=== PATIENT | male | born 1970 | race Caucasian/White ===

== ENCOUNTER 2016-03-24 01:59 | Inpatient (IN) | payer OTHER ==
[2016-03-24] VITALS (28 sets, daily range): BP systolic 140–178; BP diastolic 70–83; PULSE 82–93; TEMP 36.5–37.7; O2SAT 86–95; Ht 177.8 cm; Wt 112.8 kg
[~2016-03-24] VITALS: Ht 177.8 cm; Wt 112.8 kg
[2016-03-24] MEDS ORDERED: INSU1.2I SQ (03:07)
[2016-03-24] MEDS ORDERED: LABE1TAB28 PO (03:07)
[2016-03-24] MEDS ORDERED: PLV75 PO (03:07)
[2016-03-24] MEDS ORDERED: APR25 PO (03:07)
[2016-03-24] MEDS ORDERED: ATOR-26 PO (03:07)
[2016-03-24] MEDS ORDERED: FAMO20TA11 PO (03:07)
[2016-03-24] MEDS ORDERED: NRV/10 PO (03:07)
[2016-03-24] MEDS ORDERED: ASPI-435 PO (03:07)
[2016-03-24] MEDS ORDERED: SODI650T8 (03:07)
[2016-03-24] MEDS ORDERED: ACETAMINOPHEN 325 MG TAB PO PRN (03:15)
[2016-03-24] MEDS ORDERED: POLYETHYLENE (MIRALAX) 17 GM PACK PO PRN (03:15)
[2016-03-24] MEDS ORDERED: NITROGLYCERIN 0.4 MG SL PER TAB CHARGE SL PRN (03:15)
[2016-03-24] MEDS ORDERED: ALUMINUM/MAGNESIUM/SIMETH (MAALOX MAX) 30 ML UDC PO PRN (03:15)
[2016-03-24] MEDS ORDERED: MAGNESIUM HYDROXIDE SUSP 30 ML UDC PO PRN (03:15)
[2016-03-24] MEDS ORDERED: ONDANSETRON INJ 2 MG/ML 2 ML VIAL IV PRN (03:15)
[2016-03-24] MEDS ORDERED: ALBUT/IPRATROP 3MG/0.5MG NEB 3 ML VIAL INH ONE (03:36)
--- NOTE | 2016-03-24 03:36 | History and Physical ---
History & Physical Date & Time of Service: Mar 24, 2016 at 03:20 Chief Complaint: Hypoxia, Chf, Pneumonia Primary Care Physician: No Doctor, Assigned History of Present Illness Source: patient Ryna Walker is a 45 year old male with type 2 diabetes, CKD (reports last eGFR was 19, had mapping for dialysis), CAD s/p cardiac stents 6 months ago, who presents via [facility] for evaluation of his shortness of breath / CHF exacerbation and nephrology expertise. He was recently admitted to [facility] for a week and was discharged last Sunday. After discharge, he went home, and reportedly became more short of breath and dizzy. He then went back to [facility] yesterday and was given Lasix 40mg IV and Levaquin 750mg IV. His creatinine was found to be 4.8 with a eGFR of 14. His hemoglobin was 8.4 and MCV 83. His Troponin was 0.029 and CPK 599 with a CKMB of 9.3. He was apparently saturating in the high 70%s on room air and this was improved to the low 90's on 6L nasal cannula. His BNP was 4528. He was transferred to [facility] due to lack of beds at [facility] and need for Nephrology consultation. He reports during his hospital admission he had a colonoscopy to evaluate for a cause of persistent diarrhea. He reports he had three episodes of C Diff in the last year or so, but a colonoscopy was contra-indicated at that time, so had it last week. When drinking contrast he was found to have worsening renal function. He does not remember other details but he apparently was started on Labetalol and Sodium bicarbonate tablets. His BP regime also includes amlodipine. Currently, he reports his breathing feels well. He denies any chest pain, abdominal pain, or urinary issues. Past Medical/Surgical History PMHx: T2DM Hypertension Hyperlipidemia CKD stage V Coronary artery disease s/p cardiac stents PSHx: "Foot surgery" Family History Father from [place], Mother from stroke. Both in their 60s. Social History Smoking Status: Former Smoker Marital Status: in relationship Allergies Coded Allergies: Codeine (Verified Adverse Reaction, Unknown, DELIRIUM, 03/24/16) PT REPORTS AGGRESSIVE BEHAVIORS. Home Medications Scheduled Atorvastatin (Lipitor), 80 MG PO DAILY Hydralazine Hcl (Apresoline), 25 MG PO TID Miscellaneous Medications Amlodipine Besylate (Amlodipine Besylate) Aspirin (Aspirin 81) Clopidogrel Bisulfate (Clopidogrel) Famotidine (Pepcid), 20 MG PO Insulin Glargine (Toujeo Solostar) Labetalol (Normodyne), 200 MG PO Sodium Bicarbonate (Sodium Bicarbonate) Review of Systems See HPI for pertinent positives & negatives. A total of 10 systems reviewed and were otherwise negative. Physical Exam Vital Signs Date Time Temp Pulse Resp B/P Pulse Ox O2 Delivery O2 Flow Rate FiO2 03/24/16 02:28 36.7 86 24 140/81 93 Nasal Cannula 5.0 General Appearance: WD/WN, no apparent distress, + obese Head: normocephalic, atraumatic Eyes: normal inspection ENT: hearing grossly normal Neck: supple, no JVD Respiratory/Chest: lungs clear, normal breath sounds, no respiratory distress, no accessory muscle use, + pertinent finding (on 6L) Cardiovascular: regular rate, rhythm, no murmur Abdomen/GI: normal bowel sounds, non tender, soft Back: no CVA tenderness, no muscle spasm Extremities/Musculoskelatal: no calf tenderness, + pedal edema (+1) Neurologic/Psych: alert, normal mood/affect, oriented x 3 Skin: no rash Diagnostics Laboratory Results Results Past 24 Hours Test 03/24/16 03:18 Range/Units Diagnostic Radiology CXR in [facility] - sent to radiology but report says bilateral infiltrates and small pleural effusions Normal EKG Impression Assessment and Plan Acute on chronic renal insufficiency - Received 40mg IV Lasix in [place], will wait to give more - Nephrology consult - Repeat labs, monitor BMP - Likely needs dialysis in [place]/home area Shortness of breath - Pulmonary edema vs pneumonia - Received 750mg IV Levaquin - will hold off on further antibiotics for now. Blood cultures were drawn at [place]. - Wean O2 as able to - Duonebs - May consider chest CT / Pulm consult in future Coronary artery disease s/p two stents, with mild troponin elevation. - Trend cardiac enzymes - Cardiac monitoring - Echo - Cardiology consult - Continue aspirin 81mg and plavix 75mg - Continue statin Type 2 DM - Glycemic consult - Lantus and sliding scale - BSG AC/HS FULL CODE HEPARIN, SCDs TELEMETRY Advanced Directives Existing Advance Directive: No Existing Living Will: No Existing Power of Cigar Packer: No VTE Prophylaxis VTE Risk Assessment Done? Y/N: Yes Risk Level: Moderate Resident Tracking Resident Involvement: Resident Care Provided Care Provided: Adult [facility] Assessment and Plan Attending Addendum: I have seen and examined this patient, have directed their medical care, have supervised the medical liaison, and agree with the H&P as noted above with the additions as noted below. History of Present Illness: The patient is a 45-year-old male with a past medical history of diabetes mellitus, CKD with recent vein mapping for potential dialysis, coronary artery disease status post 2 cardiac stents 6 months ago in [facility], who was accepted in transfer from [facility] after presenting there with shortness of breath and hypoxia with pulse ox into the 70s on room air, thought secondary to CHF and pneumonia. Prior to discharge in [facility] received Lasix 40 mg IV and Levaquin 750 mg IV. [facility] there included a hemoglobin of 8.4, creatinine 4.8, GFR 14, troponin 0.029, CK of 599 and CK-MB of 9.3, BNP of 4528. He was titrated there to 6 L nasal cannula O2 with pulse ox in the low to mid 90s. He most recently had been admitted to [facility] for one week, during which time he had a colonoscopy due to persistent diarrhea, with a history of C. difficile 3 in the past. 3 days after discharge from [facility], is when his symptoms of shortness of breath occurred and prompted his visit to [facility]. He reports that he has not required nasal cannula oxygen in the past improve his oxygenation. Review of Systems: The patient denies chest pain, palpitations, cough, vision change, hearing change, sore throat, fevers, chills, sweats, weight change, fatigue, nausea, vomiting, abdominal pain, pelvic pain, blood in urine or stool, dysuria, urinary frequency or urgency, lightheadedness, dizziness, headache, memory loss , rash, abnormal bruising or bleeding, imbalance, focal weakness, numbness or tingling in arms or legs, arthralgias or myalgias, back or neck pain, night sweats, or allergy symptoms. The review of systems is otherwise negative other than for that already noted above, and at least 10 systems have been reviewed. Physical Exam: The patient is awake, well-developed and adequately nourished, alert and oriented 3, normocephalic and atraumatic, lying in bed and in no acute distress. HEENT--PERRL, EOMI, mucous membranes moist, and oropharynx normal. Neck--supple, no JVD or bruits, thyroid normal, trachea midline, no adenopathy. Heart--normal S1 and S2, no extra beats, no murmurs, rubs or gallops. Lungs--clear bilaterally with good air movement, no respiratory distress, no accessory muscle use. Abdomen--normal bowel sounds and soft, nontender and nondistended, no hernias or masses, no organomegaly. Extremities--no cyanosis, clubbing or edema. There are good distal pulses b/l. Dermatologic--normal skin turgor, normal color, warm and dry, no abnormal lymph nodes, no rash. Neurologic--cranial nerves II through XII grossly intact, motor and sensory examination normal. Rheumatologic--normal range of motion, nontender, muscles and joints. Psychiatric--normal affect. Assessment and Plan: Hypoxia--presently is on 6 L nasal cannula O2. This was felt to be a combination of CHF exacerbation and pneumonia. He received Lasix 40 mg IV and levofloxacin 750 mg IV in [place]. We will perform episode laboratories, order a portable chest x-ray, place on Xopenex with that for nebulizers to use every 6 hours while awake and every 2 hours when necessary. He looks quite comfortable at this point, and and therefore will not more aggressively treat until we get some additional data, including laboratories.. Chronic kidney disease/hypertension with recent vein mapping performed at [facility]. We'll consult nephrology for their opinion regarding present were future needs for dialysis. Continue current regimen of amlodipine 10 mg by mouth daily, labetalol 200 mg by mouth twice a day, clopidogrel 75 mg by mouth daily, hydralazine 25 mg by mouth 3 times a day, and aspirin 81 mg by mouth daily. Elevated troponin--he is being admitted to the telemetry unit for serial cardiac enzymes, cardiac rhythm monitoring and a 2-D echogram with Dopplers. We will consult cardiology. Diabetes mellitus--place on Accu-Cheks before meals and at bedtime with NovoLog coverage, consult pharmacy regarding Toujeo. Hypercholesterolemia--continue atorvastatin 80 mg by mouth daily.
[2016-03-24 03:44] LABS: URINE APPEARANCE CLEAR (CLEAR); URINE BILIRUBIN NEG (NEG); URINE COLOR YELLOW; URINE EPITHELIAL CELL AUTO 20-30 /lpf (0-5); URINE NITRITE NEG (NEG); URINE SPECIFIC GRAVITY 1.005 (1.000-1.030); UROBILINOGEN NEG (NEG)
[2016-03-24 03:45] LABS: MANUAL MICROSCOPIC REQUIRED? NO; REVIEW REQ? NO
[2016-03-24] MEDS ORDERED: PHARMACY GLYCEMIC MGMT CONSULT PRN (03:49)
[2016-03-24] MEDS: NITROGLYCERIN OINT 2% 1GM PACKET EXT SCH ×4 (04:21→21:21)
[2016-03-24] MEDS ORDERED: IV FLUIDS COMPLETED PRN (04:30)
[2016-03-24] MEDS ORDERED: GLUCAGON FOR INJ 1 MG VIAL SQ PRN (05:00)
[2016-03-24] MEDS ORDERED: GLUCOSE 10 TABS/TUBE PO PRN (05:00)
[2016-03-24] MEDS ORDERED: DEXTROSE 50% 50 ML SYR IV PRN (05:00)
[2016-03-24] MEDS ORDERED: GLUCOSE 40% GEL 15 GM TUBE PO PRN (05:00)
[2016-03-24 05:12] LABS: INFLUENZA A PCR Neg for Influ A (NEG); INFLUENZA B PCR Neg for Influ B (NEG)
[2016-03-24 06:57] LABS: BASO % 0.4 %; BASO ABS # 0.04 K/uL (0-0.2); EOS % 0.8 %; HEMATOCRIT 22.6 % (42-52); IG% 0.2 %; LYMPH % 7.1 %; LYMPH ABS # 0.72 K/uL (1.2-3.4); MEAN CELL VOLUME 81.3 fL (80-100); MEAN CORPUSCULAR HEMOGLOBIN 27.3 pg (25-34); MEAN CORPUSCULAR HGB CONC 33.6 g/dl (32-36); MONO % 9.9 %; NEUT % 81.6 %; PLATELET COUNT 198 K/uL (130-400); RED BLOOD COUNT 2.78 M/uL (4.7-6.1); WHITE BLOOD COUNT 10.09 K/uL (4.8-10.8)
[2016-03-24 07:04] LABS: PROTHROMBIN TIME (PATIENT) 11.1 SECONDS (9.0-12.0)
[2016-03-24 07:13] LABS: ESTIMATED AVERAGE GLUCOSE 169 mg/dl; HA1C FLAG Normal (Normal)
--- NOTE | 2016-03-24 07:25 | DIAGNOSTIC IMAGING REPORT ---
CHEST ONE VIEW PORTABLE CLINICAL HISTORY: Congestive heart failure post Lasix. COMPARISON STUDY: Chest radiograph March 23, 2016. FINDINGS: Lung volumes are normal. There is no pneumothorax. No pleural effusion is identified. Dense right perihilar opacity persists. Diffuse interstitial thickening has increased. Right upper lobe opacity is noted. IMPRESSION: Progression of diffuse interstitial thickening and multifocal bilateral airspace opacities with dense right perihilar airspace opacity. The findings favor pulmonary edema although bilateral pneumonia could appear similar. Radiographic follow up is recommended. Electronically signed by: Manolo Shelton M.D. 03/24/2016 7:24 AM Dictated Date/Time: 03/24/2016 7:23 AM
[2016-03-24] MEDS: ALBUT/IPRATROP 3MG/0.5MG NEB 3 ML VIAL INH SCH ×4 (07:32→19:54)
[2016-03-24 07:43] LABS: COMPLETE YES
[2016-03-24 07:46] LABS: ALB/GLOB RATIO 0.5 (0.9-2); BUN/CREATININE RATIO 11.2 (10-20); CALCIUM 7.8 mg/dl (8.5-10.1); CREATININE 4.7 mg/dl (0.60-1.40); POTASSIUM 5.3 mmol/L (3.5-5.1)
[2016-03-24] MEDS: ASPIRIN 81 MG ECTAB PO SCH (07:57)
[2016-03-24] MEDS: SODIUM BICARBONATE 650 MG TAB PO SCH (07:57)
[2016-03-24] MEDS: FAMOTIDINE 20 MG TAB PO SCH (07:57)
[2016-03-24] MEDS: CLOPIDOGREL BISULFATE 75 MG TAB PO SCH (07:57)
[2016-03-24] MEDS: LABETALOL HCL 200 MG TAB PO SCH (07:58)
[2016-03-24] MEDS: AMLODIPINE BESYLATE 5 MG TAB PO SCH (07:58)
[2016-03-24] MEDS: ATORVASTATIN 40 MG TAB PO SCH (07:58)
[2016-03-24] MEDS: INSULIN ASPART 100 UNITS/ML 3 ML PEN SC SCH ×4 (07:59→21:23)
[2016-03-24] MEDS ORDERED: INSULIN GLARGINE SOLOSTAR 100 UNITS/ML 3 ML PEN SC SCH (09:00)
--- NOTE | 2016-03-24 09:44 | Pharmacy Progress Note ---
Glycemic Control Intl Consult Date of Service Mar 24, 2016. Scope Glycemic Pharmacist consulted by Dr Martinez on 03/24/16 for glycemic control and to write orders per [facility] inpatient glycemic control protocol Objective Weight (Kilograms): 119.000 Accuchecks BSG (last 24hrs): Test 03/24/16 05:56 03/24/16 06:03 Random Glucose 153 mg/dl (70-99) Bedside Glucose 155 mg/dl (70-99) Laboratory Data (last 24hrs) Test 03/24/16 05:56 Anion Gap 10.0 mmol/L BUN/Creatinine Ratio 11.2 Blood Urea Nitrogen 53 mg/dl Creatinine 4.70 mg/dl Hemoglobin A1c 7.5 % Potassium Level 5.3 mmol/L Sodium Level 138 mmol/L White Blood Count 10.09 K/uL Red Blood Count 2.78 M/uL Hemoglobin 7.6 g/dL Hematocrit 22.6 % Mean Corpuscular Volume 81.3 fL Mean Corpuscular Hemoglobin 27.3 pg Mean Corpuscular Hemoglobin Concent 33.6 g/dl Platelet Count 198 K/uL Mean Platelet Volume 10.0 fL Neutrophils (%) (Auto) 81.6 % Lymphocytes (%) (Auto) 7.1 % Monocytes (%) (Auto) 9.9 % Eosinophils (%) (Auto) 0.8 % Basophils (%) (Auto) 0.4 % Neutrophils # (Auto) 8.23 K/uL Lymphocytes # (Auto) 0.72 K/uL Monocytes # (Auto) 1.00 K/uL Eosinophils # (Auto) 0.08 K/uL Basophils # (Auto) 0.04 K/uL HbA1c Test 03/24/16 05:56 Hemoglobin A1c 7.5 % (4.5-5.6) H Recent Pertinent Medications Outpatient Anti-diabetic Regimen: * Toujeo 80 units SQ QAM * A1c = 7.5 % 03/24/16 Risk Factors for Insulin Resistance: * Diet: Type 2 DM/ Renal/ Low Na Assessment & Plan ASSESSMENT: * ADA & AACE recommend a goal blood sugar range 140-180 mg/dl for the majority of critically ill & non-critically ill patients. However, more stringent targets may be selected in individual cases. Goal 110-140mg/dl for patient's age and A1c. * Type 2 diabetic admitted with SOB, pulmonary edema vs pneumonia. On Toujeo at home, non-formulary, will change patient to Lantus and Novolog. * Recent admission to [facility] last week. PMH = CKD, SCr=4.7mg/dL, CAD s /p cardiac stents 6 mo ago. PLAN FOR INPATIENT GLYCEMIC CONTROL: * Basal insulin with LANTUS 64 units SQ x1 today (80% of Toujeo dose for first dose of Lantus), then, * Lantus 80 units SQ daily starting tomorrow morning * Correctional Insulin with NOVOLOG per scale ACHS or Q6hrs while NPO * Goal Range: Low 110 mg/dL - High 140 mg/dL * Correction Factor: 20 mg/dL/unit * Nutritional / Prandial insulin per carb ratio of 1 unit per 7 grams CHO consumed * Please note that the plan above was derived based on current level of insulin resistance and hospital stress. These recommendations are appropriate for inpatient admission only. Plan of care upon discharge will need to be reassessed to avoid potential outpatient hypo/hyperglycemia. Thank you.
[2016-03-24] MEDS ORDERED: FUROSEMIDE INJ 80 MG in SYRINGE 0 ML IV SCH (10:15)
[2016-03-24] MEDS: PERFLUTREN LIPID MICROSPHERE (DEFINITY) IV ONE ×2 (10:33→10:34)
[2016-03-24] MEDS ORDERED: PERFLUTREN LIPID MICROSPHERE (DEFINITY) IV ONE (10:46)
--- NOTE | 2016-03-24 10:50 | Nephrology Consultation ---
Nephrology Consultation Date & Providers Date of Consultation: Mar 24, 2016. Primary Care Provider: Naima Doctor, Assigned Referring Provider: Reason for Consultation Evaluate need to start HD in this patient with advanced diabetic nephropathy History of Present Illness Mr. Walker is a 45 year old white male who is seen at the request of Dr. Martinez to assess the need to start HD. 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 He has been poorly compliant with his insulin therapy. Medical records in office EMR from 2014 show that his BSG had averaged 300 mg/ dl. His serum creatinine at that time was 2.2. Mr. Walker has HTN, obesity, hyperlipidemia, hypercholesterolemia, asthma, recurrent READ and h/o clostridium difficile colitis. Mr. Walker resides in [place], [place]. His PCP is Dr. Stanley Epps. Recently he established nephrology care with Dr. Cain ([facility] in [place], [place]). He was told that his kidney function was 19%. He completed vein mapping for an AVF and began discussing home dialysis options. Mr. Walker states that over the last two weeks he began to experience diarrhea. He had laboratory studies performed by Dr. Cain and was then contacted at home and advised to proceed to the nearest hospital. Patient went to [facility] but then left the ED to be evaluated at [facility]. He reports that he was hydrated and kidney function improved. Colonoscopy was performed. Two benign polyps were removed. The patient was discharged to home. The next day he became progressively dyspneic. His girlfriend called 911. Patient was told that both [facility] and [place] [facility] were full. He was taken to [facility] and subsequently transferred to [facility] to assess the need to start HD. Mr. Walker is currently breathing comfortably on O2 at 5 L / min NC. He currently denies angina or nausea. He does endorse LE edema. This is a new finding for him. He currently denies fever or productive cough. Past Medical/Surgical History Medical: # Diabetic nephropathy # AODM w/ retinopathy # HTN # Obesity # Hypercholesterolemia / Hypertriglyceridemia # Recurrent READ # GERD # Asthma # Smokeless tobacco use Surgical: # Resection proximal phalanx of left 5th toe Allergies Coded Allergies: Codeine (Verified Adverse Reaction, Unknown, DELIRIUM, 03/24/16) PT REPORTS AGGRESSIVE BEHAVIORS. Inpatient Medications Current Inpatient Medications Medications (Trade) Dose Ordered Sig/Willie Route Start Time Stop Time Status Last Admin Dose Admin Heparin Sodium (Porcine) (Heparin Sq 5000 Unit/0.5ml) 5,000 unit Q8 SQ 03/24/16 14:00 04/23/16 13:59 Acetaminophen (Tylenol Tab) 650 mg Q4H PRN PO 03/24/16 03:15 04/23/16 03:14 Al Hydrox/Mg Hydrox/Simethicone (Maalox Max Susp) 15 ml Q4H PRN PO 03/24/16 03:15 04/23/16 03:14 Magnesium Hydroxide (Milk Of Magnesia Susp) 30 ml Q12H PRN PO 03/24/16 03:15 04/23/16 03:14 Ondansetron HCl (Zofran Inj) 4 mg Q6H PRN IV 03/24/16 03:15 04/23/16 03:14 Nitroglycerin (Nitrostat Tab) 0.4 mg UD PRN SL 03/24/16 03:15 04/23/16 03:14 Nitroglycerin (Nitroglycerin 2% Oint) 1 inch Q6H EXT 03/24/16 04:00 04/23/16 03:59 03/24/16 04:21 1 INCH Polyethylene (Miralax Powder Packet) 17 gm DAILY PRN PO 03/24/16 03:15 04/23/16 03:14 Aspirin (Ecotrin Tab) 81 mg DAILY PO 03/24/16 09:00 04/23/16 08:59 03/24/16 07:57 81 MG Atorvastatin Calcium (Lipitor Tab) 80 mg DAILY PO 03/24/16 09:00 04/23/16 08:59 03/24/16 07:58 80 MG Clopidogrel Bisulfate (plAVix TAB) 75 mg DAILY PO 03/24/16 09:00 04/23/16 08:59 03/24/16 07:57 75 MG Famotidine (Pepcid Tab) 20 mg DAILY PO 03/24/16 09:00 04/23/16 08:59 03/24/16 07:57 20 MG Hydralazine HCl (Apresoline Tab) 25 mg TID PO 03/24/16 09:00 04/23/16 08:59 03/24/16 07:58 25 MG Labetalol HCl (Normodyne Tab) 200 mg DAILY PO 03/24/16 09:00 04/23/16 08:59 03/24/16 07:58 200 MG Sodium Bicarbonate (Sodium Bicarbonate Tab) 650 mg DAILY PO 03/24/16 09:00 04/23/16 08:59 03/24/16 07:57 650 MG Amlodipine Besylate (Norvasc Tab) 10 mg QAM PO 03/24/16 09:00 04/23/16 08:59 03/24/16 07:58 10 MG Miscellaneous Information (Consult Glycemic Management Pharmacy) 1 ea DAILY PRN N/A 03/24/16 03:49 04/23/16 03:48 Albuterol/ Ipratropium (Duoneb) 3 ml QIDR INH 03/24/16 08:00 04/23/16 07:59 03/24/16 07:32 3 ML Miscellaneous (Iv Fluids Completed) 1 ea PRN PRN N/A 03/24/16 04:30 03/24/17 04:29 Glucose (Glucose 40% Gel) 15-30 GRAMS 15 GRAMS... UD PRN PO 03/24/16 05:00 04/23/16 04:59 Glucose (Glucose Chew Tab) 4-8 Tablets 4 Tabl... UD PRN PO 03/24/16 05:00 04/23/16 04:59 Dextrose (Dextrose 50% 50ML Syringe) 25-50ML OF 50% DW IV FOR... UD PRN IV 03/24/16 05:00 04/23/16 04:59 Glucagon (Glucagon Inj) 1 mg UD PRN SQ 03/24/16 05:00 04/23/16 04:59 Insulin Glargine (Lantus Solostar Pen) 80 unit QAM SC 03/25/16 09:00 04/24/16 08:59 Insulin Aspart SLIDING SCALE ACHS SC 03/24/16 07:00 04/23/16 06:59 03/24/16 07:59 3 UNITS Furosemide 80 mg/ Syringe 8 ml @ 4 mls/min BID IV 03/24/16 21:00 04/23/16 20:59 UNV Furosemide/Syringe (Lasix Inj/ Syringe) 8 ml @ 4 mls/min 0958 ONCE IV 03/24/16 09:58 03/24/16 09:59 UNV Family History Negative for CKD/ESRD Social History Smoking Status: Former Smoker Marital Status: in relationship Single. Lives w/ girlfriend. No children. 9th grade education. 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 Now medically disabled. Denies alcohol use. Uses chewing tobacco. Review of Systems Constitutional: No fever Respiratory: + shortness of breath, No cough Cardiovascular: No chest pain Abdomen: No nausea, No pain, No vomiting Genitourinary - Male: No hematuria, No urinary retention Integumentary: No rash A complete review of systems was performed. Pertinent positives are noted above. All other systems are negative. Physical Exam Date Time Temp Pulse Resp B/P Pulse Ox O2 Delivery O2 Flow Rate FiO2 03/24/16 07:32 93 16 90 Nasal Cannula 5.0 03/24/16 07:29 37.1 89 22 159/80 93 Nasal Cannula 5.0 03/24/16 04:09 36.5 86 20 178/77 90 Nasal Cannula 5.0 03/24/16 04:03 84 16 91 Nasal Cannula 5.0 03/24/16 04:00 90 Nasal Cannula 5.0 03/24/16 02:28 36.7 86 24 140/81 93 Nasal Cannula 5.0 General Appearance: no apparent distress, + obese Head: normocephalic, atraumatic Eyes: PERRL, EOMI Neck: no adenopathy, + JVD Respiratory/Chest: + crackles (at bases bilaterally) Cardiovascular: regular rate, rhythm Abdomen/GI: non tender (obese, hypoactive bowel sounds), soft Extremities/Musculoskelatal: no calf tenderness, + swelling (1+ pretibial pitting edema) Neurologic/Psych: alert, oriented x 3 Laboratory Results Last 24 Hours Test 03/24/16 03:00 03/24/16 05:56 03/24/16 06:03 03/24/16 10:05 Urine Color YELLOW Urine Appearance CLEAR Urine pH 5.0 Urine Specific [place] 1.005 Urine Protein 3+ Urine Glucose (UA) 1+ Urine Ketones NEG Urine Occult Blood TRACE Urine Nitrite NEG Urine Bilirubin NEG Urine Urobilinogen NEG Urine Leukocyte Esterase NEG Urine WBC (Auto) 1-5 /hpf Urine RBC (Auto) 0-4 /hpf Urine Hyaline Casts (Auto) 5-10 /lpf Urine Epithelial Cells (Auto) 20-30 /lpf Urine Bacteria (Auto) NEG Influenza Type A (RT-PCR) Neg for Influ A Influenza Type B (RT-PCR) Neg for Influ B White Blood Count 10.09 K/uL Red Blood Count 2.78 M/uL Hemoglobin 7.6 g/dL Hematocrit 22.6 % Mean Corpuscular Volume 81.3 fL Mean Corpuscular Hemoglobin 27.3 pg Mean Corpuscular Hemoglobin Concent 33.6 g/dl Platelet Count 198 K/uL Mean Platelet Volume 10.0 fL Neutrophils (%) (Auto) 81.6 % Lymphocytes (%) (Auto) 7.1 % Monocytes (%) (Auto) 9.9 % Eosinophils (%) (Auto) 0.8 % Basophils (%) (Auto) 0.4 % Neutrophils # (Auto) 8.23 K/uL Lymphocytes # (Auto) 0.72 K/uL Monocytes # (Auto) 1.00 K/uL Eosinophils # (Auto) 0.08 K/uL Basophils # (Auto) 0.04 K/uL RDW Standard Deviation 42.0 fL RDW Coefficient of Variation 14.0 % Immature Granulocyte % (Auto) 0.2 % Immature Granulocyte # (Auto) 0.02 K/uL Red Blood Cell Morphology Unremarkable Prothrombin Time 11.1 SECONDS Prothromb Time International Ratio 1.0 Sodium Level 138 mmol/L Potassium Level 5.3 mmol/L Chloride Level 109 mmol/L Carbon Dioxide Level 19 mmol/L Anion Gap 10.0 mmol/L Blood Urea Nitrogen 53 mg/dl Creatinine 4.70 mg/dl Est Creatinine Clear Calc Drug Dose 25.1 ml/min Estimated GFR () 15.9 Estimated GFR (Non- 13.7 BUN/Creatinine Ratio 11.2 Random Glucose 153 mg/dl Estimated Average Glucose 169 mg/dl Hemoglobin A1c 7.5 % Calcium Level 7.8 mg/dl Total Bilirubin 0.4 mg/dl Aspartate Amino Transf (AST/SGOT) 13 U/L Alanine Aminotransferase (ALT/SGPT) 9 U/L Alkaline Phosphatase 86 U/L Total Creatine Kinase 508 U/L Creatine Kinase MB 10.2 ng/ml Creatine Kinase MB Ratio 2.0 Troponin I 0.033 ng/ml Total Protein 5.4 gm/dl Albumin 1.8 gm/dl Globulin 3.6 gm/dl Albumin/Globulin Ratio 0.5 Bedside Glucose 155 mg/dl Impression (1) FIDE (acute kidney injury) (2) Chronic kidney disease (3) CHF (congestive heart failure) (4) Anemia (5) Hypertension (6) Diabetes Mr. Walker was admitted to the hospital for management of CHF. 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 He may require initiation of HD. PMH: CKD, nephrotic syndrome, AODM, HTN, obesity, hypercholesterolemia / hyperlipidemia, asthma, recurrent READ, h/o clostridium difficile Recommendations CHRONIC KIDNEY DISEASE: -- Will request records from primary electric organ assembler and [facility] [place] -- Protect L arm for AVF creation -- Hold EVANGELINA inhibitor for now -- Discussed potential need for IJ THC insertion and initiation of HD. Indications/benefits/risks/alternatives to HD discussed w/ patient today. He voiced understanding. He is agreeable to a trial of diuretic therapy at this time HYPERTENSION: -- Patient has been started on hydralazine and labetalol by cardiology -- Continue amlodipine -- Monitor bp ANEMIA: -- Will check FOBT, iron studies -- Monitor H&H. Recommend transfusion if Hgb drops below 7.6 CHF: -- Start furosemide 80 mg IV BID -- Recheck CXR in am -- Await cardiology input
--- NOTE | 2016-03-24 11:23 | CARDIOLOGY CONSULTATION ---
DATE OF CONSULTATION: 03/24/2016 CONSULTATION REQUESTED BY: Dr. Castorena. REASON FOR CONSULTATION: Question heart failure. HISTORY OF PRESENT ILLNESS: Mr. Walker is a 45-year-old man with a history of type 2 diabetes, advanced chronic kidney disease, coronary artery disease, status post prior coronary stenting 6 months ago who was transferred from [facility] last night in the setting of worsening shortness of breath. Cardiology consulted for further management recommendations regarding possible heart failure. The patient is followed by a optical lab technician in [place]. His prior stent was placed by Dr. Beltran at [place]. His recent history is remarkable for worsening diarrhea approximately a week ago. The patient states that at baseline has multiple episodes of diarrhea a day and has been planning to have a GI workup for some time. Due to worsening symptoms, he was admitted to [place] where was noted to have worsening kidney dysfunction. He eventually underwent a colonoscopy which per patient report showed only polyps. In the setting of his bowel prep, kidney function again worsened, but was eventually discharged on Sunday, 2 days ago with per patient report a creatinine of 3.8. The following day, patient states he began feeling more fatigued, more short of breath and as a result presented back to [place] [facility]. He denies any precipitating chest pain. Denies any palpitations. He does report some subjective chills but no significant fever. Denies any worsening of edema or orthopnea. In the Emergency Department at [place] he was noted to be saturating in the high 70s on room air, and was placed on 6 liters of nasal cannula. His creatinine was elevated at 4.8. He had initial troponin that was normal at 0.02. He was given 40 mg of IV Lasix as well started on Levaquin before being transferred to [facility] for further management. With regard to his prior cardiac history, the patient states that he had an echocardiogram approximately 6 months ago which was abnormal, which prompted the heart catheterization. He states that his prior stent was placed to the artery in the back of his heart. Since that time, he has had no significant angina or significant change in his exercise tolerance. PAST MEDICAL HISTORY: 1. Type 2 diabetes, diagnosed with diabetes approximately 18 or 19 years ago. 2. Coronary artery disease, status post prior stent placement 6 months ago. 3. Hypertension. 4. Hyperlipidemia. 5. Chronic kidney disease stage 4-V. PAST SURGICAL HISTORY: Prior colonoscopy, prior PCI, prior "foot surgery." FAMILY HISTORY: Mom and dad both had diabetes. Father from an UT in his 60s. Mother from a stroke in her 60s. SOCIAL HISTORY: The patient lives with his girlfriend. He has not worked for the last 4 years, is attempting to get disability with his medical issues. He denies ever being a cigarette smoker. Recently he quit chewing tobacco earlier this month. Denies heavy alcohol use. Denies any illicit drugs. ALLERGIES: ALLERGIC TO CODEINE. HOME MEDICATIONS: Include atorvastatin 80, hydralazine 25 mg p.o. t.i.d., amlodipine 10, aspirin 81, clopidogrel 75, famotidine, insulin Glargine, labetalol and sodium bicarbonate. REVIEW OF SYSTEMS: A 10-point review of systems was completed and otherwise negative unless stated in HPI. PHYSICAL EXAMINATION: VITAL SIGNS: Temperature 37.1, pulse 89, blood pressure 159/80, he is satting 93% on 5 liters. GENERAL: The patient appears comfortable in no acute distress. HEENT: His sclerae are anicteric. His oropharynx is clear. His mucous membranes are moist. NECK: Supple. He has no lymphadenopathy. He has no carotid bruits. JVD difficult to assess but appears to be approximately 7 or 8. LUNGS: Distant lung sounds are generally clear. Decreased at the bases. HEART: He is regular again with distant heart sounds but no appreciable murmurs, rubs or gallops. ABDOMEN: Soft, nontender. He has positive bowel sounds. EXTREMITIES: Warm. He has at most trace lower extremity edema to his ankles, has past intact distal pulses. SKIN: Shows no rashes or lesions. NEUROLOGIC: Cranial nerves II through XII are grossly intact. Remainder of exam is nonfocal. PSYCHIATRIC: He is alert and oriented x3. His mood and affect are appropriate. LABORATORY DATA: Hemoglobin of 7.6, white blood cell count 10, platelets 198. Sodium 138, potassium 5.3, chloride 109, bicarbonate 19, BUN 53, creatinine of 4.7. He has got an A1c of 7.5, calcium of 7.8, his albumin is 1.8. His total CK is 508. CK-MB is 10.2 and initial troponin is negative at 0.03. CK-MB ratio normal at 2. LFTs within normal limits. IMAGING: Chest x-ray showed progression of diffuse interstitial thickening and multifocal bilateral airspace opacities favoring pulmonary edema versus bilateral pneumonia. IMPRESSION AND PLAN: 1. End-stage renal disease, chronic kidney disease stage 4-5. 2. Respiratory failure, questionable pulmonary edema versus pneumonia. 3. History of coronary artery disease, status post prior percutaneous coronary intervention with stent 6 months ago. 4. Type 2 diabetes. 5. Hypertension. 6. Anemia The patient's respiratory status seems improved from symptoms reported on admission. Chest x-ray remarkable for questionable pulmonary edema versus pneumonia. From a cardiac standpoint, no recurrent chest pain, cardiac enzymes have been negative and low suspicion for ACS. Suspect pulmonary edema more related to patients renal failure rather than primary heart failure. Going forward recommend further diuretics per nephrology service. With history of CAD post stent 6 months ago would current dual antiplatelet therapy. Continuing current antihypertensives. Echocardiogram ordered and we will follow up on results. We will continue to follow while in the hospital. Thank you for allowing us to participate in the care of patient. Please contact with any questions. CHERELLE
[2016-03-24 11:37] LABS: CKMB/CK RATIO 1.8 (0-3.0)
[2016-03-24 11:57] LABS: FERRITIN 249.2 ng/ml (8.0-388.0)
[2016-03-24 13:11] LABS: URINE PROTIEN/CREAT RATIO 5.3 (0-0.2); URINE TOTAL PROTEIN 375.4 mg/dl (0-11.9)
[2016-03-24] MEDS: HEPARIN SOD 5000 UNIT/0.5 ML CARP SQ SCH ×2 (14:15→21:23)
--- NOTE | 2016-03-24 14:44 | Progress Note ---
Progress Note Patient seen and examined. He is comfortable in regards to his breathing. He has no complaints at this time. He tells me that he has been in 4 different hospitals in the past 9 days. He appears stable at this time. He was admitted early this am. Continue diuresis.
[2016-03-24] MEDS ORDERED: DiphenhydrAMINE HCL 50 MG/ML VIAL IV PRN (16:15)
--- NOTE | 2016-03-24 16:30 | ECHOCARDIOGRAM REPORT ---
*NOTICE TO RECEIVING DEMOCRAT AGENCY This information is strictly Confidential and protected under [place] law. [place] law prohibits you from making any further disclosure of this information unless further disclosure is expressly permitted by the written consent of the person to whom it pertains or is authorized by law. A general authorization for the release of medical or other information is not sufficient for this purpose. Hospital accepts no responsibility if the information is made available to any other person, INCLUDING THE PATIENT. Interpretation Summary * Name: HESHAM PHILLIPS Study Date: 03/24/2016 11:00 AM BP: 178/77 mmHg * Patient Location: S237 HR: 86 * : 1970 (M/d/yyyy) Gender: Male Height: 70 in * Age: 45 yrs Ethnicity: CA Weight: 253 lb * Ordering Physician: Netta Martinez * Performed By: Beverly Shah RCS * * Reason For Study: Elevated Troponins * BSA: 2.3 m2 * -- Conclusions -- * 1. Normal LV size. Mild concentric LVH. * 2. Normal LV systolic function. LVEF 60-65%. No regional wall motion abnormalities. * 3. Normal RV size and function. * 4. No significant valvular pathology. * 5. Normal estimated PA and RA pressures. * 6. No prior studies for comparison. Procedure Details * A complete two-dimensional transthoracic echocardiogram was performed (2D, M-mode, Doppler and color flow Doppler). * A contrast injection of Definity was performed to improve assessment of LV function. * Contrast was injected into an intravenous site in the right arm. * One vial of Definity ultrasound contrast was diluted in normal saline to a total volume of 10 ml. A total of '1' ml of solution was administered during imaging. * Lot # [id number] of Definity utilized for procedure. * Expiration date 1DEC. * The attending nurse who injected the contrast agent was Nadege Bui RN. Left Ventricle * The left ventricle is grossly normal size. * There is mild concentric left ventricular hypertrophy. * Ejection Fraction = 60-65%. * No regional wall motion abnormalities noted. Right Ventricle * The right ventricle is grossly normal size. * The right ventricular systolic function is normal as assessed by tricuspid annular plane systolic excursion (TAPSE) (normal >1.5 cm). Atria * Borderline left atrial enlargement. * Right atrial size is normal. * No ASD detected; PFO is not assessed. Mitral Valve * The mitral valve is grossly normal. * Mitral stenosis is absent. * There is trace mitral regurgitation. Tricuspid Valve * The tricuspid valve is not well visualized, but is grossly normal. * Tricuspid stenosis is absent. * There is trace tricuspid regurgitation. Aortic Valve * The aortic valve opens well. * No hemodynamically significant valvular aortic stenosis. * There is no significant aortic regurgitation. Pulmonic Valve * The pulmonary valve is inadequately visualized, but the Doppler data is adequate for interpretation. * There is no pulmonic valvular stenosis. * Trace pulmonic valvular regurgitation. Great Vessels * The aortic root and proximal ascending aorta are normal sized. Pericardium/Pleural * There is no pericardial effusion. Great Vessels * Normal inferior vena cava size and collapsability with sniff indicates a normal right atrial pressure of 3 mmHg MMode 2D Measurements and Calculations IVSd 1.2 cm LVIDd 5.1 cm LVIDs 3.2 cm LVPWd 1.1 cm LVPWs 1.5 cm IVS/LVPW 1.1 FS 38.1 % EDV(Teich) 123.5 ml ESV(Teich) 39.5 ml EF(Teich) 68.0 % EDV(cubed) 132.2 ml ESV(cubed) 31.4 ml EF(cubed) 76.3 % % LVPW thick 30.4 % LV mass(C)d 232.5 grams LV mass(C)dI 100.8 grams/m\S\2 SV(Teich) 84.0 ml SI(Teich) 36.4 ml/m\S\2 SV(cubed) 100.9 ml SI(cubed) 43.7 ml/m\S\2 Ao root diam 3.5 cm Ao root area 9.5 cm\S\2 ACS 1.4 cm LA dimension 4.8 cm LA/Ao 1.4 EDV(MOD-sp4) 118.7 ml ESV(MOD-sp4) 52.5 ml EF(MOD-sp4) 55.8 % LVAd ap2 47.8 cm\S\2 LVLd ap2 10.8 cm EDV(MOD-sp2) 173.6 ml EDV(sp2-el) 179.6 ml LVAs ap2 26.1 cm\S\2 LVLs ap2 8.5 cm ESV(MOD-sp2) 67.5 ml ESV(sp2-el) 67.6 ml EF(MOD-sp2) 61.1 % EF(sp2-el) 62.4 % SV(MOD-sp4) 66.2 ml SI(MOD-sp4) 28.7 ml/m\S\2 SV(MOD-sp2) 106.1 ml SI(MOD-sp2) 46.0 ml/m\S\2 SV(sp2-el) 112.0 ml SI(sp2-el) 48.6 ml/m\S\2 Doppler Measurements and Calculations MV E max doretha 112.3 cm/sec MV A max doretha 83.2 cm/sec MV E/A 1.3 MV P1/2t max doretha 152.2 cm/sec MV P1/2t 67.9 msec MVA(P1/2t) 3.2 cm\S\2 MV dec slope 656.6 cm/sec\S\2 MV dec time 0.24 sec Ao V2 max 180.8 cm/sec Ao max PG 13.1 mmHg Ao max PG (full) 7.7 mmHg LV V1 max PG 5.3 mmHg LV V1 max 115.4 cm/sec PA V2 max 105.6 cm/sec PA max PG 4.5 mmHg PI max doretha 217.4 cm/sec PI max PG 18.9 mmHg PI dec slope 139.8 cm/sec\S\2 PI P1/2t 455.6 msec TR max doretha 173.7 cm/sec
[2016-03-24 17:00] LABS: BUN/CREATININE RATIO 10.8 (10-20); CALCIUM 8.1 mg/dl (8.5-10.1); CKMB/CK RATIO 1.8 (0-3.0); CREATININE 5.1 mg/dl (0.60-1.40); POTASSIUM 4.8 mmol/L (3.5-5.1)
[2016-03-24] MEDS: FUROSEMIDE INJ 80 MG in SYRINGE 0 ML IV SCH (17:13)
[2016-03-25] VITALS (9 sets, daily range): BP systolic 151–166; BP diastolic 67–83; PULSE 83–93; TEMP 36.8–37.7; O2SAT 89–95
[2016-03-25] MEDS: NITROGLYCERIN OINT 2% 1GM PACKET EXT SCH ×4 (04:07→20:49)
[2016-03-25] MEDS: HEPARIN SOD 5000 UNIT/0.5 ML CARP SQ SCH ×3 (06:16→20:49)
[2016-03-25 06:42] LABS: BASO % 0.4 %; BASO ABS # 0.03 K/uL (0-0.2); EOS % 2.3 %; HEMATOCRIT 23.7 % (42-52); IG% 0.4 %; LYMPH % 12.7 %; MEAN CELL VOLUME 82.3 fL (80-100); MEAN CORPUSCULAR HEMOGLOBIN 27.4 pg (25-34); MEAN CORPUSCULAR HGB CONC 33.3 g/dl (32-36); MEAN PLATELET VOLUME 9.8 fL (7.4-10.4); MONO % 12.8 %; NEUT % 71.4 %; PLATELET COUNT 200 K/uL (130-400); RED BLOOD COUNT 2.88 M/uL (4.7-6.1); WHITE BLOOD COUNT 7.87 K/uL (4.8-10.8)
[2016-03-25 07:13] LABS: PROTHROMBIN TIME (PATIENT) 10.3 SECONDS (9.0-12.0)
[2016-03-25] MEDS: ALBUT/IPRATROP 3MG/0.5MG NEB 3 ML VIAL INH SCH (07:21)
--- NOTE | 2016-03-25 07:32 | DIAGNOSTIC IMAGING REPORT ---
CHEST ONE VIEW PORTABLE CLINICAL HISTORY: Congestive failure COMPARISON STUDY: 03/24/2016 FINDINGS: The cardiac and mediastinal contours remain stable. There is slight improvement in the interstitial edema pattern. There are more focal airspace opacities in the right perihilar region. Diagnostic considerations include pneumonia versus focal edema. Continued radiographic follow-up is recommended.[ IMPRESSION: 1. Slight improvement in the interstitial edema pattern. Persistent focal right perihilar airspace opacities (pneumonia versus focal edema). Electronically signed by: Bradly Barron M.D. 03/25/2016 7:31 AM Dictated Date/Time: 03/25/2016 7:30 AM
[2016-03-25 07:33] LABS: COMPLETE YES
[2016-03-25 07:46] LABS: ALB/GLOB RATIO 0.5 (0.9-2); CALCIUM 8.1 mg/dl (8.5-10.1); POTASSIUM 4.4 mmol/L (3.5-5.1)
[2016-03-25 07:51] LABS: CREATININE 5.4 mg/dl (0.60-1.40)
[2016-03-25 07:52] LABS: BUN/CREATININE RATIO 11.7 (10-20)
[2016-03-25] MEDS: SODIUM BICARBONATE 650 MG TAB PO SCH (08:55)
[2016-03-25] MEDS: LABETALOL HCL 200 MG TAB PO SCH (08:55)
[2016-03-25] MEDS: FAMOTIDINE 20 MG TAB PO SCH (08:55)
[2016-03-25] MEDS: ATORVASTATIN 40 MG TAB PO SCH (08:56)
[2016-03-25] MEDS: ASPIRIN 81 MG ECTAB PO SCH (08:56)
[2016-03-25] MEDS: CLOPIDOGREL BISULFATE 75 MG TAB PO SCH (08:56)
[2016-03-25] MEDS: AMLODIPINE BESYLATE 5 MG TAB PO SCH (08:56)
[2016-03-25] MEDS ORDERED: INSULIN GLARGINE SOLOSTAR 100 UNITS/ML 3 ML PEN SC SCH ×3 (09:00)
[2016-03-25] MEDS: INSULIN ASPART 100 UNITS/ML 3 ML PEN SC SCH ×4 (09:04→20:43)
[2016-03-25] MEDS: FUROSEMIDE INJ 80 MG in SYRINGE 0 ML IV SCH ×2 (10:04→17:25)
--- NOTE | 2016-03-25 11:25 | Nephrology Progress Note ---
Nephrology Progress Note Date of Service Mar 25, 2016. Chief Complaint Evaluate need to start HD in this patient with advanced diabetic nephropathy Subjective Mr. Walker was seen & examined in his hospital room this morning. He was admitted for evaluation of CHF. He has diuresed 1.5 L in response to IV furosemide therapy. He reports that his breathing is subjectively improved. The patient has diabetic nephropathy and is nearing ESRD. Outpatient records show Cr 3.4 earlier this month. Patient is interested in CAPD but understands that he will likely need to start HD acutely. Mr. Walker was recently hospitalized at [facility] for evaluation of diarrhea. Colonoscopy revealed several polyps. Patient reports that diarrhea has resolved. Review of Systems Constitutional: No fever Cardiovascular: No chest pain Respiratory: + dyspnea on exertion, No dyspnea at rest Abdomen: No pain Extremities: No leg edema A complete review of systems was performed. Pertinent positives are noted above. All other systems are negative. Vital Signs Last 8 Hrs Date Time Temp Pulse Resp B/P Pulse Ox O2 Delivery O2 Flow Rate FiO2 03/25/16 10:55 37.2 91 22 151/71 92 Nasal Cannula 6.0 Humidified Oxygen 03/25/16 08:08 37.2 93 24 165/83 90 Nasal Cannula 6.0 Humidified Oxygen 03/25/16 08:00 Nasal Cannula 6.0 03/25/16 07:38 77 95 03/25/16 07:22 88 16 94 Nasal Cannula 6.0 03/25/16 04:12 37.1 89 18 161/77 92 Nasal Cannula 6.0 03/25/16 04:00 92 Nasal Cannula 6.0 I & O 24-Hour Column 03/25/16 07:59 Intake Total 1480 ml Output Total 2950 ml Balance -1470 ml Last Recorded Weight Weight (Kilograms): 113.500 Physical Exam General Appearance: no apparent distress, + obese Head: normocephalic, atraumatic Eyes: PERRL, EOMI Neck: no adenopathy Respiratory/Chest: + crackles (at bases bilaterally) Cardiovascular: regular rate, rhythm Abdomen/GI: normal bowel sounds, non tender, soft Extremities/Musculoskelatal: + swelling (trace pretibial pitting edema) Neurologic/Psych: alert, oriented x 3 Family History Negative for CKD/ESRD Social History Marital Status: in relationship Single. Lives w/ girlfriend. No children. 9th grade education. 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 Now medically disabled. Denies alcohol use. Uses chewing tobacco. Laboratory Results Past 24 Hours 03/25/16 06:00 Red Blood Count 2.88, Mean Corpuscular Volume 82.3, Mean Corpuscular Hemoglobin 27.4, Mean Corpuscular Hemoglobin Concent 33.3, Mean Platelet Volume 9.8, Neutrophils (%) (Auto) 71.4, Lymphocytes (%) (Auto) 12.7, Monocytes (%) (Auto) 12.8, Eosinophils (%) (Auto) 2.3, Basophils (%) (Auto) 0.4, Neutrophils # (Auto ) 5.62, Lymphocytes # (Auto) 1.00, Monocytes # (Auto) 1.01, Eosinophils # (Auto ) 0.18, Basophils # (Auto) 0.03 03/24/16 16:25 03/25/16 06:00 Test 03/24/16 11:46 03/24/16 16:11 03/24/16 16:25 03/24/16 20:18 Bedside Glucose 153 mg/dl (70-99) 141 mg/dl (70-99) 158 mg/dl (70-99) Anion Gap 11.0 mmol/L (3-11) Est Creatinine Clear Calc Drug Dose 23.1 ml/min Estimated GFR () 14.4 Estimated GFR (Non- 12.4 BUN/Creatinine Ratio 10.8 (10-20) Calcium Level 8.1 mg/dl (8.5-10.1) Total Creatine Kinase 464 U/L (39-308) Creatine Kinase MB 8.5 ng/ml (0.5-3.6) Creatine Kinase MB Ratio 1.8 (0-3.0) Troponin I 0.029 ng/ml (0-0.045) Test 03/25/16 04:44 03/25/16 06:00 03/25/16 06:54 White Blood Count 7.87 K/uL (4.8-10.8) Red Blood Count 2.88 M/uL (4.7-6.1) Hemoglobin 7.9 g/dL (14.0-18.0) Hematocrit 23.7 % (42-52) Mean Corpuscular Volume 82.3 fL (80-100) Mean Corpuscular Hemoglobin 27.4 pg (25-34) Mean Corpuscular Hemoglobin Concent 33.3 g/dl (32-36) Platelet Count 200 K/uL (130-400) Mean Platelet Volume 9.8 fL (7.4-10.4) Neutrophils (%) (Auto) 71.4 % Lymphocytes (%) (Auto) 12.7 % Monocytes (%) (Auto) 12.8 % Eosinophils (%) (Auto) 2.3 % Basophils (%) (Auto) 0.4 % Neutrophils # (Auto) 5.62 K/uL (1.4-6.5) Lymphocytes # (Auto) 1.00 K/uL (1.2-3.4) Monocytes # (Auto) 1.01 K/uL (0.11-0.59) Eosinophils # (Auto) 0.18 K/uL (0-0.5) Basophils # (Auto) 0.03 K/uL (0-0.2) RDW Standard Deviation 43.5 fL (36.4-46.3) RDW Coefficient of Variation 14.3 % (11.5-14.5) Immature Granulocyte % (Auto) 0.4 % Immature Granulocyte # (Auto) 0.03 K/uL (0.00-0.02) Red Blood Cell Morphology Unremarkable Prothrombin Time 10.3 SECONDS (9.0-12.0) Prothromb Time International Ratio 1.0 (0.9-1.1) Anion Gap 12.0 mmol/L (3-11) Est Creatinine Clear Calc Drug Dose 21.3 ml/min Estimated GFR () 13.5 Estimated GFR (Non- 11.6 BUN/Creatinine Ratio 11.7 (10-20) Calcium Level 8.1 mg/dl (8.5-10.1) Total Bilirubin 0.4 mg/dl (0.2-1) Aspartate Amino Transf (AST/SGOT) 14 U/L (15-37) Alanine Aminotransferase (ALT/SGPT) 8 U/L (12-78) Alkaline Phosphatase 79 U/L (45-117) Total Protein 5.5 gm/dl (6.4-8.2) Albumin 1.8 gm/dl (3.4-5.0) Globulin 3.7 gm/dl (2.5-4.0) Albumin/Globulin Ratio 0.5 (0.9-2) Bedside Glucose 94 mg/dl (70-99) Allergies Coded Allergies: Codeine (Verified Adverse Reaction, Unknown, DELIRIUM, 03/24/16) PT REPORTS AGGRESSIVE BEHAVIORS. Medications Current Inpatient Medications Medications (Trade) Dose Ordered Sig/Willie Route Start Time Stop Time Status Last Admin Dose Admin Heparin Sodium (Porcine) (Heparin Sq 5000 Unit/0.5ml) 5,000 unit Q8 SQ 03/24/16 14:00 04/23/16 13:59 03/25/16 06:16 5,000 UNIT Acetaminophen (Tylenol Tab) 650 mg Q4H PRN PO 03/24/16 03:15 04/23/16 03:14 Al Hydrox/Mg Hydrox/Simethicone (Maalox Max Susp) 15 ml Q4H PRN PO 03/24/16 03:15 04/23/16 03:14 Magnesium Hydroxide (Milk Of Magnesia Susp) 30 ml Q12H PRN PO 03/24/16 03:15 04/23/16 03:14 Ondansetron HCl (Zofran Inj) 4 mg Q6H PRN IV 03/24/16 03:15 04/23/16 03:14 Nitroglycerin (Nitrostat Tab) 0.4 mg UD PRN SL 03/24/16 03:15 04/23/16 03:14 Nitroglycerin (Nitroglycerin 2% Oint) 1 inch Q6H EXT 03/24/16 04:00 04/23/16 03:59 03/25/16 10:06 1 INCH Polyethylene (Miralax Powder Packet) 17 gm DAILY PRN PO 03/24/16 03:15 04/23/16 03:14 Aspirin (Ecotrin Tab) 81 mg DAILY PO 03/24/16 09:00 04/23/16 08:59 03/25/16 08:56 81 MG Atorvastatin Calcium (Lipitor Tab) 80 mg DAILY PO 03/24/16 09:00 04/23/16 08:59 03/25/16 08:56 80 MG Clopidogrel Bisulfate (plAVix TAB) 75 mg DAILY PO 03/24/16 09:00 04/23/16 08:59 03/25/16 08:56 75 MG Famotidine (Pepcid Tab) 20 mg DAILY PO 03/24/16 09:00 04/23/16 08:59 03/25/16 08:55 20 MG Hydralazine HCl (Apresoline Tab) 25 mg TID PO 03/24/16 09:00 04/23/16 08:59 03/25/16 08:55 25 MG Labetalol HCl (Normodyne Tab) 200 mg DAILY PO 03/24/16 09:00 04/23/16 08:59 03/25/16 08:55 200 MG Sodium Bicarbonate (Sodium Bicarbonate Tab) 650 mg DAILY PO 03/24/16 09:00 04/23/16 08:59 03/25/16 08:55 650 MG Amlodipine Besylate (Norvasc Tab) 10 mg QAM PO 03/24/16 09:00 04/23/16 08:59 03/25/16 08:56 10 MG Miscellaneous Information (Consult Glycemic Management Pharmacy) 1 ea DAILY PRN N/A 03/24/16 03:49 04/23/16 03:48 Miscellaneous (Iv Fluids Completed) 1 ea PRN PRN N/A 03/24/16 04:30 03/24/17 04:29 Glucose (Glucose 40% Gel) 15-30 GRAMS 15 GRAMS... UD PRN PO 03/24/16 05:00 04/23/16 04:59 Glucose (Glucose Chew Tab) 4-8 Tablets 4 Tabl... UD PRN PO 03/24/16 05:00 04/23/16 04:59 Dextrose (Dextrose 50% 50ML Syringe) 25-50ML OF 50% DW IV FOR... UD PRN IV 03/24/16 05:00 04/23/16 04:59 Glucagon (Glucagon Inj) 1 mg UD PRN SQ 03/24/16 05:00 04/23/16 04:59 Insulin Aspart SLIDING SCALE ACHS SC 03/24/16 07:00 04/23/16 06:59 03/25/16 09:04 4 UNITS Furosemide/Syringe (Lasix Inj/ Syringe) 8 ml @ 4 mls/min BID17 IV 03/24/16 17:00 04/23/16 20:59 03/25/16 10:04 4 MLS/MIN Diphenhydramine HCl (Benadryl Inj) 25 mg Q4 PRN IV 03/24/16 16:15 04/23/16 16:14 03/24/16 18:36 25 MG Albuterol/ Ipratropium (Combivent Respimat Inh) 1 puffs QIDR INH 03/25/16 12:00 04/24/16 11:59 Insulin Glargine (Lantus Solostar Pen) 55 unit QAM SC 03/25/16 09:00 04/24/16 08:59 03/25/16 09:04 55 UNIT Impression (1) FIDE (acute kidney injury) (2) Chronic kidney disease (3) CHF (congestive heart failure) (4) Anemia (5) Hypertension (6) Diabetes Mr. Walker was admitted to the hospital for management of CHF. 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 He will require initiation of HD. PMH: CKD, nephrotic syndrome, AODM, HTN, obesity, hypercholesterolemia / hyperlipidemia, asthma, recurrent READ, h/o clostridium difficile Recommendations CHRONIC KIDNEY DISEASE: -- Medical records reviewed this am. Baseline creatinine was 3.4 earlier this month. -- Protect L arm for AVF creation -- Hold EVANGELINA inhibitor for now -- Discussed potential need for IJ THC insertion and initiation of HD. Indications/benefits/risks/alternatives to HD discussed w/ patient today. He voiced understanding. Will consult vascular surgery for IJ THC placement and creation of AVF (Sunday) -- Will consult social work supervisor to set up outpatient [facility]. [facility] HYPERTENSION: -- Patient has been started on hydralazine and labetalol by cardiology -- Continue amlodipine -- Monitor bp ANEMIA: -- Patient has iron deficiency. Will start IV iron therapy. -- Awaiting FOBT results -- Monitor H&H. Recommend transfusion if Hgb drops below 7.6 CHF: -- CXR this am reviewed. Patient has persistent CHF -- Continue furosemide 80 mg IV BID
[2016-03-25] MEDS: IPRATROPIUM BROMIDE/ALBUTEROL respimat INH INH SCH ×2 (13:03→17:24)
--- NOTE | 2016-03-25 13:17 | Pharmacy Progress Note ---
Glycemic Control: Progress Nt Date of Service Mar 25, 2016. Scope Glycemic Pharmacist consulted by Dr Johnston on 03/24/16 for glycemic control and to write orders per [facility] inpatient glycemic control protocol. Objective Accuchecks BSG (last 24hrs): Test 03/24/16 16:11 03/24/16 16:25 03/24/16 20:18 03/25/16 06:00 Bedside Glucose 141 mg/dl (70-99) 158 mg/dl (70-99) Random Glucose 131 mg/dl (70-99) 80 mg/dl (70-99) Test 03/25/16 06:54 03/25/16 11:28 Bedside Glucose 94 mg/dl (70-99) 158 mg/dl (70-99) Laboratory Data (last 24hrs) Test 03/24/16 16:25 03/25/16 06:00 Anion Gap 11.0 mmol/L 12.0 mmol/L BUN/Creatinine Ratio 10.8 11.7 Blood Urea Nitrogen 56 mg/dl 62 mg/dl Creatinine 5.10 mg/dl 5.40 mg/dl Potassium Level 4.8 mmol/L 4.4 mmol/L Sodium Level 138 mmol/L 140 mmol/L White Blood Count 7.87 K/uL Red Blood Count 2.88 M/uL Hemoglobin 7.9 g/dL Hematocrit 23.7 % Mean Corpuscular Volume 82.3 fL Mean Corpuscular Hemoglobin 27.4 pg Mean Corpuscular Hemoglobin Concent 33.3 g/dl Platelet Count 200 K/uL Mean Platelet Volume 9.8 fL Neutrophils (%) (Auto) 71.4 % Lymphocytes (%) (Auto) 12.7 % Monocytes (%) (Auto) 12.8 % Eosinophils (%) (Auto) 2.3 % Basophils (%) (Auto) 0.4 % Neutrophils # (Auto) 5.62 K/uL Lymphocytes # (Auto) 1.00 K/uL Monocytes # (Auto) 1.01 K/uL Eosinophils # (Auto) 0.18 K/uL Basophils # (Auto) 0.03 K/uL HbA1c: Test 03/24/16 05:56 Hemoglobin A1c 7.5 % (4.5-5.6) H Recent Pertinent Medications Outpatient Anti-diabetic Regimen: * Toujeo 80 units SQ QAM * A1c = 7.5 % 03/24/16 Risk Factors for Insulin Resistance: * Diet: Type 2 DM/ Renal/ Low Na Assessment & Plan ASSESSMENT: 03/24/16 * ADA & AACE recommend a goal blood sugar range 140-180 mg/dl for the majority of critically ill & non-critically ill patients. However, more stringent targets may be selected in individual cases. Goal 110-140mg/dl for patient's age and A1c. * Type 2 diabetic admitted with SOB, pulmonary edema vs pneumonia. On Toujeo at home, non-formulary, will change patient to Lantus and Novolog. * Recent admission to [facility] last week. PMH = CKD, SCr=4.7mg/dL, CAD s /p cardiac stents 6 mo ago. 03/25/16 * BSGs of 80 and 94mg/dL this morning, I will decrease patient's Lantus dose and loosen CF and CR slightly today to prevent hypoglycemia. * Started on IV Iron Sucrose for anemia. PLAN FOR INPATIENT GLYCEMIC CONTROL: * DECREASE: Lantus to 55 units SQ daily * Correctional Insulin with NOVOLOG per scale ACHS or Q6hrs while NPO * Goal Range: Low 110 mg/dL - High 140 mg/dL * LOOSEN: Correction Factor: 25 mg/dL/unit * LOOSEN: Nutritional / Prandial insulin per carb ratio of 1 unit per 8 grams CHO consumed * Please note that the plan above was derived based on current level of insulin resistance and hospital stress. These recommendations are appropriate for inpatient admission only. Plan of care upon discharge will need to be reassessed to avoid potential outpatient hypo/hyperglycemia. Thank you.
--- NOTE | 2016-03-25 17:29 | Hospitalist Progress Note ---
Hospitalist Progress Note Date of Service Mar 25, 2016. Subjective Pt evaluation today including: conversation w/ patient, physical exam, chart review, lab review, review of studies, review of inpatient medication list The patient feels some better today. No lightheadedness. oxygenation doing much better. Vital Signs Past 12 Hours Date Time Temp Pulse Resp B/P Pulse Ox O2 Delivery O2 Flow Rate FiO2 03/25/16 16:13 36.8 83 20 151/73 95 Room Air 03/25/16 12:00 Nasal Cannula 6.0 03/25/16 10:55 37.2 91 22 151/71 92 Nasal Cannula 6.0 Humidified Oxygen 03/25/16 08:08 37.2 93 24 165/83 90 Nasal Cannula 6.0 Humidified Oxygen 03/25/16 08:00 Nasal Cannula 6.0 03/25/16 07:38 77 95 03/25/16 07:22 88 16 94 Nasal Cannula 6.0 Additional Comments: A 10 system review was performed and all were negative. Positives were placed in the subjective section. Objective Vital Signs Date Time Temp Pulse Resp B/P Pulse Ox O2 Delivery O2 Flow Rate FiO2 03/25/16 16:13 36.8 83 20 151/73 95 Room Air 03/25/16 12:00 Nasal Cannula 6.0 03/25/16 10:55 37.2 91 22 151/71 92 Nasal Cannula 6.0 Humidified Oxygen 03/25/16 08:08 37.2 93 24 165/83 90 Nasal Cannula 6.0 Humidified Oxygen 03/25/16 08:00 Nasal Cannula 6.0 03/25/16 07:38 77 95 03/25/16 07:22 88 16 94 Nasal Cannula 6.0 03/25/16 04:12 37.1 89 18 161/77 92 Nasal Cannula 6.0 03/25/16 04:00 92 Nasal Cannula 6.0 03/24/16 23:59 95 Nasal Cannula 6.0 03/24/16 23:33 37.7 93 20 164/78 95 Nasal Cannula 6.0 03/24/16 21:06 36.9 90 20 166/81 91 6.0 03/24/16 20:15 36.8 88 20 173/83 91 2.0 03/24/16 20:00 94 Nasal Cannula 6.0 03/24/16 19:54 88 16 94 Nasal Cannula 6.0 03/24/16 19:45 36.9 88 20 171/83 94 6.0 03/24/16 19:43 36.7 88 18 169/83 91 6.0 03/24/16 19:31 36.8 88 20 168/79 93 6.0 03/24/16 18:56 37.1 90 18 170/76 94 6.0 03/24/16 18:33 37.0 86 18 171/82 95 Nasal Cannula 6.0 Humidified Oxygen Physical Exam Notes: GEN: Awake, alert, and oriented x 3. Not in acute distress HEENT: Tm's intact, no inflammation, EOMI, PERRLA, MMM Neck: Soft, supple Lungs: Decreased breath sounds at the bases. Crackles are less than yesterday. Heart: REG, nrl S1S2 without murmurs, rubs or gallops Abdomen: Soft, NT, ND, + BS EXT: No C/C/E NEURO: CN's II-XII grossly intact, non-focal Skin: warm, dry, no rashes PSYCH: pleasant, cooperative, no signs of significant anxiety or depression. Laboratory Results Last 24 Hours Test 03/24/16 20:18 03/25/16 06:00 03/25/16 06:54 03/25/16 11:28 Bedside Glucose 158 mg/dl 94 mg/dl 158 mg/dl White Blood Count 7.87 K/uL Red Blood Count 2.88 M/uL Hemoglobin 7.9 g/dL Hematocrit 23.7 % Mean Corpuscular Volume 82.3 fL Mean Corpuscular Hemoglobin 27.4 pg Mean Corpuscular Hemoglobin Concent 33.3 g/dl Platelet Count 200 K/uL Mean Platelet Volume 9.8 fL Neutrophils (%) (Auto) 71.4 % Lymphocytes (%) (Auto) 12.7 % Monocytes (%) (Auto) 12.8 % Eosinophils (%) (Auto) 2.3 % Basophils (%) (Auto) 0.4 % Neutrophils # (Auto) 5.62 K/uL Lymphocytes # (Auto) 1.00 K/uL Monocytes # (Auto) 1.01 K/uL Eosinophils # (Auto) 0.18 K/uL Basophils # (Auto) 0.03 K/uL RDW Standard Deviation 43.5 fL RDW Coefficient of Variation 14.3 % Immature Granulocyte % (Auto) 0.4 % Immature Granulocyte # (Auto) 0.03 K/uL Red Blood Cell Morphology Unremarkable Prothrombin Time 10.3 SECONDS Prothromb Time International Ratio 1.0 Sodium Level 140 mmol/L Potassium Level 4.4 mmol/L Chloride Level 109 mmol/L Carbon Dioxide Level 19 mmol/L Anion Gap 12.0 mmol/L Blood Urea Nitrogen 62 mg/dl Creatinine 5.40 mg/dl Est Creatinine Clear Calc Drug Dose 21.3 ml/min Estimated GFR () 13.5 Estimated GFR (Non- 11.6 BUN/Creatinine Ratio 11.7 Random Glucose 80 mg/dl Calcium Level 8.1 mg/dl Total Bilirubin 0.4 mg/dl Aspartate Amino Transf (AST/SGOT) 14 U/L Alanine Aminotransferase (ALT/SGPT) 8 U/L Alkaline Phosphatase 79 U/L Total Protein 5.5 gm/dl Albumin 1.8 gm/dl Globulin 3.7 gm/dl Albumin/Globulin Ratio 0.5 Test 03/25/16 16:17 Bedside Glucose 78 mg/dl Assessment and Plan 1) CHF - fair improvement with IV diuresis, but kidney function will limit what we are able to do via this method. He will be having dialysis (according to the patientP Sunday or Sunday. 2) ESRD -dialysis 3) Insulin requiring Type II DM - insulin therapy 4) Diabetic nephropathy. 5) Anemia - multifactorial, received 1 unit of PRBCs yesterday. DVT prophylaxis - Sub-q heparin.
[2016-03-26] MEDS: NITROGLYCERIN OINT 2% 1GM PACKET EXT SCH ×4 (04:09→20:19)
[2016-03-26 04:15] VITALS: BP 160/75; PULSE 86; TEMP 36.9; O2SAT 92
[2016-03-26] MEDS: HEPARIN SOD 5000 UNIT/0.5 ML CARP SQ SCH ×3 (05:50→20:24)
[2016-03-26 06:18] LABS: BASO % 0.4 %; BASO ABS # 0.03 K/uL (0-0.2); EOS % 3.1 %; HEMATOCRIT 24.2 % (42-52); IG% 0.3 %; LYMPH % 11.9 %; LYMPH ABS # 0.93 K/uL (1.2-3.4); MEAN CELL VOLUME 80.7 fL (80-100); MEAN CORPUSCULAR HEMOGLOBIN 27.3 pg (25-34); MEAN CORPUSCULAR HGB CONC 33.9 g/dl (32-36); MONO % 10.1 %; NEUT % 74.2 %; PLATELET COUNT 230 K/uL (130-400); WHITE BLOOD COUNT 7.81 K/uL (4.8-10.8)
[2016-03-26 06:27] LABS: INR 0.9 (0.9-1.1)
[2016-03-26 06:51] LABS: ALB/GLOB RATIO 0.5 (0.9-2); BUN/CREATININE RATIO 12.6 (10-20); CALCIUM 8.3 mg/dl (8.5-10.1); CREATININE 5.4 mg/dl (0.60-1.40); POTASSIUM 4.6 mmol/L (3.5-5.1)
[2016-03-26 06:53] LABS: COMPLETE YES
[2016-03-26 07:38] VITALS: BP 180/85; PULSE 80; TEMP 36.9; O2SAT 95
[2016-03-26] MEDS: IPRATROPIUM BROMIDE/ALBUTEROL respimat INH INH SCH ×5 (08:00→20:21)
[2016-03-26] MEDS ORDERED: INSULIN GLARGINE SOLOSTAR 100 UNITS/ML 3 ML PEN SC SCH (09:00)
[2016-03-26] MEDS: FUROSEMIDE INJ 80 MG in SYRINGE 0 ML IV SCH ×2 (09:45→17:40)
[2016-03-26] MEDS: ATORVASTATIN 40 MG TAB PO SCH (09:47)
[2016-03-26] MEDS: ASPIRIN 81 MG ECTAB PO SCH (09:47)
[2016-03-26] MEDS: CLOPIDOGREL BISULFATE 75 MG TAB PO SCH (09:47)
[2016-03-26] MEDS: AMLODIPINE BESYLATE 5 MG TAB PO SCH (09:47)
[2016-03-26] MEDS: SODIUM BICARBONATE 650 MG TAB PO SCH (09:49)
[2016-03-26] MEDS: LABETALOL HCL 200 MG TAB PO SCH (09:49)
[2016-03-26] MEDS: FAMOTIDINE 20 MG TAB PO SCH (09:50)
[2016-03-26] MEDS: INSULIN ASPART 100 UNITS/ML 3 ML PEN SC SCH ×4 (09:53→20:18)
[2016-03-26] MEDS: IRON SUCROSE INJ 100 MG in SODIUM CHLORIDE 0.9% 100ML 100 ML IV SCH (11:02)
--- NOTE | 2016-03-26 11:23 | Nephrology Progress Note ---
Nephrology Progress Note Date of Service Mar 26, 2016. Chief Complaint Evaluate need to start HD in this patient with advanced diabetic nephropathy Subjective Mr. Walker was seen & examined in his hospital room this morning. He was admitted for evaluation of CHF. He has diuresed ~ 2.5 L in response to IV furosemide therapy. He reports that his breathing is subjectively improved. The patient has diabetic nephropathy and is nearing ESRD. Outpatient records show Cr 3.4 earlier this month. Patient is interested in CAPD but understands that he will likely need to start HD acutely. Mr. Walker was recently hospitalized at [facility] for evaluation of diarrhea. Colonoscopy revealed several polyps. Patient reports that diarrhea has resolved. The patient has iron deficiency anemia. He denies overt blood loss. FOBT are pending Review of Systems Constitutional: No fever Cardiovascular: No chest pain Respiratory: No dyspnea at rest Abdomen: No nausea, No pain, No vomiting Extremities: + leg edema A complete review of systems was performed. Pertinent positives are noted above. All other systems are negative. Vital Signs Last 8 Hrs Date Time Temp Pulse Resp B/P Pulse Ox O2 Delivery O2 Flow Rate FiO2 03/26/16 08:00 Nasal Cannula 5.0 03/26/16 07:38 36.9 80 16 180/85 95 5.0 03/26/16 04:15 36.9 86 18 160/75 92 Nasal Cannula 6.0 03/26/16 04:00 Nasal Cannula 6.0 I & O 24-Hour Column 03/26/16 08:00 Intake Total 1600 ml Output Total 3175 ml Balance -1575 ml Last Recorded Weight Weight (Kilograms): 114.300 Physical Exam General Appearance: no apparent distress Head: atraumatic Eyes: PERRL, EOMI Neck: no adenopathy Respiratory/Chest: lungs clear, no respiratory distress Cardiovascular: regular rate, rhythm, no murmur Abdomen/GI: normal bowel sounds, non tender, soft Extremities/Musculoskelatal: + swelling (1+ pretibial pitting edema) Neurologic/Psych: alert, oriented x 3 Family History Negative for CKD/ESRD Social History Marital Status: in relationship Single. Lives w/ girlfriend. No children. 9th grade education. 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 Now medically disabled. Denies alcohol use. Uses chewing tobacco. Laboratory Results Past 24 Hours 03/26/16 05:50 Red Blood Count 3.00, Mean Corpuscular Volume 80.7, Mean Corpuscular Hemoglobin 27.3, Mean Corpuscular Hemoglobin Concent 33.9, Mean Platelet Volume 10.0, Neutrophils (%) (Auto) 74.2, Lymphocytes (%) (Auto) 11.9, Monocytes (%) (Auto) 10.1, Eosinophils (%) (Auto) 3.1, Basophils (%) (Auto) 0.4, Neutrophils # (Auto ) 5.80, Lymphocytes # (Auto) 0.93, Monocytes # (Auto) 0.79, Eosinophils # (Auto ) 0.24, Basophils # (Auto) 0.03 03/26/16 05:50 Test 03/25/16 11:28 03/25/16 16:17 03/25/16 20:33 03/26/16 05:50 Bedside Glucose 158 mg/dl (70-99) 78 mg/dl (70-99) 123 mg/dl (70-99) White Blood Count 7.81 K/uL (4.8-10.8) Red Blood Count 3.00 M/uL (4.7-6.1) Hemoglobin 8.2 g/dL (14.0-18.0) Hematocrit 24.2 % (42-52) Mean Corpuscular Volume 80.7 fL (80-100) Mean Corpuscular Hemoglobin 27.3 pg (25-34) Mean Corpuscular Hemoglobin Concent 33.9 g/dl (32-36) Platelet Count 230 K/uL (130-400) Mean Platelet Volume 10.0 fL (7.4-10.4) Neutrophils (%) (Auto) 74.2 % Lymphocytes (%) (Auto) 11.9 % Monocytes (%) (Auto) 10.1 % Eosinophils (%) (Auto) 3.1 % Basophils (%) (Auto) 0.4 % Neutrophils # (Auto) 5.80 K/uL (1.4-6.5) Lymphocytes # (Auto) 0.93 K/uL (1.2-3.4) Monocytes # (Auto) 0.79 K/uL (0.11-0.59) Eosinophils # (Auto) 0.24 K/uL (0-0.5) Basophils # (Auto) 0.03 K/uL (0-0.2) RDW Standard Deviation 41.6 fL (36.4-46.3) RDW Coefficient of Variation 14.1 % (11.5-14.5) Immature Granulocyte % (Auto) 0.3 % Immature Granulocyte # (Auto) 0.02 K/uL (0.00-0.02) Red Blood Cell Morphology Unremarkable Prothrombin Time 10.0 SECONDS (9.0-12.0) Prothromb Time International Ratio 0.9 (0.9-1.1) Anion Gap 13.0 mmol/L (3-11) Est Creatinine Clear Calc Drug Dose 21.4 ml/min Estimated GFR () 13.5 Estimated GFR (Non- 11.6 BUN/Creatinine Ratio 12.6 (10-20) Calcium Level 8.3 mg/dl (8.5-10.1) Total Bilirubin 0.2 mg/dl (0.2-1) Aspartate Amino Transf (AST/SGOT) 25 U/L (15-37) Alanine Aminotransferase (ALT/SGPT) 10 U/L (12-78) Alkaline Phosphatase 89 U/L (45-117) Total Protein 5.8 gm/dl (6.4-8.2) Albumin 1.8 gm/dl (3.4-5.0) Globulin 4.0 gm/dl (2.5-4.0) Albumin/Globulin Ratio 0.5 (0.9-2) Test 03/26/16 07:06 Bedside Glucose 101 mg/dl (70-99) Allergies Coded Allergies: Codeine (Verified Adverse Reaction, Unknown, DELIRIUM, 03/24/16) PT REPORTS AGGRESSIVE BEHAVIORS. Medications Current Inpatient Medications Medications (Trade) Dose Ordered Sig/Willie Route Start Time Stop Time Status Last Admin Dose Admin Heparin Sodium (Porcine) (Heparin Sq 5000 Unit/0.5ml) 5,000 unit Q8 SQ 03/24/16 14:00 04/23/16 13:59 03/26/16 05:50 5,000 UNIT Acetaminophen (Tylenol Tab) 650 mg Q4H PRN PO 03/24/16 03:15 04/23/16 03:14 Al Hydrox/Mg Hydrox/Simethicone (Maalox Max Susp) 15 ml Q4H PRN PO 03/24/16 03:15 04/23/16 03:14 Magnesium Hydroxide (Milk Of Magnesia Susp) 30 ml Q12H PRN PO 03/24/16 03:15 04/23/16 03:14 Ondansetron HCl (Zofran Inj) 4 mg Q6H PRN IV 03/24/16 03:15 04/23/16 03:14 Nitroglycerin (Nitrostat Tab) 0.4 mg UD PRN SL 03/24/16 03:15 04/23/16 03:14 Nitroglycerin (Nitroglycerin 2% Oint) 1 inch Q6H EXT 03/24/16 04:00 04/23/16 03:59 03/26/16 09:57 1 INCH Polyethylene (Miralax Powder Packet) 17 gm DAILY PRN PO 03/24/16 03:15 04/23/16 03:14 Aspirin (Ecotrin Tab) 81 mg DAILY PO 03/24/16 09:00 04/23/16 08:59 03/26/16 09:47 81 MG Atorvastatin Calcium (Lipitor Tab) 80 mg DAILY PO 03/24/16 09:00 04/23/16 08:59 03/26/16 09:47 80 MG Clopidogrel Bisulfate (plAVix TAB) 75 mg DAILY PO 03/24/16 09:00 04/23/16 08:59 03/26/16 09:47 75 MG Famotidine (Pepcid Tab) 20 mg DAILY PO 03/24/16 09:00 04/23/16 08:59 03/26/16 09:50 20 MG Hydralazine HCl (Apresoline Tab) 25 mg TID PO 03/24/16 09:00 04/23/16 08:59 03/26/16 09:49 25 MG Labetalol HCl (Normodyne Tab) 200 mg DAILY PO 03/24/16 09:00 04/23/16 08:59 03/26/16 09:49 200 MG Sodium Bicarbonate (Sodium Bicarbonate Tab) 650 mg DAILY PO 03/24/16 09:00 04/23/16 08:59 03/26/16 09:49 650 MG Amlodipine Besylate (Norvasc Tab) 10 mg QAM PO 03/24/16 09:00 04/23/16 08:59 03/26/16 09:47 10 MG Miscellaneous Information (Consult Glycemic Management Pharmacy) 1 ea DAILY PRN N/A 03/24/16 03:49 04/23/16 03:48 Miscellaneous (Iv Fluids Completed) 1 ea PRN PRN N/A 03/24/16 04:30 03/24/17 04:29 Glucose (Glucose 40% Gel) 15-30 GRAMS 15 GRAMS... UD PRN PO 03/24/16 05:00 04/23/16 04:59 Glucose (Glucose Chew Tab) 4-8 Tablets 4 Tabl... UD PRN PO 03/24/16 05:00 04/23/16 04:59 Dextrose (Dextrose 50% 50ML Syringe) 25-50ML OF 50% DW IV FOR... UD PRN IV 03/24/16 05:00 04/23/16 04:59 Glucagon (Glucagon Inj) 1 mg UD PRN SQ 03/24/16 05:00 04/23/16 04:59 Insulin Aspart SLIDING SCALE ACHS SC 03/24/16 07:00 04/23/16 06:59 03/26/16 09:53 2 UNITS Furosemide/Syringe (Lasix Inj/ Syringe) 8 ml @ 4 mls/min BID17 IV 03/24/16 17:00 04/23/16 20:59 03/26/16 09:45 4 MLS/MIN Diphenhydramine HCl (Benadryl Inj) 25 mg Q4 PRN IV 03/24/16 16:15 04/23/16 16:14 03/24/16 18:36 25 MG Albuterol/ Ipratropium 1 puffs 1 puffs QIDR INH 03/25/16 12:00 04/24/16 11:59 03/26/16 09:44 1 PUFFS Iron Sucrose/ Sodium Chloride (Venofer Inj/Nss 100ml) 105 ml @ 420 mls/hr DAILY@0900 IV 03/26/16 09:00 04/04/16 09:14 03/26/16 11:02 420 MLS/HR Insulin Glargine (Lantus Solostar Pen) 50 unit QAM SC 03/26/16 09:00 04/25/16 08:59 03/26/16 09:53 50 UNIT Impression (1) FIDE (acute kidney injury) (2) Chronic kidney disease (3) CHF (congestive heart failure) (4) Anemia (5) Hypertension (6) Diabetes Mr. Walker was admitted to the hospital for management of CHF. 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 He will require initiation of HD. PMH: CKD, nephrotic syndrome, AODM, HTN, obesity, hypercholesterolemia / hyperlipidemia, asthma, recurrent READ, h/o clostridium difficile Recommendations CHRONIC KIDNEY DISEASE: -- Outpatient medical records show creatinine was 3.4 earlier this month. -- Protect L arm for AVF creation -- Hold EVANGELINA inhibitor -- Discussed potential need for IJ THC insertion and initiation of HD. Indications/benefits/risks/alternatives to HD discussed w/ patient and his girl friend today. They both voiced understanding. Vascular surgery has been consulted for IJ THC placement and creation of AVF Sunday -- Will consult social media executive to set up outpatient HD. Patient prefers the [place] dialysis unit if possible (TTS w/ Dr Webster). He will need [facility] transportation set up HYPERTENSION: -- Patient has been started on hydralazine and labetalol by cardiology -- Continue amlodipine -- BP remains mildly elevated. This will improve following initiation of HD w/ UF ANEMIA: -- Patient has iron deficiency. On day # 2 of 10 IV iron therapy -- Awaiting FOBT results -- Monitor H&H CHF: -- Continue furosemide 80 mg IV BID
[2016-03-26 11:29] VITALS: BP 146/78; PULSE 78; TEMP 36.8; O2SAT 95
--- NOTE | 2016-03-26 14:18 | Pharmacy Progress Note ---
Glycemic Control: Progress Nt Date of Service Mar 26, 2016. Scope Glycemic Pharmacist consulted by Dr Martinez on 03/24/16 for glycemic control and to write orders per [facility] inpatient glycemic control protocol. Objective Accuchecks BSG (last 24hrs): Test 03/25/16 16:17 03/25/16 20:33 03/26/16 05:50 03/26/16 07:06 Bedside Glucose 78 mg/dl (70-99) 123 mg/dl (70-99) 101 mg/dl (70-99) Random Glucose 96 mg/dl (70-99) Test 03/26/16 11:22 Bedside Glucose 149 mg/dl (70-99) Laboratory Data (last 24hrs) Test 03/26/16 05:50 Anion Gap 13.0 mmol/L BUN/Creatinine Ratio 12.6 Blood Urea Nitrogen 68 mg/dl Creatinine 5.40 mg/dl Potassium Level 4.6 mmol/L Sodium Level 139 mmol/L White Blood Count 7.81 K/uL Red Blood Count 3.00 M/uL Hemoglobin 8.2 g/dL Hematocrit 24.2 % Mean Corpuscular Volume 80.7 fL Mean Corpuscular Hemoglobin 27.3 pg Mean Corpuscular Hemoglobin Concent 33.9 g/dl Platelet Count 230 K/uL Mean Platelet Volume 10.0 fL Neutrophils (%) (Auto) 74.2 % Lymphocytes (%) (Auto) 11.9 % Monocytes (%) (Auto) 10.1 % Eosinophils (%) (Auto) 3.1 % Basophils (%) (Auto) 0.4 % Neutrophils # (Auto) 5.80 K/uL Lymphocytes # (Auto) 0.93 K/uL Monocytes # (Auto) 0.79 K/uL Eosinophils # (Auto) 0.24 K/uL Basophils # (Auto) 0.03 K/uL HbA1c: Test 03/24/16 05:56 Hemoglobin A1c 7.5 % (4.5-5.6) H Recent Pertinent Medications Outpatient Anti-diabetic Regimen: * Toujeo 80 units SQ QAM * A1c = 7.5 % 03/24/16 Risk Factors for Insulin Resistance: * Diet: Type 2 DM/ Renal/ Low Na Assessment & Plan ASSESSMENT: 03/24/16 * ADA & AACE recommend a goal blood sugar range 140-180 mg/dl for the majority of critically ill & non-critically ill patients. However, more stringent targets may be selected in individual cases. Goal 110-140mg/dl for patient's age and A1c. * Type 2 diabetic admitted with SOB, pulmonary edema vs pneumonia. On Toujeo at home, non-formulary, will change patient to Lantus and Novolog. * Recent admission to [facility] last week. PMH = CKD, SCr=4.7mg/dL, CAD s /p cardiac stents 6 mo ago. 03/25/16 * BSGs of 80 and 94mg/dL this morning, I will decrease patient's Lantus dose and loosen CF and CR slightly today to prevent hypoglycemia. * Started on IV Iron Sucrose for anemia. 03/26/16 * BSGs at goal, will decrease Lantus again to prevent hypoglycemia. * Nephrology consult today, ESRD in need of HD. Pt to have IJ THC insertion tomorrow possibly by vascular surgery, I will change Lantus order for 1/2 dose if NPO tomorrow morning for surgery. PLAN FOR INPATIENT GLYCEMIC CONTROL: * DECREASE: Lantus to 50 units SQ daily today * 25 units tomorrow morning for NPO status * Correctional Insulin with NOVOLOG per scale ACHS or Q6hrs while NPO * Goal Range: Low 110 mg/dL - High 140 mg/dL * Correction Factor: 25 mg/dL/unit * Nutritional / Prandial insulin per carb ratio of 1 unit per 8 grams CHO consumed * Please note that the plan above was derived based on current level of insulin resistance and hospital stress. These recommendations are appropriate for inpatient admission only. Plan of care upon discharge will need to be reassessed to avoid potential outpatient hypo/hyperglycemia. Thank you.
[2016-03-26 15:20] VITALS: BP 134/63; PULSE 78; TEMP 36.9; O2SAT 90
--- NOTE | 2016-03-26 17:54 | Hospitalist Progress Note ---
Hospitalist Progress Note Date of Service Mar 26, 2016. Subjective Pt evaluation today including: conversation w/ patient, physical exam, chart review, lab review, review of studies, review of inpatient medication list The patient is doing about the same he has no new complaints today. He would like to take a shower and I have no problem with that today. Additional Comments: A 10 system review was performed and all were negative. Positives were placed in the subjective section. Objective Vital Signs Date Time Temp Pulse Resp B/P Pulse Ox O2 Delivery O2 Flow Rate FiO2 03/26/16 16:00 Nasal Cannula 4.0 03/26/16 15:20 36.9 78 20 134/63 90 Nasal Cannula 4.0 Humidified Oxygen 03/26/16 12:00 Nasal Cannula 4.0 03/26/16 11:29 36.8 78 20 146/78 95 Nasal Cannula 5.0 03/26/16 08:00 Nasal Cannula 5.0 03/26/16 07:38 36.9 80 16 180/85 95 5.0 03/26/16 04:15 36.9 86 18 160/75 92 Nasal Cannula 6.0 03/26/16 04:00 Nasal Cannula 6.0 03/25/16 23:59 Nasal Cannula 6.0 03/25/16 23:07 37.7 85 20 161/67 89 Nasal Cannula 6.0 03/25/16 20:00 Nasal Cannula 5.0 03/25/16 19:35 36.8 83 20 166/82 91 Nasal Cannula 3.0 Physical Exam Notes: GEN: Awake, alert, and oriented x 3. Not in acute distress HEENT: Tm's intact, no inflammation, EOMI, PERRLA, MMM Neck: Soft, supple Lungs: Decreased breath sounds at the bases b/l. Heart: REG, nrl S1S2 without murmurs, rubs or gallops Abdomen: Soft, NT, ND, + BS EXT: No C/C/E NEURO: CN's II-XII grossly intact, non-focal Skin: warm, dry, no rashes PSYCH: pleasant, cooperative, no signs of significant anxiety or depression. Laboratory Results Last 24 Hours Test 03/25/16 20:33 03/26/16 05:50 03/26/16 07:06 03/26/16 11:22 Bedside Glucose 123 mg/dl 101 mg/dl 149 mg/dl White Blood Count 7.81 K/uL Red Blood Count 3.00 M/uL Hemoglobin 8.2 g/dL Hematocrit 24.2 % Mean Corpuscular Volume 80.7 fL Mean Corpuscular Hemoglobin 27.3 pg Mean Corpuscular Hemoglobin Concent 33.9 g/dl Platelet Count 230 K/uL Mean Platelet Volume 10.0 fL Neutrophils (%) (Auto) 74.2 % Lymphocytes (%) (Auto) 11.9 % Monocytes (%) (Auto) 10.1 % Eosinophils (%) (Auto) 3.1 % Basophils (%) (Auto) 0.4 % Neutrophils # (Auto) 5.80 K/uL Lymphocytes # (Auto) 0.93 K/uL Monocytes # (Auto) 0.79 K/uL Eosinophils # (Auto) 0.24 K/uL Basophils # (Auto) 0.03 K/uL RDW Standard Deviation 41.6 fL RDW Coefficient of Variation 14.1 % Immature Granulocyte % (Auto) 0.3 % Immature Granulocyte # (Auto) 0.02 K/uL Red Blood Cell Morphology Unremarkable Prothrombin Time 10.0 SECONDS Prothromb Time International Ratio 0.9 Sodium Level 139 mmol/L Potassium Level 4.6 mmol/L Chloride Level 107 mmol/L Carbon Dioxide Level 19 mmol/L Anion Gap 13.0 mmol/L Blood Urea Nitrogen 68 mg/dl Creatinine 5.40 mg/dl Est Creatinine Clear Calc Drug Dose 21.4 ml/min Estimated GFR () 13.5 Estimated GFR (Non- 11.6 BUN/Creatinine Ratio 12.6 Random Glucose 96 mg/dl Calcium Level 8.3 mg/dl Total Bilirubin 0.2 mg/dl Aspartate Amino Transf (AST/SGOT) 25 U/L Alanine Aminotransferase (ALT/SGPT) 10 U/L Alkaline Phosphatase 89 U/L Total Protein 5.8 gm/dl Albumin 1.8 gm/dl Globulin 4.0 gm/dl Albumin/Globulin Ratio 0.5 Test 03/26/16 16:17 Bedside Glucose 116 mg/dl Assessment and Plan 1) CHF - fair improvement with IV diuresis. He will be having dialysis likely tomorrow. 2) ESRD -dialysis 3) Insulin requiring Type II DM - insulin therapy 4) Diabetic nephropathy. - stable has not been an issue here. 5) Anemia - multifactorial, received 1 unit of PRBCs two days prior. . DVT prophylaxis - Sub-q heparin.
[2016-03-26 19:14] VITALS: BP 171/83; PULSE 82; TEMP 37; O2SAT 93
[2016-03-27] VITALS (19 sets, daily range): BP systolic 146–174; BP diastolic 68–105; PULSE 72–84; TEMP 36.6–37.3; O2SAT 4–96
[2016-03-27] MEDS: NITROGLYCERIN OINT 2% 1GM PACKET EXT SCH ×4 (04:11→21:33)
[2016-03-27] MEDS: HEPARIN SOD 5000 UNIT/0.5 ML CARP SQ SCH ×3 (05:56→21:35)
[2016-03-27 06:47] LABS: HEMATOCRIT 23.1 % (42-52); MEAN CELL VOLUME 81.6 fL (80-100); MEAN CORPUSCULAR HEMOGLOBIN 27.6 pg (25-34); MEAN CORPUSCULAR HGB CONC 33.8 g/dl (32-36); MEAN PLATELET VOLUME 9.1 fL (7.4-10.4); PLATELET COUNT 236 K/uL (130-400); RED BLOOD COUNT 2.83 M/uL (4.7-6.1)
[2016-03-27] MEDS: INSULIN ASPART 100 UNITS/ML 3 ML PEN SC SCH ×4 (07:00→21:31)
[2016-03-27] MEDS ORDERED: INSULIN GLARGINE SOLOSTAR 100 UNITS/ML 3 ML PEN SC SCH ×2 (07:00→08:45)
[2016-03-27 07:32] LABS: BUN/CREATININE RATIO 13.5 (10-20); CALCIUM 8.1 mg/dl (8.5-10.1); CREATININE 5.8 mg/dl (0.60-1.40); POTASSIUM 4.5 mmol/L (3.5-5.1)
[2016-03-27] MEDS: SODIUM BICARBONATE 650 MG TAB PO SCH ×2 (08:52→11:45)
[2016-03-27] MEDS: LABETALOL HCL 200 MG TAB PO SCH (08:52)
[2016-03-27] MEDS: AMLODIPINE BESYLATE 5 MG TAB PO SCH (08:53)
[2016-03-27] MEDS: ASPIRIN 81 MG ECTAB PO SCH ×2 (08:53→11:46)
[2016-03-27] MEDS: CLOPIDOGREL BISULFATE 75 MG TAB PO SCH ×2 (08:53→11:45)
[2016-03-27] MEDS: ATORVASTATIN 40 MG TAB PO SCH ×2 (08:53→11:46)
[2016-03-27] MEDS: FAMOTIDINE 20 MG TAB PO SCH ×2 (08:53→11:46)
[2016-03-27] MEDS: IPRATROPIUM BROMIDE/ALBUTEROL respimat INH INH SCH ×4 (08:56→21:28)
[2016-03-27] MEDS: IRON SUCROSE INJ 100 MG in SODIUM CHLORIDE 0.9% 100ML 100 ML IV SCH (08:57)
[2016-03-27] MEDS: FUROSEMIDE INJ 80 MG in SYRINGE 0 ML IV SCH (09:02)
--- NOTE | 2016-03-27 09:19 | Surgery Consultation ---
Consultation Date of Service Mar 27, 2016. (Sidra Weems PA-C) Chief Complaint ESRD, need permcath (Sidra Weems PA-C) History of Present Illness The patient is a 45 year old male with hx of HTN and CAD, admitted with acute on chronic renal failure and anemia, seen in consultation today for insertion of TDC for HD. Pt states feeling ok today, just tired. Denies READ, fever,chills , chest pain, SOB, abd pain, N/V, rest pain, claudication, other complaints. (Sidra Weems PA-C) Vitals Vital Signs Past 12 Hours Date Time Temp Pulse Resp B/P Pulse Ox O2 Delivery O2 Flow Rate FiO2 03/27/16 07:26 36.8 84 16 158/72 95 Nasal Cannula 5.0 03/27/16 04:00 Nasal Cannula 5.0 03/27/16 03:59 37.1 78 18 162/77 95 Nasal Cannula 4.0 03/27/16 00:05 37.2 83 18 147/68 90 Nasal Cannula 4.0 03/26/16 23:59 Nasal Cannula 6.0 (Sidra Weems, ANICETO) Allergies Coded Allergies: Codeine (Verified Adverse Reaction, Unknown, DELIRIUM, 03/24/16) PT REPORTS AGGRESSIVE BEHAVIORS. Home Medications Scheduled Atorvastatin (Lipitor), 80 MG PO DAILY Hydralazine Hcl (Apresoline), 25 MG PO TID Insulin Glargine (Toujeo Solostar), 80 UNITS SQ QAM Miscellaneous Medications Amlodipine Besylate (Amlodipine Besylate) Aspirin (Aspirin 81) Clopidogrel Bisulfate (Clopidogrel) Famotidine (Pepcid), 20 MG PO Labetalol (Normodyne), 200 MG PO Sodium Bicarbonate (Sodium Bicarbonate) Problem List Medical Problems: (1) FIDE (acute kidney injury) (2) Anemia (3) CHF (congestive heart failure) (4) Chronic kidney disease (5) Diabetes (6) Hypertension (Sidra Weems PA-C) Surgical / Medical History Hx Cardiac Surgery: No (cath 2016 1 stent) Hx Abdominal Surgery: No Hx Cancer Surgery: No Hx Thoracic Surgery: No Hx Orthopedic: Yes (left foot) Hx Urinary Tract Surgery: No HX Other Surgery: No Past Medical/Surgical History: Angioplasty/Stent, Hypertension, Kidney Disease (Sidra Weems PA-C) Family History + HTN, DMII (Sidra Weems PA-C) Social History Smoking Status: Former Smoker Hx Tobacco Use In Past Year?: No Hx Alcohol Use - Type & Amnt: No Hx Substance Use -Type & Amnt: No (Sidra Weems PA-C) Review of Systems Constitutional: + malaise, No chills, No fever Skin: No change in color Eyes: No visual changes ENMT: No sore throat Respiratory: + FLORIAN, No cough, No hemoptysis, No short of breath Cardiovascular: + edema, No chest pain, No intermittent claudication, No palpitations, No syncope Gastrointestinal: No abdominal pain, No nausea, No vomiting Neurologic: No dizziness, No headache, No lethargy, No numbness, No tingling ( Sidra Weems PA-C) Physical Exam Constitutional: General Apperance: well-nourished, well-developed, obese Level of Distress: NAD, chronically ill Ambulation: ambulating normally Psychiatric: Mental Status: active & alert, normal mood, normal affect Orientation: oriented except where noted, to time, to place, to person Memory: recent memory normal, remote memory normal Head: normocephalic, atraumatic Eyes: EOM: EOMI ENMT: normal ENT inspection, hearing grossly normal Neck: supple, trachea midline Lungs: Respiratory effort: no dyspnea Auscultation: no wheezing, no rhonchi, decreased breath sounds, wet rales/ crackles Cardiovascular: Apical Impulse: not displaced Heart Auscultation: RRR, no rubs, no gallops Peripheral Pulses: Pulses: full and equal, in all extremities except if noted Bruits: none appreciated Carotid Pulse: normal on the left, normal on the right Brachial Pulses: normal on the left, normal on the right Radial Pulse: normal on the left, normal on the right Femoral Pulse: normal on the left, normal on the right Posterior Tibialis Pulse: decreased on the left, decreased on the right Dorsalis Pedis Pulse: decreased on the left, decreased on the right Abdomen: Bowel Sounds: normal Inspection & Palpation: soft, non-distended, no tenderness, guarding & rebound Musculoskeletal: normal strength (5/5 throughout), normal tone Extremities: Upper Right: no cyanosis, no varicosities, edema Upper Left: no cyanosis, no varicosities, no palpable cord, edema Lower Right: no cyanosis, no varicosities, no palpable cord, edema Lower Left: no cyanosis, no varicosities, no palpable cord, edema Neurologic: Cranial Nerves: grossly intact Sensation: grossly intact (Sidra Weems, PA-C) Assessment and Plan ASSESSMENT and PLAN: ESRD Pt for permcath insertion later this AM. Procedure, risks, benefits, and alternatives discussed with pt, he expresses understanding and agreement. Also discussed with pt that we can consider for AVF creation either later this admission or as outpt. Pt agreeable. (Sidra Weems, PA-C) Patient was seen, examined, and chart reviewed. Agree with exam and treatment plan of the Vascular PA. Patient for permcath insertion today. I have discussed the risks options and benefits of the procedure with the patient. The patient understands the risks options and benefits and agrees to the procedure. (Dewey Mena M.D.)
[2016-03-27] MEDS ORDERED: CEFAZOLIN IV 1,000 MG in DEXTROSE 5% 50ML 50 ML IV ONE (09:30)
[2016-03-27] MEDS ORDERED: CEFAZOLIN 2000 MG/60 ML D5W IV SCH (10:00)
--- NOTE | 2016-03-27 10:00 | Procedure Note ---
Pre-Mod Sedation Assessment General Date of Moderate Sedation: Mar 27, 2016. Vital Signs: Vital Signs Past 12 Hours Date Time Temp Pulse Resp B/P Pulse Ox O2 Delivery O2 Flow Rate FiO2 03/27/16 07:26 36.8 84 16 158/72 95 Nasal Cannula 5.0 03/27/16 04:00 Nasal Cannula 5.0 03/27/16 03:59 37.1 78 18 162/77 95 Nasal Cannula 4.0 03/27/16 00:05 37.2 83 18 147/68 90 Nasal Cannula 4.0 03/26/16 23:59 Nasal Cannula 6.0 Review Cardiovascular: regular rate, rhythm, no murmur Abdomen: normal bowel sounds, non tender, soft Lungs: lungs clear, no respiratory distress Pre-Sedation Airway Assessment Oral Cavity: Dental Abnormalities Smoking Status: Former Smoker Mallampati Classification: Class I ASA Classification: Class II Notes The planned sedation has been discussed with the patient and consent obtained. I have identified the patient, determined the appropriateness of sedation and have assessed the patient immediately prior to the procedure. All medicine(s) and interventions are by my order.
[2016-03-27] MEDS ORDERED: HEPARIN SOD (PORCINE) 5000 UNIT/ML 1 ML VIAL ONE (10:11)
[2016-03-27] MEDS ORDERED: MIDAZOLAM HCL 1 MG/ML 2ML VIAL ONE (10:11)
[2016-03-27] MEDS ORDERED: FENTANYL CITRATE INJ 50 MCG/1 ML 2 ML VIAL ONE (10:11)
[2016-03-27] MEDS ORDERED: OXYCODONE/ACETAMINOPHEN 5-325 TAB PO PRN (10:15)
[2016-03-27] MEDS ORDERED: HEPARIN SOD (PORCINE) 5000 UNIT/ML 1 ML VIAL IV ONE (10:54)
[2016-03-27] MEDS ORDERED: LIDOCAINE HCL 1% 20 ML VIAL SQ ONE (10:54)
[2016-03-27] MEDS ORDERED: MIDAZOLAM HCL 1 MG/ML 2ML VIAL IV ONE (10:54)
[2016-03-27] MEDS ORDERED: FENTANYL CITRATE INJ 50 MCG/1 ML 2 ML VIAL IV ONE (10:54)
--- NOTE | 2016-03-27 11:02 | Procedure Note ---
Post-Moderate Sedation Plan General Date of Moderate Sedation Mar 27, 2016. Vital Signs: Vital Signs Past 12 Hours Date Time Temp Pulse Resp B/P Pulse Ox O2 Delivery O2 Flow Rate FiO2 03/27/16 07:26 36.8 84 16 158/72 95 Nasal Cannula 5.0 03/27/16 04:00 Nasal Cannula 5.0 03/27/16 03:59 37.1 78 18 162/77 95 Nasal Cannula 4.0 03/27/16 00:05 37.2 83 18 147/68 90 Nasal Cannula 4.0 03/26/16 23:59 Nasal Cannula 6.0 Review - Discharge Plan Post Moderate Sedation Plan: On clinical assessment, the patient appears to have tolerated the conscious sedation without complications. Patient is recovering as anticipated. Patient will continue to be monitored by nursing and may be discharged when conscious sedation discharge criteria are met.
--- NOTE | 2016-03-27 11:03 | [facility] Post Operative Brief Note ---
Immediate Operative Summary Operative Date Mar 27, 2016. Pre-Operative Diagnosis Acute Renal Failure Post-Operative Diagnosis Same Procedure(s) Performed Insertion of Perm Catheter, Right Internal Jugular Approach, Ultrasound Localization Of Right Internal Jugular Vein, Fluoroscopy For Positioning, Moderate Sedation from [address] Mena Turn Out Surgeon(s) None Estimated Blood Loss 5 Findings tip in distal SVC Specimens None Anesthesia Local with moderate concious sedation Complication(s) None Disposition
--- NOTE | 2016-03-27 11:32 | DIAGNOSTIC IMAGING REPORT ---
DATE OF PROCEDURE: 03/27/2016 PREOPERATIVE DIAGNOSIS: Acute renal failure. POSTOPERATIVE DIAGNOSIS: Same. PROCEDURE: 1. Insertion of right internal jugular vein PermCath. 2. Ultrasound localization right internal jugular vein. 3. Fluoroscopic imaging for positioning. 4. Moderate conscious sedation, 21 minutes. SURGEON: Dr. Mena. ANESTHETIC: Local with moderate conscious sedation. PROCEDURE INDICATIONS: The patient is a 45-year-old gentleman with acute renal failure in need of dialysis. PermCath was recommended. He understood the risks, options and benefits and agreed to have this procedure. OPERATION AND FINDINGS: The patient was taken to the angio suite and placed in supine position. After right side of neck and chest wall was prepped and draped in a sterile manner, local anesthetic was administered. Ultrasound was used to locate the internal jugular vein. It was of good caliber, compressed easily and was patent. Next, under ultrasound guidance, the needle was used to cannulate the internal jugular vein. Wire was then passed centrally under fluoroscopic imaging. It passed into the inferior vena cava. A stab wound was made in the anterior chest wall, a 19 cm PermCath was passed through the stab wound in the chest wall and brought out through the puncture site in the neck. The puncture site was then dilated and then the catheter was then passed through the 14 Khmer Peel-Away sheath of central position. The Peel-Away sheath was then removed. The catheter tip was in the distal superior vena cava. There was a nice curve in the catheter with no kinking. Both ports aspirated and flushed very easily. They were instilled with heparin. The catheter was then sutured to the anterior chest wall with 3-0 nylon sutures and the puncture site in the neck was closed with interrupted 4-0 Vicryl subcuticular suture and Dermabond for dressing. Dressing was then placed on the PermCath. We actually put Michael on to the cuff and into the tunnel due to the patient being on Plavix to help with hemostasis. After adequate hemostasis was noted, the patient left the angio suite in good condition and tolerated the procedure well.
--- NOTE | 2016-03-27 13:27 | Nephrology Progress Note ---
Nephrology Progress Note Date of Service Mar 27, 2016. Chief Complaint Follow-up for advanced CKD, acute kidney injury reaching end-stage renal disease. Lanie Davis was seen and examined in his room this afternoon. He is just back from TDC placement. Has been having decent urine output. Renal function has been worsening creatinine 5.6. Denies any significant shortness of breath, chest pain, nausea or anorexia. BP running high Review of Systems A complete review of systems was performed. Pertinent positives are noted above. All other systems are negative. Vital Signs Last 8 Hrs Date Time Temp Pulse Resp B/P Pulse Ox O2 Delivery O2 Flow Rate FiO2 03/27/16 07:26 36.8 84 16 158/72 95 Nasal Cannula 5.0 03/27/16 04:00 Nasal Cannula 5.0 03/27/16 03:59 37.1 78 18 162/77 95 Nasal Cannula 4.0 I & O 24-Hour Column 03/27/16 08:00 Intake Total 1160 ml Output Total 4200 ml Balance -3040 ml Last Recorded Weight Weight (Kilograms): 111.600 Physical Exam GENERAL: Middle-aged male, AAA x 3, pleasant, healthy-appearing, not in any distress. NECK: Supple, no JVD. RESPIRATORY: Normal breathing efforts, no accessory muscle use, clear to auscultation bilaterally, no wheezes or rales. CARDIOVASCULAR: S1, S2 normal, rate rhythm regular. EXTREMITY: No lower extremity edema NEURO: speech fluent. PSYCHIATRY: Normal mood and judgment Family History Negative for CKD/ESRD Social History Marital Status: in relationship Single. Lives w/ girlfriend. No children. 9th grade education. 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 Now medically disabled. Denies alcohol use. Uses chewing tobacco. Laboratory Results Past 24 Hours 03/27/16 06:25 03/27/16 06:25 Test 03/26/16 11:22 03/26/16 16:17 03/26/16 19:44 03/26/16 20:18 Bedside Glucose 149 mg/dl (70-99) 116 mg/dl (70-99) 78 mg/dl (70-99) Stool Occult Blood NEGATIVE (NEGATIVE) Test 03/27/16 06:25 03/27/16 07:03 Red Blood Count 2.83 M/uL (4.7-6.1) Mean Corpuscular Volume 81.6 fL (80-100) Mean Corpuscular Hemoglobin 27.6 pg (25-34) Mean Corpuscular Hemoglobin Concent 33.8 g/dl (32-36) RDW Standard Deviation 42.8 fL (36.4-46.3) RDW Coefficient of Variation 14.0 % (11.5-14.5) Mean Platelet Volume 9.1 fL (7.4-10.4) Anion Gap 13.0 mmol/L (3-11) Est Creatinine Clear Calc Drug Dose 19.7 ml/min Estimated GFR () 12.3 Estimated GFR (Non- 10.7 BUN/Creatinine Ratio 13.5 (10-20) Calcium Level 8.1 mg/dl (8.5-10.1) Bedside Glucose 105 mg/dl (70-99) Allergies Coded Allergies: Codeine (Verified Adverse Reaction, Unknown, DELIRIUM, 03/24/16) PT REPORTS AGGRESSIVE BEHAVIORS. Medications Current Inpatient Medications Medications (Trade) Dose Ordered Sig/Willie Route Start Time Stop Time Status Last Admin Dose Admin Heparin Sodium (Porcine) (Heparin Sq 5000 Unit/0.5ml) 5,000 unit Q8 SQ 03/24/16 14:00 04/23/16 13:59 03/27/16 05:56 5,000 UNIT Acetaminophen (Tylenol Tab) 650 mg Q4H PRN PO 03/24/16 03:15 04/23/16 03:14 Al Hydrox/Mg Hydrox/Simethicone (Maalox Max Susp) 15 ml Q4H PRN PO 03/24/16 03:15 04/23/16 03:14 Magnesium Hydroxide (Milk Of Magnesia Susp) 30 ml Q12H PRN PO 03/24/16 03:15 04/23/16 03:14 Ondansetron HCl (Zofran Inj) 4 mg Q6H PRN IV 03/24/16 03:15 04/23/16 03:14 Nitroglycerin (Nitrostat Tab) 0.4 mg UD PRN SL 03/24/16 03:15 04/23/16 03:14 Nitroglycerin (Nitroglycerin 2% Oint) 1 inch Q6H EXT 03/24/16 04:00 04/23/16 03:59 03/27/16 04:11 1 INCH Polyethylene (Miralax Powder Packet) 17 gm DAILY PRN PO 03/24/16 03:15 04/23/16 03:14 Aspirin (Ecotrin Tab) 81 mg DAILY PO 03/24/16 09:00 04/23/16 08:59 03/26/16 09:47 81 MG Atorvastatin Calcium (Lipitor Tab) 80 mg DAILY PO 03/24/16 09:00 04/23/16 08:59 03/26/16 09:47 80 MG Clopidogrel Bisulfate (plAVix TAB) 75 mg DAILY PO 03/24/16 09:00 04/23/16 08:59 03/26/16 09:47 75 MG Famotidine (Pepcid Tab) 20 mg DAILY PO 03/24/16 09:00 04/23/16 08:59 03/26/16 09:50 20 MG Hydralazine HCl (Apresoline Tab) 25 mg TID PO 03/24/16 09:00 04/23/16 08:59 03/26/16 20:18 25 MG Labetalol HCl (Normodyne Tab) 200 mg DAILY PO 03/24/16 09:00 04/23/16 08:59 03/27/16 08:52 200 MG Sodium Bicarbonate (Sodium Bicarbonate Tab) 650 mg DAILY PO 03/24/16 09:00 04/23/16 08:59 03/26/16 09:49 650 MG Amlodipine Besylate (Norvasc Tab) 10 mg QAM PO 03/24/16 09:00 04/23/16 08:59 03/27/16 08:53 10 MG Miscellaneous Information (Consult Glycemic Management Pharmacy) 1 ea DAILY PRN N/A 03/24/16 03:49 04/23/16 03:48 Miscellaneous (Iv Fluids Completed) 1 ea PRN PRN N/A 03/24/16 04:30 03/24/17 04:29 Glucose (Glucose 40% Gel) 15-30 GRAMS 15 GRAMS... UD PRN PO 03/24/16 05:00 04/23/16 04:59 Glucose (Glucose Chew Tab) 4-8 Tablets 4 Tabl... UD PRN PO 03/24/16 05:00 04/23/16 04:59 Dextrose (Dextrose 50% 50ML Syringe) 25-50ML OF 50% DW IV FOR... UD PRN IV 03/24/16 05:00 04/23/16 04:59 Glucagon (Glucagon Inj) 1 mg UD PRN SQ 03/24/16 05:00 04/23/16 04:59 Insulin Aspart SLIDING SCALE ACHS SC 03/24/16 07:00 04/23/16 06:59 03/26/16 17:44 7 UNITS Furosemide/Syringe (Lasix Inj/ Syringe) 8 ml @ 4 mls/min BID17 IV 03/24/16 17:00 04/23/16 20:59 03/27/16 09:02 4 MLS/MIN Diphenhydramine HCl (Benadryl Inj) 25 mg Q4 PRN IV 03/24/16 16:15 04/23/16 16:14 03/24/16 18:36 25 MG Albuterol/ Ipratropium 1 puffs 1 puffs QIDR INH 03/25/16 12:00 04/24/16 11:59 03/27/16 08:56 1 PUFFS Iron Sucrose/ Sodium Chloride (Venofer Inj/Nss 100ml) 105 ml @ 420 mls/hr DAILY@0900 IV 03/26/16 09:00 04/04/16 09:14 03/27/16 08:57 420 MLS/HR Insulin Glargine 50 unit 50 unit QAM SC 03/26/16 09:00 04/25/16 08:59 Future hold 03/26/16 09:53 50 UNIT Cefazolin Sodium (Ancef 2000mg/60 ml D5W) 60 ml @ 100 mls/hr PREOP IV 03/27/16 10:00 03/27/16 18:00 Impression (1) FIDE (acute kidney injury) (2) Chronic kidney disease (3) CHF (congestive heart failure) (4) Anemia (5) Hypertension (6) Diabetes Mr. Walker was admitted to the hospital for management of CHF. 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 He will require initiation of HD. PMH: CKD, nephrotic syndrome, AODM, HTN, obesity, hypercholesterolemia / hyperlipidemia, asthma, recurrent READ, h/o clostridium difficile Recommendations End-stage renal disease: --Plan for 1st dialysis treatment this afternoon for 2 hours, second rx tomorrow for 3 hours and and then IHD at outpatient dialysis unit at [facility] starting on . --start on renal diet and nephrocaps daily --continue on lasix 80 mg po BID --will have AVF as an outpatient HYPERTENSION: -- Patient has been started on hydralazine and labetalol by cardiology -- Continue amlodipine --Willr resume ACEI once established on IHD -- BP remains mildly elevated. This will improve following initiation of HD w/ UF ANEMIA: -- Patient has iron deficiency, IV iron therapy Secondary hyperparathyroidism: --will check phos and start on binder if needed.
[2016-03-27 14:45] LABS: HEPATITIS B AB POS
--- NOTE | 2016-03-27 14:52 | Hospitalist Progress Note ---
Hospitalist Progress Note Date of Service Mar 27, 2016. Subjective Pt evaluation today including: conversation w/ patient, physical exam, chart review, lab review, review of studies, review of inpatient medication list Voiding: no voiding problems Patient states that he had SOB Denies chest pain or palpitations or fever Dialysis catheter placed today without complications Constitutional: No fever Eyes: No worsening of vision ENT: No hearing loss Respiratory: No cough Cardiovascular: No chest pain Abdomen: No pain Musculoskeletal: No joint pain Male : No dysuria Neurologic: No memory loss Psychiatric: No depression symptoms Endo: No fatigue Skin: No rash Medications Current Inpatient Medications Medications (Trade) Dose Ordered Sig/Willie Route Start Time Stop Time Status Last Admin Dose Admin Heparin Sodium (Porcine) (Heparin Sq 5000 Unit/0.5ml) 5,000 unit Q8 SQ 03/24/16 14:00 04/23/16 13:59 03/27/16 14:00 5,000 UNIT Acetaminophen (Tylenol Tab) 650 mg Q4H PRN PO 03/24/16 03:15 04/23/16 03:14 Al Hydrox/Mg Hydrox/Simethicone (Maalox Max Susp) 15 ml Q4H PRN PO 03/24/16 03:15 04/23/16 03:14 Magnesium Hydroxide (Milk Of Magnesia Susp) 30 ml Q12H PRN PO 03/24/16 03:15 04/23/16 03:14 Ondansetron HCl (Zofran Inj) 4 mg Q6H PRN IV 03/24/16 03:15 04/23/16 03:14 Nitroglycerin (Nitrostat Tab) 0.4 mg UD PRN SL 03/24/16 03:15 04/23/16 03:14 Nitroglycerin (Nitroglycerin 2% Oint) 1 inch Q6H EXT 03/24/16 04:00 04/23/16 03:59 03/27/16 11:52 1 INCH Polyethylene (Miralax Powder Packet) 17 gm DAILY PRN PO 03/24/16 03:15 04/23/16 03:14 Aspirin (Ecotrin Tab) 81 mg DAILY PO 03/24/16 09:00 04/23/16 08:59 03/27/16 11:46 81 MG Atorvastatin Calcium (Lipitor Tab) 80 mg DAILY PO 03/24/16 09:00 04/23/16 08:59 03/27/16 11:46 80 MG Clopidogrel Bisulfate (plAVix TAB) 75 mg DAILY PO 03/24/16 09:00 04/23/16 08:59 03/27/16 11:45 75 MG Famotidine (Pepcid Tab) 20 mg DAILY PO 03/24/16 09:00 04/23/16 08:59 03/27/16 11:46 20 MG Hydralazine HCl (Apresoline Tab) 25 mg TID PO 03/24/16 09:00 04/23/16 08:59 03/27/16 11:45 25 MG Labetalol HCl (Normodyne Tab) 200 mg DAILY PO 03/24/16 09:00 04/23/16 08:59 03/27/16 08:52 200 MG Amlodipine Besylate (Norvasc Tab) 10 mg QAM PO 03/24/16 09:00 04/23/16 08:59 03/27/16 08:53 10 MG Miscellaneous Information (Consult Glycemic Management Pharmacy) 1 ea DAILY PRN N/A 03/24/16 03:49 04/23/16 03:48 Miscellaneous (Iv Fluids Completed) 1 ea PRN PRN N/A 03/24/16 04:30 03/24/17 04:29 Glucose (Glucose 40% Gel) 15-30 GRAMS 15 GRAMS... UD PRN PO 03/24/16 05:00 04/23/16 04:59 Glucose (Glucose Chew Tab) 4-8 Tablets 4 Tabl... UD PRN PO 03/24/16 05:00 04/23/16 04:59 Dextrose (Dextrose 50% 50ML Syringe) 25-50ML OF 50% DW IV FOR... UD PRN IV 03/24/16 05:00 04/23/16 04:59 Glucagon (Glucagon Inj) 1 mg UD PRN SQ 03/24/16 05:00 04/23/16 04:59 Insulin Aspart (novoLOG ASPART) SLIDING SCALE ACHS SC 03/24/16 07:00 04/23/16 06:59 03/27/16 11:00 4 UNITS Diphenhydramine HCl (Benadryl Inj) 25 mg Q4 PRN IV 03/24/16 16:15 04/23/16 16:14 03/24/16 18:36 25 MG Albuterol/ Ipratropium 1 puffs 1 puffs QIDR INH 03/25/16 12:00 04/24/16 11:59 03/27/16 11:46 1 PUFFS Iron Sucrose/ Sodium Chloride (Venofer Inj/Nss 100ml) 105 ml @ 420 mls/hr DAILY@0900 IV 03/26/16 09:00 04/04/16 09:14 03/27/16 08:57 420 MLS/HR Insulin Glargine (Lantus Solostar Pen) 50 unit QAM SC 03/26/16 09:00 04/25/16 08:59 Future hold 03/26/16 09:53 50 UNIT Lidocaine HCl (Xylocaine 1% Inj (Local)) 20 ml ONE ONCE SQ 03/27/16 10:54 03/27/16 10:55 03/27/16 10:54 20 ML Midazolam HCl (Versed Inj) 2 mg ONE ONCE IV 03/27/16 10:54 03/27/16 10:55 03/27/16 10:54 2 MG Fentanyl Citrate (Fentanyl Inj) 50 mcg ONE ONCE IV 03/27/16 10:54 03/27/16 10:55 03/27/16 10:54 50 MCG Heparin Sodium (Porcine) (Heparin Sod 5000u/ml(Porcine)) 16,000 unit ONE ONCE IV 03/27/16 10:54 03/27/16 10:55 03/27/16 10:54 16,000 UNIT Oxycodone/ Acetaminophen (Percocet 5-325mg Tab) 1 tab Q4H PRN PO 03/27/16 10:15 04/10/16 10:14 Furosemide (Lasix Tab) 80 mg BID17 PO 03/27/16 17:00 04/26/16 16:59 Vitamin B Complex/ Vit C/Folic Acid (Nephrocaps) 1 cap QAM PO 03/28/16 09:00 04/27/16 08:59 Objective Vital Signs Date Time Temp Pulse Resp B/P Pulse Ox O2 Delivery O2 Flow Rate FiO2 03/27/16 13:52 75 18 166/77 95 Room Air 3.0 03/27/16 12:09 Nasal Cannula 4.0 03/27/16 12:00 72 18 151/75 95 Nasal Cannula 4.0 03/27/16 11:52 73 18 161/80 96 Nasal Cannula 4.0 03/27/16 08:00 Nasal Cannula 4.0 03/27/16 07:26 36.8 84 16 158/72 95 Nasal Cannula 5.0 03/27/16 04:00 Nasal Cannula 5.0 03/27/16 03:59 37.1 78 18 162/77 95 Nasal Cannula 4.0 03/27/16 00:05 37.2 83 18 147/68 90 Nasal Cannula 4.0 03/26/16 23:59 Nasal Cannula 6.0 03/26/16 20:00 Nasal Cannula 5.0 03/26/16 19:14 37.0 82 18 171/83 93 Nasal Cannula 4.0 Humidified Oxygen 03/26/16 16:00 Nasal Cannula 4.0 03/26/16 15:20 36.9 78 20 134/63 90 Nasal Cannula 4.0 Humidified Oxygen Physical Exam General Appearance: WD/WN, no apparent distress Eyes: normal inspection ENT: normal ENT inspection Neck: supple Respiratory/Chest: chest non-tender, + decreased breath sounds, + crackles Cardiovascular: regular rate, rhythm Abdomen: normal bowel sounds, non tender Extremities: normal range of motion, non-tender 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, no motor/sensory deficits, alert, oriented x 3 Skin: normal color, warm/dry Lymphatic: no adenopathy Laboratory Results Last 24 Hours Test 03/26/16 16:17 03/26/16 19:44 03/26/16 20:18 03/27/16 06:25 Bedside Glucose 116 mg/dl 78 mg/dl Stool Occult Blood NEGATIVE White Blood Count 7.00 K/uL Red Blood Count 2.83 M/uL Hemoglobin 7.8 g/dL Hematocrit 23.1 % Mean Corpuscular Volume 81.6 fL Mean Corpuscular Hemoglobin 27.6 pg Mean Corpuscular Hemoglobin Concent 33.8 g/dl RDW Standard Deviation 42.8 fL RDW Coefficient of Variation 14.0 % Platelet Count 236 K/uL Mean Platelet Volume 9.1 fL Sodium Level 140 mmol/L Potassium Level 4.5 mmol/L Chloride Level 107 mmol/L Carbon Dioxide Level 20 mmol/L Anion Gap 13.0 mmol/L Blood Urea Nitrogen 78 mg/dl Creatinine 5.80 mg/dl Est Creatinine Clear Calc Drug Dose 19.7 ml/min Estimated GFR () 12.3 Estimated GFR (Non- 10.7 BUN/Creatinine Ratio 13.5 Random Glucose 106 mg/dl Calcium Level 8.1 mg/dl Test 03/27/16 07:03 03/27/16 11:39 03/27/16 13:33 Bedside Glucose 105 mg/dl 112 mg/dl Assessment and Plan End Stage Renal dz with volume overload - dialysis catheter placed on 03.27 -appreciate nephrology consult -plan for dialysis today - continue strict I/O's - cont furosemide HTN - continue labetolol and norvasc - controlled Type II DMII - cont SSI Anemia - multifactorial - received 1 unit of PRBCs on 03.24.16 DVT prophylaxis - Sub-q heparin.
[2016-03-27] MEDS: FUROSEMIDE 80 MG TAB PO SCH (18:52)
[2016-03-28] VITALS (24 sets, daily range): BP systolic 142–176; BP diastolic 63–91; PULSE 69–81; TEMP 36.6–37.5; O2SAT 84–96
[2016-03-28] MEDS: NITROGLYCERIN OINT 2% 1GM PACKET EXT SCH ×4 (04:07→21:08)
[2016-03-28] MEDS: HEPARIN SOD 5000 UNIT/0.5 ML CARP SQ SCH ×3 (06:17→21:09)
[2016-03-28 06:29] LABS: HEMATOCRIT 23.4 % (42-52); MEAN CORPUSCULAR HEMOGLOBIN 27.7 pg (25-34); MEAN CORPUSCULAR HGB CONC 34.2 g/dl (32-36); MEAN PLATELET VOLUME 9.5 fL (7.4-10.4); PLATELET COUNT 273 K/uL (130-400); RED BLOOD COUNT 2.89 M/uL (4.7-6.1); WHITE BLOOD COUNT 7.49 K/uL (4.8-10.8)
[2016-03-28 07:13] LABS: BUN/CREATININE RATIO 12.5 (10-20); CALCIUM 7.7 mg/dl (8.5-10.1); CREATININE 4.7 mg/dl (0.60-1.40); PHOSPHORUS 5.1 mg/dl (2.5-4.9); POTASSIUM 3.8 mmol/L (3.5-5.1)
[2016-03-28] MEDS: ATORVASTATIN 40 MG TAB PO SCH (07:56)
[2016-03-28] MEDS: CLOPIDOGREL BISULFATE 75 MG TAB PO SCH (07:56)
[2016-03-28] MEDS: FAMOTIDINE 20 MG TAB PO SCH (07:57)
[2016-03-28] MEDS: NEPHROCAPS PO SCH (07:57)
[2016-03-28] MEDS: AMLODIPINE BESYLATE 5 MG TAB PO SCH (07:57)
[2016-03-28] MEDS: LABETALOL HCL 200 MG TAB PO SCH (07:58)
[2016-03-28] MEDS: FUROSEMIDE 80 MG TAB PO SCH ×2 (07:58→17:09)
[2016-03-28] MEDS: IPRATROPIUM BROMIDE/ALBUTEROL respimat INH INH SCH ×4 (07:59→21:10)
[2016-03-28] MEDS: ASPIRIN 81 MG ECTAB PO SCH (07:59)
[2016-03-28] MEDS: INSULIN ASPART 100 UNITS/ML 3 ML PEN SC SCH ×4 (08:02→21:00)
--- NOTE | 2016-03-28 09:16 | Pharmacy Progress Note ---
Glycemic Control: Progress Nt Date of Service Mar 28, 2016. Scope Glycemic Pharmacist consulted by Dr Martinez on 03/24/16 for glycemic control and to write orders per [facility] inpatient glycemic control protocol. Objective Accuchecks BSG (last 24hrs): Test 03/27/16 11:39 03/27/16 18:07 03/27/16 20:13 03/28/16 05:48 Bedside Glucose 112 mg/dl (70-99) 140 mg/dl (70-99) 129 mg/dl (70-99) Random Glucose 86 mg/dl (70-99) Laboratory Data (last 24hrs) Test 03/28/16 05:48 Anion Gap 11.0 mmol/L BUN/Creatinine Ratio 12.5 Blood Urea Nitrogen 59 mg/dl Creatinine 4.70 mg/dl Potassium Level 3.8 mmol/L Sodium Level 139 mmol/L White Blood Count 7.49 K/uL HbA1c: Test 03/24/16 05:56 Hemoglobin A1c 7.5 % (4.5-5.6) H Recent Pertinent Medications Outpatient Anti-diabetic Regimen: * Toujeo 80 units SQ QAM * A1c = 7.5 % 03/24/16 Risk Factors for Insulin Resistance: * Diet: Type 2 DM/ Renal/ Low Na Assessment & Plan ASSESSMENT: * 45 yo T2D M admitted with SOB/pulmonary edema, initiated on basal/bolus regimen for the management of BSGs * At home patient is controlled with Tujeo 80 units QAM (has been on hold since admission) * BSGs have been trending on the lower end since admission with much less Lantus on board then what the patient typically takes * A reduced dose was given yesterday due to IJ THC insertion and Fasting BSG this AM 98 mg/dL * Difficult to assess needs today- patient received HD this AM and was transferred this afternoon with no lunch BSG check PLAN FOR INPATIENT GLYCEMIC CONTROL: * Give Lantus 20 units X 1- reassess in the AM * Correctional Insulin with NOVOLOG per scale ACHS or Q6hrs while NPO + 0200 check * Goal Range: Low 110 mg/dL - High 140 mg/dL * Correction Factor: 30 mg/dL/unit * Nutritional / Prandial insulin per carb ratio of 1 unit per 10 grams CHO consumed * Please note that the plan above was derived based on current level of insulin resistance and hospital stress. These recommendations are appropriate for inpatient admission only. Plan of care upon discharge will need to be reassessed to avoid potential outpatient hypo/hyperglycemia. Thank you.
--- NOTE | 2016-03-28 12:25 | Dialysis Progress Note ---
Hemodialysis Note Date of Service Mar 28, 2016. Chief Complaint Follow-up for advanced CKD, acute kidney injury reaching end-stage renal disease. Lanie Davis was seen and examined during hemodialysis treatment this morning. This was his 2nd dialysis treatment, plan for 3 hours, he has been tolerating dialysis well, blood pressure remained stable. Denies any aim chest pain, dizziness, lightheadedness or leg cramp. Review of Systems A complete review of systems was performed. Pertinent positives are noted above. All other systems are negative. Vital Signs Last 8 Hrs Date Time Temp Pulse Resp B/P Pulse Ox O2 Delivery O2 Flow Rate FiO2 03/28/16 11:30 73 156/77 03/28/16 11:15 72 146/78 03/28/16 11:00 72 156/81 03/28/16 10:45 73 163/82 03/28/16 10:30 74 142/87 03/28/16 10:15 75 153/91 03/28/16 10:00 73 148/74 03/28/16 09:45 72 142/63 03/28/16 09:35 74 160/74 03/28/16 09:28 37.2 81 145/88 03/28/16 08:20 94 Nasal Cannula 2.0 03/28/16 08:15 84 Room Air 03/28/16 08:00 94 Nasal Cannula 2.0 03/28/16 07:51 37.1 75 20 147/64 91 Nasal Cannula 3.0 I & O 24-Hour Column 03/28/16 07:59 Intake Total 1440 ml Output Total 3375 ml Balance -1935 ml Last Recorded Weight Weight (Kilograms): 112.800 Physical Exam GENERAL: Middle-aged male, AAA x 3, pleasant, healthy-appearing, not in any distress. NECK: Supple, no JVD. RESPIRATORY: Normal breathing efforts, no accessory muscle use, clear to auscultation bilaterally, no wheezes or rales. CARDIOVASCULAR: S1, S2 normal, rate rhythm regular. EXTREMITY: No lower extremity edema NEURO: speech fluent. PSYCHIATRY: Normal mood and judgment Family History Negative for CKD/ESRD Social History Marital Status: in relationship Single. Lives w/ girlfriend. No children. 9th grade education. 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 Now medically disabled. Denies alcohol use. Uses chewing tobacco. Laboratory Results Past 24 Hours 03/28/16 05:48 03/28/16 05:48 Test 03/27/16 13:33 03/27/16 18:07 03/27/16 20:13 03/28/16 05:48 Hepatitis B Surface Antigen NEG (NEG) Hepatitis B Surface Antibody POS Bedside Glucose 140 mg/dl (70-99) 129 mg/dl (70-99) Red Blood Count 2.89 M/uL (4.7-6.1) Mean Corpuscular Volume 81.0 fL (80-100) Mean Corpuscular Hemoglobin 27.7 pg (25-34) Mean Corpuscular Hemoglobin Concent 34.2 g/dl (32-36) RDW Standard Deviation 40.7 fL (36.4-46.3) RDW Coefficient of Variation 13.7 % (11.5-14.5) Mean Platelet Volume 9.5 fL (7.4-10.4) Anion Gap 11.0 mmol/L (3-11) Est Creatinine Clear Calc Drug Dose 24.3 ml/min Estimated GFR () 15.9 Estimated GFR (Non- 13.7 BUN/Creatinine Ratio 12.5 (10-20) Calcium Level 7.7 mg/dl (8.5-10.1) Phosphorus Level 5.1 mg/dl (2.5-4.9) Albumin 1.8 gm/dl (3.4-5.0) Allergies Coded Allergies: Codeine (Verified Adverse Reaction, Unknown, DELIRIUM, 03/24/16) PT REPORTS AGGRESSIVE BEHAVIORS. Medications Current Inpatient Medications Medications (Trade) Dose Ordered Sig/Willie Route Start Time Stop Time Status Last Admin Dose Admin Heparin Sodium (Porcine) (Heparin Sq 5000 Unit/0.5ml) 5,000 unit Q8 SQ 03/24/16 14:00 04/23/16 13:59 03/28/16 06:17 5,000 UNIT Acetaminophen (Tylenol Tab) 650 mg Q4H PRN PO 03/24/16 03:15 04/23/16 03:14 Al Hydrox/Mg Hydrox/Simethicone (Maalox Max Susp) 15 ml Q4H PRN PO 03/24/16 03:15 04/23/16 03:14 Magnesium Hydroxide (Milk Of Magnesia Susp) 30 ml Q12H PRN PO 03/24/16 03:15 04/23/16 03:14 Ondansetron HCl (Zofran Inj) 4 mg Q6H PRN IV 03/24/16 03:15 04/23/16 03:14 Nitroglycerin (Nitrostat Tab) 0.4 mg UD PRN SL 03/24/16 03:15 04/23/16 03:14 Nitroglycerin (Nitroglycerin 2% Oint) 1 inch Q6H EXT 03/24/16 04:00 04/23/16 03:59 03/28/16 04:07 1 INCH Polyethylene (Miralax Powder Packet) 17 gm DAILY PRN PO 03/24/16 03:15 04/23/16 03:14 Aspirin (Ecotrin Tab) 81 mg DAILY PO 03/24/16 09:00 04/23/16 08:59 03/28/16 07:59 81 MG Atorvastatin Calcium (Lipitor Tab) 80 mg DAILY PO 03/24/16 09:00 04/23/16 08:59 03/28/16 07:56 80 MG Clopidogrel Bisulfate (plAVix TAB) 75 mg DAILY PO 03/24/16 09:00 04/23/16 08:59 03/28/16 07:56 75 MG Famotidine (Pepcid Tab) 20 mg DAILY PO 03/24/16 09:00 04/23/16 08:59 03/28/16 07:57 20 MG Hydralazine HCl (Apresoline Tab) 25 mg TID PO 03/24/16 09:00 04/23/16 08:59 03/28/16 07:57 25 MG Labetalol HCl (Normodyne Tab) 200 mg DAILY PO 03/24/16 09:00 04/23/16 08:59 03/28/16 07:58 200 MG Amlodipine Besylate (Norvasc Tab) 10 mg QAM PO 03/24/16 09:00 04/23/16 08:59 03/28/16 07:57 10 MG Miscellaneous Information (Consult Glycemic Management Pharmacy) 1 ea DAILY PRN N/A 03/24/16 03:49 04/23/16 03:48 Miscellaneous (Iv Fluids Completed) 1 ea PRN PRN N/A 03/24/16 04:30 03/24/17 04:29 Glucose (Glucose 40% Gel) 15-30 GRAMS 15 GRAMS... UD PRN PO 03/24/16 05:00 04/23/16 04:59 Glucose (Glucose Chew Tab) 4-8 Tablets 4 Tabl... UD PRN PO 03/24/16 05:00 04/23/16 04:59 Dextrose (Dextrose 50% 50ML Syringe) 25-50ML OF 50% DW IV FOR... UD PRN IV 03/24/16 05:00 04/23/16 04:59 Glucagon (Glucagon Inj) 1 mg UD PRN SQ 03/24/16 05:00 04/23/16 04:59 Insulin Aspart (novoLOG ASPART) SLIDING SCALE ACHS SC 03/24/16 07:00 04/23/16 06:59 03/27/16 18:14 4 UNITS Diphenhydramine HCl (Benadryl Inj) 25 mg Q4 PRN IV 03/24/16 16:15 04/23/16 16:14 03/24/16 18:36 25 MG Albuterol/ Ipratropium 1 puffs 1 puffs QIDR INH 03/25/16 12:00 04/24/16 11:59 03/28/16 07:59 1 PUFFS Iron Sucrose/ Sodium Chloride (Venofer Inj/Nss 100ml) 105 ml @ 420 mls/hr DAILY@0900 IV 03/26/16 09:00 04/04/16 09:14 03/27/16 08:57 420 MLS/HR Oxycodone/ Acetaminophen (Percocet 5-325mg Tab) 1 tab Q4H PRN PO 03/27/16 10:15 04/10/16 10:14 Furosemide (Lasix Tab) 80 mg BID17 PO 03/27/16 17:00 04/26/16 16:59 03/28/16 07:58 80 MG Vitamin B Complex/ Vit C/Folic Acid (Nephrocaps) 1 cap QAM PO 03/28/16 09:00 04/27/16 08:59 03/28/16 07:57 1 CAP Impression (1) FIDE (acute kidney injury) (2) Chronic kidney disease (3) CHF (congestive heart failure) (4) Anemia (5) Hypertension (6) Diabetes Mr. Walker was admitted to the hospital for management of CHF. 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 He will require initiation of HD. PMH: CKD, nephrotic syndrome, AODM, HTN, obesity, hypercholesterolemia / hyperlipidemia, asthma, recurrent READ, h/o clostridium difficile Recommendations End-stage renal disease: --having 2nd dialysis treatment now for 3 hours, and then IHD at outpatient dialysis unit at [facility] starting on . --start on renal diet and nephrocaps daily --continue on lasix 80 mg po BID --will have AVF as an outpatient HYPERTENSION: -- Continue amlodipine -- start on lisinopril 40 milligrams p.o. daily -- discontinue hydralazine ANEMIA: -- Patient has iron deficiency, on IV iron therapy Secondary hyperparathyroidism: --Start on Tums 1 tablet 3 times daily with each meal As phosphate binder.
[2016-03-28] MEDS ORDERED: CALCIUM CARBONATE 500 MG CHEWABLE PO PRN (12:30)
[2016-03-28] MEDS: IRON SUCROSE INJ 100 MG in SODIUM CHLORIDE 0.9% 100ML 100 ML IV SCH (13:02)
--- NOTE | 2016-03-28 14:38 | Hospitalist Progress Note ---
Hospitalist Progress Note Date of Service Mar 28, 2016. Subjective Pt evaluation today including: conversation w/ patient, physical exam, chart review, lab review, review of studies, review of inpatient medication list Patient mildly SOB however feels better than day prior Dialysis today without complication Denies any fever or SOB Constitutional: No fever Eyes: No worsening of vision ENT: No hearing loss Respiratory: No cough, No shortness of breath Cardiovascular: No chest pain, No edema Abdomen: No constipation, No pain, No vomiting Musculoskeletal: No joint pain Male : No dysuria Neurologic: No memory loss Psychiatric: No depression symptoms Skin: No rash Medications Current Inpatient Medications Medications (Trade) Dose Ordered Sig/Willie Route Start Time Stop Time Status Last Admin Dose Admin Heparin Sodium (Porcine) (Heparin Sq 5000 Unit/0.5ml) 5,000 unit Q8 SQ 03/24/16 14:00 04/23/16 13:59 03/28/16 06:17 5,000 UNIT Acetaminophen (Tylenol Tab) 650 mg Q4H PRN PO 03/24/16 03:15 04/23/16 03:14 Al Hydrox/Mg Hydrox/Simethicone (Maalox Max Susp) 15 ml Q4H PRN PO 03/24/16 03:15 04/23/16 03:14 Magnesium Hydroxide (Milk Of Magnesia Susp) 30 ml Q12H PRN PO 03/24/16 03:15 04/23/16 03:14 Ondansetron HCl (Zofran Inj) 4 mg Q6H PRN IV 03/24/16 03:15 04/23/16 03:14 Nitroglycerin (Nitrostat Tab) 0.4 mg UD PRN SL 03/24/16 03:15 04/23/16 03:14 Nitroglycerin (Nitroglycerin 2% Oint) 1 inch Q6H EXT 03/24/16 04:00 04/23/16 03:59 03/28/16 04:07 1 INCH Polyethylene (Miralax Powder Packet) 17 gm DAILY PRN PO 03/24/16 03:15 04/23/16 03:14 Aspirin (Ecotrin Tab) 81 mg DAILY PO 03/24/16 09:00 04/23/16 08:59 03/28/16 07:59 81 MG Atorvastatin Calcium (Lipitor Tab) 80 mg DAILY PO 03/24/16 09:00 04/23/16 08:59 03/28/16 07:56 80 MG Clopidogrel Bisulfate (plAVix TAB) 75 mg DAILY PO 03/24/16 09:00 04/23/16 08:59 03/28/16 07:56 75 MG Famotidine (Pepcid Tab) 20 mg DAILY PO 03/24/16 09:00 04/23/16 08:59 03/28/16 07:57 20 MG Labetalol HCl (Normodyne Tab) 200 mg DAILY PO 03/24/16 09:00 04/23/16 08:59 03/28/16 07:58 200 MG Amlodipine Besylate (Norvasc Tab) 10 mg QAM PO 03/24/16 09:00 04/23/16 08:59 03/28/16 07:57 10 MG Miscellaneous Information (Consult Glycemic Management Pharmacy) 1 ea DAILY PRN N/A 03/24/16 03:49 04/23/16 03:48 Miscellaneous (Iv Fluids Completed) 1 ea PRN PRN N/A 03/24/16 04:30 03/24/17 04:29 Glucose (Glucose 40% Gel) 15-30 GRAMS 15 GRAMS... UD PRN PO 03/24/16 05:00 04/23/16 04:59 Glucose (Glucose Chew Tab) 4-8 Tablets 4 Tabl... UD PRN PO 03/24/16 05:00 04/23/16 04:59 Dextrose (Dextrose 50% 50ML Syringe) 25-50ML OF 50% DW IV FOR... UD PRN IV 03/24/16 05:00 04/23/16 04:59 Glucagon (Glucagon Inj) 1 mg UD PRN SQ 03/24/16 05:00 04/23/16 04:59 Insulin Aspart (novoLOG ASPART) SLIDING SCALE ACHS SC 03/24/16 07:00 04/23/16 06:59 03/27/16 18:14 4 UNITS Diphenhydramine HCl (Benadryl Inj) 25 mg Q4 PRN IV 03/24/16 16:15 04/23/16 16:14 03/24/16 18:36 25 MG Albuterol/ Ipratropium 1 puffs 1 puffs QIDR INH 03/25/16 12:00 04/24/16 11:59 03/28/16 13:02 1 PUFFS Iron Sucrose/ Sodium Chloride (Venofer Inj/Nss 100ml) 105 ml @ 420 mls/hr DAILY@0900 IV 03/26/16 09:00 04/04/16 09:14 03/28/16 13:02 420 MLS/HR Oxycodone/ Acetaminophen (Percocet 5-325mg Tab) 1 tab Q4H PRN PO 03/27/16 10:15 04/10/16 10:14 Furosemide (Lasix Tab) 80 mg BID17 PO 03/27/16 17:00 04/26/16 16:59 03/28/16 07:58 80 MG Vitamin B Complex/ Vit C/Folic Acid (Nephrocaps) 1 cap QAM PO 03/28/16 09:00 04/27/16 08:59 03/28/16 07:57 1 CAP Lisinopril (Zestril Tab) 40 mg QAM PO 03/29/16 09:00 04/28/16 08:59 Calcium Carbonate (Tums Chew Tab) 500 mg AC PRN PO 03/28/16 12:30 04/27/16 12:29 Objective Vital Signs Date Time Temp Pulse Resp B/P Pulse Ox O2 Delivery O2 Flow Rate FiO2 03/28/16 13:06 78 170/77 03/28/16 12:37 37.2 71 171/82 03/28/16 12:30 72 143/76 03/28/16 12:15 70 149/75 03/28/16 12:00 69 148/79 03/28/16 11:45 71 150/75 03/28/16 11:30 73 156/77 03/28/16 11:15 72 146/78 03/28/16 11:00 72 156/81 03/28/16 10:45 73 163/82 03/28/16 10:30 74 142/87 03/28/16 10:15 75 153/91 03/28/16 10:00 73 148/74 03/28/16 09:45 72 142/63 03/28/16 09:35 74 160/74 03/28/16 09:28 37.2 81 145/88 03/28/16 08:20 94 Nasal Cannula 2.0 03/28/16 08:15 84 Room Air 03/28/16 08:00 94 Nasal Cannula 2.0 03/28/16 07:51 37.1 75 20 147/64 91 Nasal Cannula 3.0 03/28/16 04:07 80 148/71 03/28/16 00:01 37.5 78 18 146/76 96 Nasal Cannula 2.0 03/28/16 00:00 Room Air 03/27/16 19:11 36.6 78 20 153/72 90 Room Air 03/27/16 16:45 36.7 77 18 165/75 94 Room Air 03/27/16 16:45 Room Air 03/27/16 16:35 37.3 77 167/87 03/27/16 16:15 76 165/83 03/27/16 15:45 75 167/78 03/27/16 15:33 36.9 75 18 95 3.0 03/27/16 15:30 75 146/82 03/27/16 15:15 76 162/83 03/27/16 15:00 74 158/80 03/27/16 14:45 75 165/81 03/27/16 14:30 77 167/90 Physical Exam General Appearance: WD/WN, no apparent distress Eyes: normal inspection, sclerae normal ENT: normal ENT inspection Neck: supple Respiratory/Chest: chest non-tender, + crackles Cardiovascular: regular rate, rhythm, no edema Abdomen: normal bowel sounds, non tender, soft Extremities: normal range of motion, non-tender Neurologic/Psychiatric: 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 as tested, no motor/sensory deficits, alert, oriented x 3 Skin: normal color Lymphatic: no adenopathy Laboratory Results Last 24 Hours Test 03/27/16 18:07 03/27/16 20:13 03/28/16 05:48 Bedside Glucose 140 mg/dl 129 mg/dl White Blood Count 7.49 K/uL Red Blood Count 2.89 M/uL Hemoglobin 8.0 g/dL Hematocrit 23.4 % Mean Corpuscular Volume 81.0 fL Mean Corpuscular Hemoglobin 27.7 pg Mean Corpuscular Hemoglobin Concent 34.2 g/dl RDW Standard Deviation 40.7 fL RDW Coefficient of Variation 13.7 % Platelet Count 273 K/uL Mean Platelet Volume 9.5 fL Sodium Level 139 mmol/L Potassium Level 3.8 mmol/L Chloride Level 103 mmol/L Carbon Dioxide Level 25 mmol/L Anion Gap 11.0 mmol/L Blood Urea Nitrogen 59 mg/dl Creatinine 4.70 mg/dl Est Creatinine Clear Calc Drug Dose 24.3 ml/min Estimated GFR () 15.9 Estimated GFR (Non- 13.7 BUN/Creatinine Ratio 12.5 Random Glucose 86 mg/dl Calcium Level 7.7 mg/dl Phosphorus Level 5.1 mg/dl Albumin 1.8 gm/dl Assessment and Plan End Stage Renal dz with volume overload - temporary dialysis catheter placed on 03.27 by vascular surgery -appreciate nephrology consult - dialyzed today - since [place] dialysis [place] - continue strict I/O's - cont furosemide - dialysis arranged for [facility] on Sunday//Sunday HTN - continue labetolol and norvasc - controlled Type II DMII - cont SSI Anemia - multifactorial - received 1 unit of pRBCs on 03.24.17 - HGB stable DVT prophylaxis - Sub-q heparin.
[2016-03-28] MEDS ORDERED: INSULIN GLARGINE SOLOSTAR 100 UNITS/ML 3 ML PEN SC ONE (15:00)
[2016-03-29] VITALS (20 sets, daily range): BP systolic 122–198; BP diastolic 51–94; PULSE 63–83; TEMP 36.8–37.3; O2SAT 92–98
[2016-03-29] MEDS ORDERED: INSULIN ASPART 100 UNITS/ML 3 ML PEN SC SCH (02:00)
[2016-03-29] MEDS: NITROGLYCERIN OINT 2% 1GM PACKET EXT SCH ×2 (04:04→12:37)
[2016-03-29] MEDS: HEPARIN SOD 5000 UNIT/0.5 ML CARP SQ SCH ×2 (05:39→12:44)
[2016-03-29] MEDS: IPRATROPIUM BROMIDE/ALBUTEROL respimat INH INH SCH ×2 (07:55→12:38)
[2016-03-29] MEDS: INSULIN ASPART 100 UNITS/ML 3 ML PEN SC SCH ×2 (07:59→12:43)
[2016-03-29 08:40] LABS: HEMATOCRIT 26.5 % (42-52); MEAN CELL VOLUME 81.3 fL (80-100); MEAN CORPUSCULAR HGB CONC 33.2 g/dl (32-36); MEAN PLATELET VOLUME 9.5 fL (7.4-10.4); PLATELET COUNT 306 K/uL (130-400); RED BLOOD COUNT 3.26 M/uL (4.7-6.1); WHITE BLOOD COUNT 8.37 K/uL (4.8-10.8)
[2016-03-29] MEDS ORDERED: LISINOPRIL 40 MG TAB PO SCH (09:00)
[2016-03-29] MEDS ORDERED: LABETALOL HCL 200 MG TAB PO SCH (09:00)
[2016-03-29 09:25] LABS: BUN/CREATININE RATIO 9.9 (10-20); CALCIUM 8.1 mg/dl (8.5-10.1); CREATININE 4.5 mg/dl (0.60-1.40)
[2016-03-29] MEDS ORDERED: B-COCAP20 PO (10:16)
--- NOTE | 2016-03-29 10:16 | Dialysis Progress Note ---
Hemodialysis Note Date of Service Mar 29, 2016. Chief Complaint Follow-up for end-stage renal disease. Lanie Davis was seen and examined during hemodialysis treatment this morning. This was his 3rd dialysis treatment, plan for 3 hours, he has been tolerating dialysis well, blood pressure remained stable. Denies any aim chest pain, dizziness, lightheadedness or leg cramp. Review of Systems A complete review of systems was performed. Pertinent positives are noted above. All other systems are negative. Vital Signs Last 8 Hrs Date Time Temp Pulse Resp B/P Pulse Ox O2 Delivery O2 Flow Rate FiO2 03/29/16 09:45 74 170/94 03/29/16 09:30 77 170/86 03/29/16 09:15 82 156/81 03/29/16 09:00 82 168/81 03/29/16 08:50 80 195/90 03/29/16 08:00 Room Air 03/29/16 07:53 36.8 74 20 162/79 92 Room Air 03/29/16 04:04 168/66 I & O 24-Hour Column 03/29/16 08:00 Intake Total 100 ml Output Total 1950 ml Balance -1850 ml Last Recorded Weight Weight (Kilograms): 111.300 Physical Exam GENERAL: Middle-aged male, AAA x 3, pleasant, healthy-appearing, not in any distress. NECK: Supple, no JVD. RESPIRATORY: Normal breathing efforts, no accessory muscle use, clear to auscultation bilaterally, no wheezes or rales. CARDIOVASCULAR: S1, S2 normal, rate rhythm regular. EXTREMITY: No lower extremity edema NEURO: speech fluent. PSYCHIATRY: Normal mood and judgment Family History Negative for CKD/ESRD Social History Marital Status: in relationship Single. Lives w/ girlfriend. No children. 9th grade education. 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 Now medically disabled. Denies alcohol use. Uses chewing tobacco. Laboratory Results Past 24 Hours 03/29/16 08:12 03/29/16 08:12 Test 03/28/16 16:24 03/28/16 20:33 03/29/16 02:01 03/29/16 07:24 Bedside Glucose 178 mg/dl (70-99) 106 mg/dl (70-99) 151 mg/dl (70-99) 143 mg/dl (70-99) Test 03/29/16 08:12 Red Blood Count 3.26 M/uL (4.7-6.1) Mean Corpuscular Volume 81.3 fL (80-100) Mean Corpuscular Hemoglobin 27.0 pg (25-34) Mean Corpuscular Hemoglobin Concent 33.2 g/dl (32-36) RDW Standard Deviation 41.3 fL (36.4-46.3) RDW Coefficient of Variation 13.7 % (11.5-14.5) Mean Platelet Volume 9.5 fL (7.4-10.4) Anion Gap 12.0 mmol/L (3-11) Est Creatinine Clear Calc Drug Dose 25.4 ml/min Estimated GFR () 16.8 Estimated GFR (Non- 14.5 BUN/Creatinine Ratio 9.9 (10-20) Calcium Level 8.1 mg/dl (8.5-10.1) Allergies Coded Allergies: Codeine (Verified Adverse Reaction, Unknown, DELIRIUM, 03/24/16) PT REPORTS AGGRESSIVE BEHAVIORS. Medications Current Inpatient Medications Medications (Trade) Dose Ordered Sig/Willie Route Start Time Stop Time Status Last Admin Dose Admin Heparin Sodium (Porcine) (Heparin Sq 5000 Unit/0.5ml) 5,000 unit Q8 SQ 03/24/16 14:00 04/23/16 13:59 03/29/16 05:39 5,000 UNIT Acetaminophen (Tylenol Tab) 650 mg Q4H PRN PO 03/24/16 03:15 04/23/16 03:14 Al Hydrox/Mg Hydrox/Simethicone (Maalox Max Susp) 15 ml Q4H PRN PO 03/24/16 03:15 04/23/16 03:14 Magnesium Hydroxide (Milk Of Magnesia Susp) 30 ml Q12H PRN PO 03/24/16 03:15 04/23/16 03:14 Ondansetron HCl (Zofran Inj) 4 mg Q6H PRN IV 03/24/16 03:15 04/23/16 03:14 03/29/16 07:54 4 MG Nitroglycerin (Nitrostat Tab) 0.4 mg UD PRN SL 03/24/16 03:15 04/23/16 03:14 Nitroglycerin (Nitroglycerin 2% Oint) 1 inch Q6H EXT 03/24/16 04:00 04/23/16 03:59 2/1/17 04:04 1 INCH Polyethylene (Miralax Powder Packet) 17 gm DAILY PRN PO 03/24/16 03:15 04/23/16 03:14 Aspirin (Ecotrin Tab) 81 mg DAILY PO 03/24/16 09:00 04/23/16 08:59 03/28/16 07:59 81 MG Atorvastatin Calcium (Lipitor Tab) 80 mg DAILY PO 03/24/16 09:00 04/23/16 08:59 03/28/16 07:56 80 MG Clopidogrel Bisulfate (plAVix TAB) 75 mg DAILY PO 03/24/16 09:00 04/23/16 08:59 03/28/16 07:56 75 MG Famotidine (Pepcid Tab) 20 mg DAILY PO 03/24/16 09:00 04/23/16 08:59 03/28/16 07:57 20 MG Amlodipine Besylate (Norvasc Tab) 10 mg QAM PO 03/24/16 09:00 04/23/16 08:59 03/28/16 07:57 10 MG Miscellaneous Information (Consult Glycemic Management Pharmacy) 1 ea DAILY PRN N/A 03/24/16 03:49 04/23/16 03:48 Miscellaneous (Iv Fluids Completed) 1 ea PRN PRN N/A 03/24/16 04:30 03/24/17 04:29 Glucose (Glucose 40% Gel) 15-30 GRAMS 15 GRAMS... UD PRN PO 03/24/16 05:00 04/23/16 04:59 Glucose (Glucose Chew Tab) 4-8 Tablets 4 Tabl... UD PRN PO 03/24/16 05:00 04/23/16 04:59 Dextrose (Dextrose 50% 50ML Syringe) 25-50ML OF 50% DW IV FOR... UD PRN IV 03/24/16 05:00 04/23/16 04:59 Glucagon (Glucagon Inj) 1 mg UD PRN SQ 03/24/16 05:00 04/23/16 04:59 Insulin Aspart (novoLOG ASPART) SLIDING SCALE ACHS SC 03/24/16 07:00 04/23/16 06:59 03/29/16 07:59 5 UNITS Diphenhydramine HCl (Benadryl Inj) 25 mg Q4 PRN IV 03/24/16 16:15 04/23/16 16:14 03/24/16 18:36 25 MG Albuterol/ Ipratropium 1 puffs 1 puffs QIDR INH 03/25/16 12:00 04/24/16 11:59 03/29/16 07:55 1 PUFFS Iron Sucrose/ Sodium Chloride (Venofer Inj/Nss 100ml) 105 ml @ 420 mls/hr DAILY@0900 IV 03/26/16 09:00 04/04/16 09:14 03/28/16 13:02 420 MLS/HR Oxycodone/ Acetaminophen (Percocet 5-325mg Tab) 1 tab Q4H PRN PO 03/27/16 10:15 04/10/16 10:14 Furosemide (Lasix Tab) 80 mg BID17 PO 03/27/16 17:00 04/26/16 16:59 03/28/16 17:09 80 MG Vitamin B Complex/ Vit C/Folic Acid (Nephrocaps) 1 cap QAM PO 03/28/16 09:00 04/27/16 08:59 03/28/16 07:57 1 CAP Lisinopril (Zestril Tab) 40 mg QAM PO 03/29/16 09:00 04/28/16 08:59 Calcium Carbonate (Tums Chew Tab) 500 mg AC PRN PO 03/28/16 12:30 04/27/16 12:29 Insulin Aspart (novoLOG ASPART) SLIDING SCALE 0200 SC 03/29/16 02:00 04/28/16 01:59 03/29/16 02:05 1 UNITS Labetalol HCl (Normodyne Tab) 200 mg BID PO 03/29/16 09:00 04/28/16 08:59 Impression (1) FIDE (acute kidney injury) (2) Chronic kidney disease (3) CHF (congestive heart failure) (4) Anemia (5) Hypertension (6) Diabetes Mr. Walker was admitted to the hospital for management of CHF. 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 He will require initiation of HD. PMH: CKD, nephrotic syndrome, AODM, HTN, obesity, hypercholesterolemia / hyperlipidemia, asthma, recurrent READ, h/o clostridium difficile Recommendations End-stage renal disease: --having 3rd dialysis treatment now for 3 hours, and then IHD at outpatient dialysis unit at [place] starting on . --continue on renal diet and nephrocaps daily --continue on lasix 80 mg po BID --will have AVF as an outpatient HYPERTENSION: -- Continue amlodipine -- start on lisinopril 40 milligrams p.o. daily and increase labetalol to 200 mg BID -- discontinue hydralazine ANEMIA: -- Patient has iron deficiency, on IV iron therapy Secondary hyperparathyroidism: --Start on Tums 1 tablet 3 times daily with each meal As phosphate binder.
--- NOTE | 2016-03-29 10:17 | Discharge Instructions ---
Discharge Instructions Admission Admission Date: Mar 24, 2016 at 02:22 Admission Diagnosis: Hypoxia, Chf, Pneumonia. Care Plan - Goal(s): Decrease discomfort, Improve function Care Plan - Instructions: Activity Recommendations: no limitations Recommended Home Diet: AHA Phase I (2gmNa/LoCho), Renal, Type 2 Diabetes VTE Core Measure Inpt VTE Proph given/why not?: SCD's Follow Up Follow-Up: You have been arranged to have dialysis every Sunday, and Sunday at the [place] location Laboratory Results Test Results: Hemoglobin A1c Test 03/24/16 05:56 Range/Units Estimated Average Glucose 169 mg/dl Hemoglobin A1c 7.5 H 4.5-5.6 % Maryuri Chauhan Recommendations: Call your doctor if: * Temperature above 101 degrees * Pain not relieved by pain medicine ordered * There is increased drainage or redness from any incision * You have any unanswered questions or concerns. Your Doctors Instructions noted above were prepared by provider Carrie Oates.
[2016-03-29] MEDS ORDERED: INSULIN GLARGINE SOLOSTAR 100 UNITS/ML 3 ML PEN SC SCH (11:00)
[2016-03-29] MEDS: IRON SUCROSE INJ 100 MG in SODIUM CHLORIDE 0.9% 100ML 100 ML IV SCH (12:33)
[2016-03-29] MEDS: ATORVASTATIN 40 MG TAB PO SCH (12:35)
[2016-03-29] MEDS: ASPIRIN 81 MG ECTAB PO SCH (12:35)
[2016-03-29] MEDS: CLOPIDOGREL BISULFATE 75 MG TAB PO SCH (12:36)
[2016-03-29] MEDS: FUROSEMIDE 80 MG TAB PO SCH (12:36)
[2016-03-29] MEDS: AMLODIPINE BESYLATE 5 MG TAB PO SCH (12:36)
[2016-03-29] MEDS: NEPHROCAPS PO SCH (12:36)
[2016-03-29] MEDS: FAMOTIDINE 20 MG TAB PO SCH (12:38)
[2016-03-29] MEDS ORDERED: TPRSR/100 PO (13:50)
--- NOTE | 2016-03-29 16:11 | Discharge Summary ---
Discharge Summary Admission Date: Mar 24, 2016 at 02:22 Discharge Date: Mar 29, 2016 Discharge Disposition: Home Principal Diagnosis: Volume overload/ESRD Consultations: Cardiology Nephrology Vascular Surgery Medication Reconciliation New Medications: Metoprolol Succinate (Metoprolol Succinate ER) 100 Mg Tabcr 150 MG PO DAILY for 30 Days B-Complex W/ C & Folic Acid (Renal) 1 Cap Cap 1 CAP PO QAM for 30 Days, #30 CAP Continued Medications: Amlodipine Besylate (Amlodipine Besylate) 10 Mg Tab Aspirin (Aspirin 81) 81 Mg Tab Atorvastatin (Lipitor) 80 Mg Tab 80 MG PO DAILY, TAB Clopidogrel Bisulfate (Clopidogrel) 75 Mg Tab Famotidine (Pepcid) 20 Mg Tab 20 MG PO, TAB Insulin Glargine (Toujeo Solostar) 300 Unit/Ml Inj 80 UNITS SQ QAM Sodium Bicarbonate (Sodium Bicarbonate) 650 Mg Tab Discontinued Medications: Hydralazine Hcl (Apresoline) 25 Mg Tab 25 MG PO TID, TAB Discharge Exam Review of Systems: Constitutional: No chills Eyes: No worsening of vision ENT: No unusual epistaxis Respiratory: No cough Cardiovascular: No chest pain Abdomen: No constipation, No diarrhea, No pain Musculoskeletal: No joint pain Genitourinary - Female: No dysuria Genitourinary - Male: No hematuria Neurologic: No memory loss Psychiatric: No depression symptoms Endocrine: No excessive thirst, No fatigue Hematologic / Lymphatic: No abnormal bleeding/bruising Integumentary: No itch, No rash Physical Exam: General Appearance: WD/WN, no apparent distress Eyes: normal inspection ENT: normal ENT inspection Neck: supple Respiratory/Chest: chest non-tender Cardiovascular: regular rate, rhythm, no edema Abdomen / GI: normal bowel sounds, non tender, soft Extremities: normal inspection, no calf tenderness 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 He was recently admitted to [facility] for a week and was discharged last Sunday. After discharge, he went home, and reportedly became more short of breath and dizzy. He then went back to [facility] yesterday and was given Lasix 40mg IV and Levaquin 750mg IV. His creatinine was found to be 4.8 with a eGFR of 14. End Stage Renal dz with volume overload - temporary dialysis catheter placed on 03.27 by vascular surgery -appreciate nephrology consult - strict I/O's - continued on furosemide - dialysis arranged for [facility] on Sunday//Sunday - cardiology consulted and echocardiogram performed HTN - continue labetalol and Norvasc - controlled Type II DMII - cont SSI Anemia - multifactorial - received 1 unit of pRBCs on 03.24.17 - HGB stable on discharge DVT prophylaxis - Sub-q heparin. Total Time Spent: Greater than 30 minutes This includes examination of the patient, discharge planning, medication reconciliation, and communication with other providers. Discharge Instructions Please refer to the electronic Patient Visit Report (Discharge Instructions) for additional information.
[2016-04-27] MEDS ORDERED: MULT-648 PO (15:56)
[2016-04-27] MEDS ORDERED: IPRA1AER2 INH (15:56)
[2016-04-27] MEDS ORDERED: VITAMIN D2 PO (15:56)
[2016-04-27] MEDS ORDERED: LISI40TA PO (15:56)
[2016-04-27] MEDS ORDERED: METO50TA16 PO (15:56)
[2016-05-05] MEDS ORDERED: vitamin D2 PO (06:41)
[2016-05-05] MEDS ORDERED: OXYC-57 PO (08:59)
== END 2016-03-29 14:20 | disposition home or self-care (01) | DRG 682 ==
LOC: ENRESERVTM → ENRESERVDT → C.2T 02:22 → UNDOADMIN 02:22 → EDBEDREQ 03-27 13:53 → C.MS2W 03-27 15:07
PROVIDERS: ADMIT Hospitalist; ATTEND Hospitalist
PROC: 02HV33Z Insertion of Infusion Device into Superior Vena Cava, Percutaneous Approach (ICD-10-PCS; principal; 2016-03-27 10:15)
DX: N17.9 Acute kidney failure, unspecified (principal); J18.9 Pneumonia, unspecified organism; J96.01 Acute respiratory failure with hypoxia; I13.2 Hypertensive heart and chronic kidney disease with heart failure and with stage 5 chronic kidney disease, or end stage renal disease; N18.6 End stage renal disease; E87.70 Fluid overload, unspecified; I25.10 Atherosclerotic heart disease of native coronary artery without angina pectoris; I50.9 Heart failure, unspecified; E66.9 Obesity, unspecified; J45.909 Unspecified asthma, uncomplicated; K21.9 Gastro-esophageal reflux disease without esophagitis; E78.00 Pure hypercholesterolemia, unspecified; E11.319 Type 2 diabetes mellitus with unspecified diabetic retinopathy without macular edema; R79.89 Other specified abnormal findings of blood chemistry; E11.21 Type 2 diabetes mellitus with diabetic nephropathy; E11.22 Type 2 diabetes mellitus with diabetic chronic kidney disease; E78.5 Hyperlipidemia, unspecified; D50.9 Iron deficiency anemia, unspecified; Z87.891 Personal history of nicotine dependence; Z95.5 Presence of coronary angioplasty implant and graft; Z99.2 Dependence on renal dialysis; Z79.82 Long term (current) use of aspirin; Z79.02 Long term (current) use of antithrombotics/antiplatelets; Z79.899 Other long term (current) drug therapy; Z68.35 Body mass index [BMI] 35.0-35.9, adult

== ENCOUNTER → 2016-05-05 | Day surgery (SDC) | payer OTHER ==
[2016-04-27 15:57] VITALS: BMI 36.0
[~2016-05-05] VITALS: Ht 177.8 cm; Wt 109.3 kg
[~2016-05-05] MED LIST: ASPI-435 PO; ATOR-26 PO; ATROPINE SULFATE 0.1 MG/ML 5ML SYR IV PRN; BUPIVACAINE/EPINEPHRINE 0.5% MPF 1:200,000 30 ML VIAL ONE; CEFAZOLIN 2000 MG/60 ML D5W 60 ML IV SCH; EpHEDrine SULFATE INJ 50 MG/ML AMP IV PRN; FENTANYL CITRATE INJ 50 MCG/1 ML 2 ML VIAL IV PRN; FENTANYL CITRATE INJ 50 MCG/1 ML 2 ML VIAL ONE; FLUMAZENIL 0.1 MG/1 ML 10 ML VIAL IV PRN; FRS/40 PO; GELATIN SPONGE 12-7MM ONE; HEPARIN SOD (PORCINE) 1000 UNIT/ML 10 ML VIAL ONE; INSU1.2I SQ; IPRA1AER2 INH; LABETALOL HCL IV 5 MG/ML 20ML IV PRN; LABETALOL HCL IV 5 MG/ML 20ML ONE; LACTATED RINGER'S 1000ML IV SCH; LIDOCAINE 2% 20 MG/ML 5ML SYR ONE; LIDOCAINE HCL 1% 20 ML VIAL ONE; LISI40TA PO; MEPERIDINE HCL 25 MG/ML CARP IV PRN; METO50TA16 PO; MIDAZOLAM HCL 1 MG/ML 2ML VIAL ONE; MULT-648 PO; NALOXONE HCL 0.4 MG/1 ML VIAL/CARP IV PRN; NRV/10 PO; NSS 1000ML IV SCH; NovoLIN-R INSULIN PER UNIT CHARGE ONE; ONDANSETRON INJ 2 MG/ML 2 ML VIAL IV PRN; OXYC-57 PO; PHENYLEPHRINE 100MCG/ML 5ML SYR IV PRN; PLV75 PO; PROPOFOL IV EMULSION 10 MG/ML 20 ML VIAL IV ONE; THROMBIN FOR SOLN 20000 UNIT KIT ONE; VITAMIN D2 PO; vitamin D2 PO
--- NOTE | 2016-05-05 06:20 | History and Physical ---
History & Physical Date of Service May 05, 2016. History & Physical Chief Complaint ESRD, need permcath History of Present Illness The patient is a 45 year old male with hx of HTN and CAD, who had a permcath inserted in February and who is now on dialysis. He is admitted for creation of an av fistula. Denies READ, fever,chills, chest pain, SOB, abd pain, N/V, rest pain, claudication, other complaints. Allergies Coded Allergies: Codeine (Verified Adverse Reaction, Unknown, DELIRIUM, 03/24/16) PT REPORTS AGGRESSIVE BEHAVIORS. Home Medications Scheduled Atorvastatin (Lipitor), 80 MG PO DAILY Hydralazine Hcl (Apresoline), 25 MG PO TID Insulin Glargine (Toujeo Solostar), 80 UNITS SQ QAM Miscellaneous Medications Amlodipine Besylate (Amlodipine Besylate) Aspirin (Aspirin 81) Clopidogrel Bisulfate (Clopidogrel) Famotidine (Pepcid), 20 MG PO Labetalol (Normodyne), 200 MG PO Sodium Bicarbonate (Sodium Bicarbonate) Problem List Medical Problems: (1) FIDE (acute kidney injury) (2) Anemia (3) CHF (congestive heart failure) (4) Chronic kidney disease (5) Diabetes (6) Hypertension Surgical / Medical History Hx Cardiac Surgery: No (cath 2016 1 stent) Hx Abdominal Surgery: No Hx Cancer Surgery: No Hx Thoracic Surgery: No Hx Orthopedic: Yes (left foot) Hx Urinary Tract Surgery: No HX Other Surgery: No Past Medical/Surgical History: Angioplasty/Stent, Hypertension, Kidney Disease Family History + HTN, DMII Social History Smoking Status: Former Smoker Hx Tobacco Use In Past Year?: No Hx Alcohol Use - Type & Amnt: No Hx Substance Use -Type & Amnt: No Review of Systems Constitutional: + malaise, No chills, No fever Skin: No change in color Eyes: No visual changes ENMT: No sore throat Respiratory: No cough, No hemoptysis, No short of breath Cardiovascular: , No chest pain, No intermittent claudication, No palpitations , No syncope Gastrointestinal: No abdominal pain, No nausea, No vomiting Neurologic: No dizziness, No headache, No lethargy, No numbness, No tingling Physical Exam Constitutional: General Apperance: well-nourished, well-developed, obese Level of Distress: NAD, chronically ill Ambulation: ambulating normally Psychiatric: Mental Status: active & alert, normal mood, normal affect Orientation: oriented except where noted, to time, to place, to person Memory: recent memory normal, remote memory normal Head: normocephalic, atraumatic Eyes: EOM: EOMI ENMT: normal ENT inspection, hearing grossly normal Neck: supple, trachea midline Lungs: Respiratory effort: no dyspnea Auscultation: no wheezing, no rhonchi, no wet rales/crackles Cardiovascular: Apical Impulse: not displaced Heart Auscultation: RRR, no rubs, no gallops Peripheral Pulses: Pulses: full and equal, in all extremities except if noted Bruits: none appreciated Carotid Pulse: normal on the left, normal on the right Brachial Pulses: normal on the left, normal on the right Radial Pulse: normal on the left, normal on the right Femoral Pulse: normal on the left, normal on the right Posterior Tibialis Pulse: decreased on the left, decreased on the right Dorsalis Pedis Pulse: decreased on the left, decreased on the right Abdomen: Bowel Sounds: normal Inspection & Palpation: soft, non-distended, no tenderness, guarding & rebound Musculoskeletal: normal strength (5/5 throughout), normal tone Extremities: Upper Right: no cyanosis, no varicosities, no edema Upper Left: no cyanosis, no varicosities, no palpable cord, no edema Lower Right: no cyanosis, no varicosities, no palpable cord, no edema Lower Left: no cyanosis, no varicosities, no palpable cord, no edema Neurologic: Cranial Nerves: grossly intact Sensation: grossly intact ASSESSMENT and PLAN: ESRD Plan: Patient is admitted for creation of a left arm av fistula. I have discussed the risks options and benefits of the procedure with the patient. The patient understands the risks options and benefits and agrees to the procedure.
[2016-05-05 06:22] VITALS: BP 188/92; PULSE 73; TEMP 36.6; O2SAT 98; Ht 177.8 cm; Wt 109.3 kg
[2016-05-05 06:40] LABS: INR 0.9 (0.9-1.1); PROTHROMBIN TIME (PATIENT) 9.5 SECONDS (9.0-12.0)
[2016-05-05 06:52] LABS: BUN/CREATININE RATIO 8.9 (10-20); CALCIUM 7.9 mg/dl (8.5-10.1); CREATININE 3.6 mg/dl (0.60-1.40); POTASSIUM 4.2 mmol/L (3.5-5.1)
--- NOTE | 2016-05-05 07:19 | History & Physical Bridge Note ---
H&P Re-Evaluation Bridge Note: I have examined the patient, reviewed the History & Physical and in the interval since the performance of the History & Physical I have noted the following changes of clinical significance: No changes noted
--- NOTE | 2016-05-05 08:56 | [facility] Post Operative Brief Note ---
Immediate Operative Summary Operative Date May 05, 2016. Pre-Operative Diagnosis END STAGE RENAL FAILURE Post-Operative Diagnosis SAME PREOP Procedure(s) Performed CREATION LEFT WRIST RADIAL CEPHALIC FISTULA Surgeon DR. Priscilla FRIAS Gasser Machine Operator Surgeon(s) Yosi BUSTILLO FELLOW Estimated Blood Loss 5ml Findings good flow through fistula Specimens NONE Anesthesia MAC Complication(s) None Disposition Recovery Room / PACU
--- NOTE | 2016-05-05 09:00 | Discharge Instructions ---
Discharge Instructions Date of Service May 05, 2016. Visit Reason for Visit: End Stage Renal Disease - On Hemodialysis Discharge Discharge Diagnosis / Problem: End stage renal disease on dialysis Discharge Goals Goal(s): Therapeutic intervention Activity Recommendations Activity Limitations: per Instructions/Follow-up section Anesthesia . Post Anesthesia Instructions: If you have had General Anesthesia or IV Sedation: * Do not drive today. * Resume driving when surgeon permits. * Do not make important decisions or sign legal documents today. * Call surgeon for: 1. Temperature elevations greater than 101 degrees F. 2. Uncontrollable pain. 3. Excessive bleeding. 4. Persistent nausea and vomiting. 5. Medication intolerance (nausea, vomiting or rash). * For nausea and vomiting use only clear liquids such as: tea, soda, bouillon until nausea subsides, then gradually increase diet as tolerated. * If you have any concerns or questions, call your surgeon's office. If physician is unavailable and it is an emergency, call 911 or go to the nearest emergency room. . Instructions / Follow-Up Instructions / Follow-Up Call [phone] to schedule a follow up appointment if one not already scheduled. ACTIVITY RECOMMENDATIONS: See Above SPECIAL CARE INSTRUCTIONS: Call your doctor if: * Temperature above 101 degrees * Pain not relieved by pain medicine ordered * There is increased drainage or redness from any incision * You have any unanswered questions or concerns. Diet Recommendations Recommended Home Diet: resume previous diet Procedures Procedures Performed: CREATION LEFT WRIST RADIAL CEPHALIC FISTULA Pending Studies Studies pending at discharge: no Medical Emergencies . Who to Call and When: Medical Emergencies: If at any time you feel your situation is an emergency, please call 911 immediately. . Non-Emergent Contact Non-Emergency issues call your: Surgeon . . "Provider Documentation" section prepared by Dewey Mena.
--- NOTE | 2016-05-05 09:25 | OPERATIVE REPORT ---
DATE OF OPERATION: 05/05/2016 PREOPERATIVE DIAGNOSIS: End-stage renal disease with need for long-term dialysis access. POSTOPERATIVE DIAGNOSIS: Same. PROCEDURE: Creation of left distal forearm radiocephalic AV fistula. SURGEON: Dr. Dewey Mena M.D. INTERPRETER AND TRANSLATOR: Dr. Deo Person M.D. ANESTHESIA: MAC. ESTIMATED BLOOD LOSS: 5 mL. COMPLICATIONS: None. INDICATIONS: This is a 45-year-old male with end-stage renal disease currently on dialysis. He dialyzes through a tunneled catheter. He presented for evaluation of an arterial venous fistula for long-term dialysis access. Preoperative imaging showed usable cephalic vein at the level of the mid to distal forearm. The risks, benefits, and alternatives to the above procedure were explained to the patient and he agreed to proceed. OPERATION PROCEDURE: The patient was brought to the operating room and placed in supine position. Left upper extremity was prepped and draped in the normal sterile fashion. Time out was performed and all parties agreed to correct patient and procedure to be performed. We did use the ultrasound preoperatively to identify a good size cephalic vein just above the level of the wrist. After insufflation of local anesthetic, a longitudinal incision was made in the distal forearm. The incision was deepened with electrocautery. The cephalic vein was identified. It was of good size. Several side branches were ligated and the vein was dilated up with heparinized saline. It was of good caliber. Next, turned attention to the radial artery. It was dissected free. There was some minor calcification but ultimately the artery was of good size. Small dose of IV heparin was administered. The radial artery was clamped. An arteriotomy was made with an 11 blade. This was extended with Gandhi scissors. The vein end was spatulated. It was sewn to the artery in a continuous fashion using Prolene suture. Prior to completion of anastomosis, it was backbled, forward bled and flushed. The wound was hemostatic. At the completion of anastomosis, there was an easily palpable radial pulse. There was a good thrill in the fistula which was palpable a good distance up the arm. The wound was copiously irrigated. The wound was closed with a running 3-0 Vicryl followed by running 4-0 Vicryl for the skin. The patient was awakened from anesthesia and transferred to recovery room in satisfactory condition. I attest to the content of the Intraoperative Record and any orders documented therein. Any exceptio ns are noted below.
[2016-05-05 09:40] VITALS: BP 105/74; PULSE 73; TEMP 36.9; O2SAT 97
--- NOTE | 2016-05-05 09:47 | Anesthesiology Progress Note ---
Anesthesia Post Op Note Date & Time May 05, 2016 at 09:47 Vital Signs Pain Intensity: 0 Vital Signs Past 12 Hours Date Time Temp Pulse Resp B/P Pulse Ox O2 Delivery O2 Flow Rate FiO2 05/05/16 09:30 36.3 73 15 132/73 95 Room Air 05/05/16 09:20 74 22 135/72 92 Room Air 05/05/16 09:11 36.2 79 16 142/82 97 Room Air 05/05/16 06:22 36.6 73 21 188/92 98 Room Air Notes Mental Status: alert / awake / arousable, participated in evaluation Pt Amnestic to Procedure: Yes Nausea / Vomiting: adequately controlled Pain: adequately controlled Airway Patency, RR, SpO2: stable & adequate BP & HR: stable & adequate Hydration State: stable & adequate Anesthetic Complications: no major complications apparent
[2016-05-05 10:07] VITALS: BP 108/70; PULSE 74; TEMP 36.9; O2SAT 99
[2016-05-05 10:36] VITALS: BP 140/73; PULSE 74; TEMP 37.1; O2SAT 98
== END | disposition home or self-care (01) ==
LOC: C.ACU 05:46
PROVIDERS: ATTEND Surgery Vascular Surgery
DX: N18.6 End stage renal disease (principal); I12.0 Hypertensive chronic kidney disease with stage 5 chronic kidney disease or end stage renal disease; I25.10 Atherosclerotic heart disease of native coronary artery without angina pectoris; Z88.5 Allergy status to narcotic agent; E78.5 Hyperlipidemia, unspecified; D64.9 Anemia, unspecified

== ENCOUNTER 2016-08-25 07:27 | Day surgery (SDC) | payer OTHER ==
[~2016-08-25] VITALS: Ht 177.8 cm; Wt 111.3 kg
[~2016-08-25 07:27] MED LIST changes: -ATROPINE SULFATE 0.1 MG/ML 5ML SYR IV PRN; -BUPIVACAINE/EPINEPHRINE 0.5% MPF 1:200,000 30 ML VIAL ONE; -CEFAZOLIN 2000 MG/60 ML D5W 60 ML IV SCH; -EpHEDrine SULFATE INJ 50 MG/ML AMP IV PRN; -FENTANYL CITRATE INJ 50 MCG/1 ML 2 ML VIAL IV PRN; -FENTANYL CITRATE INJ 50 MCG/1 ML 2 ML VIAL ONE; -FLUMAZENIL 0.1 MG/1 ML 10 ML VIAL IV PRN; -FRS/40 PO; -GELATIN SPONGE 12-7MM ONE; -HEPARIN SOD (PORCINE) 1000 UNIT/ML 10 ML VIAL ONE; -LABETALOL HCL IV 5 MG/ML 20ML IV PRN; -LABETALOL HCL IV 5 MG/ML 20ML ONE; -LACTATED RINGER'S 1000ML IV SCH; -LIDOCAINE 2% 20 MG/ML 5ML SYR ONE; -LIDOCAINE HCL 1% 20 ML VIAL ONE; -MEPERIDINE HCL 25 MG/ML CARP IV PRN; -MIDAZOLAM HCL 1 MG/ML 2ML VIAL ONE; -NALOXONE HCL 0.4 MG/1 ML VIAL/CARP IV PRN; -NSS 1000ML IV SCH; -NovoLIN-R INSULIN PER UNIT CHARGE ONE; -ONDANSETRON INJ 2 MG/ML 2 ML VIAL IV PRN; -PHENYLEPHRINE 100MCG/ML 5ML SYR IV PRN; -PROPOFOL IV EMULSION 10 MG/ML 20 ML VIAL IV ONE; -THROMBIN FOR SOLN 20000 UNIT KIT ONE; -VITAMIN D2 PO
--- NOTE | 2016-08-25 07:48 | History and Physical ---
History & Physical Date of Service Aug 25, 2016. History & Physical Chief Complaint ESRD, functioning fistula History of Present Illness The patient is a 45 year old male with hx of HTN and CAD, who had a permcath inserted in February and who is now on dialysis. He underwent creation of an av fistula. The fistula is working well. He is here for removal of his permcath. Denies READ, fever,chills, chest pain, SOB, abd pain, N/V, rest pain, claudication, other complaints. Allergies Coded Allergies: Codeine (Verified Adverse Reaction, Unknown, DELIRIUM, 03/24/16) PT REPORTS AGGRESSIVE BEHAVIORS. Home Medications Scheduled Atorvastatin (Lipitor), 80 MG PO DAILY Hydralazine Hcl (Apresoline), 25 MG PO TID Insulin Glargine (Toujeo Solostar), 80 UNITS SQ QAM Miscellaneous Medications Amlodipine Besylate (Amlodipine Besylate) Aspirin (Aspirin 81) Clopidogrel Bisulfate (Clopidogrel) Famotidine (Pepcid), 20 MG PO Labetalol (Normodyne), 200 MG PO Sodium Bicarbonate (Sodium Bicarbonate) Problem List Medical Problems: (1) FIDE (acute kidney injury) (2) Anemia (3) CHF (congestive heart failure) (4) Chronic kidney disease (5) Diabetes (6) Hypertension Surgical / Medical History Hx Cardiac Surgery: No (cath 2016 1 stent) Hx Abdominal Surgery: No Hx Cancer Surgery: No Hx Thoracic Surgery: No Hx Orthopedic: Yes (left foot) Hx Urinary Tract Surgery: No HX Other Surgery: No Past Medical/Surgical History: Angioplasty/Stent, Hypertension, Kidney Disease Family History + HTN, DMII Social History Smoking Status: Former Smoker Hx Tobacco Use In Past Year?: No Hx Alcohol Use - Type & Amnt: No Hx Substance Use -Type & Amnt: No Review of Systems Constitutional: + malaise, No chills, No fever Skin: No change in color Eyes: No visual changes ENMT: No sore throat Respiratory: No cough, No hemoptysis, No short of breath Cardiovascular: , No chest pain, No intermittent claudication, No palpitations , No syncope Gastrointestinal: No abdominal pain, No nausea, No vomiting Neurologic: No dizziness, No headache, No lethargy, No numbness, No tingling Physical Exam Constitutional: General Apperance: well-nourished, well-developed, obese Level of Distress: NAD, chronically ill Ambulation: ambulating normally Psychiatric: Mental Status: active & alert, normal mood, normal affect Orientation: oriented except where noted, to time, to place, to person Memory: recent memory normal, remote memory normal Head: normocephalic, atraumatic Eyes: EOM: EOMI ENMT: normal ENT inspection, hearing grossly normal Neck: supple, trachea midline Lungs: Respiratory effort: no dyspnea Auscultation: no wheezing, no rhonchi, no wet rales/crackles Cardiovascular: Apical Impulse: not displaced Heart Auscultation: RRR, no rubs, no gallops Peripheral Pulses: Pulses: full and equal, in all extremities except if noted Bruits: none appreciated Carotid Pulse: normal on the left, normal on the right Brachial Pulses: normal on the left, normal on the right Radial Pulse: normal on the left, normal on the right Femoral Pulse: normal on the left, normal on the right Posterior Tibialis Pulse: decreased on the left, decreased on the right Dorsalis Pedis Pulse: decreased on the left, decreased on the right Abdomen: Bowel Sounds: normal Inspection & Palpation: soft, non-distended, no tenderness, guarding & rebound Musculoskeletal: normal strength (5/5 throughout), normal tone Extremities: Upper Right: no cyanosis, no varicosities, no edema Upper Left: no cyanosis, no varicosities, no palpable cord, no edema, good thrill Lower Right: no cyanosis, no varicosities, no palpable cord, no edema Lower Left: no cyanosis, no varicosities, no palpable cord, no edema Neurologic: Cranial Nerves: grossly intact Sensation: grossly intact ASSESSMENT and PLAN: ESRD Functioning fistula Plan: Patient is admitted for removal of his permcath. I have discussed the risks options and benefits of the procedure with the patient. The patient understands the risks options and benefits and agrees to the procedure.
--- NOTE | 2016-08-25 07:50 | History and Physical ---
History & Physical Date of Service Aug 25, 2016. History & Physical Chief Complaint ESRD, functioning L radiocephalic AVF History of Present Illness The patient is a 46 year old male with hx of HTN and CAD, who began HD in 03/14, and had a L radiocephalic AVF creation in 05/12 which is functioning well. . He is admitted for removal of his permcath. Denies READ, fever,chills, chest pain , SOB, abd pain, N/V, rest pain, claudication, other complaints. Allergies Coded Allergies: Codeine (Verified Adverse Reaction, Unknown, DELIRIUM, 03/24/16) PT REPORTS AGGRESSIVE BEHAVIORS. Home Medications Scheduled Atorvastatin (Lipitor), 80 MG PO DAILY Hydralazine Hcl (Apresoline), 25 MG PO TID Insulin Glargine (Toujeo Solostar), 80 UNITS SQ QAM Miscellaneous Medications Amlodipine Besylate (Amlodipine Besylate) Aspirin (Aspirin 81) Clopidogrel Bisulfate (Clopidogrel) Famotidine (Pepcid), 20 MG PO Labetalol (Normodyne), 200 MG PO Sodium Bicarbonate (Sodium Bicarbonate) Problem List Medical Problems: (1) FIDE (acute kidney injury) (2) Anemia (3) CHF (congestive heart failure) (4) Chronic kidney disease (5) Diabetes (6) Hypertension Surgical / Medical History Hx Cardiac Surgery: No (cath 2016 1 stent) Hx Abdominal Surgery: No Hx Cancer Surgery: No Hx Thoracic Surgery: No Hx Orthopedic: Yes (left foot) Hx Urinary Tract Surgery: No HX Other Surgery: No Past Medical/Surgical History: Angioplasty/Stent, Hypertension, Kidney Disease Family History + HTN, DMII Social History Smoking Status: Former Smoker Hx Tobacco Use In Past Year?: No Hx Alcohol Use - Type & Amnt: No Hx Substance Use -Type & Amnt: No Review of Systems Constitutional: + malaise, No chills, No fever Skin: No change in color Eyes: No visual changes ENMT: No sore throat Respiratory: No cough, No hemoptysis, No short of breath Cardiovascular: , No chest pain, No intermittent claudication, No palpitations , No syncope Gastrointestinal: No abdominal pain, No nausea, No vomiting Neurologic: No dizziness, No headache, No lethargy, No numbness, No tingling Physical Exam Constitutional: General Apperance: well-nourished, well-developed, obese Level of Distress: NAD, chronically ill Ambulation: ambulating normally Psychiatric: Mental Status: active & alert, normal mood, normal affect Orientation: oriented except where noted, to time, to place, to person Memory: recent memory normal, remote memory normal Head: normocephalic, atraumatic Eyes: EOM: EOMI ENMT: normal ENT inspection, hearing grossly normal Neck: supple, trachea midline Lungs: Respiratory effort: no dyspnea Auscultation: no wheezing, no rhonchi, no wet rales/crackles Cardiovascular: Apical Impulse: not displaced Heart Auscultation: RRR, no rubs, no gallops Peripheral Pulses: Pulses: full and equal, in all extremities except if noted Bruits: none appreciated Carotid Pulse: normal on the left, normal on the right Brachial Pulses: normal on the left, normal on the right Radial Pulse: normal on the left, normal on the right. L forearm AVF with good thrill/bruit Femoral Pulse: normal on the left, normal on the right Posterior Tibialis Pulse: decreased on the left, decreased on the right Dorsalis Pedis Pulse: decreased on the left, decreased on the right Abdomen: Bowel Sounds: normal Inspection & Palpation: soft, non-distended, no tenderness, guarding & rebound Musculoskeletal: normal strength (5/5 throughout), normal tone Extremities: Upper Right: no cyanosis, no varicosities, no edema Upper Left: no cyanosis, no varicosities, no palpable cord, no edema Lower Right: no cyanosis, no varicosities, no palpable cord, no edema Lower Left: no cyanosis, no varicosities, no palpable cord, no edema Neurologic: Cranial Nerves: grossly intact Sensation: grossly intact ASSESSMENT and PLAN: ESRD on HD Functioning L wrist AVF Plan: Patient is admitted for removal of his permcath. I have discussed the risks options and benefits of the procedure with the patient. The patient understands the risks options and benefits and agrees to the procedure.
[2016-08-25 07:57] VITALS: BP 166/80; PULSE 68; TEMP 37.1; O2SAT 97; Ht 177.8 cm; Wt 111.3 kg
[2016-08-25] MEDS ORDERED: FRS/40 PO (08:28)
[2016-08-25] MEDS ORDERED: NURSING VERBAL MED ORDER ONE (08:45)
[2016-08-25 08:59] VITALS: BP 166/80; PULSE 68; TEMP 37.1; O2SAT 97
[2016-08-25] MEDS ORDERED: MIDAZOLAM HCL 1 MG/ML 2ML VIAL ONE (09:10)
[2016-08-25] MEDS ORDERED: FENTANYL CITRATE INJ 50 MCG/1 ML 2 ML VIAL ONE (09:10)
--- NOTE | 2016-08-25 09:35 | Procedure Note ---
Pre-Mod Sedation Assessment General Date of Moderate Sedation: Aug 25, 2016. Vital Signs: Vital Signs Past 12 Hours Date Time Temp Pulse Resp B/P (MAP) Pulse Ox O2 Delivery O2 Flow Rate FiO2 08/25/16 08:59 37.1 68 20 166/80 97 Room Air 08/25/16 07:57 37.1 68 20 166/80 (108) 97 Room Air Pre-Sedation Airway Assessment Short Thick Neck: Yes Hx of Sleep Apnea: No Smoking Status: Never Smoker Mallampati Classification: Class I ASA Classification: Class III Notes The planned sedation has been discussed with the patient and consent obtained. I have identified the patient, determined the appropriateness of sedation and have assessed the patient immediately prior to the procedure. All medicine(s) and interventions are by my order.
[2016-08-25] MEDS ORDERED: FENTANYL CITRATE INJ 50 MCG/1 ML 2 ML VIAL IV ONE (09:36)
[2016-08-25] MEDS ORDERED: MIDAZOLAM HCL 1 MG/ML 2ML VIAL IV ONE (09:36)
[2016-08-25] MEDS ORDERED: LIDOCAINE HCL 1% 20 ML VIAL SQ ONE (09:37)
--- NOTE | 2016-08-25 09:47 | [facility] Post Operative Brief Note ---
Immediate Operative Summary Operative Date Aug 25, 2016. Pre-Operative Diagnosis Functioning Fistula Post-Operative Diagnosis Same Procedure(s) Performed Removal of Perm Catheter, Moderate Sedation from [id number] - [id number] 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
--- NOTE | 2016-08-25 09:51 | Procedure Note ---
Post-Moderate Sedation Plan General Date of Moderate Sedation Aug 25, 2016. Vital Signs: Vital Signs Past 12 Hours Date Time Temp Pulse Resp B/P (MAP) Pulse Ox O2 Delivery O2 Flow Rate FiO2 08/25/16 08:59 37.1 68 20 166/80 97 Room Air 08/25/16 07:57 37.1 68 20 166/80 (108) 97 Room Air Review - Discharge Plan Post Moderate Sedation Plan: On clinical assessment, the patient appears to have tolerated the conscious sedation without complications. Patient is recovering as anticipated. Patient will continue to be monitored by nursing and may be discharged when conscious sedation discharge criteria are met.
--- NOTE | 2016-08-25 09:53 | Discharge Instructions ---
Discharge Instructions Date of Service Aug 25, 2016. Visit Reason for Visit: End Stage Renal Disease, Functioning Fistula Discharge Discharge Diagnosis / Problem: Functioning fistula Discharge Goals Goal(s): Therapeutic intervention Activity Recommendations Activity Limitations: per Instructions/Follow-up section Lifting Limitations: none Exercise/Sports Limitations: none May Resume Sexual Activity: when tolerated Shower/Bathe: tomorrow Driving or Machine Use: no limitations Anesthesia . Post Anesthesia Instructions: If you have had General Anesthesia or IV Sedation: * Do not drive today. * Resume driving when surgeon permits. * Do not make important decisions or sign legal documents today. * Call surgeon for: 1. Temperature elevations greater than 101 degrees F. 2. Uncontrollable pain. 3. Excessive bleeding. 4. Persistent nausea and vomiting. 5. Medication intolerance (nausea, vomiting or rash). * For nausea and vomiting use only clear liquids such as: tea, soda, bouillon until nausea subsides, then gradually increase diet as tolerated. * If you have any concerns or questions, call your surgeon's office. If physician is unavailable and it is an emergency, call 911 or go to the nearest emergency room. . Instructions / Follow-Up Instructions / Follow-Up Call [phone] with any questions or concerns. Remove dressing tomorrow and replace if needed. May shower starting tomorrow SPECIAL CARE INSTRUCTIONS: Medications: * Continue to take your medications as directed. If you have been given a prescription for Plavix, please fill it immediately and take as directed. Incision Care: * Your puncture site may have some bruising and minor swelling for about one week. * You will have a small dressing covering your puncture site. You may remove the dressing after 24 hours and shower. You may let the warm soapy water run over it, but be sure to dry the puncture site well and keep it dry. * DO NOT IMMERSE THE INCISION IN A TUB/POOL/etc. UNTIL HEALED. * Puncture sites should be kept covered with a band-aid until it begins to heal. Restrictions: * Depending on whether you leg or arm was punctured to access the arteries, you will be required to lay flat, hold your arm still, or both, for about 4 hours after the procedure to prevent bleeding. * Limit your activity for the first 48 hours. You may walk and go up and down steps. Avoid excessive bending or movement at the puncture site. Possible Complications: * Excessive Swelling - after blood flow is improved you may notice increased swelling in the lower legs. This is a normal response. This usually depends on the amount of blockages in the leg, how long they have been there prior to your procedure and how much blood flow was restored. Elevating your legs will help to improve this. Please notify our office ([phone] ) if the swelling does not go away after lying in bed overnight. * Infection/Drainage/Bleeding - Drainage or bleeding from the puncture site should be minimal. If you have excessive bleeding or drainage, call our office ([phone]) right away. * Pain - You may experience some mild pain or soreness at your puncture site. If your pain does not improve, please contact our office ([phone]). Call your doctor and seek emergent treatment if you develop: * Temperature above 101 degrees * Any fever or chills * Any redness or purulent drainage from the puncture site * Any new dusky/blue colored toes or feet with coolness or sharp or aching pain. SKIN IRRITATION: * You may experience some redness and/or swelling in the area where radiation was administered. If any skin irritation occurs, please contact your family physician. FOLLOW UP VISIT: Keep any scheduled doctor appointments. Diet Recommendations Recommended Home Diet: resume previous diet Procedures Procedures Performed: Removal of Perm Catheter, Moderate Sedation from 935 - 950 Pending Studies Studies pending at discharge: no Medical Emergencies . Who to Call and When: Medical Emergencies: If at any time you feel your situation is an emergency, please call 911 immediately. . Non-Emergent Contact Non-Emergency issues call your: Surgeon . . "Provider Documentation" section prepared by Dewey Mena. .
--- NOTE | 2016-08-25 09:55 | [facility] Operative Report ---
Operative Report Operative Date Aug 25, 2016. Pre-Operative Diagnosis Functioning Fistula Post-Operative Diagnosis Same Procedure(s) Performed Removal of right internal jugular vein permcath Surgeon Dr. Mena Wire Border Assembler Surgeon(s) None Estimated Blood Loss 2 Findings catheter and cuff removed Specimens A: Explant Perm Catheter Anesthesia Local with conscious sedation Complication(s) None Disposition Indications Patient is a 46 year old white male on dialysis with a functioning fistula. He is here for removal of his permcath. I have discussed the risks options and benefits of the procedure with the patient. The patient understands the risks options and benefits and agrees to the procedure. Description of Procedure The patient was taken to the angio suite and placed in the supine position. The right side of the neck, chest wall and catheter were prepped and draped in a sterile manner. Local anesthesia was then accomplished. Using sharp and blunt dissection, the cuff of the permcath was freed up from the surrounding fibrous tissue. The permcath and cuff were completely removed. Pressure was then applied and adequate hemostasis was obtained. A sterile dressing was then applied. The patient left the angio suite in good condition and tolerated the procedure well. I attest to the content of the Intraoperative Record and any orders documented therein. Any exceptions are noted below.
[2016-08-25 10:00] VITALS: BP 136/74; PULSE 75; TEMP 37; O2SAT 100
[2016-08-25 11:00] VITALS: BP 126/69; PULSE 67; TEMP 37.2; O2SAT 98
[2016-08-25] MEDS ORDERED: ACETAMINOPHEN 325 MG TAB ONE (11:03)
== END 2016-08-25 11:14 | disposition home or self-care (01) ==
LOC: C.ACU 07:27
PROVIDERS: ATTEND Surgery Vascular Surgery
DX: Z45.2 Encounter for adjustment and management of vascular access device (principal); I13.2 Hypertensive heart and chronic kidney disease with heart failure and with stage 5 chronic kidney disease, or end stage renal disease; E11.22 Type 2 diabetes mellitus with diabetic chronic kidney disease; I50.9 Heart failure, unspecified; N18.6 End stage renal disease; Z99.2 Dependence on renal dialysis; I25.10 Atherosclerotic heart disease of native coronary artery without angina pectoris; D64.9 Anemia, unspecified; Z79.4 Long term (current) use of insulin; Z79.899 Other long term (current) drug therapy; Z79.82 Long term (current) use of aspirin; Z95.5 Presence of coronary angioplasty implant and graft; Z87.891 Personal history of nicotine dependence

== ENCOUNTER → 2017-03-12 | Day surgery (SDC) | payer OTHER ==
[2017-03-08 14:40] VITALS: Ht 177.8 cm; Wt 110.0 kg
[~2017-03-12] VITALS: Ht 177.8 cm; Wt 110.0 kg
[~2017-03-12] MED LIST changes: +CALCCHW17 PO; +ENDOSCOPIC MARKER 5 ML SYR ONE; +FRS/40 PO; +LIDOCAINE HCL 2% 2 ML VIAL (20MG/ML) ONE; +MIDAZOLAM HCL 1 MG/ML 2ML VIAL ONE; -OXYC-57 PO; +PROPOFOL IV EMULSION 10 MG/ML 20 ML VIAL IV ONE; +SODIUM CHLORIDE 0.9% 500ML 500 ML IV ONE; -vitamin D2 PO
--- NOTE | 2017-03-12 09:44 | Endo History and Physical ---
History & Physical Date of Service: Mar 12, 2017. Chief Complaint: Chronic diarrhea, dialysis patient Referring Physician: Mich History of Present Illness 46 yo CM who presents for colonoscopy secondary to diarrhea. Past Surgical History Hx Cardiac Surgery: Yes (HEART CATH, STENT X1) Hx Internal Defibrillator: No Hx Pacemaker: No Hx Abdominal Surgery: No Hx of Implantable Prosthesis: No Hx Post-Op Nausea and Vomiting: No Hx Cancer Surgery: No Hx Thoracic Surgery: No Hx Orthopedic: Yes (LT FOOT LITTLE TOE SURGERY) Hx Urinary Tract Surgery: No Family History None Social History Smoking Status: Former Smoker Hx Substance Use: No Hx Alcohol Use: Yes (QUIT 2 YEARS AGO) Allergies Coded Allergies: Codeine (Verified Adverse Reaction, Unknown, DELIRIUM,MEAN, 03/08/17) PT REPORTS AGGRESSIVE BEHAVIORS. Current Medications Reported Home Medications Medications Dose Route/Sig Max Daily Dose Days Date Category Tums Ultra 1000 (Calcium Carbonate (Antacid)) 1,000 Mg Chw 1 Tab PO TID 03/08/17 Reported Lasix (Furosemide) 40 Mg Tab 40 Mg PO BID 08/25/16 Reported Prorenal Vital (Multiple Vitamins W/ Minerals) 1 Tab Tab 1 Tab PO QAM 04/27/16 Reported Zestril (Lisinopril) 40 Mg Tab 40 Mg PO QAM 04/27/16 Reported Combivent Respimat (Ipratropium-Albuterol) 1 Aer Aer 1 Puffs INH QID PRN 04/27/16 Reported Lopressor (Metoprolol Tartrate) 50 Mg Tab 100 Mg PO BID 04/27/16 Reported Toujeo Solostar (Insulin Glargine) 300 Unit/Ml Inj 80 Units SQ QAM 03/24/16 Reported Aspirin 81 (Aspirin) 81 Mg Tab 81 Mg PO QAM 03/24/16 Reported Clopidogrel (Clopidogrel Bisulfate) 75 Mg Tab 75 Mg PO QAM 03/24/16 Reported Amlodipine Besylate 10 Mg Tab 10 Mg PO QAM 03/24/16 Reported Lipitor (Atorvastatin Calcium) 80 Mg Tab 80 Mg PO QAM 03/24/16 Reported Vital Signs Weight (Kilograms): 110 Height (Feet): 5 Height (Inches): 10 Date Time Temp Pulse Resp B/P (MAP) Pulse Ox O2 Delivery O2 Flow Rate FiO2 03/12/17 09:01 36.7 75 20 202/92 (128) 99 Room Air Physical Exam General Appearance: WD/WN, no apparent distress Respiratory/Chest: Auscultation: breath sounds normal Cardiovascular: Heart Auscultation: RRR Abdomen: Bowel Sounds: normal Inspection & Palpation: soft, non-distended, no tenderness, guarding & rebound Assessment and Plan Assessment: 46 yo CM who presents for colonoscopy secondary to diarrhea. Plan: Proceed with colonoscopy.
--- NOTE | 2017-03-12 10:27 | GI REPORT ---
Procedure Date: 03/12/2017 9:22 AM Procedure: Colonoscopy Indications: Screening for colorectal malignant neoplasm Medicines: Monitored Anesthesia Care Complications: No immediate complications. Estimated Blood Loss: Estimated blood loss: none. Procedure: Pre-Anesthesia Assessment: - Prior to the procedure, a History and Physical was performed, and patient medications and allergies were reviewed. The patient's tolerance of previous anesthesia was also reviewed. The risks and benefits of the procedure and the sedation options and risks were discussed with the patient. All questions were answered, and informed consent was obtained. Prior Anticoagulants: The patient has taken aspirin, last dose was 1 day prior to procedure. ASA Grade Assessment: III - A patient with severe systemic disease. After reviewing the risks and benefits, the patient was deemed in satisfactory condition to undergo the procedure. After I obtained informed consent, the scope was passed under direct vision. Throughout the procedure, the patient's blood pressure, pulse, and oxygen saturations were monitored continuously. The Scope was introduced through the anus and advanced to the terminal ileum. The colonoscopy was performed without difficulty. The patient tolerated the procedure well. The quality of the bowel preparation was good. The terminal ileum, ileocecal valve, appendiceal orifice, and rectum were photographed. Findings: The perianal and digital rectal examinations were normal. A 5 mm polyp was found in the ascending colon. The polyp was sessile. The polyp was removed with a hot snare. Resection and retrieval were complete. A 15 mm polyp was found in the ascending colon. The polyp was flat. The polyp was removed with a piecemeal technique using a hot snare. Resection and retrieval were complete. To prevent bleeding after the polypectomy, five hemostatic clips were successfully placed (MR conditional). There was no bleeding at the end of the procedure. Area was tattooed with an injection of 3 mL of Purnima ink. A 5 mm polyp was found in the sigmoid colon. The polyp was sessile. The polyp was removed with a hot snare. Resection and retrieval were complete. Non-bleeding internal hemorrhoids were found during retroflexion. The hemorrhoids were small. Impression: - One 5 mm polyp in the ascending colon, removed with a hot snare. Resected and retrieved. - One 15 mm polyp in the ascending colon, removed piecemeal using a hot snare. Resected and retrieved. Clips (MR conditional) were placed. Tattooed. - One 5 mm polyp in the sigmoid colon, removed with a hot snare. Resected and retrieved. - Non-bleeding internal hemorrhoids. Recommendation: - Resume previous diet. - Resume aspirin at prior dose in 7 days. - Await pathology results. - Repeat colonoscopy in 6 months for surveillance after piecemeal polypectomy. - Return to primary care physician as previously scheduled. Rk Moreno, DO 03/12/2017 10:26:46 AM This report has been signed electronically. Note Initiated On: 03/12/2017 9:22 AM I attest to the content of the Intraoperative Record and orders documented therein, exceptions below
--- NOTE | 2017-03-12 10:28 | Discharge Instructions ---
Endoscopy Patient Instructions Date / Procedure(s) Performed Mar 12, 2017. Colonoscopy Allergy Information Coded Allergies: Codeine (Verified Adverse Reaction, Unknown, DELIRIUM,MEAN, 03/08/17) PT REPORTS AGGRESSIVE BEHAVIORS. Discharge Date / Findings Mar 12, 2017. Colon polyps Internal hemorrhoids Medication Instructions 1) Restart Aspirin therapy in 1 week 2) Restart all other medications today as prescribed Reported Home Medications Medications Dose Route/Sig Max Daily Dose Days Date Category Tums Ultra 1000 (Calcium Carbonate (Antacid)) 1,000 Mg Chw 1 Tab PO TID 03/08/17 Reported Lasix (Furosemide) 40 Mg Tab 40 Mg PO BID 08/25/16 Reported Prorenal Vital (Multiple Vitamins W/ Minerals) 1 Tab Tab 1 Tab PO QAM 04/27/16 Reported Zestril (Lisinopril) 40 Mg Tab 40 Mg PO QAM 04/27/16 Reported Combivent Respimat (Ipratropium-Albuterol) 1 Aer Aer 1 Puffs INH QID PRN 04/27/16 Reported Lopressor (Metoprolol Tartrate) 50 Mg Tab 100 Mg PO BID 04/27/16 Reported Toujeo Solostar (Insulin Glargine) 300 Unit/Ml Inj 80 Units SQ QAM 03/24/16 Reported Aspirin 81 (Aspirin) 81 Mg Tab 81 Mg PO QAM 03/24/16 Reported Clopidogrel (Clopidogrel Bisulfate) 75 Mg Tab 75 Mg PO QAM 03/24/16 Reported Amlodipine Besylate 10 Mg Tab 10 Mg PO QAM 03/24/16 Reported Lipitor (Atorvastatin Calcium) 80 Mg Tab 80 Mg PO QAM 03/24/16 Reported Provider Instructions Activity Restrictions - No exercising or heavy lifting for 24 hours. - Do not drink alcohol the day of the procedure. - Do not drive a car or operate machinery until the day after the procedure. - Do not make any important decisions or sign important papers in 24 hours after the procedure. Following Day: - Return to full activity which may include returning to work/school. Diet Start your diet with liquids and light foods (jello, soup, juice, toast). Then eat your usual diet if not nauseated. Treatment For Common After Affects For mild abdominal pain, bloating, or excessive gas: - Rest - Eat lightly - Lie on right side Follow-Up Information Follow-up with Mich as scheduled Anesthesia Information What You Should Know You have had a procedure that required some medicine to reduce anxiety and discomfort. This treatment is called moderate sedation. After receiving the treatment, you may be sleepy, but you will be able to breathe on your own. The effects of the treatment may last for several hours. Follow these instructions along with Activity/Diet recommendations noted above: * Do NOT do anything where dizziness or clumsiness would be dangerous. * Rest quietly at home today, then you can be up and about tomorrow. * Have a responsible person stay with you the rest of today. * You may have had an I.V. today. If so, you may take the dressing off later today. Recommendations Call your doctor if: * Trouble breathing * Continuous vomiting for more than 24 hours * Temperature above 101 degrees * Severe abdominal pain or bloating * Pain not relieved by pain medicine ordered * There is increased drainage or redness from any incision * A large amount of rectal bleeding greater than 2-3 tablespoons. (If you had a polyp/s removed or have hemorrhoids, a small amount of blood - from the rectum is to be expected.) * You have any unanswered questions or concerns. IN THE EVENT OF A SERIOUS EMERGENCY, GO TO THE NEAREST EMERGENCY ROOM Your discharge instructions were prepared by provider Rk Moreno. Patient Instructions Signature Page Ryan Walker Patient (or Guardian) Signature/Date: I have read and understand the instructions given to me by my caregivers. Caregiver/RN/Doctor Signature/Date: The above-named patient and/or guardian has received patient instructions on this date. + Original Patient Signature Page (only) stays with chart. Please make copy for patient.
[2017-03-12 11:00] VITALS: BP 159/91; PULSE 67; O2SAT 100
--- NOTE | 2017-03-12 11:12 | Anesthesiology Progress Note ---
Anesthesia Post Op Note Date & Time Mar 12, 2017 at 11:12 Vital Signs Pain Intensity: 2 Vital Signs Past 12 Hours Date Time Temp Pulse Resp B/P (MAP) Pulse Ox O2 Delivery O2 Flow Rate FiO2 03/12/17 11:00 67 18 159/91 (113) 100 Room Air 03/12/17 10:43 68 18 150/104 (119) 100 Room Air 03/12/17 10:27 67 12 128/77 (94) 100 Room Air 03/12/17 09:01 36.7 75 20 202/92 (128) 99 Room Air Notes Mental Status: alert / awake / arousable, participated in evaluation Pt Amnestic to Procedure: Yes Nausea / Vomiting: adequately controlled Pain: adequately controlled Airway Patency, RR, SpO2: stable & adequate BP & HR: stable & adequate Hydration State: stable & adequate Anesthetic Complications: no major complications apparent
== END | disposition home or self-care (01) ==
LOC: C.GI 08:34
PROVIDERS: ATTEND Internal Medicine
DX: Z12.11 Encounter for screening for malignant neoplasm of colon (principal); D12.2 Benign neoplasm of ascending colon; D12.5 Benign neoplasm of sigmoid colon; K64.8 Other hemorrhoids; Z87.891 Personal history of nicotine dependence; I25.10 Atherosclerotic heart disease of native coronary artery without angina pectoris; Z95.5 Presence of coronary angioplasty implant and graft; E11.22 Type 2 diabetes mellitus with diabetic chronic kidney disease; N18.6 End stage renal disease; Z99.2 Dependence on renal dialysis; E66.9 Obesity, unspecified; Z68.35 Body mass index [BMI] 35.0-35.9, adult; Z79.899 Other long term (current) drug therapy

== ENCOUNTER 2018-09-30 20:56 | Inpatient (IN) ==
[2018-09-30] MEDS ORDERED: NITROGLYCERIN SL 0.4 MG/TAB TAB SL PRN (23:06)
[2018-09-30] MEDS ORDERED: ENOXAPARIN INJ 40 MG/0.4 ML SYR SQ SCH (23:15)
[2018-09-30] MEDS ORDERED: methylPREDNISolone 125 MG/2 ML VIAL IV STA (23:28)
--- NOTE | 2018-10-01 00:01 | History & Physical Report ---
Date of Service September 30, 2018 Assessment & Plan (1) Hypoxia: 48-year-old male with a history of HTN, HLD, T2DM, CHF, bilateral pleural effusions, ESRD on dialysis, CAD s/p stents presents as a transfer from [facility] with hypoxia. Acute hypoxic respiratory distress Was diagnosed with pneumonia over the weekend, continue treatment with ceftriaxone/doxycycline Afebrile, normal white count DuoNeb treatments, O2 as needed Obtain blood cultures, VBG, troponin, EKG, chest x-ray, chest CT History of bilateral pleural effusions CT chest without contrast, results pending Thoracic surgery consult, appreciate recommendations End-stage renal disease Patient received dialysis this morning Patient scheduled is Sunday, Sunday, Sunday - Anemia likely 2/2 kidney disease. No signs or sx of blood loss. Trend cbc. Hypertension/hyperlipidemia/CAD Continue aspirin, atorvastatin, amlodipine, clopidogrel, Lasix, lisinopril, metoprolol Type 2 diabetes Continue Lantus and sliding scale insulin DVT prophylaxis Heparin subcu CODE STATUS Full code (2) H/O pleural effusion: (3) Hypertension: (4) Diabetes: (5) Chronic kidney disease: (6) CHF (congestive heart failure): (7) Anemia: (8) FIDE (acute kidney injury): (9) Hyperlipidemia: History of Present Illness Primary Care Provider: NO PCP 48-year-old male with a history of HTN, HLD, T2DM, CHF, bilateral pleural effusions, ESRD on dialysis, CAD s/p stents presents as a transfer from [facility] with hypoxia. Patient reports that he was admitted over this weekend at [facility] for similar presentation. At that time, the patient states that he had a cough, fever and was short of breath. He states that he was discharged this morning from [facility] with treatment for pneumonia, but he says that while at dialysis this morning, he became short of breath and was subsequently brought to [facility]. He arrives to [facility] on 3 L nasal cannula. Patient reports having a past medical history of pleural effusions, the patient is unsure of the cause but confirms a history of CHF and end-stage renal disease. He is required thoracocentesis on 2 occasions to remove fluid. He denies a history of chronic lung disease, although the patient does report smoking for a number of years. He quit 15 years ago. The patient is never required oxygen at home. Patient states that he is on a kidney transplant list and recently had to get a cardiac stress test on September 03 which was stable. He does report a 1 year history of intermittent vomiting and will be receiving a colonoscopy shortly. Review of systems Constitutional; denies fevers, chills, night sweats HEENT; denies sore throat, runny nose Pulmonary; reports a nonproductive cough, denies hemoptysis, reports shortness of breath Cardio; denies chest pain, denies palpitations GI; denies abdominal pain, but has chronic nausea/vomiting Allergies Allergy/AdvReac Type Severity Reaction Status Date / Time codeine AdvReac Intermediate DELIRIUM,ME Verified 07/09/18 15:49 AN Home Medications Home Medications Medication Instructions Recorded Confirmed Type Lj SoloStar U-300 Insulin 50 unit SUBCUT QAM 05/06/18 09/30/18 History aspirin 81 mg PO QAM 05/06/18 09/30/18 History atorvastatin [Lipitor] 80 mg PO HS 05/06/18 09/30/18 History clopidogrel 75 mg PO QAM 05/06/18 09/30/18 History furosemide [Lasix] 40 mg PO BID 05/06/18 09/30/18 History lisinopril 40 mg PO QAM 05/06/18 09/30/18 History pantoprazole 40 mg PO QAM 05/06/18 09/30/18 History Renal Caps 1 cap PO QPM 05/10/18 09/30/18 History metoprolol tartrate 50 mg PO BID 07/09/18 09/30/18 History amlodipine 10 mg PO DAILY 09/30/18 09/30/18 History cefuroxime axetil 250 mg PO BID 09/30/18 09/30/18 History metoclopramide HCl 5 mg PO ACHS 09/30/18 09/30/18 History Past Med/Surg History Medical History Anemia (Acute) CHF (congestive heart failure) (Acute) CKD (chronic kidney disease) (Acute) started - dialysis mondays, wednesdays and fridays @ [facility] - follows w/ Dr. Hendrickson Diabetes (Acute) IDDM HTN (hypertension) (Acute) Diverticular disease GERD (gastroesophageal reflux disease) Hyperlipidemia Presence of arteriovenous fistula for hemodialysis left forearm Surgical History History of foot surgery (Acute) left x 4 History of heart artery stent (Acute) X2 History of cardiac cath X 2 - 11/2017 - [facility] - SOB - 1 stent placed - follows w/ Dr. Decker - 2016 - [facility] - SOB - 1 stent placed History of colonoscopy History of tooth extraction Social History Preferred Language: Divehi Communication Ability: Effective Morgue Technician Required: No Beliefs That Will Affect Care: None marital status: Life Partner Current Living Situation: Significant Other Other Information That Helps Us Care for You: No Feels Safe at Home: Yes Safety Concerns: Feels Safe At This Time Smoking Status: Former smoker Tobacco Type: cigars and smokeless tobacco ; Cigarettes Per Day: QUIT YEARS AGO ; Second Hand Exposure: Yes ; Tobacco Cessation Education Requested by Patient: No Hx Alcohol Use: No Hx Substance Use: No Review of Systems Review of Systems: All systems reviewed & are unremarkable except as noted in HPI & below Physical Exam Constitutional: WD/WN, vitals as above Eyes: PERRL, conjunctivae normal, anicteric sclerae ENMT: external ear and nose normal, oropharynx normal Neck: trachea midline, no thyromegaly Respiratory: no respiratory distress, no labored breathing and does not use accessory muscles Auscultation: + diminished lung sounds (In bilateral bases) and + wheezes (Diffuse bilateral); no crackles and no rales Cardiovascular: RRR, no murmur, no edema Gastrointestinal (Abdomen): normal bowel sounds, soft, nontender, no hepatosplenomegaly Musculoskeletal: no cyanosis or clubbing, extremities motor strength 5/5 Skin: no rashes, warm and dry Neurologic: PERRL, EOMI, accommodation nl, no face palsy, no dysarthria Psychiatric: A+Ox3, euthymic affect Results & Data Vital Signs (Past 12 Hours) Vital Signs Temp Pulse Resp BP Pulse Ox 09/30/18 22:31 37 C 75 20 187/88 H 95 Code Status & VTE Plan Code Status Full code VTE Prophylaxis Plan VTE Prophylaxis will be ordered: Yes Supervising Physician Co-Signing Physician Notes Attending addendum: I have physically seen this patient, have supervised the medical residents activities, and agree with the H&P unless as otherwise noted. Assessment and Plan: Acute respiratory failure with hypoxia/pleural effusions- Received as transfer from [facility] emergency department. Recently admitted to [facility] for 4 days and discharged on 09/30, but since still short of breath after dialysis, reported to the ED and [place], and then referred to this facility. Ceftriaxone IV and azithromycin IV Duonebs every 4 hours while awake and every 2 hours when necessary. Get copies of records from [facility]. Consult thoracic surgery Dr. Wall. ESRD on HD- Receive dialysis on Sunday, Sunday and Sunday. Consult nephrology. Diabetes mellitus- Continue Lantus. Placed on Accu-Cheks before meals and at bedtime with NovoLog coverage per scale. Remaining orders and notations as noted. PG Care Time/CCT Total # of Minutes Spent Total Time Spent with Patient: Total time spent is greater than 50% in coordination of care (as documented) at patient's floor/unit and/or counseling patient: Resident Activity Tracking Resident Involvement: Resident Care Provided Care Provided: Adult Hospital Medicine
[2018-10-01 00:31] LABS: INR 1.1 (0.9-1.1); Prothrombin Time 10.8 Seconds (9.0-12.0)
[2018-10-01 00:54] LABS: Creatinine Clr Calc Pharmacy 18.7 ml/min; Est GFR (African American) 12.6; Est GFR (Non-African American) 10.9; Troponin I 0.026 ng/ml (0-0.045)
[2018-10-01] MEDS ORDERED: AZITHROMYCIN 250 MG TAB PO ONE (01:03)
[2018-10-01] MEDS: METOPROLOL TARTRATE 50 MG TAB PO SCH ×3 (01:24→20:03)
[2018-10-01] MEDS: ASPIRIN 81 MG ECTAB PO SCH ×2 (01:24→07:37)
[2018-10-01] MEDS: FUROSEMIDE 40 MG TAB PO SCH ×3 (01:24→20:02)
[2018-10-01] MEDS: cefTRIAXone SODIUM 2,000 MG in DEXTROSE 5% 50 ML IV SCH ×2 (01:45→21:43)
[2018-10-01] MEDS: DOXYCYCLINE HYCLATE 100 MG CAP PO SCH ×3 (02:14→20:04)
[2018-10-01] MEDS: INSULIN ASPART 100 UNITS/ML 3 ML PEN SC SCH ×4 (06:07→20:45)
[2018-10-01] MEDS: HEPARIN SOD 5,000 UNIT/0.5 ML VIAL SQ SCH ×3 (06:07→20:45)
[2018-10-01 06:55] LABS: Basophils # (auto) 0.05 K/uL (0-0.2); Basophils % (auto) 0.7 %; Eosinophils # (auto) 0.21 K/uL (0-0.5); Eosinophils % (auto) 2.8 %; Hemoglobin 8.2 g/dL (14.0-18.0); Immature Granulocytes # (auto) 0.02 K/uL (0.00-0.02); Immature Granulocytes % (auto) 0.3 %; Lymphocytes # (auto) 1.03 K/uL (1.2-3.4); Lymphocytes % (auto) 13.7 %; Mean Corpuscular Hgb Conc 32.8 g/dL (32-36); Mean Corpuscular Volume 89.6 fL (80-100); Mean Platelet Volume 9.8 fL (7.4-10.4); Monocytes # (auto) 0.67 K/uL (0.11-0.59); Monocytes % (auto) 8.9 %; Neutrophils # (auto) 5.56 K/uL (1.4-6.5); Neutrophils % (auto) 73.6 %; Platelet Count 207 K/uL (130-400); RDW Coefficient of Variation 15.8 % (11.5-14.5); RDW Standard Deviation 51.3 fL (36.4-46.3); Red Blood Count 2.79 M/uL (4.7-6.1); White Blood Count 7.54 K/uL (4.8-10.8)
[2018-10-01 06:58] LABS: Base Excess VBG 11.9 mEq/L; HCO3 VBG 37 mmol/L; Oxygen Saturation VBG < 60.0 %; PCO2 VBG 52 mmHg (38-50); PO2 VBG 28 mmHg; pH VBG 7.47 (7.36-7.41)
[2018-10-01] MEDS: ALBUT/IPRATROP 3MG/0.5MG NEB 3 ML VIAL NEB SCH ×4 (07:02→19:26)
--- NOTE | 2018-10-01 07:34 | XRay Report ---
SINGLE VIEW CHEST CLINICAL HISTORY: Hypoxia. FINDINGS: 2 AP, portable, upright chest radiographs are compared to study dated 03/25/2016. The examin ation is degraded by portable technique and patient rotation. The heart is enlarged and there is at herosclerotic calcification of the thoracic aorta. There is pulmonary vascular congestion with mild i nterstitial edema. There are layering pleural effusions with bibasilar consolidation. No pneumothorax is seen. The skeletal structures are osteopenic. There are healed left-sided rib fractures. IMPRESSION: 1. Cardiomegaly with evidence of congestive failure and mild interstitial edema. 2. Layering pleural effusions with bibasilar consolidation. Electronically signed by: Bin Dove M.D. 10/01/2018 7:33 AM
[2018-10-01] MEDS: AMLODIPINE BESYLATE 5 MG TAB PO SCH (07:37)
[2018-10-01] MEDS: LISINOPRIL 40 MG TAB PO SCH (07:38)
[2018-10-01] MEDS: CLOPIDOGREL BISULFATE 75 MG TAB PO SCH (07:38)
[2018-10-01] MEDS: METOCLOPRAMIDE HCL 5 MG TABLET PO SCH ×4 (07:39→20:03)
--- NOTE | 2018-10-01 08:02 | CT Scan Report ---
CT SCAN OF THE CHEST WITHOUT IV CONTRAST CLINICAL HISTORY: Hypoxia. COMPARISON STUDY: Chest x-ray dated 09/30/2018. TECHNIQUE: CT scan of the thorax was performed from the thoracic inlet to the upper abdomen. Images are reviewed in the axial, sagittal, and coronal planes. IV contrast was not administered for this ex amination as per the referring clinician. A dose lowering technique was utilized adhering to the [facility] [place]. CT DOSE: 977.67 mGy.cm FINDINGS: Thyroid: Imaged portions of the thyroid gland are normal in size and attenuation. Thoracic aorta: There is mild atherosclerotic calcification of the thoracic aorta, which is normal in caliber and demonstrates standard 3-vessel arch anatomy. Heart: The heart is mildly enlarged and there is trace pericardial effusion. The coronary arteries ar e densely calcified. Lungs and pleural spaces: Evaluation of the lung parenchyma is degraded by motion artifact. There are moderate layering pleural effusions with bibasilar consolidation. Diffuse intralobular septal thicke joy is consistent with congestive failure. The trachea and central airways are clear. Mediastinum: There are numerous mildly enlarged mediastinal lymph nodes which measure up to 11 mm in short axis. Cathy: Not well assessed without IV contrast. Axillae: There is no axillary lymphadenopathy. Upper abdomen: A 1.7 cm cyst is noted in the left lobe of the liver. Advanced atherosclerotic calcifi cation is noted in the partially imaged abdominal vasculature. Enteric contrast is noted in the colon . Skeletal structures: No lytic or blastic bony lesions are seen. Mild degenerative change is seen thro ughout the spine. There are healed left-sided rib fractures. IMPRESSION: 1. Cardiomegaly with evidence of congestive failure and interstitial edema. 2. Layering pleural effusions with bibasilar consolidation. 3. Mildly enlarged mediastinal lymph nodes are nonspecific and likely reactive. 4. Additional findings as above. Electronically signed by: Bin Dove M.D. 10/01/2018 8:01 AM
[2018-10-01] MEDS ORDERED: INSULIN GLARGINE 100 UNIT/ML VIAL SQ SCH (09:00)
--- NOTE | 2018-10-01 11:35 | Family Medicine Progress Note ---
Date of Service October 01, 2018 Assessment & Plan (1) Hypoxia: 48-year-old male with a history of HTN, HLD, Type 2 DM, CHF, bilateral pleural effusions, ESRD on dialysis, CAD s/p stents presents as a transfer from [facility] with hypoxia. Acute hypoxic respiratory distress with Bilateral Pleural Effusions Was diagnosed with pneumonia over the weekend at [place], continue treatment with ceftriaxone IV and doxycycline PO. -Awaiting records from [place] - still pending as of 16:00 today. -Consider D/C Abx tomorrow morning if cultures negative and patient continues to be afebrile and has a normal white count. DuoNeb treatments PRN wheezing -Currently 92% on 1L, patient does not use O2 at home. Obtain blood cultures, VBG, troponin, EKG, chest x-ray, chest CT -Chest CT w/o - Layering pleural effusions with bibasilar consolidation. -Chest X-ray - Bibasilar pleural effusion -EKG - negative -Troponin - negative. -Blood cultures - pending. -Thoracic Consult placed -Nursing spoke with PA for Dr. Wall -Plan for Pleural Cath in the AM -NPO after midnight in case need for OR procedure -Echocardiogram ordered to R/O HF as cause for recurrent Pleural Effusions -EF 60-65% -Unchanged from Echo from 2017. End-stage renal disease Patient received dialysis this morning. Patient scheduled is Sunday, Sunday, Sunday Hypertension/hyperlipidemia/CAD x2 stents Continue home amlodipine, lasix, lisinopril, metoprolol Hyperlipidemia -Continue home atorvastatin CAD x 2 stents -Continue home aspirin and clopidogrel Type 2 diabetes Continue Lantus and sliding scale insulin. Chronic Itching -Continue home Diphenhydramine 25mg BID PRN itching. FEN/GI - No fluids Code - Full DVT - Heparin (2) H/O pleural effusion: (3) Hypertension: (4) Diabetes: (5) Chronic kidney disease: (6) CHF (congestive heart failure): (7) Anemia: (8) FIDE (acute kidney injury): (9) Hyperlipidemia: (10) Itch of skin: Supervising Physician Co-Signing Physician Notes Resident Physician Supervision Note: I independently interviewed and examined the patient and verified the mata history and physical, reviewed labs and image studies, discussed the case with the resident Dr. Brown and agree with the findings and care plan. Subjective Patient seen and evaluated this AM at the bedside. Patient notes significant improvement in his respiratory status, however, still requires 1L of O2. He makes mention that he has had this similar issue in the past, and has required thoracocentesis of his lungs in March and August of this year. He notes that during both of these events, he had complete recovery after the pleural fluid was removed and he was able to go home without O2. He has no other complaints at this time. Review of Systems Constitutional: no fever, no chills, no sweats and no weakness Eyes: no eye pain Ear, Nose, Mouth, Throat: no ear pain, no tinnitus and no dizziness Respiratory: + cough, + dyspnea (noted earlier in morning, currently well on 1L O2), + dyspnea on exertion and + wheezing (noted earlier in the morning, not current.); no pain on inspiration Cardiovascular: no chest pain, no chest pain at rest, no palpitations and no edema Gastrointestinal: + vomiting (notes a hx of occasional vomiting, not current); no abdominal pain, no constipation and no diarrhea/loose stools Genitourinary: no dysuria and no hematuria Physical Exam Constitutional: WD/WN, vitals as above Eyes: PERRL, conjunctivae normal, anicteric sclerae ENMT: external ear and nose normal, oropharynx normal Neck: trachea midline, no thyromegaly Respiratory: normal respiratory effort (on 1L of O2) and + cough; no respiratory distress, no labored breathing and does not use accessory muscles Auscultation: + diminished lung sounds (In bilateral lower lung jacinto, patient seated upright for PE) and + wheezes (Diffuse bilateral); no crackles and no rales Cardiovascular: RRR, no murmur, no edema Gastrointestinal (Abdomen): normal bowel sounds, soft, nontender, no hepatosplenomegaly Musculoskeletal: Head/Neck/Chest: normocephalic, head atraumatic and neck supple Skin: no rashes, warm and dry Neurologic: moves all extremities Speech / Cognition: normal speech Psychiatric: A+Ox3, euthymic affect Results & Data Vital Signs (Past 12 Hours) Vital Signs Temp Pulse Resp BP Pulse Ox 10/01/18 11:23 68 18 92 10/01/18 11:17 36.7 C 64 18 149/74 H 91 10/01/18 07:32 36.7 C 72 19 176/82 H 90 10/01/18 07:02 69 18 98 10/01/18 02:41 36.6 C 69 19 151/68 H 90 09/30/18 23:53 37.2 C 78 18 184/87 H 94 Laboratory Results Abnormal lab results 10/01/18 10/01/18 10/01/18 Range/Units 00:04 06:01 06:40 RBC 2.79 L (4.7-6.1) M/uL Hgb 8.2 L (14.0-18.0) g/dL Hct 25.0 L (42-52) % RDW Std Deviation 51.3 H (36.4-46.3) fL RDW Coeff of Octavio 15.8 H (11.5-14.5) % Lymph # (Auto) 1.03 L (1.2-3.4) K/uL Coos # (Auto) 0.67 H (0.11-0.59) K/uL VBG pH (7.36-7.41) VBG pCO2 (38-50) mmHg Creatinine 5.60 H* (0.6-1.4) mg/dl POC Glucose 142 H (70-99) 10/01/18 10/01/18 10/01/18 Range/Units 06:40 07:25 11:14 RBC (4.7-6.1) M/uL Hgb (14.0-18.0) g/dL Hct (42-52) % RDW Std Deviation (36.4-46.3) fL RDW Coeff of Octavio (11.5-14.5) % Lymph # (Auto) (1.2-3.4) K/uL Coos # (Auto) (0.11-0.59) K/uL VBG pH 7.47 H (7.36-7.41) VBG pCO2 52 H (38-50) mmHg Creatinine (0.6-1.4) mg/dl POC Glucose 136 H 115 H (70-99) 10/01/18 Range/Units 16:22 RBC (4.7-6.1) M/uL Hgb (14.0-18.0) g/dL Hct (42-52) % RDW Std Deviation (36.4-46.3) fL RDW Coeff of Octavio (11.5-14.5) % Lymph # (Auto) (1.2-3.4) K/uL Coos # (Auto) (0.11-0.59) K/uL VBG pH (7.36-7.41) VBG pCO2 (38-50) mmHg Creatinine (0.6-1.4) mg/dl POC Glucose 175 H (70-99) Diagnostic Findings Echocardiogram from 10/01/18 Interpretation: There is mild concentric left ventricular hypertrophy. Left ventricular systolic function is normal. Normal diastolic function. The left atrium is mildly dilated. Right ventricular systolic pressure is normal. Large left pleural effusion. Compared to study from 2017, no change. Ejection fraction 60-65% Medications Administered Current Inpatient Medications Acetaminophen (Tylenol) 650 mg PO Q4H PRN PRN Reason: Pain or Fever Stop: 10/30/18 23:05 Albuterol (Duoneb) 3 ml NEB QIDR [facility] Stop: 10/31/18 07:59 Last Admin: 10/01/18 15:15 Dose: 3 ml Documented by: Amlodipine Besylate (Norvasc) 10 mg PO DAILY [facility] Stop: 10/31/18 08:59 Last Admin: 10/01/18 07:37 Dose: 10 mg Documented by: Aspirin (Ecotrin Ectab) 81 [facility] Stop: 10/30/18 23:29 Last Admin: 10/01/18 07:37 Dose: 81 mg Documented by: Atorvastatin Calcium (Lipitor) 80 mg PO HS [facility] Stop: 10/31/18 20:59 Clopidogrel Bisulfate (Plavix) 75 mg PO QAM [facility] Stop: 10/31/18 08:59 Last Admin: 10/01/18 07:38 Dose: 75 mg Documented by: Diphenhydramine HCl (Benadryl Capsule) 25 mg PO BID PRN PRN Reason: Itching Stop: 10/31/18 08:35 Last Admin: 10/01/18 08:56 Dose: 25 mg Documented by: Doxycycline Hyclate (Vibramycin) 100 mg PO BID [facility] Stop: 10/08/18 01:59 Last Admin: 10/01/18 07:36 Dose: Not Given Documented by: Furosemide (Lasix) 40 mg PO BID [facility] Stop: 10/30/18 23:14 Last Admin: 10/01/18 07:39 Dose: 40 mg Documented by: Heparin Sodium (Porcine) (Heparin Sodium (Porcine)) 5,000 units SQ Q8 [facility] Stop: 10/31/18 05:59 Last Admin: 10/01/18 13:58 Dose: 5,000 units Documented by: Ceftriaxone Sodium 2,000 mg/ (Dextrose) 70 mls @ 100 mls/hr IV DAILY@2200 [facility]; Protocol Stop: 10/08/18 01:29 Last Infusion: 10/01/18 02:33 Dose: Infused Documented by: Insulin Aspart (Novolog Flexpen) 0 units SC ACHS [facility] Stop: 10/31/18 07:29 Last Admin: 10/01/18 16:53 Dose: 6 units Documented by: Insulin Glargine (Lantus) 50 units SQ QAM [facility]; Protocol Stop: 11/01/18 08:59 Lisinopril (Zestril) 40 mg PO QAM [facility] Stop: 10/31/18 08:59 Last Admin: 10/01/18 07:38 Dose: 40 mg Documented by: Metoclopramide HCl (Reglan) 5 mg PO ACHS [facility] Stop: 10/31/18 07:29 Last Admin: 10/01/18 16:53 Dose: 5 mg Documented by: Metoprolol Tartrate (Lopressor) 50 mg PO BID [facility] Stop: 10/30/18 23:14 Last Admin: 10/01/18 07:37 Dose: 50 mg Documented by: Nitroglycerin (Nitrostat) 0.4 mg SL UD PRN PRN Reason: Chest Pain Stop: 10/30/18 23:05 Vitamin B Complex/Folic Acid (Nephrocaps) 1 cap PO QPM [facility] Stop: 10/31/18 20:59 Resident Activity Tracking Resident Involvement: Resident Care Provided Care Provided: Adult Hospital Medicine (1) Diabetes Diabetes mellitus type: type 2
--- NOTE | 2018-10-01 20:00 | Consultation Report ---
DATE OF CONSULTATION: 10/01/2018 HISTORY OF PRESENT ILLNESS: Ryan Walker is unfortunate 48-year-old male who has been suffering from diabetes for about 20 years. The patient has had recurrent bilateral pleural effusions and has end-stage renal disease, has been on dialysis for 2-1/2 years. He has had these pleural effusions drained multiple times. His last was just a few weeks ago. The patient presents as a transfer from [facility] as he is continuing to be hypoxic. I was asked to see him for bilateral pleural effusions, left greater than right. He also has coronary artery disease. I met the patient at bedside. He is up in his room walking. He is on oxygen with stable saturations. I was asked to evaluate him for management of these pleural effusions. PAST MEDICAL HISTORY: 1. End-stage renal disease. 2. Hypertension. 3. Diabetes mellitus. 4. Episodes of congestive heart failure. 5. Coronary artery disease. 6. Hyperlipidemia. 7. History of cigarette smoking. PAST SURGICAL HISTORY: 1. Left arteriovenous fistula. 2. Cardiac catheterization with stents. 3. Left foot surgery multiple times. 4. Tooth extraction. 5. Colonoscopy. MEDICATIONS AT HOME: 1. Reglan. 2. Aspirin. 3. Lipitor. 4. Cefuroxime orally. 5. Amlodipine. 6. Plavix. 7. Metoprolol. 8. Lasix. 9. Lisinopril. 10. Pantoprazole. 11. Renal Caps. 12. Insulin. ALLERGIES: CODEINE CAUSES DELIRIUM. 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 He did smoke years past, but only smoked for 10-15 years at a pack a day. He lives in [place] and is . He is disabled. REVIEW OF SYSTEMS: The patient states he has had some vomiting. It may be related to gastroparesis. He denied. He states he had a fever a few days ago, took Tylenol and it went away, he has not had any since. He has a cough but it is nonproductive. He denies chills or night sweats. He has had no fevers for the last 4 days. He denies any pharyngeal symptoms. He does wear glasses and he does have diabetic retinopathy, but has no changes acutely in his hearing or his vision. He denies any skin breakdown. He does have shortness of breath and is now on oxygen and states he is never on oxygen at home. He has had no palpitations or chest pain. He has no abdominal pain or diarrhea, but does have nausea and vomiting as listed above. He has had no peripheral edema. He neurologically does have neuropathy, but denies any focal deficits or seizures. PHYSICAL EXAMINATION: GENERAL: This is a 5 feet 9 inch, 230-pound male who wears glasses. HEENT: Extraocular movements are intact. Pupils are equally round and reactive. Sclerae are anicteric. He has no nasolabial flattening. He is edentulous. His oral mucosa is a bit dry. Tongue is midline. NECK: Supple. He has no neck vein distention, thyromegaly or carotid bruits. LUNGS: He has decreased breath sounds in both bases, more so on the left than the right; however, he has no wheezing. He has a few upper airway rhonchi. HEART: He has regular rate and rhythm of his heart. He has a well-functioning hemodialysis graft which is autologous in his left forearm. EXTREMITIES: He has a good thrill. He has good pulses in his feet and his wrist. ABDOMEN: Soft, nontender. He has bowel sounds. No evidence of ascites. MUSCULOSKELETAL: He has no joint effusions. He has no peripheral edema. NEUROLOGICAL: He does have decreased sensation to fine touch of his plantar surface, but otherwise has no focal deficits. He is alert and oriented. ASSESSMENT AND PLAN: Bilateral homogenous effusions which are recurrent. Ideally these effusions would be managed by his dialysis and control of his congestive heart failure; however a PleurX catheter specifically on the left side may be very helpful for him. I will discuss this with the consultants on this case. The patient is agreeable.
[2018-10-01] MEDS: ATORVASTATIN 40 MG TAB PO SCH (20:02)
[2018-10-01] MEDS: NEPHROCAPS PO SCH (20:03)
[2018-10-02] MEDS: HEPARIN SOD 5,000 UNIT/0.5 ML VIAL SQ SCH ×3 (05:32→21:02)
--- NOTE | 2018-10-02 06:50 | Family Medicine Progress Note ---
Date of Service October 01, 2018 Assessment & Plan (1) Hypoxia: (2) Hypertension: (3) Diabetes: (4) Chronic kidney disease: (5) CHF (congestive heart failure): (6) Anemia: (7) FIDE (acute kidney injury): (8) Hyperlipidemia: (9) Itch of skin: (10) Bilateral pleural effusion: (11) Acute respiratory failure with hypoxia: PG Care Time/CCT Total # of Minutes Spent Total Time Spent with Patient: Total time spent is greater than 50% in coordination of care (as documented) at patient's floor/unit and/or counseling patient: (1) Diabetes Diabetes mellitus type: type 2
[2018-10-02] MEDS: ALBUT/IPRATROP 3MG/0.5MG NEB 3 ML VIAL NEB SCH ×4 (07:15→19:44)
[2018-10-02] MEDS: METOCLOPRAMIDE HCL 5 MG TABLET PO SCH ×4 (07:48→21:02)
[2018-10-02] MEDS: DOXYCYCLINE HYCLATE 100 MG CAP PO SCH (07:48)
[2018-10-02] MEDS: ASPIRIN 81 MG ECTAB PO SCH (07:48)
[2018-10-02] MEDS: FUROSEMIDE 40 MG TAB PO SCH ×2 (07:49→21:03)
[2018-10-02] MEDS: CLOPIDOGREL BISULFATE 75 MG TAB PO SCH (07:51)
[2018-10-02] MEDS: AMLODIPINE BESYLATE 5 MG TAB PO SCH (07:51)
[2018-10-02] MEDS: LISINOPRIL 40 MG TAB PO SCH (07:52)
[2018-10-02] MEDS: INSULIN GLARGINE 100 UNIT/ML VIAL SQ SCH ×2 (07:53→09:20)
[2018-10-02] MEDS: INSULIN ASPART 100 UNITS/ML 3 ML PEN SC SCH ×5 (07:54→21:03)
[2018-10-02] MEDS: METOPROLOL TARTRATE 50 MG TAB PO SCH ×2 (07:56→21:03)
[2018-10-02] MEDS ORDERED: LIDOCAINE HCL 1% 20 ML VIAL ONE (07:57)
[2018-10-02] MEDS ORDERED: INSULIN GLARGINE 100 UNIT/ML VIAL SQ SCH (09:00)
--- NOTE | 2018-10-02 09:25 | Family Medicine Progress Note ---
Date of Service October 02, 2018 Assessment & Plan (1) Hypoxia: 48-year-old male with a history of HTN, HLD, Type 2 DM, CHF, bilateral pleural effusions, ESRD on dialysis, CAD s/p stents presents as a transfer from [facility] with hypoxia. Acute hypoxic respiratory distress with Bilateral Pleural Effusions Was diagnosed with pneumonia over the weekend at [place] -Awaiting records from [place] - Never received. -Culture preliminaries showed now growth at 24 hours. -D/C Ceftriaxone and Doxycycline due to continued negative white count and afebrile. -Chest X-ray in AM to monitor if Dialysis from today effected his pleural effusions. DuoNeb treatments PRN wheezing -Currently 93% on 1L, patient does not use O2 at home. Recent blood cultures, VBG, troponin, EKG, chest x-ray, chest CT showed: -Chest CT w/o - Layering pleural effusions with bibasilar consolidation. -Chest X-ray - Bibasilar pleural effusion -EKG - negative -Troponin - negative. -Blood cultures - Negative Preliminary -Thoracic Consult placed -Nursing spoke with PA for Dr. Wall -Plan for [place] tomorrow since patient is undergoing dialysis today. -Echocardiogram ordered to R/O HF as cause for recurrent Pleural Effusions -EF 60-65% -Unchanged from Echo from 2017. End-stage renal disease Patient to have dialysis today -Nephro consult placed. Patient scheduled is Sunday, Sunday, Sunday -CBC and BMP ordered for AM Hypertension Continue home amlodipine, lasix, lisinopril, metoprolol -Discussed with patient about how a sleep study could be beneficial for him in the outpatient setting -Patient has had a hx of resistant hypertension and has not been evaluated for Sleep Apnea. Hyperlipidemia -Continue home atorvastatin CAD x 2 stents -Continue home aspirin and clopidogrel Type 2 diabetes Continue Lantus and sliding scale insulin. -Patient states that he uses his Toujeo at home on a "sliding scale" per his own design. -Discussed with patient how poor diabetes management may be a contributing factor of his hx of vomiting. Chronic Itching -Continue home Diphenhydramine 25mg BID PRN itching. FEN/GI - No fluids, DM2 diet Code - Full DVT - Heparin (2) H/O pleural effusion: (3) Hypertension: (4) Diabetes: (5) Chronic kidney disease: (6) CHF (congestive heart failure): (7) Anemia: (8) FIDE (acute kidney injury): (9) Hyperlipidemia: (10) Itch of skin: Supervising Physician Co-Signing Physician Notes Resident Physician Supervision Note: I independently interviewed and examined the patient and verified the mata history and physical, reviewed labs and image studies, discussed the case with t resident Dr. Brown and agree with the findings and care plan. Subjective Patient was seen and evaluated while seated this AM. Patient notes that last night nursing turned his oxygen up while he was sleeping, but did not note any difficulties in breathing himself prior to them increasing his values. I discussed with him that it was possible that he had sleep apnea, leading to lowered oxygen levels while asleep, to which the patient replied he has never had any work up via a sleep study. He does note improvement in his breathing this morning. He has no other complaints at this time. Review of Systems Constitutional: no fever, no chills, no body aches and no fatigue Eyes: no eye pain Ear, Nose, Mouth, Throat: no ear pain, no tinnitus and no dizziness Respiratory: + cough, + dyspnea (noted earlier in morning, currently well on 1L O2), + dyspnea on exertion and + wheezing (noted earlier in the morning, not current.); no pain on inspiration Cardiovascular: no chest pain, no chest pain at rest and no radiating jaw, neck or arm pain Gastrointestinal: + vomiting (notes a hx of occasional vomiting, not current); no abdominal pain, no constipation and no diarrhea/loose stools Genitourinary: no dysuria and no hematuria Integumentary: + urticaria Physical Exam Constitutional: WD/WN, vitals as above Eyes: PERRL, conjunctivae normal, anicteric sclerae ENMT: external ear and nose normal, oropharynx normal Neck: trachea midline, no thyromegaly Respiratory: normal respiratory effort (on 1L of O2) and + cough; no respiratory distress, no labored breathing and does not use accessory muscles Auscultation: + diminished lung sounds (In bilateral lower lung jacinto, patient seated upright for PE), + crackles and + wheezes (Diffuse bilateral); no rales Cardiovascular: RRR, no murmur, no edema Gastrointestinal (Abdomen): normal bowel sounds, soft, nontender, no hepatosplenomegaly Musculoskeletal: Head/Neck/Chest: normocephalic, head atraumatic and neck supple Skin: no rashes, warm and dry Neurologic: moves all extremities Speech / Cognition: normal speech Psychiatric: A+Ox3, euthymic affect Results & Data Vital Signs (Past 12 Hours) Vital Signs Temp Pulse Resp BP Pulse Ox 10/02/18 07:27 36.6 C 106 H 19 172/72 H 100 10/02/18 07:17 73 16 91 10/02/18 03:00 92 10/02/18 02:58 36.8 C 80 20 172/76 H 85 L 10/01/18 23:41 37.2 C 73 18 161/70 H 90 Laboratory Results Abnormal lab results 10/01/18 10/02/18 10/02/18 Range/Units 20:14 07:24 09:18 RBC 2.96 L (4.7-6.1) M/uL Hgb 8.8 L (14.0-18.0) g/dL Hct 26.7 L (42-52) % RDW Std Deviation 52.6 H (36.4-46.3) fL RDW Coeff of Octavio 15.9 H (11.5-14.5) % Immature Gran # (Auto) 0.03 H (0.00-0.02) K/uL Lymph # (Auto) 0.92 L (1.2-3.4) K/uL Potassium (3.5-5.1) mmol/L Chloride (98-107) mmol/L Carbon Dioxide (21-32) mmol/L BUN (7-18) mg/dl Creatinine (0.6-1.4) mg/dl BUN/Creatinine Ratio (10-20) Glucose (70-99) mg/dl POC Glucose 171 H 135 H (70-99) AST (15-37) U/L ALT (12-78) U/L Albumin (3.4-5.0) gm/dl Globulin (2.5-4.0) gm/dl Albumin/Globulin Ratio (0.9-2) 10/02/18 10/02/18 Range/Units 09:18 11:15 RBC (4.7-6.1) M/uL Hgb (14.0-18.0) g/dL Hct (42-52) % RDW Std Deviation (36.4-46.3) fL RDW Coeff of Octavio (11.5-14.5) % Immature Gran # (Auto) (0.00-0.02) K/uL Lymph # (Auto) (1.2-3.4) K/uL Potassium 3.4 L (3.5-5.1) mmol/L Chloride 95 L (98-107) mmol/L Carbon Dioxide 36 H (21-32) mmol/L BUN 32 H (7-18) mg/dl Creatinine 9.17 H* D (0.6-1.4) mg/dl BUN/Creatinine Ratio 3.6 L (10-20) Glucose 137 H (70-99) mg/dl POC Glucose 114 H (70-99) AST 13 L (15-37) U/L ALT 10 L (12-78) U/L Albumin 3.0 L (3.4-5.0) gm/dl Globulin 4.1 H (2.5-4.0) gm/dl Albumin/Globulin Ratio 0.7 L (0.9-2) Medications Administered Current Inpatient Medications Acetaminophen (Tylenol) 650 mg PO Q4H PRN PRN Reason: Pain or Fever Stop: 10/30/18 23:05 Albuterol (Duoneb) 3 ml NEB QIDR [facility] Stop: 10/31/18 07:59 Last Admin: 10/02/18 15:28 Dose: Not Given Documented by: Amlodipine Besylate (Norvasc) 10 mg PO DAILY [facility] Stop: 10/31/18 08:59 Last Admin: 10/02/18 07:51 Dose: 10 mg Documented by: Aspirin (Ecotrin Ectab) [facility] Stop: 10/30/18 23:29 Last Admin: 10/02/18 07:48 Dose: 81 mg Documented by: Atorvastatin Calcium ([facility]itor) [facility] Stop: 10/31/18 20:59 Last Admin: 10/01/18 20:02 Dose: 80 mg Documented by: Clopidogrel Bisulfate (Plavix) 75 [facility] Stop: 10/31/18 08:59 Last Admin: 10/02/18 07:51 Dose: 75 mg Documented by: Diphenhydramine HCl (Benadryl Capsule) 25 mg PO BID PRN PRN Reason: Itching Stop: 10/31/18 08:35 Last Admin: 10/02/18 07:51 Dose: 25 mg Documented by: Furosemide (Lasix) 40 mg PO BID [facility] Stop: 10/30/18 23:14 Last Admin: 10/02/18 07:49 Dose: 40 mg Documented by: Heparin Sodium (Porcine) (Heparin Sodium (Porcine)) 5,000 units SQ Q8 [facility] Stop: 10/31/18 05:59 Last Admin: 10/02/18 13:01 Dose: Not Given Documented by: Insulin Aspart (Novolog Flexpen) 0 units SC [facility] Stop: 10/31/18 07:29 Last Admin: 10/02/18 11:59 Dose: 5 units Documented by: Insulin Glargine (Lantus) 50 units SQ QAM [facility]; Protocol Stop: 11/01/18 08:59 Last Admin: 10/02/18 09:20 Dose: 50 units Documented by: Lisinopril (Zestril) 40 mg PO QAM [facility] Stop: 10/31/18 08:59 Last Admin: 10/02/18 07:52 Dose: 40 mg Documented by: Metoclopramide HCl (Reglan) 5 mg PO ACHS [facility] Stop: 10/31/18 07:29 Last Admin: 10/02/18 18:15 Dose: Not Given Documented by: Metoprolol Tartrate (Lopressor) 50 mg PO BID [facility] Stop: 10/30/18 23:14 Last Admin: 10/02/18 07:56 Dose: 50 mg Documented by: Nitroglycerin (Nitrostat) 0.4 mg SL UD PRN PRN Reason: Chest Pain Stop: 10/30/18 23:05 Vitamin B Complex/Folic Acid (Nephrocaps) 1 cap PO QPM [facility] Stop: 10/31/18 20:59 Last Admin: 10/01/18 20:03 Dose: 1 cap Documented by: PG Care Time/CCT Total # of Minutes Spent Total Time Spent with Patient: Total time spent is greater than 50% in coordination of care (as documented) at patient's floor/unit and/or counseling patient: Resident Activity Tracking Resident Involvement: Resident Care Provided Care Provided: Adult Hospital Medicine (1) Diabetes Diabetes mellitus type: type 2
[2018-10-02 09:32] LABS: Basophils # (auto) 0.04 K/uL (0-0.2); Basophils % (auto) 0.5 %; Eosinophils # (auto) 0.19 K/uL (0-0.5); Eosinophils % (auto) 2.3 %; Hematocrit (blood only) 26.7 % (42-52); Hemoglobin 8.8 g/dL (14.0-18.0); Immature Granulocytes # (auto) 0.03 K/uL (0.00-0.02); Immature Granulocytes % (auto) 0.4 %; Lymphocytes # (auto) 0.92 K/uL (1.2-3.4); Lymphocytes % (auto) 11.4 %; Mean Corpuscular Volume 90.2 fL (80-100); Mean Platelet Volume 9.4 fL (7.4-10.4); Monocytes # (auto) 0.59 K/uL (0.11-0.59); Monocytes % (auto) 7.3 %; Neutrophils # (auto) 6.33 K/uL (1.4-6.5); Neutrophils % (auto) 78.1 %; Platelet Count 215 K/uL (130-400); RDW Coefficient of Variation 15.9 % (11.5-14.5); RDW Standard Deviation 52.6 fL (36.4-46.3); Red Blood Count 2.96 M/uL (4.7-6.1)
[2018-10-02] MEDS ORDERED: SODIUM CHLORIDE 0.9% 1000ML 1,000 ML IV PRN (09:57)
[2018-10-02] MEDS ORDERED: HEPARIN SOD (PORCINE) 1000 UNIT/ML 10 ML VIAL IV ONE (09:57)
[2018-10-02 10:19] LABS: Albumin Globulin Ratio 0.7 (0.9-2); BUN Creatinine Ratio 3.6 (10-20); Bilirubin,Total 0.5 mg/dl (0.2-1); Calcium 8.6 mg/dl (8.5-10.1); Creatinine Clr Calc Pharmacy 11.4 ml/min; Est GFR (African American) 6.9; Globulin 4.1 gm/dl (2.5-4.0); Potassium 3.4 mmol/L (3.5-5.1); Total Protein 7.1 gm/dl (6.4-8.2)
[2018-10-02] MEDS ORDERED: LIDOCAINE/PRILOCAINE 2.5% EA CRM EXT ONE (10:23)
[2018-10-02] MEDS ORDERED: EPOETIN ALFA 10,000 UNITS/ML VIAL IV ONE (10:25)
--- NOTE | 2018-10-02 11:05 | Nephrology Consultation ---
Date of Consultation October 02, 2018 Assessment & Plan (1) ESRD (end stage renal disease) on dialysis: -- Patient dialyzes MWF in [place], [place]. His primary Cena is Dr. Hendrickson. -- Patient reports EDW 103.5kg -- Will provide heparin free HD today and challenge EDW (2) Bilateral pleural effusion: -- Await thoracic surgery input. Patient may require thoracentesis or Pleur-x catheter -- Will challenge EDW on dialysis and repeat CXR in am (3) Pneumonia: -- Antibiotics as per primary service (4) Hypertension: -- Continue current antihypertensive regimen. BP may trend down following UF (5) Diabetes: (6) Anemia: -- Will provide YOLETTE w/ HD today History of Present Illness Reason for Consultation: ESRD on IHD Attending Physician: Arlyn Arriola MD History of Present Illness Mr. Walker is a 48 year old white male who was seen at the request of Dr. Arriola to provide inpatient HD and assist w/ medical management. Medical records in the EMR were reviewed today and are summarized as follows: Mr. Walker's medical history is significant for AODM, HTN, hyperlipidemia, ASCVD s/p stenting x 2, remote h/o marijuana use. He has been on IHD for the last 1.5 years and currently dialyzes MWF at [facility]. He is undergoing transplant evaluation at [facility]. His Cena is Dr. Hendrickson. This past weekend Mr. Walker was hospitalized at [facility] and treated for pneumonia. He was discharged on Sunday but became dyspneic during his HD treatment Sunday. He was sent to [facility] for evaluation and subsequently transferred to [facility] for ongoing care and inpatient HD. CXR reveals CMG, mild CHF and bilateral pleural effusions w/ bibasilar atalectasis. Thoracic surgery consultation has been requested for possible thoracentesis or Pleur-x catheter insertion. Allergies Allergy/AdvReac Type Severity Reaction Status Date / Time codeine AdvReac Intermediate DELIRIUM,ME Verified 07/09/18 15:49 AN Home Medications Home Medications Medication Instructions Recorded Confirmed Type Toujeo SoloStar U-300 Insulin 50 unit SUBCUT QAM 05/06/18 09/30/18 History aspirin 81 mg PO QAM 05/06/18 09/30/18 History atorvastatin [Lipitor] 80 mg PO HS 03/11/19 08/05/19 History clopidogrel 75 mg PO QAM 05/06/18 09/30/18 History furosemide [Lasix] 40 mg PO BID 05/06/18 09/30/18 History lisinopril 40 mg PO QAM 05/06/18 09/30/18 History pantoprazole 40 mg PO QAM 05/06/18 09/30/18 History Renal Caps 1 cap PO QPM 05/10/18 09/30/18 History metoprolol tartrate 50 mg PO BID 07/09/18 09/30/18 History amlodipine 10 mg PO DAILY 09/30/18 09/30/18 History cefuroxime axetil 250 mg PO BID 09/30/18 09/30/18 History metoclopramide HCl 5 mg PO ACHS 09/30/18 09/30/18 History Patient History Medical History Anemia (Acute) CHF (congestive heart failure) (Acute) CKD (chronic kidney disease) (Acute) started - dialysis mondays, wednesdays and fridays @ Replaced By [facility] - follows w/ Dr. Hendrickson Diabetes (Acute) IDDM HTN (hypertension) (Acute) Diverticular disease GERD (gastroesophageal reflux disease) Hyperlipidemia Presence of arteriovenous fistula for hemodialysis left forearm Surgical History History of foot surgery (Acute) left x 4 History of heart artery stent (Acute) X2 History of cardiac cath X 2 - 11/2017 - [facility] - SOB - 1 stent placed - follows w/ Dr. 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 Beliefs That Will Affect Care: None marital status: Life Partner Current Living Situation: Significant Other Other Information That Helps Us Care for You: No Feels Safe at Home: Yes Safety Concerns: Feels Safe At This Time Smoking Status: Former smoker Tobacco Type: cigars and smokeless tobacco ; Cigarettes Per Day: QUIT YEARS AGO ; Second Hand Exposure: Yes ; Tobacco Cessation Education Requested by Patient: No Hx Alcohol Use: No Hx Substance Use: No Review of Systems Constitutional: no fever, no chills and no weakness Eyes: no worsening vision and no problem reported Ear, Nose, Mouth, Throat: no problem reported Respiratory: + dyspnea on exertion; no cough Cardiovascular: no chest pain, no palpitations and no edema Gastrointestinal: no abdominal pain, no nausea, no vomiting and no diarrhea/loose stools Genitourinary: no dysuria, no urinary hesitancy and no hematuria Musculoskeletal: no back pain Integumentary: no rash Neurologic: no falls, no dizziness and no confusion Physical Exam Constitutional: + overweight Eyes: PERRL, conjunctivae normal, anicteric sclerae ENMT: external ear and nose normal, oropharynx normal Neck: trachea midline, no thyromegaly Respiratory: normal respiratory effort, lungs clear to auscultation Cardiovascular: Rate/Rhythm: regular rate and regular rhythm Heart Sounds: no murmur Extremities: + edema (trace pretibial) and + AV fistula (+ bruit) Gastrointestinal (Abdomen): normal bowel sounds, soft, nontender, no hepatosplenomegaly Musculoskeletal: no cyanosis or clubbing, extremities motor strength 5/5 Skin: no rashes, warm and dry Neurologic: awake; not confused Results & Data Vital Signs (Past 12 Hours) Vital Signs Temp Pulse Pulse Resp BP Pulse Ox 10/02/18 08:00 68 10/02/18 07:27 36.6 C 106 H 19 172/72 H 100 10/02/18 07:17 73 16 91 10/02/18 03:00 92 10/02/18 02:58 36.8 C 80 20 172/76 H 85 L 10/01/18 23:41 37.2 C 73 18 161/70 H 90 Laboratory Results Laboratory Tests 10/02/18 10/02/18 09:18 09:18 WBC 8.10 Hgb 8.8 L Hct 26.7 L Plt Count 215 Sodium 137 Potassium 3.4 L Chloride 95 L Carbon Dioxide 36 H BUN 32 H Creatinine 9.17 H* D Glucose 137 H Albumin 3.0 L Diagnostic Findings Chest CT 10/14: 1. Cardiomegaly with evidence of congestive failure and interstitial edema. 2. Layering pleural effusions with bibasilar consolidation. 3. Mildly enlarged mediastinal lymph nodes are nonspecific and likely reactive. PG Care Time/CCT Total # of Minutes Spent Total Time Spent with Patient: Total time spent is greater than 50% in coordination of care (as documented) at patient's floor/unit and/or counseling patient: (1) Diabetes Diabetes mellitus type: type 2
[2018-10-02] MEDS: HEPARIN SOD (PORCINE) 1000 UNIT/ML 10 ML VIAL IV SCH ×2 (15:40→16:40)
[2018-10-02] MEDS: NEPHROCAPS PO SCH (21:02)
[2018-10-02] MEDS: ATORVASTATIN 40 MG TAB PO SCH (21:02)
[2018-10-03] MEDS: HEPARIN SOD 5,000 UNIT/0.5 ML VIAL SQ SCH (05:21)
--- NOTE | 2018-10-03 06:17 | Surgery Progress Note ---
Date of Service October 02, 2018 Assessment & Plan (1) H/O pleural effusion: -plan on placing pleurex on 10/03/18 Subjective Pt. notes SOB with activity. He is comfortable at rest. Physical Exam Respiratory: no respiratory distress and no labored breathing BS are decreased at bases Results & Data Vital Signs (Past 12 Hours) Vital Signs Temp Pulse Pulse Pulse Resp BP BP 10/03/18 03:21 36.8 C 71 18 165/81 H 10/03/18 00:20 36.9 C 71 18 178/82 H 10/02/18 19:25 36.9 C 75 18 162/71 H 10/02/18 19:15 36.7 C 67 159/75 H 10/02/18 18:54 65 10/02/18 18:40 65 160/75 H 10/02/18 18:20 71 164/70 H Pulse Ox 10/03/18 03:21 90 10/03/18 00:20 71 L 10/02/18 19:25 92 10/02/18 19:15 10/02/18 18:54 10/02/18 18:40 10/02/18 18:20
[2018-10-03 06:53] LABS: Hematocrit (blood only) 24.8 % (42-52); Hemoglobin 8.2 g/dL (14.0-18.0); Mean Corpuscular Hgb Conc 33.1 g/dL (32-36); Mean Corpuscular Volume 88.6 fL (80-100); Mean Platelet Volume 9.5 fL (7.4-10.4); Platelet Count 216 K/uL (130-400); RDW Standard Deviation 51.9 fL (36.4-46.3); White Blood Count 8.22 K/uL (4.8-10.8)
[2018-10-03] MEDS: ALBUT/IPRATROP 3MG/0.5MG NEB 3 ML VIAL NEB SCH ×4 (07:11→19:54)
--- NOTE | 2018-10-03 07:20 | XRay Report ---
XR chest 1V portable CLINICAL HISTORY: CHF, pneumonia, pleural effusions COMPARISON STUDY: Chest radiograph September 30, 2018. Chest CT October 01, 2018. FINDINGS: Bilateral pleural effusions, left larger than right, are noted. Left basilar opacity is not ed. There is no pneumothorax. Interstitial thickening persists. Cardiomediastinal silhouette is stabl e. IMPRESSION: 1. Persistent interstitial thickening consistent with pulmonary edema. 2. Bilateral pleural effusions, left larger than right, with left basilar opacity which reflect atele ctasis or pneumonia. Electronically signed by: Manolo Shelton M.D. 10/03/2018 7:19 AM
[2018-10-03] MEDS: ASPIRIN 81 MG ECTAB PO SCH (07:42)
[2018-10-03] MEDS: FUROSEMIDE 40 MG TAB PO SCH ×2 (07:42→20:58)
[2018-10-03] MEDS: LISINOPRIL 40 MG TAB PO SCH (07:43)
[2018-10-03] MEDS: METOPROLOL TARTRATE 50 MG TAB PO SCH ×2 (07:44→20:58)
[2018-10-03] MEDS: AMLODIPINE BESYLATE 5 MG TAB PO SCH (07:44)
[2018-10-03 07:45] LABS: BUN Creatinine Ratio 2.8 (10-20); Calcium 8.7 mg/dl (8.5-10.1); Creatinine Clr Calc Pharmacy 16.9 ml/min; Est GFR (African American) 11.3; Est GFR (Non-African American) 9.7; Potassium 3.4 mmol/L (3.5-5.1)
[2018-10-03] MEDS: METOCLOPRAMIDE HCL 5 MG TABLET PO SCH ×4 (07:45→20:58)
[2018-10-03] MEDS: CLOPIDOGREL BISULFATE 75 MG TAB PO SCH (07:45)
--- NOTE | 2018-10-03 09:36 | Nephrology Progress Note ---
Date of Service October 03, 2018 Assessment & Plan (1) ESRD (end stage renal disease) on dialysis: -- Patient dialyzes MWF in [place], [place]. His primary [employer] is Dr. Hendrickson. -- Patient reports EDW 103.5kg -- Electrolyte balance is acceptable at this time -- Will provide heparin free HD tomorrow for continued UF (2) Bilateral pleural effusion: -- Patient was dialyzed yesterday for 3 L UF -- CXR film reviewed this am: persistent bilateral pleural effusions (3) Pneumonia: -- Resolved. Antibiotics have been stopped (4) Hypertension: -- Continue current antihypertensive regimen. BP may trend down following UF -- Consider stopping diuretic since patient has no recorded UO (5) Diabetes: (6) Anemia: -- Will provide YOLETTE w/ HD Subjective Mr. Walker was seen & examined in his hospital room this morning. He was dialyzed yesterday for 3 L UF without complication. He reports that his breathing is unchanged and he is scheduled for L Pleur-x catheter placement this afternoon Review of Systems Constitutional: no fever, no chills and no weakness Eyes: no worsening vision and no problem reported Ear, Nose, Mouth, Throat: no problem reported Respiratory: + dyspnea on exertion; no cough Cardiovascular: no chest pain, no palpitations and no edema Gastrointestinal: no abdominal pain, no nausea, no vomiting and no diarrhea/loose stools Genitourinary: no dysuria, no urinary hesitancy and no hematuria Musculoskeletal: no back pain Integumentary: no rash Neurologic: no falls, no dizziness and no confusion Physical Exam Constitutional: + overweight Eyes: PERRL, conjunctivae normal, anicteric sclerae ENMT: external ear and nose normal, oropharynx normal Neck: trachea midline, no thyromegaly Respiratory: normal respiratory effort, lungs clear to auscultation Cardiovascular: Rate/Rhythm: regular rate and regular rhythm Heart Sounds: no murmur Extremities: + edema (trace pretibial) and + AV fistula (+ bruit) Gastrointestinal (Abdomen): normal bowel sounds, soft, nontender, no hepa tosplenomegaly Musculoskeletal: no cyanosis or clubbing, extremities motor strength 5/5 Skin: no rashes, warm and dry Neurologic: awake; not confused Results & Data Vital Signs (Past 12 Hours) Vital Signs Temp Pulse Pulse Resp BP Pulse Ox 10/03/18 07:15 36.7 C 62 20 188/84 H 96 10/03/18 07:13 62 14 96 10/03/18 03:21 36.8 C 71 18 165/81 H 90 10/03/18 00:20 36.9 C 71 18 178/82 H 71 L Laboratory Results Laboratory Tests 10/03/18 10/03/18 06:22 06:22 WBC 8.22 Hgb 8.2 L Hct 24.8 L Plt Count 216 Sodium 139 Potassium 3.4 L Chloride 103 Carbon Dioxide 29 BUN 17 Creatinine 6.14 H* D Glucose 70 PG Care Time/CCT Total # of Minutes Spent Total Time Spent with Patient: Total time spent is greater than 50% in coordination of care (as documented) at patient's floor/unit and/or counseling patient: (1) Diabetes Diabetes mellitus type: type 2
[2018-10-03] MEDS: INSULIN ASPART 100 UNITS/ML 3 ML PEN SC SCH ×4 (09:44→20:57)
--- NOTE | 2018-10-03 13:42 | Family Medicine Progress Note ---
Date of Service October 03, 2018 Assessment & Plan (1) Hypoxia: 48-year-old male with a history of HTN, HLD, Type 2 DM, CHF, bilateral pleural effusions, ESRD on dialysis, CAD s/p stents presents as a transfer from [facility] with hypoxia. Acute hypoxic respiratory distress with Bilateral Pleural Effusions Was diagnosed with pneumonia over the weekend at [place] -Awaiting records from [place] - Never received. -Culture preliminaries showed now growth at 48 hours. -D/C Ceftriaxone and Doxycycline due to continued negative white count and afebrile. -Chest X-ray in AM to monitor if Dialysis from today effected his pleural effusions. -X-ray unchanged. DuoNeb treatments PRN wheezing -Currently 94% on 2L, patient does not use O2 at home. Recent blood cultures, VBG, troponin, EKG, chest x-ray, chest CT showed: -Chest CT w/o - Layering pleural effusions with bibasilar consolidation. -Chest X-ray - Bibasilar pleural effusion -EKG - negative -Troponin - negative. -Blood cultures - Negative Preliminary -Thoracic Consult placed -Nursing spoke with PA for Dr. Wall -Plan for [id number] later this afternoon - drained 1500mL today. -Echocardiogram ordered to R/O HF as cause for recurrent Pleural Effusions -EF 60-65% -Unchanged from Echo from 2017. End-stage renal disease Patient had dialysis yesterday and will plan on having tomorrow. -Nephro consult placed. -Consider stopping diuretic since no UO noted. Patient scheduled is Sunday, Sunday, Sunday -CBC and BMP ordered for AM Hypertension Continue home amlodipine, lasix, lisinopril, metoprolol -Reinforced to patient about how a sleep study could be beneficial for him in the outpatient setting -Patient has had a hx of resistant hypertension and has not been evaluated for Sleep Apnea. Hyperlipidemia -Continue home atorvastatin CAD x 2 stents -Continue home aspirin and clopidogrel Type 2 diabetes Continue Lantus and sliding scale insulin. -Patient states that he uses his Toujeo at home on a "sliding scale" per his own design. -Discussed with patient how poor diabetes management may be a contributing factor of his hx of vomiting. Chronic Itching -Continue home Diphenhydramine 25mg BID PRN itching. FEN/GI - No fluids, DM2 diet Code - Full DVT - Heparin (2) H/O pleural effusion: (3) Hypertension: (4) Diabetes: (5) Chronic kidney disease: (6) CHF (congestive heart failure): (7) Anemia: (8) FIDE (acute kidney injury): (9) Hyperlipidemia: (10) Itch of skin: Supervising Physician Co-Signing Physician Notes I personally examined the patient and verified all mata points of history and exam, discussed case, and agree with decision making with Dr Brown. Feeling okay. Seen prior to thoracentesis. Case later discussed with Dr. Wall. Vitals noted, in general he is awake and alert pleasant no distress. HEENT normocephalic atraumatic mucous members moist. Breathing unlabored no accessory muscle use good effort. Skin shows no rashes no pallor or icterus. Pleural effusionsfor Pleurx later today. Further treatment will obviously be based on etiology of the effusions and response. DVT prophylaxisheparin subcu (on hold for procedure) Subjective Patient seen this AM while seated in his chair. Patient states that his breathing feels about the same as it has and that he is hoping draining his lungs will help today. He also states that he has thought about a sleep study and plans on bringing it to the attention of his PCP when he gets out. He has no other complaints at this time. Review of Systems Constitutional: no fever, no chills and no fatigue Eyes: no discharge and no eye pain Ear, Nose, Mouth, Throat: no ear pain, no tinnitus and no dizziness Respiratory: + cough, + dyspnea (noted earlier in morning, currently well on 1L O2), + dyspnea on exertion and + wheezing (noted earlier in the morning, not current.); no pain on inspiration Cardiovascular: no chest pain, no chest pain at rest and no radiating jaw, neck or arm pain Gastrointestinal: + vomiting (notes a hx of occasional vomiting, not current); no abdominal pain, no constipation and no diarrhea/loose stools Genitourinary: no dysuria and no hematuria Integumentary: + urticaria Physical Exam Constitutional: WD/WN, vitals as above Eyes: PERRL, conjunctivae normal, anicteric sclerae ENMT: external ear and nose normal, oropharynx normal Neck: trachea midline, no thyromegaly Respiratory: normal respiratory effort (on 1L of O2) and + cough; no respiratory distress, no labored breathing and does not use accessory muscles Auscultation: + diminished lung sounds (In bilateral lower lung jacinto, patient seated upright for PE), + crackles and + wheezes (Diffuse bilateral); no rales Cardiovascular: RRR, no murmur, no edema Gastrointestinal (Abdomen): normal bowel sounds, soft, nontender, no hepatosplenomegaly Musculoskeletal: Head/Neck/Chest: normocephalic, head atraumatic and neck supple Skin: no rashes, warm and dry Neurologic: moves all extremities Speech / Cognition: normal speech Psychiatric: A+Ox3, euthymic affect Results & Data Vital Signs (Past 12 Hours) Vital Signs Temp Pulse Pulse Pulse Resp BP Pulse Ox 10/03/18 11:19 67 20 180/87 H 100 10/03/18 11:15 90 16 96 10/03/18 08:00 78 10/03/18 07:15 36.7 C 62 20 188/84 H 96 10/03/18 07:13 62 14 96 10/03/18 03:21 36.8 C 71 18 165/81 H 90 Laboratory Results Abnormal lab results 10/02/18 10/03/18 10/03/18 Range/Units 20:06 06:22 06:22 RBC 2.80 L (4.7-6.1) M/uL Hgb 8.2 L (14.0-18.0) g/dL Hct 24.8 L (42-52) % RDW Std Deviation 51.9 H (36.4-46.3) fL RDW Coeff of Octavio 16.0 H (11.5-14.5) % Potassium 3.4 L (3.5-5.1) mmol/L Creatinine 6.14 H* D (0.6-1.4) mg/dl BUN/Creatinine Ratio 2.8 L (10-20) POC Glucose 100 H (70-99) 10/03/18 10/03/18 Range/Units 11:17 16:12 RBC (4.7-6.1) M/uL Hgb (14.0-18.0) g/dL Hct (42-52) % RDW Std Deviation (36.4-46.3) fL RDW Coeff of Octavio (11.5-14.5) % Potassium (3.5-5.1) mmol/L Creatinine (0.6-1.4) mg/dl BUN/Creatinine Ratio (10-20) POC Glucose 134 H 120 H (70-99) Medications Administered Current Inpatient Medications Acetaminophen (Tylenol) 650 mg PO Q4H PRN PRN Reason: Pain or Fever Stop: 10/30/18 23:05 Last Admin: 10/03/18 16:22 Dose: 650 mg Documented by: Albuterol (Duoneb) 3 ml NEB QIDR [facility] Stop: 10/31/18 07:59 Last Admin: 10/03/18 16:12 Dose: Not Given Documented by: Amlodipine Besylate (Norvasc) 10 mg PO DAILY [facility] Stop: 10/31/18 08:59 Last Admin: 10/03/18 07:44 Dose: 10 mg Documented by: Aspirin ([facility]cotrin Ectab) [facility] Stop: 10/30/18 23:29 Last Admin: 10/03/18 07:42 Dose: 81 mg Documented by: Atorvastatin Calcium (Lipitor) 80 mg PO HS [facility] Stop: 10/31/18 20:59 Last Admin: 10/02/18 21:02 Dose: 80 mg Documented by: Clopidogrel Bisulfate (Plavix) 75 mg PO [facility] Stop: 10/31/18 08:59 Last Admin: 10/03/18 07:45 Dose: 75 mg Documented by: Diphenhydramine HCl (Benadryl Capsule) 25 mg PO BID PRN PRN Reason: Itching Stop: 10/31/18 08:35 Last Admin: 10/03/18 07:43 Dose: 25 mg Documented by: Epoetin Олег (Procrit) 10,000 units IV ONE ONE Stop: 10/04/18 07:01 Furosemide (Lasix) 40 mg PO BID [facility] Stop: 10/30/18 23:14 Last Admin: 10/03/18 07:42 Dose: 40 mg Documented by: Heparin Sodium (Porcine) (Heparin Sodium (Porcine)) 5,000 units SQ Q8 [facility] Stop: 10/31/18 05:59 Last Admin: 10/03/18 05:21 Dose: 5,000 units Documented by: Sodium Chloride (Nss 1000ml) 1,000 mls @ 0 mls/hr IV .Q0M PRN PRN Reason: For Hemodialysis Use ONLY Stop: 10/04/18 12:59 Insulin Aspart (Novolog Flexpen) 0 units SC [facility] Stop: 10/31/18 07:29 Last Admin: 10/03/18 17:54 Dose: 5 units Documented by: Insulin Glargine (Lantus) 50 units SQ QAM [facility]; Protocol Stop: 11/01/18 08:59 Last Admin: 10/02/18 09:20 Dose: 50 units Documented by: Lisinopril (Zestril) 40 mg PO QAM [facility] Stop: 10/31/18 08:59 Last Admin: 10/03/18 07:43 Dose: 40 mg Documented by: Metoclopramide HCl (Reglan) [address] [facility] Stop: 10/31/18 07:29 Last Admin: 10/03/18 16:22 Dose: 5 mg Documented by: Metoprolol Tartrate (Lopressor) 50 mg PO BID [facility] Stop: 10/30/18 23:14 Last Admin: 10/03/18 07:44 Dose: 50 mg Documented by: Miscellaneous (No Heparin In Dialysis) 1 ea N/A ONE ONE Stop: 10/04/18 07:01 Nitroglycerin (Nitrostat) 0.4 mg SL UD PRN PRN Reason: Chest Pain Stop: 10/30/18 23:05 Vitamin B Complex/Folic Acid (Nephrocaps) 1 cap PO QPM [facility] Stop: 10/31/18 20:59 Last Admin: 10/02/18 21:02 Dose: 1 cap Documented by: PG Care Time/CCT Total # of Minutes Spent Total Time Spent with Patient: Total time spent is greater than 50% in coordination of care (as documented) at patient's floor/unit and/or counseling patient: Resident Activity Tracking Resident Involvement: Resident Care Provided Care Provided: Adult Hospital Medicine (1) Diabetes Diabetes mellitus type: type 2
--- NOTE | 2018-10-03 15:32 | XRay Report ---
XR chest 1V portable CLINICAL HISTORY: 48 years-old Male presenting with Pleurx. TECHNIQUE: Portable upright AP view of the chest was obtained. COMPARISON: 10/03/[address] from 10/01/2018. FINDINGS: A left pleural drain is now in place positioned at the paramediastinal left midlung. Atherosclerosis of the aortic arch. Cardiac silhouette top normal in size. Slight interval decrease in size of the le ft pleural effusion. Slight improved aeration of the left lung base with decreased left retrocardiac opacity. Mild pulmonary vascular prominence persists. No gross evidence of a pneumothorax. Degenerati ve changes of the thoracic spine. IMPRESSION: 1. Interval placement of a left pleural drain with decreased left pleural effusion. No pneumothorax. 2. Improved aeration of the left lung base. Electronically signed by: Ryan Quigley M.D. 10/03/2018 3:31 PM
[2018-10-03 16:02] LABS: Total Protein Pleural Fluid 2.8 g/dl
[2018-10-03] MEDS: ACETAMINOPHEN 325 MG TAB PO PRN ×2 (16:22→20:58)
[2018-10-03 16:27] LABS: Appearance Pleural Fluid HAZY; Color Pleural Fluid PALE YELLOW; Mononuclear WBC Pleural 82.1 %; Polynuclear WBC Pleural 17.9 %; RBC Pleural Fluid (A) < 3000 /uL; Source Pleural Fluid LEFT LUNG; WBC Pleural Fluid (A) 151 /uL
[2018-10-03] MEDS: NEPHROCAPS PO SCH (20:58)
[2018-10-03] MEDS: ATORVASTATIN 40 MG TAB PO SCH (20:58)
--- NOTE | 2018-10-04 01:00 | Operative Report ---
DATE OF OPERATION: 10/03/2018 PREOPERATIVE DIAGNOSIS: Persistent bilateral pleural effusions, left much greater than right. POSTOPERATIVE DIAGNOSIS: Persistent bilateral pleural effusions, left much greater than right. PROCEDURE: Insertion of left PleurX catheter. SURGEON: Garcia Wall MD EVENT DECORATOR: MARK Samaniego ANESTHESIA: Local. SPECIFICS OF PROCEDURE: With the patient in the right lateral decubitus position, his left chest was evaluated with an ultrasound. A spot was picked. This was marked in indelible ink. He was then prepped and draped in usual sterile fashion. After appropriate timeout had been called, a 25-gauge needle and 1% Xylocaine was used to anesthetize skin and subcutaneous tissues. Large bore needle was used to anesthetize the deeper tissues and we got free flowing fluid back. Guidewire was inserted through the needle and the needle removed. The insertion site was enlarged to about 1 cm. A 12 cm inferior and anterior to this, another skin wheal was raised with 25-gauge needle and 1% Xylocaine and a 1 cm incision made. A long needle was used to anesthetize subcutaneous tissues between the two. Tunnel was attached to PleurX catheter and dragged from the anterior to posterior incision. A tunneler was detached from the PleurX catheter. Introducer sheath with inner cannula was slid over the guidewire into the pleural cavity, inner cannula guidewire removed and the PleurX catheter was inserted through the peel-away sheath which was removed. Two separate 3-0 silk sutures were used to close the posterior incision. A 2-0 silk suture was used to anchor the catheter to the patient's skin anteriorly. A 1500 mL was drained until the patient started having some reexpansion coughing. This was then sterilely dressed with antimicrobials and x-ray showed no pneumothorax and good expansion of his lung. He tolerated it well. I attest to the content of the Intraoperative Record and any orders documented therein. Any exception s are noted below.
[2018-10-04] MEDS: HEPARIN SOD 5,000 UNIT/0.5 ML VIAL SQ SCH ×2 (06:03→14:00)
[2018-10-04 06:32] LABS: Hematocrit (blood only) 25.8 % (42-52); Hemoglobin 8.7 g/dL (14.0-18.0); Mean Corpuscular Hgb Conc 33.7 g/dL (32-36); Mean Corpuscular Volume 87.8 fL (80-100); Mean Platelet Volume 8.9 fL (7.4-10.4); Platelet Count 248 K/uL (130-400); RDW Coefficient of Variation 16.1 % (11.5-14.5); RDW Standard Deviation 51.6 fL (36.4-46.3); Red Blood Count 2.94 M/uL (4.7-6.1); White Blood Count 10.72 K/uL (4.8-10.8)
[2018-10-04] MEDS ORDERED: SODIUM CHLORIDE 0.9% 1000ML 1,000 ML IV PRN (07:00)
[2018-10-04] MEDS ORDERED: EPOETIN ALFA 10,000 UNITS/ML VIAL IV ONE (07:00)
--- NOTE | 2018-10-04 07:15 | XRay Report ---
XR chest 1V portable HISTORY: 48 years-old Male effusion follow-up study in a patient with left pleural effusion COMPARISON: Chest radiograph 10/03/2018 TECHNIQUE: Portable AP view of the chest FINDINGS: Cardiac silhouette is enlarged, unchanged. Stable positioning of the left-sided chest tube, distal ti p projected about the left hilum. Small left pleural effusion with left greater than right bibasilar opacities redemonstrated. Pulmonary vascular congestion without pneumothorax. Bones appear grossly in tact. IMPRESSION: 1. Stable positioning of the left-sided chest tube. 2. Unchanged appearance of the small left pleural effusion with left greater than right bibasilar opa cities. 3. Cardiomegaly with pulmonary vascular congestion. The above report was generated using voice recognition software. It may contain grammatical, syntax o r spelling errors. Electronically signed by: Chris Chilel M.D. 10/04/2018 7:14 AM
[2018-10-04] MEDS: ALBUT/IPRATROP 3MG/0.5MG NEB 3 ML VIAL NEB SCH (07:20)
[2018-10-04 07:25] LABS: BUN Creatinine Ratio 3.7 (10-20); Calcium 8.7 mg/dl (8.5-10.1); Creatinine Clr Calc Pharmacy 12.5 ml/min; Est GFR (African American) 7.8; Est GFR (Non-African American) 6.8; Potassium 3.7 mmol/L (3.5-5.1)
--- NOTE | 2018-10-04 08:02 | Family Medicine Progress Note ---
Date of Service October 04, 2018 Assessment & Plan (1) Hypoxia: 48-year-old male with a history of HTN, HLD, Type 2 DM, CHF, bilateral pleural effusions, ESRD on dialysis, CAD s/p stents presents as a transfer from [facility] with hypoxia. Acute hypoxic respiratory distress with Bilateral Pleural Effusions Was diagnosed with pneumonia over the weekend at [place] -Awaiting records from [place] - Never received. -Culture preliminaries showed now growth at 48 hours. -D/C Ceftriaxone and Doxycycline due to continued negative white count and afebrile. -Chest X-ray in AM to monitor if Dialysis from today effected his pleural effusions. -X-ray unchanged. Recent blood cultures, VBG, troponin, EKG, chest x-ray, chest CT showed: -Chest CT w/o - Layering pleural effusions with bibasilar consolidation. -Chest X-ray - Bibasilar pleural effusion -EKG - negative -Troponin - negative. -Blood cultures - Negative Preliminary DuoNeb treatments PRN wheezing -Currently 94% on 2L, patient does not use O2 at home. ->Desaturates to low 90s without O2, will be testing his ability to oxygenate well ambulating later today -Thoracic Consult placed -Pleurx catheter placed by Dr. Zaman post minimal fluid drainage this morning -Echocardiogram ordered to R/O HF as cause for recurrent Pleural Effusions -EF 60-65% -Unchanged from Echo from 2017. End-stage renal disease - Patient dialyzes MWF in [place], [place]. His primary Sliver Former is Dr. Hendrickson -Nephro consult placed. Patient status post heparin free hemodialysis today -Previous estimated dry weight was 103.5 kg, during this hospitalization has been reduced to 101.5 kg, will continue to challenge that estimated dry weight There is no clear indication for Lasix or lisinopril given that the patient is anuric will DC both of them -Continue to trend CBC and BMP replete electrolytes as indicated Hypertension Continue home amlodipine, metoprolol Hyperlipidemia -Continue home atorvastatin CAD x 2 stents -Continue home aspirin and clopidogrel Type 2 diabetes Continue Lantus and sliding scale insulin. -Patient states that he uses his Toujeo at home on a "sliding scale" per his own design. -Discussed with patient how poor diabetes management may be a contributing factor of his hx of vomiting. - Patient not responsive diabetes counseling and education, feels currently that his blood sugars are too tightly controlled. Chronic Itching -Continue home Diphenhydramine 25mg BID PRN itching. FEN/GI - No fluids, DM2 diet Code - Full DVT - Heparin Dispo - Pending clinical improvement, Potentially later today or most likely tomorrow Subjective Patient laying in bed this morning in no acute distress. Reports no significant interval history overnight, reports feeling significantly better throughout his hospitalization. Patient reports he is anuric, stooling, sleeping, tolerating his diet. No acute concerns at present, all questions answered. Patient could potentially be for discharge today however likely tomorrowAs he is still requiring oxygen Physical Exam Physical Exam: Constitutional: WD/WN, vitals as above Eyes: PERRL, conjunctivae normal, anicteric sclerae ENMT: external ear and nose normal, oropharynx normal Neck: trachea midline, no thyromegaly Respiratory: nClear to auscultation bilaterally, no increased air movement, still requiring O2 with desaturations to the mid 90s Cardiovascular: RRR, no murmur, no edema Gastrointestinal (Abdomen): normal bowel sounds, soft, nontender, no hepatosplenomegaly Musculoskeletal: Head/Neck/Chest: normocephalic, head atraumatic and neck supple Skin: no rashes, warm and dry Neurologic: moves all extremities Speech / Cognition: normal speech Psychiatric: A+Ox3, euthymic affect Results & Data Vital Signs (Past 12 Hours) Vital Signs Temp Pulse Pulse Resp BP Pulse Ox 10/04/18 07:49 37.0 C 66 20 168/86 H 97 10/04/18 03:58 37.0 C 68 16 165/84 H 96 10/03/18 23:58 36.9 C 67 16 168/76 H 92 Laboratory Results 10/04/18 10/04/18 10/04/18 Range/Units 07:19 06:21 06:21 WBC 10.72 (4.8-10.8) K/uL RBC 2.94 L (4.7-6.1) M/uL Hgb 8.7 L (14.0-18.0) g/dL Hct 25.8 L (42-52) % MCV 87.8 (80-100) fL MCH 29.6 (25-34) pg MCHC 33.7 (32-36) g/dL RDW Std Deviation 51.6 H (36.4-46.3) fL RDW Coeff of Octavio 16.1 H (11.5-14.5) % Plt Count 248 (130-400) K/uL MPV 8.9 (7.4-10.4) fL Sodium 134 L (136-145) mmol/L Potassium 3.7 (3.5-5.1) mmol/L Chloride 98 (98-107) mmol/L Carbon Dioxide 28 (21-32) mmol/L Anion Gap 8.0 (3-11) BUN 31 H D (7-18) mg/dl Creatinine 8.30 H* D (0.6-1.4) mg/dl Est Cr Clr Drug Dosing 12.5 ml/min Est GFR ( Amer) 7.8 Est GFR (Non-Af Amer) 6.8 BUN/Creatinine Ratio 3.7 L (10-20) Glucose 98 (70-99) mg/dl POC Glucose 108 H (70-99) Calcium 8.7 (8.5-10.1) mg/dl Pleural Fluid Source Pleural Color Pleural Appearance Pleural WBC /uL Pleural RBC /uL Pleural Polynuclear % % Pleural Mononuclear % % Pleural Total Protein g/dl Pleural LDH U/L Pleural Glucose mg/dl Pleural Amylase U/L Pleural Cholesterol 10/03/18 10/03/18 10/03/18 Range/Units 20:43 16:12 15:15 WBC (4.8-10.8) K/uL RBC (4.7-6.1) M/uL Hgb (14.0-18.0) g/dL Hct (42-52) % MCV (80-100) fL MCH (25-34) pg MCHC (32-36) g/dL RDW Std Deviation (36.4-46.3) fL RDW Coeff of Octavio (11.5-14.5) % Plt Count (130-400) K/uL MPV (7.4-10.4) fL Sodium (136-145) mmol/L Potassium (3.5-5.1) mmol/L Chloride (98-107) mmol/L Carbon Dioxide (21-32) mmol/L Anion Gap (3-11) BUN (7-18) mg/dl Creatinine (0.6-1.4) mg/dl Est Cr Clr Drug Dosing ml/min Est GFR ( Amer) Est GFR (Non-Af Amer) BUN/Creatinine Ratio (10-20) Glucose (70-99) mg/dl POC Glucose 114 H 120 H (70-99) Calcium (8.5-10.1) mg/dl Pleural Fluid Source Pleural Color Pleural Appearance Pleural WBC /uL Pleural RBC /uL Pleural Polynuclear % % Pleural Mononuclear % % Pleural Total Protein g/dl Pleural LDH U/L Pleural Glucose mg/dl Pleural Amylase U/L Pleural Cholesterol Pending 10/03/18 10/03/18 10/03/18 Range/Units 15:15 15:15 11:17 WBC (4.8-10.8) K/uL RBC (4.7-6.1) M/uL Hgb (14.0-18.0) g/dL Hct (42-52) % MCV (80-100) fL MCH (25-34) pg MCHC (32-36) g/dL RDW Std Deviation (36.4-46.3) fL RDW Coeff of Octavio (11.5-14.5) % Plt Count (130-400) K/uL MPV (7.4-10.4) fL Sodium (136-145) mmol/L Potassium (3.5-5.1) mmol/L Chloride (98-107) mmol/L Carbon Dioxide (21-32) mmol/L Anion Gap (3-11) BUN (7-18) mg/dl Creatinine (0.6-1.4) mg/dl Est Cr Clr Drug Dosing ml/min Est GFR ( Amer) Est GFR (Non-Af Amer) BUN/Creatinine Ratio (10-20) Glucose (70-99) mg/dl POC Glucose 134 H (70-99) Calcium (8.5-10.1) mg/dl Pleural Fluid Source LEFT LUNG Pleural Color PALE YELLOW Pleural Appearance HAZY Pleural WBC 151 /uL Pleural RBC < 3000 /uL Pleural Polynuclear % 17.9 % Pleural Mononuclear % 82.1 % Pleural Total Protein 2.8 g/dl Pleural LDH 134 U/L Pleural Glucose 107 mg/dl Pleural Amylase 21 U/L Pleural Cholesterol Medications Administered Current Inpatient Medications Acetaminophen (Tylenol) 650 mg PO Q4H PRN PRN Reason: Pain or Fever Stop: 10/30/18 23:05 Last Admin: 10/03/18 20:58 Dose: 650 mg Documented by: Albuterol (Duoneb) 3 ml NEB QIDR [facility] Stop: 10/31/18 07:59 Last Admin: 10/04/18 07:20 Dose: Not Given Documented by: Amlodipine Besylate (Norvasc) 10 mg PO DAILY [facility] Stop: 10/31/18 08:59 Last Admin: 10/03/18 07:44 Dose: 10 mg Documented by: Aspirin (Ecotrin Ectab) 81 mg PO QAM [facility] Stop: 10/30/18 23:29 Last Admin: 10/03/18 07:42 Dose: 81 mg Documented by: Atorvastatin Calcium (Lipitor) 80 mg PO HS [facility] Stop: 10/31/18 20:59 Last Admin: 10/03/18 20:58 Dose: 80 mg Documented by: Clopidog[facility] ([facility]) [facility] [place]: 10/31/18 08:59 Last Admin: 10/03/18 07:45 Dose: 75 mg Documented by: Diphenhydramine HCl (Benadryl Capsule) 25 mg PO BID PRN PRN Reason: Itching Stop: 10/31/18 08:35 Last Admin: 10/03/18 21:01 Dose: 25 mg Documented by: Furosemide (Lasix) 40 mg PO BID [facility] Stop: 10/30/18 23:14 Last Admin: 10/03/18 20:58 Dose: 40 mg Documented by: Heparin Sodium (Porcine) (Heparin Sodium (Porcine)) 5,000 units SQ Q8 [facility] Stop: 10/31/18 05:59 Last Admin: 10/04/18 06:03 Dose: 5,000 units Documented by: Sodium Chloride (Nss 1000ml) 1,000 mls @ 0 mls/hr IV .Q0M PRN PRN Reason: For Hemodialysis Use ONLY Stop: 10/04/18 12:59 Insulin Aspart (Novolog Flexpen) 0 units SC [facility] Stop: 10/31/18 07:29 Last Admin: 10/03/18 20:57 Dose: Not Given Documented by: Insulin Glargine (Lantus) 50 units SQ QAM [facility]; Protocol Stop: 11/01/18 08:59 Last Admin: 08/07/19 09:20 Dose: 50 units Documented by: Lisinopril (Zestril) 40 mg PO QAM [facility] Stop: 10/31/18 08:59 Last Admin: 10/03/18 07:43 Dose: 40 mg Documented by: Metoclopramide HCl (Reglan) 5 mg PO ACHS [facility] Stop: 10/31/18 07:29 Last Admin: 10/03/18 20:58 Dose: 5 mg Documented by: Metoprolol Tartrate (Lopressor) 50 mg PO BID [facility] Stop: 10/30/18 23:14 Last Admin: 10/03/18 20:58 Dose: 50 mg Documented by: Nitroglycerin (Nitrostat) 0.4 mg SL UD PRN PRN Reason: Chest Pain Stop: 10/30/18 23:05 Vitamin B Complex/Folic Acid (Nephrocaps) 1 cap PO QPM [facility] Stop: 10/31/18 20:59 Last Admin: 10/03/18 20:58 Dose: 1 cap Documented by: PG Care Time/CCT Total # of Minutes Spent Total Time Spent with Patient: Total time spent is greater than 50% in coordination of care (as documented) at patient's floor/unit and/or counseling patient: Resident Activity Tracking Resident Involvement: Resident Care Provided Care Provided: Adult Hospital Medicine
[2018-10-04] MEDS: METOCLOPRAMIDE HCL 5 MG TABLET PO SCH ×3 (08:10→17:45)
[2018-10-04] MEDS: CLOPIDOGREL BISULFATE 75 MG TAB PO SCH (08:10)
[2018-10-04] MEDS: FUROSEMIDE 40 MG TAB PO SCH (08:11)
[2018-10-04] MEDS: INSULIN GLARGINE 100 UNIT/ML VIAL SQ SCH (08:12)
[2018-10-04] MEDS: ASPIRIN 81 MG ECTAB PO SCH (08:12)
[2018-10-04] MEDS: INSULIN ASPART 100 UNITS/ML 3 ML PEN SC SCH ×3 (08:14→17:47)
[2018-10-04] MEDS ORDERED: LIDOCAINE/PRILOCAINE 2.5% EA CRM EXT PRN (08:25)
[2018-10-04] MEDS ORDERED: AZITHROMYCIN 250 MG/6.25 ML UDP PO SCH (09:00)
[2018-10-04] MEDS: LISINOPRIL 40 MG TAB PO SCH (09:00)
[2018-10-04] MEDS: METOPROLOL TARTRATE 50 MG TAB PO SCH (09:00)
[2018-10-04] MEDS: AMLODIPINE BESYLATE 5 MG TAB PO SCH (09:00)
--- NOTE | 2018-10-04 10:13 | Nephrology Progress Note ---
Date of Service October 04, 2018 Assessment & Plan (1) ESRD (end stage renal disease) on dialysis: -- Patient dialyzes MWF in [place], [place]. His primary Director Phone is Dr. Hendrickson. -- Patient reports EDW 103.5kg. This has been reduced to 101.5kg this hospitalization due to CHF and small bilateral pleural effusions -- Will provide heparin free HD today and continue to challenge EDW (2) Bilateral pleural effusion: -- Patient was dialyzed yesterday for 3 L UF -- CXR film 10/03/18: persistent bilateral pleural effusions. Pleur-x catheter in place. No pneumothorax (3) Pneumonia: -- Resolved. Antibiotics have been stopped (4) Hypertension: -- Continue current antihypertensive regimen. BP may trend down following UF -- Consider stopping diuretic since patient has no recorded UO (5) Diabetes: (6) Anemia: -- Will provide YOLETTE w/ HD Subjective Mr. Walker was seen & examined in his hospital room this morning. He underwent L Pleur-x catheter insertion yesterday without complication. He reports that a small volume of fluid was drained this morning. He voices no new medical concerns Review of Systems Constitutional: no fever, no chills and no weakness Eyes: no worsening vision and no problem reported Ear, Nose, Mouth, Throat: no problem reported Respiratory: + dyspnea on exertion; no cough Cardiovascular: no chest pain, no palpitations and no edema Gastrointestinal: no abdominal pain, no nausea, no vomiting and no diarrhea/loose stools Genitourinary: no dysuria, no urinary hesitancy and no hematuria Musculoskeletal: no back pain Integumentary: no rash Neurologic: no falls, no dizziness and no confusion Physical Exam Constitutional: + overweight Eyes: PERRL, conjunctivae normal, anicteric sclerae ENMT: external ear and nose normal, oropharynx normal Neck: trachea midline, no thyromegaly Respiratory: normal respiratory effort, lungs clear to auscultation Cardiovascular: Rate/Rhythm: regular rate and regular rhythm Heart Sounds: no murmur Extremities: + AV fistula (+ bruit); no edema (trace pretibial) Gastrointestinal (Abdomen): normal bowel sounds, soft, nontender, no hepatosplenomegaly Musculoskeletal: no cyanosis or clubbing, extremities motor strength 5/5 Skin: no rashes, warm and dry Neurologic: awake; not confused Results & Data Vital Signs (Past 12 Hours) Vital Signs Temp Pulse Pulse Resp BP Pulse Ox 10/04/18 07:49 37.0 C 66 20 168/86 H 97 10/04/18 03:58 37.0 C 68 16 165/84 H 96 10/03/18 23:58 36.9 C 67 16 168/76 H 92 Laboratory Results Laboratory Tests 10/04/18 10/04/18 06:21 06:21 WBC 10.72 Hgb 8.7 L Hct 25.8 L Plt Count 248 Sodium 134 L Potassium 3.7 Chloride 98 Carbon Dioxide 28 BUN 31 H D Creatinine 8.30 H* D Glucose 98 Diagnostic Findings CXR 10/03/18: Cardiac silhouette is enlarged, unchanged. Stable positioning of the left-sided chest tube, distal tip projected about the left hilum. Small left pleural effusion with left greater than right bibasilar opacities redemonstrated. Pulmonary vascular congestion without pneumothorax. Bones appear grossly intact. PG Care Time/CCT Total # of Minutes Spent Total Time Spent with Patient: Total time spent is greater than 50% in coordination of care (as documented) at patient's floor/unit and/or counseling patient: (1) Diabetes Diabetes mellitus type: type 2
--- NOTE | 2018-10-04 15:58 | Progress Note ---
DATE: 10/04/2018 Mr. Walker was seen today. He is being weaned off the oxygen and today this afternoon, he is 97% on room air, so the draining of the fluid has helped him tremendously. We looked at his labs. His lab work in the pleural fluid has a LDH of 134 and glucose of 107, so it is unlikely, in fact that it appeared to be a transudate. There is no growth on his pleural fluid either. His chest x-ray looked quite good. He only drained about 25 mL of fluid through this PleurX catheter. From my standpoint, he can be discharged home with the tube being drained every day or every other day. We will see him back in the office in the next week or so with an x-ray. He has definitely responded well to the drainage that is 1500 mL of fluid.
--- NOTE | 2018-10-04 16:37 | Discharge Summary ---
Date of Service October 04, 2018 Admission HPI Per Admitting Provider 48-year-old male with a history of HTN, HLD, T2DM, CHF, bilateral pleural effusions, ESRD on dialysis, CAD s/p stents presents as a transfer from [facility] with hypoxia. Patient reports that he was admitted over this weekend at [facility] for similar presentation. At that time, the patient states that he had a cough, fever and was short of breath. He states that he was discharged this morning from [facility] with treatment for pneumonia, but he says that while at dialysis this morning, he became short of breath and was subsequently brought to [facility]. He arrives to [facility] on 3 L nasal cannula. Patient reports having a past medical history of pleural effusions, the patient is unsure of the cause but confirms a history of CHF and end-stage renal disease. He is required thoracocentesis on 2 occasions to remove fluid. He denies a history of chronic lung disease, although the patient does report smoking for a number of years. He quit 15 years ago. The patient is never required oxygen at home. Patient states that he is on a kidney transplant list and recently had to get a cardiac stress test on September 03 which was stable. He does report a 1 year history of intermittent vomiting and will be receiving a colonoscopy shortly. Review of systems Constitutional; denies fevers, chills, night sweats HEENT; denies sore throat, runny nose Pulmonary; reports a nonproductive cough, denies hemoptysis, reports shortness of breath Cardio; denies chest pain, denies palpitations GI; denies abdominal pain, but has chronic nausea/vomiting Admission Exam Per Admitting Provider Constitutional: WD/WN, vitals as above Eyes: PERRL, conjunctivae normal, anicteric sclerae ENMT: external ear and nose normal, oropharynx normal Neck: trachea midline, no thyromegaly Respiratory: no respiratory distress, no labored breathing and does not use accessory muscles Auscultation: + diminished lung sounds (In bilateral bases) and + wheezes (Diffuse bilateral); no crackles and no rales Cardiovascular: RRR, no murmur, no edema Gastrointestinal (Abdomen): normal bowel sounds, soft, nontender, no hepatosplenomegaly Musculoskeletal: no cyanosis or clubbing, extremities motor strength 5/5 Skin: no rashes, warm and dry Neurologic: PERRL, EOMI, accommodation nl, no face palsy, no dysarthria Psychiatric: A+Ox3, euthymic affect Principal Diagnosis Acute hypoxic respiratory distress, bilateral pleural effusions, end-stage renal disease Discharge Exam Constitutional: WD/WN, vitals as above Eyes: PERRL, conjunctivae normal, anicteric sclerae ENMT: external ear and nose normal, oropharynx normal Neck: trachea midline, no thyromegaly Respiratory: nClear to auscultation bilaterally, no increased air movement, still requiring O2 with desaturations to the mid 90s Cardiovascular: RRR, no murmur, no edema Gastrointestinal (Abdomen): normal bowel sounds, soft, nontender, no hepatosplenomegaly Musculoskeletal: Head/Neck/Chest: normocephalic, head atraumatic and neck supple Skin: no rashes, warm and dry Neurologic: moves all extremities Speech / Cognition: normal speech Psychiatric: A+Ox3, euthymic affect Discharge Data Allergies Allergy/AdvReac Type Severity Reaction Status Date / Time codeine AdvReac Intermediate DELIRIUM,ME Verified 07/09/18 15:49 AN Consultations 09/30/18 23:11 Consult Case Management - Discharge Planning Routine 10/01/18 00:08 Consult Thoracic Surgery Routine 10/02/18 08:14 Consult Nephrology Routine Ordered Studies 10/01/18 00:07 CT chest wo con Urgent Hospital Course (1) Hypoxia: 48-year-old male with a history of HTN, HLD, Type 2 DM, CHF, bilateral pleural effusions, ESRD on dialysis, CAD s/p stents presents as a transfer from [facility] with hypoxia. Acute hypoxic respiratory distress with Bilateral Pleural Effusions During the weekend of September 27 the patient was diagnosed with pneumonia at [facility]. We attempted to obtain records from them however they were not received. Pulmonary cultures show no growth at 48 hours, ceftriaxone and doxycycline were discontinued secondary to lack of signs or symptoms of pneumonia. Chest x-rays were obtained periodically throughout the admission to monitor the effect of dialysis on his pleural effusions. Chest x-ray is continuously demonstrated bibasilar pleural effusions, chest CT without contrast showed layering pleural effusion with bibasilar consolidation, EKGs were negative troponins were negative. Echocardiogram while hospitalized demonstrated an EF of 60 to 65% and was similar to echo obtained 2017. the patient was provided with duo [employer] PRN for wheezing. Dr. Wall was consulted for evaluation of thoracocentesis versus Pleurx catheter placement. He elected for placement of Pleurx catheter, this will stay in place until pulmonary effusions resolved. Our working diagnosis is that the pleural effusions are secondary to end-stage renal disease. The patient received hemodialysis while hospitalized and respiratory symptoms improved significantly. End-stage renal disease Patient normally receives dialysis Sunday and Sunday in [place]. His primary fly fishing guide is Dr. Hendrickson. Upon admission nephrology was consulted and the majority the patient's care was guided by them. He received several episodes of heparin for hemodialysis while hospitalized. Dry weight on day of discharge was 101.5 kg. 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 While hospitalized CBC and BMP were trended, electrodes were repleted as indicated Hypertension While hospitalized the patient was continued on his home amlodipine and metoprolol Hyperlipidemia He was continued on home atorvastatin CAD x 2 stents He is continued home aspirin and clopidogrel Type 2 diabetes Continue Lantus and sliding scale insulin. -Patient states that he uses his Toujeo at home on a "sliding scale" per his own design. -Discussed with patient how poor diabetes management may be a contributing factor of his hx of vomiting. - Patient not responsive diabetes counseling and education, feels currently that his blood sugars are too tightly controlled. Chronic Itching He is continued on his home diphenhydramine 20 mg as needed for itching FEN/GI - No fluids, DM2 diet Code - Full DVT - Heparin Dispo - Home Total Time Total Time Spent Total Time Spent (In Minutes): Less than 30 Discharge Plan Discharge Items Patient Disposition: Home - Home Health Services Reason For Visit: ACUTE RESPIRATORY FAILURE,PNEUMONIA,LT PLEURAL EFF Discharge Diagnosis: pleural effusions - most likely secondary to renal failure Discharge Goals: Diagnostic testing and Therapeutic intervention Activity: Resume your previous activity Non-emergency contact: Primary Care Provider, Surgeon and Instrument Person Call non-emergency contact if: you have any medication questions and your symptoms worsen Follow-up/Referrals: PCP,NO [Primary Care Provider] - Diet: Dialysis Renal Addtl Provider Instructions: Pleural effusions -This is the fluid that was around your lung now drained by Dr. Wall -It appears most likely the fluid built up related to fluid retention from being a dialysis patient -Home nursing will continue to drain the Pleurx and report to Dr. varela letter, change to draining. Depending on how much draining continues we will have a lot to do with how long he needs to leave the tube in -Certainly get attention right away if you are feeling more short of breath Medications -As we discussed, once someone has progressed to needing dialysis, medications like furosemide (Lasix) and lisinopril often lose their utility. -To try to keep you from taking more medicines than necessary, we will cautio usly have you stop taking both of these. -If you actually needed/benefited from the Lasix, you would notice fairly quickly filling up with fluid, getting swollen, or getting more short of breath -If you were actually getting benefit from the lisinopril, you would notice by having blood pressures start to rise further than you normally run -Follow your breathing, follow swelling, and follow how you are feeling -Follow blood pressures at home 2-3 times a day Prescriptions: Continued atorvastatin [Lipitor] 80 mg Tablet 80 mg PO HS RF: 0 clopidogrel 75 mg Tablet 75 mg PO QAM RF: 0 pantoprazole 40 mg Tablet,Delayed Release (Dr/Ec) 40 mg PO QAM RF: 0 aspirin 81 mg Tablet,Chewable 81 mg PO QAM RF: 0 Toujeo SoloStar U-300 Insulin 300 unit/mL (1.5 mL) Insulin Pen 50 unit subcut QAM RF: 0 Renal Caps 1 mg Capsule 1 cap PO QPM RF: 0 metoprolol tartrate 50 mg Tablet 50 mg PO BID RF: 0 cefuroxime axetil 250 mg Tablet 250 mg PO BID RF: 0 amlodipine 10 mg Tablet 10 mg PO DAILY RF: 0 metoclopramide HCl 5 mg Tablet 5 mg PO ACHS RF: 0 Discontinued furosemide [Lasix] 40 mg Tablet 40 mg PO BID RF: 0 lisinopril 40 mg Tablet 40 mg PO QAM RF: 0 Stand-Alone Forms: [facility] Discharge Orders: Discharge Order (Routine); Ordered 10/04/18 Ordered By: Melvin Estrella Admission Data Admit Date/Time: 09/30/18 22:26 Attending Provider: Melvin Estrella Admit Provider: Johny Castorena Primary Care Provider: PCP,NO Other Providers: Garcia Wall ; Johny Castorena ; Gaston Suarez ; Arlyn Arriola Service: Telemetry Other Interventions: Discharge Summary Assessment (RN) Last Done: 10/04/18 17:11 DC Date/Time DO NOT enter until pt leaves facility: 10/04/18 18:10 Supervising Physician Co-Signing Physician Notes I personally examined the patient and verified all mata points of history and exam, discussed case, and agree with decision making with Dr Randall. Feeling better and would very much like to go home. 97 to 98% on room air even when we are walking in the hallway. Extensive discussion on medications, he notes that he has been on Lasix and lisinopril since long before he started dialysis. He is not sure if that really doing much for him anymore. He notes he makes very little urine and notices absolute no difference whenever he takes Lasix. Vitals noted, in general he is awake and alert pleasant no distress. No dyspnea no dyspnea on exertion his gait is stable and fluent. No focal neuro deficits. Skin shows no rashes no pallor or icterus. Pleural effusionnow with Pleurx in. Outpatient drainage. End-stage renal disease/hypertensionwe will hold off on Lasix (does not appear to be providing him any efficacy, discussed watching for any fluid retention/swelling/new dyspnea), and will hold lisinopril (discussed following blood pressurehe has a good reliable cuff at home, he is to check 2-3 times a day) Otherwise as above. Stable for home Resident Activity Tracking Resident Involvement: Resident Care Provided Care Provided: Adult Hospital Medicine
== END 2018-10-04 18:10 | disposition home health service (06) | DRG 189 ==
LOC: 2S 22:26 → SUATTDRO 22:26 → 2S 10-01 00:02

== ENCOUNTER 2020-02-01 08:31 | Observation (INO) ==
[2020-02-01] MEDS ORDERED: fentaNYL citrate 100 MCG/2 ML VIAL IV PRN (09:28)
--- NOTE | 2020-02-01 10:17 | Emergency Department Note ---
History of Present Illness General Chief complaint: Diarrhea Stated complaint: THINKS CDIFF, DIARRHEA Time Seen by Provider: 02/01/20 09:16 Source: patient Mode of arrival: ambulatory Limitations: no limitations History of Present Illness Provider complaint: Diarrhea, weakness Onset (ago): week(s) 2 Maximum Pain Intensity: 9 Associated symptoms: + cough, + loss of appetite, + malaise, + nausea/vomiting and + shortness of breath This is a 49-year-old male presents the emergency department complaining of increased diarrhea, and fatigue. Patient states 2 weeks ago he was admitted to [facility] with concern for pneumonia. Patient states he was already wearing oxygen at home. States while on antibiotics during his admission he began to feel worse with multiple GI side effects including diarrhea. Patient states af ter discharged he stopped the antibiotics. Patient states since then his diarrhea has persisted. Denies noting any blood. Denies any history of IBS or IBD. Patient denies any prior history of C. difficile. Patient states his oxygen requirements have increased since discharge and he is turned up his home oxygen from 2 to 3 L/min. Patient states he still does not feel that his breathing has returned to normal since the episode of pneumonia. Patient denies fevers or chills. Patient states his appetite is poor and he is intermittently nauseated. Patient recently started peritoneal dialysis. He states he feels that has been going well despite persistent abdominal distention. Patient st ates when performing PD last night the tubing worked well. Patient states he is also been having intermittent left hip pain over the last 4 days. Patient states no recent trauma or falls. Patient states he had similar episodes previously on the right which were subsequently related to a low back problem. Patient states the pain of the left hip radiates down the front of his left lower extremity to about the knee. Patient denies any numbness or tingling. Patient denies any joint swelling. Pt seen during a time of high acuity and national emergency pandemic while wearing PPE. Patient seen during EMR downtime with no access to prior medical records. Home Medications Medication Instructions Recorded Confirmed Type aspirin 81 mg PO QAM 05/06/18 02/01/20 History clopidogrel [Plavix] 75 mg PO QAM 04/05/19 02/01/20 History metoprolol tartrate [Lopressor] 50 mg PO BID 04/05/19 02/01/20 History albuterol sulfate 90 mcg/actuation 2 puffs INH Q6H PRN #18 gm 07/02/19 02/01/20 Rx aerosol inhaler atorvastatin 40 mg tablet 40 mg PO HS 09/04/19 02/02/20 History omeprazole 20 mg PO DAILY #30 cap 09/29/19 02/01/20 Rx insulin glargine U-300 conc 300 50 unit SUBCUT QAM #4.5 ml 10/06/19 02/01/20 Rx unit/mL (1.5 mL) subcutaneous pen amlodipine 10 mg tablet 10 mg PO QAM #90 tab 10/30/19 02/01/20 Rx montelukast 10 mg tablet 10 mg PO QAM #90 tab 11/14/19 02/01/20 Rx hydralazine 10 mg tablet 10 mg PO DAILY tab 12/04/19 02/01/20 History vitamin B complex with C-folic 1 tab PO DAILY 12/04/19 02/01/20 History acid 0.8 mg-zinc citrate 50 mg tablet fluticasone furoate 100 1 ea INHALATION DAILY #1 ea 01/30/20 02/01/20 Rx mcg-vilanterol 25 mcg/dose inhalation powder pen needle, diabetic 31 gauge x #100 ea 01/30/20 02/01/20 Rx 3/16" carvedilol 12.5 mg PO BID 02/01/20 02/01/20 History calcium carbonate [Tums] 1,500 mg PO TIDM #90 tab 02/02/20 Rx Allergies Allergy/AdvReac Type Severity Reaction Status Date / Time codeine Allergy Mild DELIRIUM,ME Verified 02/01/20 09:42 AN tramadol Allergy Mild nausea and Verified 02/01/20 09:42 vomiting Past Med/Surg History Medical History (Updated 02/03/20 @ 00:56 by Ilene Degroot DO) Acute on chronic diastolic CHF (congestive heart failure) Anemia of chronic disease CAD (coronary artery disease) Carotid artery stenosis CHF (congestive heart failure) Chronic diastolic heart failure Chronic hypoxemic respiratory failure Diabetes mellitus type 2, uncontrolled Diabetic retinopathy 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) Repaired s/p PPV, MP, EL (SNT) Diverticular disease Dyspnea on exertion Elevated troponin ESRD (end stage renal disease) on dialysis dialysis sun-sun-sun is getting dialysis sat prior to colonoscopy 09/29/2019 and will have it again after on sunday09/30/2019 Hyperlipidemia Hyperphosphatemia Hypertension Nuclear sclerosis of both eyes Obesity (BMI 30-39.9) Obstructive sleep apnea cpap on 2L N/C On home oxygen therapy 2L N/C at all times Pleural effusion, bilateral 11/2018 Presence of arteriovenous fistula for hemodialysis left forearm Secondary pulmonary hypertension Syncope Vitreous hemorrhage of right eye due to diabetes mellitus (12/04/18) Surgical History History of cardiac cath X 2 - 11/2017 - [facility] - SOB - 1 stent placed - follows w/ Dr. Zuniga - 2016 - [facility] - SOB - 1 stent placed History of colonoscopy History of foot surgery left x 4 History of heart artery stent X2 History of placement of chest tube left lung for pleural effusion 11/2018 History of tooth extraction all teeth S/P arteriovenous (AV) fistula creation 04/2016 Dr. Mena placed Family History Mother Diabetes Coronary heart disease Heart disease Hypertension Stroke Father Diabetes Coronary heart disease Heart disease Myocardial infarction Hypertension Stroke Other Kidney disease No family history of adverse response to anesthesia Denies family history of Ovarian cancer Prostate cancer Breast cancer Lung cancer Colorectal cancer Social History Smoking Status: Never smoker Second Hand Exposure: No; Hx Alcohol Use: No Hx Substance Use: No Preferred Language: Malay Communication Ability: Effective Visual Impairment: Limited Hearing Ability: Normal Occupational Health Nurse Manager Required: No Beliefs That Will Affect Care: None marital status: Life Partner Current Living Situation: Significant Other current occupational status: disabled Feels Safe at Home: Yes Childhood Exposure to Second-Hand Smoke: Yes caffeine: No during the past year weight has: remained stable Dental Care, Regularly: No Physical Activity Frequency: 1-2 Times per Week Physical Activity Frequency Comment: walk Seatbelt Use: always Sunscreen Use: No Assistive Devices: None Review of Systems See HPI for pertinent positives & negatives. and A total of 10 systems reviewed and were otherwise negative Physical Exam Vital Signs Vital Signs - 24 hr 02/01/20 08:35 02/01/20 09:53 02/01/20 10:00 Temperature 36.4 C L Temperature Source Temporal Artery Scan Pulse Rate 72 77 76 Pulse Rate from SpO2 Sensor Respiratory Rate 28 H 21 26 H Blood Pressure 210/104 H Blood Pressure Mean 139 Pulse Oximetry 100 Oxygen Delivery Method Nasal Cannula Oxygen Flow Rate 3 Sepsis Recent Fever Within 48 Hours No Sepsis New/Unexplained Change in Mental Status No Sepsis Action Taken by Nursing No Action Required 02/01/20 10:23 02/01/20 10:30 02/01/20 11:00 Temperature Temperature Source Pulse Rate 78 78 73 Pulse Rate from SpO2 Sensor 79 67 75 Respiratory Rate 21 22 20 Blood Pressure 187/86 H 188/79 H 177/83 H Blood Pressure Mean 102 142 124 Pulse Oximetry 100 98 99 Oxygen Delivery Method Nasal Cannula Oxygen Flow Rate 3 Sepsis Recent Fever Within 48 Hours Sepsis New/Unexplained Change in Mental Status Sepsis Action Taken by Nursing 02/01/20 11:09 02/01/20 11:30 02/01/20 12:00 Temperature Temperature Source Pulse Rate 77 77 81 Pulse Rate from SpO2 Sensor 79 77 76 Respiratory Rate 21 22 21 Blood Pressure 177/83 H 189/83 H 177/89 H Blood Pressure Mean 124 110 113 Pulse Oximetry 99 99 94 Oxygen Delivery Method Nasal Cannula Nasal Cannula Nasal Cannula Oxygen Flow Rate 3 3 3 Sepsis Recent Fever Within 48 Hours Sepsis New/Unexplained Change in Mental Status Sepsis Action Taken by Nursing 02/01/20 12:30 Temperature Temperature Source Pulse Rate 80 Pulse Rate from SpO2 Sensor 84 Respiratory Rate 23 Blood Pressure Blood Pressure Mean Pulse Oximetry 99 Oxygen Delivery Method Nasal Cannula Oxygen Flow Rate 3 Sepsis Recent Fever Within 48 Hours Sepsis New/Unexplained Change in Mental Status Sepsis Action Taken by Nursing GENERAL: alert, ill appearing, well nourished, no distress, non-toxic, dishevel ed appearance EYE EXAM: normal conjunctiva, PERRL and EOM's grossly intact OROPHARYNX: no exudate, no erythema, lips, buccal mucosa, and tongue normal and mucous membranes are moist NECK: supple, no nuchal rigidity, no adenopathy, non-tender LUNGS: Clear to auscultation. Normal chest wall mechanics, no w/r/r HEART: no murmurs, S1 normal and S2 normal ABDOMEN: abdomen soft, non-tender, normo-active bowel sounds, no masses, no rebound or guarding. Mild abdominal distention noted. PD catheter in place. Skin site well-appearing, no surrounding erythema, no drainage or bleeding. BACK: Back is symmetrical on inspection and there is no deformity, no midline tenderness, no CVA tenderness. SKIN: no rashes and no bruising, no petechiae UPPER EXTREMITIES: upper extremities are grossly normal. FROM, nml pulses b/l. LOWER EXTREMITIES: No pitting edema. FROM, nml pulses b/l. Pain with palpation over the left anterior hip. NEURO EXAM: Normal sensorium, cranial nerves II-XII grossly intact, normal speech, no gross weakness of arms, no gross weakness of legs. Gross sensation intact. Course Course 1136: Patient updated on results. Patient states he does not want to go back to [facility]. We discussed need for ongoing treatment and inpatient management. He verbalized understanding was in agreement with plan. Patient again gave verbal permission to seek medical records from his recent admission at [facility]. 1144: Case discussed with Dr. Mojica, hospitalist service. 1236: Additional records from [facility] have not arrived. On review of these patient had left the ER AMA after having a positive troponin. He returned the next day and was admitted where the treatment for his pneumonia was started. Patient had negative blood cultures. Patient's creatinine there was also elevated. Creatinine on January 19 was 19. Patient had markedly high phosphorus levels there as well and has a history of chronic hyperphosphatemia. Administered Medications Discontinued Medications Acetaminophen (Acetaminophen 325 Mg Tab) 325 mg PO Q4H PRN PRN Reason: Pain or Fever Stop: 03/03/20 11:35 Last Admin: 02/02/20 12:01 Dose: 325 mg Documented by: [id number] Amlodipine Besylate (Amlodipine Besylate 5 Mg Tab) 10 mg PO [facility] Stop: 03/03/20 08:59 Last Admin: 02/02/20 09:11 Dose: 10 mg Documented by: [id number] Amlodipine Besylate (Amlodipine Besylate 5 Mg Tab) 10 mg PO NOW ONE Stop: 02/01/20 13:24 Last Admin: 02/01/20 14:49 Dose: 10 mg Documented by: [id number] Aspirin (Aspirin 81 Mg Ectab) 81 mg PO [facility] Stop: 03/03/20 08:59 Last Admin: 02/02/20 09:11 Dose: 81 mg Documented by: [id number] Atorvastatin Calcium (Atorvastatin 40 Mg Tab) 40 mg PO [facility] Stop: 03/03/20 08:59 Last Admin: 02/02/20 09:13 Dose: Not Given Documented by: [id number] Calcium Carbonate (Calcium Carbonate 500 Mg Chewable Tab) 1,500 mg PO TIDM [facility] Stop: 03/03/20 07:59 Last Admin: 02/02/20 12:02 Dose: 1,500 mg Documented by: [id number] Admin: 02/02/20 09:12 Dose: Not Given Documented by: [id number] Clopidogrel Bisulfate (Clopidogrel Bisulfate 75 Mg Tab) 75 mg PO QAM [facility] Stop: 03/03/20 08:59 Last Admin: 02/02/20 09:10 Dose: 75 mg Documented by: [id number] Fentanyl Citrate (Fentanyl Citrate 100 Mcg/2 Ml Vial) 100 mcg IV Q15M PRN PRN Reason: Pain Stop: 02/15/20 09:27 Last Admin: 02/01/20 10:07 Dose: 100 mcg Documented by: [id number] Fluticasone/Vilanterol (Fluticasone/Vilanterol 100/25mcg 14 Puffs/Inhaler) 1 puffs INH DAILY [facility] Stop: 03/03/20 08:59 Last Admin: 02/02/20 09:13 Dose: 1 puffs Documented by: [id number] Heparin Sodium (Porcine) (Heparin Sod 5,000 Unit/0.5 Ml Vial) 5,000 units SQ Q12 [facility] Stop: 03/02/20 20:59 Last Admin: 02/02/20 09:11 Dose: 5,000 units Documented by: [id number] Admin: 02/01/20 20:56 Dose: 5,000 units Documented by: [id number] Hydralazine HCl (Hydralazine 10 Mg Tab) 10 mg PO DAILY [facility] Stop: 03/03/20 08:59 Last Admin: 02/02/20 09:11 Dose: 10 mg Documented by: [id number] Insulin Aspart (Insulin Aspart 100 Units/Ml 3 Ml Pen) 0 units SC ACHS [facility] Stop: 03/02/20 20:59 Last Admin: 02/02/20 09:12 Dose: Not Given Documented by: [id number] Admin: 02/01/20 21:09 Dose: Not Given Documented by: [id number] Cosigned by: [id number] Insulin Glargine (Insulin Glargine Solostar 100 Units/Ml 3 Ml Pen) 40 units SC Mo@0900 [facility]; Protocol Stop: 02/02/20 09:01 Last Admin: 02/02/20 09:12 Dose: 20 units Documented by: [id number] Cosigned by: [id number] Levalbuterol HCl (Levalbuterol Hcl 1.25 Mg/3 Ml Neb) 1.25 mg NEB Q6R [facility] Stop: 02/02/20 13:01 Last Admin: 02/02/20 13:05 Dose: Not Given Documented by: [id number] Admin: 02/02/20 07:38 Dose: Not Given Documented by: [id number] Admin: 02/02/20 00:20 Dose: Not Given Documented by: [id number] Admin: 02/01/20 19:01 Dose: 1.25 mg Documented by: [id number] Metoprolol Tartrate (Metoprolol Tartrate 50 Mg Tab) 50 mg PO BID [facility] Stop: 03/02/20 20:59 Last Admin: 02/02/20 09:10 Dose: 50 mg Documented by: [id number] Admin: 02/01/20 18:09 Dose: 50 mg Documented by: [id number] Miscellaneous Information (Nursing To Pharmacy Communication) 1 ea N/A TODAY [facility] Stop: 03/03/20 11:29 Last Admin: 02/02/20 11:51 Dose: Not Given Documented by: [id number] Montelukast Sodium (Montelukast Sodium 10 Mg Tablet) 10 mg PO QAM [facility] Stop: 03/03/20 08:59 Last Admin: 02/02/20 09:11 Dose: 10 mg Documented by: [id number] Morphine Sulfate (Morphine Sulfate 2 Mg/Ml Carp) 1 mg IV NOW STA Stop: 02/01/20 19:10 Last Admin: 02/01/20 19:44 Dose: 1 mg Documented by: [id number] Pantoprazole Sodium (Pantoprazole 40 Mg Tab) 40 mg PO DAILY [facility] Stop: 03/03/20 08:59 Last Admin: 02/02/20 09:11 Dose: 40 mg Documented by: [id number] Vitamin B Complex (Vitamin B Complex Tab) 1 tab PO DAILY [facility] Stop: 03/03/20 08:59 Last Admin: 02/02/20 09:13 Dose: Not Given Documented by: [id number] Medical Decision Making Differential Diagnosis Differential: Viral, Bacterial, Parasitic, Iatrogenic, C-Diff, Malabsorbtion, Irritable Bowel Disease, IBS, Ischemic Bowel, amongst other pathologies entertained. Medical Records Attestation: I reviewed the patient's medical records. Home Medications Current Medication List: was personally reviewed by me Laboratory Data Attestation: I reviewed the patient's lab results. Result diagrams: 02/02/20 08:11 02/02/20 08:11 Lab Results 02/01/20 02/01/20 02/01/20 Range/Units 09:42 09:58 09:58 WBC (4.8-10.8) K/uL RBC (4.7-6.1) M/uL Hgb (14.0-18.0) g/dL Hct (42-52) % MCV (80-100) fL MCH (25-34) pg MCHC (32-36) g/dL RDW Std Deviation (36.4-46.3) fL RDW Coeff of Octavio (11.5-14.5) % Plt Count (130-400) K/uL MPV (7.4-10.4) fL Immature Gran % (Auto) % Neut % (Auto) % Lymph % (Auto) % Rice % (Auto) % Eos % (Auto) % Baso % (Auto) % Neut # (Auto) (1.4-6.5) K/uL Lymph # (Auto) (1.2-3.4) K/uL Rice # (Auto) (0.11-0.59) K/uL Eos # (Auto) (0-0.5) K/uL Baso # (Auto) (0-0.2) K/uL Immature Gran # (Auto) (0.00-0.02) K/uL PT (9.0-12.0) Seconds INR (0.9-1.1) Sodium 137 (136-145) mmol/L Potassium 4.7 (3.5-5.1) mmol/L Chloride 95 L (98-107) mmol/L Carbon Dioxide 20 L (21-32) mmol/L Anion Gap 22.0 H (3-11) BUN 131 H (7-18) mg/dl Creatinine 19.60 H* (0.6-1.4) mg/dl Est Cr Clr Drug Dosing Not Reportable Est GFR ( Amer) 2.8 Est GFR (Non-Af Amer) 2.4 BUN/Creatinine Ratio 6.7 L (10-20) Glucose 87 (70-99) mg/dl Lactate 0.6 (0.4-2.0) mmol/L Calcium 8.0 L (8.5-10.1) mg/dl Phosphorus 11.9 H (2.5-4.9) mg/dl Magnesium 2.6 H (1.8-2.4) mg/dl Total Bilirubin 0.6 (0.2-1) mg/dl AST 18 (15-37) U/L ALT 12 (12-78) U/L Alkaline Phosphatase 105 (45-117) U/L Total Protein 7.4 (6.4-8.2) gm/dl Albumin 3.4 (3.4-5.0) gm/dl Globulin 4.0 (2.5-4.0) gm/dl Albumin/Globulin Ratio 0.8 L (0.9-2) Lipase 275 (73-393) U/L Procalcitonin (0-0.5) ng/ml Stl C. diff Tox B Gene Negative Cdiff Gene (Neg) COVID-19 Eval Order SARS-CoV-2, RNA, NAAT (NEGATIVE) 02/01/20 02/01/20 02/01/20 Range/Units 09:58 09:58 11:52 WBC 16.15 H (4.8-10.8) K/uL RBC 3.36 L (4.7-6.1) M/uL Hgb 10.4 L (14.0-18.0) g/dL Hct 31.1 L (42-52) % MCV 92.6 (80-100) fL MCH 31.0 (25-34) pg MCHC 33.4 (32-36) g/dL RDW Std Deviation 53.2 H (36.4-46.3) fL RDW Coeff of Octavio 15.9 H (11.5-14.5) % Plt Count 270 (130-400) K/uL MPV 10.5 H (7.4-10.4) fL Immature Gran % (Auto) 0.8 % Neut % (Auto) 84.0 % Lymph % (Auto) 9.9 % Rice % (Auto) 3.2 % Eos % (Auto) 2.0 % Baso % (Auto) 0.1 % Neut # (Auto) 13.57 H (1.4-6.5) K/uL Lymph # (Auto) 1.60 (1.2-3.4) K/uL Rice # (Auto) 0.52 (0.11-0.59) K/uL Eos # (Auto) 0.32 (0-0.5) K/uL Baso # (Auto) 0.01 (0-0.2) K/uL Immature Gran # (Auto) 0.13 H (0.00-0.02) K/uL PT 11.4 (9.0-12.0) Seconds INR 1.1 (0.9-1.1) Sodium (136-145) mmol/L Potassium (3.5-5.1) mmol/L Chloride (98-107) mmol/L Carbon Dioxide (21-32) mmol/L Anion Gap (3-11) BUN (7-18) mg/dl Creatinine (0.6-1.4) mg/dl Est Cr Clr Drug Dosing Est GFR ( Amer) Est GFR (Non-Af Amer) BUN/Creatinine Ratio (10-20) Glucose (70-99) mg/dl Lactate (0.4-2.0) mmol/L Calcium (8.5-10.1) mg/dl Phosphorus (2.5-4.9) mg/dl Magnesium (1.8-2.4) mg/dl Total Bilirubin (0.2-1) mg/dl AST (15-37) U/L ALT (12-78) U/L Alkaline Phosphatase (45-117) U/L Total Protein (6.4-8.2) gm/dl Albumin (3.4-5.0) gm/dl Globulin (2.5-4.0) gm/dl Albumin/Globulin Ratio (0.9-2) Lipase (73-393) U/L Procalcitonin (0-0.5) ng/ml Stl C. diff Tox B Gene (Neg) COVID-19 Eval Order Covid19 [facility] SARS-CoV-2, RNA, NAAT (NEGATIVE) 02/01/20 02/01/20 Range/Units 11:52 12:19 WBC (4.8-10.8) K/uL RBC (4.7-6.1) M/uL Hgb (14.0-18.0) g/dL Hct (42-52) % MCV (80-100) fL MCH (25-34) pg MCHC (32-36) g/dL RDW Std Deviation (36.4-46.3) fL RDW Coeff of Octavio (11.5-14.5) % Plt Count (130-400) K/uL MPV (7.4-10.4) fL Immature Gran % (Auto) % Neut % (Auto) % Lymph % (Auto) % Rice % (Auto) % Eos % (Auto) % Baso % (Auto) % Neut # (Auto) (1.4-6.5) K/uL Lymph # (Auto) (1.2-3.4) K/uL Rice # (Auto) (0.11-0.59) K/uL Eos # (Auto) (0-0.5) K/uL Baso # (Auto) (0-0.2) K/uL Immature Gran # (Auto) (0.00-0.02) K/uL PT (9.0-12.0) Seconds INR (0.9-1.1) Sodium (136-145) mmol/L Potassium (3.5-5.1) mmol/L Chloride (98-107) mmol/L Carbon Dioxide (21-32) mmol/L Anion Gap (3-11) BUN (7-18) mg/dl Creatinine (0.6-1.4) mg/dl Est Cr Clr Drug Dosing Est GFR ( Amer) Est GFR (Non-Af Amer) BUN/Creatinine Ratio (10-20) Glucose (70-99) mg/dl Lactate (0.4-2.0) mmol/L Calcium (8.5-10.1) mg/dl Phosphorus (2.5-4.9) mg/dl Magnesium (1.8-2.4) mg/dl Total Bilirubin (0.2-1) mg/dl AST (15-37) U/L ALT (12-78) U/L Alkaline Phosphatase (45-117) U/L Total Protein (6.4-8.2) gm/dl Albumin (3.4-5.0) gm/dl Globulin (2.5-4.0) gm/dl Albumin/Globulin Ratio (0.9-2) Lipase (73-393) U/L Procalcitonin 0.42 (0-0.5) ng/ml Stl C. diff Tox B Gene (Neg) COVID-19 Eval Order SARS-CoV-2, RNA, NAAT NEGATIVE (NEGATIVE) Imaging Data Radiologist's Impression: CT OF THE ABDOMEN AND PELVIS WITHOUT CONTRAST CLINICAL HISTORY: diarrhea, abd distention COMPARISON STUDY: No previous studies for comparison. TECHNIQUE: Axial images of the abdomen and pelvis were obtained without IV contrast. Images were reviewed in the axial, sagittal, and coronal planes. Automated exposure control was utilized for the study. A dose lowering technique was utilized adhering to the principles of ALARA. FINDINGS: Visualized portions of the lower chest demonstrate trace bilateral pleural effusions. Interlobular septal thickening is noted. There is also mild ground glass opacity within the right middle lobe, partially imaged on this examination. A 4 mm subpleural right lower lobe nodule on image 30 of 466 is likely benign. No pneumatosis, free air or portal venous gas is present. Evaluation of the abdomen and pelvis is suboptimal on this unenhanced examination. There is mild nodularity of the liver surface. A 1.1 cm subcapsular segment 5 lesion favors a cyst but is suboptimally assessed on this unenhanced exam. Size of the spleen is at the upper limits of normal. Unenhanced images of the adrenal glands, kidneys and pancreas are unremarkable with exception of bilateral pancreatic glandular atrophy. There is extensive vascular calcification. There is no biliary or pancreatic ductal dilatation. There is no evidence for a bowel obstruction. There is no evidence for acute appendicitis. There is trace ascites within the abdomen and pelvis. Tip of peritoneal dialysis catheter is within the anterior aspect of the upper pelvis. Subcutaneous infiltration is noted. Small fat-containing umbilical hernia is present. There is no hydronephrosis. There is no lymphadenopathy. No fluid collection is suggest an abscess is noted. Minimal retrolisthesis of L5 on S1 is due to bilateral L5 pars defects. A sclerotic 1.6 cm lesion within the right iliac bone favors a bone island. IMPRESSION: 1. No evidence for a bowel obstruction. No bowel wall thickening. No evidence for acute appendicitis. 2. Trace fluid within the abdomen and pelvis. Peritoneal dialysis catheter in place. 3. Evidence for mild volume overload. Anasarca. Trace bilateral pleural effusions and mild interstitial pulmonary edema within the lower lungs. 4. Groundglass opacities within visualized portions of the lower lungs which may reflect a superimposed infectious process or pulmonary edema. ACT 112: Negative or not required by law. Electronically signed by: Manolo Shelton M.D. 02/01/2020 10:56 AM XR hip LT 2V w pelvis CLINICAL HISTORY: Left hip pain. COMPARISON: None FINDINGS: Sacroiliac joints and symphysis pubis are intact. No acute fracture within the pelvis or hips is identified. There is mild to moderate bilateral hip osteoarthritis. Evaluation is difficult given suboptimal penetration. IMPRESSION: 1. No acute fracture within the pelvis or hips. 2. Mild to moderate bilateral hip osteoarthritis. ACT 112: Negative or not required by law. Electronically signed by: Manolo Shelton M.D. 02/01/2020 10:44 AM XR chest 1V portable CLINICAL HISTORY: recent pneumonia COMPARISON STUDY: Chest radiograph July 02, 2019. Chest CT April 08, 2019. FINDINGS: There is no pneumothorax. There are trace bilateral pleural effusions. Moderate cardiomegaly is noted. There is mild interstitial thickening. No lobar consolidation is present. There may be minimal left midlung opacity. IMPRESSION: 1. Interstitial thickening suggestive of mild pulmonary edema. 2. Trace bilateral pleural effusions. 3. Possible mild left midlung opacity. Radiographic follow-up is recommended. ACT 112: Negative or not required by law. Electronically signed by: Manolo Shelton M.D. 02/01/2020 10:42 AM ECG Data Attestation: I personally reviewed and interpreted this ECG as follows: Indication: + weakness Rate (beats per minute): 74 Rhythm: + normal sinus ECG Intervals/blocks: + Normal QRS and + Normal QT ECG Coden: + Normal ECG ST segments: + Normal ST segments Blood Pressure Blood Pressure Findings: Elevated blood pressure Blood Pressure Disposition: further management by hospitalist KIRBY Kumar This is an ill-appearing 49-year-old male who presents with complaints for persistent diarrhea and weakness which she originally felt were due to a ntibiotics used to treat a recent pneumonia. Patient with a recent admission to [facility] for pneumonia per his report. Patient with multiple chronic medical problems including chronic kidney disease doing peritoneal dialysis nightly. Labs are drawn and sent, orders for C. difficile and stool cultures placed, patient sent for imaging. No evidence of acute colitis, or bowel obstruction. Patient's lactic acid reassuring and I do not suspect ischemic colitis or mesenteric ischemia. C. difficile was negative. Patient with abnormal BUN and creatinine, hyperphosphatemia, and anemia. We did attempt to obtain records from [facility] which did eventually arrived after E spoken to the hospitalist. These did provide some insight regarding his recent admission, antibiotics, and lab tests. There was noted on the chest x-ray of a possible left lung pneumonia. Patient was started on antibiotics again after discussion with the hospitalist, as we were awaiting records from [facility] to see if this was the same location from the recent pneumonia that may have only been partially treated or if this is new, or even possibly a recurrence. Hospitalist would like to see and evaluate him, and may even consider CT imaging of the chest. A coronavirus test was added and was negative. Patient was made aware of all results, was offered transfer to [facility] given he had recently been admitted there and he refused, stating he would like to be admitted here. Patient remained hemodynamically stable while in the emergency room despite being ill appearing. No evidence of bacteremia/sepsis. An order was placed for continuous cardiac monitoring. The monitor shows a rate of _80_ with _normal sinus_ rhythm. Impression & Plan Diarrhea, Hyperphosphatemia, Generalized weakness, CKD (chronic kidney disease), Anemia, Pneumonia, Chronic respiratory failure with hypoxia, on home O2 therapy Discharge Plan Visit Data Chief Complaint: Diarrhea Stated Complaint: THINKS CDIFF, DIARRHEA ED Provider: Ilene Degroot Discharge Problem: Diarrhea, Hyperphosphatemia, Generalized weakness, CKD (chronic kidney disease), Anemia, Pneumonia, Chronic respiratory failure with hypoxia, on home O2 therapy Patient Disposition: Admitted As Inpatient Discharge Instructions Interventions: ED Discharge Assessment Last Done: 02/01/20 15:09 Discharge Problem: Diarrhea Qualifiers: Diarrhea type: unspecified type Qualified Code(s): R19.7 - Diarrhea, unspecified CKD (chronic kidney disease) Qualifiers: Chronic kidney disease stage: on chronic dialysis Qualified Code(s): N18.6 - End stage renal disease Anemia Qualifiers: Anemia type: unspecified type Qualified Code(s): D64.9 - Anemia, unspecified Pneumonia Qualifiers: Pneumonia type: due to unspecified organism Laterality: left Lung location: unspecified part of lung Qualified Code(s): J18.9 - Pneumonia, unspecified organism
[2020-02-01 10:22] LABS: Basophils # (auto) 0.01 K/uL (0-0.2); Basophils % (auto) 0.1 %; Eosinophils # (auto) 0.32 K/uL (0-0.5); Hematocrit (blood only) 31.1 % (42-52); Hemoglobin 10.4 g/dL (14.0-18.0); Immature Granulocytes # (auto) 0.13 K/uL (0.00-0.02); Immature Granulocytes % (auto) 0.8 %; Lymphocytes % (auto) 9.9 %; Mean Corpuscular Hgb Conc 33.4 g/dL (32-36); Mean Corpuscular Volume 92.6 fL (80-100); Mean Platelet Volume 10.5 fL (7.4-10.4); Monocytes # (auto) 0.52 K/uL (0.11-0.59); Monocytes % (auto) 3.2 %; Neutrophils # (auto) 13.57 K/uL (1.4-6.5); Platelet Count 270 K/uL (130-400); RDW Coefficient of Variation 15.9 % (11.5-14.5); RDW Standard Deviation 53.2 fL (36.4-46.3); Red Blood Count 3.36 M/uL (4.7-6.1); White Blood Count 16.15 K/uL (4.8-10.8)
[2020-02-01 10:31] LABS: INR 1.1 (0.9-1.1); Prothrombin Time 11.4 Seconds (9.0-12.0)
--- NOTE | 2020-02-01 10:43 | XRay Report ---
XR chest 1V portable CLINICAL HISTORY: recent pneumonia COMPARISON STUDY: Chest radiograph July 02, 2019. Chest CT April 08, 2019. FINDINGS: There is no pneumothorax. There are trace bilateral pleural effusions. Moderate cardiomegal y is noted. There is mild interstitial thickening. No lobar consolidation is present. There may be mi nimal left midlung opacity. IMPRESSION: 1. Interstitial thickening suggestive of mild pulmonary edema. 2. Trace bilateral pleural effusions. 3. Possible mild left midlung opacity. Radiographic follow-up is recommended. ACT 112: Negative or not required by law. Electronically signed by: Manolo Shelton M.D. 02/01/2020 10:42 AM
--- NOTE | 2020-02-01 10:45 | XRay Report ---
XR hip LT 2V w pelvis CLINICAL HISTORY: Left hip pain. COMPARISON: None FINDINGS: Sacroiliac joints and symphysis pubis are intact. No acute fracture within the pelvis or h ips is identified. There is mild to moderate bilateral hip osteoarthritis. Evaluation is difficult gi keyur suboptimal penetration. IMPRESSION: 1. No acute fracture within the pelvis or hips. 2. Mild to moderate bilateral hip osteoarthritis. ACT 112: Negative or not required by law. Electronically signed by: Manolo Shelton M.D. 02/01/2020 10:44 AM
--- NOTE | 2020-02-01 10:57 | CT Scan Report ---
CT OF THE ABDOMEN AND PELVIS WITHOUT CONTRAST CLINICAL HISTORY: diarrhea, abd distention COMPARISON STUDY: No previous studies for comparison. TECHNIQUE: Axial images of the abdomen and pelvis were obtained without IV contrast. Images were revi ewed in the axial, sagittal, and coronal planes. Automated exposure control was utilized for the ashley dy. A dose lowering technique was utilized adhering to the principles of ALARA. FINDINGS: Visualized portions of the lower chest demonstrate trace bilateral pleural effusions. Inter lobular septal thickening is noted. There is also mild ground glass opacity within the right middle l obe, partially imaged on this examination. A 4 mm subpleural right lower lobe nodule on image 30 of 4 66 is likely benign. No pneumatosis, free air or portal venous gas is present. Evaluation of the abdo men and pelvis is suboptimal on this unenhanced examination. There is mild nodularity of the liver garg rface. A 1.1 cm subcapsular segment 5 lesion favors a cyst but is suboptimally assessed on this unenh anced exam. Size of the spleen is at the upper limits of normal. Unenhanced images of the adrenal gla nds, kidneys and pancreas are unremarkable with exception of bilateral pancreatic glandular atrophy. There is extensive vascular calcification. There is no biliary or pancreatic ductal dilatation. There is no evidence for a bowel obstruction. There is no evidence for acute appendicitis. There is trace ascites within the abdomen and pelvis. Tip of peritoneal dialysis catheter is within the anterior asp ect of the upper pelvis. Subcutaneous infiltration is noted. Small fat-containing umbilical hernia is present. There is no hydronephrosis. There is no lymphadenopathy. No fluid collection is suggest an abscess is noted. Minimal retrolisthesis of L5 on S1 is due to bilateral L5 pars defects. A sclerotic 1.6 cm lesion within the right iliac bone favors a bone island. IMPRESSION: 1. No evidence for a bowel obstruction. No bowel wall thickening. No evidence for acute appendicitis. 2. Trace fluid within the abdomen and pelvis. Peritoneal dialysis catheter in place. 3. Evidence for mild volume overload. Anasarca. Trace bilateral pleural effusions and mild interstiti al pulmonary edema within the lower lungs. 4. Groundglass opacities within visualized portions of the lower lungs which may reflect a superimpos ed infectious process or pulmonary edema. ACT 112: Negative or not required by law. Electronically signed by: Manolo Shelton M.D. 02/01/2020 10:56 AM
[2020-02-01 11:00] LABS: Alanine Aminotransferase 12 U/L (12-78); Albumin Globulin Ratio 0.8 (0.9-2); Albumin Level 3.4 gm/dl (3.4-5.0); Alkaline Phosphatase 105 U/L (45-117); Aspartate Aminotransferase 18 U/L (15-37); BUN Creatinine Ratio 6.7 (10-20); Bilirubin,Total 0.6 mg/dl (0.2-1); Blood Urea Nitrogen 131 mg/dl (7-18); Carbon Dioxide 20 mmol/L (21-32); Chloride 95 mmol/L (98-107); Est GFR (African American) 2.8; Est GFR (Non-African American) 2.4; Glucose 87 mg/dl (70-99); Lipase 275 U/L (73-393); Magnesium 2.6 mg/dl (1.8-2.4); Potassium 4.7 mmol/L (3.5-5.1); Sodium 137 mmol/L (136-145); Total Protein 7.4 gm/dl (6.4-8.2)
[2020-02-01 11:22] LABS: Phosphorus 11.9 mg/dl (2.5-4.9)
--- NOTE | 2020-02-01 11:44 | Electrocardiogram Report ---
Test Reason : Blood Pressure : / mmHG Vent. Rate : 074 BPM Atrial Rate : 074 BPM P-R Int : 166 ms QRS Dur : 078 ms QT Int : 418 ms P-R-T Axes : 027 046 053 degrees QTc Int : 463 ms Normal sinus rhythm Normal ECG When compared with ECG of 02-JUL-2019 14:12, Aberrant conduction is no longer Present Nonspecific T wave abnormality no longer evident in Inferior leads Confirmed by Matty Park ([id number]) on 02/01/2020 11:44:36 AM Referred By: REFERRED SELF Confirmed By:Matty Park
--- NOTE | 2020-02-01 13:13 | History & Physical Report ---
Date of Service February 01, 2020 Assessment & Plan (1) Hypoxia: Patient has been on 3 liters since discharge in late December. Patient completed about 4 days of antibiotics, however unsure if patient truly had pneumonia. Diff. diagnosis: atelectasis vs pleural effusion. obtain blood culture. will recheck labs in AM, hold antibiotics will place on round the clock nebs for [address] chest in AM. (2) Leukocytosis: likely secondary to steroids. procal normal despite having ESRD. will monitor. (3) Diarrhea: Patient's main complaint is diarrhea. He had one loose stool while here. Will obtain a c diff test. check stool culture will monitor. 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 will continue home meds (6) Chronic diastolic heart failure: appears euvolemic. (7) Obesity (BMI 30-39.9): recommend life style modifcation (8) Hyperlipidemia: stable resume home meds (9) Diabetes mellitus type 2, uncontrolled: will place on ss insulin. will monitor History of Present Illness Chief Complaint: diarrhea Primary Care Provider: CHRIS Zuniga This is a pleasant 49 yo male who has ESRD, hypertension, chronic diastolic heart failure, obestiy. Patient comes in with about a 2 week history of generalized weakness and diarrhea. Patient was recently admitted in [facility] for possible community acquired pneumonia. Chest -x-ray showed possible left lower lobe opacity vs atelectasis. Patient was discharged to complete 2 more days of antibiotics, however patient only completed one. Patient was also discharged on a steroid taper. Patient reports once he was home, he began developing diarrhea, and he attributed this to his antibiotics. He stopped and did not complete his 2nd day of antibiotics at home. Patient reports he feels generalized malaise, has a poor appetite, and is intermittently nauseated. He also recently stated peritoneal dialysis. He is know with [facility], however, he now follows with a different Nephro group. Patient comes in to the hospital due to diarrhea, and weakness. Allergies Allergy/AdvReac Type Severity Reaction Status Date / Time codeine Allergy Mild DELIRIUM,ME Verified 02/01/20 09:42 AN tramadol Allergy Mild nausea and Verified 02/01/20 09:42 vomiting Home Medications Medication Instructions Recorded Confirmed Type aspirin 81 mg PO QAM 05/06/18 02/01/20 History clopidogrel [Plavix] 75 mg PO QAM 04/05/19 02/01/20 History metoprolol tartrate [Lopressor] 50 mg PO BID 04/05/19 02/01/20 History albuterol sulfate 90 mcg/actuation 2 puffs INH Q6H PRN #18 gm 07/02/19 02/01/20 Rx aerosol inhaler atorvastatin 40 mg tablet 40 mg PO QAM 09/04/19 02/01/20 History omeprazole 20 mg PO DAILY #30 cap 09/29/19 02/01/20 Rx insulin glargine U-300 conc 300 50 unit SUBCUT QAM #4.5 ml 10/06/19 02/01/20 Rx unit/mL (1.5 mL) subcutaneous pen amlodipine 10 mg tablet 10 mg PO QAM #90 tab 10/30/19 02/01/20 Rx montelukast 10 mg tablet 10 mg PO QAM #90 tab 11/14/19 02/01/20 Rx hydralazine 10 mg tablet 10 mg PO DAILY tab 12/04/19 02/01/20 History vitamin B complex with C-folic 1 tab PO DAILY 12/04/19 02/01/20 History acid 0.8 mg-zinc citrate 50 mg tablet fluticasone furoate 100 1 ea INHALATION DAILY #1 ea 01/30/20 02/01/20 Rx mcg-vilanterol 25 mcg/dose inhalation powder pen needle, diabetic 31 gauge x #100 ea 01/30/20 02/01/20 Rx 3/16" carvedilol 12.5 mg PO BID 02/01/20 02/01/20 History Past Med/Surg History Medical History Acute on chronic diastolic CHF (congestive heart failure) Anemia of chronic disease CAD (coronary artery disease) Carotid artery stenosis CHF (congestive heart failure) Chronic diastolic heart failure Chronic hypoxemic respiratory failure Diabetes mellitus type 2, uncontrolled Diabetic retinopathy 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) Repaired s/p PPV, MP, EL (SNT) Diverticular disease Dyspnea on exertion Elevated troponin ESRD (end stage renal disease) on dialysis dialysis sun-sun-sun is getting dialysis sat prior to colonoscopy 09/29/2019 and will have it again after on sunday09/30/2019 Hyperlipidemia Hypertension Nuclear sclerosis of both eyes Obesity (BMI 30-39.9) Obstructive sleep apnea cpap on 2L N/C On home oxygen therapy 2L N/C at all times Pleural effusion, bilateral 11/2018 Presence of arteriovenous fistula for hemodialysis left forearm Secondary pulmonary hypertension Syncope Vitreous hemorrhage of right eye due to diabetes mellitus (12/04/18) Surgical History History of cardiac cath X 2 - 11/2017 - [facility] - SOB - 1 stent placed - follows w/ Dr. Zuniga - 2016 - [facility] - SOB - 1 stent placed History of colonoscopy History of foot surgery left x 4 History of heart artery stent X2 History of placement of chest tube left lung for pleural effusion 11/2018 History of tooth extraction all teeth S/P arteriovenous (AV) fistula creation 04/2016 Dr. Mena placed Family History Mother Diabetes Coronary heart disease Heart disease Hypertension Stroke Father Diabetes Coronary heart disease Heart disease Myocardial infarction Hypertension Stroke Other Kidney disease No family history of adverse response to anesthesia Denies family history of Ovarian cancer Prostate cancer Breast cancer Lung cancer Colorectal cancer Social History Smoking Status: Never smoker Second Hand Exposure: No; Hx Alcohol Use: No Hx Substance Use: No Preferred Language: Danish Communication Ability: Effective Visual Impairment: Limited Hearing Ability: Normal Data Coder Operator Required: No Beliefs That Will Affect Care: None marital status: Life Partner Current Living Situation: Significant Other current occupational status: disabled Other Information That Helps Us Care for You: No Feels Safe at Home: Yes Safety Concerns: Feels Safe At This Time Childhood Exposure to Second-Hand Smoke: Yes caffeine: No during the past year weight has: remained stable Dental Care, Regularly: No Physical Activity Frequency: 1-2 Times per Week Physical Activity Frequency Comment: walk Seatbelt Use: always Sunscreen Use: No Assistive Devices: Glasses and Oxygen - Continuous Review of Systems Review of Systems: All systems reviewed & are unremarkable except as noted in HPI & below Physical Exam Constitutional: WD/WN, vitals as above + ill appearing, + disheveled and cooperative Eyes: PERRL, conjunctivae normal, anicteric sclerae ENMT: external ear and nose normal, oropharynx normal Neck: trachea midline, no thyromegaly Respiratory: normal respiratory effort, lungs clear to auscultation Cardiovascular: RRR, no murmur, no edema Gastrointestinal (Abdomen): normal bowel sounds, soft, nontender, no hepatosplenomegaly Musculoskeletal: no cyanosis or clubbing, extremities motor strength 5/5 Neurologic: PERRL, EOMI, accommodation nl, no face palsy, no dysarthria Psychiatric: A+Ox3, euthymic affect Results & Data Results & Data ([facility]) Vital Signs (Past 12 Hours) Vital Signs Temp Pulse Resp BP Pulse Ox 02/01/20 12:30 80 23 99 02/01/20 12:00 81 21 177/89 H 94 02/01/20 11:30 77 22 189/83 H 99 02/01/20 11:09 77 21 177/83 H 99 02/01/20 11:00 73 20 177/83 H 99 02/01/20 10:30 78 22 188/79 H 98 02/01/20 10:23 78 21 187/86 H 100 02/01/20 10:00 76 26 H 02/01/20 09:53 77 21 02/01/20 08:35 36.4 C L 72 28 H 210/104 H 100 PG Care Time/CCT Total # of Minutes Spent Total Time Spent with Patient: Total time spent is greater than 50% in coordination of care (as documented) at patient's floor/unit and/or counseling patient: Coding Level of Care Code 65474 OBS Care - Level 3 Diagnoses Hypoxia R09.02 Leukocytosis D72.829 Diarrhea R19.7 End-stage renal disease on hemodialysis N18.6; Z99.2 Restrictive lung disease secondary to obesity J98.4; E66.9 Chronic diastolic heart failure I50.32 Obesity (BMI 30-39.9) E66.9 Hyperlipidemia E78.5 Diabetes mellitus type 2, uncontrolled Glycemic state: with hyperglycemia (1) Diabetes mellitus type 2, uncontrolled Glycemic state: with hyperglycemia Qualified Code(s): - Type 2 diabetes mellitus with hyperglycemia
[2020-02-01] MEDS ORDERED: amLODIPine BESYLATE 5 MG TAB PO ONE (13:23)
[2020-02-01] MEDS ORDERED: CARBOHYDRATES FOR HYPOGLYCEMIA PO PRN (18:06)
[2020-02-01] MEDS ORDERED: GLUCOSE 40% GEL 15 GM TUBE PO PRN (18:06)
[2020-02-01] MEDS ORDERED: GLUCOSE 10 TABS/TUBE PO PRN (18:06)
[2020-02-01] MEDS ORDERED: GLUCAGON FOR INJ 1 MG VIAL SQ PRN (18:06)
[2020-02-01] MEDS ORDERED: DEXTROSE 50% 50 ML SYRINGE IV PRN (18:06)
[2020-02-01] MEDS: METOPROLOL TARTRATE 50 MG TAB PO SCH (18:09)
[2020-02-01] MEDS: LEVALBUTEROL HCL 1.25 MG/3 ML NEB NEB SCH (19:01)
[2020-02-01] MEDS ORDERED: oxyCODONE HCL IR 5 MG TAB (IMMEDIATE RELEASE) PO PRN (19:09)
[2020-02-01] MEDS ORDERED: MoRPHine SULFATE 2 MG/ML CARP IV STA (19:09)
[2020-02-01] MEDS: HEPARIN SOD 5,000 UNIT/0.5 ML VIAL SQ SCH (20:56)
[2020-02-01] MEDS: INSULIN ASPART 100 UNITS/ML 3 ML PEN SC SCH (21:09)
[2020-02-02] MEDS: LEVALBUTEROL HCL 1.25 MG/3 ML NEB NEB SCH ×3 (00:20→13:05)
[2020-02-02 08:33] LABS: Basophils # (auto) 0.01 K/uL (0-0.2); Basophils % (auto) 0.1 %; Eosinophils # (auto) 0.15 K/uL (0-0.5); Eosinophils % (auto) 1.1 %; Hematocrit (blood only) 30.2 % (42-52); Immature Granulocytes # (auto) 0.06 K/uL (0.00-0.02); Immature Granulocytes % (auto) 0.4 %; Lymphocytes # (auto) 1.07 K/uL (1.2-3.4); Mean Corpuscular Hemoglobin 30.9 pg (25-34); Mean Corpuscular Hgb Conc 33.1 g/dL (32-36); Mean Corpuscular Volume 93.2 fL (80-100); Mean Platelet Volume 10.3 fL (7.4-10.4); Monocytes # (auto) 0.43 K/uL (0.11-0.59); Monocytes % (auto) 3.2 %; Neutrophils # (auto) 11.63 K/uL (1.4-6.5); Neutrophils % (auto) 87.2 %; Platelet Count 215 K/uL (130-400); RDW Coefficient of Variation 15.9 % (11.5-14.5); Red Blood Count 3.24 M/uL (4.7-6.1); White Blood Count 13.35 K/uL (4.8-10.8)
[2020-02-02] MEDS ORDERED: ASPIRIN 81 MG ECTAB PO SCH (09:00)
[2020-02-02] MEDS ORDERED: ATORVASTATIN 40 MG TAB PO SCH ×2 (09:00→21:00)
[2020-02-02] MEDS ORDERED: FLUTICASONE/VILANTEROL 100/25MCG 14 PUFFS/INHALER INH SCH (09:00)
[2020-02-02] MEDS ORDERED: amLODIPine BESYLATE 5 MG TAB PO SCH (09:00)
[2020-02-02] MEDS ORDERED: PANTOprazole 40 MG TAB PO SCH (09:00)
[2020-02-02] MEDS ORDERED: CLOPIDOGREL BISULFATE 75 MG TAB PO SCH (09:00)
[2020-02-02] MEDS ORDERED: hydrALAZINE 10 MG TAB PO SCH (09:00)
[2020-02-02] MEDS ORDERED: VITAMIN B COMPLEX TAB PO SCH (09:00)
[2020-02-02] MEDS ORDERED: INSULIN GLARGINE SOLOSTAR 100 UNITS/ML 3 ML PEN SC SCH (09:00)
[2020-02-02] MEDS ORDERED: MONTELUKAST SODIUM 10 MG TABLET PO SCH (09:00)
[2020-02-02] MEDS: METOPROLOL TARTRATE 50 MG TAB PO SCH (09:10)
[2020-02-02] MEDS: HEPARIN SOD 5,000 UNIT/0.5 ML VIAL SQ SCH (09:11)
[2020-02-02 09:12] LABS: Creatinine Clr Calc Pharmacy 5.1 ml/min; Est GFR (African American) 2.6; Est GFR (Non-African American) 2.3; Potassium 4.7 mmol/L (3.5-5.1)
[2020-02-02] MEDS: INSULIN ASPART 100 UNITS/ML 3 ML PEN SC SCH (09:12)
[2020-02-02] MEDS: CALCIUM CARBONATE 500 MG CHEWABLE TAB PO SCH ×2 (09:12→12:02)
[2020-02-02 09:18] LABS: Phosphorus 12.6 mg/dl (2.5-4.9)
--- NOTE | 2020-02-02 10:43 | Nephrology Consultation ---
Date of Consultation February 02, 2020 Assessment & Plan (1) ESRD (end stage renal disease) on dialysis: 49 yom with ESRD, recent transition to PD from hemodialysis, admit with recent history of pneumonia, shortness of breath increased oxygen requirement as well generalized weakness. has been doing dialysis regularly although BUN creatinine was significantly elevated, in the setting recent transition to PD. phosphate is elevated patient admits taking binder only once a day or less in stead 3 times a day. -- We will continue on PD with dwell time 90 minutes. -- start on Tums 3 tabs with each meal, discussed with patient about the importance of taking binders regularly -- dose medications for GFR less than 10 -- left arm a/c tech precaution ( AVF) will follow Thank you for allowing me to participate in your patient's care. It was a pleasure to see Ryan (2) Anemia of chronic disease: (3) Diarrhea: (4) Hyperphosphatemia: History of Present Illness Attending Physician: Lindsay Morgan, History of Present Illness Ryan Walker is a 48 year old male with PMH of ESRD, DM, HTN, hyperlipidemia, ASCVD s/p stenting x 2, KISHAN, former smoker on O2 at 2L/min [place] admitted to hospital with diarrhea, generalized weakness and history pneumonia 2 weeks ago with persistent SOb and increased O2 requirement. Nephrology consult was requested to manage ESRD while inpatient. Ryan presented to ER yesterday with diarrhea, and fatigue and h/o inpatient stay at [facility] 2 weeks ago with concern for pneumonia. He stopped antibiotic after 4 days total because GI side including diarrhea which persisted after stopping the antibiotic. Chest x-ray showed b/l pleural effusion and possible pulmonary congestion. Has ESRD secondary to diabetic nephropathy, he was on hemodialysis since 2018, has functioning brachiocephalic AV fistula. , 3 weeks ago he was transitioned to PD, has been doing dialysis regularly at any complications. Admission lab showed significantly elevated BUN and creatinine as well as high phosphate he admits noncompliance with phosphate binder. Had PD last night and had 2.8 liters UF. Follows with [facility] for transplant evaluation however currently he is inactive because recent multiple episodes of pneumonia requiring hospital admission. This morning his mainly complaining of left hip pain which he has been having for last few months and has appointment scheduled to see orthopedics surgeon in [place]. denies any episode of shortness of breath. Allergies Allergy/AdvReac Type Severity Reaction Status Date / Time codeine Allergy Mild DELIRIUM,ME Verified 02/01/20 09:42 AN tramadol Allergy Mild nausea and Verified 02/01/20 09:42 vomiting Home Medications Medication Instructions Recorded Confirmed Type aspirin 81 mg PO QAM 05/06/18 02/01/20 History clopidogrel [Plavix] 75 mg PO QAM 04/05/19 02/01/20 History metoprolol tartrate [Lopressor] 50 mg PO BID 04/05/19 02/01/20 History albuterol sulfate 90 mcg/actuation 2 puffs INH Q6H PRN #18 gm 07/02/19 02/01/20 Rx aerosol inhaler atorvastatin 40 mg tablet 40 mg PO HS 09/04/19 02/02/20 History omeprazole 20 mg PO DAILY #30 cap 09/29/19 02/01/20 Rx insulin glargine U-300 conc 300 50 unit SUBCUT QAM #4.5 ml 10/06/19 02/01/20 Rx unit/mL (1.5 mL) subcutaneous pen amlodipine 10 mg tablet 10 mg PO QAM #90 tab 10/30/19 02/01/20 Rx montelukast 10 mg tablet 10 mg PO QAM #90 tab 11/14/19 02/01/20 Rx hydralazine 10 mg tablet 10 mg PO DAILY tab 12/04/19 02/01/20 History vitamin B complex with C-folic 1 tab PO DAILY 12/04/19 02/01/20 History acid 0.8 mg-zinc citrate 50 mg tablet fluticasone furoate 100 1 ea INHALATION DAILY #1 ea 01/30/20 02/01/20 Rx mcg-vilanterol 25 mcg/dose inhalation powder pen needle, diabetic 31 gauge x #100 ea 01/30/20 02/01/20 Rx 3/16" carvedilol 12.5 mg PO BID 02/01/20 02/01/20 History Patient History Medical History Acute on chronic diastolic CHF (congestive heart failure) Anemia of chronic disease CAD (coronary artery disease) Carotid artery stenosis CHF (congestive heart failure) Chronic diastolic heart failure Chronic hypoxemic respiratory failure Diabetes mellitus type 2, uncontrolled Diabetic retinopathy 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) Repaired s/p PPV, MP, EL (SNT) Diverticular disease Dyspnea on exertion Elevated troponin ESRD (end stage renal disease) on dialysis dialysis sun-sun-sun is getting dialysis sat prior to colonoscopy 09/29/2019 and will have it again after on sunday09/30/2019 Hyperlipidemia Hypertension Nuclear sclerosis of both eyes Obesity (BMI 30-39.9) Obstructive sleep apnea cpap on 2L N/C On home oxygen therapy 2L N/C at all times Pleural effusion, bilateral 11/2018 Presence of arteriovenous fistula for hemodialysis left forearm Secondary pulmonary hypertension Syncope Vitreous hemorrhage of right eye due to diabetes mellitus (12/04/18) Surgical History History of cardiac cath X 2 - 11/2017 - [facility] - SOB - 1 stent placed - follows w/ Dr. Zuniga - 2015 - [facility] - SOB - 1 stent placed History of colonoscopy History of foot surgery left x 4 History of heart artery stent X2 History of placement of chest tube left lung for pleural effusion 11/2018 History of tooth extraction all teeth S/P arteriovenous (AV) fistula creation 04/2016 Dr. Mena placed Family History Mother Diabetes Coronary heart disease Heart disease Hypertension Stroke Father Diabetes Coronary heart disease Heart disease Myocardial infarction Hypertension Stroke Other Kidney disease No family history of adverse response to anesthesia Denies family history of Ovarian cancer Prostate cancer Breast cancer Lung cancer Colorectal cancer Social History Smoking Status: Never smoker Second Hand Exposure: No; Hx Alcohol Use: No Hx Substance Use: No Preferred Language: Kinyarwanda Communication Ability: Effective Visual Impairment: Limited Hearing Ability: Normal Broadcast Operations Technician Required: No Beliefs That Will Affect Care: None marital status: Life Partner Current Living Situation: Significant Other current occupational status: disabled Other Information That Helps Us Care for You: No Feels Safe at Home: Yes Safety Concerns: Feels Safe At This Time Childhood Exposure to Second-Hand Smoke: Yes caffeine: No during the past year weight has: remained stable Dental Care, Regularly: No Physical Activity Frequency: 1-2 Times per Week Physical Activity Frequency Comment: walk Seatbelt Use: always Sunscreen Use: No Assistive Devices: None Review of Systems Review of Systems: All systems reviewed & are unremarkable except as noted in HPI & below Physical Exam Constitutional: WD/WN, vitals as above no acute distress Eyes: PERRL, conjunctivae normal, anicteric sclerae ENMT: external ear and nose normal, oropharynx normal Ears: no hearing impairment Neck: trachea midline Respiratory: normal respiratory effort, lungs clear to auscultation no cough Auscultation: no crackles and no wheezes Cardiovascular: RRR, no murmur, no edema Gastrointestinal (Abdomen): normal bowel sounds, soft, nontender, no hepatosplenomegaly Percussion/Palpation: abdomen nontender, no guarding and abdomen not rigid Musculoskeletal: Extremities: extremities normal to inspection Gait: normal gait Skin: no rashes, warm and dry Neurologic: awake; no focal motor deficits and not confused Psychiatric: A+Ox3, euthymic affect Results & Data ([facility]) Vital Signs (Past 12 Hours) Vital Signs Temp Pulse Resp BP BP Pulse Ox 02/02/20 08:00 36.5 C 79 18 02/02/20 07:33 36.5 C 79 18 163/83 H 93 02/01/20 22:53 36.7 C 68 20 169/86 H 94 PG Care Time/CCT Total # of Minutes Spent Total Time Spent with Patient: Total time spent is greater than 50% in coordination of care (as documented) at patient's floor/unit and/or counseling patient: Coding Level of Care Code 73571 Inpt Consult Level 5 Diagnoses ESRD (end stage renal disease) on dialysis N18.6; Z99.2 Anemia of chronic disease D63.8 Diarrhea R19.7 Hyperphosphatemia E83.39
[2020-02-02] MEDS ORDERED: Nursing to Pharmacy Communication SCH (11:30)
[2020-02-02] MEDS ORDERED: ACETAMINOPHEN 325 MG TAB PO PRN (11:36)
--- NOTE | 2020-02-02 13:10 | Discharge Summary ---
Date of Service February 02, 2020 Admission HPI Per Admitting Provider This is a pleasant 49 yo male who has ESRD, hypertension, chronic diastolic heart failure, obestiy. Patient comes in with about a 2 week history of generalized weakness and diarrhea. Patient was recently admitted in [facility] for possible community acquired pneumonia. Chest -x-ray showed possible left lower lobe opacity vs atelectasis. Patient was discharged to complete 2 more days of antibiotics, however patient only completed one. Patient was also discharged on a steroid taper. Patient reports once he was home, he began developing diarrhea, and he attributed this to his antibiotics. He stopped and did not complete his 2nd day of antibiotics at home. Patient reports he feels generalized malaise, has a poor appetite, and is intermittently nauseated. He also recently stated peritoneal dialysis. He is know with [facility], however, he now follows with a different Nephro group. Patient comes in to the hospital due to diarrhea, and weakness. Principal Diagnosis Pt feels he is at his usual and is asking to go home. He has been OOB and states he walked "the lap" around the floor without SOB. Tolerating PO without issue. No further diarrhea. He feels his weakness has resolved. Pt denies fever, chest pain, abd pain, n/v, LE pain or swelling. He has his ongoing b/l hip pain, but this is no different than usual. He is asking for tylenol for this as he takes this at home for this issue. He states he was given morphine in the ED but this just made all of his joints hurt. Discharge Exam Constitutional WD/WN, vitals as above Eyes normal visual jacinto by confrontation and + anicteric sclerae Neck normal visual inspection and trachea midline Respiratory normal respiratory effort, lungs clear to auscultation Cardiovascular Rate/Rhythm: regular rate and regular rhythm Gastrointestinal (Abdomen) Inspection/Auscultation: abdomen not distended Percussion/Palpation: abdomen soft; abdomen nontender Musculoskeletal Head/Neck/Chest: normocephalic and head atraumatic Skin no rashes, warm and dry Neurologic awake; not confused Speech / Cognition: normal speech Psychiatric A+Ox3, euthymic affect Discharge Data Allergies Allergy/AdvReac Type Severity Reaction Status Date / Time codeine Allergy Mild DELIRIUM,ME Verified 02/01/20 09:42 AN tramadol Allergy Mild nausea and Verified 02/01/20 09:42 vomiting Consultations 02/01/20 11:42 ED Decision to Admit Stat 02/01/20 13:19 Consult Nephrology Routine Ordered Studies 02/01/20 09:28 CT abd pelvis wo con Stat Hospital Course (1) Hypoxia: Patient has been on 3 liters since discharge in late December. Patient completed about 4 days of antibiotics, however unsure if patient truly had pneumonia. Diff. diagnosis: atelectasis vs pleural effusion. AM labs WNL, procal WNL, no abx needed on d/c will place on round the clock nebs for [address] chest in AM, however pt states no further breathing issues Blood cx drawn on admission, pending on d/c COVID testing neg on admission (2) Leukocytosis: likely secondary to steroids. procal normal despite having ESRD. (3) Diarrhea: Patient's main complaint was diarrhea on admission and this has since resolved He had one loose stool while here. Stool cx and cdiff testing neg (4) End-stage renal disease on hemodialysis: Now on peritoneal dialysis (5) Restrictive lung disease secondary to obesity: appears at baseline. will continue home meds (6) Chronic diastolic heart failure: appears euvolemic. (7) Obesity (BMI 30-39.9): recommend life style modifcation (8) Hyperlipidemia: stable resume home meds (9) Diabetes mellitus type 2, uncontrolled: return to home regimen (10) Hyperphosphatemia: Renal recs for TUMS with all meals as noted below Total Time Total Time Spent Total Time Spent (In Minutes): >30 Total Time Includes: Examination of the Patient, Discharge Planning, Medication Reconciliation, Communication With Other Providers and Other Discharge Plan Discharge Items Patient Disposition: Home - Self-Care Reason For Visit: HYPOXIA, ESRD Discharge Diagnosis: Hypoxia Activity: Resume your previous activity Non-emergency contact: Primary Care Provider and [place] Call non-emergency contact if: you have any medication questions and your symptoms worsen Follow-up/Referrals: Francisco Ngo CRNP [Primary Care Provider] - 02/10/20 8:20 am Diet: Carb Consistent or DM2 and Dialysis Renal Addtl Attending Provider Instructions: You should be seen by your primary care in the next 2-3 days for a follow up You should continue your dialysis as you were doing at home prior to admission Pending Studies at Discharge: Yes Studies:: Blood cultures Stand-Alone Forms: My [facility], Smoking Cessation Medications and DC Order Prescriptions: New calcium carbonate [Tums] 200 mg calcium (500 mg) Tablet,Chewable 1,500 mg PO TIDM Qty: 90 RF: 0 Continued albuterol sulfate [Ventolin HFA] 90 mcg/actuation HFA aerosol inhaler 2 puffs INH Q6H PRN (Reason: Shortness Of Breath Or Wheezing) Qty: 18 RF: 0 Toujeo SoloStar U-300 Insulin 300 unit/mL (1.5 mL) insulin pen 50 unit subcut QAM Qty: 4.5 RF: 5 amlodipine [Norvasc] 10 mg tablet 10 mg PO QAM Qty: 90 RF: 1 montelukast 10 mg tablet 10 mg PO QAM Qty: 90 RF: 1 (DME) pen needle, diabetic [Easy Comfort Pen [place]] 31 gauge x 3/16" needle See Rx Instructions .ROUTE .MEDSUPPLY Qty: 100 RF: 3 Breo Ellipta 100-25 mcg/dose blister with device 1 ea inhalation DAILY Qty: 1 RF: 3 atorvastatin 40 mg tablet 40 mg PO HS RF: 0 hydralazine 10 mg tablet 10 mg PO DAILY RF: 0 Dialyvite 800 with Zinc 50 0.8-50 mg tablet 1 tab PO DAILY RF: 0 clopidogrel [Plavix] 75 mg tablet 75 mg PO QAM RF: 0 metoprolol tartrate [Lopressor] 50 mg tablet 50 mg PO BID RF: 0 aspirin 81 mg Tablet,Chewable 81 mg PO QAM RF: 0 omeprazole 20 mg capsule,delayed release(DR/EC) 20 mg PO DAILY Qty: 30 RF: 5 carvedilol 12.5 mg tablet 12.5 mg PO BID RF: 0 Discharge Orders: Discharge Order (Routine); Ordered 02/02/20 Ordered By: Lindsay Durbin/Other Patient Handouts: Calcium Carbonate chewable tablets Admission Data Admit Date/Time: 02/01/20 13:15 Attending Provider: Lindsay Morgan Admit Provider: Sharad Mojica Primary Care Provider: Francisco Ngo Other Providers: Sharad Mojica ; Veronica Webster Other Interventions: Discharge Summary Assessment (RN) Last Done: 02/02/20 13:03 Coding Level of Care Code D/C Day Management >30 mins Diagnoses Hypoxia R09.02 Leukocytosis D72.829 Diarrhea R19.7 End-stage renal disease on hemodialysis N18.6; Z99.2 Restrictive lung disease secondary to obesity J98.4; E66.9 Chronic diastolic heart failure I50.32 Obesity (BMI 30-39.9) E66.9 Hyperlipidemia E78.5 Diabetes mellitus type 2, uncontrolled E11.65 Glycemic state: with hyperglycemia Hyperphosphatemia E83.39
[2020-02-03] MEDS ORDERED: INSULIN GLARGINE SOLOSTAR 100 UNITS/ML 3 ML PEN SC SCH (09:00)
== END 2020-02-02 13:53 | disposition home or self-care (01) ==
LOC: 3W 08:31 → ED 08:31 → SUATTDRO 13:15 → 3W 15:09

== ENCOUNTER 2021-04-07 08:39 | Inpatient (IN) ==
[2021-04-07 09:21] LABS: Basophils # (auto) 0.03 K/uL (0-0.2); Basophils % (auto) 0.4 %; Eosinophils # (auto) 0.15 K/uL (0-0.5); Eosinophils % (auto) 1.8 %; Hemoglobin 11.7 g/dL (14.0-18.0); Immature Granulocytes # (auto) 0.02 K/uL (0.00-0.02); Immature Granulocytes % (auto) 0.2 %; Lymphocytes # (auto) 0.84 K/uL (1.2-3.4); Lymphocytes % (auto) 10.3 %; Mean Corpuscular Hemoglobin 30.8 pg (25-34); Mean Corpuscular Hgb Conc 31.6 g/dL (32-36); Mean Corpuscular Volume 97.4 fL (80-100); Mean Platelet Volume 10.4 fL (7.4-10.4); Monocytes # (auto) 0.79 K/uL (0.11-0.59); Monocytes % (auto) 9.7 %; Neutrophils # (auto) 6.32 K/uL (1.4-6.5); Neutrophils % (auto) 77.6 %; Platelet Count 144 K/uL (130-400); RDW Coefficient of Variation 16.1 % (11.5-14.5); RDW Standard Deviation 57.6 fL (36.4-46.3); White Blood Count 8.15 K/uL (4.8-10.8)
[2021-04-07 09:37] LABS: Partial Thromboplastin Ratio 1.1; Partial Thromboplastin Time 29.2 Seconds (21.0-31.0); Prothrombin Time 10.6 Seconds (9.0-12.0)
[2021-04-07 09:48] LABS: Troponin I 0.07 ng/ml (0-0.04)
[2021-04-07 10:06] LABS: Albumin Globulin Ratio 1.5 (0.9-2); Albumin Level 4.1 gm/dl (3.4-5.0); Bilirubin,Total 0.8 mg/dl (0.2-1.0); Calcium 7.7 mg/dl (8.5-10.1); Creatinine Clr Calc Pharmacy 16.2 ml/min; Est GFR (African American) 10.9 ml/min; Est GFR (Non-African American) 9.4 ml/min; Globulin 2.8 gm/dl (2.5-4.0); Magnesium 1.8 mg/dl (1.7-2.4); Potassium 4.4 mmol/L (3.5-5.1); Total Protein 6.9 gm/dl (6.0-8.3)
--- NOTE | 2021-04-07 11:04 | Emergency Department Note ---
History of Present Illness General Chief complaint: Shortness of Breath/Dyspnea Stated complaint: CHEST DISCOMFORT, SOB, WEAKNESS Time Seen by Provider: 04/07/21 09:44 Source: patient Mode of arrival: ambulatory Limitations: no limitations History of Present Illness Provider complaint: dyspnea on exertion, syncope Onset (ago): month(s) Maximum Pain Intensity: 6 Associated symptoms: + shortness of breath and + syncope; no chest pain, no cough, no fever/chills, no headaches or no loss of appetite This is a 50-year-old male presents emergency department complaining of increased dyspnea on exertion. Patient states symptoms began back in the fall and have been steadily worsening. Patient did have Covid back in December, was hospitalized, however felt his other symptoms had resolved. He states he was on chronic home oxygen even prior to Covid however since his COVID admission he has required increased oxygen at home. Patient states in the midst of this he has had 2 syncopal events secondary to dyspnea on exertion. He did follow-up with his PCP who sent him for an outpatient chest x-ray, echo, and carotid Doppler. He states he was also referred to a vascular specialist. Patient has had 2 prior cardiac stents and does go to hemodialysis. Patient denies any other medication changes. Patient denies any history of smoking, states he did use chewing tobacco for 37 years. 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 Pt seen during a time of high acuity and national emergency pandemic while wearing PPE. Home Medications Medication Instructions Recorded Confirmed Type aspirin 81 mg chewable tablet 81 mg PO QAM 05/06/18 04/07/21 History clopidogrel 75 mg tablet (Plavix) 75 mg PO QAM 04/05/19 04/07/21 History metoprolol tartrate 50 mg tablet 50 mg PO BID 04/05/19 04/07/21 History (Lopressor) albuterol sulfate 90 mcg/actuation 2 puffs INH Q6H PRN #18 gm 07/02/19 04/07/21 Rx aerosol inhaler (Ventolin HFA) atorvastatin 40 mg tablet 40 mg PO HS 09/04/19 04/07/21 History omeprazole 20 mg capsule,delayed 20 mg PO DAILY #30 cap 09/29/19 04/07/21 Rx release fluticasone furoate 100 1 ea INHALATION DAILY #1 ea 01/30/20 04/07/21 Rx mcg-vilanterol 25 mcg/dose inhalation powder (Breo Ellipta) acetaminophen 325 mg capsule 650 mg PO Q6H PRN 08/24/20 04/07/21 History (Tylenol) amlodipine 10 mg tablet (Norvasc) 10 mg PO QAM #90 tab 12/02/20 04/07/21 Rx hydralazine 25 mg tablet 25 mg PO BID #60 tab 12/02/20 04/07/21 Rx blood sugar diagnostic #50 ea 12/07/20 04/07/21 Rx cholecalciferol (vitamin D3) 25 25 mcg PO DAILY 01/11/21 04/07/21 History mcg (1,000 unit) capsule insulin glargine U-300 conc 300 33 unit SUBCUT QAM ml 01/11/21 04/07/21 History unit/mL (1.5 mL) subcutaneous pen (Toujeo SoloStar U-300 Insulin) miscellaneous medical supply 1 ea MISCELLANEOUS DAILY #1 ea MDD 03/08/21 04/07/21 Rx 4 lpm montelukast 10 mg tablet 10 mg PO QAM #90 tab 03/10/21 04/07/21 Rx pen needle, diabetic 31 gauge x #100 ea 03/11/21 04/07/21 Rx 3/16" (Easy Comfort Pen [place]) Allergies Allergy/AdvReac Type Severity Reaction Status Date / Time codeine Allergy Mild DELIRIUM,ME Verified 04/07/21 11:01 AN tramadol Allergy Mild nausea and Verified 04/07/21 11:01 vomiting Past Med/Surg History Medical History (Updated 04/07/21 @ 17:25 by Ilene Degroot DO) Acute on chronic diastolic CHF (congestive heart failure) Anemia of chronic disease Arthritis CAD (coronary artery disease) 08/2015- L Cx stent; 11/2017- RCA stent, L Cx stent patent; 07/2019- LM wnl, prox-mid LAD 30%, mid-L Cx stent patent, RCA stent stent with area between stents 30-40%. Sees [facility], Dr Sharad Norton. 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) Repaired s/p PPV, MP, EL (SNT) Diverticular disease Elevated troponin ESRD (end stage renal disease) on dialysis dialysis sun-sun-sun is getting dialysis sat prior to colonoscopy 09/29/2019 and will have it again after on sunday09/30/2019 Hyperkalemia Hyperlipidemia Hypertension Moderate pulmonary hypertension Nuclear sclerosis of both eyes Obstructive sleep apnea cpap on 2L N/C On home oxygen therapy 2L N/C at all times Osteoarthritis, hip, bilateral Pleural effusion, bilateral 11/2018 Pneumonia Presence of arteriovenous fistula for hemodialysis left forearm Secondary pulmonary hypertension Syncope Vitreous hemorrhage of right eye due to diabetes mellitus (12/04/18) Surgical History History of cardiac cath X 2 - 11/2017 - [facility] - SOB - 1 stent placed - follows w/ Dr. Zuniga - 2015 - [facility] - SOB - 1 stent placed History of colonoscopy History of foot surgery left x 4 History of heart artery stent X2 History of placement of chest tube left lung for pleural effusion 11/2018 History of tooth extraction all teeth S/P arteriovenous (AV) fistula creation 04/2016 Dr. Mena placed Family History Mother Diabetes Coronary heart disease Heart disease Hypertension Stroke Father Diabetes Coronary heart disease Heart disease Myocardial infarction Hypertension Stroke Other Kidney disease No family history of adverse response to anesthesia Denies family history of Ovarian cancer Prostate cancer Breast cancer Lung cancer Colorectal cancer Social History (Updated 04/07/21 @ 11:23 by John Otero) Smoking Status: Never smoker Second Hand Exposure: No; Do You Dip or Chew Tobacco: No (former); Tobacco Cessation Education Requested by Patient: No Hx Alcohol Use: No Hx Substance Use: No Preferred Language: Turkmen Communication Ability: Effective Visual Impairment: Limited Hearing Ability: Normal [employer] Counter Person Required: No Beliefs That Will Affect Care: None marital status: Single Current Living Situation: Significant Other Current Living Situation Comment: lives with significant other near [place] current occupational status: disabled How many Children do You have: 0 Other Information That Helps 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 Safe at Home: Yes Safety Concerns: Feels Safe At This Time Childhood Exposure to Second-Hand Smoke: Yes caffeine: No during the past year weight has: remained stable Dental Care, Regularly: No Physical Activity Frequency: 1-2 Times per Week Physical Activity Frequency Comment: walk Seatbelt Use: always Sunscreen Use: No Assistive Devices: Oxygen - Continuous Review of Systems A total of 10 systems reviewed and were otherwise negative All systems reviewed & are unremarkable except as noted in HPI & below Physical Exam Vital Signs Vital Signs - 24 hr 04/07/21 08:45 04/07/21 09:46 04/07/21 11:00 Temperature 36.2 C L Temperature Source Temporal Artery Scan Pulse Rate - Lying Pulse Rate - Sitting Pulse Rate - Standing Pulse Rate 58 L Pulse Rate [Right Finger] 57 L 56 L Pulse Rhythm Regular Pulse Rhythm [Right Finger] Regular Regular Pulse Strength Normal Pulse Strength [Right Finger] Normal Normal Respiratory Rate 22 23 22 Respiratory Effort / Characteristics Non-Labored Spontaneous Labored Non-Labored Spontaneous Respiratory Depth Normal Normal Normal Respiratory Pattern Regular Regular Regular Blood Pressure - Lying Blood Pressure - Sitting Blood Pressure- Standing Blood Pressure 172/88 H Blood Pressure [Right Arm] 180/84 H Blood Pressure Mean 116 Blood Pressure Mean [Right Arm] 116 Blood Pressure Position Sitting Blood Pressure Position [Right Arm] Sitting Pulse Oximetry 96 100 100 Oxygen Delivery Method Room Air Nasal Cannula Nasal Cannula Oxygen Flow Rate 4 4 Sepsis Recent Fever Within 48 Hours No Sepsis New/Unexplained Change in Mental Status No Sepsis Action Taken by Nursing No Action Required 04/07/21 11:51 04/07/21 11:59 Temperature Temperature Source Pulse Rate - Lying 56 L Pulse Rate - Sitting 57 L Pulse Rate - Standing 56 L Pulse Rate Pulse Rate [Right Finger] Pulse Rhythm Pulse Rhythm [Right Finger] Pulse Strength Pulse Strength [Right Finger] Respiratory Rate 20 Respiratory Effort / Characteristics Non-Labored Spontaneous Respiratory Depth Respiratory Pattern Blood Pressure - Lying 166/83 H Blood Pressure - Sitting 169/80 H Blood Pressure- Standing 166/77 H Blood Pressure Blood Pressure [Right Arm] Blood Pressure Mean Blood Pressure Mean [Right Arm] Blood Pressure Position Blood Pressure Position [Right Arm] Pulse Oximetry 100 Oxygen Delivery Method Nasal Cannula Oxygen Flow Rate 4 Sepsis Recent Fever Within 48 Hours Sepsis New/Unexplained Change in Mental Status Sepsis Action Taken by Nursing GENERAL: alert, well appearing, well nourished, no distress, non-toxic, oxygen via nasal cannula in place EYE EXAM: normal conjunctiva, PERRL and EOM's grossly intact OROPHARYNX: no exudate, no erythema, lips, buccal mucosa, and tongue normal and mucous membranes are moist NECK: supple, no nuchal rigidity, no adenopathy, non-tender LUNGS: Clear to auscultation. Normal chest wall mechanics, no w/r/r HEART: no murmurs, S1 normal and S2 normal ABDOMEN: abdomen soft, non-tender, normo-active bowel sounds, no masses, no rebound or guarding. BACK: Back is symmetrical on inspection and there is no deformity, no midline tenderness, no CVA tenderness. SKIN: no rashes and no bruising UPPER EXTREMITIES: upper extremities are grossly normal. FROM, nml pulses b/l. Fistula noted distal left upper extremity. LOWER EXTREMITIES: No pitting edema. FROM, nml pulses b/l. NEURO EXAM: Normal sensorium, cranial nerves II-XII grossly intact, normal speech, no gross weakness of arms, no gross weakness of legs. Gross sensation intact. Course Administered Medications Discontinued Medications Amlodipine Besylate (Amlodipine Besylate 5 Mg Tab) 5 mg PO NOW ONE Stop: 04/07/21 13:24 Last Admin: 04/07/21 14:02 Dose: Not Given Documented by: [id number] Insulin Human Regular (Novolin-R Insulin Per Unit Charge) 6 units SC NOW STA Stop: 04/07/21 11:06 Last Admin: 04/07/21 11:52 Dose: Not Given Documented by: [id number] Ioversol (Optiray 320 125ml) 119 ml IV ONCE ONE Stop: 04/07/21 15:11 Last Admin: 04/07/21 15:10 Dose: 119 ml Documented by: [id number] Medical Decision Making Differential Diagnosis Differential diagnoses includes but is not limited to pneumonia, bronchitis, COPD/Asthma exacerbation, pneumothorax, pulmonary embolism, congestive heart failure, acute coronary syndrome Medical Records Attestation: I reviewed the patient's medical records. Home Medications Current Medication List: was personally reviewed by me Laboratory Data Attestation: I reviewed the patient's lab results. Result diagrams: 04/07/21 09:05 04/07/21 09:05 Lab Results 04/07/21 04/07/21 04/07/21 Range/Units 09:00 09:05 09:05 WBC 8.15 (4.8-10.8) K/uL RBC 3.80 L (4.7-6.1) M/uL Hgb 11.7 L (14.0-18.0) g/dL Hct 37.0 L (42-52) % MCV 97.4 (80-100) fL MCH 30.8 (25-34) pg MCHC 31.6 L (32-36) g/dL RDW Std Deviation 57.6 H (36.4-46.3) fL RDW Coeff of Octavio 16.1 H (11.5-14.5) % Plt Count 144 (130-400) K/uL MPV 10.4 (7.4-10.4) fL Immature Gran % (Auto) 0.2 % Neut % (Auto) 77.6 % Lymph % (Auto) 10.3 % [place] % (Auto) 9.7 % Eos % (Auto) 1.8 % Baso % (Auto) 0.4 % Neut # (Auto) 6.32 (1.4-6.5) K/uL Lymph # (Auto) 0.84 L (1.2-3.4) K/uL [place] # (Auto) 0.79 H (0.11-0.59) K/uL Eos # (Auto) 0.15 (0-0.5) K/uL Baso # (Auto) 0.03 (0-0.2) K/uL Immature Gran # (Auto) 0.02 (0.00-0.02) K/uL PT 10.6 (9.0-12.0) Seconds INR 1.0 (0.9-1.1) APTT 29.2 (21.0-31.0) Seconds PTT Ratio 1.1 Sodium (136-145) mmol/L Potassium (3.5-5.1) mmol/L Chloride (98-107) mmol/L Carbon Dioxide (21-32) mmol/L Anion Gap (3-11) BUN (6-23) mg/dl Creatinine (0.6-1.4) mg/dl Est Cr Clr Drug Dosing ml/min Est GFR ( Amer) ml/min Est GFR (Non-Af Amer) ml/min BUN/Creatinine Ratio (10-20) Glucose (70-99(Fasting)) mg/dl Calcium (8.5-10.1) mg/dl Magnesium (1.7-2.4) mg/dl Total Bilirubin (0.2-1.0) mg/dl AST (13-39) U/L ALT (7-52) U/L Alkaline Phosphatase (34-104) U/L Troponin I (0-0.04) ng/ml Total Protein (6.0-8.3) gm/dl Albumin (3.4-5.0) gm/dl Globulin (2.5-4.0) gm/dl Albumin/Globulin Ratio (0.9-2) SARS-CoV-2, RNA, NAAT NEGATIVE (NEGATIVE) 04/07/21 Range/Units 09:05 WBC (4.8-10.8) K/uL RBC (4.7-6.1) M/uL Hgb (14.0-18.0) g/dL Hct (42-52) % MCV (80-100) fL MCH (25-34) pg MCHC (32-36) g/dL RDW Std Deviation (36.4-46.3) fL RDW Coeff of Octavio (11.5-14.5) % Plt Count (130-400) K/uL MPV (7.4-10.4) fL Immature Gran % (Auto) % Neut % (Auto) % Lymph % (Auto) % [place] % (Auto) % Eos % (Auto) % Baso % (Auto) % Neut # (Auto) (1.4-6.5) K/uL Lymph # (Auto) (1.2-3.4) K/uL [place] # (Auto) (0.11-0.59) K/uL Eos # (Auto) (0-0.5) K/uL Baso # (Auto) (0-0.2) K/uL Immature Gran # (Auto) (0.00-0.02) K/uL PT (9.0-12.0) Seconds INR (0.9-1.1) APTT (21.0-31.0) Seconds PTT Ratio Sodium 136 (136-145) mmol/L Potassium 4.4 (3.5-5.1) mmol/L Chloride 92 L (98-107) mmol/L Carbon Dioxide 31 (21-32) mmol/L Anion Gap 13 H (3-11) BUN 31 H (6-23) mg/dl Creatinine 6.23 H* (0.6-1.4) mg/dl Est Cr Clr Drug Dosing 16.2 ml/min Est GFR ( Amer) 10.9 ml/min Est GFR (Non-Af Amer) 9.4 ml/min BUN/Creatinine Ratio 5.0 L (10-20) Glucose 307 H* (70-99(Fasting)) mg/dl Calcium 7.7 L (8.5-10.1) mg/dl Magnesium 1.8 (1.7-2.4) mg/dl Total Bilirubin 0.8 (0.2-1.0) mg/dl AST 15 (13-39) U/L ALT 7 (7-52) U/L Alkaline Phosphatase 179 H (34-104) U/L Troponin I 0.07 H* (0-0.04) ng/ml Total Protein 6.9 (6.0-8.3) gm/dl Albumin 4.1 (3.4-5.0) gm/dl Globulin 2.8 (2.5-4.0) gm/dl Albumin/Globulin Ratio 1.5 (0.9-2) SARS-CoV-2, RNA, NAAT (NEGATIVE) Imaging Data Radiologist's Impression: Chest X-Ray 04/07/21 08:51 XR chest 1V portable CLINICAL HISTORY: Shortness of breath. COMPARISON STUDY: Chest CT April 08, 2019. Chest radiograph February 13, 2020. FINDINGS: No pneumothorax or pleural effusion is present. There is pulmonary vascular congestion without evidence for pulmonary edema. Cardiomegaly is unchanged. There is no consolidation to suggest pneumonia. IMPRESSION: Cardiomegaly with pulmonary vascular congestion. No overt pulmonary edema. ACT 112: Negative or not required by law. Electronically signed by: Manolo Shelton M.D. 04/07/2021 12:45 PM Chest CTA 04/07/21 11:48 CT angio chest PE protocol CLINICAL HISTORY: COVID 01/2021; Dyspnea since then;. Evaluate for pulmonary embolus. Creatinine of 6.2. Patient scheduled for dialysis tomorrow. COMPARISON STUDY: 04/08/2019 and portable chest from 04/07/2021 CT DOSE: 816.17 mGy.cm TECHNIQUE: CT Angio of the chest was performed.followed by image post processing with coronal, and sagittal MIP reformats. Contrast Volume: Optiray 320, 119 ml FINDINGS: Vasculature: There is homogeneous perfusion of the pulmonary vasculature bilaterally. No intraluminal filling defects or evidence for pulmonary embolus is seen. Airway: The airway is clear. No endobronchial lesion is identified. Lungs: Compared to previous study, pulmonary nodule involving the right lower lobe now measures 9 mm when compared to 5 mm on the previous study. This is seen on image 50. There are 2 additional pulmonary nodules also present, one within the right lower lobe on image 128 measuring 5 mm and the second within the posterior segment of the right upper lobe measuring 9 mm as seen on image 172 The lungs are clear of acute alveolar opacities, air bronchograms or other pulmonary nodules. Chronic scarring is seen in the left lung base. Pleura: There is no evidence for pleural effusion. There is no evidence for pneumothorax. Mediastinum: There is no evidence for pathologic adenopathy. Stable prevascular and mediastinal lymph nodes are present. The heart size is within normal limits. There is extensive coronary artery calcification. The thoracic aorta is within normal limits. There is no evidence for pericardial effusion. Upper abdomen:The adrenal glands are normal bilaterally. However, the previously identified low-attenuation lesion within the right lobe of the liver has increased in size now measuring 2.5 cm. It has an adjacent satellite lesion on the current study as well measuring 1.9 cm. These are of concern for possible metastatic disease due to their interval change in appearance. Osseous structures: There is no acute osseous pathology. Impression: 1. No CTA evidence for pulmonary embolus. 2. Interval increase in size of previously identified right lower lobe pulmonary nodule with 2 new pulmonary nodules now seen. Follow-up is recommended utilizing Fleischner criteria. 3. Increased size in low attenuation liver lesion with a second satellite lesion now seen. The findings are suspicious for metastatic disease. 4. Additional nonacute findings are delineated above. Please refer to below summary of Fleischner criteria recommendations for follow- up of incidental CT nodules (Joceline Mar, Guidelines for management of small pulmonary nodules detected on CT scans: A statement from the Fleischner Society, Radiology 237: [phone].) SOLID NODULES Solitary nodule size: <6 mm * low risk patients: no follow-up needed * high risk patients: optional CT at 12 months Solitary nodule size: 6-8 mm * low risk patients: follow-up at 6-12 months, then consider further follow-up at 18-24 months * high risk patients: initial follow-up CT at 6-12 months and then at 18-24 months if no change Solitary nodule size: >8 mm * either low or high risk patients - consider follow-up CT at 3 months, and/or CT-PET, and/or biopsy Multiple nodules size: <6 mm * low risk patients: no routine follow-up * high risk patients: optional CT at 12 months Multiple nodules size: 6-8 mm * low risk patients: follow-up at 3-6 months, then consider further follow-up at 18-24 months * high risk patients: follow-up at 3-6 months, then at 18-24 months if no change Multiple nodules size: >8 mm * low risk patients: follow-up at 3-6 months, then consider further follow-up at 18-24 months * high risk patients: follow-up at 3-6 months, then at 18-24 months if no change Note: newly detected indeterminate nodule in persons 35 years of age or older. * low risk patients: minimal or absent history of smoking and/or other known risk factors * high risk patients: history of smoking or of other known risk factors (e.g. first degree relative with lung cancer, or exposure to asbestos, radon, uranium) * if a nodule up to 8 mm is partly solid or is ground glass further follow-up is required after 24 months to exclude possible slow growing adenocarcinoma (MARIA ANTONIA) SUBSOLID NODULES Solitary pure ground-glass nodule * nodule size <6 mm - no CT follow-up required * nodule size >=6 mm - follow-up CT at 6-12 months, then every 2 years until 5 years Solitary part-solid nodule * nodule size <6 mm - no CT follow-up required * nodule size >=6 mm - follow-up CT at 3-6 months. If unchanged, and solid component remains <6 mm, then annual follow-up for 5 years Multiple subsolid nodules * nodule size <6 mm - follow-up CT at 3-6 months, consider further follow-up at 2 and 4 years if stable * nodule size >=6 mm - follow-up CT at 3-6 months, subsequent management based on the most suspicious nodule(s) ACT 112: Negative or not required by law. Electronically signed by: Bhupendra Fields M.D. 04/07/2021 3:36 PM ECG Data Attestation: I personally reviewed and interpreted this ECG as follows: Indication: + SOB/dyspnea Rate (beats per minute): 60 Rhythm: + normal sinus ECG Intervals/blocks: + Normal QRS and + Prolonged QT ECG Summers: + Normal ECG ST segments: + Nonspecific ST abnormalities MDM Narrative This is a 50-year-old male presents with concern for worsening dyspnea on exertion and recent outpatient episode of syncope. Patient has been following with his PCP was been sending him for additional outpatient tests including cardiology evaluation, chest x-ray, echo, and carotid Doppler. Patient with extensive past medical history. Patient does wear chronic oxygen, and states ever since having Covid he is required more oxygen than usual. Patient does go to dialysis Sunday and Sunday. I was able to obtain with the assistance of case management several of the patient's outpatient records. Due to worsening symptoms, complicated past medical history and concern for possible cardiac etiology of his dyspnea with exertion, case discussed with hospitalist for additional evaluation and management. No acute EKG changes to suggest ACS. Patient was given subcu insulin due to the hyperglycemia noted. I suspect other lab abnormalities are chronic given CKD on HD. I suspect troponin more likely related to chronic kidney disease then ACS. An order was placed for continuous cardiac monitoring. The monitor shows a rate of _60__ with __normal sinus_ rhythm. Impression & Plan FLORIAN (dyspnea on exertion), Moderate pulmonary hypertension, Syncope, Elevated troponin, Diabetes mellitus type 2, uncontrolled, Chronic kidney disease (CKD) Discharge Plan Visit Data Chief Complaint: Shortness of Breath/Dyspnea Stated Complaint: CHEST DISCOMFORT, SOB, WEAKNESS ED Provider: Ilene Degroot Discharge Problem: FLORIAN (dyspnea on exertion), Moderate pulmonary hypertension, Syncope, Elevated troponin, Diabetes mellitus type 2, uncontrolled, Chronic kidney disease (CKD) Patient Disposition: Admitted As Inpatient Discharge Instructions Interventions: ED Discharge Assessment Last Done: 04/07/21 15:51 Discharge Problem: Syncope Qualifiers: Syncope type: unspecified Qualified Code(s): R55 - Syncope and collapse Diabetes mellitus type 2, uncontrolled Qualifiers: Glycemic state: with hyperglycemia Qualified Code(s): E11.65 - Type 2 diabetes mellitus with hyperglycemia Chronic kidney disease (CKD) Qualifiers: Chronic kidney disease stage: on chronic dialysis Qualified Code(s): N18.6 - End stage renal disease
[2021-04-07] MEDS ORDERED: NovoLIN-R INSULIN PER UNIT CHARGE SC STA (11:05)
--- NOTE | 2021-04-07 11:28 | History & Physical Report ---
Date of Service April 07, 2021 Assessment & Plan (1) Dyspnea on exertion: Plan: Patient has had chronic hypoxic respiratory failure for several years. By report he had had a chest tube in the past on the left side for recurrent pleural effusion - managed by Dr Victor Hugo Wall in 2019. He went on O2 around that time. [place] [facility] [place] has been diagnosed with restrictive lung disease and pulmonary HTN but no obstructive disease. Prior to COVID-19 pneumonia in 01/16-02/15 he did have dyspnea on exertion and a 3 L NC O2 requirement. However, since his COVID recovery, he has required 4 L and his dyspnea is much worse and progressive. Little activity leads to dyspnea (e.g. walking 10 feet, walking up a flight of steps, etc). He does get some chest tightness with his dyspnea at times. Differential - post-COVID PEs vs post-COVID pulmonary fibrosis vs coronary ischemia vs other. Plan - * start with CTA chest - r/o PEs; r/o fibrosis; r/o other primary lung pathology * if CTA chest is negative/does not explain his symptoms -- then consult cardiology for consideration of ischemic evaluation * last heart cath was in 07/2019 at [facility] with nonobstructive CAD and patent stents x 2 * continue NC O2 continuously, 4 liters * continue CPAP at for [facility] Of note - he has no evidence of pneumonia clinically on exam today nor evidence of pulmonary edema/volume overload. (2) Syncope: Plan: Multiple episodes of syncope and pre-syncope over the last several weeks at home. He does have prodromal lightheadedness/faint feeling but not consistently. Previous work-up -- * echo - 02/01/21 - [facility] - EF 55-60%, no WMA; no significant valvular heart disease; mild right-sided ventricular dysfunction/cor pulmonale; moderate pulmonary HTN * carotid duplex study - 03/30/21 at [facility] - 50-69% ICA stenosis on right, none on left, antegrade flow through the vertebrals Differential for his syncope - arrhythmia vs severe hypoxia vs PEs vs orthostatic hypotension vs other. He did have PAF at [facility] during his admission for COVID; he is in NSR during his ER stay today. Rapid a.fib or flutter could theoretically cause hypotension then pre-syncope. Doubt the ICA stenosis on the right is causing his symptoms. Check CTA chest - r/o PEs. Check orthostatic BPs. Place on tele - r/o dysrhythmia. (3) History of COVID-19: Plan: 01/16 - 02/15 - 3 day stay at [facility], then 5 days at [facility]. Was on large quantity of HFNC O2 during that stay. Did not require intubation. (4) Chronic respiratory failure with hypoxia, on home O2 therapy: Plan: baseline NC O2 requirement 4 L continuously. on the basis of pulmonary HTN, restrictive lung disease - other factors?? (5) Carotid artery stenosis: Plan: see above 03/2021 study with ICA stenosis on R - 50-69% (6) GERD (gastroesophageal reflux disease): Plan: cont PPI doubt his chest pain / tightness is from GERD (7) End-stage renal disease on hemodialysis: Plan: dialysis schedule M/W/F at [facility] in [place]. 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 [place] [facility] [place] assistance. dry weight = 106 kg (8) Restrictive lung disease secondary to obesity: Plan: dx with such [place] [facility] [place] in the past (9) Obstructive sleep apnea: Plan: on CPAP at home with O2 blended (10) CAD (coronary artery disease): Plan: known CAD. no prior h/o acute NE. s/p caths in 2015, 2017, and 2019. L Cx stent - 2016. RCA stent - 2017. 2020 cath - patent stents. follows with Dr Norton in [place]. cont asa, metoprolol, plavix, statin, amlodipine. nitro prn. may need ischemic evaluation if CTA chest is unrevealing. minimal troponin elevation - suspect 2nd to ESRD status. patient has had no chest pain in the last 2-3 days. EKG without acute ischemic changes today. (11) Diabetes mellitus type 2, uncontrolled: Plan: check a1c in am. BSGs ac/hs. DM diet. cont lantus 30 units daily. novolog ac/hs - start with correction factor 50, carb ratio 1:20. adjust as needed. (12) Hypertension: Plan: check orthostatics given his recent syncope/near-syncope. if not orthostatic, and if BPs remain high, adjust BP meds. (13) Moderate pulmonary hypertension: Plan: seen on echo in 01/2021. (14) DVT prophylaxis: Plan: heparin 5000 BID (15) PAF (paroxysmal atrial fibrillation): Plan: Episodes of PAF while hospitalized for COVID-19 pneumonia in 01/2021. Converted back to NSR? 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 Decision made NOT to continue on eliquis. Tele monitoring while here for a.fib recurrence. (16) Elevated troponin: Plan: scant elevation. no ischemic symptoms at time of presentation. recheck later today for stability. if troponin stays the same suspect 2nd to ESRD status. Plan: plan of care d/w patient's significant other at bedside History of Present Illness Chief Complaint: progressive shortness of breath, syncope Primary Care Provider: CHRIS Zuniga 50yo male with ESRD on HD M/W/F, chronic hypoxic respiratory failure 2nd to restrictive lung disease/pulm HTN on home O2 4 L (previously was on 3 L prior to 2020), carotid artery stenosis, T2DM, HTN, and a.fib who presents with worsening dyspnea. He had COVID-19 over 2020, and ultimately was hospitalized at [facility] for respiratory failure x 5 days. Records suggest he was on large amounts of high-flow NC. At discharge from that stay his O2 was increased to 4 liters. He did have a lingering cough post-COVID but at this point it is only periodic. Since having COVID his symptoms of dyspnea have continued to get worse. Several weeks ago he was outside in the cold fixing his furnace. He was very short of breath and when he walked into his home the dyspnea worsened, then he passed out. He was faint before he passed out that day. He passed out for about 1 minute on the porch. He had no associated chest pain or palpitations. A few minutes later his and a neighbor got him up from the ground, got him to his feet, took just a few steps, then passed out again. 2nd episode lasted <1 minute, but states he was not "coherent" for about 10 minutes following the 2nd episode. states he looked ashen during the 2nd passing out episode. He did not have low blood sugar during this episode. He then spent the rest of the day very tired and sleeping. Since the above he has had near-syncope several times. If he stands too long he feels faint, then he sits down and the symptoms go away. In 2020 he did have perhaps 1-2 episodes of syncope (summer 2020, and fall 2020). He has FLORIAN with walking about 10-15 feet now. He uses CPAP at for [facility], and blends the 4 liters into it. He dialyzes in [place] which is in [facility]. "[facility]" is the nephrology unit. He has been on dialysis for 5 years. Makes no urine/anuric. CKD/ESRD is 2nd to T2DM. 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 Cmo is Dr Mojica. Denies h/o PE/DVT. Allergies Allergy/AdvReac Type Severity Reaction Status Date / Time codeine Allergy Mild DELIRIUM,ME Verified 04/07/21 11:01 AN tramadol Allergy Mild nausea and Verified 04/07/21 11:01 vomiting Home Medications Medication Instructions Recorded Confirmed Type aspirin 81 mg chewable tablet 81 mg PO QAM 05/06/18 04/07/21 History clopidogrel 75 mg tablet (Plavix) 75 mg PO QAM 04/05/19 04/07/21 History metoprolol tartrate 50 mg tablet 50 mg PO BID 04/05/19 04/07/21 History (Lopressor) albuterol sulfate 90 mcg/actuation 2 puffs INH Q6H PRN #18 gm 07/02/19 04/07/21 Rx aerosol inhaler (Ventolin HFA) atorvastatin 40 mg tablet 40 mg PO HS 09/04/19 04/07/21 History omeprazole 20 mg capsule,delayed 20 mg PO DAILY #30 cap 09/29/19 04/07/21 Rx release fluticasone furoate 100 1 ea INHALATION DAILY #1 ea 01/30/20 04/07/21 Rx mcg-vilanterol 25 mcg/dose inhalation powder (Breo Ellipta) acetaminophen 325 mg capsule 650 mg PO Q6H PRN 08/24/20 04/07/21 History (Tylenol) amlodipine 10 mg tablet (Norvasc) 10 mg PO QAM #90 tab 12/02/20 04/07/21 Rx hydralazine 25 mg tablet 25 mg PO BID #60 tab 12/02/20 04/07/21 Rx blood sugar diagnostic #50 ea 12/07/20 04/07/21 Rx cholecalciferol (vitamin D3) 25 25 mcg PO DAILY 01/11/21 04/07/21 History mcg (1,000 unit) capsule insulin glargine U-300 conc 300 33 unit SUBCUT QAM ml 01/11/21 04/07/21 History unit/mL (1.5 mL) subcutaneous pen (Toujeo SoloStar U-300 Insulin) miscellaneous medical supply 1 ea MISCELLANEOUS DAILY #1 ea MDD 03/08/21 04/07/21 Rx 4 lpm montelukast 10 mg tablet 10 mg PO QAM #90 tab 03/10/21 04/07/21 Rx pen needle, diabetic 31 gauge x #100 ea 03/11/21 04/07/21 Rx /" (Easy Comfort Pen [place]) Past Med/Surg History Medical History (Updated 04/07/21 @ 12:39 by John Otero) Acute on chronic diastolic CHF (congestive heart failure) Anemia of chronic disease Arthritis CAD (coronary artery disease) 08/2015- L Cx stent; 11/2017- RCA stent, L Cx stent patent; 07/2019- LM wnl, prox-mid LAD 30%, mid-L Cx stent patent, RCA stent stent with area between stents 30-40%. Sees [facility], Dr Sharad Norton. 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) Repaired s/p PPV, MP, EL (SNT) Diverticular disease Elevated troponin ESRD (end stage renal disease) on dialysis dialysis sun-sun-sun is getting dialysis sat prior to colonoscopy 09/29/2019 and will have it again after on sunday09/30/2019 Hyperkalemia Hyperlipidemia Hypertension Moderate pulmonary hypertension Nuclear sclerosis of both eyes Obstructive sleep apnea cpap on 2L N/C On home oxygen therapy 2L N/C at all times Osteoarthritis, hip, bilateral Pleural effusion, bilateral 11/2018 Pneumonia Presence of arteriovenous fistula for hemodialysis left forearm Secondary pulmonary hypertension Syncope Vitreous hemorrhage of right eye due to diabetes mellitus (12/04/18) Surgical History History of cardiac cath X 2 - 11/2017 - [facility] - SOB - 1 stent placed - follows w/ Dr. Zuniga - 2016 - [facility] - SOB - 1 stent placed History of colonoscopy History of foot surgery left x 4 History of heart artery stent X2 History of placement of chest tube left lung for pleural effusion 11/2018 History of tooth extraction all teeth S/P arteriovenous (AV) fistula creation 04/2016 Dr. Mena placed Family History Mother Diabetes Coronary heart disease Heart disease Hypertension Stroke Father Diabetes Coronary heart disease Heart disease Myocardial infarction Hypertension Stroke Other Kidney disease No family history of adverse response to anesthesia Denies family history of Ovarian cancer Prostate cancer Breast cancer Lung cancer Colorectal cancer Social History (Updated 04/07/21 @ 11:23 by John Otero) Smoking Status: Never smoker Second Hand Exposure: No; Hx Alcohol Use: Yes (drank up until ~2015) Hx Substance Use: No Preferred Language: Yakut Communication Ability: Effective Visual Impairment: Limited Hearing Ability: Normal Stock Blender Required: No Beliefs That Will Affect Care: None marital status: Single Current Living Situation: Significant Other Current Living Situation Comment: lives with significant other near [place] current occupational status: disabled How many Children do You have: 0 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 Feels Safe at Home: Yes Childhood Exposure to Second-Hand Smoke: Yes caffeine: No during the past year weight has: remained stable Dental Care, Regularly: No Physical Activity Frequency: 1-2 Times per Week Physical Activity Frequency Comment: walk Seatbelt Use: always Sunscreen Use: No Assistive Devices: Oxygen - Continuous Review of Systems Review of Systems: gen - no fevers; good appetite; dry weight - 106kg; sweats x 2 nights several weeks ago - none since eyes - last few days/weeks no significant changes in vision HENT - no dysphagia; no sore throat neck - no pain CV - some mild chest pain with heavy exertion; central, "burning" in character; has not tried nitro; pain is similar "somewhat" to when he had pains several years ago when he had coronary stents placed; syncope (see HPI) pulm - intermittent cough, dyspnea on exertion (see HPI) GI - no abdominal pains, vomiting, diarrhea, blood in stool - does not make urine musculo - no myalgias or arthralgias endo - DM - BSGs <175 skin - no rash neuro - no chronic headache; did have headache yesterday - improved today lymph - no swollen glands/lymph nodes Physical Exam Physical Exam: Gen - pleasant, NAD, a/o x 3 Eyes - PERRL HENT - MMM, no lesions neck - no JVD, no obvious bruits, no thyroidmegaly heart - RRR, s1 s2, no murmur or rub lungs - scant, faint dry rales bases, otherwise CTA b/l with good airation; no increased work of breathing abd - soft, NT, ND, BS+, no HSM ext - no edema, pulses 1-2+ b/l vascular - left arm AV fistula with thrill; rad pulses 2+ b/l neuro - no facial droop; strength 5/5 x 4 exts; DTRs 2+ b/l skin - no rash lymph - no cervical lymph nodes b/l psych - a/o x 3, normal affect Results & Data Results & Data ([facility]) Vital Signs (Past 12 Hours) Vital Signs Temp Pulse Pulse Resp BP BP Pulse Ox 04/07/21 09:46 57 L 23 180/84 H 100 04/07/21 08:45 36.2 C L 58 L 22 172/88 H 96 Laboratory Results Laboratory Results - last 24 hr 04/07/21 04/07/21 04/07/21 09:00 09:05 09:05 WBC 8.15 RBC 3.80 L Hgb 11.7 L Hct 37.0 L MCV 97.4 MCH 30.8 MCHC 31.6 L RDW Std Deviation 57.6 H RDW Coeff of Octavio 16.1 H Plt Count 144 MPV 10.4 Immature Gran % (Auto) 0.2 Neut % (Auto) 77.6 Lymph % (Auto) 10.3 Payne % (Auto) 9.7 Eos % (Auto) 1.8 Baso % (Auto) 0.4 Neut # (Auto) 6.32 Lymph # (Auto) 0.84 L Payne # (Auto) 0.79 H Eos # (Auto) 0.15 Baso # (Auto) 0.03 Immature Gran # (Auto) 0.02 PT 10.6 INR 1.0 APTT 29.2 PTT Ratio 1.1 Sodium Potassium Chloride Carbon Dioxide Anion Gap BUN Creatinine Est Cr Clr Drug Dosing Est GFR ( Amer) Est GFR (Non-Af Amer) BUN/Creatinine Ratio Glucose Calcium Magnesium Total Bilirubin AST ALT Alkaline Phosphatase Troponin I Total Protein Albumin Globulin Albumin/Globulin Ratio SARS-CoV-2, RNA, NAAT NEGATIVE 04/07/21 09:05 WBC RBC Hgb Hct MCV MCH MCHC RDW Std Deviation RDW Coeff of Octavio Plt Count MPV Immature Gran % (Auto) Neut % (Auto) Lymph % (Auto) Payne % (Auto) Eos % (Auto) Baso % (Auto) Neut # (Auto) Lymph # (Auto) Payne # (Auto) Eos # (Auto) Baso # (Auto) Immature Gran # (Auto) PT INR APTT PTT Ratio Sodium 136 Potassium 4.4 Chloride 92 L Carbon Dioxide 31 Anion Gap 13 H BUN 31 H Creatinine 6.23 H* Est Cr Clr Drug Dosing 16.2 Est GFR ( Amer) 10.9 Est GFR (Non-Af Amer) 9.4 BUN/Creatinine Ratio 5.0 L Glucose 307 H* Calcium 7.7 L Magnesium 1.8 Total Bilirubin 0.8 AST 15 ALT 7 Alkaline Phosphatase 179 H Troponin I 0.07 H* Total Protein 6.9 Albumin 4.1 Globulin 2.8 Albumin/Globulin Ratio 1.5 SARS-CoV-2, RNA, NAAT Diagnostic Findings EKG - my reading - NSR, QTc mildly prolonged; NS ST changes inferior leads - unchanged from 02/2021 EKG; previous T wave inversions anterior leads - now resolved, T waves upright Code Status & VTE Plan Code Status full code PG Care Time/CCT Total # of Minutes Spent Total Time Spent with Patient: Total time spent is greater than 50% in coordination of care (as documented) at patient's floor/unit and/or counseling patient: Coding Level of Care Code 95842 Initial Inpt Care Lvl 3 Diagnoses Dyspnea on exertion R06.00 Syncope R55 History of COVID-19 Z86.16 Chronic respiratory failure with hypoxia, on home O2 therapy J96.11; Z99.81 Carotid artery stenosis I65.29 GERD (gastroesophageal reflux disease) K21.9 End-stage renal disease on hemodialysis N18.6; Z99.2 Restrictive lung disease secondary to obesity J98.4; E66.9 Obstructive sleep apnea G47.33 CAD (coronary artery disease) I25.10 Associated angina: without angina Coronary Disease-Associated Artery/Lesion type: mi'kmaq artery [place] vs. transplanted heart: mi'kmaq heart Diabetes mellitus type 2, uncontrolled E11.65 Glycemic state: with hyperglycemia Hypertension I10 Moderate pulmonary hypertension I27.20 DVT prophylaxis Z29.9 PAF (paroxysmal atrial fibrillation) I48.0 Elevated troponin R77.8 (1) CAD (coronary artery disease) Associated angina: without angina Coronary Disease-Associated Artery/Lesion type: mi[place]kmaq artery [place] vs. transplanted heart: mi'kmaq heart Qualified Code(s): I25.10 - Atherosclerotic heart disease of mi'kmaq coronary artery without angina pectoris (2) Diabetes mellitus type 2, uncontrolled Glycemic state: with hyperglycemia Qualified Code(s): E11.65 - Type 2 diabetes mellitus with hyperglycemia
--- NOTE | 2021-04-07 12:46 | XRay Report ---
XR chest 1V portable CLINICAL HISTORY: Shortness of breath. COMPARISON STUDY: Chest CT April 08, 2019. Chest radiograph February 13, 2020. FINDINGS: No pneumothorax or pleural effusion is present. There is pulmonary vascular congestion with out evidence for pulmonary edema. Cardiomegaly is unchanged. There is no consolidation to suggest pne umonia. IMPRESSION: Cardiomegaly with pulmonary vascular congestion. No overt pulmonary edema. ACT 112: Negative or not required by law. Electronically signed by: Manolo Shelton M.D. 04/07/2021 12:45 PM
[2021-04-07] MEDS ORDERED: amLODIPine BESYLATE 5 MG TAB PO ONE (13:23)
[2021-04-07] MEDS ORDERED: OPTIRAY 320 125ml IV ONE (15:10)
[2021-04-07] MEDS ORDERED: ALBUTEROL HFA 8 GM INHALER INH PRN (15:15)
[2021-04-07] MEDS ORDERED: ACETAMINOPHEN 325 MG TAB PO PRN (15:15)
[2021-04-07] MEDS ORDERED: NITROGLYCERIN SL 0.4 MG/TAB TAB SL PRN (15:15)
[2021-04-07] MEDS ORDERED: ONDANSETRON INJ 2 MG/ML 2 ML VIAL IV PRN (15:15)
--- NOTE | 2021-04-07 15:38 | CT Scan Report ---
CT angio chest PE protocol CLINICAL HISTORY: COVID 01/2021; Dyspnea since then;. Evaluate for pulmonary embolus. Creatinine of 6 .2. Patient scheduled for dialysis tomorrow. COMPARISON STUDY: 04/08/2019 and portable chest from 04/07/2021 CT DOSE: 816.17 mGy.cm TECHNIQUE: CT Angio of the chest was performed.followed by image post processing with coronal, and s agittal MIP reformats. Contrast Volume: Optiray 320, 119 ml FINDINGS: Vasculature: There is homogeneous perfusion of the pulmonary vasculature bilaterally. No intraluminal filling defects or evidence for pulmonary embolus is seen. Airway: The airway is clear. No endobronchial lesion is identified. Lungs: Compared to previous study, pulmonary nodule involving the right lower lobe now measures 9 mm when compared to 5 mm on the previous study. This is seen on image 50. There are 2 additional pulmona ry nodules also present, one within the right lower lobe on image 128 measuring 5 mm and the second w ithin the posterior segment of the right upper lobe measuring 9 mm as seen on image 172 The lungs are clear of acute alveolar opacities, air bronchograms or other pulmonary nodules. Chronic scarring is seen in the left lung base. Pleura: There is no evidence for pleural effusion. There is no evidence for pneumothorax. Mediastinum: There is no evidence for pathologic adenopathy. Stable prevascular and mediastinal lymph nodes are present. The heart size is within normal limits. There is extensive coronary artery calcif ication. The thoracic aorta is within normal limits. There is no evidence for pericardial effusion. Upper abdomen:The adrenal glands are normal bilaterally. However, the previously identified low-atten uation lesion within the right lobe of the liver has increased in size now measuring 2.5 cm. It has a n adjacent satellite lesion on the current study as well measuring 1.9 cm. These are of concern for p ossible metastatic disease due to their interval change in appearance. Osseous structures: There is no acute osseous pathology. Impression: 1. No CTA evidence for pulmonary embolus. 2. Interval increase in size of previously identified right lower lobe pulmonary nodule with 2 new pu lmonary nodules now seen. Follow-up is recommended utilizing Fleischner criteria. 3. Increased size in low attenuation liver lesion with a second satellite lesion now seen. The findin gs are suspicious for metastatic disease. 4. Additional nonacute findings are delineated above. Please refer to below summary of Fleischner criteria recommendations for follow-up of incidental CT n odules (Joceline Mar, Guidelines for management of small pulmonary nodules detected on CT scans: A deyanira gonsalves from the Fleischner Society, Radiology 237: [phone].) SOLID NODULES Solitary nodule size: <6 mm * low risk patients: no follow-up needed * high risk patients: optional CT at 12 months Solitary nodule size: 6-8 mm * low risk patients: follow-up at 6-12 months, then consider further follow-up at 18-24 months * high risk patients: initial follow-up CT at 6-12 months and then at 18-24 months if no change Solitary nodule size: >8 mm * either low or high risk patients - consider follow-up CT at 3 months, and/or CT-PET, and/or biopsy Multiple nodules size: <6 mm * low risk patients: no routine follow-up * high risk patients: optional CT at 12 months Multiple nodules size: 6-8 mm * low risk patients: follow-up at 3-6 months, then consider further follow-up at 18-24 months * high risk patients: follow-up at 3-6 months, then at 18-24 months if no change Multiple nodules size: >8 mm * low risk patients: follow-up at 3-6 months, then consider further follow-up at 18-24 months * high risk patients: follow-up at 3-6 months, then at 18-24 months if no change Note: newly detected indeterminate nodule in persons 35 years of age or older. * low risk patients: minimal or absent history of smoking and/or other known risk factors * high risk patients: history of smoking or of other known risk factors (e.g. first degree relative with lung cancer, or exposure to asbestos, radon, uranium) * if a nodule up to 8 mm is partly solid or is ground glass further follow-up is required after 24 m onths to exclude possible slow growing adenocarcinoma (MARIA ANTONIA) SUBSOLID NODULES Solitary pure ground-glass nodule * nodule size <6 mm - no CT follow-up required * nodule size >=6 mm - follow-up CT at 6-12 months, then every 2 years until 5 years Solitary part-solid nodule * nodule size <6 mm - no CT follow-up required * nodule size >=6 mm - follow-up CT at 3-6 months. If unchanged, and solid component remains <6 mm, then annual follow-up for 5 years Multiple subsolid nodules * nodule size <6 mm - follow-up CT at 3-6 months, consider further follow-up at 2 and 4 years if sta ble * nodule size >=6 mm - follow-up CT at 3-6 months, subsequent management based on the most suspiciou s nodule(s) ACT 112: Negative or not required by law. Electronically signed by: Bhupendra Fields M.D. 04/07/2021 3:36 PM
[2021-04-07] MEDS ORDERED: CARBOHYDRATES FOR HYPOGLYCEMIA PO PRN (15:45)
[2021-04-07] MEDS ORDERED: GLUCOSE 40% GEL 15 GM TUBE PO PRN (15:45)
[2021-04-07] MEDS ORDERED: GLUCOSE 10 TABS/TUBE PO PRN (15:45)
[2021-04-07] MEDS ORDERED: GLUCAGON FOR INJ 1 MG VIAL IM PRN (15:45)
[2021-04-07] MEDS ORDERED: DEXTROSE 50% 50 ML SYRINGE IV PRN (15:45)
[2021-04-07] MEDS: INSULIN ASPART PER UNIT SC SCH ×2 (18:14→21:49)
[2021-04-07] MEDS: METOPROLOL TARTRATE 50 MG TAB PO SCH (21:46)
[2021-04-07] MEDS: MONTELUKAST SODIUM 10 MG TABLET PO SCH (21:46)
[2021-04-07] MEDS: hydrALAZINE HCL 25 MG TAB PO SCH (21:46)
[2021-04-07] MEDS: ATORVASTATIN 40 MG TAB PO SCH (21:49)
[2021-04-08] MEDS: INSULIN ASPART PER UNIT SC SCH ×4 (06:18→22:11)
[2021-04-08] MEDS: METOPROLOL TARTRATE 50 MG TAB PO SCH ×2 (07:22→22:05)
[2021-04-08] MEDS: hydrALAZINE HCL 25 MG TAB PO SCH ×2 (07:22→22:04)
[2021-04-08] MEDS ORDERED: amLODIPine BESYLATE 5 MG TAB ONE ×2 (07:25→07:27)
[2021-04-08] MEDS: amLODIPine BESYLATE 5 MG TAB PO SCH (07:26)
--- NOTE | 2021-04-08 07:57 | Hospitalist Progress Note ---
Date of Service April 08, 2021 Assessment & Plan (1) Dyspnea on exertion: Plan: Patient has had chronic hypoxic respiratory failure for several years. By report he had had a chest tube in the past on the left side for recurrent pleural effusion - managed by Dr Victor Hugo Wall in 2019. He went on O2 around that time. He has seen pulmonary at [facility] and has been diagnosed with restrictive lung disease and pulmonary HTN but no obstructive disease. Prior to COVID-19 pneumonia in 01/16-02/15 he did have dyspnea on exertion and a 3 L NC O2 requirement. However, since his COVID recovery, he has required 4 L and his dyspnea is much worse and progressive. Little activity leads to dyspnea (e.g. walking 10 feet, walking up a flight of steps, etc). He does get some chest tightness with his dyspnea at times. CTA chest -negative for PEs; increase in size of pulmonary nodules, no evidence of pneumonia, there is also abnormal lesions in liver that are suspicious for metastatic disease * continue NC O2 continuously, 4 liters * continue CPAP at HS for KISHAN * PFT 03/20/19 show restrictive pathology, does have environmental exposures and second hand smoke * * Dobutamine stress test was positive for possible circumflex lesion left heart cath was positive for obtuse marginal lesion of circumflex which was an ostial lesion and could not be stented medical management recommended therefore his dyspnea can be an anginal equivalent at this time patient will need dual antiplatelet therapy isosorbide mononitrate 30, is on amlodipine will consider switching this out for beta-alesia with after discussion with cardiac medicine and we will also continue atorvastatin at 40 PER Pulmonary visit 09/04/19 Patient's shortness of breath and hypoxemia are multifactorial and related to his diastolic heart failure, ESRD, deconditioning and anemia. I suspect he likely has secondary pulmonary hypertension in which the treatment is treating the underlying disorder such as a diastolic heart failure, obesity hypoventilation, KISHAN and volume status Echo from 02/01/21 shows pulmonary hypertension with Pulmonary artery pressure 58 (2) Syncope: Plan: Multiple episodes of syncope and pre-syncope over the last several weeks at home. He does have prodromal lightheadedness/faint feeling but not consistently. Previous work-up -- * echo - 02/01/21 - [facility] - EF 55-60%, no WMA; no significant valvular heart disease; mild right-sided ventricular dysfunction/cor pulmonale; moderate pulmonary HTN * carotid duplex study - 03/30/21 at [facility] - 50-69% ICA stenosis on right, none on left, antegrade flow through the vertebrals History of PAF at [facility] during his admission for COVID; he is in NSR during his ER stay today. Doubt the ICA stenosis on the right is causing his symptoms. (3) Mass of right lobe of liver: Plan: Patient has a 2.5 cm mass in the right lobe of the liver with possible satellite lesions. There is also his description of some small nodules in his lungs on CT angiogram. Patient did have a colonoscopy in [address] Moreno with polyps removed these were all negative by pathology likewise he had 2 EGDs with biopsies which were unremarkable for cancer. CEA will be sent consideration for additional abdominal imaging to look for pancreatic changes and further delineate his liver changes will be undertaken.. (4) History of COVID-19: Plan: 01/16 - 02/15 - 3 day stay at [facility], then 5 days at [facility]. Was on large quantity of HFNC O2 during that stay. Did not require intubation. (5) Chronic respiratory failure with hypoxia, on home O2 therapy: Plan: baseline NC O2 requirement 4 L continuously. on the basis of pulmonary HTN, restrictive lung disease - (6) Carotid artery stenosis: Plan: see above 03/2021 study with ICA stenosis on R - 50-69% (7) GERD (gastroesophageal reflux disease): Plan: cont PPI doubt his chest pain / tightness is from GERD (8) End-stage renal disease on hemodialysis: Plan: dialysis schedule M// at [facility] in [place]. 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 consult [facility] nephrology for HD assistance. dry weight = 106 kg (9) Restrictive lung disease secondary to obesity: Plan: dx with such by [facility] Pulmonary in the past (10) Obstructive sleep apnea: Plan: on CPAP at home with O2 blended (11) CAD (coronary artery disease): Plan: known CAD. no prior h/o acute NM. s/p caths in 2016, 2018, and 2019. L Cx stent - 2015. RCA stent - 2017. 2020 cath - patent stents. follows with Dr Norton in [place]. cont asa, metoprolol, plavix, statin, amlodipine. nitro prn. minimal troponin elevation - suspect 2nd to ESRD status. patient has had no chest pain in the last 2-3 days. EKG without acute ischemic changes today. (12) Diabetes mellitus type 2, uncontrolled: Plan: check a1c in am. BSGs ac/hs. DM diet. cont lantus 30 units daily. novolog ac/hs - start with correction factor 50, carb ratio 1:20. adjust as needed. (13) Hypertension: Plan: check orthostatics given his recent syncope/near-syncope. if not orthostatic, and if BPs remain high, adjust BP meds. (14) Moderate pulmonary hypertension: Plan: seen on echo in 01/2021. (15) DVT prophylaxis: Plan: heparin 5000 BID (16) PAF (paroxysmal atrial fibrillation): Plan: Episodes of PAF while hospitalized for COVID-19 pneumonia in 01/2021. Converted back to NSR? 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 Decision made NOT to continue on eliquis. Tele monitoring while here for a.fib recurrence. (17) Elevated troponin: Plan: scant elevation. 0.07->0.10-> no ischemic symptoms at time of presentation. if troponin stays the same suspect 2nd to ESRD status. Plan: plan of care d/w patient's significant other at bedside Admission and Anticipated Discharge Date Admission Date: April 07, 2021 Subjective Patient was seen in the dialysis unit receiving dialysis this was after stress test and before his heart catheterization. His stress test was positive for concern for ischemic disease and found to have an obtuse branch off of his circumflex with an ostial lesion which could not be angioplastied and recommendation for medical management. Concerning finding on initial CT angiogram of his chest was a liver lesion in the right lobe of the liver being 2.5 cm with possible satellite lesions. Of note the patient did have a colonoscopy in 2019 with polyps removed which were benign at that time. With some nondescript pulmonary nodules but the liver nodule seems to be the biggest at this time. This information was not disclosed to the patient as at the time I saw him he was in dialysis in the room full of multiple people and likely will discuss this in private on 04/09/2021 Review of Systems Review of Systems: Mild distress and fatigue patient states he feels no improvement than when he initially presented with shortness of breath and general malaise no headache, no visual changes no speech or swallowing issues no chest pain, pressure or palpitations no shortness of breath, cough or wheezes no abdominal pain, nausea or vomiting, diarrhea or constipation no dysuria, hematuria or frequency no focal joint pain or swelling no back pain, CVA tenderness or radicular pain no bruising, bleeding or rashes no focal signs of weakness or numbness or altered sensation no complaints of anxiety or depression.. Physical Exam Physical Exam: The patient appeared well nourished and normally developed. Vital signs as documented. Head exam is normocephalic atraumatic Neck is without JVD, thyromegaly, or carotid bruits. Lungs are clear to auscultation, no focal loss of breath sounds Cardiac exam, Rhythm is regular.. No murmurs, rubs or gallops. Abdominal exam reveals normal bowel sounds, soft non tender, no masses Extremities are trace edematous and both pedal pulses are present Neurologic exam is alert and oriented, no focal loss of strength or sensation Skin is without bruises or rashes Psychologically is without concerns for anxiety or depression.. Results & Data Results & Data ([facility]) Vital Signs (Past 12 Hours) Vital Signs Pulse Resp BP Pulse Ox 04/08/21 07:00 64 19 202/80 H 94 04/08/21 05:49 62 16 184/89 H 96 04/08/21 01:00 65 16 161/80 H 94 04/07/21 21:05 63 20 183/86 H 94 PG Care Time/CCT Total # of Minutes Spent Total Time Spent with Patient: Total time spent is greater than 50% in coordination of care (as documented) at patient's floor/unit and/or counseling patient: Coding Level of Care Code 56925 Subseq Hosp Care Lvl 3 Diagnoses Dyspnea on exertion R06.00 Syncope R55 Syncope type: unspecified History of COVID-19 Z86.16 Chronic respiratory failure with hypoxia, on home O2 therapy J96.11; Z99.81 Carotid artery stenosis I65.29 GERD (gastroesophageal reflux disease) K21.9 End-stage renal disease on hemodialysis N18.6; Z99.2 Restrictive lung disease secondary to obesity J98.4; E66.9 Obstructive sleep apnea G47.33 CAD (coronary artery disease) I25.10 Associated angina: without angina Coronary Disease-Associated Artery/Lesion type: [place] artery [place] vs. transplanted heart: [place] heart Diabetes mellitus type 2, uncontrolled E11.65 Glycemic state: with hyperglycemia Hypertension I10 Moderate pulmonary hypertension I27.20 DVT prophylaxis Z29.9 PAF (paroxysmal atrial fibrillation) I48.0 Elevated troponin R77.8 Mass of right lobe of liver R16.0 (1) CAD (coronary artery disease) Associated angina: without angina Coronary Disease-Associated Artery/Lesion type: [place] artery [place] vs. transplanted heart: [place] heart Qualified Code(s): I25.10 - Atherosclerotic heart disease of [place] coronary artery without angina pectoris (2) Diabetes mellitus type 2, uncontrolled Glycemic state: with hyperglycemia Qualified Code(s): E11.65 - Type 2 diabetes mellitus with hyperglycemia (3) Syncope Syncope type: unspecified Qualified Code(s): R55 - Syncope and collapse
[2021-04-08] MEDS ORDERED: REGADENOSON 0.4 MG/5 ML SYR IV ONE (08:30)
[2021-04-08] MEDS ORDERED: INSULIN GLARGINE SOLOSTAR 100 UNITS/ML 3 ML PEN SC SCH (09:00)
--- NOTE | 2021-04-08 10:08 | Cardiology Consultation ---
Date of Consultation April 08, 2021 Assessment & Plan (1) Syncope: (2) Chest pain, exertional: (3) FLORIAN (dyspnea on exertion): (4) CAD (coronary artery disease): (5) Hypertension: (6) Hyperphosphatemia: (7) Elevated troponin: (8) PAF (paroxysmal atrial fibrillation): ASSESSMENT/PLAN: 1. Syncope: Based on his description, appears consistent with orthostatic driven syncope. Recommended adequate hydration. Could consider support stockings. Given multiple comorbidities, would recommend outpatient 30 day event monitor which he is agreeable. 2. Exertional chest pain: Described as similar to previous angina but had same symptoms in 2020 without obstructive CAD. Myocardial perfusion study today. If no significant ischemia, would recommend nitrate therapy (isosorbide mononitrate) to see if it offers any benefit. Cannot exclude small vessel disease. If significant territory of ischemia, we discussed potential for cardiac catheterization. Most recent catheterization was performed via femoral approach due to lack of suitable pulse in the right upper extremity. 3. Dyspnea with exertion: Has been more significant ever since COVID-19 pneumonia in December. Has been on supplemental oxygen for years. Does not appear hypervolemic. Volume managed by Nephrology. If myocardial perfusion study unremarkable, would recommend nitrate therapy as above. Would also consider any pulmonary treatment that may offer benefit given his significant lung disease. 4. CAD s/p PCI (RCA and Cx): Plan as above. Continue anti-platelet therapy. Continue beta-alesia and high-intensity statin therapy. Considering nitrate therapy as above. 5. Hypertension: Blood pressure has been significantly elevated. Will defer management to Nephrology as change in antihypertensive agents may affect dialysis but would consider adjusting hydralazine if tolerated. Difficult situation given orthostatic symptoms described intermittently as noted above. 6. Dyslipidemia: Continue high-intensity statin therapy. 7. Elevated troponin: Minimally elevated troponin. Not diagnostic of [place]. Likely due to the fact that he has ESRD as troponin tends to be chronically elevated per records. 8. Paroxysmal atrial fibrillation: Reportedly had atrial fibrillation while hospitalized with COVID-19 pneumonia. Episodes were described as paroxysmal. He has discussed this with his usual eligibility examiner and decision was made to not continue with prolonged anticoagulation therapy. Sinus rhythm here. As per his primary eligibility examiner. 9. Pulmonary nodules and liver lesions: Defer to primary service. 10. Disposition: Myocardial perfusion study pending. Will arrange for outpatient 30 day event monitor. Follow up closely with primary eligibility examiner, Dr. Norton. Addendum: Myocardial perfusion study suggests circumflex territory ischemia. Discussed with patient. Cardiac catheterization recommended. Risks and benefits were discussed with him in detail. He was made aware that CT surgery is not available at this facility. He would like to undergo the procedure and PCI if deemed appropriate. Tentatively, plan to undergo coronary angiography when dialysis is completed. Plan of care discussed with Dr. Rangel of the primary hospitalist service. Highly complex medical issues. Thank you for allowing me to participate in the care of your patient. Please call for any other questions or concerns. Sincerely, Chris Denis M.D. History of Present Illness Reason for Consultation: Progressive dyspnea on exertion, known CAD; recurrent syncope Requesting Physician: John Otero Attending Physician: John Otero History of Present Illness Mr. Walker is a very pleasant 50-year-old gentleman with a history significant for CAD s/p RCA and Cx PCI in 2015 and 2017 ([facility]), carotid artery stenosis followed by [facility] vascular, hypertension, dyslipidemia, ESRD on HD MWF, obstructive sleep apnea, restrictive lung disease with chronic hypoxemic respiratory failure on 4 L supplemental oxygen via nasal cannula, type 2 diabetes, and pulmonary hypertension. His primary eligibility examiner is Dr. Norton in [facility]. His last cardiac catheterization was in July of 2019 where he had reportedly patent stents and no severe CAD. Cardiac catheterization was done at that time for substernal chest discomfort which was similar to prior angina, as well as dyspnea with exertion. He has been on supplemental oxygen for years. He had COVID-19 pneumonia in December of 2020 and has since been on 4 L of supplemental oxygen due to worsening shortness of breath. He has been evaluated by his primary eligibility examiner in the past few months and underwent echocardiogram in January. He had experienced syncope and was told by Cardiology that no further evaluation was necessary based on echo findings. He states that there was discussion about outpatient monitor through his PCP, but it was not done. He presented and was admitted to this hospital on 04/07/2021 for worsening shortness of breath. Dyspnea with exertion has been worsening over the past week or so. He also has been experiencing a substernal burning chest discomfort when climbing stairs which resolves quickly with rest. He believes it is similar to prior angina and also similar to symptoms in 2020 which prompted cardiac catheterization with no obstructive CAD. He denies orthopnea, edema, palpitations, or bleeding such as melena, hematochezia, or hematuria. He admits that his breathing has declined in general since COVID-19 infection in December. He had syncope in the summer while cutting wood outside. He admits that he has lightheadedness if he bends over at the waist and near-syncope if he then stands up. Symptoms resolved with sitting. Approximately 2 weeks ago he was outside working on his furnace and had lightheadedness followed by syncope. He was then helped by neighbor and while walking back into the house, had another episode. Glucose was reportedly normal. Blood pressure was checked but he does not recall the value. He admits that he does not attempt to remain well hydrated due to his concern that he does not make urine and is dependent on dialysis. He is chest pain-free during this hospital stay. Troponin has been minimally elevated, up to 0.1. His troponins have been minimally elevated over the past 2 years during different hospital visits here. He had a recent echo on 02/01/2021 which reported normal LV systolic function but mildly dilated RV with mildly reduced RV systolic function. Pulmonary hypertension was moderate with RVSP of 58 mmHg. Review of systems: As above. Review of systems otherwise negative/unremarkable. Family history: Family history of CAD. Social history: Denies smoking, alcohol, or drug abuse. He lives at home with his significant other, Kaycee. He has not been . No children. Does not work. Was unaccompanied. Allergies Allergy/AdvReac Type Severity Reaction Status Date / Time codeine Allergy Mild DELIRIUM,ME Verified 04/07/21 11:01 AN tramadol Allergy Mild nausea and Verified 04/07/21 11:01 vomiting Home Medications Medication Instructions Recorded Confirmed Type aspirin 81 mg chewable tablet 81 mg PO QAM 05/06/18 04/07/21 History clopidogrel 75 mg tablet (Plavix) 75 mg PO QAM 04/05/19 04/07/21 History metoprolol tartrate 50 mg tablet 50 mg PO BID 04/05/19 04/07/21 History (Lopressor) albuterol sulfate 90 mcg/actuation 2 puffs INH Q6H PRN #18 gm 07/02/19 04/07/21 Rx aerosol inhaler (Ventolin HFA) atorvastatin 40 mg tablet 40 mg PO HS 09/04/19 04/07/21 History omeprazole 20 mg capsule,delayed 20 mg PO DAILY #30 cap 09/29/19 04/07/21 Rx release fluticasone furoate 100 1 ea INHALATION DAILY #1 ea 01/30/20 04/07/21 Rx mcg-vilanterol 25 mcg/dose inhalation powder (Breo Ellipta) acetaminophen 325 mg capsule 650 mg PO Q6H PRN 08/24/20 04/07/21 History (Tylenol) amlodipine 10 mg tablet (Norvasc) 10 mg PO QAM #90 tab 12/02/20 04/07/21 Rx hydralazine 25 mg tablet 25 mg PO BID #60 tab 12/02/20 04/07/21 Rx blood sugar diagnostic #50 ea 12/07/20 04/07/21 Rx cholecalciferol (vitamin D3) 25 25 mcg PO DAILY 01/11/21 04/07/21 History mcg (1,000 unit) capsule insulin glargine U-300 conc 300 33 unit SUBCUT QAM ml 01/11/21 04/07/21 History unit/mL (1.5 mL) subcutaneous pen (Toujeo SoloStar U-300 Insulin) miscellaneous medical supply 1 ea MISCELLANEOUS DAILY #1 ea MDD 03/08/2112/17 Rx 4 lpm montelukast 10 mg tablet 10 mg PO QAM #90 tab 03/10/21 04/07/21 Rx pen needle, diabetic 31 gauge x #100 ea 03/11/21 04/07/21 Rx 3/16" (Easy Comfort Pen [place]) Patient History Medical History Acute on chronic diastolic CHF (congestive heart failure) Anemia of chronic disease Arthritis CAD (coronary artery disease) 08/2015- L Cx stent; 11/2017- RCA stent, L Cx stent patent; 07/2019- LM wnl, prox-mid LAD 30%, mid-L Cx stent patent, RCA stent stent with area between stents 30-40%. Sees [facility], Dr Sharad Norton. 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) Repaired s/p PPV, MP, EL (SNT) Diverticular disease Elevated troponin ESRD (end stage renal disease) on dialysis dialysis sun-sun-sun is getting dialysis sat prior to colonoscopy 09/29/2019 and will have it again after on sunday09/30/2019 Hyperkalemia Hyperlipidemia Hypertension Moderate pulmonary hypertension Nuclear sclerosis of both eyes Obstructive sleep apnea cpap on 2L N/C On home oxygen therapy 2L N/C at all times Osteoarthritis, hip, bilateral Pleural effusion, bilateral 11/2018 Pneumonia Presence of arteriovenous fistula for hemodialysis left forearm Secondary pulmonary hypertension Syncope Vitreous hemorrhage of right eye due to diabetes mellitus (12/04/18) Surgical History History of cardiac cath X 2 - 11/2017 - [facility] - SOB - 1 stent placed - follows w/ Dr. Zuniga - 2015 - [facility] - SOB - 1 stent placed History of colonoscopy History of foot surgery left x 4 History of heart artery stent X2 History of placement of chest tube left lung for pleural effusion 11/2018 History of tooth extraction all teeth S/P arteriovenous (AV) fistula creation 04/2016 Dr. Mena placed Family History Mother Diabetes Coronary heart disease Heart disease Hypertension Stroke Father Diabetes Coronary heart disease Heart disease Myocardial infarction Hypertension Stroke Other Kidney disease No family history of adverse response to anesthesia Denies family history of Ovarian cancer Prostate cancer Breast cancer Lung cancer Colorectal cancer Social History (Updated 04/07/21 @ 11:23 by John Otero) Smoking Status: Never smoker Second Hand Exposure: No; Do You Dip or Chew Tobacco: No (former); Tobacco Cessation Education Requested by Patient: No Hx Alcohol Use: No Hx Substance Use: No Preferred Language: Sri Lankan Communication Ability: Effective Visual Impairment: Limited Hearing Ability: Normal Dev Manager Required: No Beliefs That Will Affect Care: None marital status: Single Current Living Situation: Significant Other Current Living Situation Comment: lives with significant other near [place] current occupational status: disabled How many Children do You have: 0 Other Information That Helps 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 Alert and oriented. HEENT: Anicteric sclera. Neck: Thick neck but no appreciable JVD. Normal carotid upstrokes bilaterally. Cardiac: PMI was nonpalpable. No ventricular heave. Regular. Normal S1-S2. No murmurs, rubs, or gallops. Pulmonary: Decreased breath sounds bilaterally but otherwise clear to auscultation. Abdomen: Soft, nontender, nondistended, with normoactive bowel sounds. No bruits noted. Extremities: Very faint right radial pulse. Left upper extremity AV fistula with palpable thrill and audible bruit. 2+ posterior tibialis pulses bilaterally. No cyanosis. Psychiatric: Affect appears appropriate. Results & Data ([facility]) Vital Signs (Past 12 Hours) Vital Signs Pulse Resp BP Pulse Ox 04/08/21 07:00 64 19 202/80 H 94 04/08/21 05:49 62 16 184/89 H 96 04/08/21 01:00 65 16 161/80 H 94 Laboratory Results Laboratory Results - last 48 hr 04/07/21 04/07/21 04/07/21 09:00 09:05 09:05 WBC 8.15 RBC 3.80 L Hgb 11.7 L Hct 37.0 L MCV 97.4 MCH 30.8 MCHC 31.6 L RDW Std Deviation 57.6 H RDW Coeff of Octavio 16.1 H Plt Count 144 MPV 10.4 Immature Gran % (Auto) 0.2 Neut % (Auto) 77.6 Lymph % (Auto) 10.3 [place] % (Auto) 9.7 Eos % (Auto) 1.8 Baso % (Auto) 0.4 Neut # (Auto) 6.32 Lymph # (Auto) 0.84 L [place] # (Auto) 0.79 H Eos # (Auto) 0.15 Baso # (Auto) 0.03 Immature Gran # (Auto) 0.02 PT 10.6 INR 1.0 APTT 29.2 PTT Ratio 1.1 Sodium Potassium Chloride Carbon Dioxide Anion Gap BUN Creatinine Est Cr Clr Drug Dosing Est GFR ( Amer) Est GFR (Non-Af Amer) BUN/Creatinine Ratio Glucose POC Glucose Calcium Magnesium Total Bilirubin AST ALT Alkaline Phosphatase Troponin I Total Protein Albumin Globulin Albumin/Globulin Ratio SARS-CoV-2, RNA, NAAT NEGATIVE 04/07/21 04/07/21 04/07/21 09:05 16:41 18:16 WBC RBC Hgb Hct MCV MCH MCHC RDW Std Deviation RDW Coeff of Octavio Plt Count MPV Immature Gran % (Auto) Neut % (Auto) Lymph % (Auto) [place] % (Auto) Eos % (Auto) Baso % (Auto) Neut # (Auto) Lymph # (Auto) [place] # (Auto) Eos # (Auto) Baso # (Auto) Immature Gran # (Auto) PT INR APTT PTT Ratio Sodium 136 Potassium 4.4 Chloride 92 L Carbon Dioxide 31 Anion Gap 13 H BUN 31 H Creatinine 6.23 H* Est Cr Clr Drug Dosing 16.2 Est GFR ( Amer) 10.9 Est GFR (Non-Af Amer) 9.4 BUN/Creatinine Ratio 5.0 L Glucose 307 H* POC Glucose 126 H Calcium 7.7 L Magnesium 1.8 Total Bilirubin 0.8 AST 15 ALT 7 Alkaline Phosphatase 179 H Troponin I 0.07 H* 0.10 H* Total Protein 6.9 Albumin 4.1 Globulin 2.8 Albumin/Globulin Ratio 1.5 SARS-CoV-2, RNA, NAAT 04/07/21 04/08/21 21:06 05:57 WBC RBC Hgb Hct MCV MCH MCHC RDW Std Deviation RDW Coeff of Octavio Plt Count MPV Immature Gran % (Auto) Neut % (Auto) Lymph % (Auto) [place] % (Auto) Eos % (Auto) Baso % (Auto) Neut # (Auto) Lymph # (Auto) [place] # (Auto) Eos # (Auto) Baso # (Auto) Immature Gran # (Auto) PT INR APTT PTT Ratio Sodium Potassium Chloride Carbon Dioxide Anion Gap BUN Creatinine Est Cr Clr Drug Dosing Est GFR ( Amer) Est GFR (Non-Af Amer) BUN/Creatinine Ratio Glucose POC Glucose 149 H 146 H Calcium Magnesium Total Bilirubin AST ALT Alkaline Phosphatase Troponin I Total Protein Albumin Globulin Albumin/Globulin Ratio SARS-CoV-2, RNA, NAAT Diagnostic Findings Outside echo 02/01/2021: Normal LV size and systolic function. EF 55-60%. Mildly dilated RV with mildly reduced systolic function. No significant valvular stenosis or regurgitation reported. RVSP 58. Chart reviewed. ECG personally reviewed 04/07/2021: Sinus rhythm 60 beats per minute. Cannot rule out anterior infarct. Nonspecific ST abnormality. Prolonged QT. Carotid artery duplex 03/30/2021: Right ICA 50-69%. CTA chest 04/07/2021: No PE. Interval increase in size of previously identified right lower lobe pulmonary nodule with 2 new pulmonary nodules. Increased size in low attenuation liver lesion with second satellite lesion now seen. Findings suspicious for metastatic disease per Radiology. Medications Administered Current Inpatient Medications Acetaminophen (Acetaminophen 325 Mg Tab) 650 mg PO Q6H PRN PRN Reason: Pain Stop: 05/07/21 15:14 Albuterol (Albuterol Hfa 8 Gm Inhaler) 2 puffs INH Q6H PRN PRN Reason: Shortness Of Breath Or Wheezin Stop: 05/07/21 15:14 Amlodipine Besylate (Amlodipine Besylate 5 Mg Tab) 10 mg PO QAM VICKY Stop: 05/08/21 08:59 Last Admin: 04/08/21 07:26 Dose: 10 mg Documented by: Aspirin (Aspirin 81 Mg Ectab) 81 mg PO QAM VICKY Stop: 05/08/21 08:59 Atorvastatin Calcium (Atorvastatin 40 Mg Tab) 40 mg PO HS [facility] Stop: 05/07/21 20:59 Last Admin: 04/07/21 21:49 Dose: Not Given Documented by: Clopidogrel Bisulfate (Clopidogrel Bisulfate 75 Mg Tab) 75 mg PO QAM VICKY Stop: 05/08/21 08:59 Dextrose (Dextrose 50% 50 Ml Syringe) 25 - 50 ml IV UD PRN; Protocol PRN Reason: Hypoglycemia Protocol Stop: 05/07/21 15:44 Fluticasone/Vilanterol (Fluticasone/Vilanterol 100/25mcg 14 Puffs/Inhaler) 1 puffs INH DAILY VICKY Stop: 05/08/21 08:59 Glucagon (Glucagon For Inj 1 Mg Vial) 1 mg IM UD PRN; Protocol PRN Reason: Hypoglycemia Protocol Stop: 05/07/21 15:44 Glucose (Glucose 40% Gel 15 Gm Tube) 15 - 30 gm PO UD PRN; Protocol PRN Reason: Hypoglycemia Protocol Stop: 05/07/21 15:44 Glucose (Glucose 10 Tabs/Tube) 4 - 8 tabs PO UD PRN; Protocol PRN Reason: Hypoglycemia Protocol Stop: 05/07/21 15:44 Heparin Sodium (Porcine) (Heparin Sod 5,000 Unit/0.5 Ml Vial) 5,000 units SQ Q12 [facility] Stop: 05/08/21 08:59 Hydralazine HCl (Hydralazine Hcl 25 Mg Tab) 25 mg PO BID VICKY Stop: 05/07/21 20:59 Last Admin: 04/08/21 07:22 Dose: 25 mg Documented by: Insulin Aspart (Insulin Aspart Per Unit) 0 units SC ACHS [facility] Stop: 05/07/21 16:29 Last Admin: 04/08/21 06:18 Dose: Not Given Documented by: Insulin Glargine (Insulin Glargine Solostar 100 Units/Ml 3 Ml Pen) 30 units SC QAM [facility] Stop: 05/08/21 08:59 Metoprolol Tartrate (Metoprolol Tartrate 50 Mg Tab) 50 mg PO BID VICKY Stop: 05/07/21 20:59 Last Admin: 04/08/21 07:22 Dose: 50 mg Documented by: Miscellaneous (Carbohydrates For Hypoglycemia ) 15 - 30 gm PO UD PRN PRN Reason: Hypoglycemia Treatment Stop: 05/07/21 15:44 Montelukast Sodium (Montelukast Sodium 10 Mg Tablet) 10 mg PO QAM [facility] Stop: 05/08/21 08:59 Last Admin: 04/07/21 21:46 Dose: 10 mg Documented by: Nitroglycerin (Nitroglycerin Sl 0.4 Mg/Tab Tab) 0.4 mg SL UD PRN PRN Reason: Chest Pain Stop: 05/07/21 15:14 Ondansetron HCl (Ondansetron Inj 2 Mg/Ml 2 Ml Vial) 4 mg IV Q6H PRN PRN Reason: Nausea Stop: 05/07/21 15:14 Pantoprazole Sodium (Pantoprazole 40 Mg Tab) 40 mg PO QAM [facility] Stop: 05/08/21 08:59 Vitamin D (Cholecalciferol 1,000 Units 25 Mcg Tab) 1,000 units PO DAILY [facility] Stop: 05/08/21 08:59 PG Care Time/CCT Total # of Minutes Spent Total Time Spent with Patient: Total time spent is greater than 50% in coordination of care (as documented) at patient's floor/unit and/or counseling patient: Coding Level of Care Code 42904 Initial Inpt Care Lvl 3 Diagnoses Syncope R55 Syncope type: unspecified Chest pain, exertional R07.9 FLORIAN (dyspnea on exertion) R06.00 CAD (coronary artery disease) I25.10 Associated angina: without angina Coronary Disease-Associated Artery/Lesion type: [place] artery [place] vs. transplanted heart: [place] heart Hypertension I10 Hyperphosphatemia E83.39 Elevated troponin R77.8 PAF (paroxysmal atrial fibrillation) I48.0 (1) CAD (coronary artery disease) Associated angina: without angina Coronary Disease-Associated Artery/Lesion type: [place] artery [place] vs. transplanted heart: [place] heart Qualified Code(s): I25.10 - Atherosclerotic heart disease of [place] coronary artery without angina pectoris (2) Syncope Syncope type: unspecified Qualified Code(s): R55 - Syncope and collapse
[2021-04-08] MEDS: HEPARIN SOD 5,000 UNIT/0.5 ML VIAL SQ SCH ×2 (10:26→22:06)
[2021-04-08] MEDS: FLUTICASONE/VILANTEROL 100/25MCG 14 PUFFS/INHALER INH SCH (10:26)
[2021-04-08] MEDS: PANTOprazole 40 MG TAB PO SCH (10:27)
[2021-04-08] MEDS: CHOLECALCIFEROL 1,000 UNITS 25 MCG TAB PO SCH (10:27)
[2021-04-08] MEDS: INSULIN GLARGINE SOLOSTAR 100 UNITS/ML 3 ML PEN SC SCH (10:27)
[2021-04-08] MEDS: ASPIRIN 81 MG ECTAB PO SCH (10:28)
[2021-04-08] MEDS: CLOPIDOGREL BISULFATE 75 MG TAB PO SCH (10:28)
--- NOTE | 2021-04-08 15:18 | Myocardial Perfusion Study ---
Date of Service April 08, 2021 Myocardial Perfusion Study [facility] Myocardial Perfusion Study Report Procedure: 1. Myocardial perfusion study performed in multiple views/images 2. Lexiscan pharmacologic stress ECG Indications: 1. Chest pain 2. Dyspnea with exertion 3. CAD Ordering physician: Dr. Otero Procedural details: For the stress portion of the study, Lexiscan 0.4 mg was intravenously administered followed by a saline flush. This was followed by 31.4 mCi of technetium 99m Cardiolite, injected at 9:25 a.m. on 04/08/2021. 30 minutes following the injection, imaging of the heart was performed in multiple projections. For the rest portion of the study, 9.97 mCi technetium 99m Cardiolite was injected intravenously at 7:55 a.m. on 04/08/2021. 1 hour following the injection, imaging of the heart was performed in the same projections. Lexiscan stress ECG: Continuous ECG monitoring was performed with supervision and interpretation. Resting ECG demonstrated: Sinus bradycardia 57 beats per minute. Nonspecific ST abnormality. Maximum heart rate: 82 bpm Maximal, age-predicted heart rate: 48 % Resting blood pressure: 178/82 mmHg Maximum blood pressure: 178/82mmHg Significant ST changes: No diagnostic ST changes. Minor progression of baseline ST abnormality noted. Arrhythmia: None Symptoms: Shortness of breath and nausea Findings: Rotating raw imaging demonstrated no significant lung uptake. There is no significant motion artifact. Heart size appeared normal. Myocardial perfusion demonstrated a moderate-sized area of moderately reduced uptake involving the base to distal inferolateral, lateral, and anterolateral wall segments, which demonstrated significant reversibility on rest imaging. Other wall segments appear to have normal myocardial perfusion. Ejection fraction: 47 % Wall motion: Normal No significant transient ischemic dilation. Impression: 1. Abnormal myocardial perfusion study suggesting circumflex territory ischemia. 2. Mildly reduced LV systolic function. EF 47%. 3. No regional wall motion abnormalities suggested. 4. Lexiscan induced dyspnea and nausea. 5. Nondiagnostic Lexiscan ECG. 6. Results discussed with patient. [facility] Myocardial perfusion code Procedure Code Procedure 1: Myocardial Perfusion Codes: 16969 Cardiovascular Stress Test, multiple Procedure 2: Myocardial Perfusion Codes: 71564 Cardiovascular Stress Test, supervision only Procedure 3: Myocardial Perfusion Codes: 96286 Cardiovascular Stress Test, inter pretation and report
[2021-04-08] MEDS ORDERED: MIDAZOLAM HCL 1 MG/ML 2ML VIAL ONE ×3 (15:53→16:53)
[2021-04-08] MEDS ORDERED: niCARdipine HCL INJ 2.5 MG/ML 10 ML AMP ONE (15:54)
[2021-04-08] MEDS ORDERED: fentaNYL citrate 100 MCG/2 ML VIAL ONE ×2 (15:54→16:54)
[2021-04-08] MEDS ORDERED: HEPARIN (PORCINE) 1000 UNIT/ML 10 ML (CATH LAB USE ONLY) ONE (15:54)
--- NOTE | 2021-04-08 16:10 | Pre Anesthesia Assessment ---
Date of Service April 08, 2021 Pre Sedation Assessment Vital Signs Temp Pulse Pulse Resp BP BP Pulse Ox 04/08/21 15:49 7 L 17 212/77 H 100 04/08/21 15:10 36.6 C 60 186/88 H 04/08/21 15:09 60 183/83 H 04/08/21 14:40 57 L 173/94 H 04/08/21 14:20 58 L 153/88 H 04/08/21 14:00 59 L 183/92 H 04/08/21 13:40 61 188/95 H 04/08/21 13:20 58 L 175/84 H 04/08/21 13:00 57 L 173/92 H 04/08/21 12:40 58 L 178/83 H 04/08/21 12:20 59 L 160/78 H 04/08/21 12:00 57 L 160/72 H 04/08/21 11:40 58 L 180/85 H 04/08/21 11:06 36.5 C 59 L 04/08/21 10:45 189/82 H 04/08/21 07:00 64 19 202/80 H 94 04/08/21 05:49 62 16 184/89 H 96 04/08/21 01:00 65 16 161/80 H 94 04/07/21 21:05 63 20 183/86 H 94 04/07/21 19:00 60 16 172/82 H 100 04/07/21 18:43 62 21 172/82 H 100 04/07/21 16:44 36.5 C 59 L 20 195/84 H 98 Cardiovascular + regular rate Respiratory normal respiratory effort, lungs clear to auscultation Pre-Sedation Airway Assessment Smoking Status: Never smoker Hx Sleep Apnea: Yes Short, Thick Neck: Yes Thyromental Distance: > or= 3.5 Finger Breadths Oral Cavity: + WNL Mallampati Class: III ASA: ASA3 NPO Status Date of Last Intake of Fluids: 04/07/21 Time of Last Intake of Fluids: 19:00 Date of Last Intake of Solid Food: 04/07/21 Time of Last Intake of Solid Foods: 19:00 Procedure Planning Contraindications for Sedation: none Current Medications Reviewed: Yes Notes The planned sedation has been discussed with the patient. Informed Consent was obtained. I have identified the patient, determined the appropriateness of sedation and have assessed the patient immediately prior to the procedure. All medicine(s) and interventions are by my order.
[2021-04-08] MEDS ORDERED: NITROGLYCERIN/D5W 100MCG/ML 20ML SYR ONE (16:15)
[2021-04-08] MEDS ORDERED: hydrALAZINE HCL 20 MG/ML VIAL ONE (16:16)
--- NOTE | 2021-04-08 16:57 | Cardiac Catheterization ---
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 Cardiac Status Clinical evaluation leading to the procedure CAD Presenation: Positive Stress Test and Stable angina Anginal Classification: CCS III Heart Failure: No Cardiogenic Shock within 24 Hours: No Cardiac Arrest within 24 Hours: No Imaging Studies Past 6 Months: Yes Stress Studies Past 6 Months: Yes Standard Exercise Test: No Stress Echocardiogram: No Stress Testing w/SPECT MPI: Yes - Positive and Risk/Extent of Ischemia (Intermediate) Coronary Anatomy Dominant: Right Diagnostic Physicians Name: Nikita Denis MD Status: Elective Closure Device Percutaneous Entry Location: Femoral Recommendations: PCI without planned CABG Cardiac Cath Procedure Full Procedure Date April 08, 2021 Pre-Procedure Diagnosis Pre-Procedure Diagnosis: Angina and Positive Stress Test AUC Score AUC Score: 7 Post-Procedure Diagnosis Post-Procedure Diagnosis: Severe CAD and Elevated Intracardiac Pressures Procedure(s) Performed Procedure(s) Performed: Coronary Angiography, Left Heart Cath and Ultrasound Guided Vascular Access Child Adolescent Care Nikita Denis MD Acid Purification Equipment Operator(s) Deibler Estimated Blood Loss Estimated Blood Loss: < 25 ml Medication(s) Medication(s): Fentanyl, Hydralazine, Lidocaine 1% and Versed Summary of Findings Procedures: 1. Coronary angiography 2. Left heart catheterization 3. Ultrasound guidance for vascular access 4. Moderate sedation Indication: 50-year-old gentleman with CAD and prior circumflex and RCA stents, type 2 diabetes, hypertension, dyslipidemia, ESRD on HD, and restrictive lung disease on supplemental oxygen presented with worsening exertional dyspnea and angina. Myocardial perfusion study suggested anterolateral, lateral, inferolateral ischemia. Coronary angiography: 1. Left main: No significant CAD. 2. Left anterior descending: Large caliber vessel that wraps around the apex. Proximal into mid LAD 30%. Mid LAD 40 to 50%. Large D1 with mid 50 to 70% stenosis. YARI-3 flow. 3. Circumflex: Large caliber vessel. Proximal circumflex 40%. Mid circumflex 50%. Mid circumflex stent patent. Very small caliber OM1 and OM 2. Large caliber OM 3 mid to distal 90-95% sequential stenotic areas. YARI II flow beyond this area. 4. Right coronary artery: Large and dominant vessel. Proximal RCA 30%. Mid RCA stent with in-stent restenosis of 70 to 80%. Late mid RCA 40 to 50% just distal to previous RCA stent. Distal RCA luminal irregularities. PL and large PDA without significant CAD. YARI-3 flow. Left heart catheterization: 1. Left ventriculography was not performed. 2. Mildly elevated LVEDP; 18 mmHg. 3. No aortic stenosis. Ultrasound guidance for vascular access: 1. Right femoral artery was visualized with ultrasound. Access was achieved on first attempt under ultrasound guidance, without known complication. Moderate sedation: 1. Sedation start time: 4:12 PM 2. Sedation end time: 4:50 PM Procedural notes: 1. Right femoral arterial approach due to faint right radial pulse and left upper extremity AV fistula. 2. Systolic blood pressures were initially 200s. Blood pressure improved with intravenous hydralazine. Impression: 1. Severe CAD involving OM 3 and RCA in-stent stenosis. 2. Moderately severe D1 CAD. 3. Otherwise, mild or moderate nonobstructive CAD. Circumflex stent patent. 4. No aortic stenosis. 5. Mildly elevated left-sided filling pressure. 6. Hypertension. Plan: 1. Given progressively worsening symptoms prompting this hospital stay with abnormal myocardial perfusion study, Dr. Law of interventional cardiology was asked to review images. He plans on attempting PCI of OM. 2. Optimize blood pressure control. 3. Risk factor modification. Hemodynamics Rest Ao:: 182/63 Final Ao: 164/53 LV: 170/6/18 Recommendations Recommendations: PCI without planned CABG Specimens Specimens: None Radiation Exposure (mGy) 1144 mGy. Fluoro time 2.7 min. Contrast (mls) 65 ml Procedural Complication(s) None Disposition remains in slabbing machine operator for interventional cardiology I attest to the content of the Intraoperative Record and any orders documented therein. Any exceptions are noted below. [facility] Prep Card Cath Procedure Codes Cardiac Catheterization Procedure 1: Cardiovascular Cath Procedures: 95325 Coronaries and LHC (+/-LV) Therapeutic Services & Ancillary Proc Procedure 1: Cardiovascular Tx and Anc Procedures: 53419 Ultrasonic Guidance Vascular Access Moderate Sedation Procedure 1: Sedation/Anesthesia: 15364 Mod Sedation by the same physician;Init15 Min Child Age 5 & Up Procedure 2: Sedation/Anesthesia: 99911 Mod Sedation by the same physician; Ea [id number] Minutes Procedure 3: Sedation/Anesthesia: 48913 Mod Sedation by the same physician; Ea [id number] Minutes PG Care Time/CCT Total # of Minutes Spent Total Time Spent with Patient: Total time spent is greater than 50% in coordination of care (as documented) at patient's floor/unit and/or counseling patient:
--- NOTE | 2021-04-08 17:29 | Post Anesthesia Assessment ---
Date of Service April 08, 2021 Post Sedation Assessment Vital Signs Temp Pulse Pulse Resp BP BP Pulse Ox 04/08/21 15:49 7 L 17 212/77 H 100 04/08/21 15:10 97.9 F 60 186/88 H 04/08/21 15:09 60 183/83 H 04/08/21 14:40 57 L 173/94 H 04/08/21 14:20 58 L 153/88 H 04/08/21 14:00 59 L 183/92 H 04/08/21 13:40 61 188/95 H 04/08/21 13:20 58 L 175/84 H 04/08/21 13:00 57 L 173/92 H 04/08/21 12:40 58 L 178/83 H 04/08/21 12:20 59 L 160/78 H 04/08/21 12:00 57 L 160/72 H 04/08/21 11:40 58 L 180/85 H 04/08/21 11:06 97.7 F 59 L 04/08/21 10:45 189/82 H 04/08/21 07:00 64 19 202/80 H 94 04/08/21 05:49 62 16 184/89 H 96 04/08/21 01:00 65 16 161/80 H 94 04/07/21 21:05 63 20 183/86 H 94 04/07/21 19:00 60 16 172/82 H 100 04/07/21 18:43 62 21 172/82 H 100 Recovery Score Activity: Moves 4 extremities Respiration: Deep Breath/Cough Circulation: +/-20% PreAnes Value Consciousness: Fully Awake Oxygen Saturation: O2 needed for >90% Discharge Sedation Level of Care: Fast Track Phase II Post Sedation Plan On clinical assessment, the patient appears to have tolerated the sedation without complications. Patient is recovering as anticipated. Patient will continue to be monitored by nursing and may be discharged when sedation discharge criteria are met per below protocol. Upon Completions of procedure up to 15 minutes continue every 5 minute vital signs and the P.A.R. score; then discharge to a Phase I or Fast Track to Phase II per the following guidelines: * Discharge Patient to appropriate Phase II area if PAR is 8 or greater or return to pre- procedure baseline. The post - procedure orders will be as directed. * If PAR score is less than 8 or not return to pre-procedure baseline then patient will follow Phase I monitoring till PAR is reached for Phase II. The Phase I may be done in procedure room or may call to secure a Phase I area. * If naloxone or flumazenil are used for reversal, hold in Phase I for continued monitoring from when last reversal dose was given for a minimum of 60 minutes or longer pending the nurse and/or physician discretion of patient condition before discharge to Phase II. Please call the Sedation Physician to re-evaluate and complete post-note for discharge to Phase II area. Do NOT discharge from procedure sedation or Phase 1 until post- sedation evaluation note is complete by procedure /sedation MD Sedation Discharge Instructions to be given to the patient at discharge to home.
--- NOTE | 2021-04-08 17:56 | Nephrology Consultation ---
Date of Consultation April 08, 2021 Assessment & Plan (1) End-stage renal disease on hemodialysis: HD MWF as outpatient. 4.25 hrs on 180 opti with Qb 500. EDW 106 kg. Completed treatment today with UF 3.5 L. I have entered orders to attempt a short treatment tomorrow for additional UF challenge as tolerated. Clearances have been acceptable. Medications appropriately dosed for kidney dysfunction. (2) Moderate pulmonary hypertension: Will attempt additional fluid removal with dialysis tomorrow. Catheterization findings reviewed with Dr. Denis and Dr. Law this evening. (3) CAD (coronary artery disease): Medical management. Imdur has been added. Metoprolol tartrate, hydralazine, and amlodipine continued per home Rx. (4) Hypertension: Imdur added. History of Present Illness Reason for Consultation: ESRD on HD Requesting Physician: John Otero Attending Physician: John Otero History of Present Illness Mr. Ryan Walker was seen and evaluated this evening following cardiac catheterization. I discussed the patient with Dr. Ruff yesterday evening and reviewed the plan of care with Dr. Denis this morning and following attempted PCI this afternoon. Catheterization demonstrated severe stenosis of OM 3 and in-stent RCA stenosis. Findings consistent with myocardial perfusion study. PCI was attempted but unfortunately unsuccessful. LVEDP 18-20. Accelerated hypertension persisted throughout the procedure. Ryan denied symptomatic accelerated hypertension. 15 mg IV hydralazine provided. Imdur has also been ordered. Ryan felt well during recovery in his hospital room. Bleeding controlled. He hopes to be discharged home tomorrow. HD completed earlier today without complications. Ryan tolerated dialysis well. I reviewed the plan of care and orders with the dialysis nurse during treatment. Net UF 3.5 L. He typically dialyzes at [facility] on a MWF schedule. His last treatment was completed on Sunday. Net UF 4.4 L on Sunday. UF 5.1 L on Sunday. I also spoke to the HD nurse at [facility] earlier today. Outpatient orders were reviewed. She related that Ryan has been tolerating HD well. Fluid gains are typically in excess of 4 to 5 L. He does not make urine. He has been achieving an EDW of 106 kg. Intermittent cramping with treatment. BP has been consistently elevated during recent dialysis sessions. Rx: 4 hrs 15 minutes, 180 opti, Qb 500 w/ 14 g needles, 2 K; EDW 106. Ryan is a 50-year-old male with coronary artery disease, cerebrovascular disease, DMII, KISHAN, dyslipidemia, restrictive lung disease with chronic O2 4 L via NC, pulmonary hypertension, and ESRD. His primary infant childcare provider is Dr. Mojica. Ryan had COVID-19 pneumonia in December resulting in worsening hypoxic failure and persistent activity limiting FLORIAN. FLORIAN progressive over the past couple of weeks. In February, he experienced a syncopal episode while outside working. He denied any prodromal symptoms. While standing and working without notable exertion and not associated chest pain, palpitations, or diaphoresis, he lost consciousness for a few seconds. He reports immediate recovery. He had a similar episode over the summer while cutting wood. Allergies Allergy/AdvReac Type Severity Reaction Status Date / Time codeine Allergy Mild DELIRIUM,ME Verified 04/07/21 11:01 AN tramadol Allergy Mild nausea and Verified 04/07/21 11:01 vomiting Home Medications Medication Instructions Recorded Confirmed Type aspirin 81 mg chewable tablet 81 mg PO QAM 05/06/18 04/07/21 History clopidogrel 75 mg tablet (Plavix) 75 mg PO QAM 04/05/19 04/07/21 History metoprolol tartrate 50 mg tablet 50 mg PO BID 04/05/19 04/07/21 History (Lopressor) albuterol sulfate 90 mcg/actuation 2 puffs INH Q6H PRN #18 gm 07/02/19 04/07/21 Rx aerosol inhaler (Ventolin HFA) atorvastatin 40 mg tablet 40 mg PO HS 09/04/19 04/07/21 History omeprazole 20 mg capsule,delayed 20 mg PO DAILY #30 cap 09/29/19 04/07/21 Rx release fluticasone furoate 100 1 ea INHALATION DAILY #1 ea 01/30/20 04/07/21 Rx mcg-vilanterol 25 mcg/dose inhalation powder (Breo Ellipta) acetaminophen 325 mg capsule 650 mg PO Q6H PRN 08/24/20 04/07/21 History (Tylenol) amlodipine 10 mg tablet (Norvasc) 10 mg PO QAM #90 tab 12/02/20 04/07/21 Rx hydralazine 25 mg tablet 25 mg PO BID #60 tab 12/02/20 04/07/21 Rx blood sugar diagnostic #50 ea 12/07/20 04/07/21 Rx cholecalciferol (vitamin D3) 25 25 mcg PO DAILY 01/11/21 04/07/21 History mcg (1,000 unit) capsule insulin glargine U-300 conc 300 33 unit SUBCUT QAM ml 01/11/21 04/07/21 History unit/mL (1.5 mL) subcutaneous pen (Toujeo SoloStar U-300 Insulin) miscellaneous medical supply 1 ea MISCELLANEOUS DAILY #1 ea MDD 03/08/21 04/07/21 Rx 4 lpm montelukast 10 mg tablet 10 mg PO QAM #90 tab 03/10/21 04/07/21 Rx pen needle, diabetic 31 gauge x #100 ea 03/11/21 04/07/21 Rx 3/16" (Easy Comfort Pen [place]) Patient History Medical History Acute on chronic diastolic CHF (congestive heart failure) Anemia of chronic disease Arthritis CAD (coronary artery disease) 08/2015- L Cx stent; 11/2017- RCA stent, L Cx stent patent; 07/2019- LM wnl, prox-mid LAD 30%, mid-L Cx stent patent, RCA stent stent with area between stents 30-40%. Sees [facility], Dr Sharad Norton. 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) Repaired s/p PPV, MP, EL (SNT) Diverticular disease Elevated troponin ESRD (end stage renal disease) on dialysis dialysis sun-sun-sun is getting dialysis sat prior to colonoscopy 09/29/2019 and will have it again after on sunday09/30/2019 Hyperkalemia Hyperlipidemia Hypertension Moderate pulmonary hypertension Nuclear sclerosis of both eyes Obstructive sleep apnea cpap on 2L N/C On home oxygen therapy 2L N/C at all times Osteoarthritis, hip, bilateral Pleural effusion, bilateral 11/2018 Pneumonia Presence of arteriovenous fistula for hemodialysis left forearm Secondary pulmonary hypertension Syncope Vitreous hemorrhage of right eye due to diabetes mellitus (12/04/18) Surgical History History of cardiac cath X 2 - 11/2017 - [facility] - SOB - 1 stent placed - follows w/ Dr. Zuniga - 2016 - [facility] - SOB - 1 stent placed History of colonoscopy History of foot surgery left x 4 History of heart artery stent X2 History of placement of chest tube left lung for pleural effusion 11/2018 History of tooth extraction all teeth S/P arteriovenous (AV) fistula creation 04/2016 Dr. Mena placed Family History Mother Diabetes Coronary heart disease Heart disease Hypertension Stroke Father Diabetes Coronary heart disease Heart disease Myocardial infarction Hypertension Stroke Other Kidney disease No family history of adverse response to anesthesia Denies family history of Ovarian cancer Prostate cancer Breast cancer Lung cancer Colorectal cancer Social History (Updated 04/07/21 @ 11:23 by John Otero) Smoking Status: Never smoker Second Hand Exposure: No; Hx Alcohol Use: No Hx Substance Use: No Preferred Language: Maori Communication Ability: Effective Visual Impairment: Limited Hearing Ability: Normal Learning Support Services Director Required: No Beliefs That Will Affect Care: None marital status: Single Current Living Situation: Significant Other Current Living Situation Comment: lives with significant other near [place] current occupational status: disabled How many Children do You have: 0 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 Feels Safe at Home: Yes Childhood Exposure to Second-Hand Smoke: Yes caffeine: No during the past year weight has: remained stable Dental Care, Regularly: No Physical Activity Frequency: 1-2 Times per Week Physical Activity Frequency Comment: walk Seatbelt Use: always Sunscreen Use: No Assistive Devices: Oxygen - Continuous Review of Systems Review of Systems: All systems reviewed & are unremarkable except as noted in HPI & below Physical Exam Constitutional: well developed; no acute distress Eyes: no scleral abnormality and no corneal abnormality Neck: normal visual inspection and trachea midline Respiratory: normal respiratory effort Auscultation: lungs clear to auscultation bilaterally Cardiovascular: Rate/Rhythm: regular rate Heart Sounds: normal S1 and normal S2 Vessels: + JVD Extremities: + pedal edema and + AV fistula Musculoskeletal: Extremities: no cyanosis and no clubbing Skin: normal turgor; no lesions Neurologic: Motor/Sensory: no tremor and no asterixis Psychiatric: Orientation: alert and oriented x 3 Results & Data ([facility]) Vital Signs (Past 12 Hours) Vital Signs Temp Pulse Pulse Resp BP BP Pulse Ox 04/08/21 15:49 7 L 17 212/77 H 100 04/08/21 15:10 36.6 C 60 186/88 H 04/08/21 15:09 60 183/83 H 04/08/21 14:40 57 L 173/94 H 04/08/21 14:20 58 L 153/88 H 04/08/21 14:00 59 L 183/92 H 04/08/21 13:40 61 188/95 H 04/08/21 13:20 58 L 175/84 H 04/08/21 13:00 57 L 173/92 H 04/08/21 12:40 58 L 178/83 H 04/08/21 12:20 59 L 160/78 H 04/08/21 12:00 57 L 160/72 H 04/08/21 11:40 58 L 180/85 H 04/08/21 11:06 36.5 C 59 L 04/08/21 10:45 189/82 H 04/08/21 07:00 64 19 202/80 H 94 Laboratory Results Laboratory Results - last 24 hr 04/07/21 04/07/21 04/08/21 18:16 21:06 05:57 Activ Coag Time Kaolin POC Glucose 149 H 146 H Troponin I 0.10 H* 04/08/21 17:14 Activ Coag Time Kaolin 249 H POC Glucose Troponin I PG Care Time/CCT Total # of Minutes Spent Total Time Spent with Patient: Total time spent is greater than 50% in coordination of care (as documented) at patient's floor/unit and/or counseling patient: Coding Level of Care Code 98622 Inpt Consult Level 4 Diagnoses Moderate pulmonary hypertension I27.20 End-stage renal disease on hemodialysis N18.6; Z99.2 CAD (coronary artery disease) I25.10 Coronary Disease-Associated Artery/Lesion type: robinson artery [place] vs. transplanted heart: robinson heart Associated angina: without angina Hypertension I10 (1) CAD (coronary artery disease) Coronary Disease-Associated Artery/Lesion type: robinson artery [place] vs. transplanted heart: robinson heart Associated angina: without angina Qualified Code(s): I25.10 - Atherosclerotic heart disease of robinson coronary artery without angina pectoris
--- NOTE | 2021-04-08 18:18 | Cardiac Catheterization ---
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 Cardiac Status Clinical evaluation leading to the procedure CAD Presenation: Positive Stress Test Anginal Classification: CCS III Heart Failure: No Cardiogenic Shock within 24 Hours: No Cardiac Arrest within 24 Hours: No Imaging Studies Past 6 Months: Yes Stress Studies Past 6 Months: No Diagnostic Physicians Name: Robert Law MD Closure Device Recommendations: PCI without planned CABG Lesion Segment Name: distal OM3 Culprit Artery: Yes Stenosis Prior to Rx (%): 99 Chronic Total Occlusion: No IVUS: No FFR: No Pre-Procedure YARI Flow: 1 Previously Treated Lesion: No Lesion Complexity: High/C Lesion Length (mm): 25 Thrombus Present: No Bifurcation Lesion: No Guidewire Across Lesion: Stenosis Post-Procedure (%): 0 Post-Procedure YARI Flow: 3 Devices(s) Deployed: Yes Yes Intraprocedure Events Significant Disection: No Perforation: No Cardiac Cath Procedure Full Procedure Date April 08, 2021 Pre-Procedure Diagnosis Pre-Procedure Diagnosis: Angina and Positive Stress Test AUC Score AUC Score: 7 Post-Procedure Diagnosis Post-Procedure Diagnosis: Severe CAD and Unsuccessful PCI Procedure(s) Performed Procedure(s) Performed: Coronary Angiography and PTCA Offset Machine Operator Robert Law MD Newspaper Correspondent(s) Deibler Estimated Blood Loss Estimated Blood Loss: < 25 ml Medication(s) Medication(s): Fentanyl, Heparin, Nicardipine, Nitroglycerin and Versed Summary of Findings Indication: Abnormal stress test Access: 6Fr RT INDIRECT SALES EXEC Catheters: EBU 3.5 guide Findings: For full details of patient's coronary angiography please see cath report dictated by Dr. Denis. Briefly, patient found to have severe multivessel disease including a subtotal occlusion of distal OM3. Decision to proceed with PCI. -- PCI -- Antithrombotic therapy: Heparin, Clopidogrel Procedure: Left main cannulated with EBU 3.5 guide. With the aid of balloon catheter for support Indirect Sales Exec 50 wire passed across distal subtotal occlusion. Unable to pass balloons across most distal subtotal occlusion despite inflations with 1.5 and 2.0 balloons. IC vasodilators administered No flow across most distal stenosis. Patient asymptomatic, no ST changes. Arterial Closure: Angio-Seal Summary: 1. Unsuccessful attempted PCI of subtotal distal OM3 occlusion. Recommendations: Distal OM3 is a small vessel supplying limited myocardium and subtotal occlusion seems to be more chronic in nature. Would avoid more aggressive attempts at intervention. Recommend intensified antianginal therapy for OM3, diagonal and RCA disease. Continue DAPT with aspirin and clopidogrel No need for additional intervention/cardiac testing prior to any upcoming noncardiac invasive testing or procedures. Clopidogrel can be held as needed. Hemodynamics Rest Ao:: 169/51/90 Final Ao: 138/48/78 LV: -- Recommendations Recommendations: PCI without planned CABG Specimens Specimens: None Radiation Exposure (mGy) 2798 Contrast (mls) 135 Fluids (cc crystalloids) Fluids (cc crystalloids): none Drains Drains: moderate Anesthesia 1799-1667 Procedural Complication(s) None Disposition PCU I attest to the content of the Intraoperative Record and any orders documented therein. Any exceptions are noted below. [facility] Card Cath Procedure Codes Moderate Sedation Procedure 1: Sedation/Anesthesia: 70432 Mod Sedation by the same physician; Ea [id number] Minutes Angioplasty Procedure 1: Cardiovascular Angioplasty Procedures: 44860 PTCA; Single mafor coronary artery or branch RC LC LD PG Care Time/CCT Total # of Minutes Spent Total Time Spent with Patient: Total time spent is greater than 50% in coordination of care (as documented) at patient's floor/unit and/or counseling patient:
[2021-04-08] MEDS: ISOSORBIDE MONO EXTENDED REL 30 MG TABCR PO SCH (18:48)
[2021-04-08 20:36] LABS: Hepatitis B Surface Ab Quant 5.12 mIU/mL (>or=10mIU/mL Immune); Hepatitis B Surface Antibody Non-Immune
[2021-04-08 20:46] LABS: Hepatitis B Surf Ag Rflx Conf Neg (Neg)
[2021-04-08] MEDS: ATORVASTATIN 40 MG TAB PO SCH (22:05)
[2021-04-08] MEDS: MONTELUKAST SODIUM 10 MG TABLET PO SCH (22:05)
--- NOTE | 2021-04-08 23:58 | Electrocardiogram Report ---
Test Reason : Blood Pressure : / mmHG Vent. Rate : 060 BPM Atrial Rate : 060 BPM P-R Int : 184 ms QRS Dur : 076 ms QT Int : 516 ms P-R-T Axes : 052 060 -32 degrees QTc Int : 516 ms Poor data quality, interpretation may be adversely affected Normal sinus rhythm Possible Anterior infarct , age undetermined Prolonged QT Abnormal ECG When compared with ECG of 15-FEB-2020 06:21, T wave inversion now evident in Inferior leads QT has lengthened Confirmed by Nikita Denis ([id number]) on 04/08/2021 11:57:50 PM Referred By: Confirmed By:Nikita Denis
[2021-04-09] MEDS: FLUTICASONE/VILANTEROL 100/25MCG 14 PUFFS/INHALER INH SCH (07:47)
[2021-04-09] MEDS: amLODIPine BESYLATE 5 MG TAB PO SCH (07:48)
[2021-04-09] MEDS: CLOPIDOGREL BISULFATE 75 MG TAB PO SCH (07:49)
[2021-04-09] MEDS: hydrALAZINE HCL 25 MG TAB PO SCH (07:49)
[2021-04-09] MEDS: ASPIRIN 81 MG ECTAB PO SCH (07:49)
[2021-04-09] MEDS: HEPARIN SOD 5,000 UNIT/0.5 ML VIAL SQ SCH (07:49)
[2021-04-09] MEDS: PANTOprazole 40 MG TAB PO SCH (07:49)
[2021-04-09] MEDS: METOPROLOL TARTRATE 50 MG TAB PO SCH (07:49)
[2021-04-09] MEDS: CHOLECALCIFEROL 1,000 UNITS 25 MCG TAB PO SCH (07:49)
[2021-04-09] MEDS: ISOSORBIDE MONO EXTENDED REL 30 MG TABCR PO SCH (07:50)
[2021-04-09] MEDS: INSULIN ASPART PER UNIT SC SCH ×3 (07:55→17:34)
[2021-04-09] MEDS: INSULIN GLARGINE SOLOSTAR 100 UNITS/ML 3 ML PEN SC SCH (08:04)
[2021-04-09] MEDS ORDERED: Nursing to Pharmacy Communication SCH (09:15)
--- NOTE | 2021-04-09 09:17 | Nephrology Progress Note ---
Date of Service April 09, 2021 Assessment & Plan (1) End-stage renal disease on hemodialysis: Plan: * Outpatient HD orders: MWF 4.25 hrs on 180 opti with Qb 500. EDW 106 kg. * Scheduled for 2 hour treatment today. Will attempt 2L UF to challenge EDW (2) CAD (coronary artery disease): Plan: * 99% stenosis distal OM3 s/p PCI 04/08/20 --> 0% post procedure stenosis * 70 - 80% mid RCA stent restenosis (3) Hypertension: Plan: * Imdur 30 mg po qAM added (4) Mass of right lobe of liver: Plan: * 2.5 cm mass in the right lobe of the liver with possible satellite lesions Admission and Anticipated Discharge Date Admission Date: April 07, 2021 Subjective Mr. Walker was evaluated in his hospital room this morning. He denied angina or palpitations. He was breathing comfortably on O2 at 4L/min NC. Review of Systems Constitutional: no fever Eyes: no problem reported Ear, Nose, Mouth, Throat: no problem reported Respiratory: no dyspnea Cardiovascular: no chest pain and no palpitations Gastrointestinal: no abdominal pain, no nausea, no vomiting and no diarrhea/loose stools Musculoskeletal: no back pain Integumentary: no rash Neurologic: no falls, no dizziness and no confusion Physical Exam Constitutional: not in distress Eyes: PERRL, conjunctivae normal, anicteric sclerae ENMT: external ear and nose normal, oropharynx normal Neck: trachea midline, no thyromegaly Respiratory: normal respiratory effort, lungs clear to auscultation Cardiovascular: Rate/Rhythm: regular rate and regular rhythm Extremities: + edema (trace LE) and + AV fistula (+ bruit) Gastrointestinal (Abdomen): normal bowel sounds, soft, nontender, no hepatosplenomegaly Skin: no rashes, warm and dry Neurologic: awake; not confused Results & Data ([facility]) Vital Signs (Past 12 Hours) Vital Signs Temp Pulse Resp BP Pulse Ox 04/09/21 08:00 36.3 C L 62 18 182/80 H 98 04/09/21 06:40 36.9 C 60 18 152/74 H 93 04/09/21 03:33 36.8 C 56 L 16 144/71 H 94 04/08/21 22:46 36.8 C 65 19 153/65 H 95 04/08/21 22:19 67 16 147/72 H 91 04/08/21 21:19 65 18 146/66 H 94 Laboratory Results CMP, CBC, CEA and PSA - pending this am PG Care Time/CCT Total # of Minutes Spent Total Time Spent with Patient: Total time spent is greater than 50% in coordination of care (as documented) at patient's floor/unit and/or counseling patient: Coding Level of Care Code 98091 Subseq Hosp Care Lvl 3 Diagnoses End-stage renal disease on hemodialysis N18.6; Z99.2 CAD (coronary artery disease) I25.10 Coronary Disease-Associated Artery/Lesion type: [place] artery [place] vs. transplanted heart: [place] heart Associated angina: without angina Hypertension I10 Mass of right lobe of liver R16.0 (1) CAD (coronary artery disease) Coronary Disease-Associated Artery/Lesion type: [place] artery [place] vs. transplanted heart: [place] heart Associated angina: without angina Qualified Code(s): I25.10 - Atherosclerotic heart disease of [place] coronary artery without angina pectoris
[2021-04-09 09:52] LABS: Hematocrit (blood only) 35.3 % (42-52); Hemoglobin 11.5 g/dL (14.0-18.0); Mean Corpuscular Hemoglobin 31.3 pg (25-34); Mean Corpuscular Hgb Conc 32.6 g/dL (32-36); Mean Corpuscular Volume 96.2 fL (80-100); Mean Platelet Volume 10.6 fL (7.4-10.4); Platelet Count 184 K/uL (130-400); RDW Standard Deviation 56.2 fL (36.4-46.3); Red Blood Count 3.67 M/uL (4.7-6.1); White Blood Count 7.01 K/uL (4.8-10.8)
[2021-04-09] MEDS: MONTELUKAST SODIUM 10 MG TABLET PO SCH (09:54)
[2021-04-09 11:15] LABS: Albumin Globulin Ratio 1.4 (0.9-2); Albumin Level 3.8 gm/dl (3.4-5.0); BUN Creatinine Ratio 4.5 (10-20); Bilirubin,Total 0.8 mg/dl (0.2-1.0); Creatinine Clr Calc Pharmacy 14.3 ml/min; Est GFR (African American) 9.6 ml/min; Est GFR (Non-African American) 8.3 ml/min; Globulin 2.7 gm/dl (2.5-4.0); Potassium 4.2 mmol/L (3.5-5.1); Total Protein 6.5 gm/dl (6.0-8.3)
--- NOTE | 2021-04-09 16:02 | Ultrasound Report ---
ABDOMINAL ULTRASOUND, RIGHT UPPER QUADRANT HISTORY: Evaluate hepatic lesion.. COMPARISON: Chest CTA 04/07/2021. FINDINGS: Pancreas: The pancreatic tail is obscured by overlying bowel gas. The remaining portions of the pancr eas are within normal limits. Liver: A 1.8 x 1.2 cm cyst within the liver. This likely corresponds to the CT abnormality. No hepati c lesions identified. Gallbladder: No gallbladder wall thickening. No gallstones. CBD: 2 mm. Right kidney: Atrophic right kidney. IMPRESSION: A 1.8 x 1.2 cm cyst within the liver which likely corresponds to the CT abnormality. No solid hepatic lesions identified. Follow-up ultrasound in 6 months can be performed to ensure stability given the increase in size from the 2020 examination ACT 112: Negative or not required by law. Electronically signed by: Erwin Mitchell M.D. 04/09/2021 4:01 PM
--- NOTE | 2021-04-09 20:30 | Discharge Summary ---
Date of Service April 09, 2021 Admission HPI Per Admitting Provider 50yo male with ESRD on HD M/W/F, chronic hypoxic respiratory failure 2nd to restrictive lung disease/pulm HTN on home O2 4 L (previously was on 3 L prior to 2020), carotid artery stenosis, T2DM, HTN, and a.fib who presents with worsening dyspnea. He had COVID-19 over 2020, and ultimately was hospitalized at [facility] for respiratory failure x 5 days. Records suggest he was on large amounts of high-flow NC. At discharge from that stay his O2 was increased to 4 liters. He did have a lingering cough post-COVID but at this point it is only periodic. Since having COVID his symptoms of dyspnea have continued to get worse. Several weeks ago he was outside in the cold fixing his furnace. He was very short of breath and when he walked into his home the dyspnea worsened, then he passed out. He was faint before he passed out that day. He passed out for about 1 minute on the porch. He had no associated chest pain or palpitations. A few minutes later his and a neighbor got him up from the ground, got him to his feet, took just a few steps, then passed out again. 2nd episode lasted <1 minute, but states he was not "coherent" for about 10 minutes following the 2nd episode. states he looked ashen during the 2nd passing out episode. He did not have low blood sugar during this episode. He then spent the rest of the day very tired and sleeping. Since the above he has had near-syncope several times. If he stands too long he feels faint, then he sits down and the symptoms go away. In 2020 he did have perhaps 1-2 episodes of syncope (summer 2020, and fall 2020). He has FLORIAN with walking about 10-15 feet now. He uses CPAP at for KISHAN, and blends the 4 liters into it. He dialyzes in [place] which [facility]. [facility]" is the nephrology unit. He has been on dialysis for 5 years. Makes no urine/anuric. CKD/ESRD is 2nd to T2DM. Sees animal control specialist in [place]. Rag Baler is Dr Mojica. Denies h/o PE/DVT. Principal Diagnosis Volume overload Syncope Discharge Exam Constitutional WD/WN, vitals as above Eyes EOM intact bilaterally; no conjunctival abnormality ENMT external ear and nose normal, oropharynx normal Neck trachea midline, no thyromegaly normal visual inspection Respiratory normal respiratory effort, lungs clear to auscultation no respiratory distress Cardiovascular RRR, no murmur, no edema Gastrointestinal (Abdomen) Inspection/Auscultation: abdomen normal to inspection; abdomen not distended Musculoskeletal no cyanosis or clubbing, extremities motor strength 5/5 Skin no rashes, warm and dry Neurologic moves all extremities and awake Psychiatric Orientation: alert, oriented to person and cooperative Discharge Data Allergies Allergy/AdvReac Type Severity Reaction Status Date / Time codeine Allergy Mild DELIRIUM,ME Verified 04/07/21 11:01 AN tramadol Allergy Mild nausea and Verified 04/07/21 11:01 vomiting Consultations 04/07/21 10:59 ED Decision to Admit Stat 04/07/21 11:56 Consult Nephrology Routine 04/07/21 18:07 Burn CD for patient Routine Consult Cardiology Routine 04/09/21 14:41 Consult [facility] rigging up worker Routine Procedures Performed Operation Date: 04/08/21 15:30 Actual Procedures p Cineradiography w/Routine Exam - Nikita Denis MD p Cath, Left with Cors and Vent - Nikita Denis MD s POBA SGL Vessel - Az Law MD s Ultrasound Vascular Access - Nikita Denis MD Ordered Studies 04/07/21 11:48 CT angio chest PE protocol Urgent 04/08/21 15:47 CL Cath Imgs for PACS use only Routine 04/09/21 15:11 US liver Routine Hospital Course (1) Dyspnea on exertion: Patient has had chronic hypoxic respiratory failure for several years. By report he had had a chest tube in the past on the left side for recurrent pleural effusion - managed by Dr Victor Hugo Wall in 2019. He went on O2 around that time. He has seen pulmonary at [facility] and has been diagnosed with restrictive lung disease and pulmonary HTN but no obstructive disease. Prior to COVID-19 pneumonia in 01/16-02/15 he did have dyspnea on exertion and a 3 L NC O2 requirement. However, since his COVID recovery, he has required 4 L and his dyspnea is much worse and progressive. Little activity leads to dyspnea (e.g. walking 10 feet, walking up a flight of steps, etc). He does get some chest tightness with his dyspnea at times. CTA chest -negative for PEs; increase in size of pulmonary nodules, no evidence of pneumonia, there is also abnormal lesions in liver that are suspicious for metastatic disease * continue NC O2 continuously, 4 liters * continue CPAP at HS for KISHAN * PFT 03/20/19 show restrictive pathology, does have environmental exposures and second hand smoke * * Dobutamine stress test was positive for possible circumflex lesion left heart cath was positive for obtuse marginal lesion of circumflex which was an ostial lesion and could not be stented medical management recommended therefore his dyspnea can be an anginal equivalent at this time patient will need dual antiplatelet therapy isosorbide mononitrate 30, is on amlodipine will consider switching this out for beta-alesia with after discussion with cardiac medicine and we will also continue atorvastatin at 40 PER Pulmonary visit 09/04/19 Patient's shortness of breath and hypoxemia are multifactorial and related to his diastolic heart failure, ESRD, deconditioning and anemia. I suspect he likely has secondary pulmonary hypertension in which the treatment is treating the underlying disorder such as a diastolic heart failure, obesity hypoventilation, KISHAN and volume status Echo from 02/01/21 shows pulmonary hypertension with Pulmonary artery pressure 58. After several aggressive sessions of HD, he felt much better. Was walking around, reported that his shortness of breath was at baseline or better. Requested to go home. (2) Syncope: Multiple episodes of syncope and pre-syncope over the last several weeks at home. He does have prodromal lightheadedness/faint feeling but not consistently. Previous work-up -- * echo - 02/01/21 - [facility] [place] - EF 55-60%, no WMA; no significant valvular h eart disease; mild right-sided ventricular dysfunction/cor pulmonale; moderate pulmonary HTN * carotid duplex study - 03/30/21 at [facility] - 50-69% ICA stenosis on right, none on left, antegrade flow through the vertebrals History of PAF at [facility] during his admission for COVID; he is in NSR during his ER stay today. Doubt the ICA stenosis on the right is causing his symptoms. - No telemetry events. No syncope while in the hospital. Again, patient felt well and requested discharge. Could consider Holter monitor if he has further events, but otherwise, no cause for sycnope noted while inpatient. (3) Mass of right lobe of liver: Patient has a 2.5 cm mass in the right lobe of the liver with possible satellite lesions. Patient did have a colonoscopy in [address] Moreno with polyps removed these were all negative by pathology likewise he had 2 EGDs with biopsies which were unremarkable for cancer. -> Reviewed image with radiology on day of discharge. [place] these were simple cysts. Recommended liver u/s which was done and consistent with cysts. However, given size change, recommend repeat liver u/s in 6 months. Patient informed of this. (4) History of COVID-19: 01/16 - 02/15 - 3 day stay at [facility], then 5 days at [facility]. Was on large quantity of HFNC O2 during that stay. Did not require intubation. (5) Chronic respiratory failure with hypoxia, on home O2 therapy: baseline NC O2 requirement 4 L continuously. on the basis of pulmonary HTN, restrictive lung disease - (6) Carotid artery stenosis: see above 03/2021 study with ICA stenosis on R - 50-69% (7) GERD (gastroesophageal reflux disease): cont PPI doubt his chest pain / tightness is from GERD (8) End-stage renal disease on hemodialysis: dialysis schedule M/W/ at [facility] in [place]. primary advertising analyst - Dr Josh Mojica. consult [facility] nephrology for HD assistance. dry weight = 106 kg (9) Restrictive lung disease secondary to obesity: dx with such by [facility] Pulmonary in the past (10) Obstructive sleep apnea: on CPAP at home with O2 blended (11) CAD (coronary artery disease): known CAD. no prior h/o acute [place]. s/p caths in 2016, 2017, and 2019. L Cx stent - 2016. RCA stent - 2017. 2019 cath - patent stents. follows with Dr Norton in [place]. cont asa, metoprolol, plavix, statin, amlodipine. nitro prn. minimal troponin elevation - suspect 2nd to ESRD status. patient has had no chest pain in the last 2-3 days. EKG without acute ischemic changes today. [facility] on 04/08 with chronic stenosis. Unable to traverse stenosis. Plan for medical management. Added Imdur to regimen. (12) Diabetes mellitus type 2, uncontrolled: check a1c in am. BSGs ac/hs. DM diet. cont lantus 30 units daily. novolog ac/hs - start with correction factor 50, carb ratio 1:20. adjust as needed. (13) Hypertension: check orthostatics given his recent syncope/near-syncope. if not orthostatic, and if BPs remain high, adjust BP meds. (14) Moderate pulmonary hypertension: seen on echo in 01/2021. (15) DVT prophylaxis: heparin 5000 BID (16) PAF (paroxysmal atrial fibrillation): Episodes of PAF while hospitalized for COVID-19 pneumonia in 01/2021. Converted back to NSR? Given Rx for eliquis 2.5mg BID - after discharge, however, he discussed anticoagulation with Dr Norton, his medical laboratory technician. Decision made NOT to continue on eliquis. Tele monitoring while here for a.fib recurrence. (17) Elevated troponin: scant elevation. 0.07->0.10-> no ischemic symptoms at time of presentation. if troponin stays the same suspect 2nd to ESRD status. (18) Lung nodule, multiple: CTA chest on admission showed larger pulmonary nodule and 2 others. All 9 mm or less. Per Dejah criteria, believe he requires repeat CT chest in 3-6 months. - Informed patient - F/u with [facility] pulm. Has seen Dr. Rowe in the past. plan of care d/w patient's significant other at bedside Total Time Total Time Spent Total Time Spent (In Minutes): 45 Discharge Plan Discharge Items Patient Disposition: Home - Home Health Services Reason For Visit: DYSPNEA ON EXERTION; RECURRENT SYNCOPE; CHEST PAIN Discharge Diagnosis: Fluid overload, coronary artery disease Activity: Resume your previous activity Non-emergency contact: Primary Care Provider Call non-emergency contact if: your symptoms worsen Follow-up/Referrals: Francisco Ngo CRNP [Primary Care Provider] - Sid Rowe MD [Physician] - (Please see Dr. Rowe in 1-2 months for lung nodule follow-up.) Diet: Dialysis Renal and Heart Healthy Addtl Attending Provider Instructions: Mr. Walker, You were admitted with shortness of breath and passing out. We think you had some level of fluid overload, and extra dialysis helped take this off. You are doing better now, and we think you are ready to go. We did start one new medication in hopes that it will help prevent any chest pain or shortness of breath symptoms. LIVER: You had a spot on your liver that we saw on a CT scan. Initially there was concern this was cancer which is very scary. However, the radiologist reviewed the images, and felt this was likely a cyst (fluid filled sac) in the liver which is benign. An ultrasound confirmed it was just a fluid filled sac. They would like a repeat ultrasound in 6 months to be sure it is stable. Lungs: Likewise, you have several small spots/nodules on your lungs. The radiologist recommends you repeat a CT scan of your lungs in 3 - 6 months to be sure these are stable. Most small nodules are benign, but we follow them to be sure. Your PCP may refer you to a lung doctor to ensure you get the best possible follow-up for these nodules. You have seen him in the past, and could see him again if you are interested. Cath results: Distal OM3 is a small vessel supplying limited myocardium and subtotal occlusion seems to be more chronic in nature. Would avoid more aggressive attempts at intervention. Recommend intensified antianginal therapy for OM3, diagonal and RCA disease. Continue DAPT with aspirin and clopidogrel No need for additional intervention/cardiac testing prior to any upcoming noncardiac invasive testing or procedures. Clopidogrel can be held as needed. For your cath: ACTIVITY RECOMMENDATIONS: It is common to feel weak and fatigue for a few days. * Do not drive or operate any motorized equipment for the next three days. * Limit stair usage (2 or 3 trips a day only) for the next three days. * Do not lift anything heavier than 10 pounds for the next three days. * Do not engage in vigorous exercise or any sports for the next five days. * You may shower the day after your procedure, but do not immerse the area for three days. Cleanse the site gently with soap and water. SPECIAL CARE INSTRUCTIONS: * You may replace the pressure dressing or band-aid the morning after the procedure. * After your procedure, it is normal to have a small bruise or small lump at the site. Examine your site daily for any change in the bruise or lump, redness, swelling, drainage or numbness. Notify your doctor if any change. BLEEDING: * If there is a small amount of bleeding at the site, lie down and apply firm pressure with a clean cloth for ten minutes. When the bleeding stops, lie quietly keeping the procedure limb straight for six hours. Notify your doctor as soon as possible. * If the bleeding does not stop after ten minutes or if there is a large amount of bleeding or spurting, call 911 immediately. Continue to lie down and hold firm pressure until help arrives. SKIN IRRITATION: * You may experience some redness and/or swelling in the area where radiation was administered. If any skin irritation occurs, please contact your family physician. FOLLOW UP VISIT: Keep any scheduled doctor appointments. Pending Studies at Discharge: No Stand-Alone Forms: My [employer], Smoking Cessation Medications and DC Order Prescriptions: New isosorbide mononitrate 30 mg Tablet Extended Release 24 Hr 30 mg PO QAM Qty: 30 RF: 0 Continued albuterol sulfate [Ventolin HFA] 90 mcg/actuation HFA aerosol inhaler 2 puffs INH Q6H PRN (Reason: Shortness Of Breath Or Wheezing) Qty: 18 RF: 0 Breo Ellipta 100-25 mcg/dose blister with device 1 ea inhalation DAILY Qty: 1 RF: 3 amlodipine [Norvasc] 10 mg tablet 10 mg PO QAM Qty: 90 RF: 1 hydralazine 25 mg tablet 25 mg PO BID Qty: 60 RF: 5 (DME) blood sugar diagnostic Strip See Rx Instructions .ROUTE .MEDSUPPLY Qty: 50 RF: 3 miscellaneous medical supply Misc 1 ea miscellaneous DAILY MDD 4 lpm Qty: 1 RF: 0 montelukast 10 mg tablet 10 mg PO QAM Qty: 90 RF: 1 (DME) pen needle, diabetic [Easy Comfort Pen [place]] 31 gauge x 3/16" needle See Rx Instructions .ROUTE .MEDSUPPLY Qty: 100 RF: 3 atorvastatin 40 mg tablet 40 mg PO HS RF: 0 Toujeo SoloStar U-300 Insulin 300 unit/mL (1.5 mL) insulin pen 33 unit subcut QAM RF: 0 cholecalciferol (vitamin D3) 25 mcg (1,000 unit) capsule 25 mcg PO DAILY RF: 0 clopidogrel [Plavix] 75 mg tablet 75 mg PO QAM RF: 0 metoprolol tartrate [Lopressor] 50 mg tablet 50 mg PO BID RF: 0 aspirin 81 mg Tablet,Chewable 81 mg PO QAM RF: 0 omeprazole 20 mg capsule,delayed release(DR/EC) 20 mg PO DAILY Qty: 30 RF: 5 acetaminophen [Tylenol] 325 mg Capsule 650 mg PO Q6H PRN (Reason: Pain) RF: 0 Discharge Orders: Discharge Order (Routine); Ordered 04/09/21 Ordered By: Jamal Alvarado Admission Data Admit Date/Time: 04/07/21 12:00 Attending Provider: Jamal Alvarado Admit Provider: John Otero Primary Care Provider: Francisco Ngo Other Providers: Julian Hilario ; Nikita Denis ; Jamal Alvarado Other Interventions: Discharge Summary Assessment (RN) Last Done: 04/09/21 17:04 Coding Level of Care Code D/C DAY MANAGEMENT >30 MINS Diagnoses Dyspnea on exertion R06.00 Syncope R55 Syncope type: unspecified Mass of right lobe of liver R16.0 History of COVID-19 Z86.16 Chronic respiratory failure with hypoxia, on home O2 therapy J96.11; Z99.81 Carotid artery stenosis I65.29 GERD (gastroesophageal reflux disease) K21.9 End-stage renal disease on hemodialysis N18.6; Z99.2 Restrictive lung disease secondary to obesity J98.4; E66.9 Obstructive sleep apnea G47.33 CAD (coronary artery disease) I25.10 Coronary Disease-Associated Artery/Lesion type: [place] artery [place] vs. transplanted heart: [place] heart Associated angina: without angina Diabetes mellitus type 2, uncontrolled E11.65 Glycemic state: with hyperglycemia Hypertension I10 Moderate pulmonary hypertension I27.20 DVT prophylaxis Z29.9 PAF (paroxysmal atrial fibrillation) I48.0 Elevated troponin R77.8 Lung nodule, multiple R91.8
[2021-04-09] MEDS ORDERED: MONTELUKAST SODIUM 10 MG TABLET PO SCH (21:00)
== END 2021-04-09 18:42 | disposition home or self-care (01) | DRG 286 ==
LOC: ED 08:39 → EDINP 12:00 → SUATTDRO 12:00 → EDINP 04-08 15:23 → 2S 04-08 17:44

== ENCOUNTER 2022-01-25 16:00 | Inpatient (IN) ==
[2022-01-25 16:47] LABS: Basophils # (auto) 0.07 K/uL (0-0.2); Basophils % (auto) 0.7 %; Eosinophils # (auto) 0.03 K/uL (0-0.50); Eosinophils % (auto) 0.3 %; Hematocrit (blood only) 32.9 % (40.1-51.0); Hemoglobin 10.6 g/dl (14.0-18.0); Immature Granulocytes # (auto) 0.05 K/uL (0.00-0.02); Immature Granulocytes % (auto) 0.5 %; Lymphocytes # (auto) 1.06 K/uL (1.2-3.4); Lymphocytes % (auto) 11.1 %; Mean Corpuscular Hemoglobin 30.5 pg (25.0-34.0); Mean Corpuscular Hgb Conc 32.2 g/dL (32.0-36.0); Mean Corpuscular Volume 94.5 fL (80.0-100.0); Mean Platelet Volume 10.4 fL (9.4-12.4); Monocytes % (auto) 8.4 %; Neutrophils # (auto) 7.56 K/uL (1.4-6.5); Platelet Count 249 K/uL (130-400); RDW Coefficient of Variation 16.4 % (11.5-14.5); RDW Standard Deviation 56.2 fL (36.4-46.3); Red Blood Count 3.48 M/uL (4.63-6.08); White Blood Count 9.57 K/ul (4.8-10.8)
[2022-01-25 17:01] LABS: INR 1.2 (0.9-1.1); Partial Thromboplastin Ratio 1.3; Partial Thromboplastin Time 35.9 Seconds (21.0-31.0); Prothrombin Time 12.9 Seconds (9.0-12.0)
[2022-01-25 17:30] LABS: Alanine Aminotransferase < 3 U/L (7-52); Albumin Globulin Ratio 1.1 (0.9-2); Albumin Level 4.1 gm/dl (3.4-5.0); Alkaline Phosphatase 182 U/L (34-104); Anion Gap 12 (3-11); Aspartate Aminotransferase 11 U/L (13-39); BUN Creatinine Ratio 3.2 (10-20); Bilirubin,Total 0.8 mg/dl (0.2-1.0); Blood Urea Nitrogen 16 mg/dl (6-23); Calcium 9.3 mg/dl (8.5-10.1); Carbon Dioxide 33 mmol/L (21-32); Chloride 90 mmol/L (98-107); Est GFR (African American) 14.2 ml/min; Est GFR (Non-African American) 12.3 ml/min; Globulin 3.9 gm/dl (2.5-4.0); Glucose 206 mg/dl (70-99(Fasting)); Magnesium 1.9 mg/dl (1.7-2.4); Potassium 3.9 mmol/L (3.5-5.1); Sodium 135 mmol/L (136-145); Troponin I High Sensitivity 129.3 pg/ml (0-20)
--- NOTE | 2022-01-25 18:10 | XRay Report ---
XR chest 1V portable HISTORY: 51 years-old Male Sepsis acute sepsis COMPARISON: Chest radiograph and CTA chest at least 04/07/2021 TECHNIQUE: AP view of the chest FINDINGS: Cardiac silhouette is enlarged. Right pectoral pacer. No pneumothorax, pleural effusion, airspace con solidation or overt pulmonary edema. Mild pulmonary vascular congestion. Degenerative changes of the shoulders and spine. IMPRESSION: Cardiomegaly with pulmonary vascular congestion. ACT 112: Negative or not required by law. The above report was generated using voice recognition software. It may contain grammatical, syntax o r spelling errors. Electronically signed by: Jesus Chilel M.D. 01/25/2022 6:09 PM
--- NOTE | 2022-01-25 18:16 | XRay Report ---
XR foot RT min 3V routine HISTORY: 51 years-old Male "Gangrene in right foot" chronic right foot pain with open wound COMPARISON: None TECHNIQUE: 3 views of the right foot FINDINGS: Arterial calcifications. Diffuse soft tissue swelling. Prior partial resection of the second toe at t he level of the metatarsal phalangeal joint. There is pronounced osteomyelitis involving the second m etatarsal head extending into the distal diaphyseal aspect with pathologic fracturing. There is addit ional cortical erosions noted involving the base of the third proximal phalanx and first DIP joint. P ossible pathologic fracturing involving the base of the third proximal phalanx. Demineralized appeara nce of the bones. Mild to moderate osteoarthritis with spurring of the calcaneus. IMPRESSION: 1. Prior resection of the second toe. There is pronounced osteomyelitis involving the distal aspect o f the second metatarsal with associated pathologic fracturing. 2. Possible additional cortical erosions of the third proximal phalanx and first DIP joint with third proximal phalangeal pathologic fracture. 3. Diffuse soft tissue swelling with arterial calcifications. ACT 112: Negative or not required by law. The above report was generated using voice recognition software. It may contain grammatical, syntax o r spelling errors. Electronically signed by: Jesus Chilel M.D. 01/25/2022 6:14 PM
--- NOTE | 2022-01-25 18:30 | Emergency Department Note ---
Impression & Plan Diabetic infection of right foot, End-stage renal disease on hemodialysis, Chronic respiratory failure with hypoxia, on home O2 therapy, Acute osteomyelitis of right foot ED Provider Note Provider: Justin Velasquez MD DATE OF SERVICE: 01/25/2022 CHIEF COMPLAINT: Right foot infection HISTORY OF PRESENT ILLNESS: Patient is a 51-year-old gentleman history of end- stage renal disease on hemodialysis, chronic hypoxic respiratory failure due to restrictive lung disease and pulm hypertension on oxygen, type 2 diabetes, hypertension, and atrial fibrillation coming in today reporting gangrene/inf ection of his right foot. Patient states he had his right 2nd toe amputated on December 29 for an infection in his bone there. Was seen at the community liaison officer today by report. Patient and report that they were to set him up with IV antibiotics and a PICC line but they had no idea when this would happen. Patient evidently been having ongoing issues with shortness of breath and has been heart valves and this is been evolving over the past several weeks for which again he had hospitalization at [facility]. Recently had a pacemaker placed at [facility]. No fevers reported. Significant worsening of the foot wound developed after stitch removal about 2 weeks after the surgery. Patient has neuropathy of his lower feet sudden onset much pain. Was in a right walking boot before then. Has pictures on his phone showing worsening of the erythema and ulcerated area of the lateral plantar aspect of his right foot from last week and then earlier now with what appears to be the fifth toe blackening. Reports distant history of MRSA and C. difficile. Was on antibiotics last week for the pacemaker for several days but none this week. Did have dialysis earlier today. Patient evidently had some prior vascular studies of the legs which were indeterminant due to artery calcification. Has been on Eliquis and Plavix. REVIEW OF SYSTEMS: A total of 10 review of systems was obtained and negative except as stated above in the HPI. PAST MEDICAL HISTORY: As noted above MEDICATIONS: Reviewed with the patient is home medications SOCIAL HISTORY: and lives with PHYSICAL EXAM: GENERAL: alert and oriented in no acute distress on stretcher Head: normocephalic and atraumatic EYES: No injection, discharge or icterus. NECK: Trachea midline. ENT: Mucous membranes pink and moist. LUNGS: Airway patent. No retractions. Breath sounds clear HEART: Regular rate and rhythm. Some contusion of the right upper chest with Steri-Strips in place over what appears to be an implanted pacemaker by his report. ABDOMEN: Soft and non-tender, without guarding or rebound. SKIN: Acyanotic, warm, dry, without rashes EXTREMITIES: Patient with bandaging of the left upper arm fistula. No bleeding. Thrill present. NEUROLOGICAL: No aphasia, facial droop, or slurred speech. Moving all e xtremities. Some decree sensation in the bilateral feet. EKG: Ventricularly paced rhythm 70 bpm. No PVC noted. QTc 544. Compared to previous from March of this year now in a paced rhythm. CONTINUOUS CARDIAC MONITORING: was ordered and showed a heart rate of 70 bpm in ventricular paced rhythm Patient's laboratory studies and imaging reviewed. Differential includes Cellulitis, abscess, MRSA infection, DVT, necrotizing fasciitis, dermatitis, drug eruption, allergic reaction, as well as other pathologies. IMPRESSION/MEDICAL DECISION MAKING: Low patient had triage laboratory studies ordered. No significant leukocytosis today. Mild anemia of 10.6. Patient has creatinine abnormality but no severe hyperkalemia likely secondary to history of dialysis. Triage did send a troponin which does return elevated but difficult without baseline to interpret if chronic from his dialysis on the high-sensitivity assay as he does have some chronic baseline troponin on the old assay. Recent hospitalization at [facility] for pacemaker placement and did have a cardiac catheterization in the middle of December. Not having active chest pain. Procalcitonin not significantly elevated, only 0.37. Negative COVID test. Stable oxygen usage. Not febrile. Does not appear septic. X-rays obtained with concerns at both the amputation site for possible infection and fractures. Appears to have probably some dry gangrene of the right fifth pinky toe. There is some slight abrasion/ulceration of the dorsal foot as well as the posterior right ankle appear likely from the boot he was wearing but do not appear grossly superinfected at this point. Culture taken from the wound on the lateral aspect of the right foot plantar area. Was bandaged and Betadine by podiatry earlier today so not sure anything will grow. Blood cultures obtained. ESR & CRP moderately elevated. Will need to be cautious given history of C. difficile but will need broad coverage given diabetic foot infection. Likely some component of osteomyelitis as well as gangrene. Does not appear to be necrotizing fasciitis and again the patient does not appear septic. Given a dose of Zosyn and daptomycin in discussion with pharmacy. Discussed with patient and and hospitalist contacted. DIAGNOSIS: Diabetic right foot infection, right foot osteomyelitis DISPOSITION: Hospitalist will evaluate Patient was agreeable with this plan. Past Med/Surg History Medical History Acute on chronic diastolic CHF (congestive heart failure) Anemia of chronic disease Arthritis CAD (coronary artery disease) 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) Diverticular disease Elevated troponin End-stage renal disease on hemodialysis ESRD (end stage renal disease) on dialysis History of COVID-19 (12/2020) Hyperkalemia Hyperlipidemia Hypertension Moderate pulmonary hypertension Nuclear sclerosis of both eyes Obstructive sleep apnea On home oxygen therapy Osteoarthritis, hip, bilateral Pleural effusion, bilateral Pneumonia Presence of arteriovenous fistula for hemodialysis Secondary pulmonary hypertension Status post placement of implantable loop recorder (07/07/21) Syncope Vitreous hemorrhage of right eye due to diabetes mellitus (12/04/18) Surgical History History of cardiac cath History of colonoscopy History of foot surgery History of heart artery stent History of placement of chest tube History of tooth extraction S/P arteriovenous (AV) fistula creation S/P bilateral cataract extraction (05/2021) S/P cardiac catheterization Family History Mother Diabetes Coronary heart disease Heart disease Hypertension Stroke Father Diabetes Coronary heart disease Heart disease Myocardial infarction Hypertension Stroke Other Kidney disease No family history of adverse response to anesthesia Denies family history of Ovarian cancer Prostate cancer Breast cancer Lung cancer Colorectal cancer Social History Smoking Status: Former smoker Second Hand Exposure: No; Hx Alcohol Use: No Hx Substance Use: No Preferred Language: Venezuelan Communication Ability: Effective Visual Impairment: No Limitations Hearing Ability: Normal Fly Fishing Guide Required: No Beliefs That Will Affect Care: None marital status: Single Current Living Situation: Spouse Current Living Situation Comment: lives with significant other near [place] current occupational status: disabled How many Children do You have: 0 Other Information That Helps 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 Safe at Home: Yes Childhood Exposure to Second-Hand Smoke: Yes Diet Comment: regular caffeine: No during the past year weight has: remained stable Dental Care, Regularly: No Physical Activity Frequency: 1-2 Times per Week Physical Activity Frequency Comment: walk Seatbelt Use: always Sunscreen Use: No Assistive Devices: CPAP and Glasses Allergies Allergies Allergy/AdvReac Type Severity Reaction Status Date / Time codeine Allergy Mild DELIRIUM,ME Verified 01/13/22 13:08 AN tramadol Allergy Mild nausea and Verified 01/13/22 13:08 vomiting Home Meds Home Medications Medication Instructions Recorded Confirmed aspirin 81 mg chewable tablet 81 mg PO QAM 05/06/18 01/13/22 clopidogrel 75 mg tablet (Plavix) 75 mg PO QAM 04/05/19 01/13/22 atorvastatin 40 mg tablet 40 mg PO HS 09/04/19 01/13/22 midodrine 5 mg tablet 5 mg PO TID 01/13/22 01/13/22 ranolazine 500 mg tablet,extended 500 mg PO QAM 01/13/22 01/13/22 release,12 hr amiodarone 200 mg tablet mg PO QAM 01/25/22 montelukast 10 mg tablet 10 mg PO HS 01/25/22 Previous Rx's Medication Instructions Recorded albuterol sulfate 90 mcg/actuation 2 puffs inhalation Q6H PRN 07/02/19 aerosol inhaler (Ventolin HFA) Shortness Of Breath Or Wheezing #18 grams fluticasone furoate 100 1 ea inhalation DAILY #1 ea 01/30/20 mcg-vilanterol 25 mcg/dose inhalation powder (Breo Ellipta) blood sugar diagnostic #50 ea 12/07/20 miscellaneous medical supply 1 ea miscellaneous DAILY #1 ea 03/08/21 pen needle, diabetic 31 gauge x #100 ea 03/11/21/" (Easy Comfort Pen Wingo) insulin glargine U-300 conc 300 33 unit (0.11 mL) subcut QAM #4.5 11/14/21 unit/mL (1.5 mL) subcutaneous pen mL (Toujeo SoloStar U-300 Insulin) acetaminophen 500 mg capsule 1,000 mg PO TID PRN Pain #180 caps 11/21/21 cholecalciferol (vitamin D3) 25 25 mcg PO DAILY #90 caps 11/21/21 mcg (1,000 unit) capsule blood sugar diagnostic (OneTouch #50 ea 12/20/21 Ultra Test strips) hydralazine 25 mg tablet 25 mg PO BID #60 tabs 01/03/22 apixaban 5 mg tablet (Eliquis) 5 mg PO BID #60 tabs 01/11/22 omeprazole 40 mg capsule,delayed 40 mg PO DAILY #30 caps 01/11/22 release Results & Data (ED) Vital Signs Vital Signs - 24 hr 01/25/22 16:05 01/25/22 18:01 01/25/22 18:01 Temperature 36.8 C Temperature Source Temporal Artery Scan Pulse Rate 70 Pulse Rate [Finger] 76 Respiratory Rate 16 18 Respiratory Effort / Characteristics Non-Labored Spontaneous Respiratory Depth Normal Respiratory Pattern Regular Blood Pressure 154/89 H Blood Pressure [Right Arm] 146/84 H Blood Pressure Mean 110 Blood Pressure Mean [Right Arm] 104 Pulse Oximetry 100 98 Oxygen Delivery Method Nasal Cannula Room Air Nasal Cannula Oxygen Flow Rate 4 4 Sepsis Recent Fever Within 48 Hours No Sepsis New/Unexplained Change in Mental Status N/A Sepsis Action Taken by Nursing No Action Required Laboratory Data Result diagrams: 01/25/22 16:36 01/25/22 16:36 Lab Results 01/25/22 01/25/22 01/25/22 Range/Units 16:25 16:36 16:36 WBC 9.57 (4.8-10.8) K/ul RBC 3.48 L (4.63-6.08) M/uL Hgb 10.6 L (14.0-18.0) g/dl Hct 32.9 L (40.1-51.0) % MCV 94.5 (80.0-100.0) fL MCH 30.5 (25.0-34.0) pg MCHC 32.2 (32.0-36.0) g/dL RDW Std Deviation 56.2 H (36.4-46.3) fL RDW Coeff of Octavio 16.4 H (11.5-14.5) % Plt Count 249 (130-400) K/uL MPV 10.4 (9.4-12.4) fL Immature Gran % (Auto) 0.5 % Neut % (Auto) 79.0 % Lymph % (Auto) 11.1 % Hendry % (Auto) 8.4 % Eos % (Auto) 0.3 % Baso % (Auto) 0.7 % Neut # (Auto) 7.56 H (1.4-6.5) K/uL Lymph # (Auto) 1.06 L (1.2-3.4) K/uL Hendry # (Auto) 0.80 (0.24-0.82) K/uL Eos # (Auto) 0.03 (0-0.50) K/uL Baso # (Auto) 0.07 (0-0.2) K/uL Immature Gran # (Auto) 0.05 H (0.00-0.02) K/uL ESR (0-20) mm/hr PT 12.9 H (9.0-12.0) Seconds INR 1.2 H (0.9-1.1) APTT 35.9 H (21.0-31.0) Seconds PTT Ratio 1.3 Sodium (136-145) mmol/L Potassium (3.5-5.1) mmol/L Chloride (98-107) mmol/L Carbon Dioxide (21-32) mmol/L Anion Gap (3-11) BUN (6-23) mg/dl Creatinine (0.6-1.4) mg/dl Est Cr Clr Drug Dosing Est GFR ( Amer) ml/min Est GFR (Non-Af Amer) ml/min BUN/Creatinine Ratio (10-20) Glucose (70-99(Fasting)) mg/dl Calcium (8.5-10.1) mg/dl Magnesium (1.7-2.4) mg/dl Total Bilirubin (0.2-1.0) mg/dl AST (13-39) U/L ALT (7-52) U/L Alkaline Phosphatase (34-104) U/L Troponin I High Sens (0-20) pg/ml C-Reactive Protein (0-0.5) mg/dl Total Protein (6.0-8.3) gm/dl Albumin (3.4-5.0) gm/dl Globulin (2.5-4.0) gm/dl Albumin/Globulin Ratio (0.9-2) Procalcitonin (0-0.5) ng/ml SARS-CoV-2, RNA, NAAT NEGATIVE (NEGATIVE) 01/25/22 01/25/22 01/25/22 Range/Units 16:36 16:36 16:36 WBC (4.8-10.8) K/ul RBC (4.63-6.08) M/uL Hgb (14.0-18.0) g/dl Hct (40.1-51.0) % MCV (80.0-100.0) fL MCH (25.0-34.0) pg MCHC (32.0-36.0) g/dL RDW Std Deviation (36.4-46.3) fL RDW Coeff of Octavio (11.5-14.5) % Plt Count (130-400) K/uL MPV (9.4-12.4) fL Immature Gran % (Auto) % Neut % (Auto) % Lymph % (Auto) % Hendry % (Auto) % Eos % (Auto) % Baso % (Auto) % Neut # (Auto) (1.4-6.5) K/uL Lymph # (Auto) (1.2-3.4) K/uL Hendry # (Auto) (0.24-0.82) K/uL Eos # (Auto) (0-0.50) K/uL Baso # (Auto) (0-0.2) K/uL Immature Gran # (Auto) (0.00-0.02) K/uL ESR 66 H (0-20) mm/hr PT (9.0-12.0) Seconds INR (0.9-1.1) APTT (21.0-31.0) Seconds PTT Ratio Sodium 135 L (136-145) mmol/L Potassium 3.9 (3.5-5.1) mmol/L Chloride 90 L (98-107) mmol/L Carbon Dioxide 33 H (21-32) mmol/L Anion Gap 12 H (3-11) BUN 16 (6-23) mg/dl Creatinine 4.99 H* (0.6-1.4) mg/dl Est Cr Clr Drug Dosing Not Reportable Est GFR ( Amer) 14.2 ml/min Est GFR (Non-Af Amer) 12.3 ml/min BUN/Creatinine Ratio 3.2 L (10-20) Glucose 206 H (70-99(Fasting)) mg/dl Calcium 9.3 (8.5-10.1) mg/dl Magnesium 1.9 (1.7-2.4) mg/dl Total Bilirubin 0.8 (0.2-1.0) mg/dl AST 11 L (13-39) U/L ALT < 3 L (7-52) U/L Alkaline Phosphatase 182 H (34-104) U/L Troponin I High Sens 129.3 H* (0-20) pg/ml C-Reactive Protein (0-0.5) mg/dl Total Protein 8.0 (6.0-8.3) gm/dl Albumin 4.1 (3.4-5.0) gm/dl Globulin 3.9 (2.5-4.0) gm/dl Albumin/Globulin Ratio 1.1 (0.9-2) Procalcitonin 0.37 (0-0.5) ng/ml SARS-CoV-2, RNA, NAAT (NEGATIVE) 01/25/22 Range/Units 16:36 WBC (4.8-10.8) K/ul RBC (4.63-6.08) M/uL Hgb (14.0-18.0) g/dl Hct (40.1-51.0) % MCV (80.0-100.0) fL MCH (25.0-34.0) pg MCHC (32.0-36.0) g/dL RDW Std Deviation (36.4-46.3) fL RDW Coeff of Octavio (11.5-14.5) % Plt Count (130-400) K/uL MPV (9.4-12.4) fL Immature Gran % (Auto) % Neut % (Auto) % Lymph % (Auto) % Hendry % (Auto) % Eos % (Auto) % Baso % (Auto) % Neut # (Auto) (1.4-6.5) K/uL Lymph # (Auto) (1.2-3.4) K/uL Hendry # (Auto) (0.24-0.82) K/uL Eos # (Auto) (0-0.50) K/uL Baso # (Auto) (0-0.2) K/uL Immature Gran # (Auto) (0.00-0.02) K/uL ESR (0-20) mm/hr PT (9.0-12.0) Seconds INR (0.9-1.1) APTT (21.0-31.0) Seconds PTT Ratio Sodium (136-145) mmol/L Potassium (3.5-5.1) mmol/L Chloride (98-107) mmol/L Carbon Dioxide (21-32) mmol/L Anion Gap (3-11) BUN (6-23) mg/dl Creatinine (0.6-1.4) mg/dl Est Cr Clr Drug Dosing Est GFR ( Amer) ml/min Est GFR (Non-Af Amer) ml/min BUN/Creatinine Ratio (10-20) Glucose (70-99(Fasting)) mg/dl Calcium (8.5-10.1) mg/dl Magnesium (1.7-2.4) mg/dl Total Bilirubin (0.2-1.0) mg/dl AST (13-39) U/L ALT (7-52) U/L Alkaline Phosphatase (34-104) U/L Troponin I High Sens (0-20) pg/ml C-Reactive Protein 5.17 H (0-0.5) mg/dl Total Protein (6.0-8.3) gm/dl Albumin (3.4-5.0) gm/dl Globulin (2.5-4.0) gm/dl Albumin/Globulin Ratio (0.9-2) Procalcitonin (0-0.5) ng/ml SARS-CoV-2, RNA, NAAT (NEGATIVE) Administered Medications Daptomycin 500 mg/ Syringe 10 mls @ 5 mls/min IV Q24H VICKY; Protocol Stop: 01/27/22 18:44 Last Admin: 01/25/22 19:34 Dose: 5 mls/min Documented By: JESUS Insulin Aspart (Insulin Aspart Per Unit) 0 units SC ACHS VICKY Stop: 02/24/22 20:59 Last Admin: 01/25/22 22:43 Dose: 1 units Documented By: JESUS Co-signed By: SULLY Insulin Glargine (Lantus Per Unit Charge) 15 units SQ BID VICKY Stop: 02/24/22 20:59 Last Admin: 01/25/22 22:44 Dose: Not Given Documented By: MED Ranolazine (Ranolazine 500 Mg Er Tab) 500 mg PO Q12H VICKY Stop: 02/24/22 20:59 Last Admin: 01/25/22 22:19 Dose: 500 mg Documented By: MED Discontinued Medications Piperacillin Sod/Tazobactam Sod (Zosyn) 4.5 gm in 120 mls @ 240 mls/hr IV NOW ONE Stop: 01/25/22 19:00 Last Infusion: 01/25/22 19:30 Dose: 0 mls/hr Documented By: machine i engraver: 01/25/22 18:47 Dose: 240 mls/hr Documented By: AY Imaging Data Radiologist's Impression: Chest X-Ray 01/25/22 16:07 XR chest 1V portable HISTORY: 51 years-old Male Sepsis acute sepsis COMPARISON: Chest radiograph and CTA chest at least 04/07/2021 TECHNIQUE: AP view of the chest FINDINGS: Cardiac silhouette is enlarged. Right pectoral pacer. No pneumothorax, pleural effusion, airspace consolidation or overt pulmonary edema. Mild pulmonary vascular congestion. Degenerative changes of the shoulders and spine. IMPRESSION: Cardiomegaly with pulmonary vascular congestion. ACT 112: Negative or not required by law. The above report was generated using voice recognition software. It may contain grammatical, syntax or spelling errors. Electronically signed by: Jesus Chilel M.D. 01/25/2022 6:09 PM Foot X-Ray 01/25/22 16:26 XR foot RT min 3V routine HISTORY: 51 years-old Male "Gangrene in right foot" chronic right foot pain with open wound COMPARISON: None TECHNIQUE: 3 views of the right foot FINDINGS: Arterial calcifications. Diffuse soft tissue swelling. Prior partial resection of the second toe at the level of the metatarsal phalangeal joint. There is pro nounced osteomyelitis involving the second metatarsal head extending into the distal diaphyseal aspect with pathologic fracturing. There is additional cortical erosions noted involving the base of the third proximal phalanx and first DIP joint. Possible pathologic fracturing involving the base of the third proximal phalanx. Demineralized appearance of the bones. Mild to moderate osteoarthritis with spurring of the calcaneus. IMPRESSION: 1. Prior resection of the second toe. There is pronounced osteomyelitis involving the distal aspect of the second metatarsal with associated pathologic fracturing. 2. Possible additional cortical erosions of the third proximal phalanx and first DIP joint with third proximal phalangeal pathologic fracture. 3. Diffuse soft tissue swelling with arterial calcifications. ACT 112: Negative or not required by law. The above report was generated using voice recognition software. It may contain grammatical, syntax or spelling errors. Electronically signed by: Jesus Chilel M.D. 01/25/2022 6:14 PM Discharge Plan Visit Data Chief Complaint: Foot Injury/Pain Stated Complaint: GANG GREEN IN RIGHT FOOT, ED Provider: Justin Velasquez Discharge Problem: Diabetic infection of right foot, End-stage renal disease on hemodialysis, Chronic respiratory failure with hypoxia, on home O2 therapy, Acute osteomyelitis of right foot Patient Disposition: Being Evaluated by Hospitalist Discharge Instructions Interventions: ED Discharge Assessment Last Done: 01/25/22 20:52
[2022-01-25] MEDS ORDERED: PIPERACILLIN/TAZOBACTAM 4.5 GM/120 ML BAG IV ONE (18:31)
[2022-01-25] MEDS ORDERED: DAPTOmycin 500 MG in SYRINGE 0 ML IV SCH (18:45)
--- NOTE | 2022-01-25 20:39 | History & Physical Report ---
Date of Service January 25, 2022 Assessment & Plan (1) Acute osteomyelitis of right foot: Plan: Patient is a 51-year-old male with past medical history of ESRD on Sunday dialysis, chronic hypoxemic respiratory failure secondary to restrictive lung disease and pulmonary hypertension on 4 L of oxygen at home, type 2 diabetes on 33 units daily of Toujeo, hypertension, atrial fibrillation, and pacemaker placement (see insertion 1 week ago) coming into the hospital for evaluation of a right foot infection. Patient has been started on daptomycin and Zosyn and is currently hemodynamically stable. An MRI has been ordered to evaluate for osteomyelitis, however, due to patient having a pacemaker, will likely be delayed until tomorrow. -Admit patient to PCU for treatment of infection of both soft tissue and likely bone -MRI of right foot ordered to evaluate extent of osteomyelitis -ESR and CRP suggestive of active osteomyelitis infection -Started on daptomycin daily and Zosyn every 12 hours on dialysis days, immediately after dialysis -Consulted podiatry and vascular surgery for evaluation for amputation of right foot, appreciate recommendations -ESR, CRP, CBC in morning -Blood cultures obtained, pending -Local wound culture taken but likely to be of little benefit -N.p.o. after midnight for anticipation of procedure. -Hold Eliquis, hold statin (2) Ulcer of extremity due to chronic venous insufficiency: Plan: See plan above (3) End-stage renal disease on hemodialysis: Plan: -Sunday hemodialysis with last dialysis completed today (see 01/25) -Consult nephrology, appreciate recommendations -Avoid nephrotoxic agents (4) PAF (paroxysmal atrial fibrillation): Plan: -Continue telemetry -Typically on Eliquis -Hold anticoagulation due to concern for possible procedure (5) Moderate pulmonary hypertension: Plan: - Stable, continue CPAP at night (6) GERD (gastroesophageal reflux disease): Plan: - Continue omeprazole (7) Restrictive lung disease secondary to obesity: Plan: - Continue CPAP at night as above -Continue Breo Ellipta, albuterol as needed, montelukast (8) Chronic diastolic heart failure: Plan: - Not currently on beta-alesia -Most recent echo on 01/08/2022 at [facility] consistent of left ventricular size moderately dilated, left ventricular hypertrophy, diffuse hypokinesis, left ventricular function mild to moderately decreased, ejection fraction of 35 to 40% -Due to latest ejection fraction of 35 to 40%, this is indicative of reduced ejection fraction heart failure, patient with benefit from beta-alesia, spironolactone, SGLT2 to be determined by day team (9) Obstructive sleep apnea: Plan: - CPAP as above (10) Hyperlipidemia: Plan: - Hold statin due to possible reaction with Zosyn (11) CAD (coronary artery disease): Plan: - Continue aspirin, Plavix, ranolazine (12) Diabetes mellitus type 2, uncontrolled: Plan: - Last A1c on 12/29 was 7.1 -Typically takes 33 units of Toujeo daily -Basal bolus with sliding scale and carb consistent diet while in hospital -Pharmacy glycemic consult placed, appreciate recommendations (13) Hypertension: Plan: -Continue hydralazine twice daily (14) Orthostatic hypotension: Plan: - Typically receives midodrine 3 times daily but will hold for now if he becomes hypotensive, consider restarting Disposition: Admit to PCU Diet: Carb consistent, dialysis diet DVT prophylaxis: Deirdre Fitzgerald on hold CODE STATUS: Full code History of Present Illness Chief Complaint: Foot infection Primary Care Provider: Kay Veras DO Patient is a 51-year-old male with past medical history of ESRD on Sunday dialysis, chronic hypoxemic respiratory failure secondary to restrictive lung disease and pulmonary hypertension on 4 L of oxygen at home, type 2 diabetes on 33 units daily of Toujeo, hypertension, atrial fibrillation, and pacemaker placement (see insertion 1 week ago) coming into the hospital for evaluation of a right foot infection. Patient was recently seen in [place] for multiple problems over the past month. On December 29, patient had an amputation of the second digit on the right due to infection. It seems that the patient was supposed to get set up with a PICC line with IV antibiotics, however, per patient history this had never happened. He reports that shortly after the amputation he began having erythema of the foot and had noticed a few days ago that his fifth right digit had become black and there was extensive infection proximal to the right fifth digit. This is what had brought him to the hospital for evaluation today. In addition to the amputation, patient is also has some cardiac difficulties which includes a history of symptomatic bradycardia requiring a pacemaker which was inserted approximately 1 week ago, he did receive short course of antibiotics after this. Because of the symptomatic bradycardia and elevated troponin during his hospitalization, the patient also had a heart catheterization which revealed a subtotal stenosis of the mid right coronary artery that was nonoperable. Patient was overall stable and able to be discharged home. Currently patient is here otherwise without any nausea, vomiting, chest pain, or headache. Does report that since having the symptomatic bradycardia a couple weeks ago, he has noticed that he has shortness of breath with ambulation. Denies any falls. In terms of his diabetes, reports good adherence with Toujeo and takes 33 units daily. Last A1c noted to be 7.1 on December 27. Regarding his end-stage renal disease on hemodialysis, he did receive dialysis today prior to coming to the hospital. He follows a Sunday W sunday schedule. Otherwise no other concerns or complaints at this time. ED course: Patient was brought to the emergency department via EMS from home. While in the emergency room, he was evaluated by one of our providers. Lab work was significant for ESR elevated at 66, creatinine at 4.99, alk phos at 182, high- sensitivity troponin at 129, C-reactive protein at 5.17. A right foot x-ray consistent with cortical erosions of the third proximal phalanx as well as noted arterial calcifications. Patient was given a dose of daptomycin and Zosyn for concern of osteomyelitis and dry gangrene based off of physical exam and imaging. Our service was then consulted for admission to the hospital for further treatment. Allergies Allergy/AdvReac Type Severity Reaction Status Date / Time codeine Allergy Mild DELIRIUM,ME Verified 01/13/22 13:08 AN tramadol Allergy Mild nausea and Verified 01/13/22 13:08 vomiting Home Medications Medication Instructions Recorded Confirmed Type aspirin 81 mg chewable tablet 81 mg PO QAM 05/06/18 01/13/22 History clopidogrel 75 mg tablet (Plavix) 75 mg PO QAM 04/05/19 01/13/22 History albuterol sulfate 90 mcg/actuation 2 puffs inhalation Q6H PRN 07/02/19 01/13/22 Rx aerosol inhaler (Ventolin HFA) Shortness Of Breath Or Wheezing #18 grams atorvastatin 40 mg tablet 40 mg PO HS 09/04/19 01/13/22 History fluticasone furoate 100 1 ea inhalation DAILY #1 ea 01/30/20 01/13/22 Rx mcg-vilanterol 25 mcg/dose inhalation powder (Breo Ellipta) blood sugar diagnostic #50 ea 12/07/20 01/13/22 Rx miscellaneous medical supply 1 ea miscellaneous DAILY #1 ea 03/08/21 01/13/22 Rx pen needle, diabetic 31 gauge x #100 ea 03/11/21 01/13/22 Rx 3/16" (Easy Comfort Pen Flora) insulin glargine U-300 conc 300 33 unit (0.11 mL) subcut QAM #4.5 11/14/21 01/13/22 Rx unit/mL (1.5 mL) subcutaneous pen mL (Toujeo SoloStar U-300 Insulin) acetaminophen 500 mg capsule 1,000 mg PO TID PRN Pain #180 caps 11/21/21 01/13/22 Rx cholecalciferol (vitamin D3) 25 25 mcg PO DAILY #90 caps 11/21/21 01/13/22 Rx mcg (1,000 unit) capsule blood sugar diagnostic (OneTouch #50 ea 12/20/21 01/13/22 Rx Ultra Test strips) hydralazine 25 mg tablet 25 mg PO BID #60 tabs 01/03/22 01/13/22 Rx apixaban 5 mg tablet (Eliquis) 5 mg PO BID #60 tabs 01/11/22 01/13/22 Rx omeprazole 40 mg capsule,delayed 40 mg PO DAILY #30 caps 01/11/22 01/13/22 Rx release midodrine 5 mg tablet 5 mg PO TID 01/13/22 01/13/22 History ranolazine 500 mg tablet,extended 500 mg PO QAM 01/13/22 01/13/22 History release,12 hr amiodarone 200 mg tablet mg PO QAM 01/25/22 History montelukast 10 mg tablet 10 mg PO HS 01/25/22 History Past Med/Surg History Medical History Acute on chronic diastolic CHF (congestive heart failure) Anemia of chronic disease Arthritis CAD (coronary artery disease) 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) Diverticular disease Elevated troponin End-stage renal disease on hemodialysis ESRD (end stage renal disease) on dialysis History of COVID-19 (12/2020) Hyperkalemia Hyperlipidemia Hypertension Moderate pulmonary hypertension Nuclear sclerosis of both eyes Obstructive sleep apnea On home oxygen therapy Osteoarthritis, hip, bilateral Pleural effusion, bilateral Pneumonia Presence of arteriovenous fistula for hemodialysis Secondary pulmonary hypertension Status post placement of implantable loop recorder (07/07/21) Syncope Vitreous hemorrhage of right eye due to diabetes mellitus (12/04/18) Surgical History History of cardiac cath History of colonoscopy History of foot surgery History of heart artery stent History of placement of chest tube History of tooth extraction S/P arteriovenous (AV) fistula creation S/P bilateral cataract extraction (05/2021) S/P cardiac catheterization Family History Mother Diabetes Coronary heart disease Heart disease Hypertension Stroke Father Diabetes Coronary heart disease Heart disease Myocardial infarction Hypertension Stroke Other Kidney disease No family history of adverse response to anesthesia Denies family history of Ovarian cancer Prostate cancer Breast cancer Lung cancer Colorectal cancer Social History Smoking Status: Former smoker Second Hand Exposure: No; Hx Alcohol Use: No Hx Substance Use: No Preferred Language: Bengali Communication Ability: Effective Visual Impairment: No Limitations Hearing Ability: Normal Bread Panner Required: No Beliefs That Will Affect Care: None marital status: Single Current Living Situation: Spouse Current Living Situation Comment: lives with significant other near [place] current occupational status: disabled How many Children do You have: 0 Other Information That Helps 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 Safe at Home: Yes Childhood Exposure to Second-Hand Smoke: Yes Diet Comment: regular caffeine: No during the past year weight has: remained stable Dental Care, Regularly: No Physical Activity Frequency: 1-2 Times per Week Physical Activity Frequency Comment: walk Seatbelt Use: always Sunscreen Use: No Assistive Devices: CPAP and Glasses Review of Systems Review of Systems: All systems reviewed & are unremarkable except as noted in HPI & below Physical Exam Constitutional: WD/WN, vitals as above + obese, cooperative and comfortable; no acute distress Eyes: + anicteric sclerae Neck: trachea midline, no thyromegaly Respiratory: normal respiratory effort, lungs clear to auscultation Cardiovascular: Rate/Rhythm: regular rate and regular rhythm Vessels: radial pulses present; no JVD and + dorsalis pedis pulses abnormal Extremities: + edema (+1 pitting edema of the right lower extremity to the mid tran) Chest (Breasts): Chest: + pacemaker (R side with overlying healing incision w/ steri strips) Gastrointestinal (Abdomen): normal bowel sounds, soft, nontender, no hepatosplenomegaly Musculoskeletal: Head/Neck/Chest: normocephalic and head atraumatic Skin: There is a right foot ulceration on the plantar aspect spanning from the right fifth digit to the distal portion of the calcaneus on the lateral aspect. Eschar covering the entirety of the right fifth digit as well as scattered eschar throughout the ulcer itself. Neurologic: moves all extremities Psychiatric: A+Ox3, euthymic affect Lymphatic: no cervical or axillary lymphadenopathy Results & Data Results & Data ([facility]) Vital Signs (Past 12 Hours) Vital Signs Temp Pulse Pulse Resp BP BP Pulse Ox 01/25/22 18:01 01/25/22 18:01 76 18 146/84 H 98 01/25/22 16:05 36.8 C 70 16 154/89 H 100 O2 Del Method O2 Flow Rate 01/25/22 18:01 Nasal Cannula 4 01/25/22 18:01 Room Air 01/25/22 16:05 Nasal Cannula 4 Code Status & VTE Plan VTE Prophylaxis Plan VTE Prophylaxis will be ordered: Yes Supervising Physician Co-Signing Physician Notes Resident Physician Supervision Note: I interviewed and examined the patient. Discussed with Dr. Angel Ngo and agree with findings and plan as documented in the note. Any exceptions or clarifications are listed here: [None] Patient presents with a wound on his foot. He recently had a second toe amputation. There is some concern of osteomyelitis at the remnant metatarsal. It is unclear whether the large eschar on the lateral edge of his foot is also involved. He also has a history of coronary disease and has an elevated high- sensitivity troponin. Patient is a dialysis patient and this likely affects interpretation of the troponin. His of any acute coronary changes on EKG. Because of concern for vascular supply and his history of diabetes with neuropathy and osteomyelitis on plain x-ray the patient will be scheduled for an MRI of his foot however he has a pacemaker and he will need to have this manipulated appropriately for the MRI. To be placed on daptomycin and Zosyn. He will have a vascular evaluation for the blood supply of his foot in case any surgical procedure would be required to optimize healing. His physical examination he appears chronically ill his cardiac exam is regular to slow with regard to its rate his lungs are clear his distal right extremity s hows loss of the second digit with fairly fresh surgical wound appearing and he does have a large eschar along the fifth digit of his foot and the lateral edge of his foot. Patient is admitted for diabetic foot infection osteomyelitis of the second metatarsal with concern for additional infection of his foot and the possible need for surgical procedure. Documented By: Jared Rangel MD (1) CAD (coronary artery disease) Associated angina: without angina Coronary Disease-Associated Artery/Lesion type: [place] artery [place] vs. transplanted heart: [place] heart Qualified Code(s): I25.10 - Atherosclerotic heart disease of [place] coronary artery without angina pectoris (2) Diabetes mellitus type 2, uncontrolled Glycemic state: with hyperglycemia Qualified Code(s): E11.65 - Type 2 diabetes mellitus with hyperglycemia
[2022-01-25] MEDS ORDERED: CARBOHYDRATES FOR HYPOGLYCEMIA PO PRN (20:54)
[2022-01-25] MEDS ORDERED: ALBUTEROL HFA 8 GM INHALER INH PRN (20:54)
[2022-01-25] MEDS ORDERED: GLUCOSE 40% GEL 15 GM TUBE PO PRN (20:54)
[2022-01-25] MEDS ORDERED: PHARMACY GLYCEMIC MGMT CONSULT PRN (20:54)
[2022-01-25] MEDS ORDERED: GLUCAGON FOR INJ 1 MG VIAL SQ PRN (20:54)
[2022-01-25] MEDS ORDERED: GLUCOSE 10 TAB/TUBE PO PRN (20:54)
[2022-01-25] MEDS ORDERED: DEXTROSE 50% 50 ML SYRINGE IV PRN (20:54)
[2022-01-25] MEDS ORDERED: POLYETHYLENE (MIRALAX) 17 GM PACK PO PRN (20:54)
[2022-01-25] MEDS ORDERED: LANTUS PER UNIT CHARGE SQ SCH (21:00)
[2022-01-25] MEDS: RANOLAZINE 500 MG ER TAB PO SCH (22:19)
[2022-01-25] MEDS: INSULIN ASPART PER UNIT SC SCH (22:43)
[2022-01-26 04:32] LABS: Basophils # (auto) 0.09 K/uL (0-0.2); Eosinophils # (auto) 0.06 K/uL (0-0.50); Eosinophils % (auto) 0.6 %; Hematocrit (blood only) 29.9 % (40.1-51.0); Hemoglobin 9.6 g/dl (14.0-18.0); Immature Granulocytes # (auto) 0.04 K/uL (0.00-0.02); Immature Granulocytes % (auto) 0.4 %; Lymphocytes # (auto) 1.08 K/uL (1.2-3.4); Lymphocytes % (auto) 11.4 %; Mean Corpuscular Hemoglobin 30.4 pg (25.0-34.0); Mean Corpuscular Hgb Conc 32.1 g/dL (32.0-36.0); Mean Corpuscular Volume 94.6 fL (80.0-100.0); Mean Platelet Volume 10.1 fL (9.4-12.4); Monocytes # (auto) 0.84 K/uL (0.24-0.82); Monocytes % (auto) 8.9 %; Neutrophils # (auto) 7.33 K/uL (1.4-6.5); Neutrophils % (auto) 77.7 %; Platelet Count 219 K/uL (130-400); RDW Coefficient of Variation 16.5 % (11.5-14.5); Red Blood Count 3.16 M/uL (4.63-6.08); White Blood Count 9.44 K/ul (4.8-10.8)
[2022-01-26] MEDS: PIPERACILLIN/TAZOBACTAM 4.5 GM in DEXTROSE 5% 100 ML IV SCH ×2 (04:58→16:57)
[2022-01-26 05:22] LABS: Albumin Globulin Ratio 1.1 (0.9-2); Albumin Level 3.6 gm/dl (3.4-5.0); BUN Creatinine Ratio 3.5 (10-20); Bilirubin,Total 0.8 mg/dl (0.2-1.0); C Reactive Protein 4.09 mg/dl (0-0.5); Calcium 8.8 mg/dl (8.5-10.1); Creatinine Clr Calc Pharmacy 16.7 ml/min; Est GFR (African American) 11.3 ml/min; Est GFR (Non-African American) 9.8 ml/min; Globulin 3.3 gm/dl (2.5-4.0); Total Protein 6.9 gm/dl (6.0-8.3)
[2022-01-26 06:58] LABS: Estimated Average Glucose 171 mg/dl; Hemoglobin A1C 7.6 % (4.5-5.6)
[2022-01-26] MEDS ORDERED: MIDODRINE HCL 2.5 MG TAB PO SCH (07:00)
--- NOTE | 2022-01-26 07:41 | Hospitalist Progress Note ---
Date of Service January 26, 2022 Assessment & Plan (1) Acute osteomyelitis of right foot: Plan: Patient is a 51-year-old male with past medical history of ESRD on Sunday dialysis, chronic hypoxemic respiratory failure secondary to restrictive lung disease and pulmonary hypertension on 4 L of oxygen at home, type 2 diabetes on 33 units daily of Toujeo, hypertension, atrial fibrillation, and pacemaker placement (see insertion 1 week ago) coming into the hospital for evaluation of a right foot infection. Patient has been started on daptomycin and Zosyn and is currently hemodynamically stable. An MRI has been ordered to evaluate for osteomyelitis, however, due to patient having a pacemaker, will likely be delayed until tomorrow. -MRI of right foot can not be completed due to recent pacemaker placement -ESR and CRP suggestive of active osteomyelitis infection; trending down (ESR 67-> 47) (CRP 5.17-> 4.09) -Started on daptomycin daily and Zosyn every 12 hours on dialysis days, immediately after dialysis -Consulted podiatry and vascular surgery for evaluation for amputation of right foot, appreciate recommendations -Blood cultures pending -Local wound culture taken but likely to be of little benefit -N.p.o. after midnight -Hold Eliquis, hold statin (2) Ulcer of extremity due to chronic venous insufficiency: Plan: See plan above (3) Elevated troponin: Plan: Elevated troponin on admission= 129, repeat 120 - Denies chest pain, ECG without ischemic changes -> likely secondary to ESRD - continue to monitor tele (4) End-stage renal disease on hemodialysis: Plan: -Sunday hemodialysis with last dialysis completed yesterday (01/25) -Consult nephrology, appreciate recommendations -Avoid nephrotoxic agents (5) PAF (paroxysmal atrial fibrillation): Plan: -Continue telemetry -Typically on Eliquis -Hold anticoagulation due to concern for possible procedure (6) Moderate pulmonary hypertension: Plan: - Stable, continue CPAP at night (7) GERD (gastroesophageal reflux disease): Plan: - Continue omeprazole (8) Restrictive lung disease secondary to obesity: Plan: - Continue CPAP at night as above -Continue Breo Ellipta, albuterol as needed, montelukast (9) Chronic diastolic heart failure: Plan: - Not currently on beta-alesia -Most recent echo on 01/08/2022 at [facility] consistent of left ventricular size moderately dilated, left ventricular hypertrophy, diffuse hypokinesis, left ventricular function mild to moderately decreased, ejection fraction of 35 to 40% -Consideration to start beta-alesia, spironolactone, SGLT2 as an OP (10) Obstructive sleep apnea: Plan: - CPAP as above (11) Hyperlipidemia: Plan: - Hold statin due to possible reaction with Zosyn (12) CAD (coronary artery disease): Plan: - Continue aspirin, Plavix, ranolazine (13) Diabetes mellitus type 2, uncontrolled: Plan: - Last A1c on 12/29 was 7.1 -Typically takes 33 units of Toujeo daily -Basal bolus with sliding scale and carb consistent diet while in hospital -Pharmacy glycemic consult placed, appreciate recommendations (14) Hypertension: Plan: -Continue hydralazine twice daily (15) Orthostatic hypotension: Plan: - Typically receives midodrine 3 times daily but will hold for now if he becomes hypotensive, consider restarting Disposition: Admit to PCU Diet: Carb consistent, dialysis diet DVT prophylaxis: SCDs, Eliquis on hold CODE STATUS: Full code Admission and Anticipated Discharge Date Admission Date: January 25, 2022 Supervising Physician Co-Signing Physician Notes Attending attestation Pt seen and examined in concert with Dr. Watkins. In agreement with the documented findings as noted in the resident documentation with any exceptions or additions as noted here. Resting comfortably in bed without acute complaint at time of examination. VS, nursing notes, imaging, labs reviewed. On examination, S1/S2 nl RRR no MCG. CTAB. Abd NT/ND BS+ve Acute osteomyelitis of the 3rd toe, right foot - podiatry, vascular surgery consult - BCx pending. Continue daptomycin, Zosyn as noted. Holding eliquis. ESRD on HD MWF - nephrology consult. Adjust medications as needed, avoid nephrotoxic medications. Paroxysmal AF - in sinus presently - holding Eliquis right now Else see resident documentation as noted. Subjective 51 year old male with a past medical history of ESRD on HD MWF, chronic hypoxemic respiratory failure secondary to restrictive lung disease and pulmonary hypertension on 4 L of oxygen at home, type 2 diabetes on 33 units daily of Toujeo, hypertension, atrial fibrillation, and pacemaker placed 1 week ago. Presenting with right foot infection. ED course significant for ESR= 66, creatine= 4.99 (BL), alk phos= 182, trop= 129m CRP= 5.17. X ray right foot consistent with cortical erosions of the third proximal phalanx as well as noted arterial calcifications. Started on Daptomycin + Zosyn to cover for osteomyelitis/dry gangrene. MRI pending. This morning he states he is feelig well. Denies any pain in his foot. Denies chest pain. dyspnea. Does not make urine. Review of Systems Review of Systems: As per HPI Physical Exam Constitutional: WD/WN, vitals as above + obese, cooperative and comfortable; no acute distress Neck: trachea midline, no thyromegaly Respiratory: normal respiratory effort, lungs clear to auscultation Cardiovascular: Rate/Rhythm: regular rate and regular rhythm Vessels: radial pulses present; no JVD and + dorsalis pedis pulses abnormal Extremities: + edema (+1 pitting edema of the right lower extremity to the mid tran) Chest (Breasts): Chest: + pacemaker (R side with overlying healing incision w/ steri strips) Gastrointestinal (Abdomen): normal bowel sounds, soft, nontender, no hepatosplenomegaly Musculoskeletal: Head/Neck/Chest: normocephalic and head atraumatic Skin: There is a right foot ulceration on the plantar aspect spanning from the right fifth digit to the distal portion of the calcaneus on the lateral aspect. Eschar covering the entirety of the right fifth digit as well as scattered eschar throughout the ulcer itself. Neurologic: moves all extremities Psychiatric: A+Ox3, euthymic affect Results & Data Results & Data ([facility]) Vital Signs (Past 12 Hours) Vital Signs Pulse Pulse Resp BP BP Pulse Ox Pulse Ox 01/26/22 05:03 70 100 01/26/22 04:30 139/79 01/26/22 04:30 70 21 100 01/26/22 04:00 70 20 97 01/26/22 04:00 133/85 01/26/22 03:30 141/82 H 01/26/22 03:30 71 15 99 01/26/22 03:00 126/76 01/26/22 03:00 82 14 98 01/26/22 02:30 125/68 01/26/22 02:30 72 15 96 01/26/22 02:00 75 21 98 01/26/22 02:00 120/64 01/26/22 01:30 108/55 L 01/26/22 01:30 71 17 99 01/26/22 01:00 127/76 01/26/22 01:00 70 100 01/26/22 00:30 122/60 01/26/22 00:30 70 13 99 01/26/22 00:00 70 100 01/26/22 00:00 120/59 L 01/25/22 23:30 108/78 01/25/22 23:30 70 100 01/25/22 23:00 143/75 H 01/25/22 23:00 71 98 01/25/22 22:30 155/85 H 01/25/22 22:30 70 22 98 01/25/22 22:00 70 15 100 01/25/22 22:00 136/83 01/25/22 21:30 70 18 01/25/22 21:30 152/80 H 01/25/22 21:00 121/67 01/25/22 21:00 70 16 01/25/22 20:30 147/68 H 01/25/22 20:30 73 01/25/22 20:00 70 18 98 01/25/22 20:00 151/80 H 01/26/22 02:48 70 12 125/68 97 01/25/22 22:21 98 01/25/22 22:21 70 20 136/83 99 01/25/22 21:42 70 22 152/80 H 100 O2 Del Method O2 Del Method O2 Flow Rate O2 Flow Rate 01/26/22 05:03 Nasal Cannula 4 01/26/22 04:30 01/26/22 04:30 01/26/22 04:00 01/26/22 04:00 01/26/22 03:30 01/26/22 03:30 01/26/22 03:00 01/26/22 03:00 01/26/22 02:30 01/26/22 02:30 01/26/22 02:00 01/26/22 02:00 01/26/22 01:30 01/26/22 01:30 01/26/22 01:00 01/26/22 01:00 01/26/22 00:30 01/26/22 00:30 01/26/22 00:00 01/26/22 00:00 01/25/22 23:30 01/25/22 23:30 01/25/22 23:00 01/25/22 23:00 01/25/22 22:30 01/25/22 22:30 01/25/22 22:00 01/25/22 22:00 01/25/22 21:30 01/25/22 21:30 01/25/22 21:00 01/25/22 21:00 01/25/22 20:30 01/25/22 20:30 01/25/22 20:00 01/25/22 20:00 01/26/22 02:48 Room Air 01/25/22 22:21 Nasal Cannula 4 01/25/22 22:21 Nasal Cannula 4 01/25/22 21:42 Nasal Cannula 4 Resident Activity Tracking Resident Involvement: Resident Care Provided Care Provided: Adult Hospital Medicine (1) CAD (coronary artery disease) Associated angina: without angina Coronary Disease-Associated Artery/Lesion type: [place] artery [place] vs. transplanted heart: [place] heart Qualified Code(s): I25.10 - Atherosclerotic heart disease of [place] coronary artery without angina pectoris (2) Diabetes mellitus type 2, uncontrolled Glycemic state: with hyperglycemia Qualified Code(s): E11.65 - Type 2 diabetes mellitus with hyperglycemia
[2022-01-26] MEDS: INSULIN ASPART PER UNIT SC SCH ×4 (09:27→21:23)
[2022-01-26] MEDS: LANTUS PER UNIT CHARGE SQ SCH (09:27)
[2022-01-26] MEDS: hydrALAZINE HCL 25 MG TAB PO SCH ×2 (09:30→21:53)
[2022-01-26] MEDS: RANOLAZINE 500 MG ER TAB PO SCH ×2 (09:31→21:53)
[2022-01-26] MEDS: MONTELUKAST SODIUM 10 MG TABLET PO SCH (09:31)
[2022-01-26] MEDS: PANTOprazole 40 MG TAB PO SCH (09:31)
[2022-01-26] MEDS: ASPIRIN 81 MG ECTAB PO SCH (09:32)
[2022-01-26] MEDS: FLUTICASONE/VILANTEROL 100/25MCG 14 PUFFS/INHALER INH SCH (09:32)
[2022-01-26] MEDS: CHOLECALCIFEROL 1,000 UNITS 25 MCG TAB PO SCH (09:32)
[2022-01-26] MEDS: CLOPIDOGREL BISULFATE 75 MG TAB PO SCH (09:36)
--- NOTE | 2022-01-26 09:41 | Pharmacy Report ---
Pharmacy Glycemic Short Note 2 - Date of Service January 26, 2022 - Glycemic Short BSG Results (Last 24 hours): 01/25/22 01/25/22 01/26/22 16:36 22:17 04:06 Glucose 206 H 130 H POC Glucose 145 H 01/26/22 09:08 Glucose POC Glucose 121 H OUTPATIENT ANTIDIABETIC REGIMEN: * Toujeo 33 units SQ Daily * A1c 7.6% 01/26/22 ASSESSMENT: * 51 yo male, admitted with osteomyelitis of right foot on IV Zosyn and Daptomycin, PMH of ESRD on MWF dialysis, chronic respiratory failure on 4 L of oxygen at home, Type 2 diabetes on 33 units daily of Toujeo, HTN, AF, and pacemaker placement (1 week ago). * Patient refused HS dose of basal insulin ordered last night by admitting provider, received 1 unit of NovoLog correctional insulin, euglycemic this morning. * Patient managed on basal insulin only at home, will begin Lantus at about half of home basal dose, and use NovoLog for correctional and prandial insulin while inpatient. PLAN FOR INPATIENT GLYCEMIC CONTROL: * Basal insulin * Lantus 15 units SQ Daily * Bolus insulin * NovoLog per scale ACHS or Q6hrs while NPO * Goal Range: Low 110 mg/dL - High 140 mg/dL * Correction Factor: 25 mg/dL/unit * Nutritional / Prandial insulin per carb ratio of 1 unit per 8 grams CHO consumed
--- NOTE | 2022-01-26 10:18 | Billing Data ---
Date of Service January 26, 2022 Coding Level of Care Code 02311 Initial Inpt Care Lvl 3
[2022-01-26 12:48] LABS: Creatinine Clr Calc Pharmacy 20.2 ml/min
--- NOTE | 2022-01-26 12:50 | Nephrology Consultation ---
Date of Consultation January 26, 2022 Assessment & Plan (1) End-stage renal disease on hemodialysis: No emergent indication for treatment. Electrolytes controlled. Volume status acceptable. Plan HD tomorrow per MWF schedule. AVF functioning well. Records from [facility] requested. Medications appropriate for kidney function. Renal diet. Repeat metabolic profile in the AM. (2) Diabetic infection of right foot: Renal dosing dapto and Zosyn. Suspected osteomyelitis. Management per hospitalist team. (3) Anemia of chronic disease: YOLETTE therapy to be provided with HD. No signs of active bleeding. History of Present Illness Reason for Consultation: ESRD Requesting Physician: Az Hicks MD Attending Physician: Az Hicks MD History of Present Illness Mr. Ryan Walker is a 51 year-old male with DM, hypertension, CAD, restrictive lung disease with pulmonary hypertension, atrial fibrillation s/sp pacemaker placement 1 week ago, and ESRD. He was admitted to [facility] with a diabetic fott infection on his right foot. Imaging concerning for osteomyelitis. Blood and wound culture results pending. Started on antibiotic therapy with daptomycin and Zosyn. The patient was seen and evaluated in the ER this AM. No fevers or chills. Denies pain. Ryan receives HD at [facility] on a MWF schedule. He completed treatment on Sunday without complications. He has a well functioning LUE AVF. 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 Nephrology consultation requested to assist with inpatient HD. Allergies Allergy/AdvReac Type Severity Reaction Status Date / Time codeine Allergy Mild DELIRIUM,ME Verified 01/13/22 13:08 AN tramadol Allergy Mild nausea and Verified 01/13/22 13:08 vomiting Home Medications Medication Instructions Recorded Confirmed Type aspirin 81 mg chewable tablet 81 mg PO QAM 05/06/18 01/13/22 History clopidogrel 75 mg tablet (Plavix) 75 mg PO QAM 04/05/19 01/13/22 History albuterol sulfate 90 mcg/actuation 2 puffs inhalation Q6H PRN 07/02/19 01/13/22 Rx aerosol inhaler (Ventolin HFA) Shortness Of Breath Or Wheezing #18 grams atorvastatin 40 mg tablet 40 mg PO HS 09/04/19 01/13/22 History fluticasone furoate 100 1 ea inhalation DAILY #1 ea 01/30/20 01/13/22 Rx mcg-vilanterol 25 mcg/dose inhalation powder (Breo Ellipta) blood sugar diagnostic #50 ea 12/07/20 01/13/22 Rx miscellaneous medical supply 1 ea miscellaneous DAILY #1 ea 03/08/21 01/13/22 Rx pen needle, diabetic 31 gauge x #100 ea 03/11/21 01/13/22 Rx 3/16" (Easy Comfort Pen [place]) insulin glargine U-300 conc 300 33 unit (0.11 mL) subcut QAM #4.5 11/14/21 01/13/22 Rx unit/mL (1.5 mL) subcutaneous pen mL (Toujeo SoloStar U-300 Insulin) acetaminophen 500 mg capsule 1,000 mg PO TID PRN Pain #180 caps 11/21/21 01/13/22 Rx cholecalciferol (vitamin D3) 25 25 mcg PO DAILY #90 caps 11/21/21 01/13/22 Rx mcg (1,000 unit) capsule blood sugar diagnostic (OneTouch #50 ea 12/20/21 01/13/22 Rx Ultra Test strips) hydralazine 25 mg tablet 25 mg PO BID #60 tabs 01/03/22 01/13/22 Rx apixaban 5 mg tablet (Eliquis) 5 mg PO BID #60 tabs 01/11/22 01/13/22 Rx omeprazole 40 mg capsule,delayed 40 mg PO DAILY #30 caps 01/11/22 01/13/22 Rx release midodrine 5 mg tablet 5 mg PO TID 01/13/22 01/13/22 History ranolazine 500 mg tablet,extended 500 mg PO QAM 01/13/22 01/13/22 History release,12 hr amiodarone 200 mg tablet mg PO QAM 01/25/22 History montelukast 10 mg tablet 10 mg PO HS 01/25/22 History Patient History Medical History Acute on chronic diastolic CHF (congestive heart failure) Anemia of chronic disease Arthritis CAD (coronary artery disease) 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) Diverticular disease Elevated troponin End-stage renal disease on hemodialysis ESRD (end stage renal disease) on dialysis History of COVID-19 (12/2020) Hyperkalemia Hyperlipidemia Hypertension Moderate pulmonary hypertension Nuclear sclerosis of both eyes Obstructive sleep apnea On home oxygen therapy Osteoarthritis, hip, bilateral Pleural effusion, bilateral Pneumonia Presence of arteriovenous fistula for hemodialysis Secondary pulmonary hypertension Status post placement of implantable loop recorder (07/07/21) Syncope Vitreous hemorrhage of right eye due to diabetes mellitus (12/04/18) Surgical History History of cardiac cath History of colonoscopy History of foot surgery History of heart artery stent History of placement of chest tube History of tooth extraction S/P arteriovenous (AV) fistula creation S/P bilateral cataract extraction (05/2021) S/P cardiac catheterization Family History Mother Diabetes Coronary heart disease Heart disease Hypertension Stroke Father Diabetes Coronary heart disease Heart disease Myocardial infarction Hypertension Stroke Other Kidney disease No family history of adverse response to anesthesia Denies family history of Ovarian cancer Prostate cancer Breast cancer Lung cancer Colorectal cancer Social History Smoking Status: Former smoker Second Hand Exposure: No; Hx Alcohol Use: No Hx Substance Use: No Preferred Language: Kazakh Communication Ability: Effective Visual Impairment: No Limitations Hearing Ability: Normal Desizing Machine Operator Required: No Beliefs That Will Affect Care: None marital status: Single Current Living Situation: Spouse Current Living Situation Comment: lives with significant other near [place] current occupational status: disabled How many Children do You have: 0 Other Information That Helps 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 Safe at Home: Yes Childhood Exposure to Second-Hand Smoke: Yes Diet Comment: regular caffeine: No during the past year weight has: remained stable Dental Care, Regularly: No Physical Activity Frequency: 1-2 Times per Week Physical Activity Frequency Comment: walk Seatbelt Use: always Sunscreen Use: No Assistive Devices: CPAP and Oxygen - Continuous Review of Systems Review of Systems: All systems reviewed & are unremarkable except as noted in HPI & below Physical Exam Constitutional: well developed and + ill appearing; no acute distress Eyes: no scleral abnormality and no corneal abnormality Neck: normal visual inspection and trachea midline Respiratory: normal respiratory effort Auscultation: lungs clear to auscultation bilaterally Cardiovascular: Rate/Rhythm: regular rate Heart Sounds: normal S1, normal S2 and + murmur Extremities: + AV fistula; no edema Musculoskeletal: Extremities: no cyanosis and no clubbing Skin: normal turgor; no lesions Neurologic: Motor/Sensory: no tremor and no asterixis Psychiatric: Orientation: alert and oriented x 3 Results & Data ([facility]) Vital Signs (Past 12 Hours) Vital Signs Pulse Pulse Resp BP BP Pulse Ox O2 Del Method 01/26/22 08:00 154/90 H 01/26/22 05:03 70 100 Nasal Cannula 01/26/22 04:30 139/79 01/26/22 04:30 70 21 100 01/26/22 04:00 70 20 97 01/26/22 04:00 133/85 01/26/22 03:30 141/82 H 01/26/22 03:30 71 15 99 01/26/22 03:00 126/76 01/26/22 03:00 82 14 98 01/26/22 02:30 125/68 01/26/22 02:30 72 15 96 01/26/22 02:00 75 21 98 01/26/22 02:00 120/64 01/26/22 01:30 108/55 L 01/26/22 01:30 71 17 99 01/26/22 01:00 127/76 01/26/22 01:00 70 100 01/26/22 02:48 70 12 125/68 97 Room Air O2 Flow Rate 01/26/22 08:00 01/26/22 05:03 4 01/26/22 04:30 01/26/22 04:30 01/26/22 04:00 01/26/22 04:00 01/26/22 03:30 01/26/22 03:30 01/26/22 03:00 01/26/22 03:00 01/26/22 02:30 01/26/22 02:30 01/26/22 02:00 01/26/22 02:00 01/26/22 01:30 01/26/22 01:30 01/26/22 01:00 01/26/22 01:00 01/26/22 02:48 Laboratory Results Laboratory Results - last 24 hr 01/25/22 01/25/22 01/25/22 16:25 16:36 16:36 WBC 9.57 RBC 3.48 L Hgb 10.6 L Hct 32.9 L MCV 94.5 MCH 30.5 MCHC 32.2 RDW Std Deviation 56.2 H RDW Coeff of Octavio 16.4 H Plt Count 249 MPV 10.4 Immature Gran % (Auto) 0.5 Neut % (Auto) 79.0 Lymph % (Auto) 11.1 [place] % (Auto) 8.4 Eos % (Auto) 0.3 Baso % (Auto) 0.7 Neut # (Auto) 7.56 H Lymph # (Auto) 1.06 L [place] # (Auto) 0.80 Eos # (Auto) 0.03 Baso # (Auto) 0.07 Immature Gran # (Auto) 0.05 H ESR PT 12.9 H INR 1.2 H APTT 35.9 H PTT Ratio 1.3 Sodium Potassium Chloride Carbon Dioxide Anion Gap BUN Creatinine Est Cr Clr Drug Dosing Est GFR ( Amer) Est GFR (Non-Af Amer) BUN/Creatinine Ratio Glucose POC Glucose Estimat Average Glucose Hemoglobin A1c Calcium Magnesium Total Bilirubin AST ALT Alkaline Phosphatase Troponin I High Sens C-Reactive Protein Total Protein Albumin Globulin Albumin/Globulin Ratio Procalcitonin SARS-CoV-2, RNA, NAAT NEGATIVE 01/25/22 01/25/22 01/25/22 16:36 16:36 16:36 WBC RBC Hgb Hct MCV MCH MCHC RDW Std Deviation RDW Coeff of Octavio Plt Count MPV Immature Gran % (Auto) Neut % (Auto) Lymph % (Auto) [place] % (Auto) Eos % (Auto) Baso % (Auto) Neut # (Auto) Lymph # (Auto) [place] # (Auto) Eos # (Auto) Baso # (Auto) Immature Gran # (Auto) ESR 66 H PT INR APTT PTT Ratio Sodium 135 L Potassium 3.9 Chloride 90 L Carbon Dioxide 33 H Anion Gap 12 H BUN 16 Creatinine 4.99 H* Est Cr Clr Drug Dosing Not Reportable Est GFR ( Amer) 14.2 Est GFR (Non-Af Amer) 12.3 BUN/Creatinine Ratio 3.2 L Glucose 206 H POC Glucose Estimat Average Glucose Hemoglobin A1c Calcium 9.3 Magnesium 1.9 Total Bilirubin 0.8 AST 11 L ALT < 3 L Alkaline Phosphatase 182 H Troponin I High Sens 129.3 H* C-Reactive Protein Total Protein 8.0 Albumin 4.1 Globulin 3.9 Albumin/Globulin Ratio 1.1 Procalcitonin 0.37 SARS-CoV-2, RNA, NAAT 01/25/22 01/25/22 01/25/22 16:36 22:17 22:56 WBC RBC Hgb Hct MCV MCH MCHC RDW Std Deviation RDW Coeff of Octavio Plt Count MPV Immature Gran % (Auto) Neut % (Auto) Lymph % (Auto) [place] % (Auto) Eos % (Auto) Baso % (Auto) Neut # (Auto) Lymph # (Auto) [place] # (Auto) Eos # (Auto) Baso # (Auto) Immature Gran # (Auto) ESR PT INR APTT PTT Ratio Sodium Potassium Chloride Carbon Dioxide Anion Gap BUN Creatinine Est Cr Clr Drug Dosing Est GFR ( Amer) Est GFR (Non-Af Amer) BUN/Creatinine Ratio Glucose POC Glucose 145 H Estimat Average Glucose Hemoglobin A1c Calcium Magnesium Total Bilirubin AST ALT Alkaline Phosphatase Troponin I High Sens 120.1 H* C-Reactive Protein 5.17 H Total Protein Albumin Globulin Albumin/Globulin Ratio Procalcitonin SARS-CoV-2, RNA, NAAT 01/26/22 01/26/22 01/26/22 04:06 04:06 04:06 WBC 9.44 RBC 3.16 L Hgb 9.6 L Hct 29.9 L MCV 94.6 MCH 30.4 MCHC 32.1 RDW Std Deviation 57.0 H RDW Coeff of Octavio 16.5 H Plt Count 219 MPV 10.1 Immature Gran % (Auto) 0.4 Neut % (Auto) 77.7 Lymph % (Auto) 11.4 [place] % (Auto) 8.9 Eos % (Auto) 0.6 Baso % (Auto) 1.0 Neut # (Auto) 7.33 H Lymph # (Auto) 1.08 L [place] # (Auto) 0.84 H Eos # (Auto) 0.06 Baso # (Auto) 0.09 Immature Gran # (Auto) 0.04 H ESR 47 H PT INR APTT PTT Ratio Sodium 138 Potassium 4.0 Chloride 93 L Carbon Dioxide 33 H Anion Gap 12 H BUN 21 Creatinine 6.01 H* D Est Cr Clr Drug Dosing 16.7 Est GFR ( Amer) 11.3 Est GFR (Non-Af Amer) 9.8 BUN/Creatinine Ratio 3.5 L Glucose 130 H POC Glucose Estimat Average Glucose Hemoglobin A1c Calcium 8.8 Magnesium Total Bilirubin 0.8 AST 9 L ALT 3 L Alkaline Phosphatase 155 H Troponin I High Sens C-Reactive Protein 4.09 H Total Protein 6.9 Albumin 3.6 Globulin 3.3 Albumin/Globulin Ratio 1.1 Procalcitonin SARS-CoV-2, RNA, NAAT 01/26/22 01/26/22 04:06 09:08 WBC RBC Hgb Hct MCV MCH MCHC RDW Std Deviation RDW Coeff of Octavio Plt Count MPV Immature Gran % (Auto) Neut % (Auto) Lymph % (Auto) [place] % (Auto) Eos % (Auto) Baso % (Auto) Neut # (Auto) Lymph # (Auto) [place] # (Auto) Eos # (Auto) Baso # (Auto) Immature Gran # (Auto) ESR PT INR APTT PTT Ratio Sodium Potassium Chloride Carbon Dioxide Anion Gap BUN Creatinine Est Cr Clr Drug Dosing Est GFR ( Amer) Est GFR (Non-Af Amer) BUN/Creatinine Ratio Glucose POC Glucose 121 H Estimat Average Glucose 171 Hemoglobin A1c 7.6 H Calcium Magnesium Total Bilirubin AST ALT Alkaline Phosphatase Troponin I High Sens C-Reactive Protein Total Protein Albumin Globulin Albumin/Globulin Ratio Procalcitonin SARS-CoV-2, RNA, NAAT PG Care Time/CCT Total # of Minutes Spent Total Time Spent with Patient: Total time spent is greater than 50% in coordination of care (as documented) at patient's floor/unit and/or counseling patient: Coding Level of Care Code 66903 Inpt Consult Level 4 Diagnoses End-stage renal disease on hemodialysis N18.6; Z99.2 Diabetic infection of right foot E11.628; L08.9 Anemia of chronic disease D63.8
--- NOTE | 2022-01-26 18:37 | Ultrasound Report ---
ULTRASOUND BILATERAL LOWER EXTREMITY ARTERIAL CLINICAL HISTORY: Gangrene. COMPARISON STUDY: No priors. TECHNIQUE: Real-time grayscale and color Doppler sonography of the arteries of the right and left low er extremity is performed from the inguinal crease to the foot. Ankle brachial indices were not perfo rmed due to overlying bandaging material. FINDINGS: Right lower extremity: Atherosclerotic plaque and irregularity seen throughout the arteries of the ri ght lower extremity. There are triphasic waveforms in the right common femoral artery with velocities measured up to 86 cm/s. The profunda femoris artery is patent with velocities measuring up to 49 cm/ s. There are triphasic waveforms in the right superficial femoral artery with velocities measuring up to 102 cm/s. There are biphasic to triphasic waveforms in the popliteal artery with velocities measu ring up to 88 cm/s. There is three-vessel runoff to the foot. Velocities in the calf arteries measure up to 101 cm/s. The dorsalis pedis artery is patent with velocities measuring up to 139 cm/s. Left lower extremity: There is atherosclerotic plaque and irregularity seen throughout the arteries o f the left lower extremity. There are triphasic waveforms in the common femoral artery with velocitie s measure up to 135 cm/s. The profunda femoris artery is patent with velocities measuring up to 96 cm /s. There are triphasic waveforms throughout the superficial femoral artery with velocities measuring up to 92 cm/s. There are biphasic waveforms in the popliteal artery with velocities measuring up to 95 cm/s. There is three-vessel runoff to the foot with biphasic waveforms in the anterior tibial and peroneal arteries. Velocities in the calf arteries measure up to 119 cm/s. Diminished flow is shown t hroughout the posterior tibial artery with monophasic flow. The dorsalis pedis artery is patent with velocities measuring up to 75 cm/s. IMPRESSION: 1. Findings of peripheral vascular disease with no sonographic evidence of high-grade stenosis or foc al vessel cut off through the arteries of the right or left lower extremity. See above. 2. Ankle brachial indices could not be assessed. Dictated: 01/26/2022 5:26 PM Transcribed: 01/26/2022 6:02 PM Tania [id number] [email or web address] Electronically signed by: Bin Dove M.D. 01/26/2022 6:36 PM
--- NOTE | 2022-01-26 19:02 | Electrocardiogram Report ---
Test Reason : Blood Pressure : / mmHG Vent. Rate : 070 BPM Atrial Rate : 069 BPM P-R Int : 000 ms QRS Dur : 170 ms QT Int : 504 ms P-R-T Axes : 000 145 -23 degrees QTc Int : 544 ms Ventricular-paced rhythm Biventricular pacemaker detected Abnormal ECG When compared with ECG of 07-APR-2021 09:00, Electronic ventricular pacemaker has replaced Sinus rhythm Confirmed by Robert Simpson ([id number] on 01/26/2022 7:01:42 PM Referred By: Francisco Ngo Confirmed By:Boubacar Simpson
--- NOTE | 2022-01-26 20:46 | Orthopedic Consultation ---
Date of Consultation January 26, 2022 Assessment & Plan (1) Diabetic infection of right foot: Patient seen, evaluated, and treated. Reviewed x-ray and x-ray findings. Discussed removal of non-viable bone and soft tissue from right foot. I reviewed procedure in detail as well as postoperative recovery. I discussed expectations and patient's current weightbearing status. All questions answered. I have discussed procedure in detail as well as postoperative recovery. All potential risks, benefits, complications, alternatives, rehab, potential for incomplete relief of symptoms, need for further surgery, DVT, PE, , persistent pain, swelling, scarring, weakness, neurovascular, wound complications and potential for amputations were discussed with patient. Unwanted outcomes such as, but not limited to were reviewed including under correction, overcorrection, return of deformity, infection. All questions were answered. Patient has decided to proceed with procedure as indicated. Patient scheduled for surgical care 01/27/22 add-on. ' (2) Acute osteomyelitis of right foot: History of Present Illness Attending Physician: Az Hicks MD History of Present Illness Patient is a 51-year-old male seen at bedside for worsening right foot wound and infection. Patient with past medical history of ESRD on Sunday dialysis, chronic hypoxemic respiratory failure secondary to restrictive lung disease and pulmonary hypertension on 4 L of oxygen at home, type 2 diabetes on 33 units daily of Toujeo, hypertension, atrial fibrillation, and pacemaker isidra cement 1 week earlier. Patient has been undergoing treatment of right foot in [place] and last month had an amputation of the second digit on the right foot due to infection. Patient was supposed to get PICC line with IV antibiotics after surgery but did not. He reports that shortly after the amputation he began having erythema of the foot and had noticed a few days ago that his fifth right digit had become black and there was extensive infection proximal to the right fifth digit. X- rays taken at [facility] show osteomyelitis. Due to recent pacemaker placement Patient is not a candidate for MRI. Allergies Allergy/AdvReac Type Severity Reaction Status Date / Time codeine Allergy Mild DELIRIUM,ME Verified 01/13/22 13:08 AN tramadol Allergy Mild nausea and Verified 01/13/22 13:08 vomiting Home Medications Medication Instructions Recorded Confirmed Type aspirin 81 mg chewable tablet 81 mg PO QAM 05/06/18 01/13/22 History clopidogrel 75 mg tablet (Plavix) 75 mg PO QAM 04/05/19 01/13/22 History albuterol sulfate 90 mcg/actuation 2 puffs inhalation Q6H PRN 07/02/19 01/13/22 Rx aerosol inhaler (Ventolin HFA) Shortness Of Breath Or Wheezing #18 grams atorvastatin 40 mg tablet 40 mg PO HS 09/04/19 01/13/22 History fluticasone furoate 100 1 ea inhalation DAILY #1 ea 01/30/20 01/13/22 Rx mcg-vilanterol 25 mcg/dose inhalation powder (Breo Ellipta) blood sugar diagnostic #50 ea 12/07/20 01/13/22 Rx miscellaneous medical supply 1 ea miscellaneous DAILY #1 ea 03/08/21 01/13/22 Rx pen needle, diabetic 31 gauge x #100 ea 03/11/21 01/13/22 Rx 3/16" (Easy Comfort Pen [place]) insulin glargine U-300 conc 300 33 unit (0.11 mL) subcut QAM #4.5 11/14/21 01/13/22 Rx unit/mL (1.5 mL) subcutaneous pen mL (Toujeo SoloStar U-300 Insulin) acetaminophen 500 mg capsule 1,000 mg PO TID PRN Pain #180 caps 11/21/21 01/13/22 Rx cholecalciferol (vitamin D3) 25 25 mcg PO DAILY #90 caps 11/21/21 01/13/22 Rx mcg (1,000 unit) capsule blood sugar diagnostic (OneTouch #50 ea 12/20/21 01/13/22 Rx Ultra Test strips) hydralazine 25 mg tablet 25 mg PO BID #60 tabs 01/03/22 01/13/22 Rx apixaban 5 mg tablet (Eliquis) 5 mg PO BID #60 tabs 01/11/22 01/13/22 Rx omeprazole 40 mg capsule,delayed 40 mg PO DAILY #30 caps 01/11/22 01/13/22 Rx release midodrine 5 mg tablet 5 mg PO TID 01/13/22 01/13/22 History ranolazine 500 mg tablet,extended 500 mg PO QAM 01/13/22 01/13/22 History release,12 hr amiodarone 200 mg tablet mg PO QAM 01/25/22 History montelukast 10 mg tablet 10 mg PO HS 01/25/22 History Patient History Medical History Acute on chronic diastolic CHF (congestive heart failure) Anemia of chronic disease Arthritis CAD (coronary artery disease) 08/2015- L Cx stent; 11/2017- RCA stent, L Cx stent patent; 07/2019- LM wnl, prox-mid LAD 30%, mid-L Cx stent patent, RCA stent stent with area between stents 30-40%. Sees [facility], Dr Sharad Norton. 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) Repaired s/p PPV, MP, EL (SNT) Diverticular disease Elevated troponin End-stage renal disease on hemodialysis ESRD (end stage renal disease) on dialysis dialysis sun-sun-sun is getting dialysis sat prior to colonoscopy 09/29/2019 and will have it again after on sunday09/30/2019 History of COVID-19 (12/2020) Hyperkalemia Hyperlipidemia Hypertension Moderate pulmonary hypertension Nuclear sclerosis of both eyes Obstructive sleep apnea cpap on 4L N/C On home oxygen therapy 4L N/C at all times Osteoarthritis, hip, bilateral Pleural effusion, bilateral 11/2018 Pneumonia Presence of arteriovenous fistula for hemodialysis left forearm Secondary pulmonary hypertension Status post placement of implantable loop recorder (07/07/21) Syncope Vitreous hemorrhage of right eye due to diabetes mellitus (12/04/18) Surgical History History of cardiac cath X 2 - 11/2017 - [facility] - SOB - 1 stent placed - follows w/ Dr. Zuniga - 2015 - [facility] - SOB - 1 stent placed History of colonoscopy History of foot surgery left x 4 History of heart artery stent X2 History of placement of chest tube left lung for pleural effusion 11/2018 History of tooth extraction all teeth S/P arteriovenous (AV) fistula creation 04/2016 Dr. Mena placed S/P bilateral cataract extraction (05/2021) S/P cardiac catheterization Dr. Sharad Calvillo at [facility]- 01/09/22 Family History Mother Diabetes Coronary heart disease Heart disease Hypertension Stroke Father Diabetes Coronary heart disease Heart disease Myocardial infarction Hypertension Stroke Other Kidney disease No family history of adverse response to anesthesia Denies family history of Ovarian cancer Prostate cancer Breast cancer Lung cancer Colorectal cancer Social History Smoking Status: Former smoker Second Hand Exposure: No; Hx Alcohol Use: No Hx Substance Use: No Preferred Language: Nigerien Communication Ability: Effective Visual Impairment: No Limitations Hearing Ability: Normal Vehicle Glass Technician Required: No Beliefs That Will Affect Care: None marital status: Single Current Living Situation: Significant Other Current Living Situation Comment: lives with significant other near [place] current occupational status: disabled How many Children do You have: 0 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 Feels Safe at Home: Yes Childhood Exposure to Second-Hand Smoke: Yes Diet Comment: regular caffeine: No during the past year weight has: remained stable Dental Care, Regularly: No Physical Activity Frequency: 1-2 Times per Week Physical Activity Frequency Comment: walk Seatbelt Use: always Sunscreen Use: No Assistive Devices: Oxygen - Continuous Review of Systems Review of Systems: All systems reviewed & are unremarkable except as noted in HPI & below Physical Exam Constitutional: WD/WN, vitals as above Eyes: PERRL, conjunctivae normal, anicteric sclerae ENMT: external ear and nose normal, oropharynx normal Respiratory: normal respiratory effort Cardiovascular: proximal distal cooling. Pedal pulses non palpable. Musculoskeletal: Absent second digit of right foot secondary to surgical care. Well healed. Skin: Right fifth digit lateral gangrene. There is a right foot ulceration on the plantar aspect spanning from the right fifth digit to the distal portion of the calcaneus on the lateral aspect. Eschar covering the entirety of the right fifth digit as well as scattered eschar throughout the ulcer itself. Neurologic: Absent epicritic sensation Psychiatric: Orientation: alert and oriented x 3 Results & Data ([facility]) Vital Signs (Past 12 Hours) Vital Signs Temp Pulse Resp BP Pulse Ox O2 Del Method O2 Flow Rate 01/26/22 20:05 Nasal Cannula 01/26/22 19:45 36.4 C 70 18 173/90 H 100 Nasal Cannula 4 01/26/22 17:00 70 22 140/74 100 Nasal Cannula 2 Diagnostic Findings ULTRASOUND BILATERAL LOWER EXTREMITY ARTERIAL CLINICAL HISTORY: Gangrene. COMPARISON STUDY: No priors. TECHNIQUE: Real-time grayscale and color Doppler sonography of the arteries of the right and left lower extremity is performed from the inguinal crease to the foot. Ankle brachial indices were not performed due to overlying bandaging material. FINDINGS: Right lower extremity: Atherosclerotic plaque and irregularity seen throughout the arteries of the right lower extremity. There are triphasic waveforms in the right common femoral artery with velocities measured up to 86 cm/s. The profunda femoris artery is patent with velocities measuring up to 49 cm/s. There are triphasic waveforms in the right superficial femoral artery with velocities measuring up to 102 cm/s. There are biphasic to triphasic waveforms in the popliteal artery with velocities measuring up to 88 cm/s. There is three-vessel runoff to the foot. Velocities in the calf arteries measure up to 101 cm/s. The dorsalis pedis artery is patent with velocities measuring up to 139 cm/s. Left lower extremity: There is atherosclerotic plaque and irregularity seen throughout the arteries of the left lower extremity. There are triphasic wave forms in the common femoral artery with velocities measure up to 135 cm/s. The profunda femoris artery is patent with velocities measuring up to 96 cm/s. There are triphasic waveforms throughout the superficial femoral artery with velocities measuring up to 92 cm/s. There are biphasic waveforms in the popliteal artery with velocities measuring up to 95 cm/s. There is three-vessel runoff to the foot with biphasic waveforms in the anterior tibial and peroneal arteries. Velocities in the calf arteries measure up to 119 cm/s. Diminished flow is shown throughout the posterior tibial artery with monophasic flow. The dorsalis pedis artery is patent with velocities measuring up to 75 cm/s. IMPRESSION: 1. Findings of peripheral vascular disease with no sonographic evidence of high- grade stenosis or focal vessel cut off through the arteries of the right or left lower extremity. See above. 2. Ankle brachial indices could not be assessed. X-ray Right foot. IMPRESSION: 1. Prior resection of the second toe. There is pronounced osteomyelitis involving the distal aspect of the second metatarsal with associated pathologic fracturing. 2. Possible additional cortical erosions of the third proximal phalanx and first DIP joint with third proximal phalangeal pathologic fracture. 3. Diffuse soft tissue swelling with arterial calcifications.
[2022-01-27] MEDS: PIPERACILLIN/TAZOBACTAM 4.5 GM in DEXTROSE 5% 100 ML IV SCH ×2 (03:47→16:29)
[2022-01-27 06:24] LABS: Basophils # (auto) 0.08 K/uL (0-0.2); Basophils % (auto) 0.9 %; Eosinophils # (auto) 0.11 K/uL (0-0.50); Eosinophils % (auto) 1.3 %; Hematocrit (blood only) 29.7 % (40.1-51.0); Hemoglobin 9.7 g/dl (14.0-18.0); Immature Granulocytes # (auto) 0.04 K/uL (0.00-0.02); Immature Granulocytes % (auto) 0.5 %; Lymphocytes # (auto) 1.09 K/uL (1.2-3.4); Lymphocytes % (auto) 12.5 %; Mean Corpuscular Hemoglobin 30.6 pg (25.0-34.0); Mean Corpuscular Hgb Conc 32.7 g/dL (32.0-36.0); Mean Corpuscular Volume 93.7 fL (80.0-100.0); Mean Platelet Volume 10.4 fL (9.4-12.4); Monocytes # (auto) 0.67 K/uL (0.24-0.82); Monocytes % (auto) 7.7 %; Neutrophils % (auto) 77.1 %; Platelet Count 203 K/uL (130-400); RDW Coefficient of Variation 16.4 % (11.5-14.5); RDW Standard Deviation 56.2 fL (36.4-46.3); Red Blood Count 3.17 M/uL (4.63-6.08); White Blood Count 8.69 K/ul (4.8-10.8)
[2022-01-27 06:50] LABS: Alanine Aminotransferase < 3 U/L (7-52); Albumin Globulin Ratio 1.2 (0.9-2); Albumin Level 3.6 gm/dl (3.4-5.0); Alkaline Phosphatase 145 U/L (34-104); Anion Gap 12 (3-11); Aspartate Aminotransferase 9 U/L (13-39); BUN Creatinine Ratio 4.2 (10-20); Bilirubin,Total 0.8 mg/dl (0.2-1.0); Blood Urea Nitrogen 34 mg/dl (6-23); Calcium 8.4 mg/dl (8.5-10.1); Carbon Dioxide 31 mmol/L (21-32); Chloride 90 mmol/L (98-107); Creatinine Clr Calc Pharmacy 12.3 ml/min; Est GFR (Non-African American) 6.9 ml/min; Globulin 3.1 gm/dl (2.5-4.0); Glucose 105 mg/dl (70-99(Fasting)); Potassium 4.1 mmol/L (3.5-5.1); Sodium 133 mmol/L (136-145); Total Protein 6.7 gm/dl (6.0-8.3)
[2022-01-27] MEDS ORDERED: EPOETIN ALFA 20,000 UNITS/ML VIAL IV ONE (07:00)
--- NOTE | 2022-01-27 08:14 | Hospitalist Progress Note ---
Date of Service January 27, 2022 Assessment & Plan (1) Acute osteomyelitis of right foot: Plan: Patient is a 51-year-old male with past medical history of ESRD on Sunday dialysis, chronic hypoxemic respiratory failure secondary to restrictive lung disease and pulmonary hypertension on 4 L of oxygen at home, type 2 diabetes on 33 units daily of Toujeo, hypertension, atrial fibrillation, and pacemaker placement (see insertion 1 week ago) coming into the hospital for evaluation of a right foot infection. Patient has been started on daptomycin and Zosyn and is currently hemodynamically stable. -MRI of right foot can not be completed due to recent pacemaker placement -ESR and CRP suggestive of active osteomyelitis infection; trending down (ESR 67-> 47) (CRP 5.17-> 4.09) -Started on daptomycin daily and Zosyn every 12 hours on dialysis days, immediately after dialysis -Consulted podiatry; plan for surgery this afternoon - Vascular surgery unable to offer surgical management as duplex US LE showed Findings of peripheral vascular disease with no sonographic evidence of high- grade stenosis or focal vessel cut off through the arteries of the right or left lower extremity. -Blood cultures negative after 24 hours; wound cultures growing pseudomonas -Holding Eliquis/ statin for surgery (2) Ulcer of extremity due to chronic venous insufficiency: Plan: See plan above (3) Elevated troponin: Plan: Elevated troponin on admission= 129, repeat 120 - Denies chest pain, ECG without ischemic changes -> likely secondary to ESRD - continue to monitor tele (4) End-stage renal disease on hemodialysis: Plan: -Sunday hemodialysis with last dialysis completed yesterday (01/25) -Consult nephrology, appreciate recommendations -Avoid nephrotoxic agents (5) PAF (paroxysmal atrial fibrillation): Plan: -Continue telemetry -Typically on Eliquis -Hold anticoagulation due to concern for possible procedure (6) Moderate pulmonary hypertension: Plan: - Stable, continue CPAP at night (7) GERD (gastroesophageal reflux disease): Plan: - Continue omeprazole (8) Restrictive lung disease secondary to obesity: Plan: - Continue CPAP at night as above -Continue Breo Ellipta, albuterol as needed, montelukast (9) Chronic diastolic heart failure: Plan: - Not currently on beta-alesia -Most recent echo on 01/08/2022 at [facility] consistent of left ventricular size moderately dilated, left ventricular hypertrophy, diffuse hypokinesis, left ventricular function mild to moderately decreased, ejection fraction of 35 to 40% -Consideration to start beta-alesia, spironolactone, SGLT2 as an OP (10) Obstructive sleep apnea: Plan: - CPAP as above (11) Hyperlipidemia: Plan: - Hold statin due to possible reaction with Zosyn (12) CAD (coronary artery disease): Plan: - Continue aspirin, Plavix, ranolazine (13) Diabetes mellitus type 2, uncontrolled: Plan: - Last A1c on 12/29 was 7.1; 7.6 on admission -Typically takes 33 units of Toujeo daily -Basal bolus with sliding scale and carb consistent diet while in hospital -Pharmacy glycemic consult placed, appreciate recommendations (14) Hypertension: Plan: -Continue hydralazine twice daily (15) Orthostatic hypotension: Plan: - Typically receives midodrine 3 times daily but will hold for now if he becomes hypotensive, consider restarting Disposition: Admit to PCU Diet: Carb consistent, dialysis diet DVT prophylaxis: Deirdre Fitzgerald on hold CODE STATUS: Full code Admission and Anticipated Discharge Date Admission Date: January 25, 2022 Supervising Physician Co-Signing Physician Notes I also saw the patient with Dr. Watkins and confirmed mata portions of the history and physical examination. Agree with impression plan as noted the resident documentation and as summarized below. I also personally discussed the case with the nephrology datastage consultant. We saw the patient in the late afternoon, he had completed hemodialysis and was waiting call from the OR for debridement. He had no complaints at the time of our visit except that he was hungry. Exam 154/77, 70, 18, 36.4, 100% on nasal cannula at 4 L/min Heart is regular. Lungs are clear with nonlabored respirations Abdomen soft nontender. Bowel sounds are appreciated. Right foot is bandaged/not examined today. Data Hemoglobin 9.7, white blood cell count 8.69 Sodium 133, BUN 34, creatinine 8.05 Imaging Arterial Dopplers of the lower extremities consistent with peripheral vascular disease but no evidence of high-grade stenosis or focal vessel cutoff through the arteries of the right or left lower extremity. Impression and plan Acute osteomyelitis of the 3rd toe, right foot Debridement by podiatry this afternoon Vascular studies reassuring Continue antibiotics pending cultures End-stage renal disease on hemodialysis Antibiotics renally dosed Appreciate nephrology consultation Hemodialysis scheduled Paroxysmal atrial fibrillation Noted to be in sinus upon today's exam Deirdre is on hold Else see resident documentation as noted. Subjective 51 year old male with a past medical history of ESRD on HD MWF, chronic hypoxemic respiratory failure secondary to restrictive lung disease and pulmonary hypertension on 4 L of oxygen at home, type 2 diabetes on 33 units daily of Toujeo, hypertension, atrial fibrillation, and pacemaker placed 1 week ago. Presenting with right foot infection. ED course significant for ESR= 66, creatine= 4.99 (BL), alk phos= 182, trop= 129m CRP= 5.17. X ray right foot consistent with cortical erosions of the third proximal phalanx as well as noted arterial calcifications. Started on Daptomycin + Zosyn to cover for osteomyelitis/dry gangrene. States that he is doing well this morning. Frustrated that he is NPO for surgery. Denies pain in his foot. States that he feels his foot is less swollen. Denies chest pain, dyspnea, cough. Review of Systems Review of Systems: As per HPI Physical Exam Physical Exam: Constitutional: well-appearing, no acute distress HEENT: NCAT, no conjunctival injection CV: regular rhythm, no murmur appreciated, extremities well-perfused, no LE edema Resp: CTABL, no wheezes/rales/rhonchi appreciated, no increased work of jacqui athing GI: soft, nondistended, nontender, BS normoactive MSK: no gross deformities appreciated Skin: warm, dry, no rash appreciated Neuro: alert, oriented, no focal neurologic deficit appreciated Constitutional: WD/WN, vitals as above + obese, cooperative and comfortable; no acute distress Neck: trachea midline, no thyromegaly Respiratory: normal respiratory effort, lungs clear to auscultation Cardiovascular: Rate/Rhythm: regular rate and regular rhythm Vessels: radial pulses present; no JVD and + dorsalis pedis pulses abnormal Extremities: + edema (+1 pitting edema of the right lower extremity to the mid tran) Chest (Breasts): Chest: + pacemaker (R side with overlying healing incision w/ steri strips) Gastrointestinal (Abdomen): normal bowel sounds, soft, nontender, no hepatosplenomegaly Musculoskeletal: Head/Neck/Chest: normocephalic and head atraumatic Neurologic: moves all extremities Psychiatric: A+Ox3, euthymic affect Results & Data Results & Data ([facility]) Vital Signs (Past 12 Hours) Vital Signs Temp Pulse Resp BP Pulse Ox Pulse Ox O2 Del Method 01/27/22 04:31 36.5 C 70 18 113/73 98 Nasal Cannula 01/26/22 22:00 96 01/26/22 23:50 36.4 C L 70 18 115/74 100 Nasal Cannula O2 Del Method O2 Flow Rate O2 Flow Rate 01/27/22 04:31 4.0 01/26/22 22:00 Nasal Cannula 4 01/26/22 23:50 4.0 Resident Activity Tracking Resident Involvement: Resident Care Provided Care Provided: Adult Hospital Medicine (1) CAD (coronary artery disease) Associated angina: without angina Coronary Disease-Associated Artery/Lesion type: [place] artery [place] vs. transplanted heart: [place] heart Qualified Code(s): I25.10 - Atherosclerotic heart disease of [place] coronary artery without angina pectoris (2) Diabetes mellitus type 2, uncontrolled Glycemic state: with hyperglycemia Qualified Code(s): E11.65 - Type 2 diabetes mellitus with hyperglycemia
[2022-01-27] MEDS: INSULIN ASPART PER UNIT SC SCH ×3 (08:50→22:49)
[2022-01-27] MEDS: FLUTICASONE/VILANTEROL 100/25MCG 14 PUFFS/INHALER INH SCH (08:50)
[2022-01-27] MEDS: RANOLAZINE 500 MG ER TAB PO SCH ×2 (08:51→21:09)
[2022-01-27] MEDS: hydrALAZINE HCL 25 MG TAB PO SCH ×2 (08:51→21:09)
[2022-01-27] MEDS: MONTELUKAST SODIUM 10 MG TABLET PO SCH (08:52)
[2022-01-27] MEDS: CLOPIDOGREL BISULFATE 75 MG TAB PO SCH (08:52)
[2022-01-27] MEDS: CHOLECALCIFEROL 1,000 UNITS 25 MCG TAB PO SCH (08:52)
[2022-01-27] MEDS: ASPIRIN 81 MG ECTAB PO SCH (08:52)
[2022-01-27] MEDS: PANTOprazole 40 MG TAB PO SCH (08:53)
[2022-01-27] MEDS: LANTUS PER UNIT CHARGE SQ SCH (08:53)
--- NOTE | 2022-01-27 12:31 | Communication Note ---
Date of Service: January 27, 2022 Patient has acceptable waveforms and no areas of occlusion or stenosis seen on his duplex of his lower extremity. No intervention is needed at this time. Would debride the foot. If healing becomes an issue we can re-evaluate him at that time.
--- NOTE | 2022-01-27 12:56 | Nephrology Progress Note ---
Date of Service January 27, 2022 Assessment & Plan (1) End-stage renal disease on hemodialysis: Plan: Orders for HD today oer MWF schedule entered into the EHR and reviewed with HD nurse. Tolerating treatment well. Outpatient Rx MWF 4 hours and 15 min, Qb 400 via AVF, 2 K bath. EDW 105.5 kg. UF goal today 2.5 L, as tolerated. AVF functioning well. Records from [facility] reviewed. Medications appropriate for kidney function. Renal diet. Repeat metabolic profile in the AM. (2) Diabetic infection of right foot: Plan: Renal dosing dapto and Zosyn. Noted plan to go to the OR today for debridement and possible amputation. Vascular studies reassuring. (3) Anemia of chronic disease: Plan: Epogen 10447 units with HD today. Admission and Anticipated Discharge Date Admission Date: January 25, 2022 Lanie Davis was seen and evaluated during HD today. Tolerating treatment well. BP acceptable. Qb at goal. No fevers or chills. Denies pain. Review of Systems Review of Systems: All systems reviewed & are unremarkable except as noted in HPI & below Physical Exam Constitutional: well developed and + ill appearing; no acute distress Eyes: no scleral abnormality and no corneal abnormality Neck: normal visual inspection and trachea midline Respiratory: normal respiratory effort Auscultation: lungs clear to aus cultation bilaterally Cardiovascular: Rate/Rhythm: regular rate Heart Sounds: normal S1, normal S2 and + murmur Extremities: + AV fistula; no edema Musculoskeletal: Extremities: no cyanosis and no clubbing Skin: normal turgor; no lesions Neurologic: Motor/Sensory: no tremor and no asterixis Psychiatric: Orientation: alert and oriented x 3 Results & Data ([facility]) Vital Signs (Past 12 Hours) Vital Signs Temp Pulse Pulse Pulse Pulse Resp BP 01/27/22 12:30 70 129/77 01/27/22 12:00 70 141/78 H 01/27/22 11:30 70 138/74 01/27/22 09:00 01/27/22 11:52 70 01/27/22 11:00 70 129/73 01/27/22 10:30 69 122/66 01/27/22 10:15 70 131/76 01/27/22 10:04 37.0 C 71 01/27/22 08:36 37.0 C 71 17 01/27/22 04:31 36.5 C 70 18 BP Pulse Ox O2 Del Method O2 Flow Rate 01/27/22 12:30 01/27/22 12:00 01/27/22 11:30 01/27/22 09:00 Room Air 01/27/22 11:52 01/27/22 11:00 01/27/22 10:30 01/27/22 10:15 01/27/22 10:04 01/27/22 08:36 145/85 H 96 Nasal Cannula 4.0 01/27/22 04:31 113/73 98 Nasal Cannula 4.0 Laboratory Results Laboratory Results - last 24 hr 01/26/22 01/26/22 01/26/22 13:34 18:16 20:34 WBC RBC Hgb Hct MCV MCH MCHC RDW Std Deviation RDW Coeff of Octavio Plt Count MPV Immature Gran % (Auto) Neut % (Auto) Lymph % (Auto) [place] % (Auto) Eos % (Auto) Baso % (Auto) Neut # (Auto) Lymph # (Auto) [place] # (Auto) Eos # (Auto) Baso # (Auto) Immature Gran # (Auto) Sodium Potassium Chloride Carbon Dioxide Anion Gap BUN Creatinine Est Cr Clr Drug Dosing Est GFR ( Amer) Est GFR (Non-Af Amer) BUN/Creatinine Ratio Glucose POC Glucose 132 H 96 170 H Calcium Total Bilirubin AST ALT Alkaline Phosphatase Total Protein Albumin Globulin Albumin/Globulin Ratio 01/27/22 01/27/22 01/27/22 05:47 05:47 08:04 WBC 8.69 RBC 3.17 L Hgb 9.7 L Hct 29.7 L MCV 93.7 MCH 30.6 MCHC 32.7 RDW Std Deviation 56.2 H RDW Coeff of Octavio 16.4 H Plt Count 203 MPV 10.4 Immature Gran % (Auto) 0.5 Neut % (Auto) 77.1 Lymph % (Auto) 12.5 [place] % (Auto) 7.7 Eos % (Auto) 1.3 Baso % (Auto) 0.9 Neut # (Auto) 6.70 H Lymph # (Auto) 1.09 L [place] # (Auto) 0.67 Eos # (Auto) 0.11 Baso # (Auto) 0.08 Immature Gran # (Auto) 0.04 H Sodium 133 L Potassium 4.1 Chloride 90 L Carbon Dioxide 31 Anion Gap 12 H BUN 34 H Creatinine 8.05 H* D Est Cr Clr Drug Dosing 12.3 Est GFR ( Amer) 8.0 Est GFR (Non-Af Amer) 6.9 BUN/Creatinine Ratio 4.2 L Glucose 105 H POC Glucose 106 H Calcium 8.4 L Total Bilirubin 0.8 AST 9 L ALT < 3 L Alkaline Phosphatase 145 H Total Protein 6.7 Albumin 3.6 Globulin 3.1 Albumin/Globulin Ratio 1.2 PG Care Time/CCT Total # of Minutes Spent Total Time Spent with Patient: Total time spent is greater than 50% in coordination of care (as documented) at patient's floor/unit and/or counseling patient: Coding Level of Care Code 95806 Subseq Hosp Care Lvl 3 Diagnoses End-stage renal disease on hemodialysis N18.6; Z99.2 Diabetic infection of right foot E11.628; L08.9 Anemia of chronic disease D63.8
--- NOTE | 2022-01-27 16:18 | Anesthesiology Consultation ---
Date of Service January 27, 2022 Assessment & Plan (1) Encounter for pre-operative examination: Chart Review Chart Review: Acceptable Risk for Surgery and Patient NOT seen in Pre Admission Testing Consults Requested none History Surgery Operation Date: 01/27/22 07:00 Proposed Procedures p 2nd Metatarsal Resection - Edilson Rust, DPM, MS Height/Weight Height: 5 ft 7 in Weight: 105.2 kg Allergies Allergy/AdvReac Type Severity Reaction Status Date / Time codeine Allergy Mild DELIRIUM,ME Verified 01/13/22 13:08 AN tramadol Allergy Mild nausea and Verified 01/13/22 13:08 vomiting Medications Home Medications Medication Instructions Recorded Confirmed Last Taken aspirin 81 mg chewable tablet 81 mg PO QAM 05/06/18 01/13/22 08/24/20 03:45 clopidogrel 75 mg tablet (Plavix) 75 mg PO QAM 04/05/19 01/13/22 08/24/20 03:45 albuterol sulfate 90 mcg/actuation 2 puffs inhalation Q6H PRN 07/02/19 01/13/22 01/31/20 aerosol inhaler (Ventolin HFA) Shortness Of Breath Or Wheezing #18 grams atorvastatin 40 mg tablet 40 mg PO HS 09/04/19 01/13/22 08/23/20 18:30 fluticasone furoate 100 1 ea inhalation DAILY #1 ea 01/30/20 01/13/22 08/24/20 03:45 mcg-vilanterol 25 mcg/dose inhalation powder (Breo Ellipta) blood sugar diagnostic #50 ea 12/07/20 01/13/22 Unknown miscellaneous medical supply 1 ea miscellaneous DAILY #1 ea 03/08/21 01/13/22 Unknown pen needle, diabetic 31 gauge x #100 ea 03/11/21 01/13/22 Unknown 3/16" (Easy Comfort Pen [place]) insulin glargine U-300 conc 300 33 unit (0.11 mL) subcut QAM #4.5 11/14/21 01/13/22 Unknown unit/mL (1.5 mL) subcutaneous pen mL (Toujeo SoloStar U-300 Insulin) acetaminophen 500 mg capsule 1,000 mg PO TID PRN Pain #180 caps 11/21/21 01/13/22 Unknown cholecalciferol (vitamin D3) 25 25 mcg PO DAILY #90 caps 11/21/21 01/13/22 Unkno wn mcg (1,000 unit) capsule blood sugar diagnostic (OneTouch #50 ea 12/20/21 01/13/22 Unknown Ultra Test strips) hydralazine 25 mg tablet 25 mg PO BID #60 tabs 01/03/22 01/13/22 Unknown apixaban 5 mg tablet (Eliquis) 5 mg PO BID #60 tabs 01/11/22 01/13/22 Unknown omeprazole 40 mg capsule,delayed 40 mg PO DAILY #30 caps 01/11/22 01/13/22 Unknown release midodrine 5 mg tablet 5 mg PO TID 01/13/22 01/13/22 Unknown ranolazine 500 mg tablet,extended 500 mg PO QAM 01/13/22 01/13/22 Unknown release,12 hr amiodarone 200 mg tablet mg PO QAM 01/25/22 Unknown montelukast 10 mg tablet 10 mg PO HS 01/25/22 Unknown Active Medications Generic Name Dose Route Start Last Admin Trade Name Berenice PRN Reason Stop Dose Admin Aspirin 81 mg 01/26/22 09:00 01/27/22 08:52 Aspirin 81 Mg Ectab PO 02/25/22 08:59 81 mg QAM VICKY Administration Clopidogrel Bisulfate 75 mg 01/26/22 09:00 01/27/22 08:52 Clopidogrel Bisulfate 75 Mg Tab PO 02/25/22 08:59 75 mg QAM VICKY Administration Fluticasone/Vilanterol 1 puffs 01/26/22 09:00 01/27/22 08:50 Fluticasone/Vilanterol 100/25mcg 14 Puffs/Inhaler INH 02/25/22 08:59 1 puffs DAILY VICKY Administration Hydralazine HCl 25 mg 01/26/22 09:00 01/27/22 08:51 Hydralazine Hcl 25 Mg Tab PO 02/25/22 08:59 25 mg BID VICKY Administration Piperacillin Sod/Tazobactam 120 mls @ 30 mls/hr 01/26/22 04:00 01/27/22 16:29 Sod 4.5 gm/ Dextrose IV 03/09/22 03:59 30 mls/hr Q12H VICKY Administration Protocol Insulin Aspart 0 units 01/25/22 21:00 01/27/22 16:16 Insulin Aspart Per Unit SC 02/24/22 20:59 Not Given ACHS VICKY Insulin Glargine 15 units 01/26/22 09:00 01/27/22 08:53 Lantus Per Unit Charge SQ 02/25/22 08:59 Not Given DAILY VICKY Protocol Montelukast Sodium 10 mg 01/26/22 09:00 01/27/22 08:52 Montelukast Sodium 10 Mg Tablet PO 02/25/22 08:59 10 mg QAM VICKY Administration Pantoprazole Sodium 40 mg 01/26/22 09:00 01/27/22 08:53 Pantoprazole 40 Mg Tab PO 02/25/22 08:59 40 mg DAILY VICKY Administration Ranolazine 500 mg 01/25/22 21:00 01/27/22 08:51 Ranolazine 500 Mg Er Tab PO 02/24/22 20:59 500 mg Q12H VICKY Administration Vitamin D 1,000 units 01/26/22 09:00 01/27/22 08:52 Cholecalciferol 1,000 Units 25 Mcg Tab PO 02/25/22 08:59 1,000 units DAILY VICKY Administration Past Medical History Medical History Acute on chronic diastolic CHF (congestive heart failure) Anemia of chronic disease Arthritis CAD (coronary artery disease) 08/2015- L Cx stent; 11/2017- RCA stent, L Cx stent patent; 07/2019- LM wnl, prox-mid LAD 30%, mid-L Cx stent patent, RCA stent stent with area between stents 30-40%. Sees [facility], Dr Sharad Norton. 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) Repaired s/p PPV, MP, EL (SNT) Diverticular disease Elevated troponin End-stage renal disease on hemodialysis ESRD (end stage renal disease) on dialysis dialysis sun-sun-sun is getting dialysis sat prior to colonoscopy 09/29/2019 and will have it again after on sunday09/30/2019 History of COVID-19 (12/2020) Hyperkalemia Hyperlipidemia Hypertension Moderate pulmonary hypertension Nuclear sclerosis of both eyes Obstructive sleep apnea cpap on 4L N/C On home oxygen therapy 4L N/C at all times Osteoarthritis, hip, bilateral Pleural effusion, bilateral 11/2018 Pneumonia Presence of arteriovenous fistula for hemodialysis left forearm Secondary pulmonary hypertension Status post placement of implantable loop recorder (07/07/21) Syncope Vitreous hemorrhage of right eye due to diabetes mellitus (12/04/18) Past Family History Family History Mother Diabetes Coronary heart disease Heart disease Hypertension Stroke Father Diabetes Coronary heart disease Heart disease Myocardial infarction Hypertension Stroke Other Kidney disease No family history of adverse response to anesthesia Denies family history of Ovarian cancer Prostate cancer Breast cancer Lung cancer Colorectal cancer Past Surgical History Surgical History History of cardiac cath X 2 - 11/2017 - [facility] - SOB - 1 stent placed - follows w/ Dr. Zuniga - 2015 - [facility] - SOB - 1 stent placed History of colonoscopy History of foot surgery left x 4 History of heart artery stent X2 History of placement of chest tube left lung for pleural effusion 11/2018 History of tooth extraction all teeth S/P arteriovenous (AV) fistula creation 04/2016 Dr. Mena placed S/P bilateral cataract extraction (05/2021) S/P cardiac catheterization Dr. Sharad Calvillo at [facility]- 01/09/22 Social History Smoking Status: Former smoker tobacco type: cigars Do You Dip or Chew Tobacco: No Hx Alcohol Use: No Hx Substance Use: No substance use type: does not use Physical Exam Vital Signs Last Vital Signs Temp 36.9 C 01/27/22 14:40 Pulse 70 01/27/22 14:40 Resp 17 01/27/22 08:36 BP 145/81 H 01/27/22 14:40 Pulse Ox 96 01/27/22 08:36 O2 Del Method 01/27/22 09:00 O2 Flow Rate 4.0 01/27/22 08:36 Testing Laboratory Results 01/27/22 05:47 01/27/22 05:47 PT 12.9 Seconds (9.0-12.0) H 01/25/22 16:36 INR 1.2 (0.9-1.1) H 01/25/22 16:36 APTT 35.9 Seconds (21.0-31.0) H 01/25/22 16:36 Hemoglobin A1c 7.6 % (4.5-5.6) H 01/26/22 04:06 01/25/22 19:21 Gram Stain - Final Foot,Right Wound Culture - Final Pseudomonas aeruginosa 01/25/22 18:25 Aerobic Blood Culture - Preliminary Blood No growth in Aerobic bottle after 24 hours. Anaerobic Blood Culture - Preliminary No growth in Anaerobic bottle after 24 hours. 01/25/22 16:36 Aerobic Blood Culture - Preliminary Blood No growth in Aerobic bottle after 24 hours. Anaerobic Blood Culture - Preliminary No growth in Anaerobic bottle after 24 hours. 01/27/22 08:04 POC Glucose 106 H Electrocardiogram Date: 01/25/22 DICTATED BY:Robert Simpson MD Test Reason : Blood Pressure : / mmHG Vent. Rate : 070 BPM Atrial Rate : 069 BPM P-R Int : 000 ms QRS Dur : 170 ms QT Int : 504 ms P-R-T Axes : 000 145 -23 degrees QTc Int : 544 ms Ventricular-paced rhythm Biventricular pacemaker detected Abnormal ECG When compared with ECG of 07-APR-2021 09:00, Electronic ventricular pacemaker has replaced Sinus rhythm Confirmed by Robert Simpson ([id number]) on 01/26/2022 7:01:42 PM Chest X-Ray Date: 01/25/22 XR chest 1V portable HISTORY: 51 years-old Male Sepsis acute sepsis COMPARISON: Chest radiograph and CTA chest at least 04/07/2021 TECHNIQUE: AP view of the chest FINDINGS: Cardiac silhouette is enlarged. Right pectoral pacer. No pneumothorax, pleural effusion, airspace consolidation or overt pulmonary edema. Mild pulmonary vascular congestion. Degenerative changes of the shoulders and spine. IMPRESSION: Cardiomegaly with pulmonary vascular congestion. Echocardiogram Date: 01/18/22 LV is normal in size. Segmental LV function is normal. Overall left ventricular function is mild to moderately decreased. EF is 35-40% RV size is normal. RV function is mildly decreased. LA size is mildly enlarged.
[2022-01-27] MEDS ORDERED: BUPIVACAINE 0.5 % 5 MG/1 ML MPF 30ML VIAL ONE (16:30)
[2022-01-27] MEDS ORDERED: ATROPINE SULFATE 0.1 MG/ML 10ML SYR IV PRN (16:49)
[2022-01-27] MEDS ORDERED: ePHEDrine sulfate 50 MG/ML AMP IV PRN (16:49)
[2022-01-27] MEDS ORDERED: fentaNYL citrate 100 MCG/2 ML VIAL IV PRN (16:49)
[2022-01-27] MEDS ORDERED: ONDANSETRON INJ 2 MG/ML 2 ML VIAL IV PRN (16:49)
[2022-01-27] MEDS ORDERED: ePHEDrine sulfate 50 MG/ML AMP ONE (17:05)
[2022-01-27] MEDS ORDERED: PROPOFOL IV EMULSION 10 MG/ML 20 ML VIAL IV ONE ×2 (17:05→18:05)
[2022-01-27] MEDS ORDERED: PHENYLEPHRINE HCL 10 MG/ML VIAL ONE (17:05)
[2022-01-27] MEDS ORDERED: LIDOCAINE 2% 20 MG/ML 5 ML SYR IV ONE (17:05)
[2022-01-27] MEDS ORDERED: KETAMINE 50 MG/5 ML SYRINGE ONE (17:06)
[2022-01-27] MEDS ORDERED: MIDAZOLAM HCL 1 MG/ML 2ML VIAL ONE (17:06)
[2022-01-27] MEDS ORDERED: fentaNYL citrate 100 MCG/2 ML VIAL ONE (17:06)
[2022-01-27] MEDS ORDERED: ONDANSETRON INJ 2 MG/ML 2 ML VIAL ONE (17:10)
[2022-01-27] MEDS ORDERED: LIDOCAINE 2% 2 ML VIAL/AMP(20MG/ML) INFIL ONE (17:10)
--- NOTE | 2022-01-27 17:23 | History & Physical Bridge Note ---
Date of Service January 27, 2022 History & Physical Bridge Note I have examined the patient, reviewed the History & Physical and in the interval since the performance of the History & Physical I have noted the following changes of clinical significance: no changes noted
[2022-01-27] MEDS ORDERED: VASOPRESSIN 20 UNIT/ML VIAL ONE (17:58)
--- NOTE | 2022-01-27 18:49 | Post Operative Brief Note ---
Immediate Post Op Note v1 Date of Surgery January 27, 2022 Pre & Post Diagnosis Operation Date: 01/27/22 07:00 Pre-Op Diagnosis: FOOT ULCER, GANGRENE Post-Op Diagnosis: FOOT ULCER, GANGRENE I identified the patient and participated in the time-out.: Yes Procedure Operation Date: 01/27/22 07:00 Actual Procedures p 2nd Metatarsal Resection(Right) - Edilson Rust DPM, MS Surgeon Edilson Rust DPM, MS Manager Media Relations None Estimated Blood Loss 20 Findings Consistent with Post-Op Diagnosis Necrotic bone and soft tissue
--- NOTE | 2022-01-27 19:45 | Anesthesiology Progress Note ---
Date of Service January 27, 2022 Anesthesia Post Procedure Vital Signs Vital Signs: Temp Pulse Pulse Pulse Pulse Resp BP 01/27/22 09:05 36.8 C 70 18 01/27/22 18:55 70 16 01/27/22 18:47 36.4 C L 70 27 H 01/27/22 16:55 01/27/22 16:30 36.4 C L 70 18 01/27/22 14:40 36.9 C 70 01/27/22 14:00 70 140/78 01/27/22 13:30 70 124/69 01/27/22 13:00 70 124/75 01/27/22 12:30 70 129/77 01/27/22 12:00 70 141/78 H 01/27/22 11:30 70 138/74 01/27/22 09:00 01/27/22 11:52 70 01/27/22 11:00 70 129/73 01/27/22 10:30 69 122/66 01/27/22 10:15 70 131/76 01/27/22 10:04 37.0 C 71 01/27/22 08:36 37.0 C 71 17 01/27/22 04:31 36.5 C 70 18 01/26/22 22:00 01/26/22 23:50 36.4 C L 70 18 01/26/22 20:05 BP Pulse Ox Pulse Ox O2 Del Method O2 Del Method O2 Flow Rate O2 Flow Rate 01/27/22 09:05 121/69 97 Nasal Cannula 4 01/27/22 18:55 116/65 94 Nasal Cannula 4 01/27/22 18:47 125/80 95 Oxymask 10 01/27/22 16:55 Nasal Cannula 4 01/27/22 16:30 154/77 H 100 Nasal Cannula 4 01/27/22 14:40 145/81 H 01/27/22 14:00 01/27/22 13:30 01/27/22 13:00 01/27/22 12:30 01/27/22 12:00 01/27/22 11:30 01/27/22 09:00 Room Air 01/27/22 11:52 01/27/22 11:00 01/27/22 10:30 01/27/22 10:15 01/27/22 10:04 01/27/22 08:36 145/85 H 96 Nasal Cannula 4.0 01/27/22 04:31 113/73 98 Nasal Cannula 4.0 01/26/22 22:00 96 Nasal Cannula 4 01/26/22 23:50 115/74 100 Nasal Cannula 4.0 01/26/22 20:05 Nasal Cannula Transfer of Care Handoff Completed per policy Notes Mental Status: alert / awake / arousable and participated in evaluation Patient Amnestic to Procedure: Yes Nausea / Vomiting: adequately controlled Pain: adequately controlled Airway Patency, RR, SpO2: stable & adequate BP & HR: stable & adequate Hydration State: stable & adequate Anesthetic Complications: no major complications apparent and Pt Satisfied with anesthetic care
[2022-01-27] MEDS ORDERED: DAPTOmycin 500 MG in SYRINGE 0 ML IV SCH (20:00)
[2022-01-28] MEDS: PIPERACILLIN/TAZOBACTAM 4.5 GM in DEXTROSE 5% 100 ML IV SCH ×2 (03:23→16:48)
--- NOTE | 2022-01-28 07:35 | Hospitalist Progress Note ---
Date of Service January 28, 2022 Assessment & Plan (1) Acute osteomyelitis of right foot: Plan: Patient is a 51-year-old male with past medical history of ESRD on Sunday dialysis, chronic hypoxemic respiratory failure secondary to restrictive lung disease and pulmonary hypertension on 4 L of oxygen at home, type 2 diabetes on 33 units daily of Toujeo, hypertension, atrial fibrillation, and pacemaker placement (see insertion 1 week ago) coming into the hospital for evaluation of a right foot infection. Patient has been started on daptomycin and Zosyn and is currently hemodynamically stable. -MRI of right foot can not be completed due to recent pacemaker placement -ESR and CRP suggestive of active osteomyelitis infection; trending down (ESR 67-> 47) (CRP 5.17-> 4.09) -Started on daptomycin daily and Zosyn every 12 hours on dialysis days, immediately after dialysis -Consulted podiatry; Day 1 s/p 2nd Metatarsal Resection on right - Vascular surgery unable to offer surgical management as duplex US LE showed Findings of peripheral vascular disease with no sonographic evidence of high- grade stenosis or focal vessel cut off through the arteries of the right or left lower extremity. -Blood cultures negative after 24 hours; wound cultures growing pseudomonas; will follow surgical cultures and adjust antibiotics accordingly -Holding Eliquis postoperatively; will restart tomorrow/Sunday (2) Ulcer of extremity due to chronic venous insufficiency: Plan: See plan above (3) Elevated troponin: Plan: Elevated troponin on admission= 129, repeat 120 - Denies chest pain, ECG without ischemic changes -> likely secondary to ESRD - continue to monitor tele (4) End-stage renal disease on hemodialysis: Plan: -Sunday hemodialysis -Consult nephrology, appreciate recommendations -Avoid nephrotoxic agents (5) PAF (paroxysmal atrial fibrillation): Plan: -Continue telemetry -Typically on Eliquis -Hold anticoagulation post operatively until tomorr/Sunday (6) Moderate pulmonary hypertension: Plan: - Stable, continue CPAP at night (7) GERD (gastroesophageal reflux disease): Plan: - Continue omeprazole (8) Restrictive lung disease secondary to obesity: Plan: - Continue CPAP at night as above -Continue Breo Ellipta, albuterol as needed, montelukast (9) Chronic diastolic heart failure: Plan: - Not currently on beta-alesia -Most recent echo on 01/08/2022 at [facility] consistent of left ventricular size moderately dilated, left ventricular hypertrophy, diffuse hypokinesis, left ventricular function mild to moderately decreased, ejection fraction of 35 to 40% -Consideration to start beta-alesia, spironolactone, SGLT2 as an OP (10) Obstructive sleep apnea: Plan: - CPAP as above (11) Hyperlipidemia: Plan: - Hold statin due to possible reaction with Zosyn/Daptomycin (12) CAD (coronary artery disease): Plan: - Continue aspirin, Plavix, ranolazine (13) Diabetes mellitus type 2, uncontrolled: Plan: - Last A1c on 12/29 was 7.1; 7.6 on admission -Typically takes 33 units of Toujeo daily -Basal bolus with sliding scale and carb consistent diet while in hospital -Pharmacy glycemic consult placed, appreciate recommendations (14) Hypertension: Plan: -Continue hydralazine twice daily (15) Orthostatic hypotension: Plan: - Typically receives midodrine 3 times daily but will hold for now if he becomes hypotensive, consider restarting Disposition: Admit to PCU Diet: Carb consistent, dialysis diet DVT prophylaxis: Deirdre Fitzgerald on hold CODE STATUS: Full code Admission and Anticipated Discharge Date Admission Date: January 25, 2022 Supervising Physician Co-Signing Physician Notes I also saw the patient with Dr. Watkins and confirmed mata portions of the history and physical examination. Agree with impression plan as noted the resident documentation and as summarized below. The patient is lying semireclined in bed. He has no complaints at present. We talked about some of the items he may need when he transitions home in terms of ADLs/ambulation. He does live in a two-story house and expressed interest in a lift chair to send to his second story; suggested the alternative, lesser expense and sometimes more practical idea of a hospital bed on the first floor. Exam 118/62, 70, 20, 36.6, 95% on nasal cannula at 4.5 L/min Heart is regular. Lungs are clear with nonlabored respirations Abdomen soft nontender. Bowel sounds are appreciated. Right foot is bandaged/not examined today. Data Hemoglobin 9.7 Sodium 135, potassium 5, BUN 25, creatinine 6.24 Imaging Arterial Dopplers of the lower extremities consistent with peripheral vascular disease but no evidence of high-grade stenosis or focal vessel cutoff through the arteries of the right or left lower extremity. Micro Right foot wound from 01/25/2022 shows Pseudomonas. Operative wound cultures from 01/27/2022, Gram stain negative, culture showed no growth to date Impression and plan Acute osteomyelitis of the 3rd toe, right foot Debridement by podiatry yesterday Vascular studies reassuring Operative cultures pending, gram stain negative Continue antibiotics pending operative cultures End-stage renal disease on hemodialysis Antibiotics renally dosed Appreciate nephrology consultation Hemodialysis as scheduled Paroxysmal atrial fibrillation If okay with surgery, would like to resume Eliquis tomorrow Else see resident documentation as noted. Subjective 51 year old male with a past medical history of ESRD on HD MWF, chronic hypoxemic respiratory failure secondary to restrictive lung disease and pulmonary hypertension on 4 L of oxygen at home, type 2 diabetes on 33 units daily of Toujeo, hypertension, atrial fibrillation, and pacemaker placed 1 week ago. Presenting with right foot infection. ED course significant for ESR= 66, creatine= 4.99 (BL), alk phos= 182, trop= 129m CRP= 5.17. X ray right foot consistent with cortical erosions of the third proximal phalanx as well as noted arterial calcifications. Started on Daptomycin + Zosyn to cover for osteomyelitis/dry gangrene. States that he is doing well this morning. Denies any pain in his foot. Denies chest pain, dyspnea, cough. Concerns about getting around house and being non weight bearing on his foot for 4 weeks. Review of Systems Review of Systems: As per HPI Physical Exam Physical Exam: Constitutional: well-appearing, no acute distress HEENT: NCAT, no conjunctival injection CV: regular rhythm, no murmur appreciated, extremities well-perfused, no LE edema, + pacemaker Resp: CTABL, no wheezes/rales/rhonchi appreciated, no increased work of breathing GI: soft, nondistended, nontender, BS normoactive MSK: no gross deformities appreciated, dressing in right foot clean and dry Skin: warm, dry, no rash appreciated Neuro: alert, oriented, no focal neurologic deficit appreciated Results & Data Results & Data ([facility]) Vital Signs (Past 12 Hours) Vital Signs Temp Pulse Resp BP Pulse Ox O2 Del Method O2 Flow Rate 01/28/22 04:26 36.8 C 70 16 124/78 96 Nasal Cannula 4 01/27/22 23:06 36.7 C 72 18 111/70 97 Nasal Cannula 4 01/27/22 22:32 Nasal Cannula 4 (1) CAD (coronary artery disease) Associated angina: without angina Coronary Disease-Associated Artery/Lesion type: [place] artery [place] vs. transplanted heart: [place]upiat heart Qualified Code(s): I25.10 - Atherosclerotic heart disease of inup[place] coronary artery without angina pectoris (2) Diabetes mellitus type 2, uncontrolled Glycemic state: with hyperglycemia Qualified Code(s): E11.65 - Type 2 diabetes mellitus with hyperglycemia
[2022-01-28 08:07] LABS: Basophils # (auto) 0.09 K/uL (0-0.2); Basophils % (auto) 0.9 %; Eosinophils # (auto) 0.09 K/uL (0-0.50); Eosinophils % (auto) 0.9 %; Hematocrit (blood only) 30.5 % (40.1-51.0); Hemoglobin 9.7 g/dl (14.0-18.0); Immature Granulocytes # (auto) 0.07 K/uL (0.00-0.02); Immature Granulocytes % (auto) 0.7 %; Lymphocytes # (auto) 0.79 K/uL (1.2-3.4); Lymphocytes % (auto) 7.5 %; Mean Corpuscular Hemoglobin 30.7 pg (25.0-34.0); Mean Corpuscular Hgb Conc 31.8 g/dL (32.0-36.0); Mean Corpuscular Volume 96.5 fL (80.0-100.0); Mean Platelet Volume 9.7 fL (9.4-12.4); Monocytes # (auto) 0.82 K/uL (0.24-0.82); Monocytes % (auto) 7.8 %; Neutrophils # (auto) 8.71 K/uL (1.4-6.5); Neutrophils % (auto) 82.2 %; Nucleated RBC # (auto) 0.04 K/uL (0-0); Nucleated RBC % (auto) 0.4 %; Platelet Count 179 K/uL (130-400); RDW Standard Deviation 58.8 fL (36.4-46.3); Red Blood Count 3.16 M/uL (4.63-6.08); White Blood Count 10.57 K/ul (4.8-10.8)
[2022-01-28] MEDS: INSULIN ASPART PER UNIT SC SCH ×5 (08:43→21:49)
--- NOTE | 2022-01-28 08:54 | Nephrology Progress Note ---
Date of Service January 28, 2022 Assessment & Plan (1) End-stage renal disease on hemodialysis: Plan: * ESKD on IHD at [facility]. Outpatient Rx - MWF 4 hours and 15 min, Qb 400 via AVF, 2 K bath. EDW 105.5 kg. * Volume status and electrolyte balance are acceptable. No acute indication for HD today * PRP in am (2) Diabetic infection of right foot: Plan: * s/p R 2nd metatarsal resection 01/27/22 * On Zosyn, Daptomycin (3) Anemia of chronic disease: Plan: * Epogen 61474 units administered 01/27/22 Admission and Anticipated Discharge Date Admission Date: January 25, 2022 Subjective Mr. Walker was evaluated in his hospital room this morning. He was dialyzed yesterday for 2 L UF without complication. He reports that he will need to remain NWB R foot for one week Review of Systems Constitutional: no fever Eyes: no problem reported Ear, Nose, Mouth, Throat: no problem reported Respiratory: no dyspnea Cardiovascular: no chest pain Gastrointestinal: no abdominal pain Neurologic: no problem reported Physical Exam Constitutional: not in distress Eyes: PERRL, conjunctivae normal, anicteric sclerae ENMT: external ear and nose normal, oropharynx normal Neck: trachea midline, no thyromegaly Respiratory: normal respiratory effort, lungs clear to auscultation Cardiovascular: RRR, no murmur, no edema AVF + bruit Gastrointestinal (Abdomen): normal bowel sounds, soft, nontender, no hepatosplenomegaly Musculoskeletal: R foot wrapped w/ zee bandage Neurologic: Speech / Cognition: normal speech and normal cognition Results & Data ([facility]) Vital Signs (Past 12 Hours) Vital Signs Temp Pulse Resp BP Pulse Ox O2 Del Method O2 Flow Rate 01/28/22 08:17 36.8 C 70 20 132/68 98 Nasal Cannula 5.0 01/28/22 04:26 36.8 C 70 16 124/78 96 Nasal Cannula 4 01/27/22 23:06 36.7 C 72 18 111/70 97 Nasal Cannula 4 01/27/22 22:32 Nasal Cannula 4 Laboratory Results Laboratory Tests 01/28/22 07:58 WBC 10.57 Hgb 9.7 L Hct 30.5 L Plt Count 179 Laboratory Tests 01/28/22 07:58 Sodium 135 L Potassium 5.0 D Chloride 97 L Carbon Dioxide 24 Anion Gap 14 H BUN 25 H Creatinine 6.24 H* D Glucose 116 H PG Care Time/CCT Total # of Minutes Spent Total Time Spent with Patient: Total time spent is greater than 50% in coordination of care (as documented) at patient's floor/unit and/or counseling patient: Coding Level of Care Code 15707 Subseq Hosp Care Lvl 3 Diagnoses End-stage renal disease on hemodialysis N18.6; Z99.2 Diabetic infection of right foot E11.628; L08.9 Anemia of chronic disease D63.8
[2022-01-28 09:04] LABS: Alanine Aminotransferase < 3 U/L (7-52); Albumin Globulin Ratio 1.1 (0.9-2); Albumin Level 3.6 gm/dl (3.4-5.0); Alkaline Phosphatase 140 U/L (34-104); Anion Gap 14 (3-11); Aspartate Aminotransferase 10 U/L (13-39); Bilirubin,Total 0.9 mg/dl (0.2-1.0); Blood Urea Nitrogen 25 mg/dl (6-23); Calcium 8.8 mg/dl (8.5-10.1); Carbon Dioxide 24 mmol/L (21-32); Chloride 97 mmol/L (98-107); Creatinine Clr Calc Pharmacy 15.6 ml/min; Est GFR (African American) 10.8 ml/min; Est GFR (Non-African American) 9.4 ml/min; Globulin 3.3 gm/dl (2.5-4.0); Glucose 116 mg/dl (70-99(Fasting)); Sodium 135 mmol/L (136-145); Total Protein 6.9 gm/dl (6.0-8.3)
[2022-01-28] MEDS: CLOPIDOGREL BISULFATE 75 MG TAB PO SCH (09:13)
[2022-01-28] MEDS: CHOLECALCIFEROL 1,000 UNITS 25 MCG TAB PO SCH (09:13)
[2022-01-28] MEDS: MONTELUKAST SODIUM 10 MG TABLET PO SCH (09:13)
[2022-01-28] MEDS: PANTOprazole 40 MG TAB PO SCH (09:14)
[2022-01-28] MEDS: hydrALAZINE HCL 25 MG TAB PO SCH ×2 (09:14→20:47)
[2022-01-28] MEDS: RANOLAZINE 500 MG ER TAB PO SCH ×2 (09:14→20:47)
[2022-01-28] MEDS: ASPIRIN 81 MG ECTAB PO SCH (09:15)
[2022-01-28] MEDS: FLUTICASONE/VILANTEROL 100/25MCG 14 PUFFS/INHALER INH SCH (09:15)
--- NOTE | 2022-01-28 09:17 | Operative Report ---
Post Operative Report Pre & Post Diagnosis Operation Date: 01/27/22 07:00 Pre-Op Diagnosis: FOOT ULCER, GANGRENE Post-Op Diagnosis: FOOT ULCER, GANGRENE I identified the patient and participated in the time-out.: Yes Procedure Operation Date: 01/27/22 07:00 Actual Procedures p 2nd Metatarsal Resection(Right) - Edilson Rust DPM, MS Surgeon Edilson Rust DPM, MS [employer] Senior Manager None Estimated Blood Loss 20 Findings Consistent with Post-Op Diagnosis necrotic bone and soft tissue right foot Specimens 1.) Second metatarsal Pathology 2.) Third metatarsal Pathology 3.) Fifth Ray Pathology 4.) Second metatarsal Microbiology Description of Procedure History of present illness: Patient is a diabetic, 51 year old male who is seen for treatment of soft tissue necrosis and osteomyelitis of the Right foot.v Patient relates minimal discomfort. He is seen for operative care including removal of non viable bone and soft tissue to right foot. Due to infection wound will be left open to drain. All questions answered. Discussed procedure in detail and postoperative recovery. All potential risks, benefits, comp lications, alternatives, rehab, potential for incomplete relief of symptoms, need for further surgery, DVT, PE, , persistent pain, swelling, scarring, weakness, neurovascular, wound complications and potential for amputations were discussed with patient. Unwanted outcomes such as, but not limited to were reviewed including under correction, overcorrection, return of deformity, infection. All questions were answered. Patient has decided to proceed with procedure as indicated. Preoperative diagnosis: 1.) Diabetic ulcers with necrotic tissue right foot 2.) Osteomyelitis right second metatarsal 3.) Osteomyelitis right third proximal phalanx 4.) Osteomyelitis third metatarsal 5.) Osteomyelitis right fifth metatarsal and phalanx of right fifth toe Postoperative diagnosis: same Name of operation: 1.) Partial excision of second metatarsal Right foot 2.) Partial excision of third metatarsal Right foot 3.) Partial excision of third proximal phalanx Right third toe 4.) Amputation of Right Fifth toe 5.) Partial excision of fifth metatarsal of Right foot 6.) Delayed primary closure Right foot wound Surgeon: Dr. Rust [employer] Senior Manager: None Anesthesia: Monitored anesthesia care Hemostasis: pneumatic ankle tourniquet Estimated blood loss: minimal Procedure in detail: Under mild sedation the patient was brought in the operating room placed on the operating table in supine position. A pneumatic calf tourniquet was then placed about the patient's right calf. Following IV sedation the foot was prepped scrubbed and draped in usual aseptic manner. An Esmarch bandage was utilized to exsanguinate the patient's right foot and the pneumatic ankle tourniquet was then inflated. Attention was then directed to a nonhealing diabetic ulcer on the lateral right foot over the plantar lateral fifth toe and metatarsal. A diabetic foot ulcer is present with significant necrotic tissue involving the fifth lateral ray. A lateral incision was created over the necrotic fifth toe and fifth metatarsal head utilizing a sharp, sterile, #15 blade. The lateral diabetic foot ulcer and entire fifth digit is excised and placed on the back table. This is labeled right fifth ray and sent to pathology. At this time the fifth metatarsal is examined and noted to be discolored with signs on necrosis. Utilizing an ossilating bone saw the proximal portion is excised and placed on the back table. At this time attention is directed to the second ray where x-rays show necrosis of second metatarsal. Utilizing a sharp, sterile, #15 blade an inision is placed over the second metatarsal. The incision was deepened through subcutaneous tissue using sharp blunt dissection. Care was taken to identify and retract all vital neurovascular structures. All bleeders were ligated and cauterized necessary. An oscillating saw was used to remove a portion of the necrotic second metatarsal. The osteomyelitic second metatarsal bone and placed on the back table. A portion of the second metatarsal was sent to microbiology. The remainder of the excised right second metatarsal was sent to pathology. At this time attention is directed to the third digit where x-rays show necrosis of third proximal phalanx. Utilizing a sharp, sterile, #15 blade an incision is placed over the third metatarsal phalangeal joint. The incision deepened utilizing a deep sharp, sterile, #15 blade. The incision was deepened through subcutaneous tissue using sharp blunt dissection. Care was taken to identify and retract all vital neurovascular structures. All bleeders were ligated and cauterized necessary. An oscillating saw was used to remove the proximal portion of right third proximal phalanx. During examination the third metatarsal also appears necrotic. An oscillating saw was used to remove the distal portion of right third metatarsal. 1 L of lactated Ringer was then irrigated with low flow into the wounds. Further nonviable soft tissue was excised as needed. Upon completion of the procedure the incisions over the second and third rays were closed with 4-0 nylon. The lateral wound was dressed with compressive dressing consisting of 4 x 4's Cole Kerlix ABD. The pneumatic calf tourniquet was deflated and a prompt hyperemic response was noted to remaining digits of the right foot. The Patient tolerated the procedure and anesthesia well. He was transferred to recovery room vital signs stable and vascular status intact all toes of the right foot following. Following a period of postoperative monitoring the patient will be readmitted to floor with the continuation of all preoperative orders. I attest to the content of the Intraoperative Record and any orders documented therein. Any exceptions are noted below.
[2022-01-28] MEDS: LANTUS PER UNIT CHARGE SQ SCH (09:20)
[2022-01-29] MEDS: PIPERACILLIN/TAZOBACTAM 4.5 GM in DEXTROSE 5% 100 ML IV SCH ×3 (03:21→17:12)
[2022-01-29 06:06] LABS: Hematocrit (blood only) 29.3 % (40.1-51.0); Hemoglobin 9.5 g/dl (14.0-18.0); Mean Corpuscular Hemoglobin 30.7 pg (25.0-34.0); Mean Corpuscular Hgb Conc 32.4 g/dL (32.0-36.0); Mean Corpuscular Volume 94.8 fL (80.0-100.0); Mean Platelet Volume 10.4 fL (9.4-12.4); Nucleated RBC # (auto) 0.02 K/uL (0-0); Nucleated RBC % (auto) 0.2 %; Platelet Count 186 K/uL (130-400); RDW Coefficient of Variation 17.1 % (11.5-14.5); RDW Standard Deviation 58.2 fL (36.4-46.3); Red Blood Count 3.09 M/uL (4.63-6.08)
[2022-01-29 06:28] LABS: BUN Creatinine Ratio 4.4 (10-20); Calcium 8.9 mg/dl (8.5-10.1); Est GFR (African American) 7.9 ml/min; Est GFR (Non-African American) 6.8 ml/min; Potassium 4.4 mmol/L (3.5-5.1)
[2022-01-29] MEDS: RANOLAZINE 500 MG ER TAB PO SCH ×2 (08:09→20:51)
[2022-01-29] MEDS: PANTOprazole 40 MG TAB PO SCH (08:09)
[2022-01-29] MEDS: MONTELUKAST SODIUM 10 MG TABLET PO SCH (08:09)
[2022-01-29] MEDS: CLOPIDOGREL BISULFATE 75 MG TAB PO SCH (08:09)
[2022-01-29] MEDS: CHOLECALCIFEROL 1,000 UNITS 25 MCG TAB PO SCH (08:09)
[2022-01-29] MEDS: ASPIRIN 81 MG ECTAB PO SCH (08:10)
[2022-01-29] MEDS: hydrALAZINE HCL 25 MG TAB PO SCH ×2 (08:10→20:51)
[2022-01-29] MEDS: FLUTICASONE/VILANTEROL 100/25MCG 14 PUFFS/INHALER INH SCH (08:13)
[2022-01-29] MEDS: INSULIN ASPART PER UNIT SC SCH ×4 (09:10→20:52)
[2022-01-29] MEDS: LANTUS PER UNIT CHARGE SQ SCH (09:10)
--- NOTE | 2022-01-29 09:20 | Nephrology Progress Note ---
Date of Service January 29, 2022 Assessment & Plan (1) End-stage renal disease on hemodialysis: Plan: * ESKD on IHD at [facility]. Outpatient Rx - MWF 4 hours and 15 min, Qb 400 via AVF, 2 K bath. EDW 105.5 kg. * Volume status and electrolyte balance are acceptable. No acute indication for HD today * Will schedule next HD for am (2) Diabetic infection of right foot: Plan: * s/p R 2nd metatarsal resection 01/27/22 * On Zosyn, Daptomycin * Recommend consolidating antibiotics if possible and testing for C. Difficile due to new onset diarrhea (3) Anemia of chronic disease: Plan: * Epogen 71776 units administered 01/27/22 Admission and Anticipated Discharge Date Admission Date: January 25, 2022 Subjective Mr. Walker was evaluated in his hospital room this morning. He reports new onset diarrhea Review of Systems Constitutional: no fever Eyes: no problem reported Ear, Nose, Mouth, Throat: no problem reported Respiratory: no dyspnea Cardiovascular: no chest pain Gastrointestinal: no abdominal pain Neurologic: no problem reported Physical Exam Constitutional: not in distress Eyes: PERRL, conjunctivae normal, anicteric sclerae ENMT: external ear and nose normal, oropharynx normal Neck: trachea midline, no thyromegaly Respiratory: normal respiratory effort, lungs clear to auscultation Cardiovascular: RRR, no murmur, no edema Gastrointestinal (Abdomen): normal bowel sounds, soft, nontender, no hepatosplenomegaly Neurologic: Speech / Cognition: normal speech and normal cognition Results & Data ([facility]) Vital Signs (Past 12 Hours) Vital Signs Temp Pulse Resp BP Pulse Ox O2 Del Method O2 Flow Rate 01/29/22 08:13 36.6 C 70 19 129/83 99 Nasal Cannula 5.0 01/29/22 04:05 36.6 C 70 18 148/80 H 97 Nasal Cannula 4.0 01/28/22 22:32 36.9 C 70 18 139/69 99 Nasal Cannula 4.0 01/28/22 21:54 Nasal Cannula 4 Laboratory Results Laboratory Tests 01/29/22 01/29/22 05:34 05:34 WBC 9.10 Hgb 9.5 L Hct 29.3 L Plt Count 186 Sodium 133 L Potassium 4.4 Chloride 95 L Carbon Dioxide 24 BUN 36 H Creatinine 8.12 H* D Glucose 115 H PG Care Time/CCT Total # of Minutes Spent Total Time Spent with Patient: Total time spent is greater than 50% in coordination of care (as documented) at patient's floor/unit and/or counseling patient: Coding Level of Care Code 05957 Subseq Hosp Care Lvl 3 Diagnoses End-stage renal disease on hemodialysis N18.6; Z99.2 Diabetic infection of right foot E11.628; L08.9 Anemia of chronic disease D63.8
--- NOTE | 2022-01-29 14:51 | Hospitalist Progress Note ---
Date of Service January 29, 2022 Assessment & Plan (1) Acute osteomyelitis of right foot: Plan: Patient is a 51-year-old male with past medical history of ESRD on Sunday dialysis, chronic hypoxemic respiratory failure secondary to restrictive lung disease and pulmonary hypertension on 4 L of oxygen at home, type 2 diabetes on 33 units daily of Toujeo, hypertension, atrial fibrillation, and pacemaker placement (see insertion 1 week ago) coming into the hospital for evaluation of a right foot infection. Patient has been started on daptomycin and Zosyn and is currently hemodynamically stable. -MRI of right foot can not be completed due to recent pacemaker placement -ESR and CRP suggestive of active osteomyelitis infection; trending down (ESR 67-> 47) (CRP 5.17-> 4.09) -Started on daptomycin daily and Zosyn every 12 hours on dialysis days, wound cultures growing pseudomonas. Surgical cultures without growth. Will d/c daptomycin and continue Zosyn. If diarrhea persists, will test for C diff -Consulted podiatry; Day 1 s/p 2nd Metatarsal Resection on right - Vascular surgery unable to offer surgical management as duplex US LE showed Findings of peripheral vascular disease with no sonographic evidence of high- grade stenosis or focal vessel cut off through the arteries of the right or left lower extremity. -Holding Eliquis postoperatively; will restart tomorrow pending podiatry recommendations (2) Ulcer of extremity due to chronic venous insufficiency: Plan: See plan above (3) Elevated troponin: Plan: Elevated troponin on admission= 129, repeat 120 - Denies chest pain, ECG without ischemic changes -> likely secondary to ESRD - continue to monitor tele (4) End-stage renal disease on hemodialysis: Plan: -Sunday hemodialysis -Consult nephrology, appreciate recommendations -Avoid nephrotoxic agents (5) PAF (paroxysmal atrial fibrillation): Plan: -Continue telemetry -Typically on Eliquis -Hold anticoagulation post operatively until tomorrow (6) Moderate pulmonary hypertension: Plan: - Stable, continue CPAP at night (7) GERD (gastroesophageal reflux disease): Plan: - Continue omeprazole (8) Restrictive lung disease secondary to obesity: Plan: - Continue CPAP at night as above -Continue Breo Ellipta, albuterol as needed, montelukast (9) Chronic diastolic heart failure: Plan: - Not currently on beta-alesia -Most recent echo on 01/08/2022 at [facility] consistent of left ventricular size moderately dilated, left ventricular hypertrophy, diffuse hypokinesis, left ventricular function mild to moderately decreased, ejection fraction of 35 to 40% -Consideration to start beta-[place], spironolactone, SGLT2 as an OP (10) Obstructive sleep apnea: Plan: - CPAP as above (11) Hyperlipidemia: Plan: - Hold statin due to possible reaction with Zosyn/Daptomycin (12) CAD (coronary artery disease): Plan: - Continue aspirin, Plavix, ranolazine (13) Diabetes mellitus type 2, uncontrolled: Plan: - Last A1c on 12/29 was 7.1; 7.6 on admission -Typically takes 33 units of Toujeo daily -Basal bolus with sliding scale and carb consistent diet while in hospital -Pharmacy glycemic consult placed, appreciate recommendations (14) Hypertension: Plan: -Continue hydralazine twice daily (15) Orthostatic hypotension: Plan: - Typically receives midodrine 3 times daily but will hold for now if he becomes hypotensive, consider restarting Disposition: Admit to PCU Diet: Carb consistent, dialysis diet DVT prophylaxis: Deirdre Fitzgerald on hold CODE STATUS: Full code Admission and Anticipated Discharge Date Admission Date: January 25, 2022 Supervising Physician Co-Signing Physician Notes I also saw the patient with Dr. Watkins and confirmed mata portions of the history and physical examination. Agree with impression plan as noted the resident documentation and as summarized below. He does note some GI side effects which he attributes to the antibiotics Exam 154/90, 70, 20, 36.6, 90% nasal cannula at 5 L/min Heart is regular. Lungs are clear with nonlabored respirations Abdomen soft nontender. Bowel sounds are appreciated. Right foot is bandaged/not examined today. Data Hemoglobin 9.5 Sodium 133, potassium 4.4, BUN 36, creatinine 8.12 Imaging Arterial Dopplers of the lower extremities consistent with peripheral vascular disease but no evidence of high-grade stenosis or focal vessel cutoff through the arteries of the right or left lower extremity. Micro Right foot wound from 01/25/2022 shows Pseudomonas. Operative wound cultures from 01/27/2022, Gram stain negative, culture shows no growth to date Impression and plan Acute osteomyelitis of the 3rd toe, right foot Debridement by podiatry 01/27 Vascular studies reassuring Operative cultures pending, gram stain negative Continue Piperacillin/Tazobactom, discontinue dapto End-stage renal disease on hemodialysis Antibiotics renally dosed Appreciate nephrology consultation Hemodialysis as scheduled Paroxysmal atrial fibrillation Resume Eliquis tomorrow Else see resident documentation as noted. Subjective 51 year old male with a past medical history of ESRD on HD MWF, chronic hypoxemic respiratory failure secondary to restrictive lung disease and pulmonary hypertension on 4 L of oxygen at home, type 2 diabetes on 33 units daily of Toujeo, hypertension, atrial fibrillation, and pacemaker placed 1 week ago. Presenting with right foot infection. ED course significant for ESR= 66, creatine= 4.99 (BL), alk phos= 182, trop= 129m CRP= 5.17. X ray right foot consistent with cortical erosions of the third proximal phalanx as well as noted arterial calcifications. Started on Daptomycin + Zosyn to cover for osteomyelitis/dry gangrene. States that he is doing well this morning. Denies any pain in his foot. Denies chest pain, dyspnea, cough. Does have some new onset diarrhea this morning that he thinks is from the antibiotics. Review of Systems Review of Systems: As per HPI Physical Exam Physical Exam: Constitutional: well-appearing, no acute distress HEENT: NCAT, no conjunctival injection CV: regular rhythm, no murmur appreciated, extremities well-perfused, no LE edema, + pacemaker Resp: CTABL, no wheezes/rales/rhonchi appreciated, no increased work of breathing GI: soft, nondistended, nontender, BS normoactive MSK: no gross deformities appreciated, dressing on right foot clean and dry Skin: warm, dry, no rash appreciated Neuro: alert, oriented, no focal neurologic deficit appreciated Results & Data Results & Data ([facility]) Vital Signs (Past 12 Hours) Vital Signs Temp Pulse Pulse Resp BP Pulse Ox O2 Del Method 01/29/22 12:19 36.6 C 70 20 154/90 H 98 Nasal Cannula 01/29/22 06:15 70 01/29/22 08:00 Nasal Cannula 01/29/22 08:13 36.6 C 70 19 129/83 99 Nasal Cannula 01/29/22 04:05 36.6 C 70 18 148/80 H 97 Nasal Cannula O2 Flow Rate 01/29/22 12:19 5.0 01/29/22 06:15 01/29/22 08:00 4 01/29/22 08:13 5.0 01/29/22 04:05 4.0 (1) CAD (coronary artery disease) Associated angina: without angina Coronary Disease-Associated Artery/Lesion type: [place] artery [place] vs. transplanted heart: [place] heart Qualified Code(s): I25.10 - Atherosclerotic heart disease of [place] coronary artery without angina pectoris (2) Diabetes mellitus type 2, uncontrolled Glycemic state: with hyperglycemia Qualified Code(s): E11.65 - Type 2 diabetes mellitus with hyperglycemia
[2022-01-29] MEDS ORDERED: LOPERAMIDE HCL 2 MG CAP PO ONE (16:53)
[2022-01-29] MEDS ORDERED: LOPERAMIDE LIQUID 120 ML BOTTLE PO STA (20:13)
[2022-01-29] MEDS: ONDANSETRON INJ 2 MG/ML 2 ML VIAL IV PRN (20:52)
[2022-01-30] MEDS: PIPERACILLIN/TAZOBACTAM 4.5 GM in DEXTROSE 5% 100 ML IV SCH ×2 (04:59→15:31)
[2022-01-30] MEDS ORDERED: SODIUM CHLORIDE 0.9% 1000ML 1,000 ML IV PRN (07:00)
[2022-01-30] MEDS ORDERED: EPOETIN ALFA 10,000 UNITS/ML VIAL IV ONE (07:00)
--- NOTE | 2022-01-30 07:03 | Hospitalist Progress Note ---
Date of Service January 30, 2022 Assessment & Plan (1) Acute osteomyelitis of right foot: Plan: Patient is a 51-year-old male with past medical history of ESRD on Sunday dialysis, chronic hypoxemic respiratory failure secondary to restrictive lung disease and pulmonary hypertension on 4 L of oxygen at home, type 2 diabetes on 33 units daily of Toujeo, hypertension, atrial fibrillation, and pacemaker placement (see insertion 1 week ago) coming into the hospital for evaluation of a right foot infection. Patient has been started on daptomycin and Zosyn and is currently hemodynamically stable. -MRI of right foot can not be completed due to recent pacemaker placement -ESR and CRP suggestive of active osteomyelitis infection; trending down (ESR 67-> 47) (CRP 5.17-> 4.09) -Started on daptomycin daily and Zosyn every 12 hours on dialysis days, wound cultures growing pseudomonas. Surgical cultures without growth. Will d/c daptomycin and continue Zosyn. C diff pending -Consulted podiatry; Day 1 s/p 2nd Metatarsal Resection on right - Vascular surgery unable to offer surgical management as duplex US LE showed Findings of peripheral vascular disease with no sonographic evidence of high- grade stenosis or focal vessel cut off through the arteries of the right or left lower extremity. -Holding Eliquis postoperatively; will restart today (2) Ulcer of extremity due to chronic venous insufficiency: Plan: See plan above (3) Elevated troponin: Plan: Elevated troponin on admission= 129, repeat 120 - Denies chest pain, ECG without ischemic changes -> likely secondary to ESRD - continue to monitor tele (4) End-stage renal disease on hemodialysis: Plan: -Sunday hemodialysis -Consult nephrology, appreciate recommendations -Avoid nephrotoxic agents (5) PAF (paroxysmal atrial fibrillation): Plan: -Continue telemetry -Typically on Eliquis -Hold anticoagulation post operatively until tomorrow (6) Moderate pulmonary hypertension: Plan: - Stable, continue CPAP at night (7) GERD (gastroesophageal reflux disease): Plan: - Continue omeprazole (8) Restrictive lung disease secondary to obesity: Plan: - Continue CPAP at night as above -Continue Breo Ellipta, albuterol as needed, montelukast (9) Chronic diastolic heart failure: Plan: - Not currently on beta-alesia -Most recent echo on 01/08/2022 at [facility] consistent of left ventricular size moderately dilated, left ventricular hypertrophy, diffuse hypokinesis, left ventricular function mild to moderately decreased, ejection fraction of 35 to 40% -Consideration to start beta-[place]ia, spironolactone, SGLT2 as an OP (10) Obstructive sleep apnea: Plan: - CPAP as above (11) Hyperlipidemia: Plan: - Hold statin due to possible reaction with Zosyn/Daptomycin (12) CAD (coronary artery disease): Plan: - Continue aspirin, Plavix, ranolazine (13) Diabetes mellitus type 2, uncontrolled: Plan: - Last A1c on 12/29 was 7.1; 7.6 on admission -Typically takes 33 units of Toujeo daily -Basal bolus with sliding scale and carb consistent diet while in hospital -Pharmacy glycemic consult placed, appreciate recommendations (14) Hypertension: Plan: -Continue hydralazine twice daily (15) Orthostatic hypotension: Plan: - Typically receives midodrine 3 times daily but will hold for now if he becomes hypotensive, consider restarting Disposition: Admit to PCU Diet: Carb consistent, dialysis diet DVT prophylaxis: [id number] on hold CODE STATUS: Full code Admission and Anticipated Discharge Date Admission Date: January 25, 2022 Subjective 51 year old male with a past medical history of ESRD on HD MWF, chronic hypoxemic respiratory failure secondary to restrictive lung disease and pulmonary hypertension on 4 L of oxygen at home, type 2 diabetes on 33 units daily of Toujeo, hypertension, atrial fibrillation, and pacemaker placed 1 week ago. Presenting with right foot infection. ED course significant for ESR= 66, creatine= 4.99 (BL), alk phos= 182, trop= 129m CRP= 5.17. X ray right foot consistent with cortical erosions of the third proximal phalanx as well as noted arterial calcifications. Started on Daptomycin + Zosyn to cover for osteomyelitis/dry gangrene. Review of Systems Review of Systems: As per HPI Physical Exam Physical Exam: Constitutional: well-appearing, no acute distress HEENT: NCAT, no conjunctival injection CV: regular rhythm, no murmur appreciated, extremities well-perfused, no LE edema, + pacemaker Resp: CTABL, no wheezes/rales/rhonchi appreciated, no increased work of breathing GI: soft, nondistended, nontender, BS normoactive MSK: no gross deformities appreciated, dressing on right foot clean and dry Skin: warm, dry, no rash appreciated Neuro: alert, oriented, no focal neurologic deficit appreciated Results & Data Results & Data ([facility]) Vital Signs (Past 12 Hours) Vital Signs Temp Pulse Pulse Resp BP Pulse Ox O2 Del Method 01/30/22 01:33 70 01/29/22 22:59 36.5 C 79 18 127/74 98 Room Air 01/29/22 20:00 Nasal Cannula O2 Flow Rate 01/30/22 01:33 01/29/22 22:59 01/29/22 20:00 4 (1) CAD (coronary artery disease) Coronary Disease-Associated Artery/Lesion type: [place] artery [place] vs. transplanted heart: [place] heart Associated angina: without angina Qualified Code(s): I25.10 - Atherosclerotic heart disease of [place] coronary artery without angina pectoris (2) Diabetes mellitus type 2, uncontrolled Glycemic state: with hyperglycemia Qualified Code(s): E11.65 - Type 2 diabetes mellitus with hyperglycemia
[2022-01-30 07:44] LABS: Hematocrit (blood only) 28.8 % (40.1-51.0); Hemoglobin 9.4 g/dl (14.0-18.0); Mean Corpuscular Hemoglobin 30.7 pg (25.0-34.0); Mean Corpuscular Hgb Conc 32.6 g/dL (32.0-36.0); Mean Corpuscular Volume 94.1 fL (80.0-100.0); Mean Platelet Volume 10.2 fL (9.4-12.4); Nucleated RBC # (auto) 0.02 K/uL (0-0); Nucleated RBC % (auto) 0.2 %; Platelet Count 157 K/uL (130-400); RDW Standard Deviation 57.5 fL (36.4-46.3); Red Blood Count 3.06 M/uL (4.63-6.08); White Blood Count 8.71 K/ul (4.8-10.8)
[2022-01-30 08:20] LABS: Creatinine Clr Calc Pharmacy 10.2 ml/min; Est GFR (African American) 6.4 ml/min; Est GFR (Non-African American) 5.6 ml/min
[2022-01-30] MEDS: LANTUS PER UNIT CHARGE SQ SCH (08:55)
[2022-01-30] MEDS: FLUTICASONE/VILANTEROL 100/25MCG 14 PUFFS/INHALER INH SCH (08:55)
[2022-01-30] MEDS: INSULIN ASPART PER UNIT SC SCH ×4 (08:55→21:20)
--- NOTE | 2022-01-30 09:01 | Nephrology Progress Note ---
Date of Service January 30, 2022 Assessment & Plan (1) End-stage renal disease on hemodialysis: Plan: * ESKD on IHD at [facility]. Outpatient Rx - MWF 4 hours and 15 min, Qb 400 via AVF, 2 K bath. EDW 105.5 kg. * Will provide HD today. Orders have been entered into EMR and HD RN notified (2) Diabetic infection of right foot: Plan: * s/p R 2nd metatarsal resection 01/27/22 * On Zosyn * C. Difficile toxin gene negative 01/29/22 (3) Anemia of chronic disease: Plan: * Will provide YOLETTE w/ HD Admission and Anticipated Discharge Date Admission Date: January 25, 2022 Subjective Mr. Walker was evaluated in his hospital room this morning. He reports less GI distress, less diarrhea. He voices no new medical concerns Review of Systems Constitutional: no fever Eyes: no problem reported Ear, Nose, Mouth, Throat: no problem reported Respiratory: no dyspnea Cardiovascular: no chest pain Gastrointestinal: no abdominal pain Neurologic: no problem reported Physical Exam Constitutional: not in distress Eyes: PERRL, conjunctivae normal, anicteric sclerae ENMT: external ear and nose normal, oropharynx normal Neck: trachea midline, no thyromegaly Respiratory: normal respiratory effort, lungs clear to auscultation Cardiovascular: RRR, no murmur, no edema Gastrointestinal (Abdomen): normal bowel sounds, soft, nontender, no hepatosplenomegaly Neurologic: Speech / Cognition: normal speech and normal cognition Results & Data ([facility]) Vital Signs (Past 12 Hours) Vital Signs Temp Pulse Pulse Resp BP Pulse Ox O2 Del Method 01/30/22 08:10 36.6 C 70 19 146/90 H 97 Nasal Cannula 01/30/22 01:33 70 01/29/22 22:59 36.5 C 79 18 127/74 98 Room Air O2 Flow Rate 01/30/22 08:10 4.0 01/30/22 01:33 01/29/22 22:59 Laboratory Results Laboratory Tests 01/30/22 01/30/22 07:18 07:18 WBC 8.71 Hgb 9.4 L Hct 28.8 L Plt Count 157 Creatinine 9.59 H* D Laboratory Tests 01/29/22 18:15 Stl C. diff Tox B Gene Negative Cdiff Gene PG Care Time/CCT Total # of Minutes Spent Total Time Spent with Patient: Total time spent is greater than 50% in coordination of care (as documented) at patient's floor/unit and/or counseling patient: Coding Level of Care Code 77842 Subseq Hosp Care Lvl 3 Diagnoses End-stage renal disease on hemodialysis N18.6; Z99.2 Diabetic infection of right foot E11.628; L08.9 Anemia of chronic disease D63.8
--- NOTE | 2022-01-30 10:37 | Pharmacy Report ---
Pharmacy Glycemic Short Note 2 - Date of Service January 30, 2022 - Glycemic Short BSG Results (Last 24 hours): 01/29/22 01/29/22 01/29/22 12:10 16:53 20:44 POC Glucose 140 H 118 H 144 H 01/30/22 08:01 POC Glucose 123 H OUTPATIENT ANTIDIABETIC REGIMEN: * Toujeo 33 units SQ Daily * A1c 7.6% 01/26/22 ASSESSMENT: 01/30/22: * BSGs very well-controlled yesterday, ranging 117-144 mg/dL w/ fasting BSG of 123 mg/dL this morning * Received 13 units of insulin (5 units of basal and 8 units of bolus) * Will continue yesterday's AM basal dose with possible scale this evening * Hemodialysis scheduled for today * Insulin requirements below reported outpatient ones, will 01/26/22: * 51 yo male, admitted with osteomyelitis of right foot on IV Zosyn and Daptomycin, PMH of ESRD on MWF dialysis, chronic respiratory failure on 4 L of oxygen at home, Type 2 diabetes on 33 units daily of Toujeo, HTN, AF, and pacemaker placement (1 week ago). * Patient refused HS dose of basal insulin ordered last night by admitting provider, received 1 unit of NovoLog correctional insulin, euglycemic this morning. * Patient managed on basal insulin only at home, will begin Lantus at about half of home basal dose, and use NovoLog for correctional and prandial insulin while inpatient. PLAN FOR INPATIENT GLYCEMIC CONTROL: * Basal insulin * Lantus 5 units SQ daily * Reassess in AM * Bolus insulin * NovoLog per scale ACHS or Q6hrs while NPO * Goal Range: Low 110 mg/dL - High 140 mg/dL * Correction Factor: 25 mg/dL/unit * Nutritional / Prandial insulin per carb ratio of 1 unit per 8 grams CHO consumed
--- NOTE | 2022-01-30 11:19 | Medical Student Progress Note ---
Date of Service January 30, 2022 Assessment & Plan (1) Acute osteomyelitis of right foot: (2) Elevated troponin: Plan: (1) Acute osteomyelitis of right foot: Plan: Patient is a 51-year-old male with past medical history of ESRD on Sunday dialysis, chronic hypoxemic respiratory failure secondary to restrictive lung disease and pulmonary hypertension on 4 L of oxygen at home, type 2 diabetes on 33 units daily of Toujeo, hypertension, atrial fibrillation, and pacemaker placement (see insertion 1 week ago) coming into the hospital for evaluation of a right foot infection.Patient is on Zosyn and is currently hemodynamically stable. -MRI of right foot can not be completed due to recent pacemaker placement -ESR and CRP suggestive of active osteomyelitis infection; trending down (ESR 67-> 47) (CRP 5.17-> 4.09) -Started on daptomycin daily and Zosyn every 12 hours on dialysis days, wound cultures growing pseudomonas. Surgical cultures without growth. Will d/c daptomycin and continue Zosyn. If diarrhea persists, will test for C diff -Consulted podiatry; Day 3 s/p 2nd Metatarsal Resection on right. Eliquis was restarted based on podiatry's recommendations. - Vascular surgery unable to offer surgical management as duplex US LE showed findings of peripheral vascular disease with no sonographic evidence of high- grade stenosis or focal vessel cut off through the arteries of the right or left lower extremity. -Consult PT and OT. Consider rehab placement depending on PT and OT recommendations. (2) Ulcer of extremity due to chronic venous insufficiency: Plan: See plan above (3) Elevated troponin: Plan: Elevated troponin on admission= 129, repeat 120 - Denies chest pain, ECG without ischemic changes -> likely secondary to ESRD - continue to monitor tele (4) End-stage renal disease on hemodialysis: Plan: -Sunday hemodialysis -Consult nephrology, appreciate recommendations -Avoid nephrotoxic agents (5) PAF (paroxysmal atrial fibrillation): Plan: -Continue telemetry -Restarted on Eliquis -Hold anticoagulation post operatively until tomorrow (6) Moderate pulmonary hypertension: Plan: - Stable, continue CPAP at night (7) GERD (gastroesophageal reflux disease): Plan: - Continue omeprazole (8) Restrictive lung disease secondary to obesity: Plan: - Continue CPAP at night as above -Continue Breo Ellipta, albuterol as needed, montelukast (9) Chronic diastolic heart failure: Plan: - Not currently on beta-alesia -Most recent echo on 01/08/[address] [facility] consistent of left ventricular size moderately dilated, left ventricular hypertrophy, diffuse hypokinesis, left ventricular function mild to moderately decreased, ejection fraction of 35 to 40% -Consideration to start beta-alesia, spironolactone, SGLT2 as an OP (10) Obstructive sleep apnea: Plan: - CPAP as above (11) Hyperlipidemia: Plan: - Hold statin due to possible reaction with Zosyn/Daptomycin (12) CAD (coronary artery disease): Plan: - Continue aspirin, Plavix, ranolazine (13) Diabetes mellitus type 2, uncontrolled: Plan: - Last A1c on 12/29 was 7.1; 7.6 on admission -Typically takes 33 units of Toujeo daily -Basal bolus with sliding scale and carb consistent diet while in hospital -Pharmacy glycemic consult placed, appreciate recommendations (14) Hypertension: Plan: -Continue hydralazine twice daily (15) Orthostatic hypotension: Plan: - Typically receives midodrine 3 times daily but will hold for now if he becomes hypotensive, consider restarting Disposition: Admit to PCU Diet: Carb consistent, dialysis diet DVT prophylaxis: Deirdre Fitzgerald on hold CODE STATUS: Full code Admission and Anticipated Discharge Date Admission Date: January 25, 2022 (3) Diabetic infection of right foot: (4) PAF (paroxysmal atrial fibrillation): (5) Chronic respiratory failure with hypoxia, on home O2 therapy: (6) GERD (gastroesophageal reflux disease): (7) End-stage renal disease on hemodialysis: (8) Chronic diastolic heart failure: (9) Obstructive sleep apnea: (10) Hyperlipidemia: (11) CAD (coronary artery disease): Associated angina: without angina Coronary Disease-Associated Artery/Lesion type: [place] artery [place] vs. transplanted heart: [place] heart Qualified Code(s): I25.10 - Atherosclerotic heart disease of [place] coronary artery without angina pectoris (12) Diabetes mellitus type 2, uncontrolled: Glycemic state: with hyperglycemia Qualified Code(s): E11.65 - Type 2 diabetes mellitus with hyperglycemia (13) Hypertension: Admission and Anticipated Discharge Date Admission Date: January 25, 2022 Supervising Attestation I personally examined the patient and verified all mata points of history and exam, discussed case, and agree with decision making with Joann DAVIS no pain. seen at bedside w podiatry, input appreciated vitals noted nad heent nc at mmm breathing unlabored no accessory muscles good effort foot wound seen w podiatry better described by then osteomyelitis - ongoing abx, wound care. appreciate podiatry input. otherwise as above Subjective Prior to my evaluation: Patient is a 51-year-old male with past medical history of ESRD on Sunday dialysis, chronic hypoxemic respiratory failure secondary to restrictive lung disease and pulmonary hypertension on 4 L of oxygen at home, type 2 diabetes on 33 units daily of Toujeo, hypertension, atrial fibrillation, and pacemaker placement (see insertion 1 week ago) coming into the hospital for evaluation of a right foot infection. Patient had right second toe amputation on 12/29/21. Two weeks later he reported pain and erythema after stitch removal. The patient did not receive a PICC line with IV antibiotics after surgery. Patient also had a recent hospitalization at [place] for shortness of breath resulting in a pacemaker placement. Foot x-ray findings include osteomyelitis of distal aspect of 2nd metatarsal with pathologic fracturing, additional cortical erosions of the third proximal phalynx and first DIP with proximal phalangeal pathologic fracture, and diffuse soft tissue swelling with arterial calcifications. Patient was started on Daptomycin in the ER. Patient could not get MRI due to pacemaker. Patient underwent right foot debridement surgery 01/27. Wound cultures positive for pseudomonas. Patient was taken off Daptomycin and started on Zosyn. My evaluation: Patient reports abdominal pain and diarrhea yesterday. He was given Imodium and symptoms improved. Patient states he feels well today. Patient reports numbness in his lower extremities and shortness of breath. Patient does not report chest pain, palpitations, abdominal pain, nausea, or vomiting lightheadedness, dizziness, or headache. Review of Systems Constitutional: no fever, no chills, no fatigue. Respiratory: + SOB, no cough, no wheezing. Cardiovascular: Additional Comments: no chest pain, no palpitations. Gastrointestinal: no abdominal pain, no nausea, no vomiting, no constipation, no diarrhea. Neurologic: + numbness, no tingling, no headache, no lightheadedness, no dizziness. Physical Exam Constitutional: Alert and oriented, in no acute distress. Respiratory: Lungs clear to auscultation. Breath sounds equal bilaterally. No wheezes, rales, or rhonchi. Cardiovascular: Regular rate and rhythm. No murmurs, rubs, or gallops. Capillary refill < 2. No edema. No carotid bruits. Gastrointestinal (Abdomen): Soft, nontender, nondistended. Normal bowel sounds. No guarding or rebound. No hepatosplenomegaly. Musculoskeletal: Right foot dressing clean and dry. Neurologic: Alert, oriented, no focal deficits. Results & Data ([facility]) Vital Signs (Past 12 Hours) Vital Signs Temp Pulse Pulse Pulse Resp BP BP 01/30/22 10:00 68 130/63 01/30/22 09:35 70 143/85 H 01/30/22 09:23 36.4 C L 70 01/30/22 08:10 36.6 C 70 19 146/90 H 01/30/22 01:33 70 Pulse Ox O2 Del Method O2 Flow Rate 01/30/22 10:00 01/30/22 09:35 01/30/22 09:23 01/30/22 08:10 97 Nasal Cannula 4.0 01/30/22 01:33 Laboratory Results 01/30/22 01/30/22 01/30/22 Range/Units 08:01 07:18 07:18 WBC 8.71 (4.8-10.8) K/ul RBC 3.06 L (4.63-6.08) M/uL Hgb 9.4 L (14.0-18.0) g/dl Hct 28.8 L (40.1-51.0) % MCV 94.1 (80.0-100.0) fL MCH 30.7 (25.0-34.0) pg MCHC 32.6 (32.0-36.0) g/dL RDW Std Deviation 57.5 H (36.4-46.3) fL RDW Coeff of Octavoi 17.0 H (11.5-14.5) % Plt Count 157 (130-400) K/uL MPV 10.2 (9.4-12.4) fL Absolute Nucleated RBC 0.02 H (0-0) K/uL Nucleated RBC % (auto) 0.2 % Sodium Pending Potassium Pending Chloride Pending Carbon Dioxide Pending Anion Gap Pending BUN Pending Creatinine 9.59 H* D (0.6-1.4) mg/dl Est Cr Clr Drug Dosing 10.2 ml/min Est GFR ( Amer) 6.4 ml/min Est GFR (Non-Af Amer) 5.6 ml/min BUN/Creatinine Ratio Pending Glucose Pending POC Glucose 123 H (70-99) mg/dl Calcium Pending Stl C. diff Tox B Gene (Neg) 01/29/22 01/29/22 01/29/22 Range/Units 20:44 18:15 16:53 WBC (4.8-10.8) K/ul RBC (4.63-6.08) M/uL Hgb (14.0-18.0) g/dl Hct (40.1-51.0) % MCV (80.0-100.0) fL MCH (25.0-34.0) pg MCHC (32.0-36.0) g/dL RDW Std Deviation (36.4-46.3) fL RDW Coeff of Octavio (11.5-14.5) % Plt Count (130-400) K/uL MPV (9.4-12.4) fL Absolute Nucleated RBC (0-0) K/uL Nucleated RBC % (auto) % Sodium Potassium Chloride Carbon Dioxide Anion Gap BUN Creatinine (0.6-1.4) mg/dl Est Cr Clr Drug Dosing ml/min Est GFR ( Amer) ml/min Est GFR (Non-Af Amer) ml/min BUN/Creatinine Ratio Glucose POC Glucose 144 H 118 H (70-99) mg/dl Calcium Stl C. diff Tox B Gene Negative Cdiff Gene (Neg)
[2022-01-30 14:50] LABS: BUN Creatinine Ratio 4.4 (10-20); Calcium 8.6 mg/dl (8.5-10.1); Potassium 4.4 mmol/L (3.5-5.1)
[2022-01-30] MEDS: RANOLAZINE 500 MG ER TAB PO SCH ×2 (15:17→22:13)
[2022-01-30] MEDS: ASPIRIN 81 MG ECTAB PO SCH (15:17)
[2022-01-30] MEDS: MONTELUKAST SODIUM 10 MG TABLET PO SCH (15:18)
[2022-01-30] MEDS: PANTOprazole 40 MG TAB PO SCH (15:18)
[2022-01-30] MEDS: hydrALAZINE HCL 25 MG TAB PO SCH ×2 (15:18→22:18)
[2022-01-30] MEDS: CLOPIDOGREL BISULFATE 75 MG TAB PO SCH (15:18)
[2022-01-30] MEDS: CHOLECALCIFEROL 1,000 UNITS 25 MCG TAB PO SCH (15:18)
[2022-01-30] MEDS ORDERED: LOPERAMIDE LIQUID 120 ML BOTTLE PO ONE (15:23)
--- NOTE | 2022-01-30 19:29 | Billing Data ---
Date of Service January 30, 2022 Coding Level of Care Code 51128 Subseq Hosp Care Lvl 3
--- NOTE | 2022-01-30 21:55 | Orthopedic Progress Note ---
Date of Service January 30, 2022 Assessment & Plan (1) Diabetic infection of right foot: Plan: Patient seen, evaluated, and treated. Dressing changed with out incident. Discussed attempted delayed primary closure on 01/31/22. I have discussed procedure in detail as well as postoperative recovery. All potential risks, benefits, complications, alternatives, rehab, potential for incomplete relief of symptoms, need for further surgery, DVT, PE, , persistent pain, swelling, scarring, weakness, neurovascular, wound complications and potential for amputations were discussed with patient. Unwanted outcomes such as, but not limited to were reviewed including under correction, overcorrection, return of deformity, infection. All questions were answered. Patient has decided to proceed with procedure as indicated. Patient scheduled for surgical care 01/30/22 add-on. Thank you for allowing me to participate in the care of this Patient. ' (2) Acute osteomyelitis of right foot: Admission and Anticipated Discharge Date Admission Date: January 25, 2022 Subjective Patient seen at bedside in no distress. He is status post Day#2 right foot surgery. He relates no complaints. Review of Systems Review of Systems: All systems reviewed & are unremarkable except as noted in HPI & below Physical Exam Constitutional: WD/WN, vitals as above Eyes: PERRL, conjunctivae normal, anicteric sclerae ENMT: external ear and nose normal, oropharynx normal Respiratory: normal respiratory effort Skin: There is no erythema. Lateral right foot wound. Neurologic: Absent epicritic sensation. Psychiatric: Orientation: alert and oriented x 3 Results & Data ([facility]) Vital Signs (Past 12 Hours) Vital Signs Temp Pulse Pulse Resp BP BP Pulse Ox 01/30/22 19:11 36.8 C 72 20 104/69 99 01/30/22 16:20 36.5 C 70 19 162/94 H 98 01/30/22 15:05 70 01/30/22 13:54 37.0 C 70 164/91 H 01/30/22 13:30 70 131/80 01/30/22 13:00 71 158/71 H 01/30/22 12:30 70 144/79 H 01/30/22 12:00 69 151/79 H 01/30/22 11:30 70 102/65 01/30/22 11:00 54 L 149/80 H 01/30/22 10:30 71 124/72 01/30/22 10:00 68 130/63 O2 Del Method O2 Flow Rate 01/30/22 19:11 Nasal Cannula 4.0 01/30/22 16:20 Nasal Cannula 4.0 01/30/22 15:05 01/30/22 13:54 01/30/22 13:30 01/30/22 13:00 01/30/22 12:30 01/30/22 12:00 01/30/22 11:30 01/30/22 11:00 01/30/22 10:30 01/30/22 10:00
[2022-01-30] MEDS ORDERED: LOPERAMIDE HCL 2 MG CAP PO STA (22:27)
[2022-01-30] MEDS ORDERED: Nursing to Pharmacy Communication SCH (22:45)
[2022-01-31] MEDS: PIPERACILLIN/TAZOBACTAM 4.5 GM in DEXTROSE 5% 100 ML IV SCH (05:05)
[2022-01-31 07:20] LABS: Hemoglobin 9.5 g/dl (14.0-18.0); Mean Corpuscular Hemoglobin 30.2 pg (25.0-34.0); Mean Corpuscular Hgb Conc 31.7 g/dL (32.0-36.0); Mean Corpuscular Volume 95.2 fL (80.0-100.0); Mean Platelet Volume 10.3 fL (9.4-12.4); Platelet Count 154 K/uL (130-400); RDW Coefficient of Variation 17.5 % (11.5-14.5); RDW Standard Deviation 59.9 fL (36.4-46.3); Red Blood Count 3.15 M/uL (4.63-6.08); White Blood Count 9.54 K/ul (4.8-10.8)
[2022-01-31] MEDS: INSULIN ASPART PER UNIT SC SCH ×5 (08:01→20:54)
[2022-01-31] MEDS: CLOPIDOGREL BISULFATE 75 MG TAB PO SCH (08:01)
[2022-01-31] MEDS: LANTUS PER UNIT CHARGE SQ SCH ×2 (08:01→08:04)
[2022-01-31] MEDS: RANOLAZINE 500 MG ER TAB PO SCH ×2 (08:06→20:46)
[2022-01-31] MEDS: MONTELUKAST SODIUM 10 MG TABLET PO SCH (08:06)
[2022-01-31] MEDS: ASPIRIN 81 MG ECTAB PO SCH (08:06)
--- NOTE | 2022-01-31 08:06 | Medical Student Progress Note ---
Date of Service January 31, 2022 Assessment & Plan (1) Acute osteomyelitis of right foot: (2) Elevated troponin: Plan: (1) Acute osteomyelitis of right foot: Plan: Patient is a 51-year-old male with past medical history of ESRD on Sunday dialysis, chronic hypoxemic respiratory failure secondary to restrictive lung disease and pulmonary hypertension on 4 L of oxygen at home, type 2 diabetes on 33 units daily of Toujeo, hypertension, atrial fibrillation, and pacemaker placement (see insertion 1 week ago) coming into the hospital for evaluation of a right foot infection.Patient is on Zosyn and is currently hemodynamically stable. -MRI of right foot can not be completed due to recent pacemaker placement -ESR and CRP suggestive of active osteomyelitis infection; trending down (ESR 67-> 47) (CRP 5.17-> 4.09) -Started on Zosyn every 12 hours on dialysis days, wound cultures growing pseudomonas. Surgical cultures without growth. C diff negative. Will discontinue Zosyn due to persistent diarrhea and need to transition to a nursing home PO antibiotic. Will start ciprofloxacin. -Day 4 s/p 2nd Metatarsal Resection on right. Eliquis and Plavix stopped due to wound closure today. Will restart Eliquis and Plavix depending on podiatry's recommendations. - Vascular surgery unable to offer surgical management as duplex US LE showed findings of peripheral vascular disease with no sonographic evidence of high- grade stenosis or focal vessel cut off through the arteries of the right or left lower extremity. -Consult PT and OT. Consider rehab placement depending on PT and OT recommendations. (2) Ulcer of extremity due to chronic venous insufficiency: Plan: See plan above (3) Elevated troponin: Plan: Elevated troponin on admission= 129, repeat 120 - Denies chest pain, ECG without ischemic changes -> likely secondary to ESRD - continue to monitor tele (4) End-stage renal disease on hemodialysis: Plan: -Sunday hemodialysis -Consult nephrology, appreciate recommendations -Avoid nephrotoxic agents (5) PAF (paroxysmal atrial fibrillation): Plan: -Continue telemetry -Stopped Eliquis and Plavix due to wound closure today. -Hold anticoagulation post operatively until tomorrow (6) Moderate pulmonary hypertension: Plan: - Stable, continue CPAP at night (7) GERD (gastroesophageal reflux disease): Plan: - Continue omeprazole (8) Restrictive lung disease secondary to obesity: Plan: - Continue CPAP at night as above -Continue Breo Ellipta, albuterol as needed, montelukast (9) Chronic diastolic heart failure: Plan: - Not currently on beta-alesia -Most recent echo on 01/08/2022 at [facility] consistent of left ventricular size moderately dilated, left ventricular hypertrophy, diffuse hypokinesis, left ventricular function mild to moderately decreased, ejection fraction of 35 to 40% -Consideration to start beta-[place], spironolactone, SGLT2 as an OP (10) Obstructive sleep apnea: Plan: - CPAP as above (11) Hyperlipidemia: Plan: - Hold statin due to possible reaction with Zosyn/Daptomycin (12) CAD (coronary artery disease): Plan: - Continue aspirin, Plavix, ranolazine (13) Diabetes mellitus type 2, uncontrolled: Plan: - Last A1c on 12/29 was 7.1; 7.6 on admission -Typically takes 33 units of Toujeo daily -Basal bolus with sliding scale and carb consistent diet while in hospital -Pharmacy glycemic consult placed, appreciate recommendations (14) Hypertension: Plan: -Continue hydralazine twice daily (15) Orthostatic hypotension: Plan: - Typically receives midodrine 3 times daily but will hold for now if he becomes hypotensive, consider restarting Disposition: Admit to PCU Diet: Carb consistent, dialysis diet DVT prophylaxis: Deirdre Fitzgerald on hold CODE STATUS: Full code Admission and Anticipated Discharge Date Admission Date: January 25, 2022 (3) Diabetic infection of right foot: (4) PAF (paroxysmal atrial fibrillation): (5) Chronic respiratory failure with hypoxia, on home O2 therapy: (6) GERD (gastroesophageal reflux disease): (7) End-stage renal disease on hemodialysis: (8) Chronic diastolic heart failure: (9) Obstructive sleep apnea: (10) Hyperlipidemia: (11) CAD (coronary artery disease): Associated angina: without angina Coronary Disease-Associated Artery/Lesion type: [place] artery [place] vs. transplanted heart: [place] heart Qualified Code(s): I25.10 - Atherosclerotic heart disease of [place] coronary artery without angina pectoris (12) Diabetes mellitus type 2, uncontrolled: Glycemic state: with hyperglycemia Qualified Code(s): E11.65 - Type 2 diabetes mellitus with hyperglycemia (13) Hypertension: Admission and Anticipated Discharge Date Admission Date: January 25, 2022 Supervising Attestation I personally examined the patient and verified all mata points of history and exam, discussed case, and agree with decision making with Joann Davis MS2 seen post op -sleeping but nad. 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 fairly common w zosyn. add probiotic, change to cipro otheriwse as above, anticoagulated Subjective Prior to my evaluation:Patient is a 51-year-old male with past medical history of ESRD on Sunday dialysis, chronic hypoxemic respiratory failure secondary to restrictive lung disease and pulmonary hypertension on 4 L of oxygen at home, type 2 diabetes on 33 units daily of Toujeo, hypertension, atrial fibrillation, and pacemaker placement (see insertion 1 week ago) coming into the hospital for evaluation of a right foot infection. Patient had right second toe amputation on 12/29/21. Two weeks later he reported pain and erythema after stitch removal. The patient did not receive a PICC line with IV antibiotics after surgery. Patient also had a recent hospitalization at [place] for shortness of breath resulting in a pacemaker placement. Foot x-ray findings include osteomyelitis of distal aspect of 2nd metatarsal with pathologic fracturing, additional cortical erosions of the third proximal phalynx and first DIP with proximal phalangeal pathologic fracture, and diffuse soft tissue swelling with arterial calcifications. Patient was started on Daptomycin in the ER. Patient could not get MRI due to pacemaker. Patient underwent right foot debridement surgery 01/27. Wound cultures positive for pseudomonas. Patient was taken off Daptomycin and started on Zosyn. My evaluation:Patient reports a return of abdominal pain and diarrhea beginning yesterday after dialysis treatment and continuing into the morning. Patient reports numbness in his lower extremities, shortness of breath, nausea, and cough. Patient has not vomited but reports dry heaving. Patient does not report chest pain, palpitations, lightheadedness, dizziness, or headache. Review of Systems Constitutional: no fever, no chills, no fatigue Respiratory: + SOB, + cough, no wheezing Cardiovascular: Additional Comments: no chest pain, no palpitations Gastrointestinal: + abdominal pain, +nausea, no vomiting, + diarrhea, no constipation Neurologic: + numbness, no tingling, no lightheadedness, no dizziness, no headache Physical Exam Constitutional: Alert and oriented, in no acute distress Respiratory: Lungs clear to auscultation. Breath sounds equal bilaterally. No crackles, rales, or rhonchi. Cardiovascular: Regular rate and rhythm. No murmur appreciated. Capillary refill < 2sec. No LE edema. + pacemaker. Gastrointestinal (Abdomen): Soft, nontender, and nondistended. Bowel sounds normal. No tenderness to palpation. No guarding or rebound. Negative Varner's sign. Musculoskeletal: Right foot dressed and dry. Results & Data ([facility]) Vital Signs (Past 12 Hours) Vital Signs Temp Pulse Pulse Pulse Resp BP Pulse Ox 01/31/22 07:56 36.7 C 70 18 167/91 H 98 01/31/22 04:45 36.6 C 70 18 132/77 99 01/30/22 22:15 74 01/30/22 22:52 146/90 H 01/30/22 22:13 36.5 C 71 20 99 O2 Del Method O2 Flow Rate 01/31/22 07:56 Nasal Cannula 4 01/31/22 04:45 Nasal Cannula 4 01/30/22 22:15 01/30/22 22:52 01/30/22 22:13 Nasal Cannula 4
[2022-01-31 08:07] LABS: BUN Creatinine Ratio 3.5 (10-20); Calcium 8.9 mg/dl (8.5-10.1); Creatinine Clr Calc Pharmacy 14.2 ml/min; Est GFR (African American) 9.7 ml/min; Est GFR (Non-African American) 8.3 ml/min
[2022-01-31] MEDS: PANTOprazole 40 MG TAB PO SCH (08:07)
[2022-01-31] MEDS: hydrALAZINE HCL 25 MG TAB PO SCH ×2 (08:07→20:45)
[2022-01-31] MEDS: CHOLECALCIFEROL 1,000 UNITS 25 MCG TAB PO SCH (08:07)
[2022-01-31] MEDS: FLUTICASONE/VILANTEROL 100/25MCG 14 PUFFS/INHALER INH SCH (08:07)
--- NOTE | 2022-01-31 08:57 | Nephrology Progress Note ---
Date of Service January 31, 2022 Assessment & Plan (1) End-stage renal disease on hemodialysis: Plan: * ESKD on [facility]HD at [facility]. Outpatient Rx - MWF 4 hours and 15 min, Qb 400 via AVF, 2 K bath. EDW 105.5 kg. * No acute indication for HD today. Will plan next treatment in am (2) Diabetic infection of right foot: Plan: * s/p R 2nd metatarsal resection 01/27/22 * Awaiting closure of surgical incision today * Remains on IV Zosyn (3) Anemia of chronic disease: Plan: * Will provide YOLETTE w/ HD Admission and Anticipated Discharge Date Admission Date: January 25, 2022 Subjective Mr. Walker was evaluated in his hospital room this morning. He was dialyzed yesterday for 2 L UF without complication. He reports that he is scheduled for closure of his R foot surgical incision today Review of Systems Constitutional: no fever Eyes: no problem reported Ear, Nose, Mouth, Throat: no problem reported Respiratory: no dyspnea Cardiovascular: no chest pain Gastrointestinal: no abdominal pain Neurologic: no problem reported Physical Exam Constitutional: not in distress Eyes: PERRL, conjunctivae normal, anicteric sclerae ENMT: external ear and nose normal, oropharynx normal Neck: trachea midline, no thyromegaly Respiratory: normal respiratory effort, lungs clear to auscultation Cardiovascular: RRR, no murmur, no edema Extremities: + AV fistula (+ bruit) Gastrointestinal (Abdomen): normal bowel sounds, soft, nontender, no hepatosplenomegaly Neurologic: Speech / Cognition: normal speech and normal cognition Results & Data ([facility]) Vital Signs (Past 12 Hours) Vital Signs Temp Pulse Pulse Pulse Resp BP Pulse Ox 01/31/22 08:35 70 01/31/22 08:35 01/31/22 07:56 36.7 C 70 18 167/91 H 98 01/31/22 04:45 36.6 C 70 18 132/77 99 01/30/22 22:15 74 01/30/22 22:52 146/90 H 01/30/22 22:13 36.5 C 71 20 99 O2 Del Method O2 Flow Rate 01/31/22 08:35 01/31/22 08:35 Nasal Cannula 4 01/31/22 07:56 Nasal Cannula 4 01/31/22 04:45 Nasal Cannula 4 01/30/22 22:15 01/30/22 22:52 01/30/22 22:13 Nasal Cannula 4 Laboratory Results Laboratory Tests 01/31/22 01/31/22 07:07 07:07 WBC 9.54 Hgb 9.5 L Hct 30.0 L Plt Count 154 Sodium 136 Potassium 4.0 Chloride 98 Carbon Dioxide 24 BUN 24 H Creatinine 6.86 H* D Glucose 162 H PG Care Time/CCT Total # of Minutes Spent Total Time Spent with Patient: Total time spent is greater than 50% in coordination of care (as documented) at patient's floor/unit and/or counseling patient: Coding Level of Care Code 67069 Subseq Hosp Care Lvl 3 Diagnoses End-stage renal disease on hemodialysis N18.6; Z99.2 Diabetic infection of right foot E11.628; L08.9 Anemia of chronic disease D63.8
--- NOTE | 2022-01-31 12:37 | Anesthesiology Consultation ---
Date of Service January 31, 2022 Assessment & Plan (1) Encounter for pre-operative examination: Chart Review Chart Review: Acceptable Risk for Surgery and Patient NOT seen in Pre Admission Testing Consults Requested none History Surgery Operation Date: 01/27/22 07:00 Proposed Procedures p 2nd Metatarsal Resection - Edilson Rust DPM, Operation Date: 01/31/22 08:20 Proposed Procedures p Right Foot Delayed Primary Closure - Edilson Rust DPM, MS Height/Weight Height: 5 ft 7 in Weight: 101.8 kg Allergies Allergy/AdvReac Type Severity Reaction Status Date / Time codeine Allergy Mild DELIRIUM,ME Verified 01/13/22 13:08 AN tramadol Allergy Mild nausea and Verified 01/13/22 13:08 vomiting Medications Home Medications Medication Instructions Recorded Confirmed Last Taken aspirin 81 mg chewable tablet 81 mg PO QAM 05/06/18 01/13/22 08/24/20 03:45 clopidogrel 75 mg tablet (Plavix) 75 mg PO QAM 04/05/19 01/13/22 08/24/20 03:45 albuterol sulfate 90 mcg/actuation 2 puffs inhalation Q6H PRN 07/02/19 01/13/22 01/31/20 aerosol inhaler (Ventolin HFA) Shortness Of Breath Or Wheezing #18 grams atorvastatin 40 mg tablet 40 mg PO HS 09/04/19 01/13/22 08/23/20 18:30 fluticasone furoate 100 1 ea inhalation DAILY #1 ea 01/30/20 01/13/22 08/24/20 03:45 mcg-vilanterol 25 mcg/dose inhalation powder (Breo Ellipta) blood sugar diagnostic #50 ea 12/07/20 01/13/22 Unknown miscellaneous medical supply 1 ea miscellaneous DAILY #1 ea 03/08/21 01/13/22 Unknown pen needle, diabetic 31 gauge x #100 ea 03/11/21 01/13/22 Unknown 3/16" (Easy Comfort Pen [place]) insulin glargine U-300 conc 300 33 unit (0.11 mL) subcut QAM #4.5 11/14/21 01/13/22 Unknown unit/mL (1.5 mL) subcutaneous pen mL (Toujeo SoloStar U-300 Insulin) acetaminophen 500 mg capsule 1,000 mg PO TID PRN Pain #180 caps 11/21/21 01/13/22 Unknown cholecalciferol (vitamin D3) 25 25 mcg PO DAILY #90 caps 11/21/21 01/13/22 Unknown mcg (1,000 unit) capsule blood sugar diagnostic (OneTouch #50 ea 12/20/21 01/13/22 Unknown Ultra Test strips) hydralazine 25 mg tablet 25 mg PO BID #60 tabs 01/03/22 01/13/22 Unknown apixaban 5 mg tablet (Eliquis) 5 mg PO BID #60 tabs 01/11/22 01/13/22 Unknown omeprazole 40 mg capsule,delayed 40 mg PO DAILY #30 caps 01/11/22 01/13/22 Unknown release midodrine 5 mg tablet 5 mg PO TID 01/13/22 01/13/22 Unknown ranolazine 500 mg tablet,extended 500 mg PO QAM 01/13/22 01/13/22 Unknown release,12 hr amiodarone 200 mg tablet mg PO QAM 01/25/22 Unknown montelukast 10 mg tablet 10 mg PO HS 01/25/22 Unknown Active Medications Generic Name Dose Route Start Last Admin Trade Name Freq PRN Reason Stop Dose Admin Aspirin 81 mg 01/26/22 09:00 01/31/22 08:06 Aspirin 81 Mg Ectab PO 02/25/22 08:59 Not Given QAM VICKY Clopidogrel Bisulfate 75 mg 01/26/22 09:00 01/31/22 08:01 Clopidogrel Bisulfate 75 Mg Tab PO 02/25/22 08:59 Not Given QAM VICKY Fluticasone/Vilanterol 1 puffs 01/26/22 09:00 01/31/22 08:07 Fluticasone/Vilanterol 100/25mcg 14 Puffs/Inhaler INH 02/25/22 08:59 1 puffs DAILY VICKY Administration Hydralazine HCl 25 mg 01/26/22 09:00 01/31/22 08:07 Hydralazine Hcl 25 Mg Tab PO 02/25/22 08:59 25 mg BID VICKY Administration Piperacillin Sod/Tazobactam 120 mls @ 30 mls/hr 01/26/22 04:00 01/31/22 09:05 Sod 4.5 gm/ Dextrose IV 03/09/22 03:59 Infused Q12H VICKY Infusion Protocol Insulin Aspart 0 units 01/25/22 21:00 01/31/22 11:55 Insulin Aspart Per Unit SC 02/24/22 20:59 Not Given ACHS [facility] Insulin Glargine 5 units 01/29/22 09:00 01/31/22 08:04 Lantus Per Unit Charge SQ 02/28/22 08:59 Not Given DAILY [facility] Protocol Montelukast Sodium 10 mg 01/26/22 09:00 01/31/22 08:06 Montelukast Sodium 10 Mg Tablet PO 02/25/22 08:59 10 mg QAM VICKY Administration Ondansetron HCl 4 mg 01/25/22 20:54 01/29/22 20:52 Ondansetron Inj 2 Mg/Ml 2 Ml Vial IV 02/24/22 20:53 4 mg Q6H PRN Administration Nausea Pantoprazole Sodium 40 mg 01/26/22 09:00 01/31/22 08:07 Pantoprazole 40 Mg Tab PO 02/25/22 08:59 40 mg DAILY VICKY Administration Ranolazine 500 mg 01/25/22 21:00 01/31/22 08:06 Ranolazine 500 Mg Er Tab PO 02/24/22 20:59 500 mg Q12H VICKY Administration Vitamin D 1,000 units 01/26/22 09:00 01/31/22 08:07 Cholecalciferol 1,000 Units 25 Mcg Tab PO 02/25/22 08:59 1,000 units DAILY VICKY Administration NPO Date Last Intake of Fluids: 01/30/22 Time Last Intake of Fluids: 20:00 Last Intake of Fluids Comment: sips of water this am with medications Date Last Intake of Solids: 01/30/22 Time Last Intake of Solids: 19:00 Past Medical History Medical History Acute on chronic diastolic CHF (congestive heart failure) Anemia of chronic disease Arthritis CAD (coronary artery disease) 08/2015- L Cx stent; 11/2017- RCA stent, L Cx stent patent; 07/2019- LM wnl, prox-mid LAD 30%, mid-L Cx stent patent, RCA stent stent with area between stents 30-40%. Sees [facility], Dr Sharad Norton. 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) Repaired s/p PPV, MP, EL (SNT) Diverticular disease Elevated troponin End-stage renal disease on hemodialysis ESRD (end stage renal disease) on dialysis dialysis sun-sun-sun is getting dialysis sat prior to colonoscopy 09/29/2019 and will have it again after on sunday09/30/2019 History of COVID-19 (12/2020) Hyperkalemia Hyperlipidemia Hypertension Moderate pulmonary hypertension Nuclear sclerosis of both eyes Obstructive sleep apnea cpap on 4L N/C On home oxygen therapy 4L N/C at all times Osteoarthritis, hip, bilateral Pleural effusion, bilateral 11/2018 Pneumonia Presence of arteriovenous fistula for hemodialysis left forearm Secondary pulmonary hypertension Status post placement of implantable loop recorder (07/07/21) Syncope Vitreous hemorrhage of right eye due to diabetes mellitus (12/04/18) Past Family History Family History Mother Diabetes Coronary heart disease Heart disease Hypertension Stroke Father Diabetes Coronary heart disease Heart disease Myocardial infarction Hypertension Stroke Other Kidney disease No family history of adverse response to anesthesia Denies family history of Ovarian cancer Prostate cancer Breast cancer Lung cancer Colorectal cancer Past Surgical History Surgical History History of cardiac cath X 2 - 11/2017 - [facility] - SOB - 1 stent placed - follows w/ Dr. Zuniga - 2015 - [facility] - SOB - 1 stent placed History of cardioversion (01/18/22) for afib History of colonoscopy History of foot surgery left x 4 History of heart artery stent X2 History of placement of chest tube left lung for pleural effusion 11/2018 History of tooth extraction all teeth S/P arteriovenous (AV) fistula creation 04/2016 Dr. Mena placed S/P bilateral cataract extraction (05/2021) S/P cardiac catheterization Dr. Sharad Calvillo at [facility]- 01/09/22 Social History Smoking Status: Former smoker tobacco type: cigars Do You Dip or Chew Tobacco: No Hx Alcohol Use: No Hx Substance Use: No substance use type: does not use Physical Exam Vital Signs Last Vital Signs Temp 36.6 C 01/31/22 12:18 Pulse 70 01/31/22 12:18 Resp 20 01/31/22 12:18 BP 162/88 H 01/31/22 12:18 Pulse Ox 100 01/31/22 12:18 O2 Del Method 01/31/22 12:18 O2 Flow Rate 2 01/31/22 12:18 Testing Laboratory Results 01/31/22 07:07 01/31/22 07:07 PT 12.9 Seconds (9.0-12.0) H 01/25/22 16:36 INR 1.2 (0.9-1.1) H 01/25/22 16:36 APTT 35.9 Seconds (21.0-31.0) H 01/25/22 16:36 Hemoglobin A1c 7.6 % (4.5-5.6) H 01/26/22 04:06 01/27/22 Unknown Gram Stain - Final Toe,Right Second Aerobic and Anaerobic Culture - Preliminary No growth to date. 01/25/22 18:25 Aerobic Blood Culture - Final Blood No growth in Aerobic bottle after 5 days. Anaerobic Blood Culture - Final No growth in Anaerobic bottle after 5 days. 01/25/22 16:36 Aerobic Blood Culture - Final Blood No growth in Aerobic bottle after 5 days. Anaerobic Blood Culture - Final No growth in Anaerobic bottle after 5 days. 01/25/22 19:21 Gram Stain - Final Foot,Right Wound Culture - Final Pseudomonas aeruginosa 01/31/22 01/31/22 11:44 07:41 POC Glucose 172 H 157 H Electrocardiogram Date: 01/25/22 DICTATED BY:Robert Simpson MD Test Reason : Blood Pressure : / mmHG Vent. Rate : 070 BPM Atrial Rate : 069 BPM P-R Int : 000 ms QRS Dur : 170 ms QT Int : 504 ms P-R-T Axes : 000 145 -23 degrees QTc Int : 544 ms Ventricular-paced rhythm Biventricular pacemaker detected Abnormal ECG When compared with ECG of 07-APR-2021 09:00, Electronic ventricular pacemaker has replaced Sinus rhythm Confirmed by Robert Simpson ([id number]) on 01/26/2022 7:01:42 PM Chest X-Ray Date: 01/25/22 XR chest 1V portable HISTORY: 51 years-old Male Sepsis acute sepsis COMPARISON: Chest radiograph and CTA chest at least 04/07/2021 TECHNIQUE: AP view of the chest FINDINGS: Cardiac silhouette is enlarged. Right pectoral pacer. No pneumothorax, pleural effusion, airspace consolidation or overt pulmonary edema. Mild pulmonary vascular congestion. Degenerative changes of the shoulders and spine. IMPRESSION: Cardiomegaly with pulmonary vascular congestion. Echocardiogram Date: 01/18/22 LV is normal in size. Segmental LV function is normal. Overall left ventricular function is mild to moderately decreased. EF is 35-40% RV size is normal. RV function is mildly decreased. LA size is mildly enlarged.
[2022-01-31] MEDS ORDERED: fentaNYL citrate 100 MCG/2 ML VIAL IV PRN ×2 (12:39→13:18)
[2022-01-31] MEDS ORDERED: ONDANSETRON INJ 2 MG/ML 2 ML VIAL IV PRN ×2 (12:39→13:18)
[2022-01-31] MEDS ORDERED: ATROPINE SULFATE 0.1 MG/ML 10ML SYR IV PRN ×2 (12:39→13:18)
[2022-01-31] MEDS ORDERED: ePHEDrine sulfate 50 MG/ML AMP IV PRN ×2 (12:39→13:18)
[2022-01-31] MEDS ORDERED: fentaNYL citrate 100 MCG/2 ML VIAL ONE (12:52)
[2022-01-31] MEDS ORDERED: PROPOFOL IV EMULSION 10 MG/ML 20 ML VIAL IV ONE (12:52)
[2022-01-31] MEDS ORDERED: LIDOCAINE 2% MPF LOCAL 5 ML VIAL INFIL ONE (12:52)
[2022-01-31] MEDS ORDERED: MIDAZOLAM HCL 1 MG/ML 2ML VIAL ONE (12:52)
[2022-01-31] MEDS ORDERED: BUPIVACAINE 0.5 % 5 MG/1 ML MPF 30ML VIAL ONE (13:28)
--- NOTE | 2022-01-31 13:55 | History & Physical Bridge Note ---
Date of Service January 31, 2022 History & Physical Bridge Note I have examined the patient, reviewed the History & Physical and in the interval since the performance of the History & Physical I have noted the following changes of clinical significance: no changes noted
--- NOTE | 2022-01-31 15:12 | Post Operative Brief Note ---
Immediate Post Op Note v1 Date of Surgery January 31, 2022 Pre & Post Diagnosis Operation Date: 01/27/22 07:00 Pre-Op Diagnosis: FOOT ULCER, GANGRENE Post-Op Diagnosis: FOOT ULCER, GANGRENE Operation Date: 01/31/22 08:20 Pre-Op Diagnosis: Right Foot Wound Post-Op Diagnosis: Right Foot Wound I identified the patient and participated in the time-out.: Yes Procedure Operation Date: 01/27/22 07:00 Actual Procedures p 2nd Metatarsal Resection(Right) - Edilson Rust DPM, MS Operation Date: 01/31/22 08:20 Actual Procedures p Right Foot Delayed Primary Closure(Right) - Edilson Rust DPM, MS Surgeon Edilson Rust DPM, MS Surgical Coder None Estimated Blood Loss 10 Findings Consistent with Post-Op Diagnosis non healing wound
--- NOTE | 2022-01-31 16:07 | Anesthesiology Progress Note ---
Date of Service January 31, 2022 Anesthesia Post Procedure Vital Signs Vital Signs: Temp Pulse Pulse Pulse Resp BP Pulse Ox 01/31/22 15:50 36.5 C 70 16 136/76 97 01/31/22 15:40 83 16 131/76 96 01/31/22 15:30 70 18 129/76 97 01/31/22 15:21 36.0 C L 75 16 125/71 97 01/31/22 12:18 36.6 C 70 20 162/88 H 100 01/31/22 12:08 36.4 C L 78 20 160/85 H 98 01/31/22 08:35 70 01/31/22 08:35 01/31/22 07:56 36.7 C 70 18 167/91 H 98 01/31/22 04:45 36.6 C 70 18 132/77 99 01/30/22 22:15 74 01/30/22 20:00 01/30/22 22:52 146/90 H 01/30/22 22:13 36.5 C 71 20 99 01/30/22 19:11 36.8 C 72 20 104/69 99 01/30/22 16:20 36.5 C 70 19 162/94 H 98 O2 Del Method O2 Flow Rate 01/31/22 15:50 Room Air 4 01/31/22 15:40 Oxymask 4 01/31/22 15:30 Oxymask 6 01/31/22 15:21 Oxymask 6 01/31/22 12:18 Nasal Cannula 2 01/31/22 12:08 Nasal Cannula 4 01/31/22 08:35 01/31/22 08:35 Nasal Cannula 4 01/31/22 07:56 Nasal Cannula 4 01/31/22 04:45 Nasal Cannula 4 01/30/22 22:15 01/30/22 20:00 Nasal Cannula 4 01/30/22 22:52 01/30/22 22:13 Nasal Cannula 4 01/30/22 19:11 Nasal Cannula 4.0 01/30/22 16:20 Nasal Cannula 4.0 Transfer of Care Handoff Completed per policy Notes Mental Status: alert / awake / arousable and participated in evaluation Patient Amnestic to Procedure: Yes Nausea / Vomiting: adequately controlled Pain: adequately controlled Airway Patency, RR, SpO2: stable & adequate BP & HR: stable & adequate Hydration State: stable & adequate Anesthetic Complications: no major complications apparent and Pt Satisfied with anesthetic care
[2022-01-31] MEDS: ADVANCED PROBIOTIC 1250 MG CAPSULE PO SCH (16:09)
--- NOTE | 2022-01-31 19:44 | Billing Data ---
Date of Service January 31, 2022 Coding Level of Care Code 12141 Subseq Hosp Care Lvl 2
[2022-01-31] MEDS: CIPROFLOXACIN 500 MG TAB PO SCH (20:45)
[2022-01-31] MEDS: APIXABAN 5 MG TABLET PO SCH (20:46)
[2022-02-01 06:26] LABS: Hematocrit (blood only) 31.2 % (40.1-51.0); Mean Corpuscular Hemoglobin 31.1 pg (25.0-34.0); Mean Corpuscular Hgb Conc 32.1 g/dL (32.0-36.0); Mean Corpuscular Volume 96.9 fL (80.0-100.0); Mean Platelet Volume 10.7 fL (9.4-12.4); Platelet Count 149 K/uL (130-400); RDW Coefficient of Variation 17.4 % (11.5-14.5); RDW Standard Deviation 61.1 fL (36.4-46.3); Red Blood Count 3.22 M/uL (4.63-6.08); White Blood Count 9.53 K/ul (4.8-10.8)
[2022-02-01 07:00] LABS: BUN Creatinine Ratio 3.9 (10-20); Calcium 9.1 mg/dl (8.5-10.1); Creatinine Clr Calc Pharmacy 11.6 ml/min; Est GFR (African American) 7.4 ml/min; Est GFR (Non-African American) 6.4 ml/min; Potassium 4.4 mmol/L (3.5-5.1)
[2022-02-01] MEDS ORDERED: SODIUM CHLORIDE 0.9% 1000ML 1,000 ML IV PRN (07:00)
[2022-02-01] MEDS ORDERED: EPOETIN ALFA 10,000 UNITS/ML VIAL IV ONE (07:00)
--- NOTE | 2022-02-01 07:41 | Operative Report ---
Post Operative Report Pre & Post Diagnosis Operation Date: 01/27/22 07:00 Pre-Op Diagnosis: FOOT ULCER, GANGRENE Post-Op Diagnosis: FOOT ULCER, GANGRENE Operation Date: 01/31/22 08:20 Pre-Op Diagnosis: Right Foot Wound Post-Op Diagnosis: Right Foot Wound I identified the patient and participated in the time-out.: Yes Procedure Operation Date: 01/27/22 07:00 Actual Procedures p 2nd Metatarsal Resection(Right) - Edilson Rust DPM, MS Operation Date: 01/31/22 08:20 Actual Procedures p Right Foot Delayed Primary Closure(Right) - Edilson Rust DPM, MS Surgeon Edilson Rust DPM, MS Landscape Nurseryman None Estimated Blood Loss 10 Findings Consistent with Post-Op Diagnosis None Specimens None Description of Procedure History of present illness: Patient is a diabetic, 51 year old male who is seen for delayed primary closure. Patient recently had right fifth ray resected due to gangrene. Due to infection wound will be left open to drain. Soft tissue has no demarcated. All questions answered. Discussed procedure in detail and postoperative recovery. All potential risks, benefits, complications, alternatives, rehab, potential for incomplete relief of symptoms, need for further surgery, DVT, PE, , persistent pain, swelling, scarring, weakness, neurovascular, wound complications and potential for amputations were discussed with patient. Unwanted outcomes such as, but not limited to were reviewed including under correction, overcorrection, return of deformity, infection. All questions were answered. Patient has decided to proceed with procedure as indicated. Preoperative diagnosis: 1.) Diabetic foot wound right Postoperative diagnosis: same Name of operation: 1.) Secondary closure of surgical wound extensive Surgeon: Dr. Rust Landscape Nurseryman: None Anesthesia: Monitored anesthesia care Hemostasis: pneumatic ankle tourniquet Estimated blood loss: minimal Procedure in detail: Under mild sedation the patient was brought in the operating room placed on the operating table in supine position. A pneumatic calf tourniquet was then placed about the patient's right calf. Following IV sedation the foot was prepped scrubbed and draped in usual aseptic manner. An Esmarch bandage was utilized to exsanguinate the patient's right foot and the pneumatic ankle tourniquet was then inflated. Attention was then directed to the lateral foot. The fifth ray has been resected including the majority of the fifth metatarsal. The wound measures 9cm x 3cm x 2.5 cm. The wound bed shows 30% necrotic or non viable tissue well demarcated. Utilizing a sharp, sterile, #15 blade the wound is voided of non viable soft tissue. Excision debridement is carried down to and including muscle and tendon to achieve a healthy wound bed. 1 L of lactated Ringer was then irrigated with low flow into the wound. The tourniquet is then deflated and hemostasis of the wound is acquired. At this time wound is closed in layers. Vertical mattress sutures are applied distal to wound as retention sutures utilizing 2-0 nylon. More proximal to wound edges vertical mattress sutures are applied. Finally wound edges are re- approximated using 3-0 nylon with simple suture technique. Upon completion of the procedure the lateral wound was dressed with sterile dressing consisting of 4 x 4's Cole Kerlix ABD. The Patient tolerated the procedure and anesthesia well. He was transferred to recovery room vital signs stable and vascular status intact all toes of the right foot following. Following a period of postoperative monitoring the patient will be readmitted to floor with the continuation of all preoperative orders. I attest to the content of the Intraoperative Record and any orders documented therein. Any exceptions are noted below.
--- NOTE | 2022-02-01 07:49 | Hospitalist Progress Note ---
Date of Service February 01, 2022 Assessment & Plan (1) Acute osteomyelitis of right foot: Plan: Acute osteomyelitis of right foot -MRI of right foot can not be completed due to recent pacemaker placement -ESR and CRP suggestive of active osteomyelitis infection -Started on Zosyn and daptomycin-> transitioned to ciprofloxacin based on renal dosing-> wound culture growing pseudomonas, surgical cultures without growth - Had GI upset with Zosyn, c diff negative, has resolved since switching antibiotics -s/p 2nd Metatarsal Resection on right on 01/27 and closure of wound on 01/31 with podiatry - Vascular surgery unable to offer surgical management as duplex US LE showed findings of peripheral vascular disease with no sonographic evidence of high- grade stenosis or focal vessel cut off through the arteries of the right or left lower extremity. -Consult PT and OT. Consider rehab placement depending on PT and OT recommendations. Ulcer of extremity due to chronic venous insufficiency: See plan above Elevated troponin: Elevated troponin on admission= 129, repeat 120 - Denies chest pain, ECG without ischemic changes -> likely secondary to ESRD - continue to monitor tele End-stage renal disease on hemodialysis: -Sunday hemodialysis -Consult nephrology, appreciate recommendations -Avoid nephrotoxic agents PAF (paroxysmal atrial fibrillation): -Continue telemetry -Restart Eliquis today post operatively - Amiodarone held on admission, looking back on cariology notes, should remain on amiodarone-> will restart Moderate pulmonary hypertension: - Stable, continue CPAP at night GERD (gastroesophageal reflux disease): - Continue omeprazole Restrictive lung disease secondary to obesity: - Continue CPAP at night as above -Continue Breo Ellipta, albuterol as needed, montelukast Chronic diastolic heart failure: - Not currently on beta-[place] -Most recent echo on 01/08/2022 at [facility] consistent of left ventricular size moderately dilated, left ventricular hypertrophy, diffuse hypokinesis, left ventricular function mild to moderately decreased, ejection fraction of 35 to 40% -Consideration to start beta-[place], spironolactone, SGLT2 as an OP Obstructive sleep apnea: - CPAP as above Hyperlipidemia: - Continue statin CAD (coronary artery disease): - Continue aspirin, Plavix, ranolazine Diabetes mellitus type 2, uncontrolled: - Last A1c on 12/29 was 7.1; 7.6 on admission -Typically takes 33 units of Toujeo daily -Basal bolus with sliding scale and carb consistent diet while in hospital -Pharmacy glycemic consult placed, appreciate recommendations Hypertension: -Continue hydralazine twice daily Orthostatic hypotension: - Typically receives midodrine 3 times daily but will hold for now if he becomes hypotensive, consider restarting (2) Ulcer of extremity due to chronic venous insufficiency: (3) Elevated troponin: (4) End-stage renal disease on hemodialysis: (5) PAF (paroxysmal atrial fibrillation): (6) Moderate pulmonary hypertension: (7) GERD (gastroesophageal reflux disease): (8) Restrictive lung disease secondary to obesity: (9) Chronic diastolic heart failure: (10) Obstructive sleep apnea: (11) Hyperlipidemia: (12) CAD (coronary artery disease): (13) Diabetes mellitus type 2, uncontrolled: (14) Hypertension: (15) Orthostatic hypotension: Admission and Anticipated Discharge Date Admission Date: January 25, 2022 Supervising Physician Co-Signing Physician Notes I personally examined the patient and verified all amta points of history and exam, discussed case, and agree with decision making with Dr. Watkins seen at dialysis. Feeling pretty good. With change of antibiotics his diarrhea has essentially resolved. He is tolerating the Cipro well. Agrees with rehab, notes he is going to be nonweightbearing for a while. Vitals noted, in general he is awake and alert pleasant no distress. HEENT normocephalic atraumatic mucous membranes moist. Breathing unlabored no accessory muscle use good effort. Skin shows no rashes no pallor or icterus. Foot dressed. No tracking erythema. 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 fairly common w zosyn. added probiotic, changed to ciprodiarrhea improved otherwise as above, anticoagulated, goal for rehab placement once available. Subjective Pt states he is dong well this morning. Diarrhea and abdominal pain have significantly improved. Denies chest pain, dyspnea. Appetite is good. Review of Systems Review of Systems: As per HPI Physical Exam Physical Exam: Constitutional: well-appearing, no acute distress HEENT: NCAT, no conjunctival injection CV: regular rhythm, no murmur appreciated, extremities well-perfused, no LE edema, + pacemaker Resp: CTABL, no wheezes/rales/rhonchi appreciated, no increased work of breathing GI: soft, nondistended, nontender, BS normoactive MSK: no gross deformities appreciated, dressing on right foot clean and dry Skin: warm, dry, no rash appreciated Neuro: alert, oriented, no focal neurologic deficit appreciated Results & Data Results & Data ([facility]) Vital Signs (Past 12 Hours) Vital Signs Temp Pulse Pulse Resp BP Pulse Ox O2 Del Method 01/31/22 22:10 76 02/01/22 03:41 36.4 C L 64 18 113/68 98 Nasal Cannula 01/31/22 23:34 36.5 C 69 18 125/71 99 Nasal Cannula 01/31/22 20:50 Nasal Cannula 01/31/22 19:50 36.4 C L 70 18 131/75 99 Nasal Cannula O2 Flow Rate 01/31/22 22:10 02/01/22 03:41 4 01/31/22 23:34 4 01/31/22 20:50 4 01/31/22 19:50 4 Resident Activity Tracking Resident Involvement: Resident Care Provided Care Provided: Adult Hospital Medicine (1) CAD (coronary artery disease) Associated angina: without angina Coronary Disease-Associated Artery/Lesion type: [place] artery [place] vs. transplanted heart: [place] heart Qualified Code(s): I25.10 - Atherosclerotic heart disease of [place] coronary artery without angina pectoris (2) Diabetes mellitus type 2, uncontrolled Glycemic state: with hyperglycemia Qualified Code(s): E11.65 - Type 2 diabetes mellitus with hyperglycemia
[2022-02-01] MEDS: RANOLAZINE 500 MG ER TAB PO SCH ×2 (07:52→22:22)
[2022-02-01] MEDS: CHOLECALCIFEROL 1,000 UNITS 25 MCG TAB PO SCH (07:52)
[2022-02-01] MEDS: MONTELUKAST SODIUM 10 MG TABLET PO SCH (07:52)
[2022-02-01] MEDS: CLOPIDOGREL BISULFATE 75 MG TAB PO SCH (07:52)
[2022-02-01] MEDS: ADVANCED PROBIOTIC 1250 MG CAPSULE PO SCH (07:52)
[2022-02-01] MEDS: ASPIRIN 81 MG ECTAB PO SCH (07:52)
[2022-02-01] MEDS: APIXABAN 5 MG TABLET PO SCH ×2 (07:52→22:22)
[2022-02-01] MEDS: FLUTICASONE/VILANTEROL 100/25MCG 14 PUFFS/INHALER INH SCH (07:52)
[2022-02-01] MEDS: PANTOprazole 40 MG TAB PO SCH (07:52)
[2022-02-01] MEDS: hydrALAZINE HCL 25 MG TAB PO SCH ×2 (07:53→22:22)
[2022-02-01] MEDS: LANTUS PER UNIT CHARGE SQ SCH (08:22)
[2022-02-01] MEDS: INSULIN ASPART PER UNIT SC SCH ×4 (08:22→23:26)
--- NOTE | 2022-02-01 09:10 | Nephrology Progress Note ---
Date of Service February 01, 2022 Assessment & Plan (1) End-stage renal disease on hemodialysis: Plan: * ESKD on IHD at [facility]. Outpatient Rx - MWF 4 hours and 15 min, Qb 400 via AVF, 2 K bath. EDW 105.5 kg. * Will provide HD today. Orders have been entered into EMR and HD RN notified (2) Diabetic infection of right foot: Plan: * s/p R 2nd metatarsal resection 01/27/22 * Closure of surgical incision 01/31/22 * On oral Cipro (3) Anemia of chronic disease: Plan: * Will provide YOLETTE w/ HD Admission and Anticipated Discharge Date Admission Date: January 25, 2022 Subjective Mr. Walker was evaluated in his hospital room this morning. He underwent closure of his surgical incision yesterday. He reports GI upset improved off Zosyn therapy Review of Systems Constitutional: no fever Eyes: no problem reported Ear, Nose, Mouth, Throat: no problem reported Respiratory: no dyspnea Cardiovascular: no chest pain Gastrointestinal: no abdominal pain Neurologic: no problem reported Physical Exam Constitutional: not in distress Eyes: PERRL, conjunctivae normal, anicteric sclerae ENMT: external ear and nose normal, oropharynx normal Neck: trachea midline, no thyromegaly Respiratory: normal respiratory effort, lungs clear to auscultation Cardiovascular: RRR, no murmur, no edema Extremities: + AV fistula (+ bruit) Gastrointestinal (Abdomen): normal bowel sounds, soft, nontender, no hepatosplenomegaly Neurologic: Speech / Cognition: normal speech and normal cognition Results & Data ([facility]) Vital Signs (Past 12 Hours) Vital Signs Temp Pulse Pulse Resp BP Pulse Ox O2 Del Method 02/01/22 08:50 70 02/01/22 08:00 Nasal Cannula 01/31/22 22:10 76 02/01/22 03:41 36.4 C L 64 18 113/68 98 Nasal Cannula 01/31/22 23:34 36.5 C 69 18 125/71 99 Nasal Cannula O2 Flow Rate 02/01/22 08:50 02/01/22 08:00 4 01/31/22 22:10 02/01/22 03:41 4 01/31/22 23:34 4 Laboratory Results Laboratory Tests 02/01/22 02/01/22 06:09 06:09 WBC 9.53 Hgb 10.0 L Hct 31.2 L Plt Count 149 Sodium 135 L Potassium 4.4 Chloride 98 Carbon Dioxide 20 L BUN 33 H Creatinine 8.52 H* D Glucose 126 H PG Care Time/CCT Total # of Minutes Spent Total Time Spent with Patient: Total time spent is greater than 50% in coordination of care (as documented) at patient's floor/unit and/or counseling patient: Coding Level of Care Code 16658 Subseq Hosp Care Lvl 3 Diagnoses End-stage renal disease on hemodialysis N18.6; Z99.2 Diabetic infection of right foot E11.628; L08.9 Anemia of chronic disease D63.8
--- NOTE | 2022-02-01 11:55 | Pharmacy Report ---
Pharmacy Glycemic Short Note 2 - Date of Service February 01, 2022 - Glycemic Short BSG Results (Last 24 hours): 01/31/22 01/31/22 01/31/22 15:22 16:40 20:49 Glucose POC Glucose 184 H 185 H 178 H 02/01/22 02/01/22 06:09 07:51 Glucose 126 H POC Glucose 163 H OUTPATIENT ANTIDIABETIC REGIMEN: * Toujeo 33 units SQ Daily * A1c 7.6% (01/26/22) -- unreliable in the setting of ESRD on HD ASSESSMENT: 02/01/22: * Pt was NPO yesterday for procedure in the OR. He declined receiving any basal/bolus insulin during the time in which he was NPO. BSGs remained fairly stable. * Pt is scheduled to receive HD today. * No changes required at this time. Will continue to follow. 01/30 * BSGs very well-controlled yesterday, ranging 117-144 mg/dL w/ fasting BSG of 123 mg/dL this morning * Received 13 units of insulin (5 units of basal and 8 units of bolus) * Will continue yesterday's AM basal dose with possible scale this evening * Hemodialysis scheduled for today * Insulin requirements below reported outpatient ones, will 01/26 * 51 yo male, admitted with osteomyelitis of right foot on IV Zosyn and Daptomycin, PMH of ESRD on MWF dialysis, chronic respiratory failure on 4 L of oxygen at home, Type 2 diabetes on 33 units daily of Toujeo, HTN, AF, and pacemaker placement (1 week ago). * Patient refused HS dose of basal insulin ordered last night by admitting provider, received 1 unit of NovoLog correctional insulin, euglycemic this morning. * Patient managed on basal insulin only at home, will begin Lantus at about half of home basal dose, and use NovoLog for correctional and prandial insulin while inpatient. PLAN FOR INPATIENT GLYCEMIC CONTROL: * Basal insulin * Lantus 5 units SQ daily * Bolus insulin * NovoLog per scale ACHS or Q6hrs while NPO * Goal Range: Low 110 mg/dL - High 140 mg/dL * Correction Factor: 25 mg/dL/unit * Nutritional / Prandial insulin per carb ratio of 1 unit per 8 grams CHO consumed
--- NOTE | 2022-02-01 16:21 | Electrocardiogram Report ---
Test Reason : Blood Pressure : / mmHG Vent. Rate : 070 BPM Atrial Rate : 250 BPM P-R Int : 000 ms QRS Dur : 178 ms QT Int : 482 ms P-R-T Axes : 000 099 -12 degrees QTc Int : 520 ms Ventricular-paced rhythm Biventricular pacemaker detected Abnormal ECG When compared with ECG of 25-JAN-2022 16:15, No significant change was found Confirmed by Matty Park ([id number]) on 02/01/2022 4:21:16 PM Referred By: Francisco Ngo Confirmed By:Matty Park
--- NOTE | 2022-02-01 18:17 | Billing Data ---
Date of Service February 01, 2022 Coding Level of Care Code 87127 Subseq Hosp Care Lvl 3
[2022-02-01] MEDS: ATORVASTATIN 40 MG TAB PO SCH (22:22)
[2022-02-01] MEDS: CIPROFLOXACIN 500 MG TAB PO SCH (22:22)
[2022-02-02 06:58] LABS: Basophils # (auto) 0.09 K/uL (0-0.2); Eosinophils # (auto) 0.08 K/uL (0-0.50); Eosinophils % (auto) 0.9 %; Hematocrit (blood only) 31.6 % (40.1-51.0); Hemoglobin 10.2 g/dl (14.0-18.0); Immature Granulocytes # (auto) 0.04 K/uL (0.00-0.02); Immature Granulocytes % (auto) 0.4 %; Lymphocytes # (auto) 0.86 K/uL (1.2-3.4); Lymphocytes % (auto) 9.4 %; Mean Corpuscular Hemoglobin 30.8 pg (25.0-34.0); Mean Corpuscular Hgb Conc 32.3 g/dL (32.0-36.0); Mean Corpuscular Volume 95.5 fL (80.0-100.0); Mean Platelet Volume 10.9 fL (9.4-12.4); Monocytes # (auto) 0.98 K/uL (0.24-0.82); Monocytes % (auto) 10.7 %; Neutrophils # (auto) 7.09 K/uL (1.4-6.5); Neutrophils % (auto) 77.6 %; Platelet Count 172 K/uL (130-400); RDW Coefficient of Variation 17.3 % (11.5-14.5); RDW Standard Deviation 59.8 fL (36.4-46.3); Red Blood Count 3.31 M/uL (4.63-6.08); White Blood Count 9.14 K/ul (4.8-10.8)
[2022-02-02 07:42] LABS: Albumin Globulin Ratio 1.1 (0.9-2); Albumin Level 3.9 gm/dl (3.4-5.0); BUN Creatinine Ratio 3.7 (10-20); Bilirubin,Total 0.8 mg/dl (0.2-1.0); Calcium 9.4 mg/dl (8.5-10.1); Creatinine Clr Calc Pharmacy 15.8 ml/min; Est GFR (African American) 10.9 ml/min; Est GFR (Non-African American) 9.4 ml/min; Globulin 3.6 gm/dl (2.5-4.0); Potassium 3.6 mmol/L (3.5-5.1); Total Protein 7.5 gm/dl (6.0-8.3)
--- NOTE | 2022-02-02 08:14 | Hospitalist Progress Note ---
Date of Service February 02, 2022 Assessment & Plan (1) Acute osteomyelitis of right foot: Plan: Acute osteomyelitis of right foot -MRI of right foot can not be completed due to recent pacemaker placement -ESR and CRP suggestive of active osteomyelitis infection -Started on Zosyn and daptomycin-> transitioned to ciprofloxacin based on renal dosing-> wound culture growing pseudomonas, surgical cultures without growth - Had GI upset with Zosyn, c diff negative, has resolved since switching antibiotics -s/p 2nd Metatarsal Resection on right on 01/27 and closure of wound on 01/31 with podiatry - Vascular surgery unable to offer surgical management as duplex US LE showed findings of peripheral vascular disease with no sonographic evidence of high- grade stenosis or focal vessel cut off through the arteries of the right or left lower extremity. - Plan to continue ciprofloxacin for a total of 6-8 weeks -PT/OT-> plan for acute rehab at [facility]; no HD beds available until next week Ulcer of extremity due to chronic venous insufficiency: See plan above Elevated troponin: Elevated troponin on admission= 129, repeat 120 - Denies chest pain, ECG without ischemic changes -> likely secondary to ESRD - continue to monitor tele End-stage renal disease on hemodialysis: -Sunday hemodialysis -Consult nephrology, appreciate recommendations -Avoid nephrotoxic agents PAF (paroxysmal atrial fibrillation): -Continue telemetry -Restart Eliquis today post operatively - Amiodarone held on admission, looking back on cariology notes, should remain on amiodarone-> will restart Moderate pulmonary hypertension: - Stable, continue CPAP at night GERD (gastroesophageal reflux disease): - Continue omeprazole Restrictive lung disease secondary to obesity: - Continue CPAP at night as above -Continue Breo Ellipta, albuterol as needed, montelukast Chronic diastolic heart failure: - Not currently on beta-ales[place] -Most recent echo on 01/08/2022 at [facility] consistent of left ventricular size moderately dilated, left ventricular hypertrophy, diffuse hypokinesis, left ventricular function mild to moderately decreased, ejection fraction of 35 to 40% -Consideration to start beta-[place], spironolactone, SGLT2 as an OP Obstructive sleep apnea: - CPAP as above Hyperlipidemia: - Continue statin CAD (coronary artery disease): - Continue aspirin, Plavix, ranolazine Diabetes mellitus type 2, uncontrolled: - Last A1c on 12/29 was 7.1; 7.6 on admission -Typically takes 33 units of Toujeo daily -Basal bolus with sliding scale and carb consistent diet while in hospital -Pharmacy glycemic consult placed, appreciate recommendations Hypertension: -Continue hydralazine twice daily Orthostatic hypotension: - Typically receives midodrine 3 times daily but will hold for now if he becomes hypotensive, consider restarting (2) Ulcer of extremity due to chronic venous insufficiency: (3) Elevated troponin: (4) End-stage renal disease on hemodialysis: (5) PAF (paroxysmal atrial fibrillation): (6) Moderate pulmonary hypertension: (7) GERD (gastroesophageal reflux disease): (8) Restrictive lung disease secondary to obesity: (9) Chronic diastolic heart failure: (10) Obstructive sleep apnea: (11) Hyperlipidemia: (12) CAD (coronary artery disease): (13) Diabetes mellitus type 2, uncontrolled: (14) Hypertension: (15) Orthostatic hypotension: Admission and Anticipated Discharge Date Admission Date: January 25, 2022 Supervising Physician Co-Signing Physician Notes I personally examined the patient and verified all mata points of history and exam, discussed case, and agree with decision making with Dr. Watkins No complaints today. Diarrhea gone. Discussed unfortunately likely no rehab beds until next week. Vitals noted, in general he is awake and alert pleasant no distress. HEENT normocephalic atraumatic mucous membranes moist. Breathing unlabored no accessory muscle use good effort. Skin shows no rashes no pallor or icterus. Foot dressed. No tracking erythema. osteomyelitis - ongoing wound care, changed abx to cipro (both because zosyn causing diarrhea and for easier care home dosing since he will need osteomyelitis duration treatment), diarrhea has improved with this, appreciate podiatry input, continue current care for the foreseeable future. diarrhea - abx associated, Cdiff negative. fairly common w zosyn. added probiotic, changed to ciprodiarrhea improved otherwise as above, anticoagulated, goal for rehab placement once available. This will not likely be until next week Subjective Ryan states he is doing well today. Diarrhea has significantly improved since switching antibiotics. Appetite is good. Denies foot pain, chest pain, dyspnea, abdominal pain. was at bedside, she is aware of plan. Review of Systems Review of Systems: As per HPI Physical Exam Physical Exam: Constitutional: well-appearing, no acute distress HEENT: NCAT, no conjunctival injection CV: regular rhythm, no murmur appreciated, extremities well-perfused, no LE edema, + pacemaker Resp: CTABL, no wheezes/rales/rhonchi appreciated, no increased work of breathing GI: soft, nondistended, nontender, BS normoactive MSK: no gross deformities appreciated, dressing on right foot clean and dry Skin: warm, dry, no rash appreciated Neuro: alert, oriented, no focal neurologic deficit appreciated Results & Data Results & Data ([facility]) Vital Signs (Past 12 Hours) Vital Signs Temp Pulse Pulse Resp BP Pulse Ox O2 Del Method 02/02/22 07:58 36.8 C 70 19 172/86 H 97 Room Air 02/02/22 07:30 70 02/02/22 06:12 70 02/02/22 03:41 36.3 C L 70 16 155/78 H 99 Nasal Cannula 02/01/22 21:20 Room Air, Nasal Cannula 02/01/22 23:08 36.6 C 70 18 132/67 98 Nasal Cannula O2 Flow Rate 02/02/22 07:58 02/02/22 07:30 02/02/22 06:12 02/02/22 03:41 4 02/01/22 21:20 4 02/01/22 23:08 4.0 Resident Activity Tracking Resident Involvement: Resident Care Provided Care Provided: Adult Hospital Medicine (1) CAD (coronary artery disease) Associated angina: without angina Coronary Disease-Associated Artery/Lesion type: [place] artery [place] vs. transplanted heart: [place] heart Qualified Code(s): I25.10 - Atherosclerotic heart disease of [place] coronary artery without angina pectoris (2) Diabetes mellitus type 2, uncontrolled Glycemic state: with hyperglycemia Qualified Code(s): E11.65 - Type 2 diabetes mellitus with hyperglycemia
--- NOTE | 2022-02-02 08:49 | Nephrology Progress Note ---
Date of Service February 02, 2022 Assessment & Plan (1) End-stage renal disease on hemodialysis: Plan: * ESKD on [facility]HD at [facility]. Outpatient Rx - MWF 4 hours and 15 min, Qb 400 via AVF, 2 K bath. EDW 105.5 kg. * No acute indication for HD today. Will schedule next treatment for am (2) Diabetic infection of right foot: Plan: * s/p R 2nd metatarsal resection 01/27/22 * Closure of surgical incision 01/31/22 * On oral Cipro (3) Anemia of chronic disease: Plan: * Will provide YOLETTE w/ HD Admission and Anticipated Discharge Date Admission Date: January 25, 2022 Subjective Mr. Walker was evaluated in his hospital room this morning. He and his were meeting with a home health franchise sales representative. He voiced no new medical concerns. Review of Systems Constitutional: no fever Eyes: no problem reported Ear, Nose, Mouth, Throat: no problem reported Respiratory: no dyspnea Cardiovascular: no chest pain Gastrointestinal: no abdominal pain Neurologic: no problem reported Physical Exam Constitutional: not in distress Eyes: PERRL, conjunctivae normal, anicteric sclerae ENMT: external ear and nose normal, oropharynx normal Neck: trachea midline, no thyromegaly Respiratory: normal respiratory effort, lungs clear to auscultation Cardiovascular: RRR, no murmur, no edema Extremities: + AV fistula (+ bruit) Gastrointestinal (Abdomen): normal bowel sounds, soft, nontender, no hepatosplenomegaly Neurologic: Speech / Cognition: normal speech and normal cognition Results & Data ([facility]) Vital Signs (Past 12 Hours) Vital Signs Temp Pulse Pulse Resp BP Pulse Ox O2 Del Method 02/02/22 07:58 36.8 C 70 19 172/86 H 97 Room Air 02/02/22 07:30 70 02/02/22 06:12 70 02/02/22 03:41 36.3 C L 70 16 155/78 H 99 Nasal Cannula 02/01/22 21:20 Room Air, Nasal Cannula 02/01/22 23:08 36.6 C 70 18 132/67 98 Nasal Cannula O2 Flow Rate 02/02/22 07:58 02/02/22 07:30 02/02/22 06:12 02/02/22 03:41 4 12/07/22 21:20 4 02/01/22 23:08 4.0 Laboratory Results Laboratory Tests 02/02/22 02/02/22 06:16 06:16 WBC 9.14 Hgb 10.2 L Hct 31.6 L Plt Count 172 Sodium 137 Potassium 3.6 Chloride 98 Carbon Dioxide 24 BUN 23 Creatinine 6.20 H* D Glucose 119 H Calcium 9.4 Albumin 3.9 PG Care Time/CCT Total # of Minutes Spent Total Time Spent with Patient: Total time spent is greater than 50% in coordination of care (as documented) at patient's floor/unit and/or counseling patient: Coding Level of Care Code 97368 Subseq Hosp Care Lvl 3 Diagnoses End-stage renal disease on hemodialysis N18.6; Z99.2 Diabetic infection of right foot E11.628; L08.9 Anemia of chronic disease D63.8
[2022-02-02] MEDS: ADVANCED PROBIOTIC 1250 MG CAPSULE PO SCH (08:59)
[2022-02-02] MEDS: INSULIN ASPART PER UNIT SC SCH ×4 (09:00→22:31)
[2022-02-02] MEDS: hydrALAZINE HCL 25 MG TAB PO SCH ×2 (09:00→19:30)
[2022-02-02] MEDS: ASPIRIN 81 MG ECTAB PO SCH (09:00)
[2022-02-02] MEDS: CLOPIDOGREL BISULFATE 75 MG TAB PO SCH (09:00)
[2022-02-02] MEDS: AMIODARONE 200 MG TAB PO SCH (09:00)
[2022-02-02] MEDS: APIXABAN 5 MG TABLET PO SCH ×2 (09:00→19:29)
[2022-02-02] MEDS: CHOLECALCIFEROL 1,000 UNITS 25 MCG TAB PO SCH (09:00)
[2022-02-02] MEDS: RANOLAZINE 500 MG ER TAB PO SCH ×2 (09:00→19:31)
[2022-02-02] MEDS: PANTOprazole 40 MG TAB PO SCH (09:00)
[2022-02-02] MEDS: FLUTICASONE/VILANTEROL 100/25MCG 14 PUFFS/INHALER INH SCH (09:01)
[2022-02-02] MEDS: LANTUS PER UNIT CHARGE SQ SCH (09:02)
[2022-02-02] MEDS: MONTELUKAST SODIUM 10 MG TABLET PO SCH (13:41)
[2022-02-02] MEDS: ACETAMINOPHEN 325 MG TAB PO PRN ×2 (16:50→20:54)
--- NOTE | 2022-02-02 17:27 | Billing Data ---
Date of Service February 02, 2022 Coding Level of Care Code 79833 Subseq Hosp Care Lvl 3
[2022-02-02] MEDS: ONDANSETRON INJ 2 MG/ML 2 ML VIAL IV PRN (17:37)
[2022-02-02] MEDS: ATORVASTATIN 40 MG TAB PO SCH (19:29)
[2022-02-02] MEDS: CIPROFLOXACIN 500 MG TAB PO SCH (19:30)
[2022-02-03 06:13] LABS: Hemoglobin 9.6 g/dl (14.0-18.0); Mean Corpuscular Hemoglobin 30.5 pg (25.0-34.0); Mean Corpuscular Volume 95.2 fL (80.0-100.0); Mean Platelet Volume 10.5 fL (9.4-12.4); Platelet Count 160 K/uL (130-400); RDW Coefficient of Variation 17.3 % (11.5-14.5); RDW Standard Deviation 59.2 fL (36.4-46.3); Red Blood Count 3.15 M/uL (4.63-6.08); White Blood Count 7.65 K/ul (4.8-10.8)
[2022-02-03 06:54] LABS: BUN Creatinine Ratio 4.2 (10-20); Calcium 8.9 mg/dl (8.5-10.1); Creatinine Clr Calc Pharmacy 11.8 ml/min; Est GFR (African American) 7.6 ml/min; Est GFR (Non-African American) 6.6 ml/min; Potassium 3.6 mmol/L (3.5-5.1)
[2022-02-03] MEDS ORDERED: SODIUM CHLORIDE 0.9% 1000ML 1,000 ML IV PRN (07:00)
[2022-02-03] MEDS ORDERED: EPOETIN ALFA 10,000 UNITS/ML VIAL IV ONE (07:00)
--- NOTE | 2022-02-03 07:59 | Hospitalist Progress Note ---
Date of Service February 03, 2022 Assessment & Plan (1) Acute osteomyelitis of right foot: Plan: Acute osteomyelitis of right foot -MRI of right foot can not be completed due to recent pacemaker placement -ESR and CRP suggestive of active osteomyelitis infection -Started on Zosyn and daptomycin-> transitioned to ciprofloxacin based on renal dosing-> wound culture growing pseudomonas, surgical cultures without growth - Had GI upset with Zosyn, c diff negative, has resolved since switching antibiotics -s/p 2nd Metatarsal Resection on right on 01/27 and closure of wound on 01/31 with podiatry - Vascular surgery unable to offer surgical management as duplex US LE showed findings of peripheral vascular disease with no sonographic evidence of high- grade stenosis or focal vessel cut off through the arteries of the right or left lower extremity. - Plan to continue ciprofloxacin for a total of 6-8 weeks -PT/OT-> plan for acute rehab at [facility]; no HD beds available until next week Ulcer of extremity due to chronic venous insufficiency: See plan above Elevated troponin: Elevated troponin on admission= 129, repeat 120 - Denies chest pain, ECG without ischemic changes -> likely secondary to ESRD - continue to monitor tele End-stage renal disease on hemodialysis: -Sunday hemodialysis -Consult nephrology, appreciate recommendations -Avoid nephrotoxic agents PAF (paroxysmal atrial fibrillation): -Continue telemetry -Continue Eliquis - Amiodarone held on admission, looking back on cariology notes, should remain on amiodarone-> will restart Moderate pulmonary hypertension: - Stable, continue CPAP at night GERD (gastroesophageal reflux disease): - Continue omeprazole Restrictive lung disease secondary to obesity: - Continue CPAP at night as above -Continue Breo Ellipta, albuterol as needed, montelukast Chronic diastolic heart failure: - Not currently on beta-alesia -Most recent echo on 01/08/2022 at [facility] consistent of left ventricular size moderately dilated, left ventricular hypertrophy, diffuse hypokinesis, left ventricular function mild to moderately decreased, ejection fraction of 35 to 40% -Consideration to start beta-alesia, spironolactone, SGLT2 as an OP Obstructive sleep apnea: - CPAP as above Hyperlipidemia: - Continue statin CAD (coronary artery disease): - Continue aspirin, Plavix, ranolazine Diabetes mellitus type 2, uncontrolled: - Last A1c on 12/29 was 7.1; 7.6 on admission -Typically takes 33 units of Toujeo daily -Basal bolus with sliding scale and carb consistent diet while in hospital -Pharmacy glycemic consult placed, appreciate recommendations Hypertension: -Continue hydralazine twice daily Orthostatic hypotension: - Typically receives midodrine 3 times daily but will hold for now if he becomes hypotensive, consider restarting (2) Ulcer of extremity due to chronic venous insufficiency: (3) Elevated troponin: (4) End-stage renal disease on hemodialysis: (5) PAF (paroxysmal atrial fibrillation): (6) Moderate pulmonary hypertension: (7) GERD (gastroesophageal reflux disease): (8) Restrictive lung disease secondary to obesity: (9) Chronic diastolic heart failure: (10) Obstructive sleep apnea: (11) Hyperlipidemia: (12) CAD (coronary artery disease): (13) Diabetes mellitus type 2, uncontrolled: (14) Hypertension: (15) Orthostatic hypotension: Admission and Anticipated Discharge Date Admission Date: January 25, 2022 Supervising Physician Co-Signing Physician Notes I personally examined the patient and verified all mata points of history and exam, discussed case, and agree with decision making with Dr. Watkins Feeling good, passing the time by looking at the window and watching planes. Awaiting rehab. Vitals noted, in general he is awake and alert pleasant no distress. HEENT normocephalic atraumatic mucous membranes moist. Breathing unlabored no accessory muscle use good effort. Skin shows no rashes no pallor or icterus. Foot dressed. No tracking erythema. osteomyelitis - ongoing wound care, changed abx to cipro (both because zosyn causing diarrhea and for easier chcf dosing since he will need osteomyelitis duration treatment), diarrhea has improved with this, appreciate podiatry input, continue current care for the foreseeable future. Stable diarrhea - abx associated, Cdiff negative. fairly common w zosyn. added probiotic, changed to ciprodiarrhea improved and has essentially resolved otherwise as above, anticoagulated, goal for rehab placement once available. This will not likely be until next week Subjective Ryan is doing well today. States his stomach was a little bit upset last evening, but improving today. No complaints. Denies any foot pain, chest pain, dyspnea, fever/chills. Review of Systems Review of Systems: As per HPI Physical Exam Physical Exam: Constitutional: well-appearing, no acute distress HEENT: NCAT, no conjunctival injection CV: regular rhythm, no murmur appreciated, extremities well-perfused, no LE edema, + pacemaker Resp: CTABL, no wheezes/rales/rhonchi appreciated, no increased work of breathing GI: soft, nondistended, nontender, BS normoactive MSK: no gross deformities appreciated, dressing on right foot clean and dry Skin: warm, dry, no rash appreciated Neuro: alert, oriented, no focal neurologic deficit appreciated Results & Data Results & Data ([facility]) Vital Signs (Past 12 Hours) Vital Signs Temp Pulse Pulse Resp BP Pulse Ox O2 Del Method 02/03/22 03:57 36.7 C 80 18 129/74 99 Nasal Cannula 02/03/22 00:53 73 02/02/22 22:40 36.7 C 71 20 129/76 98 Nasal Cannula O2 Flow Rate 02/03/22 03:57 4 02/03/22 00:53 02/02/22 22:40 4 Resident Activity Tracking Resident Involvement: Resident Care Provided Care Provided: Adult Hospital Medicine (1) CAD (coronary artery disease) Associated angina: without angina Coronary Disease-Associated Artery/Lesion type: [place] artery [place] vs. transplanted heart: [place] heart Qualified Code(s): I25.10 - Atherosclerotic heart disease of [place] coronary artery without angina pectoris (2) Diabetes mellitus type 2, uncontrolled Glycemic state: with hyperglycemia Qualified Code(s): E11.65 - Type 2 diabetes mellitus with hyperglycemia
[2022-02-03] MEDS: ACETAMINOPHEN 325 MG TAB PO PRN (08:16)
[2022-02-03] MEDS: INSULIN ASPART PER UNIT SC SCH ×4 (08:18→20:37)
[2022-02-03] MEDS: CLOPIDOGREL BISULFATE 75 MG TAB PO SCH (08:20)
[2022-02-03] MEDS: hydrALAZINE HCL 25 MG TAB PO SCH ×2 (08:20→20:44)
[2022-02-03] MEDS: AMIODARONE 200 MG TAB PO SCH (08:20)
[2022-02-03] MEDS: CHOLECALCIFEROL 1,000 UNITS 25 MCG TAB PO SCH (08:20)
[2022-02-03] MEDS: ASPIRIN 81 MG ECTAB PO SCH (08:20)
[2022-02-03] MEDS: MONTELUKAST SODIUM 10 MG TABLET PO SCH (08:21)
[2022-02-03] MEDS: ADVANCED PROBIOTIC 1250 MG CAPSULE PO SCH (08:21)
[2022-02-03] MEDS: RANOLAZINE 500 MG ER TAB PO SCH ×2 (08:21→20:43)
[2022-02-03] MEDS: APIXABAN 5 MG TABLET PO SCH ×2 (08:21→20:44)
[2022-02-03] MEDS: PANTOprazole 40 MG TAB PO SCH (08:21)
[2022-02-03] MEDS: LANTUS PER UNIT CHARGE SQ SCH (08:24)
[2022-02-03] MEDS: FLUTICASONE/VILANTEROL 100/25MCG 14 PUFFS/INHALER INH SCH (08:25)
--- NOTE | 2022-02-03 09:00 | Nephrology Progress Note ---
Date of Service February 03, 2022 Assessment & Plan (1) End-stage renal disease on hemodialysis: Plan: * ESKD on IHD at [facility]. Outpatient Rx - MWF 4 hours and 15 min, Qb 400 via AVF, 2 K bath. EDW 105.5 kg. * HD today. Orders have been entered into EMR and HD RN notified (2) Diabetic infection of right foot: Plan: * s/p R 2nd metatarsal resection 01/27/22 * Closure of surgical incision 01/31/22 * On oral Cipro (3) Anemia of chronic disease: Plan: * Will provide YOLETTE w/ HD Admission and Anticipated Discharge Date Admission Date: January 25, 2022 Subjective Mr. Walker was evaluated in his hospital room this morning. He reports that he is awaiting placement at [facility] next week. He voiced no new medical concerns. Review of Systems Constitutional: no fever Eyes: no problem reported Ear, Nose, Mouth, Throat: no problem reported Respiratory: no dyspnea Cardiovascular: no chest pain Gastrointestinal: no abdominal pain Neurologic: no problem reported Physical Exam Constitutional: not in distress Eyes: PERRL, conjunctivae normal, anicteric sclerae ENMT: external ear and nose normal, oropharynx normal Neck: trachea midline, no thyromegaly Respiratory: normal respiratory effort, lungs clear to auscultation Cardiovascular: RRR, no murmur, no edema Extremities: + AV fistula (+ bruit) Gastrointestinal (Abdomen): normal bowel sounds, soft, nontender, no hepatosplenomegaly Neurologic: Speech / Cognition: normal speech and normal cognition Results & Data ([facility]) Vital Signs (Past 12 Hours) Vital Signs Temp Pulse Pulse Resp BP Pulse Ox O2 Del Method 02/03/22 08:23 36.6 C 70 20 172/96 H 99 Nasal Cannula 02/03/22 03:57 36.7 C 80 18 129/74 99 Nasal Cannula 02/03/22 00:53 73 02/02/22 22:40 36.7 C 71 20 129/76 98 Nasal Cannula O2 Flow Rate 02/03/22 08:23 4.0 02/03/22 03:57 4 02/03/22 00:53 02/02/22 22:40 4 Laboratory Results Laboratory Tests 02/03/22 02/03/22 05:31 05:31 WBC 7.65 Hgb 9.6 L Hct 30.0 L Plt Count 160 Sodium 135 L Potassium 3.6 Chloride 98 Carbon Dioxide 23 BUN 35 H Creatinine 8.35 H* D Glucose 133 H Calcium 8.9 PG Care Time/CCT Total # of Minutes Spent Total Time Spent with Patient: Total time spent is greater than 50% in coordination of care (as documented) at patient's floor/unit and/or counseling patient: Coding Level of Care Code 51243 Subseq Hosp Care Lvl 3 Diagnoses End-stage renal disease on hemodialysis N18.6; Z99.2 Diabetic infection of right foot E11.628; L08.9 Anemia of chronic disease D63.8
--- NOTE | 2022-02-03 19:48 | Billing Data ---
Date of Service February 03, 2022 Coding Level of Care Code 70141 Subseq Hosp Care Lvl 3
[2022-02-03] MEDS: CIPROFLOXACIN 500 MG TAB PO SCH (20:44)
[2022-02-03] MEDS: ATORVASTATIN 40 MG TAB PO SCH (20:44)
[2022-02-04 05:39] LABS: Hematocrit (blood only) 31.2 % (40.1-51.0); Hemoglobin 10.1 g/dl (14.0-18.0); Mean Corpuscular Hemoglobin 30.6 pg (25.0-34.0); Mean Corpuscular Hgb Conc 32.4 g/dL (32.0-36.0); Mean Corpuscular Volume 94.5 fL (80.0-100.0); Mean Platelet Volume 10.9 fL (9.4-12.4); Platelet Count 174 K/uL (130-400); RDW Coefficient of Variation 17.5 % (11.5-14.5); RDW Standard Deviation 59.8 fL (36.4-46.3); White Blood Count 8.46 K/ul (4.8-10.8)
[2022-02-04 06:03] LABS: BUN Creatinine Ratio 3.8 (10-20); Calcium 8.7 mg/dl (8.5-10.1); Creatinine Clr Calc Pharmacy 16.8 ml/min; Est GFR (African American) 11.8 ml/min; Est GFR (Non-African American) 10.2 ml/min; Potassium 3.4 mmol/L (3.5-5.1)
--- NOTE | 2022-02-04 07:52 | Hospitalist Progress Note ---
Date of Service February 04, 2022 Assessment & Plan (1) Acute osteomyelitis of right foot: Plan: Patient is a 51-year-old male with past medical history of ESRD on HD MWF, chronic hypoxemic respiratory failure secondary to restrictive lung disease and pulmonary hypertension on 4 L of oxygen at home, type 2 diabetes on 33 units daily of Toujeo, hypertension, atrial fibrillation, and pacemaker placement (see insertion 1 week ago) coming into the hospital for evaluation of a right foot infection which has since been treated with antibiotics and metatarsal resection with subsequent closure of wound now POD5 awaiting placement at [facility]. Acute osteomyelitis of right foot MRI of right foot could not be completed due to recent pacemaker placement. ESR and CRP suggestive of active osteomyelitis infection [] Started on Zosyn and daptomycin: first day 01/25. Since transitioned to ciprofloxacin with renal dosing [] Wound culture grew pseudomonas [] Had GI upset with Zosyn, c diff negative, has resolved since switching antibiotics [] s/p 2nd Metatarsal Resection on right on 01/27 and closure of wound on 01/31 with podiatry [] Vascular surgery unable to offer surgical management as duplex US LE showedfindings of peripheral vascular disease with no sonographic evidence of high-grade stenosis or focal vessel cut off through the arteries of the right or left lower extremity. [] downgrade to med/surg - Plan to continue ciprofloxacin for a total of 6-8 weeks - PT/OT-> plan for acute rehab at [facility]; no HD beds available until next week Ulcer of extremity due to chronic venous insufficiency: See plan above Elevated troponin: Elevated troponin on admission= 129, repeat 120. Denies chest pain, ECG without ischemic changes -> likely secondary to ESRD [] continue to monitor tele End-stage renal disease on hemodialysis: [] MWF hemodialysis [] Consult nephrology, appreciate recommendations [] Avoid nephrotoxic agents PAF (paroxysmal atrial fibrillation): [] Continue Eliquis [] Amiodarone held on admission, looking back on cardiology notes, should remain on amiodarone Moderate pulmonary hypertension: [] Stable, continue CPAP at night GERD (gastroesophageal reflux disease): Continue omeprazole Restrictive lung disease secondary to obesity: Continue CPAP at night as above. Continue Breo Ellipta, albuterol as needed, montelukast Chronic diastolic heart failure: HFrEF 35%-40% Not currently on beta-alesia. Most recent echo on 01/08/2022 at [facility] consistent of left ventricular size moderately dilated, left ventricular hypertrophy, diffuse hypokinesis, left ventricular function mild to moderately decreased, ejection fraction of 35 to 40% [] Consideration to start beta-alesia, spironolactone, SGLT2 as an OP Obstructive sleep apnea: CPAP as above Hyperlipidemia: Continue statin CAD (coronary artery disease): Continue aspirin, Plavix, ranolazine Diabetes mellitus type 2, uncontrolled: Last A1c on 12/29 was 7.1; 7.6 on admission. Typically takes 33 units of Toujeo daily. Basal bolus with sliding scale and carb consistent diet while in hospital [] basal bolus w/sliding scale [] carb consistent diet [] pharmacy glycemic consult placed, appreciate recs Hypertension: Continue hydralazine twice daily Orthostatic hypotension: Typically receives midodrine 3 times daily but will hold for now if he becomes hypotensive, consider restarting Dispo: downgrade to med/surg DVT ppx: Plavix Code: full FENGI: Carb consistent, dialysis (2) Ulcer of extremity due to chronic venous insufficiency: (3) Elevated troponin: (4) End-stage renal disease on hemodialysis: (5) PAF (paroxysmal atrial fibrillation): (6) Moderate pulmonary hypertension: (7) GERD (gastroesophageal reflux disease): (8) Restrictive lung disease secondary to obesity: (9) Chronic diastolic heart failure: (10) Obstructive sleep apnea: (11) Hyperlipidemia: (12) CAD (coronary artery disease): (13) Diabetes mellitus type 2, uncontrolled: (14) Hypertension: (15) Orthostatic hypotension: Admission and Anticipated Discharge Date Admission Date: January 25, 2022 Supervising Physician Co-Signing Physician Notes The patient was seen and examined by me. Case discussed with resident physician. Agree with assessment and plan. Lungs are clear and heart rhythm is regular. Right foot is currently heavily bandaged. Potassium replacement underway. Subjective Ryan is doing well today. No complaints. Denies any foot pain, chest pain, dyspnea, fever/chills. Review of Systems Review of Systems: As per HPI Physical Exam Physical Exam: Constitutional: well-appearing, no acute distress HEENT: NCAT, no conjunctival injection CV: regular rhythm, no murmur appreciated, extremities well-perfused, no LE edema, + pacemaker Resp: CTABL, no wheezes/rales/rhonchi appreciated, no increased work of breathing GI: soft, nondistended, MSK: no gross deformities appreciated, dressing on right foot clean and dry - no strike through Skin: warm, dry, no rash appreciated Neuro: alert, oriented, no focal neurologic deficit appreciated Results & Data Results & Data ([facility]) Vital Signs (Past 12 Hours) Vital Signs Temp Pulse Pulse Resp BP Pulse Ox O2 Del Method 02/04/22 02:58 36.7 C 74 20 122/68 95 Nasal Cannula 02/04/22 02:06 69 02/03/22 20:00 Nasal Cannula 02/03/22 22:48 36.6 C 69 18 121/74 99 Nasal Cannula 02/03/22 19:54 36.6 C 75 20 145/77 H 99 Nasal Cannula O2 Flow Rate 02/04/22 02:58 4 02/04/22 02:06 02/03/22 20:00 4 02/03/22 22:48 4 02/03/22 19:54 4.0 Laboratory Results 02/04/22 02/04/22 02/03/22 Range/Units 05:05 05:05 20:10 WBC 8.46 (4.8-10.8) K/ul RBC 3.30 L (4.63-6.08) M/uL Hgb 10.1 L (14.0-18.0) g/dl Hct 31.2 L (40.1-51.0) % MCV 94.5 (80.0-100.0) fL MCH 30.6 (25.0-34.0) pg MCHC 32.4 (32.0-36.0) g/dL RDW Std Deviation 59.8 H (36.4-46.3) fL RDW Coeff of Octavio 17.5 H (11.5-14.5) % Plt Count 174 (130-400) K/uL MPV 10.9 (9.4-12.4) fL Sodium 137 (136-145) mmol/L Potassium 3.4 L (3.5-5.1) mmol/L Chloride 100 (98-107) mmol/L Carbon Dioxide 23 (21-32) mmol/L Anion Gap 14 H (3-11) BUN 22 (6-23) mg/dl Creatinine 5.83 H* D (0.6-1.4) mg/dl Est Cr Clr Drug Dosing 16.8 ml/min Est GFR ( Amer) 11.8 ml/min Est GFR (Non-Af Amer) 10.2 ml/min BUN/Creatinine Ratio 3.8 L (10-20) Glucose 123 H (70-99(Fasting)) mg/dl POC Glucose 140 H (70-99) mg/dl Calcium 8.7 (8.5-10.1) mg/dl 02/03/22 02/03/22 02/03/22 Range/Units 17:33 12:06 07:49 WBC (4.8-10.8) K/ul RBC (4.63-6.08) M/uL Hgb (14.0-18.0) g/dl Hct (40.1-51.0) % MCV (80.0-100.0) fL MCH (25.0-34.0) pg MCHC (32.0-36.0) g/dL RDW Std Deviation (36.4-46.3) fL RDW Coeff of Octavio (11.5-14.5) % Plt Count (130-400) K/uL MPV (9.4-12.4) fL Sodium (136-145) mmol/L Potassium (3.5-5.1) mmol/L Chloride (98-107) mmol/L Carbon Dioxide (21-32) mmol/L Anion Gap (3-11) BUN (6-23) mg/dl Creatinine (0.6-1.4) mg/dl Est Cr Clr Drug Dosing ml/min Est GFR ( Amer) ml/min Est GFR (Non-Af Amer) ml/min BUN/Creatinine Ratio (10-20) Glucose (70-99(Fasting)) mg/dl POC Glucose 113 H 198 H 124 H (70-99) mg/dl Calcium (8.5-10.1) mg/dl 02/02/22 Range/Units 07:56 WBC (4.8-10.8) K/ul RBC (4.63-6.08) M/uL Hgb (14.0-18.0) g/dl Hct (40.1-51.0) % MCV (80.0-100.0) fL MCH (25.0-34.0) pg MCHC (32.0-36.0) g/dL RDW Std Deviation (36.4-46.3) fL RDW Coeff of Octavio (11.5-14.5) % Plt Count (130-400) K/uL MPV (9.4-12.4) fL Sodium (136-145) mmol/L Potassium (3.5-5.1) mmol/L Chloride (98-107) mmol/L Carbon Dioxide (21-32) mmol/L Anion Gap (3-11) BUN (6-23) mg/dl Creatinine (0.6-1.4) mg/dl Est Cr Clr Drug Dosing ml/min Est GFR ( Amer) ml/min Est GFR (Non-Af Amer) ml/min BUN/Creatinine Ratio (10-20) Glucose (70-99(Fasting)) mg/dl POC Glucose 143 H (70-99) mg/dl Calcium (8.5-10.1) mg/dl Resident Activity Tracking Resident Involvement: Resident Care Provided Care Provided: Adult Hospital Medicine (1) CAD (coronary artery disease) Associated angina: without angina Coronary Disease-Associated Artery/Lesion type: [place] artery [place] vs. transplanted heart: [place] heart Qualified Code(s): I25.10 - Atherosclerotic heart disease of [place] coronary artery wit hout angina pectoris (2) Diabetes mellitus type 2, uncontrolled Glycemic state: with hyperglycemia Qualified Code(s): E11.65 - Type 2 diabetes mellitus with hyperglycemia
[2022-02-04] MEDS ORDERED: POTASSIUM CHLORIDE CRTAB 20 MEQ TABCR PO STA (08:22)
[2022-02-04] MEDS: INSULIN ASPART PER UNIT SC SCH ×4 (08:28→21:08)
[2022-02-04] MEDS: LANTUS PER UNIT CHARGE SQ SCH (08:28)
[2022-02-04] MEDS: PANTOprazole 40 MG TAB PO SCH (08:44)
[2022-02-04] MEDS: CLOPIDOGREL BISULFATE 75 MG TAB PO SCH (08:44)
[2022-02-04] MEDS: ASPIRIN 81 MG ECTAB PO SCH (08:44)
[2022-02-04] MEDS: hydrALAZINE HCL 25 MG TAB PO SCH ×2 (08:44→21:06)
[2022-02-04] MEDS: MONTELUKAST SODIUM 10 MG TABLET PO SCH (08:44)
[2022-02-04] MEDS: CHOLECALCIFEROL 1,000 UNITS 25 MCG TAB PO SCH (08:44)
[2022-02-04] MEDS: AMIODARONE 200 MG TAB PO SCH (08:44)
[2022-02-04] MEDS: RANOLAZINE 500 MG ER TAB PO SCH ×2 (08:45→21:07)
[2022-02-04] MEDS: FLUTICASONE/VILANTEROL 100/25MCG 14 PUFFS/INHALER INH SCH (08:45)
[2022-02-04] MEDS: APIXABAN 5 MG TABLET PO SCH ×2 (08:45→21:07)
[2022-02-04] MEDS: ADVANCED PROBIOTIC 1250 MG CAPSULE PO SCH (09:48)
--- NOTE | 2022-02-04 13:24 | Nephrology Progress Note ---
Date of Service February 04, 2022 Assessment & Plan (1) End-stage renal disease on hemodialysis: (2) Anemia of chronic disease: (3) Hyperphosphatemia: (4) Acute osteomyelitis of right foot: Plan 51-year-old male with ESRD on HD MWF, chronic hypoxemic respiratory failure secondary to restrictive lung disease and pulmonary hypertension on 4 L of oxygen at home, DM, HTN Admitted with right foot infection and osteomyelitis status post metatarsal resection and closure of the wound. currently awaiting placement at [facility]. Had dialysis yesterday is regular schedule, the food, electrolyte, volume status acceptable. Blood pressure has been quite variable, mostly high but is reluctant to make any changes in his antihypertensive medication at this time. -- Continue to monitor over the weekend and keep on scheduled for dialysis on Sunday. -- Check phosphate with next labs and if elevated, start on phosphate binder with meal. -- start on renal vitamin daily. -- Dose medications for a GFR less than 10, left arm nephrology precaution. Will follow. Admission and Anticipated Discharge Date Admission Date: January 25, 2022 Lanie Davis was seen and evaluated in his room this morning. Denies any specific symptoms. Had dialysis yesterday wanted full. Currently electrolyte, volume status acceptable. No shortness of breath or chest pain. Blood pressure slightly elevated. Review of Systems Review of Systems: Detailed review of system was otherwise unremarkable. Physical Exam Constitutional: WD/WN, vitals as above no acute distress Eyes: + anicteric sclerae ENMT: Ears: no hearing impairment Respiratory: Auscultation: lungs clear to auscultation bilaterally Cardiovascular: RRR, no murmur, no edema Neurologic: no focal motor deficits and not confused Psychiatric: Orientation: alert and oriented x 3 Results & Data ([facility]) Vital Signs (Past 12 Hours) Vital Signs Temp Pulse Pulse Pulse Resp BP Pulse Ox 02/04/22 11:16 72 72 20 146/72 H 98 02/04/22 08:00 70 02/04/22 08:48 36.3 C L 70 18 189/103 H 100 02/04/22 02:58 36.7 C 74 20 122/68 95 02/04/22 02:06 69 O2 Del Method O2 Flow Rate 02/04/22 11:16 Nasal Cannula 4 02/04/22 08:00 02/04/22 08:48 Room Air 02/04/22 02:58 Nasal Cannula 4 02/04/22 02:06 PG Care Time/CCT Total # of Minutes Spent Total Time Spent with Patient: Total time spent is greater than 50% in coordination of care (as documented) at patient's floor/unit and/or counseling patient: Coding Level of Care Code 74005 Subseq Hosp Care Lvl 3 Diagnoses End-stage renal disease on hemodialysis N18.6; Z99.2 Anemia of chronic disease D63.8 Hyperphosphatemia E83.39 Acute osteomyelitis of right foot M86.171
--- NOTE | 2022-02-04 13:46 | Billing Data ---
Date of Service February 04, 2022 Coding Level of Care Code 21691 Subseq Hosp Care Lvl 2
[2022-02-04] MEDS: CIPROFLOXACIN 500 MG TAB PO SCH (21:07)
[2022-02-04] MEDS: ATORVASTATIN 40 MG TAB PO SCH (21:07)
--- NOTE | 2022-02-05 07:15 | Hospitalist Progress Note ---
Date of Service February 05, 2022 Assessment & Plan (1) Acute osteomyelitis of right foot: Plan: Patient is a 51-year-old male with past medical history of ESRD on HD MWF, chronic hypoxemic respiratory failure secondary to restrictive lung disease and pulmonary hypertension on 4 L of oxygen at home, type 2 diabetes on 33 units daily of Toujeo, hypertension, atrial fibrillation, and pacemaker placement (see insertion 1 week ago) coming into the hospital for evaluation of a right foot infection which has since been treated with antibiotics and metatarsal resection with subsequent closure of wound awaiting placement at [facility] likely 02/06. Acute osteomyelitis of right foot MRI of right foot could not be completed due to recent pacemaker placement. ESR and CRP suggestive of active osteomyelitis infection. Wound culture grew pseu domonas. Started on Zosyn and daptomycin then transitioned to ciprofloxacin with renal dosing 03/30 to diarrhea - c. dif negative. Treat for 6-8 weeks total - Start: 01/25. End 03/22. Vascular surgery unable to offer surgical management as duplex US LE showedfindings of peripheral vascular disease with no sonographic evidence of high-grade stenosis or focal vessel cut off through the arteries of the right or left lower extremity. [] Continue cipro with renal dosing for 6-8 weeks total of abx - start 01/25 end 03/22 [] s/p 2nd Metatarsal Resection on right on 01/27 and closure of wound on 01/31 with podiatry Ulcer of extremity due to chronic venous insufficiency: See plan above Elevated troponin: Elevated troponin on admission= 129, repeat 120. Denies chest pain, ECG without ischemic changes -> likely secondary to ESRD. End-stage renal disease on hemodialysis: [] MWF hemodialysis [] Consult nephrology, appreciate recommendations [] Avoid nephrotoxic agents PAF (paroxysmal atrial fibrillation): Eliquis 5 mg BID. Amiodarone held on admission, looking back on cardiology notes, should remain on amiodarone Moderate pulmonary hypertension: Stable, continue CPAP at night GERD (gastroesophageal reflux disease): Continue omeprazole Restrictive lung disease secondary to obesity: Continue CPAP at night as above. Continue Breo Ellipta, albuterol as needed, montelukast Chronic diastolic heart failure: HFrEF 35%-40% Not currently on beta-[place]. Most recent echo on 01/08/[address] [facility] consistent of left ventricular size moderately dilated, left ventricular hypertrophy, diffuse hypokinesis, left ventricular function mild to moderately decreased, ejection fraction of 35 to 40%. Consider starting GDMT outpatient with beta- alesia, spironolactone, SGLT2 etc. Obstructive sleep apnea: CPAP as above Hyperlipidemia: Continue statin CAD (coronary artery disease): Continue aspirin, Plavix, ranolazine Diabetes mellitus type 2, uncontrolled: Last A1c on 12/29 was 7.1; 7.6 on admission. Typically takes 33 units of Toujeo daily. Basal bolus with sliding scale and carb consistent diet while in hospital. Hypertension: Continue hydralazine twice daily Orthostatic hypotension: Typically receives midodrine 3 times daily but will hold for now if he becomes hypotensive, consider restarting Dispo: med/surg, awaiting HD bed at [facility] DVT ppx: Plavix Code: full FENGI: Carb consistent, dialysis (2) Ulcer of extremity due to chronic venous insufficiency: (3) Elevated troponin: (4) End-stage renal disease on hemodialysis: (5) PAF (paroxysmal atrial fibrillation): (6) Moderate pulmonary hypertension: (7) GERD (gastroesophageal reflux disease): (8) Restrictive lung disease secondary to obesity: (9) Chronic diastolic heart failure: (10) Obstructive sleep apnea: (11) Hyperlipidemia: (12) CAD (coronary artery disease): (13) Diabetes mellitus type 2, uncontrolled: (14) Hypertension: (15) Orthostatic hypotension: Admission and Anticipated Discharge Date Admission Date: January 25, 2022 Supervising Physician Co-Signing Physician Notes The patient was seen and examined by me. Case discussed with resident physician. Agree with assessment and plan. Oxygen saturation acceptable on his usual 4 L oxygen which she wears at home. Lung sounds diminished but no rhonchi or wheezing. No dullness to percussion. Heart rhythm is regular. Subjective Patient denies any complaints today. Breathing is at baseline. No pain. Would like to shower. Review of Systems Review of Systems: As per HPI Physical Exam Physical Exam: Constitutional: well-appearing, no acute distress HEENT: NCAT, no conjunctival injection CV: regular rhythm, no murmur appreciated, extremities well-perfused, + pacemaker Resp: CTAB, no wheezes/rales/rhonchi appreciated, no increased work of breathing GI: soft, nondistended, MSK: no gross deformities appreciated, dressing on right foot clean and dry - no strike through Skin: warm, dry, no rash appreciated Neuro: alert, oriented, no focal neurologic deficit appreciated Results & Data Results & Data ([facility]) Vital Signs (Past 12 Hours) Vital Signs Temp Pulse Pulse Resp BP Pulse Ox O2 Del Method 02/05/22 07:00 36.9 C 70 16 142/88 H 99 Nasal Cannula 02/04/22 19:53 Nasal Cannula 02/04/22 23:00 36.4 C L 70 20 160/90 H 100 Nasal Cannula 02/04/22 21:02 36.4 C L 70 18 148/95 H 99 Nasal Cannula O2 Flow Rate 02/05/22 07:00 4 02/04/22 19:53 4 02/04/22 23:00 4 02/04/22 21:02 4 Laboratory Results 02/05/22 02/05/22 02/04/22 Range/Units 08:17 08:02 20:29 Sodium 135 L (136-145) mmol/L Potassium 4.1 D (3.5-5.1) mmol/L Chloride 98 (98-107) mmol/L Carbon Dioxide 20 L (21-32) mmol/L Anion Gap 17 H (3-11) BUN 36 H (6-23) mg/dl Creatinine 7.75 H* D (0.6-1.4) mg/dl Est Cr Clr Drug Dosing 12.7 ml/min Est GFR ( Amer) 8.3 ml/min Est GFR (Non-Af Amer) 7.2 ml/min BUN/Creatinine Ratio 4.6 L (10-20) Glucose 132 H (70-99(Fasting)) mg/dl POC Glucose 133 H 128 H (70-99) mg/dl Calcium 8.6 (8.5-10.1) mg/dl Phosphorus 6.8 H (2.5-4.9) mg/dl Albumin 3.7 (3.4-5.0) gm/dl 02/04/22 02/04/22 Range/Units 17:10 12:08 Sodium (136-145) mmol/L Potassium (3.5-5.1) mmol/L Chloride (98-107) mmol/L Carbon Dioxide (21-32) mmol/L Anion Gap (3-11) BUN (6-23) mg/dl Creatinine (0.6-1.4) mg/dl Est Cr Clr Drug Dosing ml/min Est GFR ( Amer) ml/min Est GFR (Non-Af Amer) ml/min BUN/Creatinine Ratio (10-20) Glucose (70-99(Fasting)) mg/dl POC Glucose 120 H 180 H (70-99) mg/dl Calcium (8.5-10.1) mg/dl Phosphorus (2.5-4.9) mg/dl Albumin (3.4-5.0) gm/dl Resident Activity Tracking Resident Involvement: Resident Care Provided Care Provided: Adult Hospital Medicine (1) CAD (coronary artery disease) Associated angina: without angina Coronary Disease-Associated Artery/Lesion type: [place] artery [place] vs. transplanted heart: [place] heart Qualified Code(s): I25.10 - Atherosclerotic heart disease of [place] coronary artery without angina pectoris (2) Diabetes mellitus type 2, uncontrolled Glycemic state: with hyperglycemia Qualified Code(s): E11.65 - Type 2 diabetes mellitus with hyperglycemia
[2022-02-05 08:58] LABS: Albumin Level 3.7 gm/dl (3.4-5.0); BUN Creatinine Ratio 4.6 (10-20); Calcium 8.6 mg/dl (8.5-10.1); Creatinine Clr Calc Pharmacy 12.7 ml/min; Est GFR (African American) 8.3 ml/min; Est GFR (Non-African American) 7.2 ml/min; Phosphorus 6.8 mg/dl (2.5-4.9); Potassium 4.1 mmol/L (3.5-5.1)
[2022-02-05] MEDS: ADVANCED PROBIOTIC 1250 MG CAPSULE PO SCH (09:21)
[2022-02-05] MEDS: NEPHROCAPS PO SCH (09:22)
[2022-02-05] MEDS: PANTOprazole 40 MG TAB PO SCH (09:22)
[2022-02-05] MEDS: CLOPIDOGREL BISULFATE 75 MG TAB PO SCH (09:22)
[2022-02-05] MEDS: MONTELUKAST SODIUM 10 MG TABLET PO SCH (09:22)
[2022-02-05] MEDS: AMIODARONE 200 MG TAB PO SCH (09:22)
[2022-02-05] MEDS: ASPIRIN 81 MG ECTAB PO SCH (09:22)
[2022-02-05] MEDS: CHOLECALCIFEROL 1,000 UNITS 25 MCG TAB PO SCH (09:24)
[2022-02-05] MEDS: FLUTICASONE/VILANTEROL 100/25MCG 14 PUFFS/INHALER INH SCH (09:24)
[2022-02-05] MEDS: APIXABAN 5 MG TABLET PO SCH ×2 (09:24→20:18)
[2022-02-05] MEDS: hydrALAZINE HCL 25 MG TAB PO SCH ×2 (09:25→20:18)
[2022-02-05] MEDS: RANOLAZINE 500 MG ER TAB PO SCH ×2 (09:27→20:18)
[2022-02-05] MEDS: LANTUS PER UNIT CHARGE SQ SCH (09:37)
[2022-02-05] MEDS: INSULIN ASPART PER UNIT SC SCH ×4 (09:37→21:00)
--- NOTE | 2022-02-05 10:02 | Pharmacy Report ---
Pharmacy Glycemic Short Note 2 - Date of Service February 05, 2022 - Glycemic Short BSG Results (Last 24 hours): 02/04/22 02/04/22 02/04/22 12:08 17:10 20:29 Glucose POC Glucose 180 H 120 H 128 H 02/05/22 02/05/22 08:02 08:17 Glucose 132 H POC Glucose 133 H OUTPATIENT ANTIDIABETIC REGIMEN: * Toujeo 33 units SQ Daily * A1c 7.6% (01/26/22) -- unreliable in the setting of ESRD on HD ASSESSMENT: 02/05/22: * BSGs reasonably well-controlled yesterday, ranging 120-180 mg/dL w/ fasting BSG this morning of 133 mg/dL * Received 28 units of insulin (6 units of basal and 22 units of prandial/correctional bolus) * Will continue with increased basal and maintain current Novolog parameters * Hemodialysis scheduled for tomorrow (02/06/22) 02/01/22: * Pt was NPO yesterday for procedure in the OR. He declined receiving any basal/bolus insulin during the time in which he was NPO. BSGs remained fairly stable. * Pt is scheduled to receive HD today. * No changes required at this time. Will continue to follow. 01/30 * BSGs very well-controlled yesterday, ranging 117-144 mg/dL w/ fasting BSG of 123 mg/dL this morning * Received 13 units of insulin (5 units of basal and 8 units of bolus) * Will continue yesterday's AM basal dose with possible scale this evening * Hemodialysis scheduled for today * Insulin requirements below reported outpatient ones, will 01/26 * 51 yo male, admitted with osteomyelitis of right foot on IV Zosyn and Daptomycin, PMH of ESRD on MWF dialysis, chronic respiratory failure on 4 L of oxygen at home, Type 2 diabetes on 33 units daily of Toujeo, HTN, AF, and pacemaker placement (1 week ago). * Patient refused HS dose of basal insulin ordered last night by admitting provider, received 1 unit of NovoLog correctional insulin, euglycemic this m orn. * Patient managed on basal insulin only at home, will begin Lantus at about half of home basal dose, and use NovoLog for correctional and prandial insulin while inpatient. PLAN FOR INPATIENT GLYCEMIC CONTROL: * Basal insulin * Lantus 6 units SQ daily * Bolus insulin * NovoLog per scale ACHS or Q6hrs while NPO * Goal Range: Low 110 mg/dL - High 140 mg/dL * Correction Factor: 25 mg/dL/unit * Nutritional / Prandial insulin per carb ratio of 1 unit per 8 grams CHO consumed
--- NOTE | 2022-02-05 11:26 | Nephrology Progress Note ---
Date of Service February 05, 2022 Assessment & Plan (1) End-stage renal disease on hemodialysis: (2) Anemia of chronic disease: (3) Hyperphosphatemia: (4) Acute osteomyelitis of right foot: Plan 51-year-old male with ESRD on HD MWF, chronic hypoxemic respiratory failure secondary to restrictive lung disease and pulmonary hypertension on 4 L of oxygen at home, DM, HTN Admitted with right foot infection and osteomyelitis status post metatarsal resection and closure of the wound. currently awaiting placement at [facility]. Doing well, electrolyte, volume status acceptable. Blood pressure has been quite variable, mostly high but is reluctant to make any changes in his an tihypertensive medication at this time. -- scheduled for dialysis on Sunday. -- start on phosphate binder with meal, continue on renal vitamin daily. -- Epogen 4000 units with HD tomorrow. -- Dose medications for a GFR less than 10, left arm nephrology precaution. Will follow. Admission and Anticipated Discharge Date Admission Date: January 25, 2022 Lanie Davis was seen and evaluated in his room this morning. Denies any specific symptoms. Currently electrolyte, volume status acceptable. No shortness of breath or chest pain. Blood pressure fair. Review of Systems Review of Systems: Detailed review of system was otherwise unremarkable. Physical Exam Constitutional: WD/WN, vitals as above no acute distress Eyes: + anicteric sclerae ENMT: Ears: no hearing impairment Respiratory: Auscultation: lungs clear to auscultation bilaterally Cardiovascular: RRR, no murmur, no edema Neurologic: no focal motor deficits and not confused Psychiatric: Orientation: alert and oriented x 3 Results & Data ([facility]) Vital Signs (Past 12 Hours) Vital Signs Temp Pulse Resp BP Pulse Ox O2 Del Method O2 Flow Rate 02/05/22 08:30 Nasal Cannula 4 02/05/22 07:00 36.9 C 70 16 142/88 H 99 Nasal Cannula 4 PG Care Time/CCT Total # of Minutes Spent Total Time Spent with Patient: Total time spent is greater than 50% in coordination of care (as documented) at patient's floor/unit and/or counseling patient: Coding Level of Care Code 89229 Subseq Hosp Care Lvl 3 Diagnoses End-stage renal disease on hemodialysis N18.6; Z99.2 Anemia of chronic disease D63.8 Hyperphosphatemia E83.39 Acute osteomyelitis of right foot M86.171
[2022-02-05] MEDS: SEVELAMER HCL 800 MG TABLET PO SCH ×3 (13:18→13:21)
--- NOTE | 2022-02-05 15:25 | Billing Data ---
Date of Service February 05, 2022 Coding Level of Care Code 84983 Subseq Hosp Care Lvl 2
[2022-02-05] MEDS: CIPROFLOXACIN 500 MG TAB PO SCH (20:18)
[2022-02-05] MEDS: ATORVASTATIN 40 MG TAB PO SCH (20:18)
--- NOTE | 2022-02-05 22:46 | Orthopedic Progress Note ---
Date of Service February 05, 2022 Assessment & Plan (1) Diabetic infection of right foot: Plan: Patient seen, evaluated, and treated. Dry sterile dressing changed with out incident. Will continue to change while in house. (2) Acute osteomyelitis of right foot: Admission and Anticipated Discharge Date Admission Date: January 25, 2022 Subjective Patient seen at bedside in no distress. Patient is status post day 5 tertiary closure DOS 01/31/22. He has no complaints. Review of Systems Review of Systems: All systems reviewed & are unremarkable except as noted in HPI & below Physical Exam Physical Exam: Dressing clean, dry, and intact. Sutures intact. Constitutional: WD/WN, vitals as above Skin: Skin well coapted. Neurologic: Epicritic sensation intact. Results & Data ([facility]) Vital Signs (Past 12 Hours) Vital Signs Temp Pulse Resp BP Pulse Ox O2 Del Method O2 Flow Rate 02/05/22 20:00 Nasal Cannula 4 02/05/22 19:14 36.6 C 70 18 122/75 99 Nasal Cannula 4 02/05/22 14:44 36.6 C 71 16 145/83 H 99 Nasal Cannula 4
--- NOTE | 2022-02-06 07:52 | Hospitalist Progress Note ---
Date of Service February 06, 2022 Assessment & Plan (1) Acute osteomyelitis of right foot: Plan: Patient is a 51-year-old male with past medical history of ESRD on HD MWF, chronic hypoxemic respiratory failure secondary to restrictive lung disease and pulmonary hypertension on 4 L of oxygen at home, type 2 diabetes on 33 units daily of Toujeo, hypertension, atrial fibrillation, and pacemaker placement (see insertion 1 week ago) coming into the hospital for evaluation of a right foot infection which has since been treated with antibiotics and metatarsal resection with subsequent closure of wound awaiting placement at [facility]. -Per case management, [facility] expects a dialysis bed to be available by the end of this week. Acute osteomyelitis of right foot MRI of right foot could not be completed due to recent pacemaker placement. ESR and CRP suggestive of active osteomyelitis infection. Underwent metatarsal resection. Wound culture grew pseudomonas, cutibacterium acnes from resection culture. Started on Zosyn and daptomycin then transitioned to ciprofloxacin with renal dosing /2 to diarrhea - c. dif negative. Treat for 6-8 weeks total - Start: 01/25. End 03/22. Vascular surgery unable to offer surgical management as duplex US LE showedfindings of peripheral vascular disease with no sonographic evidence of high-grade stenosis or focal vessel cut off through the arteries of the right or left lower extremity. -Continue cipro with renal dosing for 6-8 weeks total of abx - start 01/25 end 03/22 -s/p 2nd Metatarsal Resection on right on 01/27 and closure of wound on 01/31 with podiatry Ulcer of extremity due to chronic venous insufficiency: See plan above Elevated troponin: Elevated troponin on admission= 129, repeat 120. Denies chest pain, ECG without ischemic changes -> likely secondary to ESRD. End-stage renal disease on hemodialysis: - MWF hemodialysis -Consult nephrology, appreciate recommendations -Avoid nephrotoxic agents PAF (paroxysmal atrial fibrillation): Eliquis 5 mg BID. Amiodarone held on admission, looking back on cardiology notes, should remain on amiodarone Obstructive sleep apnea Moderate pulmonary hypertension: Stable, continue CPAP at night Restrictive lung disease secondary to obesity: Continue CPAP at night as above. Continue Breo Ellipta, albuterol as needed, montelukast Chronic diastolic heart failure: HFrEF 35%-40% Not currently on beta-ales[place]. Most recent echo on 01/08/2022 at [facility] consistent of left ventricular size moderately dilated, left ventricular hypertrophy, diffuse hypokinesis, left ventricular function mild to moderately decreased, ejection fraction of 35 to 40%. Consider starting GDMT outpatient with beta- alesia, spironolactone, SGLT2 etc. GERD (gastroesophageal reflux disease): Continue omeprazole Hyperlipidemia: Continue statin CAD (coronary artery disease): Continue aspirin, Plavix, ranolazine Diabetes mellitus type 2, uncontrolled: Last A1c on 12/29 was 7.1; 7.6 on admission. Typically takes 33 units of Toujeo daily. Basal bolus with sliding scale and carb consistent diet while in hospital. Hypertension: Continue hydralazine twice daily Orthostatic hypotension: Typically receives midodrine 3 times daily but will hold for now if he becomes hypotensive, consider restarting Dispo: med/surg, awaiting HD bed at [facility] DVT ppx: Plavix Code: full FENGI: Carb consistent, dialysis (2) Ulcer of extremity due to chronic venous insufficiency: (3) Elevated troponin: (4) End-stage renal disease on hemodialysis: (5) PAF (paroxysmal atrial fibrillation): (6) Moderate pulmonary hypertension: (7) GERD (gastroesophageal reflux disease): (8) Restrictive lung disease secondary to obesity: (9) Chronic diastolic heart failure: (10) Obstructive sleep apnea: (11) Hyperlipidemia: (12) CAD (coronary artery disease): (13) Diabetes mellitus type 2, uncontrolled: (14) Hypertension: (15) Orthostatic hypotension: Admission and Anticipated Discharge Date Admission Date: January 25, 2022 Supervising Physician Co-Signing Physician Notes Resident Physician Supervision Note: I independently interviewed and examined the patient and verified the mata histo ry and physical, reviewed labs and image studies and agree with resident findings and care plan. Subjective Patient was seen and examined at bedside while undergoing dialysis treatment. Patient states he is doing well. Has his right foot bandaged, states he is not having any pain in it currently. Denies chest pain/cough/fever/chills. Review of Systems Review of Systems: As per HPI Physical Exam Constitutional: WD/WN, vitals as above Eyes: PERRL, conjunctivae normal, anicteric sclerae Neck: trachea midline, no thyromegaly Respiratory: normal respiratory effort, lungs clear to auscultation Cardiovascular: RRR, no murmur, no edema Gastrointestinal (Abdomen): normal bowel sounds, soft, nontender, no hepatosplenomegaly Psychiatric: A+Ox3, euthymic affect Results & Data Results & Data ([facility]) Vital Signs (Past 12 Hours) Vital Signs O2 Del Method O2 Flow Rate 02/05/22 20:00 Nasal Cannula 4 Resident Activity Tracking Resident Involvement: Resident Care Provided Care Provided: Adult Hospital Medicine (1) CAD (coronary artery disease) Associated angina: without angina Coronary Disease-Associated Artery/Lesion type: [place] artery [place] vs. transplanted heart: [place] heart Qualified Code(s): I25.10 - Atherosclerotic heart disease of [place] coronary artery without angina pectoris (2) Diabetes mellitus type 2, uncontrolled Glycemic state: with hyperglycemia Qualified Code(s): E11.65 - Type 2 diabetes mellitus with hyperglycemia
[2022-02-06] MEDS: AMIODARONE 200 MG TAB PO SCH (08:39)
[2022-02-06] MEDS: SEVELAMER HCL 800 MG TABLET PO SCH ×3 (08:39→18:40)
[2022-02-06] MEDS: NEPHROCAPS PO SCH (08:40)
[2022-02-06] MEDS: FLUTICASONE/VILANTEROL 100/25MCG 14 PUFFS/INHALER INH SCH (08:40)
[2022-02-06] MEDS: hydrALAZINE HCL 25 MG TAB PO SCH ×2 (08:40→19:39)
[2022-02-06] MEDS: ADVANCED PROBIOTIC 1250 MG CAPSULE PO SCH (08:40)
[2022-02-06] MEDS: ASPIRIN 81 MG ECTAB PO SCH (08:40)
[2022-02-06] MEDS: CLOPIDOGREL BISULFATE 75 MG TAB PO SCH (08:40)
[2022-02-06] MEDS: PANTOprazole 40 MG TAB PO SCH (08:40)
[2022-02-06] MEDS: APIXABAN 5 MG TABLET PO SCH ×2 (08:40→19:38)
[2022-02-06] MEDS: CHOLECALCIFEROL 1,000 UNITS 25 MCG TAB PO SCH (08:40)
[2022-02-06] MEDS: MONTELUKAST SODIUM 10 MG TABLET PO SCH (08:40)
[2022-02-06] MEDS: RANOLAZINE 500 MG ER TAB PO SCH ×2 (08:41→19:38)
[2022-02-06] MEDS: INSULIN ASPART PER UNIT SC SCH ×4 (08:49→22:01)
[2022-02-06] MEDS: LANTUS PER UNIT CHARGE SQ SCH (08:49)
[2022-02-06 08:50] LABS: Hematocrit (blood only) 32.5 % (40.1-51.0); Hemoglobin 10.5 g/dl (14.0-18.0); Mean Corpuscular Hemoglobin 30.1 pg (25.0-34.0); Mean Corpuscular Hgb Conc 32.3 g/dL (32.0-36.0); Mean Corpuscular Volume 93.1 fL (80.0-100.0); Mean Platelet Volume 11.4 fL (9.4-12.4); Platelet Count 204 K/uL (130-400); RDW Coefficient of Variation 17.5 % (11.5-14.5); RDW Standard Deviation 58.6 fL (36.4-46.3); Red Blood Count 3.49 M/uL (4.63-6.08); White Blood Count 10.19 K/ul (4.8-10.8)
[2022-02-06] MEDS ORDERED: EPOETIN ALFA 4,000 UNIT/ML VIAL IV ONE (09:00)
[2022-02-06 09:14] LABS: Albumin Globulin Ratio 1.2 (0.9-2); Albumin Level 3.9 gm/dl (3.4-5.0); BUN Creatinine Ratio 4.5 (10-20); Bilirubin,Total 0.8 mg/dl (0.2-1.0); Calcium 8.6 mg/dl (8.5-10.1); Creatinine Clr Calc Pharmacy 9.4 ml/min; Est GFR (African American) 5.7 ml/min; Globulin 3.2 gm/dl (2.5-4.0); Potassium 4.1 mmol/L (3.5-5.1); Total Protein 7.1 gm/dl (6.0-8.3)
--- NOTE | 2022-02-06 10:07 | Nephrology Progress Note ---
Date of Service February 06, 2022 Assessment & Plan (1) End-stage renal disease on hemodialysis: (2) Anemia of chronic disease: (3) Hyperphosphatemia: (4) Acute osteomyelitis of right foot: Plan 51-year-old male with ESRD on HD MWF, chronic hypoxemic respiratory failure secondary to restrictive lung disease and pulmonary hypertension on 4 L of oxygen at home, DM, HTN Admitted with right foot infection and osteomyelitis status post metatarsal resection and closure of the wound. currently awaiting placement at [facility]. Doing well, electrolyte, volume status acceptable. Blood pressure has been quite variable. -- tolerating HD. aim for 2 L UF -- on phosphate binder with meal, continue on renal vitamin daily. -- Epogen 4000 units with HD today. -- Dose medications for a GFR less than 10, left arm nephrology precaution. Will follow. Admission and Anticipated Discharge Date Admission Date: January 25, 2022 Lanie Davis was seen and evaluated during HD this morning. Denies any specific symptoms. Currently electrolyte, volume status acceptable. No shortness of breath or chest pain. Blood pressure fair. Review of Systems Review of Systems: Detailed review of system was otherwise unremarkable. Physical Exam Constitutional: WD/WN, vitals as above no acute distress Eyes: + anicteric sclerae ENMT: Ears: no hearing impairment Respiratory: Auscultation: lungs clear to auscultation bilaterally Cardiovascular: RRR, no murmur, no edema Neurologic: no focal motor deficits and not confused Psychiatric: Orientation: alert and oriented x 3 Results & Data ([facility]) Vital Signs (Past 12 Hours) Vital Signs Temp Pulse Resp BP BP Pulse Ox O2 Del Method 02/06/22 09:30 128/72 02/06/22 09:10 153/92 H 02/06/22 09:00 36.6 C 70 02/06/22 07:50 36.8 C 71 18 168/103 H 98 Nasal Cannula O2 Flow Rate 02/06/22 09:30 02/06/22 09:10 02/06/22 09:00 02/06/22 07:50 4 PG Care Time/CCT Total # of Minutes Spent Total Time Spent with Patient: Total time spent is greater than 50% in coordination of care (as documented) at patient's floor/unit and/or counseling patient: Coding Level of Care Code 27926 Subseq Hosp Care Lvl 3 Diagnoses End-stage renal disease on hemodialysis N18.6; Z99.2 Anemia of chronic disease D63.8 Hyperphosphatemia E83.39 Acute osteomyelitis of right foot M86.171
[2022-02-06] MEDS: CIPROFLOXACIN 500 MG TAB PO SCH (19:38)
[2022-02-06] MEDS: ATORVASTATIN 40 MG TAB PO SCH (19:38)
--- NOTE | 2022-02-07 07:37 | Hospitalist Progress Note ---
Date of Service February 07, 2022 Assessment & Plan (1) Acute osteomyelitis of right foot: Plan: Patient is a 51-year-old male with past medical history of ESRD on HD MWF, chronic hypoxemic respiratory failure secondary to restrictive lung disease and pulmonary hypertension on 4 L of oxygen at home, type 2 diabetes on 33 units daily of Toujeo, hypertension, atrial fibrillation, and pacemaker placement (see insertion 1 week ago) coming into the hospital for evaluation of a right foot infection which has since been treated with antibiotics and metatarsal resection with subsequent closure of wound awaiting placement at [facility]. -Per case management, [facility] expects a dialysis bed to be available by the end of this week. Now reaching out to [place] for possible availability. Acute osteomyelitis of right foot MRI of right foot could not be completed due to recent pacemaker placement. ESR and CRP suggestive of active osteomyelitis infection. Underwent metatarsal resection. Wound culture grew pseudomonas, cutibacterium acnes from resection culture. Started on Zosyn and daptomycin then transitioned to ciprofloxacin with renal dosing / to diarrhea - c. dif negative. Formed bowel movement today. Treat for 6-8 weeks total - Start: 01/25. End 03/22. Vascular surgery unable to offer surgical management as duplex US LE showedfindings of peripheral vascular disease with no sonographic evidence of high-grade stenosis or focal vessel cut off through the arteries of the right or left lower extremity. -Continue cipro with renal dosing for 6-8 weeks total of abx - start 01/25 end 03/22 -s/p 2nd Metatarsal Resection on right on 01/27 and closure of wound on 01/31 with podiatry Ulcer of extremity due to chronic venous insufficiency: See plan above Elevated troponin: Elevated troponin on admission= 129, repeat 120. Denies chest pain, ECG without ischemic changes -> likely secondary to ESRD. End-stage renal disease on hemodialysis: - MWF hemodialysis -Nephrology following -Avoid nephrotoxic agents PAF (paroxysmal atrial fibrillation): Eliquis 5 mg BID. Amiodarone held on admission, looking back on cardiology notes, should remain on amiodarone Obstructive sleep apnea Moderate pulmonary hypertension: Stable, continue CPAP at night Restrictive lung disease secondary to obesity: Continue CPAP at night as above. Continue Breo Ellipta, albuterol as needed, montelukast Chronic diastolic heart failure: HFrEF 35%-40% Not currently on beta-alesia. Most recent echo on 01/08/2022 at [facility] consistent of left ventricular size moderately dilated, left ventricular hypertrophy, diffuse hypokinesis, left ventricular function mild to moderately decreased, ejection fraction of 35 to 40%. Consider starting GDMT outpatient with beta- alesia, spironolactone, SGLT2 etc. GERD (gastroesophageal reflux disease): Continue omeprazole Hyperlipidemia: Continue statin CAD (coronary artery disease): Continue aspirin, Plavix, ranolazine Diabetes mellitus type 2, uncontrolled: Last A1c on 12/29 was 7.1; 7.6 on admission. Typically takes 33 units of Toujeo daily. Basal bolus with sliding scale and carb consistent diet while in hospital. Hypertension: Continue hydralazine twice daily Orthostatic hypotension: Typically receives midodrine 3 times daily but will hold for now if he becomes hypotensive, consider restarting Dispo: [facility]urg[facility] DVT ppx: Plavix Code: full FENGI: Carb consistent, dialysis (2) Ulcer of extremity due to chronic venous insufficiency: (3) Elevated troponin: (4) End-stage renal disease on hemodialysis: (5) PAF (paroxysmal atrial fibrillation): (6) Moderate pulmonary hypertension: (7) GERD (gastroesophageal reflux disease): (8) Restrictive lung disease secondary to obesity: (9) Chronic diastolic heart failure: (10) Obstructive sleep apnea: (11) Hyperlipidemia: (12) CAD (coronary artery disease): (13) Diabetes mellitus type 2, uncontrolled: (14) Hypertension: (15) Orthostatic hypotension: Admission and Anticipated Discharge Date Admission Date: January 25, 2022 Supervising Physician Co-Signing Physician Notes Resident Physician Supervision Note: I independently interviewed and examined the patient and verified the mata history and physical, reviewed labs and image studies and agree with resident findings and care plan. Subjective Patient was seen and examined at bedside. Ryan states he is doing well today, is seated upright at bedside during encounter. States he is looking forward to [place] couch a shower later. Denies any current right foot pain. Denies chest pain, no increased shortness of breath (on oxygen at baseline), no fever/chills/body aches. Review of Systems Review of Systems: As per HPI Physical Exam Constitutional: WD/WN, vitals as above Eyes: PERRL, conjunctivae normal, anicteric sclerae Neck: trachea midline, no thyromegaly Respiratory: normal respiratory effort, lungs clear to auscultation Cardiovascular: RRR, no murmur, no edema Gastrointestinal (Abdomen): normal bowel sounds, soft, nontender, no hepatosplenomegaly Skin: right foot bandaged Psychiatric: A+Ox3, euthymic affect Results & Data Results & Data ([facility]) Vital Signs (Past 12 Hours) Vital Signs Pulse BP Pulse Ox O2 Del Method O2 Flow Rate 02/07/22 03:00 70 126/73 100 CPAP 02/06/22 20:00 Nasal Cannula, CPAP 4 Resident Activity Tracking Resident Involvement: Resident Care Provided Care Provided: Adult Hospital Medicine (1) CAD (coronary artery disease) Associated angina: without angina Coronary Disease-Associated Artery/Lesion type: [place] artery [place] vs. transplanted heart: [place] heart Qualified Code(s): I25.10 - Atherosclerotic heart disease of [place] coronary artery without angina pectoris (2) Diabetes mellitus type 2, uncontrolled Glycemic state: with hyperglycemia Qualified Code(s): E11.65 - Type 2 diabetes mellitus with hyperglycemia
[2022-02-07 09:14] LABS: Hematocrit (blood only) 32.7 % (40.1-51.0); Hemoglobin 10.5 g/dl (14.0-18.0); Mean Corpuscular Hemoglobin 30.4 pg (25.0-34.0); Mean Corpuscular Hgb Conc 32.1 g/dL (32.0-36.0); Mean Corpuscular Volume 94.8 fL (80.0-100.0); Platelet Count 171 K/uL (130-400); RDW Coefficient of Variation 17.5 % (11.5-14.5); Red Blood Count 3.45 M/uL (4.63-6.08); White Blood Count 8.65 K/ul (4.8-10.8)
--- NOTE | 2022-02-07 09:19 | Pharmacy Report ---
Pharmacy Glycemic Short Note 2 - Date of Service February 07, 2022 - Glycemic Short BSG Results (Last 24 hours): 02/06/22 02/06/22 02/06/22 08:05 14:06 17:14 Glucose 174 H POC Glucose 116 H 136 H 02/06/22 02/07/22 21:03 08:39 Glucose POC Glucose 171 H 172 H OUTPATIENT ANTIDIABETIC REGIMEN: * Toujeo 33 units SQ Daily * A1c 7.6% (01/26/22) -- unreliable in the setting of ESRD on HD ASSESSMENT: 02/07/22: * BSG ranging 120-188 mg/dL w/ fasting BSG this morning of 172 mg/dL - above goal * Received 14 units of insulin yesterday (6 units of basal) * Increased basal by 1 unit and maintained current NovoLog parameters (CF 25 and CR 8 with goal 110-140) 02/05/22: * BSGs reasonably well-controlled yesterday, ranging 120-180 mg/dL w/ fasting BSG this morning of 133 mg/dL * Received 28 units of insulin (6 units of basal and 22 units of prandial/correctional bolus) * Will continue with increased basal and maintain current Novolog parameters * Hemodialysis scheduled for tomorrow (02/06/22) 02/01/22: * Pt was NPO yesterday for procedure in the OR. He declined receiving any basal/bolus insulin during the time in which he was NPO. BSGs remained fairly stable. * Pt is scheduled to receive HD today. * No changes required at this time. Will continue to follow. 01/30 * BSGs very well-controlled yesterday, ranging 117-144 mg/dL w/ fasting BSG of 123 mg/dL this morning * Received 13 units of insulin (5 units of basal and 8 units of bolus) * Will continue yesterday's AM basal dose with possible scale this evening * Hemodialysis scheduled for today * Insulin requirements below reported outpatient ones, will 01/26 * 51 yo male, admitted with osteomyelitis of right foot on IV Zosyn and Daptomycin, PMH of ESRD on MWF dialysis, chronic respiratory failure on 4 L of oxygen at home, Type 2 diabetes on 33 units daily of Toujeo, HTN, AF, and pacemaker placement (1 week ago). * Patient refused HS dose of basal insulin ordered last night by admitting provider, received 1 unit of NovoLog correctional insulin, euglycemic this morning. * Patient managed on basal insulin only at home, will begin Lantus at about half of home basal dose, and use NovoLog for correctional and prandial insulin while inpatient. PLAN FOR INPATIENT GLYCEMIC CONTROL: * Basal insulin * Lantus 6 units SQ daily * Bolus insulin * NovoLog per scale ACHS or Q6hrs while NPO * Goal Range: Low 110 mg/dL - High 140 mg/dL * Correction Factor: 25 mg/dL/unit * Nutritional / Prandial insulin per carb ratio of 1 unit per 8 grams CHO consumed
[2022-02-07] MEDS: SEVELAMER HCL 800 MG TABLET PO SCH ×3 (09:37→17:20)
[2022-02-07] MEDS: INSULIN ASPART PER UNIT SC SCH ×4 (09:37→21:49)
[2022-02-07] MEDS: ADVANCED PROBIOTIC 1250 MG CAPSULE PO SCH (09:38)
[2022-02-07] MEDS: FLUTICASONE/VILANTEROL 100/25MCG 14 PUFFS/INHALER INH SCH (09:40)
[2022-02-07] MEDS: NEPHROCAPS PO SCH (09:40)
[2022-02-07] MEDS: CLOPIDOGREL BISULFATE 75 MG TAB PO SCH (09:40)
[2022-02-07] MEDS: APIXABAN 5 MG TABLET PO SCH ×2 (09:40→21:53)
[2022-02-07] MEDS: PANTOprazole 40 MG TAB PO SCH (09:40)
[2022-02-07] MEDS: CHOLECALCIFEROL 1,000 UNITS 25 MCG TAB PO SCH (09:40)
[2022-02-07] MEDS: MONTELUKAST SODIUM 10 MG TABLET PO SCH (09:40)
[2022-02-07] MEDS: RANOLAZINE 500 MG ER TAB PO SCH ×2 (09:40→21:54)
[2022-02-07] MEDS: AMIODARONE 200 MG TAB PO SCH (09:40)
[2022-02-07] MEDS: ASPIRIN 81 MG ECTAB PO SCH (09:40)
[2022-02-07] MEDS: hydrALAZINE HCL 25 MG TAB PO SCH ×2 (09:40→21:53)
[2022-02-07] MEDS: LANTUS PER UNIT CHARGE SQ SCH ×2 (09:41→09:47)
--- NOTE | 2022-02-07 10:09 | Nephrology Progress Note ---
Date of Service February 07, 2022 Assessment & Plan (1) End-stage renal disease on hemodialysis: (2) Anemia of chronic disease: (3) Hyperphosphatemia: (4) Acute osteomyelitis of right foot: Plan 51-year-old male with ESRD on HD MWF, chronic hypoxemic respiratory failure secondary to restrictive lung disease and pulmonary hypertension on 4 L of oxygen at home, DM, HTN Admitted with right foot infection and osteomyelitis status post metatarsal resection and closure of the wound. currently awaiting placement at [facility]. Doing well, electrolyte, volume status acceptable. Blood pressure has been quite variable. had dialysis yesterday, had 2 L UF. -- continue on phosphate binder with meal, continue on renal vitamin daily. -- Epogen 4000 units given on 02/06/2022 -- Dose medications for a GFR less than 10, left arm nephrology precaution. Will follow. Admission and Anticipated Discharge Date Admission Date: January 25, 2022 Lanie Davis was seen and evaluated this morning. Denies any specific symptoms. Currently electrolyte, volume status acceptable. No shortness of breath or chest pain. Blood pressure fair. Review of Systems Review of Systems: Detailed review of system was otherwise unremarkable. Physical Exam Constitutional: WD/WN, vitals as above no acute distress Eyes: + anicteric sclerae ENMT: Ears: no hearing impairment Respiratory: Auscultation: lungs clear to auscultation bilaterally Cardiovascular: RRR, no murmur, no edema Neurologic: no focal motor deficits and not confused Psychiatric: Orientation: alert and oriented x 3 Results & Data ([facility]) Vital Signs (Past 12 Hours) Vital Signs Temp Pulse Resp BP Pulse Ox O2 Del Method O2 Flow Rate 02/07/22 08:09 36.4 C L 70 18 155/83 H 99 Nasal Cannula 4 02/07/22 07:52 Nasal Cannula 4 02/07/22 03:00 70 126/73 100 CPAP PG Care Time/CCT Total # of Minutes Spent Total Time Spent with Patient: Total time spent is greater than 50% in coordination of care (as documented) at patient's floor/unit and/or counseling patient: Coding Level of Care Code 20508 Subseq Hosp Care Lvl 2 Diagnoses End-stage renal disease on hemodialysis N18.6; Z99.2 Anemia of chronic disease D63.8 Hyperphosphatemia E83.39 Acute osteomyelitis of right foot M86.171
[2022-02-07 10:11] LABS: Albumin Globulin Ratio 1.2 (0.9-2); Albumin Level 3.9 gm/dl (3.4-5.0); BUN Creatinine Ratio 4.2 (10-20); Creatinine Clr Calc Pharmacy 13.2 ml/min; Est GFR (African American) 8.7 ml/min; Est GFR (Non-African American) 7.5 ml/min; Globulin 3.3 gm/dl (2.5-4.0); Potassium 3.5 mmol/L (3.5-5.1); Total Protein 7.2 gm/dl (6.0-8.3)
[2022-02-07] MEDS: ONDANSETRON INJ 2 MG/ML 2 ML VIAL IV PRN (12:56)
[2022-02-07] MEDS: CIPROFLOXACIN 500 MG TAB PO SCH (21:54)
[2022-02-07] MEDS: ATORVASTATIN 40 MG TAB PO SCH (21:54)
[2022-02-08 06:55] LABS: Hematocrit (blood only) 29.3 % (40.1-51.0); Hemoglobin 9.6 g/dl (14.0-18.0); Mean Corpuscular Hemoglobin 30.6 pg (25.0-34.0); Mean Corpuscular Hgb Conc 32.8 g/dL (32.0-36.0); Mean Corpuscular Volume 93.3 fL (80.0-100.0); Mean Platelet Volume 10.9 fL (9.4-12.4); Platelet Count 148 K/uL (130-400); RDW Coefficient of Variation 17.3 % (11.5-14.5); RDW Standard Deviation 59.1 fL (36.4-46.3); Red Blood Count 3.14 M/uL (4.63-6.08); White Blood Count 8.42 K/ul (4.8-10.8)
[2022-02-08 07:39] LABS: BUN Creatinine Ratio 4.7 (10-20); Calcium 8.1 mg/dl (8.5-10.1); Creatinine Clr Calc Pharmacy 10.7 ml/min; Est GFR (African American) 6.8 ml/min; Est GFR (Non-African American) 5.9 ml/min; Potassium 3.5 mmol/L (3.5-5.1)
[2022-02-08] MEDS: SEVELAMER HCL 800 MG TABLET PO SCH ×3 (08:09→17:29)
[2022-02-08] MEDS ORDERED: EPOETIN ALFA 10,000 UNITS/ML VIAL IV STA (10:44)
--- NOTE | 2022-02-08 10:44 | Nephrology Progress Note ---
Date of Service February 08, 2022 Assessment & Plan (1) End-stage renal disease on hemodialysis: (2) Anemia of chronic disease: (3) Hyperphosphatemia: (4) Acute osteomyelitis of right foot: Plan 51-year-old male with ESRD on HD MWF, chronic hypoxemic respiratory failure secondary to restrictive lung disease and pulmonary hypertension on 4 L of oxygen at home, DM, HTN admitted with right foot infection and osteomyelitis status post metatarsal resection and closure of the wound. Currently awaiting placement at [facility], possible DC on 02/10/22. . Doing well, electrolyte, volume status acceptable. Blood pressure has been quite variable. -- tolerating HD now -- continue on phosphate binder with meal, continue on renal vitamin daily. -- Epogen 65886 units today. -- Dose medications for a GFR less than 10, left arm nephrology precaution. Will follow. Admission and Anticipated Discharge Date Admission Date: January 25, 2022 Subjective Ryan was seen and evaluated during HD this morning. Denies any specific symptoms. Currently electrolyte, volume status acceptable. Blood pressure fair. Review of Systems Review of Systems: Detailed review of system was otherwise unremarkable. Physical Exam Constitutional: WD/WN, vitals as above no acute distress Eyes: + anicteric sclerae ENMT: Ears: no hearing impairment Respiratory: Auscultation: lungs clear to auscultation bilaterally Cardiovascular: RRR, no murmur, no edema Extremities: + AV fistula (+ thrill and bruit) Neurologic: no focal motor deficits and not confused Psychiatric: Orientation: alert and oriented x 3 Results & Data ([facility]) Vital Signs (Past 12 Hours) Vital Signs Temp Pulse Pulse Pulse Resp BP BP 02/08/22 10:30 70 150/83 H 02/08/22 10:00 70 141/84 H 02/08/22 09:30 71 119/75 02/08/22 09:08 85 152/85 H 02/08/22 09:01 36.6 C 70 02/08/22 08:52 02/08/22 08:18 36.6 C 71 19 172/93 H 02/07/22 23:59 36.8 C 69 20 149/73 H Pulse Ox O2 Del Method O2 Flow Rate 02/08/22 10:30 02/08/22 10:00 02/08/22 09:30 02/08/22 09:08 02/08/22 09:01 02/08/22 08:52 Nasal Cannula 4 02/08/22 08:18 99 Nasal Cannula 4 02/07/22 23:59 99 BiPAP 4 PG Care Time/CCT Total # of Minutes Spent Total Time Spent with Patient: Total time spent is greater than 50% in coordination of care (as documented) at patient's floor/unit and/or counseling patient: Coding Level of Care Code 94361 Subseq Hosp Care Lvl 3 Diagnoses End-stage renal disease on hemodialysis N18.6; Z99.2 Anemia of chronic disease D63.8 Hyperphosphatemia E83.39 Acute osteomyelitis of right foot M86.171
[2022-02-08] MEDS: INSULIN ASPART PER UNIT SC SCH ×4 (11:55→21:17)
[2022-02-08] MEDS: AMIODARONE 200 MG TAB PO SCH (13:50)
[2022-02-08] MEDS: APIXABAN 5 MG TABLET PO SCH ×2 (13:50→20:43)
[2022-02-08] MEDS: ASPIRIN 81 MG ECTAB PO SCH (13:50)
[2022-02-08] MEDS: hydrALAZINE HCL 25 MG TAB PO SCH ×2 (13:51→20:43)
[2022-02-08] MEDS: RANOLAZINE 500 MG ER TAB PO SCH ×2 (13:51→20:44)
[2022-02-08] MEDS: ADVANCED PROBIOTIC 1250 MG CAPSULE PO SCH (13:51)
[2022-02-08] MEDS: CHOLECALCIFEROL 1,000 UNITS 25 MCG TAB PO SCH (13:51)
[2022-02-08] MEDS: FLUTICASONE/VILANTEROL 100/25MCG 14 PUFFS/INHALER INH SCH (13:51)
[2022-02-08] MEDS: CLOPIDOGREL BISULFATE 75 MG TAB PO SCH (13:51)
[2022-02-08] MEDS: NEPHROCAPS PO SCH (13:51)
[2022-02-08] MEDS: PANTOprazole 40 MG TAB PO SCH (13:51)
[2022-02-08] MEDS: MONTELUKAST SODIUM 10 MG TABLET PO SCH (13:51)
[2022-02-08] MEDS: LANTUS PER UNIT CHARGE SQ SCH (13:52)
[2022-02-08] MEDS: ACETAMINOPHEN 325 MG TAB PO PRN (17:37)
--- NOTE | 2022-02-08 18:31 | Hospitalist Progress Note ---
Date of Service February 08, 2022 Assessment & Plan (1) Acute osteomyelitis of right foot: Plan: Patient is a 51-year-old male with past medical history of ESRD on HD MWF, chronic hypoxemic respiratory failure secondary to restrictive lung disease and pulmonary hypertension on 4 L of oxygen at home, type 2 diabetes on 33 units daily of Toujeo, hypertension, atrial fibrillation, and pacemaker placement (see insertion 1 week ago) coming into the hospital for evaluation of a right foot infection which has since been treated with antibiotics and metatarsal resection with subsequent closure of wound awaiting placement at [facility]. -Per case management, [facility] expects a dialysis bed to be available by the end of this week. Now reaching out to [place] for possible availability. Acute osteomyelitis of right foot MRI of right foot could not be completed due to recent pacemaker placement. ESR and CRP suggestive of active osteomyelitis infection. Underwent metatarsal resection. Wound culture grew pseudomonas, cutibacterium acnes from resection culture. Started on Zosyn and daptomycin then transitioned to ciprofloxacin with renal dosing / to diarrhea - c. dif negative. Formed bowel movement today. Treat for 6-8 weeks total - Start: 01/25. End 03/22. Vascular surgery unable to offer surgical management as duplex US LE showedfindings of peripheral vascular disease with no sonographic evidence of high-grade stenosis or focal vessel cut off through the arteries of the right or left lower extremity. -Continue cipro with renal dosing for 6-8 weeks total of abx - start 01/25 end 03/22 -s/p 2nd Metatarsal Resection on right on 01/27 and closure of wound on 01/31 with podiatry -Consult placed to ID regarding cutibacterium acnes and coverage from current abx. Ulcer of extremity due to chronic venous insufficiency: See plan above Elevated troponin: Elevated troponin on admission= 129, repeat 120. Denies chest pain, ECG without ischemic changes -> likely secondary to ESRD. End-stage renal disease on hemodialysis: - MWF hemodialysis -Nephrology following -Avoid nephrotoxic agents PAF (paroxysmal atrial fibrillation): Eliquis 5 mg BID. Amiodarone held on admission, looking back on cardiology notes, should remain on amiodarone Obstructive sleep apnea Moderate pulmonary hypertension: Stable, continue CPAP at night Restrictive lung disease secondary to obesity: Continue CPAP at night as above. Continue Breo Ellipta, albuterol as needed, montelukast Chronic diastolic heart failure: HFrEF 35%-40% Not currently on beta-alesia. Most recent echo on 01/08/[address] [facility] consistent of left ventricular size moderately dilated, left ventricular hypertrophy, diffuse hypokinesis, left ventricular function mild to moderately decreased, ejection fraction of 35 to 40%. Consider starting GDMT outpatient with beta- alesia, spironolactone, SGLT2 etc. GERD (gastroesophageal reflux disease): Continue omeprazole Hyperlipidemia: Continue statin CAD (coronary artery disease): Continue aspirin, Plavix, ranolazine Diabetes mellitus type 2, uncontrolled: Last A1c on 12/29 was 7.1; 7.6 on admission. Typically takes 33 units of Toujeo daily. Basal bolus with sliding scale and carb consistent diet while in hospital. Hypertension: Continue hydralazine twice daily Orthostatic hypotension: Typically receives midodrine 3 times daily but will hold for now if he becomes hypotensive, consider restarting Dispo: med/surg, awaiting HD bed at [facility]rehab with dialysis bed DVT ppx: Plavix Code: full FENGI: Carb consistent, dialysis (2) Ulcer of extremity due to chronic venous insufficiency: (3) Elevated troponin: (4) End-stage renal disease on hemodialysis: (5) PAF (paroxysmal atrial fibrillation): (6) Moderate pulmonary hypertension: (7) GERD (gastroesophageal reflux disease): (8) Restrictive lung disease secondary to obesity: (9) Chronic diastolic heart failure: (10) Obstructive sleep apnea: (11) Hyperlipidemia: (12) CAD (coronary artery disease): (13) Diabetes mellitus type 2, uncontrolled: (14) Hypertension: (15) Orthostatic hypotension: Admission and Anticipated Discharge Date Admission Date: January 25, 2022 Supervising Physician Co-Signing Physician Notes Resident Physician Supervision Note: I independently interviewed and examined the patient and verified the mata history and physical, reviewed labs and image studies and agree with resident findings and care plan. Subjective Patient was seen and examined at bedside, undergoing dialysis [facility]. Denies chest pain, worsening shortness of breath, or diarrhea. Review of Systems Review of Systems: As per HPI Physical Exam Constitutional: WD/WN, vitals as above Eyes: PERRL, conjunctivae normal, anicteric sclerae Neck: trachea midline, no thyromegaly Respiratory: normal respiratory effort, lungs clear to auscultation Cardiovascular: RRR, no murmur, no edema Gastrointestinal (Abdomen): normal bowel sounds, soft, nontender, no hepatosplenomegaly Psychiatric: A+Ox3, euthymic affect Results & Data Results & Data ([facility]) Vital Signs (Past 12 Hours) Vital Signs Temp Pulse Pulse Pulse Resp BP BP 02/08/22 13:48 36.4 C L 70 18 169/80 H 02/08/22 13:14 36.7 C 70 157/77 H 02/08/22 13:00 156/87 H 02/08/22 12:30 70 156/87 H 02/08/22 12:00 70 158/80 H 02/08/22 11:30 70 162/86 H 02/08/22 11:00 70 152/82 H 02/08/22 10:30 70 150/83 H 02/08/22 10:00 70 141/84 H 02/08/22 09:30 71 119/75 02/08/22 09:08 85 152/85 H 02/08/22 09:01 36.6 C 70 02/08/22 08:52 02/08/22 08:18 36.6 C 71 19 172/93 H Pulse Ox O2 Del Method O2 Flow Rate 02/08/22 13:48 98 Nasal Cannula 4 02/08/22 13:14 02/08/22 13:00 02/08/22 12:30 02/08/22 12:00 02/08/22 11:30 02/08/22 11:00 02/08/22 10:30 02/08/22 10:00 02/08/22 09:30 02/08/22 09:08 02/08/22 09:01 02/08/22 08:52 Nasal Cannula 4 02/08/22 08:18 99 Nasal Cannula 4 Resident Activity Tracking Resident Involvement: Resident Care Provided Care Provided: Adult Hospital Medicine (1) CAD (coronary artery disease) Associated angina: without angina Coronary Disease-Associated Artery/Lesion t ype: [place] artery [place] vs. transplanted heart: [place] heart Qualified Code(s): I25.10 - Atherosclerotic heart disease of [place] coronary artery without angina pectoris (2) Diabetes mellitus type 2, uncontrolled Glycemic state: with hyperglycemia Qualified Code(s): E11.65 - Type 2 diabetes mellitus with hyperglycemia
[2022-02-08] MEDS: ATORVASTATIN 40 MG TAB PO SCH (20:43)
[2022-02-08] MEDS: CIPROFLOXACIN 500 MG TAB PO SCH (20:43)
--- NOTE | 2022-02-09 07:22 | Hospitalist Progress Note ---
Date of Service February 09, 2022 Assessment & Plan (1) Acute osteomyelitis of right foot: Plan: Patient is a 51-year-old male with past medical history of ESRD on HD MWF, chronic hypoxemic respiratory failure secondary to restrictive lung disease and pulmonary hypertension on 4 L of oxygen at home, type 2 diabetes on 33 units daily of Toujeo, hypertension, atrial fibrillation, and pacemaker placement (see insertion 1 week ago) coming into the hospital for evaluation of a right foot infection which has since been treated with antibiotics and metatarsal resection with subsequent closure of wound awaiting placement at [facility]. -Per case management, [facility] expects a dialysis bed to be available by the end of this week. Now reaching out to [place] for possible availability. Acute osteomyelitis of right foot MRI of right foot could not be completed due to recent pacemaker placement. ESR and CRP suggestive of active osteomyelitis infection. Underwent metatarsal resection. Wound culture grew pseudomonas, cutibacterium acnes from resection culture. Started on Zosyn and daptomycin then transitioned to ciprofloxacin with renal dosing /2 to diarrhea - c. dif negative. Vascular surgery unable to offer surgical management as duplex US LE showedfindings of peripheral vascular disease with no sonographic evidence of high-grade stenosis or focal vessel cut off through the arteries of the right or left lower extremity. -Discussed case with [facility] ID tele-consult 02/09/22. Plan to now switch from cipro to cefepime for appropriate coverage of cutibacterium acnes and pseudomonas -Cefepime 2g after hemodialysis MWF for 6 weeks since date of resection (01/27 to 02/28/22) -s/p 2nd Metatarsal Resection on right on 01/27 and closure of wound on 01/31 with podiatry Ulcer of extremity due to chronic venous insufficiency: See plan above Elevated troponin: Elevated troponin on admission= 129, repeat 120. Denies chest pain, ECG without ischemic changes -> likely secondary to ESRD. End-stage renal disease on hemodialysis: -MWF hemodialysis -Nephrology following -Avoid nephrotoxic agents PAF (paroxysmal atrial fibrillation): Eliquis 5 mg BID. Amiodarone held on admission, looking back on cardiology notes, should remain on amiodarone Obstructive sleep apnea Moderate pulmonary hypertension: Stable, continue CPAP at night Restrictive lung disease secondary to obesity: Continue CPAP at night as above. Continue Breo Ellipta, albuterol as needed, montelukast Chronic diastolic heart failure: HFrEF 35%-40% Not currently on beta-alesia. Most recent echo on 01/08/2022 at [facility] consistent of left ventricular size moderately dilated, left ventricular hypertrophy, diffuse hypokinesis, left ventricular function mild to moderately decreased, ejection fraction of 35 to 40%. Consider starting GDMT outpatient with beta- alesia, spironolactone, SGLT2 etc. GERD (gastroesophageal reflux disease): Continue omeprazole Hyperlipidemia: Continue statin CAD (coronary artery disease): Continue aspirin, Plavix, ranolazine Diabetes mellitus type 2, uncontrolled: Last A1c on 12/29 was 7.1; 7.6 on admission. Typically takes 33 units of Toujeo daily. Basal bolus with sliding scale and carb consistent diet while in hospital. Hypertension: Continue hydralazine twice daily Orthostatic hypotension: Typically receives midodrine 3 times daily but will hold for now if he becomes hypotensive, consider restarting Dispo: med/surg, awaiting HD bed at [facility] with dialysis bed DVT ppx: Plavix Code: full FENGI: Carb consistent, dialysis (2) Ulcer of extremity due to chronic venous insufficiency: (3) Elevated troponin: (4) End-stage renal disease on hemodialysis: (5) PAF (paroxysmal atrial fibrillation): (6) Moderate pulmonary hypertension: (7) GERD (gastroesophageal reflux disease): (8) Restrictive lung disease secondary to obesity: (9) Chronic diastolic heart failure: (10) Obstructive sleep apnea: (11) Hyperlipidemia: (12) CAD (coronary artery disease): (13) Diabetes mellitus type 2, uncontrolled: (14) Hypertension: (15) Orthostatic hypotension: Admission and Anticipated Discharge Date Admission Date: January 25, 2022 Supervising Physician Co-Signing Physician Notes Resident Physician Supervision Note: I independently interviewed and examined the patient and verified the mata history and physical, reviewed labs and image studies and agree with resident findings and care plan. Subjective Patient seen and examined at bedside. No overnight events. Ryan is resting comfo rtably without complaints. Denies increased work of breathing, chest pain, diarrhea, fever, chills, body aches. Review of Systems Review of Systems: As per HPI Physical Exam Constitutional: WD/WN, vitals as above Eyes: PERRL, conjunctivae normal, anicteric sclerae Neck: trachea midline, no thyromegaly Respiratory: normal respiratory effort, lungs clear to auscultation Cardiovascular: RRR, no murmur, no edema Gastrointestinal (Abdomen): normal bowel sounds, soft, nontender, no hepatosplenomegaly Psychiatric: A+Ox3, euthymic affect Results & Data Results & Data ([facility]) Vital Signs (Past 12 Hours) Vital Signs Temp Pulse Resp BP Pulse Ox O2 Del Method 02/08/22 20:40 36.2 C L 70 18 116/64 100 CPAP 02/08/22 19:29 CPAP Resident Activity Tracking Resident Involvement: Resident Care Provided Care Provided: Adult [facility] Medicine (1) CAD (coronary artery disease) Associated angina: without angina Coronary Disease-Associated Artery/Lesion type: [place] artery [place] vs. transplanted heart: [place] heart Qualified Code(s): I25.10 - Atherosclerotic heart disease of [place] coronary artery without angina pectoris (2) Diabetes mellitus type 2, uncontrolled Glycemic state: with hyperglycemia Qualified Code(s): E11.65 - Type 2 diabetes mellitus with hyperglycemia
[2022-02-09] MEDS: RANOLAZINE 500 MG ER TAB PO SCH ×2 (08:39→21:02)
[2022-02-09] MEDS: hydrALAZINE HCL 25 MG TAB PO SCH ×2 (08:39→21:03)
[2022-02-09] MEDS: ADVANCED PROBIOTIC 1250 MG CAPSULE PO SCH (08:40)
[2022-02-09] MEDS: APIXABAN 5 MG TABLET PO SCH ×2 (08:40→21:02)
[2022-02-09] MEDS: AMIODARONE 200 MG TAB PO SCH (08:40)
[2022-02-09] MEDS: NEPHROCAPS PO SCH (08:40)
[2022-02-09] MEDS: MONTELUKAST SODIUM 10 MG TABLET PO SCH (08:40)
[2022-02-09] MEDS: ASPIRIN 81 MG ECTAB PO SCH (08:40)
[2022-02-09] MEDS: CLOPIDOGREL BISULFATE 75 MG TAB PO SCH (08:41)
[2022-02-09] MEDS: FLUTICASONE/VILANTEROL 100/25MCG 14 PUFFS/INHALER INH SCH (08:41)
[2022-02-09] MEDS: PANTOprazole 40 MG TAB PO SCH (08:41)
[2022-02-09] MEDS: SEVELAMER HCL 800 MG TABLET PO SCH ×3 (08:41→16:01)
[2022-02-09] MEDS: CHOLECALCIFEROL 1,000 UNITS 25 MCG TAB PO SCH (08:41)
[2022-02-09 09:06] LABS: Basophils # (auto) 0.07 K/uL (0-0.2); Basophils % (auto) 0.9 %; Eosinophils # (auto) 0.08 K/uL (0-0.50); Eosinophils % (auto) 1.1 %; Hematocrit (blood only) 31.5 % (40.1-51.0); Immature Granulocytes # (auto) 0.03 K/uL (0.00-0.02); Immature Granulocytes % (auto) 0.4 %; Lymphocytes # (auto) 0.78 K/uL (1.2-3.4); Lymphocytes % (auto) 10.4 %; Mean Corpuscular Hemoglobin 29.5 pg (25.0-34.0); Mean Corpuscular Hgb Conc 31.7 g/dL (32.0-36.0); Mean Corpuscular Volume 92.9 fL (80.0-100.0); Mean Platelet Volume 11.2 fL (9.4-12.4); Monocytes # (auto) 0.78 K/uL (0.24-0.82); Monocytes % (auto) 10.4 %; Neutrophils # (auto) 5.73 K/uL (1.4-6.5); Neutrophils % (auto) 76.8 %; Platelet Count 159 K/uL (130-400); RDW Coefficient of Variation 17.1 % (11.5-14.5); RDW Standard Deviation 58.3 fL (36.4-46.3); Red Blood Count 3.39 M/uL (4.63-6.08); White Blood Count 7.47 K/ul (4.8-10.8)
[2022-02-09 09:32] LABS: BUN Creatinine Ratio 4.1 (10-20); Calcium 8.5 mg/dl (8.5-10.1); Creatinine Clr Calc Pharmacy 12.6 ml/min; Est GFR (African American) 8.5 ml/min; Est GFR (Non-African American) 7.3 ml/min; Potassium 3.2 mmol/L (3.5-5.1)
[2022-02-09] MEDS: INSULIN ASPART PER UNIT SC SCH ×4 (09:41→20:48)
[2022-02-09] MEDS: LANTUS PER UNIT CHARGE SQ SCH (09:41)
--- NOTE | 2022-02-09 09:43 | Pharmacy Report ---
Pharmacy Glycemic Short Note 2 - Date of Service February 09, 2022 - Glycemic Short BSG Results (Last 24 hours): 02/08/22 02/08/22 02/08/22 13:55 17:18 20:42 Glucose POC Glucose 119 H 186 H 99 02/09/22 02/09/22 08:16 08:26 Glucose 144 H POC Glucose 142 H OUTPATIENT ANTIDIABETIC REGIMEN: * Toujeo 33 units SQ Daily * A1c 7.6% (01/26/22) -- unreliable in the setting of ESRD on HD ASSESSMENT: 02/09/22: * BSGs 285-573-27-142mg/dL the last 24h. Fasting within goal this AM. BSGs reasonably controlled. Received 7 units of basal and 8 units of bolus insulin yesterday. * Tolerating diet, stressors stable. * No change to insulin parameters today. 02/07/22: * BSG ranging 120-188 mg/dL w/ fasting BSG this morning of 172 mg/dL - above goal * Received 14 units of insulin yesterday (6 units of basal) * Increased basal by 1 unit and maintained current NovoLog parameters (CF 25 and CR 8 with goal 110-140) 02/05/22: * BSGs reasonably well-controlled yesterday, ranging 120-180 mg/dL w/ fasting BSG this morning of 133 mg/dL * Received 28 units of insulin (6 units of basal and 22 units of prandial/correctional bolus) * Will continue with increased basal and maintain current Novolog parameters * Hemodialysis scheduled for tomorrow (02/06/22) 02/01/22: * Pt was NPO yesterday for procedure in the OR. He declined receiving any basal/bolus insulin during the time in which he was NPO. BSGs remained fairly stable. * Pt is scheduled to receive HD today. * No changes required at this time. Will continue to follow. 01/30 * BSGs very well-controlled yesterday, ranging 117-144 mg/dL w/ fasting BSG of 123 mg/dL this morning * Received 13 units of insulin (5 units of basal and 8 units of bolus) * Will continue yesterday's AM basal dose with possible scale this evening * Hemodialysis scheduled for today * Insulin requirements below reported outpatient ones, will 01/26 * 51 yo male, admitted with osteomyelitis of right foot on IV Zosyn and Daptomycin, PMH of ESRD on MWF dialysis, chronic respiratory failure on 4 L of oxygen at home, Type 2 diabetes on 33 units daily of Toujeo, HTN, AF, and pacemaker placement (1 week ago). * Patient refused HS dose of basal insulin ordered last night by admitting provider, received 1 unit of NovoLog correctional insulin, euglycemic this morning. * Patient managed on basal insulin only at home, will begin Lantus at about half of home basal dose, and use NovoLog for correctional and prandial insulin while inpatient. PLAN FOR INPATIENT GLYCEMIC CONTROL: * Basal insulin * Lantus 7 units SQ daily * Bolus insulin * NovoLog per scale ACHS or Q6hrs while NPO * Goal Range: Low 110 mg/dL - High 140 mg/dL * Correction Factor: 25 mg/dL/unit * Nutritional / Prandial insulin per carb ratio of 1 unit per 8 grams CHO consumed
--- NOTE | 2022-02-09 09:48 | Infectious Disease Consult ---
Date of Consultation February 09, 2022 Assessment & Plan (1) Acute osteomyelitis of right foot: (2) Diabetic infection of right foot: (3) Ulcer of extremity due to chronic venous insufficiency: (4) Status post placement of implantable loop recorder: Plan 51 yo M with h/o ESRD on HD MWF, chronic hypoxemic respiratory failure secondary to restrictive lung disease and on 4 L of oxygen at home, PPM, type 2 diabetes, hypertension, atrial fibrillation admitted to [facility] for R foot infection. Infectious diseases has been consulted for R foot osteomyelitis s/p 2nd metatarsal resection with residual osteomyelitis. Xray R foot shows prior resection of 2nd toe with pronounced osteomyelitis involving the distal aspect of the second metatarsal with associated pathologic fracturing. Possible additional cortical erosions of the third proximal phalanx and first DIP joint with third proximal phalangeal pathologic fracture. 01/26 Angiogram showed peripheral vascular disease with no sonographic evidence of high-grade stenosis On admission, HD stable afebrile. Initial labs on 01/25 notable for WBC 9.57 ESR 66, CRP 5.17, positive troponins, 01/25 Blood culture No Growth 01/25 Wound culture grew Pseudomonas aeruginosa, no resistance. He went to OR on 01/27 for 2nd Metatarsal Resection then 01/31 for primary closure. 01/27 OR cultures growing Cutibacterium acnes (no sensitivities reported) I spoke with Micro lab and this would have to be a send out. Pathology shows right second metatarsal, resection: Abundant fat necrosis, reactive bone formation, and chronic osteomyelitis Discussion: Patient with residual osteomyelitis, prior culture grew PSA from wound and patient was on IV therapy for 72 hours. OR cultures are growing C. acnes, Typically this a very sensitive organism to PCN. Micro is unable to do sensi in house. I suspect PSA is major component and given broad abx did not grow intra-op. I would recommend coverage for both organisms with Cefepime. Longer term Cipro >4 weeks associated Cdiff, prolonged Qtc et. Cefepime could be given at HD 2/2/2G on M// Recommend DC Cipro Start Cefepime to cover PSA and C. acnes with HD, 2G/2G/2G qMWF Weekly CBCD, CMP, ESR, CRP to primary care physician EOT: 6 weeks from resection 01/27- 02/28/22 I spoke with primary team regarding these recommendations Cathy Gutierrez MD [facility], [facility] Consultation Information Consultation was provided via telemedicine using two-way real-time interactive telecommunication between the patient and the telemedicine provider. For the duration of the visit, the provider was performing the assessment from a different facility than the patient. This includesuse of bluetooth stethoscope forauscultationperformed by the telepresenter that the telemedicine provider can hear if described in the physical exam. Infusion Therapy Nurse contact information: Please call [facility] Call Center [phone]. (Phone Number For Physician Use Only) After establishing a telemedicine visit, patient was: Patient was verified with two unique identifiers, Patient/authorized rep acknowledged consent and understanding and Gave permission to continue telehealth session History of Present Illness Reason for Consultation: Foot osteomyelitis Requesting Physician: Dr. Arlyn Arriola Attending Physician: Arlyn Arriola MD History of Present Illness 51 yo M with h/o ESRD on HD MWF, chronic hypoxemic respiratory failure secondary to restrictive lung disease and on 4 L of oxygen at home, PPM, type 2 diabetes, hypertension, atrial fibrillation admitted to [facility] for R foot infection. Infectious diseases has been consulted for R foot osteomyelitis. 01/25 CXR negative for acute abnormalities. Xray R foot shows prior resection of 2nd toe with pronounced osteomyelitis involving the distal aspect of the second metatarsal with associated pathologic fracturing. Possible additional cortical erosions of the third proximal phalanx and first DIP joint with third proximal phalangeal pathologic fracture. 01/26 Angiogram showed peripheral vascular disease with no sonographic evidence of high-grade stenosis On admission, HD stable afebrile. Initial labs on 01/25 notable for WBC 9.57 ESR 66, CRP 5.17, positive troponins, 01/25 Blood culture No Growth 01/25 Wound culture grew Pseudomonas aeruginosa, no resistance. He went to OR on 01/27 for 2nd Metatarsal Resection and 5th digit resection, then 01/31 for primary closure. 01/27 OR cultures growing Cutibacterium acnes (no sensitivities reported) I spoke with Micro lab and this would have to be a send out. Pathology shows right second metatarsal, resection: Abundant fat necrosis, reactive bone formation, and chronic osteomyelitis Negative for malignancy Antibiotics started on Zosyn, Daptomycin on admission and transitioned to Ciprofloxacin. On my interview today, patient has no complaints. No fevers/chills. Diarrhea has resolved. No foot pain. Allergies Allergy/AdvReac Type Severity Reaction Status Date / Time codeine Allergy Mild DELIRIUM,ME Verified 01/13/22 13:08 AN tramadol Allergy Mild nausea and Verified 01/13/22 13:08 vomiting Home Medications Medication Instructions Recorded Confirmed Type aspirin 81 mg chewable tablet 81 mg PO QAM 05/06/18 01/13/22 History clopidogrel 75 mg tablet (Plavix) 75 mg PO QAM 04/05/19 01/13/22 History albuterol sulfate 90 mcg/actuation 2 puffs inhalation Q6H PRN 07/02/19 01/13/22 Rx aerosol inhaler (Ventolin HFA) Shortness Of Breath Or Wheezing #18 grams atorvastatin 40 mg tablet 40 mg PO HS 09/04/19 01/13/22 History fluticasone furoate 100 1 ea inhalation DAILY #1 ea 01/30/20 01/13/22 Rx mcg-vilanterol 25 mcg/dose inhalation powder (Breo Ellipta) blood sugar diagnostic #50 ea 12/07/20 01/13/22 Rx miscellaneous medical supply 1 ea miscellaneous DAILY #1 ea 03/08/21 01/13/22 Rx pen needle, diabetic 31 gauge x #100 ea 03/11/21 01/13/22 Rx 3/16" (Easy Comfort Pen Erin) insulin glargine U-300 conc 300 33 unit (0.11 mL) subcut QAM #4.5 11/14/21 01/13/22 Rx unit/mL (1.5 mL) subcutaneous pen mL (Toujeo SoloStar U-300 Insulin) acetaminophen 500 mg capsule 1,000 mg PO TID PRN Pain #180 caps 11/21/21 01/13/22 Rx cholecalciferol (vitamin D3) 25 25 mcg PO DAILY #90 caps 11/21/21 01/13/22 Rx mcg (1,000 unit) capsule blood sugar diagnostic (OneTouch #50 ea 12/20/21 01/13/22 Rx Ultra Test strips) hydralazine 25 mg tablet 25 mg PO BID #60 tabs 01/03/22 01/13/22 Rx apixaban 5 mg tablet (Eliquis) 5 mg PO BID #60 tabs 01/11/22 01/13/22 Rx omeprazole 40 mg capsule,delayed 40 mg PO DAILY #30 caps 01/11/22 01/13/22 Rx release midodrine 5 mg tablet 5 mg PO TID 01/13/22 01/13/22 History ranolazine 500 mg tablet,extended 500 mg PO QAM 01/13/22 01/13/22 History release,12 hr amiodarone 200 mg tablet mg PO QAM 01/25/22 History montelukast 10 mg tablet 10 mg PO HS 01/25/22 History Patient History Medical History Acute on chronic diastolic CHF (congestive heart failure) Anemia of chronic disease Arthritis CAD (coronary artery disease) 08/2015- L Cx stent; 11/2017- RCA stent, L Cx stent patent; 07/2019- LM wnl, prox-mid LAD 30%, mid-L Cx stent patent, RCA stent stent with area between stents 30-40%. Sees [facility], Dr Sharad Norton. 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) Repaired s/p PPV, MP, EL (SNT) Diverticular disease Elevated troponin End-stage renal disease on hemodialysis ESRD (end stage renal disease) on dialysis dialysis sun-sun-sun is getting dialysis sat prior to colonoscopy 09/29/2019 and will have it again after on sunday09/30/2019 History of COVID-19 (12/2020) Hyperkalemia Hyperlipidemia Hypertension Moderate pulmonary hypertension Nuclear sclerosis of both eyes Obstructive sleep apnea cpap on 4L N/C On home oxygen therapy 4L N/C at all times Osteoarthritis, hip, bilateral Pleural effusion, bilateral 11/2018 Pneumonia Presence of arteriovenous fistula for hemodialysis left forearm Secondary pulmonary hypertension Status post placement of implantable loop recorder (07/07/21) Syncope Vitreous hemorrhage of right eye due to diabetes mellitus (12/04/18) Surgical History History of cardiac cath X 2 - 11/2017 - [facility] - SOB - 1 stent placed - follows w/ Dr. Zuniga - 2015 [facility] - SOB - 1 stent placed History of cardioversion (01/18/22) for afib History of colonoscopy History of foot surgery left x 4 History of heart artery stent X2 History of placement of chest tube left lung for pleural effusion 11/2018 History of tooth extraction all teeth S/P arteriovenous (AV) fistula creation 04/2016 Dr. Mena placed S/P bilateral cataract extraction (05/2021) S/P cardiac catheter[facility]- 01[facility]22 Family History Mother Diabetes Coronary heart disease Heart disease Hypertension Stroke Father Diabetes Coronary heart disease Heart disease Myocardial infarction Hypertension Stroke Other Kidney disease No family history of adverse response to anesthesia Denies family history of Ovarian cancer Prostate cancer Breast cancer Lung cancer Colorectal cancer Social History Smoking Status: Former smoker Second Hand Exposure: No; Hx Alcohol Use: No Hx Substance Use: No Preferred Language: Frisian Communication Ability: Effective Visual Impairment: No Limitations Hearing Ability: Normal Director Of Casework Department Required: No Beliefs That Will Affect Care: None marital status: Single Current Living Situation: Significant Other Current Living Situation Comment: lives with significant other near [place] current occupational status: disabled How many Children do You have: 0 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 Feels Safe at Home: Yes Childhood Exposure to Second-Hand Smoke: Yes Diet Comment: regular caffeine: No during the past year weight has: remained stable Dental Care, Regularly: No Physical Activity Frequency: 1-2 Times per Week Physical Activity Frequency Comment: walk Seatbelt Use: always Sunscreen Use: No Assistive Devices: Oxygen - Continuous Review of System Constitutional: as per Subjective / HPI Cardiovascular: no chest pain, no chest pain at rest, no dyspnea, no orthopnea and no edema Gastrointestinal: as per Subjective / HPI Integumentary: as per Subjective / HPI Physical Exam Constitutional: WD/WN, vitals as above Cardiovascular: RRR, no murmur, no edema Pacemaker site c/d/i Skin: R foot ulcer, necrotic non draining, achilles tendon open ulcer non draining 2nd digit amputated, 5th digit amputated Results & Data ([facility]) Vital Signs (Past 12 Hours) Vital Signs Temp Pulse Resp BP Pulse Ox O2 Del Method O2 Flow Rate 02/09/22 07:18 36.6 C 70 18 142/86 H 99 Nasal Cannula 4 Laboratory Results Laboratory Results - last 48 hr 02/07/22 02/07/22 02/08/22 17:16 20:28 06:25 WBC 8.42 RBC 3.14 L Hgb 9.6 L Hct 29.3 L MCV 93.3 MCH 30.6 MCHC 32.8 RDW Std Deviation 59.1 H RDW Coeff of Octavio 17.3 H Plt Count 148 MPV 10.9 Immature Gran % (Auto) Neut % (Auto) Lymph % (Auto) [place] % (Auto) Eos % (Auto) Baso % (Auto) Neut # (Auto) Lymph # (Auto) [place] # (Auto) Eos # (Auto) Baso # (Auto) Immature Gran # (Auto) Sodium Potassium Chloride Carbon Dioxide Anion Gap BUN Creatinine Est Cr Clr Drug Dosing Est GFR ( Amer) Est GFR (Non-Af Amer) BUN/Creatinine Ratio Glucose POC Glucose 147 H 155 H Calcium 02/08/22 02/08/22 02/08/22 06:25 08:15 13:55 WBC RBC Hgb Hct MCV MCH MCHC RDW Std Deviation RDW Coeff of Octavio Plt Count MPV Immature Gran % (Auto) Neut % (Auto) Lymph % (Auto) [place] % (Auto) Eos % (Auto) Baso % (Auto) Neut # (Auto) Lymph # (Auto) [place] # (Auto) Eos # (Auto) Baso # (Auto) Immature Gran # (Auto) Sodium 136 Potassium 3.5 Chloride 95 L Carbon Dioxide 25 Anion Gap 16 H BUN 43 H Creatinine 9.18 H* D Est Cr Clr Drug Dosing 10.7 Est GFR ( Amer) 6.8 Est GFR (Non-Af Amer) 5.9 BUN/Creatinine Ratio 4.7 L Glucose 135 H POC Glucose 180 H 119 H Calcium 8.1 L 02/08/22 02/08/22 02/09/22 17:18 20:42 08:16 WBC 7.47 RBC 3.39 L Hgb 10.0 L Hct 31.5 L MCV 92.9 MCH 29.5 MCHC 31.7 L RDW Std Deviation 58.3 H RDW Coeff of Octavio 17.1 H Plt Count 159 MPV 11.2 Immature Gran % (Auto) 0.4 Neut % (Auto) 76.8 Lymph % (Auto) 10.4 [place] % (Auto) 10.4 Eos % (Auto) 1.1 Baso % (Auto) 0.9 Neut # (Auto) 5.73 Lymph # (Auto) 0.78 L [place] # (Auto) 0.78 Eos # (Auto) 0.08 Baso # (Auto) 0.07 Immature Gran # (Auto) 0.03 H Sodium Potassium Chloride Carbon Dioxide Anion Gap BUN Creatinine Est Cr Clr Drug Dosing Est GFR ( Amer) Est GFR (Non-Af Amer) BUN/Creatinine Ratio Glucose POC Glucose 186 H 99 Calcium 02/09/22 02/09/22 02/09/22 08:16 08:26 12:26 WBC RBC Hgb Hct MCV MCH MCHC RDW Std Deviation RDW Coeff of Octavio Plt Count MPV Immature Gran % (Auto) Neut % (Auto) Lymph % (Auto) [place] % (Auto) Eos % (Auto) Baso % (Auto) Neut # (Auto) Lymph # (Auto) [place] # (Auto) Eos # (Auto) Baso # (Auto) Immature Gran # (Auto) Sodium 138 Potassium 3.2 L Chloride 96 L Carbon Dioxide 29 Anion Gap 13 H BUN 31 H Creatinine 7.64 H* D Est Cr Clr Drug Dosing 12.6 Est GFR ( Amer) 8.5 Est GFR (Non-Af Amer) 7.3 BUN/Creatinine Ratio 4.1 L Glucose 144 H POC Glucose 142 H 223 H Calcium 8.5 Microbiology 01/27/22 Unknown Toe,Right Second Gram Stain - Final 01/27/22 Unknown Toe,Right Second Aerobic and Anaerobic Culture - Final Cutibacterium (Propioni) acnes 01/25/22 18:25 Blood Aerobic Blood Culture - Final No growth in Aerobic bottle after 5 days. 01/25/22 18:25 Blood Anaerobic Blood Culture - Final No growth in Anaerobic bottle after 5 days. 01/25/22 16:36 Blood Aerobic Blood Culture - Final No growth in Aerobic bottle after 5 days. 01/25/22 16:36 Blood Anaerobic Blood Culture - Final No growth in Anaerobic bottle after 5 days. 01/25/22 19:21 Foot,Right Gram Stain - Final 01/25/22 19:21 Foot,Right Wound Culture - Final Pseudomonas aeruginosa Medications Administered Current Inpatient Medications Acetaminophen (Acetaminophen 325 Mg Tab) 650 mg PO Q4H PRN PRN Reason: Pain or Fever Stop: 02/24/22 20:53 Last Admin: 02/08/22 17:37 Dose: 650 mg Albuterol (Albuterol Hfa 8 Gm Inhaler) 2 puffs INH Q6H PRN PRN Reason: Shortness Of Breath Or Wheezing Stop: 02/24/22 20:53 Amiodarone HCl (Amiodarone 200 Mg Tab) 200 mg PO QAM [facility] Stop: 03/04/22 08:59 Last Admin: 02/09/22 08:40 Dose: 200 mg Apixaban (Apixaban 5 Mg Tablet) 5 mg PO BID [facility] Stop: 03/01/22 20:59 Last Admin: 02/09/22 08:40 Dose: 5 mg Aspirin (Aspirin 81 Mg Ectab) [facility] Stop: 02/25/22 08:59 Last Admin: 02/09/22 08:40 Dose: 81 mg Atorvastatin Calcium (Atorvastatin 40 Mg Tab) 40 mg PO [facility] Stop: 03/03/22 20:59 Last Admin: 02/08/22 20:43 Dose: 40 mg Ciprofloxacin (Ciprofloxacin 500 Mg Tab) 500 mg PO [facility] Stop: 03/14/22 20:59 Last Admin: 02/08/22 20:43 Dose: 500 mg Clopidogrel Bisulfate (Clopidogrel Bisulfate 75 Mg Tab) [facility] Stop: 02/25/22 08:59 Last Admin: 02/09/22 08:41 Dose: 75 mg Dextrose (Dextrose 50% 50 Ml Syringe) 25 - 50 ml IV UD PRN; Protocol PRN Reason: Hypoglycemia Protocol Stop: 02/24/22 20:53 Fluticasone/Vilanterol (Fluticasone/Vilanterol 100/25mcg 14 Puffs/Inhaler) 1 puffs INH DAILY [facility] Stop: 02/25/22 08:59 Last Admin: 02/09/22 08:41 Dose: 1 puffs Glucagon (Glucagon For Inj 1 Mg Vial) 1 mg SQ UD PRN; Protocol PRN Reason: Hypoglycemia Protocol Stop: 02/24/22 20:53 Glucose (Glucose 40% Gel 15 Gm Tube) 15 - 30 gm PO UD PRN; Protocol PRN Reason: Hypoglycemia Protocol Stop: 02/24/22 20:53 Glucose (Glucose 10 Tab/Tube) 4 - 8 tab PO UD PRN; Protocol PRN Reason: Hypoglycemia Treatment Stop: 02/24/22 20:53 Hydralazine HCl (Hydralazine Hcl 25 Mg Tab) 25 mg PO BID [facility] Stop: 02/25/22 08:59 Last Admin: 02/09/22 08:39 Dose: 25 mg Insulin Aspart (Insulin Aspart Per Unit) 0 units SC ACHS [facility] Stop: 02/24/22 20:59 Last Admin: 02/09/22 09:41 Dose: 3 units Insulin Glargine (Lantus Per Unit Charge) 7 units SQ DAILY [facility]; Protocol Stop: 03/09/22 08:59 Last Admin: 02/09/22 09:41 Dose: 7 units Lactobacillus Acidophilus (Advanced Probiotic 1250 Mg Capsule) 2 cap PO DAILY [facility] Stop: 03/02/22 14:14 Last Admin: 02/09/22 08:40 Dose: 2 cap Miscellaneous (Carbohydrates For Hypoglycemia ) 15 - 30 gm PO UD PRN PRN Reason: Hypoglycemia Protocol Stop: 02/24/22 20:53 Miscellaneous Information (Pharmacy Glycemic Mgmt Consult) 1 each N/A UD PRN PRN Reason: Consult Stop: 02/24/22 20:53 Montelukast Sodium (Montelukast Sodium 10 Mg Tablet) 10 mg PO QAM [facility] Stop: 02/25/22 08:59 Last Admin: 02/09/22 08:40 Dose: 10 mg Ondansetron HCl (Ondansetron Inj 2 Mg/Ml 2 Ml Vial) 4 mg IV Q6H PRN PRN Reason: Nausea Stop: 02/24/22 20:53 Last Admin: 02/07/22 12:56 Dose: 4 mg Pantoprazole Sodium (Pantoprazole 40 Mg Tab) 40 mg PO DAILY [facility] Stop: 02/25/22 08:59 Last Admin: 02/09/22 08:41 Dose: 40 mg Polyethylene Glycol (Polyethylene (Miralax) 17 Gm Pack) 17 gm PO DAILY PRN PRN Reason: Constipation Stop: 02/24/22 20:53 Ranolazine (Ranolazine 500 Mg Er Tab) 500 mg PO Q12H [facility] Stop: 02/24/22 20:59 Last Admin: 02/09/22 08:39 Dose: 500 mg Sevelamer HCl (Sevelamer Hcl 800 Mg Tablet) 800 mg PO TIDM [facility] Stop: 03/07/22 11:59 Last Admin: 02/09/22 12:11 Dose: Not Given Vitamin B Complex/Folic Acid (Nephrocaps) 1 cap PO QAM [facility] Stop: 03/07/22 08:59 Last Admin: 02/09/22 08:40 Dose: 1 cap Vitamin D (Cholecalciferol 1,000 Units 25 Mcg Tab) 1,000 units PO DAILY [facility] Stop: 02/25/22 08:59 Last Admin: 02/09/22 08:41 Dose: 1,000 units
--- NOTE | 2022-02-09 11:30 | Nephrology Progress Note ---
Date of Service February 09, 2022 Assessment & Plan (1) End-stage renal disease on hemodialysis: (2) Anemia of chronic disease: (3) Hyperphosphatemia: (4) Acute osteomyelitis of right foot: Plan 51-year-old male with ESRD on HD MWF, chronic hypoxemic respiratory failure secondary to restrictive lung disease and pulmonary hypertension on 4 L of oxygen at home, DM, HTN admitted with right foot infection and osteomyelitis status post metatarsal resection and closure of the wound. Currently awaiting placement at [facility], possible DC on 02/10/22. . Doing well, electrolyte, volume status acceptable. Blood pressure has been quite variable. Had HD yesterday, waiting on Rehab. -- continue on phosphate binder with meal, continue on renal vitamin daily. -- Epogen 56519 units given on 02/08/22 -- Dose medications for a GFR less than 10, left arm nephrology precaution. Will follow. Admission and Anticipated Discharge Date Admission Date: January 25, 2022 Lanie Ryan was seen and evaluated during HD this morning. Denies any specific symptoms. Currently electrolyte, volume status acceptable. Blood pressure fair. Review of Systems Review of Systems: Detailed review of system was otherwise unremarkable. Physical Exam Constitutional: WD/WN, vitals as above no acute distress Eyes: + anicteric sclerae ENMT: Ears: no hearing impairment Respiratory: Auscultation: lungs clear to auscultation bilaterally Cardiovascular: RRR, no murmur, no edema Extremities: + AV fistula (+ thrill and bruit) Neurologic: no focal motor deficits and not confused Psychiatric: Orientation: alert and oriented x 3 Results & Data ([facility]) Vital Signs (Past 12 Hours) Vital Signs Temp Pulse Resp BP Pulse Ox O2 Del Method O2 Flow Rate 02/09/22 08:15 Nasal Cannula 4 02/09/22 07:18 36.6 C 70 18 142/86 H 99 Nasal Cannula 4 PG Care Time/CCT Total # of Minutes Spent Total Time Spent with Patient: Total time spent is greater than 50% in coordination of care (as documented) at patient's floor/unit and/or counseling patient: Coding Level of Care Code 38810 Subseq Hosp Care Lvl 2 Diagnoses End-stage renal disease on hemodialysis N18.6; Z99.2 Anemia of chronic disease D63.8 Hyperphosphatemia E83.39 Acute osteomyelitis of right foot M86.171
[2022-02-09] MEDS: ATORVASTATIN 40 MG TAB PO SCH (21:04)
--- NOTE | 2022-02-10 06:53 | Hospitalist Progress Note ---
Date of Service February 10, 2022 Assessment & Plan (1) Acute osteomyelitis of right foot: Plan: Patient is a 51-year-old male with past medical history of ESRD on HD MWF, chronic hypoxemic respiratory failure secondary to restrictive lung disease and pulmonary hypertension on 4 L of oxygen at home, type 2 diabetes on 33 units daily of Toujeo, hypertension, atrial fibrillation, and pacemaker placement (see insertion 1 week ago) coming into the hospital for evaluation of a right foot infection which has since been treated with antibiotics and metatarsal resection with subsequent closure of wound awaiting placement at [facility] -Per case management, [facility] expects a dialysis bed to be available by the end of this week. Now reaching out to [place] for possible availability. No updates today. Acute osteomyelitis of right foot MRI of right foot could not be completed due to recent pacemaker placement. ESR and CRP suggestive of active osteomyelitis infection. Underwent metatarsal resection. Wound culture grew pseudomonas, cutibacterium acnes from resection culture. Started on Zosyn and daptomycin then transitioned to ciprofloxacin with renal dosing /2 to diarrhea - c. dif negative. Vascular surgery unable to offer surgical management as duplex US LE showedfindings of peripheral vascular disease with no sonographic evidence of high-grade stenosis or focal vessel cut off through the arteries of the right or left lower extremity. -Discussed case with [facility] ID tele-consult 02/09/22. Plan to now switch from cipro to cefepime for appropriate coverage of cutibacterium acnes and pseudomonas -Cefepime 2g after hemodialysis MWF for 6 weeks since date of resection (01/27 to 02/28/22) -s/p 2nd Metatarsal Resection on right on 01/27 and closure of wound on 01/31 with podiatry Ulcer of extremity due to chronic venous insufficiency: See plan above Elevated troponin: Elevated troponin on admission= 129, repeat 120. Denies chest pain, ECG without ischemic changes -> likely secondary to ESRD. End-stage renal disease on hemodialysis: -MWF hemodialysis -Nephrology following -Avoid nephrotoxic agents PAF (paroxysmal atrial fibrillation): Eliquis 5 mg BID. Amiodarone held on admission, looking back on cardiology notes, should remain on amiodarone Obstructive sleep apnea Moderate pulmonary hypertension: Stable, continue CPAP at night Restrictive lung disease secondary to obesity: Continue CPAP at night as above. Continue Breo Ellipta, albuterol as needed, montelukast Chronic diastolic heart failure: HFrEF 35%-40% Not currently on beta-alesia. Most recent echo on 01/08/2022 at [facility] consistent of left ventricular size moderately dilated, left ventricular hypertrophy, diffuse hypokinesis, left ventricular function mild to moderately decreased, ejection fraction of 35 to 40%. Consider starting GDMT outpatient with beta- alesia, spironolactone, SGLT2 etc. GERD (gastroesophageal reflux disease): Continue omeprazole Hyperlipidemia: Continue statin CAD (coronary artery disease): Continue aspirin, Plavix, ranolazine Diabetes mellitus type 2, uncontrolled: Last A1c on 12/29 was 7.1; 7.6 on admission. Typically takes 33 units of Toujeo daily. Basal bolus with sliding scale and carb consistent diet while in hospital. Hypertension: Continue hydralazine twice daily Orthostatic hypotension: Typically receives midodrine 3 times daily but will hold for now if he becomes hypotensive, consider restarting Dispo: med/surg, awaiting HD bed at [facility] with dialysis bed. No updates today DVT ppx: Plavix Code: full FENGI: Carb consistent, dialysis (2) Ulcer of extremity due to chronic venous insufficiency: (3) Elevated troponin: (4) End-stage renal disease on hemodialysis: (5) PAF (paroxysmal atrial fibrillation): (6) Moderate pulmonary hypertension: (7) GERD (gastroesophageal reflux disease): (8) Restrictive lung disease secondary to obesity: (9) Chronic diastolic heart failure: (10) Obstructive sleep apnea: (11) Hyperlipidemia: (12) CAD (coronary artery disease): (13) Diabetes mellitus type 2, uncontrolled: (14) Hypertension: (15) Orthostatic hypotension: Admission and Anticipated Discharge Date Admission Date: January 25, 2022 Supervising Physician Co-Signing Physician Notes Resident Physician Supervision Note: I independently interviewed and examined the patient and verified the mata histor y and physical, reviewed labs and image studies and agree with resident findings and care plan. Subjective Patient seen and examined at bedside. No overnight events. Patient received dialysis today. Denies any increased shortness of breath/fever/chills/body aches. Review of Systems Review of Systems: As per HPI Physical Exam Constitutional: WD/WN, vitals as above Eyes: PERRL, conjunctivae normal, anicteric sclerae Neck: trachea midline, no thyromegaly Respiratory: normal respiratory effort, lungs clear to auscultation Cardiovascular: Rate/Rhythm: regular rate and regular rhythm Extremities: + AV fistula; no edema Skin: no rashes, warm and dry Psychiatric: A+Ox3, euthymic affect Results & Data Results & Data ([facility]) Vital Signs (Past 12 Hours) Vital Signs Temp Pulse Resp BP Pulse Ox O2 Del Method 02/09/22 23:34 CPAP 02/09/22 20:39 36.8 C 69 18 139/75 100 CPAP 02/09/22 20:16 CPAP Resident Activity Tracking Resident Involvement: Resident Care Provided Care Provided: Adult Hospital Medicine (1) CAD (coronary artery disease) Associated angina: without angina Coronary Disease-Associated Artery/Lesion type: [place] artery [place] vs. transplanted heart: [place] heart Qualified Code(s): I25.10 - Atherosclerotic heart disease of [place] coronary artery without angina pectoris (2) Diabetes mellitus type 2, uncontrolled Glycemic state: with hyperglycemia Qualified Code(s): E11.65 - Type 2 diabetes mellitus with hyperglycemia
[2022-02-10] MEDS: INSULIN ASPART PER UNIT SC SCH ×4 (08:52→20:43)
[2022-02-10] MEDS: LANTUS PER UNIT CHARGE SQ SCH ×2 (08:54→09:01)
[2022-02-10 09:00] LABS: Eosinophils # (auto) 0.09 K/uL (0-0.50); Eosinophils % (auto) 0.9 %; Hematocrit (blood only) 34.3 % (40.1-51.0); Hemoglobin 10.9 g/dl (14.0-18.0); Immature Granulocytes # (auto) 0.04 K/uL (0.00-0.02); Immature Granulocytes % (auto) 0.4 %; Lymphocytes % (auto) 8.3 %; Mean Corpuscular Hemoglobin 30.1 pg (25.0-34.0); Mean Corpuscular Hgb Conc 31.8 g/dL (32.0-36.0); Mean Corpuscular Volume 94.8 fL (80.0-100.0); Mean Platelet Volume 10.6 fL (9.4-12.4); Monocytes # (auto) 0.76 K/uL (0.24-0.82); Monocytes % (auto) 7.9 %; Neutrophils # (auto) 7.82 K/uL (1.4-6.5); Neutrophils % (auto) 81.5 %; Platelet Count 176 K/uL (130-400); Red Blood Count 3.62 M/uL (4.63-6.08); White Blood Count 9.61 K/ul (4.8-10.8)
[2022-02-10 09:27] LABS: BUN Creatinine Ratio 4.9 (10-20); Calcium 8.8 mg/dl (8.5-10.1); Creatinine Clr Calc Pharmacy 10.4 ml/min; Est GFR (African American) 6.7 ml/min; Est GFR (Non-African American) 5.8 ml/min; Potassium 3.6 mmol/L (3.5-5.1)
--- NOTE | 2022-02-10 10:27 | Nephrology Progress Note ---
Date of Service February 10, 2022 Assessment & Plan (1) End-stage renal disease on hemodialysis: (2) Anemia of chronic disease: (3) Hyperphosphatemia: (4) Acute osteomyelitis of right foot: Plan 51-year-old male with ESRD on HD MWF, chronic hypoxemic respiratory failure secondary to restrictive lung disease and pulmonary hypertension on 4 L of oxygen at home, DM, HTN admitted with right foot infection and osteomyelitis status post metatarsal resection and closure of the wound. Doing well, electrolyte, volume status acceptable. Blood pressure has been quite variable. -- tolerating HD, on Cefepime 2 gm after HD on MWF for total 6 weeks. Waiting on Rehab. -- continue on phosphate binder with meal, continue on renal vitamin daily. -- Epogen 72029 units given on 02/08/22 -- Dose medications for a GFR less than 10, left arm nephrology precaution. Will follow. Admission and Anticipated Discharge Date Admission Date: January 25, 2022 Subjective Ryan was seen and evaluated during HD this morning. Denies any specific symptoms. Currently electrolyte, volume status acceptable. Blood pressure fair. Still waiting for rehab. Review of Systems Review of Systems: Detailed review of system was otherwise unremarkable. Physical Exam Constitutional: WD/WN, vitals as above no acute distress Eyes: + anicteric sclerae ENMT: Ears: no hearing impairment Respiratory: Auscultation: lungs clear to auscultation bilaterally Cardiovascular: RRR, no murmur, no edema Extremities: + AV fistula (+ thrill and bruit) Neurologic: no focal motor deficits and not confused Psychiatric: Orientation: alert and oriented x 3 Results & Data ([facility]) Vital Signs (Past 12 Hours) Vital Signs Temp Pulse Pulse Pulse Resp BP BP 02/10/22 10:00 70 127/68 02/10/22 09:30 70 131/75 02/10/22 09:10 36.5 C 70 02/10/22 07:17 36.6 C 70 18 156/81 H 02/09/22 23:34 Pulse Ox O2 Del Method O2 Flow Rate 02/10/22 10:00 02/10/22 09:30 02/10/22 09:10 02/10/22 07:17 100 Nasal Cannula 4 02/09/22 23:34 CPAP PG Care Time/CCT Total # of Minutes Spent Total Time Spent with Patient: Total time spent is greater than 50% in coordination of care (as documented) at patient's floor/unit and/or counseling patient: Coding Level of Care Code 74634 Subseq Hosp Care Lvl 3 Diagnoses End-stage renal disease on hemodialysis N18.6; Z99.2 Anemia of chronic disease D63.8 Hyperphosphatemia E83.39 Acute osteomyelitis of right foot M86.171
[2022-02-10] MEDS ORDERED: CEFEPIME 2,000 MG in SYRINGE 0 ML IV SCH (14:00)
--- NOTE | 2022-02-10 14:16 | Pharmacy Report ---
Pharmacy Glycemic Short Note 2 - Date of Service February 10, 2022 - Glycemic Short BSG Results (Last 24 hours): 02/09/22 02/09/22 02/10/22 17:33 20:39 08:15 Glucose POC Glucose 112 H 115 H 165 H 02/10/22 08:43 Glucose 183 H POC Glucose OUTPATIENT ANTIDIABETIC REGIMEN: * Toujeo 33 units SQ Daily * A1c 7.6% (01/26/22) -- unreliable in the setting of ESRD on HD ASSESSMENT: 02/10/22: * BSGs [phone] mg/dL previous 24H. Fasting above goal this AM, will slightly increase basal * HD today * Continue current novolog parameters 02/09/22: * BSGs 370-695-84-142mg/dL the last 24h. Fasting within goal this AM. BSGs reasonably controlled. Received 7 units of basal and 8 units of bolus insulin yesterday. * Tolerating diet, stressors stable. * No change to insulin parameters today. 02/07/22: * BSG ranging 120-188 mg/dL w/ fasting BSG this morning of 172 mg/dL - above goal * Received 14 units of insulin yesterday (6 units of basal) * Increased basal by 1 unit and maintained current NovoLog parameters (CF 25 and CR 8 with goal 110-140) 02/05/22: * BSGs reasonably well-controlled yesterday, ranging 120-180 mg/dL w/ fasting BSG this morning of 133 mg/dL * Received 28 units of insulin (6 units of basal and 22 units of prandial/correctional bolus) * Will continue with increased basal and maintain current Novolog parameters * Hemodialysis scheduled for tomorrow (02/06/22) 02/01/22: * Pt was NPO yesterday for procedure in the OR. He declined receiving any basal/bolus insulin during the time in which he was NPO. BSGs remained fairly stable. * Pt is scheduled to receive HD today. * No changes required at this time. Will continue to follow. 01/30 * BSGs very well-controlled yesterday, ranging 117-144 mg/dL w/ fasting BSG of 123 mg/dL this morning * Received 13 units of insulin (5 units of basal and 8 units of bolus) * Will continue yesterday's AM basal dose with possible scale this evening * Hemodialysis scheduled for today * Insulin requirements below reported outpatient ones, will 01/26 * 51 yo male, admitted with osteomyelitis of right foot on IV Zosyn and Daptomycin, PMH of ESRD on MWF dialysis, chronic respiratory failure on 4 L of oxygen at home, Type 2 diabetes on 33 units daily of Toujeo, HTN, AF, and pacemaker placement (1 week ago). * Patient refused HS dose of basal insulin ordered last night by admitting provider, received 1 unit of NovoLog correctional insulin, euglycemic this morning. * Patient managed on basal insulin only at home, will begin Lantus at about half of home basal dose, and use NovoLog for correctional and prandial insulin w [facility] inpatient. PLAN FOR INPATIENT GLYCEMIC CONTROL: * Basal insulin * Lantus 8 units SQ daily * Bolus insulin * NovoLog per scale ACHS or Q6hrs while NPO * Goal Range: Low 110 mg/dL - High 140 mg/dL * Correction Factor: 25 mg/dL/unit * Nutritional / Prandial insulin per carb ratio of 1 unit per 8 grams CHO consumed
[2022-02-10] MEDS: CLOPIDOGREL BISULFATE 75 MG TAB PO SCH (14:53)
[2022-02-10] MEDS: SEVELAMER HCL 800 MG TABLET PO SCH ×3 (14:53→18:04)
[2022-02-10] MEDS: CHOLECALCIFEROL 1,000 UNITS 25 MCG TAB PO SCH (14:53)
[2022-02-10] MEDS: ASPIRIN 81 MG ECTAB PO SCH (14:53)
[2022-02-10] MEDS: AMIODARONE 200 MG TAB PO SCH (14:53)
[2022-02-10] MEDS: APIXABAN 5 MG TABLET PO SCH ×2 (14:53→20:42)
[2022-02-10] MEDS: ADVANCED PROBIOTIC 1250 MG CAPSULE PO SCH (14:54)
[2022-02-10] MEDS: MONTELUKAST SODIUM 10 MG TABLET PO SCH (14:54)
[2022-02-10] MEDS: hydrALAZINE HCL 25 MG TAB PO SCH ×2 (14:54→20:42)
[2022-02-10] MEDS: NEPHROCAPS PO SCH (14:54)
[2022-02-10] MEDS: PANTOprazole 40 MG TAB PO SCH (14:54)
[2022-02-10] MEDS: FLUTICASONE/VILANTEROL 100/25MCG 14 PUFFS/INHALER INH SCH (14:55)
[2022-02-10] MEDS: RANOLAZINE 500 MG ER TAB PO SCH ×2 (14:55→20:42)
--- NOTE | 2022-02-10 15:28 | Infectious Disease Progress Nt ---
Date of Service February 10, 2022 Assessment & Plan (1) Acute osteomyelitis of right foot: (2) Diabetic infection of right foot: (3) Ulcer of extremity due to chronic venous insufficiency: (4) Status post placement of implantable loop recorder: Plan 51 yo M with h/o ESRD on HD MWF, chronic hypoxemic respiratory failure secondary to restrictive lung disease and on 4 L of oxygen at home, PPM, type 2 diabetes, hypertension, atrial fibrillation admitted to [facility] for R foot infection. Infectious diseases has been consulted for R foot osteomyelitis s/p 2nd metatarsal resection with residual osteomyelitis. Xray R foot shows prior resection of 2nd toe with pronounced osteomyelitis involving the distal aspect of the second metatarsal with associated pathologic fracturing. Possible additional cortical erosions of the third proximal phalanx and first DIP joint with third proximal phalangeal pathologic fracture. 01/26 Angiogram showed peripheral vascular disease with no sonographic evidence of high-grade stenosis On admission, HD stable afebrile. Initial labs on 01/25 notable for WBC 9.57 ESR 66, CRP 5.17, positive troponins, 01/25 Blood culture No Growth 01/25 Wound culture grew Pseudomonas aeruginosa, no resistance. He went to OR on 01/27 for 2nd Metatarsal Resection then 01/31 for primary closure. 01/27 OR cultures growing Cutibacterium acnes (no sensitivities reported) I spoke with Micro lab and this would have to be a send out. Pathology shows right second metatarsal, resection: Abundant fat necrosis, reactive bone formation, and chronic osteomyelitis Discussion: Patient with residual osteomyelitis, prior culture grew PSA from wound and patient was on IV therapy for 72 hours. OR cultures are growing C. acnes, Typically this a very sensitive organism to PCN. Micro is unable to do sensi in house. I suspect PSA is major component and given broad abx did not grow intra-op. I would recommend coverage for both organisms with Cefepime. Longer term Cipro >4 weeks associated Cdiff, prolonged Qtc et. Cefepime to be given at HD 2/2/2G on M// Recommend C/W Cefepime to cover PSA and C. acnes with HD, 2G/2G/2G qMWF Weekly CBCD, CMP, ESR, CRP to primary care physician, ideally follow up with local ID physician given duration of abx greater than 2 weeks. EOT: 6 weeks from resection 01/27- 03/10/22 I spoke with primary team regarding these recommendations ID will s/o please call me with any questions or concerns. Cathy Gutierrez MD [facility], ID Connect Admission and Anticipated Discharge Date Admission Date: January 25, 2022 Subjective This patient recommendation is based on a telemedicine consult request which was completed asynchronously through chart review and information provided by the primary physician. The patient was not seen or examined today. The evaluation is consultative in nature and all patient care and treatment decisions can either be accepted or rejected by the patient's primary hospital-based treating physician using their own independent medical judgment for their patient. 24 hours: GORGE Patient at HD today and was unable to see live ABX changed from Cipro to Cefepime Results & Data ([facility]) Vital Signs (Past 12 Hours) Vital Signs Temp Pulse Pulse Pulse Resp BP BP 02/10/22 13:20 36.7 C 159/86 H 02/10/22 13:00 69 155/68 H 02/10/22 12:30 69 144/72 H 02/10/22 12:00 68 113/88 02/10/22 11:30 67 147/80 H 02/10/22 11:38 02/10/22 11:00 70 135/76 02/10/22 10:30 75 105/66 02/10/22 10:00 70 127/68 02/10/22 09:30 70 131/75 02/10/22 09:10 36.5 C 70 02/10/22 07:17 36.6 C 70 18 156/81 H Pulse Ox O2 Del Method O2 Flow Rate 02/10/22 13:20 02/10/22 13:00 02/10/22 12:30 02/10/22 12:00 02/10/22 11:30 02/10/22 11:38 Nasal Cannula 4 02/10/22 11:00 02/10/22 10:30 02/10/22 10:00 02/10/22 09:30 02/10/22 09:10 02/10/22 07:17 100 Nasal Cannula 4 Laboratory Results Laboratory Results - last 48 hr 02/08/22 02/08/22 02/09/22 17:18 20:42 08:16 WBC 7.47 RBC 3.39 L Hgb 10.0 L Hct 31.5 L MCV 92.9 MCH 29.5 MCHC 31.7 L RDW Std Deviation 58.3 H RDW Coeff of Octavio 17.1 H Plt Count 159 MPV 11.2 Immature Gran % (Auto) 0.4 Neut % (Auto) 76.8 Lymph % (Auto) 10.4 [place] % (Auto) 10.4 Eos % (Auto) 1.1 Baso % (Auto) 0.9 Neut # (Auto) 5.73 Lymph # (Auto) 0.78 L [place] # (Auto) 0.78 Eos # (Auto) 0.08 Baso # (Auto) 0.07 Immature Gran # (Auto) 0.03 H Sodium Potassium Chloride Carbon Dioxide Anion Gap BUN Creatinine Est Cr Clr Drug Dosing Est GFR ( Amer) Est GFR (Non-Af Amer) BUN/Creatinine Ratio Glucose POC Glucose 186 H 99 Calcium 02/09/22 02/09/22 02/09/22 08:16 08:26 12:26 WBC RBC Hgb Hct MCV MCH MCHC RDW Std Deviation RDW Coeff of Octavio Plt Count MPV Immature Gran % (Auto) Neut % (Auto) Lymph % (Auto) [place] % (Auto) Eos % (Auto) Baso % (Auto) Neut # (Auto) Lymph # (Auto) [place] # (Auto) Eos # (Auto) Baso # (Auto) Immature Gran # (Auto) Sodium 138 Potassium 3.2 L Chloride 96 L Carbon Dioxide 29 Anion Gap 13 H BUN 31 H Creatinine 7.64 H* D Est Cr Clr Drug Dosing 12.6 Est GFR ( Amer) 8.5 Est GFR (Non-Af Amer) 7.3 BUN/Creatinine Ratio 4.1 L Glucose 144 H POC Glucose 142 H 223 H Calcium 8.5 02/09/22 02/09/22 02/10/22 17:33 20:39 08:15 WBC RBC Hgb Hct MCV MCH MCHC RDW Std Deviation RDW Coeff of Octavio Plt Count MPV Immature Gran % (Auto) Neut % (Auto) Lymph % (Auto) [place] % (Auto) Eos % (Auto) Baso % (Auto) Neut # (Auto) Lymph # (Auto) [place] # (Auto) Eos # (Auto) Baso # (Auto) Immature Gran # (Auto) Sodium Potassium Chloride Carbon Dioxide Anion Gap BUN Creatinine Est Cr Clr Drug Dosing Est GFR ( Amer) Est GFR (Non-Af Amer) BUN/Creatinine Ratio Glucose POC Glucose 112 H 115 H 165 H Calcium 02/10/22 02/10/22 02/10/22 08:43 08:43 14:25 WBC 9.61 RBC 3.62 L Hgb 10.9 L Hct 34.3 L MCV 94.8 MCH 30.1 MCHC 31.8 L RDW Std Deviation 59.0 H RDW Coeff of Octavio 17.0 H Plt Count 176 MPV 10.6 Immature Gran % (Auto) 0.4 Neut % (Auto) 81.5 Lymph % (Auto) 8.3 [place] % (Auto) 7.9 Eos % (Auto) 0.9 Baso % (Auto) 1.0 Neut # (Auto) 7.82 H Lymph # (Auto) 0.80 L [place] # (Auto) 0.76 Eos # (Auto) 0.09 Baso # (Auto) 0.10 Immature Gran # (Auto) 0.04 H Sodium 135 L Potassium 3.6 Chloride 92 L Carbon Dioxide 27 Anion Gap 16 H BUN 45 H Creatinine 9.25 H* D Est Cr Clr Drug Dosing 10.4 Est GFR ( Amer) 6.7 Est GFR (Non-Af Amer) 5.8 BUN/Creatinine Ratio 4.9 L Glucose 183 H POC Glucose 122 H Calcium 8.8 Microbiology 01/27/22 Unknown Toe,Right Second Gram Stain - Final 01/27/22 Unknown Toe,Right Second Aerobic and Anaerobic Culture - Final Cutibacterium (Propioni) acnes 01/25/22 18:25 Blood Aerobic Blood Culture - Final No growth in Aerobic bottle after 5 days. 01/25/22 18:25 Blood Anaerobic Blood Culture - Final No growth in Anaerobic bottle after 5 days. 01/25/22 16:36 Blood Aerobic Blood Culture - Final No growth in Aerobic bottle after 5 days. 01/25/22 16:36 Blood Anaerobic Blood Culture - Final No growth in Anaerobic bottle after 5 days. 01/25/22 19:21 Foot,Right Gram Stain - Final 01/25/22 19:21 Foot,Right Wound Culture - Final Pseudomonas aeruginosa Medications Administered Current Inpatient Medications Acetaminophen (Acetaminophen 325 Mg Tab) 650 mg PO Q4H PRN PRN Reason: Pain or Fever Stop: 02/24/22 20:53 Last Admin: 02/08/22 17:37 Dose: 650 mg Albuterol (Albuterol Hfa 8 Gm Inhaler) 2 puffs INH Q6H PRN PRN Reason: Shortness Of Breath Or Wheezing Stop: 02/24/22 20:53 Amiodarone HCl (Amiodarone 200 Mg Tab) 200 mg PO QAM [facility] Stop: 03/04/22 08:59 Last Admin: 02/10/22 14:53 Dose: 200 mg Apixaban (Apixaban 5 Mg Tablet) 5 mg PO BID [facility] Stop: 03/01/22 20:59 Last Admin: 02/10/22 14:53 Dose: 5 mg Aspirin (Aspirin 81 Mg Ectab) 81 mg PO QAM [facility] Stop: 02/25/22 08:59 Last Admin: 02/10/22 14:53 Dose: 81 mg Atorvastatin Calcium (Atorvastatin 40 Mg Tab) 40 mg PO HS [facility] Stop: 03/03/22 20:59 Last Admin: 02/09/22 21:04 Dose: 40 mg Clopidogrel Bisulfate (Clopidogrel Bisulfate 75 Mg Tab) 75 mg PO [facility] Stop: 02/25/22 08:59 Last Admin: 02/10/22 14:53 Dose: 75 mg Dextrose (Dextrose 50% 50 Ml Syringe) 25 - 50 ml IV UD PRN; Protocol PRN Reason: Hypoglycemia Protocol Stop: 02/24/22 20:53 Fluticasone/Vilanterol (Fluticasone/Vilanterol 100/25mcg 14 Puffs/Inhaler) 1 puffs INH DAILY [facility] Stop: 02/25/22 08:59 Last Admin: 02/10/22 14:55 Dose: 1 puffs Glucagon (Glucagon For Inj 1 Mg Vial) 1 mg SQ UD PRN; Protocol PRN Reason: Hypoglycemia Protocol Stop: 02/24/22 20:53 Glucose (Glucose 40% Gel 15 Gm Tube) 15 - 30 gm PO UD PRN; Protocol PRN Reason: Hypoglycemia Protocol Stop: 02/24/22 20:53 Glucose (Glucose 10 Tab/Tube) 4 - 8 tab PO UD PRN; Protocol PRN Reason: Hypoglycemia Treatment Stop: 02/24/22 20:53 Hydralazine HCl (Hydralazine Hcl 25 Mg Tab) 25 mg PO BID [facility] Stop: 02/25/22 08:59 Last Admin: 02/10/22 14:54 Dose: 25 mg Cefepime HCl 2,000 mg/ Syringe 20 mls @ 5 mls/min IV MoWeFr@1400 [facility]; Protocol Stop: 02/28/22 13:59 Last Admin: 02/10/22 15:07 Dose: 5 mls/min Insulin Aspart (Insulin Aspart Per Unit) 0 units SC ACHS [facility] Stop: 02/24/22 20:59 Last Admin: 02/10/22 14:59 Dose: 6 units Insulin Glargine (Lantus Per Unit Charge) 8 units SQ DAILY [facility]; Protocol Stop: 03/09/22 08:59 Last Admin: 02/10/22 09:01 Dose: 1 units Lactobacillus Acidophilus (Advanced Probiotic 1250 Mg Capsule) 2 cap PO DAILY [facility] Stop: 03/02/22 14:14 Last Admin: 02/10/22 14:54 Dose: 2 cap Miscellaneous (Carbohydrates For Hypoglycemia ) 15 - 30 gm PO UD PRN PRN Reason: Hypoglycemia Protocol Stop: 02/24/22 20:53 Miscellaneous Information (Pharmacy Glycemic Mgmt Consult) 1 each N/A UD PRN PRN Reason: Consult Stop: 02/24/22 20:53 Montelukast Sodium (Montelukast Sodium 10 Mg Tablet) 10 mg PO QAM [facility] Stop: 02/25/22 08:59 Last Admin: 02/10/22 14:54 Dose: 10 mg Ondansetron HCl (Ondansetron Inj 2 Mg/Ml 2 Ml Vial) 4 mg IV Q6H PRN PRN Reason: Nausea Stop: 02/24/22 20:53 Last Admin: 02/07/22 12:56 Dose: 4 mg Pantoprazole Sodium (Pantoprazole 40 Mg Tab) 40 mg PO DAILY [facility] Stop: 02/25/22 08:59 Last Admin: 02/10/22 14:54 Dose: 40 mg Polyethylene Glycol (Polyethylene (Miralax) 17 Gm Pack) 17 gm PO DAILY PRN PRN Reason: Constipation Stop: 02/24/22 20:53 Ranolazine (Ranolazine 500 Mg Er Tab) 500 mg PO Q12H [facility] Stop: 02/24/22 20:59 Last Admin: 02/10/22 14:55 Dose: 500 mg Sevelamer HCl (Sevelamer Hcl 800 Mg Tablet) 800 mg PO TIDM [facility] Stop: 03/07/22 11:59 Last Admin: 02/10/22 15:06 Dose: Not Given Vitamin B Complex/Folic Acid (Nephrocaps) 1 cap PO QAM [facility] Stop: 03/07/22 08:59 Last Admin: 02/10/22 14:54 Dose: 1 cap Vitamin D (Cholecalciferol 1,000 Units 25 Mcg Tab) 1,000 units PO DAILY [facility] Stop: 02/25/22 08:59 Last Admin: 02/10/22 14:53 Dose: 1,000 units
[2022-02-10] MEDS: ATORVASTATIN 40 MG TAB PO SCH (20:42)
[2022-02-11 07:10] LABS: Basophils # (auto) 0.09 K/uL (0-0.2); Eosinophils # (auto) 0.07 K/uL (0-0.50); Eosinophils % (auto) 0.8 %; Hematocrit (blood only) 33.7 % (40.1-51.0); Hemoglobin 10.8 g/dl (14.0-18.0); Immature Granulocytes # (auto) 0.03 K/uL (0.00-0.02); Immature Granulocytes % (auto) 0.3 %; Lymphocytes # (auto) 0.89 K/uL (1.2-3.4); Mean Corpuscular Hemoglobin 29.8 pg (25.0-34.0); Mean Corpuscular Volume 92.8 fL (80.0-100.0); Mean Platelet Volume 10.6 fL (9.4-12.4); Monocytes # (auto) 0.75 K/uL (0.24-0.82); Monocytes % (auto) 8.4 %; Neutrophils # (auto) 7.06 K/uL (1.4-6.5); Neutrophils % (auto) 79.5 %; Platelet Count 161 K/uL (130-400); RDW Coefficient of Variation 16.9 % (11.5-14.5); RDW Standard Deviation 58.3 fL (36.4-46.3); Red Blood Count 3.63 M/uL (4.63-6.08); White Blood Count 8.89 K/ul (4.8-10.8)
--- NOTE | 2022-02-11 07:30 | Hospitalist Progress Note ---
Date of Service February 11, 2022 Assessment & Plan (1) Acute osteomyelitis of right foot: Plan: Patient is a 51-year-old male with past medical history of ESRD on HD MWF, chronic hypoxemic respiratory failure secondary to restrictive lung disease and pulmonary hypertension on 4 L of oxygen at home, type 2 diabetes on 33 units daily of Toujeo, hypertension, atrial fibrillation, and pacemaker placement (see insertion 1 week ago) coming into the hospital for evaluation of a right foot infection which has since been treated with antibiotics and metatarsal resection with subsequent closure of wound awaiting placement at [facility]. -Still awaiting dialysis bed at [facility] or [place]. No updates at this time. Acute osteomyelitis of right foot s/p 2nd metatarsal resection with residual osteomyelitis MRI of right foot could not be completed due to recent pacemaker placement. Xray R foot - Possible additional cortical erosions of the third proximal phalanx and first DIP joint with third proximal phalangeal pathologic fracture. ESR and CRP suggestive of active osteomyelitis infection. 01/26 Angiogram showed peripheral vascular disease with no sonographic evidence of high-grade stenosis s/p 2nd Metatarsal Resection on right on 01/27 and closure of wound on 01/31 with podiatry. Pathology shows right second metatarsal, resection: Abundant fat necrosis, reactive bone formation, and chronic osteomyelitis Wound culture grew pseudomonas, cutibacterium acnes from resection culture. Started on Zosyn and daptomycin then transitioned to ciprofloxacin with renal dosing 03/30 to diarrhea - c. dif negative. -Per discussion with [facility] ID tele-consult 02/09/22 switched from cipro to cefepime for appropriate coverage of cutibacterium acnes and pseudomonas -Cefepime 2g after hemodialysis MWF for 6 weeks since date of resection (01/27 to 02/28/22) Ulcer of extremity due to chronic venous insufficiency: See plan above Elevated troponin: Elevated troponin on admission= 129, repeat 120. Denies chest pain, ECG without ischemic changes -> likely secondary to ESRD. End-stage renal disease on hemodialysis: -MWF hemodialysis -Nephrology following -Avoid nephrotoxic agents PAF (paroxysmal atrial fibrillation): Eliquis 5 mg BID. Amiodarone held on admission, looking back on cardiology notes, should remain on amiodarone Obstructive sleep apnea Moderate pulmonary hypertension: Stable, continue CPAP at night Restrictive lung disease secondary to obesity: Continue CPAP at night as above. Continue Breo Ellipta, albuterol as needed, montelukast Chronic diastolic heart failure: HFrEF 35%-40% Not currently on beta-alesia. Most recent echo on 01/08/2022 at [facility] consistent of left ventricular size moderately dilated, left ventricular hypertrophy, diffuse hypokinesis, left ventricular function mild to moderately decreased, ejection fraction of 35 to 40%. Consider starting GDMT outpatient with beta- alesia, spironolactone, SGLT2 etc. GERD (gastroesophageal reflux disease): Continue omeprazole Hyperlipidemia: Continue statin CAD (coronary artery disease): Continue aspirin, Plavix, ranolazine Diabetes mellitus type 2, uncontrolled: Last A1c on 12/29 was 7.1; 7.6 on admission. Typically takes 33 units of Toujeo daily. Basal bolus with sliding scale and carb consistent diet while in hospital. Hypertension: Continue hydralazine twice daily Orthostatic hypotension: Typically receives midodrine 3 times daily but will hold for now if he becomes hypotensive, consider restarting Dispo: med/surg, awaiting HD bed at [facility]/rehab with dialysis bed. DVT ppx: Plavix Code: full FENGI: Carb consistent, dialysis (2) Ulcer of extremity due to chronic venous insufficiency: (3) Elevated troponin: (4) End-stage renal disease on hemodialysis: (5) PAF (paroxysmal atrial fibrillation): (6) Moderate pulmonary hypertension: (7) GERD (gastroesophageal reflux disease): (8) Restrictive lung disease secondary to obesity: (9) Chronic diastolic heart failure: (10) Obstructive sleep apnea: (11) Hyperlipidemia: (12) CAD (coronary artery disease): (13) Diabetes mellitus type 2, uncontrolled: (14) Hypertension: (15) Orthostatic hypotension: Admission and Anticipated Discharge Date Admission Date: January 25, 2022 Supervising Physician Co-Signing Physician Notes Resident Physician Supervision Note: I independently interviewed and examined the patient and verified the mata history and physical, reviewed labs and image studies and agree with resident findings and care plan. Subjective Patient seen and examined at bedside. No acute events overnight. Patient awaiting dialysis bed at [facility] or [place]. States he is feeling fine but frustrated that he has not been able to be discharged yet. Review of Systems Review of Systems: As per HPI Physical Exam Constitutional: WD/WN, vitals as above Neck: trachea midline, no thyromegaly Respiratory: normal respiratory effort, lungs clear to auscultation Cardiovascular: RRR, no murmur, no edema Extremities: + AV fistula Skin: no rashes, warm and dry Psychiatric: A+Ox3, euthymic affect Results & Data Results & Data ([facility]) Vital Signs (Past 12 Hours) Vital Signs O2 Del Method 02/10/22 20:00 CPAP Resident Activity Tracking Resident Involvement: Resident Care Provided Care Provided: Adult Hospital Medicine (1) CAD (coronary artery disease) Associated angina: without angina Coronary Disease-Associated Artery/Lesion type: [place] artery [place] vs. transplanted heart: [place] heart Qualified Code(s): I25.10 - Atherosclerotic heart disease of [place] coronary artery without angina pectoris (2) Diabetes mellitus type 2, uncontrolled Glycemic state: with hyperglycemia Qualified Code(s): E11.65 - Type 2 diabetes mellitus with hyperglycemia
[2022-02-11 07:41] LABS: BUN Creatinine Ratio 4.7 (10-20); Calcium 8.4 mg/dl (8.5-10.1); Creatinine Clr Calc Pharmacy 15.2 ml/min; Est GFR (African American) 10.5 ml/min; Est GFR (Non-African American) 9.1 ml/min; Potassium 3.4 mmol/L (3.5-5.1)
[2022-02-11] MEDS: PANTOprazole 40 MG TAB PO SCH (08:14)
[2022-02-11] MEDS: ADVANCED PROBIOTIC 1250 MG CAPSULE PO SCH (08:14)
[2022-02-11] MEDS: hydrALAZINE HCL 25 MG TAB PO SCH ×2 (08:14→20:03)
[2022-02-11] MEDS: SEVELAMER HCL 800 MG TABLET PO SCH ×3 (08:14→18:06)
[2022-02-11] MEDS: NEPHROCAPS PO SCH (08:14)
[2022-02-11] MEDS: CHOLECALCIFEROL 1,000 UNITS 25 MCG TAB PO SCH (08:14)
[2022-02-11] MEDS: ASPIRIN 81 MG ECTAB PO SCH (08:14)
[2022-02-11] MEDS: APIXABAN 5 MG TABLET PO SCH ×2 (08:15→20:02)
[2022-02-11] MEDS: MONTELUKAST SODIUM 10 MG TABLET PO SCH (08:15)
[2022-02-11] MEDS: FLUTICASONE/VILANTEROL 100/25MCG 14 PUFFS/INHALER INH SCH (08:15)
[2022-02-11] MEDS: CLOPIDOGREL BISULFATE 75 MG TAB PO SCH (08:15)
[2022-02-11] MEDS: AMIODARONE 200 MG TAB PO SCH (08:15)
[2022-02-11] MEDS: RANOLAZINE 500 MG ER TAB PO SCH ×2 (08:15→20:03)
[2022-02-11] MEDS: INSULIN ASPART PER UNIT SC SCH ×4 (09:25→20:44)
[2022-02-11] MEDS: LANTUS PER UNIT CHARGE SQ SCH (09:26)
[2022-02-11] MEDS: ONDANSETRON INJ 2 MG/ML 2 ML VIAL IV PRN (12:01)
--- NOTE | 2022-02-11 13:29 | Nephrology Progress Note ---
Date of Service February 11, 2022 Assessment & Plan (1) End-stage renal disease on hemodialysis: Plan: ESKD on IHD at [facility]. Outpatient Rx MWF 4 hours and 15 min, Qb 400 via AVF, 2 K bath. EDW 105.5 kg. BP and volume status acceptable. Clearance appropriate. Electrolytes controlled. Medications appropriate for kidney function. Next anticipated HD will be Sunday. (2) Diabetic infection of right foot: Plan: s/p R 2nd metatarsal resection 01/27/22. Closure of surgical incision 01/31/22. Cefepime dosing per ID: 2 gm Q MWF post HD x 6 weeks. (3) Anemia of chronic disease: Plan: Epogen 33924 units provided 02/08. Admission and Anticipated Discharge Date Admission Date: January 25, 2022 Subjective No acute events overnight. Ryan feels well this AM. No acute complaints today. Completed HD yesterday without complications. Review of Systems Review of Systems: All systems reviewed & are unremarkable except as noted in HPI & below Physical Exam Constitutional: well developed; no acute distress Eyes: no scleral abnormality and no corneal abnormality ENMT: Mouth: no oral mucosal abnormality and oral mucous membranes not dry Neck: normal visual inspection and trachea midline Respiratory: normal respiratory effort Auscultation: lungs clear to auscultation bilaterally Cardiovascular: Rate/Rhythm: regular rate Heart Sounds: normal S1, normal S2 and + murmur Extremities: + pedal edema, + edema and + AV fistula Musculoskeletal: Extremities: + foot abnormality; no cyanosis and no clubbing Skin: normal turgor, + lesion, + dry skin and + excoriations; no jaundice Neurologic: Motor/Sensory: no tremor and no asterixis Psychiatric: Orientation: alert and oriented x 3 Results & Data ([facility]) Vital Signs (Past 12 Hours) Vital Signs Temp Pulse Resp BP Pulse Ox O2 Del Method O2 Flow Rate 02/11/22 09:38 Nasal Cannula, CPAP 4 02/11/22 08:19 36.8 C 68 16 160/79 H 98 Room Air Laboratory Results Laboratory Results - last 24 hr 02/10/22 02/10/22 02/10/22 14:25 15:35 17:34 WBC RBC Hgb Hct MCV MCH MCHC RDW Std Deviation RDW Coeff of Octavio Plt Count MPV Immature Gran % (Auto) Neut % (Auto) Lymph % (Auto) [place] % (Auto) Eos % (Auto) Baso % (Auto) Neut # (Auto) Lymph # (Auto) [place] # (Auto) Eos # (Auto) Baso # (Auto) Immature Gran # (Auto) Sodium Potassium Chloride Carbon Dioxide Anion Gap BUN Creatinine Est Cr Clr Drug Dosing Est GFR ( Amer) Est GFR (Non-Af Amer) BUN/Creatinine Ratio Glucose POC Glucose 122 H 171 H Calcium Hep Bs Antigen Pending Hep Bs Ag Confirmation Pending Hep Bs Antibody, Quant Pending Hep B Core IgM Ab Pending 02/10/22 02/11/22 02/11/22 20:15 06:35 06:35 WBC 8.89 RBC 3.63 L Hgb 10.8 L Hct 33.7 L MCV 92.8 MCH 29.8 MCHC 32.0 RDW Std Deviation 58.3 H RDW Coeff of Octavio 16.9 H Plt Count 161 MPV 10.6 Immature Gran % (Auto) 0.3 Neut % (Auto) 79.5 Lymph % (Auto) 10.0 [place] % (Auto) 8.4 Eos % (Auto) 0.8 Baso % (Auto) 1.0 Neut # (Auto) 7.06 H Lymph # (Auto) 0.89 L [place] # (Auto) 0.75 Eos # (Auto) 0.07 Baso # (Auto) 0.09 Immature Gran # (Auto) 0.03 H Sodium 138 Potassium 3.4 L Chloride 97 L Carbon Dioxide 29 Anion Gap 12 H BUN 30 H Creatinine 6.39 H* D Est Cr Clr Drug Dosing 15.2 Est GFR ( Amer) 10.5 Est GFR (Non-Af Amer) 9.1 BUN/Creatinine Ratio 4.7 L Glucose 150 H POC Glucose 95 Calcium 8.4 L Hep Bs Antigen Hep Bs Ag Confirmation Hep Bs Antibody, Quant Hep B Core IgM Ab 02/11/22 02/11/22 08:09 12:08 WBC RBC Hgb Hct MCV MCH MCHC RDW Std Deviation RDW Coeff of Octavio Plt Count MPV Immature Gran % (Auto) Neut % (Auto) Lymph % (Auto) [place] % (Auto) Eos % (Auto) Baso % (Auto) Neut # (Auto) Lymph # (Auto) [place] # (Auto) Eos # (Auto) Baso # (Auto) Immature Gran # (Auto) Sodium Potassium Chloride Carbon Dioxide Anion Gap BUN Creatinine Est Cr Clr Drug Dosing Est GFR ( Amer) Est GFR (Non-Af Amer) BUN/Creatinine Ratio Glucose POC Glucose 184 H 198 H Calcium Hep Bs Antigen Hep Bs Ag Confirmation Hep Bs Antibody, Quant Hep B Core IgM Ab PG Care Time/CCT Total # of Minutes Spent Total Time Spent with Patient: Total time spent is greater than 50% in coordination of care (as documented) at patient's floor/unit and/or counseling patient: Coding Level of Care Code 40766 Subseq Hosp Care Lvl 3 Diagnoses End-stage renal disease on hemodialysis N18.6; Z99.2 Diabetic infection of right foot E11.628; L08.9 Anemia of chronic disease D63.8
[2022-02-11] MEDS: ATORVASTATIN 40 MG TAB PO SCH (20:03)
--- NOTE | 2022-02-11 20:49 | Orthopedic Progress Note ---
Date of Service February 11, 2022 Assessment & Plan (1) Diabetic infection of right foot: Plan: Patient seen, evaluated, and treated. Dry sterile dressing changed with out incident. Will continue to change while in house. (2) Acute osteomyelitis of right foot: Admission and Anticipated Discharge Date Admission Date: January 25, 2022 Subjective Patient seen at bedside. He relates no complaints. Physical Exam Physical Exam: Dressing clean, dry, and intact. Sutures intact. Constitutional: WD/WN, vitals as above Eyes: PERRL, conjunctivae normal, anicteric sclerae ENMT: external ear and nose normal, oropharynx normal Respiratory: normal respiratory effort Psychiatric: Orientation: alert and oriented x 3 Results & Data ([facility]) Vital Signs (Past 12 Hours) Vital Signs Temp Pulse Resp BP Pulse Ox O2 Del Method O2 Flow Rate 02/11/22 20:09 Nasal CPAP 02/11/22 20:01 36.8 C 70 18 152/90 H 98 Room Air 02/11/22 15:22 36.5 C 71 16 149/90 H 99 Room Air 02/11/22 09:38 Nasal Cannula, CPAP 4
[2022-02-12 06:58] LABS: HBSAG NON-REACTIVE (NON-REACTIVE); Hepatitis B Core Antibody IgM NON-REACTIVE (NON-REACTIVE); Hepatitis B Surface Ab, Quant 29 mIU/mL (> OR = 10)
[2022-02-12 07:20] LABS: Basophils # (auto) 0.09 K/uL (0-0.2); Basophils % (auto) 1.1 %; Eosinophils # (auto) 0.08 K/uL (0-0.50); Hematocrit (blood only) 33.1 % (40.1-51.0); Hemoglobin 10.4 g/dl (14.0-18.0); Immature Granulocytes # (auto) 0.03 K/uL (0.00-0.02); Immature Granulocytes % (auto) 0.4 %; Lymphocytes # (auto) 0.67 K/uL (1.2-3.4); Lymphocytes % (auto) 8.5 %; Mean Corpuscular Hemoglobin 29.5 pg (25.0-34.0); Mean Corpuscular Hgb Conc 31.4 g/dL (32.0-36.0); Mean Platelet Volume 10.9 fL (9.4-12.4); Monocytes # (auto) 0.68 K/uL (0.24-0.82); Monocytes % (auto) 8.6 %; Neutrophils # (auto) 6.37 K/uL (1.4-6.5); Neutrophils % (auto) 80.4 %; Platelet Count 150 K/uL (130-400); RDW Standard Deviation 58.1 fL (36.4-46.3); Red Blood Count 3.52 M/uL (4.63-6.08); White Blood Count 7.92 K/ul (4.8-10.8)
[2022-02-12 08:36] LABS: BUN Creatinine Ratio 5.6 (10-20); Calcium 8.3 mg/dl (8.5-10.1); Creatinine Clr Calc Pharmacy 12.1 ml/min; Est GFR (Non-African American) 6.9 ml/min; Potassium 3.6 mmol/L (3.5-5.1)
[2022-02-12] MEDS: ADVANCED PROBIOTIC 1250 MG CAPSULE PO SCH (09:27)
[2022-02-12] MEDS: APIXABAN 5 MG TABLET PO SCH (09:27)
[2022-02-12] MEDS: CHOLECALCIFEROL 1,000 UNITS 25 MCG TAB PO SCH (09:27)
[2022-02-12] MEDS: CLOPIDOGREL BISULFATE 75 MG TAB PO SCH (09:27)
[2022-02-12] MEDS: ASPIRIN 81 MG ECTAB PO SCH (09:27)
[2022-02-12] MEDS: SEVELAMER HCL 800 MG TABLET PO SCH (09:27)
[2022-02-12] MEDS: hydrALAZINE HCL 25 MG TAB PO SCH (09:27)
[2022-02-12] MEDS: AMIODARONE 200 MG TAB PO SCH (09:27)
[2022-02-12] MEDS: RANOLAZINE 500 MG ER TAB PO SCH (09:28)
[2022-02-12] MEDS: FLUTICASONE/VILANTEROL 100/25MCG 14 PUFFS/INHALER INH SCH (09:28)
[2022-02-12] MEDS: MONTELUKAST SODIUM 10 MG TABLET PO SCH (09:28)
[2022-02-12] MEDS: PANTOprazole 40 MG TAB PO SCH (09:28)
[2022-02-12] MEDS: NEPHROCAPS PO SCH (09:28)
[2022-02-12] MEDS: INSULIN ASPART PER UNIT SC SCH (09:30)
[2022-02-12] MEDS: LANTUS PER UNIT CHARGE SQ SCH (09:32)
[2022-02-12] MEDS: ONDANSETRON INJ 2 MG/ML 2 ML VIAL IV PRN (11:16)
--- NOTE | 2022-02-12 11:35 | Nephrology Progress Note ---
Date of Service February 12, 2022 Assessment & Plan (1) End-stage renal disease on hemodialysis: Plan: ESKD on HD MWF. Outpatient Rx MWF 4 hours and 15 min, Qb 400 via AVF, 2 K bath. EDW 105.5 kg. BP and volume status acceptable. Electrolytes controlled. Check metabolic profile tomorrow AM. Medications appropriate for kidney function. Continue renal diet and daily 1.2 L fluid restriction. Next anticipated HD will be tomorrow. Anticipated DC to Rehab in [place] with required transition of nephrology care accordingly. (2) Diabetic infection of right foot: Plan: s/p R 2nd metatarsal resection 01/27/22. Closure of surgical incision 01/31/22. Cefepime dosing per ID: 2 gm Q MWF post HD x 6 weeks. (3) Anemia of chronic disease: Plan: Epogen 76790 units provided 02/08. Check H/H tomorrow prior to HD. Admission and Anticipated Discharge Date Admission Date: January 25, 2022 Subjective No acute events overnight. No complaints this AM. Review of Systems Review of Systems: All systems reviewed & are unremarkable except as noted in HPI & below Physical Exam Constitutional: well developed; no acute distress Eyes: no scleral abnormality and no corneal abnormality ENMT: Mouth: no oral mucosal abnormality and oral mucous membranes not dry Neck: normal visual inspection and trachea midline Respiratory: normal respiratory effort Auscultation: lungs clear to auscultation bilaterally Cardiovascular: Rate/Rhythm: regular rate Heart Sounds: normal S1, normal S2 and + murmur Extremities: + AV fistula; no edema Musculoskeletal: Extremities: + foot abnormality; no cyanosis and no clubbing Skin: + turgor decreased, + dry skin and + excoriations; no jaundice Neurologic: Motor/Sensory: no tremor and no asterixis Psychiatric: Orientation: alert and oriented x 3 Results & Data ([facility]) Vital Signs (Past 12 Hours) Vital Signs Temp Pulse Pulse Resp BP Pulse Ox O2 Del Method 02/12/22 11:19 36.7 C 70 72 16 162/94 H 100 02/12/22 07:32 36.7 C 72 16 162/94 H 100 Nasal Cannula 02/12/22 01:04 Nasal Cannula, CPAP O2 Flow Rate 02/12/22 11:19 02/12/22 07:32 4 02/12/22 01:04 4 Laboratory Results Laboratory Results - last 24 hr 02/10/22 02/11/22 02/11/22 15:35 12:08 17:02 WBC RBC Hgb Hct MCV MCH MCHC RDW Std Deviation RDW Coeff of Octavio Plt Count MPV Immature Gran % (Auto) Neut % (Auto) Lymph % (Auto) [place] % (Auto) Eos % (Auto) Baso % (Auto) Neut # (Auto) Lymph # (Auto) [place] # (Auto) Eos # (Auto) Baso # (Auto) Immature Gran # (Auto) Sodium Potassium Chloride Carbon Dioxide Anion Gap BUN Creatinine Est Cr Clr Drug Dosing Est GFR ( Amer) Est GFR (Non-Af Amer) BUN/Creatinine Ratio Glucose POC Glucose 198 H 158 H Calcium Hep Bs Antigen NON-REACTIVE Hep Bs Ag Confirmation TNP Hep Bs Antibody, Quant 29 Hep B Core IgM Ab NON-REACTIVE SARS-CoV-2, RNA, NAAT 02/11/22 02/12/22 02/12/22 20:29 06:57 06:57 WBC 7.92 RBC 3.52 L Hgb 10.4 L Hct 33.1 L MCV 94.0 MCH 29.5 MCHC 31.4 L RDW Std Deviation 58.1 H RDW Coeff of Octavio 17.0 H Plt Count 150 MPV 10.9 Immature Gran % (Auto) 0.4 Neut % (Auto) 80.4 Lymph % (Auto) 8.5 [place] % (Auto) 8.6 Eos % (Auto) 1.0 Baso % (Auto) 1.1 Neut # (Auto) 6.37 Lymph # (Auto) 0.67 L [place] # (Auto) 0.68 Eos # (Auto) 0.08 Baso # (Auto) 0.09 Immature Gran # (Auto) 0.03 H Sodium 136 Potassium 3.6 Chloride 95 L Carbon Dioxide 27 Anion Gap 14 H BUN 45 H Creatinine 8.03 H* D Est Cr Clr Drug Dosing 12.1 Est GFR ( Amer) 8.0 Est GFR (Non-Af Amer) 6.9 BUN/Creatinine Ratio 5.6 L Glucose 165 H POC Glucose 154 H Calcium 8.3 L Hep Bs Antigen Hep Bs Ag Confirmation Hep Bs Antibody, Quant Hep B Core IgM Ab SARS-CoV-2, RNA, NAAT 02/12/22 02/12/22 08:12 10:55 WBC RBC Hgb Hct MCV MCH MCHC RDW Std Deviation RDW Coeff of Octavio Plt Count MPV Immature Gran % (Auto) Neut % (Auto) Lymph % (Auto) [place] % (Auto) Eos % (Auto) Baso % (Auto) Neut # (Auto) Lymph # (Auto) [place] # (Auto) Eos # (Auto) Baso # (Auto) Immature Gran # (Auto) Sodium Potassium Chloride Carbon Dioxide Anion Gap BUN Creatinine Est Cr Clr Drug Dosing Est GFR ( Amer) Est GFR (Non-Af Amer) BUN/Creatinine Ratio Glucose POC Glucose 172 H Calcium Hep Bs Antigen Hep Bs Ag Confirmation Hep Bs Antibody, Quant Hep B Core IgM Ab SARS-CoV-2, RNA, NAAT Pending PG Care Time/CCT Total # of Minutes Spent Total Time Spent with Patient: Total time spent is greater than 50% in coordination of care (as documented) at patient's floor/unit and/or counseling patient: Coding Level of Care Code 92629 Subseq Hosp Care Lvl 3 Diagnoses End-stage renal disease on hemodialysis N18.6; Z99.2 Diabetic infection of right foot E11.628; L08.9 Anemia of chronic disease D63.8
--- NOTE | 2022-02-12 11:55 | Discharge Summary ---
Date of Service February 12, 2022 Admission HPI Per Admitting Provider Patient is a 51-year-old male with past medical history of ESRD on Sunday dialysis, chronic hypoxemic respiratory failure secondary to restrictive lung disease and pulmonary hypertension on 4 L of oxygen at home, type 2 diabetes on 33 units daily of Toujeo, hypertension, atrial fibrillation, and pacemaker placement (see insertion 1 week ago) coming into the hospital for evaluation of a right foot infection. Patient was recently seen in [place] for multiple problems over the past month. On December 29, patient had an amputation of the second digit on the right due to infection. It seems that the patient was supposed to get set up with a PICC line with IV antibiotics, however, per patient history this had never happened. He reports that shortly after the amputation he began having erythema of the foot and had noticed a few days ago that his fifth right digit had become black and there was extensive infection proximal to the right fifth digit. This is what had brought him to the hospital for evaluation today. In addition to the amputation, patient is also has some cardiac difficulties which includes a history of symptomatic bradycardia requiring a pacemaker which was inserted approximately 1 week ago, he did receive short course of antibiotics after this. Because of the symptomatic bradycardia and elevated troponin during his hospitalization, the patient also had a heart catheterization which revealed a subtotal stenosis of the mid right coronary artery that was nonoperable. Patient was overall stable and able to be discharged home. Currently patient is here otherwise without any nausea, vomiting, chest pain, or headache. Does report that since having the symptomatic bradycardia a couple weeks ago, he has noticed that he has shortness of breath with ambulation. Denies any falls. In terms of his diabetes, reports good adherence with Toujeo and takes 33 units daily. Last A1c noted to be 7.1 on December 27. Regarding his end-stage renal disease on hemodialysis, he did receive dialysis today prior to coming to the hospital. He follows a Sunday schedule. Otherwise no other concerns or complaints at this time. ED course: Patient was brought to the emergency department via EMS from home. While in the emergency room, he was evaluated by one of our providers. Lab work was significant for ESR elevated at 66, creatinine at 4.99, alk phos at 182, high- sensitivity troponin at 129, C-reactive protein at 5.17. A right foot x-ray consistent with cortical erosions of the third proximal phalanx as well as noted arterial calcifications. Patient was given a dose of daptomycin and Zosyn for concern of osteomyelitis and dry gangrene based off of physical exam and imaging. Our service was then consulted for admission to the hospital for f urther treatment. Admission Exam Per Admitting Provider Constitutional: WD/WN, vitals as above + obese, cooperative and comfortable; no acute distress Eyes: + anicteric sclerae Neck: trachea midline, no thyromegaly Respiratory: normal respiratory effort, lungs clear to auscultation Cardiovascular: Rate/Rhythm: regular rate and regular rhythm Vessels: radial pulses present; no JVD and + dorsalis pedis pulses abnormal Extremities: + edema (+1 pitting edema of the right lower extremity to the mid tran) Chest (Breasts): Chest: + pacemaker (R side with overlying healing incision w/ steri strips) Gastrointestinal (Abdomen): normal bowel sounds, soft, nontender, no hepatosplenomegaly Musculoskeletal: Head/Neck/Chest: normocephalic and head atraumatic Skin: There is a right foot ulceration on the plantar aspect spanning from the right fifth digit to the distal portion of the calcaneus on the lateral aspect. Eschar covering the entirety of the right fifth digit as well as scattered eschar throughout the ulcer itself. Neurologic: moves all extremities Psychiatric: A+Ox3, euthymic affect Lymphatic: no cervical or axillary lymphadenopathy Principal Diagnosis Infected ulcer requiring debridement, metatarsal resection Discharge Exam Constitutional WD/WN, vitals as above Eyes PERRL, conjunctivae normal, anicteric sclerae Neck trachea midline, no thyromegaly Respiratory normal respiratory effort, lungs clear to auscultation Cardiovascular RRR, no murmur, no edema Extremities: + AV fistula Gastrointestinal (Abdomen) normal bowel sounds, soft, nontender, no hepatosplenomegaly Musculoskeletal Left foot wrapped and bandaged, no drainage visible. Skin no rashes, warm and dry Psychiatric A+Ox3, euthymic affect Discharge Data Allergies Allergy/AdvReac Type Severity Reaction Status Date / Time codeine Allergy Mild DELIRIUM,ME Verified 01/13/22 13:08 AN tramadol Allergy Mild nausea and Verified 01/13/22 13:08 vomiting Consultations 01/25/22 19:07 ED Decision to Admit Stat 01/25/22 20:23 Consult Podiatry Routine 01/25/22 20:54 Consult Nephrology Routine 02/08/22 15:34 Consult Infectious Diseases Routine Procedures Performed Operation Date: 01/27/22 07:00 Actual Procedures p 2nd Metatarsal Resection(Right) - Edilson Rust DPM, MS Operation Date: 01/31/22 08:20 Actual Procedures p Right Foot Delayed Primary Closure(Right) - Edilson Rust DPM, MS Ordered Studies 01/26/22 13:10 US duplex leg [US arterial duplex LE BI] Routine Hospital Course (1) Acute osteomyelitis of right foot: Patient is a 51-year-old male with past medical history of ESRD on HD MWF, chronic hypoxemic respiratory failure secondary to restrictive lung disease and pulmonary hypertension on 4 L of oxygen at home, type 2 diabetes on 33 units daily of Toujeo, hypertension, atrial fibrillation, and pacemaker placement who presented to the hospital for evaluation of a right foot infection. MRI of right foot could not be completed due to recent pacemaker placement. His right foot was Xray- Possible additional cortical erosions of the third proximal phalanx and first DIP joint with third proximal phalangeal pathologic fracture. ESR and CRP suggestive of active osteomyelitis infection. He underwent 2nd metatarsal resection on right and subsequent wound closure, wound culture taken during procedure grew pseudomonas and cutibacterium acnes. He was placed on IV antibiot ics zosyn and daptomycin, later switched to cipro for concern of diarrhea. [facility] Infectious disease was consulted and given the culture results recommended a switch to Cefepime 2g MWF postdialysis for more appropriate coverage, for 6 weeks of total treatment from time of resection (01/27/22 to 03/10/22). Upon initial presentation, had slight elevation in troponin (129 to 120), more likely secondary to ESRD. For his ESRD, has continued MWF hemodialysis and Nephrology has followed. Patient given dose of Epogen, hemoglobin remained stable. Was started on phospate binder and renal vitamin. For his chronic diastolic heart failure, patient not currently on beta alesia. Given recent echo on 01/08/2022 at [facility] consistent of left ventricular size moderately dilated, left ventricular hypertrophy, diffuse hypokinesis, left ventricular function mild to moderately decreased, ejection fraction of 35 to 40%. Consider starting GDMT outpatient with beta-alesia, spironolactone, SGLT2 etc. His home midrodine was held during stay, did not have episodes of orthostatic hypotension- could consider restarting at follow up with PCP. No other changes to home medications. Patient was discharged to [facility] for rehabilitation with continued hemodialysis. Sent prescription for Cefepime which he will continue to receive MWF postdialysis until 03/10/21. Per ID consult, patient should have weekly CBC with diff, CMP, CRP, ESR. Upon discharge from rehab, patient is instructed to follow up with PCP within 1-2 weeks. (2) Ulcer of extremity due to chronic venous insufficiency: (3) Elevated troponin: (4) End-stage renal disease on hemodialysis: (5) PAF (paroxysmal atrial fibrillation): (6) Moderate pulmonary hypertension: (7) GERD (gastroesophageal reflux disease): (8) Restrictive lung disease secondary to obesity: (9) Chronic diastolic heart failure: (10) Obstructive sleep apnea: (11) Hyperlipidemia: (12) CAD (coronary artery disease): (13) Diabetes mellitus type 2, uncontrolled: (14) Hypertension: (15) Orthostatic hypotension: Total Time Total Time Spent Total Time Spent (In Minutes): . Discharge Plan Discharge Items Patient Disposition: Transfer [facility] Reason For Visit: FOOT ULCER, GANGRENE Discharge Diagnosis: infected wound requiring debridement Activity: Per Instructions section Non-emergency contact: Primary Care Provider and Surgeon Call non-emergency contact if: your symptoms worsen and your temperature is above 101.5 Follow-up/Referrals: KishaRadha mendez CRNP, CORNELIO [Nurse Practitioner] - 03/16/22 8:30 am Kay Veras DO [Primary Care Provider] - Diet: Carb Consistent or DM2 and Dialysis Renal Addtl Attending Provider Instructions: You were admitted to the hospital for evaluation of right foot infection. While admitted, your wound was cultured and imaging showed signs of osteomyelitis. Your wound was treated with surgery (resection of the metatarsal) on 01/27 and subsequent closure of the wound on 01/31. You were also given IV antibiotics which were modified from zosyn and daptomycin to cipro and now cefepime. These antibiotics were selected based on the evaluation by the infectious disease doctor, you will be sent to rehab on the antibiotic cefepime which you will continue to receive until 03/10/22. Given your end stage renal disease and need to receive dialysis, nephrology doctors followed you during your stay. You were maintained on your MWF dialysis schedule. Earlier during the stay, you were given a medication (Epogen) to address a decrease in your blood count, however it has remained stable. We monitored your electrolytes and blood pressure which also remained stable, you were maintained on your home oxygen requirement of 4L for your restrictive lung disease. * You will be discharged to [place] for rehab today where you will continue to receive dialysis and IV antibiotics post-dialysis on MWF (Cefepime 2g) * After discharge from rehab, it will be important to follow up with your primary care doctor within the next 1-2 weeks * Per the infectious disease doctor, you will need to be follow with weekly blood tests (CBCD, CMP, ESR, CRP), we will inform the rehab facility of this * Changes to your home medications include: discontinued midodrine (for orthostatic hypotension), can discuss need for restarting med with PCP +Added phosphate binder and renal vitamin. All other medications will be continued as normal Pending Studies at Discharge: No Stand-Alone Forms: My [facility] Skilled Items Patient informed of condition?: Yes DNR: No Discharge Level of Care: Skilled Communicable Disease: No Discharge Prognosis: Stable Lines: None Urinary Catheter: No Medications and DC Order Prescriptions: New Renal Caps 1 mg Capsule 1 cap PO QAM 30 Days Qty: 30 0RF sevelamer HCl 800 mg Tablet 800 mg PO TIDM Qty: 90 0RF Rx Instructions: Take 1 tablet with each meal. cefepime 2 gram recon soln 2,000 mg IV MOWEFR Qty: 12 0RF Rx Instructions: To be given Sunday and Sunday AFTER DIALYSIS until 03/10/22 Continued albuterol sulfate [Ventolin HFA] 90 mcg/actuation HFA aerosol inhaler 2 puffs INH Q6H PRN (Reason: Shortness Of Breath Or Wheezing) Qty: 18 0RF Breo Ellipta 100-25 mcg/dose blister with device 1 ea inhalation DAILY Qty: 1 3RF Label Comments: uses in the am (DME) blood sugar diagnostic Strip See Rx Instructions .ROUTE .MEDSUPPLY Qty: 50 3RF Rx Instructions: testing blood sugar twice daily miscellaneous medical supply Misc 1 ea miscellaneous DAILY MDD 4 lpm Qty: 1 0RF Rx Instructions: OXYGEN CONSERVING DEVICE J96.11 AND Z99.81 Home fill compatible unit and canisters so he can fill canisters at home. (DME) pen needle, diabetic [Easy Comfort Pen [place]] 31 gauge x 3/16" needle See Rx Instructions .ROUTE .MEDSUPPLY Qty: 100 3RF Rx Instructions: Using with insulin TID Toujeo SoloStar U-300 Insulin 300 unit/mL (1.5 mL) insulin pen 33 unit subcut QAM Qty: 4.5 1RF acetaminophen 500 mg capsule 1,000 mg PO TID PRN (Reason: Pain) Qty: 180 1RF cholecalciferol (vitamin D3) 25 mcg (1,000 unit) capsule 25 mcg PO DAILY Qty: 90 1RF (DME) OneTouch Ultra Test Strip See Rx Instructions .Route Qty: 50 3RF Rx Instructions: testing once daily DX: E11.65 hydralazine 25 mg tablet 25 mg PO BID Qty: 60 1RF Rx Instructions: hold if BP is under 100/60 omeprazole 40 mg capsule,delayed release(DR/EC) 40 mg PO DAILY Qty: 30 5RF Eliquis 5 mg tablet 5 mg PO BID Qty: 60 2RF atorvastatin 40 mg tablet 40 mg PO HS ranolazine 500 mg tablet extended release 12 hr 500 mg PO QAM clopidogrel [Plavix] 75 mg tablet 75 mg PO QAM aspirin 81 mg Tablet,Chewable 81 mg PO QAM montelukast 10 mg tablet 10 mg PO HS amiodarone 200 mg tablet PO QAM Discontinued midodrine 5 mg tablet 5 mg PO TID Rx Instructions: only if BP is below 90/60 do not give last dose of day after 6PM or within 4 hrs of bedtime Discharge Orders: Discharge Order (Routine); Ordered 02/12/22 Ordered By: Ирина Osman Admission Data Admit Date/Time: 01/25/22 19:47 Attending Provider: Arlyn Arriola Admit Provider: Angel Ngo Primary Care Provider: Kay Veras Other Providers: Tank Roa ; [facility] ; Jared Rangel ; Edilson Rust ; Julian Hilario ; Melvin Estrella ; Holly Hernandez ; Chris Mohan ; Patt Heller ; Anderson Dolan ; Gudelia Gordon ; Cathy Gutierrez ; Mar Lopez ; Harvey Ruiz ; Joanne Cuadra Other Interventions: Discharge Summary Assessment (RN) Last Done: 02/12/22 11:19 Supervising Physician Co-Signing Physician Notes Resident Physician Supervision Note: I independently interviewed and examined the patient and verified the mata history and physical, reviewed labs and image studies and agree with resident findings and care plan.
[2022-02-13] MEDS ORDERED: CEFEPIME 2,000 MG in SYRINGE 0 ML IV SCH (14:00)
== END 2022-02-12 12:33 | DRG 239 ==
LOC: ED 16:00 → SUATTDRO 19:47 → EDINP 19:47 → 4W 20:52 → 3N 02-04 15:56

== ENCOUNTER 2022-05-09 07:09 | Inpatient (IN) ==
[2022-05-09] MEDS ORDERED: PHARMACY GLYCEMIC MGMT CONSULT PRN (09:05)
[2022-05-09] MEDS ORDERED: CARBOHYDRATES FOR HYPOGLYCEMIA PO PRN (09:05)
[2022-05-09] MEDS ORDERED: GLUCAGON FOR INJ 1 MG VIAL SQ PRN (09:05)
[2022-05-09] MEDS ORDERED: ONDANSETRON INJ 2 MG/ML 2 ML VIAL IV PRN (09:05)
[2022-05-09] MEDS ORDERED: DEXTROSE 50% 50 ML SYRINGE IV PRN (09:05)
[2022-05-09] MEDS ORDERED: GLUCOSE 10 TAB/TUBE PO PRN (09:05)
[2022-05-09] MEDS ORDERED: GLUCOSE 40% GEL 15 GM TUBE PO PRN (09:05)
--- NOTE | 2022-05-09 09:05 | History & Physical Report ---
Date of Service May 09, 2022 Assessment & Plan (1) Sepsis: Plan: Assessment and Plan Sepsis On admission to [facility], Lactic 2.9--> 2.8. Bcx 4/4 gram positive cocci in chains. Temp 38.9C. Given Zosyn/Vanco at OSH and transfer arranged to [facility] (refused abx this morning) Unknown source (I SUSPECT d/t RIGHT FOOT infection in pt w/ hx osteo). Admit PCU Continue Zosyn/Vanco,pharmacy to assist dosing Checking baseline labs on admit CBC w/ Diff, CMP, Mag but will also check procal, CRP, ESR, lactic Obtain CT R foot for eval given prior osteomyelitis for eval of source and appearance on exam Repeat blood cultures now Obtain ECHO given positive blood cultures Likely need ID consultation but will await finalized cultures will need to reach back to [place] tomorrow to see if speciation to guide therapy (CM navigator alerted to call tomorrow to see if speciation, then can consult ID) Likely will need ortho/podiatry consult for suspected ostro Monitor on repeat evals Osteomyelitis Hx of such, followed by Dr Rust as outlined in HPI CT R foot for eval infection Wound Rn consulted Consult podiatry vs ortho as needed based on imaging ESRD Baseline Cr 4-5s appears since prior infection treated, gets HD in [place] Attempted HD but didnt finish treatment yesterday and was sent home 2nd to SOB/fever and HH sent to [facility] for Sepsis as above Nephrology consulted Dr Hilario notified for possible need for HD BMP ordered for eval, Cr was 4.26 at [place] CAD s/p PCI to RCA in 2017. Cath July 2019 w/ patent stent. Follows with Dr Calvillo at [facility] Repeat cardiac cath Mar 2021 for eval showed RCA in-stent restenosis and severe disease involving small, chronically occluded OM3. No intervention performed and medical therapy recommended. 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 Could consider repeating but given setting of infection likely to be elevated due to reactive nature. No on thyroid supplementation at baseline HFpEF Hx grade 3 diastolic HF. On baseline 4L recently, did have COVID last month. Check BNP, also ECHO given positive blood cultures Holding diuretics in setting of sepsis/ESRD/hypotension Nephrology consulted to assist w/ HD as above Monitor on exam COVID-19 Reported recent admit to [facility] and discharged on Dexamethasone x 5 days. 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 Is chronically anemic though of note. 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, check stool PCR/cdiff given abx for completeness as additional source Carotid Stenosis - Known, <50% bilaterally - Continue ASA DVT prophylaxis: Continue eliquis 5mg BID PT/OT evals once eval CT for osteo -- will need to continue NWB to RLE for now (2) CAD (coronary artery disease): (3) Carotid artery stenosis: (4) Chronic diastolic heart failure: (5) Chronic respiratory failure with hypoxia, on home O2 therapy: (6) Diabetes mellitus type 2, uncontrolled: (7) Diabetic infection of right foot: (8) End-stage renal disease on hemodialysis: (9) GERD (gastroesophageal reflux disease): (10) Hyperlipidemia: (11) Hypertension: (12) Obstructive sleep apnea: (13) PAF (paroxysmal atrial fibrillation): (14) Presence of arteriovenous fistula for hemodialysis: (15) S/P cardiac pacemaker procedure: Plan: secondary to symptomatic bradycardia Admission and Anticipated Discharge Date Admission Date: May 09, 2022 History of Present Illness Chief Complaint: Sepsis Primary Care Provider: Kay Veras DO Ryan Walker is a 51 yo male with PMHx significant for ESRD on HD (no HD yesterday due to low BP), HFpEF, CAD, HTN, HLD, paroxysmal afib, carotid artery stenosis (<50% bilateral ICA), DM II (last A1c 7.6), anemia, KISHAN, osteomyelitis right foot, AV fistula malfunction in the past, restrictive lung disease, GERD presenting from [place] with Sepsis. Was admitted 04/12/22-04/13/22 at due to SOB secondary to COVID and discharged to home with 5 days Dexamethasone and has been struggling with shortness of breath since per most recent PCP notes. Had been wheezing and using 5L O2 HS with O2 at dialysis in 84-86%. By report, patient couldnt complete dialysis yesterday due to low BP and was sent home w/ low grade fevers but sent back by Home Health to [place] ER for evaluation and found to have Sepsis. He states he completed 4 hours of the 4hr 15 minute treatment but doesn't remember much of yesterday. Declined abx prior to transfer as reporting diarrhea and no bathroom on ambulance. Reported bowel movements 4-5x prior to transfer. He had foot infection, right osteo 12-13wk s/p right 2nd metatarsal resection with Dr Rust 01/31/22, completed course IV abx in February 2022. States dressing removed prior to transfer but he told doc to put one back on but he didn't. He does have a boot and has been NWB by his report. He states he currently feels alright. No significant pain, no present fever/chills, no chest pain. Baseline SOB but not worse than baseline on his chronic oxygen. Discussed with patient holding BP meds for now given hypotension. Denies lightheadedness/dizziness. He does note that his oxygen was only on 2L at but he wears 4L and w/ CPAP and it (BP) improved when they turned it back to 4L. Reporting good appetite at home over past week. At [place], blood cultures gram positive cocci in chains 4/4 bottles. 91% on 4L. BNP 77829 Patient given Zosyn/Vancomycin. Trop 141--> 106. Lactic 2.9--> 2.8. INR 2.1. WBC 10k. ABG w/ pH 7.58, CO2 39, O2 33.9, HCO3 29.5 BP 92/68 --> 106/60 with 250cc IVF and arrangements made to transfer to [facility] for further eval. Imaging being uploaded -- CT thoracic/CXR. Appears ordered xray of foot but had not been completed. Medications: Tylenol 1g TID, albuterol HFA, Amiodarone 200mg, amlodipine 10mg, eliquis 5mg BID, ASA 81mg, Lipitor 40mg, betamethasone, fluticasone, Vit D 125mcg, HCTZ 25mg BID, omeprazole 20mg, Zofran, montelukast. Insulin He states he would like call to friend Kaycee to verify medications and she has appointment this morning -- call attempted but no answer. Discussed obtaining imaging for eval of his right foot as source of infection/consultation w/ ortho/podiatry pending results. Currently having labs drawn, ear mold laboratory technician at bedside for US to eval for any vegetations given + blood cultures. Allergies Allergy/AdvReac Type Severity Reaction Status Date / Time codeine Allergy Mild DELIRIUM,ME Verified 05/01/22 16:02 AN tramadol Allergy Mild nausea and Verified 05/01/22 16:02 vomiting Home Medications Medication Instructions Recorded Confirmed Type aspirin 81 mg chewable tablet 81 mg PO QAM 05/06/18 05/01/22 History blood sugar diagnostic #50 ea 12/07/20 05/01/22 Rx miscellaneous medical supply 1 ea miscellaneous DAILY #1 ea 03/08/21 05/01/22 Rx pen needle, diabetic 31 gauge x #100 ea 03/11/21 05/01/22 Rx 3/16" (Easy Comfort Pen Nichols) acetaminophen 500 mg capsule 1,000 mg PO TID PRN Pain #180 caps 11/21/21 05/01/22 Rx montelukast 10 mg tablet 10 mg PO HS 01/25/22 05/01/22 History amlodipine 10 mg tablet 10 mg PO DAILY #90 tabs 02/22/22 05/01/22 Rx insulin glargine U-300 conc 300 33 unit (0.11 mL) subcut QAM #4.5 02/22/22 05/01/22 Rx unit/mL (1.5 mL) subcutaneous pen mL (Toujeo SoloStar U-300 Insulin) povidone-iodine 5 % topical spray 1 spray topical .COMPLEX #88.7 mL 02/22/22 05/01/22 Rx (Betadine) ondansetron HCl 4 mg tablet 4 mg PO Q8H PRN nausea and 03/08/22 05/01/22 Rx vomiting #30 tabs cholecalciferol (vitamin D3) 125 125 mcg PO DAILY 03/16/22 05/01/22 History mcg (5,000 unit) capsule amiodarone 200 mg tablet 200 mg PO QAM #90 tabs 03/21/22 05/01/22 Rx apixaban 5 mg tablet (Eliquis) 5 mg PO BID #180 tabs 03/21/22 05/01/22 Rx atorvastatin 40 mg tablet 40 mg PO HS #90 tabs 03/21/22 05/01/22 Rx Hospital Bed Homecare #1 ea 03/24/22 05/01/22 Rx fluticasone furoate 100 1 inh inhalation DAILY 04/04/22 05/01/22 History mcg-vilanterol 25 mcg/dose inhalation powder (Breo Ellipta) hydrochlorothiazide 25 mg tablet 25 mg PO BID 04/04/22 05/01/22 History omeprazole 20 mg tablet,delayed 20 mg PO DAILY 04/04/22 05/01/22 History release betamethasone valerate 0.1 % 1 applic topical BID PRN skin 05/01/22 05/01/22 Rx topical cream irritation #15 grams flash glucose sensor (FreeStyle 05/01/22 05/01/22 History Eric 14 Day Sensor kit) albuterol sulfate 90 mcg/actuation 2 puff inhalation Q6H PRN 05/02/22 05/02/22 Rx aerosol inhaler shortness of breath or wheezing #18 grams Past Med/Surg History Medical History Acute on chronic diastolic CHF (congestive heart failure) Anemia of chronic disease Arthritis CAD (coronary artery disease) 08/2015- L Cx stent; 11/2017- RCA stent, L Cx stent patent; 07/2019- LM wnl, prox-mid LAD 30%, mid-L Cx stent patent, RCA stent stent with area between stents 30-40%. Sees [facility], Dr Sharad Norton. Calcification of tendon L elbow- seen on XR 12.. 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) Repaired s/p PPV, MP, EL (SNT) Dialysis AV fistula malfunction Diverticular disease Elevated troponin End-stage renal disease on hemodialysis ESRD (end stage renal disease) on dialysis dialysis sun-sun-sun is getting dialysis sat prior to colonoscopy 09/29/2019 and will have it again after on sunday09/30/2019 History of COVID-19 (12/2020) Hyperkalemia Hyperlipidemia Hypertension Moderate pulmonary hypertension Nuclear sclerosis of both eyes Obstructive sleep apnea cpap on 4L N/C On home oxygen therapy 4L N/C at all times Osteoarthritis, hip, bilateral Pleural effusion, bilateral 11/2018 Pneumonia Presence of arteriovenous fistula for hemodialysis left forearm Secondary pulmonary hypertension Status post placement of implantable loop recorder (07/07/21) Vitreous hemorrhage of right eye due to diabetes mellitus (12/04/18) Surgical History History of cardiac cath X 2 - 11/2017 - [facility] - SOB - 1 stent placed - follows w/ Dr. Zuniga - 2015 - [facility] - SOB - 1 stent placed History of colonoscopy History of foot surgery left x 4 History of heart artery stent X2 History of placement of chest tube left lung for pleural effusion 11/2018 History of tooth extraction all teeth S/P arteriovenous (AV) fistula creation 04/2016 Dr. Mena placed S/P AV sera ablation (01/18/22) S/P bilateral cataract extraction (05/2021) S/P cardiac catheterization Dr. Sharad Calvillo at [facility]- 01/09/22 Status post amputation of toe (12/29/21) R 2nd toe d/t infection Status post amputation of toe of right foot (01/27/22) metatarsal resection R toe 2-5 d/t osteomyelitis/gangrene Family History Mother Diabetes Coronary heart disease Heart disease Hypertension Stroke Father Diabetes Coronary heart disease Heart disease Myocardial infarction Hypertension Stroke Other Kidney disease No family history of adverse response to anesthesia Denies family history of Ovarian cancer Prostate cancer Breast cancer Lung cancer Colorectal cancer Social History Smoking Status: Never smoker Second Hand Exposure: No; Do You Dip or Chew Tobacco: No; Tobacco Cessation Education Requested by Patient: No Hx Alcohol Use: No Hx Substance Use: No Preferred Language: Lao Communication Ability: Effective Visual Impairment: No Limitations Hearing Ability: Normal Sales Administration Specialist Required: No Beliefs That Will Affect Care: None marital status: Single Current Living Situation: Significant Other Current Living Situation Comment: lives with significant other near [place] current occupational status: disabled How many Children do You have: 0 Other Information That Helps 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 Safe at Home: Yes Safety Concerns: Feels Safe At This Time Childhood Exposure to Second-Hand Smoke: Yes Diet Comment: regular caffeine: No during the past year weight has: remained stable Dental Care, Regularly: No Physical Activity Frequency: 1-2 Times per Week Physical Activity Frequency Comment: walk Seatbelt Use: always Sunscreen Use: No Assistive Devices: CPAP, Denture - Upper, Denture - Lower, Glasses, Oxygen - Continuous, Scooter/Electric Scooter, Walker and Wheelchair Assistive Devices Comment: Dentures at home Physical Exam Physical Exam: General: chronically ill appearing male sitting up in bed, getting labs drawn, NAD at present HEENT: head normocephalic, atraumatic, dry mm, trachea midline Chest: pacemaker present, no signs of infection RESP: no distress/tachypnea, diminished in the bases, good effort, on baseline 4L via NC CV: regular rate/rhythm, S1/S2, +S4, no pitting edema LE GI: +BS, distended, NONTENDER, no rebound/guarding : no friedman MSK/Neuro/Skin: RIGHT FOOT with ulceration along lateral aspect, necrotic/eschar present, mild edema, pulses diminished but sensation to pressure intact no focal deficit/slurred speech/facial droop Psych: Alert/oriented to person/place but does not remember some of yesterdays events after coming home from [place] [facility] Supervising Physician Co-Signing Physician Notes I personally examined the patient and verified all mata points of history and exam, discussed case, and agree with decision making with Nikolas PHAM no pain. sent over from [place]. reportedly blood culture (+) for gram posi tive cocci vitals noted [place] [facility] cardio reg no r/m/g lungs cta b/l no r/r/w foot dressed - given eval by PAC, wound RN, pending eval by DPM - examined around dressing - no erythema/crepits - distally no cyanosis - but did not take down dressing at time of my eval vascular insufficiency related foot infection/osteomyelitis and apparently subsequent bacteremia - broad coverage for now - can likely streamline based on blood cultures but also will be mindful that foot itself could still be polymicrobial. podiatry eval. with bacteremia - w/u for endocarditis otherwise as above, anticoagulated on eliquis PG Care Time/CCT Total # of Minutes Spent Total Time Spent with Patient: Total time spent is greater than 50% in coordination of care (as documented) at patient's floor/unit and/or counseling patient: Coding Level of Care Code 11578 INT INP/OBS CARE 375MIN Diagnoses Sepsis A41.9 CAD (coronary artery disease) I25.10 Associated angina: without angina Coronary Disease-Associated Artery/Lesion type: [place] artery [place] vs. transplanted heart: [place] heart Carotid artery stenosis I65.29 Chronic diastolic heart failure I50.32 Chronic respiratory failure with hypoxia, on home O2 therapy J96.11; Z99.81 Diabetes mellitus type 2, uncontrolled E11.65 Glycemic state: with hyperglycemia Diabetic infection of right foot E11.628; L08.9 End-stage renal disease on hemodialysis N18.6; Z99.2 GERD (gastroesophageal reflux disease) K21.9 Hyperlipidemia E78.5 Hypertension I10 Obstructive sleep apnea G47.33 PAF (paroxysmal atrial fibrillation) I48.0 Presence of arteriovenous fistula for hemodialysis Z99.2 S/P cardiac pacemaker procedure Z95.0 (2) CAD (coronary artery disease) Associated angina: without angina Coronary Disease-Associated Artery/Lesion type: [place] artery [place] vs. transplanted heart: [place] heart Qualified Code(s): I25.10 - Atherosclerotic heart disease of [place] coronary artery without angina pectoris (6) Diabetes mellitus type 2, uncontrolled Glycemic state: with hyperglycemia Qualified Code(s): E11.65 - Type 2 diabetes mellitus with hyperglycemia
[2022-05-09] MEDS ORDERED: ALBUTEROL HFA 8 GM INHALER INH PRN (09:10)
[2022-05-09] MEDS ORDERED: BETAMETHASONE VAL 0.1% CR 15 GM TOP PRN (09:10)
[2022-05-09] MEDS ORDERED: VANCOMYCIN CONSULT ACTIVE PRN ×2 (09:27→11:34)
[2022-05-09] MEDS ORDERED: ACETAMINOPHEN 500 MG TAB PO PRN (09:30)
[2022-05-09] MEDS ORDERED: VANCOMYCIN HCL 1,000 MG in SODIUM CHLORIDE 0.9% 250 ML IV SCH ×2 (09:30→11:45)
[2022-05-09] MEDS ORDERED: PIPERACILLIN/TAZOBACTAM 3.375 GM in DEXTROSE 5% 100 ML IV SCH (09:30)
[2022-05-09 09:48] LABS: Basophils # (auto) 0.03 K/uL (0-0.2); Basophils % (auto) 0.4 %; Hemoglobin 9.1 g/dl (14.0-18.0); Immature Granulocytes # (auto) 0.02 K/uL (0.01-0.20); Immature Granulocytes % (auto) 0.3 %; Lymphocytes # (auto) 0.78 K/uL (1.2-3.4); Lymphocytes % (auto) 10.2 %; Mean Corpuscular Hemoglobin 29.2 pg (25.0-34.0); Mean Corpuscular Hgb Conc 31.4 g/dL (32.0-36.0); Mean Corpuscular Volume 92.9 fL (80.0-100.0); Mean Platelet Volume 10.5 fL (9.4-12.4); Monocytes # (auto) 0.94 K/uL (0.11-0.59); Monocytes % (auto) 12.3 %; Neutrophils # (auto) 5.87 K/uL (1.40-6.50); Neutrophils % (auto) 76.8 %; Platelet Count 189 K/uL (130-400); RDW Coefficient of Variation 18.7 % (11.5-14.5); RDW Standard Deviation 63.4 fL (36.4-46.3); Red Blood Count 3.12 M/uL (4.70-6.10); White Blood Count 7.64 K/ul (4.8-10.8)
[2022-05-09] MEDS ORDERED: PIPERACILLIN/TAZOBACTAM 3.375 GM (over 30 mins) IV ONE (10:15)
[2022-05-09] MEDS ORDERED: Patient's HEIGHT &/or WEIGHT Needed SCH (10:30)
[2022-05-09 10:40] LABS: Alanine Aminotransferase 7 U/L (7-52); Albumin Level 3.5 gm/dl (3.4-5.0); Alkaline Phosphatase 110 U/L (34-104); Anion Gap 13 (3-11); Aspartate Aminotransferase 23 U/L (13-39); Blood Urea Nitrogen 39 mg/dl (6-23); C Reactive Protein 21.42 mg/dl (0-0.5); Calcium 8.8 mg/dl (8.5-10.1); Carbon Dioxide 30 mmol/L (21-32); Chloride 90 mmol/L (98-107); Est GFR (African American) 12.4 ml/min; Est GFR (Non-African American) 10.7 ml/min; Globulin 3.4 gm/dl (2.5-4.0); Glucose 136 mg/dl (70-99(Fasting)); Magnesium 1.9 mg/dl (1.7-2.4); Potassium 5.7 mmol/L (3.5-5.1); Sodium 133 mmol/L (136-145); Total Protein 6.9 gm/dl (6.0-8.3); Troponin I High Sensitivity 86.9 pg/ml (0-20)
--- NOTE | 2022-05-09 11:11 | XRay Report ---
XR chest 1V portable CLINICAL HISTORY: sepsis TECHNIQUE: Single frontal radiograph of the chest was obtained. Comparison: Comparison is made to chest radiograph of 01/25/2022 FINDINGS: Exam is limited by underpenetration. Cardiomegaly is noted. Pacemaker is unchanged. Lungs are underin flated but clear. No evidence of pleural effusion or pneumothorax. IMPRESSION: No acute abnormalities and in particular no radiographic evidence of pneumonia. ACT 112: Negative or not required by law. Electronically signed by: Ba Lorenz M.D. 05/09/2022 11:10 AM
[2022-05-09] MEDS: AMIODARONE 200 MG TAB PO SCH (11:28)
[2022-05-09] MEDS: FLUTICASONE/VILANTEROL 100/25MCG 14 PUFFS/INHALER INH SCH (11:28)
[2022-05-09] MEDS: APIXABAN 5 MG TABLET PO SCH ×2 (11:28→20:07)
[2022-05-09] MEDS: PANTOprazole 40 MG TAB PO SCH (11:28)
[2022-05-09] MEDS: ASPIRIN 81 MG CHEW PO SCH (11:28)
[2022-05-09] MEDS: INSULIN ASPART PER UNIT CHARGE SC SCH ×3 (11:34→20:52)
--- NOTE | 2022-05-09 11:39 | CT Scan Report ---
CT foot RT wo con CLINICAL HISTORY: sepsis, eval osteo TECHNIQUE: Multidetector row helical CT of the right foot was performed without intravenous contrast. Coronal and sagittal reformations were obtained. Automated dose lowering techniques and/or adjustmen t according to patient size were utilized for this examination. CT DOSE: 186.55 mGy.cm Comparison: Comparison is made to right foot radiograph 01/25/2022 FINDINGS: Patient is status post right second and fifth metatarsals. A bony fragment is in the second digit res ection site and there is permeative appearance and irregularity of the fifth digit resection site. [place] fragmentation is noted at the base of the third digit proximal phalanx. These appear unchanged fro m prior exam. Multilevel degenerative changes are seen. Soft tissue swelling is seen about the foot w ith the most prominent focus in the second metatarsal resection site. An ulcer is noted at the fifth digit resection site. Vascular calcifications are seen. IMPRESSION: Patient is status post second and fifth metatarsal resection. There is permeative appearance and irre gularity at the fifth metatarsal resection site which may represent osteomyelitis. Soft tissue swelli ng is seen about the foot. ACT 112: Negative or not required by law. Electronically signed by: Ba Lorenz M.D. 05/09/2022 11:36 AM
--- NOTE | 2022-05-09 11:50 | Communication Note ---
Date of Service: May 09, 2022 Labs returned -- trop trending down. WBC wnl at 7.6k. Hgb around baseline. Plt 189. Lactic normalized. ALP 110. Mag 1.9. ESR elevated to 55, CRP 21.42, procal 13.7 Na 133 (chronic lows, likely from volume overload), K elevated to 5.7. Blood cultures pending. Vanco trough therapeutic. Discussed w/ Dr Hilario and ordered dose of patiromer for hyperkalemia, planning on HD for tomorrow. Monitor BMP on repeat labs this evening. Will also give 1gm mag given hx afib to keep closer to [address] not yet done. CT foot w/ concerns for osteomyelitis consult placed for podiatry. Continue Vanco/Zosyn for now, monitor cultures. Also discussed w/ wound RN who will see patient later today
[2022-05-09] MEDS ORDERED: LANTUS PER UNIT CHARGE SQ ONE ×2 (12:00→21:00)
--- NOTE | 2022-05-09 12:14 | Nephrology Consultation ---
Date of Consultation May 09, 2022 Assessment & Plan (1) End-stage renal disease on hemodialysis: MWF. BP and volume status acceptable. PO patiromer for persistent hyperkalemia now. Next planned HD will be tomorrow. HD RN made aware. Outpatient Rx: 4.25 hours Qb 500 Qd 600, 2K 2.5Ca, 139Na, 40HCO3. EDW 103 kg. Medications appropriately dosed for kidney function. Renal diet. Document I/O's. Repeat metabolic profile tomorrow AM. (2) Anemia of chronic disease: Chronic, stable. Maintained on Micera as outpatient. Repeat H/H prior to HD tomorrow AM. (3) Presence of arteriovenous fistula for hemodialysis: s/p angioplasty with CLINICAL OPERATIONS CONSULTANT by Dr. Mena last month. Good thrill and bruit. AVF has been functioning well since. (4) Hypertension: Amlodipine per home Rx. Med rec to be updated. Unclear benefit to HCTZ with given kidney function. (5) Sepsis: Check vanco level prior to HD tomorrow, if continuing therapy. Concern for possible recurrent osteo involving the right foot. Plan of care reviewed with hospitalist. History of Present Illness Reason for Consultation: ESRD on HD Attending Physician: Johny Castorena MD History of Present Illness Mr. Ryan Walker is a 51 year-old male with DM, hypertension, CAD, restrictive lung disease with pulmonary hypertension, atrial fibrillation s/sp pacemaker placement, and ESRD. He was transferred to [facility] from [facility] today for management of sepsis with presumed infection/osteomyelitis of the right foot. The patient was seen and evaluated in his hospital room this morning with Diana Hodges PA-C. I discussed the plan of care with Dr. Castorena. Blood cultures from [facility] are positive for gram positive cocci in chains 4/4 bottles. He was started on Vancomycin and Zosyn. Ryan was admitted to the hospital last month with COVID infection. He has strug gle with dyspnea since. Ryan receives HD at [facility] on a MWF schedule. He completed treatment on yesterday without complications. He has a well functioning AVF. I spoke to the RN at [facility] today and reviewed recent history. Outpatient Rx is MWF x 4.25 hours at Qb 500 and Qd 600 2K 2.5Ca 139Na 40HCO3, heparin 2000 unit bolus and 1000 per hour. EDW 103 kg. Left HD at 103.4 kg yesterday. BP was 96/58- 132/62 mmHg. Micera 75 Q 2 weeks for anemia. Sensipar 150 mg MWF with HD. Nephrology consultation requested to assist with inpatient HD. Dr. Mena performed a fistulogram with CLINICAL OPERATIONS CONSULTANT of the venous anastomosis on March 30. AVF has been functioning well since. Allergies Allergy/AdvReac Type Severity Reaction Status Date / Time codeine Allergy Mild DELIRIUM,ME Verified 05/01/22 16:02 AN tramadol Allergy Mild nausea and Verified 05/01/22 16:02 vomiting Home Medications Medication Instructions Recorded Confirmed Type aspirin 81 mg chewable tablet 81 mg PO QAM 05/06/18 05/01/22 History blood sugar diagnostic #50 ea 12/07/20 05/01/22 Rx miscellaneous medical supply 1 ea miscellaneous DAILY #1 ea 03/08/21 05/01/22 Rx pen needle, diabetic 31 gauge x #100 ea 03/11/21 05/01/22 Rx 3/16" (Easy Comfort Pen [place]) acetaminophen 500 mg capsule 1,000 mg PO TID PRN Pain #180 caps 11/21/21 05/01/22 Rx montelukast 10 mg tablet 10 mg PO HS 01/25/22 05/01/22 History amlodipine 10 mg tablet 10 mg PO DAILY #90 tabs 02/22/22 05/01/22 Rx insulin glargine U-300 conc 300 33 unit (0.11 mL) subcut QAM #4.5 02/22/22 05/01/22 Rx unit/mL (1.5 mL) subcutaneous pen mL (Toujeo SoloStar U-300 Insulin) povidone-iodine 5 % topical spray 1 spray topical .COMPLEX #88.7 mL 02/22/22 05/01/22 Rx (Betadine) ondansetron HCl 4 mg tablet 4 mg PO Q8H PRN nausea and 03/08/22 05/01/22 Rx vomiting #30 tabs cholecalciferol (vitamin D3) 125 125 mcg PO DAILY 03/16/22 05/01/22 History mcg (5,000 unit) capsule amiodarone 200 mg tablet 200 mg PO QAM #90 tabs 03/21/22 05/01/22 Rx apixaban 5 mg tablet (Eliquis) 5 mg PO BID #180 tabs 03/21/22 05/01/22 Rx atorvastatin 40 mg tablet 40 mg PO HS #90 tabs 03/21/22 05/01/22 Rx Hospital Bed Homecare #1 ea 03/24/22 05/01/22 Rx fluticasone furoate 100 1 inh inhalation DAILY 04/04/22 05/01/22 History mcg-vilanterol 25 mcg/dose inhalation powder (Breo Ellipta) hydrochlorothiazide 25 mg tablet 25 mg PO BID 04/04/22 05/01/22 History omeprazole 20 mg tablet,delayed 20 mg PO DAILY 04/04/22 05/01/22 History release betamethasone valerate 0.1 % 1 applic topical BID PRN skin 05/01/22 05/01/22 Rx topical cream irritation #15 grams flash glucose sensor (FreeStyle 05/01/22 05/01/22 History Eric 14 Day Sensor kit) albuterol sulfate 90 mcg/actuation 2 puff inhalation Q6H PRN 05/02/22 05/02/22 Rx aerosol inhaler shortness of breath or wheezing #18 grams Patient History Medical History Acute on chronic diastolic CHF (congestive heart failure) Anemia of chronic disease Arthritis CAD (coronary artery disease) 08/2015- L Cx stent; 11/2017- RCA stent, L Cx stent patent; 07/2019- LM wnl, prox-mid LAD 30%, mid-L Cx stent patent, RCA stent stent with area between stents 30-40%. Sees [facility], Dr Sharad Norton. 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) Repaired s/p PPV, MP, EL (SNT) Dialysis AV fistula malfunction Diverticular disease Elevated troponin End-stage renal disease on hemodialysis ESRD (end stage renal disease) on dialysis dialysis mon-wed-sun is getting dialysis sat prior to colonoscopy 09/29/2019 and will have it again after on sunday09/30/2019 History of COVID-19 (12/2020) Hyperkalemia Hyperlipidemia Hypertension Moderate pulmonary hypertension Nuclear sclerosis of both eyes Obstructive sleep apnea cpap on 4L N/C On home oxygen therapy 4L N/C at all times Osteoarthritis, hip, bilateral Pleural effusion, bilateral 11/2018 Pneumonia Presence of arteriovenous fistula for hemodialysis left forearm Secondary pulmonary hypertension Status post placement of implantable loop recorder (07/07/21) Vitreous hemorrhage of right eye due to diabetes mellitus (12/04/18) Surgical History History of cardiac cath X 2 - 11/2017 - [facility] - SOB - 1 stent placed - follows w/ Dr. Zuniga - 2016 - [facility] - SOB - 1 stent placed History of colonoscopy History of foot surgery left x 4 History of heart artery stent X2 History of placement of chest tube left lung for pleural effusion 11/2018 History of tooth extraction all teeth S/P arteriovenous (AV) fistula creation 04/2016 Dr. Mena placed S/P AV sera ablation (01/18/22) S/P bilateral cataract extraction (05/2021) S/P cardiac catheterization Dr. Sharad Calvillo at [facility]- 01/09/22 Status post amputation of toe (12/29/21) R 2nd toe d/t infection Status post amputation of toe of right foot (01/27/22) metatarsal resection R toe 2-5 d/t osteomyelitis/gangrene Family History Mother Diabetes Coronary heart disease Heart disease Hypertension Stroke Father Diabetes Coronary heart disease Heart disease Myocardial infarction Hypertension Stroke Other Kidney disease No family history of adverse response to anesthesia Denies family history of Ovarian cancer Prostate cancer Breast cancer Lung cancer Colorectal cancer Social History Smoking Status: Never smoker Second Hand Exposure: No; Do You Dip or Chew Tobacco: No; Tobacco Cessation Education Requested by Patient: No Hx Alcohol Use: No Hx Substance Use: No Preferred Language: Chinese Communication Ability: Effective Visual Impairment: No Limitations Hearing Ability: Normal Biometry Teacher Required: No Beliefs That Will Affect Care: None marital status: Single Current Living Situation: Significant Other Current Living Situation Comment: lives with significant other near [place] current occupational status: disabled How many Children do You have: 0 Other Information That Helps 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 Safe at Home: Yes Safety Concerns: Feels Safe At This Time Childhood Exposure to Second-Hand Smoke: Yes Diet Comment: regular caffeine: No during the past year weight has: remained stable Dental Care, Regularly: No Physical Activity Frequency: 1-2 Times per Week Physical Activity Frequency Comment: walk Seatbelt Use: always Sunscreen Use: No Assistive Devices: CPAP, Denture - Upper, Denture - Lower, Glasses, Oxygen - Continuous, Scooter/Electric Scooter, Walker and Wheelchair Assistive Devices Comment: Dentures at home Review of Systems Review of Systems: All systems reviewed & are unremarkable except as noted in HPI & below Physical Exam Constitutional: well developed; no acute distress Eyes: no scleral abnormality and no corneal abnormality ENMT: Mouth: no oral mucosal abnormality and oral mucous membranes not dry Neck: normal visual inspection and trachea midline Respiratory: normal respiratory effort Auscultation: lungs clear to auscultation bilaterally Cardiovascular: Rate/Rhythm: regular rate Heart Sounds: normal S1, normal S2 and + murmur Extremities: + AV fistula; no edema Musculoskeletal: Extremities: + foot abnormality; no cyanosis and no clubbing Skin: + turgor decreased, + dry skin and + excoriations; no jaundice Neurologic: Motor/Sensory: no tremor and no asterixis Psychiatric: Orientation: alert and oriented x 3 Results & Data ([facility]) Laboratory Results Laboratory Results - last 24 hr 05/09/22 05/09/22 05/09/22 09:29 09:29 09:29 WBC 7.64 RBC 3.12 L Hgb 9.1 L Hct 29.0 L MCV 92.9 MCH 29.2 MCHC 31.4 L RDW Std Deviation 63.4 H RDW Coeff of Octavio 18.7 H Plt Count 189 MPV 10.5 Immature Gran % (Auto) 0.3 Neut % (Auto) 76.8 Lymph % (Auto) 10.2 Cassia % (Auto) 12.3 Eos % (Auto) 0.0 Baso % (Auto) 0.4 Neut # (Auto) 5.87 Lymph # (Auto) 0.78 L Cassia # (Auto) 0.94 H Eos # (Auto) 0.00 Baso # (Auto) 0.03 Immature Gran # (Auto) 0.02 ESR 55 H Sodium 133 L Potassium 5.7 H Chloride 90 L Carbon Dioxide 30 Anion Gap 13 H BUN 39 H Creatinine 5.58 H* Est Cr Clr Drug Dosing Not Reportable Est GFR ( Amer) 12.4 Est GFR (Non-Af Amer) 10.7 BUN/Creatinine Ratio 7.0 L Glucose 136 H POC Glucose Lactate Calcium 8.8 Magnesium 1.9 Total Bilirubin 1.0 AST 23 ALT 7 Alkaline Phosphatase 110 H Troponin I High Sens 86.9 H* C-Reactive Protein 21.42 H Total Protein 6.9 Albumin 3.5 Globulin 3.4 Albumin/Globulin Ratio 1.0 Procalcitonin Random Vancomycin 05/09/22 05/09/22 05/09/22 09:29 09:29 10:59 WBC RBC Hgb Hct MCV MCH MCHC RDW Std Deviation RDW Coeff of Octavio Plt Count MPV Immature Gran % (Auto) Neut % (Auto) Lymph % (Auto) Cassia % (Auto) Eos % (Auto) Baso % (Auto) Neut # (Auto) Lymph # (Auto) Cassia # (Auto) Eos # (Auto) Baso # (Auto) Immature Gran # (Auto) ESR Sodium Potassium Chloride Carbon Dioxide Anion Gap BUN Creatinine Est Cr Clr Drug Dosing Est GFR ( Amer) Est GFR (Non-Af Amer) BUN/Creatinine Ratio Glucose POC Glucose Lactate 1.7 Calcium Magnesium Total Bilirubin AST ALT Alkaline Phosphatase Troponin I High Sens C-Reactive Protein Total Protein Albumin Globulin Albumin/Globulin Ratio Procalcitonin 13.70 H Random Vancomycin 17.5 05/09/22 11:25 WBC RBC Hgb Hct MCV MCH MCHC RDW Std Deviation RDW Coeff of Octavio Plt Count MPV Immature Gran % (Auto) Neut % (Auto) Lymph % (Auto) Cassia % (Auto) Eos % (Auto) Baso % (Auto) Neut # (Auto) Lymph # (Auto) Cassia # (Auto) Eos # (Auto) Baso # (Auto) Immature Gran # (Auto) ESR Sodium Potassium Chloride Carbon Dioxide Anion Gap BUN Creatinine Est Cr Clr Drug Dosing Est GFR ( Amer) Est GFR (Non-Af Amer) BUN/Creatinine Ratio Glucose POC Glucose 186 H Lactate Calcium Magnesium Total Bilirubin AST ALT Alkaline Phosphatase Troponin I High Sens C-Reactive Protein Total Protein Albumin Globulin Albumin/Globulin Ratio Procalcitonin Random Vancomycin PG Care Time/CCT Total # of Minutes Spent Total Time Spent with Patient: Total time spent is greater than 50% in coordination of care (as documented) at patient's floor/unit and/or counseling patient: Coding Level of Care Code 46261 IN/OBS CONSULT LVL 4,60M Diagnoses End-stage renal disease on hemodialysis N18.6; Z99.2 Anemia of chronic disease D63.8 Presence of arteriovenous fistula for hemodialysis Z99.2 Hypertension I10 Sepsis A41.9
[2022-05-09] MEDS ORDERED: MAGNESIUM SULFATE / D5W 1 GM/100 ML BAG IV ONE (12:15)
[2022-05-09] MEDS: PATIROMER CALCIUM SORBITEX 8.4 GM PACK PO SCH (12:40)
--- NOTE | 2022-05-09 13:00 | Pharmacy Report ---
Pharmacy PK ABX Note - Date of Service May 09, 2022 - Assessment and Plan Assessment 51 year old M receiving vancomycin/zosyn for treatment of R foot osteo/bacteremia transferred from outside facility. Pertinent microbiologic data includes: 05/30 BC reportedly growing GPC in chains at outside facility, will need further follow up. Patient on HD, received 2000mg dose of vancomycin at outside facility prior to transfer. Random level 17.5. Plan Vancomycin * Will give dose of 500 mg x 1 to ensure level remains therapeutic post-dialysis * Random level for tomorrow AM prior to planned HD for further dosing assistance Pharmacy will continue to follow and will adjust dose/frequency as necessary. Thank you. Pharmacy has transitioned to AUC monitoring for vancomycin. AUC/ANKIT is the preferred PK/PD target and is associated with decreased risk of nephrotoxicity compared to traditional trough targets.
--- NOTE | 2022-05-09 13:10 | Pharmacy Report ---
Pharmacy Glycemic Short Note 2 - Date of Service May 09, 2022 - Glycemic Short BSG Results (Last 24 hours): 05/09/22 05/09/22 09:29 11:25 Glucose 136 H POC Glucose 186 H OUTPATIENT ANTIDIABETIC REGIMEN: * Per most recent Endo note: 50 units of Toujeo QAM * A1c unreliable in the setting of HD ASSESSMENT: * Patient currently on basal insulin outpatient, will split basal/bolus * Weight based stress of 2 is similar to stressing outpatient total daily insulin. Will start with these parameters * Adjust as needed with overnight checks, plan for dialysis tomorrow PLAN FOR INPATIENT GLYCEMIC CONTROL: * Hold outpatient oral diabetes medications * Basal insulin * Lantus 15 units x 1 now, scale for PM * Bolus insulin * NovoLog per scale ACHS or Q6hrs while NPO * Goal Range: Low 120 mg/dL - High 160 mg/dL * Correction Factor: 25 mg/dL/unit * Nutritional / Prandial insulin per carb ratio of 1 unit per 8 grams CHO consumed
[2022-05-09] MEDS ORDERED: VANCOMYCIN HCL 500 MG in DEXTROSE 5% 100 ML IV ONE (14:00)
--- NOTE | 2022-05-09 16:06 | XCELERA ---
[id number]
[2022-05-09 18:35] LABS: BUN Creatinine Ratio 7.6 (10-20); Calcium 7.3 mg/dl (8.5-10.1); Creatinine Clr Calc Pharmacy 17.7 ml/min; Est GFR (African American) 12.9 ml/min; Est GFR (Non-African American) 11.1 ml/min; Potassium 4.3 mmol/L (3.5-5.1)
[2022-05-09] MEDS: PIPERACILLIN/TAZOBACTAM 4.5 GM CI (over 4 hours) IV SCH (20:00)
[2022-05-09] MEDS: ATORVASTATIN 40 MG TAB PO SCH (20:07)
[2022-05-09] MEDS: MONTELUKAST SODIUM 10 MG TABLET PO SCH (20:07)
[2022-05-10] MEDS: INSULIN ASPART PER UNIT CHARGE SC SCH ×6 (00:14→20:51)
[2022-05-10 06:35] LABS: Hematocrit (blood only) 27.2 % (42.0-52.0); Hemoglobin 8.6 g/dl (14.0-18.0); Mean Corpuscular Hemoglobin 28.5 pg (25.0-34.0); Mean Corpuscular Hgb Conc 31.6 g/dL (32.0-36.0); Mean Corpuscular Volume 90.1 fL (80.0-100.0); Mean Platelet Volume 10.7 fL (9.4-12.4); Nucleated RBC # (auto) 0.02 K/uL (0-0.12); Nucleated RBC % (auto) 0.3 %; Platelet Count 187 K/uL (130-400); RDW Coefficient of Variation 18.3 % (11.5-14.5); RDW Standard Deviation 60.3 fL (36.4-46.3); Red Blood Count 3.02 M/uL (4.70-6.10)
--- NOTE | 2022-05-10 06:42 | Orthopedic Consultation ---
Date of Consultation May 10, 2022 Assessment & Plan (1) Diabetic infection of right foot: Patient seen, evaluated, and treated. Reviewed CT and CT findings of right foot. Images show erosion which may represent changes secondary to OM. Awaiting ID recommendations. Patient does seem to be responding very well to IV abx. Plain films ordered for further evaluation. Patient may benefit from further bedside debridement. Will continue to monitor with daily dressing changes. (2) Acute osteomyelitis of right foot: History of Present Illness Attending Physician: Melvin Estrella DO History of Present Illness Patient is a type II diabetic 51 year old male who is seen at bedside for right diabetic foot ulcer. Patient is known to me from previous right 2nd metatarsal resection, and fourth and fifth ray resection followed by right foot delayed primary closure, done 01/31/2022. Patient relates minimal discomfort. Patient has no other subjective complaints today's visit. Allergies Allergy/AdvReac Type Severity Reaction Status Date / Time codeine Allergy Mild DELIRIUM,ME Verified 05/01/22 16:02 AN tramadol Allergy Mild nausea and Verified 05/01/22 16:02 vomiting Home Medications Medication Instructions Recorded Confirmed Type aspirin 81 mg chewable tablet 81 mg PO QAM 05/06/18 05/01/22 History blood sugar diagnostic #50 ea 12/07/20 05/01/22 Rx miscellaneous medical supply 1 ea miscellaneous DAILY #1 ea 03/08/21 05/01/22 Rx pen needle, diabetic 31 gauge x #100 ea 03/11/21 05/01/22 Rx 3/16" (Easy Comfort Pen [place]) acetaminophen 500 mg capsule 1,000 mg PO TID PRN Pain #180 caps 11/21/21 05/01/22 Rx montelukast 10 mg tablet 10 mg PO HS 01/25/22 05/01/22 History amlodipine 10 mg tablet 10 mg PO DAILY #90 tabs 02/22/22 05/01/22 Rx insulin glargine U-300 conc 300 33 unit (0.11 mL) subcut QAM #4.5 02/22/22 05/01/22 Rx unit/mL (1.5 mL) subcutaneous pen mL (Toujeo SoloStar U-300 Insulin) povidone-iodine 5 % topical spray 1 spray topical .COMPLEX #88.7 mL 02/22/22 05/01/22 Rx (Betadine) ondansetron HCl 4 mg tablet 4 mg PO Q8H PRN nausea and 03/08/22 05/01/22 Rx vomiting #30 tabs cholecalciferol (vitamin D3) 125 125 mcg PO DAILY 03/16/22 05/01/22 History mcg (5,000 unit) capsule amiodarone 200 mg tablet 200 mg PO QAM #90 tabs 03/21/22 05/01/22 Rx apixaban 5 mg tablet (Eliquis) 5 mg PO BID #180 tabs 03/21/22 05/01/22 Rx atorvastatin 40 mg tablet 40 mg PO HS #90 tabs 03/21/22 05/01/22 Rx Hospital Bed Homecare #1 ea 03/24/22 05/01/22 Rx fluticasone furoate 100 1 inh inhalation DAILY 04/04/22 05/01/22 History mcg-vilanterol 25 mcg/dose inhalation powder (Breo Ellipta) hydrochlorothiazide 25 mg tablet 25 mg PO BID 04/04/22 05/01/22 History omeprazole 20 mg tablet,delayed 20 mg PO DAILY 04/04/22 05/01/22 History release betamethasone valerate 0.1 % 1 applic topical BID PRN skin 05/01/22 05/01/22 Rx topical cream irritation #15 grams flash glucose sensor (FreeStyle 05/01/22 05/01/22 History Eric 14 Day Sensor kit) albuterol sulfate 90 mcg/actuation 2 puff inhalation Q6H PRN 05/02/22 05/02/22 Rx aerosol inhaler shortness of breath or wheezing #18 grams Patient History Medical History Acute on chronic diastolic CHF (congestive heart failure) Anemia of chronic disease Arthritis CAD (coronary artery disease) 08/2015- L Cx stent; 11/2017- RCA stent, L Cx stent patent; 07/2019- LM wnl, prox-mid LAD 30%, mid-L Cx stent patent, RCA stent stent with area between stents 30-40%. Sees [facility], Dr Sharad Norton. 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) Repaired s/p PPV, MP, EL (SNT) Dialysis AV fistula malfunction Diverticular disease Elevated troponin End-stage renal disease on hemodialysis ESRD (end stage renal disease) on dialysis dialysis sun-sun-sun is getting dialysis sat prior to colonoscopy 09/29/2019 and will have it again after on sunday09/30/2019 History of COVID-19 (12/2020) Hyperkalemia Hyperlipidemia Hypertension Moderate pulmonary hypertension Nuclear sclerosis of both eyes Obstructive sleep apnea cpap on 4L N/C On home oxygen therapy 4L N/C at all times Osteoarthritis, hip, bilateral Pleural effusion, bilateral 11/2018 Pneumonia Presence of arteriovenous fistula for hemodialysis left forearm Secondary pulmonary hypertension Status post placement of implantable loop recorder (07/07/21) Vitreous hemorrhage of right eye due to diabetes mellitus (12/04/18) Surgical History History of cardiac cath X 2 - 11/2017 - [facility] SOB - 1 stent placed - follows w/ Dr. Zuniga - 2015 - [facility] SOB - 1 stent placed History of colonoscopy History of foot surgery left x 4 History of heart artery stent X2 History of placement of chest tube left lung for pleural effusion 11/2018 History of tooth extraction all teeth S/P arteriovenous (AV) fistula creation 04/2016 Dr. Mena placed S/P AV sera ablation (01/18/22) S/P bilateral cataract extraction (05/2021) S/P cardiac catheterization Dr. Sharad Calvillo at [facility]- 01/09/22 Status post amputation of toe (12/29/21) R 2nd toe d/t infection Status post amputation of toe of right foot (01/27/22) metatarsal resection R toe 2-5 d/t osteomyelitis/gangrene Family History Mother Diabetes Coronary heart disease Heart disease Hypertension Stroke Father Diabetes Coronary heart disease Heart disease Myocardial infarction Hypertension Stroke Other Kidney disease No family history of adverse response to anesthesia Denies family history of Ovarian cancer Prostate cancer Breast cancer Lung cancer Colorectal cancer Social History Smoking Status: Never smoker Second Hand Exposure: No; Do You Dip or Chew Tobacco: No; Tobacco Cessation Education Requested by Patient: No Hx Alcohol Use: No Hx Substance Use: No Preferred Language: Telugu Communication Ability: Effective Visual Impairment: No Limitations Hearing Ability: Normal Speech Pathology Teacher Required: No Beliefs That Will Affect Care: None marital status: Single Current Living Situation: Significant Other Current Living Situation Comment: lives with significant other near [place] current occupational status: disabled How many Children do You have: 0 Other Information That Helps 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 Safe at Home: Yes Safety Concerns: Feels Safe At This Time Childhood Exposure to Second-Hand Smoke: Yes Diet Comment: regular caffeine: No during the past year weight has: remained stable Dental Care, Regularly: No Physical Activity Frequency: 1-2 Times per Week Physical Activity Frequency Comment: walk Seatbelt Use: always Sunscreen Use: No Assistive Devices: BiPap, Oxygen - Continuous, Walker and Other Assistive Devices Comment: Dentures at home Review of Systems Review of Systems: All systems reviewed & are unremarkable except as noted in HPI & below Physical Exam Constitutional: cooperative and comfortable Respiratory: normal respiratory effort Cardiovascular: Rate/Rhythm: regular rate and regular rhythm Pedal pulses audible Musculoskeletal: Right healed second toe amputation, Right fourth and fifth ray resection. Skin: Focused Exam: Wound location:Right lateral foot Wound base color and depth:Full thickness wound fibrous base with exposed tendon Wound size (cm):Roughly 1.2x 1.2 x 0.1cm and 1.5x 1.5 x 0.2cm Odor:mild malodorous Drainage:None Undermining:None Borders:Fibrous Neurologic: Absent epicritic sensation Psychiatric: Orientation: alert and oriented x 3 Results & Data ([facility]) Vital Signs (Past 12 Hours) Vital Signs Temp Pulse Pulse Resp BP Pulse Ox O2 Del Method 05/10/22 02:42 36.7 C 74 19 103/61 99 Nasal Cannula 05/09/22 21:00 74 22 92 05/09/22 22:03 72 05/09/22 22:00 36.5 C 74 19 109/71 96 Nasal Cannula 05/09/22 20:00 Nasal Cannula 05/09/22 19:00 71 19 117/59 L 999 H Nasal Cannula O2 Flow Rate 05/10/22 02:42 05/09/22 21:00 7 05/09/22 22:03 05/09/22 22:00 05/09/22 20:00 4 05/09/22 19:[address] foot RT wo con CLINICAL HISTORY: sepsis, eval osteo TECHNIQUE: Multidetector row helical CT of the right foot was performed without intravenous contrast. Coronal and sagittal reformations were obtained. Automated dose lowering techniques and/or adjustment according to patient size were utilized for this examination. CT DOSE: 186.55 mGy.cm Comparison: Comparison is made to right foot radiograph 01/25/2022 FINDINGS: Patient is status post right second and fifth metatarsals. A bony fragment is in the second digit resection site and there is permeative appearance and irregularity of the fifth digit resection site. Bony fragmentation is noted at the base of the third digit proximal phalanx. These appear unchanged from prior exam. Multilevel degenerative changes are seen. Soft tissue swelling is seen about the foot with the most prominent focus in the second metatarsal resection site. An ulcer is noted at the fifth digit resection site. Vascular calcifications are seen. IMPRESSION: Patient is status post second and fifth metatarsal resection. There is permeative appearance and irregularity at the fifth metatarsal resection site which may represent osteomyelitis. Soft tissue swelling is seen about the foot. ACT 112: Negative or not required by law. Electronically signed by: Ba Lorenz M.D. 05/09/2022 11:36 AM
[2022-05-10 07:00] LABS: Albumin Level 3.2 gm/dl (3.4-5.0); BUN Creatinine Ratio 7.7 (10-20); Bilirubin,Total 0.8 mg/dl (0.2-1.0); Calcium 7.9 mg/dl (8.5-10.1); Creatinine Clr Calc Pharmacy 14.9 ml/min; Est GFR (Non-African American) 8.6 ml/min; Globulin 3.1 gm/dl (2.5-4.0); Potassium 4.7 mmol/L (3.5-5.1); Total Protein 6.3 gm/dl (6.0-8.3)
[2022-05-10 07:11] LABS: INR 1.3 (0.9-1.1); Prothrombin Time 13.3 Seconds (9.0-12.0)
--- NOTE | 2022-05-10 07:35 | XRay Report ---
XR foot RT min 3V routine CLINICAL HISTORY: Foot ulcer COMPARISON: Right foot radiographs January 25, 2022. CT of the right foot May 09, 2022. FINDINGS: Right second and fifth digit amputations are noted at the level of the mid shafts of the m etatarsals. Erosive changes of the remaining portion of the right fifth metatarsal is noted with and adjacent wound. There is relative lucency of the right fourth metatarsal head with an adjacent wound. Interval resection changes of the right third metatarsal head and the base of the right third proxim al phalanx are noted. Minimally displaced avulsion fracture of the base of the right third metatarsal is again noted. There is nonspecific periostitis of the remaining portion of the right second metata rsal. No evidence for ostomy myelitis within the right first digit. 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 There is extensive vascular calcification. IMPRESSION: 1. Status post right second and fifth digit amputations. 2. Findings suggestive of multifocal osteomyelitis within the right foot, involving the remaining por tion of the right fifth metatarsal, the right third and fourth metatarsal heads and the base of the r ight third proximal phalanx. Lateral foot wounds. 3. Nonspecific periostitis of the remaining right second metatarsal. 4. Extensive vascular calcification. ACT 112: Negative or not required by law. Electronically signed by: Manolo Shelton M.D. 05/10/2022 7:33 AM
[2022-05-10] MEDS: APIXABAN 5 MG TABLET PO SCH ×2 (08:11→20:46)
[2022-05-10] MEDS: AMIODARONE 200 MG TAB PO SCH (08:11)
[2022-05-10] MEDS: ASPIRIN 81 MG CHEW PO SCH (08:11)
[2022-05-10] MEDS: FLUTICASONE/VILANTEROL 100/25MCG 14 PUFFS/INHALER INH SCH (08:12)
[2022-05-10] MEDS: PANTOprazole 40 MG TAB PO SCH (08:12)
[2022-05-10] MEDS: CHOLECALCIFEROL 5,000 UNITS 125 MCG TAB PO SCH (08:12)
[2022-05-10] MEDS ORDERED: LANTUS PER UNIT CHARGE SQ SCH ×2 (09:00→21:00)
[2022-05-10] MEDS ORDERED: EPOETIN ALFA 20,000 UNITS/ML VIAL IV ONE (09:08)
--- NOTE | 2022-05-10 09:58 | Pharmacy Report ---
Pharmacy Glycemic Short Note 2 - Date of Service May 10, 2022 - Glycemic Short BSG Results (Last 24 hours): 05/09/22 05/09/22 05/09/22 09:29 11:25 16:50 Glucose 136 H POC Glucose 186 H 142 H 05/09/22 05/09/22 05/10/22 18:00 20:42 00:08 Glucose 116 H POC Glucose 105 H 126 H 05/10/22 05/10/22 05/10/22 04:01 05:34 07:16 Glucose 135 H POC Glucose 123 H 153 H OUTPATIENT ANTIDIABETIC REGIMEN: * Per most recent Endo note: 50 units of Toujeo QAM * A1c unreliable in the setting of HD ASSESSMENT: 05/10 * BSGs well controlled over last 24 hrs * Fasting BSG 123-153 this AM with 15 units basal insulin on board. Patient has HD scheduled today, will give reduced dose this AM and use a scaled dose this PM * Post-prandial BSGs well controlled yesterday using current CF/CR - continue for now 05/09 * Patient currently on basal insulin outpatient, will split basal/bolus * Weight based stress of 2 is similar to stressing outpatient total daily insulin. Will start with these parameters * Adjust as needed with overnight checks, plan for dialysis tomorrow PLAN FOR INPATIENT GLYCEMIC CONTROL: * Hold outpatient oral diabetes medications * Basal insulin * Lantus 10 units SQ QAM + scaled dose at HS 0 units if BSG below 140, 5 units if BSG 140-200, 10 units if BSG above 200 * Bolus insulin * NovoLog per scale ACHS or Q6hrs while NPO * Goal Range: Low 120 mg/dL - High 160 mg/dL * Correction Factor: 25 mg/dL/unit * Nutritional / Prandial insulin per carb ratio of 1 unit per 8 grams CHO consumed
--- NOTE | 2022-05-10 10:02 | Pharmacy Report ---
Pharmacy PK ABX Note - Date of Service May 10, 2022 - Assessment and Plan Assessment 51 year old M receiving vancomycin/zosyn for treatment of R foot osteo/bacteremia transferred from outside facility. Pertinent microbiologic data includes: 05/30 BC reportedly growing GPC in chains at outside facility, will need further follow up. Patient on HD, received 2000mg dose of vancomycin at outside facility prior to transfer. Random level 18.9 this AM. Plan Vancomycin * Will give dose of 500 mg x 1 following today's HD session to ensure level remains therapeutic post treatment * Random level will be checked prior to next scheduled HD session Pharmacy will continue to follow and will adjust dose/frequency as necessary. Thank you. Pharmacy has transitioned to AUC monitoring for vancomycin. AUC/ANKIT is the preferred PK/PD target and is associated with decreased risk of nephrotoxicity compared to traditional trough targets.
--- NOTE | 2022-05-10 10:27 | Nephrology Progress Note ---
Date of Service May 10, 2022 Assessment & Plan (1) End-stage renal disease on hemodialysis: Plan: MWF. Orders for HD today entered into EHR and reviewed with store specialist. Ryan is tolerating treatment well. Qb acceptable. Outpatient Rx: 4.25 hours Qb 500 Qd 600, 2K 2.5Ca, 139Na, 40HCO3. EDW 103 kg. Medications appropriately dosed for kidney function. Renal diet. Document I/O's. Repeat metabolic profile tomorrow AM. (2) Anemia of chronic disease: Plan: Chronic, stable. Maintained on Micera as outpatient. Epogen 41029 units with HD today. Repeat H/H prior to HD Sunday AM. (3) Presence of arteriovenous fistula for hemodialysis: Plan: s/p angioplasty with [employer] by Dr. Mena last month. Good thrill and bruit. AVF has been functioning well since. (4) Hypertension: Plan: Amlodipine per home Rx. (5) Sepsis: Plan: Vanco level 19 preHD. Dosing per pharmacy. Remains on Zosyn/vancomycin. Ortho consult reviewed. Follow up imaging has been ordered. Admission and Anticipated Discharge Date Admission Date: May 09, 2022 Subjective No acute events overnight. Ryan was seen and evaluated during HD. Qb decreased slightly due to high access pressure. Pressures improved. BP slightly low but acceptable. Ryan is tolerating HD well. No fevers or chills. Denies significant pain. Review of Systems Review of Systems: All systems reviewed & are unremarkable except as noted in HPI & below Physical Exam Constitutional: well developed; no acute distress Eyes: no scleral abnormality and no corneal abnormality ENMT: Mouth: no oral mucosal abnormality and oral mucous membranes not dry Neck: normal visual inspection and trachea midline Respiratory: normal respiratory effort Auscultation: lungs clear to auscultation bilaterally Cardiovascular: Rate/Rhythm: regular rate Heart Sounds: normal S1, normal S2 and + murmur Extremities: + AV fistula; no edema Musculoskeletal: Extremities: + foot abnormality; no cyanosis and no clubbing Skin: + turgor decreased, + dry skin and + excoriations; no jaundice Neurologic: Motor/Sensory: no tremor and no asterixis Psychiatric: Orientation: alert and oriented x 3 Results & Data Vital Signs (Past 12 Hours) Vital Signs Temp Pulse Pulse Pulse Resp BP BP 05/10/22 10:00 67 98/62 L 05/10/22 09:30 74 97/63 L 05/10/22 09:20 74 104/63 05/10/22 08:50 36.4 C L 74 05/10/22 08:23 05/10/22 08:00 75 05/10/22 07:35 36.5 C 75 24 107/78 05/10/22 02:42 36.7 C 74 19 103/61 Pulse Ox O2 Del Method O2 Flow Rate 05/10/22 10:00 05/10/22 09:30 05/10/22 09:20 05/10/22 08:50 05/10/22 08:23 Nasal Cannula 4 05/10/22 08:00 05/10/22 07:35 95 Nasal Cannula 4 05/10/22 02:42 99 Nasal Cannula Laboratory Results Laboratory Results - last 24 hr 05/09/22 05/09/22 05/09/22 09:29 09:29 10:59 WBC RBC Hgb Hct MCV MCH MCHC RDW Std Deviation RDW Coeff of Octavio Plt Count MPV Absolute Nucleated RBC Nucleated RBC % (auto) PT INR Sodium 133 L Potassium 5.7 H Chloride 90 L Carbon Dioxide 30 Anion Gap 13 H BUN 39 H Creatinine 5.58 H* Est Cr Clr Drug Dosing Not Reportable Est GFR ( Amer) 12.4 Est GFR (Non-Af Amer) 10.7 BUN/Creatinine Ratio 7.0 L Glucose 136 H POC Glucose Calcium 8.8 Magnesium 1.9 Total Bilirubin 1.0 AST 23 ALT 7 Alkaline Phosphatase 110 H Troponin I High Sens 86.9 H* C-Reactive Protein 21.42 H B-Natriuretic Peptide Total Protein 6.9 Albumin 3.5 Globulin 3.4 Albumin/Globulin Ratio 1.0 Procalcitonin 13.70 H Random Vancomycin 17.5 05/09/22 05/09/22 05/09/22 11:25 12:31 16:50 WBC RBC Hgb Hct MCV MCH MCHC RDW Std Deviation RDW Coeff of Octavio Plt Count MPV Absolute Nucleated RBC Nucleated RBC % (auto) PT INR Sodium Potassium Chloride Carbon Dioxide Anion Gap BUN Creatinine Est Cr Clr Drug Dosing Est GFR ( Amer) Est GFR (Non-Af Amer) BUN/Creatinine Ratio Glucose POC Glucose 186 H 142 H Calcium Magnesium Total Bilirubin AST ALT Alkaline Phosphatase Troponin I High Sens C-Reactive Protein B-Natriuretic Peptide 3842 H Total Protein Albumin Globulin Albumin/Globulin Ratio Procalcitonin Random Vancomycin 05/09/22 05/09/22 05/10/22 18:00 20:42 00:08 WBC RBC Hgb Hct MCV MCH MCHC RDW Std Deviation RDW Coeff of Octavio Plt Count MPV Absolute Nucleated RBC Nucleated RBC % (auto) PT INR Sodium 132 L Potassium 4.3 D Chloride 94 L Carbon Dioxide 26 Anion Gap 12 H BUN 41 H Creatinine 5.40 H* Est Cr Clr Drug Dosing 17.7 Est GFR ( Amer) 12.9 Est GFR (Non-Af Amer) 11.1 BUN/Creatinine Ratio 7.6 L Glucose 116 H POC Glucose 105 H 126 H Calcium 7.3 L Magnesium Total Bilirubin AST ALT Alkaline Phosphatase Troponin I High Sens C-Reactive Protein B-Natriuretic Peptide Total Protein Albumin Globulin Albumin/Globulin Ratio Procalcitonin Random Vancomycin 05/10/22 05/10/22 05/10/22 04:01 05:34 05:34 WBC 6.70 RBC 3.02 L Hgb 8.6 L Hct 27.2 L MCV 90.1 MCH 28.5 MCHC 31.6 L RDW Std Deviation 60.3 H RDW Coeff of Octavio 18.3 H Plt Count 187 MPV 10.7 Absolute Nucleated RBC 0.02 Nucleated RBC % (auto) 0.3 PT INR Sodium Potassium Chloride Carbon Dioxide Anion Gap BUN Creatinine Est Cr Clr Drug Dosing Est GFR ( Amer) Est GFR (Non-Af Amer) BUN/Creatinine Ratio Glucose POC Glucose 123 H Calcium Magnesium Total Bilirubin AST ALT Alkaline Phosphatase Troponin I High Sens C-Reactive Protein B-Natriuretic Peptide Total Protein Albumin Globulin Albumin/Globulin Ratio Procalcitonin Random Vancomycin 18.9 05/10/22 05/10/22 05/10/22 05:34 05:34 07:16 WBC RBC Hgb Hct MCV MCH MCHC RDW Std Deviation RDW Coeff of Octavio Plt Count MPV Absolute Nucleated RBC Nucleated RBC % (auto) PT 13.3 H INR 1.3 H Sodium 132 L Potassium 4.7 Chloride 90 L Carbon Dioxide 28 Anion Gap 14 H BUN 51 H Creatinine 6.66 H* D Est Cr Clr Drug Dosing 14.9 Est GFR ( Amer) 10.0 Est GFR (Non-Af Amer) 8.6 BUN/Creatinine Ratio 7.7 L Glucose 135 H POC Glucose 153 H Calcium 7.9 L Magnesium 2.0 Total Bilirubin 0.8 AST 21 ALT 7 Alkaline Phosphatase 111 H Troponin I High Sens C-Reactive Protein B-Natriuretic Peptide Total Protein 6.3 Albumin 3.2 L Globulin 3.1 Albumin/Globulin Ratio 1.0 Procalcitonin Random Vancomycin PG Care Time/CCT Total # of Minutes Spent Total Time Spent with Patient: Total time spent is greater than 50% in coordination of care (as documented) at patient's floor/unit and/or counseling patient: Coding Level of Care Code 33626 SUB INP/OBS CARE 3/50MIN Diagnoses End-stage renal disease on hemodialysis N18.6; Z99.2 Anemia of chronic disease D63.8 Presence of arteriovenous fistula for hemodialysis Z99.2 Hypertension I10 Sepsis A41.9
--- NOTE | 2022-05-10 13:09 | Infectious Disease Consult ---
Date of Consultation May 10, 2022 Assessment & Plan (1) Sepsis: #Strep bacteremia #R foot osteomyelitis # ESRD on HD #PPM 51 yo M with h/o ESRD on HD via LaVF with recent malfunction, CAD s/p stent placement, Afib s/p AV sera ablation and BiV PPM 01/17, Poor candidate for longer AC, DM, PPVD s/p R 2nd toe amputation 12/29/21, R foot 2-5 metatarsal resection 01/27/22 with multiple excisional debridements since, recent COVID infection, home oxygen 4L d/t restrictive lung disease admitted to [facility] with sep sis on 05/09/22. ID consulted for streptococcal bacteremia. 04/12/22-04/13/22 at due to SOB secondary to COVID and discharged to home with 5 days Dexamethasone and has been struggling with shortness of breath since per most recent PCP notes. On day [employer] patient couldnt complete dialysis due to hypotension and fevers. He was sent back by Home Health to [place] [facility] for evaluation. Blood cultures taken there are apparently growing Streptococcus (records are being faxed) he was TF to [facility]. (2) Dialysis AV fistula malfunction: (3) S/P cardiac pacemaker procedure: (4) Acute osteomyelitis of right foot: (5) Diabetic infection of right foot: Plan -Narrowed to Ceftriaxone -Await Blood cx clearance -R foot debridement/further resection?? ID will follow with you Cathy Gutierrez MD Consultation Information This patient recommendation is based on a telemedicine consult request which was completed asynchronously through chart review and information provided by the primary physician. The patient was not seen or examined today. The evaluation is consultative in nature and all patient care and treatment decisions can either be accepted or rejected by the patient's primary hospital-based treating physician using their own independent medical judgment for their patient. Pedicab Driver contact information: Please call [facility] [phone]. (Phone Number For Physician Use Only) Time Spent Reviewing Chart: 31+ minutes History of Present Illness Reason for Consultation: bacteremia Requesting Physician: Yvan Feng MD Attending Physician: Yvan Feng MD History of Present Illness 51 yo M with h/o ESRD on HD via LaVF with recent malfunction, CAD s/p stent placement, Afib s/p AV sera ablation and BiV PPM 01/17, Poor candidate for longer AC, DM, PPVD s/p R 2nd toe amputation 12/29/21, R foot 2-5 metatarsal resection 01/27/22 with multiple excisional debridements since, recent COVID infection, home oxygen 4L d/t restrictive lung disease admitted to [facility] with sepsis on 05/09/22. ID consulted for streptococcal bacteremia. 04/12/22-04/13/22 at due to SOB secondary to COVID and discharged to home with 5 days Dexamethasone and has been struggling with shortness of breath since per most recent PCP notes. On day [employer] patient couldnt complete dialysis due to hypotension and fevers. He was sent back by [facility] to [place] [facility] for evaluation. Blood cultures taken there are apparently growing Streptococcus (records are being faxed) he was TF to [facility]. Allergies Allergy/AdvReac Type Severity Reaction Status Date / Time codeine Allergy Mild DELIRIUM,ME Verified 05/01/22 16:02 AN tramadol Allergy Mild nausea and Verified 05/01/22 16:02 vomiting Home Medications Medication Instructions Recorded Confirmed Type aspirin 81 mg chewable tablet 81 mg PO QAM 05/06/18 05/01/22 History blood sugar diagnostic #50 ea 12/07/20 05/01/22 Rx miscellaneous medical supply 1 ea miscellaneous DAILY #1 ea 03/08/21 05/01/22 Rx pen needle, diabetic 31 gauge x #100 ea 03/11/21 05/01/22 Rx 3/16" (Easy Comfort Pen Cardwell) acetaminophen 500 mg capsule 1,000 mg PO TID PRN Pain #180 caps 11/21/21 05/01/22 Rx montelukast 10 mg tablet 10 mg PO HS 01/25/22 05/01/22 History amlodipine 10 mg tablet 10 mg PO DAILY #90 tabs 02/22/22 05/01/22 Rx insulin glargine U-300 conc 300 33 unit (0.11 mL) subcut QAM #4.5 02/22/22 05/01/22 Rx unit/mL (1.5 mL) subcutaneous pen mL (Toujeo SoloStar U-300 Insulin) povidone-iodine 5 % topical spray 1 spray topical .COMPLEX #88.7 mL 02/22/22 05/01/22 Rx (Betadine) ondansetron HCl 4 mg tablet 4 mg PO Q8H PRN nausea and 03/08/22 05/01/22 Rx vomiting #30 tabs cholecalciferol (vitamin D3) 125 125 mcg PO DAILY 03/16/22 05/01/22 History mcg (5,000 unit) capsule amiodarone 200 mg tablet 200 mg PO QAM #90 tabs 03/21/22 05/01/22 Rx apixaban 5 mg tablet (Eliquis) 5 mg PO BID #180 tabs 03/21/22 05/01/22 Rx atorvastatin 40 mg tablet 40 mg PO HS #90 tabs 03/21/22 05/01/22 Rx Hospital Bed Homecare #1 ea 03/24/22 05/01/22 Rx fluticasone furoate 100 1 inh inhalation DAILY 04/04/22 05/01/22 History mcg-vilanterol 25 mcg/dose inhalation powder (Breo Ellipta) hydrochlorothiazide 25 mg tablet 25 mg PO BID 04/04/22 05/01/22 History omeprazole 20 mg tablet,delayed 20 mg PO DAILY 04/04/22 05/01/22 History release betamethasone valerate 0.1 % 1 applic topical BID PRN skin 05/01/22 05/01/22 Rx topical cream irritation #15 grams flash glucose sensor (FreeStyle 05/01/22 05/01/22 History Eric 14 Day Sensor kit) albuterol sulfate 90 mcg/actuation 2 puff inhalation Q6H PRN 05/02/22 05/02/22 Rx aerosol inhaler shortness of breath or wheezing #18 grams Patient History Medical History Acute on chronic diastolic CHF (congestive heart failure) Anemia of chronic disease Arthritis CAD (coronary artery disease) 08/2015- L Cx stent; 11/2017- RCA stent, L Cx stent patent; 07/2019- LM wnl, prox-mid LAD 30%, mid-L Cx stent patent, RCA stent stent with area between stents 30-40%. Sees [facility], Dr Sharad Norton. 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) Repaired s/p PPV, MP, EL (SNT) Dialysis AV fistula malfunction Diverticular disease Elevated troponin End-stage renal disease on hemodialysis ESRD (end stage renal disease) on dialysis dialysis sun-sun-sun is getting dialysis sat prior to colonoscopy 09/29/2019 and will have it again after on sunday09/30/2019 History of COVID-19 (12/2020) Hyperkalemia Hyperlipidemia Hypertension Moderate pulmonary hypertension Nuclear sclerosis of both eyes Obstructive sleep apnea cpap on 4L N/C On home oxygen therapy 4L N/C at all times Osteoarthritis, hip, bilateral Pleural effusion, bilateral 11/2018 Pneumonia Presence of arteriovenous fistula for hemodialysis left forearm Secondary pulmonary hypertension Status post placement of implantable loop recorder (07/07/21) Vitreous hemorrhage of right eye due to diabetes mellitus (12/04/18) Surgical History History of cardiac cath X 2 - 11/2017 - [facility] - SOB - 1 stent placed - follows w/ Dr. Zuniga - 2015 - [facility] - SOB - 1 stent placed History of colonoscopy History of foot surgery left x 4 History of heart artery stent X2 History of placement of chest tube left lung for pleural effusion 11/2018 History of tooth extraction all teeth S/P arteriovenous (AV) fistula creation 04/2016 Dr. Mena placed S/P AV sera ablation (01/18/22) S/P bilateral cataract extraction (05/2021) S/P cardiac catheterization Dr. Sharad Calvillo at [facility]- 01/09/22 Status post amputation of toe (12/29/21) R 2nd toe d/t infection Status post amputation of toe of right foot (01/27/22) metatarsal resection R toe 2-5 d/t osteomyelitis/gangrene Family History Mother Diabetes Coronary heart disease Heart disease Hypertension Stroke Father Diabetes Coronary heart disease Heart disease Myocardial infarction Hypertension Stroke Other Kidney disease No family history of adverse response to anesthesia Denies family history of Ovarian cancer Prostate cancer Breast cancer Lung cancer Colorectal cancer Social History Smoking Status: Never smoker Second Hand Exposure: No; Do You Dip or Chew Tobacco: No; Tobacco Cessation Education Requested by Patient: No Hx Alcohol Use: No Hx Substance Use: No Preferred Language: Yemeni Communication Ability: Effective Visual Impairment: No Limitations Hearing Ability: Normal Medical Reimbursement Specialist Required: No Beliefs That Will Affect Care: None marital status: Single Current Living Situation: Significant Other Current Living Situation Comment: lives with significant other near [place] current occupational status: disabled How many Children do You have: 0 Other Information That Helps 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 Safe at Home: Yes Safety Concerns: Feels Safe At This Time Childhood Exposure to Second-Hand Smoke: Yes Diet Comment: regular caffeine: No during the past year weight has: remained stable Dental Care, Regularly: No Physical Activity Frequency: 1-2 Times per Week Physical Activity Frequency Comment: walk Seatbelt Use: always Sunscreen Use: No Assistive Devices: BiPap, Oxygen - Continuous, Walker and Other Assistive Devices Comment: Dentures at home Results & Data Vital Signs (Past 12 Hours) Vital Signs Temp Pulse Pulse Pulse Resp BP BP 05/10/22 12:30 72 95/52 L 05/10/22 12:00 74 96/61 L 05/10/22 11:30 71 105/61 05/10/22 11:00 74 110/75 05/10/22 10:30 73 102/71 05/10/22 10:00 67 98/62 L 05/10/22 09:30 74 97/63 L 05/10/22 09:20 74 104/63 05/10/22 08:50 36.4 C L 74 05/10/22 08:23 05/10/22 08:00 75 05/10/22 07:35 36.5 C 75 24 107/78 05/10/22 02:42 36.7 C 74 19 103/61 Pulse Ox O2 Del Method O2 Flow Rate 05/10/22 12:30 05/10/22 12:00 05/10/22 11:30 05/10/22 11:00 05/10/22 10:30 05/10/22 10:00 05/10/22 09:30 05/10/22 09:20 05/10/22 08:50 05/10/22 08:23 Nasal Cannula 4 05/10/22 08:00 05/10/22 07:35 95 Nasal Cannula 4 05/10/22 02:42 99 Nasal Cannula Laboratory Results Laboratory Results - last 48 hr 05/09/22 05/09/22 05/09/22 09:29 09:29 09:29 WBC 7.64 RBC 3.12 L Hgb 9.1 L Hct 29.0 L MCV 92.9 MCH 29.2 MCHC 31.4 L RDW Std Deviation 63.4 H RDW Coeff of Octavio 18.7 H Plt Count 189 MPV 10.5 Immature Gran % (Auto) 0.3 Neut % (Auto) 76.8 Lymph % (Auto) 10.2 Toole % (Auto) 12.3 Eos % (Auto) 0.0 Baso % (Auto) 0.4 Neut # (Auto) 5.87 Lymph # (Auto) 0.78 L Toole # (Auto) 0.94 H Eos # (Auto) 0.00 Baso # (Auto) 0.03 Immature Gran # (Auto) 0.02 Absolute Nucleated RBC Nucleated RBC % (auto) ESR 55 H PT INR Sodium 133 L Potassium 5.7 H Chloride 90 L Carbon Dioxide 30 Anion Gap 13 H BUN 39 H Creatinine 5.58 H* Est Cr Clr Drug Dosing Not Reportable Est GFR ( Amer) 12.4 Est GFR (Non-Af Amer) 10.7 BUN/Creatinine Ratio 7.0 L Glucose 136 H POC Glucose Lactate Calcium 8.8 Magnesium 1.9 Total Bilirubin 1.0 AST 23 ALT 7 Alkaline Phosphatase 110 H Troponin I High Sens 86.9 H* C-Reactive Protein 21.42 H B-Natriuretic Peptide Total Protein 6.9 Albumin 3.5 Globulin 3.4 Albumin/Globulin Ratio 1.0 Procalcitonin Random Vancomycin 05/09/22 05/09/22 05/09/22 09:29 09:29 10:59 WBC RBC Hgb Hct MCV MCH MCHC RDW Std Deviation RDW Coeff of Octavio Plt Count MPV Immature Gran % (Auto) Neut % (Auto) Lymph % (Auto) Toole % (Auto) Eos % (Auto) Baso % (Auto) Neut # (Auto) Lymph # (Auto) Toole # (Auto) Eos # (Auto) Baso # (Auto) Immature Gran # (Auto) Absolute Nucleated RBC Nucleated RBC % (auto) ESR PT INR Sodium Potassium Chloride Carbon Dioxide Anion Gap BUN Creatinine Est Cr Clr Drug Dosing Est GFR ( Amer) Est GFR (Non-Af Amer) BUN/Creatinine Ratio Glucose POC Glucose Lactate 1.7 Calcium Magnesium Total Bilirubin AST ALT Alkaline Phosphatase Troponin I High Sens C-Reactive Protein B-Natriuretic Peptide Total Protein Albumin Globulin Albumin/Globulin Ratio Procalcitonin 13.70 H Random Vancomycin 17.5 05/09/22 05/09/22 05/09/22 11:25 12:31 16:50 WBC RBC Hgb Hct MCV MCH MCHC RDW Std Deviation RDW Coeff of Octavio Plt Count MPV Immature Gran % (Auto) Neut % (Auto) Lymph % (Auto) Toole % (Auto) Eos % (Auto) Baso % (Auto) Neut # (Auto) Lymph # (Auto) Toole # (Auto) Eos # (Auto) Baso # (Auto) Immature Gran # (Auto) Absolute Nucleated RBC Nucleated RBC % (auto) ESR PT INR Sodium Potassium Chloride Carbon Dioxide Anion Gap BUN Creatinine Est Cr Clr Drug Dosing Est GFR ( Amer) Est GFR (Non-Af Amer) BUN/Creatinine Ratio Glucose POC Glucose 186 H 142 H Lactate Calcium Magnesium Total Bilirubin AST ALT Alkaline Phosphatase Troponin I High Sens C-Reactive Protein B-Natriuretic Peptide 3842 H Total Protein Albumin Globulin Albumin/Globulin Ratio Procalcitonin Random Vancomycin 05/09/22 05/09/22 05/10/22 18:00 20:42 00:08 WBC RBC Hgb Hct MCV MCH MCHC RDW Std Deviation RDW Coeff of Octavio Plt Count MPV Immature Gran % (Auto) Neut % (Auto) Lymph % (Auto) Toole % (Auto) Eos % (Auto) Baso % (Auto) Neut # (Auto) Lymph # (Auto) Toole # (Auto) Eos # (Auto) Baso # (Auto) Immature Gran # (Auto) Absolute Nucleated RBC Nucleated RBC % (auto) ESR PT INR Sodium 132 L Potassium 4.3 D Chloride 94 L Carbon Dioxide 26 Anion Gap 12 H BUN 41 H Creatinine 5.40 H* Est Cr Clr Drug Dosing 17.7 Est GFR ( Amer) 12.9 Est GFR (Non-Af Amer) 11.1 BUN/Creatinine Ratio 7.6 L Glucose 116 H POC Glucose 105 H 126 H Lactate Calcium 7.3 L Magnesium Total Bilirubin AST ALT Alkaline Phosphatase Troponin I High Sens C-Reactive Protein B-Natriuretic Peptide Total Protein Albumin Globulin Albumin/Globulin Ratio Procalcitonin Random Vancomycin 05/10/22 05/10/22 05/10/22 04:01 05:34 05:34 WBC 6.70 RBC 3.02 L Hgb 8.6 L Hct 27.2 L MCV 90.1 MCH 28.5 MCHC 31.6 L RDW Std Deviation 60.3 H RDW Coeff of Octavio 18.3 H Plt Count 187 MPV 10.7 Immature Gran % (Auto) Neut % (Auto) Lymph % (Auto) Toole % (Auto) Eos % (Auto) Baso % (Auto) Neut # (Auto) Lymph # (Auto) Toole # (Auto) Eos # (Auto) Baso # (Auto) Immature Gran # (Auto) Absolute Nucleated RBC 0.02 Nucleated RBC % (auto) 0.3 ESR PT INR Sodium Potassium Chloride Carbon Dioxide Anion Gap BUN Creatinine Est Cr Clr Drug Dosing Est GFR ( Amer) Est GFR (Non-Af Amer) BUN/Creatinine Ratio Glucose POC Glucose 123 H Lactate Calcium Magnesium Total Bilirubin AST ALT Alkaline Phosphatase Troponin I High Sens C-Reactive Protein B-Natriuretic Peptide Total Protein Albumin Globulin Albumin/Globulin Ratio Procalcitonin Random Vancomycin 18.9 05/10/22 05/10/22 05/10/22 05:34 05:34 07:16 WBC RBC Hgb Hct MCV MCH MCHC RDW Std Deviation RDW Coeff of Octavio Plt Count MPV Immature Gran % (Auto) Neut % (Auto) Lymph % (Auto) Toole % (Auto) Eos % (Auto) Baso % (Auto) Neut # (Auto) Lymph # (Auto) Toole # (Auto) Eos # (Auto) Baso # (Auto) Immature Gran # (Auto) Absolute Nucleated RBC Nucleated RBC % (auto) ESR PT 13.3 H INR 1.3 H Sodium 132 L Potassium 4.7 Chloride 90 L Carbon Dioxide 28 Anion Gap 14 H BUN 51 H Creatinine 6.66 H* D Est Cr Clr Drug Dosing 14.9 Est GFR ( Amer) 10.0 Est GFR (Non-Af Amer) 8.6 BUN/Creatinine Ratio 7.7 L Glucose 135 H POC Glucose 153 H Lactate Calcium 7.9 L Magnesium 2.0 Total Bilirubin 0.8 AST 21 ALT 7 Alkaline Phosphatase 111 H Troponin I High Sens C-Reactive Protein B-Natriuretic Peptide Total Protein 6.3 Albumin 3.2 L Globulin 3.1 Albumin/Globulin Ratio 1.0 Procalcitonin Random Vancomycin Microbiology 05/09/22 11:50 Foot,Right Gram Stain - Final 05/09/22 11:50 Foot,Right Wound Culture - Preliminary Group B Beta Strep 05/09/22 09:23 Blood Aerobic Blood Culture - Preliminary No growth in Aerobic bottle after 24 hours. 05/09/22 09:23 Blood Anaerobic Blood Culture - Preliminary No growth in Anaerobic bottle after 24 hours. 05/09/22 09:37 Blood Aerobic Blood Culture - Preliminary No growth in Aerobic bottle after 24 hours. 05/09/22 09:37 Blood Anaerobic Blood Culture - Preliminary No growth in Anaerobic bottle after 24 hours. Diagnostic Findings Chest X-Ray 05/09/22 09:12 XR chest 1V portable CLINICAL HISTORY: sepsis TECHNIQUE: Single frontal radiograph of the chest was obtained. Comparison: Comparison is made to chest radiograph of 01/25/2022 FINDINGS: Exam is limited by underpenetration. Cardiomegaly is noted. Pacemaker is u nchanged. Lungs are underinflated but clear. No evidence of pleural effusion or pneumothorax. IMPRESSION: No acute abnormalities and in particular no radiographic evidence of pneumonia. ACT 112: Negative or not required by law. Electronically signed by: Ba Lorenz M.D. 05/09/2022 11:[address] 05/09/22 09:29 CT foot RT wo con CLINICAL HISTORY: sepsis, eval osteo TECHNIQUE: Multidetector row helical CT of the right foot was performed without intravenous contrast. Coronal and sagittal reformations were obtained. Automated dose lowering techniques and/or adjustment according to patient size were utilized for this examination. CT DOSE: 186.55 mGy.cm Comparison: Comparison is made to right foot radiograph 01/25/2022 FINDINGS: Patient is status post right second and fifth metatarsals. A bony fragment is in the second digit resection site and there is permeative appearance and irregularity of the fifth digit resection site. Bony fragmentation is noted at the base of the third digit proximal phalanx. These appear unchanged from prior exam. Multilevel degenerative changes are seen. Soft tissue swelling is seen about the foot with the most prominent focus in the second metatarsal resection site. An ulcer is noted at the fifth digit resection site. Vascular calcifications are seen. IMPRESSION: Patient is status post second and fifth metatarsal resection. There is permeative appearance and irregularity at the fifth metatarsal resection site which may represent osteomyelitis. Soft tissue swelling is seen about the foot. ACT 112: Negative or not required by law. Electronically signed by: Ba Lorenz M.D. 05/09/2022 11:36 AM Foot X-Ray 05/10/22 06:37 XR foot RT min 3V routine CLINICAL HISTORY: Foot ulcer COMPARISON: Right foot radiographs January 25, 2022. CT of the right foot May 09, 2022. FINDINGS: Right second and fifth digit amputations are noted at the level of the mid shafts of the metatarsals. Erosive changes of the remaining portion of the right fifth metatarsal is noted with and adjacent wound. There is relative lucency of the right fourth metatarsal head with an adjacent wound. Interval resection changes of the right third metatarsal head and the base of the right third proximal phalanx are noted. Minimally displaced avulsion fracture of the base of the right third metatarsal is again noted. There is nonspecific periostitis of the remaining portion of the right second metatarsal. No evidence for ostomy myelitis within the right first digit. 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 There is extensive vascular calcification. IMPRESSION: 1. Status post right second and fifth digit amputations. 2. Findings suggestive of multifocal osteomyelitis within the right foot, involving the remaining portion of the right fifth metatarsal, the right third and fourth metatarsal heads and the base of the right third proximal phalanx. Lateral foot wounds. 3. Nonspecific periostitis of the remaining right second metatarsal. 4. Extensive vascular calcification. ACT 112: Negative or not required by law. Electronically signed by: Manolo Shelton M.D. 05/10/2022 7:33 AM Medications Administered Current Inpatient Medications Acetaminophen (Acetaminophen 325 Mg Tab) 650 mg PO Q4H PRN PRN Reason: Pain or Fever Stop: 06/08/22 09:04 Albuterol (Albuterol Hfa 8 Gm Inhaler) 2 puffs INH Q6H PRN PRN Reason: shortness of breath or wheezing Stop: 06/08/22 09:09 Amiodarone HCl (Amiodarone 200 Mg Tab) 200 mg PO QAM [facility] Stop: 06/08/22 09:29 Last Admin: 05/10/22 08:11 Dose: 200 mg Apixaban (Apixaban 5 Mg Tablet) 5 mg PO BID [facility] Stop: 06/08/22 09:14 Last Admin: 05/10/22 08:11 Dose: 5 mg Aspirin (Aspirin 81 Mg Chew) 81 mg PO QAM [facility] Stop: 06/08/22 09:29 Last Admin: 05/10/22 08:11 Dose: 81 mg Atorvastatin Calcium (Atorvastatin 40 Mg Tab) 40 mg PO HS [facility] Stop: 06/08/22 20:59 Last Admin: 05/09/22 20:07 Dose: 40 mg Betamethasone Valerate (Betamethasone Hallie 0.1% Cr 15 Gm) 1 appln TOP BID PRN PRN Reason: skin irritation Stop: 06/08/22 09:09 Dextrose (Dextrose 50% 50 Ml Syringe) 25 - 50 ml IV UD PRN; Protocol PRN Reason: Hypoglycemia Protocol Stop: 06/08/22 09:04 Fluticasone/Vilanterol (Fluticasone/Vilanterol 100/25mcg 14 Puffs/Inhaler) 1 puffs INH DAILY [facility] Stop: 06/08/22 09:14 Last Admin: 05/10/22 08:12 Dose: 1 puffs Glucagon (Glucagon For Inj 1 Mg Vial) 1 mg SQ UD PRN; Protocol PRN Reason: Hypoglycemia Protocol Stop: 06/08/22 09:04 Glucose (Glucose 10 Tab/Tube) 4 - 8 tab PO UD PRN; Protocol PRN Reason: Hypoglycemia Treatment Stop: 06/08/22 09:04 Glucose (Glucose 40% Gel 15 Gm Tube) 15 - 30 gm PO UD PRN; Protocol PRN Reason: Hypoglycemia Protocol Stop: 06/08/22 09:04 Piperacillin Sod/Tazobactam (Sod 4.5 gm/ Dextrose) 120 mls @ 30 mls/hr IV Q12H [facility]; Protocol Stop: 06/20/22 18:59 Last Infusion: 05/10/22 00:14 Dose: Infused Vancomycin HCl 500 mg/ (Dextrose) 110 mls @ 132 mls/hr IV .AFTER HD COMPLETE ONE; Protocol Stop: 05/10/22 15:49 Insulin Aspart (Insulin Aspart Per Unit) 0 units SC ACHS [facility] Stop: 06/08/22 11:29 Last Admin: 05/10/22 08:11 Dose: 3 units Insulin Glargine (Lantus Per Unit Charge) 10 units SQ QAM [facility] Stop: 06/09/22 08:59 Last Admin: 05/10/22 08:12 Dose: 10 units Insulin Glargine (Lantus Per Unit Charge) 0 units SQ HS [facility]; Protocol Stop: 06/09/22 20:59 Miscellaneous (Carbohydrates For Hypoglycemia ) 15 - 30 gm PO UD PRN PRN Reason: Hypoglycemia Protocol Stop: 06/08/22 09:04 Miscellaneous Information (Pharmacy Glycemic Mgmt Consult) 1 each N/A UD PRN PRN Reason: Consult Stop: 06/08/22 09:04 Miscellaneous Information (Vancomycin Consult Active) 1 each N/A UD PRN PRN Reason: Consult Stop: 06/08/22 09:26 Montelukast Sodium (Montelukast Sodium 10 Mg Tablet) 10 mg PO HS [facility] Stop: 06/08/22 20:59 Last Admin: 05/09/22 20:07 Dose: 10 mg Ondansetron HCl (Ondansetron Inj 2 Mg/Ml 2 Ml Vial) 4 mg IV Q6H PRN PRN Reason: Nausea Stop: 06/08/22 09:04 Pantoprazole Sodium (Pantoprazole 40 Mg Tab) 40 mg PO QAM [facility] Stop: 06/08/22 10:14 Last Admin: 05/10/22 08:12 Dose: 40 mg Patiromer (Patiromer Calcium Sorbitex 8.4 Gm Pack) 8.4 gm PO DAILY@1100 [facility] Stop: 06/08/22 12:14 Last Admin: 05/09/22 12:40 Dose: 8.4 gm Vitamin D (Cholecalciferol 5,000 Units 125 Mcg Tab) 5,000 units PO DAILY [facility] Stop: 06/09/22 08:59 Last Admin: 05/10/22 08:12 Dose: 5,000 units
[2022-05-10] MEDS: PATIROMER CALCIUM SORBITEX 8.4 GM PACK PO SCH (13:40)
[2022-05-10] MEDS: PIPERACILLIN/TAZOBACTAM 4.5 GM CI (over 4 hours) IV SCH (13:46)
--- NOTE | 2022-05-10 14:46 | Hospitalist Progress Note ---
Date of Service May 10, 2022 Assessment & Plan (1) Sepsis: Plan: Patient presented to [facility] with lactic acidosis of 2.9, fever of 38.9. Was found to be bacteremic Was sent to [facility] for escalation of care Patient started on vancomycin and Zosyn Most likely source is right foot infection. Imaging suggestive of right metatarsal osteomyelitis. Awaiting plans from podiatry Blood culture now shows group B streptococcus agalactiae Infectious disease consulted. Patient is currently on ceftriaxone Podiatry on board TTE did not show any vegetation Hemodynamically stable Lactic acidosis resolved No leukocytosis (2) Bacteremia due to group B Streptococcus: Plan: Plan per above (3) Acute osteomyelitis of right foot: Plan: Most likely source of sepsis and bacteremia Podiatry and infectious disease on board Awaiting plan from podiatry (4) Acute metabolic encephalopathy: Plan: Likely secondary to sepsis Resolved Patient states that he was very lethargic and does not remember anything from the day prior to admission. His mind is now clear and now he is able to hold a conversation. (5) CAD (coronary artery disease): Plan: s/p PCI to RCA in 2018. Cath July 2019 w/ patent stent. Follows with Dr Calvillo at [facility] Repeat cardiac cath Mar 2021 for eval showed RCA in-stent restenosis and severe disease involving small, chronically occluded OM3. No intervention performed and medical therapy recommended. No improvement w/ imdur and was to f/u primary cardiology for further med therapy management Not on BB hx orthostatic hypotension/syncope, does not appear to be on EVANGELINA/ARB, presumably due to his ESRD on HD Trop at 141--> 106. Down to 86 on arrival to [facility] Continue ASA, statin EKG for eval, pacemaker interogation EKG w/ CP Monitor on telemetry (6) Carotid artery stenosis: Plan: - Known, <50% bilaterally - Continue ASA (7) Chronic systolic heart failure: Plan: Repeat echo 05/09 showed an EF of 35 to 40% with severe hypokinesis to akinesis of the mid inferolateral wall along with severe LVH. Compared to prior echo in 01/17 at [facility], LV and RV systolic function are similar. Not on beta-alesia due to orthostatic hypotension/syncope Not on EVANGELINA/ARB possibly secondary to the same reason Continue outpatient follow-up with servomechanism assembler at [facility] Appears to be euvolemic and compensated at this time (8) Chronic diastolic heart failure: Plan: Hx grade 3 diastolic HF. On baseline 4L recently, did have COVID last month. 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 Is chronically anemic though of note. 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 He says that he has no recollection of what happened on Sunday and Sunday as he was way too drowsy. Currently he is awake and alert and able to hold a conversation. He tells me that he was seen by podiatry earlier today. Review of Systems Review of Systems: All systems reviewed & are unremarkable except as noted in Subjective Physical Exam Physical Exam: General: Awake, conversant, looks older than his stated age Heart: S1, S2/regular rate and rhythm, no murmur rubs or gallops Lungs: Clear to auscultation bilaterally. Normal effort Abdomen: Soft/nontender/nondistended. No hepatosplenomegaly Extremities: No clubbing/cyanosis. No edema. Right foot dressing on Behavior: Appropriate, cooperative Results & Data Results & Data Vital Signs (Past 12 Hours) Vital Signs Temp Pulse Pulse Pulse Resp BP BP 05/10/22 13:07 36.5 C 72 111/72 05/10/22 13:00 70 109/60 05/10/22 12:30 72 95/52 L 05/10/22 12:00 74 96/61 L 05/10/22 11:30 71 105/61 05/10/22 11:00 74 110/75 05/10/22 10:30 73 102/71 05/10/22 10:00 67 98/62 L 05/10/22 09:30 74 97/63 L 05/10/22 09:20 74 104/63 05/10/22 08:50 36.4 C L 74 05/10/22 08:23 05/10/22 08:00 75 05/10/22 07:35 36.5 C 75 24 107/78 Pulse Ox O2 Del Method O2 Flow Rate 05/10/22 13:07 05/10/22 13:00 05/10/22 12:30 05/10/22 12:00 05/10/22 11:30 05/10/22 11:00 05/10/22 10:30 05/10/22 10:00 05/10/22 09:30 05/10/22 09:20 05/10/22 08:50 05/10/22 08:23 Nasal Cannula 4 05/10/22 08:00 05/10/22 07:35 95 Nasal Cannula 4 Laboratory Results Abnormal lab results 05/09/22 05/09/22 05/09/22 Range/Units 16:50 18:00 20:42 RBC (4.70-6.10) M/uL Hgb (14.0-18.0) g/dl Hct (42.0-52.0) % MCHC (32.0-36.0) g/dL RDW Std Deviation (36.4-46.3) fL RDW Coeff of Octavio (11.5-14.5) % PT (9.0-12.0) Seconds INR (0.9-1.1) Sodium 132 L (136-145) mmol/L Chloride 94 L (98-107) mmol/L Anion Gap 12 H (3-11) BUN 41 H (6-23) mg/dl Creatinine 5.40 H* (0.6-1.4) mg/dl BUN/Creatinine Ratio 7.6 L (10-20) Glucose 116 H (70-99(Fasting)) mg/dl POC Glucose 142 H 105 H (70-99) mg/dl Calcium 7.3 L (8.5-10.1) mg/dl Alkaline Phosphatase (34-104) U/L Albumin (3.4-5.0) gm/dl 05/10/22 05/10/22 05/10/22 Range/Units 00:08 04:01 05:34 RBC 3.02 L (4.70-6.10) M/uL Hgb 8.6 L (14.0-18.0) g/dl Hct 27.2 L (42.0-52.0) % MCHC 31.6 L (32.0-36.0) g/dL RDW Std Deviation 60.3 H (36.4-46.3) fL RDW Coeff of Octavio 18.3 H (11.5-14.5) % PT (9.0-12.0) Seconds INR (0.9-1.1) Sodium (136-145) mmol/L Chloride (98-107) mmol/L Anion Gap (3-11) BUN (6-23) mg/dl Creatinine (0.6-1.4) mg/dl BUN/Creatinine Ratio (10-20) Glucose (70-99(Fasting)) mg/dl POC Glucose 126 H 123 H (70-99) mg/dl Calcium (8.5-10.1) mg/dl Alkaline Phosphatase (34-104) U/L Albumin (3.4-5.0) gm/dl 05/10/22 05/10/22 05/10/22 Range/Units 05:34 05:34 07:16 RBC (4.70-6.10) M/uL Hgb (14.0-18.0) g/dl Hct (42.0-52.0) % MCHC (32.0-36.0) g/dL RDW Std Deviation (36.4-46.3) fL RDW Coeff of Octavio (11.5-14.5) % PT 13.3 H (9.0-12.0) Seconds INR 1.3 H (0.9-1.1) Sodium 132 L (136-145) mmol/L Chloride 90 L (98-107) mmol/L Anion Gap 14 H (3-11) BUN 51 H (6-23) mg/dl Creatinine 6.66 H* D (0.6-1.4) mg/dl BUN/Creatinine Ratio 7.7 L (10-20) Glucose 135 H (70-99(Fasting)) mg/dl POC Glucose 153 H (70-99) mg/dl Calcium 7.9 L (8.5-10.1) mg/dl Alkaline Phosphatase 111 H (34-104) U/L Albumin 3.2 L (3.4-5.0) gm/dl Diagnostic Findings Foot X-Ray 05/10/22 06:37 XR foot RT min 3V routine CLINICAL HISTORY: Foot ulcer COMPARISON: Right foot radiographs January 25, 2022. CT of the right foot May 09, 2022. FINDINGS: Right second and fifth digit amputations are noted at the level of the mid shafts of the metatarsals. Erosive changes of the remaining portion of the right fifth metatarsal is noted with and adjacent wound. There is relative lucency of the right fourth metatarsal head with an adjacent wound. Interval resection changes of the right third metatarsal head and the base of the right third proximal phalanx are noted. Minimally displaced avulsion fracture of the base of the right third metatarsal is again noted. There is nonspecific periostitis of the remaining portion of the right second metatarsal. No evidence for ostomy myelitis within the right first digit. 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 There is extensive vascular calcification. IMPRESSION: 1. Status post right second and fifth digit amputations. 2. Findings suggestive of multifocal osteomyelitis within the right foot, involving the remaining portion of the right fifth metatarsal, the right third and fourth metatarsal heads and the base of the right third proximal phalanx. Lateral foot wounds. 3. Nonspecific periostitis of the remaining right second metatarsal. 4. Extensive vascular calcification. ACT 112: Negative or not required by law. Electronically signed by: Manolo Shelton M.D. 05/10/2022 7:33 AM PG Care Time/CCT Total # of Minutes Spent Total Time Spent with Patient: I spent 55 minutes in the care of this patient. The time was spent in talking to the patient, nurse, care management team, ID bi consultant, pharmacist, reviewing the chart, formulating plan and placing the orders accordingly. Coding Level of Care Code 69664 SUB INP/OBS CARE 3/50MIN Diagnoses Sepsis A41.9 Bacteremia due to group B Streptococcus R78.81; B95.1 Acute osteomyelitis of right foot M86.171 Acute metabolic encephalopathy G93.41 CAD (coronary artery disease) I25.10 Associated angina: without angina Coronary Disease-Associated Artery/Lesion type: [place] artery [place] vs. transplanted heart: [place] heart Carotid artery stenosis I65.29 Chronic systolic heart failure I50.22 Chronic diastolic heart failure I50.32 Chronic respiratory failure with hypoxia, on home O2 therapy J96.11; Z99.81 Diabetes mellitus type 2, uncontrolled E11.65 Glycemic state: with hyperglycemia Diabetic infection of right foot E11.628; L08.9 End-stage renal disease on hemodialysis N18.6; Z99.2 GERD (gastroesophageal reflux disease) K21.9 Hyperlipidemia E78.5 Hypertension I10 Obstructive sleep apnea G47.33 PAF (paroxysmal atrial fibrillation) I48.0 Presence of arteriovenous fistula for hemodialysis Z99.2 S/P cardiac pacemaker procedure Z95.0 (5) CAD (coronary artery disease) Associated angina: without angina Coronary Disease-Associated Artery/Lesion type: [place] artery [place] vs. transplanted heart: [place] heart Qualified Code(s): I25.10 - Atherosclerotic heart disease of [place] coronary artery without angina pectoris (10) Diabetes mellitus type 2, uncontrolled Glycemic state: with hyperglycemia Qualified Code(s): E11.65 - Type 2 diabetes mellitus with hyperglycemia
[2022-05-10] MEDS ORDERED: VANCOMYCIN HCL 500 MG in DEXTROSE 5% 100 ML IV ONE (15:00)
[2022-05-10] MEDS: cefTRIAXone SODIUM 2,000 MG in DEXTROSE 5% 50 ML IV SCH (16:52)
[2022-05-10] MEDS: ATORVASTATIN 40 MG TAB PO SCH (20:46)
[2022-05-10] MEDS: MONTELUKAST SODIUM 10 MG TABLET PO SCH (20:46)
[2022-05-11] MEDS: AMIODARONE 200 MG TAB PO SCH (08:45)
[2022-05-11] MEDS: ASPIRIN 81 MG CHEW PO SCH (08:48)
[2022-05-11] MEDS: APIXABAN 5 MG TABLET PO SCH ×2 (08:48→20:41)
[2022-05-11] MEDS: PANTOprazole 40 MG TAB PO SCH (08:48)
[2022-05-11] MEDS: CHOLECALCIFEROL 5,000 UNITS 125 MCG TAB PO SCH (08:48)
[2022-05-11] MEDS: INSULIN ASPART PER UNIT CHARGE SC SCH ×4 (08:49→20:48)
[2022-05-11] MEDS: FLUTICASONE/VILANTEROL 100/25MCG 14 PUFFS/INHALER INH SCH (08:54)
[2022-05-11] MEDS ORDERED: LANTUS PER UNIT CHARGE SQ SCH ×2 (09:00→11:30)
[2022-05-11 10:19] LABS: Hematocrit (blood only) 25.2 % (42.0-52.0); Hemoglobin 7.8 g/dl (14.0-18.0); Mean Corpuscular Hemoglobin 28.5 pg (25.0-34.0); Mean Platelet Volume 10.5 fL (9.4-12.4); Nucleated RBC # (auto) 0.03 K/uL (0-0.12); Nucleated RBC % (auto) 0.4 %; Platelet Count 188 K/uL (130-400); RDW Coefficient of Variation 18.6 % (11.5-14.5); RDW Standard Deviation 61.6 fL (36.4-46.3); Red Blood Count 2.74 M/uL (4.70-6.10); White Blood Count 7.37 K/ul (4.8-10.8)
--- NOTE | 2022-05-11 10:31 | Nephrology Progress Note ---
Date of Service May 11, 2022 Assessment & Plan (1) End-stage renal disease on hemodialysis: Plan: MWF. Tolerated treatment well yesterday. No complications with HD. Volume status controlled. Adequate clearance. Outpatient Rx: 4.25 hours Qb 500 Qd 600, 2K 2.5Ca, 139Na, 40HCO3. EDW 103 kg. Medications appropriately dosed for kidney function. Renal diet. Document I/O's. Repeat metabolic profile tomorrow AM. (2) Anemia of chronic disease: Plan: Epogen 68456 units with HD yesterday. Repeat H/H prior to HD Sunday AM. (3) Presence of arteriovenous fistula for hemodialysis: Plan: s/p angioplasty with IRON LAUNDER OPERATOR by Dr. Mena last month. Good thrill and bruit. AVF has been functioning well since. (4) Hypertension: Plan: Amlodipine per home Rx. (5) Sepsis: Plan: Vanco level 19 preHD. Dosing per pharmacy. Remains on Zosyn/vancomycin. Ortho consult reviewed. Follow up imaging has been ordered. Admission and Anticipated Discharge Date Admission Date: May 09, 2022 Subjective No acute events overnight. Tolerated HD yesterday without complications. No complaints this AM. Denies fevers or chills. Denies notable pain. Review of Systems Review of Systems: All systems reviewed & are unremarkable except as noted in HPI & below Physical Exam Constitutional: well developed; no acute distress Eyes: no scleral abnormality and no corneal abnormality ENMT: Mouth: no oral mucosal abnormality and oral mucous membranes not dry Neck: normal visual inspection and trachea midline Respiratory: normal respiratory effort Auscultation: lungs clear to auscultation bilaterally Cardiovascular: Rate/Rhythm: regular rate Heart Sounds: normal S1, normal S2 and + murmur Extremities: + AV fistula; no edema Musculoskeletal: Extremities: + foot abnormality; no cyanosis and no clubbing Skin: + turgor decreased, + dry skin and + excoriations; no jaundice Neurologic: Motor/Sensory: no tremor and no asterixis Psychiatric: Orientation: alert and oriented x 3 Results & Data Vital Signs (Past 12 Hours) Vital Signs Temp Pulse Pulse Resp BP Pulse Ox O2 Del Method 05/11/22 08:53 Nasal Cannula 05/11/22 07:00 36.8 C 70 17 116/68 90 Nasal Cannula 05/11/22 03:18 36.7 C 70 18 102/60 93 Room Air O2 Flow Rate 05/11/22 08:53 4 05/11/22 07:00 4 05/11/22 03:18 Laboratory Results Laboratory Results - last 24 hr 05/10/22 05/10/22 05/10/22 13:41 16:23 20:34 WBC RBC Hgb Hct MCV MCH MCHC RDW Std Deviation RDW Coeff of Octavio Plt Count MPV Absolute Nucleated RBC Nucleated RBC % (auto) POC Glucose 95 109 H 82 05/10/22 05/10/22 05/11/22 22:09 23:15 00:37 WBC RBC Hgb Hct MCV MCH MCHC RDW Std Deviation RDW Coeff of Octavio Plt Count MPV Absolute Nucleated RBC Nucleated RBC % (auto) POC Glucose 93 86 99 05/11/22 05/11/22 07:20 09:45 WBC 7.37 RBC 2.74 L Hgb 7.8 L Hct 25.2 L MCV 92.0 MCH 28.5 MCHC 31.0 L RDW Std Deviation 61.6 H RDW Coeff of Octavio 18.6 H Plt Count 188 MPV 10.5 Absolute Nucleated RBC 0.03 Nucleated RBC % (auto) 0.4 POC Glucose 193 H PG Care Time/CCT Total # of Minutes Spent Total Time Spent with Patient: Total time spent is greater than 50% in coordination of care (as documented) at patient's floor/unit and/or counseling patient: Coding Level of Care Code 92757 SUB INP/OBS CARE 3/50MIN Diagnoses End-stage renal disease on hemodialysis N18.6; Z99.2 Anemia of chronic disease D63.8 Presence of arteriovenous fistula for hemodialysis Z99.2 Hypertension I10 Sepsis A41.9
--- NOTE | 2022-05-11 11:25 | Pharmacy Report ---
Pharmacy Glycemic Short Note 2 - Date of Service May 11, 2022 - Glycemic Short BSG Results (Last 24 hours): 05/10/22 05/10/22 05/10/22 13:41 16:23 20:34 POC Glucose 95 109 H 82 05/10/22 05/10/22 05/11/22 22:09 23:15 00:37 POC Glucose 93 86 99 05/11/22 07:20 POC Glucose 193 H OUTPATIENT ANTIDIABETIC REGIMEN: * Per most recent Endo note: 50 units of Toujeo QAM * A1c unreliable in the setting of HD ASSESSMENT: 05/11: * Received 25 units of insulin over the last 24 hours, 10 units basal + 15 units bolus. BSGs well controlled: 173-84-344-82 mg/dL. * Fasting BSG increased to 193 mg/dL. Attempted to increase basal to 15 units this AM. Patient refused. Discussed with RN. Patient refusing secondary to BSGs less than 100 mg/dL yesterday. Had RN educate patient that basal insulin was unlikely the cause for this and that patient will require basal insulin in some capacity today. * Patient agreeable to 8 units of Lantus at lunchtime. Appreciate RN's help. * Will loosen carb ratio to prevent hypoglycemia. 05/10 * BSGs well controlled over last 24 hrs * Fasting BSG 123-153 this AM with 15 units basal insulin on board. Patient has HD scheduled today, will give reduced dose this AM and use a scaled dose this PM * Post-prandial BSGs well controlled yesterday using current CF/CR - continue for now 05/09 * Patient currently on basal insulin outpatient, will split basal/bolus * Weight based stress of 2 is similar to stressing outpatient total daily insulin. Will start with these parameters * Adjust as needed with overnight checks, plan for dialysis tomorrow PLAN FOR INPATIENT GLYCEMIC CONTROL: * Basal insulin * Lantus 8 units SC daily * Bolus insulin * NovoLog per scale ACHS or Q6hrs while NPO * Goal Range: Low 120 mg/dL - High 160 mg/dL * Correction Factor: 25 mg/dL/unit * Nutritional / Prandial insulin per carb ratio of 1 unit per 10 grams CHO consumed
[2022-05-11] MEDS: PATIROMER CALCIUM SORBITEX 8.4 GM PACK PO SCH (11:35)
--- NOTE | 2022-05-11 11:58 | Hospitalist Progress Note ---
Date of Service May 11, 2022 Assessment & Plan (1) Sepsis: Plan: Patient presented to [facility] with lactic acidosis of 2.9, fever of 38.9. Was found to be bacteremic Was sent to [facility] for escalation of care Patient started on vancomycin and Zosyn Most likely source is right foot infection. Imaging suggestive of right metatarsal osteomyelitis. Podiatry on board, ordered bone scan as MRI cannot be done due to pacemaker Blood culture now shows group B streptococcus agalactiae. Wound culture also growing same organism Infectious disease consulted. Patient is currently on ceftriaxone Blood culture from 05/09 so far negative TTE did not show any vegetation Hemodynamically stable Lactic acidosis resolved No leukocytosis (2) Bacteremia due to group B Streptococcus: Plan: Plan per above (3) Acute osteomyelitis of right foot: Plan: Most likely source of sepsis and bacteremia Podiatry and infectious disease on board Podiatry ordered a bone scan as MRI could not be done due to pacemaker Awaiting further recommendations Patient will most likely need surgical debridement as wound culture and blood culture growing same organism (4) Acute metabolic encephalopathy: Plan: Likely secondary to sepsis Resolved Patient states that he was very lethargic and does not remember anything from the day prior to admission. His mind is now clear and now he is able to hold a conversation. (5) CAD (coronary artery disease): Plan: s/p PCI to RCA in 2017. Cath July 2019 w/ patent stent. Follows with Dr Calvillo at [facility] Repeat cardiac cath Mar 2021 for eval showed RCA in-stent restenosis and severe disease involving small, chronically occluded OM3. No intervention performed and medical therapy recommended. No improvement w/ imdur and was to f/u primary cardiology for further med therapy management Not on BB hx orthostatic hypotension/syncope, does not appear to be on EVANGELINA/ARB, presumably due to his ESRD on HD Trop at 141--> 106. Down to 86 on arrival to [facility] Continue ASA, statin EKG for eval, pacemaker interogation EKG w/ CP Monitor on telemetry (6) Carotid artery stenosis: Plan: - Known, <50% bilaterally - Continue ASA (7) Chronic systolic heart failure: Plan: Repeat echo 05/09 showed an EF of 35 to 40% with severe hypokinesis to akinesis of the mid inferolateral wall along with severe LVH. Compared to prior echo in 01/17 at [facility], LV and RV systolic function are similar. Not on beta-alesia due to orthostatic hypotension/syncope Not on EVANGELINA/ARB possibly secondary to the same reason Continue outpatient follow-up with financial sales representative at [facility] Appears to be euvolemic and compensated at this time (8) Chronic diastolic heart failure: Plan: Hx grade 3 diastolic HF. On baseline 4L recently, did have COVID last month. 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 Is chronically anemic though of note. 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 Denies chest pain or shortness of breath. Complaining about his meals being too restrictive. Physical Exam Physical Exam: General: Awake, conversant, looks older than his stated age Heart: S1, S2/regular rate and rhythm, no murmur rubs or gallops Lungs: Clear to auscultation bilaterally. Normal effort Abdomen: Soft/nontender/nondistended. No hepatosplenomegaly Extremities: No clubbing/cyanosis. No edema. Right foot dressing on Behavior: Appropriate, cooperative Results & Data Results & Data Vital Signs (Past 12 Hours) Vital Signs Temp Pulse Pulse Resp BP Pulse Ox O2 Del Method 05/11/22 11:00 36.4 C L 70 26 H 119/74 95 Nasal Cannula 05/11/22 08:53 Nasal Cannula 05/11/22 07:00 36.8 C 70 17 116/68 90 Nasal Cannula 05/11/22 03:18 36.7 C 70 18 102/60 93 Room Air O2 Flow Rate 05/11/22 11:00 4 05/11/22 08:53 4 05/11/22 07:00 4 05/11/22 03:18 Laboratory Results Abnormal lab results 05/10/22 05/11/22 05/11/22 Range/Units 16:23 07:20 09:45 RBC 2.74 L (4.70-6.10) M/uL Hgb 7.8 L (14.0-18.0) g/dl Hct 25.2 L (42.0-52.0) % MCHC 31.0 L (32.0-36.0) g/dL RDW Std Deviation 61.6 H (36.4-46.3) fL RDW Coeff of Octavio 18.6 H (11.5-14.5) % POC Glucose 109 H 193 H (70-99) mg/dl 05/11/22 Range/Units 11:31 RBC (4.70-6.10) M/uL Hgb (14.0-18.0) g/dl Hct (42.0-52.0) % MCHC (32.0-36.0) g/dL RDW Std Deviation (36.4-46.3) fL RDW Coeff of Octavio (11.5-14.5) % POC Glucose 123 H (70-99) mg/dl PG Care Time/CCT Total # of Minutes Spent Total Time Spent: 35 Total Time Spent with Patient: I spent 35 minutes in the care of this patient. The time was spent in talking to the patient, nurse, care management team, reviewing the chart, formulating plan and placing the orders accordingly. Coding Level of Care Code 27967 SUB INP/OBS CARE 2/35MIN Diagnoses Sepsis A41.9 Bacteremia due to group B Streptococcus R78.81; B95.1 Acute osteomyelitis of right foot M86.171 Acute metabolic encephalopathy G93.41 CAD (coronary artery disease) I25.10 Associated angina: without angina Coronary Disease-Associated Artery/Lesion type: [place] artery [place] vs. transplanted heart: [place] heart Carotid artery stenosis I65.29 Chronic systolic heart failure I50.22 Chronic diastolic heart failure I50.32 Chronic respiratory failure with hypoxia, on home O2 therapy J96.11; Z99.81 Diabetes mellitus type 2, uncontrolled E11.65 Glycemic state: with hyperglycemia Diabetic infection of right foot E11.628; L08.9 End-stage renal disease on hemodialysis N18.6; Z99.2 GERD (gastroesophageal reflux disease) K21.9 Hyperlipidemia E78.5 Hypertension I10 Obstructive sleep apnea G47.33 PAF (paroxysmal atrial fibrillation) I48.0 Presence of arteriovenous fistula for hemodialysis Z99.2 S/P cardiac pacemaker procedure Z95.0 (5) CAD (coronary artery disease) Associated angina: without angina Coronary Disease-Associated Artery/Lesion type: [place] artery [place] vs. transplanted heart: [place] heart Qualified Code(s): I25.10 - Atherosclerotic heart disease of [place] coronary artery without angina pectoris (10) Diabetes mellitus type 2, uncontrolled Glycemic state: with hyperglycemia Qualified Code(s): E11.65 - Type 2 diabetes mellitus with hyperglycemia
--- NOTE | 2022-05-11 13:00 | Orthopedic Progress Note ---
Date of Service May 11, 2022 Assessment & Plan (1) Diabetic infection of right foot: Plan: Patient seen, evaluated, and treated. Patient is unable to undergo MRI due to pacemaker. Awaiting 3 phase Bone scan to rule out OM. CT and plain film may be result of previous post operative monitoring. Patient does seem to be responding very well to IV abx. If Bone scan + Patient will be scheduled for OR debridement with resection of OM bone. Will continue to monitor with daily dressing changes. (2) Acute osteomyelitis of right foot: Admission and Anticipated Discharge Date Admission Date: May 09, 2022 Subjective Patient seen at bedside resting comfortably. He notes no complaints. Dressing is intact. Review of Systems Review of Systems: All systems reviewed & are unremarkable except as noted in Subjective Physical Exam Constitutional: cooperative and comfortable Respiratory: normal respiratory effort Cardiovascular: Rate/Rhythm: regular rate and regular rhythm Skin: Focused Exam: Wound location:Right lateral foot Wound base color and depth:Full thickness wound probes to bone. Wound size (cm):Roughly 1.2x 1.2 x 0.1cm and 1.5x 1.5 x 0.2cm Odor:mild malodorous Drainage:None Undermining:None Borders:Fibrous Psychiatric: Orientation: alert and oriented x 3 Results & Data Vital Signs (Past 12 Hours) Vital Signs Temp Pulse Pulse Resp BP Pulse Ox O2 Del Method 05/11/22 11:00 36.4 C L 70 26 H 119/74 95 Nasal Cannula 05/11/22 08:53 Nasal Cannula 05/11/22 07:00 36.8 C 70 17 116/68 90 Nasal Cannula 05/11/22 03:18 36.7 C 70 18 102/60 93 Room Air O2 Flow Rate 05/11/22 11:00 4 05/11/22 08:53 4 05/11/22 07:00 4 05/11/22 03:18
[2022-05-11] MEDS: cefTRIAXone SODIUM 2,000 MG in DEXTROSE 5% 50 ML IV SCH (16:01)
[2022-05-11] MEDS: ATORVASTATIN 40 MG TAB PO SCH (20:40)
[2022-05-11] MEDS: MONTELUKAST SODIUM 10 MG TABLET PO SCH (20:41)
--- NOTE | 2022-05-11 23:35 | Electrocardiogram Report ---
Test Reason : Blood Pressure : / mmHG Vent. Rate : 078 BPM Atrial Rate : 108 BPM P-R Int : 000 ms QRS Dur : 186 ms QT Int : 470 ms P-R-T Axes : 000 100 100 degrees QTc Int : 535 ms Poor data quality, interpretation may be adversely affected Ventricular-paced rhythm with occasional AV dual-paced complexes Biventricular pacemaker detected Abnormal ECG When compared with ECG of 01-FEB-2022 14:48, Vent. rate has increased BY 8 BPM Confirmed by Nikita Denis ([id number]) on 05/11/2022 11:35:32 PM Referred By: Johny Castorena Confirmed By:Nikita Denis
[2022-05-11] MEDS: ACETAMINOPHEN 325 MG TAB PO PRN (23:40)
[2022-05-12] MEDS: ACETAMINOPHEN 325 MG TAB PO PRN ×4 (05:13→23:48)
[2022-05-12 06:51] LABS: Hematocrit (blood only) 27.1 % (42.0-52.0); Hemoglobin 8.5 g/dl (14.0-18.0); Mean Corpuscular Hemoglobin 28.4 pg (25.0-34.0); Mean Corpuscular Hgb Conc 31.4 g/dL (32.0-36.0); Mean Corpuscular Volume 90.6 fL (80.0-100.0); Mean Platelet Volume 10.5 fL (9.4-12.4); Nucleated RBC # (auto) 0.09 K/uL (0-0.12); Nucleated RBC % (auto) 1.1 %; Platelet Count 203 K/uL (130-400); RDW Coefficient of Variation 18.6 % (11.5-14.5); RDW Standard Deviation 61.1 fL (36.4-46.3); Red Blood Count 2.99 M/uL (4.70-6.10); White Blood Count 8.12 K/ul (4.8-10.8)
[2022-05-12 07:17] LABS: BUN Creatinine Ratio 5.1 (10-20); Calcium 7.7 mg/dl (8.5-10.1); Creatinine Clr Calc Pharmacy 16.1 ml/min; Est GFR (African American) 10.8 ml/min; Est GFR (Non-African American) 9.3 ml/min; Potassium 3.9 mmol/L (3.5-5.1)
[2022-05-12] MEDS ORDERED: HEPARIN SOD (PORCINE) 1000 UNIT/ML IV ONE (08:54)
[2022-05-12] MEDS ORDERED: LANTUS PER UNIT CHARGE SQ SCH (09:00)
[2022-05-12] MEDS: INSULIN ASPART PER UNIT CHARGE SC SCH ×4 (09:04→19:35)
[2022-05-12] MEDS: APIXABAN 5 MG TABLET PO SCH ×2 (09:05→19:34)
[2022-05-12] MEDS: AMIODARONE 200 MG TAB PO SCH (09:05)
[2022-05-12] MEDS: FLUTICASONE/VILANTEROL 100/25MCG 14 PUFFS/INHALER INH SCH (09:05)
[2022-05-12] MEDS: CHOLECALCIFEROL 5,000 UNITS 125 MCG TAB PO SCH (09:05)
[2022-05-12] MEDS: PANTOprazole 40 MG TAB PO SCH (09:06)
[2022-05-12] MEDS: ASPIRIN 81 MG CHEW PO SCH (09:07)
--- NOTE | 2022-05-12 10:09 | Nephrology Progress Note ---
Date of Service May 12, 2022 Assessment & Plan (1) End-stage renal disease on hemodialysis: Plan: HD MWF. Orders for treatment today entered into the EHR and reviewed with domestic violence counselor. Outpatient Rx: 4.25 hours Qb 500 Qd 600, 2K 2.5Ca, 139Na, 40HCO3. EDW 103 kg. Anticoagulated with Eliquis for atrial fibrillation. Medications appropriately dosed for kidney function. Renal diet. Document I/O's. Repeat metabolic profile tomorrow AM. (2) Anemia of chronic disease: Plan: Epogen 32221 units with HD Sunday. (3) Presence of arteriovenous fistula for hemodialysis: Plan: s/p angioplasty with INTELL[employer] MANAGER by Dr. Mena last month. Good thrill and bruit. AVF has been functioning well since. (4) Hypertension: Plan: Amlodipine per home Rx. (5) Sepsis: Plan: Ortho following. Bone scan this AM. No MRI due to pacer. HD post nuclear scan. R foot diabetic infection with possible metatarsal osteomyelitis. Group B strep in blood and wound. ID following. TTE did not demonstrate any concerning vegetation. blood cultures have cleared. Remains on ceftriaxone. Admission and Anticipated Discharge Date Admission Date: May 09, 2022 Subjective No acute events overnight. No fevers or chills. Ryan feels well. Bone scan pending. Denies shortness of breath. Denies pain. Review of Systems Review of Systems: All systems reviewed & are unremarkable except as noted in HPI & below Physical Exam Constitutional: well developed; no acute distress Eyes: no scleral abnormality and no corneal abnormality ENMT: Mouth: no oral mucosal abnormality and oral mucous membranes not dry Neck: normal visual inspection and trachea midline Respiratory: normal respiratory effort Auscultation: lungs clear to auscultation bilaterally Cardiovascular: Rate/Rhythm: regular rate Heart Sounds: normal S1, normal S2 and + murmur Extremities: + AV fistula; no edema Musculoskeletal: Extremities: + foot abnormality; no cyanosis and no clubbing Skin: + turgor decreased, + dry skin and + excoriations; no jaundice Neurologic: Motor/Sensory: no tremor and no asterixis Psychiatric: Orientation: alert and oriented x 3 Results & Data Vital Signs (Past 12 Hours) Vital Signs Temp Pulse Resp BP Pulse Ox O2 Del Method 05/12/22 07:26 36.8 C 73 18 134/87 98 Nasal Cannula 05/12/22 03:08 36.5 C 72 18 123/75 92 Nasal Cannula 05/11/22 23:24 36.4 C L 70 18 115/73 93 Nasal Cannula Laboratory Results Laboratory Results - last 24 hr 05/11/22 05/11/22 05/11/22 09:45 11:31 13:43 WBC 7.37 RBC 2.74 L Hgb 7.8 L Hct 25.2 L MCV 92.0 MCH 28.5 MCHC 31.0 L RDW Std Deviation 61.6 H RDW Coeff of Octavio 18.6 H Plt Count 188 MPV 10.5 Absolute Nucleated RBC 0.03 Nucleated RBC % (auto) 0.4 Sodium Potassium Chloride Carbon Dioxide Anion Gap BUN Creatinine Est Cr Clr Drug Dosing Est GFR ( Amer) Est GFR (Non-Af Amer) BUN/Creatinine Ratio Glucose POC Glucose 123 H 99 Calcium Random Vancomycin 05/11/22 05/11/22 05/11/22 14:25 16:24 20:47 WBC RBC Hgb Hct MCV MCH MCHC RDW Std Deviation RDW Coeff of Octavio Plt Count MPV Absolute Nucleated RBC Nucleated RBC % (auto) Sodium Potassium Chloride Carbon Dioxide Anion Gap BUN Creatinine Est Cr Clr Drug Dosing Est GFR ( Amer) Est GFR (Non-Af Amer) BUN/Creatinine Ratio Glucose POC Glucose 90 91 128 H Calcium Random Vancomycin 05/12/22 05/12/22 05/12/22 03:06 05:55 05:55 WBC 8.12 RBC 2.99 L Hgb 8.5 L Hct 27.1 L MCV 90.6 MCH 28.4 MCHC 31.4 L RDW Std Deviation 61.1 H RDW Coeff of Octavio 18.6 H Plt Count 203 MPV 10.5 Absolute Nucleated RBC 0.09 Nucleated RBC % (auto) 1.1 Sodium Potassium Chloride Carbon Dioxide Anion Gap BUN Creatinine Est Cr Clr Drug Dosing Est GFR ( Amer) Est GFR (Non-Af Amer) BUN/Creatinine Ratio Glucose POC Glucose 103 H Calcium Random Vancomycin 11.9 05/12/22 05/12/22 05:55 07:03 WBC RBC Hgb Hct MCV MCH MCHC RDW Std Deviation RDW Coeff of Octavio Plt Count MPV Absolute Nucleated RBC Nucleated RBC % (auto) Sodium 132 L Potassium 3.9 Chloride 94 L Carbon Dioxide 25 Anion Gap 13 H BUN 32 H Creatinine 6.27 H* Est Cr Clr Drug Dosing 16.1 Est GFR ( Amer) 10.8 Est GFR (Non-Af Amer) 9.3 BUN/Creatinine Ratio 5.1 L Glucose 137 H POC Glucose 143 H Calcium 7.7 L Random Vancomycin PG Care Time/CCT Total # of Minutes Spent Total Time Spent with Patient: Total time spent is greater than 50% in coordination of care (as documented) at patient's floor/unit and/or counseling patient: Coding Level of Care Code 50937 SUB INP/OBS CARE 3/50MIN Diagnoses End-stage renal disease on hemodialysis N18.6; Z99.2 Anemia of chronic disease D63.8 Presence of arteriovenous fistula for hemodialysis Z99.2 Hypertension I10 Sepsis A41.9
--- NOTE | 2022-05-12 11:27 | Pharmacy Report ---
Pharmacy Glycemic Short Note 2 - Date of Service May 12, 2022 - Glycemic Short BSG Results (Last 24 hours): 05/11/22 05/11/22 05/11/22 11:31 13:43 14:25 Glucose POC Glucose 123 H 99 90 05/11/22 05/11/22 05/12/22 16:24 20:47 03:06 Glucose POC Glucose 91 128 H 103 H 05/12/22 05/12/22 05:55 07:03 Glucose 137 H POC Glucose 143 H OUTPATIENT ANTIDIABETIC REGIMEN: * Per most recent Endo note: 50 units of Toujeo QAM * A1c unreliable in the setting of HD ASSESSMENT: 05/12: * BSGs over last 24 hours have been well controlled: 281-504-29-128 mg/dL. Received 22 units of insulin, 8 units basal + 14 units bolus. * Fasting BSG was 143 mg/dL this AM. Patient is refusing Lantus. Will discontinue all basal insulin at this time. Removing carb ratio. Loosening goal to 140-180. All changes made due to patient preference. 05/11: * Received 25 units of insulin over the last 24 hours, 10 units basal + 15 units bolus. BSGs well controlled: 176-32-713-82 mg/dL. * Fasting BSG increased to 193 mg/dL. Attempted to increase basal to 15 units this AM. Patient refused. Discussed with RN. Patient refusing secondary to BSGs less than 100 mg/dL yesterday. Had RN educate patient that basal insulin was unlikely the cause for this and that patient will require basal insulin in some capacity today. * Patient agreeable to 8 units of Lantus at lunchtime. Appreciate RN's help. * Will loosen carb ratio to prevent hypoglycemia. PLAN FOR INPATIENT GLYCEMIC CONTROL: * Basal insulin * None * Bolus insulin * NovoLog per scale ACHS or Q6hrs while NPO * Goal Range: Low 140 mg/dL - High 180 mg/dL * Correction Factor: 25 mg/dL/unit * No carb coverage
--- NOTE | 2022-05-12 12:44 | Nuclear Medicine Report ---
THREE-PHASE BONE SCAN OF THE FEET CLINICAL HISTORY: r/o osteomyelitis right foot. Please do b/l LE COMPARISON STUDY: CT of the right foot May 09, 2022 and right foot radiographs May 10, 2022. TECHNIQUE: 26 mCi of technetium 99m MDP was injected IV at 7:45 AM on May 12, 2022. Immediately fol lowing injection, flow images of the ankles and feet were obtained in the anterior and posterior proj ections. Blood pool imaging was then performed followed by 3 hour delayed phase imaging of the lower extremities in multiple projections. FINDINGS: There is abnormal increased radiotracer uptake on all 3 phases within the right foot. Amput ation of the right second and fifth digits is better depicted on radiographs. Delayed phase images de monstrate moderate multifocal uptake within the right foot. This includes uptake within the remaining portion of the right fifth metatarsal and the right third and fourth metatarsals as well. There is a lso mild asymmetric uptake within the right calcaneus, a nonspecific finding. There is slight increas e uptake within the remaining portion of the right second metatarsal. No abnormal uptake within the l eft foot is present. No additional foci suspicious for osteomyelitis are present. IMPRESSION: Abnormal 3 phase bone scan of the right foot, as described above. Multifocal moderate ra diotracer uptake within the right foot on the delayed phase images. The findings favor multifocal ost eomyelitis, involving the right third and fourth metatarsals and the remaining portion of the right f ifth metatarsal. ACT 112: Negative or not required by law. Electronically signed by: Manolo Shelton M.D. 05/12/2022 12:42 PM
--- NOTE | 2022-05-12 14:33 | Hospitalist Progress Note ---
Date of Service May 12, 2022 Assessment & Plan (1) Sepsis: Plan: Patient presented to [facility] with lactic acidosis of 2.9, fever of 38.9. Was found to be bacteremic Was sent to [facility] for escalation of care Patient started on vancomycin and Zosyn Most likely source is right foot infection. Imaging suggestive of right metatarsal osteomyelitis. Podiatry on board, ordered bone scan as MRI cannot be done due to pacemaker Blood culture now shows group B streptococcus agalactiae. Wound culture also growing same organism Infectious disease consulted. Patient is currently on ceftriaxone Blood culture from 05/09 so far negative TTE did not show any vegetation Hemodynamically stable Lactic acidosis resolved No leukocytosis (2) Bacteremia due to group B Streptococcus: Plan: Plan per above (3) Acute osteomyelitis of right foot: Plan: Most likely source of sepsis and bacteremia Podiatry and infectious disease on board Bone scan showed above findings. Patient will be taken to the OR tomorrow by podiatry Likely discharge early next week We will likely need IV antibiotics upon discharge (4) Acute metabolic encephalopathy: Plan: Likely secondary to sepsis Resolved Patient states that he was very lethargic and does not remember anything from the day prior to admission. His mind is now clear and now he is able to hold a conversation. (5) CAD (coronary artery disease): Plan: s/p PCI to RCA in 2017. Cath July 2019 w/ patent stent. Follows with Dr Calvillo at [facility] Repeat cardiac cath Mar 2021 for eval showed RCA in-stent restenosis and severe disease involving small, chronically occluded OM3. No intervention performed and medical therapy recommended. No improvement w/ imdur and was to f/u primary cardiology for further med therapy management Not on BB hx orthostatic hypotension/syncope, does not appear to be on EVANGELINA/ARB, presumably due to his ESRD on HD Trop at [facility] 141--> 106. Down to 86 on arrival to [facility] Continue ASA, statin EKG for eval, pacemaker interogation EKG w/ CP Monitor on telemetry (6) Carotid artery stenosis: Plan: - Known, <50% bilaterally - Continue ASA (7) Chronic systolic heart failure: Plan: Repeat echo 05/09 showed an EF of 35 to 40% with severe hypokinesis to akinesis of the mid inferolateral wall along with severe LVH. Compared to prior echo in 11/22 at [facility], LV and RV systolic function are similar. Not on beta-alesia due to orthostatic hypotension/syncope Not on EVANGELINA/ARB possibly secondary to the same reason Continue outpatient follow-up with elementary school director at [facility] Appears to be euvolemic and compensated at this time (8) Chronic diastolic heart failure: Plan: Hx grade 3 diastolic HF. On baseline 4L recently, did have COVID last month. 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 Is chronically anemic though of note. 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 No fevers or chills. No chest pain or shortness of breath. He said that his right side of chest had hit on the metal rails of the commode at the outside hospital and now it is hurting a little bit. He wants to make sure he did not fracture his ribs Review of Systems Review of Systems: All systems reviewed & are unremarkable except as noted in Subjective Physical Exam Physical Exam: General: Awake, conversant, looks older than his stated age Heart: S1, S2/regular rate and rhythm, no murmur rubs or gallops Lungs: Clear to auscultation bilaterally. Normal effort Abdomen: Soft/nontender/nondistended. No hepatosplenomegaly Extremities: No clubbing/cyanosis. No edema. Right foot dressing on Behavior: Appropriate, cooperative Results & Data Results & Data Vital Signs (Past 12 Hours) Vital Signs Temp Pulse Pulse Pulse Resp BP BP 05/12/22 14:00 70 126/70 05/12/22 13:30 70 107/60 05/12/22 13:07 70 101/64 05/12/22 12:59 36.4 C L 70 05/12/22 08:00 05/12/22 07:26 36.8 C 73 18 134/87 05/12/22 03:08 36.5 C 72 18 123/75 Pulse Ox O2 Del Method O2 Flow Rate 05/12/22 14:00 05/12/22 13:30 05/12/22 13:07 05/12/22 12:59 05/12/22 08:00 Nasal Cannula 4 05/12/22 07:26 98 Nasal Cannula 05/12/22 03:08 92 Nasal Cannula Laboratory Results Abnormal lab results 05/11/22 05/12/22 05/12/22 Range/Units 20:47 03:06 05:55 RBC 2.99 L (4.70-6.10) M/uL Hgb 8.5 L (14.0-18.0) g/dl Hct 27.1 L (42.0-52.0) % MCHC 31.4 L (32.0-36.0) g/dL RDW Std Deviation 61.1 H (36.4-46.3) fL RDW Coeff of Octavio 18.6 H (11.5-14.5) % Sodium (136-145) mmol/L Chloride (98-107) mmol/L Anion Gap (3-11) BUN (6-23) mg/dl Creatinine (0.6-1.4) mg/dl BUN/Creatinine Ratio (10-20) Glucose (70-99(Fasting)) mg/dl POC Glucose 128 H 103 H (70-99) mg/dl Calcium (8.5-10.1) mg/dl 05/12/22 05/12/22 05/12/22 Range/Units 05:55 07:03 11:27 RBC (4.70-6.10) M/uL Hgb (14.0-18.0) g/dl Hct (42.0-52.0) % MCHC (32.0-36.0) g/dL RDW Std Deviation (36.4-46.3) fL RDW Coeff of Octavio (11.5-14.5) % Sodium 132 L (136-145) mmol/L Chloride 94 L (98-107) mmol/L Anion Gap 13 H (3-11) BUN 32 H (6-23) mg/dl Creatinine 6.27 H* (0.6-1.4) mg/dl BUN/Creatinine Ratio 5.1 L (10-20) Glucose 137 H (70-99(Fasting)) mg/dl POC Glucose 143 H 236 H (70-99) mg/dl Calcium 7.7 L (8.5-10.1) mg/dl Diagnostic Findings Bone Scan Nuclear Medicine 05/12/22 07:30 THREE-PHASE BONE SCAN OF THE FEET CLINICAL HISTORY: r/o osteomyelitis right foot. Please do b/l LE COMPARISON STUDY: CT of the right foot May 09, 2022 and right foot radiographs May 10, 2022. TECHNIQUE: 26 mCi of technetium 99m MDP was injected IV at 7:45 AM on May 12, 2022. Immediately following injection, flow images of the ankles and feet were obtained in the anterior and posterior projections. Blood pool imaging was then performed followed by 3 hour delayed phase imaging of the lower extremities in multiple projections. FINDINGS: There is abnormal increased radiotracer uptake on all 3 phases within the right foot. Amputation of the right second and fifth digits is better depicted on radiographs. Delayed phase images demonstrate moderate multifocal uptake within the right foot. This includes uptake within the remaining portion of the right fifth metatarsal and the right third and fourth metatarsals as well. There is also mild asymmetric uptake within the right calcaneus, a nonspecific finding. There is slight increase uptake within the remaining portion of the right second metatarsal. No abnormal uptake within the left foot is present. No additional foci suspicious for osteomyelitis are present. IMPRESSION: Abnormal 3 phase bone scan of the right foot, as described above. Multifocal moderate radiotracer uptake within the right foot on the delayed phase images. The findings favor multifocal osteomyelitis, involving the right third and fourth metatarsals and the remaining portion of the right fifth metatarsal. ACT 112: Negative or not required by law. Electronically signed by: Manolo Shelton M.D. 05/12/2022 12:42 PM PG Care Time/CCT Total # of Minutes Spent Total Time Spent with Patient: Total time spent is greater than 50% in coordination of care (as documented) at patient's floor/unit and/or counseling patient: Coding Level of Care Code 36117 SUB INP/OBS CARE 2/35MIN Diagnoses Sepsis A41.9 Bacteremia due to group B Streptococcus R78.81; B95.1 Acute osteomyelitis of right foot M86.171 Acute metabolic encephalopathy G93.41 CAD (coronary artery disease) I25.10 Coronary Disease-Associated Artery/Lesion type: [place] artery [place] vs. transplanted heart: [place] heart Associated angina: without angina Carotid artery stenosis I65.29 Chronic systolic heart failure I50.22 Chronic diastolic heart failure I50.32 Chronic respiratory failure with hypoxia, on home O2 therapy J96.11; Z99.81 Diabetes mellitus type 2, uncontrolled E11.65 Glycemic state: with hyperglycemia Diabetic infection of right foot E11.628; L08.9 End-stage renal disease on hemodialysis N18.6; Z99.2 GERD (gastroesophageal reflux disease) K21.9 Hyperlipidemia E78.5 Hypertension I10 Obstructive sleep apnea G47.33 PAF (paroxysmal atrial fibrillation) I48.0 Presence of arteriovenous fistula for hemodialysis Z99.2 S/P cardiac pacemaker procedure Z95.0 (5) CAD (coronary artery disease) Coronary Disease-Associated Artery/Lesion type: [place] artery [place] vs. transplanted heart: [place] heart Associated angina: without angina Qualified Code(s): I25.10 - Atherosclerotic heart disease of [place] coronary artery without angina pectoris (10) Diabetes mellitus type 2, uncontrolled Glycemic state: with hyperglycemia Qualified Code(s): E11.65 - Type 2 diabetes mellitus with hyperglycemia
--- NOTE | 2022-05-12 17:59 | XRay Report ---
XR ribs RT min 2V CLINICAL HISTORY: Rule out rib fracture. Right-sided rib pain. COMPARISON STUDY: Chest 05/09/2022. Chest CT outside hospital 05/08/2022. FINDINGS: There is a right-sided pacemaker. The heart remains enlarged. There is mild central pulmona ry vascular congestion without overt edema. No right-sided pneumothorax. No acute right-sided rib fra ctures. IMPRESSION: 1. No acute right-sided rib fractures. 2. No right-sided pneumothorax. ACT 112: Negative or not required by law. Electronically signed by: Erwin Mitchell M.D. 05/12/2022 5:57 PM
--- NOTE | 2022-05-12 18:10 | Infectious Disease Progress Nt ---
Date of Service May 12, 2022 Assessment & Plan (1) Sepsis: Plan: #Strep bacteremia #R foot osteomyelitis, superficial wound cx Group B strep and MSSA # ESRD on HD #PPM 51 yo M with h/o ESRD on HD via LaVF with recent malfunction, CAD s/p stent placement, Afib s/p AV sera ablation and BiV PPM 01/17, Poor candidate for longer AC, DM, PPVD s/p R 2nd toe amputation 12/29/21, R foot 2-5 metatarsal resection 01/27/22 with multiple excisional debridements since, recent COVID infection, home oxygen 4L d/t restrictive lung disease admitted to [facility] with sepsis on 05/09/22. ID consulted for streptococcal bacteremia. 04/12/22-04/13/22 at due to SOB secondary to COVID and discharged to home with 5 days Dexamethasone and has been struggling with shortness of breath since per most recent PCP notes. On day [employer] patient couldnt complete dialysis due to hypotension and fevers. He was sent back by Home Health to [place] [facility] for evaluation. Blood cultures taken there are apparently growing Streptococcus (records are being faxed) he was TF to [facility]. 2DE negative MICRO 05/09 Blood cultures NGTD 05/09 superficial wound cx Group B BHS and MSSA Bone scan: Abnormal 3 phase bone scan of the right foot, as described above. Multifocal moderate radiotracer uptake within the right foot on the delayed phase images. The findings favor multifocal osteomyelitis, involving the right third and fourth metatarsals and the remaining portion of the right fifth metatarsal. (2) Dialysis AV fistula malfunction: (3) S/P cardiac pacemaker procedure: (4) Acute osteomyelitis of right foot: (5) Diabetic infection of right foot: Plan -Narrowed to Ceftriaxone, now given growth of MSSA will change to Cefazolin 1G IV daily (HD dosing) as d/w pharmacy -Await Blood cx clearance--> records are being emailed to me from our pharmacy -R foot debridement/further resection likely given bone scan results -Duration of treatment P surgical debridement ID will follow with you, page OTW with questions. Dr. Gordon to start service on Sunday. Cathy Gutierrez MD Admission and Anticipated Discharge Date Admission Date: May 09, 2022 Subjective This patient recommendation is based on a telemedicine consult request which was completed asynchronously through chart review and information provided by the primary physician. The patient was not seen or examined today. The evaluation is consultative in nature and all patient care and treatment decisions can either be accepted or rejected by the patient's primary hospital-based treating physician using their own independent medical judgment for their patient. Time Spent Reviewing Chart: 31+ minutes 24 hours: Wound cx are growing MSSA and streptococcus Bone scan of foot shows osteomyelitis Results & Data Vital Signs (Past 12 Hours) Vital Signs Temp Pulse Pulse Pulse Resp BP BP 05/12/22 17:10 36.5 C 70 117/69 05/12/22 17:00 70 99/66 L 05/12/22 16:30 75 108/79 05/12/22 16:00 70 107/57 L 05/12/22 15:30 71 114/72 05/12/22 15:00 71 122/69 05/12/22 14:30 71 125/73 05/12/22 14:00 70 126/70 05/12/22 13:30 70 107/60 05/12/22 13:07 70 101/64 05/12/22 12:59 36.4 C L 70 05/12/22 08:00 05/12/22 07:26 36.8 C 73 18 134/87 Pulse Ox O2 Del Method O2 Flow Rate 05/12/22 17:10 05/12/22 17:00 05/12/22 16:30 05/12/22 16:00 05/12/22 15:30 05/12/22 15:00 05/12/22 14:30 05/12/22 14:00 05/12/22 13:30 05/12/22 13:07 05/12/22 12:59 05/12/22 08:00 Nasal Cannula 4 05/12/22 07:26 98 Nasal Cannula Laboratory Results Laboratory Results - last 48 hr 05/10/22 05/10/22 05/10/22 20:34 22:09 23:15 WBC RBC Hgb Hct MCV MCH MCHC RDW Std Deviation RDW Coeff of Octavio Plt Count MPV Absolute Nucleated RBC Nucleated RBC % (auto) Sodium Potassium Chloride Carbon Dioxide Anion Gap BUN Creatinine Est Cr Clr Drug Dosing Est GFR ( Amer) Est GFR (Non-Af Amer) BUN/Creatinine Ratio Glucose POC Glucose 82 93 86 Calcium Random Vancomycin 05/11/22 05/11/2205/11/23 00:37 07:20 09:45 WBC 7.37 RBC 2.74 L Hgb 7.8 L Hct 25.2 L MCV 92.0 MCH 28.5 MCHC 31.0 L RDW Std Deviation 61.6 H RDW Coeff of Octavio 18.6 H Plt Count 188 MPV 10.5 Absolute Nucleated RBC 0.03 Nucleated RBC % (auto) 0.4 Sodium Potassium Chloride Carbon Dioxide Anion Gap BUN Creatinine Est Cr Clr Drug Dosing Est GFR ( Amer) Est GFR (Non-Af Amer) BUN/Creatinine Ratio Glucose POC Glucose 99 193 H Calcium Random Vancomycin 05/11/22 05/11/22 05/11/22 11:31 13:43 14:25 WBC RBC Hgb Hct MCV MCH MCHC RDW Std Deviation RDW Coeff of Octavio Plt Count MPV Absolute Nucleated RBC Nucleated RBC % (auto) Sodium Potassium Chloride Carbon Dioxide Anion Gap BUN Creatinine Est Cr Clr Drug Dosing Est GFR ( Amer) Est GFR (Non-Af Amer) BUN/Creatinine Ratio Glucose POC Glucose 123 H 99 90 Calcium Random Vancomycin 05/11/22 05/11/22 05/12/22 16:24 20:47 03:06 WBC RBC Hgb Hct MCV MCH MCHC RDW Std Deviation RDW Coeff of Octavio Plt Count MPV Absolute Nucleated RBC Nucleated RBC % (auto) Sodium Potassium Chloride Carbon Dioxide Anion Gap BUN Creatinine Est Cr Clr Drug Dosing Est GFR ( Amer) Est GFR (Non-Af Amer) BUN/Creatinine Ratio Glucose POC Glucose 91 128 H 103 H Calcium Random Vancomycin 05/12/22 05/12/22 05/12/22 05:55 05:55 05:55 WBC 8.12 RBC 2.99 L Hgb 8.5 L Hct 27.1 L MCV 90.6 MCH 28.4 MCHC 31.4 L RDW Std Deviation 61.1 H RDW Coeff of Octavio 18.6 H Plt Count 203 MPV 10.5 Absolute Nucleated RBC 0.09 Nucleated RBC % (auto) 1.1 Sodium 132 L Potassium 3.9 Chloride 94 L Carbon Dioxide 25 Anion Gap 13 H BUN 32 H Creatinine 6.27 H* Est Cr Clr Drug Dosing 16.1 Est GFR ( Amer) 10.8 Est GFR (Non-Af Amer) 9.3 BUN/Creatinine Ratio 5.1 L Glucose 137 H POC Glucose Calcium 7.7 L Random Vancomycin 11.9 05/12/22 05/12/22 07:03 11:27 WBC RBC Hgb Hct MCV MCH MCHC RDW Std Deviation RDW Coeff of Octavio Plt Count MPV Absolute Nucleated RBC Nucleated RBC % (auto) Sodium Potassium Chloride Carbon Dioxide Anion Gap BUN Creatinine Est Cr Clr Drug Dosing Est GFR ( Amer) Est GFR (Non-Af Amer) BUN/Creatinine Ratio Glucose POC Glucose 143 H 236 H Calcium Random Vancomycin Microbiology 05/09/22 11:50 Foot,Right Gram Stain - Final 05/09/22 11:50 Foot,Right Wound Culture - Final Group B Beta Strep Staphylococcus aureus 05/09/22 09:23 Blood Aerobic Blood Culture - Preliminary No growth in Aerobic bottle after 48 hours. 05/09/22 09:23 Blood Anaerobic Blood Culture - Preliminary No growth in Anaerobic bottle after 48 hours. 05/09/22 09:37 Blood Aerobic Blood Culture - Preliminary No growth in Aerobic bottle after 48 hours. 05/09/22 09:37 Blood Anaerobic Blood Culture - Preliminary No growth in Anaerobic bottle after 48 hours.
[2022-05-12] MEDS: ceFAZolin 1000MG 1,000 MG/7.5 ML SYR IV SCH (18:37)
[2022-05-12] MEDS: ATORVASTATIN 40 MG TAB PO SCH (19:34)
[2022-05-12] MEDS: MONTELUKAST SODIUM 10 MG TABLET PO SCH (19:34)
--- NOTE | 2022-05-12 21:18 | Orthopedic Progress Note ---
Date of Service May 12, 2022 Assessment & Plan (1) Diabetic infection of right foot: Plan: Patient seen, evaluated, and treated. 3 phase Bone + for OM. I did discuss wound debridement and resection of OM bone first thing in am 05/13/22. I reviewed procedure in detail as well as postoperative recovery. I discussed expectations and patient's current weightbearing status. All questions answered. I have discussed procedure in detail as well as postoperative rec overy. All potential risks, benefits, complications, alternatives, rehab, potential for incomplete relief of symptoms, need for further surgery, DVT, PE, , persistent pain, swelling, scarring, weakness, neurovascular, wound complications and potential for amputations were discussed with patient. Unwanted outcomes such as, but not limited to were reviewed including under correction, overcorrection, return of deformity, infection. All questions were answered. Patient has decided to proceed with procedure as indicated. (2) Acute osteomyelitis of right foot: Admission and Anticipated Discharge Date Admission Date: May 09, 2022 Subjective Patient seen at bedside in no acute distress. Patient has no complaints. Patient Review of Systems Review of Systems: All systems reviewed & are unremarkable except as noted in Subjective Physical Exam Constitutional: cooperative and comfortable Respiratory: normal respiratory effort Cardiovascular: Rate/Rhythm: regular rate and regular rhythm Musculoskeletal: fifth ray resection left foot Skin: Focused Exam: Wound location:Right lateral foot Wound base color and depth:Full thickness wound probes to bone. Wound size (cm):Roughly 1.2x 1.2 x 0.1cm and 1.5x 1.5 x 0.2cm Odor:mild malodorous Drainage:None Undermining:None Borders:Fibrous Psychiatric: Orientation: alert and oriented x 3 Results & Data Vital Signs (Past 12 Hours) Vital Signs Temp Pulse Pulse Resp BP BP Pulse Ox 05/12/22 19:00 36.4 C L 71 24 116/76 93 05/12/22 17:10 36.5 C 70 117/69 05/12/22 17:00 70 99/66 L 05/12/22 16:30 75 108/79 05/12/22 16:00 70 107/57 L 05/12/22 15:30 71 114/72 05/12/22 15:00 71 122/69 05/12/22 14:30 71 125/73 05/12/22 14:00 70 126/70 05/12/22 13:30 70 107/60 05/12/22 13:07 70 101/64 05/12/22 12:59 36.4 C L 70 O2 Del Method O2 Flow Rate 05/12/22 19:00 Nasal Cannula 4 05/12/22 17:10 05/12/22 17:00 05/12/22 16:30 05/12/22 16:00 05/12/22 15:30 05/12/22 15:00 05/12/22 14:30 05/12/22 14:00 05/12/22 13:30 05/12/22 13:07 05/12/22 12:59 Diagnostic Findings THREE-PHASE BONE SCAN OF THE FEET CLINICAL HISTORY: r/o osteomyelitis right foot. Please do b/l LE COMPARISON STUDY: CT of the right foot May 09, 2022 and right foot radiographs May 10, 2022. TECHNIQUE: 26 mCi of technetium 99m MDP was injected IV at 7:45 AM on May 12, 2022. Immediately following injection, flow images of the ankles and feet were obtained in the anterior and posterior projections. Blood pool imaging was then performed followed by 3 hour delayed phase imaging of the lower extremities in multiple projections. FINDINGS: There is abnormal increased radiotracer uptake on all 3 phases within the right foot. Amputation of the right second and fifth digits is better depicted on radiographs. Delayed phase images demonstrate moderate multifocal uptake within the right foot. This includes uptake within the remaining portion of the right fifth metatarsal and the right third and fourth metatarsals as well. There is also mild asymmetric uptake within the right calcaneus, a nonspecific finding. There is slight increase uptake within the remaining portion of the right second metatarsal. No abnormal uptake within the left foot is present. No additional foci suspicious for osteomyelitis are present. IMPRESSION: Abnormal 3 phase bone scan of the right foot, as described above. Multifocal moderate radiotracer uptake within the right foot on the delayed phase images. The findings favor multifocal osteomyelitis, involving the right third and fourth metatarsals and the remaining portion of the right fifth metatarsal. ACT 112: Negative or not required by law. Electronically signed by: Manolo Shelton M.D. 05/12/2022 12:42 PM Dictated:05/12/22 1227 Transcribed: 05/12/22 1228
[2022-05-13 00:14] LABS: Adenovirus F 40/41 PCR Not Detected (NotDetected); Astrovirus PCR Not Detected (NotDetected); Campylobacter PCR Not Detected (NotDetected); Cryptosporidium PCR Not Detected (NotDetected); Cyclospora cayetanensis PCR Not Detected (NotDetected); Entamoeba histolytica PCR Not Detected (NotDetected); Enteroaggregative E.coli(EAEC) Not Detected (NotDetected); Enteropathogenic E.coli (EPEC) Not Detected (NotDetected); Enterotoxigenic E.coli (ETEC) Not Detected (NotDetected); Giardia lamblia PCR Not Detected (NotDetected); Norovirus GI/GII PCR Not Detected (NotDetected); Plesiomonas shigelloides PCR Not Detected (NotDetected); Rotavirus A PCR Not Detected (NotDetected); Salmonella PCR Not Detected (NotDetected); Sapovirus PCR Not Detected (NotDetected); Shiga-like Toxin E.coli (STEC) Not Detected (NotDetected); Shigella/Enteroinvasive E.coli Not Detected (NotDetected); Vibrio cholerae PCR Not Detected (NotDetected); Vibrio species PCR Not Detected (NotDetected); Yersinia enterocolitica PCR Not Detected (NotDetected)
[2022-05-13] MEDS: ACETAMINOPHEN 325 MG TAB PO PRN ×2 (06:51→21:28)
[2022-05-13 06:52] LABS: Hematocrit (blood only) 23.2 % (42.0-52.0); Mean Corpuscular Hemoglobin 28.5 pg (25.0-34.0); Mean Corpuscular Hgb Conc 30.2 g/dL (32.0-36.0); Mean Corpuscular Volume 94.3 fL (80.0-100.0); Mean Platelet Volume 11.3 fL (9.4-12.4); Nucleated RBC # (auto) 0.09 K/uL (0-0.12); Platelet Count 200 K/uL (130-400); RDW Coefficient of Variation 19.3 % (11.5-14.5); RDW Standard Deviation 63.8 fL (36.4-46.3); Red Blood Count 2.46 M/uL (4.70-6.10); White Blood Count 8.58 K/ul (4.8-10.8)
[2022-05-13 07:15] LABS: BUN Creatinine Ratio 5.4 (10-20); Calcium 6.9 mg/dl (8.5-10.1); Creatinine Clr Calc Pharmacy 25.7 ml/min; Est GFR (African American) 19.1 ml/min; Est GFR (Non-African American) 16.5 ml/min; Potassium 3.7 mmol/L (3.5-5.1)
[2022-05-13] MEDS ORDERED: MIDAZOLAM HCL 1 MG/ML 2ML VIAL ONE (07:49)
[2022-05-13] MEDS ORDERED: PROPOFOL IV EMULSION 10 MG/ML 20 ML VIAL IV ONE (07:49)
[2022-05-13] MEDS ORDERED: fentaNYL citrate PF 100 MCG/2 ML VIAL ONE (07:49)
[2022-05-13] MEDS ORDERED: LIDOCAINE 2% MPF LOCAL 5 ML VIAL INFIL ONE (07:51)
--- NOTE | 2022-05-13 07:52 | Anesthesiology Consultation ---
Date of Service May 13, 2022 Assessment & Plan Chart Review Chart Review: Acceptable Risk for Surgery Consults Requested none History Surgery Operation Date: 05/13/22 07:30 Proposed Procedures p Right Foot Wound Debridement - Edilson Rust DPM, MS s Excision of Bone - Edilson Rust DPM, MS Height/Weight Height: 5 ft 7 in Weight: 108.4 kg Allergies Allergy/AdvReac Type Severity Reaction Status Date / Time codeine Allergy Mild DELIRIUM,ME Verified 05/01/22 16:02 AN tramadol Allergy Mild nausea and Verified 05/01/22 16:02 vomiting Medications Home Medications Medication Instructions Recorded Confirmed Last Taken aspirin 81 mg chewable tablet 81 mg PO QAM 05/06/18 05/01/22 04/04/22 04:30 blood sugar diagnostic #50 ea 12/07/20 05/01/22 Unknown miscellaneous medical supply 1 ea miscellaneous DAILY #1 ea 03/08/21 05/01/22 Unknown pen needle, diabetic 31 gauge x #100 ea 03/11/21 05/01/22 Unknown 316" (Easy Comfort Pen [place]) acetaminophen 500 mg capsule 1,000 mg PO TID PRN Pain #180 caps 11/21/21 05/01/22 04/01/22 montelukast 10 mg tablet 10 mg PO HS 01/25/22 05/01/22 04/03/22 18:00 amlodipine 10 mg tablet 10 mg PO DAILY #90 tabs 02/22/22 05/01/22 04/04/22 04:30 insulin glargine U-300 conc 300 33 unit (0.11 mL) subcut QAM #4.5 02/22/22 05/01/22 04/03/22 04:30 unit/mL (1.5 mL) subcutaneous pen mL (Toujeo SoloStar U-300 Insulin) povidone-iodine 5 % topical spray 1 spray topical .COMPLEX #88.7 mL 02/22/22 05/01/22 Unknown (Betadine) ondansetron HCl 4 mg tablet 4 mg PO Q8H PRN nausea and 03/08/22 05/01/22 04/03/22 04:30 vomiting #30 tabs cholecalciferol (vitamin D3) 125 125 mcg PO DAILY 03/16/22 05/01/22 04/04/22 04:30 mcg (5,000 unit) capsule amiodarone 200 mg tablet 200 mg PO QAM #90 tabs 03/21/22 05/01/22 04/04/22 04:30 apixaban 5 mg tablet (Eliquis) 5 mg PO BID #180 tabs 03/21/22 05/01/22 04/04/22 04:30 atorvastatin 40 mg tablet 40 mg PO HS #90 tabs 03/21/22 05/01/22 04/03/22 18:00 Hospital Bed Homecare #1 ea 03/24/22 05/01/22 Unknown fluticasone furoate 100 1 inh inhalation DAILY 04/04/22 05/01/22 04/04/22 04:30 mcg-vilanterol 25 mcg/dose inhalation powder (Breo Ellipta) hydrochlorothiazide 25 mg tablet 25 mg PO BID 04/04/22 05/01/22 04/04/22 04:30 omeprazole 20 mg tablet,delayed 20 mg PO DAILY 04/04/22 05/01/22 04/04/22 04:30 release betamethasone valerate 0.1 % 1 applic topical BID PRN skin 05/01/22 05/01/22 Unknown topical cream irritation #15 grams flash glucose sensor (FreeStyle 05/01/22 05/01/22 Unknown Eric 14 Day Sensor kit) albuterol sulfate 90 mcg/actuation 2 puff inhalation Q6H PRN 05/02/22 05/02/22 Unknown aerosol inhaler shortness of breath or wheezing #18 grams Active Medications Generic Name Dose Route Start Last Admin Trade Name Freq PRN Reason Stop Dose Admin Acetaminophen 650 mg 05/09/22 09:05 05/13/22 06:51 Acetaminophen 325 Mg Tab PO 06/08/22 09:04 650 mg Q4H PRN Administration Pain or Fever Amiodarone HCl 200 mg 05/09/22 09:30 05/12/22 09:05 Amiodarone 200 Mg Tab PO 06/08/22 09:29 200 mg QAM VICKY Administration Apixaban 5 mg 05/09/22 09:15 05/12/22 19:34 Apixaban 5 Mg Tablet PO 06/08/22 09:14 5 mg BID VICKY Administration Aspirin 81 mg 05/09/22 09:30 05/12/22 09:07 Aspirin 81 Mg Chew PO 06/08/22 09:29 81 mg QAM VICKY Administration Atorvastatin Calcium 40 mg 05/09/22 21:00 05/12/22 19:34 Atorvastatin 40 Mg Tab PO 06/08/22 20:59 40 mg HS VICKY Administration Fluticasone/Vilanterol 1 puffs 05/09/22 09:15 05/12/22 09:05 Fluticasone/Vilanterol 100/25mcg 14 Puffs/Inhaler INH 06/08/22 09:14 1 puffs DAILY VICKY Administration Cefazolin Sodium 1,000 mg in 7.5 mls @ 2.5 mls/min 05/12/22 18:00 05/12/22 18:37 Ancef 1000mg IV 05/26/22 17:59 2.5 mls/min Q24H VICKY Administration Insulin Aspart 0 units 05/09/22 11:30 05/12/22 19:35 Insulin Aspart Per Unit SC 06/08/22 11:29 Not Given ACHS VICKY Protocol Montelukast Sodium 10 mg 05/09/22 21:00 05/12/22 19:34 Montelukast Sodium 10 Mg Tablet PO 06/08/22 20:59 10 mg HS VICKY Administration Pantoprazole Sodium 40 mg 05/09/22 10:15 05/12/22 09:06 Pantoprazole 40 Mg Tab PO 06/08/22 10:14 40 mg QAM VICKY Administration Vitamin D 5,000 units 05/10/22 09:00 05/12/22 09:05 Cholecalciferol 5,000 Units 125 Mcg Tab PO 06/09/22 08:59 5,000 units DAILY VICKY Administration NPO Date Last Intake of Fluids: 05/12/22 Time Last Intake of Fluids: 23:30 Date Last Intake of Solids: 05/12/22 Time Last Intake of Solids: 19:30 Past Medical History Medical History Acute on chronic diastolic CHF (congestive heart failure) Anemia of chronic disease Arthritis CAD (coronary artery disease) 08/2015- L Cx stent; 11/2017- RCA stent, L Cx stent patent; 07/2019- LM wnl, prox-mid LAD 30%, mid-L Cx stent patent, RCA stent stent with area between stents 30-40%. Sees [facility], Dr Sharad Norton. 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) Repaired s/p PPV, MP, EL (SNT) Dialysis AV fistula malfunction Diverticular disease Elevated troponin End-stage renal disease on hemodialysis ESRD (end stage renal disease) on dialysis dialysis sun-sun-sun is getting dialysis sat prior to colonoscopy 09/29/2019 and will have it again after on sunday09/30/2019 History of COVID-19 (12/2020) Hyperkalemia Hyperlipidemia Hypertension Moderate pulmonary hypertension Nuclear sclerosis of both eyes Obstructive sleep apnea cpap on 4L N/C On home oxygen therapy 4L N/C at all times Osteoarthritis, hip, bilateral Pleural effusion, bilateral 11/2018 Pneumonia Presence of arteriovenous fistula for hemodialysis left forearm Secondary pulmonary hypertension Status post placement of implantable loop recorder (07/07/21) Vitreous hemorrhage of right eye due to diabetes mellitus (12/04/18) Past Family History Family History Mother Diabetes Coronary heart disease Heart disease Hypertension Stroke Father Diabetes Coronary heart disease Heart disease Myocardial infarction Hypertension Stroke Other Kidney disease No family history of adverse response to anesthesia Denies family history of Ovarian cancer Prostate cancer Breast cancer Lung cancer Colorectal cancer Past Surgical History Surgical History History of cardiac cath X 2 - 11/2017 - [facility] - SOB - 1 stent placed - follows w/ Dr. Zuniga - 2015 - [facility] - SOB - 1 stent placed History of colonoscopy History of foot surgery left x 4 History of heart artery stent X2 History of placement of chest tube left lung for pleural effusion 11/2018 History of tooth extraction all teeth S/P arteriovenous (AV) fistula creation 04/2016 Dr. Mena placed S/P AV sera ablation (01/18/22) S/P bilateral cataract extraction (05/2021) S/P cardiac catheterization Dr. Sharad Calvillo at [facility]- 01/09/22 Status post amputation of toe (12/29/21) R 2nd toe d/t infection Status post amputation of toe of right foot (01/27/22) metatarsal resection R toe 2-5 d/t osteomyelitis/gangrene Social History Smoking Status: Never smoker tobacco type: cigars Do You Dip or Chew Tobacco: No Hx Alcohol Use: No Hx Substance Use: No substance use type: does not use Physical Exam Vital Signs Last Vital Signs Temp 36.4 C L 05/13/22 03:00 Pulse 70 05/13/22 03:00 Resp 26 H 05/13/22 03:00 BP 104/62 05/13/22 03:00 Pulse Ox 94 05/13/22 03:00 O2 Del Method Nasal Cannula 05/13/22 03:00 O2 Flow Rate 4 05/13/22 03:00 Testing Laboratory Results 05/13/22 05:44 05/13/22 05:44 PT 13.3 Seconds (9.0-12.0) H 05/10/22 05:34 INR 1.3 (0.9-1.1) H 05/10/22 05:34 05/09/22 11:50 Gram Stain - Final Foot,Right Wound Culture - Final Group B Beta Strep Staphylococcus aureus 05/09/22 09:23 Aerobic Blood Culture - Preliminary Blood No growth in Aerobic bottle after 48 hours. Anaerobic Blood Culture - Preliminary No growth in Anaerobic bottle after 48 hours. 05/09/22 09:37 Aerobic Blood Culture - Preliminary Blood No growth in Aerobic bottle after 48 hours. Anaerobic Blood Culture - Preliminary No growth in Anaerobic bottle after 48 hours.
--- NOTE | 2022-05-13 07:56 | History & Physical Bridge Note ---
Date of Service May 13, 2022 History & Physical Bridge Note I have examined the patient, reviewed the History & Physical and in the interval since the performance of the History & Physical I have noted the following changes of clinical significance: no changes noted
[2022-05-13] MEDS ORDERED: HYDROmorphone INJ 2 MG/ML SYR/VIAL IV PRN (07:57)
[2022-05-13] MEDS ORDERED: PROMETHAZINE HCL 12.5 MG in SODIUM CHLORIDE 0.9% 50 ML IV PRN (07:57)
[2022-05-13] MEDS ORDERED: ATROPINE SULFATE 0.1 MG/ML 10ML SYR IV PRN (07:57)
[2022-05-13] MEDS ORDERED: fentaNYL citrate PF 100 MCG/2 ML VIAL IV PRN (07:57)
[2022-05-13] MEDS ORDERED: ePHEDrine sulfate 50 MG/ML AMP IV PRN (07:57)
[2022-05-13] MEDS ORDERED: ONDANSETRON INJ 2 MG/ML 2 ML VIAL IV PRN (07:57)
[2022-05-13] MEDS ORDERED: ePHEDrine sulfate 50 MG/ML AMP ONE (08:08)
[2022-05-13 08:10] LABS: Hematocrit (blood only) 28.4 % (42.0-52.0); Hemoglobin 8.8 g/dl (14.0-18.0); Mean Corpuscular Hemoglobin 29.1 pg (25.0-34.0); Mean Platelet Volume 10.2 fL (9.4-12.4); Nucleated RBC # (auto) 0.08 K/uL (0-0.12); Nucleated RBC % (auto) 0.9 %; Platelet Count 208 K/uL (130-400); RDW Coefficient of Variation 19.8 % (11.5-14.5); RDW Standard Deviation 63.1 fL (36.4-46.3); Red Blood Count 3.02 M/uL (4.70-6.10); White Blood Count 9.26 K/ul (4.8-10.8)
[2022-05-13] MEDS ORDERED: ONDANSETRON INJ 2 MG/ML 2 ML VIAL ONE (09:07)
--- NOTE | 2022-05-13 09:07 | Nephrology Progress Note ---
Date of Service May 13, 2022 Assessment & Plan (1) End-stage renal disease on hemodialysis: Plan: * Last dialyzed 05/12/22 * Volume status and electrolyte balance are acceptable. No acute indication for HD today * Outpatient HD Rx: MWF 4.25 hours Qb 500 Qd 600, 2K 2.5Ca, 139Na, 40HCO3. EDW 103 kg * Normally dialyzes as outpatient at [facility] under the care of Dr. Mojica (2) Anemia of chronic disease: Plan: * Epogen 37856 units IV provided with HD 05/10/22 * Will order iron studies * Recommend primary service consider 1 unit PRBC (Hgb 7.0) (3) Presence of arteriovenous fistula for hemodialysis: Plan: * s/p angioplasty with PASTE MAKER by Dr. Mena 04/20 * Currently AVF w/ + bruit (4) Hypertension: Plan: * BP is currently well controlled off all BP medications (had been on Amlodipine & HCTZ as outpatient) (5) Sepsis: Plan: * Osteomyelitis R foot. Awaiting surgical report * Group B strep bacteremia (PCN sensitive) - on Cefazolin Admission and Anticipated Discharge Date Admission Date: May 09, 2022 Subjective Mr. Walker was evaluated in his hospital room this morning. He had just returned from the operating room. Mr. Walker was A&O x3. He was in no distress. He voiced no medical concerns. Review of Systems Constitutional: no fever Eyes: no problem reported Ear, Nose, Mouth, Throat: no problem reported Respiratory: no dyspnea Cardiovascular: no chest pain and no palpitations Gastrointestinal: no abdominal pain Physical Exam Constitutional: + overweight; not in distress Eyes: PERRL, conjunctivae normal, anicteric sclerae ENMT: external ear and nose normal, oropharynx normal Neck: trachea midline, no thyromegaly Respiratory: normal respiratory effort, lungs clear to auscultation Cardiovascular: RRR, no murmur, no edema Extremities: + AV fistula (L RC AVF + bruit) Musculoskeletal: R foot with clean, dry surgical dressing in place L foot w/ palpable DP, PT pulses Neurologic: Speech / Cognition: normal speech and normal cognition Results & Data Vital Signs (Past 12 Hours) Vital Signs Temp Pulse Pulse Resp BP Pulse Ox O2 Del Method 05/13/22 03:00 36.4 C L 70 26 H 104/62 94 Nasal Cannula 05/12/22 23:30 Nasal Cannula 05/13/22 00:00 70 05/12/22 23:00 36.4 C L 70 21 108/67 94 Nasal Cannula O2 Flow Rate 05/13/22 03:00 4 05/12/22 23:30 2 05/13/22 00:00 05/12/22 23:00 4 Laboratory Results Laboratory Tests 05/13/22 05/13/22 05:44 05:44 WBC 8.58 Hgb 7.0 L Hct 23.2 L Plt Count 200 Sodium 139 Potassium 3.7 Chloride 106 Carbon Dioxide 24 BUN 21 Creatinine 3.91 H D Glucose 161 H PG Care Time/CCT Total # of Minutes Spent Total Time Spent with Patient: Total time spent is greater than 50% in coordination of care (as documented) at patient's floor/unit and/or counseling patient: Coding Level of Care Code 92583 SUB INP/OBS CARE 3/50MIN Diagnoses End-stage renal disease on hemodialysis N18.6; Z99.2 Anemia of chronic disease D63.8 Presence of arteriovenous fistula for hemodialysis Z99.2 Hypertension I10 Sepsis A41.9
--- NOTE | 2022-05-13 09:37 | Post Operative Brief Note ---
Immediate Post Op Note v1 Date of Surgery May 13, 2022 Pre & Post Diagnosis Operation Date: 05/13/22 07:30 <No data on this case meets the specified criteria> I identified the patient and participated in the time-out.: Yes Procedure Operation Date: 05/13/22 07:30 <No data on this case meets the specified criteria> Surgeon Edilson Rust, JAIME, MS Finance Lecturer none Estimated Blood Loss 20 Findings Consistent with Post-Op Diagnosis
--- NOTE | 2022-05-13 09:40 | Operative Report ---
Post Operative Report Pre & Post Diagnosis Operation Date: 05/13/22 07:30 <No data on this case meets the specified criteria> I identified the patient and participated in the time-out.: Yes Procedure Operation Date: 05/13/22 07:30 <No data on this case meets the specified criteria> Surgeon Edilson Rust, DPM, MS Director Digital none Estimated Blood Loss 20 Findings Consistent with Post-Op Diagnosis non viable bone and soft tissue right foot Specimens 1.) 3rd metatarsal phalangeal joint - Pathology 2.) 4th metatarsal phalangeal joint - Pathology 3.) 5thmetatarsal bone - Pathology 4.) Excsicion of diabetic foot ulcer - Pathology 5.) 4th metatarsal bone - microbiology Drains none Description of Procedure History of present illness: Patient is a type II diabetic, 51 year oldmalewho recently underwent 3 phase bone scan confirming previous x-ray and CT findings noting osteomyelitis of right foot. Patient is seen for operative care including removal of non viable bone and soft tissue to right foot. All questions answered.Discussed procedure in detail and postoperative recovery. All potential risks, benefits, complications, alternatives, rehab, potential for incomplete relief of symptoms, need for further surgery, DVT, PE, , persistent pain, swelling, scarring, weakness, neurovascular, wound c omplications and potential for amputations were discussed with patient. Unwanted outcomes such as, but not limited to were reviewed including under correction, overcorrection, return of deformity, infection. All questions were answered. Patient has decided to proceed with procedure as indicated. Preoperative diagnosis: 1.) Diabetic ulcers with necrotic tissue right foot 2.) Osteomyelitis right third metatarsal 3.) Osteomyelitis right third proximal phalanx 4.) Osteomyelitis fourth metatarsal 5.) Osteomyelitis right third proximal phalanx 6.) Osteomyelitis right fifth metatarsal Postoperative diagnosis: same Name of operation: 1.) Partial excision of third metatarsal Right foot 2.) Partial excision of third proximal phalanx Right third toe 3.) Partial excision of fourth metatarsalRight foot 4.) Partial excision of fourth proximal phalanx Right third toe 5.) Partial excision of fifth metatarsal of Right foot 6.) Excision of Right foot wound Surgeon: Dr. Rust Director Digital: None Anesthesia: Monitored anesthesia care Hemostasis: pneumatic ankle tourniquet Estimated blood loss: minimal Procedure in detail: Under mild sedation the patient was brought in the operating room placed on the operating table in supine position. A pneumatic calf tourniquet was then placed about the patient's right calf. Following IV sedation the foot was prepped scrubbed and draped in usual aseptic manner. An Esmarch bandage was utilized to exsanguinate the patient's right foot and the pneumatic ankle tourniquet was then inflated. At this time attention is directed to the third ray where x-ray, CT, and bone scan showed osteomyelitis of both the third distal metatarsal and third proximal phalanx base. Utilizing a sharp, sterile, #15 blade an incision is placed over the third metatarsal head. The incision was deepened through subcutaneous tissue using sharp blunt dissection. Care was taken to identify and retract all vital neurovascular structures. All bleeders were ligated and cauterized necessary. An oscillating saw was used to remove the third metatarsal head. The osteomyelitic third metatarsal bone was placed on the back table and labeled. The excised right third metatarsal was then placed in formalin and sent to pathology. At this time attention is directed to the third digit where diagnostic imaging showed necrosis of third proximal phalanx. Utilizing a sharp, sterile, #15 blade an incision is placed over the third metatarsal phalangeal joint. The incision deepenedutilizing a deep sharp, sterile, #15 blade. The incision was deepened through subcutaneous tissue using sharp blunt dissection. Care was taken to identify and retract all vital neurovascular structures. All bleeders were ligated and cauterized necessary. An oscillating saw was used to remove the proximal portion of right third proximal phalanx.The third proximal phalanx bone was placed on the back table and labeled. The excised right third phalanx base was then placed in formalin with the right third metatarsal and sent to pathology. At this time attention is directed to the fourth ray where diagnostic imaging showed osteomyelitis of both the fourth distal metatarsal and fourth proximal phalanx base. Utilizing a sharp, sterile, #15 blade an incision is placed over the fourth metatarsal head. The incision was deepened through subcutaneous tissue using sharp blunt dissection. Care was taken to identify and retract all vital neurovascular structures. All bleeders were ligated and cauterized necessary. An oscillating saw was used to remove the fourth metatarsal head. The osteomyelitic fourth metatarsal bone was placed on the back table and labeled. The excised right fourth metatarsal was then placed in formalin. At this time attention is directed to the fourth digit where diagnostic imaging showed necrosis of third proximal phalanx. Utilizing a sharp, sterile, #15 blade an incision is placed over the fourth metatarsal phalangeal joint. The incision deepenedutilizing a deep sharp, sterile, #15 blade. The incision was deepened through subcutaneous tissue using sharp blunt dissection. Care was taken to identify and retract all vital neurovascular structures. All bleeders were ligated and cauterized necessary. An oscillating saw was used to remove the proximal portion of right fourth proximal phalanx.The fourth proximal phalanx bone was placed on the back table and labeled. The excised right fourth phalanx base was then placed in formalin with the right fourth metatarsal and sent to pathology. Attention was then directed to a nonhealing diabetic ulcer on the lateral right foot over the base of the lateral fifth metatarsal base. A diabetic foot ulcer is present with significant necrotic tissue involvement. A lateral incision was created over the necrotic fifth metatarsal base. The wound was excised in toto and discarded. The base of the fifth metatarsal is exposed. Diagnostic imaging has shown signs of osteomyelitis to the fifth metatarsal. At this time the fifth metatarsal is examined and noted to be discolored with signs on necrosis. Utilizing an oscillating bone saw this portion is excised and placed on the back table and labeled. The excised right fifth metatarsal base was then placed in formalin and sent to pathology. Attention was then directed to a nonhealing diabetic ulcer on the lateral right foot over the lateral forefoot. A diabetic foot ulcer is present with significant necrotic tissue involvement. Wound measures roughly 2.1 x 2.2 x 0.4cm An incision was created outlining the wound. The incision was deepened through subcutaneous tissue. Care was taken to identify and retract all vital neurovascular structures. All bleeders were ligated and cauterized necessary. . The wound was then excised in toto and placed on the back table and labeled. The excised right lateral diabetic foot ulcer was then placed in formalin and sent to pathology. 1 L of lactated Ringer was then irrigated with low flow into the wounds. Further nonviable soft tissue was further excised as needed. Upon completion of the procedure the incisions and excisions were closed with 2-0 nylon. The wounds were dressed with compressive dressing consisting of 4 x 4's Cole Kerlix ABD. The pneumatic calf tourniquet was deflated and a prompt hyperemic response was noted to remaining digits of the right foot. The Patient tolerated the procedure and anesthesia well. He was transferred to recovery room vital signs stable and vascular status intact all toes of the right foot following. Following a period of postoperative monitoring the patient will be readmitted to floor with the continuation of all preoperative orders. I attest to the content of the Intraoperative Record and any orders documented therein. Any exceptions are noted below.
--- NOTE | 2022-05-13 09:53 | Anesthesiology Progress Note ---
Date of Service May 13, 2022 Anesthesia Post Procedure Vital Signs Vital Signs: Temp Pulse Pulse Pulse Resp BP BP 05/13/22 09:50 70 18 124/71 05/13/22 09:40 36.0 C L 70 24 98/60 L 05/13/22 03:00 36.4 C L 70 26 H 104/62 05/12/22 23:30 05/13/22 00:00 70 05/12/22 23:00 36.4 C L 70 21 108/67 05/12/22 19:00 36.4 C L 71 24 116/76 05/12/22 17:10 36.5 C 70 117/69 05/12/22 17:00 70 99/66 L 05/12/22 16:30 75 108/79 05/12/22 16:00 70 107/57 L 05/12/22 15:30 71 114/72 05/12/22 15:00 71 122/69 05/12/22 14:30 71 125/73 05/12/22 14:00 70 126/70 05/12/22 13:30 70 107/60 05/12/22 13:07 70 101/64 05/12/22 12:59 36.4 C L 70 Pulse Ox O2 Del Method O2 Flow Rate 05/13/22 09:50 90 Oxymask 10 05/13/22 09:40 92 Oxymask 10 05/13/22 03:00 94 Nasal Cannula 4 05/12/22 23:30 Nasal Cannula 2 05/13/22 00:00 05/12/22 23:00 94 Nasal Cannula 4 05/12/22 19:00 93 Nasal Cannula 4 05/12/22 17:10 05/12/22 17:00 05/12/22 16:30 05/12/22 16:00 05/12/22 15:30 05/12/22 15:00 05/12/22 14:30 05/12/22 14:00 05/12/22 13:30 05/12/22 13:07 05/12/22 12:59 Transfer of Care Handoff Completed per policy Notes Mental Status: alert / awake / arousable and participated in evaluation Patient Amnestic to Procedure: Yes Nausea / Vomiting: adequately controlled Pain: adequately controlled Airway Patency, RR, SpO2: stable & adequate BP & HR: stable & adequate Hydration State: stable & adequate Anesthetic Complications: no major complications apparent
[2022-05-13 10:07] LABS: Iron 50 mcg/dl (35-175); Total Iron Binding Cap Calc 161 mcg/dl (250-450); Transferrin (FE) Percent Satur 31 % (20-50); Unsaturated Iron Binding Cap 111 mcg/dl (155-355)
[2022-05-13] MEDS: INSULIN ASPART PER UNIT CHARGE SC SCH ×4 (10:23→20:45)
[2022-05-13] MEDS: AMIODARONE 200 MG TAB PO SCH (10:37)
[2022-05-13] MEDS: FLUTICASONE/VILANTEROL 100/25MCG 14 PUFFS/INHALER INH SCH (10:37)
[2022-05-13] MEDS: APIXABAN 5 MG TABLET PO SCH ×2 (10:37→21:29)
[2022-05-13] MEDS: CHOLECALCIFEROL 5,000 UNITS 125 MCG TAB PO SCH (10:37)
[2022-05-13] MEDS: PANTOprazole 40 MG TAB PO SCH (10:37)
[2022-05-13] MEDS: ASPIRIN 81 MG CHEW PO SCH (10:39)
[2022-05-13 11:12] LABS: Ferritin > 7500.0 ng/ml (8-388)
--- NOTE | 2022-05-13 13:04 | Hospitalist Progress Note ---
Date of Service May 13, 2022 Assessment & Plan (1) Sepsis: Plan: Patient presented to [facility] with lactic acidosis of 2.9, fever of 38.9. Was found to be bacteremic Was sent to [facility] for escalation of care Patient started on vancomycin and Zosyn Most likely source is right foot infection. Imaging suggestive of right metatarsal osteomyelitis. Podiatry on board, ordered bone scan as MRI cannot be done due to pacemaker Blood culture now shows group B streptococcus agalactiae. Wound culture also growing group be strep agalactiae as well MSSA Infectious disease consulted. Patient is currently on cefazolin Blood culture from 05/09 so far negative TTE did not show any vegetation Hemodynamically stable Lactic acidosis resolved No leukocytosis (2) Bacteremia due to Gram-positive bacteria: Plan: Plan per above (3) Acute osteomyelitis of right foot: Plan: Most likely source of sepsis and bacteremia Podiatry and infectious disease on board Bone scan showed findings suggestive of osteo. Patient had surgical debridement done today. Awaiting official operative note Likely discharge early to mid next week We will likely need IV antibiotics upon discharge (4) Acute metabolic encephalopathy: Plan: Likely secondary to sepsis Resolved Patient states that he was very lethargic and does not remember anything from the day prior to admission. His mind is now clear and now he is able to hold a conversation. (5) CAD (coronary artery disease): Plan: s/p PCI to RCA in 2017. Cath July 2019 w/ patent stent. Follows with Dr Calvillo at [facility] Repeat cardiac cath Mar 2021 for eval showed RCA in-stent restenosis and severe disease involving small, chronically occluded OM3. No intervention performed and medical therapy recommended. No improvement w/ imdur and was to f/u primary cardiology for further med therapy management Not on BB hx orthostatic hypotension/syncope, does not appear to be on EVANGELINA/ARB, presumably due to his ESRD on HD Trop at [facility] 141--> 106. Down to 86 on arrival to [facility]. Most likely secondary to demand ischemia/myocardial injury related to sepsis Continue ASA, statin Monitor on telemetry (6) Carotid artery stenosis: Plan: - Known, <50% bilaterally - Continue ASA (7) Chronic systolic heart failure: Plan: Repeat echo 05/09 showed an EF of 35 to 40% with severe hypokinesis to akinesis of the mid inferolateral wall along with severe LVH. Compared to prior echo in 01/17 at [facility], LV and RV systolic function are similar. Not on beta-alesia due to orthostatic hypotension/syncope Not on EVANGELINA/ARB possibly secondary to the same reason Continue outpatient follow-up with produce team lead at [facility] Appears to be euvolemic and compensated at this time (8) Chronic diastolic heart failure: Plan: Hx grade 3 diastolic HF. On baseline 4L recently, did have COVID last month. 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 Is chronically anemic though of note. 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 Denies chest pain or shortness of breath. He just got back from the OR today. Accompanied by his secret service agent in the room. Review of Systems Review of Systems: All systems reviewed & are unremarkable except as noted in Subjective Physical Exam Physical Exam: General: Awake, conversant, looks older than his stated age Heart: S1, S2/regular rate and rhythm, no murmur rubs or gallops Lungs: Clear to auscultation bilaterally. Normal effort Abdomen: Soft/nontender/nondistended. No hepatosplenomegaly Extremities: No clubbing/cyanosis. No edema. Right foot dressing on Behavior: Appropriate, cooperative Results & Data Results & Data Vital Signs (Past 12 Hours) Vital Signs Temp Pulse Pulse Resp BP Pulse Ox O2 Del Method 05/13/22 12:16 70 24 122/74 91 Nasal Cannula 05/13/22 11:15 71 24 113/66 91 Nasal Cannula 05/13/22 10:45 70 24 111/69 94 Nasal Cannula 05/13/22 10:15 36.8 C 77 22 130/82 94 Nasal Cannula 05/13/22 10:00 36.3 C L 70 18 127/70 92 Oxymask 05/13/22 09:50 70 18 124/71 90 Oxymask 05/13/22 09:40 36.0 C L 70 24 98/60 L 92 Oxymask 05/13/22 03:00 36.4 C L 70 26 H 104/62 94 Nasal Cannula O2 Flow Rate 05/13/22 12:16 4 05/13/22 11:15 4 05/13/22 10:45 4 05/13/22 10:15 4 05/13/22 10:00 7 05/13/22 09:50 10 05/13/22 09:40 10 05/13/22 03:00 4 PG Care Time/CCT Total # of Minutes Spent Total Time Spent with Patient: Total time spent is greater than 50% in coordination of care (as documented) at patient's floor/unit and/or counseling patient: Coding Level of Care Code 44113 SUB INP/OBS CARE 2/35MIN Diagnoses Sepsis A41.9 Bacteremia due to Gram-positive bacteria R78.81 Acute osteomyelitis of right foot M86.171 Acute metabolic encephalopathy G93.41 CAD (coronary artery disease) I25.10 Coronary Disease-Associated Artery/Lesion type: [place] artery [place] vs. transplanted heart: [place] heart Associated angina: without angina Carotid artery stenosis I65.29 Chronic systolic heart failure I50.22 Chronic diastolic heart failure I50.32 Chronic respiratory failure with hypoxia, on home O2 therapy J96.11; Z99.81 Diabetes mellitus type 2, uncontrolled E11.65 Glycemic state: with hyperglycemia Diabetic infection of right foot E11.628; L08.9 End-stage renal disease on hemodialysis N18.6; Z99.2 GERD (gastroesophageal reflux disease) K21.9 Hyperlipidemia E78.5 Hypertension I10 Obstructive sleep apnea G47.33 PAF (paroxysmal atrial fibrillation) I48.0 Presence of arteriovenous fistula for hemodialysis Z99.2 S/P cardiac pacemaker procedure Z95.0 (5) CAD (coronary artery disease) Coronary Disease-Associated Artery/Lesion type: [place] artery [place] vs. transplanted heart: [place] heart Associated angina: without angina Qualified Code(s): I25.10 - Atherosclerotic heart disease of [place] coronary artery without angina pectoris (10) Diabetes mellitus type 2, uncontrolled Glycemic state: with hyperglycemia Qualified Code(s): E11.65 - Type 2 diabetes mellitus with hyperglycemia
[2022-05-13] MEDS: ceFAZolin 1000MG 1,000 MG/7.5 ML SYR IV SCH (18:16)
[2022-05-13] MEDS: MONTELUKAST SODIUM 10 MG TABLET PO SCH (21:29)
[2022-05-13] MEDS: ATORVASTATIN 40 MG TAB PO SCH (21:29)
[2022-05-14 06:56] LABS: Hematocrit (blood only) 22.5 % (42.0-52.0); Hemoglobin 6.9 g/dl (14.0-18.0); Mean Corpuscular Hemoglobin 28.9 pg (25.0-34.0); Mean Corpuscular Hgb Conc 30.7 g/dL (32.0-36.0); Mean Corpuscular Volume 94.1 fL (80.0-100.0); Mean Platelet Volume 10.7 fL (9.4-12.4); Nucleated RBC # (auto) 0.06 K/uL (0-0.12); Nucleated RBC % (auto) 0.6 %; Platelet Count 198 K/uL (130-400); RDW Coefficient of Variation 19.9 % (11.5-14.5); Red Blood Count 2.39 M/uL (4.70-6.10); White Blood Count 9.45 K/ul (4.8-10.8)
[2022-05-14 07:23] LABS: BUN Creatinine Ratio 6.3 (10-20); Calcium 7.2 mg/dl (8.5-10.1); Creatinine Clr Calc Pharmacy 19.2 ml/min; Est GFR (African American) 13.4 ml/min; Est GFR (Non-African American) 11.6 ml/min; Potassium 3.9 mmol/L (3.5-5.1)
[2022-05-14] MEDS: INSULIN ASPART PER UNIT CHARGE SC SCH ×4 (07:51→19:33)
[2022-05-14] MEDS: ACETAMINOPHEN 325 MG TAB PO PRN ×2 (08:11→18:23)
[2022-05-14] MEDS: CHOLECALCIFEROL 5,000 UNITS 125 MCG TAB PO SCH (08:12)
[2022-05-14] MEDS: AMIODARONE 200 MG TAB PO SCH (08:12)
[2022-05-14] MEDS: APIXABAN 5 MG TABLET PO SCH ×2 (08:12→20:35)
[2022-05-14] MEDS: PANTOprazole 40 MG TAB PO SCH (08:12)
[2022-05-14] MEDS: FLUTICASONE/VILANTEROL 100/25MCG 14 PUFFS/INHALER INH SCH (08:12)
[2022-05-14] MEDS: ASPIRIN 81 MG CHEW PO SCH (08:14)
[2022-05-14] MEDS ORDERED: LANTUS PER UNIT CHARGE SQ SCH (09:00)
[2022-05-14] MEDS ORDERED: SODIUM CHLORIDE 0.9% 250 ML IV PRN (09:09)
--- NOTE | 2022-05-14 09:44 | Nephrology Progress Note ---
Date of Service May 14, 2022 Assessment & Plan (1) End-stage renal disease on hemodialysis: Plan: * Volume status and electrolyte balance are acceptable. No acute indication for HD today. Will schedule next HD for 05/15/22 am * Outpatient HD Rx: MWF 4.25 hours Qb 500 Qd 600, 2K 2.5Ca, 139Na, 40HCO3. EDW 103 kg * Normally dialyzes as outpatient at [facility] under the care of Dr. Mojica (2) Anemia of chronic disease: Plan: * Epogen 40203 units IV provided with HD 05/10/22 * Will order iron studies * Recommend primary service consider 1 unit PRBC (Hgb < 7.0) (3) Presence of arteriovenous fistula for hemodialysis: Plan: * s/p angioplasty with SEWAGE SCREEN OPERATOR by Dr. Mena 04/20 * Currently AVF w/ + bruit (4) Hypertension: Plan: * BP is currently well controlled off all BP medications (had been on Amlodipine & HCTZ as outpatient) (5) Sepsis: Plan: * Osteomyelitis R foot s/p partial excision of 3rd, 4th, 5th metatarsals and excision of R foot wound 05/13/[address] Rust * Group B strep bacteremia (PCN sensitive) - on Cefazolin Admission and Anticipated Discharge Date Admission Date: May 09, 2022 Subjective Mr. Walker was evaluated in his hospital room this morning. He was visiting w/ family. He voiced no medical concerns Review of Systems Constitutional: no fever Eyes: no problem reported Ear, Nose, Mouth, Throat: no problem reported Respiratory: no dyspnea Cardiovascular: no chest pain and no palpitations Gastrointestinal: no abdominal pain Physical Exam Constitutional: + overweight; not in distress Eyes: PERRL, conjunctivae normal, anicteric sclerae ENMT: external ear and nose normal, oropharynx normal Neck: trachea midline, no thyromegaly Respiratory: normal respiratory effort, lungs clear to auscultation Cardiovascular: RRR, no murmur, no edema Extremities: + AV fistula (L RC AVF + bruit) Neurologic: Speech / Cognition: normal speech and normal cognition Results & Data Vital Signs (Past 12 Hours) Vital Signs Temp Pulse Pulse Resp BP Pulse Ox O2 Del Method 05/14/22 07:07 36.8 C 70 16 123/75 95 Nasal Cannula 05/14/22 03:00 36.5 C 57 L 16 100/67 92 Nasal Cannula 05/14/22 00:00 70 05/13/22 23:00 36.6 C 70 24 107/66 94 Nasal Cannula O2 Flow Rate 05/14/22 07:07 4 05/14/22 03:00 4 05/14/22 00:00 05/13/22 23:00 4 Laboratory Results Laboratory Tests 05/13/22 05/14/22 05/14/22 05:44 05:31 05:31 WBC 9.45 Hgb 6.9 L* Hct 22.5 L Plt Count 198 Sodium 136 Potassium 3.9 Chloride 103 Carbon Dioxide 22 BUN 33 H Creatinine 5.22 H* D Glucose 169 H Calcium 7.2 L Transferrin % Sat 31 Ferritin > 7500.0 H PG Care Time/CCT Total # of Minutes Spent Total Time Spent with Patient: Total time spent is greater than 50% in coordination of care (as documented) at patient's floor/unit and/or counseling patient: Coding Level of Care Code 45463 SUB INP/OBS CARE 3/50MIN Diagnoses End-stage renal disease on hemodialysis N18.6; Z99.2 Anemia of chronic disease D63.8 Presence of arteriovenous fistula for hemodialysis Z99.2 Hypertension I10 Sepsis A41.9
[2022-05-14] MEDS ORDERED: INSULIN HUMAN REGULAR PER UNIT 5 UNITS in SYRINGE 4.95 ML IV SCH (12:00)
--- NOTE | 2022-05-14 12:09 | Hospitalist Progress Note ---
Date of Service May 14, 2022 Assessment & Plan (1) Sepsis: Plan: Patient presented to [facility] with lactic acidosis of 2.9, fever of 38.9. Was found to be bacteremic Was sent to [facility] for escalation of care Patient initially started on vancomycin and Zosyn Source: Right foot osteomyelitis. Blood culture now shows group B streptococcus agalactiae. Wound culture also growing group be strep agalactiae as well MSSA Infectious disease on board, patient is currently on cefazolin Blood culture from 05/09 negative TTE did not show any vegetation Hemodynamically stable Lactic acidosis resolved No leukocytosis (2) Bacteremia due to Gram-positive bacteria: Plan: Plan per above (3) Acute osteomyelitis of right foot: Plan: Most likely source of sepsis and bacteremia Podiatry and infectious disease on board Status post partial excision of third, fourth, fifth metatarsals and excision of right foot wound on 05/13/[address] Rust Likely discharge early to mid next week We will likely need IV antibiotics upon discharge Awaiting further recommendations for infectious disease (4) Acute metabolic encephalopathy: Plan: Likely secondary to sepsis Resolved Patient states that he was very lethargic and does not remember anything from the day prior to admission. His mind is now clear and now he is able to hold a conversation. (5) CAD (coronary artery disease): Plan: s/p PCI to RCA in 2017. Cath July 2019 w/ patent stent. Follows with Dr Calvillo at [facility] Repeat cardiac cath Mar 2021 for eval showed RCA in-stent restenosis and severe disease involving small, chronically occluded OM3. No intervention performed and medical therapy recommended. No improvement w/ imdur and was to f/u primary cardiology for further med therapy management Not on BB hx orthostatic hypotension/syncope, does not appear to be on EVANGELINA/ARB, presumably due to his ESRD on HD Trop at 141--> 106. Down to 86 on arrival to [facility]. Most likely secondary to demand ischemia/myocardial injury related to sepsis Continue ASA, statin Monitor on telemetry (6) Carotid artery stenosis: Plan: - Known, <50% bilaterally - Continue ASA (7) Chronic systolic heart failure: Plan: Repeat echo 05/09 showed an EF of 35 to 40% with severe hypokinesis to akinesis of the mid inferolateral wall along with severe LVH. Compared to prior echo in 01/17 at [facility], LV and RV systolic function are similar. Not on beta-alesia due to orthostatic hypotension/syncope Not on EVANGELINA/ARB possibly secondary to the same reason Continue outpatient follow-up with heavy media operator at [facility] Appears to be euvolemic and compensated at this time (8) Chronic diastolic heart failure: Plan: Hx grade 3 diastolic HF. On baseline 4L recently, did have COVID last month. 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 Is chronically anemic though of note. 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, also will hold amlodipine Monitor BP Blood pressure stable off of hydrochlorothiazide and amlodipine (16) Obstructive sleep apnea: (17) PAF (paroxysmal atrial fibrillation): Plan: Continue amiodarone 200mg daily, Eliquis 5mg BID (18) Presence of arteriovenous fistula for hemodialysis: (19) S/P cardiac pacemaker procedure: Plan: secondary to symptomatic bradycardia (20) Anemia of chronic disease: Plan: Hemoglobin 6.9 today We will transfuse a unit of blood Admission and Anticipated Discharge Date Admission Date: May 09, 2022 Subjective Patient says that he is still a little drowsy from his anesthetics. He is waiting for dialysis tomorrow so the anesthesia medications "will be cleared from my system". He denies any chest pain or shortness of breath. He does not particularly feel weak or tired. Review of Systems Review of Systems: All systems reviewed & are unremarkable except as noted in Subjective Physical Exam Physical Exam: General: Awake, conversant, looks older than his stated age Heart: S1, S2/regular rate and rhythm, no murmur rubs or gallops Lungs: Clear to auscultation bilaterally. Normal effort Abdomen: Soft/nontender/nondistended. No hepatosplenomegaly Extremities: No clubbing/cyanosis. No edema. Right foot dressing on Behavior: Appropriate, cooperative Results & Data Results & Data Vital Signs (Past 12 Hours) Vital Signs Temp Pulse Pulse Resp BP BP Pulse Ox 05/14/22 08:00 70 05/14/22 11:31 36.8 C 70 28 H 123/70 94 05/14/22 11:01 36.5 C 70 22 137/87 96 05/14/22 10:46 36.6 C 70 20 125/84 97 05/14/22 10:20 36.5 C 70 16 125/79 97 05/14/22 10:12 05/14/22 07:07 36.8 C 70 16 123/75 95 05/14/22 03:00 36.5 C 57 L 16 100/67 92 O2 Del Method O2 Flow Rate 05/14/22 08:00 05/14/22 11:31 05/14/22 11:01 05/14/22 10:46 05/14/22 10:20 05/14/22 10:12 Nasal Cannula 2 05/14/22 07:07 Nasal Cannula 4 05/14/22 03:00 Nasal Cannula 4 Laboratory Results Abnormal lab results 05/13/22 05/13/22 05/13/22 Range/Units 08:03 16:22 19:22 RBC (4.70-6.10) M/uL Hgb (14.0-18.0) g/dl Hct (42.0-52.0) % MCHC (32.0-36.0) g/dL RDW Std Deviation (36.4-46.3) fL RDW Coeff of Octavio (11.5-14.5) % BUN (6-23) mg/dl Creatinine (0.6-1.4) mg/dl BUN/Creatinine Ratio (10-20) Glucose (70-99(Fasting)) mg/dl POC Glucose 213 H 182 H (70-99) mg/dl Calcium (8.5-10.1) mg/dl Crossmatch See Detail 05/14/22 05/14/22 05/14/22 Range/Units 05:31 05:31 05:42 RBC 2.39 L (4.70-6.10) M/uL Hgb 6.9 L* (14.0-18.0) g/dl Hct 22.5 L (42.0-52.0) % MCHC 30.7 L (32.0-36.0) g/dL RDW Std Deviation 65.0 H (36.4-46.3) fL RDW Coeff of Octavio 19.9 H (11.5-14.5) % BUN 33 H (6-23) mg/dl Creatinine 5.22 H* D (0.6-1.4) mg/dl BUN/Creatinine Ratio 6.3 L (10-20) Glucose 169 H (70-99(Fasting)) mg/dl POC Glucose 221 H (70-99) mg/dl Calcium 7.2 L (8.5-10.1) mg/dl Crossmatch 05/14/22 05/14/22 05/14/22 Range/Units 07:31 11:28 11:29 RBC (4.70-6.10) M/uL Hgb (14.0-18.0) g/dl Hct (42.0-52.0) % MCHC (32.0-36.0) g/dL RDW Std Deviation (36.4-46.3) fL RDW Coeff of Octavio (11.5-14.5) % BUN (6-23) mg/dl Creatinine (0.6-1.4) mg/dl BUN/Creatinine Ratio (10-20) Glucose (70-99(Fasting)) mg/dl POC Glucose 196 H 335 H* 349 H* (70-99) mg/dl Calcium (8.5-10.1) mg/dl Crossmatch PG Care Time/CCT Total # of Minutes Spent Total Time Spent with Patient: Total time spent is greater than 50% in coordination of care (as documented) at patient's floor/unit and/or counseling patient: Coding Level of Care Code 84111 SUB INP/OBS CARE 2/35MIN Diagnoses Sepsis A41.9 Bacteremia due to Gram-positive bacteria R78.81 Acute osteomyelitis of right foot M86.171 Acute metabolic encephalopathy G93.41 CAD (coronary artery disease) I25.10 Associated angina: without angina Coronary Disease-Associated Artery/Lesion type: crow artery [place] vs. transplanted heart: crow heart Carotid artery stenosis I65.29 Chronic systolic heart failure I50.22 Chronic diastolic heart failure I50.32 Chronic respiratory failure with hypoxia, on home O2 therapy J96.11; Z99.81 Diabetes mellitus type 2, uncontrolled E11.65 Glycemic state: with hyperglycemia Diabetic infection of right foot E11.628; L08.9 End-stage renal disease on hemodialysis N18.6; Z99.2 GERD (gastroesophageal reflux disease) K21.9 Hyperlipidemia E78.5 Hypertension I10 Obstructive sleep apnea G47.33 PAF (paroxysmal atrial fibrillation) I48.0 Presence of arteriovenous fistula for hemodialysis Z99.2 S/P cardiac pacemaker procedure Z95.0 Anemia of chronic disease D63.8 (5) CAD (coronary artery disease) Associated angina: without angina Coronary Disease-Associated Artery/Lesion type: crow artery [place] vs. transplanted heart: crow heart Qualified Code(s): I25.10 - Atherosclerotic heart disease of crow coronary artery without angina pectoris (10) Diabetes mellitus type 2, uncontrolled Glycemic state: with hyperglycemia Qualified Code(s): E11.65 - Type 2 diabetes mellitus with hyperglycemia
--- NOTE | 2022-05-14 13:56 | XRay Report ---
XR chest 1V portable HISTORY: Shortness of breath with transfusion. ESRD COMPARISON: Chest and right rib series 05/12/2022. FINDINGS: No pneumothorax. Trace bilateral pleural effusions. The heart is mildly enlarged. There is a right-sided dual-chamber pacemaker. There is interval development of interstitial/vascular thickeni ng consistent with mild pulmonary edema. IMPRESSION: Cardiomegaly with mild pulmonary edema and trace bilateral pleural effusions. ACT 112: Negative or not required by law. Electronically signed by: Erwin Mitchell M.D. 05/14/2022 1:54 PM
--- NOTE | 2022-05-14 14:05 | Pharmacy Report ---
Pharmacy Glycemic Short Note 2 - Date of Service May 14, 2022 - Glycemic Short BSG Results (Last 24 hours): 05/13/22 05/13/22 05/14/22 16:22 19:22 05:31 Glucose 169 H POC Glucose 213 H 182 H 05/14/22 05/14/22 05/14/22 05:42 07:31 11:28 Glucose POC Glucose 221 H 196 H 335 H* 05/14/22 11:29 Glucose POC Glucose 349 H* OUTPATIENT ANTIDIABETIC REGIMEN: * Per most recent Endo note: 50 units of Toujeo QAM * A1c unreliable in the setting of HD ASSESSMENT: 05/14: * BSGs yesterday trended up as follows: [phone] mg/dl. Fasting BSG today was 196 mg/dl. * Order Lantus 5 units again today but patient continues to refuse this. Therefore, basal discontinued. * Pre-lunch BSG trended up to 349 mg/dl. 5 units IV regular insulin x1 given. * Novolog parameters: goal range, CF and carb ratio all tightened at lunch time to prevent ongoing hyperglycemia. 05/12: * BSGs over last 24 hours have been well controlled: [phone] mg/dL. Received 22 units of insulin, 8 units basal + 14 units bolus. * Fasting BSG was 143 mg/dL this AM. Patient is refusing Lantus. Will discontinue all basal insulin at this time. Removing carb ratio. Loosening goal to 140-180. All changes made due to patient preference. 05/11: * Received 25 units of insulin over the last 24 hours, 10 units basal + 15 units bolus. BSGs well controlled: [phone] mg/dL. * Fasting BSG increased to 193 mg/dL. Attempted to increase basal to 15 units this AM. Patient refused. Discussed with RN. Patient refusing secondary to BSGs less than 100 mg/dL yesterday. Had RN educate patient that basal insulin was unlikely the cause for this and that patient will require basal insulin in some capacity today. * Patient agreeable to 8 units of Lantus at lunchtime. Appreciate RN's help. * Will loosen carb ratio to prevent hypoglycemia. PLAN FOR INPATIENT GLYCEMIC CONTROL: * Basal insulin * None. Patient is refusing * Bolus insulin * NovoLog per scale ACHS or Q6hrs while NPO * Goal Range: Low 120 mg/dL - High 150 mg/dL * Correction Factor: 30 mg/dL/unit * Carb coverage: 1 unit per every 10 gms of carb consumed
[2022-05-14] MEDS: ceFAZolin 1000MG 1,000 MG/7.5 ML SYR IV SCH (17:50)
--- NOTE | 2022-05-14 19:51 | Orthopedic Progress Note ---
Date of Service May 14, 2022 Assessment & Plan (1) Diabetic infection of right foot: Plan: Patient seen, evaluated, and treated. Patient sutures are intact and skin is well co-apted. Awaiting bone cultures for out patient IV abx plan. (2) Acute osteomyelitis of right foot: Admission and Anticipated Discharge Date Admission Date: May 09, 2022 Subjective Patient seen at bedside status post Day#2 right foot surgery. He relates he is doing well. He is resting comfortably. Patient has no complaints. Review of Systems Review of Systems: All systems reviewed & are unremarkable except as noted in HPI & below and All systems reviewed & are unremarkable except as noted in Subjective Physical Exam Constitutional: cooperative and comfortable Respiratory: normal respiratory effort Cardiovascular: Rate/Rhythm: regular rate and regular rhythm Skin: Suture intact. Neurologic: Absent epicritic sensation. Psychiatric: Orientation: alert and oriented x 3 Results & Data Vital Signs (Past 12 Hours) Vital Signs Temp Pulse Pulse Resp BP BP Pulse Ox 05/14/22 16:38 36.5 C 70 16 120/78 96 05/14/22 16:00 70 05/14/22 08:00 70 05/14/22 13:08 36.4 C L 70 20 129/78 96 05/14/22 12:31 36.5 C 72 20 119/76 94 05/14/22 11:31 36.8 C 70 28 H 123/70 94 05/14/22 11:01 36.5 C 70 22 137/87 96 05/14/22 10:46 36.6 C 70 20 125/84 97 05/14/22 10:20 36.5 C 70 16 125/79 97 05/14/22 10:12 O2 Del Method O2 Flow Rate 05/14/22 16:38 Nasal Cannula 4 05/14/22 16:00 05/14/22 08:00 05/14/22 13:08 05/14/22 12:31 05/14/22 11:31 05/14/22 11:01 05/14/22 10:46 05/14/22 10:20 05/14/22 10:12 Nasal Cannula 4
[2022-05-14] MEDS: ATORVASTATIN 40 MG TAB PO SCH (20:35)
[2022-05-14] MEDS: MONTELUKAST SODIUM 10 MG TABLET PO SCH (20:35)
[2022-05-15] MEDS ORDERED: EPOETIN ALFA 20,000 UNITS/ML VIAL IV SCH (07:00)
[2022-05-15] MEDS ORDERED: SODIUM CHLORIDE 0.9% 1000ML 1,000 ML IV PRN (07:00)
[2022-05-15 07:05] LABS: Hematocrit (blood only) 28.6 % (42.0-52.0); Mean Corpuscular Hemoglobin 29.3 pg (25.0-34.0); Mean Corpuscular Hgb Conc 31.5 g/dL (32.0-36.0); Mean Corpuscular Volume 93.2 fL (80.0-100.0); Mean Platelet Volume 10.9 fL (9.4-12.4); Platelet Count 197 K/uL (130-400); RDW Coefficient of Variation 19.9 % (11.5-14.5); RDW Standard Deviation 62.7 fL (36.4-46.3); Red Blood Count 3.07 M/uL (4.70-6.10); White Blood Count 10.21 K/ul (4.8-10.8)
[2022-05-15 07:29] LABS: BUN Creatinine Ratio 6.4 (10-20); Calcium 8.5 mg/dl (8.5-10.1); Creatinine Clr Calc Pharmacy 13.9 ml/min; Est GFR (African American) 8.9 ml/min; Est GFR (Non-African American) 7.7 ml/min; Potassium 4.3 mmol/L (3.5-5.1)
[2022-05-15] MEDS: INSULIN ASPART PER UNIT CHARGE SC SCH ×4 (08:26→20:48)
--- NOTE | 2022-05-15 08:45 | Nephrology Progress Note ---
Date of Service May 15, 2022 Assessment & Plan (1) End-stage renal disease on hemodialysis: Plan: * HD this am. Orders have been entered into EMR and HD RN notified * Outpatient HD Rx: MWF 4.25 hours Qb 500 Qd 600, 2K 2.5Ca, 139Na, 40HCO3. EDW 103 kg * Normally dialyzes as outpatient at [facility] under the care of Dr. Mojica (2) Anemia of chronic disease: Plan: * Did not tolerate blood transfusion yesterday (anxious about receiving blood products outside of HD) * Ferritin > 7500 precludes IV iron * Hgb improved to 9.0 this am. Patient reports am blood draws are from midline catheter. Question whether last two samples were in error/diluted. Will recheck H&H in am (3) Presence of arteriovenous fistula for hemodialysis: Plan: * s/p angioplasty with [employer] TE[employer] by Dr. Mena 04/20 * Currently AVF w/ + bruit (4) Hypertension: Plan: * BP is currently well controlled off all BP medications (had been on Amlodipine & HCTZ as outpatient) (5) Sepsis: Plan: * Osteomyelitis R foot s/p partial excision of 3rd, 4th, 5th metatarsals and excision of R foot wound 05/13/[address] Rust * Group B strep bacteremia (PCN sensitive) - on Cefazolin Admission and Anticipated Discharge Date Admission Date: May 09, 2022 Subjective Mr. Walker was evaluated in his hospital room this morning. He did not tolerate blood transfusion yesterday and asked to have it stopped after 1/2 unit (mild dyspnea, no angina, rash, hives or hypotension). He denies overt blood loss. Mr. Walker is awaiting HD this later this morning. Review of Systems Constitutional: no fever Eyes: no problem reported Ear, Nose, Mouth, Throat: no problem reported Respiratory: no dyspnea Cardiovascular: no chest pain and no palpitations Gastrointestinal: no abdominal pain Physical Exam Constitutional: + overweight; not in distress Eyes: PERRL, conjunctivae normal, anicteric sclerae ENMT: external ear and nose normal, oropharynx normal Neck: trachea midline, no thyromegaly Respiratory: normal respiratory effort, lungs clear to auscultation Cardiovascular: RRR, no murmur, no edema Extremities: + AV fistula (L RC AVF + bruit) Neurologic: Speech / Cognition: normal speech and normal cognition Results & Data Vital Signs (Past 12 Hours) Vital Signs Temp Pulse Pulse Resp BP Pulse Ox O2 Del Method 05/15/22 07:30 36.7 C 75 18 123/67 96 Nasal Cannula 05/15/22 03:24 36.7 C 72 22 126/73 100 CPAP 05/14/22 23:41 70 05/14/22 23:27 36.4 C L 71 23 136/92 100 CPAP 05/14/22 22:28 Nasal Cannula O2 Flow Rate 05/15/22 07:30 4 05/15/22 03:24 05/14/22 23:41 05/14/22 23:27 05/14/22 22:28 4 Laboratory Results Laboratory Tests 05/15/22 05/15/22 06:19 06:19 WBC 10.21 Hgb 9.0 L Hct 28.6 L Plt Count 197 Sodium 134 L Potassium 4.3 Chloride 96 L Carbon Dioxide 23 BUN 47 H Creatinine 7.31 H* D Glucose 158 H PG Care Time/CCT Total # of Minutes Spent Total Time Spent with Patient: Total time spent is greater than 50% in coordination of care (as documented) at patient's floor/unit and/or counseling patient: Coding Level of Care Code 16830 SUB INP/OBS CARE 3/50MIN Diagnoses End-stage renal disease on hemodialysis N18.6; Z99.2 Anemia of chronic disease D63.8 Presence of arteriovenous fistula for hemodialysis Z99.2 Hypertension I10 Sepsis A41.9
--- NOTE | 2022-05-15 10:09 | Infectious Disease Progress Nt ---
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 ID consulted for streptococcal bacteremia. 04/12/22-04/13/22 at due to SOB secondary to COVID and discharged to home with 5 days Dexamethasone and has been struggling with shortness of breath since per most recent PCP notes. 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 He was sent back by [facility] to [place] [facility] for evaluation. Blood cultures taken there grew Group B Streptococcus he was TF to [facility]. 2DE negative s/p partial excision of 3rd, 4th, 5th metatarsals and excision of R foot wound 05/13/22- excised bone sent for path MICRO 05/09 Blood cultures negative 05/09 superficial wound cx Group B BHS and MSSA 05/13 OR cx NGTD Bone scan: Abnormal 3 phase bone scan of the right foot, as described above. Multifocal moderate radiotracer uptake within the right foot on the delayed phase images. The findings favor multifocal osteomyelitis, involving the right third and fourth metatarsals and the remaining portion of the right fifth metatarsal. (2) Dialysis AV fistula malfunction: (3) S/P cardiac pacemaker procedure: (4) Acute osteomyelitis of right foot: (5) Diabetic infection of right foot: Plan -Continue Cefazolin 1G IV daily (HD dosing) as d/w pharmacy -Bcxs are negative -Pending path is of excised bone- pt most likely with residual osteomyelitis -Would plan on duration of 6 weeks of cefazolin 1 g IV daily from OR 05/13/22 (end date 06/24/22) with weekly CBC with diff, CMP, ESR and CRP. Please page with any questions. Gudelia Gordon M.D. [facility] [employer] Pager [phone] Admission and Anticipated Discharge Date Admission Date: May 09, 2022 Subjective This patient recommendation is based on a telemedicine consult request which was completed asynchronously through chart review and information provided by the primary physician. The patient was not seen or examined today. The evaluation is consultative in nature and all patient care and treatment decisions can either be accepted or rejected by the patient's primary hospital-based treating physician using their own independent medical judgment for their patient. Time Spent Reviewing Chart: 31+ minutes s/p partial excision of 3rd, 4th, 5th R metatarsals and excision of R foot wound on 05/13/22 by orthopedics OR note reviewed- excised bone sent for path Results & Data Vital Signs (Past 12 Hours) Vital Signs Temp Pulse Pulse Pulse Resp BP BP 05/15/22 09:30 70 101/67 05/15/22 09:03 70 121/70 05/15/22 08:55 36.3 C L 70 05/15/22 07:30 36.7 C 75 18 123/67 05/15/22 03:24 36.7 C 72 22 126/73 05/14/22 23:41 70 05/14/22 23:27 36.4 C L 71 23 136/92 05/14/22 22:28 Pulse Ox O2 Del Method O2 Flow Rate 05/15/22 09:30 05/15/22 09:03 05/15/22 08:55 05/15/22 07:30 96 Nasal Cannula 4 05/15/22 03:24 100 CPAP 05/14/22 23:41 05/14/22 23:27 100 CPAP 05/14/22 22:28 Nasal Cannula 4 Laboratory Results 05/13/22 09:00 Gram Stain - Final Foot,Right Aerobic and Anaerobic Culture - Preliminary No growth to date. 05/09/22 09:37 Aerobic Blood Culture - Final Blood No growth in Aerobic bottle after 5 days. Anaerobic Blood Culture - Final No growth in Anaerobic bottle after 5 days. 05/09/22 09:23 Aerobic Blood Culture - Final Blood No growth in Aerobic bottle after 5 days. Anaerobic Blood Culture - Final No growth in Anaerobic bottle after 5 days. 05/15/22 05/15/22 05/15/22 07:30 06:19 06:19 WBC 10.21 RBC 3.07 L Hgb 9.0 L Hct 28.6 L MCV 93.2 MCH 29.3 MCHC 31.5 L RDW Std Deviation 62.7 H RDW Coeff of Octavio 19.9 H Plt Count 197 MPV 10.9 Absolute Nucleated RBC 0.10 Nucleated RBC % (auto) 1.0 Sodium 134 L Potassium 4.3 Chloride 96 L Carbon Dioxide 23 Anion Gap 15 H BUN 47 H Creatinine 7.31 H* D Est Cr Clr Drug Dosing 13.9 Est GFR ( Amer) 8.9 Est GFR (Non-Af Amer) 7.7 BUN/Creatinine Ratio 6.4 L Glucose 158 H POC Glucose 138 H Calcium 8.5 Blood Type Antibody Screen Crossmatch 05/14/22 05/14/22 05/14/22 19:22 16:18 11:29 WBC RBC Hgb Hct MCV MCH MCHC RDW Std Deviation RDW Coeff of Octavio Plt Count MPV Absolute Nucleated RBC Nucleated RBC % (auto) Sodium Potassium Chloride Carbon Dioxide Anion Gap BUN Creatinine Est Cr Clr Drug Dosing Est GFR ( Amer) Est GFR (Non-Af Amer) BUN/Creatinine Ratio Glucose POC Glucose 136 H 163 H 349 H* Calcium Blood Type Antibody Screen Crossmatch 05/14/22 05/13/22 11:28 08:03 WBC RBC Hgb Hct MCV MCH MCHC RDW Std Deviation RDW Coeff of Octavio Plt Count MPV Absolute Nucleated RBC Nucleated RBC % (auto) Sodium Potassium Chloride Carbon Dioxide Anion Gap BUN Creatinine Est Cr Clr Drug Dosing Est GFR ( Amer) Est GFR (Non-Af Amer) BUN/Creatinine Ratio Glucose POC Glucose 335 H* Calcium Blood Type O Positive Antibody Screen NEGATIVE Crossmatch See Detail Diagnostic Findings Chest X-Ray 05/14/22 13:38 XR chest 1V portable HISTORY: Shortness of breath with transfusion. ESRD COMPARISON: Chest and right rib series 05/12/2022. FINDINGS: No pneumothorax. Trace bilateral pleural effusions. The heart is mildly enlarged. There is a right-sided dual-chamber pacemaker. There is interval development of interstitial/vascular thickening consistent with mild pulmonary edema. IMPRESSION: Cardiomegaly with mild pulmonary edema and trace bilateral pleural effusions. ACT 112: Negative or not required by law. Electronically signed by: Erwin Mitchell M.D. 05/14/2022 1:54 PM Medications Administered Current Medications Acetaminophen (Acetaminophen 325 Mg Tab) 650 mg PO Q4H PRN PRN Reason: Pain or Fever Stop: 06/08/22 09:04 Last Admin: 05/14/22 18:23 Dose: 650 mg Albuterol (Albuterol Hfa 8 Gm Inhaler) 2 puffs INH Q6H PRN PRN Reason: shortness of breath or wheezing Stop: 06/08/22 09:09 Amiodarone HCl (Amiodarone 200 Mg Tab) 200 mg PO QAM [facility] Stop: 06/08/22 09:29 Last Admin: 05/14/22 08:12 Dose: 200 mg Apixaban (Apixaban 5 Mg Tablet) 5 mg PO BID [facility] Stop: 06/08/22 09:14 Last Admin: 05/14/22 20:35 Dose: 5 mg Aspirin (Aspirin 81 Mg Chew) 81 mg PO QAM [facility] Stop: 06/08/22 09:29 Last Admin: 05/14/22 08:14 Dose: 81 mg Atorvastatin Calcium (Atorvastatin 40 Mg Tab) 40 mg PO HS [facility] Stop: 06/08/22 20:59 Last Admin: 05/14/22 20:35 Dose: 40 mg Betamethasone Valerate (Betamethasone Hallie 0.1% Cr 15 Gm) 1 appln TOP BID PRN PRN Reason: skin irritation Stop: 06/08/22 09:09 Dextrose (Dextrose 50% 50 Ml Syringe) 25 - 50 ml IV UD PRN; Protocol PRN Reason: Hypoglycemia Protocol Stop: 06/08/22 09:04 Epoetin Олег (Epoetin Олег 20,000 Units/Ml Vial) 20,000 units IV TODAY@0700 [facility] Stop: 05/15/22 18:00 Fluticasone/Vilanterol (Fluticasone/Vilanterol 100/25mcg 14 Puffs/Inhaler) 1 puffs INH DAILY [facility] Stop: 06/08/22 09:14 Last Admin: 05/14/22 08:12 Dose: 1 puffs Glucagon (Glucagon For Inj 1 Mg Vial) 1 mg SQ UD PRN; Protocol PRN Reason: Hypoglycemia Protocol Stop: 06/08/22 09:04 Glucose (Glucose 10 Tab/Tube) 4 - 8 tab PO UD PRN; Protocol PRN Reason: Hypoglycemia Treatment Stop: 06/08/22 09:04 Glucose (Glucose 40% Gel 15 Gm Tube) 15 - 30 gm PO UD PRN; Protocol PRN Reason: Hypoglycemia Protocol Stop: 06/08/22 09:04 Cefazolin Sodium (Ancef 1000mg) 1,000 mg in 7.5 mls @ 2.5 mls/min IV Q24H VICKY Stop: 05/26/22 17:59 Last Admin: 05/14/22 17:50 Dose: 2.5 mls/min Sodium Chloride (Nss 1000ml) 1,000 mls @ 0 mls/hr IV .Q0M PRN PRN Reason: For Hemodialysis Use ONLY Stop: 05/15/22 12:59 Insulin Aspart (Insulin Aspart Per Unit) 0 units SC ACHS [facility]; Protocol Stop: 06/08/22 11:29 Last Admin: 05/15/22 08:26 Dose: Not Given Miscellaneous (Carbohydrates For Hypoglycemia ) 15 - 30 gm PO UD PRN PRN Reason: Hypoglycemia Protocol Stop: 06/08/22 09:04 Miscellaneous Information (Pharmacy Glycemic Mgmt Consult) 1 each N/A UD PRN PRN Reason: Consult Stop: 06/08/22 09:04 Montelukast Sodium (Montelukast Sodium 10 Mg Tablet) 10 mg PO HS [facility] Stop: 06/08/22 20:59 Last Admin: 05/14/22 20:35 Dose: 10 mg Ondansetron HCl (Ondansetron Inj 2 Mg/Ml 2 Ml Vial) 4 mg IV Q6H PRN PRN Reason: Nausea Stop: 06/08/22 09:04 Pantoprazole Sodium (Pantoprazole 40 Mg Tab) 40 mg PO QAM [facility] Stop: 06/08/22 10:14 Last Admin: 05/14/22 08:12 Dose: 40 mg Vitamin D (Cholecalciferol 5,000 Units 125 Mcg Tab) 5,000 units PO DAILY [facility] Stop: 06/09/22 08:59 Last Admin: 05/14/22 08:12 Dose: 5,000 units
--- NOTE | 2022-05-15 11:54 | Pharmacy Report ---
Pharmacy Glycemic Short Note 2 - Date of Service May 15, 2022 - Glycemic Short BSG Results (Last 24 hours): 05/14/22 05/14/22 05/14/22 11:28 11:29 16:18 Glucose POC Glucose 335 H* 349 H* 163 H 05/14/22 05/15/22 05/15/22 19:22 06:19 07:30 Glucose 158 H POC Glucose 136 H 138 H OUTPATIENT ANTIDIABETIC REGIMEN: * Per most recent Endo note: 50 units of Toujeo QAM * A1c unreliable in the setting of HD ASSESSMENT: 05/15: * BSGs yesterday were 245-686-052-136 mg/dL. Fasting BSG today was 138 mg/dL. * Patient continues to refuse insulin. Per RN, patient would have received 5 units of novolog this morning for the amount of carbs eaten. * Novolog scale was adjusted this morning slightly after it was loosened again last evening, but due to refusal, unclear what the effects of this are. 05/14: * BSGs yesterday trended up as follows: 228-645-360-182 mg/dl. Fasting BSG today was 196 mg/dl. * Order Lantus 5 units again today but patient continues to refuse this. Therefore, basal discontinued. * Pre-lunch BSG trended up to 349 mg/dl. 5 units IV regular insulin x1 given. * Novolog parameters: goal range, CF and carb ratio all tightened at lunch time to prevent ongoing hyperglycemia. 05/12: * BSGs over last 24 hours have been well controlled: 115-242-77-128 mg/dL. Received 22 units of insulin, 8 units basal + 14 units bolus. * Fasting BSG was 143 mg/dL this AM. Patient is refusing Lantus. Will discontinue all basal insulin at this time. Removing carb ratio. Loosening goal to 140-180. All changes made due to patient preference. 05/11: * Received 25 units of insulin over the last 24 hours, 10 units basal + 15 units bolus. BSGs well controlled: 237-48-430-82 mg/dL. * Fasting BSG increased to 193 mg/dL. Attempted to increase basal to 15 units this AM. Patient refused. Discussed with RN. Patient refusing secondary to BSGs less than 100 mg/dL yesterday. Had RN educate patient that basal insulin was unlikely the cause for this and that patient will require basal insulin in some capacity today. * Patient agreeable to 8 units of Lantus at lunchtime. Appreciate RN's help. * Will loosen carb ratio to prevent hypoglycemia. PLAN FOR INPATIENT GLYCEMIC CONTROL: * Basal insulin * None. Patient is refusing * Bolus insulin * NovoLog per scale ACHS or Q6hrs while NPO * Goal Range: Low 120 mg/dL - High 150 mg/dL * Correction Factor: 40 mg/dL/unit * Carb coverage: 1 unit per every 12 gms of carb consumed
--- NOTE | 2022-05-15 11:58 | Hospitalist Progress Note ---
Date of Service May 15, 2022 Assessment & Plan (1) Sepsis: Plan: Patient presented to [facility] with lactic acidosis of 2.9, fever of 38.9. Was found to be bacteremic Was sent to [facility] for escalation of care Patient initially started on vancomycin and Zosyn Source: Right foot osteomyelitis. Blood culture grew group B streptococcus agalactiae. Wound culture also growing group be strep agalactiae as well MSSA Infectious disease on board, patient is currently on cefazolin Blood culture from 05/09 negative. Awaiting pathology from excised bone for ID to decide on duration of antibiotics TTE did not show any vegetation Hemodynamically stable Lactic acidosis resolved No leukocytosis (2) Bacteremia due to Gram-positive bacteria: Plan: Plan per above (3) Acute osteomyelitis of right foot: Plan: Most likely source of sepsis and bacteremia Podiatry and infectious disease on board Status post partial excision of third, fourth, fifth metatarsals and excision of right foot wound on 05/13/[address] Rust Likely discharge midweek We will likely need IV antibiotics upon discharge Awaiting bone pathology report and further recommendations for infectious disease (4) Acute metabolic encephalopathy: Plan: Likely secondary to sepsis Resolved Patient states that he was very lethargic and does not remember anything from the day prior to admission. His mind is now clear and now he is able to hold a conversation. (5) CAD (coronary artery disease): Plan: s/p PCI to RCA in 2017. Cath July 2019 w/ patent stent. Follows with Dr Calvillo at [facility] Repeat cardiac cath Mar 2021 for eval showed RCA in-stent restenosis and severe disease involving small, chronically occluded OM3. No intervention performed and medical therapy recommended. No improvement w/ imdur and was to f/u primary cardiology for further med therapy management Not on BB hx orthostatic hypotension/syncope, does not appear to be on EVANGELINA/ARB, presumably due to his ESRD on HD Trop at 141--> 106. Down to 86 on arrival to [facility]. Most likely secondary to demand ischemia/myocardial injury related to sepsis Continue ASA, statin Monitor on telemetry (6) Carotid artery stenosis: Plan: - Known, <50% bilaterally - Continue ASA (7) Chronic systolic heart failure: Plan: Repeat echo 05/09 showed an EF of 35 to 40% with severe hypokinesis to akinesis of the mid inferolateral wall along with severe LVH. Compared to prior echo in 01/17 at [facility], LV and RV systolic function are similar. 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 (8) Chronic diastolic heart failure: Plan: Hx grade 3 diastolic HF. On baseline 4L recently, did have COVID last month. 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 Is chronically anemic though of note. 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 No need for blood transfusion Admission and Anticipated Discharge Date Admission Date: May 09, 2022 Subjective Patient complains of shortness of breath. This started when blood transfusion was attempted yesterday. Review of Systems Review of Systems: All systems reviewed & are unremarkable except as noted in Subjective Physical Exam Physical Exam: General: Awake, conversant, looks older than his stated age Heart: S1, S2/regular rate and rhythm, no murmur rubs or gallops Lungs: Clear to auscultation bilaterally. Normal effort Abdomen: Soft/nontender/nondistended. No hepatosplenomegaly Extremities: No clubbing/cyanosis. No edema. Right foot dressing on Behavior: Appropriate, cooperative Results & Data Results & Data Vital Signs (Past 12 Hours) Vital Signs Temp Pulse Pulse Pulse Resp BP BP 05/15/22 11:30 70 114/67 05/15/22 07:30 05/15/22 11:00 70 106/62 05/15/22 10:30 70 98/53 L 05/15/22 08:00 70 05/15/22 10:00 70 99/61 L 05/15/22 09:30 70 101/67 05/15/22 09:03 70 121/70 05/15/22 08:55 36.3 C L 70 05/15/22 07:30 36.7 C 75 18 123/67 05/15/22 03:24 36.7 C 72 22 126/73 Pulse Ox O2 Del Method O2 Flow Rate 05/15/22 11:30 05/15/22 07:30 Nasal Cannula 4 05/15/22 11:00 05/15/22 10:30 05/15/22 08:00 05/15/22 10:00 05/15/22 09:30 05/15/22 09:03 05/15/22 08:55 05/15/22 07:30 96 Nasal Cannula 4 05/15/22 03:24 100 CPAP Laboratory Results Abnormal lab results 05/14/22 05/14/22 05/15/22 Range/Units 16:18 19:22 06:19 RBC 3.07 L (4.70-6.10) M/uL Hgb 9.0 L (14.0-18.0) g/dl Hct 28.6 L (42.0-52.0) % MCHC 31.5 L (32.0-36.0) g/dL RDW Std Deviation 62.7 H (36.4-46.3) fL RDW Coeff of Octavio 19.9 H (11.5-14.5) % Sodium (136-145) mmol/L Chloride (98-107) mmol/L Anion Gap (3-11) BUN (6-23) mg/dl Creatinine (0.6-1.4) mg/dl BUN/Creatinine Ratio (10-20) Glucose (70-99(Fasting)) mg/dl POC Glucose 163 H 136 H (70-99) mg/dl 05/15/22 05/15/22 Range/Units 06:19 07:30 RBC (4.70-6.10) M/uL Hgb (14.0-18.0) g/dl Hct (42.0-52.0) % MCHC (32.0-36.0) g/dL RDW Std Deviation (36.4-46.3) fL RDW Coeff of Octavio (11.5-14.5) % Sodium 134 L (136-145) mmol/L Chloride 96 L (98-107) mmol/L Anion Gap 15 H (3-11) BUN 47 H (6-23) mg/dl Creatinine 7.31 H* D (0.6-1.4) mg/dl BUN/Creatinine Ratio 6.4 L (10-20) Glucose 158 H (70-99(Fasting)) mg/dl POC Glucose 138 H (70-99) mg/dl Diagnostic Findings Chest X-Ray 05/14/22 13:38 XR chest 1V portable HISTORY: Shortness of breath with transfusion. ESRD COMPARISON: Chest and right rib series 05/12/2022. FINDINGS: No pneumothorax. Trace bilateral pleural effusions. The heart is mildly enlarged. There is a right-sided dual-chamber pacemaker. There is interval development of interstitial/vascular thickening consistent with mild pulmonary edema. IMPRESSION: Cardiomegaly with mild pulmonary edema and trace bilateral pleural effusions. ACT 112: Negative or not required by law. Electronically signed by: Erwin Mitchell M.D. 05/14/2022 1:54 PM PG Care Time/CCT Total # of Minutes Spent Total Time Spent with Patient: Total time spent is greater than 50% in coordination of care (as documented) at patient's floor/unit and/or counseling patient: Coding Level of Care Code 04304 SUB INP/OBS CARE 2/35MIN Diagnoses Sepsis A41.9 Bacteremia due to Gram-positive bacteria R78.81 Acute osteomyelitis of right foot M86.171 Acute metabolic encephalopathy G93.41 CAD (coronary artery disease) I25.10 Coronary Disease-Associated Artery/Lesion type: [place] artery [place] vs. transplanted heart: [place] heart Associated angina: without angina Carotid artery stenosis I65.29 Chronic systolic heart failure I50.22 Chronic diastolic heart failure I50.32 Chronic respiratory failure with hypoxia, on home O2 therapy J96.11; Z99.81 Diabetes mellitus type 2, uncontrolled E11.65 Glycemic state: with hyperglycemia Diabetic infection of right foot E11.628; L08.9 End-stage renal disease on hemodialysis N18.6; Z99.2 GERD (gastroesophageal reflux disease) K21.9 Hyperlipidemia E78.5 Hypertension I10 Obstructive sleep apnea G47.33 PAF (paroxysmal atrial fibrillation) I48.0 Presence of arteriovenous fistula for hemodialysis Z99.2 S/P cardiac pacemaker procedure Z95.0 Anemia of chronic disease D63.8 (5) CAD (coronary artery disease) Coronary Disease-Associated Artery/Lesion type: [place] artery [place] vs. transplanted heart: [place] heart Associated angina: without angina Qualified Code(s): I25.10 - Atherosclerotic heart disease of [place] coronary artery without angina pectoris (10) Diabetes mellitus type 2, uncontrolled Glycemic state: with hyperglycemia Qualified Code(s): E11.65 - Type 2 diabetes mellitus with hyperglycemia
[2022-05-15] MEDS: AMIODARONE 200 MG TAB PO SCH (13:32)
[2022-05-15] MEDS: CHOLECALCIFEROL 5,000 UNITS 125 MCG TAB PO SCH (13:32)
[2022-05-15] MEDS: PANTOprazole 40 MG TAB PO SCH (13:32)
[2022-05-15] MEDS: APIXABAN 5 MG TABLET PO SCH ×2 (13:32→20:47)
[2022-05-15] MEDS: ASPIRIN 81 MG CHEW PO SCH (13:37)
[2022-05-15] MEDS: FLUTICASONE/VILANTEROL 100/25MCG 14 PUFFS/INHALER INH SCH (13:38)
[2022-05-15] MEDS: ACETAMINOPHEN 325 MG TAB PO PRN (17:13)
[2022-05-15] MEDS: ceFAZolin 1000MG 1,000 MG/7.5 ML SYR IV SCH (18:19)
--- NOTE | 2022-05-15 20:17 | Orthopedic Progress Note ---
Date of Service May 15, 2022 Assessment & Plan (1) Diabetic infection of right foot: Plan: Patient seen, evaluated, and treated. Dressing change with out incident. Minimal drainage. Patient sutures are intact and skin is well co-apted. Appreciate ID recommendations. Agree with Hospitalist and ID pt most likely with residual osteomyelitis -Continue Cefazolin 1G IV daily (HD dosing) as d/w pharmacy -Would plan on duration of 6 weeks of cefazolin 1 g IV daily from OR 05/13/22 (end date 06/24/22) with weekly CBC with diff, CMP, ESR and CRP. Will continue to follow while in house. Patient will be seen in office upon discharge. Thank you for allowing me to participate in the care of this Patient. (2) Acute osteomyelitis of right foot: Admission and Anticipated Discharge Date Admission Date: May 09, 2022 Subjective Patient seen at bedside resting comfortably. Patient status post day # Review of Systems Review of Systems: All systems reviewed & are unremarkable except as noted in HPI & below Physical Exam Constitutional: cooperative and comfortable Respiratory: normal respiratory effort Cardiovascular: Rate/Rhythm: regular rate and regular rhythm Skin: Sutures intact. Minimal drainage. Neurologic: Absent epicritic sensation Psychiatric: Orientation: alert and oriented x 3 Results & Data Vital Signs (Past 12 Hours) Vital Signs Temp Pulse Pulse Pulse Resp BP BP 05/15/22 19:18 36.5 C 71 18 121/76 05/15/22 16:11 36.6 C 70 19 112/90 05/15/22 13:07 36.5 C 70 112/67 05/15/22 13:00 70 99/55 L 05/15/22 12:30 70 111/71 05/15/22 12:00 70 111/66 05/15/22 11:30 70 114/67 05/15/22 11:00 70 106/62 05/15/22 10:30 70 98/53 L 05/15/22 10:00 70 99/61 L 05/15/22 09:30 70 101/67 05/15/22 09:03 70 121/70 05/15/22 08:55 36.3 C L 70 Pulse Ox O2 Del Method O2 Flow Rate 05/15/22 19:18 97 CPAP 05/15/22 16:11 94 Nasal Cannula 2.0 05/15/22 13:07 05/15/22 13:00 05/15/22 12:30 05/15/22 12:00 05/15/22 11:30 05/15/22 11:00 05/15/22 10:30 05/15/22 10:00 05/15/22 09:30 05/15/22 09:03 05/15/22 08:55
[2022-05-15] MEDS: ATORVASTATIN 40 MG TAB PO SCH (20:48)
[2022-05-15] MEDS: MONTELUKAST SODIUM 10 MG TABLET PO SCH (20:48)
[2022-05-16 06:51] LABS: Hematocrit (blood only) 28.5 % (42.0-52.0); Hemoglobin 8.9 g/dl (14.0-18.0); Mean Corpuscular Hemoglobin 29.4 pg (25.0-34.0); Mean Corpuscular Hgb Conc 31.2 g/dL (32.0-36.0); Mean Corpuscular Volume 94.1 fL (80.0-100.0); Mean Platelet Volume 10.8 fL (9.4-12.4); Nucleated RBC # (auto) 0.08 K/uL (0-0.12); Nucleated RBC % (auto) 0.9 %; Platelet Count 226 K/uL (130-400); RDW Standard Deviation 65.9 fL (36.4-46.3); Red Blood Count 3.03 M/uL (4.70-6.10)
[2022-05-16 07:21] LABS: BUN Creatinine Ratio 5.9 (10-20); Calcium 8.1 mg/dl (8.5-10.1); Creatinine Clr Calc Pharmacy 19.7 ml/min; Est GFR (African American) 13.9 ml/min
[2022-05-16] MEDS: FLUTICASONE/VILANTEROL 100/25MCG 14 PUFFS/INHALER INH SCH (08:43)
[2022-05-16] MEDS: APIXABAN 5 MG TABLET PO SCH ×2 (08:43→20:42)
[2022-05-16] MEDS: CHOLECALCIFEROL 5,000 UNITS 125 MCG TAB PO SCH (08:43)
[2022-05-16] MEDS: AMIODARONE 200 MG TAB PO SCH (08:43)
[2022-05-16] MEDS: PANTOprazole 40 MG TAB PO SCH (08:43)
[2022-05-16] MEDS: INSULIN ASPART PER UNIT CHARGE SC SCH ×4 (08:46→20:26)
[2022-05-16] MEDS: ASPIRIN 81 MG CHEW PO SCH (08:46)
--- NOTE | 2022-05-16 09:16 | Nephrology Progress Note ---
Date of Service May 16, 2022 Assessment & Plan (1) End-stage renal disease on hemodialysis: Plan: * Volume status and electrolyte balance are currently acceptable. No acute indication for HD today * Outpatient HD Rx: MWF 4.25 hours Qb 500 Qd 600, 2K 2.5Ca, 139Na, 40HCO3. EDW 103 kg * Normally dialyzes as outpatient at [facility] under the care of Dr. Mojica (2) Anemia of chronic disease: Plan: * Ferritin > 7500 precludes IV iron * Hgb remains stable at ~9.0 * Will provide YOLETTE w/ HD tomorrow (3) Presence of arteriovenous fistula for hemodialysis: Plan: * s/p angioplasty with CRITICAL CARE EDUCATOR by Dr. Mena 04/20 * Currently AVF w/ + bruit (4) Hypertension: Plan: * BP is currently well controlled off all BP medications (had been on Amlodipine & HCTZ as outpatient) (5) Sepsis: Plan: * Osteomyelitis R foot s/p partial excision of 3rd, 4th, 5th metatarsals and excision of R foot wound 05/13/[address] Rust * Group B strep bacteremia (PCN sensitive) - on Cefazolin Admission and Anticipated Discharge Date Admission Date: May 09, 2022 Subjective Mr. Walker was evaluated in his hospital room this morning. He was dialyzed yesterday for 3 L UF without complication. He voices no new medical concerns Review of Systems Constitutional: no fever Eyes: no problem reported Ear, Nose, Mouth, Throat: no problem reported Respiratory: no dyspnea Cardiovascular: no chest pain and no palpitations Gastrointestinal: no abdominal pain Physical Exam Constitutional: + overweight; not in distress Eyes: PERRL, conjunctivae normal, anicteric sclerae ENMT: external ear and nose normal, oropharynx normal Neck: trachea midline, no thyromegaly Respiratory: normal respiratory effort, lungs clear to auscultation Cardiovascular: RRR, no murmur, no edema Extremities: + AV fistula (L RC AV F + bruit) Neurologic: Speech / Cognition: normal speech and normal cognition Results & Data Vital Signs (Past 12 Hours) Vital Signs Temp Pulse Pulse Resp BP Pulse Ox O2 Del Method 05/16/22 07:30 36.9 C 69 18 118/69 94 Nasal Cannula 05/16/22 08:00 71 05/16/22 03:26 36.9 C 71 18 130/84 97 CPAP 05/15/22 23:44 36.3 C L 70 18 110/69 97 CPAP 05/15/22 23:32 69 05/15/22 22:12 CPAP O2 Flow Rate 05/16/22 07:30 2 05/16/22 08:00 05/16/22 03:26 05/15/22 23:44 05/15/22 23:32 05/15/22 22:12 4 Laboratory Results Laboratory Tests 05/16/22 05/16/22 06:13 06:13 WBC 9.00 Hgb 8.9 L Hct 28.5 L Plt Count 226 Sodium 136 Potassium 4.0 Chloride 100 Carbon Dioxide 24 BUN 30 H Creatinine 5.09 H* D Glucose 171 H Calcium 8.1 L PG Care Time/CCT Total # of Minutes Spent Total Time Spent with Patient: Total time spent is greater than 50% in coordination of care (as documented) at patient's floor/unit and/or counseling patient: Coding Level of Care Code 43843 SUB INP/OBS CARE 3/50MIN Diagnoses End-stage renal disease on hemodialysis N18.6; Z99.2 Anemia of chronic disease D63.8 Presence of arteriovenous fistula for hemodialysis Z99.2 Hypertension I10 Sepsis A41.9
--- NOTE | 2022-05-16 11:00 | Infectious Disease Progress Nt ---
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 ID consulted for streptococcal bacteremia. 04/12/22-04/13/22 at due to SOB secondary to COVID and discharged to home with 5 days Dexamethasone and has been struggling with shortness of breath since per most recent PCP notes. 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 He was sent back by [facility] to [place] [facility] for evaluation. Blood cultures taken there grew Group B Streptococcus (scanned into chart) and he was TF to [facility]. 2DE negative s/p partial excision of 3rd, 4th, 5th metatarsals and excision of R foot wound 05/13/22- excised bone sent for path MICRO 05/09 Blood cultures negative 05/09 superficial wound cx Group B strep and MSSA 05/13 OR cx NGTD Bone scan: Abnormal 3 phase bone scan of the right foot, as described above. Multifocal moderate radiotracer uptake within the right foot on the delayed phase images. The findings favor multifocal osteomyelitis, involving the right third and fourth metatarsals and the remaining portion of the right fifth metatarsal. (2) Dialysis AV fistula malfunction: (3) S/P cardiac pacemaker procedure: (4) Acute osteomyelitis of right foot: (5) Diabetic infection of right foot: Plan -Continue Cefazolin 1G IV daily (HD dosing) as d/w pharmacy -Bcxs are NGTD- ok to place PICC -Pending path is of excised bone so will not impact plan- orthopedic surgery in agreement with likely residual osteomyelitis -Would treat for residual osteomyelitis with 6 weeks of cefazolin 1 g IV daily from OR 05/13/22 (end date 06/24/22) with weekly CBC with diff, CMP, ESR and CRP. -Discussed with pt and his partner Kaycee at bedside Will sign off at this time, please call if any questions. Gudelia Gordon M.D. [facility] [employer] Pager [phone] Admission and Anticipated Discharge Date Admission Date: May 09, 2022 Subjective Subsequent visit was provided via telemedicine using two-way real-time interac tive telecommunication between the patient and the telemedicine provider. For the duration of the visit, the provider was performing the assessment from a different facility than the patient. This includesuse of bluetooth stethoscope forauscultationperformed by the telepresenter that the telemedicine provider can hear if described in the physical exam. Switchboard Operator Receptionist contact information: Please call [employer] [facility] Call Center . (Phone Number For Physician Use Only) After establishing a telemedicine visit, patient was: Patient was verified with two unique identifiers, Patient/authorized rep acknowledged consent and understanding and Gave permission to continue telehealth session Time Spent with Patient: Subsequent => 25 min Pt denies fever, chills, abd pain, diarrhea. His partner Kaycee is at bedside. Physical Exam Physical Exam: PE: Gen: Awake, alert, NAD HEENT: anicteric Resp: no resp distress on O2NC Abd: Soft, ND, nontender Extr: no c/c/e LUE AVF with thrill R foot with incision lateral foot and incision extending around 4th toe with sutures. There is slight erythema adjacent to lateral incision. No noted drainage. Skin: RUE peripheral IV ok Results & Data Vital Signs (Past 12 Hours) Vital Signs Temp Pulse Pulse Resp BP Pulse Ox O2 Del Method 05/16/22 07:30 36.9 C 69 18 118/69 94 Nasal Cannula 05/16/22 08:00 71 05/16/22 03:26 36.9 C 71 18 130/84 97 CPAP 05/15/22 23:44 36.3 C L 70 18 110/69 97 CPAP 05/15/22 23:32 69 O2 Flow Rate 05/16/22 07:30 2 05/16/22 08:00 05/16/22 03:26 05/15/22 23:44 05/15/22 23:32 Laboratory Results 05/13/22 09:00 Gram Stain - Final Foot,Right Aerobic and Anaerobic Culture - Preliminary No growth to date. 0305/16/22 05/16/22 11:34 11:33 07:18 WBC RBC Hgb Hct MCV MCH MCHC RDW Std Deviation RDW Coeff of Octavio Plt Count MPV Absolute Nucleated RBC Nucleated RBC % (auto) Sodium Potassium Chloride Carbon Dioxide Anion Gap BUN Creatinine Est Cr Clr Drug Dosing Est GFR ( Amer) Est GFR (Non-Af Amer) BUN/Creatinine Ratio Glucose POC Glucose 281 H 305 H* 198 H Calcium 05/16/22 05/16/22 05/15/22 06:13 06:13 20:33 WBC 9.00 RBC 3.03 L Hgb 8.9 L Hct 28.5 L MCV 94.1 MCH 29.4 MCHC 31.2 L RDW Std Deviation 65.9 H RDW Coeff of Octavio 21.0 H Plt Count 226 MPV 10.8 Absolute Nucleated RBC 0.08 Nucleated RBC % (auto) 0.9 Sodium 136 Potassium 4.0 Chloride 100 Carbon Dioxide 24 Anion Gap 12 H BUN 30 H Creatinine 5.09 H* D Est Cr Clr Drug Dosing 19.7 Est GFR ( Amer) 13.9 Est GFR (Non-Af Amer) 12.0 BUN/Creatinine Ratio 5.9 L Glucose 171 H POC Glucose 240 H Calcium 8.1 L 05/15/22 05/15/22 05/15/22 18:20 16:09 13:30 WBC RBC Hgb Hct MCV MCH MCHC RDW Std Deviation RDW Coeff of Octavio Plt Count MPV Absolute Nucleated RBC Nucleated RBC % (auto) Sodium Potassium Chloride Carbon Dioxide Anion Gap BUN Creatinine Est Cr Clr Drug Dosing Est GFR ( Amer) Est GFR (Non-Af Amer) BUN/Creatinine Ratio Glucose POC Glucose 283 H 235 H 155 H Calcium Diagnostic Findings Chest X-Ray 05/14/22 13:38 XR chest 1V portable HISTORY: Shortness of breath with transfusion. ESRD COMPARISON: Chest and right rib series 05/12/2022. FINDINGS: No pneumothorax. Trace bilateral pleural effusions. The heart is mildly enlarged. There is a right-sided dual-chamber pacemaker. There is interval development of interstitial/vascular thickening consistent with mild pulmonary edema. IMPRESSION: Cardiomegaly with mild pulmonary edema and trace bilateral pleural effusions. ACT 112: Negative or not required by law. Electronically signed by: Erwin Mitchell M.D. 05/14/2022 1:54 PM Medications Administered Current Medications Acetaminophen (Acetaminophen 325 Mg Tab) 650 mg PO Q4H PRN PRN Reason: Pain or Fever Stop: 06/08/22 09:04 Last Admin: 05/15/22 17:13 Dose: 650 mg Albuterol (Albuterol Hfa 8 Gm Inhaler) 2 puffs INH Q6H PRN PRN Reason: shortness of breath or wheezing Stop: 06/08/22 09:09 Amiodarone HCl (Amiodarone 200 Mg Tab) 200 mg PO QAM [facility] Stop: 06/08/22 09:29 Last Admin: 05/16/22 08:43 Dose: 200 mg Apixaban (Apixaban 5 Mg Tablet) 5 mg PO BID [facility] Stop: 06/08/22 09:14 Last Admin: 05/16/22 08:43 Dose: 5 mg Aspirin (Aspirin 81 Mg Chew) 81 mg PO QAM [facility] Stop: 06/08/22 09:29 Last Admin: 05/16/22 08:46 Dose: 81 mg Atorvastatin Calcium (Atorvastatin 40 Mg Tab) 40 mg PO HS [facility] Stop: 06/08/22 20:59 Last Admin: 05/15/22 20:48 Dose: 40 mg Betamethasone Valerate (Betamethasone Hallie 0.1% Cr 15 Gm) 1 appln TOP BID PRN PRN Reason: skin irritation Stop: 06/08/22 09:09 Dextrose (Dextrose 50% 50 Ml Syringe) 25 - 50 ml IV UD PRN; Protocol PRN Reason: Hypoglycemia Protocol Stop: 06/08/22 09:04 Epoetin Олег (Epoetin Олег 20,000 Units/Ml Vial) 20,000 units IV TODAY@0700 [facility] Stop: 05/17/22 12:00 Fluticasone/Vilanterol (Fluticasone/Vilanterol 100/25mcg 14 Puffs/Inhaler) 1 puffs INH DAILY [facility] Stop: 06/08/22 09:14 Last Admin: 05/16/22 08:43 Dose: 1 puffs Glucagon (Glucagon For Inj 1 Mg Vial) 1 mg SQ UD PRN; Protocol PRN Reason: Hypoglycemia Protocol Stop: 06/08/22 09:04 Glucose (Glucose 10 Tab/Tube) 4 - 8 tab PO UD PRN; Protocol PRN Reason: Hypoglycemia Treatment Stop: 06/08/22 09:04 Glucose (Glucose 40% Gel 15 Gm Tube) 15 - 30 gm PO UD PRN; Protocol PRN Reason: Hypoglycemia Protocol Stop: 06/08/22 09:04 Cefazolin Sodium (Ancef 1000mg) 1,000 mg in 7.5 mls @ 2.5 mls/min IV Q24H [facility] Stop: 05/26/22 17:59 Last Admin: 05/15/22 18:19 Dose: 2.5 mls/min Sodium Chloride (Nss 1000ml) 1,000 mls @ 0 mls/hr IV .Q0M PRN PRN Reason: For Hemodialysis Use ONLY Stop: 05/17/22 12:59 Insulin Aspart (Insulin Aspart Per Unit) 0 units SC ACHS [facility]; Protocol Stop: 06/08/22 11:29 Last Admin: 05/16/22 08:46 Dose: 2 units Miscellaneous (Carbohydrates For Hypoglycemia ) 15 - 30 gm PO UD PRN PRN Reason: Hypoglycemia Protocol Stop: 06/08/22 09:04 Miscellaneous Information (Pharmacy Glycemic Mgmt Consult) 1 each N/A UD PRN PRN Reason: Consult Stop: 06/08/22 09:04 Montelukast Sodium (Montelukast Sodium 10 Mg Tablet) 10 mg PO HS [facility] Stop: 06/08/22 20:59 Last Admin: 05/15/22 20:48 Dose: 10 mg Ondansetron HCl (Ondansetron Inj 2 Mg/Ml 2 Ml Vial) 4 mg IV Q6H PRN PRN Reason: Nausea Stop: 06/08/22 09:04 Pantoprazole Sodium (Pantoprazole 40 Mg Tab) 40 mg PO QAM [facility] Stop: 06/08/22 10:14 Last Admin: 05/16/22 08:43 Dose: 40 mg Vitamin D (Cholecalciferol 5,000 Units 125 Mcg Tab) 5,000 units PO DAILY [facility] Stop: 06/09/22 08:59 Last Admin: 05/16/22 08:43 Dose: 5,000 units
--- NOTE | 2022-05-16 14:46 | Hospitalist Progress Note ---
Date of Service May 16, 2022 Assessment & Plan (1) Sepsis: Plan: Patient presented to [facility] with lactic acidosis of 2.9, fever of 38.9. Was found to be bacteremic Was sent to [facility] for escalation of care Patient initially started on vancomycin and Zosyn Source: Right foot osteomyelitis. Blood culture grew group B streptococcus agalactiae. Wound culture also growing group be strep agalactiae as well MSSA TTE did not show any vegetation Hemodynamically stable Lactic acidosis resolved No leukocytosis Infectious disease on board, patient is currently on cefazolin Blood culture from 05/09 negative. Per ID, can order PICC line placement. Order placed by me. Plan is to treat with IV cefazolin 1 g daily for 6 weeks (end date 06/24/2022) Working with case management to establish outpatient care for IV antibiotics (2) Bacteremia due to Gram-positive bacteria: Plan: Plan per above (3) Acute osteomyelitis of right foot: Plan: Most likely source of sepsis and bacteremia Podiatry and infectious disease on board Status post partial excision of third, fourth, fifth metatarsals and excision of right foot wound on 05/13/[address] Rust Likely discharge tomorrow Per ID, plan on IV cefazolin for 6 weeks (4) Acute metabolic encephalopathy: Plan: Likely secondary to sepsis Resolved Patient states that he was very lethargic and does not remember anything from the day prior to admission. His mind is now clear and now he is able to hold a conversation. (5) CAD (coronary artery disease): Plan: s/p PCI to RCA in 2018. Cath July 2019 w/ patent stent. Follows with Dr Calvillo at [facility] Repeat cardiac cath Mar 2021 for eval showed RCA in-stent restenosis and severe disease involving small, chronically occluded OM3. No intervention performed and medical therapy recommended. No improvement w/ imdur and was to f/u primary cardiology for further med therapy management Not on BB hx orthostatic hypotension/syncope, does not appear to be on EVANGELINA/ARB, presumably due to his ESRD on HD Trop at [facility] 141--> 106. Down to 86 on arrival to [facility]. Most likely secondary to demand ischemia/myocardial injury related to sepsis Continue ASA, statin Monitor on telemetry (6) Carotid artery stenosis: Plan: - Known, <50% bilaterally - Continue ASA (7) Chronic systolic heart failure: Plan: Repeat echo 05/09 showed an EF of 35 to 40% with severe hypokinesis to akinesis of the mid inferolateral wall along with severe LVH. Compared to prior echo in 01/17 at [facility], LV and RV systolic function are similar. Not on beta-laesia due to orthostatic hypotension/syncope Not on EVANGELINA/ARB possibly secondary to the same reason Continue outpatient follow-up with carbon cutter at [facility] Dialyzed 05/15 Appears euvolemic today (8) Chronic diastolic heart failure: Plan: Hx grade 3 diastolic HF. On baseline 4L recently, did have COVID last month. Dialyzed 05/15. 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 Is chronically anemic though of note. 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 No need for blood transfusion Admission and Anticipated Discharge Date Admission Date: May 09, 2022 Subjective Patient feels well today. Denies chest pain or shortness of breath. Review of Systems Review of Systems: All systems reviewed & are unremarkable except as noted in Subjective Physical Exam Physical Exam: General: Awake, conversant, looks older than his stated age Heart: S1, S2/regular rate and rhythm, no murmur rubs or gallops Lungs: Clear to auscultation bilaterally. Normal effort Abdomen: Soft/nontender/nondistended. No hepatosplenomegaly Extremities: No clubbing/cyanosis. No edema. Right foot dressing on Behavior: Appropriate, cooperative Results & Data Results & Data Vital Signs (Past 12 Hours) Vital Signs Temp Pulse Pulse Resp BP Pulse Ox O2 Del Method 05/16/22 11:25 36.5 C 68 18 127/76 96 Nasal Cannula 05/16/22 08:30 Nasal Cannula 05/16/22 07:30 36.9 C 69 18 118/69 94 Nasal Cannula 05/16/22 08:00 71 05/16/22 03:26 36.9 C 71 18 130/84 97 CPAP O2 Flow Rate 05/16/22 11:25 2 05/16/22 08:30 4 05/16/22 07:30 2 05/16/22 08:00 05/16/22 03:26 Laboratory Results Abnormal lab results 05/15/22 05/15/22 05/15/22 Range/Units 16:09 18:20 20:33 RBC (4.70-6.10) M/uL Hgb (14.0-18.0) g/dl Hct (42.0-52.0) % MCHC (32.0-36.0) g/dL RDW Std Deviation (36.4-46.3) fL RDW Coeff of Octavio (11.5-14.5) % Anion Gap (3-11) BUN (6-23) mg/dl Creatinine (0.6-1.4) mg/dl BUN/Creatinine Ratio (10-20) Glucose (70-99(Fasting)) mg/dl POC Glucose 235 H 283 H 240 H (70-99) mg/dl Calcium (8.5-10.1) mg/dl 05/16/22 05/16/22 05/16/22 Range/Units 06:13 06:13 07:18 RBC 3.03 L (4.70-6.10) M/uL Hgb 8.9 L (14.0-18.0) g/dl Hct 28.5 L (42.0-52.0) % MCHC 31.2 L (32.0-36.0) g/dL RDW Std Deviation 65.9 H (36.4-46.3) fL RDW Coeff of Octavio 21.0 H (11.5-14.5) % Anion Gap 12 H (3-11) BUN 30 H (6-23) mg/dl Creatinine 5.09 H* D (0.6-1.4) mg/dl BUN/Creatinine Ratio 5.9 L (10-20) Glucose 171 H (70-99(Fasting)) mg/dl POC Glucose 198 H (70-99) mg/dl Calcium 8.1 L (8.5-10.1) mg/dl 05/16/22/ Range/Units 11:33 11:34 RBC (4.70-6.10) M/uL Hgb (14.0-18.0) g/dl Hct (42.0-52.0) % MCHC (32.0-36.0) g/dL RDW Std Deviation (36.4-46.3) fL RDW Coeff of Octavio (11.5-14.5) % Anion Gap (3-11) BUN (6-23) mg/dl Creatinine (0.6-1.4) mg/dl BUN/Creatinine Ratio (10-20) Glucose (70-99(Fasting)) mg/dl POC Glucose 305 H* 281 H (70-99) mg/dl Calcium (8.5-10.1) mg/dl PG Care Time/CCT Total # of Minutes Spent Total Time Spent with Patient: Total time spent is greater than 50% in coordination of care (as documented) at patient's floor/unit and/or counseling patient: Coding Level of Care Code 63906 SUB INP/OBS CARE 2/35MIN Diagnoses Sepsis A41.9 Bacteremia due to Gram-positive bacteria R78.81 Acute osteomyelitis of right foot M86.171 Acute metabolic encephalopathy G93.41 CAD (coronary artery disease) I25.10 Coronary Disease-Associated Artery/Lesion type: l[place] artery [place] vs. transplanted heart: l[place] heart Associated angina: without angina Carotid artery stenosis I65.29 Chronic systolic heart failure I50.22 Chronic diastolic heart failure I50.32 Chronic respiratory failure with hypoxia, on home O2 therapy J96.11; Z99.81 Diabetes mellitus type 2, uncontrolled E11.65 Glycemic state: with hyperglycemia Diabetic infection of right foot E11.628; L08.9 End-stage renal disease on hemodialysis N18.6; Z99.2 GERD (gastroesophageal reflux disease) K21.9 Hyperlipidemia E78.5 Hypertension I10 Obstructive sleep apnea G47.33 PAF (paroxysmal atrial fibrillation) I48.0 Presence of arteriovenous fistula for hemodialysis Z99.2 S/P cardiac pacemaker procedure Z95.0 Anemia of chronic disease D63.8 (5) CAD (coronary artery disease) Coronary Disease-Associated Artery/Lesion type: [place] artery [place] vs. transplanted heart: [place] heart Associated angina: without angina Qualified Code(s): I25.10 - Atherosclerotic heart disease of [place] coronary artery without angina pectoris (10) Diabetes mellitus type 2, uncontrolled Glycemic state: with hyperglycemia Qualified Code(s): E11.65 - Type 2 diabetes mellitus with hyperglycemia
[2022-05-16] MEDS: ceFAZolin 1000MG 1,000 MG/7.5 ML SYR IV SCH (16:49)
[2022-05-16] MEDS: ATORVASTATIN 40 MG TAB PO SCH (20:42)
[2022-05-16] MEDS: MONTELUKAST SODIUM 10 MG TABLET PO SCH (20:42)
[2022-05-17 06:10] LABS: Hematocrit (blood only) 27.6 % (42.0-52.0); Hemoglobin 8.6 g/dl (14.0-18.0); Mean Corpuscular Hgb Conc 31.2 g/dL (32.0-36.0); Mean Corpuscular Volume 92.9 fL (80.0-100.0); Mean Platelet Volume 10.7 fL (9.4-12.4); Nucleated RBC # (auto) 0.05 K/uL (0-0.12); Nucleated RBC % (auto) 0.6 %; Platelet Count 223 K/uL (130-400); RDW Standard Deviation 67.8 fL (36.4-46.3); Red Blood Count 2.97 M/uL (4.70-6.10); White Blood Count 8.72 K/ul (4.8-10.8)
[2022-05-17 06:27] LABS: BUN Creatinine Ratio 6.3 (10-20); Creatinine Clr Calc Pharmacy 15.3 ml/min; Est GFR (African American) 10.2 ml/min; Est GFR (Non-African American) 8.8 ml/min
[2022-05-17] MEDS ORDERED: EPOETIN ALFA 20,000 UNITS/ML VIAL IV SCH (07:00)
[2022-05-17] MEDS ORDERED: SODIUM CHLORIDE 0.9% 1000ML 1,000 ML IV PRN (07:00)
[2022-05-17] MEDS: APIXABAN 5 MG TABLET PO SCH (08:16)
[2022-05-17] MEDS: CHOLECALCIFEROL 5,000 UNITS 125 MCG TAB PO SCH (08:16)
[2022-05-17] MEDS: AMIODARONE 200 MG TAB PO SCH (08:17)
[2022-05-17] MEDS: PANTOprazole 40 MG TAB PO SCH (08:17)
[2022-05-17] MEDS: FLUTICASONE/VILANTEROL 100/25MCG 14 PUFFS/INHALER INH SCH (08:17)
[2022-05-17] MEDS: ASPIRIN 81 MG CHEW PO SCH (08:18)
[2022-05-17] MEDS: INSULIN ASPART PER UNIT CHARGE SC SCH ×2 (08:28→13:18)
--- NOTE | 2022-05-17 08:29 | XRay Report ---
SINGLE VIEW CHEST CLINICAL HISTORY: PICC placement. FINDINGS: An AP, portable, upright chest radiograph is compared to study dated 05/14/2022 and correlat ed with chest CT dated 04/07/2021. A right PICC line has been placed. The tip of the catheter is not v isualized. A 3-lead cardiac pacemaker partially obscures the right mid chest. The heart is enlarged n oting atherosclerotic calcification of the thoracic aorta. There is pulmonary vascular congestion. Sc arring/atelectasis is noted at the lung bases. No airspace consolidation or large pleural effusion is identified. No pneumothorax is seen. The skeletal structures are osteopenic. The bony thorax is wm sly intact. IMPRESSION: 1. Cardiomegaly and cardiac pacemaker with evidence of congestive failure. 2. A right PICC line has been placed. The tip of the catheter is not visualized due to overlying pace maker leads. ACT 112: Negative or not required by law. Electronically signed by: Bin Dove M.D. 05/17/2022 8:27 AM
--- NOTE | 2022-05-17 08:47 | Nephrology Progress Note ---
Date of Service May 17, 2022 Assessment & Plan (1) End-stage renal disease on hemodialysis: Plan: * HD today. Orders have been entered into EMR and HD RN notified * Outpatient HD Rx: MWF 4.25 hours Qb 500 Qd 600, 2K 2.5Ca, 139Na, 40HCO3. EDW 103 kg * Normally dialyzes as outpatient at [facility] under the care of Dr. Mojica (2) Anemia of chronic disease: Plan: * Ferritin > 7500 precludes IV iron * Hgb remains stable at ~9.0 * Will provide YOLETTE w/ HD today (3) Presence of arteriovenous fistula for hemodialysis: Plan: * s/p angioplasty with INSTRUCTIONAL SERVICES SPECIALIST by Dr. Mena 04/20 * Currently AVF w/ + bruit (4) Hypertension: Plan: * BP is currently well controlled off all BP medications (continue to hold Amlodipine & HCTZ) (5) Sepsis: Plan: * Osteomyelitis R foot s/p partial excision of 3rd, 4th, 5th metatarsals and excision of R foot wound 05/13/[address] Rust * Group B strep bacteremia (PCN sensitive) - requires total 6 weeks IV Cefazolin Admission and Anticipated Discharge Date Admission Date: May 09, 2022 Subjective Mr. Walker was evaluated in his hospital room this morning. He voices no new medical concerns. Mr. Walker underwent PICC line placement yesterday. He hopes to be discharged to home after HD with a 6 week course of IV Cefazolin Review of Systems Constitutional: no fever Eyes: no problem reported Ear, Nose, Mouth, Throat: no problem reported Respiratory: no dyspnea Cardiovascular: no chest pain and no palpitations Gastrointestinal: no abdominal pain Physical Exam Constitutional: + overweight; not in distress Eyes: PERRL, conjunctivae normal, anicteric sclerae ENMT: external ear and nose normal, oropharynx normal Neck: trachea midline, no thyromegaly Respiratory: normal respiratory effort, lungs clear to auscultation Cardiovascular: RRR, no murmur, no edema Extremities: + AV fistula (L RC AVF + bruit) Neurologic: Speech / Cognition: normal speech and normal cognition Results & Data Vital Signs (Past 12 Hours) Vital Signs Temp Pulse Pulse Pulse Resp BP Pulse Ox 05/17/22 07:48 36.6 C 84 97 H 109/78 96 05/17/22 07:20 70 05/17/22 02:41 36.6 C 71 18 124/78 100 05/16/22 23:28 70 05/16/22 22:56 05/16/22 22:20 37 C 70 18 120/74 96 O2 Del Method 05/17/22 07:48 Room Air 05/17/22 07:20 05/17/22 02:41 CPAP 05/16/22 23:28 05/16/22 22:56 CPAP 05/16/22 22:20 CPAP Laboratory Results Laboratory Tests 05/10/22 05/17/22 05/17/22 05:34 05:42 05:42 WBC 8.72 Hgb 8.6 L Hct 27.6 L Plt Count 223 Sodium 134 L Potassium 4.0 Chloride 98 Carbon Dioxide 23 BUN 41 H Creatinine 6.56 H* D Glucose 264 H Calcium 8.0 L Albumin 3.2 L PG Care Time/CCT Total # of Minutes Spent Total Time Spent with Patient: Total time spent is greater than 50% in coordination of care (as documented) at patient's floor/unit and/or counseling patient: Coding Level of Care Code 64999 SUB INP/OBS CARE 3/50MIN Diagnoses End-stage renal disease on hemodialysis N18.6; Z99.2 Anemia of chronic disease D63.8 Presence of arteriovenous fistula for hemodialysis Z99.2 Hypertension I10 Sepsis A41.9
--- NOTE | 2022-05-17 09:22 | XRay Report ---
XR chest 1V portable CLINICAL HISTORY: PICC Placement TECHNIQUE: Single frontal radiograph of the chest was obtained. Comparison: Comparison is made to chest radiograph 05/17/2022 FINDINGS: Dual lead pacemaker is seen. A right PICC terminates in the lower SVC. Cardiomegaly is noted. The aor tic arch is calcified. Pulmonary vascular prominence has improved from prior exam. No evidence of ple ural effusion or pneumothorax. IMPRESSION: 1. Satisfactory appearance of the right PICC in the lower SVC. 2. There is cardiomegaly with improved pulmonary vascular congestion. ACT 112: Negative or not required by law. Electronically signed by: Ba Lorenz M.D. 05/17/2022 9:19 AM
--- NOTE | 2022-05-17 10:27 | Discharge Summary ---
Date of Service May 17, 2022 Admission HPI Per Admitting Provider Ryan Walker is a 51 yo male with PMHx significant for ESRD on HD (no HD yesterday due to low BP), HFpEF, CAD, HTN, HLD, paroxysmal afib, carotid artery stenosis (<50% bilateral ICA), DM II (last A1c 7.6), anemia, KISHAN, osteomyelitis right foot, AV fistula malfunction in the past, restrictive lung disease, GERD presenting from [place] with Sepsis. Was admitted 04/12/22-04/13/22 at due to SOB secondary to COVID and discharged to home with 5 days Dexamethasone and has been struggling with shortness of breath since per most recent PCP notes. Had been wheezing and using 5L O2 HS with O2 at dialysis in 84-86%. By report, patient couldnt complete dialysis yesterday due to low BP and was sent home w/ low grade fevers but sent back by Home Health to [place] ER for evaluation and found to have Sepsis. He states he completed 4 hours of the 4hr 15 minute treatment but doesn't remember much of yesterday. Declined abx prior to transfer as reporting diarrhea and no bathroom on ambulance. Reported bowel movements 4-5x prior to transfer. He had foot infection, right osteo 12-13wk s/p right 2nd metatarsal resection with Dr Rust 01/31/22, completed course IV abx in February 2022. States dressing removed prior to transfer but he told doc to put one back on but he didn't. He does have a boot and has been NWB by his report. He states he currently feels alright. No significant pain, no present fever/chills, no chest pain. Baseline SOB but not worse than baseline on his chronic oxygen. Discussed with patient holding BP meds for now given hypotension. Denies lightheadedness/dizziness. He does note that his oxygen was only on 2L at but he wears 4L and w/ CPAP and it (BP) improved when they turned it back to 4L. Reporting good appetite at home over past week. At [facility], blood cultures gram positive cocci in chains 4/4 bottles. 91% on 4L. BNP 34800 Patient given Zosyn/Vancomycin. Trop 141--> 106. Lactic 2.9--> 2.8. INR 2.1. WBC 10k. ABG w/ pH 7.58, CO2 39, O2 33.9, HCO3 29.5 BP 92/68 --> 106/60 with 250cc IVF and arrangements made to transfer to [facility] for further eval. Imaging being uploaded -- CT thoracic/CXR. Appears ordered xray of foot but had not been completed. Medications: Tylenol 1g TID, albuterol HFA, Amiodarone 200mg, amlodipine 10mg, eliquis 5mg BID, ASA 81mg, Lipitor 40mg, betamethasone, fluticasone, Vit D 125mcg, HCTZ 25mg BID, omeprazole 20mg, Zofran, montelukast. Insulin He states he would like call to friend Kaycee to verify medications and she has appointment this morning -- call attempted but no answer. Discussed obtaining imaging for eval of his right foot as source of infection/consultation w/ ortho/podiatry pending results. Currently having labs drawn, orthotics technician at bedside for US to eval for any vegetations given + blood cultures. Admission Exam Per Admitting Provider General: chronically ill appearing male sitting up in bed, getting labs drawn, NAD at present HEENT: head normocephalic, atraumatic, dry mm, trachea midline Chest: pacemaker present, no signs of infection RESP: no distress/tachypnea, diminished in the bases, good effort, on baseline 4L via NC CV: regular rate/rhythm, S1/S2, +S4, no pitting edema LE GI: +BS, distended, NONTENDER, no rebound/guarding : no friedman MSK/Neuro/Skin: RIGHT FOOT with ulceration along lateral aspect, necrotic/eschar present, mild edema, pulses diminished but sensation to pressure intact no focal deficit/slurred speech/facial droop Psych: Alert/oriented to person/place but does not remember some of yesterdays events after coming home from HD pleasant and cooperative Principal Diagnosis Sepsis due to gram-positive bacteremia from acute right foot osteomyelitis Discharge Exam General: Awake, conversant, looks older than his stated age Heart: S1, S2/regular rate and rhythm, no murmur rubs or gallops Lungs: Clear to auscultation bilaterally. Normal effort Abdomen: Soft/nontender/nondistended. No hepatosplenomegaly Extremities: No clubbing/cyanosis. No edema. 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 Was found to be bacteremic Was sent to [facility] for escalation of care Patient initially started on vancomycin and Zosyn Source: Right foot osteomyelitis. Blood culture grew group B streptococcus agalactiae. Wound culture also growing group be strep agalactiae as well MSSA TTE did not show any vegetation Hemodynamically stable Lactic acidosis resolved No leukocytosis Infectious disease on board, patient is currently on cefazolin Blood culture from 05/09 negative. PICC line in Plan is to treat with IV cefazolin 1 g daily for 6 weeks (end date 06/24/2022) Patient will follow-up with provider at [facility] to do weekly labs Follow-up with infectious disease will be arranged by the [facility] Follow-up with podiatry will be arranged by the sn[facility] as well (2) Bacteremia due to Gram-positive bacteria: Plan per above (3) Acute osteomyelitis of right foot: Most likely source of sepsis and bacteremia Podiatry and infectious disease on board Status post partial excision of third, fourth, fifth metatarsals and excision of right foot wound on 05/13/[address] Rust Discharge today after dialysis Per ID, plan on IV cefazolin for 6 weeks (4) Acute metabolic encephalopathy: Likely secondary to sepsis Resolved Patient states that he was very lethargic and does not remember anything from the day prior to admission. His mind is now clear and now he is able to hold a conversation. (5) CAD (coronary artery disease): s/p PCI to RCA in 2017. Cath July 2019 w/ patent stent. Follows with Dr Calvillo at [facility] Repeat cardiac cath Mar 2021 for eval showed RCA in-stent restenosis and severe disease involving small, chronically occluded OM3. No intervention performed and medical therapy recommended. No improvement w/ imdur and was to f/u primary cardiology for further med therapy management Not on BB hx orthostatic hypotension/syncope, does not appear to be on EVANGELINA/ARB, presumably due to his ESRD on HD Trop at [facility] 141--> 106. Down to 86 on arrival to [facility]. Most likely secondary t o demand ischemia/myocardial injury related to sepsis Continue ASA, statin Monitor on telemetry (6) Carotid artery stenosis: - Known, <50% bilaterally - Continue ASA (7) Chronic systolic heart failure: Repeat echo 05/09 showed an EF of 35 to 40% with severe hypokinesis to akinesis of the mid inferolateral wall along with severe LVH. Compared to prior echo in 01/17 at [facility], LV and RV systolic function are similar. Not on beta-alesia due to orthostatic hypotension/syncope Not on EVANGELINA/ARB possibly secondary to the same reason Continue outpatient follow-up with fish and wildlife warden at [facility] Dialyzed 05/15 Appears euvolemic today (8) Chronic diastolic heart failure: Hx grade 3 diastolic HF. On baseline 4L recently, did have COVID last month. Dialyzed 05/15. 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 Is chronically anemic though of note. 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 No need for blood transfusion Total Time Total Time Spent Total Time Spent (In Minutes): 35 Discharge Plan Discharge Items Patient Disposition: Transfer Assisted Fac Reason For Visit: SEPSIS / DIALYSIS Discharge Diagnosis: Acute right foot osteomyelitis status post partial amputation Gram-positive bacteremia with sepsis Activity: Resume your previous activity Non-emergency contact: Primary Care Provider Call non-emergency contact if: you have any medication questions and your symptoms worsen Follow-up/Referrals: Kay Veras DO [Primary Care Provider] - Diet: Carb Consistent or DM2 and Dialysis Renal Addtl Attending Provider Instructions: Continue 6 weeks of cefazolin 1 g IV daily from OR 05/13/22 (end date 06/24/22) with weekly CBC with diff, CMP, ESR and CRP. [place] provider to follow patient Advised to follow-up with infectious disease in 1 week Advised to follow-up with podiatry as per plan Pending Studies at Discharge: Yes Studies:: Pathology of the excised bone Stand-Alone Forms: My [facility] Skilled Items Patient informed of condition?: Yes DNR: No Discharge Level of Care: Skilled Communicable Disease: No Discharge Prognosis: Improving Lines: PICC Urinary Catheter: No Medications and DC Order Prescriptions: New cefazolin 1 gram recon soln 1 g IV .qday Qty: 39 0RF Continued miscellaneous medical supply Misc 1 ea miscellaneous DAILY MDD 4 lpm Qty: 1 0RF Rx Instructions: OXYGEN CONSERVING DEVICE J96.11 AND Z99.81 Home fill compatible unit and canisters so he can fill canisters at home. acetaminophen 500 mg capsule 1,000 mg PO TID PRN (Reason: Pain) Qty: 180 1RF Toujeo SoloStar U-300 Insulin 300 unit/mL (1.5 mL) insulin pen 33 unit subcut QAM Qty: 4.5 1RF Patient Comments: Takes at bedtime according to blood sugar. BG less than 130: holds dose BG 130-170: takes half dose BG above 170: takes full dose (33 units) ondansetron HCl 4 mg tablet 4 mg PO Q8H PRN (Reason: nausea and vomiting) Qty: 30 0RF atorvastatin 40 mg tablet 40 mg PO HS Qty: 90 1RF Eliquis 5 mg tablet 5 mg PO BID Qty: 180 1RF amiodarone 200 mg tablet 200 mg PO QAM Qty: 90 1RF cholecalciferol (vitamin D3) 125 mcg (5,000 unit) capsule 125 mcg PO DAILY amlodipine 10 mg tablet 10 mg PO DAILY Qty: 90 1RF Rx Instructions: Per D/C summary from [facility] 02/18/22 Betadine 5 % spray,non-aerosol 1 spray topical .COMPLEX Qty: 88.7 0RF Rx Instructions: 1 spray topically M, W, SUN; DONE WITH WOUND CHANGES PER KAYCEE (HIPAA) Per D/C summary from [facility] 02/18/22 betamethasone valerate 0.1 % cream 1 applic topical BID PRN (Reason: skin irritation) Qty: 15 2RF albuterol sulfate 90 mcg/actuation HFA aerosol inhaler 2 puff inhalation Q6H PRN (Reason: shortness of breath or wheezing) Qty: 18 3RF aspirin 81 mg Tablet,Chewable 81 mg PO QAM hydrochlorothiazide 25 mg Tablet 25 mg PO BID omeprazole 20 mg Tablet,Delayed Release (Dr/Ec) 20 mg PO DAILY fluticasone furoate-vilanterol [Breo Ellipta] 100-25 mcg/dose Blister With Device 1 inh INHALATION DAILY montelukast 10 mg tablet 10 mg PO HS Discontinued (DME) blood sugar diagnostic Strip See Rx Instructions .ROUTE .MEDSUPPLY Qty: 50 3RF Rx Instructions: testing blood sugar twice daily (DME) pen needle, diabetic [Easy Comfort Pen [place]] 31 gauge x 3/16" needle See Rx Instructions .ROUTE .MEDSUPPLY Qty: 100 3RF Rx Instructions: Using with insulin TID (DME) Hospital Bed Homecare Misc See Rx Instructions .Route Qty: 1 0RF Rx Instructions: As directed./[employer] Hospital Bed with Mattress and side rails (DME) FreeCardiOx Eric 14 Day Sensor Kit See Rx Instructions .ROUTE Rx Instructions: As directed Discharge Orders: Discharge Order (Routine); Ordered 05/17/22 Ordered By: Yvan Durbin/Other Patient Handouts: Osteomyelitis Dc Admission Data Admit Date/Time: 05/09/22 09:05 Attending Provider: Yvan Feng Admit Provider: Johny Castorena Primary Care Provider: Kay Veras Other Providers: Johny Castorena ; Julian Hilario ; Edilson Rust ; Holly Hernandez ; Chris Mohan ; Patt Heller ; Anderson Dolan ; Gudelia Gordon ; Cathy Gutierrez ; Mar Lopez ; Harvey Ruiz ; Joanne Cuadra Coding Level of Care Code 32032 INP/OBS DISCH >30 MIN Diagnoses Sepsis A41.9 Bacteremia due to Gram-positive bacteria R78.81 Acute osteomyelitis of right foot M86.171 Acute metabolic encephalopathy G93.41 CAD (coronary artery disease) I25.10 Associated angina: without angina Coronary Disease-Associated Artery/Lesion type: [place] artery [place] vs. transplanted heart: [place] heart Carotid artery stenosis I65.29 Chronic systolic heart failure I50.22 Chronic diastolic heart failure I50.32 Chronic respiratory failure with hypoxia, on home O2 therapy J96.11; Z99.81 Diabetes mellitus type 2, uncontrolled E11.65 Glycemic state: with hyperglycemia Diabetic infection of right foot E11.628; L08.9 End-stage renal disease on hemodialysis N18.6; Z99.2 GERD (gastroesophageal reflux disease) K21.9 Hyperlipidemia E78.5 Hypertension I10 Obstructive sleep apnea G47.33 PAF (paroxysmal atrial fibrillation) I48.0 Presence of arteriovenous fistula for hemodialysis Z99.2 S/P cardiac pacemaker procedure Z95.0 Anemia of chronic disease D63.8
[2022-05-17] MEDS ORDERED: INSULIN ASPART PER UNIT CHARGE SC SCH (16:30)
== END 2022-05-17 14:30 | DRG 853 ==
LOC: 1E 08:53 → SUATTDRO 08:53 → 2E 18:45

== ENCOUNTER 2022-06-28 03:38 | Inpatient (IN) ==
--- NOTE | 2022-06-28 03:48 | History & Physical Report ---
Date of Service June 28, 2022 Assessment & Plan (1) Weakness: Plan: Patient reports overall doing poorly at home over the last several weeks. Generalized weakness, fatigue as well as severe right hip pain. He had two falls at home in the last several weeks - reports no trauma to his right hip. He denies fever, chills, chest pain. He has stable SOB at baseline with chronic hypoxic respiratory failure requiring supplemental O2 - 4L by NC at baseline. He does not report worsening of his respiratory state. Blood pressure has been low. -Search for underlying infection - cultures, ESR, CRP, Lactate and CBC pending -Will hold additional antibiotics for now -Request placed for CD imaging of hip to be uploaded to [facility] -PT/OT evaluation -Fall precautions (2) Diabetes mellitus type 2, uncontrolled: Plan: Longstanding history of DM. Last HgbA1C on 05/02/22=7.6. Hyperglycemia - BSG of 498 at [facility]. He was administered 5u insulin with repeat level of 326. Hyperglycemic here as well with BSG of 376. Patient reports compliance with his insulin at home. However, he has been missing his medications lately due to feeling weak. -Check chemistry to assess for anion gap -Lantus/ISS - goal blood sugar 110-140 -Pharmacy glycemic management consultation appreciated (3) Infection of right foot: Plan: Patient with osteomyelitis of right foot. Bone culture from 05/13/22 POSITIVE for Group B streptococcus. Patient is s/p partial excision of 3rd, 4th and 5th metatarsals and excision of the right foot wound on 05/13/[address] Rust. He completed 6 weeks of IV Ancef with last date being 06/24/22. Patient states that his foot feels fine - no pain at present. He has received Vancomycin and Ceftriaxone at [facility] prior to arrival. -Awaiting lab results - CBC, ESR, CRP, Lactate and Cultures. -Wound Care (4) Cirrhosis of liver with ascites: Plan: With increased abdominal distention since receiving IVF per patient. Abdomen is distended, tympanic, ascites. Non-tender -For HD today -Holding HCTZ due to low BP -Monitor for improvement in ascites following HD. May need paracentesis if persistent. (5) PAF (paroxysmal atrial fibrillation): Plan: Regular rhythm on physical exam. EKG ordered -Continue Amiodarone 200mg po qAM -Continue Apixaban 5mg po BID (6) End-stage renal disease on hemodialysis: Plan: Patient ESRD on HD q M/W/F. Appears volume overloaded at this time. -Awaiting labs -Nephrology consultation appreciated - likely HD in AM (7) CAD (coronary artery disease): Plan: Patient wiht PCI to RCA in 2017. He had a cardiac catheterization in July 2019 with patent stent. Cardiac catheterization March 2021 with in-stent restenosis of the RCA with severe disease, chronically occluded OM3. No acute intervention. Patient on medical management - has been unable to tolerated beta blockers due to hypotension. He follows with Cardiology - Dr. Norton at [facility]. Patient denies chest pain at this time. EKG ordered. -Continue ASA, Atorvastatin (8) GERD (gastroesophageal reflux disease): Plan: Chronic. Stable. Patient on Omeprazole -Protonix 40mg po daily (9) Hyperlipidemia: Plan: Chronic. Stable -Continue Atorvastatin 40mg po qHS (10) Hypertension: Plan: Patient with low blood pressure at present. He has been given 1.5L NSS prior to arrival. Patient is ESRD on HD, Anuric. He is due to receive HD today. Blood pressure presently 82/30 being checked on right forearm -Hold HCTZ and Amlodipine -Closely monitor blood pressure -Will hold off on further IVF for now -Consider Midodrine for BP support Admission and Anticipated Discharge Date Admission Date: June 28, 2022 History of Present Illness Chief Complaint: weakness, fatigue Primary Care Provider: Kay Veras DO Ryan Walker is a 52yo male with multiple medical comorbidities to include ESRD on HD q M/W/F (last full session 06/26/22), DM, KISHAN, CHF, HTN, HLP and Cirrhosis presenting from [facility] with complaint of weakness, fatigue, pain at right PICC line site and hyperglycemia. Patient was recently admitted to [facility] from 05/09/22 - 05/17/22 after presenting with sepsis secondary to right foot osteomyelitis with group B streptococcus bacteremia. Patient had a PICC line placed and was treated with Cefazolin 1gm IV daily x 6 weeks. His antibiotic end date was 06/24/22. Patient reports he received his antibiotics as prescribed with home health and assistance from his significant other. He presented to [facility] on 06/27/22 with complaint of pain at the RUE PICC line as well as non-function of the line. Also with pain in the right hip. He had the PICC line removed. CT of the hip performed which revealed osteoarthritis. He was found to be hyperglycemic with BSG of 498. Also with borderline low BP of 99/51. Patient requested transfer to [facility] as he was just admitted here. Also requires scheduled HD - no dialysis at [facility] Patient reports intermittent dizziness, ongoing weakness. Constipation. Also with baseline SOB. He denies chest pain, nausea, vomiting, diarrhea At [place] received: Vancomycin Ceftriaxone NSS x 1500mL Benadryl 5u insulin Allergies Allergy/AdvReac Type Severity Reaction Status Date / Time codeine AdvReac Mild DELIRIUM,ME Verified 06/28/22 04:17 AN tramadol AdvReac Mild nausea and Verified 06/28/22 04:17 vomiting Home Medications Medication Instructions Recorded Confirmed Type miscellaneous medical supply 1 ea miscellaneous DAILY #1 ea 03/08/21 06/26/22 Rx acetaminophen 500 mg capsule 1,000 mg PO TID PRN Pain #180 caps 11/21/21 06/28/22 Rx montelukast 10 mg tablet 10 mg PO HS 01/25/22 06/28/22 History insulin glargine U-300 conc 300 33 unit (0.11 mL) subcut QAM #4.5 02/22/22 06/28/22 Rx unit/mL (1.5 mL) subcutaneous pen mL (Toujeo SoloStar U-300 Insulin) cholecalciferol (vitamin D3) 125 125 mcg PO DAILY 03/16/22 06/26/22 History mcg (5,000 unit) capsule amiodarone 200 mg tablet 200 mg PO QAM #90 tabs 03/21/22 06/28/22 Rx apixaban 5 mg tablet (Eliquis) 5 mg PO BID #180 tabs 03/21/22 06/28/22 Rx atorvastatin 40 mg tablet 40 mg PO HS #90 tabs 03/21/22 06/28/22 Rx fluticasone furoate 100 1 inh inhalation DAILY 04/04/22 06/28/22 History mcg-vilanterol 25 mcg/dose inhalation powder (Breo Ellipta) hydrochlorothiazide 25 mg tablet 25 mg PO BID 04/04/22 06/28/22 History omeprazole 20 mg tablet,delayed 20 mg PO DAILY 04/04/22 06/28/22 History release albuterol sulfate 90 mcg/actuation 2 puff inhalation Q6H PRN 05/02/22 06/28/22 Rx aerosol inhaler shortness of breath or wheezing #18 grams Hospital Bed Homecare #1 ea 05/25/22 06/26/22 Rx ondansetron 4 mg disintegrating 4 mg PO Q8H PRN nausea and 06/07/22 06/26/22 Rx tablet vomiting #30 tabs betamethasone valerate 0.1 % 1 applic topical BID PRN skin 06/08/22 06/28/22 Rx topical cream irritation #15 grams insulin glulisine U-100 100 4 unit (0.04 mL) subcut ONCE #1 box 06/14/22 06/28/22 Rx unit/mL subcutaneous pen (Apidra SoloStar U-100 Insulin) amlodipine 10 mg tablet 10 mg PO DAILY #90 tabs 06/20/22 06/28/22 Rx aspirin 81 mg chewable tablet 81 mg PO QAM 06/20/22 06/28/22 History ranolazine 500 mg tablet,extended 500 mg PO BID 06/20/22 06/26/22 History release,12 hr Past Med/Surg History Medical History (Updated 06/28/22 @ 05:20 by Taya Randall DO) Acute metabolic encephalopathy Acute on chronic diastolic CHF (congestive heart failure) Anemia of chronic disease Arthritis CAD (coronary artery disease) 08/2015- L Cx stent; 11/2017- RCA stent, L Cx stent patent; 07/2019- LM wnl, prox-mid LAD 30%, mid-L Cx stent patent, RCA stent stent with area between stents 30-40%. Sees [facility], Dr Sharad Norton. 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) Repaired s/p PPV, MP, EL (SNT) Dialysis AV fistula malfunction Dialysis AV fistula malfunction Diverticular disease Elevated troponin End-stage renal disease on hemodialysis ESRD (end stage renal disease) on dialysis dialysis sun-sun-sun is getting dialysis sat prior to colonoscopy 09/29/2019 and will have it again after on sunday09/30/2019 GERD (gastroesophageal reflux disease) History of COVID-19 (12/2020) Hyperkalemia Hyperlipidemia Hypertension Moderate pulmonary hypertension Nuclear sclerosis of both eyes Obstructive sleep apnea cpap on 4L N/C On home oxygen therapy 4L N/C at all times Osteoarthritis, hip, bilateral Pleural effusion, bilateral 11/2018 Pneumonia Presence of arteriovenous fistula for hemodialysis left forearm Secondary pulmonary hypertension Status post placement of implantable loop recorder (07/07/21) Vitreous hemorrhage of right eye due to diabetes mellitus (12/04/18) Surgical History History of cardiac cath X 2 - 11/2017 - [facility] - SOB - 1 stent placed - follows w/ Dr. Zuniga - 2015 - [facility] SOB - 1 stent placed History of colonoscopy History of foot surgery left x 4 History of heart artery stent X2 History of placement of chest tube left lung for pleural effusion 11/2018 History of tooth extraction all teeth S/P arteriovenous (AV) fistula creation 04/2016 Dr. Mena placed S/P AV sera ablation (01/18/22) S/P bilateral cataract extraction (05/2021) S/P cardiac catheterization Dr. Sharad Calvillo at [facility]- 01/09/22 S/P cardiac pacemaker procedure (01/18/22) secondary to symptomatic bradycardia Status post amputation of toe (12/29/21) R 2nd toe d/t infection Status post amputation of toe of right foot (01/27/22) metatarsal resection R toe 2-5 d/t osteomyelitis/gangrene Family History Mother Diabetes Coronary heart disease Heart disease Hypertension Stroke Father Diabetes Coronary heart disease Heart disease Myocardial infarction Hypertension Stroke Other Kidney disease No family history of adverse response to anesthesia Denies family history of Ovarian cancer Prostate cancer Breast cancer Lung cancer Colorectal cancer Social History Smoking Status: Never smoker Second Hand Exposure: No; Do You Dip or Chew Tobacco: No; Hx Alcohol Use: No Hx Substance Use: No Preferred Language: Nauruan Communication Ability: Effective Communication Ability Comment: significant otherKaycee speaks and writes/read Nauruan well Visual Impairment: No Limitations Hearing Ability: Normal Facing End Trimmer Required: No Beliefs That Will Affect Care: None marital status: Single Current Living Situation: Significant Other Current Living Situation Comment: lives with significant other near [place] current occupational status: disabled How many Children do You have: 0 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 Feels Safe at Home: Yes Childhood Exposure to Second-Hand Smoke: Yes Diet: regular Diet Comment: regular caffeine: No during the past year weight has: remained stable Dental Care, Regularly: No Physical Activity Frequency: 1-2 Times per Week Physical Activity Frequency Comment: walk Seatbelt Use: always Sunscreen Use: No Assistive Devices: BiPap, Cane, Crutches, Glasses, Hospital Bed, Oxygen - Continuous, Walker, Wheelchair and Other Review of Systems Review of Systems: All systems reviewed & are unremarkable except as noted in HPI & below Physical Exam Physical Exam: General: chronically ill appearing male, NAD, AA&O x 4 Skin: multiple lesions on bilateral LE with eschar, biopsy site on medial left leg with dressing in place HEENT: NC/AT, PERRL, EOMI, anicteric sclera, conjunctiva without injection, external ear normal to inspection and nontender, nares patent, slightly dry mucus membranes, dentition intact, no oropharyngeal lesions, neck supple, trachea midline, no LAD, no thyromegaly, no JVD Heart: +S1/S2, regular, no m/r/g Lungs: equal air entry bilaterally, diminished bases, no rales/rhonchi/wheezes Abd: +BS, soft, distended with bulging flanks, no masses/organomegaly Ext: RLE with dressing in place, LLE with bandage on tran, scattered pustules and lesions on bilateral LE with eschar, no active bleeding or evidence of secondary infection Midline catheter present RUE, AV fistula LUE with palpable thrill Neuro: nonfocal, patient AA&O x 4, speech intact, no facial droop, moving all extremities on command with equal strength 5/5 Results & Data Results & Data Vital Signs (Past 12 Hours) Vital Signs Height Weight Blood Pressure Blood Pressure Position Temperature Temperature Source Pulse Rate 5 ft 7 in 108.7 kg 82/30 L Lying 36.4 C L Oral 71 05/03/23 04:35 06/28/22 04:35 06/28/22 04:22 06/28/22 04:22 06/28/22 04:22 06/28/22 04:22 06/28/22 04:22 Respiratory Rate Pulse Oximetry Oxygen Flow Rate 22 92 4 06/28/22 04:22 06/28/22 04:22 06/28/22 04:22 Laboratory Results Significant lab results from outside facility: [id number] BUN=56.2 Cr=6.75 Mh=581 K=5.5 PX=815 CRP=10.8 ESR=75 Lactate=[address] of the Hip performed: Mild to moderate right hip joint osteoarthritis. Moderate amount of ascites in the pelvis PG Care Time/CCT Total # of Minutes Spent Total Time Spent with Patient: Total time spent is greater than 50% in coordination of care (as documented) at patient's floor/unit and/or counseling patient: Coding Level of Care Code 01988 INT INP/OBS CARE 3/75MIN Diagnoses Weakness R53.1 Diabetes mellitus type 2, uncontrolled E11.65 Glycemic state: with hyperglycemia Infection of right foot L08.9 Cirrhosis of liver with ascites K74.60; R18.8 PAF (paroxysmal atrial fibrillation) I48.0 End-stage renal disease on hemodialysis N18.6; Z99.2 CAD (coronary artery disease) I25.10 Associated angina: without angina Coronary Disease-Associated Artery/Lesion type: [place] artery [place] vs. transplanted heart: [place] heart GERD (gastroesophageal reflux disease) K21.9 Hyperlipidemia E78.5 Hypertension I10 (2) Diabetes mellitus type 2, uncontrolled Glycemic state: with hyperglycemia Qualified Code(s): E11.65 - Type 2 diabetes mellitus with hyperglycemia (7) CAD (coronary artery disease) Associated angina: without angina Coronary Disease-Associated Artery/Lesion type: [place] artery [place] vs. transplanted heart: [place] heart Qualified Code(s): I25.10 - Atherosclerotic heart disease of [place] coronary artery without angina pectoris
[2022-06-28] MEDS ORDERED: POLYETHYLENE (MIRALAX) 17 GM PACK PO PRN (04:08)
[2022-06-28] MEDS ORDERED: ONDANSETRON INJ 2 MG/ML 2 ML VIAL IV PRN (04:08)
[2022-06-28] MEDS ORDERED: DOCUSATE SODIUM 100 MG CAP PO PRN (04:08)
[2022-06-28] MEDS ORDERED: ALBUTEROL HFA 8 GM INHALER INH PRN (04:24)
[2022-06-28] MEDS ORDERED: DEXTROSE 50% 50 ML SYRINGE IV PRN (04:26)
[2022-06-28] MEDS ORDERED: GLUCAGON FOR INJ 1 MG VIAL SQ PRN (04:26)
[2022-06-28] MEDS ORDERED: GLUCOSE 10 TAB/TUBE PO PRN (04:26)
[2022-06-28] MEDS ORDERED: GLUCOSE 40% GEL 15 GM TUBE PO PRN (04:26)
[2022-06-28] MEDS ORDERED: CARBOHYDRATES FOR HYPOGLYCEMIA PO PRN (04:26)
[2022-06-28] MEDS ORDERED: PHARMACY GLYCEMIC MGMT CONSULT PRN (04:29)
[2022-06-28] MEDS: INSULIN ASPART PER UNIT CHARGE SC SCH ×5 (04:59→21:06)
[2022-06-28] MEDS ORDERED: SODIUM CHLORIDE 0.9% 1000ML 250 ML IV ONE (05:32)
[2022-06-28 05:38] LABS: Basophils # (auto) 0.09 K/uL (0-0.2); Basophils % (auto) 0.9 %; Eosinophils # (auto) 0.03 K/uL (0-0.50); Eosinophils % (auto) 0.3 %; Hematocrit (blood only) 34.2 % (42.0-52.0); Hemoglobin 10.5 g/dl (14.0-18.0); Immature Granulocytes # (auto) 0.03 K/uL (0.01-0.20); Immature Granulocytes % (auto) 0.3 %; Lymphocytes # (auto) 0.79 K/uL (1.2-3.4); Lymphocytes % (auto) 7.7 %; Mean Corpuscular Hemoglobin 27.9 pg (25.0-34.0); Mean Corpuscular Hgb Conc 30.7 g/dL (32.0-36.0); Mean Corpuscular Volume 90.7 fL (80.0-100.0); Mean Platelet Volume 11.4 fL (9.4-12.4); Monocytes # (auto) 0.76 K/uL (0.11-0.59); Monocytes % (auto) 7.4 %; Neutrophils # (auto) 8.53 K/uL (1.40-6.50); Neutrophils % (auto) 83.4 %; Nucleated RBC # (auto) 0.02 K/uL (0-0.12); Nucleated RBC % (auto) 0.2 %; Platelet Count 246 K/uL (130-400); RDW Coefficient of Variation 18.9 % (11.5-14.5); RDW Standard Deviation 62.1 fL (36.4-46.3); Red Blood Count 3.77 M/uL (4.70-6.10); White Blood Count 10.23 K/ul (4.8-10.8)
[2022-06-28 05:46] LABS: Alanine Aminotransferase < 3 U/L (7-52); Albumin Level 3.2 gm/dl (3.4-5.0); Alkaline Phosphatase 155 U/L (34-104); Anion Gap 20 (3-11); Aspartate Aminotransferase 20 U/L (13-39); BUN Creatinine Ratio 9.3 (10-20); Bilirubin Direct 0.1 mg/dl (0-0.2); Bilirubin,Total 0.7 mg/dl (0.2-1.0); Blood Urea Nitrogen 64 mg/dl (6-23); C Reactive Protein 11.19 mg/dl (0-0.5); Calcium 8.4 mg/dl (8.6-10.3); Carbon Dioxide 25 mmol/L (21-32); Chloride 86 mmol/L (98-107); Creatinine Clr Calc Pharmacy 14.3 ml/min; Est GFR (African American) 9.6 ml/min; Est GFR (Non-African American) 8.3 ml/min; Glucose 339 mg/dl (70-99(Fasting)); Magnesium 1.7 mg/dl (1.7-2.4); Phosphorus 7.5 mg/dl (2.5-4.9); Potassium 5.7 mmol/L (3.5-5.1); Sodium 131 mmol/L (136-145)
[2022-06-28] MEDS ORDERED: PIPERACILLIN/TAZOBACTAM 4.5 GM in DEXTROSE 5% 100 ML IV ONE (06:00)
--- NOTE | 2022-06-28 07:26 | XRay Report ---
XR chest 1V portable HISTORY: Dyspnea. COMPARISON: Chest 05/17/2022. FINDINGS: The tip of the right PICC is difficult to visualize due to overlying pacemaker wires but ap pears to terminate at the expected location of the SVC. The heart is enlarged. This remains unchanged . No pneumothorax. No pleural effusions. There is mild central pulmonary vascular congestion without overt edema. This is similar to the prior study. Mild elevation of the right hemidiaphragm, unchanged . IMPRESSION: 1. Cardiomegaly and mild pulmonary vascular congestion again noted. 2. The right PICC appears to terminate at the SVC. ACT 112: Negative or not required by law. Electronically signed by: Erwin Mitchell M.D. 06/28/2022 7:25 AM
--- NOTE | 2022-06-28 08:17 | Hospitalist Progress Note ---
Date of Service June 28, 2022 Assessment & Plan (1) Weakness: Plan: Patient reports overall doing poorly at home over the last several weeks. Recently admitted 05/09- 05/17 for sepsis w/ bacteremia (group B strep) 2nd to osteomyelitis infection of his RIGHT foot (reports ongoing drainage to me on exam) Sx of generalized weakness, fatigue as well as severe right hip pain with reports of falling x 2 in the past several weeks. Apparently CT hip imaging negative at outside facility Req for CD/imaging uploaded to [employer] On 4L O2 chronically - currently up to 5L Lactic 4.1--> 3.7 --> 2.7 Messaged Nephrology this morning given anion gap 20, K 5.7 --> HD for today but did not pull off additional IVF (BNP elevated 2533, but was 3842 last admission) ESR 67 (prior41), CRP 11.19 (prior 21) Procal 1.62 (prior 13.7) Podiatry consulted, Dr Rust --> discussed w/ provider today given concerns for infection. Req 3 phase bone scan for further eval Discussed w/ pharmacy and will place on broad spectrum abx w/ Vanco/Zosyn for now Will consult ID for AM Cx ordered if has any further drainage (none on exam at present but did report STONER HAND) Cdiff testing given longstanding abx recently for osteomyelitis 2nd to right foot infection Monitor labs in AM Fall precautions in place, PT/OT evals (2) Diabetes mellitus type 2, uncontrolled: Plan: Longstanding history of DM. Most recent A1c 7.6 BSG was 498 at [place], given 5u insulin w/ repeat BSG 326 Was 376 on arrival (reports compliance at home but has missed some lately due to feeling poorly) Pharmacy consulted for glycemic management Given lantus 10u SC this morning, and scheduled daily Reporting feeling hypoglycemic up in HD --> RN to come check sugar w/ glucometer not available up in HD unit. Will adjust regimen pending levels, to provide snack in meantime and will touch base w/ pharmacy for adjustments (3) Infection of right foot: Plan: Patient with osteomyelitis of right foot. Bone culture from 05/13/22 POSITIVE for Group B streptococcus. Pt s/p partial excision of 3rd, 4th and 5th metatarsals and excision of the right foot wound on 05/13/[address] Rust. Reportedly he completed 6 weeks IV ancef, last date 06/24 but he had drainage at home Given Vanco/Ceftriaxone at [facility] on BROAD spectrum IV abx as above Monitor cxs, surface/deep cx if able to obtain Podiatry on consul Planning bone scan as above for further eval (4) Cirrhosis of liver with ascites: Plan: With increased abdominal distention since receiving IVF per patient. Abdomen is distended, tympanic, ascites. Non-tender HD for today as above Holding HCTZ due to low BPs, improving w/ HD Consideration for paracentesis if persistant needs (5) PAF (paroxysmal atrial fibrillation): Plan: Regular rhythm on physical exam. EKG ordered Continue Amiodarone 200mg po qAM Continue Apixaban 5mg po BID ?switching to different agent given anemia/cirrhosis. will discuss w/ patient (6) End-stage renal disease on hemodialysis: Plan: Patient ESRD on HD q M/W/. Appears volume overloaded at this time. Nephrology consultation appreciated - likely HD in AM discussed /w nephrology and patient below his EBW and did not feel overloaded at this time and next HD planned for Sunday (7) CAD (coronary artery disease): Plan: Patient wiht PCI to RCA in 2017. He had a cardiac catheterization in July 2019 with patent stent. Cardiac catheterization March 2021 with in-stent restenosis of the RCA with severe disease, chronically occluded OM3. No acute intervention. Patient on medical management - has been unable to tolerated beta blockers due to hypotension. He follows with Cardiology - Dr. Norton at [facility]. Patient denies chest pain at this time. EKG ordered. -Continue ASA, Atorvastatin (8) GERD (gastroesophageal reflux disease): Plan: Chronic. Stable. Patient on Omeprazole -Protonix 40mg po daily (9) Hyperlipidemia: Plan: Chronic. Stable -Continue Atorvastatin 40mg po qHS (10) Hypertension: Plan: Patient with low blood pressure at present. He has been given 1.5L NSS prior to arrival. Patient is ESRD on HD, Anuric. He is due to receive HD today. Blood pressure presently 82/30 being checked on right forearm -Hold HCTZ and Amlodipine -Closely monitor blood pressure -Will hold off on further IVF for now -Consider Midodrine for BP support BPs improving w/ HD -- consider restarting the amlodipine in AM +/- HCTZ Admission and Anticipated Discharge Date Admission Date: June 28, 2022 Supervising Physician Co-Signing Physician Notes The patient was not seen by me. The chart was reviewed. Case was discussed with MARK Godwin. Agree with assessment and plan Subjective evaluated this afternoon up in HD, currently 49minutes left of session. not pulling any fluid off at current but correcting for his electrolyte imbalance/anion gap. He is currently short of breath, slightly above his baseline but not as bad as this morning. He is shaky and feeling like he is getting chills. States he is unsure duration/timing for his antibiotics, but discussed resuming such given concerns for infection, primarily to his right foot. He notes he has had some occasional purulent drainage despite recent surgery/antibiotics. Podiatry on consult and following -- discussed 3 phase bone scan. RN to check glucose as well -- he notes he got long and short acting. States he saw dermatology earlier this week who did something like a "punch" biopsy and he was to get results in a week. Physical Exam Physical Exam: General: WD chronically ill appearing male laying flat during dialysis, NAD but appears slightly uncomfortable appearing HEENT: head normocephalic, atraumatic, slightly dry mm, trachea midline, thick neck Resp: slightly short of breath with conversation, not tachypneic at present, on 5L NC, diminished in the bases, no obvious wheezing on exam CV: RRR, ?S4, no pitting edema GI: +BS (slightly hypoactive), distension, nontender/no rebound : no friedman MSK/Neuro: follows commands, no slurred speech/facial droop RLE w/ dressing intact, dusky appearance to toes, eschar b/l LE w/ crusted pustules/eschar, no active drainage, L anterior recent site of punch biopsy, covered w/ kerlix Psych: AOx3 Results & Data Results & Data Vital Signs (Past 12 Hours) Vital Signs Temp Pulse Pulse Resp BP Pulse Ox O2 Del Method 06/28/22 07:41 36.6 C 71 20 94/29 L 94 Nasal Cannula 06/28/22 07:30 70 06/28/22 05:56 70 06/28/22 05:44 72 18 91 Nasal Cannula 06/28/22 05:21 70 83/30 L 92 Nasal Cannula 06/28/22 05:03 Nasal Cannula 06/28/22 05:03 36.4 C L 71 22 82/30 L 92 Nasal Cannula 06/28/22 04:22 36.4 C L 71 22 82/30 L 92 Nasal Cannula O2 Flow Rate 06/28/22 07:41 5 06/28/22 07:30 06/28/22 05:56 06/28/22 05:44 5 06/28/22 05:21 5 06/28/22 05:03 4 06/28/22 05:03 4 06/28/22 04:22 4 Laboratory Results 06/28/22 06/28/22 06/28/22 Range/Units Unknown 07:59 04:53 WBC (4.8-10.8) K/ul RBC (4.70-6.10) M/uL Hgb (14.0-18.0) g/dl Hct (42.0-52.0) % MCV (80.0-100.0) fL MCH (25.0-34.0) pg MCHC (32.0-36.0) g/dL RDW Std Deviation (36.4-46.3) fL RDW Coeff of Octavio (11.5-14.5) % Plt Count (130-400) K/uL MPV (9.4-12.4) fL Immature Gran % (Auto) % Neut % (Auto) % Lymph % (Auto) % [place] % (Auto) % Eos % (Auto) % Baso % (Auto) % Neut # (Auto) (1.40-6.50) K/uL Lymph # (Auto) (1.2-3.4) K/uL [place] # (Auto) (0.11-0.59) K/uL Eos # (Auto) (0-0.50) K/uL Baso # (Auto) (0-0.2) K/uL Immature Gran # (Auto) (0.01-0.20) K/uL Absolute Nucleated RBC (0-0.12) K/uL Nucleated RBC % (auto) % ESR 67 H (0-20) mm/hr Sodium (136-145) mmol/L Potassium (3.5-5.1) mmol/L Chloride (98-107) mmol/L Carbon Dioxide (21-32) mmol/L Anion Gap (3-11) BUN (6-23) mg/dl Creatinine (0.6-1.4) mg/dl Est Cr Clr Drug Dosing ml/min Est GFR ( Amer) ml/min Est GFR (Non-Af Amer) ml/min BUN/Creatinine Ratio (10-20) Glucose (70-99(Fasting)) mg/dl POC Glucose 294 H (70-99) mg/dl Lactate (0.4-2.0) mmol/L Calcium (8.6-10.3) mg/dl Phosphorus (2.5-4.9) mg/dl Magnesium (1.7-2.4) mg/dl Total Bilirubin (0.2-1.0) mg/dl Direct Bilirubin (0-0.2) mg/dl AST (13-39) U/L ALT (7-52) U/L Alkaline Phosphatase (34-104) U/L C-Reactive Protein (0-0.5) mg/dl Total Protein (6.0-8.3) gm/dl Albumin (3.4-5.0) gm/dl Nasal Screen MRSA (PCR) Negative (Negative) 06/28/22 06/28/22 06/28/22 Range/Units 04:53 04:53 04:53 WBC 10.23 (4.8-10.8) K/ul RBC 3.77 L (4.70-6.10) M/uL Hgb 10.5 L (14.0-18.0) g/dl Hct 34.2 L (42.0-52.0) % MCV 90.7 (80.0-100.0) fL MCH 27.9 (25.0-34.0) pg MCHC 30.7 L (32.0-36.0) g/dL RDW Std Deviation 62.1 H (36.4-46.3) fL RDW Coeff of Octavio 18.9 H (11.5-14.5) % Plt Count 246 (130-400) K/uL MPV 11.4 (9.4-12.4) fL Immature Gran % (Auto) 0.3 % Neut % (Auto) 83.4 % Lymph % (Auto) 7.7 % [place] % (Auto) 7.4 % Eos % (Auto) 0.3 % Baso % (Auto) 0.9 % Neut # (Auto) 8.53 H (1.40-6.50) K/uL Lymph # (Auto) 0.79 L (1.2-3.4) K/uL [place] # (Auto) 0.76 H (0.11-0.59) K/uL Eos # (Auto) 0.03 (0-0.50) K/uL Baso # (Auto) 0.09 (0-0.2) K/uL Immature Gran # (Auto) 0.03 (0.01-0.20) K/uL Absolute Nucleated RBC 0.02 (0-0.12) K/uL Nucleated RBC % (auto) 0.2 % ESR (0-20) mm/hr Sodium 131 L (136-145) mmol/L Potassium 5.7 H (3.5-5.1) mmol/L Chloride 86 L (98-107) mmol/L Carbon Dioxide 25 (21-32) mmol/L Anion Gap 20 H (3-11) BUN 64 H (6-23) mg/dl Creatinine 6.88 H* (0.6-1.4) mg/dl Est Cr Clr Drug Dosing 14.3 ml/min Est GFR ( Amer) 9.6 ml/min Est GFR (Non-Af Amer) 8.3 ml/min BUN/Creatinine Ratio 9.3 L (10-20) Glucose 339 H* (70-99(Fasting)) mg/dl POC Glucose (70-99) mg/dl Lactate 4.1 H* (0.4-2.0) mmol/L Calcium 8.4 L (8.6-10.3) mg/dl Phosphorus 7.5 H (2.5-4.9) mg/dl Magnesium 1.7 (1.7-2.4) mg/dl Total Bilirubin 0.7 (0.2-1.0) mg/dl Direct Bilirubin 0.1 (0-0.2) mg/dl AST 20 (13-39) U/L ALT < 3 L (7-52) U/L Alkaline Phosphatase 155 H (34-104) U/L C-Reactive Protein 11.19 H (0-0.5) mg/dl Total Protein 7.0 (6.0-8.3) gm/dl Albumin 3.2 L (3.4-5.0) gm/dl Nasal Screen MRSA (PCR) (Negative) 06/28/22 Range/Units 03:52 WBC (4.8-10.8) K/ul RBC (4.70-6.10) M/uL Hgb (14.0-18.0) g/dl Hct (42.0-52.0) % MCV (80.0-100.0) fL MCH (25.0-34.0) pg MCHC (32.0-36.0) g/dL RDW Std Deviation (36.4-46.3) fL RDW Coeff of Octavio (11.5-14.5) % Plt Count (130-400) K/uL MPV (9.4-12.4) fL Immature Gran % (Auto) % Neut % (Auto) % Lymph % (Auto) % [place] % (Auto) % Eos % (Auto) % Baso % (Auto) % Neut # (Auto) (1.40-6.50) K/uL Lymph # (Auto) (1.2-3.4) K/uL [place] # (Auto) (0.11-0.59) K/uL Eos # (Auto) (0-0.50) K/uL Baso # (Auto) (0-0.2) K/uL Immature Gran # (Auto) (0.01-0.20) K/uL Absolute Nucleated RBC (0-0.12) K/uL Nucleated RBC % (auto) % ESR (0-20) mm/hr Sodium (136-145) mmol/L Potassium (3.5-5.1) mmol/L Chloride (98-107) mmol/L Carbon Dioxide (21-32) mmol/L Anion Gap (3-11) BUN (6-23) mg/dl Creatinine (0.6-1.4) mg/dl Est Cr Clr Drug Dosing ml/min Est GFR ( Amer) ml/min Est GFR (Non-Af Amer) ml/min BUN/Creatinine Ratio (10-20) Glucose (70-99(Fasting)) mg/dl POC Glucose 376 H* (70-99) mg/dl Lactate (0.4-2.0) mmol/L Calcium (8.6-10.3) mg/dl Phosphorus (2.5-4.9) mg/dl Magnesium (1.7-2.4) mg/dl Total Bilirubin (0.2-1.0) mg/dl Direct Bilirubin (0-0.2) mg/dl AST (13-39) U/L ALT (7-52) U/L Alkaline Phosphatase (34-104) U/L C-Reactive Protein (0-0.5) mg/dl Total Protein (6.0-8.3) gm/dl Albumin (3.4-5.0) gm/dl Nasal Screen MRSA (PCR) (Negative) PG Care Time/CCT Total # of Minutes Spent Total Time Spent with Patient: Total time spent is greater than 50% in coordination of care (as documented) at patient's floor/unit and/or counseling patient: Coding Level of Care Code None Diagnoses Weakness R53.1 Diabetes mellitus type 2, uncontrolled E11.65 Glycemic state: with hyperglycemia Infection of right foot L08.9 Cirrhosis of liver with ascites K74.60; R18.8 PAF (paroxysmal atrial fibrillation) I48.0 End-stage renal disease on hemodialysis N18.6; Z99.2 CAD (coronary artery disease) I25.10 Associated angina: without angina Coronary Disease-Associated Artery/Lesion type: [place] artery [place] vs. transplanted heart: [place] heart GERD (gastroesophageal reflux disease) K21.9 Hyperlipidemia E78.5 Hypertension I10 (2) Diabetes mellitus type 2, uncontrolled Glycemic state: with hyperglycemia Qualified Code(s): E11.65 - Type 2 diabetes mellitus with hyperglycemia (7) CAD (coronary artery disease) Associated angina: without angina Coronary Disease-Associated Artery/Lesion type: [place] artery [place] vs. transplanted heart: [place] heart Qualified Code(s): I25.10 - Atherosclerotic heart disease of [place] coronary artery without angina pectoris
[2022-06-28] MEDS ORDERED: INSULIN HUMAN REGULAR PER UNIT 5 UNITS in SYRINGE 4.95 ML IV ONE (08:30)
[2022-06-28 08:48] LABS: Base Excess VBG 1.8 mEq/L; HCO3 VBG 28 mmol/L; Oxygen Saturation VBG < 60.0 %; PCO2 VBG 48 mmHg (38-50); PO2 VBG 29 mmHg; pH VBG 7.37 (7.36-7.41)
[2022-06-28] MEDS ORDERED: LANTUS PER UNIT CHARGE SQ SCH ×2 (09:00)
[2022-06-28] MEDS ORDERED: MAGNESIUM SULFATE / D5W 1 GM/100 ML BAG IV ONE (09:16)
--- NOTE | 2022-06-28 09:19 | Nephrology Consultation ---
Date of Consultation June 28, 2022 Assessment & Plan (1) End-stage renal disease on hemodialysis: * SBP this morning > 100 mm Hg, clinically euvolemic, K 5.7 * Will provide HD today to correct hyperkalemia, no UF * Outpatient HD orders: MWF x 4.25 hours at Qb 500 and Qd 600 2K 2.5Ca 139Na 40HCO3, heparin 2000 unit bolus and 1000 per hour. EDW 103 kg (2) Weakness: * Patient reports fall at home, hip discomfort. Imaging reported to be negative for fracture by admitting service * Monitor for infection, await blood culture results * Physical therapy evaluation (3) Anemia: * Hgb 10.5 * Will administer YOLETTE w/ HD today (4) Diabetes mellitus type 2, uncontrolled: * Poor adherence with insulin therapy at home due to weakness * Primary service has started insulin and provided 1 L IVF History of Present Illness Reason for Consultation: ESKD on HD Attending Physician: Hood Hendricks MD History of Present Illness Mr. Walker is a 52 year old white male who is seen at the request of the [facility] to provide dialysis during his hospitalization and assist w/ medical management. Medical records in the EMR were reviewed today and are summarized as follows: Mr. Walker's medical history is significant for AODM, HTN, hyperlipidemia, ASCVD s/p stenting x 2, KISHAN, former smoker on O2 at 2L/min NC, bilateral pleural effusions requiring Pleur-x catheter drainage in the past, restrictive lung disease w/ pulmonary HTN, and atrial fibrillation s/p pacemaker placement. He started HD in 2018. Initially he was a patient of Dr. Hendrickson at the [facility] HD unit. Currently he is a patient of Dr. Josh Mojica and dialyzes at the [facility] HD unit in [place], [place] ([phone]). Outpatient HD orders - MWF x 4.25 hours at Qb 500 and Qd 600 2K 2.5Ca 139Na 40HCO3, heparin 2000 unit bolus and 1000 per hour. EDW 103 kg. Mr. Walker was last hospitalized at [facility] 05/09/22-05/17/22 due to osteomyelitis. He underwent amputation or 3rd, 4th, 5th metatarsal of R foot, debridement of R foot ulcer and has completed 6 weeks of IV antibiotic therapy. He presented to [facility] yesterday for evaluation of weakness, hyperglycemia and pain at R PICC line site. He was transferred to [facility] for inpatient dialysis and ongoing medical management. Allergies Allergy/AdvReac Type Severity Reaction Status Date / Time codeine AdvReac Mild DELIRIUM,ME Verified 06/28/22 04:17 AN tramadol AdvReac Mild nausea and Verified 06/28/22 04:17 vomiting Home Medications Medication Instructions Recorded Confirmed Type miscellaneous medical supply 1 ea miscellaneous DAILY #1 ea 03/08/21 06/26/22 Rx acetaminophen 500 mg capsule 1,000 mg PO TID PRN Pain #180 caps 11/21/21 06/28/22 Rx montelukast 10 mg tablet 10 mg PO HS 01/25/22 06/28/22 History insulin glargine U-300 conc 300 33 unit (0.11 mL) subcut QAM #4.5 02/22/22 06/28/22 Rx unit/mL (1.5 mL) subcutaneous pen mL (Toujeo SoloStar U-300 Insulin) cholecalciferol (vitamin D3) 125 125 mcg PO DAILY 03/16/22 06/26/22 History mcg (5,000 unit) capsule amiodarone 200 mg tablet 200 mg PO QAM #90 tabs 03/21/22 06/28/22 Rx apixaban 5 mg tablet (Eliquis) 5 mg PO BID #180 tabs 03/21/22 06/28/22 Rx atorvastatin 40 mg tablet 40 mg PO HS #90 tabs 03/21/22 06/28/22 Rx fluticasone furoate 100 1 inh inhalation DAILY 04/04/22 06/28/22 History mcg-vilanterol 25 mcg/dose inhalation powder (Breo Ellipta) hydrochlorothiazide 25 mg tablet 25 mg PO BID 04/04/22 06/28/22 History omeprazole 20 mg tablet,delayed 20 mg PO DAILY 04/04/22 06/28/22 History release albuterol sulfate 90 mcg/actuation 2 puff inhalation Q6H PRN 05/02/22 06/28/22 Rx aerosol inhaler shortness of breath or wheezing #18 grams Hospital Bed Homecare #1 ea 05/25/22 06/26/22 Rx ondansetron 4 mg disintegrating 4 mg PO Q8H PRN nausea and 06/07/22 06/26/22 Rx tablet vomiting #30 tabs betamethasone valerate 0.1 % 1 applic topical BID PRN skin 06/08/22 06/28/22 Rx topical cream irritation #15 grams insulin glulisine U-100 100 4 unit (0.04 mL) subcut ONCE #1 box 06/14/22 06/28/22 Rx unit/mL subcutaneous pen (Apidra SoloStar U-100 Insulin) amlodipine 10 mg tablet 10 mg PO DAILY #90 tabs 06/20/22 06/28/22 Rx aspirin 81 mg chewable tablet 81 mg PO QAM 06/20/22 06/28/22 History ranolazine 500 mg tablet,extended 500 mg PO BID 06/20/22 06/26/22 History release,12 hr Patient History Medical History Acute metabolic encephalopathy Acute on chronic diastolic CHF (congestive heart failure) Anemia of chronic disease Arthritis CAD (coronary artery disease) 08/2015- L Cx stent; 11/2017- RCA stent, L Cx stent patent; 07/2019- LM wnl, prox-mid LAD 30%, mid-L Cx stent patent, RCA stent stent with area between stents 30-40%. Sees [facility], Dr Sharad Norton. 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) Repaired s/p PPV, MP, EL (SNT) Dialysis AV fistula malfunction Dialysis AV fistula malfunction Diverticular disease Elevated troponin End-stage renal disease on hemodialysis ESRD (end stage renal disease) on dialysis dialysis sun-sun-sun is getting dialysis sat prior to colonoscopy 09/29/2019 and will have it again after on sunday09/30/2019 GERD (gastroesophageal reflux disease) History of COVID-19 (12/2020) Hyperkalemia Hyperlipidemia Hypertension Moderate pulmonary hypertension Nuclear sclerosis of both eyes Obstructive sleep apnea cpap on 4L N/C On home oxygen therapy 4L N/C at all times Osteoarthritis, hip, bilateral Pleural effusion, bilateral 11/2018 Pneumonia Presence of arteriovenous fistula for hemodialysis left forearm Secondary pulmonary hypertension Status post placement of implantable loop recorder (07/07/21) Vitreous hemorrhage of right eye due to diabetes mellitus (12/04/18) Surgical History History of cardiac cath X 2 - 11/2017 - [facility] - SOB - 1 stent placed - follows w/ Dr. Hollis or - 2016 - [facility] - SOB - 1 stent placed History of colonoscopy History of foot surgery left x 4 History of heart artery stent X2 History of placement of chest tube left lung for pleural effusion 11/2018 History of tooth extraction all teeth S/P arteriovenous (AV) fistula creation 04/2016 Dr. Mena placed S/P AV sera ablation (01/18/22) S/P bilateral cataract extraction (05/2021) S/P cardiac catheterization Dr. Sharad Calvillo at [facility]- 01/09/22 S/P cardiac pacemaker procedure (01/18/22) secondary to symptomatic bradycardia Status post amputation of toe (12/29/21) R 2nd toe d/t infection Status post amputation of toe of right foot (01/27/22) metatarsal resection R toe 2-5 d/t osteomyelitis/gangrene Family History Mother Diabetes Coronary heart disease Heart disease Hypertension Stroke Father Diabetes Coronary heart disease Heart disease Myocardial infarction Hypertension Stroke Other Kidney disease No family history of adverse response to anesthesia Denies family history of Ovarian cancer Prostate cancer Breast cancer Lung cancer Colorectal cancer Social History Smoking Status: Former smoker Second Hand Exposure: No; Do You Dip or Chew Tobacco: No; Hx Alcohol Use: No Hx Substance Use: No Preferred Language: Estonian Communication Ability: Effective Communication Ability Comment: significant otherKaycee speaks and writes/read Estonian well Visual Impairment: No Limitations Hearing Ability: Normal Process Coordinator Required: No Beliefs That Will Affect Care: None marital status: Single Current Living Situation: Spouse Current Living Situation Comment: lives with significant other near [place] current occupational status: disabled How many Children do You have: 0 Other Information That Helps 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 Safe at Home: Yes Safety Concerns: Feels Safe At This Time Childhood Exposure to Second-Hand Smoke: Yes Diet: regular Diet Comment: regular caffeine: No during the past year weight has: remained stable Dental Care, Regularly: No Physical Activity Frequency: 1-2 Times per Week Physical Activity Frequency Comment: walk Seatbelt Use: always Sunscreen Use: No Assistive Devices: CPAP, Glasses, Oxygen - Continuous and Wheelchair Review of Systems Constitutional: no fever Eyes: no problem reported Ear, Nose, Mouth, Throat: no problem reported Respiratory: no dyspnea Cardiovascular: no chest pain Gastrointestinal: no nausea, no vomiting and no diarrhea/loose stools Neurologic: no confusion Physical Exam Constitutional: + ill appearing; not in distress Eyes: PERRL, conjunctivae normal, anicteric sclerae ENMT: external ear and nose normal, oropharynx normal Neck: trachea midline, no thyromegaly Respiratory: normal respiratory effort, lungs clear to auscultation Cardiovascular: Rate/Rhythm: regular rate and regular rhythm Extremities: + AV fistula (+ bruit) Gastrointestinal (Abdomen): Inspection/Auscultation: + abdomen distended and + hypoactive bowel sounds Percussion/Palpation: abdomen nontender and no guarding Neurologic: Speech / Cognition: normal speech and normal cognition Results & Data Vital Signs (Past 12 Hours) Vital Signs Temp Pulse Pulse Resp BP Pulse Ox O2 Del Method 06/28/22 07:41 36.6 C 71 20 94/29 L 94 Nasal Cannula 06/28/22 07:30 70 06/28/22 05:56 70 06/28/22 05:44 72 18 91 Nasal Cannula 06/28/22 05:21 70 83/30 L 92 Nasal Cannula 06/28/22 05:03 Nasal Cannula 06/28/22 05:03 36.4 C L 71 22 82/30 L 92 Nasal Cannula 06/28/22 04:22 36.4 C L 71 22 82/30 L 92 Nasal Cannula O2 Flow Rate 06/28/22 07:41 5 06/28/22 07:30 06/28/22 05:56 06/28/22 05:44 5 06/28/22 05:21 5 06/28/22 05:03 4 06/28/22 05:03 4 06/28/22 04:22 4 Laboratory Results Laboratory Tests 06/28/22 06/28/22 06/28/22 04:53 04:53 04:53 WBC 10.23 Hgb 10.5 L Hct 34.2 L Plt Count 246 Sodium 131 L Potassium 5.7 H Chloride 86 L Carbon Dioxide 25 BUN 64 H Creatinine 6.88 H* Glucose 339 H* Lactate 4.1 H* Calcium 8.4 L Phosphorus 7.5 H AST 20 ALT < 3 L Alkaline Phosphatase 155 H Albumin 3.2 L Diagnostic Findings 06/28/22 CXR: 1. Cardiomegaly and mild pulmonary vascular congestion again noted. 2. The right PICC appears to terminate at the SVC. ECG Additional Comments: 06/27/22 ECG: Paced rhythm PG Care Time/CCT Total # of Minutes Spent Total Time Spent with Patient: Total time spent is greater than 50% in coordination of care (as documented) at patient's floor/unit and/or counseling patient: Coding Level of Care Code 78552 IN/OBS CONSULT LVL 5,80M Diagnoses End-stage renal disease on hemodialysis N18.6; Z99.2 Weakness R53.1 Anemia D64.9 Diabetes mellitus type 2, uncontrolled E11.65 Glycemic state: with hyperglycemia (4) Diabetes mellitus type 2, uncontrolled Glycemic state: with hyperglycemia Qualified Code(s): E11.65 - Type 2 diabetes mellitus with hyperglycemia
[2022-06-28] MEDS ORDERED: SODIUM CHLORIDE 0.9% 1000ML 1,000 ML IV PRN (09:39)
[2022-06-28] MEDS ORDERED: EPOETIN ALFA 10,000 UNITS/ML VIAL IV ONE (09:39)
[2022-06-28] MEDS: FLUTICASONE/VILANTEROL 100/25MCG 14 PUFFS/INHALER INH SCH (09:44)
[2022-06-28] MEDS: ASPIRIN 81 MG ECTAB PO SCH (09:45)
[2022-06-28] MEDS: PANTOprazole 40 MG TAB PO SCH (09:45)
[2022-06-28] MEDS: APIXABAN 5 MG TABLET PO SCH ×2 (09:45→21:06)
[2022-06-28] MEDS: AMIODARONE 200 MG TAB PO SCH (09:45)
--- NOTE | 2022-06-28 09:48 | Pharmacy Report ---
Pharmacy Glycemic Short Note 2 - Date of Service June 28, 2022 - Glycemic Short BSG Results (Last 24 hours): 06/28/22 06/28/22 06/28/22 03:52 04:53 07:59 Glucose 339 H* POC Glucose 376 H* 294 H OUTPATIENT ANTIDIABETIC REGIMEN: * Toujeo 0-33 units SC daily (based on BSG) * BSG < 130 mg/dL - hold * BSG 130-170 mg/dL - 1/2 dose * BSG >170 mg/dL - 33 units * Apidra 4 units SC daily with dinner HbA1c: 7.6% (05/02/22) * However, this result is likely somewhat unreliable in ESRD patients d/t interactions between the A1c analyzing technique and high levels of urea in ESRD, reduced RBC life span, iron deficiency anemia, and EPO administration. HbA1c > 7.5% in ESRD patient may overestimate the extent of hyperglycemia in ESRD patients. ASSESSMENT: * PZ is a 52 year old male transferred from [facility] early this morning * Patient reports increased generalized weakness, fatigue, and severe right hip pain. He also reports multiple falls at home. * Initial labs showed multiple abnormalities, hyperkalemia (5.7 mmol/L), hyperphosphatemia (7.5 mg/dL), anion gap of 20 w/ normal serum bicarbonate (25 mmol/L), hyperglycemia (BSG of 339 mg/dL), elevated lactate (4.1), among others. * Patient has history of uncontrolled T2DM and ESRD requiring HD (scheduled for HD session today) * Given elevated anion gap, suggested blood gas be obtained, which came back normal * IV insulin bolus ordered for hyperkalemia, also ordered HD for today * Historically, patient has required ~7-10 units of basal insulin PLAN FOR INPATIENT GLYCEMIC CONTROL: * Hold outpatient oral diabetes medications * Basal insulin * Lantus 10 units SC daily * Bolus insulin * NovoLog per scale ACHS or Q6hrs while NPO * Goal Range: Low 120 mg/dL - High 150 mg/dL * Correction Factor: 35 mg/dL/unit * Nutritional / Prandial insulin per carb ratio of 1 unit per 12 grams CHO consumed
[2022-06-28] MEDS: LANTUS PER UNIT CHARGE SQ SCH (09:49)
--- NOTE | 2022-06-28 11:06 | XRay Report ---
XR chest 1V portable CLINICAL HISTORY: Increased shortness of breath. COMPARISON STUDY: Chest radiograph June 28, 2022 at 4:[address] April 07, 2021. FINDINGS: Low lung volumes are noted. This suggests a hypoventilatory study. A right subclavian pacer is in place. There is no pneumothorax. No definite pleural effusion. Pulmonary vascular congestion i s again noted. Apparent left basilar opacity is probably artifactual represent atelectasis. IMPRESSION: 1. Suspected hypoventilatory study. 2. Stable cardiomegaly with pulmonary vascular congestion. 3. Apparent left basilar opacity which is likely artifactual or atelectatic. ACT 112: Negative or not required by law. Electronically signed by: Manolo Shelton M.D. 06/28/2022 11:05 AM
--- NOTE | 2022-06-28 13:57 | Electrocardiogram Report ---
Test Reason : Blood Pressure : / mmHG Vent. Rate : 070 BPM Atrial Rate : 073 BPM P-R Int : 178 ms QRS Dur : 190 ms QT Int : 502 ms P-R-T Axes : 000 137 -03 degrees QTc Int : 542 ms AV dual-paced rhythm Biventricular pacemaker detected Abnormal ECG When compared with ECG of 09-MAY-2022 14:28, Vent. rate has decreased BY 8 BPM Confirmed by Riley Maciel ([id number]) on 06/28/2022 1:57:18 PM Referred By: Taya Randall Confirmed By:Riley Maciel
[2022-06-28] MEDS ORDERED: VANCOMYCIN CONSULT ACTIVE PRN (14:38)
[2022-06-28] MEDS ORDERED: VANCOMYCIN HCL 2,000 MG in SODIUM CHLORIDE 0.9% 500 ML IV ONE (15:00)
[2022-06-28] MEDS ORDERED: amLODIPine BESYLATE 5 MG TAB PO ONE (16:53)
[2022-06-28] MEDS: PIPERACILLIN/TAZOBACTAM 4.5 GM CI (over 4 hours) IV SCH (17:44)
[2022-06-28] MEDS: ALBUT/IPRATROP 3MG/0.5MG NEB 3 ML VIAL NEB SCH (19:28)
[2022-06-28] MEDS: ATORVASTATIN 40 MG TAB PO SCH (21:06)
[2022-06-28] MEDS: MONTELUKAST SODIUM 10 MG TABLET PO SCH (21:06)
--- NOTE | 2022-06-28 22:05 | Orthopedic Consultation ---
Date of Consultation June 28, 2022 Assessment & Plan (1) Infection of right foot: Plan Patient seen, evaluated, and treated. Dry sterile dressing change. Foot appears stable. Discussed case with hospital service. 3 phase bone scan ordered Will continue to follow while in house. History of Present Illness Attending Physician: Hood Hendricks MD History of Present Illness Patient is a type II diabetic 52 year old male who is seen at bedside for right diabetic foot wounds. Patient past medical history significant for ESRD on HD q M/W/F (last full session 06/26/22), DM, KISHAN, CHF, HTN, HLP and Cirrhosis. Patient is known to me from previous right 2nd metatarsal resection, and fourth and fifth ray resection followed by right foot delayed primary closure. Patient relates minimal discomfort. Patient has no other subjective complaints today's visit. Allergies Allergy/AdvReac Type Severity Reaction Status Date / Time codeine AdvReac Mild DELIRIUM,ME Verified 06/28/22 04:17 AN tramadol AdvReac Mild nausea and Verified 06/28/22 04:17 vomiting Home Medications Medication Instructions Recorded Confirmed Type miscellaneous medical supply 1 ea miscellaneous DAILY #1 ea 03/08/21 06/26/22 Rx acetaminophen 500 mg capsule 1,000 mg PO TID PRN Pain #180 caps 11/21/21 06/28/22 Rx montelukast 10 mg tablet 10 mg PO HS 01/25/22 06/28/22 History insulin glargine U-300 conc 300 33 unit (0.11 mL) subcut QAM #4.5 02/22/22 06/28/22 Rx unit/mL (1.5 mL) subcutaneous pen mL (Toujeo SoloStar U-300 Insulin) cholecalciferol (vitamin D3) 125 125 mcg PO DAILY 03/16/22 06/26/22 History mcg (5,000 unit) capsule amiodarone 200 mg tablet 200 mg PO QAM #90 tabs 03/21/22 06/28/22 Rx apixaban 5 mg tablet (Eliquis) 5 mg PO BID #180 tabs 03/21/22 06/28/22 Rx atorvastatin 40 mg tablet 40 mg PO HS #90 tabs 03/21/22 06/28/22 Rx fluticasone furoate 100 1 inh inhalation DAILY 04/04/22 06/28/22 History mcg-vilanterol 25 mcg/dose inhalation powder (Breo Ellipta) hydrochlorothiazide 25 mg tablet 25 mg PO BID 04/04/22 06/28/22 History omeprazole 20 mg tablet,delayed 20 mg PO DAILY 04/04/22 06/28/22 History release albuterol sulfate 90 mcg/actuation 2 puff inhalation Q6H PRN 05/02/22 06/28/22 Rx aerosol inhaler shortness of breath or wheezing #18 grams Hospital Bed Homecare #1 ea 05/25/22 06/26/22 Rx ondansetron 4 mg disintegrating 4 mg PO Q8H PRN nausea and 06/07/22 06/26/22 Rx tablet vomiting #30 tabs betamethasone valerate 0.1 % 1 applic topical BID PRN skin 06/08/22 06/28/22 Rx topical cream irritation #15 grams insulin glulisine U-100 100 4 unit (0.04 mL) subcut ONCE #1 box 06/14/22 06/28/22 Rx unit/mL subcutaneous pen (Apidra SoloStar U-100 Insulin) amlodipine 10 mg tablet 10 mg PO DAILY #90 tabs 06/20/22 06/28/22 Rx aspirin 81 mg chewable tablet 81 mg PO QAM 06/20/22 06/28/22 History ranolazine 500 mg tablet,extended 500 mg PO BID 06/20/22 06/26/22 History release,12 hr Patient History Medical History Acute metabolic encephalopathy Acute on chronic diastolic CHF (congestive heart failure) Anemia of chronic disease Arthritis CAD (coronary artery disease) 08/2015- L Cx stent; 11/2017- RCA stent, L Cx stent patent; 07/2019- LM wnl, prox-mid LAD 30%, mid-L Cx stent patent, RCA stent stent with area between stents 30-40%. Sees [facility], Dr Sharad Norton. Calcification of tendon L elbow- seen on XR 12.. 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) Repaired s/p PPV, MP, EL (SNT) Dialysis AV fistula malfunction Dialysis AV fistula malfunction Diverticular disease Elevated troponin End-stage renal disease on hemodialysis ESRD (end stage renal disease) on dialysis dialysis sun-sun-sun is getting dialysis sat prior to colonoscopy 09/29/2019 and will have it again after on sunday09/30/2019 GERD (gastroesophageal reflux disease) History of COVID-19 (12/2020) Hyperkalemia Hyperlipidemia Hypertension Moderate pulmonary hypertension Nuclear sclerosis of both eyes Obstructive sleep apnea cpap on 4L N/C On home oxygen therapy 4L N/C at all times Osteoarthritis, hip, bilateral Pleural effusion, bilateral 11/2018 Pneumonia Presence of arteriovenous fistula for hemodialysis left forearm Secondary pulmonary hypertension Status post placement of implantable loop recorder (07/07/21) Vitreous hemorrhage of right eye due to diabetes mellitus (12/04/18) Surgical History History of cardiac cath X 2 - 11/2017 - [facility] SOB - stent placed - follows w/ Dr. Zuniga - 2015 - [facility] SOB - 1 stent placed History of colonoscopy History of foot surgery left x 4 History of heart artery stent X2 History of placement of chest tube left lung for pleural effusion 11/2018 History of tooth extraction all teeth S/P arteriovenous (AV) fistula creation 04/2016 Dr. Mena placed S/P AV sera ablation (01/18/22) S/P bilateral cataract extraction (05/2021) S/P cardiac catheterization Dr. Sharad Calvillo at [facility]- 01/09/22 S/P cardiac pacemaker procedure (01/18/22) secondary to symptomatic bradycardia Status post amputation of toe (12/29/21) R 2nd toe d/t infection Status post amputation of toe of right foot (01/27/22) metatarsal resection R toe 2-5 d/t osteomyelitis/gangrene Family History Mother Diabetes Coronary heart disease Heart disease Hypertension Stroke Father Diabetes Coronary heart disease Heart disease Myocardial infarction Hypertension Stroke Other Kidney disease No family history of adverse response to anesthesia Denies family history of Ovarian cancer Prostate cancer Breast cancer Lung cancer Colorectal cancer Social History Smoking Status: Former smoker Second Hand Exposure: No; Do You Dip or Chew Tobacco: No; Hx Alcohol Use: No Hx Substance Use: No Preferred Language: Luxembourgish Communication Ability: Effective Communication Ability Comment: significant otherKaycee speaks and writes/read Luxem[place]ish well Visual Impairment: No Limitations Hearing Ability: Normal Multimedia Coordinator Required: No Beliefs That Will Affect Care: None marital status: Single Current Living Situation: Spouse Current Living Situation Comment: lives with significant other near [place] current occupational status: disabled How many Children do You have: 0 Other Information That Helps 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 Safe at Home: Yes Safety Concerns: Feels Safe At This Time Childhood Exposure to Second-Hand Smoke: Yes Diet: regular Diet Comment: regular caffeine: No during the past year weight has: remained stable Dental Care, Regularly: No Physical Activity Frequency: 1-2 Times per Week Physical Activity Frequency Comment: walk Seatbelt Use: always Sunscreen Use: No Assistive Devices: CPAP, Glasses, Oxygen - Continuous and Wheelchair Review of Systems Review of Systems: All systems reviewed & are unremarkable except as noted in HPI & below Physical Exam Constitutional: + frail appearing, cooperative and comfortable Eyes: normal visual jacinto by confrontation Neck: trachea midline Respiratory: normal respiratory effort Cardiovascular: Rate/Rhythm: regular rate and regular rhythm Musculoskeletal: Lateral fourth and fifth ray amputation to right foot. Skin: Sutures intact to surgical resected areas with poor healing noted. Wound location:Right lateral foot Wound base color and depth:Full thickness intomuscle and tendon Wound size (cm):1.5x1.5x 0.5cm Odor:None Drainage:None Undermining:None Borders:Fibrous Neurologic: Absent epicritic sensation Psychiatric: Orientation: alert and oriented x 3 Results & Data Vital Signs (Past 12 Hours) Vital Signs Temp Pulse Pulse Pulse Resp BP BP 06/28/22 19:00 36.5 C 70 18 107/46 L 06/28/22 15:40 36.3 C L 69 134/55 L 06/28/22 17:28 06/28/22 15:46 72 06/28/22 15:00 80 126/100 06/28/22 14:30 71 132/62 06/28/22 14:00 64 108/76 06/28/22 13:30 70 138/57 L 06/28/22 13:00 70 135/100 05/03/23 12:30 70 122/73 06/28/22 12:00 82 120/69 06/28/22 11:30 76 101/64 06/28/22 11:12 70 125/48 L 06/28/22 11:06 36.3 C L 70 Pulse Ox O2 Del Method O2 Flow Rate 06/28/22 19:00 95 Room Air 06/28/22 15:40 06/28/22 17:28 Nasal Cannula 5 06/28/22 15:46 06/28/22 15:00 06/28/22 14:30 06/28/22 14:00 06/28/22 13:30 06/28/22 13:00 06/28/22 12:30 06/28/22 12:00 06/28/22 11:30 06/28/22 11:12 06/28/22 11:06
[2022-06-28] MEDS ORDERED: STAT IV STA (23:13)
[2022-06-28] MEDS: ALBUT/IPRATROP 3MG/0.5MG NEB 3 ML VIAL NEB PRN (23:30)
[2022-06-28] MEDS ORDERED: CALCIUM GLUCONATE 10% 1,000 MG in DEXTROSE 5% 50 ML IV ONE (23:30)
[2022-06-29] MEDS: PIPERACILLIN/TAZOBACTAM 4.5 GM CI (over 4 hours) IV SCH ×2 (03:45→19:39)
[2022-06-29 06:10] LABS: Basophils # (auto) 0.09 K/uL (0-0.2); Basophils % (auto) 0.9 %; Eosinophils # (auto) 0.07 K/uL (0-0.50); Eosinophils % (auto) 0.7 %; Hematocrit (blood only) 34.4 % (42.0-52.0); Hemoglobin 10.4 g/dl (14.0-18.0); Immature Granulocytes # (auto) 0.04 K/uL (0.01-0.20); Immature Granulocytes % (auto) 0.4 %; Lymphocytes # (auto) 0.86 K/uL (1.2-3.4); Lymphocytes % (auto) 8.7 %; Mean Corpuscular Hemoglobin 27.7 pg (25.0-34.0); Mean Corpuscular Hgb Conc 30.2 g/dL (32.0-36.0); Mean Corpuscular Volume 91.7 fL (80.0-100.0); Mean Platelet Volume 11.1 fL (9.4-12.4); Monocytes # (auto) 0.86 K/uL (0.11-0.59); Monocytes % (auto) 8.7 %; Neutrophils # (auto) 7.93 K/uL (1.40-6.50); Neutrophils % (auto) 80.6 %; Nucleated RBC # (auto) 0.02 K/uL (0-0.12); Nucleated RBC % (auto) 0.2 %; Platelet Count 219 K/uL (130-400); RDW Coefficient of Variation 19.1 % (11.5-14.5); RDW Standard Deviation 62.6 fL (36.4-46.3); Red Blood Count 3.75 M/uL (4.70-6.10); White Blood Count 9.85 K/ul (4.8-10.8)
[2022-06-29 06:23] LABS: Alanine Aminotransferase < 3 U/L (7-52); Albumin Globulin Ratio 0.9 (0.9-2); Albumin Level 3.1 gm/dl (3.4-5.0); Alkaline Phosphatase 134 U/L (34-104); Anion Gap 14 (3-11); Aspartate Aminotransferase 22 U/L (13-39); BUN Creatinine Ratio 8.1 (10-20); Bilirubin,Total 0.6 mg/dl (0.2-1.0); Blood Urea Nitrogen 42 mg/dl (6-23); Calcium 8.5 mg/dl (8.6-10.3); Carbon Dioxide 25 mmol/L (21-32); Chloride 96 mmol/L (98-107); Creatinine Clr Calc Pharmacy 18.5 ml/min; Est GFR (African American) 13.4 ml/min; Est GFR (Non-African American) 11.6 ml/min; Globulin 3.4 gm/dl (2.5-4.0); Glucose 124 mg/dl (70-99(Fasting)); Magnesium 1.9 mg/dl (1.7-2.4); Potassium 5.4 mmol/L (3.5-5.1); Sodium 135 mmol/L (136-145); Total Protein 6.5 gm/dl (6.0-8.3)
[2022-06-29 06:29] LABS: INR 1.4 (0.9-1.1); Prothrombin Time 14.6 Seconds (9.0-12.0)
[2022-06-29] MEDS: ALBUT/IPRATROP 3MG/0.5MG NEB 3 ML VIAL NEB SCH ×4 (07:07→19:59)
--- NOTE | 2022-06-29 08:14 | Hospitalist Progress Note ---
Date of Service June 29, 2022 Assessment & Plan (1) Hypotension: Plan: Hypotensive with increased oxygen requirements and respiratory distress this morning in setting of developing sepsis likely 2nd to foot infection/recent osteomyelitis. Lactic elevated on admission, improved on repeats BPs 60s/25, 76/44 this morning, repeat manual 115/51 w/ O2 requirement from 5-6L to 12L on hiflow w/ tachypnea. concerns for volume overload given CXR w/ pulm congestion on admission despite EDW below outpt measurements and HD on 06/28 without pulling fluid off. 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 COnfirmed w/ marketing secretary and provider contacted and will have consultation done later today Podiatry following, planning for bone scan for further eval Blood cultures pending -- NGTD Continues on Vanco/Zosyn for now. Cx from drainage RLE pending from last evening with dressing change-- prelim w/ pin point growth, re-incubating (GS w/ rare gram positive bacilli, gram positive cocci) KUB w/ developing obstruction not excluded. Surgery consulted and diet changed to liquids for now Appreciate assistance from nephrology/m48/m60 tank driver/surgery/ID Most recent BP in system 122/41 -- continue midodrine 2.5mg TID, presser support if needed in ICU deferred to m48/m60 tank driver (2) Respiratory distress: Plan: 2nd to sepsis -- see above BiPAP as needed, titrate as able Duonebs/pulm toilet CTA w/o evidence for pneumonia (3) Abdominal distention: Plan: KUB w/ distended/gas filled loops of small bowel. developing obstruction not excluded not having pain in abdomen but reporting fullness. US abd eval for ascites w/ hx cirrhosis w/ small-moderate amount of ascites Does not make urine, no benefit from lasix/torsemide HD for today, general surgery consulted Backed to full liquids in the meantime Per surgery, as long as without n/v, worsening distension, ok to continue clears. No need for NGT at present and plans to repeat KUB in AM (4) Ileus: Plan: possible, see above (5) Infection of right foot: Plan: Hx osteomyelitis of right root, recent admission for Group B streptococcus bacteremia and had partial excision 3/4/5th metatarsals and excision right foot wount w/ Dr Rust on 05/13 Reportedly completed 6 wks Ancef, last date 06/24 -- however, patient did report having ongoing drainage at home Concerns for ongoing infection/appearance on exam, ESR 67, CRP 11.19, procal 1.62 Cx from last evening pending -- prelim w/ pin point growth, re-incubating (GS w/ rare gram positive bacilli, gram positive cocci) Started Vanco/Zosyn for broad spectrum IV abx Monitoring blood cultures -- NGTD at present Dr Rust on consult -> planning for bone scan for today for further eval ID consulted for today as above, appreciate assistance (6) Weakness: Plan: Patient reports overall doing poorly at home over the last several weeks. Recently admitted 05/09- 05/17 for sepsis w/ bacteremia (group B strep) 2nd to osteomyelitis infection of his RIGHT foot (reported ongoing drainage to me) Sx of generalized weakness, fatigue as well as severe right hip pain with reports of falling x 2 in the past several weeks. Apparently CT hip imaging negative at outside facility Req for CD/imaging uploaded to [employer] Increased O2 requirements as above, moved to ICU, BiPAP, HD planned for today to assist with pulling off fluid (BNP elevated 2533, last echo negative for vegetation -- may need to repeat if blood cultures turn positive) Lactic 4.1--> 2.7 on repeat Nephrology on consult for HD as above, ID for guidance w/ abx cdiff testing ordered given recent abx use however TNP given formed stool this morning , now / ileus/possible developing obstruction and surgery on consult PT/OT consults Fall precautions (7) Diabetes mellitus type 2, uncontrolled: Plan: Longstanding history of DM, most recent A1c 7.6 BSG 498 at OSH, given insulin w/ repeat BSG 325 Was 376 on admission and reported compliance w/ medications and suspect elevations/lows 2nd to infection Was given 10u IV insulin to help w/ hyperkalemia prior to HD but was hypoglycemic to the 60-70s in HD and provided snacks/juice and I contacted p arinacy for adjustment in SSI BSGs improved, but patient refusing long/short acting today given lows day prior Pharmacy on consult for glycemic management Monitor (8) Cirrhosis of liver with ascites: Plan: With increased abdominal distention since receiving IVF per patient, which had been discontinued yesterday small-mod ascites on US abd holding HCTZ given low BPs Nephrology on consult and patient to undergo HD to pull off fluid Monitor repeat exam - NONTender, do not suspect SBP at present (9) PAF (paroxysmal atrial fibrillation): Plan: Regular rhythm on physical exam. EKG ordered -- Vpaced rhythm Continue Amiodarone 200mg po qAM Continue Apixaban 5mg po BID ?switching to different agent given anemia/cirrhosis (10) End-stage renal disease on hemodialysis: Plan: Patient ESRD on HD q M/W/. Appears volume overloaded at this time. Nephrology consultation appreciated - likely HD in AM discussed /w nephrology and patient below his EBW and did not feel overloaded at this time and next HD planned for Sunday --> patient undergoing HD for 06/29 as outlined above (11) CAD (coronary artery disease): Plan: Patient wiht PCI to RCA in 2017. He had a cardiac catheterization in July 2019 with patent stent. Cardiac catheterization March 2021 with in-stent restenosis of the RCA with severe disease, chronically occluded OM3. No acute intervention. Patient on medical management - has been unable to tolerated beta blockers due to hypotension. He follows with Cardiology - Dr. Norton at [facility]. Patient denies chest pain at this time Continue ASA, Atorvastatin (12) GERD (gastroesophageal reflux disease): Plan: Chronic. Stable. Patient on Omeprazole Protonix 40mg po daily (13) Hyperlipidemia: Plan: Chronic. Stable Continue Atorvastatin 40mg po qHS (14) Hypertension: Plan: Patient with low blood pressure at present. He has been given 1.5L NSS prior to arrival. Patient is ESRD on HD, Anuric. Underwent HD 06/28, repeating today given volume overload/respiratory distress GIven 2.5mg amlodipine last evening given BPs stable but did not schedule Will continue to hold anti-HTN agents given hypotension as above Moved to ICU as outlined for possible need for BP support Started midodrine 2.5mg TID in the meantime Most recent BP in system 132/80 during HD in ICU this evening Plan continued inpatient stay moved to ICU general surgery consulted for ileus/developing obstruction ID consulted for abx assistance podiatry on consult -- planning bone scan for further eval infection/osteo Admission and Anticipated Discharge Date Admission Date: June 28, 2022 Supervising Physician Co-Signing Physician Notes The patient was not seen by me. The chart was reviewed. He has been transferr ed to the ICU after dialysis due to respiratory failure. Patient discussed with MARK Godwin. Agree with assessment and plan Subjective eval this morning, feeling poorly. more short of breath, feels like having difficulty catching his breath. increased abdominal distension but did move his bowels this morning. feels he needs to have his belly drained. Denied ever having this done in the past but has had a thoracentesis. He states he thinks his abdomen is so distended that it is making it difficult to breath. he is currently up to 12L NC to maintain saturations. Discussed HD w/ nephrology, will attempt this afternoon. BPs low this morning, feeling lightheaded/weak. Ordered midodrine but hasn't gotten yet, BPs 110s/50s most recently. Refusing long and short acting insulin at present to prevent low BSgs like yesterday "on top of everything else". Dressing changed this morning w/ purulent brownish/yellow drainage. Cx pending from last evening. Possible need to move to ICU for pressor support and will alert Wood Science Professor for possible need. NO chest pain reproted. Physical Exam Physical Exam: General: 52yo chronically ill appearing, obese male , mild distress, tachypneic HEENT: Resp: tachypneic, complaining of shortness of breath, diminished in the bases, poor effort, on HFNC @ 12L to maintain sats CV: RRR, no significant m/r/g, no increased pitting edema, pulses diminished, calves nontender GI: significantly distended, slightly hypoactive BS (just had BM this morning), nontender to palpation but reporting increased fullness : no friedman MSK/Neuro: follows commands, no slurred speech/facial droop RLE w/ dressing intact, dusky appearance to toes, eschar present b/l LE w/ crusted pustules/eschar, no active drainage L anterior recent site of punch biopsy, covered w/ kerlix Psych: AOx3, irritable Results & Data Results & Data Vital Signs (Past 12 Hours) Vital Signs Temp Pulse Pulse Pulse Resp BP BP 06/29/22 16:00 70 122/41 L 06/29/22 15:30 70 109/72 06/29/22 15:18 70 28 H 06/29/22 15:18 70 28 H 06/29/22 15:00 70 129/88 06/29/22 15:07 70 18 129/88 06/29/22 15:00 70 21 06/29/22 14:46 129/88 06/29/22 14:46 70 23 06/29/22 14:32 70 24 06/29/22 14:32 153/70 H 06/29/22 14:35 36.8 C 70 06/29/22 14:30 70 23 06/29/22 14:01 131/64 06/29/22 14:01 70 19 06/29/22 14:00 70 20 06/29/22 13:30 70 22 06/29/22 13:00 70 24 06/29/22 13:00 89/52 L 06/29/22 12:30 70 20 06/29/22 12:15 70 24 06/29/22 12:00 70 24 06/29/22 11:39 116/52 L 06/29/22 11:39 70 19 06/29/22 11:34 69 24 06/29/22 12:00 06/29/22 12:36 06/29/22 12:26 36.8 C 06/29/22 10:56 36.7 C 70 29 H 84/28 L 06/29/22 07:20 06/29/22 10:32 90 48 H 06/29/22 10:32 70 38 H 06/29/22 08:23 70 67/25 L 06/29/22 09:20 115/51 L 06/29/22 08:32 76/44 L 06/29/22 07:23 70 06/29/22 07:09 77 28 H 06/29/22 06:44 92/54 L 06/29/22 02:53 86/56 L 06/29/22 02:40 36.5 C 71 18 87/41 L 06/29/22 01:29 71 88/56 L 06/29/22 00:34 36.1 C L 70 20 86/52 L 06/29/22 00:04 70 06/28/22 23:32 70 18 06/28/22 23:08 06/28/22 23:07 86/56 L 06/28/22 22:34 35.9 C L 18 L 70 20 89/36 L 06/28/22 19:00 36.5 C 70 18 107/46 L 06/28/22 17:28 Pulse Ox O2 Del Method O2 Flow Rate FiO2 06/29/22 16:00 06/29/22 15:30 06/29/22 15:18 98 60 06/29/22 15:18 99 BiPAP 60 06/29/22 15:00 06/29/22 15:07 100 BiPAP 06/29/22 15:00 99 06/29/22 14:46 06/29/22 14:46 100 06/29/22 14:32 100 06/29/22 14:32 06/29/22 14:35 06/29/22 14:30 100 06/29/22 14:01 06/29/22 14:01 94 06/29/22 14:00 93 06/29/22 13:30 93 06/29/22 13:00 94 06/29/22 13:00 06/29/22 12:30 100 60 06/29/22 12:15 100 06/29/22 12:00 98 06/29/22 11:39 06/29/22 11:39 06/29/22 11:34 06/29/22 12:00 60 06/29/22 12:36 BiPAP 06/29/22 12:26 06/29/22 10:56 95 CPAP 06/29/22 07:20 Nasal Cannula 5 06/29/22 10:32 90 Nasal Cannula 15 06/29/22 10:32 96 80 06/29/22 08:23 90 High Flow Nasal Cannula 12 06/29/22 09:20 06/29/22 08:32 06/29/22 07:23 06/29/22 07:09 90 Nasal Cannula 6 06/29/22 06:44 06/29/22 02:53 06/29/22 02:40 98 CPAP 06/29/22 01:29 06/29/22 00:34 92 CPAP 6 06/29/22 00:04 06/28/22 23:32 90 CPAP 6 06/28/22 23:08 CPAP 5 06/28/22 23:07 06/28/22 22:34 95 CPAP 06/28/22 19:00 95 Room Air 06/28/22 17:28 Nasal Cannula 5 Intake and Output 06/29/22 06/29/22 06/29/22 06:59 14:59 22:59 Intake Total 400 / 1400 120 / 120 Output Total Balance 400 / 1399 119 / 119 Intake: IV 60 / 820 120 / 120 Calcium Gluconate 10% 1,000 mg 60 / 60 In Dextrose 5% 50 ml @ 240 mls/ hr IV NOW ONE Rx#:[id number] Piperacillin/Tazobactam 4.5 gm 120 / 120 In Dextrose 5% 100 ml @ 30 mls/ hr IV Q12H [facility] Rx#:[id number] Oral 340 / 580 0 / 0 Output: # Bowel Movements Other: Other Intake Source sips Weight 108.4 kg Weight Measurement Method Built in [facility] Patient Weight 06/30/22 06:59 Weight 108.4 kg Laboratory Results 06/29/22 06/29/22 06/29/22 Range/Units Unknown 11:51 08:50 WBC (4.8-10.8) K/ul RBC (4.70-6.10) M/uL Hgb (14.0-18.0) g/dl Hct (42.0-52.0) % MCV (80.0-100.0) fL MCH (25.0-34.0) pg MCHC (32.0-36.0) g/dL RDW Std Deviation (36.4-46.3) fL RDW Coeff of Octavio (11.5-14.5) % Plt Count (130-400) K/uL MPV (9.4-12.4) fL Immature Gran % (Auto) % Neut % (Auto) % Lymph % (Auto) % Amite % (Auto) % Eos % (Auto) % Baso % (Auto) % Neut # (Auto) (1.40-6.50) K/uL Lymph # (Auto) (1.2-3.4) K/uL Amite # (Auto) (0.11-0.59) K/uL Eos # (Auto) (0-0.50) K/uL Baso # (Auto) (0-0.2) K/uL Immature Gran # (Auto) (0.01-0.20) K/uL Absolute Nucleated RBC (0-0.12) K/uL Nucleated RBC % (auto) % PT (9.0-12.0) Seconds INR (0.9-1.1) D-Dimer (0-500) ug/L FEU Sample Site R Brachial POC pH 7.41 (7.35-7.45) POC pCO2 31 L (35-46) mmHg POC pO2 52 L (80-95) mmHg POC HCO3 20 (19-24) anisha/L POC Total CO2 21 L (24-31) mmol/L POC Base Excess -5.0 (-9-1.8) anisha/L POC ABG O2 Sat 87.0 L (90-95) % Rahul Test Pass O2 Delivery Device Cannula Sodium (136-145) mmol/L Potassium (3.5-5.1) mmol/L Chloride (98-107) mmol/L Carbon Dioxide (21-32) mmol/L Anion Gap (3-11) BUN (6-23) mg/dl Creatinine (0.6-1.4) mg/dl Est Cr Clr Drug Dosing ml/min Est GFR ( Amer) ml/min Est GFR (Non-Af Amer) ml/min BUN/Creatinine Ratio (10-20) Glucose (70-99(Fasting)) mg/dl POC Glucose 279 H (70-99) mg/dl Calcium (8.6-10.3) mg/dl Magnesium (1.7-2.4) mg/dl Total Bilirubin (0.2-1.0) mg/dl AST (13-39) U/L ALT (7-52) U/L Alkaline Phosphatase (34-104) U/L Total Protein (6.0-8.3) gm/dl Albumin (3.4-5.0) gm/dl Globulin (2.5-4.0) gm/dl Albumin/Globulin Ratio (0.9-2) Stl C. diff Tox B Gene TNP Random Vancomycin (10-20) mcg/ml Hep Bs Antigen Hep Bs Ag Confirmation 06/29/22 06/29/22 06/29/22 Range/Units 07:28 06:59 05:33 WBC (4.8-10.8) K/ul RBC (4.70-6.10) M/uL Hgb (14.0-18.0) g/dl Hct (42.0-52.0) % MCV (80.0-100.0) fL MCH (25.0-34.0) pg MCHC (32.0-36.0) g/dL RDW Std Deviation (36.4-46.3) fL RDW Coeff of Octavio (11.5-14.5) % Plt Count (130-400) K/uL MPV (9.4-12.4) fL Immature Gran % (Auto) % Neut % (Auto) % Lymph % (Auto) % Amite % (Auto) % Eos % (Auto) % Baso % (Auto) % Neut # (Auto) (1.40-6.50) K/uL Lymph # (Auto) (1.2-3.4) K/uL Amite # (Auto) (0.11-0.59) K/uL Eos # (Auto) (0-0.50) K/uL Baso # (Auto) (0-0.2) K/uL Immature Gran # (Auto) (0.01-0.20) K/uL Absolute Nucleated RBC (0-0.12) K/uL Nucleated RBC % (auto) % PT (9.0-12.0) Seconds INR (0.9-1.1) D-Dimer (0-500) ug/L FEU Sample Site POC pH (7.35-7.45) POC pCO2 (35-46) mmHg POC pO2 (80-95) mmHg POC HCO3 (19-24) anisha/L POC Total CO2 (24-31) mmol/L POC Base Excess (-9-1.8) anisha/L POC ABG O2 Sat (90-95) % Rahul Test O2 Delivery Device Sodium 135 L (136-145) mmol/L Potassium 5.4 H (3.5-5.1) mmol/L Chloride 96 L (98-107) mmol/L Carbon Dioxide 25 (21-32) mmol/L Anion Gap 14 H (3-11) BUN 42 H D (6-23) mg/dl Creatinine 5.20 H* D (0.6-1.4) mg/dl Est Cr Clr Drug Dosing 18.5 ml/min Est GFR ( Amer) 13.4 ml/min Est GFR (Non-Af Amer) 11.6 ml/min BUN/Creatinine Ratio 8.1 L (10-20) Glucose 124 H (70-99(Fasting)) mg/dl POC Glucose 180 H 176 H (70-99) mg/dl Calcium 8.5 L (8.6-10.3) mg/dl Magnesium 1.9 (1.7-2.4) mg/dl Total Bilirubin 0.6 (0.2-1.0) mg/dl AST 22 (13-39) U/L ALT < 3 L (7-52) U/L Alkaline Phosphatase 134 H (34-104) U/L Total Protein 6.5 (6.0-8.3) gm/dl Albumin 3.1 L (3.4-5.0) gm/dl Globulin 3.4 (2.5-4.0) gm/dl Albumin/Globulin Ratio 0.9 (0.9-2) Stl C. diff Tox B Gene Random Vancomycin (10-20) mcg/ml Hep Bs Antigen Hep Bs Ag Confirmation 06/29/22 06/29/22 06/29/22 Range/Units 05:33 05:33 05:33 WBC 9.85 (4.8-10.8) K/ul RBC 3.75 L (4.70-6.10) M/uL Hgb 10.4 L (14.0-18.0) g/dl Hct 34.4 L (42.0-52.0) % MCV 91.7 (80.0-100.0) fL MCH 27.7 (25.0-34.0) pg MCHC 30.2 L (32.0-36.0) g/dL RDW Std Deviation 62.6 H (36.4-46.3) fL RDW Coeff of Octavio 19.1 H (11.5-14.5) % Plt Count 219 (130-400) K/uL MPV 11.1 (9.4-12.4) fL Immature Gran % (Auto) 0.4 % Neut % (Auto) 80.6 % Lymph % (Auto) 8.7 % Amite % (Auto) 8.7 % Eos % (Auto) 0.7 % Baso % (Auto) 0.9 % Neut # (Auto) 7.93 H (1.40-6.50) K/uL Lymph # (Auto) 0.86 L (1.2-3.4) K/uL Amite # (Auto) 0.86 H (0.11-0.59) K/uL Eos # (Auto) 0.07 (0-0.50) K/uL Baso # (Auto) 0.09 (0-0.2) K/uL Immature Gran # (Auto) 0.04 (0.01-0.20) K/uL Absolute Nucleated RBC 0.02 (0-0.12) K/uL Nucleated RBC % (auto) 0.2 % PT 14.6 H (9.0-12.0) Seconds INR 1.4 H (0.9-1.1) D-Dimer 3940 H* (0-500) ug/L FEU Sample Site POC pH (7.35-7.45) POC pCO2 (35-46) mmHg POC pO2 (80-95) mmHg POC HCO3 (19-24) anisha/L POC Total CO2 (24-31) mmol/L POC Base Excess (-9-1.8) anisha/L POC ABG O2 Sat (90-95) % Rahul Test O2 Delivery Device Sodium (136-145) mmol/L Potassium (3.5-5.1) mmol/L Chloride (98-107) mmol/L Carbon Dioxide (21-32) mmol/L Anion Gap (3-11) BUN (6-23) mg/dl Creatinine (0.6-1.4) mg/dl Est Cr Clr Drug Dosing ml/min Est GFR ( Amer) ml/min Est GFR (Non-Af Amer) ml/min BUN/Creatinine Ratio (10-20) Glucose (70-99(Fasting)) mg/dl POC Glucose (70-99) mg/dl Calcium (8.6-10.3) mg/dl Magnesium (1.7-2.4) mg/dl Total Bilirubin (0.2-1.0) mg/dl AST (13-39) U/L ALT (7-52) U/L Alkaline Phosphatase (34-104) U/L Total Protein (6.0-8.3) gm/dl Albumin (3.4-5.0) gm/dl Globulin (2.5-4.0) gm/dl Albumin/Globulin Ratio (0.9-2) Stl C. diff Tox B Gene Random Vancomycin 21.6 H (10-20) mcg/ml Hep Bs Antigen Hep Bs Ag Confirmation 06/29/22 06/28/22 06/28/22 Range/Units 05:03 20:21 16:59 WBC (4.8-10.8) K/ul RBC (4.70-6.10) M/uL Hgb (14.0-18.0) g/dl Hct (42.0-52.0) % MCV (80.0-100.0) fL MCH (25.0-34.0) pg MCHC (32.0-36.0) g/dL RDW Std Deviation (36.4-46.3) fL RDW Coeff of Octavio (11.5-14.5) % Plt Count (130-400) K/uL MPV (9.4-12.4) fL Immature Gran % (Auto) % Neut % (Auto) % Lymph % (Auto) % Amite % (Auto) % Eos % (Auto) % Baso % (Auto) % Neut # (Auto) (1.40-6.50) K/uL Lymph # (Auto) (1.2-3.4) K/uL Amite # (Auto) (0.11-0.59) K/uL Eos # (Auto) (0-0.50) K/uL Baso # (Auto) (0-0.2) K/uL Immature Gran # (Auto) (0.01-0.20) K/uL Absolute Nucleated RBC (0-0.12) K/uL Nucleated RBC % (auto) % PT (9.0-12.0) Seconds INR (0.9-1.1) D-Dimer (0-500) ug/L FEU Sample Site POC pH (7.35-7.45) POC pCO2 (35-46) mmHg POC pO2 (80-95) mmHg POC HCO3 (19-24) anisha/L POC Total CO2 (24-31) mmol/L POC Base Excess (-9-1.8) anisha/L POC ABG O2 Sat (90-95) % Rahul Test O2 Delivery Device Sodium (136-145) mmol/L Potassium (3.5-5.1) mmol/L Chloride (98-107) mmol/L Carbon Dioxide (21-32) mmol/L Anion Gap (3-11) BUN (6-23) mg/dl Creatinine (0.6-1.4) mg/dl Est Cr Clr Drug Dosing ml/min Est GFR ( Amer) ml/min Est GFR (Non-Af Amer) ml/min BUN/Creatinine Ratio (10-20) Glucose (70-99(Fasting)) mg/dl POC Glucose 131 H 140 H 118 H (70-99) mg/dl Calcium (8.6-10.3) mg/dl Magnesium (1.7-2.4) mg/dl Total Bilirubin (0.2-1.0) mg/dl AST (13-39) U/L ALT (7-52) U/L Alkaline Phosphatase (34-104) U/L Total Protein (6.0-8.3) gm/dl Albumin (3.4-5.0) gm/dl Globulin (2.5-4.0) gm/dl Albumin/Globulin Ratio (0.9-2) Stl C. diff Tox B Gene Random Vancomycin (10-20) mcg/ml Hep Bs Antigen Hep Bs Ag Confirmation 06/28/22 06/28/22 Range/Units 16:11 08:32 WBC (4.8-10.8) K/ul RBC (4.70-6.10) M/uL Hgb (14.0-18.0) g/dl Hct (42.0-52.0) % MCV (80.0-100.0) fL MCH (25.0-34.0) pg MCHC (32.0-36.0) g/dL RDW Std Deviation (36.4-46.3) fL RDW Coeff of Octavio (11.5-14.5) % Plt Count (130-400) K/uL MPV (9.4-12.4) fL Immature Gran % (Auto) % Neut % (Auto) % Lymph % (Auto) % Amite % (Auto) % Eos % (Auto) % Baso % (Auto) % Neut # (Auto) (1.40-6.50) K/uL Lymph # (Auto) (1.2-3.4) K/uL Amite # (Auto) (0.11-0.59) K/uL Eos # (Auto) (0-0.50) K/uL Baso # (Auto) (0-0.2) K/uL Immature Gran # (Auto) (0.01-0.20) K/uL Absolute Nucleated RBC (0-0.12) K/uL Nucleated RBC % (auto) % PT (9.0-12.0) Seconds INR (0.9-1.1) D-Dimer (0-500) ug/L FEU Sample Site POC pH (7.35-7.45) POC pCO2 (35-46) mmHg POC pO2 (80-95) mmHg POC HCO3 (19-24) anisha/L POC Total CO2 (24-31) mmol/L POC Base Excess (-9-1.8) anisha/L POC ABG O2 Sat (90-95) % Rahul Test O2 Delivery Device Sodium (136-145) mmol/L Potassium (3.5-5.1) mmol/L Chloride (98-107) mmol/L Carbon Dioxide (21-32) mmol/L Anion Gap (3-11) BUN (6-23) mg/dl Creatinine (0.6-1.4) mg/dl Est Cr Clr Drug Dosing ml/min Est GFR ( Amer) ml/min Est GFR (Non-Af Amer) ml/min BUN/Creatinine Ratio (10-20) Glucose (70-99(Fasting)) mg/dl POC Glucose 105 H (70-99) mg/dl Calcium (8.6-10.3) mg/dl Magnesium (1.7-2.4) mg/dl Total Bilirubin (0.2-1.0) mg/dl AST (13-39) U/L ALT (7-52) U/L Alkaline Phosphatase (34-104) U/L Total Protein (6.0-8.3) gm/dl Albumin (3.4-5.0) gm/dl Globulin (2.5-4.0) gm/dl Albumin/Globulin Ratio (0.9-2) Stl C. diff Tox B Gene Random Vancomycin (10-20) mcg/ml Hep Bs Antigen Pending Hep Bs Ag Confirmation Pending Diagnostic Findings Chest X-Ray 06/29/22 06:00 XR chest 1V portable HISTORY: Shortness of breath. eval pulm congestion COMPARISON: Chest 06/28/2022. FINDINGS: No pneumothorax. No pleural effusions. The heart remains enlarged. There is mild pulmonary vascular congestion which has slightly improved. Right- sided pacemaker again noted. A right PICC likely terminates in the SVC. IMPRESSION: Cardiomegaly with slight improvement in the pulmonary vascular congestion. ACT 112: Negative or not required by law. Electronically signed by: Erwin Mitchell M.D. 06/29/2022 11:04 AM Abdomen Ultrasound 06/29/22 08:27 US abdomen ltd ascites CLINICAL HISTORY: eval ascites COMPARISON STUDY: FINDINGS: Real-time sonographic imaging of the abdomen was performed with hospital sales representative images submitted. There is a small to moderate amount of scattered ascites seen within the abdomen. IMPRESSION: Small to moderate amount of ascites. ACT 112: Negative or not required by law. Electronically signed by: Erwin Mitchell M.D. 06/29/2022 11:03 AM KUB X-Ray 06/29/22 09:18 KUB CLINICAL HISTORY: Abdominal distention. FINDINGS: 3 AP supine abdominal radiographs are correlated with abdominal CT dated 02/13/2020. There are distended and gas-filled loops of small bowel which measure up to 3.3 cm diameter. Small bowel obstruction is not excluded. No evidence of intraperitoneal free air is seen on these supine images. There are no abnormal abdominal calcifications. Advanced atherosclerotic change is seen throughout the abdominal vasculature. The skeletal structures are osteopenic and appear intact. There is lumbosacral spondylosis. IMPRESSION: There are numerous distended and gas-filled loops of small bowel. Developing obstruction is not excluded. Correlate clinically. Electronically signed by: Bin Dove M.D. 06/29/2022 10:23 AM Chest CTA 06/29/22 10:42 CT ANGIOGRAPHY OF THE CHEST, PULMONARY EMBOLUS PROTOCOL CLINICAL HISTORY: Shortness of breath. Evaluate for pulmonary embolus. COMPARISON STUDY: Chest radiograph performed earlier today. Chest CT April 07, 2021. Chest CT May 08, 2022. TECHNIQUE: Following IV administration of 111 mL of Optiray, helical axial images of the chest were obtained utilizing the pulmonary embolus protocol. Maximal intensity projections and sagittal and coronal reformats were viewed on an independent 3D workstation. IV contrast was administered without complication. Automated exposure control was utilized for the study. A dose lowering technique was utilized adhering to the principles of ALARA. CT DOSE: 666.32 mGy.cm FINDINGS: No pulmonary emboli are identified although the segmental and subsegmental pulmonary arteries are suboptimally assessed due to respiratory motion. There is moderate cardiomegaly and extensive coronary artery calcification. A right subclavian pacer is in place. There is no pericardial effusion. There is no pneumothorax. Small left pleural effusion is noted. There is a trace right pleural effusion. Subpleural opacities within lungs favor atelectasis. There is no definite consolidation to suggest pneumonia. There are mild groundglass opacities within the lungs. The lungs are suboptimally assessed due to respiratory motion. Multiple mildly enlarged mediastinal and hilar lymph nodes are similar to prior CT. There are no acute fractures within the bony thorax. Hepatic cyst is incidentally noted. There is nodularity of the liver surface. Small amount of upper abdominal ascites is present. IMPRESSION: 1. No pulmonary emboli identified although segmental and subsegmental pulmonary arteries within the lower lobes suboptimally assessed due to respiratory motion. 2. Small left and trace right pleural effusions. Subpleural opacities favor atelectasis. 3. Groundglass opacities within the lungs which are nonspecific. These could reflect mild edema or less likely an infectious process. 4. Moderate cardiomegaly. Extensive coronary artery calcification. 5. No change in mild mediastinal and bilateral hilar lymphadenopathy which is nonspecific but likely benign. 6. Suspected cirrhosis. Small amount of upper abdominal ascites. ACT 112: Negative or not required by law. Electronically signed by: Manolo Shelton M.D. 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, ordering and reviewing imaging and labs and repeat eval Coding Level of Care Code 74144 SUB INP/OBS CARE 3/50MIN Diagnoses Hypotension I95.9 Respiratory distress R06.03 Abdominal distention R14.0 Ileus K56.7 Infection of right foot L08.9 Weakness R53.1 Diabetes mellitus type 2, uncontrolled E11.65 Glycemic state: with hyperglycemia Cirrhosis of liver with ascites K74.60; R18.8 PAF (paroxysmal atrial fibrillation) I48.0 End-stage renal disease on hemodialysis N18.6; Z99.2 CAD (coronary artery disease) I25.10 Associated angina: without angina Coronary Disease-Associated Artery/Lesion type: [place] artery [place] vs. transplanted heart: [place] heart GERD (gastroesophageal reflux disease) K21.9 Hyperlipidemia E78.5 Hypertension I10 Additional Codes Prolonged Care Time - Prolonged Care Time: Yes ([id number]) (7) Diabetes mellitus type 2, uncontrolled Glycemic state: with hyperglycemia Qualified Code(s): E11.65 - Type 2 diabetes mellitus with hyperglycemia (11) CAD (coronary artery disease) Associated angina: without angina Coronary Disease-Associated Artery/Lesion type: [place] artery [place] vs. transplanted heart: [place] heart Qualified Code(s): I25.10 - Atherosclerotic heart disease of [place] coronary artery without angina pectoris
[2022-06-29] MEDS ORDERED: LANTUS PER UNIT CHARGE SQ SCH (09:00)
[2022-06-29 09:09] LABS: iSTAT Allen Test Pass; iSTAT Arterial Blood Gas HCO3 20 meg/L (19-24); iSTAT Arterial Blood Gas pCO2 31 mmHg (35-46); iSTAT Arterial Blood Gas pH 7.41 (7.35-7.45); iSTAT Arterial Blood Gas pO2 52 mmHg (80-95); iSTAT Carbon Dioxide 21 mmol/L (24-31); iSTAT Site R Brachial
[2022-06-29 09:26] LABS: D Dimer 3940 ug/L FEU (0-500)
[2022-06-29] MEDS: INSULIN ASPART PER UNIT CHARGE SC SCH ×4 (09:34→20:40)
[2022-06-29] MEDS: FLUTICASONE/VILANTEROL 100/25MCG 14 PUFFS/INHALER INH SCH (09:35)
[2022-06-29] MEDS: MIDODRINE HCL 2.5 MG TAB PO SCH ×2 (09:35→12:44)
[2022-06-29] MEDS: APIXABAN 5 MG TABLET PO SCH ×2 (09:35→20:40)
[2022-06-29] MEDS: PANTOprazole 40 MG TAB PO SCH (09:35)
[2022-06-29] MEDS: AMIODARONE 200 MG TAB PO SCH (09:35)
[2022-06-29] MEDS: LANTUS PER UNIT CHARGE SQ SCH (09:35)
[2022-06-29] MEDS: ASPIRIN 81 MG ECTAB PO SCH (09:35)
--- NOTE | 2022-06-29 10:25 | XRay Report ---
KUB CLINICAL HISTORY: Abdominal distention. FINDINGS: 3 AP supine abdominal radiographs are correlated with abdominal CT dated 02/13/2020. There are distended and gas-filled loops of small bowel which measure up to 3.3 cm diameter. Small bowel ob struction is not excluded. No evidence of intraperitoneal free air is seen on these supine images. Th ere are no abnormal abdominal calcifications. Advanced atherosclerotic change is seen throughout the abdominal vasculature. The skeletal structures are osteopenic and appear intact. There is lumbosacral spondylosis. IMPRESSION: There are numerous distended and gas-filled loops of small bowel. Developing obstruction is not excluded. Correlate clinically. Electronically signed by: Bin Dove M.D. 06/29/2022 10:23 AM
[2022-06-29] MEDS ORDERED: SODIUM CHLORIDE 0.9% 1000ML 1,000 ML IV PRN (10:34)
--- NOTE | 2022-06-29 10:42 | Critical Care Consultation ---
Date of Consultation June 29, 2022 Assessment & Plan (1) Hypotension: (2) Respiratory distress: (3) Abdominal distention: (4) Diabetic infection of right foot: (5) PAF (paroxysmal atrial fibrillation): (6) CAD (coronary artery disease): (7) Hyperlipidemia: (8) Acute osteomyelitis of right foot: Plan Reason Critically Ill: 52-year-old here with a history significant for ESRD, HFrEF, Type 2 Diabetes Mellitus who presented with right foot osteomyelitis and who was admitted for hypotension, with concerns for blood pressure drop during HD. Neuro - [facility] ICU: NEGATIVE No acute needs Cardiac - Hypotension in the setting of ESRD - Started on midodrine 2.5 mg TID increase to 5mg TID - Phenylephrine as needed for hypotension with HD CHF - TTE from 04/2022 with moderately reduced systolic function. EF= 35-40%. Severe hypokinesis of mid inferolateral wall severe LVH. Paroxysmal Atrial Fibrillation - Continue apixaban - Continue amiodarone - continue asp 81mg - continue statin Respiratory - Acute on Chronic Hypoxic Respiratory Failure - History of restrictive lung disease secondary to obesity, KISHAN - chronically on 4L NC at home. - Duo nebs QID - albuterol inhaler prn - Breo daily - CPAP at night GI - Abdominal Distension - KUB with concern for ileus vs SOB - Avoid phospate containing agents due to ESRD- could use tap water or soap suds enema Carb Consistent, Renal diet RENAL/LYTES - ESRD on HD - Last HD yesterday, no ultrafiltrate due to hypotension - Current hospital weight is below his estimated dry weight - Plan for HD this afternoon. - Nephrology is consulted. - No concerns at this time ENDO - DM2 - Most recent Hemoglobin a1c= 7.6 (05/02/2022) - Pharmacy glycemic consult - Lantus 10 units daily - SSI with a carb ratio of 15 and correction factor of 45 HEME - Hemoglobin stable at 10.4, around his baseline ID - Osteomyelitis Right Foot - Afebrile without leukocytosis, hypotensive- concerns for sepsis - Bone culture from last admission (04/2022) grew Group B Strep - S/p excision of 3rd, 4th, and 5th metatarsals on right 04/2022 - Blood cultures without growth at 24 hours - Right wound culture is pending - Continue vancomycin/Zosyn - ID is consulted - Podiatry is consulted - 3 phase bone scan is pending LINES/IV ACCESS - PIVs intact. DVT PROPHYLAXIS - chronically on apixaban Thank you for allowing us to be part of this patient's care. Please refer to Dr. Mason's documentation for any further recommendations. Supervising Physician Co-Signing Physician Notes Dr. Watkins was resident physician during care of patient. I separately evaluated patient for mata portions of the history and the exam. I was present during the critical portion of medical decision making, and I discussed the case with the resident. I generally agree with the findings and plan. Transferred to the ICU for possible need of vasoactive medication to facilitate hemodialysis. There is concern the patient may be exhibiting signs of sepsis secondary to chronic osteomyelitis. Cultures have been obtained and the patient is on antibiotics. Normally anticoagulated with apixaban for paroxysmal atrial fibrillation. Patient has chronic respiratory failure on 4 L oxygen at home, cirrhosis of the liver with ascites, paroxysmal atrial fibrillation. History of Present Illness Attending Physician: Hood Hendricks MD History of Present Illness 52 year old male with a past medical history of ESRD on HD MWF, DM, KISHAN, CHF, HTN, HLD, cirrhosis that was a transfer from [place]. He was admitted at [facility] from 05/09/22-05/17/22 for treatment of right foot osteomyelitis. PICC line was placed and he was receiving Cefazolin 1gm IV for the past 6 weeks. Presented to [place] with pain/non-functioning of PICC line. Transfer to [facility] per pt request and no HD at [facility]. Since admission is being treated with Vanc/Zosyn for right right foot osteomyelitis. Increased oxygen requirement 4L baseline at home. Went from 5L to 12L this morning and is now on CPAP. Had HD yesterday, but did not take off any fluid. He has been hypotensive with blood pressures 80-90s/30s-50s. Over the past few weeks at home has had increased fatigue, weakness right hip pain. He states that he has been having ongoing dyspnea for the past week, worse this morning. No chest pain. Some abdomen distension/pain. 2 BM this morning, prior to that had some constipation. Allergies Allergy/AdvReac Type Severity Reaction Status Date / Time codeine AdvReac Mild DELIRIUM,ME Verified 06/28/22 04:17 AN tramadol AdvReac Mild nausea and Verified 06/28/22 04:17 vomiting Home Medications Medication Instructions Recorded Confirmed Type miscellaneous medical supply 1 ea miscellaneous DAILY #1 ea 03/08/21 06/26/22 Rx acetaminophen 500 mg capsule 1,000 mg PO TID PRN Pain #180 caps 11/21/21 06/28/22 Rx montelukast 10 mg tablet 10 mg PO HS 01/25/22 06/28/22 History insulin glargine U-300 conc 300 33 unit (0.11 mL) subcut QAM #4.5 02/22/22 06/28/22 Rx unit/mL (1.5 mL) subcutaneous pen mL (Toujeo SoloStar U-300 Insulin) cholecalciferol (vitamin D3) 125 125 mcg PO DAILY 03/16/22 06/26/22 History mcg (5,000 unit) capsule amiodarone 200 mg tablet 200 mg PO QAM #90 tabs 03/21/22 06/28/22 Rx apixaban 5 mg tablet (Eliquis) 5 mg PO BID #180 tabs 03/21/22 06/28/22 Rx atorvastatin 40 mg tablet 40 mg PO HS #90 tabs 03/21/22 06/28/22 Rx fluticasone furoate 100 1 inh inhalation DAILY 04/04/22 06/28/22 History mcg-vilanterol 25 mcg/dose inhalation powder (Breo Ellipta) hydrochlorothiazide 25 mg tablet 25 mg PO BID 04/04/22 06/28/22 History omeprazole 20 mg tablet,delayed 20 mg PO DAILY 04/04/22 06/28/22 History release albuterol sulfate 90 mcg/actuation 2 puff inhalation Q6H PRN 05/02/22 06/28/22 Rx aerosol inhaler shortness of breath or wheezing #18 grams Hospital Bed Homecare #1 ea 05/25/22 06/26/22 Rx ondansetron 4 mg disintegrating 4 mg PO Q8H PRN nausea and 06/07/22 06/26/22 Rx tablet vomiting #30 tabs betamethasone valerate 0.1 % 1 applic topical BID PRN skin 06/08/22 06/28/22 Rx topical cream irritation #15 grams insulin glulisine U-100 100 4 unit (0.04 mL) subcut ONCE #1 box 06/14/22 06/28/22 Rx unit/mL subcutaneous pen (Apidra SoloStar U-100 Insulin) amlodipine 10 mg tablet 10 mg PO DAILY #90 tabs 06/20/22 06/28/22 Rx aspirin 81 mg chewable tablet 81 mg PO QAM 06/20/22 06/28/22 History ranolazine 500 mg tablet,extended 500 mg PO BID 06/20/22 06/26/22 History release,12 hr Patient History Medical History Acute metabolic encephalopathy Acute on chronic diastolic CHF (congestive heart failure) Anemia of chronic disease Arthritis CAD (coronary artery disease) 08/2015- L Cx stent; 11/2017- RCA stent, L Cx stent patent; 07/2019- LM wnl, prox-mid LAD 30%, mid-L Cx stent patent, RCA stent stent with area between stents 30-40%. Sees [facility], Dr Sharad Norton. 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) Repaired s/p PPV, MP, EL (SNT) Dialysis AV fistula malfunction Dialysis AV fistula malfunction Diverticular disease Elevated troponin End-stage renal disease on hemodialysis ESRD (end stage renal disease) on dialysis dialysis sun-sun-sun is getting dialysis sat prior to colonoscopy 09/29/2019 and will have it again after on sunday09/30/2019 GERD (gastroesophageal reflux disease) History of COVID-19 (12/2020) Hyperkalemia Hyperlipidemia Hypertension Moderate pulmonary hypertension Nuclear sclerosis of both eyes Obstructive sleep apnea cpap on 4L N/C On home oxygen therapy 4L N/C at all times Osteoarthritis, hip, bilateral Pleural effusion, bilateral 11/2018 Pneumonia Presence of arteriovenous fistula for hemodialysis left forearm Secondary pulmonary hypertension Status post placement of implantable loop recorder (07/07/21) Vitreous hemorrhage of right eye due to diabetes mellitus (12/04/18) Surgical History History of cardiac cath X 2 - 11/2017 - [facility] - SOB - 1 stent placed - follows w/ Dr. Zuniga - 2016 - [facility] - SOB - 1 stent placed History of colonoscopy History of foot surgery left x 4 History of heart artery stent X2 History of placement of chest tube left lung for pleural effusion 11/2018 History of tooth extraction all teeth S/P arteriovenous (AV) fistula creation 04/2016 Dr. Mena placed S/P AV sera ablation (01/18/22) S/P bilateral cataract extraction (05/2021) S/P cardiac catheterization Dr. Sharad Calvillo at [facility]- 01/09/22 S/P cardiac pacemaker procedure (01/18/22) secondary to symptomatic bradycardia Status post amputation of toe (12/29/21) R 2nd toe d/t infection Status post amputation of toe of right foot (01/27/22) metatarsal resection R toe 2-5 d/t osteomyelitis/gangrene Family History Mother Diabetes Coronary heart disease Heart disease Hypertension Stroke Father Diabetes Coronary heart disease Heart disease Myocardial infarction Hypertension Stroke Other Kidney disease No family history of adverse response to anesthesia Denies family history of Ovarian cancer Prostate cancer Breast cancer Lung cancer Colorectal cancer Social History Smoking Status: Former smoker Second Hand Exposure: No; Do You Dip or Chew Tobacco: No; Hx Alcohol Use: No Hx Substance Use: No Preferred Language: Mohawk Communication Ability: Effective Communication Ability Comment: significant otherKaycee speaks and writes/read Mohawk well Visual Impairment: No Limitations Hearing Ability: Normal 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 [employer] Required: No Beliefs That Will Affect Care: None marital status: Single Current Living Situation: Spouse Current Living Situation Comment: lives with significant other near [place] current occupational status: disabled How many Children do You have: 0 Other Information That Helps 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 Safe at Home: Yes Safety Concerns: Feels Safe At This Time Childhood Exposure to Second-Hand Smoke: Yes Diet: regular Diet Comment: regular caffeine: No during the past year weight has: remained stable Dental Care, Regularly: No Physical Activity Frequency: 1-2 Times per Week Physical Activity Frequency Comment: walk Seatbelt Use: always Sunscreen Use: No Assistive Devices: CPAP, Hospital Bed, Oxygen - Continuous, Walker and Wheelchair Review of Systems Review of Systems: As per above Physical Exam Physical Exam: Constitutional: well-appearing, no acute distress HEENT: NCAT, no conjunctival injection CV: regular rhythm, no murmur appreciated, extremities well-perfused Resp:diminished breath sounds, no wheezes/rales/rhonchi appreciated GI: soft, distended, mildly tender, BS normoactive MSK: Right foot bandaged, wound care photos reviewed. Dress clean and dry Skin: warm, dry, no rash appreciated, AV fistula present Neuro: alert, oriented, no focal neurologic deficit appreciated Results & Data Results & Data Vital Signs (Past 12 Hours) Vital Signs Temp Pulse Pulse Pulse Resp BP Pulse Ox 06/29/22 10:32 90 48 H 90 06/29/22 10:32 70 38 H 96 06/29/22 08:23 70 67/25 L 90 06/29/22 09:20 115/51 L 06/29/22 08:32 76/44 L 06/29/22 07:23 70 06/29/22 07:09 77 28 H 90 06/29/22 06:44 92/54 L 06/29/22 02:53 86/56 L 06/29/22 02:40 36.5 C 71 18 87/41 L 98 06/29/22 01:29 71 88/56 L 06/29/22 00:34 36.1 C L 70 20 86/52 L 92 06/29/22 00:04 70 06/28/22 23:32 70 18 90 06/28/22 23:08 06/28/22 23:07 86/56 L O2 Del Method O2 Flow Rate FiO2 06/29/22 10:32 Nasal Cannula 15 06/29/22 10:32 80 06/29/22 08:23 High Flow Nasal Cannula 12 06/29/22 09:20 06/29/22 08:32 06/29/22 07:23 06/29/22 07:09 Nasal Cannula 6 06/29/22 06:44 06/29/22 02:53 06/29/22 02:40 CPAP 06/29/22 01:29 06/29/22 00:34 CPAP 6 06/29/22 00:04 06/28/22 23:32 CPAP 6 06/28/22 23:08 CPAP 5 06/28/22 23:07 Resident Activity Tracking Resident Involvement: Resident Care Provided Care Provided: Adult Hospital Medicine (6) CAD (coronary artery disease) Coronary Disease-Associated Artery/Lesion type: [place] artery [place] vs. transplanted heart: [place] heart Associated angina: without angina Qualified Code(s): I25.10 - Atherosclerotic heart disease of [place] coronary artery without angina pectoris
--- NOTE | 2022-06-29 10:56 | Nephrology Progress Note ---
Date of Service June 29, 2022 Assessment & Plan (1) End-stage renal disease on hemodialysis: Plan: * Mr. Walker was dialyzed yesterday without complication. No Uf provided due to relative hypotension and current hospital weight below EDW. SBP 100-120 mm Hg during HD yesterday * Outpatient HD Rx: MWF 4.25 hours Qb 500 Qd 600, 2K 2.5Ca, 139Na, 40HCO3. EDW 103 kg. Normally dialyzes as outpatient at [facility] under the care of Dr. Mojica * This morning Mr. Walker has worsening dyspnea. CXR is c/w CHF. staff electronic warfare officer has recorded SBP 70's. POC discussed w/ primary service and HD staff electronic warfare officer. Although patient is afebrile and without leukocytosis, relative hypotension is concerning for underlying infection. Recommend transfer to ICU for close monitoring. Patient may require pressor support. HD will be provided and UF attempted this afternoon once patient is transferred to a monitored/ICU setting (2) Sepsis: Plan: * Osteomyelitis R foot s/p partial excision of 3rd, 4th, 5th metatarsals and excision of R foot wound 05/13/[address] Rust * Group B strep bacteremia (PCN sensitive) - completed 6 weeks IV Cefazolin * 06/28/22 Blood Cx - NG x 24 hours * 06/28/22 R foot Cx - pending * Currently on empiric Zosyn (3) Infection of right foot: Plan: * Ortho following, recommended bone scan * Currently on empiric Zosyn (4) Abdominal distention: Plan: * KUB x-ray concerning for developing ileus or SBO * Monitor clinically, consider tap water or soap suds enema. Avoid phosphate containing solutions due to ESKD (5) Weakness: Plan: * Patient reports fall at home, hip discomfort. Imaging reported to be negative for fracture by admitting service * Monitor for infection, await blood culture results * Physical therapy evaluation Admission and Anticipated Discharge Date Admission Date: June 28, 2022 Subjective Mr. Walker was evaluated in his hospital room this morning. He c/o progressive dyspnea and abdominal distention. He has been placed on high flow oxygen Review of Systems Constitutional: no fever Eyes: no problem reported Ear, Nose, Mouth, Throat: no problem reported Respiratory: no dyspnea Cardiovascular: no chest pain Gastrointestinal: no nausea, no vomiting and no diarrhea/loose stools Neurologic: no confusion Physical Exam Constitutional: + ill appearing; not in distress Eyes: PERRL, conjunctivae normal, anicteric sclerae ENMT: external ear and nose normal, oropharynx normal Neck: trachea midline, no thyromegaly Respiratory: normal respiratory effort, lungs clear to auscultation Cardiovascular: Rate/Rhythm: regular rate and regular rhythm Extremities: + AV fistula (+ bruit) Gastrointestinal (Abdomen): Inspection/Auscultation: + abdomen distended and + hypoactive bowel sounds Percussion/Palpation: abdomen nontender and no guarding Neurologic: Speech / Cognition: normal speech and normal cognition Results & Data Vital Signs (Past 12 Hours) Vital Signs Temp Pulse Pulse Pulse Resp BP Pulse Ox 06/29/22 08:23 70 67/25 L 90 06/29/22 09:20 115/51 L 06/29/22 08:32 76/44 L 06/29/22 07:23 70 06/29/22 07:09 77 28 H 90 06/29/22 06:44 92/54 L 06/29/22 02:53 86/56 L 06/29/22 02:40 36.5 C 71 18 87/41 L 98 06/29/22 01:29 71 88/56 L 06/29/22 00:34 36.1 C L 70 20 86/52 L 92 06/29/22 00:04 70 06/28/22 23:32 70 18 90 06/28/22 23:08 06/28/22 23:07 86/56 L O2 Del Method O2 Flow Rate 06/29/22 08:23 High Flow Nasal Cannula 12 06/29/22 09:20 06/29/22 08:32 06/29/22 07:23 06/29/22 07:09 Nasal Cannula 6 06/29/22 06:44 06/29/22 02:53 06/29/22 02:40 CPAP 06/29/22 01:29 06/29/22 00:34 CPAP 6 06/29/22 00:04 06/28/22 23:32 CPAP 6 06/28/22 23:08 CPAP 5 06/28/22 23:07 Laboratory Results Laboratory Results - last 24 hr 06/28/22 06/28/22 06/28/22 08:32 10:19 14:33 WBC RBC Hgb Hct MCV MCH MCHC RDW Std Deviation RDW Coeff of Octavio Plt Count MPV Immature Gran % (Auto) Neut % (Auto) Lymph % (Auto) Edwards % (Auto) Eos % (Auto) Baso % (Auto) Neut # (Auto) Lymph # (Auto) Edwards # (Auto) Eos # (Auto) Baso # (Auto) Immature Gran # (Auto) Absolute Nucleated RBC Nucleated RBC % (auto) PT INR D-Dimer Sample Site POC pH POC pCO2 POC pO2 POC HCO3 POC Total CO2 POC Base Excess POC ABG O2 Sat Rahul Test O2 Delivery Device Sodium Potassium Chloride Carbon Dioxide Anion Gap BUN Creatinine Est Cr Clr Drug Dosing Est GFR ( Amer) Est GFR (Non-Af Amer) BUN/Creatinine Ratio Glucose POC Glucose 69 L* Lactate 2.7 H* Calcium Magnesium Total Bilirubin AST ALT Alkaline Phosphatase Total Protein Albumin Globulin Albumin/Globulin Ratio Stl C. diff Tox B Gene Random Vancomycin Hep Bs Antigen Pending Hep Bs Ag Confirmation Pending 06/28/22 06/28/22 06/28/22 14:34 14:58 16:11 WBC RBC Hgb Hct MCV MCH MCHC RDW Std Deviation RDW Coeff of Octavio Plt Count MPV Immature Gran % (Auto) Neut % (Auto) Lymph % (Auto) Edwards % (Auto) Eos % (Auto) Baso % (Auto) Neut # (Auto) Lymph # (Auto) Edwards # (Auto) Eos # (Auto) Baso # (Auto) Immature Gran # (Auto) Absolute Nucleated RBC Nucleated RBC % (auto) PT INR D-Dimer Sample Site POC pH POC pCO2 POC pO2 POC HCO3 POC Total CO2 POC Base Excess POC ABG O2 Sat Rahul Test O2 Delivery Device Sodium Potassium Chloride Carbon Dioxide Anion Gap BUN Creatinine Est Cr Clr Drug Dosing Est GFR ( Amer) Est GFR (Non-Af Amer) BUN/Creatinine Ratio Glucose POC Glucose 68 L* 72 105 H Lactate Calcium Magnesium Total Bilirubin AST ALT Alkaline Phosphatase Total Protein Albumin Globulin Albumin/Globulin Ratio Stl C. diff Tox B Gene Random Vancomycin Hep Bs Antigen Hep Bs Ag Confirmation 06/28/22 06/28/22 06/29/22 16:59 20:21 05:03 WBC RBC Hgb Hct MCV MCH MCHC RDW Std Deviation RDW Coeff of Octavio Plt Count MPV Immature Gran % (Auto) Neut % (Auto) Lymph % (Auto) Edwards % (Auto) Eos % (Auto) Baso % (Auto) Neut # (Auto) Lymph # (Auto) Edwards # (Auto) Eos # (Auto) Baso # (Auto) Immature Gran # (Auto) Absolute Nucleated RBC Nucleated RBC % (auto) PT INR D-Dimer Sample Site POC pH POC pCO2 POC pO2 POC HCO3 POC Total CO2 POC Base Excess POC ABG O2 Sat Rahul Test O2 Delivery Device Sodium Potassium Chloride Carbon Dioxide Anion Gap BUN Creatinine Est Cr Clr Drug Dosing Est GFR ( Amer) Est GFR (Non-Af Amer) BUN/Creatinine Ratio Glucose POC Glucose 118 H 140 H 131 H Lactate Calcium Magnesium Total Bilirubin AST ALT Alkaline Phosphatase Total Protein Albumin Globulin Albumin/Globulin Ratio Stl C. diff Tox B Gene Random Vancomycin Hep Bs Antigen Hep Bs Ag Confirmation 06/29/22 06/29/22 06/29/22 05:33 05:33 05:33 WBC 9.85 RBC 3.75 L Hgb 10.4 L Hct 34.4 L MCV 91.7 MCH 27.7 MCHC 30.2 L RDW Std Deviation 62.6 H RDW Coeff of Octavio 19.1 H Plt Count 219 MPV 11.1 Immature Gran % (Auto) 0.4 Neut % (Auto) 80.6 Lymph % (Auto) 8.7 Edwards % (Auto) 8.7 Eos % (Auto) 0.7 Baso % (Auto) 0.9 Neut # (Auto) 7.93 H Lymph # (Auto) 0.86 L Edwards # (Auto) 0.86 H Eos # (Auto) 0.07 Baso # (Auto) 0.09 Immature Gran # (Auto) 0.04 Absolute Nucleated RBC 0.02 Nucleated RBC % (auto) 0.2 PT 14.6 H INR 1.4 H D-Dimer 3940 H* Sample Site POC pH POC pCO2 POC pO2 POC HCO3 POC Total CO2 POC Base Excess POC ABG O2 Sat Rahul Test O2 Delivery Device Sodium Potassium Chloride Carbon Dioxide Anion Gap BUN Creatinine Est Cr Clr Drug Dosing Est GFR ( Amer) Est GFR (Non-Af Amer) BUN/Creatinine Ratio Glucose POC Glucose Lactate Calcium Magnesium Total Bilirubin AST ALT Alkaline Phosphatase Total Protein Albumin Globulin Albumin/Globulin Ratio Stl C. diff Tox B Gene Random Vancomycin 21.6 H Hep Bs Antigen Hep Bs Ag Confirmation 06/29/22 06/29/22 06/29/22 05:33 06:59 07:28 WBC RBC Hgb Hct MCV MCH MCHC RDW Std Deviation RDW Coeff of Octavio Plt Count MPV Immature Gran % (Auto) Neut % (Auto) Lymph % (Auto) Edwards % (Auto) Eos % (Auto) Baso % (Auto) Neut # (Auto) Lymph # (Auto) Edwards # (Auto) Eos # (Auto) Baso # (Auto) Immature Gran # (Auto) Absolute Nucleated RBC Nucleated RBC % (auto) PT INR D-Dimer Sample Site POC pH POC pCO2 POC pO2 POC HCO3 POC Total CO2 POC Base Excess POC ABG O2 Sat Rahul Test O2 Delivery Device Sodium 135 L Potassium 5.4 H Chloride 96 L Carbon Dioxide 25 Anion Gap 14 H BUN 42 H D Creatinine 5.20 H* D Est Cr Clr Drug Dosing 18.5 Est GFR ( Amer) 13.4 Est GFR (Non-Af Amer) 11.6 BUN/Creatinine Ratio 8.1 L Glucose 124 H POC Glucose 176 H 180 H Lactate Calcium 8.5 L Magnesium 1.9 Total Bilirubin 0.6 AST 22 ALT < 3 L Alkaline Phosphatase 134 H Total Protein 6.5 Albumin 3.1 L Globulin 3.4 Albumin/Globulin Ratio 0.9 Stl C. diff Tox B Gene Random Vancomycin Hep Bs Antigen Hep Bs Ag Confirmation 06/29/22 06/29/22 08:50 Unknown WBC RBC Hgb Hct MCV MCH MCHC RDW Std Deviation RDW Coeff of Octavio Plt Count MPV Immature Gran % (Auto) Neut % (Auto) Lymph % (Auto) Edwards % (Auto) Eos % (Auto) Baso % (Auto) Neut # (Auto) Lymph # (Auto) Edwards # (Auto) Eos # (Auto) Baso # (Auto) Immature Gran # (Auto) Absolute Nucleated RBC Nucleated RBC % (auto) PT INR D-Dimer Sample Site R Brachial POC pH 7.41 POC pCO2 31 L POC pO2 52 L POC HCO3 20 POC Total CO2 21 L POC Base Excess -5.0 POC ABG O2 Sat 87.0 L Rahul Test Pass O2 Delivery Device Cannula Sodium Potassium Chloride Carbon Dioxide Anion Gap BUN Creatinine Est Cr Clr Drug Dosing Est GFR ( Amer) Est GFR (Non-Af Amer) BUN/Creatinine Ratio Glucose POC Glucose Lactate Calcium Magnesium Total Bilirubin AST ALT Alkaline Phosphatase Total Protein Albumin Globulin Albumin/Globulin Ratio Stl C. diff Tox B Gene TNP Random Vancomycin Hep Bs Antigen Hep Bs Ag Confirmation PG Care Time/CCT Total # of Minutes Spent Total Time Spent with Patient: Total time spent is greater than 50% in coordination of care (as documented) at patient's floor/unit and/or counseling patient: Coding Level of Care Code 95032 SUB INP/OBS CARE 3/50MIN Diagnoses End-stage renal disease on hemodialysis N18.6; Z99.2 Sepsis A41.9 Infection of right foot L08.9 Abdominal distention R14.0 Weakness R53.1
--- NOTE | 2022-06-29 11:01 | Pharmacy Report ---
Pharmacy PK ABX Note - Date of Service June 29, 2022 - Assessment and Plan Assessment 52 year old M receiving empiric vancomycin and Zosyn for treatment of right foot osteomyelitis. Pertinent microbiologic data includes: right foot cultures growing group B Strep, MSSA, and Cutibacterium acnes in April 2022 w/ history of Pseudomonas aeruginosa in right foot 12/2021. Patient has T2DM and ESRD requiring HD. ID consulted. Day # 2 of antimicrobial therapy. Plan Vancomycin * Loading dose: 2000 mg IV x 1 * Random level this morning of 21.6 * Will plan to dose based on random level and re-dose as needed after HD * HD yesterday and scheduled again for today * Ordered tentative 500 mg IV dose x 1 only to be given if patient does have HD today * Follow-up random level tomorrow morning given uncertainty in hemodialysis schedule Zosyn * 4.5 g IV q12h -appropriate for patient on HD Pharmacy will continue to follow and will adjust dose/frequency as necessary. Thank you. Pharmacy has transitioned to AUC monitoring for vancomycin. AUC/ANKIT is the preferred PK/PD target and is associated with decreased risk of nephrotoxicity compared to traditional trough targets.
--- NOTE | 2022-06-29 11:05 | Ultrasound Report ---
US abdomen ltd ascites CLINICAL HISTORY: eval ascites COMPARISON STUDY: FINDINGS: Real-time sonographic imaging of the abdomen was performed with termite control service representative images submi tted. There is a small to moderate amount of scattered ascites seen within the abdomen. IMPRESSION: Small to moderate amount of ascites. ACT 112: Negative or not required by law. Electronically signed by: Erwin Mitchell M.D. 06/29/2022 11:03 AM
--- NOTE | 2022-06-29 11:06 | XRay Report ---
XR chest 1V portable HISTORY: Shortness of breath. eval pulm congestion COMPARISON: Chest 06/28/2022. FINDINGS: No pneumothorax. No pleural effusions. The heart remains enlarged. There is mild pulmonary vascular congestion which has slightly improved. Right-sided pacemaker again noted. A right PICC like ly terminates in the SVC. IMPRESSION: Cardiomegaly with slight improvement in the pulmonary vascular congestion. ACT 112: Negative or not required by law. Electronically signed by: Erwin Mitchell M.D. 06/29/2022 11:04 AM
[2022-06-29] MEDS ORDERED: OPTIRAY 320 500ml IV ONE (11:26)
--- NOTE | 2022-06-29 11:44 | Electrocardiogram Report ---
Test Reason : Blood Pressure : / mmHG Vent. Rate : 070 BPM Atrial Rate : 073 BPM P-R Int : 178 ms QRS Dur : 176 ms QT Int : 464 ms P-R-T Axes : 000 147 004 degrees QTc Int : 501 ms AV dual-paced rhythm Biventricular pacemaker detected Cannot confirm atrial capture Abnormal ECG When compared with ECG of 28-JUN-2022 05:51, No significant change was found Confirmed by Riley Maciel ([id number]) on 06/29/2022 11:44:26 AM Referred By: Taya Randall Confirmed By:Riley Maciel
--- NOTE | 2022-06-29 11:59 | CT Scan Report ---
CT ANGIOGRAPHY OF THE CHEST, PULMONARY EMBOLUS PROTOCOL CLINICAL HISTORY: Shortness of breath. Evaluate for pulmonary embolus. COMPARISON STUDY: Chest radiograph performed earlier today. Chest CT April 07, 2021. Chest CT Apr. TECHNIQUE: Following IV administration of 111 mL of Optiray, helical axial images of the chest were o btained utilizing the pulmonary embolus protocol. Maximal intensity projections and sagittal and cor onal reformats were viewed on an independent 3D workstation. IV contrast was administered without co mplication. Automated exposure control was utilized for the study. A dose lowering technique was ut ilized adhering to the principles of ALARA. CT DOSE: 666.32 mGy.cm FINDINGS: No pulmonary emboli are identified although the segmental and subsegmental pulmonary arter ies are suboptimally assessed due to respiratory motion. There is moderate cardiomegaly and extensive coronary artery calcification. A right subclavian pacer is in place. There is no pericardial effusio n. There is no pneumothorax. Small left pleural effusion is noted. There is a trace right pleural eff usion. Subpleural opacities within lungs favor atelectasis. There is no definite consolidation to sug gest pneumonia. There are mild groundglass opacities within the lungs. The lungs are suboptimally ass essed due to respiratory motion. Multiple mildly enlarged mediastinal and hilar lymph nodes are simil ar to prior CT. There are no acute fractures within the bony thorax. Hepatic cyst is incidentally not ed. There is nodularity of the liver surface. Small amount of upper abdominal ascites is present. IMPRESSION: 1. No pulmonary emboli identified although segmental and subsegmental pulmonary arteries within the l ower lobes suboptimally assessed due to respiratory motion. 2. Small left and trace right pleural effusions. Subpleural opacities favor atelectasis. 3. Groundglass opacities within the lungs which are nonspecific. These could reflect mild edema or le ss likely an infectious process. 4. Moderate cardiomegaly. Extensive coronary artery calcification. 5. No change in mild mediastinal and bilateral hilar lymphadenopathy which is nonspecific but likely benign. 6. Suspected cirrhosis. Small amount of upper abdominal ascites. ACT 112: Negative or not required by law. Electronically signed by: Manolo Shelton M.D. 06/29/2022 11:57 AM
[2022-06-29] MEDS ORDERED: LANTUS PER UNIT CHARGE SC ONE (12:00)
--- NOTE | 2022-06-29 15:18 | Surgery Consultation ---
Date of Consultation June 29, 2022 Assessment & Plan (1) Abdominal distention: This is a 52yM with a PMH of cirrhosis, DM, GERD, CAD with stents, pAfib, ESRD on HD, CHD who presents to the [facility] on 06/26/22 with complaints of weakness, recent falls, PICC line pain s/p removal at [place] now transferred here b ecause they do not have dialysis services. Today we have been consulted as patient has concern for ileus vs. developing SBO on KUB read this AM after he was complaining worsening abdominal distention that started about 1 wk ago. He also had an abdominal US today which showed a small-moderate amount of ascites. Patient states he is passing flatus and had 2 decent BMs this AM. He was transferred to the ICU today due to soft blood pressures. On exam his abdomen is distended with mild discomfort to palpation across the bilateral mid abdomen. He denies any nausea at the moment. He has no abdominal surgical history. Believe he is okay to continue with clears for now as long as remains without n/v or worsening distention as he is passing flatus and had some BMs today. No need for NGT unless worsening symptoms. Can repeat KUB tomorrow. No plans on surgical intervention on this patient is indicated at this time nor hopefully at all this admission given multiple medical comorbidities. (2) Ileus: History of Present Illness Attending Physician: Hood Hendricks MD History of Present Illness This is a 52yM with a PMH of cirrhosis, DM, GERD, CAD with stents, pAfib, ESRD on HD, CHD who presents to the [facility] on 06/26/22 with complaints of weakness, recent falls, PICC line pain s/p removal at [place] now transferred here because they do not have dialysis services. Today we have been consulted as patient has concern for ileus vs. developing SBO. He reports he has had abdominal distention over the last week or so with constipation prompting him to take 3 stool softeners at once during the day. The distention/discomfort has been getting worse of recent. KUB today showed numerous distended and gas-filled loops of small bowel and an ileus vs developing obstruction is not excluded. He also had an abdominal US which showed a small-moderate amount of ascites. Patie nt states he is passing flatus and had 2 decent BMs this AM. He did eat some oatmeal and a boost at breakfast but had to stop early due to abdominal discomfort. He denies any nausea/vomiting at the moment, but reports he has had some intermittent nausea and dry heaves over the last few months that he takes sublingual zofran for intermittently. Patient denies any abdominal surgical history. Of note he has been treated with IV abx for a R foot infection with abx due to stop 06/24, hence why he initially had the picc in place. Allergies Allergy/AdvReac Type Severity Reaction Status Date / Time codeine AdvReac Mild DELIRIUM,ME Verified 06/28/22 04:17 AN tramadol AdvReac Mild nausea and Verified 06/28/22 04:17 vomiting Home Medications Medication Instructions Recorded Confirmed Type miscellaneous medical supply 1 ea miscellaneous DAILY #1 ea 03/08/21 06/26/22 Rx acetaminophen 500 mg capsule 1,000 mg PO TID PRN Pain #180 caps 11/21/21 06/28/22 Rx montelukast 10 mg tablet 10 mg PO HS 01/25/22 06/28/22 History insulin glargine U-300 conc 300 33 unit (0.11 mL) subcut QAM #4.5 02/22/22 06/28/22 Rx unit/mL (1.5 mL) subcutaneous pen mL (Toujeo SoloStar U-300 Insulin) cholecalciferol (vitamin D3) 125 125 mcg PO DAILY 03/16/22 06/26/22 History mcg (5,000 unit) capsule amiodarone 200 mg tablet 200 mg PO QAM #90 tabs 03/21/22 06/28/22 Rx apixaban 5 mg tablet (Eliquis) 5 mg PO BID #180 tabs 03/21/22 06/28/22 Rx atorvastatin 40 mg tablet 40 mg PO HS #90 tabs 03/21/22 06/28/22 Rx fluticasone furoate 100 1 inh inhalation DAILY 04/04/22 06/28/22 History mcg-vilanterol 25 mcg/dose inhalation powder (Breo Ellipta) hydrochlorothiazide 25 mg tablet 25 mg PO BID 04/04/22 06/28/22 History omeprazole 20 mg tablet,delayed 20 mg PO DAILY 04/04/22 06/28/22 History release albuterol sulfate 90 mcg/actuation 2 puff inhalation Q6H PRN 05/02/22 06/28/22 Rx aerosol inhaler shortness of breath or wheezing #18 grams Hospital Bed Homecare #1 ea 05/25/22 06/26/22 Rx ondansetron 4 mg disintegrating 4 mg PO Q8H PRN nausea and 06/07/22 06/26/22 Rx tablet vomiting #30 tabs betamethasone valerate 0.1 % 1 applic topical BID PRN skin 06/08/22 06/28/22 Rx topical cream irritation #15 grams insulin glulisine U-100 100 4 unit (0.04 mL) subcut ONCE #1 box 06/14/22 06/28/22 Rx unit/mL subcutaneous pen (Apidra SoloStar U-100 Insulin) amlodipine 10 mg tablet 10 mg PO DAILY #90 tabs 06/20/22 06/28/22 Rx aspirin 81 mg chewable tablet 81 mg PO QAM 06/20/22 06/28/22 History ranolazine 500 mg tablet,extended 500 mg PO BID 06/20/22 06/26/22 History release,12 hr Patient History Medical History Acute metabolic encephalopathy Acute on chronic diastolic CHF (congestive heart failure) Anemia of chronic disease Arthritis CAD (coronary artery disease) 08/2015- L Cx stent; 11/2017- RCA stent, L Cx stent patent; 07/2019- LM wnl, prox-mid LAD 30%, mid-L Cx stent patent, RCA stent stent with area between stents 30-40%. Sees [facility], Dr Sharad Norton. 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) Repaired s/p PPV, MP, EL (SNT) Dialysis AV fistula malfunction Dialysis AV fistula malfunction Diverticular disease Elevated troponin End-stage renal disease on hemodialysis ESRD (end stage renal disease) on dialysis dialysis sun-sun-sun is getting dialysis sat prior to colonoscopy 09/29/2019 and will have it again after on sunday09/30/2019 GERD (gastroesophageal reflux disease) History of COVID-19 (12/2020) Hyperkalemia Hyperlipidemia Hypertension Moderate pulmonary hypertension Nuclear sclerosis of both eyes Obstructive sleep apnea cpap on 4L N/C On home oxygen therapy 4L N/C at all times Osteoarthritis, hip, bilateral Pleural effusion, bilateral 11/2018 Pneumonia Presence of arteriovenous fistula for hemodialysis left forearm Secondary pulmonary hypertension Status post placement of implantable loop recorder (07/07/21) Vitreous hemorrhage of right eye due to diabetes mellitus (12/04/18) Surgical History History of cardiac cath X 2 - 11/2017 - [facility] - SOB - 1 stent placed - follows w/ Dr. Zuniga - 2015 - [facility] - SOB - 1 stent placed History of colonoscopy History of foot surgery left x 4 History of heart artery stent X2 History of placement of chest tube left lung for pleural effusion 11/2018 History of tooth extraction all teeth S/P arteriovenous (AV) fistula creation 04/2016 Dr. Mena placed S/P AV sera ablation (01/18/22) S/P bilateral cataract extraction (05/2021) S/P cardiac catheterization Dr. Sharad Calvillo at [facility]- 01/09/22 S/P cardiac pacemaker procedure (01/18/22) secondary to symptomatic bradycardia Status post amputation of toe (12/29/21) R 2nd toe d/t infection Status post amputation of toe of right foot (01/27/22) metatarsal resection R toe 2-5 d/t osteomyelitis/gangrene Family History Mother Diabetes Coronary heart disease Heart disease Hypertension Stroke Father Diabetes Coronary heart disease Heart disease Myocardial infarction Hypertension Stroke Other Kidney disease No family history of adverse response to anesthesia Denies family history of Ovarian cancer Prostate cancer Breast cancer Lung cancer Colorectal cancer Social History Smoking Status: Former smoker Second Hand Exposure: No; Do You Dip or Chew Tobacco: No; Hx Alcohol Use: No Hx Substance Use: No Preferred Language: Hong [place]er Communication Ability: Effective Communication Ability Comment: significant otherKaycee speaks and writes/read [place]er well Visual Impairment: No Limitations Hearing Ability: Normal Dry Cell Tester Required: No Beliefs That Will Affect Care: None marital status: Single Current Living Situation: Spouse Current Living Situation Comment: lives with significant other near [place] current occupational status: disabled How many Children do You have: 0 Other Information That Helps 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 Safe at Home: Yes Safety Concerns: Feels Safe At This Time Childhood Exposure to Second-Hand Smoke: Yes Diet: regular Diet Comment: regular caffeine: No during the past year weight has: remained stable Dental Care, Regularly: No Physical Activity Frequency: 1-2 Times per Week Physical Activity Frequency Comment: walk Seatbelt Use: always Sunscreen Use: No Assistive Devices: CPAP, Hospital Bed, Oxygen - Continuous, Walker and Wheelchair Review of Systems Constitutional: + fatigue; no fever and no chills Respiratory: + dyspnea Gastrointestinal: + abdominal pain (across mid abdomen), + bloating, + nausea and + constipation (constipation over last week); no vomiting Physical Exam Physical Exam: awake/alert Constitutional: + obese Respiratory: wearing Bipap Gastrointestinal (Abdomen): Inspection/Auscultation: + abdomen distended Percussion/Palpation: + abdomen tender (mild discomfort across mid abdomen) Results & Data Vital Signs (Past 12 Hours) Vital Signs Temp Pulse Pulse Pulse Resp BP BP 06/29/22 15:00 70 21 06/29/22 14:46 129/88 06/29/22 14:46 70 23 06/29/22 14:32 70 24 06/29/22 14:32 153/70 H 06/29/22 14:35 36.8 C 70 06/29/22 14:30 70 23 06/29/22 14:01 131/64 06/29/22 14:01 70 19 06/29/22 14:00 70 20 06/29/22 13:30 70 22 06/29/22 13:00 70 24 06/29/22 13:00 89/52 L 06/29/22 12:30 70 20 06/29/22 12:15 70 24 06/29/22 12:00 70 24 06/29/22 11:39 116/52 L 06/29/22 11:39 70 19 06/29/22 11:34 69 24 06/29/22 12:00 06/29/22 12:36 06/29/22 12:26 36.8 C 06/29/22 10:56 36.7 C 70 29 H 84/28 L 06/29/22 07:20 06/29/22 10:32 90 48 H 06/29/22 10:32 70 38 H 06/29/22 08:23 70 67/25 L 06/29/22 09:20 115/51 L 06/29/22 08:32 76/44 L 06/29/22 07:23 70 06/29/22 07:09 77 28 H 06/29/22 06:44 92/54 L Pulse Ox O2 Del Method O2 Flow Rate FiO2 06/29/22 15:00 99 06/29/22 14:46 06/29/22 14:46 100 06/29/22 14:32 100 06/29/22 14:32 06/29/22 14:35 06/29/22 14:30 100 06/29/22 14:01 06/29/22 14:01 94 06/29/22 14:00 93 06/29/22 13:30 93 06/29/22 13:00 94 06/29/22 13:00 06/29/22 12:30 100 60 06/29/22 12:15 100 06/29/22 12:00 98 06/29/22 11:39 06/29/22 11:39 06/29/22 11:34 06/29/22 12:00 60 06/29/22 12:36 BiPAP 06/29/22 12:26 06/29/22 10:56 95 CPAP 06/29/22 07:20 Nasal Cannula 5 06/29/22 10:32 90 Nasal Cannula 15 06/29/22 10:32 96 80 06/29/22 08:23 90 High Flow Nasal Cannula 12 06/29/22 09:20 06/29/22 08:32 06/29/22 07:23 06/29/22 07:09 90 Nasal Cannula 6 06/29/22 06:44 Diagnostic Findings US abdomen ltd ascites CLINICAL HISTORY: eval ascites COMPARISON STUDY: FINDINGS: Real-time sonographic imaging of the abdomen was performed with product support sales representative images submitted. There is a small to moderate amount of scattered ascites seen within the abdomen. IMPRESSION: Small to moderate amount of ascites. ACT 112: Negative or not required by law. Electronically signed by: Erwin Mitchell M.D. 06/29/2022 11:03 AM KUB CLINICAL HISTORY: Abdominal distention. FINDINGS: 3 AP supine abdominal radiographs are correlated with abdominal CT dated 02/13/2020. There are distended and gas-filled loops of small bowel which measure up to 3.3 cm diameter. Small bowel obstruction is not excluded. No evidence of intraperitoneal free air is seen on these supine images. There are no abnormal abdominal calcifications. Advanced atherosclerotic change is seen throughout the abdominal vasculature. The skeletal structures are osteopenic and appear intact. There is lumbosacral spondylosis. IMPRESSION: There are numerous distended and gas-filled loops of small bowel. Developing obstruction is not excluded. Correlate clinically. Electronically signed by: Bin Dove M.D. 06/29/2022 10:23 AM PG Care Time/CCT Total # of Minutes Spent Total Time Spent with Patient: Total time spent is greater than 50% in coordination of care (as documented) at patient's floor/unit and/or counseling patient: Coding Level of Care Code 91107 INT INP/OBS CARE 1/40MIN Diagnoses Abdominal distention R14.0 Ileus K56.7
[2022-06-29] MEDS ORDERED: MIDODRINE HCL 10 MG TAB PO STA (16:16)
[2022-06-29] MEDS ORDERED: STAT IV Infusion **Titration per Protocol STA (16:21)
[2022-06-29] MEDS ORDERED: PHENYLEPHRINE/NSS 25 MG/250 ML BAG IV SCH (16:22)
[2022-06-29] MEDS ORDERED: VANCOMYCIN HCL 500 MG in DEXTROSE 5% 100 ML IV ONE (18:00)
[2022-06-29] MEDS: ATORVASTATIN 40 MG TAB PO SCH (20:40)
[2022-06-29] MEDS: MONTELUKAST SODIUM 10 MG TABLET PO SCH (20:41)
[2022-06-29] MEDS: PHENYLEPHRINE/NSS 25 MG/250 ML BAG IV PRN (21:15)
--- NOTE | 2022-06-29 21:39 | Orthopedic Progress Note ---
Date of Service June 29, 2022 Assessment & Plan (1) Infection of right foot: Plan Patient seen, evaluated, and treated. Dry sterile dressing change. Foot appears stable. Discussed case with hospital service. Awaiting 3 phase bone scan Will continue to follow while in house. Admission and Anticipated Discharge Date Admission Date: June 28, 2022 Subjective Patient seen at bedside resting comfortably. He relates no complaints. He has multiple family members present at today's visit. Review of Systems Review of Systems: All systems reviewed & are unremarkable except as noted in Subjective Physical Exam Constitutional: + frail appearing, cooperative and comfortable Eyes: normal visual jacinto by confrontation Neck: trachea midline Respiratory: normal respiratory effort Cardiovascular: Rate/Rhythm: regular rate and regular rhythm Musculoskeletal: Ankle: + deformity (Right fourth and fifth ray amputation) Skin: + wound (Sutures intact to surgical resected areas with poor healing noted. Wound lo) Psychiatric: Orientation: alert and oriented x 3 Results & Data Vital Signs (Past 12 Hours) Vital Signs Temp Pulse Pulse Pulse Resp BP BP 06/29/22 20:10 70 26 H 06/29/22 17:50 36.8 C 70 131/65 06/29/22 17:30 70 127/61 06/29/22 17:00 72 16 06/29/22 17:00 77/50 L 06/29/22 17:00 71 134/56 L 06/29/22 16:45 71 12 06/29/22 16:45 116/57 L 06/29/22 16:30 70 18 06/29/22 16:16 132/80 06/29/22 16:16 70 22 06/29/22 16:01 70 19 06/29/22 16:01 122/41 L 06/29/22 16:00 70 21 06/29/22 15:50 70 21 06/29/22 15:50 139/43 L 06/29/22 15:46 72/53 L 06/29/22 15:46 70 22 06/29/22 15:30 70 21 06/29/22 15:30 109/72 06/29/22 15:16 142/30 H 06/29/22 15:16 70 19 06/29/22 16:30 70 132/80 06/29/22 16:00 70 122/41 L 06/29/22 15:30 70 109/72 06/29/22 15:18 70 28 H 06/29/22 15:18 70 28 H 06/29/22 15:00 70 129/88 06/29/22 15:07 70 18 129/88 06/29/22 15:00 70 21 06/29/22 14:46 129/88 06/29/22 14:46 70 23 06/29/22 14:32 70 24 06/29/22 14:32 153/70 H 06/29/22 14:35 36.8 C 70 06/29/22 14:30 70 23 06/29/22 14:01 131/64 06/29/22 14:01 70 19 06/29/22 14:00 70 20 06/29/22 13:30 70 22 06/29/22 13:00 70 24 06/29/22 13:00 89/52 L 06/29/22 12:30 70 20 06/29/22 12:15 70 24 06/29/22 12:00 70 24 06/29/22 11:39 116/52 L 06/29/22 11:39 70 19 06/29/22 11:34 69 24 06/29/22 12:00 06/29/22 12:36 06/29/22 12:26 36.8 C 06/29/22 10:56 36.7 C 70 29 H 84/28 L 06/29/22 10:32 90 48 H 06/29/22 10:32 70 38 H Pulse Ox O2 Del Method O2 Flow Rate FiO2 06/29/22 20:10 96 40 06/29/22 17:50 06/29/22 17:30 06/29/22 17:00 98 06/29/22 17:00 06/29/22 17:00 06/29/22 16:45 96 06/29/22 16:45 06/29/22 16:30 99 06/29/22 16:16 06/29/22 16:16 98 06/29/22 16:01 95 06/29/22 16:01 06/29/22 16:00 96 06/29/22 15:50 97 06/29/22 15:50 06/29/22 15:46 06/29/22 15:46 95 06/29/22 15:30 98 06/29/22 15:30 06/29/22 15:16 06/29/22 15:16 100 06/29/22 16:30 06/29/22 16:00 06/29/22 15:30 06/29/22 15:18 98 60 06/29/22 15:18 99 BiPAP 60 06/29/22 15:00 06/29/22 15:07 100 BiPAP 06/29/22 15:00 99 06/29/22 14:46 06/29/22 14:46 100 06/29/22 14:32 100 06/29/22 14:32 06/29/22 14:35 06/29/22 14:30 100 06/29/22 14:01 06/29/22 14:01 94 06/29/22 14:00 93 06/29/22 13:30 93 06/29/22 13:00 94 06/29/22 13:00 06/29/22 12:30 100 60 06/29/22 12:15 100 06/29/22 12:00 98 06/29/22 11:39 06/29/22 11:39 06/29/22 11:34 06/29/22 12:00 60 06/29/22 12:36 BiPAP 06/29/22 12:26 06/29/22 10:56 95 CPAP 06/29/22 10:32 90 Nasal Cannula 15 06/29/22 10:32 96 80
[2022-06-30] MEDS: PHENYLEPHRINE/NSS 25 MG/250 ML BAG IV PRN (02:43)
[2022-06-30] MEDS: PIPERACILLIN/TAZOBACTAM 4.5 GM CI (over 4 hours) IV SCH ×2 (04:46→18:13)
[2022-06-30 05:05] LABS: Hematocrit (blood only) 32.9 % (42.0-52.0); Hemoglobin 9.9 g/dl (14.0-18.0); Mean Corpuscular Hemoglobin 27.7 pg (25.0-34.0); Mean Corpuscular Hgb Conc 30.1 g/dL (32.0-36.0); Mean Corpuscular Volume 92.2 fL (80.0-100.0); Nucleated RBC # (auto) 0.05 K/uL (0-0.12); Nucleated RBC % (auto) 0.4 %; Platelet Count 230 K/uL (130-400); RDW Coefficient of Variation 19.3 % (11.5-14.5); RDW Standard Deviation 63.2 fL (36.4-46.3); Red Blood Count 3.57 M/uL (4.70-6.10); White Blood Count 11.32 K/ul (4.8-10.8)
[2022-06-30 05:34] LABS: INR 1.6 (0.9-1.1); Prothrombin Time 17.5 Seconds (9.0-12.0)
[2022-06-30 05:55] LABS: Alanine Aminotransferase < 3 U/L (7-52); Albumin Level 2.6 gm/dl (3.4-5.0); Alkaline Phosphatase 114 U/L (34-104); Anion Gap 14 (3-11); Aspartate Aminotransferase 19 U/L (13-39); BUN Creatinine Ratio 8.4 (10-20); Bilirubin Direct 0.2 mg/dl (0-0.2); Bilirubin,Total 0.6 mg/dl (0.2-1.0); Blood Urea Nitrogen 35 mg/dl (6-23); Calcium 7.8 mg/dl (8.6-10.3); Carbon Dioxide 23 mmol/L (21-32); Chloride 102 mmol/L (98-107); Creatinine Clr Calc Pharmacy 23.9 ml/min; Est GFR (African American) 17.6 ml/min; Est GFR (Non-African American) 15.2 ml/min; Glucose 121 mg/dl (70-99(Fasting)); Magnesium 1.7 mg/dl (1.7-2.4); Phosphorus 5.2 mg/dl (2.5-4.9); Potassium 4.3 mmol/L (3.5-5.1); Sodium 139 mmol/L (136-145); Total Protein 5.8 gm/dl (6.0-8.3)
[2022-06-30] MEDS: MAGNESIUM SULFATE / D5W 1 GM/100 ML BAG IV SCH ×2 (06:43→08:24)
--- NOTE | 2022-06-30 06:54 | Critical Care Progress Note ---
Date of Service June 30, 2022 Assessment & Plan (1) Hypotension: (2) Respiratory distress: (3) Abdominal distention: (4) Diabetic infection of right foot: (5) PAF (paroxysmal atrial fibrillation): (6) CAD (coronary artery disease): (7) Hyperlipidemia: (8) Acute osteomyelitis of right foot: Plan Reason Critically Ill: 52-year-old here with a history significant for ESRD, HFrEF, Type 2 Diabetes Mellitus who presented with right foot osteomyelitis and who was admitted for hypotension, with concerns for blood pressure drop during HD. Neuro - [facility] ICU: NEGATIVE No acute needs Cardiac - Hypotension in the setting of ESRD - Started on midodrine 2.5 mg TID increase to 5mg TID - Phenylephrine as needed for hypotension with HD. - Blood pressures have generally been stable with a MAP >65 CHF - TTE from 04/2022 with moderately reduced systolic function. EF= 35-40%. Severe hypokinesis of mid inferolateral wall severe LVH. Paroxysmal Atrial Fibrillation - Continue apixaban - Continue amiodarone CAD - History of 08/2015- L Cx stent; 11/2017- RCA stent, L Cx stent patent; 07/2019- LM wnl, prox-mid LAD 30%, mid-L Cx stent patent, RCA stent stent with area between stents 30-40%. - continue asp 81mg - continue statin Respiratory - Acute on Chronic Hypoxic Respiratory Failure - History of restrictive lung disease secondary to obesity, KISHAN - chronically on 4L NC at home. - Duo nebs QID - albuterol inhaler prn - Breo daily - CPAP at night GI - Abdominal Distension - KUB with concern for ileus vs SOB - Avoid phospate containing agents due to ESRD- could use tap water or soap suds enema Carb Consistent, Renal diet RENAL/LYTES - ESRD on HD - Last HD yesterday; tolerated well - Current hospital weight is below his estimated dry weight - Plan for HD again - Nephrology is consulted. - No concerns at this time ENDO - DM2 - Most recent Hemoglobin a1c= 7.6 (05/02/2022) - Pharmacy glycemic consult - Lantus 8 units daily - SSI with a carb ratio of 12 and correction factor of 35 HEME - Hemoglobin 9.9, stable around his baseline ID - Osteomyelitis Right Foot - Afebrile without leukocytosis, hypotensive- concerns for sepsis - Bone culture from last admission (04/2022) grew Group B Strep - S/p excision of 3rd, 4th, and 5th metatarsals on right 04/2022 - Blood cultures without growth at 24 hours - Right wound culture is pending - Continue vancomycin/Zosyn - ID is consulted - Podiatry is consulted - 3 phase bone scan is pending LINES/IV ACCESS - PIVs intact. DVT PROPHYLAXIS - chronically on apixaban Thank you for allowing us to be part of this patient's care. Please refer to Dr. Mason's documentation for any further recommendations. Admission and Anticipated Discharge Date Admission Date: June 28, 2022 Supervising Physician Co-Signing Physician Notes Dr. Watkins was resident physician during care of patient. I separately evaluated patient for mata portions of the history and the exam. I was present during the critical portion of medical decision making, and I discussed the case with the resident. I generally agree with the findings and plan. Patient was on phenylephrine briefly overnight. I believe there was no real clinical evidence of hypoperfusion and I am not strongly led to believe the blood pressure recorded was truly dental sales representative of the patient's perfusion status. Blood pressure adequate today. He has been able to be transitioned to nasal cannula from overnight BiPAP. Patient would be stable for downgrade out of ICU. Subjective Doing well this morning. Still have some abdomen pain, had a BM this morning. Denies chest pain. Does state that he is dyspneic. Review of Systems Review of Systems: As per above Physical Exam Physical Exam: Constitutional: well-appearing, no acute distress HEENT: NCAT, no conjunctival injection CV: regular rhythm, no murmur appreciated, extremities well-perfused Resp:diminished breath sounds, no wheezes/rales/rhonchi appreciated GI: soft, distended, mildly tender, BS normoactive MSK: Right foot bandaged, wound care photos reviewed. Dress clean and dry Skin: warm, dry, no rash appreciated, AV fistula present Neuro: alert, oriented, no focal neurologic deficit appreciated Results & Data Results & Data Vital Signs (Past 12 Hours) Vital Signs Temp Pulse Resp BP Pulse Ox O2 Del Method FiO2 06/30/22 06:00 70 22 125/49 L 100 BiPAP 40 06/30/22 05:00 70 26 H 120/51 L 92 06/30/22 04:01 70 24 114/38 L 97 06/30/22 03:18 36.7 C 65 24 137/58 L 90 BiPAP 40 06/30/22 03:00 70 17 97 06/30/22 02:31 70 25 H 115/65 93 06/30/22 02:14 70 28 H 105/47 L 95 06/30/22 02:37 76 23 93 40 06/29/22 22:40 71 24 95 40 06/30/22 01:00 70 24 95/55 L 96 BiPAP 40 06/30/22 00:57 20 134/82 93 06/30/22 00:30 70 17 94/43 L 97 BiPAP 40 06/30/22 00:00 36.6 C 70 24 113/55 L 98 06/29/22 23:30 70 24 98 BiPAP 40 06/29/22 23:01 70 26 H 110/48 L 96 06/29/22 22:00 70 23 98/56 L 97 60 06/29/22 21:31 70 22 101/55 L 94 60 06/29/22 21:16 70 22 126/109 H 93 06/29/22 21:00 70 21 92 06/29/22 20:54 70 16 107/40 L 92 60 06/29/22 20:24 70 26 H 112/38 L 98 06/29/22 20:00 36.8 C 70 28 H 82/50 L 93 BiPAP 60 06/29/22 19:35 70 22 101/42 L 97 06/29/22 19:15 102/34 L 06/29/22 19:00 70 23 121/37 L 95 06/30/22 00:00 70 06/29/22 20:00 70 06/29/22 20:00 Nasal Cannula, BiPAP 06/29/22 20:10 70 26 H 96 40 Resident Activity Tracking Resident Involvement: Resident Care Provided Care Provided: Adult Hospital Medicine (6) CAD (coronary artery disease) Associated angina: without angina Coronary Disease-Associated Artery/Lesion type: [place] artery [place] vs. transplanted heart: [place] heart Qualified Code(s): I25.10 - Atherosclerotic heart disease of [place] coronary artery without angina pectoris
[2022-06-30] MEDS: ALBUT/IPRATROP 3MG/0.5MG NEB 3 ML VIAL NEB SCH ×4 (07:19→19:52)
--- NOTE | 2022-06-30 07:33 | Surgery Progress Note ---
Date of Service June 30, 2022 Assessment & Plan (1) Ileus: Plan: Doing well. Certainly no indication for surgical intervention. We will repeat KUB. Still distended so would keep him on clears for now. We will slowly advance as he improves. Dr. Islas covering for the weekend if any questions. (2) Respiratory distress: Admission and Anticipated Discharge Date Admission Date: June 28, 2022 Subjective Patient seen. Doing fine. Had 2 bowel movements yesterday and another one this morning he is also passing a lot of flatus. He has no nausea. He is hungry. He is currently tolerating clears. Physical Exam Physical Exam: Alert. Abdomen is soft. It is distended but less than yesterday. Positive bowel sounds. Nontender. Results & Data Vital Signs (Past 12 Hours) Vital Signs Temp Pulse Pulse Resp BP Pulse Ox O2 Del Method 06/30/22 07:20 70 20 94 Nasal Cannula 06/30/22 06:00 70 22 125/49 L 100 BiPAP 06/30/22 05:00 70 26 H 120/51 L 92 06/30/22 04:01 70 24 114/38 L 97 06/30/22 03:18 36.7 C 65 24 137/58 L 90 BiPAP 06/30/22 03:00 70 17 97 06/30/22 02:31 70 25 H 115/65 93 06/30/22 02:14 70 28 H 105/47 L 95 06/30/22 02:37 76 23 93 06/29/22 22:40 71 24 95 06/30/22 01:00 70 24 95/55 L 96 BiPAP 06/30/22 00:57 20 134/82 93 06/30/22 00:30 70 17 94/43 L 97 BiPAP 06/30/22 00:00 36.6 C 70 24 113/55 L 98 06/29/22 23:30 70 24 98 BiPAP 06/29/22 23:01 70 26 H 110/48 L 96 06/29/22 22:00 70 23 98/56 L 97 06/29/22 21:31 70 22 101/55 L 94 06/29/22 21:16 70 22 126/109 H 93 06/29/22 21:00 70 21 92 06/29/22 20:54 70 16 107/40 L 92 06/29/22 20:24 70 26 H 112/38 L 98 06/29/22 20:00 36.8 C 70 28 H 82/50 L 93 BiPAP 06/29/22 19:35 70 22 101/42 L 97 06/30/22 00:00 70 06/29/22 20:00 70 06/29/22 20:00 Nasal Cannula, BiPAP 06/29/22 20:10 70 26 H 96 O2 Flow Rate FiO2 06/30/22 07:20 4 06/30/22 06:00 40 06/30/22 05:00 06/30/22 04:01 06/30/22 03:18 40 06/30/22 03:00 06/30/22 02:31 06/30/22 02:14 06/30/22 02:37 40 06/29/22 22:40 40 06/30/22 01:00 40 06/30/22 00:57 06/30/22 00:30 40 06/30/22 00:00 06/29/22 23:30 40 06/29/22 23:01 06/29/22 22:00 60 06/29/22 21:31 60 06/29/22 21:16 06/29/22 21:00 06/29/22 20:54 60 06/29/22 20:24 06/29/22 20:00 60 06/29/22 19:35 06/30/22 00:00 06/29/22 20:00 06/29/22 20:00 06/29/22 20:10 40 PG Care Time/CCT Total # of Minutes Spent Total Time Spent with Patient: Total time spent is greater than 50% in coordination of care (as documented) at patient's floor/unit and/or counseling patient: Coding Level of Care Code 78725 SUB INP/OBS CARE 2/35MIN Diagnoses Ileus K56.7 Respiratory distress R06.03
--- NOTE | 2022-06-30 07:36 | XRay Report ---
XR chest 1V portable CLINICAL HISTORY: Congestive heart failure. COMPARISON STUDY: Chest radiograph and chest CT June 29, 2022. FINDINGS: Right subclavian biventricular pacer is in place. Cardiomegaly is unchanged. There is no pn eumothorax. Interstitial thickening persists. Linear left lung densities favor atelectasis. There is a trace left pleural effusion. There is been no significant change in appearance of the chest. IMPRESSION: No significant change in appearance of the chest. Cardiomegaly with pulmonary vascular c ongestion a small left pleural effusion. ACT 112: Negative or not required by law. Electronically signed by: Manolo Shelton M.D. 06/30/2022 7:35 AM
[2022-06-30] MEDS: INSULIN ASPART PER UNIT CHARGE SC SCH ×4 (07:40→21:28)
[2022-06-30] MEDS: MIDODRINE HCL 2.5 MG TAB PO SCH ×3 (07:44→18:12)
--- NOTE | 2022-06-30 07:45 | Hospitalist Progress Note ---
Date of Service June 30, 2022 Assessment & Plan (1) Hypotension: Plan: Hypotensive with increased oxygen requirements and respiratory distress AM 06/29 in setting of developing sepsis likely 2nd to foot infection/recent osteomyelitis. Lactic elevated on admission, improved on repeats BPs 60s/25, 76/44 , repeat manual 115/51 w/ O2 requirement from 5-6L to 12L on hiflow w/ tachypnea. concerns for volume overload given CXR w/ pulm congestion on admission despite EDW below outpt measurements and HD on 06/28 without pulling fluid off. CTA negative for PE, remains on eliquis 5mg BID Initially w/ concerns possible presser support in order to pull off fluid last evening with HD, started midrodrine TID and additonal dose provided prior to HD with successful ability to pull off 3L Did not require pressor support and discussed w/ intenvisit and will downgrade to PCU today and continue midodrine but at increased dose 5mg TID given stability BPs improved, 120s/57 this morning. No further symptomatic with such but still slightly volume overloaded and attempting to pull off an additional 2L this afternoon Tx as outlined below regarding ongoing concerns for infection/osteomyelitis of RIGHT FOOT, continues on Vanco/Zosyn for now, ID on consult (2) Infection of right foot: Plan: In patient w/ diabetes, Hx osteomyelitis of right root, and recent admission for Group B streptococcus bacteremia and had partial excision 3/4/5th metatarsals and excision right foot wount w/ Dr Rust on 05/13 I was concerned about ongoing infection/osteomyelitis given appearance of his right foot/toes given he had completed 6 wks Ancef, last date 06/24 and reported continued drainage at home Surface cx obtained other night for drainage to see if able to provide assistance. discussed w/ ID and likely noncontributory Podiatry on consult, wanted bone scan, completed today Impression: * 1.Interval development of abnormal 3 phase radiotracer uptake within the left first toe. This is concerning for osteomyelitis. * 2. Persistent abnormal 3 phase radiotracer uptake within the right third and fourth metatarsals. This is similar to the prior study. This may also represent osteomyelitis. Continue Zosyn/Vanc (vanc dosing w/ pharmacy/after HD this evening) Monitor blood cultures -- NGTD at present ID consult for today to be undertaken -- discussed w/ Dr Gutierrez and to continue current abx regimen and length TBD based on source control Appreciate recs from podiatry given likely requirement for further surgery/debridement infected bone for source control. Patient not ideal w/ surgery occurring but he did note he wants to get this entire infection under control. Suspect at least TMA if not more would be required (3) End-stage renal disease on hemodialysis: Plan: Patient ESRD on HD q M/W/F. Continues to appear volume overloaded at this time but much better than 06/29 w/ respiratory distress after 3L pulled w/ HD Nephrology on consult and following, appreciate assistance Planning additional HD for today to assist with pulling off fluid Monitor volume status/continued nephrology assistance appreciated (4) Respiratory distress: Plan: 2nd to sepsis as well as volume overloaded state (CXR on admission w/ pulm congestion, elevated BNP) -- see above Placed on BiPAP 06/29 and overnight -> RT assisted w/ titrating back to his usual NC following HD and was back to his 4L this morning but still slightly volume overloaded and HD planned again for today for volume overload however much improved after 3L pulled off last evening (06/29) CTA neg for PE ro pneumonia COntinue nebs/pulm toilet (5) Abdominal distention: Plan: KUB w/ distended/gas filled loops of small bowel. developing obstruction not excluded 06/29, backed to clears given continued BM x 2 in the morning and consulted surgery No having pain but had fullness, US abd w/ small-moderate ascites (does not make sure, unable to give IV meds to assist) HD 06/29 for 3L, additional HD scheduled for today for additinal assistance. Abd reportedly feeling better 1BM this morning reported, KUB w/ improvement Will continue clear liquids for now and monitor and can advance in AM. Patient agreeable to continue such diet at present Continue PPI IVP daily in the meantime to prevent any issues and can convert to PO tomorrow if tolerating/advancing diet appreciate surgery following along (6) Ileus: Plan: improving, continues clear liquid diet (7) Weakness: Plan: Multifactorial but suspected continued/ongoing sepsis w/ source R foot, volume overload w/ pulm congestion/elevated BNP/increased O2 needs Tx as outlined above, continued abx/hoping for source control PT/OT consults and likely need rehab at [facility] Fall precautions (8) Diabetes mellitus type 2, uncontrolled: Plan: Longstanding history of DM, most recent A1c 7.6 Dropped 2 days ago up in HD, had been given 10u long acting prior to help w/ hyperkalemia prior to HD and pharmacy contacted and adjustments made Patient had been refusing prior insulins but had discussed good wound healing w/ better control and had loosened parameters and he has been agreeable BSGs better controlled Appreciate pharmacy assistance Monitor BSGs (9) Cirrhosis of liver with ascites: Plan: With increased abdominal distention since receiving IVF per patient on admit w/ elevated lactic No further IVF provided Small-mod ascites on US abd No HCTZ given low BPs -- ? benefit given patient does not make any urine and likely only to worsen kidney function Improvement on exam w/ HD yesterday -- will continue to monitor (10) PAF (paroxysmal atrial fibrillation): Plan: Regular rhythm on physical exam. EKG ordered -- Vpaced rhythm Continue Amiodarone 200mg po qAM Continue Apixaban 5mg po BID (11) CAD (coronary artery disease): Plan: Patient wiht PCI to RCA in 2017. He had a cardiac catheterization in July 2019 with patent stent. Cardiac catheterization March 2021 with in-stent restenosis of the RCA with severe disease, chronically occluded OM3. No acute intervention. Patient on medical management - has been unable to tolerated beta blockers due to hypotension. He follows with Cardiology - Dr. Norton at [facility]. Patient denies chest pain at this time Continue ASA, Atorvastatin (12) GERD (gastroesophageal reflux disease): Plan: Chronic. Stable. Patient on Omeprazole Protonix 40mg po daily (13) Hyperlipidemia: Plan: Chronic. Stable Continue Atorvastatin 40mg po qHS (14) Hypertension: Plan: See above, hypotension No antihypertensives as above no amlodipine or HCTZ Would reach out to nephro regarding continued use HCTZ at discharge given does not make any urine Plan continued inpatient stay downgraded to PCU today given no need for presser support during HD yesterday and will continue midodrine at this time Dr Rust to discuss options w/ patient regarding treatment/bone scan as obtained today Continued IV abx/monitor cultures Admission and Anticipated Discharge Date Admission Date: June 28, 2022 Supervising Physician Co-Signing Physician Notes The patient was not seen by me. The chart was reviewed. Case discussed with MARK Godwin. Agree with assessment and plan Subjective evak around lunch, just got back from nuclear medicine bone scan. Toes appear slightly better on exam, but discussed will await imaging results for determination for need for surgery. He states he was anxious for discharge in the past but wants to stay and get as good as he can and actually address the problem before discharge. currently down to his usual 4L NC, saturating well. States still a little short of breath but feeling much better than yesterday. Abdomen distended but passing gas and +BS on exam. Continuing clear liquids for today. BPs stable and continuing on midodrine. HD yesterday for 3L and planning for repeat HD session this afternoon at 2pm. If BPs remaining stable, likely will downgrade to PCU. Updated significant other robert at bedside. Not yet seen by Dr Rust today reported. Discussed also will have ID consultation undertaken. Questions/concerns addressed at this time. Physical Exam Physical Exam: General: 52yo chronically ill appearing male sitting up in bed, much more comfortable appearing, no further tachypnea, but +wet cough, no sputum production HEENT: head normocephalic, atraumatic, mmm, trachea midline Resp: improvement in air entry bilaterally, faint exp wheezing improved, back to usual 4L SpO2 90% this morning (98% this afternoon) CV: RRR, no significant m/r/g, no pitting edema RUE Picc line in place GI: +BS, less distended, nontender to palpation : no friedman MSK/Neuro: RLE w/ dressing intact, less dusky appears to toes but eschar still present, no active drainage b/l LE scattered crusted pustules with eschar without active drainage. two sutures noted LLE Psych: AOx3, cooperative with exam Results & Data Results & Data Vital Signs (Past 12 Hours) Vital Signs Temp Pulse Pulse Resp BP Pulse Ox O2 Del Method 06/30/22 07:20 70 20 94 Nasal Cannula 06/30/22 06:00 70 22 125/49 L 100 BiPAP 06/30/22 05:00 70 26 H 120/51 L 92 06/30/22 04:01 70 24 114/38 L 97 06/30/22 03:18 36.7 C 65 24 137/58 L 90 BiPAP 06/30/22 03:00 70 17 97 05/05/23 02:31 70 25 H 115/65 93 06/30/22 02:14 70 28 H 105/47 L 95 06/30/22 02:37 76 23 93 06/29/22 22:40 71 24 95 06/30/22 01:00 70 24 95/55 L 96 BiPAP 06/30/22 00:57 20 134/82 93 06/30/22 00:30 70 17 94/43 L 97 BiPAP 06/30/22 00:00 36.6 C 70 24 113/55 L 98 06/29/22 23:30 70 24 98 BiPAP 06/29/22 23:01 70 26 H 110/48 L 96 06/29/22 22:00 70 23 98/56 L 97 06/29/22 21:31 70 22 101/55 L 94 06/29/22 21:16 70 22 126/109 H 93 06/29/22 21:00 70 21 92 06/29/22 20:54 70 16 107/40 L 92 06/29/22 20:24 70 26 H 112/38 L 98 06/29/22 20:00 36.8 C 70 28 H 82/50 L 93 BiPAP 06/30/22 00:00 70 06/29/22 20:00 70 06/29/22 20:00 Nasal Cannula, BiPAP 06/29/22 20:10 70 26 H 96 O2 Flow Rate FiO2 06/30/22 07:20 4 06/30/22 06:00 40 06/30/22 05:00 06/30/22 04:01 06/30/22 03:18 40 06/30/22 03:00 06/30/22 02:31 06/30/22 02:14 06/30/22 02:37 40 06/29/22 22:40 40 06/30/22 01:00 40 06/30/22 00:57 06/30/22 00:30 40 06/30/22 00:00 06/29/22 23:30 40 06/29/22 23:01 06/29/22 22:00 60 06/29/22 21:31 60 06/29/22 21:16 06/29/22 21:00 06/29/22 20:54 60 06/29/22 20:24 06/29/22 20:00 60 05/05/23 00:00 06/29/22 20:00 06/29/22 20:00 06/29/22 20:10 40 Laboratory Results 06/30/22 06/30/22 06/30/22 Range/Units 11:58 07:10 04:52 WBC (4.8-10.8) K/ul RBC (4.70-6.10) M/uL Hgb (14.0-18.0) g/dl Hct (42.0-52.0) % MCV (80.0-100.0) fL MCH (25.0-34.0) pg MCHC (32.0-36.0) g/dL RDW Std Deviation (36.4-46.3) fL RDW Coeff of Octavio (11.5-14.5) % Plt Count (130-400) K/uL MPV (9.4-12.4) fL Absolute Nucleated RBC (0-0.12) K/uL Nucleated RBC % (auto) % PT (9.0-12.0) Seconds INR (0.9-1.1) Sodium (136-145) mmol/L Potassium (3.5-5.1) mmol/L Chloride (98-107) mmol/L Carbon Dioxide (21-32) mmol/L Anion Gap (3-11) BUN (6-23) mg/dl Creatinine (0.6-1.4) mg/dl Est Cr Clr Drug Dosing ml/min Est GFR ( Amer) ml/min Est GFR (Non-Af Amer) ml/min BUN/Creatinine Ratio (10-20) Glucose (70-99(Fasting)) mg/dl POC Glucose 194 H 144 H 188 H (70-99) mg/dl Calcium (8.6-10.3) mg/dl Phosphorus (2.5-4.9) mg/dl Magnesium (1.7-2.4) mg/dl Total Bilirubin (0.2-1.0) mg/dl Direct Bilirubin (0-0.2) mg/dl AST (13-39) U/L ALT (7-52) U/L Alkaline Phosphatase (34-104) U/L Total Protein (6.0-8.3) gm/dl Albumin (3.4-5.0) gm/dl Random Vancomycin (10-20) mcg/ml Hep Bs Antigen (NON-REACTIVE) Hep Bs Ag Confirmation 06/30/22 06/30/22 06/30/22 Range/Units 04:33 04:33 04:33 WBC 11.32 H (4.8-10.8) K/ul RBC 3.57 L (4.70-6.10) M/uL Hgb 9.9 L (14.0-18.0) g/dl Hct 32.9 L (42.0-52.0) % MCV 92.2 (80.0-100.0) fL MCH 27.7 (25.0-34.0) pg MCHC 30.1 L (32.0-36.0) g/dL RDW Std Deviation 63.2 H (36.4-46.3) fL RDW Coeff of Octavio 19.3 H (11.5-14.5) % Plt Count 230 (130-400) K/uL MPV 11.0 (9.4-12.4) fL Absolute Nucleated RBC 0.05 (0-0.12) K/uL Nucleated RBC % (auto) 0.4 % PT 17.5 H (9.0-12.0) Seconds INR 1.6 H (0.9-1.1) Sodium 139 (136-145) mmol/L Potassium 4.3 D (3.5-5.1) mmol/L Chloride 102 (98-107) mmol/L Carbon Dioxide 23 (21-32) mmol/L Anion Gap 14 H (3-11) BUN 35 H (6-23) mg/dl Creatinine 4.15 H D (0.6-1.4) mg/dl Est Cr Clr Drug Dosing 23.9 ml/min Est GFR ( Amer) 17.6 ml/min Est GFR (Non-Af Amer) 15.2 ml/min BUN/Creatinine Ratio 8.4 L (10-20) Glucose 121 H (70-99(Fasting)) mg/dl POC Glucose (70-99) mg/dl Calcium 7.8 L (8.6-10.3) mg/dl Phosphorus 5.2 H (2.5-4.9) mg/dl Magnesium 1.7 (1.7-2.4) mg/dl Total Bilirubin 0.6 (0.2-1.0) mg/dl Direct Bilirubin 0.2 (0-0.2) mg/dl AST 19 (13-39) U/L ALT < 3 L (7-52) U/L Alkaline Phosphatase 114 H (34-104) U/L Total Protein 5.8 L (6.0-8.3) gm/dl Albumin 2.6 L (3.4-5.0) gm/dl Random Vancomycin (10-20) mcg/ml Hep Bs Antigen (NON-REACTIVE) Hep Bs Ag Confirmation 06/30/22 06/29/22 06/28/22 Range/Units 04:33 19:53 08:32 WBC (4.8-10.8) K/ul RBC (4.70-6.10) M/uL Hgb (14.0-18.0) g/dl Hct (42.0-52.0) % MCV (80.0-100.0) fL MCH (25.0-34.0) pg MCHC (32.0-36.0) g/dL RDW Std Deviation (36.4-46.3) fL RDW Coeff of Octavio (11.5-14.5) % Plt Count (130-400) K/uL MPV (9.4-12.4) fL Absolute Nucleated RBC (0-0.12) K/uL Nucleated RBC % (auto) % PT (9.0-12.0) Seconds INR (0.9-1.1) Sodium (136-145) mmol/L Potassium (3.5-5.1) mmol/L Chloride (98-107) mmol/L Carbon Dioxide (21-32) mmol/L Anion Gap (3-11) BUN (6-23) mg/dl Creatinine (0.6-1.4) mg/dl Est Cr Clr Drug Dosing ml/min Est GFR ( Amer) ml/min Est GFR (Non-Af Amer) ml/min BUN/Creatinine Ratio (10-20) Glucose (70-99(Fasting)) mg/dl POC Glucose 166 H (70-99) mg/dl Calcium (8.6-10.3) mg/dl Phosphorus (2.5-4.9) mg/dl Magnesium (1.7-2.4) mg/dl Total Bilirubin (0.2-1.0) mg/dl Direct Bilirubin (0-0.2) mg/dl AST (13-39) U/L ALT (7-52) U/L Alkaline Phosphatase (34-104) U/L Total Protein (6.0-8.3) gm/dl Albumin (3.4-5.0) gm/dl Random Vancomycin 16.2 (10-20) mcg/ml Hep Bs Antigen NON-REACTIVE (NON-REACTIVE) Hep Bs Ag Confirmation TNP Diagnostic Findings Chest X-Ray 06/30/22 06:00 XR chest 1V portable CLINICAL HISTORY: Congestive heart failure. COMPARISON STUDY: Chest radiograph and chest CT June 29, 2022. FINDINGS: Right subclavian biventricular pacer is in place. Cardiomegaly is unchanged. There is no pneumothorax. Interstitial thickening persists. Linear left lung densities favor atelectasis. There is a trace left pleural effusion. There is been no significant change in appearance of the chest. IMPRESSION: No significant change in appearance of the chest. Cardiomegaly with pulmonary vascular congestion a small left pleural effusion. ACT 112: Negative or not required by law. Electronically signed by: Manolo Shelton M.D. 06/30/2022 7:35 AM KUB X-Ray 06/30/22 07:31 KUB CLINICAL HISTORY: Abdominal distention. COMPARISON STUDY: KUB June 29, 2022. CT of the abdomen and pelvis February 12, 2010. FINDINGS: A few loops of mildly dilated small bowel are noted. Small bowel dilatation has decreased since prior examination. No definite evidence for a bowel obstruction. Extensive vascular calcification is incidentally noted. IMPRESSION: Mild small bowel dilatation, decreased since prior exam of June 29, 2022. No convincing evidence for a bowel obstruction. ACT 112: Negative or not required by law. Electronically signed by: Manolo Shelton M.D. 06/30/2022 9:23 AM Bone Scan Nuclear Medicine 06/30/22 08:00 THREE-PHASE BONE SCAN OF THE FEET HISTORY: recurrent sepsis, osteo, eval other sites for infection RADIOTRACER: 26.0 mCi Tc-99m MDP STUDY/IMAGES: Planar anterior and posterior imaging of the feet was performed immediately and 3 hours following the intravenous administration of radiotracer. Delayed whole body scanning was also obtained. COMPARISON: Chest x-ray and KUB 06/30/2022. Right foot radiograph 05/10/2022. Bone scan 05/12/2022. FINDINGS: Scattered areas of mild radiotracer uptake seen within the shoulders, sternoclavicular joints, and hips favor degenerative change. Abnormal 3 phase radiotracer uptake within the left first toe and right third and fourth metatarsals. The three-phase uptake within the right foot is similar to the prior study. IMPRESSION: 1. Interval development of abnormal 3 phase radiotracer uptake within the left first toe. This is concerning for osteomyelitis. 2. Persistent abnormal 3 phase radiotracer uptake within the right third and fourth metatarsals. This is similar to the prior study. This may also represent osteomyelitis. ACT 112: Negative or not required by law. Electronically signed by: Erwin Mitchell M.D. 06/30/2022 12:34 PM PG Care Time/CCT Total # of Minutes Spent Total Time Spent with Patient: Total time spent is greater than 50% in coordination of care (as documented) at patient's floor/unit and/or counseling patient: Coding Level of Care Code 57737 SUB INP/OBS CARE 3/50MIN Diagnoses Hypotension I95.9 Infection of right foot L08.9 End-stage renal disease on hemodialysis N18.6; Z99.2 Respiratory distress R06.03 Abdominal distention R14.0 Ileus K56.7 Weakness R53.1 Diabetes mellitus type 2, uncontrolled E11.65 Glycemic state: with hyperglycemia Cirrhosis of liver with ascites K74.60; R18.8 PAF (paroxysmal atrial fibrillation) I48.0 CAD (coronary artery disease) I25.10 Associated angina: without angina Coronary Disease-Associated Artery/Lesion type: [place] artery [place] vs. transplanted heart: [place] heart GERD (gastroesophageal reflux disease) K21.9 Hyperlipidemia E78.5 Hypertension I10 (8) Diabetes mellitus type 2, uncontrolled Glycemic state: with hyperglycemia Qualified Code(s): E11.65 - Type 2 diabetes mellitus with hyperglycemia (11) CAD (coronary artery disease) Associated angina: without angina Coronary Disease-Associated Artery/Lesion type: [place] artery [place] vs. transplanted heart: [place] heart Qualified Code(s): I25.10 - Atherosclerotic heart disease of [place] coronary artery without angina pectoris
--- NOTE | 2022-06-30 08:23 | Billing Data ---
Date of Service June 30, 2022 Coding Level of Care Code 54002 SUB INP/OBS CARE
[2022-06-30] MEDS: AMIODARONE 200 MG TAB PO SCH (08:41)
[2022-06-30] MEDS: ASPIRIN 81 MG ECTAB PO SCH (08:41)
[2022-06-30] MEDS: APIXABAN 5 MG TABLET PO SCH ×2 (08:41→20:59)
--- NOTE | 2022-06-30 08:42 | Nephrology Progress Note ---
Date of Service June 30, 2022 Assessment & Plan (1) End-stage renal disease on hemodialysis: Plan: * Mr. Walker was dialyzed yesterday without complication. 3 L UF obtained. CXR shows improvement in pulmonary vascular congestion * Outpatient HD Rx: MWF 4.25 hours Qb 500 Qd 600, 2K 2.5Ca, 139Na, 40HCO3. EDW 103 kg. Normally dialyzes as outpatient at [facility] under the care of Dr. Mojica * BP readings have been difficult to obtain due to limited measurement sites and PVD. Patient required pressor support for only a limited time last evening. CXR this am does still show mild CHF. Will schedule 2 hr HD treatment today for additional 2 L UF following bone scan this afternoon (2) Sepsis: Plan: * Osteomyelitis R foot s/p partial excision of 3rd, 4th, 5th metatarsals and excision of R foot wound 05/13/[address] Rust * Group B strep bacteremia (PCN sensitive) - completed 6 weeks IV Cefazolin * 06/28/22 Blood Cx - NG x 48 hours * 06/28/22 R foot Cx - corynebacterium * Currently on empiric Zosyn (3) Infection of right foot: Plan: * Ortho following, scheduled for bone scan this afternoon * Currently on empiric Zosyn (4) Abdominal distention: Plan: * KUB x-ray concerning for developing ileus or SBO * Monitor clinically, consider tap water or soap suds enema. Avoid phosphate containing solutions due to ESKD (5) Weakness: Plan: * Patient reports fall at home, hip discomfort. Imaging reported to be negative for fracture by admitting service * Consider physical therapy evaluation Admission and Anticipated Discharge Date Admission Date: June 28, 2022 Subjective Mr. Walker was evaluated in the ICU this morning. He did briefly require Phenylephrine last evening. BP this morning is acceptable off pressor support. He appears to be breathing comfortably on O2 at 4 L/min NC. HD was performed yesterday for 3 L UF without complication. Review of Systems Constitutional: no fever Eyes: no problem reported Ear, Nose, Mouth, Throat: no problem reported Respiratory: no dyspnea Cardiovascular: no chest pain Gastrointestinal: no nausea, no vomiting and no diarrhea/loose stools Neurologic: no confusion Physical Exam Constitutional: + ill appearing; not in distress Eyes: PERRL, conjunctivae normal, anicteric sclerae ENMT: external ear and nose normal, oropharynx normal Neck: trachea midline, no thyromegaly Respiratory: normal respiratory effort, lungs clear to auscultation Cardiovascular: Rate/Rhythm: regular rate and regular rhythm Extremities: + AV fistula (+ bruit) Gastrointestinal (Abdomen): Inspection/Auscultation: + abdomen distended and + hypoactive bowel sounds Percussion/Palpation: abdomen nontender and no guarding Neurologic: Speech / Cognition: normal speech and normal cognition Results & Data Vital Signs (Past 12 Hours) Vital Signs Temp Pulse Pulse Resp BP Pulse Ox O2 Del Method 06/30/22 07:20 70 20 94 Nasal Cannula 06/30/22 06:00 70 22 125/49 L 100 BiPAP 06/30/22 05:00 70 26 H 120/51 L 92 06/30/22 04:01 70 24 114/38 L 97 06/30/22 03:18 36.7 C 65 24 137/58 L 90 BiPAP 06/30/22 03:00 70 17 97 06/30/22 02:31 70 25 H 115/65 93 06/30/22 02:14 70 28 H 105/47 L 95 06/30/22 02:37 76 23 93 06/29/22 22:40 71 24 95 06/30/22 01:00 70 24 95/55 L 96 BiPAP 06/30/22 00:57 20 134/82 93 06/30/22 00:30 70 17 94/43 L 97 BiPAP 06/30/22 00:00 36.6 C 70 24 113/55 L 98 06/29/22 23:30 70 24 98 BiPAP 06/29/22 23:01 70 26 H 110/48 L 96 06/29/22 22:00 70 23 98/56 L 97 06/29/22 21:31 70 22 101/55 L 94 06/29/22 21:16 70 22 126/109 H 93 06/29/22 21:00 70 21 92 06/29/22 20:54 70 16 107/40 L 92 06/30/22 00:00 70 O2 Flow Rate FiO2 06/30/22 07:20 4 06/30/22 06:00 40 06/30/22 05:00 06/30/22 04:01 06/30/22 03:18 40 06/30/22 03:00 06/30/22 02:31 06/30/22 02:14 06/30/22 02:37 40 06/29/22 22:40 40 06/30/22 01:00 40 06/30/22 00:57 06/30/22 00:30 40 06/30/22 00:00 06/29/22 23:30 40 06/29/22 23:01 06/29/22 22:00 60 06/29/22 21:31 60 06/29/22 21:16 06/29/22 21:00 06/29/22 20:54 60 06/30/22 00:00 Laboratory Results Laboratory Tests 06/30/22 06/30/22 04:33 04:33 WBC 11.32 H Hgb 9.9 L Hct 32.9 L Plt Count 230 Sodium 139 Potassium 4.3 D Chloride 102 Carbon Dioxide 23 BUN 35 H Creatinine 4.15 H D Glucose 121 H Calcium 7.8 L Phosphorus 5.2 H Albumin 2.6 L PG Care Time/CCT Total # of Minutes Spent Total Time Spent with Patient: Total time spent is greater than 50% in coordination of care (as documented) at patient's floor/unit and/or counseling patient: Coding Level of Care Code 47294 SUB INP/OBS CARE 3/50MIN Diagnoses End-stage renal disease on hemodialysis N18.6; Z99.2 Sepsis A41.9 Infection of right foot L08.9 Abdominal distention R14.0 Weakness R53.1
[2022-06-30] MEDS ORDERED: LANTUS PER UNIT CHARGE SQ SCH (09:00)
[2022-06-30] MEDS ORDERED: SODIUM CHLORIDE 0.9% 1000ML 1,000 ML IV PRN (09:24)
--- NOTE | 2022-06-30 09:24 | XRay Report ---
KUB CLINICAL HISTORY: Abdominal distention. COMPARISON STUDY: KUB June 29, 2022. CT of the abdomen and pelvis February 12, 2010. FINDINGS: A few loops of mildly dilated small bowel are noted. Small bowel dilatation has decreased s estela prior examination. No definite evidence for a bowel obstruction. Extensive vascular calcificatio n is incidentally noted. IMPRESSION: Mild small bowel dilatation, decreased since prior exam of June 29, 2022. No convincing ev idence for a bowel obstruction. ACT 112: Negative or not required by law. Electronically signed by: Manolo Shelton M.D. 06/30/2022 9:23 AM
[2022-06-30] MEDS: FLUTICASONE/VILANTEROL 100/25MCG 14 PUFFS/INHALER INH SCH (09:46)
[2022-06-30] MEDS ORDERED: ALTEPLASE, RECOMBINANT 1 MG/ML 2ML VIAL INSTIL ONE (10:08)
[2022-06-30 11:17] LABS: HBSAG NON-REACTIVE (NON-REACTIVE)
--- NOTE | 2022-06-30 11:30 | Pharmacy Report ---
Pharmacy PK ABX Note - Date of Service June 30, 2022 - Assessment and Plan Assessment 52 year old M receiving empiric vancomycin and Zosyn for treatment of right foot osteomyelitis. Pertinent microbiologic data includes: right foot cultures growing group B Strep, MSSA, and Cutibacterium acnes in April 2022 w/ history of Pseudomonas aeruginosa in right foot 12/2021. Patient has T2DM and ESRD requiring HD. ID consulted. Day #3 of antimicrobial therapy. * Afebrile. White count with slight jump: 10k-->9.9k-->11.3k. * HD performed yesterday and patient received a supplemental 500 mg dose of Vancomycin following HD. Random level this AM was therapeutic. Nephrology will plan to do another HD session today for this patient. Will again give a 500 mg supplemental dose following HD this evening. Will order a random level for tomorrow AM in the event that patient requires HD for a 4th consecutive day. * Per RN, patient is completely anuric. No urine output. * Still awaiting ID input. R foot cx updated to be growing corynebacterium species. Plan Vancomycin * Pre-HD random level this AM was 16.2 mcg/mL which is therapeutic. * Will give a 500 mg dose of IV Vancomycin x 1 following HD this evening. * Repeat random level ordered for tomorrow AM (07/01/22). Zosyn * 4.5 g IV q12h -appropriate for patient on HD Pharmacy will continue to follow and will adjust dose/frequency as necessary. Thank you. Pharmacy has transitioned to AUC monitoring for vancomycin. AUC/ANKIT is the preferred PK/PD target and is associated with decreased risk of nephrotoxicity compared to traditional trough targets.
[2022-06-30] MEDS: PANTOprazole 40 MG in SYRINGE 0 ML IV SCH (12:21)
--- NOTE | 2022-06-30 12:36 | Nuclear Medicine Report ---
THREE-PHASE BONE SCAN OF THE FEET HISTORY: recurrent sepsis, osteo, eval other sites for infection RADIOTRACER: 26.0 mCi Tc-99m MDP STUDY/IMAGES: Planar anterior and posterior imaging of the feet was performed immediately and 3 hour s following the intravenous administration of radiotracer. Delayed whole body scanning was also obta ined. COMPARISON: Chest x-ray and KUB 06/30/2022. Right foot radiograph 05/10/2022. Bone scan 05/12/2022. FINDINGS: Scattered areas of mild radiotracer uptake seen within the shoulders, sternoclavicular join ts, and hips favor degenerative change. Abnormal 3 phase radiotracer uptake within the left first toe and right third and fourth metatarsals. The three-phase uptake within the right foot is similar to t he prior study. IMPRESSION: 1. Interval development of abnormal 3 phase radiotracer uptake within the left first toe. This is con cerning for osteomyelitis. 2. Persistent abnormal 3 phase radiotracer uptake within the right third and fourth metatarsals. This is similar to the prior study. This may also represent osteomyelitis. ACT 112: Negative or not required by law. Electronically signed by: Erwin Mitchell M.D. 06/30/2022 12:34 PM
--- NOTE | 2022-06-30 13:25 | Pharmacy Report ---
Pharmacy Glycemic Short Note 2 - Date of Service June 30, 2022 - Glycemic Short BSG Results (Last 24 hours): 06/29/22 06/29/22 06/30/22 16:15 19:53 04:33 Glucose 121 H POC Glucose 190 H 166 H 06/30/22 06/30/22 06/30/22 04:52 07:10 11:58 Glucose POC Glucose 188 H 144 H 194 H OUTPATIENT ANTIDIABETIC REGIMEN: * Toujeo 0-33 units SC daily (based on BSG) * BSG < 130 mg/dL - hold * BSG 130-170 mg/dL - 1/2 dose * BSG >170 mg/dL - 33 units * Apidra 4 units SC daily with dinner * HbA1c: 7.6% (05/02/22) * However, this result is likely somewhat unreliable in ESRD patients d/t interactions between the A1c analyzing technique and high levels of urea in ESRD, reduced RBC life span, iron deficiency anemia, and EPO administration. HbA1c > 7.5% in ESRD patient may overestimate the extent of hyperglycemia in ESRD patients. ASSESSMENT: 06/30: * Ryan received 13 units of insulin yesterday, 8 units basal + 5 units bolus. BSGs were: 568-443-538-166 mg/dL. * Patient became hypotensive around HD session and was transferred to the ICU for closer monitoring. Remains on Vancomycin and Zosyn. Has undergone HD sessions on 06/28, 06/29 and 06/30 now. * Fasting BSG is at goal this AM, 144 mg/dL. Will continue with reduced dose of basal from yesterday. * Tightened CF/CR slightly today to help control postprandial BSGs now that patient is eating. 06/28: * PZ is a 52 year old male transferred from [facility] early this morning * Patient reports increased generalized weakness, fatigue, and severe right hip pain. He also reports multiple falls at home. * Initial labs showed multiple abnormalities, hyperkalemia (5.7 mmol/L), hyperphosphatemia (7.5 mg/dL), anion gap of 20 w/ normal serum bicarbonate (25 mmol/L), hyperglycemia (BSG of 339 mg/dL), elevated lactate (4.1), among others. * Patient has history of uncontrolled T2DM and ESRD requiring HD (scheduled for HD session today) * Given elevated anion gap, suggested blood gas be obtained, which came back normal * IV insulin bolus ordered for hyperkalemia, also ordered HD for today * Historically, patient has required ~7-10 units of basal insulin PLAN FOR INPATIENT GLYCEMIC CONTROL: * Basal insulin * Lantus 8 units SC daily * Bolus insulin * NovoLog per scale ACHS or Q6hrs while NPO * Goal Range: Low 120 mg/dL - High 160 mg/dL * Correction Factor: 35 mg/dL/unit * Nutritional / Prandial insulin per carb ratio of 1 unit per 12 grams CHO consumed
--- NOTE | 2022-06-30 15:04 | Infectious Disease Consult ---
Date of Consultation June 30, 2022 Assessment & Plan (1) Hypotension: Plan # R foot osteomyelitis 1st toe, #3rd, 4th #Ileus #ESRD 51 yo M with h/o ESRD on HD via LaVF with recent malfunction, CAD s/p stent placement, Afib s/p AV sera ablation and BiV PPM 01/17, Poor candidate for chago justo AC, DM, PPVD s/p R 2nd toe amputation 12/29/21, R foot 2-5 metatarsal resection 01/27/22 with multiple excisional debridements since, recent COVID infection, home oxygen 4L d/t restrictive lung disease, recently admitted for acute osteomyelitis of right foot with GBS and MSSA as well as GBS bacteremia s/p cefazolin x 6 weeks through 06/24/22. Patient has been admitted on 06/27 with weakness and right foot drainage. Admitted in 04/2022 for right foot osteomyelitis s/p partial excision of 3rd, 4th, 5th metatarsals and excision of R foot wound 05/13/22 Bone scan positive, 05/09 superficial wound cx Group B strep and MSSA, 05/13 OR cx NGTD, completed 6 week therapy with Cefazolin 06/24. Readmitted after fall, hypotension, s/p PICC line removal with continued pain at site. KUB concerning for ileus vs SBP, Surgery consulted. Started on IV Vancomycin/Zosyn. Wound cultures from R foot (superficial) growing Corynebacterium. 06/28 Blood cultures are no growth. Bone scan increased uptake left first toe. This is concerning for osteomyelitis. Also uptake in 3rd/4th MT. Discussion: Patient failed therapy with 6 weeks of treatment. This may be d/t poor coverage of bacteria (prev grew MSSA, GBS) vs vascular issue vs need for better source control. Bone scan shows continued OM and new OM of 1st digit. Agree with broad abx coverage with Vancomycin and Zosyn for now while we await vascular/surgical plan. Suspect Corynebacterium is contaminant vs nonpathogenic bacterium. Recommend C/W Vancomycin C/W Zosyn renally dosed Await plans for vascular/surgery I spoke with Dr. Hodges this morning regarding my recommendations. Please page OTW with any questions, will return to service on Sunday. Cathy Gutierrez MD Infectious Diseases [facility] Consultation Information This patient recommendation is based on a telemedicine consult request which was completed asynchronously through chart review and information provided by the primary physician. The patient was not seen or examined today. The evaluation is consultative in nature and all patient care and treatment decisions can either be accepted or rejected by the patient's primary hospital-based treating physician using their own independent medical judgment for their patient. Button Machine Operator contact information: Please call [facility] Call Center . (Phone Number For Physician Use Only) Time Spent Reviewing Chart: 31+ minutes History of Present Illness Reason for Consultation: R foot osteomyelitis Requesting Physician: Dr. Hodges Attending Physician: Hood Hendricks MD History of Present Illness 51 yo M with h/o ESRD on HD via LaVF with recent malfunction, CAD s/p stent placement, Afib s/p AV sera ablation and BiV PPM 01/17, Poor candidate for longer AC, DM, PPVD s/p R 2nd toe amputation 12/29/21, R foot 2-5 metatarsal resection 01/27/22 with multiple excisional debridements since, recent COVID infection, home oxygen 4L d/t restrictive lung disease, recently admitted for acute osteomyelitis of right foot with GBS and MSSA as well as GBS bacteremia s/p cefazolin x 6 weeks through 06/24/22. Patient has been admitted on 06/27 with weakness and right foot drainage. Admitted in 04/2022 for right foot osteomyelitis s/p partial excision of 3rd, 4th, 5th metatarsals and excision of R foot wound 05/13/22 Bone scan positive, 05/09 superficial wound cx Group B strep and MSSA, 05/13 OR cx NGTD, completed 6 week therapy with Cefazolin 06/24. Readmitted after fall, hypotension, s/p PICC line removal with continued pain at site. KUB concerning for ileus vs SBP, Surgery consulted. Started on IV Vancomycin/Zosyn. Wound cultures from R foot (superficial) growing Corynebacterium. 06/28 Blood cultures are no growth. Bone scan increased uptake left first toe. This is concerning for osteomyelitis. Also uptake in / MT. Allergies Allergy/AdvReac Type Severity Reaction Status Date / Time codeine AdvReac Mild DELIRIUM,ME Verified 06/28/22 04:17 AN tramadol AdvReac Mild nausea and Verified 06/28/22 04:17 vomiting Home Medications Medication Instructions Recorded Confirmed Type miscellaneous medical supply 1 ea miscellaneous DAILY #1 ea 03/08/21 06/26/22 Rx acetaminophen 500 mg capsule 1,000 mg PO TID PRN Pain #180 caps 11/21/21 06/28/22 Rx montelukast 10 mg tablet 10 mg PO HS 01/25/22 06/28/22 History insulin glargine U-300 conc 300 33 unit (0.11 mL) subcut QAM #4.5 02/22/22 06/28/22 Rx unit/mL (1.5 mL) subcutaneous pen mL (Toujeo SoloStar U-300 Insulin) cholecalciferol (vitamin D3) 125 125 mcg PO DAILY 03/16/22 06/26/22 History mcg (5,000 unit) capsule amiodarone 200 mg tablet 200 mg PO QAM #90 tabs 03/21/22 06/28/22 Rx apixaban 5 mg tablet (Eliquis) 5 mg PO BID #180 tabs 03/21/22 06/28/22 Rx atorvastatin 40 mg tablet 40 mg PO HS #90 tabs 03/21/22 06/28/22 Rx fluticasone furoate 100 1 inh inhalation DAILY 04/04/22 06/28/22 History mcg-vilanterol 25 mcg/dose inhalation powder (Breo Ellipta) hydrochlorothiazide 25 mg tablet 25 mg PO BID 04/04/22 06/28/22 History omeprazole 20 mg tablet,delayed 20 mg PO DAILY 04/04/22 06/28/22 History release albuterol sulfate 90 mcg/actuation 2 puff inhalation Q6H PRN 05/02/22 06/28/22 Rx aerosol inhaler shortness of breath or wheezing #18 grams Hospital Bed Homecare #1 ea 05/25/22 06/26/22 Rx ondansetron 4 mg disintegrating 4 mg PO Q8H PRN nausea and 06/07/22 06/26/22 Rx tablet vomiting #30 tabs betamethasone valerate 0.1 % 1 applic topical BID PRN skin 06/08/22 06/28/22 Rx topical cream irritation #15 grams insulin glulisine U-100 100 4 unit (0.04 mL) subcut ONCE #1 box 06/14/22 06/28/22 Rx unit/mL subcutaneous pen (Apidra SoloStar U-100 Insulin) amlodipine 10 mg tablet 10 mg PO DAILY #90 tabs 06/20/22 06/28/22 Rx aspirin 81 mg chewable tablet 81 mg PO QAM 06/20/22 06/28/22 History ranolazine 500 mg tablet,extended 500 mg PO BID 06/20/22 06/26/22 History release,12 hr Patient History Medical History Acute metabolic encephalopathy Acute on chronic diastolic CHF (congestive heart failure) Anemia of chronic disease Arthritis CAD (coronary artery disease) 08/2015- L Cx stent; 11/2017- RCA stent, L Cx stent patent; 07/2019- LM wnl, prox-mid LAD 30%, mid-L Cx stent patent, RCA stent stent with area between stents 30-40%. Sees [facility], Dr Sharad Norton. 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) Repaired s/p PPV, MP, EL (SNT) Dialysis AV fistula malfunction Dialysis AV fistula malfunction Diverticular disease Elevated troponin End-stage renal disease on hemodialysis ESRD (end stage renal disease) on dialysis dialysis sun-sun-sun is getting dialysis sat prior to colonoscopy 09/29/2019 and will have it again after on sunday09/30/2019 GERD (gastroesophageal reflux disease) History of COVID-19 (12/2020) Hyperkalemia Hyperlipidemia Hypertension Moderate pulmonary hypertension Nuclear sclerosis of both eyes Obstructive sleep apnea cpap on 4L N/C On home oxygen therapy 4L N/C at all times Osteoarthritis, hip, bilateral Pleural effusion, bilateral 11/2018 Pneumonia Presence of arteriovenous fistula for hemodialysis left forearm Secondary pulmonary hypertension Status post placement of implantable loop recorder (07/07/21) Vitreous hemorrhage of right eye due to diabetes mellitus (12/04/18) Surgical History History of cardiac cath X 2 - 11/2017 - [facility] - SOB - 1 stent placed - follows w/ Dr. Zuniga - 2015 [facility] - SOB - 1 stent placed History of colonoscopy History of foot surgery left x 4 History of heart artery stent X2 History of placement of chest tube left lung for pleural effusion 11/2018 History of tooth extraction all teeth S/P arteriovenous (AV) fistula creation 04/2016 Dr. Mena placed S/P AV sera ablation (01/18/22) S/P bilateral cataract extraction (05/2021) S/P cardiac catheterization Dr. Shaard Calvillo at [facility]- 01/09/22 S/P cardiac pacemaker procedure (01/18/22) secondary to symptomatic bradycardia Status post amputation of toe (12/29/21) R 2nd toe d/t infection Status post amputation of toe of right foot (01/27/22) metatarsal resection R toe 2-5 d/t osteomyelitis/gangrene Family History Mother Diabetes Coronary heart disease Heart disease Hypertension Stroke Father Diabetes Coronary heart disease Heart disease Myocardial infarction Hypertension Stroke Other Kidney disease No family history of adverse response to anesthesia Denies family history of Ovarian cancer Prostate cancer Breast cancer Lung cancer Colorectal cancer Social History Smoking Status: Former smoker Second Hand Exposure: No; Do You Dip or Chew Tobacco: No; Hx Alcohol Use: No Hx Substance Use: No Preferred Language: Swiss Communication Ability: Effective Communication Ability Comment: significant otherKaycee speaks and writes/read Swiss well Visual Impairment: No Limitations Hearing Ability: Normal Strategy Manager Required: No Beliefs That Will Affect Care: None marital status: Single Current Living Situation: Spouse Current Living Situation Comment: lives with significant other near [place] current occupational status: disabled How many Children do You have: 0 Other Information That Helps 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 Safe at Home: Yes Safety Concerns: Feels Safe At This Time Childhood Exposure to Second-Hand Smoke: Yes Diet: regular Diet Comment: regular caffeine: No during the past year weight has: remained stable Dental Care, Regularly: No Physical Activity Frequency: 1-2 Times per Week Physical Activity Frequency Comment: walk Seatbelt Use: always Sunscreen Use: No Assistive Devices: CPAP, Hospital Bed, Oxygen - Continuous, Walker and Wheelchair Results & Data Vital Signs (Past 12 Hours) Vital Signs Temp Pulse Pulse Pulse Resp BP Pulse Ox 06/30/22 13:00 65 24 119/76 90 06/30/22 07:00 36.6 C 06/30/22 12:00 70 20 129/64 89 L 06/30/22 10:01 70 14 116/58 L 96 06/30/22 09:00 65 24 122/57 L 91 06/30/22 08:17 70 24 111/48 L 94 06/30/22 07:17 70 15 121/49 L 100 06/30/22 12:00 36.6 C 06/30/22 11:18 85 20 97 06/30/22 08:00 06/30/22 07:20 70 20 94 06/30/22 06:00 70 22 125/49 L 100 06/30/22 05:00 70 26 H 120/51 L 92 06/30/22 04:01 70 24 114/38 L 97 06/30/22 03:18 36.7 C 65 24 137/58 L 90 O2 Del Method O2 Flow Rate FiO2 06/30/22 13:00 Nasal Cannula 4 06/30/22 07:00 06/30/22 12:00 Nasal Cannula 4 06/30/22 10:01 Nasal Cannula 4 06/30/22 09:00 Nasal Cannula 4 06/30/22 08:17 BiPAP 40 06/30/22 07:17 Nasal Cannula 4 06/30/22 12:00 06/30/22 11:18 Nasal Cannula 4 06/30/22 08:00 Nasal Cannula 4 06/30/22 07:20 Nasal Cannula 4 06/30/22 06:00 BiPAP 40 06/30/22 05:00 06/30/22 04:01 06/30/22 03:18 BiPAP 40 Laboratory Results Laboratory Results - last 48 hr 06/28/22 06/28/22 06/28/22 08:32 14:58 16:11 WBC RBC Hgb Hct MCV MCH MCHC RDW Std Deviation RDW Coeff of Octavio Plt Count MPV Immature Gran % (Auto) Neut % (Auto) Lymph % (Auto) Todd % (Auto) Eos % (Auto) Baso % (Auto) Neut # (Auto) Lymph # (Auto) Todd # (Auto) Eos # (Auto) Baso # (Auto) Immature Gran # (Auto) Absolute Nucleated RBC Nucleated RBC % (auto) PT INR D-Dimer Sample Site POC pH POC pCO2 POC pO2 POC HCO3 POC Total CO2 POC Base Excess POC ABG O2 Sat Rahul Test O2 Delivery Device Sodium Potassium Chloride Carbon Dioxide Anion Gap BUN Creatinine Est Cr Clr Drug Dosing Est GFR ( Amer) Est GFR (Non-Af Amer) BUN/Creatinine Ratio Glucose POC Glucose 72 105 H Calcium Phosphorus Magnesium Total Bilirubin Direct Bilirubin AST ALT Alkaline Phosphatase Total Protein Albumin Globulin Albumin/Globulin Ratio Stl C. diff Tox B Gene Random Vancomycin Hep Bs Antigen NON-REACTIVE Hep Bs Ag Confirmation TNP 06/28/22 06/28/22 06/29/22 16:59 20:21 05:03 WBC RBC Hgb Hct MCV MCH MCHC RDW Std Deviation RDW Coeff of Octavio Plt Count MPV Immature Gran % (Auto) Neut % (Auto) Lymph % (Auto) Todd % (Auto) Eos % (Auto) Baso % (Auto) Neut # (Auto) Lymph # (Auto) Todd # (Auto) Eos # (Auto) Baso # (Auto) Immature Gran # (Auto) Absolute Nucleated RBC Nucleated RBC % (auto) PT INR D-Dimer Sample Site POC pH POC pCO2 POC pO2 POC HCO3 POC Total CO2 POC Base Excess POC ABG O2 Sat Rahul Test O2 Delivery Device Sodium Potassium Chloride Carbon Dioxide Anion Gap BUN Creatinine Est Cr Clr Drug Dosing Est GFR ( Amer) Est GFR (Non-Af Amer) BUN/Creatinine Ratio Glucose POC Glucose 118 H 140 H 131 H Calcium Phosphorus Magnesium Total Bilirubin Direct Bilirubin AST ALT Alkaline Phosphatase Total Protein Albumin Globulin Albumin/Globulin Ratio Stl C. diff Tox B Gene Random Vancomycin Hep Bs Antigen Hep Bs Ag Confirmation 06/29/22 06/29/22 06/29/22 05:33 05:33 05:33 WBC 9.85 RBC 3.75 L Hgb 10.4 L Hct 34.4 L MCV 91.7 MCH 27.7 MCHC 30.2 L RDW Std Deviation 62.6 H RDW Coeff of Octavio 19.1 H Plt Count 219 MPV 11.1 Immature Gran % (Auto) 0.4 Neut % (Auto) 80.6 Lymph % (Auto) 8.7 Todd % (Auto) 8.7 Eos % (Auto) 0.7 Baso % (Auto) 0.9 Neut # (Auto) 7.93 H Lymph # (Auto) 0.86 L Todd # (Auto) 0.86 H Eos # (Auto) 0.07 Baso # (Auto) 0.09 Immature Gran # (Auto) 0.04 Absolute Nucleated RBC 0.02 Nucleated RBC % (auto) 0.2 PT 14.6 H INR 1.4 H D-Dimer 3940 H* Sample Site POC pH POC pCO2 POC pO2 POC HCO3 POC Total CO2 POC Base Excess POC ABG O2 Sat Rahul Test O2 Delivery Device Sodium Potassium Chloride Carbon Dioxide Anion Gap BUN Creatinine Est Cr Clr Drug Dosing Est GFR ( Amer) Est GFR (Non-Af Amer) BUN/Creatinine Ratio Glucose POC Glucose Calcium Phosphorus Magnesium Total Bilirubin Direct Bilirubin AST ALT Alkaline Phosphatase Total Protein Albumin Globulin Albumin/Globulin Ratio Stl C. diff Tox B Gene Random Vancomycin 21.6 H Hep Bs Antigen Hep Bs Ag Confirmation 06/29/22 06/29/22 06/29/22 05:33 06:59 07:28 WBC RBC Hgb Hct MCV MCH MCHC RDW Std Deviation RDW Coeff of Octavio Plt Count MPV Immature Gran % (Auto) Neut % (Auto) Lymph % (Auto) Todd % (Auto) Eos % (Auto) Baso % (Auto) Neut # (Auto) Lymph # (Auto) Todd # (Auto) Eos # (Auto) Baso # (Auto) Immature Gran # (Auto) Absolute Nucleated RBC Nucleated RBC % (auto) PT INR D-Dimer Sample Site POC pH POC pCO2 POC pO2 POC HCO3 POC Total CO2 POC Base Excess POC ABG O2 Sat Rahul Test O2 Delivery Device Sodium 135 L Potassium 5.4 H Chloride 96 L Carbon Dioxide 25 Anion Gap 14 H BUN 42 H D Creatinine 5.20 H* D Est Cr Clr Drug Dosing 18.5 Est GFR ( Amer) 13.4 Est GFR (Non-Af Amer) 11.6 BUN/Creatinine Ratio 8.1 L Glucose 124 H POC Glucose 176 H 180 H Calcium 8.5 L Phosphorus Magnesium 1.9 Total Bilirubin 0.6 Direct Bilirubin AST 22 ALT < 3 L Alkaline Phosphatase 134 H Total Protein 6.5 Albumin 3.1 L Globulin 3.4 Albumin/Globulin Ratio 0.9 Stl C. diff Tox B Gene Random Vancomycin Hep Bs Antigen Hep Bs Ag Confirmation 06/29/22 06/29/22 06/29/22 08:50 11:51 16:15 WBC RBC Hgb Hct MCV MCH MCHC RDW Std Deviation RDW Coeff of Octavio Plt Count MPV Immature Gran % (Auto) Neut % (Auto) Lymph % (Auto) Todd % (Auto) Eos % (Auto) Baso % (Auto) Neut # (Auto) Lymph # (Auto) Todd # (Auto) Eos # (Auto) Baso # (Auto) Immature Gran # (Auto) Absolute Nucleated RBC Nucleated RBC % (auto) PT INR D-Dimer Sample Site R Brachial POC pH 7.41 POC pCO2 31 L POC pO2 52 L POC HCO3 20 POC Total CO2 21 L POC Base Excess -5.0 POC ABG O2 Sat 87.0 L Rahul Test Pass O2 Delivery Device Cannula Sodium Potassium Chloride Carbon Dioxide Anion Gap BUN Creatinine Est Cr Clr Drug Dosing Est GFR ( Amer) Est GFR (Non-Af Amer) BUN/Creatinine Ratio Glucose POC Glucose 279 H 190 H Calcium Phosphorus Magnesium Total Bilirubin Direct Bilirubin AST ALT Alkaline Phosphatase Total Protein Albumin Globulin Albumin/Globulin Ratio Stl C. diff Tox B Gene Random Vancomycin Hep Bs Antigen Hep Bs Ag Confirmation 06/29/22 06/29/22 06/30/22 19:53 Unknown 04:33 WBC RBC Hgb Hct MCV MCH MCHC RDW Std Deviation RDW Coeff of Octavio Plt Count MPV Immature Gran % (Auto) Neut % (Auto) Lymph % (Auto) Todd % (Auto) Eos % (Auto) Baso % (Auto) Neut # (Auto) Lymph # (Auto) Todd # (Auto) Eos # (Auto) Baso # (Auto) Immature Gran # (Auto) Absolute Nucleated RBC Nucleated RBC % (auto) PT INR D-Dimer Sample Site POC pH POC pCO2 POC pO2 POC HCO3 POC Total CO2 POC Base Excess POC ABG O2 Sat Rahul Test O2 Delivery Device Sodium Potassium Chloride Carbon Dioxide Anion Gap BUN Creatinine Est Cr Clr Drug Dosing Est GFR ( Amer) Est GFR (Non-Af Amer) BUN/Creatinine Ratio Glucose POC Glucose 166 H Calcium Phosphorus Magnesium Total Bilirubin Direct Bilirubin AST ALT Alkaline Phosphatase Total Protein Albumin Globulin Albumin/Globulin Ratio Stl C. diff Tox B Gene TNP Random Vancomycin 16.2 Hep Bs Antigen Hep Bs Ag Confirmation 06/30/22 06/30/22 06/30/22 04:33 04:33 04:33 WBC 11.32 H RBC 3.57 L Hgb 9.9 L Hct 32.9 L MCV 92.2 MCH 27.7 MCHC 30.1 L RDW Std Deviation 63.2 H RDW Coeff of Octavio 19.3 H Plt Count 230 MPV 11.0 Immature Gran % (Auto) Neut % (Auto) Lymph % (Auto) Todd % (Auto) Eos % (Auto) Baso % (Auto) Neut # (Auto) Lymph # (Auto) Todd # (Auto) Eos # (Auto) Baso # (Auto) Immature Gran # (Auto) Absolute Nucleated RBC 0.05 Nucleated RBC % (auto) 0.4 PT 17.5 H INR 1.6 H D-Dimer Sample Site POC pH POC pCO2 POC pO2 POC HCO3 POC Total CO2 POC Base Excess POC ABG O2 Sat Rahul Test O2 Delivery Device Sodium 139 Potassium 4.3 D Chloride 102 Carbon Dioxide 23 Anion Gap 14 H BUN 35 H Creatinine 4.15 H D Est Cr Clr Drug Dosing 23.9 Est GFR ( Amer) 17.6 Est GFR (Non-Af Amer) 15.2 BUN/Creatinine Ratio 8.4 L Glucose 121 H POC Glucose Calcium 7.8 L Phosphorus 5.2 H Magnesium 1.7 Total Bilirubin 0.6 Direct Bilirubin 0.2 AST 19 ALT < 3 L Alkaline Phosphatase 114 H Total Protein 5.8 L Albumin 2.6 L Globulin Albumin/Globulin Ratio Stl C. diff Tox B Gene Random Vancomycin Hep Bs Antigen Hep Bs Ag Confirmation 06/30/22 06/30/22 06/30/22 04:52 07:10 11:58 WBC RBC Hgb Hct MCV MCH MCHC RDW Std Deviation RDW Coeff of Octavio Plt Count MPV Immature Gran % (Auto) Neut % (Auto) Lymph % (Auto) Todd % (Auto) Eos % (Auto) Baso % (Auto) Neut # (Auto) Lymph # (Auto) Todd # (Auto) Eos # (Auto) Baso # (Auto) Immature Gran # (Auto) Absolute Nucleated RBC Nucleated RBC % (auto) PT INR D-Dimer Sample Site POC pH POC pCO2 POC pO2 POC HCO3 POC Total CO2 POC Base Excess POC ABG O2 Sat Rahul Test O2 Delivery Device Sodium Potassium Chloride Carbon Dioxide Anion Gap BUN Creatinine Est Cr Clr Drug Dosing Est GFR ( Amer) Est GFR (Non-Af Amer) BUN/Creatinine Ratio Glucose POC Glucose 188 H 144 H 194 H Calcium Phosphorus Magnesium Total Bilirubin Direct Bilirubin AST ALT Alkaline Phosphatase Total Protein Albumin Globulin Albumin/Globulin Ratio Stl C. diff Tox B Gene Random Vancomycin Hep Bs Antigen Hep Bs Ag Confirmation Microbiology 06/28/22 17:16 Foot,Right Gram Stain - Final 06/28/22 17:16 Foot,Right Wound Culture - Final Corynebacterium species 06/28/22 04:53 Blood Aerobic Blood Culture - Preliminary No growth in Aerobic bottle after 48 hours. 06/28/22 04:53 Blood Anaerobic Blood Culture - Final 06/28/22 04:53 Blood Aerobic Blood Culture - Preliminary No growth in Aerobic bottle after 48 hours. 06/28/22 04:53 Blood Anaerobic Blood Culture - Final Medications Administered Current Inpatient Medications Acetaminophen (Acetaminophen 325 Mg Tab) 650 mg PO Q4H PRN PRN Reason: Pain or Fever Stop: 07/28/22 04:07 Albuterol (Albuterol Hfa 8 Gm Inhaler) 2 puffs INH Q6H PRN PRN Reason: shortness of breath or wheezing Stop: 07/28/22 04:23 Last Admin: 06/28/22 05:44 Dose: 2 puffs Albuterol (Albut/Ipratrop 3mg/0.5mg Neb 3 Ml Vial) 3 ml NEB QIDR VICKY; Protocol Stop: 07/28/22 18:59 Last Admin: 06/30/22 14:43 Dose: 3 ml Albuterol (Albut/Ipratrop 3mg/0.5mg Neb 3 Ml Vial) 3 ml NEB Q2H PRN; Protocol PRN Reason: SOB/WHEEZING Stop: 07/28/22 15:13 Last Admin: 06/28/22 23:30 Dose: 3 ml Amiodarone HCl (Amiodarone 200 Mg Tab) 200 mg PO QAM [facility] Stop: 07/28/22 08:59 Last Admin: 06/30/22 08:41 Dose: 200 mg Apixaban (Apixaban 5 Mg Tablet) 5 mg PO BID [facility] Stop: 07/28/22 08:59 Last Admin: 06/30/22 08:41 Dose: 5 mg Aspirin (Aspirin 81 Mg Ectab) 81 mg PO QAM [facility] Stop: 07/28/22 08:59 Last Admin: 06/30/22 08:41 Dose: 81 mg Atorvastatin Calcium (Atorvastatin 40 Mg Tab) 40 mg PO HS [facility] Stop: 07/28/22 20:59 Last Admin: 06/29/22 20:40 Dose: 40 mg Dextrose (Dextrose 50% 50 Ml Syringe) 25 - 50 ml IV UD PRN; Protocol PRN Reason: Hypoglycemia Protocol Stop: 07/28/22 04:25 Docusate Sodium (Docusate Sodium 100 Mg Cap) 100 mg PO BID PRN PRN Reason: Constipation Stop: 07/28/22 04:07 Fluticasone/Vilanterol (Fluticasone/Vilanterol 100/25mcg 14 Puffs/Inhaler) 1 puffs INH DAILY VICKY Stop: 07/28/22 08:59 Last Admin: 06/30/22 09:46 Dose: 1 puffs Glucagon (Glucagon For Inj 1 Mg Vial) 1 mg SQ UD PRN; Protocol PRN Reason: Hypoglycemia Protocol Stop: 07/28/22 04:25 Glucose (Glucose 10 Tab/Tube) 4 - 8 tab PO UD PRN; Protocol PRN Reason: Hypoglycemia Treatment Stop: 07/28/22 04:25 Glucose (Glucose 40% Gel 15 Gm Tube) 15 - 30 gm PO UD PRN; Protocol PRN Reason: Hypoglycemia Protocol Stop: 07/28/22 04:25 Heparin Sodium (Beef Lung) (Heparin 10 Unit/Ml 5 Ml Flush) 5 ml FLUSH PRN PRN PRN Reason: Flush Stop: 07/28/22 05:21 Last Admin: 06/30/22 04:46 Dose: 5 ml Piperacillin Sod/Tazobactam (Sod 4.5 gm/ Dextrose) 120 mls @ 30 mls/hr IV Q12H VICKY; Protocol Stop: 07/05/22 15:59 Last Infusion: 06/30/22 08:46 Dose: Infused Pantoprazole Sodium 40 mg/ (Syringe) 10 mls @ 5 mls/min IV DAILY@1100 [facility] Stop: 07/30/22 10:59 Last Admin: 06/30/22 12:21 Dose: 5 mls/min Sodium Chloride (Nss 1000ml) 1,000 mls @ 0 mls/hr IV .Q0M PRN PRN Reason: For Hemodialysis Use ONLY Stop: 06/30/22 15:23 Vancomycin HCl 500 mg/ (Dextrose) 110 mls @ 132 mls/hr IV ONE ONE; Protocol Stop: 06/30/22 18:49 Insulin Aspart (Insulin Aspart Per Unit Charge) 0 units SC ACHS VICKY; Protocol Stop: 07/28/22 04:44 Last Admin: 06/30/22 12:20 Dose: 3 units Insulin Glargine (Lantus Per Unit Charge) 8 units SQ DAILY [facility]; Protocol Stop: 07/28/22 08:59 Last Admin: 06/30/22 08:43 Dose: 8 units Midodrine (Midodrine Hcl 2.5 Mg Tab) 5 mg PO TID@0800,1200,1700 [facility] Stop: 07/30/22 07:59 Last Admin: 06/30/22 13:22 Dose: 5 mg Miscellaneous (Carbohydrates For Hypoglycemia ) 15 - 30 gm PO UD PRN PRN Reason: Hypoglycemia Protocol Stop: 07/28/22 04:25 Miscellaneous Information (Pharmacy Glycemic Mgmt Consult) 1 each N/A UD PRN; Protocol PRN Reason: Consult Stop: 07/28/22 04:28 Miscellaneous Information (Vancomycin Consult Active) 1 each N/A UD PRN PRN Reason: Consult Stop: 07/28/22 14:37 Montelukast Sodium (Montelukast Sodium 10 Mg Tablet) 10 mg PO HS [facility] Stop: 07/28/22 20:59 Last Admin: 06/29/22 20:41 Dose: 10 mg Ondansetron HCl (Ondansetron Inj 2 Mg/Ml 2 Ml Vial) 4 mg IV Q6H PRN PRN Reason: Nausea And Vomiting Stop: 07/28/22 04:07 Polyethylene Glycol (Polyethylene (Miralax) 17 Gm Pack) 17 gm PO DAILY PRN PRN Reason: Constipation Stop: 07/28/22 04:07
--- NOTE | 2022-06-30 16:35 | Orthopedic Progress Note ---
Date of Service June 30, 2022 Assessment & Plan (1) Infection of right foot: Plan Patient seen, evaluated, and treated. We reviewed bone scan report and images. Patient has no history of left hallux ulcer or wounds to left foot. We did discuss bone scan results noting concern for possible osteomyelitis of the left great toe. At this time there are no clinical or physical exam findings consistent with this result. Right third and fourth metatarsals show 3 phase radiotracer uptake consistent with osteomyelitis. We did discuss further right third and fourth resection as treatment. Patient would like to try and continue IV antibiotics as treatment. I will continue to follow while in house. Admission and Anticipated Discharge Date Admission Date: June 28, 2022 Subjective Patient seen while receiving Dialysis. He is resting comfortably and has no complaints. He notes he is feeling much better. Review of Systems Review of Systems: All systems reviewed & are unremarkable except as noted in Subjective Physical Exam Constitutional: + frail appearing, cooperative and comfortable Eyes: normal visual jacinto by confrontation Neck: trachea midline Respiratory: normal respiratory effort Cardiovascular: Rate/Rhythm: regular rate and regular rhythm Musculoskeletal: Ankle: + deformity (Right fourth and fifth ray amputation) Skin: + wound (Sutures intact to surgical resected areas with poor healing noted. Wound lo) Psychiatric: Orientation: alert and oriented x 3 Results & Data Vital Signs (Past 12 Hours) Vital Signs Temp Pulse Pulse Pulse Resp BP Pulse Ox 06/30/22 14:43 70 33 H 98 06/30/22 14:43 70 33 H 98 06/30/22 15:00 70 21 114/41 L 98 06/30/22 14:40 70 20 117/47 L 98 06/30/22 14:04 70 24 102/32 L 94 06/30/22 13:00 65 24 119/76 90 06/30/22 07:00 36.6 C 06/30/22 12:00 70 20 129/64 89 L 06/30/22 10:01 70 14 116/58 L 96 06/30/22 09:00 65 24 122/57 L 91 06/30/22 08:17 70 24 111/48 L 94 06/30/22 07:17 70 15 121/49 L 100 06/30/22 12:00 36.6 C 06/30/22 11:18 85 20 97 06/30/22 08:00 06/30/22 07:20 70 20 94 06/30/22 06:00 70 22 125/49 L 100 06/30/22 05:00 70 26 H 120/51 L 92 O2 Del Method O2 Flow Rate FiO2 06/30/22 14:43 40 06/30/22 14:43 BiPAP 40 06/30/22 15:00 Nasal Cannula 4 06/30/22 14:40 Nasal Cannula 4 06/30/22 14:04 Nasal Cannula 4 06/30/22 13:00 Nasal Cannula 4 06/30/22 07:00 06/30/22 12:00 Nasal Cannula 4 06/30/22 10:01 Nasal Cannula 4 06/30/22 09:00 Nasal Cannula 4 06/30/22 08:17 BiPAP 40 06/30/22 07:17 Nasal Cannula 4 06/30/22 12:00 06/30/22 11:18 Nasal Cannula 4 06/30/22 08:00 Nasal Cannula 4 06/30/22 07:20 Nasal Cannula 4 06/30/22 06:00 BiPAP 40 06/30/22 05:00 Diagnostic Findings THREE-PHASE BONE SCAN OF THE FEET HISTORY: recurrent sepsis, osteo, eval other sites for infection RADIOTRACER: 26.0 mCi Tc-99m MDP STUDY/IMAGES: Planar anterior and posterior imaging of the feet was performed immediately and 3 hours following the intravenous administration of radiotracer. Delayed whole body scanning was also obtained. COMPARISON: Chest x-ray and KUB 06/30/2022. Right foot radiograph 05/10/2022. Bone scan 05/12/2022. FINDINGS: Scattered areas of mild radiotracer uptake seen within the shoulders, sternoclavicular joints, and hips favor degenerative change. Abnormal 3 phase radiotracer uptake within the left first toe and right third and fourth metatarsals. The three-phase uptake within the right foot is similar to the prior study. IMPRESSION: 1. Interval development of abnormal 3 phase radiotracer uptake within the left first toe. This is concerning for osteomyelitis. 2. Persistent abnormal 3 phase radiotracer uptake within the right third and fourth metatarsals. This is similar to the prior study. This may also represent osteomyelitis. ACT 112: Negative or not required by law. Electronically signed by: Erwin Mitchell M.D. 06/30/2022 12:34 PM
[2022-06-30] MEDS ORDERED: VANCOMYCIN HCL 500 MG in DEXTROSE 5% 100 ML IV ONE (18:00)
[2022-06-30] MEDS: MONTELUKAST SODIUM 10 MG TABLET PO SCH (20:59)
[2022-06-30] MEDS: ATORVASTATIN 40 MG TAB PO SCH (20:59)
[2022-07-01] MEDS: PIPERACILLIN/TAZOBACTAM 4.5 GM CI (over 4 hours) IV SCH ×2 (04:37→16:20)
[2022-07-01 04:50] LABS: Hematocrit (blood only) 35.3 % (42.0-52.0); Hemoglobin 10.8 g/dl (14.0-18.0); Mean Corpuscular Hemoglobin 28.1 pg (25.0-34.0); Mean Corpuscular Hgb Conc 30.6 g/dL (32.0-36.0); Mean Corpuscular Volume 91.7 fL (80.0-100.0); Mean Platelet Volume 10.2 fL (9.4-12.4); Nucleated RBC # (auto) 0.02 K/uL (0-0.12); Nucleated RBC % (auto) 0.2 %; Platelet Count 211 K/uL (130-400); RDW Coefficient of Variation 19.7 % (11.5-14.5); RDW Standard Deviation 63.7 fL (36.4-46.3); Red Blood Count 3.85 M/uL (4.70-6.10); White Blood Count 10.23 K/ul (4.8-10.8)
[2022-07-01 05:12] LABS: Calcium 8.5 mg/dl (8.6-10.3); Creatinine Clr Calc Pharmacy 20.4 ml/min; Est GFR (African American) 14.6 ml/min; Est GFR (Non-African American) 12.6 ml/min; Magnesium 2.1 mg/dl (1.7-2.4); Phosphorus 5.4 mg/dl (2.5-4.9); Potassium 4.5 mmol/L (3.5-5.1)
[2022-07-01] MEDS: ALBUT/IPRATROP 3MG/0.5MG NEB 3 ML VIAL NEB SCH ×4 (07:29→19:26)
--- NOTE | 2022-07-01 07:51 | Hospitalist Progress Note ---
Date of Service July 01, 2022 Assessment & Plan (1) Hypotension: Plan: Hypotensive with increased oxygen requirements and respiratory distress AM 06/29 in setting of developing sepsis likely 2nd to foot infection/recent osteomyelitis. Lactic elevated on admission, improved on repeats BPs 60s/25, 76/44 , repeat manual 115/51 w/ O2 requirement from 5-6L to 12L on hiflow w/ tachypnea. concerns for volume overload given CXR w/ pulm congestion on admission despite EDW below outpt measurements and HD on 06/28 without pulling fluid off. CTA negative for PE, remains on eliquis 5mg BID Initially w/ concerns possible presser support in order to pull off fluid last evening with HD, started midodrine TID and additional dose provided prior to HD with successful ability to pull off 3L Did not require pressor support and discussed w/ intervisit and downgraded to PCU 06/30 Continue midodrine but at increased dose 5mg TID given stability ( BPs improved, 120s/57 AM 06/30 and additional 1.2L removed w/ HD last evening instead of 2L like initially thought 07/01 Eval'd this morning w/ increased O2 requirement/breathing difficulty w/ continued pulm congestion/edema on CXR (and ascites to abdomen) and undergoing HD for further UF This afternoon, helped RN wheel back from HD after 4L removed 07/01--> patient stated feeling much better breathing kearney and currently 97% on 5L --> titrate back to his usual 4L as able Continue midodrine 5mg TID, additional dosing per nephrology prior to HD Also discussed w/ patient on HCTZ and given not making urine would ideally discontinue this at discharge Tx as below regarding ongoing concerns for infection RIGHT foot, remains on Vanco/Zosyn, ID consulted and following (2) Infection of right foot: Plan: In patient w/ diabetes, Hx osteomyelitis of right root, and recent admission for Group B streptococcus bacteremia and had partial excision 3/4/5th metatarsals and excision right foot wount w/ Dr Rust on 05/13 I was concerned about ongoing infection/osteomyelitis given appearance of his right foot/toes given he had completed 6 wks Ancef, last date 06/24 and reported continued drainage at home Surface cx obtained other night for drainage to see if able to provide assistance. discussed w/ ID and likely noncontributory Podiatry on consult, wanted bone scan Impression: * 1.Interval development of abnormal 3 phase radiotracer uptake within the left first toe. This is concerning for osteomyelitis. * 2. Persistent abnormal 3 phase radiotracer uptake within the right third and f ourth metatarsals. This is similar to the prior study. This may also represent osteomyelitis. Continue Zosyn/Vanc (vanc dosing w/ pharmacy after HD last evening -- appreciate assistance) Podiatry consulted, possible need for TMA vs other -- continued assistance appreciated ID to check back in on Sunday, agreed to continue current abx regimen at this time Believe patient would benefit from amputation for source control given just completed 6 wks abx and ongoing infection, but defer intervention to podiatry on repeat evals WBC improved, afebrile Blood cultures remaining NGTD Continue to monitor (3) End-stage renal disease on hemodialysis: Plan: Patient ESRD on HD q M//. Nephrology consulted Continued volume overloaded state, overloaded on admission s/p HD 06/28 without pulling fluid off, HD on 06/29 for 3L, 06/30 for 1.2L and HD planned for today again for volume overload --> pulled off 4L today and feeling better Decreased to 1200cc/fluid restriction Continued assistance appreciated (4) Respiratory distress: Plan: 2nd to sepsis as well as volume overloaded state (CXR on admission w/ pulm congestion, elevated BNP) -- see above Placed on BiPAP 06/29 and overnight -> RT assisted w/ titrating back to his usual NC following HD and was back to his 4L this morning but still slightly volume overloaded and HD planned again for today for volume overload however much improved after 3L pulled off last evening (06/29) Additional HD for today as above CTA negative for PE or pneumonia Continue nebs/pulmonary toilet (5) Abdominal distention: Plan: KUB w/ distended/gas filled loops of small bowel. developing obstruction not excluded 06/29, backed to clears given continued BM x 2 in the morning and consulted surgery US abd w/ small-moderate ascites -- patient does NOT make urine (but was on HCTZ for this at home ?? -- discontinue at dc rec'd) HD for volume management as above On abx for any concerns SBP w/ Zosyn but if needing to tap would need to hold eliquis and given significant infection/sepsis/hx afib and high risk for clot w/ recent surgery would ideally not like to hold this medication Had been stable on clears, small bowel movements w/ less distension/discomfort and wanting to try real food General surgery on consult and discussed w/ them this morning --> advanced to full liquid diet for this afternoon and will monitor. If tolerating/no n/v or worsening ileus (KUB w/ now nondilated loops of bowl) can consider advancing to low fiber diet for the morning Continue PPI daily, consider increasing to BID if needed but will hold off for now GI consulted for his hx cirrhosis -- suspected abd pain combo ascitic fluid/slow to resolve ileus. Agreed zosyn should cover. Slow advancement of diet recommnede d to stimulate gut but if signifciant fluid to be removed would need risk/benefit for holding eliquis and as stated would ideally not like to have him off his eliquis given above (6) Ileus: Plan: improving, continued clear liquid diet and +BMs reported. KUB w/ improvement in now nondilated gas filled loops of small bowel within a bdomen discussed w/ surgery and advanced to full liquids, will monitor response and consider advancement to low fiber in AM if contineud improvement. Consider reglan given his hx DM for gastroparesis related for nausea if needed (7) Weakness: Plan: Multifactorial but suspected continued/ongoing sepsis w/ source R foot, volume overload w/ pulm congestion/elevated BNP/increased O2 needs Tx as outlined above, continued abx/hoping for source control Fall precautions in place PT/OT consults and likely need rehab at ma (8) Diabetes mellitus type 2, uncontrolled: Plan: Longstanding history of DM, most recent A1c 7.6 Dropped 3 days ago up in HD, had been given 10u long acting prior to help w/ hyperkalemia prior to HD and pharmacy contacted and adjustments made Patient had been refusing prior insulins but had discussed good wound healing w/ better control and had loosened parameters and he has been agreeable and BSGs better controlled Appreciate pharmacy assistance Monitor BSGs (9) Cirrhosis of liver with ascites: Plan: With increased abdominal distention since receiving IVF per patient on admit w/ elevated lactic. Abx w/ zosyn for foot should also help to cover Avoiding further IVF, abx for infection Small-mod ascites on US abd, HD as outlined above Is on HCTZ at home but given hypotension issues/not making any urine, doubt any benefit from continued use at discharge GI on consult as above (10) PAF (paroxysmal atrial fibrillation): Plan: Regular rhythm on physical exam. EKG ordered -- Vpaced rhythm Continue Amiodarone 200mg po qAM Continue Apixaban 5mg po BID (11) CAD (coronary artery disease): Plan: Patient wiht PCI to RCA in 2017. He had a cardiac catheterization in July 2019 with patent stent. Cardiac catheterization March 2021 with in-stent restenosis of the RCA with severe disease, chronically occluded OM3. No acute intervention. Patient on medical management - has been unable to tolerated beta blockers due to hypotension. He follows with Cardiology - Dr. Norton at [facility]. No CP reported except when laying flat w/ SOB from the ascites/volume overload Continue ASA, Atorvastatin (12) GERD (gastroesophageal reflux disease): Plan: Chronic. Stable. Patient on Omeprazole Protonix 40mg po daily while inpatient (13) Hyperlipidemia: Plan: Chronic. Stable Continue Atorvastatin 40mg po qHS (14) Hypertension: Plan: See above, hypotension No antihypertensives as above no amlodipine or HCTZ -- consider dc hctz at dc as above. can verify w/ nephro prior to dc given he doesn't make any urine Plan continued inpatient stay Admission and Anticipated Discharge Date Admission Date: June 28, 2022 Supervising Physician Co-Signing Physician Notes The patient was not seen by me. The chart was reviewed. Case discussed with MARK Godwin. Agree with assessment and plan Subjective Eval in HD, currently attempting to pull off more fluid. He noted Sunday morning after HD on feeling much better but worse this morning. Discussed clear liquid diet -- he is moving bowels, small amount. Abdomen tender/distended but not as distended as day prior. Discussed advancement of diet but will convene w/ general surgery to prevent excessive fluid/salt intake. Also discussed avoiding HCTZ in future given not able to make urine and this will only drop his BP further without benefit. He is inquiring about tapping his abdomen and discussed holding Eliquis would be required and given current infection would want to hold off unless concerns for SBP. No fevers. Foot exam stable from day prior, and seen by Dr Rust last evening who patient states told. Physical Exam Physical Exam: General: 52yo chronically ill appearing male sitting up in bed at HD this morning, on 5-6L NC, +cough, abdominal distention HEENT: head normocephalic, atraumatic, mmm, trachea midline Resp: tachypneic at times, +cough, improvement in air entry compared to but worse than yesterday, diminished in the bases, on 5L NC low 90s SpO2 CV: RRR, no significant m/r/g, no pitting edema RUE Picc line in place GI: +BS, +ascites, +distension (less), slightly tender to palpation but no guarding/rigidity : no friedman MSK/Neuro: RLE w/ dressing intact, less dusky appears to toes but eschar still present along the side, no active drainage b/l LE scattered crusted pustules with eschar without active drainage. two sutures noted LLE Psych: AOx3, cooperative with exam but wanting the fluid off his belly and hungry for more food/diet advancement Results & Data Results & Data Vital Signs (Past 12 Hours) Vital Signs Pulse Pulse Resp BP Pulse Ox O2 Del Method O2 Flow Rate 07/01/22 07:30 83 18 97 Nasal Cannula 3 07/01/22 06:00 70 18 93 07/01/22 04:00 66 16 95 07/01/22 04:00 100/60 07/01/22 02:00 62 18 97 07/01/22 00:01 107/38 L 07/01/22 00:01 70 21 100 07/01/22 00:00 70 21 100 07/01/22 03:51 70 26 H 94 06/30/22 22:00 70 20 95 06/30/22 21:04 66 24 94 06/30/22 21:04 112/41 L 06/30/22 21:02 70 27 H 98 06/30/22 21:00 70 26 H 95 06/30/22 20:00 62 19 92 07/01/22 00:00 74 06/30/22 21:00 Nasal Cannula, CPAP 4 06/30/22 22:37 66 28 H 99 FiO2 07/01/22 07:30 07/01/22 06:00 07/01/22 04:00 07/01/22 04:00 07/01/22 02:00 07/01/22 00:01 07/01/22 00:01 07/01/22 00:00 07/01/22 03:51 40 06/30/22 22:00 06/30/22 21:04 06/30/22 21:04 06/30/22 21:02 06/30/22 21:00 06/30/22 20:00 07/01/22 00:00 06/30/22 21:00 06/30/22 22:37 40 Laboratory Results 07/01/22 07/01/22 07/01/22 Range/Units 07:23 04:32 04:32 WBC 10.23 (4.8-10.8) K/ul RBC 3.85 L (4.70-6.10) M/uL Hgb 10.8 L (14.0-18.0) g/dl Hct 35.3 L (42.0-52.0) % MCV 91.7 (80.0-100.0) fL MCH 28.1 (25.0-34.0) pg MCHC 30.6 L (32.0-36.0) g/dL RDW Std Deviation 63.7 H (36.4-46.3) fL RDW Coeff of Octavio 19.7 H (11.5-14.5) % Plt Count 211 (130-400) K/uL MPV 10.2 (9.4-12.4) fL Absolute Nucleated RBC 0.02 (0-0.12) K/uL Nucleated RBC % (auto) 0.2 % Sodium (136-145) mmol/L Potassium (3.5-5.1) mmol/L Chloride (98-107) mmol/L Carbon Dioxide (21-32) mmol/L Anion Gap (3-11) BUN (6-23) mg/dl Creatinine (0.6-1.4) mg/dl Est Cr Clr Drug Dosing ml/min Est GFR ( Amer) ml/min Est GFR (Non-Af Amer) ml/min BUN/Creatinine Ratio (10-20) Glucose (70-99(Fasting)) mg/dl POC Glucose 118 H (70-99) mg/dl Calcium (8.6-10.3) mg/dl Phosphorus (2.5-4.9) mg/dl Magnesium (1.7-2.4) mg/dl Random Vancomycin 19.6 (10-20) mcg/ml Hep Bs Antigen (NON-REACTIVE) Hep Bs Ag Confirmation 07/01/22 06/30/22 06/30/22 Range/Units 04:32 22:59 21:02 WBC (4.8-10.8) K/ul RBC (4.70-6.10) M/uL Hgb (14.0-18.0) g/dl Hct (42.0-52.0) % MCV (80.0-100.0) fL MCH (25.0-34.0) pg MCHC (32.0-36.0) g/dL RDW Std Deviation (36.4-46.3) fL RDW Coeff of Octavio (11.5-14.5) % Plt Count (130-400) K/uL MPV (9.4-12.4) fL Absolute Nucleated RBC (0-0.12) K/uL Nucleated RBC % (auto) % Sodium 134 L (136-145) mmol/L Potassium 4.5 (3.5-5.1) mmol/L Chloride 97 L (98-107) mmol/L Carbon Dioxide 24 (21-32) mmol/L Anion Gap 13 H (3-11) BUN 34 H (6-23) mg/dl Creatinine 4.85 H* D (0.6-1.4) mg/dl Est Cr Clr Drug Dosing 20.4 ml/min Est GFR ( Amer) 14.6 ml/min Est GFR (Non-Af Amer) 12.6 ml/min BUN/Creatinine Ratio 7.0 L (10-20) Glucose 113 H (70-99(Fasting)) mg/dl POC Glucose 150 H 141 H (70-99) mg/dl Calcium 8.5 L (8.6-10.3) mg/dl Phosphorus 5.4 H (2.5-4.9) mg/dl Magnesium 2.1 (1.7-2.4) mg/dl Random Vancomycin (10-20) mcg/ml Hep Bs Antigen (NON-REACTIVE) Hep Bs Ag Confirmation 06/30/22 06/30/22 06/28/22 Range/Units 18:16 11:58 08:32 WBC (4.8-10.8) K/ul RBC (4.70-6.10) M/uL Hgb (14.0-18.0) g/dl Hct (42.0-52.0) % MCV (80.0-100.0) fL MCH (25.0-34.0) pg MCHC (32.0-36.0) g/dL RDW Std Deviation (36.4-46.3) fL RDW Coeff of Octavio (11.5-14.5) % Plt Count (130-400) K/uL MPV (9.4-12.4) fL Absolute Nucleated RBC (0-0.12) K/uL Nucleated RBC % (auto) % Sodium (136-145) mmol/L Potassium (3.5-5.1) mmol/L Chloride (98-107) mmol/L Carbon Dioxide (21-32) mmol/L Anion Gap (3-11) BUN (6-23) mg/dl Creatinine (0.6-1.4) mg/dl Est Cr Clr Drug Dosing ml/min Est GFR ( Amer) ml/min Est GFR (Non-Af Amer) ml/min BUN/Creatinine Ratio (10-20) Glucose (70-99(Fasting)) mg/dl POC Glucose 120 H 194 H (70-99) mg/dl Calcium (8.6-10.3) mg/dl Phosphorus (2.5-4.9) mg/dl Magnesium (1.7-2.4) mg/dl Random Vancomycin (10-20) mcg/ml Hep Bs Antigen NON-REACTIVE (NON-REACTIVE) Hep Bs Ag Confirmation TNP Diagnostic Findings Chest X-Ray 07/01/22 07:49 XR chest 1V portable HISTORY: Congestive heart failure. Shortness of breath. COMPARISON: Chest 06/30/2022. FINDINGS: Interval improvement in the mild pulmonary vascular congestion. No pneumothorax. The heart remains enlarged. There is a right-sided pacemaker again noted. Trace bilateral pleural effusions are again noted. Left basilar linear densities favor subsegmental atelectasis. The right PICC likely terminates in the SVC. IMPRESSION: 1. Interval improvement in the mild pulmonary vascular congestion. 2. Cardiomegaly and trace pleural effusions persist. ACT 112: Negative or not required by law. Electronically signed by: Erwin Mitchell M.D. 07/01/2022 10:18 AM KUB X-Ray 07/01/22 07:49 KUB HISTORY: Abdominal distention. Follow. COMPARISON: KUB 06/30/2022. FINDINGS: A few nondilated gas-filled loops of small bowel are again seen throughout the abdomen. These measure up to 2.8 cm in diameter. This has slightly improved. Vascular calcifications are again noted. A pacemaker wire is partially visualized. Hazy appearance to the abdomen likely represents the patient's known ascites. No renal calculi. No ureteral calculi. No pneumoperitoneum or pneumatosis. IMPRESSION: 1. Improvement in the now nondilated gas-filled loops of small bowel within the abdomen. 2. Ascites again noted. ACT 112: Negative or not required by law. Electronically signed by: Erwin Mitchell M.D. 07/01/2022 10:20 AM PG Care Time/CCT Total # of Minutes Spent Total Time Spent with Patient: Total time spent is greater than 50% in coordination of care (as documented) at patient's floor/unit and/or counseling patient: Coding Level of Care Code 23326 SUB INP/OBS CARE 3/50MIN Diagnoses Hypotension I95.9 Infection of right foot L08.9 End-stage renal disease on hemodialysis N18.6; Z99.2 Respiratory distress R06.03 Abdominal distention R14.0 Ileus K56.7 Weakness R53.1 Diabetes mellitus type 2, uncontrolled E11.65 Glycemic state: with hyperglycemia Cirrhosis of liver with ascites K74.60; R18.8 PAF (paroxysmal atrial fibrillation) I48.0 CAD (coronary artery disease) I25.10 Associated angina: without angina Coronary Disease-Associated Artery/Lesion type: [place] artery [place] vs. transplanted heart: [place] heart GERD (gastroesophageal reflux disease) K21.9 Hyperlipidemia E78.5 Hypertension I10 (8) Diabetes mellitus type 2, uncontrolled Glycemic state: with hyperglycemia Qualified Code(s): E11.65 - Type 2 diabetes mellitus with hyperglycemia (11) CAD (coronary artery disease) Associated angina: without angina Coronary Disease-Associated Artery/Lesion type: [place] artery [place] vs. transplanted heart: [place] heart Qualified Code(s): I25.10 - Atherosclerotic heart disease of [place] coronary artery without angina pectoris
[2022-07-01] MEDS: INSULIN ASPART PER UNIT CHARGE SC SCH ×4 (08:03→21:18)
[2022-07-01] MEDS: MIDODRINE HCL 2.5 MG TAB PO SCH ×3 (08:04→17:41)
[2022-07-01] MEDS: APIXABAN 5 MG TABLET PO SCH ×2 (08:05→20:29)
[2022-07-01] MEDS: AMIODARONE 200 MG TAB PO SCH (08:05)
[2022-07-01] MEDS: ASPIRIN 81 MG ECTAB PO SCH (08:05)
[2022-07-01] MEDS: FLUTICASONE/VILANTEROL 100/25MCG 14 PUFFS/INHALER INH SCH (08:06)
[2022-07-01] MEDS ORDERED: LANTUS PER UNIT CHARGE SQ SCH (09:00)
[2022-07-01] MEDS ORDERED: MIDODRINE HCL 10 MG TAB PO STA (10:09)
--- NOTE | 2022-07-01 10:19 | Nephrology Progress Note ---
Date of Service July 01, 2022 Assessment & Plan (1) End-stage renal disease on hemodialysis: (2) Moderate pulmonary hypertension: (3) Acute osteomyelitis of right foot: (4) Abdominal distention: Plan 52-year-old gentlemen with ESRD on hemodialysis Sunday, Sunday, Sunday, admitted with right foot osteomyelitis. Remained relatively hypotensive which makes UF challenging. Complain of significant shortness of breath and feeling of volume overload this morning. Abdominal distension possibly related to some volume overload however ileus may be playing a significant role as well. -- will do extra dialysis treatment today for 4 hours, aim to do UF at least 4 L if blood pressure tolerates, will give midodrine 10 mg before dialysis today. -- Dose medications for EGFR less than 10. -- limit fluid intake to less than 1200 mL per day, follow low-salt diet Admission and Anticipated Discharge Date Admission Date: June 28, 2022 Lanie Davis seen and evaluated this morning. He is feeling uncomfortable with abdominal distention and worsening shortness of breath and feels like his significantly volume overloaded. Had dialysis yesterday and had 1 L UF, it has been challenging to do UF because of persistent low blood pressure. Electrolyte has been acceptable. Review of Systems Review of Systems: Detailed review system was done and the pertinent positives and negatives mentioned above. Physical Exam Constitutional: WD/WN, vitals as above no acute distress Eyes: + anicteric sclerae Neck: normal visual inspection Respiratory: Auscultation: + crackles Cardiovascular: Rate/Rhythm: regular rate and regular rhythm Heart Sounds: normal S1 and normal S2 Extremities: + edema Skin: no rashes, warm and dry Neurologic: no focal motor deficits Psychiatric: Orientation: alert and oriented x 3 Results & Data Vital Signs (Past 12 Hours) Vital Signs Pulse Pulse Resp BP Pulse Ox O2 Del Method O2 Flow Rate 07/01/22 08:00 70 07/01/22 07:30 83 18 97 Nasal Cannula 3 07/01/22 06:00 70 18 93 07/01/22 04:00 66 16 95 07/01/22 04:00 100/60 07/01/22 02:00 62 18 97 07/01/22 00:01 107/38 L 07/01/22 00:01 70 21 100 07/01/22 00:00 70 21 100 07/01/22 03:51 70 26 H 94 07/01/22 00:00 74 06/30/22 22:37 66 28 H 99 FiO2 07/01/22 08:00 07/01/22 07:30 07/01/22 06:00 07/01/22 04:00 07/01/22 04:00 07/01/22 02:00 07/01/22 00:01 07/01/22 00:01 07/01/22 00:00 07/01/22 03:51 40 07/01/22 00:00 06/30/22 22:37 40 PG Care Time/CCT Total # of Minutes Spent Total Time Spent with Patient: Total time spent is greater than 50% in coordination of care (as documented) at patient's floor/unit and/or counseling patient: Coding Level of Care Code 25404 SUB INP/OBS CARE 3/50MIN Diagnoses End-stage renal disease on hemodialysis N18.6; Z99.2 Moderate pulmonary hypertension I27.20 Acute osteomyelitis of right foot M86.171 Abdominal distention R14.0
--- NOTE | 2022-07-01 10:19 | XRay Report ---
XR chest 1V portable HISTORY: Congestive heart failure. Shortness of breath. COMPARISON: Chest 06/30/2022. FINDINGS: Interval improvement in the mild pulmonary vascular congestion. No pneumothorax. The heart remains enlarged. There is a right-sided pacemaker again noted. Trace bilateral pleural effusions are again noted. Left basilar linear densities favor subsegmental atelectasis. The right PICC likely ter minates in the SVC. IMPRESSION: 1. Interval improvement in the mild pulmonary vascular congestion. 2. Cardiomegaly and trace pleural effusions persist. ACT 112: Negative or not required by law. Electronically signed by: Erwin Mitchell M.D. 07/01/2022 10:18 AM
--- NOTE | 2022-07-01 10:21 | XRay Report ---
KUB HISTORY: Abdominal distention. Follow. COMPARISON: KUB 06/30/2022. FINDINGS: A few nondilated gas-filled loops of small bowel are again seen throughout the abdomen. The se measure up to 2.8 cm in diameter. This has slightly improved. Vascular calcifications are again no marilyn. A pacemaker wire is partially visualized. Hazy appearance to the abdomen likely represents the p atient's known ascites. No renal calculi. No ureteral calculi. No pneumoperitoneum or pneumatosis. IMPRESSION: 1. Improvement in the now nondilated gas-filled loops of small bowel within the abdomen. 2. Ascites again noted. ACT 112: Negative or not required by law. Electronically signed by: Erwin Mitchell M.D. 07/01/2022 10:20 AM
[2022-07-01] MEDS: PANTOprazole 40 MG in SYRINGE 0 ML IV SCH (10:24)
--- NOTE | 2022-07-01 10:30 | Surgery Progress Note ---
Date of Service July 01, 2022 Assessment & Plan (1) Ileus: Plan: 07/01/2022 Repeat KUB from this AM shows: Improvement in the now nondilated gas-filled loops of small bowel within the abdomen. No indication for surgical intervention. Recommend continue to go slow with advancing his diet as he continues to improve. General Surgery will sign off at this time. 06/30/2022 Doing well. Certainly no indication for surgical intervention. We will repeat KUB. Still distended so would keep him on clears for now. We will slowly advance as he improves. Dr. Islas covering for the weekend if any questions. (2) Respiratory distress: Admission and Anticipated Discharge Date Admission Date: June 28, 2022 Supervising Physician Co-Signing Physician Notes Patient seen and examined, labs reviewed, agree with above. Patient with multiple medical problems, concern for ileus, passing gas and having bowel movements. Abdomen distended but secondary to fluid. KUB shows improvement with nondilated loops of bowel. No evidence of obstruction or persistent ileus, diet as tolerated, abdominal distention likely related to ascites consider paracentesis or increased fluid removal during dialysis. Surgery will sign off, call with questions or concerns. Subjective Ryan is resting in bed, reports that he continues to pass flatus and move his bowels. Review of Systems Gastrointestinal: no abdominal pain, no nausea and no vomiting Physical Exam Physical Exam: Abdomen remains distended, but non-tender. Respiratory: normal respiratory effort; no respiratory distress and no labored breathing Results & Data Vital Signs (Past 12 Hours) Vital Signs Pulse Pulse Resp BP Pulse Ox O2 Del Method O2 Flow Rate 07/01/22 08:00 70 07/01/22 07:30 83 18 97 Nasal Cannula 3 07/01/22 06:00 70 18 93 07/01/22 04:00 66 16 95 07/01/22 04:00 100/60 07/01/22 02:00 62 18 97 07/01/22 00:01 107/38 L 07/01/22 00:01 70 21 100 07/01/22 00:00 70 21 100 07/01/22 03:51 70 26 H 94 07/01/22 00:00 74 06/30/22 22:37 66 28 H 99 FiO2 07/01/22 08:00 07/01/22 07:30 07/01/22 06:00 07/01/22 04:00 07/01/22 04:00 07/01/22 02:00 07/01/22 00:01 07/01/22 00:01 07/01/22 00:00 07/01/22 03:51 40 07/01/22 00:00 06/30/22 22:37 40 PG Care Time/CCT Total # of Minutes Spent Total Time Spent with Patient: Total time spent is greater than 50% in coordination of care (as documented) at patient's floor/unit and/or counseling patient: Coding Level of Care Code 32772 SUB INP/OBS CARE 125MIN Diagnoses Ileus K56.7 Respiratory distress R06.03
--- NOTE | 2022-07-01 11:48 | Pharmacy Report ---
Pharmacy PK ABX Note - Date of Service July 01, 2022 - Assessment and Plan Assessment 52 year old M receiving empiric vancomycin and Zosyn for treatment of right foot osteomyelitis. Pertinent microbiologic data includes: right foot cultures growing group B Strep, MSSA, and Cutibacterium acnes in April 2022 w/ history of Pseudomonas aeruginosa in right foot 12/2021. Patient has T2DM and ESRD requiring HD. ID consulted. Day #4 of antimicrobial therapy. * Afebrile. White count: 10k-->9.9k-->11.3k-->10.2k today. * HD performed yesterday and patient received a supplemental 500 mg dose of Vancomycin following HD. Random level this AM was therapeutic. Nephrology will plan to do another HD session today for this patient. Will again give a 500 mg supplemental dose following HD this evening. Will order a random level for Sunday morning. * Per RN, patient is completely anuric. No urine output. * R foot cx updated to be growing corynebacterium species. ID believes this is contaminated and recommends continuing vancomycin and zosyn for now. Plan Vancomycin * Pre-HD random level this AM was 19.6 mcg/mL which is therapeutic. * Will give a 500 mg dose of IV Vancomycin x 1 following HD this evening. * Repeat random level ordered for Sunday AM (07/03/22). Zosyn * 4.5 g IV q12h -appropriate for patient on HD Pharmacy will continue to follow and will adjust dose/frequency as necessary. Thank you. Pharmacy has transitioned to AUC monitoring for vancomycin. AUC/ANKIT is the preferred PK/PD target and is associated with decreased risk of nephrotoxicity compared to traditional trough targets.
--- NOTE | 2022-07-01 15:47 | Gastrointestinal Consultation ---
Date of Consultation July 01, 2022 Assessment & Plan (1) Abdominal distention: Pleasant man with a lot of medical problems. I suspect his abdominal pain is due to a combination of ascitic fluid and his slow to resolve ileus. Concern is there for SBP but piperacillin should cover that. If fluid is significant in amount paracentesis could be done but eliquis would have to be held and risk/benefit would have to be determined. I think slowly advancing his diet to stimulate his gut is a good idea for now. If he doesn't tolerate advancing diet then we can just back it back down to liquids. History of Present Illness Reason for Consultation: abdominal pain, ascites Attending Physician: Hood Hendricks MD History of Present Illness 52 year old man with ESRD and cirrhosis/ascites and I am asked to see for abdominal pain. Patient tells me he has never been told he had liver disease and has never had any one stick a needle in his abdomen. He has also developed an ileus while in the hospital. Patient feels comfortable that his abdominal pain is due to his abdominal distension. He is asking me to stick a needle into his abdomen to let the air out. He does have small bowel movements but he is on liquids only. He also is passing gas. He is currently on eliquis. Allergies Allergy/AdvReac Type Severity Reaction Status Date / Time codeine AdvReac Mild DELIRIUM,ME Verified 06/28/22 04:17 AN tramadol AdvReac Mild nausea and Verified 06/28/22 04:17 vomiting Home Medications Medication Instructions Recorded Confirmed Type miscellaneous medical supply 1 ea miscellaneous DAILY #1 ea 03/08/21 06/26/22 Rx acetaminophen 500 mg capsule 1,000 mg PO TID PRN Pain #180 caps 11/21/21 06/28/22 Rx montelukast 10 mg tablet 10 mg PO HS 01/25/22 06/28/22 History insulin glargine U-300 conc 300 33 unit (0.11 mL) subcut QAM #4.5 02/22/22 06/28/22 Rx unit/mL (1.5 mL) subcutaneous pen mL (Toujeo SoloStar U-300 Insulin) cholecalciferol (vitamin D3) 125 125 mcg PO DAILY 03/16/22 06/26/22 History mcg (5,000 unit) capsule amiodarone 200 mg tablet 200 mg PO QAM #90 tabs 03/21/22 06/28/22 Rx apixaban 5 mg tablet (Eliquis) 5 mg PO BID #180 tabs 03/21/22 06/28/22 Rx atorvastatin 40 mg tablet 40 mg PO HS #90 tabs 03/21/22 06/28/22 Rx fluticasone furoate 100 1 inh inhalation DAILY 04/04/22 06/28/22 History mcg-vilanterol 25 mcg/dose inhalation powder (Breo Ellipta) hydrochlorothiazide 25 mg tablet 25 mg PO BID 04/04/22 06/28/22 History omeprazole 20 mg tablet,delayed 20 mg PO DAILY 04/04/22 06/28/22 History release albuterol sulfate 90 mcg/actuation 2 puff inhalation Q6H PRN 05/02/22 06/28/22 Rx aerosol inhaler shortness of breath or wheezing #18 grams Hospital Bed Homecare #1 ea 05/25/22 06/26/22 Rx ondansetron 4 mg disintegrating 4 mg PO Q8H PRN nausea and 06/07/22 06/26/22 Rx tablet vomiting #30 tabs betamethasone valerate 0.1 % 1 applic topical BID PRN skin 06/08/22 06/28/22 Rx topical cream irritation #15 grams insulin glulisine U-100 100 4 unit (0.04 mL) subcut ONCE #1 box 06/14/22 06/28/22 Rx unit/mL subcutaneous pen (Apidra SoloStar U-100 Insulin) amlodipine 10 mg tablet 10 mg PO DAILY #90 tabs 06/20/22 06/28/22 Rx aspirin 81 mg chewable tablet 81 mg PO QAM 06/20/22 06/28/22 History ranolazine 500 mg tablet,extended 500 mg PO BID 06/20/22 06/26/22 History release,12 hr Patient History Medical History Acute metabolic encephalopathy Acute on chronic diastolic CHF (congestive heart failure) Anemia of chronic disease Arthritis CAD (coronary artery disease) 08/2015- L Cx stent; 11/2017- RCA stent, L Cx stent patent; 07/2019- LM wnl, prox-mid LAD 30%, mid-L Cx stent patent, RCA stent stent with area between stents 30-40%. Sees [facility], Dr Sharad Norton. 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) Repaired s/p PPV, MP, EL (SNT) Dialysis AV fistula malfunction Dialysis AV fistula malfunction Diverticular disease Elevated troponin End-stage renal disease on hemodialysis ESRD (end stage renal disease) on dialysis dialysis sun-sun-sun is getting dialysis sat prior to colonoscopy 09/29/2019 and will have it again after on sunday09/30/2019 GERD (gastroesophageal reflux disease) History of COVID-19 (12/2020) Hyperkalemia Hyperlipidemia Hypertension Moderate pulmonary hypertension Nuclear sclerosis of both eyes Obstructive sleep apnea cpap on 4L N/C On home oxygen therapy 4L N/C at all times Osteoarthritis, hip, bilateral Pleural effusion, bilateral 11/2018 Pneumonia Presence of arteriovenous fistula for hemodialysis left forearm Secondary pulmonary hypertension Status post placement of implantable loop recorder (07/07/21) Vitreous hemorrhage of right eye due to diabetes mellitus (12/04/18) Surgical History History of cardiac cath X 2 - 11/2017 - [facility] - SOB - 1 stent placed - follows w/ Dr. Zuniga - 2015 - [facility] - 1 stent placed History of colonoscopy History of foot surgery left x 4 History of heart artery stent X2 History of placement of chest tube left lung for pleural effusion 11/2018 History of tooth extraction all teeth S/P arteriovenous (AV) fistula creation 04/2016 Dr. Mena placed S/P AV sera ablation (01/18/22) S/P bilateral cataract extraction (05/2021) S/P cardiac catheterization Dr. Sharad Calvillo at [facility]- 01/09/22 S/P cardiac pacemaker procedure (01/18/22) secondary to symptomatic bradycardia Status post amputation of toe (12/29/21) R 2nd toe d/t infection Status post amputation of toe of right foot (01/27/22) metatarsal resection R toe 2-5 d/t osteomyelitis/gangrene Family History Mother Diabetes Coronary heart disease Heart disease Hypertension Stroke Father Diabetes Coronary heart disease Heart disease Myocardial infarction Hypertension Stroke Other Kidney disease No family history of adverse response to anesthesia Denies family history of Ovarian cancer Prostate cancer Breast cancer Lung cancer Colorectal cancer Social History Smoking Status: Former smoker Second Hand Exposure: No; Do You Dip or Chew Tobacco: No; Hx Alcohol Use: No Hx Substance Use: No Preferred Language: Welsh Communication Ability: Effective Communication Ability Comment: significant other, Kaycee speaks and writes/read Welsh well Visual Impairment: No Limitations Hearing Ability: Normal Photogeologist Required: No Beliefs That Will Affect Care: None marital status: Single Current Living Situation: Spouse Current Living Situation Comment: lives with significant other near [place] current occupational status: disabled How many Children do You have: 0 Other Information That Helps 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 Safe at Home: Yes Safety Concerns: Feels Safe At This Time Childhood Exposure to Second-Hand Smoke: Yes Diet: regular Diet Comment: regular caffeine: No during the past year weight has: remained stable Dental Care, Regularly: No Physical Activity Frequency: 1-2 Times per Week Physical Activity Frequency Comment: walk Seatbelt Use: always Sunscreen Use: No Assistive Devices: CPAP, Hospital Bed, Oxygen - Continuous, Walker and Wheelchair Review of Systems Review of Systems: All systems reviewed & are unremarkable except as noted in HPI & below Physical Exam Constitutional: WD/WN, vitals as above no acute distress Eyes: PERRL, conjunctivae normal, anicteric sclerae ENMT: external ear and nose normal, oropharynx normal Neck: trachea midline, no thyromegaly Respiratory: normal respiratory effort, lungs clear to auscultation Cardiovascular: RRR, no murmur, no edema Gastrointestinal (Abdomen): Inspection/Auscultation: + abdomen distended (markedly distended, tympanitic) Musculoskeletal: Extremities: no cyanosis and no clubbing Skin: no rashes, warm and dry Neurologic: PERRL, EOMI, accommodation nl, no face palsy, no dysarthria Psychiatric: Orientation: alert and oriented x 3 Results & Data Vital Signs (Past 12 Hours) Vital Signs Temp Pulse Pulse Resp BP BP Pulse Ox 07/01/22 14:55 36.5 C 70 146/68 H 07/01/22 15:25 71 18 97 07/01/22 14:30 70 123/85 07/01/22 14:00 67 86/41 L 07/01/22 13:30 75 110/39 L 07/01/22 13:00 70 112/38 L 07/01/22 12:30 89 139/77 07/01/22 12:00 70 101/59 L 07/01/22 11:30 70 128/68 07/01/22 11:00 83 111/73 07/01/22 10:33 36.5 C 69 07/01/22 10:28 71 18 96 07/01/22 08:00 70 07/01/22 07:30 83 18 97 07/01/22 06:00 70 18 93 07/01/22 04:00 66 16 95 07/01/22 04:00 100/60 07/01/22 03:51 70 26 H 94 O2 Del Method O2 Flow Rate FiO2 07/01/22 14:55 07/01/22 15:25 Nasal Cannula 5 07/01/22 14:30 07/01/22 14:00 07/01/22 13:30 07/01/22 13:00 07/01/22 12:30 07/01/22 12:00 07/01/22 11:30 07/01/22 11:00 07/01/22 10:33 07/01/22 10:28 Nasal Cannula 5 07/01/22 08:00 07/01/22 07:30 Nasal Cannula 3 07/01/22 06:00 07/01/22 04:00 07/01/22 04:00 07/01/22 03:51 40 Laboratory Results 07/01/22 07/01/22 07/01/22 Range/Units 07:23 04:32 04:32 WBC 10.23 (4.8-10.8) K/ul RBC 3.85 L (4.70-6.10) M/uL Hgb 10.8 L (14.0-18.0) g/dl Hct 35.3 L (42.0-52.0) % MCV 91.7 (80.0-100.0) fL MCH 28.1 (25.0-34.0) pg MCHC 30.6 L (32.0-36.0) g/dL RDW Std Deviation 63.7 H (36.4-46.3) fL RDW Coeff of Octavio 19.7 H (11.5-14.5) % Plt Count 211 (130-400) K/uL MPV 10.2 (9.4-12.4) fL Absolute Nucleated RBC 0.02 (0-0.12) K/uL Nucleated RBC % (auto) 0.2 % Sodium (136-145) mmol/L Potassium (3.5-5.1) mmol/L Chloride (98-107) mmol/L Carbon Dioxide (21-32) mmol/L Anion Gap (3-11) BUN (6-23) mg/dl Creatinine (0.6-1.4) mg/dl Est Cr Clr Drug Dosing ml/min Est GFR ( Amer) ml/min Est GFR (Non-Af Amer) ml/min BUN/Creatinine Ratio (10-20) Glucose (70-99(Fasting)) mg/dl POC Glucose 118 H (70-99) mg/dl Calcium (8.6-10.3) mg/dl Phosphorus (2.5-4.9) mg/dl Magnesium (1.7-2.4) mg/dl Random Vancomycin 19.6 (10-20) mcg/ml 07/01/22 06/30/22 06/30/22 Range/Units 04:32 22:59 21:02 WBC (4.8-10.8) K/ul RBC (4.70-6.10) M/uL Hgb (14.0-18.0) g/dl Hct (42.0-52.0) % MCV (80.0-100.0) fL MCH (25.0-34.0) pg MCHC (32.0-36.0) g/dL RDW Std Deviation (36.4-46.3) fL RDW Coeff of Octavio (11.5-14.5) % Plt Count (130-400) K/uL MPV (9.4-12.4) fL Absolute Nucleated RBC (0-0.12) K/uL Nucleated RBC % (auto) % Sodium 134 L (136-145) mmol/L Potassium 4.5 (3.5-5.1) mmol/L Chloride 97 L (98-107) mmol/L Carbon Dioxide 24 (21-32) mmol/L Anion Gap 13 H (3-11) BUN 34 H (6-23) mg/dl Creatinine 4.85 H* D (0.6-1.4) mg/dl Est Cr Clr Drug Dosing 20.4 ml/min Est GFR ( Amer) 14.6 ml/min Est GFR (Non-Af Amer) 12.6 ml/min BUN/Creatinine Ratio 7.0 L (10-20) Glucose 113 H (70-99(Fasting)) mg/dl POC Glucose 150 H 141 H (70-99) mg/dl Calcium 8.5 L (8.6-10.3) mg/dl Phosphorus 5.4 H (2.5-4.9) mg/dl Magnesium 2.1 (1.7-2.4) mg/dl Random Vancomycin (10-20) mcg/ml 06/30/22 Range/Units 18:16 WBC (4.8-10.8) K/ul RBC (4.70-6.10) M/uL Hgb (14.0-18.0) g/dl Hct (42.0-52.0) % MCV (80.0-100.0) fL MCH (25.0-34.0) pg MCHC (32.0-36.0) g/dL RDW Std Deviation (36.4-46.3) fL RDW Coeff of Octavio (11.5-14.5) % Plt Count (130-400) K/uL MPV (9.4-12.4) fL Absolute Nucleated RBC (0-0.12) K/uL Nucleated RBC % (auto) % Sodium (136-145) mmol/L Potassium (3.5-5.1) mmol/L Chloride (98-107) mmol/L Carbon Dioxide (21-32) mmol/L Anion Gap (3-11) BUN (6-23) mg/dl Creatinine (0.6-1.4) mg/dl Est Cr Clr Drug Dosing ml/min Est GFR ( Amer) ml/min Est GFR (Non-Af Amer) ml/min BUN/Creatinine Ratio (10-20) Glucose (70-99(Fasting)) mg/dl POC Glucose 120 H (70-99) mg/dl Calcium (8.6-10.3) mg/dl Phosphorus (2.5-4.9) mg/dl Magnesium (1.7-2.4) mg/dl Random Vancomycin (10-20) mcg/ml Diagnostic Findings Abdomen Ultrasound 06/29/22 08:27 US abdomen ltd ascites CLINICAL HISTORY: eval ascites COMPARISON STUDY: FINDINGS: Real-time sonographic imaging of the abdomen was performed with underwriting sales representative images submitted. There is a small to moderate amount of scattered ascites seen within the abdomen. IMPRESSION: Small to moderate amount of ascites. ACT 112: Negative or not required by law. Electronically signed by: Erwin Mitchell M.D. 06/29/2022 11:03 AM Chest CTA 06/29/22 10:42 CT ANGIOGRAPHY OF THE CHEST, PULMONARY EMBOLUS PROTOCOL CLINICAL HISTORY: Shortness of breath. Evaluate for pulmonary embolus. COMPARISON STUDY: Chest radiograph performed earlier today. Chest CT April 07, 2021. Chest CT May 08, 2022. TECHNIQUE: Following IV administration of 111 mL of Optiray, helical axial images of the chest were obtained utilizing the pulmonary embolus protocol. Maximal intensity projections and sagittal and coronal reformats were viewed on an independent 3D workstation. IV contrast was administered without complication. Automated exposure control was utilized for the study. A dose lowering technique was utilized adhering to the principles of ALARA. CT DOSE: 666.32 mGy.cm FINDINGS: No pulmonary emboli are identified although the segmental and subsegmental pulmonary arteries are suboptimally assessed due to respiratory motion. There is moderate cardiomegaly and extensive coronary artery calcification. A right subclavian pacer is in place. There is no pericardial effusion. There is no pneumothorax. Small left pleural effusion is noted. There is a trace right pleural effusion. Subpleural opacities within lungs favor atelectasis. There is no definite consolidation to suggest pneumonia. There are mild groundglass opacities within the lungs. The lungs are suboptimally assessed due to respiratory motion. Multiple mildly enlarged mediastinal and hilar lymph nodes are similar to prior CT. There are no acute fractures within the bony thorax. Hepatic cyst is incidentally noted. There is nodularity of the liver surface. Small amount of upper abdominal ascites is present. IMPRESSION: 1. No pulmonary emboli identified although segmental and subsegmental pulmonary arteries within the lower lobes suboptimally assessed due to respiratory motion. 2. Small left and trace right pleural effusions. Subpleural opacities favor atelectasis. 3. Groundglass opacities within the lungs which are nonspecific. These could reflect mild edema or less likely an infectious process. 4. Moderate cardiomegaly. Extensive coronary artery calcification. 5. No change in mild mediastinal and bilateral hilar lymphadenopathy which is nonspecific but likely benign. 6. Suspected cirrhosis. Small amount of upper abdominal ascites. ACT 112: Negative or not required by law. Electronically signed by: Mnaolo Shelton M.D. 06/29/2022 11:57 AM Bone Scan Nuclear Medicine 06/30/22 08:00 THREE-PHASE BONE SCAN OF THE FEET HISTORY: recurrent sepsis, osteo, eval other sites for infection RADIOTRACER: 26.0 mCi Tc-99m MDP STUDY/IMAGES: Planar anterior and posterior imaging of the feet was performed immediately and 3 hours following the intravenous administration of radiotracer. Delayed whole body scanning was also obtained. COMPARISON: Chest x-ray and KUB 06/30/2022. Right foot radiograph 05/10/2022. Bone scan 05/12/2022. FINDINGS: Scattered areas of mild radiotracer uptake seen within the shoulders, sternoclavicular joints, and hips favor degenerative change. Abnormal 3 phase radiotracer uptake within the left first toe and right third and fourth metatarsals. The three-phase uptake within the right foot is similar to the prior study. IMPRESSION: 1. Interval development of abnormal 3 phase radiotracer uptake within the left first toe. This is concerning for osteomyelitis. 2. Persistent abnormal 3 phase radiotracer uptake within the right third and fourth metatarsals. This is similar to the prior study. This may also represent osteomyelitis. ACT 112: Negative or not required by law. Electronically signed by: Erwin Mitchell M.D. 06/30/2022 12:34 PM Chest X-Ray 07/01/22 07:49 XR chest 1V portable HISTORY: Congestive heart failure. Shortness of breath. COMPARISON: Chest 06/30/2022. FINDINGS: Interval improvement in the mild pulmonary vascular congestion. No pneumothorax. The heart remains enlarged. There is a right-sided pacemaker again noted. Trace bilateral pleural effusions are again noted. Left basilar linear densities favor subsegmental atelectasis. The right PICC likely terminates in the SVC. IMPRESSION: 1. Interval improvement in the mild pulmonary vascular congestion. 2. Cardiomegaly and trace pleural effusions persist. ACT 112: Negative or not required by law. Electronically signed by: Erwin Mitchell M.D. 07/01/2022 10:18 AM KUB X-Ray 07/01/22 07:49 KUB HISTORY: Abdominal distention. Follow. COMPARISON: KUB 06/30/2022. FINDINGS: A few nondilated gas-filled loops of small bowel are again seen throughout the abdomen. These measure up to 2.8 cm in diameter. This has slightly improved. Vascular calcifications are again noted. A pacemaker wire is partially visualized. Hazy appearance to the abdomen likely represents the patient's known ascites. No renal calculi. No ureteral calculi. No pneumoperitoneum or pneumatosis. IMPRESSION: 1. Improvement in the now nondilated gas-filled loops of small bowel within the abdomen. 2. Ascites again noted. ACT 112: Negative or not required by law. Electronically signed by: Erwin Mitchell M.D. 07/01/2022 10:20 AM
[2022-07-01] MEDS ORDERED: VANCOMYCIN HCL 500 MG in DEXTROSE 5% 100 ML IV ONE (18:00)
[2022-07-01] MEDS: ATORVASTATIN 40 MG TAB PO SCH (20:29)
[2022-07-01] MEDS: MONTELUKAST SODIUM 10 MG TABLET PO SCH (20:29)
[2022-07-02] MEDS: PIPERACILLIN/TAZOBACTAM 4.5 GM CI (over 4 hours) IV SCH ×2 (04:34→16:39)
[2022-07-02 06:38] LABS: Basophils # (auto) 0.06 K/uL (0-0.2); Basophils % (auto) 0.7 %; Eosinophils # (auto) 0.07 K/uL (0-0.50); Eosinophils % (auto) 0.8 %; Hematocrit (blood only) 36.1 % (42.0-52.0); Hemoglobin 10.9 g/dl (14.0-18.0); Immature Granulocytes # (auto) 0.02 K/uL (0.01-0.20); Immature Granulocytes % (auto) 0.2 %; Lymphocytes # (auto) 0.72 K/uL (1.2-3.4); Lymphocytes % (auto) 7.9 %; Mean Corpuscular Hemoglobin 27.8 pg (25.0-34.0); Mean Corpuscular Hgb Conc 30.2 g/dL (32.0-36.0); Mean Corpuscular Volume 92.1 fL (80.0-100.0); Mean Platelet Volume 10.4 fL (9.4-12.4); Monocytes # (auto) 0.82 K/uL (0.11-0.59); Neutrophils # (auto) 7.45 K/uL (1.40-6.50); Neutrophils % (auto) 81.4 %; Nucleated RBC # (auto) 0.02 K/uL (0-0.12); Nucleated RBC % (auto) 0.2 %; Platelet Count 200 K/uL (130-400); RDW Standard Deviation 65.2 fL (36.4-46.3); Red Blood Count 3.92 M/uL (4.70-6.10); White Blood Count 9.14 K/ul (4.8-10.8)
[2022-07-02 06:52] LABS: BUN Creatinine Ratio 6.1 (10-20); C Reactive Protein 9.56 mg/dl (0-0.5); Calcium 8.1 mg/dl (8.6-10.3); Creatinine Clr Calc Pharmacy 22.7 ml/min; Est GFR (African American) 17.1 ml/min; Est GFR (Non-African American) 14.8 ml/min; Phosphorus 5.6 mg/dl (2.5-4.9); Potassium 4.3 mmol/L (3.5-5.1)
[2022-07-02] MEDS: ALBUT/IPRATROP 3MG/0.5MG NEB 3 ML VIAL NEB SCH ×4 (06:54→19:44)
--- NOTE | 2022-07-02 07:48 | Hospitalist Progress Note ---
Date of Service July 02, 2022 Assessment & Plan (1) Infection of right foot: Plan: In patient w/ diabetes, Hx osteomyelitis of right root, and recent admission for Group B streptococcus bacteremia and had partial excision 3/4/5th metatarsals and excision right foot wount w/ Dr Rust on 05/13 I was concerned about ongoing infection/osteomyelitis given appearance of his right foot/toes given he had completed 6 wks Ancef, last date 06/24 and reported continued drainage at home Surface cx obtained other night for drainage to see if able to provide assistance. discussed w/ ID and likely noncontributory Podiatry on consult, wanted bone scan Impression: * 1.Interval development of abnormal 3 phase radiotracer uptake within the left first toe. This is concerning for osteomyelitis. * 2. Persistent abnormal 3 phase radiotracer uptake within the right third and fourth metatarsals. This is similar to the prior study. This may also represent osteomyelitis. Continue Zosyn/Vanc Podiatry consulted, possible need for TMA vs other -- continued assistance appreciated ID to check back in on Sunday, agreed to continue current abx regimen at this time Believe patient would benefit from amputation for source control given just completed 6 wks abx and ongoing infection, but defer intervention to podiatry on repeat evals WBC continued improvement. Remains afebrile. Blood cultures remain NGTD Monitor labs in AM, planning for HD again tomorrow (2) Hypotension: Plan: Hypotensive with increased oxygen requirements and respiratory distress AM 06/29 in setting of developing sepsis likely 2nd to foot infection/recent osteomyelitis. Lactic elevated on admission, improved on repeats BPs 60s/25, 76/44 , repeat manual 115/51 w/ O2 requirement from 5-6L to 12L on hiflow w/ tachypnea. concerns for volume overload given CXR w/ pulm congestion on admission despite EDW below outpt measurements and HD on 06/28 without pulling fluid off. CTA negative for PE, remains on eliquis 5mg BID Initially w/ concerns possible presser support in order to pull off fluid last evening with HD, started midodrine TID and additional dose provided prior to HD with successful ability to pull off 3L and did not require pressor support and downgraded to PCU Remains on midodrine 5mg TID, 10mg dose in AM w/ HD and nephro recs for additional dosing/adjustments w/ HD 4L removed w/ HD 07/01, next HD for tomorrow, UF as tolerated Continue 1200mL fluid restriction, diet advanced to low fiber for today as outlined given improvement in KUB and continued bowel movements ABx/ID/podiatry on consult for R foot infection as outlined for developing sepsis 2nd to foot infection BP stable 106/52 at present and denied any lightheaded/dizziness Rec STOPPING his HCTZ given he does not make urine at baseline and prevention of hypotension at discharge (3) End-stage renal disease on hemodialysis: Plan: Patient ESRD on HD q M/W/F. Nephrology consulted Continued volume overloaded state, overloaded on admission s/p HD 06/28 without pulling fluid off HD on 06/29 for 3L, HS on 06/30 for 1.2L HD on 07/01 and was able to pull 4L off and patient reporting significant improvement in breathing/abdominal distension and ascites on exam Continue fluid restriction, diet advanced (4) Respiratory distress: Plan: 2nd to sepsis as well as volume overloaded state (CXR on admission w/ pulm congestion, elevated BNP) -- see above Placed on BiPAP 06/29 and overnight HD as outlined above BiPAP HS, consider continued use of such at discharge CTA negative for PE Currently back to his usual 4L NC Continue nebs/pulmonary toilet (5) Abdominal distention: Plan: developing obstruction not excluded on KUB 06/29 and backed to clear liquids given +BM right before study Had tolerated clears, moving bowels., surgery followed, ok w/ advancing diet Ascites improved w/ HD GI on consult KUB improving Diet advanced today to low fiber given improvement in imaging, patient report as well as moving his bowels (6) Ileus: Plan: resolved, moving bowels diet advanced to low fiber diet, monitor continued bowel movements. Check cdiff given abx use/distension and 4BM this morning reported Consider reglan if susp for gastroparesis w/ his DM (7) Weakness: Plan: Multifactorial but suspected continued/ongoing sepsis w/ source R foot, volume overload w/ pulm congestion/elevated BNP/increased O2 needs Tx as outlined above, continued abx/hoping for source control Fall precautions in place PT/OT consults and likely need rehab at dc Got himself from bed to bedside commode this morning, improvement in weakness reported w/ tx for above (8) Diabetes mellitus type 2, uncontrolled: Plan: Longstanding history of DM, most recent A1c 7.6 Dropped 4 days ago up in HD, had been given 10u long acting prior to help w/ hyperkalemia prior to HD and pharmacy contacted and adjustments made Patient had been refusing prior insulins but had discussed good wound healing w/ better control and had loosened parameters and he has been agreeable and BSGs better controlled Appreciate pharmacy assistance (9) Cirrhosis of liver with ascites: Plan: With increased abdominal distention since receiving IVF per patient on admit w/ elevated lactic. Abx w/ zosyn for foot should also help to cover Avoiding further IVF, abx for infection Small-mod ascites on US abd prior day in stay, HD as outlined above for UF, good HD for 4L yesterday Is on HCTZ at home but given hypotension issues/not making any urine, doubt any benefit from continued use at discharge GI on consult as above (10) PAF (paroxysmal atrial fibrillation): Plan: Regular rhythm on physical exam. EKG ordered -- Vpaced rhythm Continue Amiodarone 200mg po qAM Continue Apixaban 5mg po BID (11) CAD (coronary artery disease): Plan: Patient wiht PCI to RCA in 2017. He had a cardiac catheterization in July 2019 with patent stent. Cardiac catheterization March 2021 with in-stent restenosis of the RCA with severe disease, chronically occluded OM3. No acute intervention. Patient on medical management - has been unable to tolerated beta blockers due to hypotension. He follows with Cardiology - Dr. Norton at [facility]. No CP reported except when laying flat w/ SOB from the ascites/volume overload which is reportedly also improving Continue ASA, Atorvastatin (12) GERD (gastroesophageal reflux disease): Plan: Chronic. Stable. Patient on Omeprazole Protonix 40mg daily while inpatient (13) Hyperlipidemia: Plan: Chronic. Stable Continue Atorvastatin 40mg po qHS (14) Hypertension: Plan: See above, hypotension No antihypertensives as above no amlodipine or HCTZ -- consider dc hctz at dc as above. can verify w/ nephro prior to dc given he doesn't make any urine Plan continued inpatient stay, continue abx, monitor cultures HD for tomorrow podiatry to eval for surgery for foot ID f/u for tomorrow Admission and Anticipated Discharge Date Admission Date: June 28, 2022 Supervising Physician Co-Signing Physician Notes The patient was not seen by me. The chart was reviewed. Case discussed with MARK Godwin. Agree with assessment and plan Subjective eval this afternoon around lunch, getting up from the bed to chair for BM. Stated multiple BMs since overnight at 2am and discussed KUB/advancement of diet. Ate all his breakfast, discussed advancing to low fiber diet. He has been itching at his legs/picking scabs. Given topical steroid and he notes minimal improvement but only short lasting. Takes 50mg of benadryl at home, discussed lower dose but will give IV. Breathing stable, he notes he is able to get a lot better air entry since his abdomen edema is decreasing. No chest pain at present. Questions/concerns addressed at this time. Physical Exam Physical Exam: General: 52yo chronically ill appearing male looking better today, getting up himself from bed to bedside commode for bowel movement. brown liquid stool smear present in underwear HEENT: head normocephalic, atraumatic, mmm, trachea midline Resp: no further tachypnea, able to talk in complete sentences, diminished in the bases but improvement in air entry bilaterally, no wheezing, 97% on 4L NC CV: RRR, no significant m/r/g, no pitting edema. RUE picc line in place GI: +BS, distention/ascites (much less), soft, no rigidity : no friedman MSK/Neuro: RLE w/ dressing intact, less dusky appears to toes but eschar still present along the side, no active drainage b/l LE scattered crusted pustules with eschar with recent bleeding noted from scratching/picking, blood on bed sheets in bed Psych: AOx3, cooperative and joking around today, would like improvement in diet Results & Data Results & Data Vital Signs (Past 12 Hours) Vital Signs Temp Pulse Pulse Pulse Resp BP Pulse Ox 07/02/22 07:00 72 07/02/22 06:55 70 2 L 97 07/02/22 06:55 70 20 97 07/02/22 04:04 36.7 C 70 18 114/40 L 97 07/02/22 03:57 25 H 97 07/01/22 23:33 36.5 C 70 18 108/67 96 07/01/22 20:20 07/01/22 22:52 75 23 96 07/01/22 20:07 36.5 C 70 18 96/52 L 95 07/01/22 20:05 71 12 96 O2 Del Method FiO2 07/02/22 07:00 07/02/22 06:55 40 07/02/22 06:55 BiPAP 40 07/02/22 04:04 CPAP 07/02/22 03:57 40 07/01/22 23:33 CPAP 07/01/22 20:20 BiPAP 07/01/22 22:52 40 07/01/22 20:07 CPAP 07/01/22 20:05 40 Laboratory Results 07/02/22 07/02/22 07/02/22 Range/Units 11:16 07:12 05:57 WBC (4.8-10.8) K/ul RBC (4.70-6.10) M/uL Hgb (14.0-18.0) g/dl Hct (42.0-52.0) % MCV (80.0-100.0) fL MCH (25.0-34.0) pg MCHC (32.0-36.0) g/dL RDW Std Deviation (36.4-46.3) fL RDW Coeff of Octavio (11.5-14.5) % Plt Count (130-400) K/uL MPV (9.4-12.4) fL Immature Gran % (Auto) % Neut % (Auto) % Lymph % (Auto) % Nance % (Auto) % Eos % (Auto) % Baso % (Auto) % Neut # (Auto) (1.40-6.50) K/uL Lymph # (Auto) (1.2-3.4) K/uL Nance # (Auto) (0.11-0.59) K/uL Eos # (Auto) (0-0.50) K/uL Baso # (Auto) (0-0.2) K/uL Immature Gran # (Auto) (0.01-0.20) K/uL Absolute Nucleated RBC (0-0.12) K/uL Nucleated RBC % (auto) % ESR 73 H (0-20) mm/hr Sodium (136-145) mmol/L Potassium (3.5-5.1) mmol/L Chloride (98-107) mmol/L Carbon Dioxide (21-32) mmol/L Anion Gap (3-11) BUN (6-23) mg/dl Creatinine (0.6-1.4) mg/dl Est Cr Clr Drug Dosing ml/min Est GFR ( Amer) ml/min Est GFR (Non-Af Amer) ml/min BUN/Creatinine Ratio (10-20) Glucose (70-99(Fasting)) mg/dl POC Glucose 227 H 146 H (70-99) mg/dl Calcium (8.6-10.3) mg/dl Phosphorus (2.5-4.9) mg/dl Magnesium (1.7-2.4) mg/dl C-Reactive Protein (0-0.5) mg/dl 07/02/22 07/02/22 07/02/22 Range/Units 05:57 05:57 00:08 WBC 9.14 (4.8-10.8) K/ul RBC 3.92 L (4.70-6.10) M/uL Hgb 10.9 L (14.0-18.0) g/dl Hct 36.1 L (42.0-52.0) % MCV 92.1 (80.0-100.0) fL MCH 27.8 (25.0-34.0) pg MCHC 30.2 L (32.0-36.0) g/dL RDW Std Deviation 65.2 H (36.4-46.3) fL RDW Coeff of Octavio 20.0 H (11.5-14.5) % Plt Count 200 (130-400) K/uL MPV 10.4 (9.4-12.4) fL Immature Gran % (Auto) 0.2 % Neut % (Auto) 81.4 % Lymph % (Auto) 7.9 % Nance % (Auto) 9.0 % Eos % (Auto) 0.8 % Baso % (Auto) 0.7 % Neut # (Auto) 7.45 H (1.40-6.50) K/uL Lymph # (Auto) 0.72 L (1.2-3.4) K/uL Nance # (Auto) 0.82 H (0.11-0.59) K/uL Eos # (Auto) 0.07 (0-0.50) K/uL Baso # (Auto) 0.06 (0-0.2) K/uL Immature Gran # (Auto) 0.02 (0.01-0.20) K/uL Absolute Nucleated RBC 0.02 (0-0.12) K/uL Nucleated RBC % (auto) 0.2 % ESR (0-20) mm/hr Sodium 136 (136-145) mmol/L Potassium 4.3 (3.5-5.1) mmol/L Chloride 97 L (98-107) mmol/L Carbon Dioxide 27 (21-32) mmol/L Anion Gap 12 H (3-11) BUN 26 H (6-23) mg/dl Creatinine 4.25 H D (0.6-1.4) mg/dl Est Cr Clr Drug Dosing 22.7 ml/min Est GFR ( Amer) 17.1 ml/min Est GFR (Non-Af Amer) 14.8 ml/min BUN/Creatinine Ratio 6.1 L (10-20) Glucose 153 H (70-99(Fasting)) mg/dl POC Glucose 161 H (70-99) mg/dl Calcium 8.1 L (8.6-10.3) mg/dl Phosphorus 5.6 H (2.5-4.9) mg/dl Magnesium 2.0 (1.7-2.4) mg/dl C-Reactive Protein 9.56 H (0-0.5) mg/dl 07/01/22 07/01/22 Range/Units 20:40 16:15 WBC (4.8-10.8) K/ul RBC (4.70-6.10) M/uL Hgb (14.0-18.0) g/dl Hct (42.0-52.0) % MCV (80.0-100.0) fL MCH (25.0-34.0) pg MCHC (32.0-36.0) g/dL RDW Std Deviation (36.4-46.3) fL RDW Coeff of Octavio (11.5-14.5) % Plt Count (130-400) K/uL MPV (9.4-12.4) fL Immature Gran % (Auto) % Neut % (Auto) % Lymph % (Auto) % Nance % (Auto) % Eos % (Auto) % Baso % (Auto) % Neut # (Auto) (1.40-6.50) K/uL Lymph # (Auto) (1.2-3.4) K/uL Nance # (Auto) (0.11-0.59) K/uL Eos # (Auto) (0-0.50) K/uL Baso # (Auto) (0-0.2) K/uL Immature Gran # (Auto) (0.01-0.20) K/uL Absolute Nucleated RBC (0-0.12) K/uL Nucleated RBC % (auto) % ESR (0-20) mm/hr Sodium (136-145) mmol/L Potassium (3.5-5.1) mmol/L Chloride (98-107) mmol/L Carbon Dioxide (21-32) mmol/L Anion Gap (3-11) BUN (6-23) mg/dl Creatinine (0.6-1.4) mg/dl Est Cr Clr Drug Dosing ml/min Est GFR ( Amer) ml/min Est GFR (Non-Af Amer) ml/min BUN/Creatinine Ratio (10-20) Glucose (70-99(Fasting)) mg/dl POC Glucose 214 H 126 H (70-99) mg/dl Calcium (8.6-10.3) mg/dl Phosphorus (2.5-4.9) mg/dl Magnesium (1.7-2.4) mg/dl C-Reactive Protein (0-0.5) mg/dl Diagnostic Findings Chest X-Ray 07/01/22 07:49 XR chest 1V portable HISTORY: Congestive heart failure. Shortness of breath. COMPARISON: Chest 06/30/2022. FINDINGS: Interval improvement in the mild pulmonary vascular congestion. No pneumothorax. The heart remains enlarged. There is a right-sided pacemaker again noted. Trace bilateral pleural effusions are again noted. Left basilar linear densities favor subsegmental atelectasis. The right PICC likely terminates in the SVC. IMPRESSION: 1. Interval improvement in the mild pulmonary vascular congestion. 2. Cardiomegaly and trace pleural effusions persist. ACT 112: Negative or not required by law. Electronically signed by: Erwin Mitchell M.D. 07/01/2022 10:18 AM KUB X-Ray 07/01/22 07:49 KUB HISTORY: Abdominal distention. Follow. COMPARISON: KUB 06/30/2022. FINDINGS: A few nondilated gas-filled loops of small bowel are again seen throughout the abdomen. These measure up to 2.8 cm in diameter. This has slightly improved. Vascular calcifications are again noted. A pacemaker wire is partially visualized. Hazy appearance to the abdomen likely represents the patient's known ascites. No renal calculi. No ureteral calculi. No pneumoperitoneum or pneumatosis. IMPRESSION: 1. Improvement in the now nondilated gas-filled loops of small bowel within the abdomen. 2. Ascites again noted. ACT 112: Negative or not required by law. Electronically signed by: Erwin Mitchell M.D. 07/01/2022 10:20 AM PG Care Time/CCT Total # of Minutes Spent Total Time Spent with Patient: Total time spent is greater than 50% in coordination of care (as documented) at patient's floor/unit and/or counseling patient: Coding Level of Care Code 63148 SUB INP/OBS CARE 3/50MIN Diagnoses Infection of right foot L08.9 Hypotension I95.9 End-stage renal disease on hemodialysis N18.6; Z99.2 Respiratory distress R06.03 Abdominal distention R14.0 Ileus K56.7 Weakness R53.1 Diabetes mellitus type 2, uncontrolled E11.65 Glycemic state: with hyperglycemia Cirrhosis of liver with ascites K74.60; R18.8 PAF (paroxysmal atrial fibrillation) I48.0 CAD (coronary artery disease) I25.10 Associated angina: without angina Coronary Disease-Associated Artery/Lesion type: [place] artery [place] vs. transplanted heart: tang[place]q heart GERD (gastroesophageal reflux disease) K21.9 Hyperlipidemia E78.5 Hypertension I10 (8) Diabetes mellitus type 2, uncontrolled Glycemic state: with hyperglycemia Qualified Code(s): E11.65 - Type 2 diabetes mellitus with hyperglycemia (11) CAD (coronary artery disease) Associated angina: without angina Coronary Disease-Associated Artery/Lesion type: [place] artery [place] vs. transplanted heart: tang[place]q heart Qualified Code(s): I25.10 - Atherosclerotic heart disease of [place] coronary artery without angina pectoris
[2022-07-02] MEDS: INSULIN ASPART PER UNIT CHARGE SC SCH ×4 (07:49→21:01)
[2022-07-02] MEDS: MIDODRINE HCL 2.5 MG TAB PO SCH ×3 (08:58→17:07)
[2022-07-02] MEDS: APIXABAN 5 MG TABLET PO SCH (08:58)
[2022-07-02] MEDS: AMIODARONE 200 MG TAB PO SCH (08:59)
[2022-07-02] MEDS ORDERED: LANTUS PER UNIT CHARGE SQ SCH (09:00)
[2022-07-02] MEDS: FLUTICASONE/VILANTEROL 100/25MCG 14 PUFFS/INHALER INH SCH (09:01)
[2022-07-02] MEDS: ASPIRIN 81 MG ECTAB PO SCH (09:01)
[2022-07-02] MEDS ORDERED: HYDROCORTISONE 1% CRM 30 GM TUBE EXT PRN (09:24)
--- NOTE | 2022-07-02 09:54 | Nephrology Progress Note ---
Date of Service July 02, 2022 Assessment & Plan (1) End-stage renal disease on hemodialysis: (2) Moderate pulmonary hypertension: (3) Acute osteomyelitis of right foot: (4) Abdominal distention: Plan 52-year-old gentlemen with ESRD on hemodialysis Sunday, Sunday, Sunday, admitted with right foot osteomyelitis. Abdominal distension with ascites and ileus. Had extra dialysis treatment today for 4 hours yesterday had 4 L UF tolerated well. --plan for HD tomorrow, UF as tolerated, midodrine 10 mg before dialysis. --dose medications for EGFR less than 10. -- limit fluid intake to less than 1200 mL per day, follow low-salt diet Admission and Anticipated Discharge Date Admission Date: June 28, 2022 Lanie Davis seen and evaluated this morning. He is overall feeling better, abdominal distention slightly improved. Had HD with 4 L UF yesterday. Started to have BM and passing gas. BP fair. Electrolyte has been acceptable. Review of Systems Review of Systems: Detailed review system was done and the pertinent positives and negatives men tioned above. Physical Exam Constitutional: WD/WN, vitals as above no acute distress Eyes: + anicteric sclerae Neck: normal visual inspection Respiratory: Auscultation: + crackles Cardiovascular: Rate/Rhythm: regular rate and regular rhythm Heart Sounds: normal S1 and normal S2 Extremities: + edema Gastrointestinal (Abdomen): Inspection/Auscultation: + abdomen distended Percussion/Palpation: + ascites; abdomen nontender, no guarding and abdomen not rigid Skin: no rashes, warm and dry Neurologic: no focal motor deficits Psychiatric: Orientation: alert and oriented x 3 Results & Data Vital Signs (Past 12 Hours) Vital Signs Temp Pulse Pulse Pulse Resp BP Pulse Ox 07/02/22 07:55 36.3 C L 72 17 110/74 94 07/02/22 07:00 72 07/02/22 06:55 70 2 L 97 07/02/22 06:55 70 20 97 07/02/22 04:04 36.7 C 70 18 114/40 L 97 07/02/22 03:57 25 H 97 07/01/22 23:33 36.5 C 70 18 108/67 96 07/01/22 22:52 75 23 96 O2 Del Method O2 Flow Rate FiO2 07/02/22 07:55 Nasal Cannula 4 07/02/22 07:00 05/07/23 06:55 40 07/02/22 06:55 BiPAP 40 07/02/22 04:04 CPAP 07/02/22 03:57 40 07/01/22 23:33 CPAP 07/01/22 22:52 40 PG Care Time/CCT Total # of Minutes Spent Total Time Spent with Patient: Total time spent is greater than 50% in coordination of care (as documented) at patient's floor/unit and/or counseling patient: Coding Level of Care Code 29161 SUB INP/OBS CARE 2/35MIN Diagnoses End-stage renal disease on hemodialysis N18.6; Z99.2 Moderate pulmonary hypertension I27.20 Acute osteomyelitis of right foot M86.171 Abdominal distention R14.0
--- NOTE | 2022-07-02 10:05 | Gastroenterology Progress Note ---
Date of Service July 02, 2022 Assessment & Plan (1) Abdominal distention: Plan: Seems to be improving. Would advance diet as tolerated and see how he does Admission and Anticipated Discharge Date Admission Date: June 28, 2022 Subjective Chatty. Seems to be feeling better. Had four liters removed with dialysis yesterday and four bowel movements today. On full liquids Physical Exam Physical Exam: He looks comfortable Constitutional: WD/WN, vitals as above Results & Data Vital Signs (Past 12 Hours) Vital Signs Temp Pulse Pulse Pulse Resp BP Pulse Ox 07/02/22 07:55 36.3 C L 72 17 110/74 94 07/02/22 07:00 72 07/02/22 06:55 70 2 L 97 07/02/22 06:55 70 20 97 07/02/22 04:04 36.7 C 70 18 114/40 L 97 07/02/22 03:57 25 H 97 07/01/22 23:33 36.5 C 70 18 108/67 96 07/01/22 22:52 75 23 96 O2 Del Method O2 Flow Rate FiO2 07/02/22 07:55 Nasal Cannula 4 07/02/22 07:00 07/02/22 06:55 40 07/02/22 06:55 BiPAP 40 07/02/22 04:04 CPAP 07/02/22 03:57 40 07/01/22 23:33 CPAP 07/01/22 22:52 40
--- NOTE | 2022-07-02 11:51 | XRay Report ---
KUB CLINICAL HISTORY: Abdominal distention. COMPARISON STUDY: KUB July 01, 2022. FINDINGS: A few loops of mildly dilated small bowel are noted. These have minimally increased since p rior exam. There is no convincing evidence for a bowel obstruction. Pacer leads are partially imaged. Extensive vascular calcification is present. IMPRESSION: A few loops of mildly dilated small bowel without convincing evidence for a bowel obstru ction. ACT 112: Negative or not required by law. Electronically signed by: Manolo Shelton M.D. 07/02/2022 11:50 AM
[2022-07-02] MEDS: PANTOprazole 40 MG in SYRINGE 0 ML IV SCH (11:59)
[2022-07-02] MEDS ORDERED: diphenhydrAMINE 50 MG/ML VIAL IV ONE (12:16)
--- NOTE | 2022-07-02 18:26 | Orthopedic Progress Note ---
Date of Service July 02, 2022 Assessment & Plan (1) Infection of right foot: Plan Patient seen, evaluated, and treated. Wound examined. At this time Patient would benefit from OR debridement and application of wound vac. All questions anwswered. Admission and Anticipated Discharge Date Admission Date: June 28, 2022 Subjective Patient seen at bedside resting comfortably. He has no complaints. Review of Systems Review of Systems: All systems reviewed & are unremarkable except as noted in Subjective Physical Exam Constitutional: + frail appearing, cooperative and comfortable Eyes: normal visual jacinto by confrontation Neck: trachea midline Respiratory: normal respiratory effort Cardiovascular: Rate/Rhythm: regular rate and regular rhythm Musculoskeletal: Ankle: + deformity (Right fourth and fifth ray amputation) Skin: + wound (Sutures intact to surgical resected areas with poor healing noted. Wound lo) Psychiatric: Orientation: alert and oriented x 3 Results & Data Vital Signs (Past 12 Hours) Vital Signs Temp Pulse Pulse Resp BP Pulse Ox Pulse Ox 07/02/22 16:46 36.3 C L 70 26 H 108/54 L 97 07/02/22 15:44 71 07/02/22 14:12 70 18 96 07/02/22 12:29 96 07/02/22 11:55 36.3 C L 70 15 106/52 L 97 07/02/22 10:39 72 18 98 07/02/22 08:00 07/02/22 07:55 36.3 C L 72 17 110/74 94 07/02/22 07:00 72 07/02/22 06:55 70 2 L 97 07/02/22 06:55 70 20 97 Pulse Ox O2 Del Method O2 Flow Rate O2 Flow Rate O2 Flow Rate FiO2 07/02/22 16:46 Nasal Cannula 4 07/02/22 15:44 07/02/22 14:12 Nasal Cannula 4 07/02/22 12:29 88 L 5 5 07/02/22 11:55 Nasal Cannula 4 07/02/22 10:39 Nasal Cannula 5 07/02/22 08:00 Nasal Cannula 4 07/02/22 07:55 Nasal Cannula 4 07/02/22 07:00 07/02/22 06:55 40 07/02/22 06:55 BiPAP 40
[2022-07-02] MEDS ORDERED: OXYMETAZOLINE 0.05% 30 ML BTL ONE (18:31)
[2022-07-02] MEDS: MONTELUKAST SODIUM 10 MG TABLET PO SCH (20:31)
[2022-07-02] MEDS: ATORVASTATIN 40 MG TAB PO SCH (20:31)
[2022-07-03] MEDS: PIPERACILLIN/TAZOBACTAM 4.5 GM CI (over 4 hours) IV SCH ×2 (03:16→18:33)
[2022-07-03 06:16] LABS: Basophils # (auto) 0.06 K/uL (0-0.2); Basophils % (auto) 0.7 %; Eosinophils # (auto) 0.11 K/uL (0-0.50); Eosinophils % (auto) 1.3 %; Hematocrit (blood only) 35.6 % (42.0-52.0); Immature Granulocytes # (auto) 0.03 K/uL (0.01-0.20); Immature Granulocytes % (auto) 0.3 %; Lymphocytes # (auto) 1.02 K/uL (1.2-3.4); Lymphocytes % (auto) 11.8 %; Mean Corpuscular Hemoglobin 27.8 pg (25.0-34.0); Mean Corpuscular Hgb Conc 30.9 g/dL (32.0-36.0); Mean Corpuscular Volume 89.9 fL (80.0-100.0); Mean Platelet Volume 10.8 fL (9.4-12.4); Monocytes # (auto) 0.76 K/uL (0.11-0.59); Monocytes % (auto) 8.8 %; Neutrophils # (auto) 6.69 K/uL (1.40-6.50); Neutrophils % (auto) 77.1 %; Nucleated RBC # (auto) 0.03 K/uL (0-0.12); Nucleated RBC % (auto) 0.3 %; Platelet Count 199 K/uL (130-400); RDW Coefficient of Variation 19.5 % (11.5-14.5); RDW Standard Deviation 63.4 fL (36.4-46.3); Red Blood Count 3.96 M/uL (4.70-6.10); White Blood Count 8.67 K/ul (4.8-10.8)
[2022-07-03 06:36] LABS: Albumin Globulin Ratio 0.8 (0.9-2); BUN Creatinine Ratio 6.8 (10-20); Bilirubin,Total 0.7 mg/dl (0.2-1.0); Calcium 7.8 mg/dl (8.6-10.3); Creatinine Clr Calc Pharmacy 18.4 ml/min; Est GFR (African American) 13.1 ml/min; Est GFR (Non-African American) 11.3 ml/min; Globulin 3.6 gm/dl (2.5-4.0); Magnesium 1.9 mg/dl (1.7-2.4); Potassium 4.3 mmol/L (3.5-5.1); Total Protein 6.6 gm/dl (6.0-8.3)
[2022-07-03] MEDS: ALBUT/IPRATROP 3MG/0.5MG NEB 3 ML VIAL NEB SCH ×4 (06:55→19:36)
[2022-07-03] MEDS: MIDODRINE HCL 2.5 MG TAB PO SCH ×3 (07:45→18:38)
[2022-07-03] MEDS: AMIODARONE 200 MG TAB PO SCH (07:45)
[2022-07-03] MEDS: FLUTICASONE/VILANTEROL 100/25MCG 14 PUFFS/INHALER INH SCH (07:45)
[2022-07-03] MEDS: ASPIRIN 81 MG ECTAB PO SCH (07:46)
[2022-07-03] MEDS: INSULIN ASPART PER UNIT CHARGE SC SCH ×3 (07:51→20:58)
--- NOTE | 2022-07-03 07:57 | Anesthesiology Consultation ---
Date of Service July 03, 2022 Assessment & Plan (1) Encounter for pre-operative examination: Chart Review Chart Review: Acceptable Risk for Surgery History Surgery Operation Date: 07/03/22 09:40 Proposed Procedures p Right Foot Debridement with Application of Wound Vac - Edilson Rust, [place], [place] Height/Weight Height: 5 ft 7 in Weight: 104.2 kg Allergies Allergy/AdvReac Type Severity Reaction Status Date / Time codeine AdvReac Mild DELIRIUM,ME Verified 06/28/22 04:17 AN tramadol AdvReac Mild nausea and Verified 06/28/22 04:17 vomiting Medications Home Medications Medication Instructions Recorded Confirmed Last Taken miscellaneous medical supply 1 ea miscellaneous DAILY #1 ea 03/08/21 06/26/22 Unknown acetaminophen 500 mg capsule 1,000 mg PO TID PRN Pain #180 caps 11/21/21 06/28/22 04/01/22 montelukast 10 mg tablet 10 mg PO HS 01/25/22 06/28/22 04/03/22 18:00 insulin glargine U-300 conc 300 33 unit (0.11 mL) subcut QAM #4.5 02/22/2204/03/22 04:30 unit/mL (1.5 mL) subcutaneous pen mL (Toujeo SoloStar U-300 Insulin) cholecalciferol (vitamin D3) 125 125 mcg PO DAILY 03/16/22 06/26/22 04/04/22 04:30 mcg (5,000 unit) capsule amiodarone 200 mg tablet 200 mg PO QAM #90 tabs 03/21/22 06/28/22 04/04/22 04:30 apixaban 5 mg tablet (Eliquis) 5 mg PO BID #180 tabs 03/21/22 06/28/22 04/04/22 04:30 atorvastatin 40 mg tablet 40 mg PO HS #90 tabs 03/21/22 06/28/22 04/03/22 18:00 fluticasone furoate 100 1 inh inhalation DAILY 04/04/22 06/28/22 04/04/22 04:30 mcg-vilanterol 25 mcg/dose inhalation powder (Breo Ellipta) hydrochlorothiazide 25 mg tablet 25 mg PO BID 04/04/22 06/28/22 04/04/22 04:30 omeprazole 20 mg tablet,delayed 20 mg PO DAILY 04/04/22 06/28/22 04/04/22 04:30 release albuterol sulfate 90 mcg/actuation 2 puff inhalation Q6H PRN 05/02/22 06/28/22 Unknown aerosol inhaler shortness of breath or wheezing #18 grams Hospital Bed Homecare #1 ea 05/25/22 06/26/22 Unknown ondansetron 4 mg disintegrating 4 mg PO Q8H PRN nausea and 06/07/22 06/26/22 Unknown tablet vomiting #30 tabs betamethasone valerate 0.1 % 1 applic topical BID PRN skin 06/08/22 06/28/22 Unknown topical cream irritation #15 grams insulin glulisine U-100 100 4 unit (0.04 mL) subcut ONCE #1 box 06/14/22 06/28/22 Unknown unit/mL subcutaneous pen (Apidra SoloStar U-100 Insulin) amlodipine 10 mg tablet 10 mg PO DAILY #90 tabs 06/20/22 06/28/22 Unknown aspirin 81 mg chewable tablet 81 mg PO QAM 06/20/22 06/28/22 Unknown ranolazine 500 mg tablet,extended 500 mg PO BID 06/20/22 06/26/22 Unknown release,12 hr Active Medications Generic Name Dose Route Start Last Admin Trade Name Freq PRN Reason Stop Dose Admin Albuterol 2 puffs 06/28/22 04:24 06/28/22 05:44 Albuterol Hfa 8 Gm Inhaler INH 07/28/22 04:23 2 puffs Q6H PRN Administration shortness of breath or wheezing Albuterol 3 ml 06/28/22 19:00 07/03/22 06:55 Albut/Ipratrop 3mg/0.5mg Neb 3 Ml Vial NEB 07/28/22 18:59 3 ml QIDR VICKY Administration Protocol Albuterol 3 ml 06/28/22 15:14 06/28/22 23:30 Albut/Ipratrop 3mg/0.5mg Neb 3 Ml Vial NEB 07/28/22 15:13 3 ml Q2H PRN Administration SOB/WHEEZING Protocol Amiodarone HCl 200 mg 06/28/22 09:00 07/03/22 07:45 Amiodarone 200 Mg Tab PO 07/28/22 08:59 200 mg QAM VICKY Administration Aspirin 81 mg 06/28/22 09:00 07/03/22 07:46 Aspirin 81 Mg Ectab PO 07/28/22 08:59 81 mg QAM VICKY Administration Atorvastatin Calcium 40 mg 06/28/22 21:00 07/02/22 20:31 Atorvastatin 40 Mg Tab PO 07/28/22 20:59 40 mg HS VICKY Administration Fluticasone/Vilanterol 1 puffs 06/28/22 09:00 07/03/22 07:45 Fluticasone/Vilanterol 100/25mcg 14 Puffs/Inhaler INH 07/28/22 08:59 1 puffs DAILY VICKY Administration Heparin Sodium (Beef Lung) 5 ml 06/28/22 05:22 07/01/22 20:29 Heparin 10 Unit/Ml 5 Ml Flush FLUSH 07/28/22 05:21 5 ml PRN PRN Administration Flush Piperacillin Sod/Tazobactam 120 mls @ 30 mls/hr 06/28/22 16:00 07/03/22 07:33 Sod 4.5 gm/ Dextrose IV 07/05/22 15:59 Infused Q12H VICKY Infusion Protocol Pantoprazole Sodium 40 mg/ 10 mls @ 5 mls/min 06/30/22 11:00 07/02/22 11:59 Syringe IV 07/30/22 10:59 5 mls/min DAILY@1100 VICKY Administration Insulin Aspart 0 units 06/28/22 04:45 07/03/22 07:51 Insulin Aspart Per Unit Charge SC 07/28/22 04:44 Not Given ACHS VICKY Protocol Insulin Glargine 6 units 07/02/22 09:00 07/02/22 09:02 Lantus Per Unit Charge SQ 08/01/22 08:59 6 units DAILY VICKY Administration Protocol Midodrine 5 mg 06/30/22 08:00 07/03/22 07:45 Midodrine Hcl 2.5 Mg Tab PO 07/30/22 07:59 5 mg TID@0800,1200,1700 VICKY Administration Montelukast Sodium 10 mg 06/28/22 21:00 07/02/22 20:31 Montelukast Sodium 10 Mg Tablet PO 07/28/22 20:59 10 mg HS VICKY Administration Past Medical History Medical History Acute metabolic encephalopathy Acute on chronic diastolic CHF (congestive heart failure) Anemia of chronic disease Arthritis CAD (coronary artery disease) 08/2015- L Cx stent; 11/2017- RCA stent, L Cx stent patent; 07/2019- LM wnl, prox-mid LAD 30%, mid-L Cx stent patent, RCA stent stent with area between stents 30-40%. Sees [facility], Dr Sharad Norton. 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) Repaired s/p PPV, MP, EL (SNT) Dialysis AV fistula malfunction Dialysis AV fistula malfunction Diverticular disease Elevated troponin End-stage renal disease on hemodialysis ESRD (end stage renal disease) on dialysis dialysis sun-sun-sun is getting dialysis sat prior to colonoscopy 09/29/2019 and will have it again after on sunday09/30/2019 GERD (gastroesophageal reflux disease) History of COVID-19 (12/2020) Hyperkalemia Hyperlipidemia Hypertension Moderate pulmonary hypertension Nuclear sclerosis of both eyes Obstructive sleep apnea cpap on 4L N/C On home oxygen therapy 4L N/C at all times Osteoarthritis, hip, bilateral Pleural effusion, bilateral 11/2018 Pneumonia Presence of arteriovenous fistula for hemodialysis left forearm Secondary pulmonary hypertension Status post placement of implantable loop recorder (07/07/21) Vitreous hemorrhage of right eye due to diabetes mellitus (12/04/18) Past Family History Family History Mother Diabetes Coronary heart disease Heart disease Hypertension Stroke Father Diabetes Coronary heart disease Heart disease Myocardial infarction Hypertension Stroke Other Kidney disease No family history of adverse response to anesthesia Denies family history of Ovarian cancer Prostate cancer Breast cancer Lung cancer Colorectal cancer Past Surgical History Surgical History History of cardiac cath X 2 - 11/2017 - [facility] - SOB - 1 stent placed - follows w/ Dr. Zuniga - 2015 [facility] - SOB - 1 stent placed History of colonoscopy History of foot surgery left x 4 History of heart artery stent X2 History of placement of chest tube left lung for pleural effusion 11/2018 History of tooth extraction all teeth S/P arteriovenous (AV) fistula creation 04/2016 Dr. Mena placed S/P AV sera ablation (01/18/22) S/P bilateral cataract extraction (05/2021) S/P cardiac catheterization Dr. Sharad Calvillo at [facility]- 01/09/22 S/P cardiac pacemaker procedure (01/18/22) secondary to symptomatic bradycardia Status post amputation of toe (12/29/21) R 2nd toe d/t infection Status post amputation of toe of right foot (01/27/22) metatarsal resection R toe 2-5 d/t osteomyelitis/gangrene Social History Smoking Status: Former smoker tobacco type: cigars Do You Dip or Chew Tobacco: No Hx Alcohol Use: No Hx Substance Use: No substance use type: does not use Physical Exam Vital Signs Last Vital Signs Temp 36.4 C L 07/03/22 07:21 Pulse 73 07/03/22 07:21 Resp 18 07/03/22 07:21 BP 117/59 L 07/03/22 07:21 Pulse Ox 95 07/03/22 07:21 O2 Del Method Nasal Cannula 07/03/22 07:21 O2 Flow Rate 4 07/03/22 07:21 FiO2 40 07/02/22 06:55 Testing Laboratory Results 07/03/22 06:00 07/03/22 06:00 PT 17.5 Seconds (9.0-12.0) H 06/30/22 04:33 INR 1.6 (0.9-1.1) H 06/30/22 04:33 06/28/22 04:53 Aerobic Blood Culture - Final Blood No growth in Aerobic bottle after 5 days. Anaerobic Blood Culture - Final 06/28/22 04:53 Aerobic Blood Culture - Final Blood No growth in Aerobic bottle after 5 days. Anaerobic Blood Culture - Final 06/28/22 17:16 Gram Stain - Final Foot,Right Wound Culture - Final Corynebacterium species 07/03/22 07/02/22 03:15 20:11 POC Glucose 129 H 140 H Electrocardiogram Date: 06/29/22 biventricular AV paced at 70 - cannot confirm atrial pacing Echocardiogram Date: 05/09/22 EF: 35-40% Valvular Disease: + no significant valvular disease and + (mild) Cardiac Catheterization Date: 04/08/21 Location: unsuccessful attempt at angioplasty of small vessel, med mgmt
--- NOTE | 2022-07-03 08:54 | Hospitalist Progress Note ---
Date of Service July 03, 2022 Assessment & Plan (1) Infection of right foot: Plan: 52 year old patient whofailed therapy with 6 weeks of Ancef. This may have been due to poor coverage of bacteria (prev grew MSSA, GBS) vs vascular issue vs need for better source control. Bone scan shows continued OM and new OM of 1st digit. ID follwing and agree with broad abx coverage with Vancomycin and Zosyn. Believe patient would benefit from amputation for source control given just completed 6 wks abx and ongoing infection, but defer intervention to podiatry on repeat evals ID stated if surgical curative resection unachievable please send for post debridement cultures bacterial, and to pathology - message sent to Dr Rust regarding ID request. Dr Rust stated that he will send cultures regardless Continue Zosyn/Vanc WBC count normal (2) Hypotension: Plan: Hypotensive with increased oxygen requirements and respiratory distress AM 5/4 in setting of developing sepsis likely 2nd to foot infection/recent osteomyelitis. Lactic elevated on admission, improved on repeats CTA negative for PE, remains on eliquis 5mg BID Initially w/ concerns possible presser support in order to pull off fluid last evening with HD, started midodrine TID and additional dose provided prior to HD with successful ability to pull off 3L and did not require pressor support and downgraded to PCU Remains on midodrine 5mg TID, 10mg dose in AM w/ HD and nephro recs for additional dosing/adjustments w/ HD 4L removed today at HD Continue 1200mL fluid restriction, diet advanced to low fiber yesterday, patient tolerating BP stable 106/49 at present and denied any lightheaded/dizziness (Rec STOPPING his home HCTZ given he does not make urine at baseline and prevention of hypotension at discharge) (3) End-stage renal disease on hemodialysis: Plan: ESRD on HD q M/W/. Nephrology following Continued volume overloaded state, overloaded on admission Continue fluid restriction (1200ml) (4) Respiratory distress: Plan: 2nd to sepsis as well as volume overloaded state (CXR on admission w/ pulm congestion, elevated BNP) -- see above Placed on BiPAP 5/4 and overnight HD as outlined above BiPAP HS, consider continued use of such at discharge CTA negative for PE Continue nebs/pulmonary toilet (5) Abdominal distention: Plan: Ascites improved w/ HD GI on consult KUB improving Diet advanced / to low fiber and tolerating NPO currently for surgery (6) Ileus: Plan: resolved, moving bowels diet advanced to low fiber diet, monitor continued bowel movements. Negative C Diff gene Consider reglan if susp for gastroparesis w/ his DM (7) Weakness: Plan: Multifactorial but suspected continued/ongoing sepsis w/ source R foot, volume overload w/ pulm congestion/elevated BNP/increased O2 needs Tx as outlined above, continued abx/hoping for source control Fall precautions in place PT/OT consults and likely need rehab at [facility] (8) Diabetes mellitus type 2, uncontrolled: Plan: Longstanding history of DM, most recent A1c 7.6 Dropped last week in HD, had been given 10u long acting prior to help w/ hyperkalemia prior to HD and pharmacy contacted and adjustments made Patient had been refusing prior insulins but had discussed good wound healing w/ better control and had loosened parameters and he has been agreeable and BSGs better controlled Appreciate pharmacy assistance (9) Cirrhosis of liver with ascites: Plan: With increased abdominal distention since receiving IVF per patient on admit w/ elevated lactic. Abx w/ zosyn for foot should also help to cover Avoiding further IVF, abx for infection Small-mod ascites on US abd prior day in stay, HD as outlined above for UF GI on consult as above (10) PAF (paroxysmal atrial fibrillation): Plan: Regular rhythm on physical exam. EKG ordered -- Vpaced rhythm Continue Amiodarone 200mg po qAM Continue Apixaban 5mg po BID (11) CAD (coronary artery disease): Plan: Patient wiht PCI to RCA in 2017. He had a cardiac catheterization in July 2019 with patent stent. Cardiac catheterization March 2021 with in-stent restenosis of the RCA with severe disease, chronically occluded OM3. No acute intervention. Patient on medical management - has been unable to tolerated beta blockers due to hypotension. He follows with Cardiology - Dr. Norton at [facility]. Continue ASA, Atorvastatin (12) GERD (gastroesophageal reflux disease): Plan: Chronic and stable. Patient on Omeprazole at home Protonix 40mg daily while inpatient (13) Hyperlipidemia: Plan: Chronic and stable Continue Atorvastatin 40mg po qHS (14) Hypertension: Plan: Chronic, had hypotension on admission No antihypertensives as above no amlodipine or HCTZ -- consider dc hctz at dc as above. can verify w/ nephro prior to dc given he doesn't make any urine Plan continued inpatient stay, continue abx, monitor cultures Dr Rust taking patient to OR for wound debridement and wound vac placement and cultures will be obtained Admission and Anticipated Discharge Date Admission Date: June 28, 2022 Supervising Physician Co-Signing Physician Notes PA Supervision Note: I personally saw and examined the patient. I verified all mata points and agree with MARK Gurrola with the following exceptions and/or additions: None. Care of amputation per Podiatric Medicine, continue IV antibiotics. Subjective Patient was seen this afternoon in rounds. He just came back to room from HD. Had 4L off today and states his abdomen continues to feel less distended. He is to go to the OR later today for wound debridement and placement of a wound vac. Review of Systems Review of Systems: complains of abdominal bloating but has improved with HD + fatigue + weakness denies any N/V, chest pain Physical Exam Constitutional: + ill appearing, cooperative and + overweight; no acute distress Neck: trachea midline, no thyromegaly Respiratory: normal respiratory effort, lungs clear to auscultation diminshed breath sounds at bases Cardiovascular: RRR, no murmur, no edema Extremities: no calf tenderness and no edema Musculoskeletal: dressing over right foot Neurologic: PERRL, EOMI, accommodation nl, no face palsy, no dysarthria Psychiatric: A+Ox3, euthymic affect Results & Data Results & Data Vital Signs (Past 12 Hours) Vital Signs Temp Pulse Pulse Pulse Resp BP BP 07/03/22 08:30 79 134/37 L 07/03/22 08:20 70 107/66 07/03/22 08:12 36.4 C L 70 07/03/22 07:21 36.4 C L 73 18 117/59 L 07/03/22 06:55 80 19 07/03/22 00:00 71 07/03/22 03:28 36.1 C L 71 18 117/42 L 07/02/22 23:12 36.5 C 70 18 110/52 L Pulse Ox O2 Del Method O2 Flow Rate 07/03/22 08:30 07/03/22 08:20 07/03/22 08:12 07/03/22 07:21 95 Nasal Cannula 4 07/03/22 06:55 95 Nasal Cannula 4 07/03/22 00:00 07/03/22 03:28 99 CPAP 07/02/22 23:12 98 CPAP Laboratory Results Abnormal lab results 07/02/22 07/02/22 07/03/22 Range/Units 16:26 20:11 03:15 RBC (4.70-6.10) M/uL Hgb (14.0-18.0) g/dl Hct (42.0-52.0) % MCHC (32.0-36.0) g/dL RDW Std Deviation (36.4-46.3) fL RDW Coeff of Octavio (11.5-14.5) % Neut # (Auto) (1.40-6.50) K/uL Lymph # (Auto) (1.2-3.4) K/uL [place] # (Auto) (0.11-0.59) K/uL Sodium (136-145) mmol/L Chloride (98-107) mmol/L Anion Gap (3-11) BUN (6-23) mg/dl Creatinine (0.6-1.4) mg/dl BUN/Creatinine Ratio (10-20) Glucose (70-99(Fasting)) mg/dl POC Glucose 202 H 140 H 129 H (70-99) mg/dl Calcium (8.6-10.3) mg/dl Alkaline Phosphatase (34-104) U/L Albumin (3.4-5.0) gm/dl Albumin/Globulin Ratio (0.9-2) 07/03/22 07/03/22 07/03/22 Range/Units 06:00 06:00 07:27 RBC 3.96 L (4.70-6.10) M/uL Hgb 11.0 L (14.0-18.0) g/dl Hct 35.6 L (42.0-52.0) % MCHC 30.9 L (32.0-36.0) g/dL RDW Std Deviation 63.4 H (36.4-46.3) fL RDW Coeff of Octavio 19.5 H (11.5-14.5) % Neut # (Auto) 6.69 H (1.40-6.50) K/uL Lymph # (Auto) 1.02 L (1.2-3.4) K/uL [place] # (Auto) 0.76 H (0.11-0.59) K/uL Sodium 133 L (136-145) mmol/L Chloride 95 L (98-107) mmol/L Anion Gap 14 H (3-11) BUN 36 H (6-23) mg/dl Creatinine 5.29 H* D (0.6-1.4) mg/dl BUN/Creatinine Ratio 6.8 L (10-20) Glucose 124 H (70-99(Fasting)) mg/dl POC Glucose 126 H (70-99) mg/dl Calcium 7.8 L (8.6-10.3) mg/dl Alkaline Phosphatase 106 H (34-104) U/L Albumin 3.0 L (3.4-5.0) gm/dl Albumin/Globulin Ratio 0.8 L (0.9-2) 07/03/22 Range/Units 12:50 RBC (4.70-6.10) M/uL Hgb (14.0-18.0) g/dl Hct (42.0-52.0) % MCHC (32.0-36.0) g/dL RDW Std Deviation (36.4-46.3) fL RDW Coeff of Octavio (11.5-14.5) % Neut # (Auto) (1.40-6.50) K/uL Lymph # (Auto) (1.2-3.4) K/uL [place] # (Auto) (0.11-0.59) K/uL Sodium (136-145) mmol/L Chloride (98-107) mmol/L Anion Gap (3-11) BUN (6-23) mg/dl Creatinine (0.6-1.4) mg/dl BUN/Creatinine Ratio (10-20) Glucose (70-99(Fasting)) mg/dl POC Glucose 102 H (70-99) mg/dl Calcium (8.6-10.3) mg/dl Alkaline Phosphatase (34-104) U/L Albumin (3.4-5.0) gm/dl Albumin/Globulin Ratio (0.9-2) PG Care Time/CCT Total # of Minutes Spent Total Time Spent with Patient: Total time spent is greater than 50% in coordination of care (as documented) at patient's floor/unit and/or counseling patient: Coding Level of Care Code 37478 SUB INP/OBS CARE 50MIN Diagnoses Infection of right foot L08.9 Hypotension I95.9 End-stage renal disease on hemodialysis N18.6; Z99.2 Respiratory distress R06.03 Abdominal distention R14.0 Ileus K56.7 Weakness R53.1 Diabetes mellitus type 2, uncontrolled E11.65 Glycemic state: with hyperglycemia Cirrhosis of liver with ascites K74.60; R18.8 PAF (paroxysmal atrial fibrillation) I48.0 CAD (coronary artery disease) I25.10 Associated angina: without angina Coronary Disease-Associated Artery/Lesion type: cheesh-na artery [place] vs. transplanted heart: cheesh-na heart GERD (gastroesophageal reflux disease) K21.9 Hyperlipidemia E78.5 Hypertension I10 (8) Diabetes mellitus type 2, uncontrolled Glycemic state: with hyperglycemia Qualified Code(s): E11.65 - Type 2 diabetes mellitus with hyperglycemia (11) CAD (coronary artery disease) Associated angina: without angina Coronary Disease-Associated Artery/Lesion type: cheesh-na artery [place] vs. transplanted heart: cheesh-na heart Qualified Code(s): I25.10 - Atherosclerotic heart disease of cheesh-na coronary artery without angina pectoris
[2022-07-03] MEDS ORDERED: MIDODRINE HCL 10 MG TAB PO ONE (09:00)
--- NOTE | 2022-07-03 09:32 | Pharmacy Report ---
Pharmacy PK ABX Note - Date of Service July 03, 2022 - Assessment and Plan Assessment 52 year old M receiving empiric vancomycin and Zosyn for treatment of right foot osteomyelitis. Pertinent microbiologic data includes: right foot cultures growing group B Strep, MSSA, and Cutibacterium acnes in April 2022 w/ history of Pseudomonas aeruginosa in right foot 12/2021. R foot culture on 06/28 with corynebacterium species, potential contaminant per notes. Patient has T2DM and ESRD requiring HD/patient anuric. ID consulted. Day #6 of antimicrobial therapy. * Leukocytosis resolved, afebrile * Will continue to dose by levels for after dialysis with vancomycin * Plan for OR today for I&D of R foot with wound vac Plan Vancomycin * Pre-HD level ~18 mcg/ml - will dose with 500 mg of vancomycin this afternoon for after dialysis * Plan to reorder next level prior to next HD session / will follow nephrology notes to determine date of next session Zosyn * 4.5 g IV q12h -appropriate for patient on HD Pharmacy will continue to follow and will adjust dose/frequency as necessary. Thank you.
--- NOTE | 2022-07-03 10:06 | Communication Note ---
Date of Service: July 03, 2022 Patient is a 52 yo male with abdominal distention seen by Dr. Sanders of [facility] over the weekend. Abdominal distention is improved clinically/radiographically, but he has what appears to be concerns for possible new diagnosis of cirrhosis. Our office will contact him directly to arrange outpatient follow-up.
--- NOTE | 2022-07-03 10:35 | Nephrology Progress Note ---
Date of Service July 03, 2022 Assessment & Plan (1) End-stage renal disease on hemodialysis: (2) Moderate pulmonary hypertension: (3) Acute osteomyelitis of right foot: (4) Abdominal distention: Plan 52-year-old gentlemen with ESRD on hemodialysis Sunday, Sunday, Sunday, admitted with right foot osteomyelitis. Plan for debridement this afternoon. --HD now, UF as tolerated, had midodrine 10 mg before dialysis, BP stable. --dose medications for EGFR less than 10. -- limit fluid intake to less than 1200 mL per day, follow low-salt diet Admission and Anticipated Discharge Date Admission Date: June 28, 2022 Lanie Davis seen and evaluated this morning during HD. He is overall feeling better, tolerating UF goal of 4 L, abdominal distention improved, tolerating solid food since last night. BP fair. Electrolyte has been acceptable. Review of Systems Review of Systems: Detailed review system was done and the pertinent positives and negatives mentioned above. Physical Exam Constitutional: WD/WN, vitals as above no acute distress Eyes: + anicteric sclerae Neck: normal visual inspection Respiratory: Auscultation: lungs clear to auscultation bilaterally Cardiovascular: Rate/Rhythm: regular rate and regular rhythm Heart Sounds: normal S1 and normal S2 Extremities: + edema Gastrointestinal (Abdomen): Percussion/Palpation: + ascites; abdomen nontender, no guarding and abdomen not rigid Skin: no rashes, warm and dry Neurologic: no focal motor deficits Psychiatric: Orientation: alert and oriented x 3 Results & Data Vital Signs (Past 12 Hours) Vital Signs Temp Pulse Pulse Pulse Resp BP BP 07/03/22 10:00 67 89/32 L 07/03/22 09:30 70 98/46 L 07/03/22 07:30 70 07/03/22 09:00 70 141/54 H 07/03/22 08:30 79 134/37 L 07/03/22 08:20 70 107/66 07/03/22 08:12 36.4 C L 70 07/03/22 07:21 36.4 C L 73 18 117/59 L 07/03/22 06:55 80 19 07/03/22 00:00 71 07/03/22 03:28 36.1 C L 71 18 117/42 L 07/02/22 23:12 36.5 C 70 18 110/52 L Pulse Ox O2 Del Method O2 Flow Rate 07/03/22 10:00 07/03/22 09:30 07/03/22 07:30 07/03/22 09:00 07/03/22 08:30 07/03/22 08:20 07/03/22 08:12 07/03/22 07:21 95 Nasal Cannula 4 07/03/22 06:55 95 Nasal Cannula 4 07/03/22 00:00 07/03/22 03:28 99 CPAP 07/02/22 23:12 98 CPAP PG Care Time/CCT Total # of Minutes Spent Total Time Spent with Patient: Total time spent is greater than 50% in coordination of care (as documented) at patient's floor/unit and/or counseling patient: Coding Level of Care Code 85557 SUB INP/OBS CARE 2/35MIN Diagnoses End-stage renal disease on hemodialysis N18.6; Z99.2 Moderate pulmonary hypertension I27.20 Acute osteomyelitis of right foot M86.171 Abdominal distention R14.0
--- NOTE | 2022-07-03 12:53 | Infectious Disease Progress Nt ---
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 Patient has been admitted on 06/27 with weakness and right foot drainage. Admitted in 04/2022 for right foot osteomyelitis s/p partial excision of 3rd, 4th, 5th metatarsals and excision of R foot wound 05/13/22 Bone scan positive, 05/09 superficial wound cx Group B strep and MSSA, 05/13 OR cx NGTD, completed 6 week therapy with Cefazolin 06/24. Readmitted after fall, hypotension, s/p PICC line removal with continued pain at site. KUB concerning for ileus vs SBP, Surgery consulted. Started on IV Vancomycin/Zosyn. Wound cultures from R foot (superficial) growing Corynebacterium. 06/28 Blood cultures are no growth. Bone scan increased uptake left first toe. This is concerning for osteomyelitis. Also uptake in 3rd/4th MT. Discussion: Patient failed therapy with 6 weeks of treatment. This may be d/t poor coverage of bacteria (prev grew MSSA, GBS) vs vascular issue vs need for better source control. Bone scan shows continued OM and new OM of 1st digit. Agree with broad abx coverage with Vancomycin and Zosyn for now while we await vascular/surgical plan. Suspect Corynebacterium is contaminant vs nonpathogenic bacterium. Recommend C/W Vancomycin C/W Zosyn renally dosed Going to OR today, if surgical curative resection unachievable please send for post debridement cultures bacterial, and to pathology I spoke with primary team this morning. Cathy Gutierrez MD Infectious Diseases [facility] Admission and Anticipated Discharge Date Admission Date: June 28, 2022 Subjective This patient recommendation is based on a telemedicine consult request which was completed asynchronously through chart review and information provided by the primary physician. The patient was not seen or examined today. The evaluation is consultative in nature and all patient care and treatment decisions can either be accepted or rejected by the patient's primary hospital-based treating physician using their own independent medical judgment for their patient. Time Spent Reviewing Chart: 31+ minutes Results & Data Vital Signs (Past 12 Hours) Vital Signs Temp Pulse Pulse Pulse Resp BP BP 07/03/22 12:23 36.5 C 70 129/50 L 07/03/22 12:00 71 117/73 07/03/22 11:30 70 129/72 07/03/22 11:00 70 132/84 07/03/22 10:30 70 128/37 L 07/03/22 10:00 67 89/32 L 07/03/22 09:30 70 98/46 L 07/03/22 07:30 70 07/03/22 09:00 70 141/54 H 07/03/22 08:30 79 134/37 L 07/03/22 08:20 70 107/66 07/03/22 08:12 36.4 C L 70 07/03/22 07:21 36.4 C L 73 18 117/59 L 07/03/22 06:55 80 19 07/03/22 03:28 36.1 C L 71 18 117/42 L Pulse Ox O2 Del Method O2 Flow Rate 07/03/22 12:23 07/03/22 12:00 07/03/22 11:30 07/03/22 11:00 07/03/22 10:30 07/03/22 10:00 07/03/22 09:30 07/03/22 07:30 07/03/22 09:00 07/03/22 08:30 07/03/22 08:20 07/03/22 08:12 07/03/22 07:21 95 Nasal Cannula 4 07/03/22 06:55 95 Nasal Cannula 4 07/03/22 03:28 99 CPAP Laboratory Results Laboratory Results - last 48 hr 07/01/22 07/01/22 07/02/22 16:15 20:40 00:08 WBC RBC Hgb Hct MCV MCH MCHC RDW Std Deviation RDW Coeff of Octavio Plt Count MPV Immature Gran % (Auto) Neut % (Auto) Lymph % (Auto) [place] % (Auto) Eos % (Auto) Baso % (Auto) Neut # (Auto) Lymph # (Auto) [place] # (Auto) Eos # (Auto) Baso # (Auto) Immature Gran # (Auto) Absolute Nucleated RBC Nucleated RBC % (auto) ESR Sodium Potassium Chloride Carbon Dioxide Anion Gap BUN Creatinine Est Cr Clr Drug Dosing Est GFR ( Amer) Est GFR (Non-Af Amer) BUN/Creatinine Ratio Glucose POC Glucose 126 H 214 H 161 H Calcium Phosphorus Magnesium Total Bilirubin AST ALT Alkaline Phosphatase C-Reactive Protein Total Protein Albumin Globulin Albumin/Globulin Ratio Stl C. diff Tox B Gene Random Vancomycin 07/02/22 07/02/22 07/02/22 05:57 05:57 05:57 WBC 9.14 RBC 3.92 L Hgb 10.9 L Hct 36.1 L MCV 92.1 MCH 27.8 MCHC 30.2 L RDW Std Deviation 65.2 H RDW Coeff of Octavio 20.0 H Plt Count 200 MPV 10.4 Immature Gran % (Auto) 0.2 Neut % (Auto) 81.4 Lymph % (Auto) 7.9 [place] % (Auto) 9.0 Eos % (Auto) 0.8 Baso % (Auto) 0.7 Neut # (Auto) 7.45 H Lymph # (Auto) 0.72 L [place] # (Auto) 0.82 H Eos # (Auto) 0.07 Baso # (Auto) 0.06 Immature Gran # (Auto) 0.02 Absolute Nucleated RBC 0.02 Nucleated RBC % (auto) 0.2 ESR 73 H Sodium 136 Potassium 4.3 Chloride 97 L Carbon Dioxide 27 Anion Gap 12 H BUN 26 H Creatinine 4.25 H D Est Cr Clr Drug Dosing 22.7 Est GFR ( Amer) 17.1 Est GFR (Non-Af Amer) 14.8 BUN/Creatinine Ratio 6.1 L Glucose 153 H POC Glucose Calcium 8.1 L Phosphorus 5.6 H Magnesium 2.0 Total Bilirubin AST ALT Alkaline Phosphatase C-Reactive Protein 9.56 H Total Protein Albumin Globulin Albumin/Globulin Ratio Stl C. diff Tox B Gene Random Vancomycin 07/02/22 07/02/22 07/02/22 07:12 11:16 12:30 WBC RBC Hgb Hct MCV MCH MCHC RDW Std Deviation RDW Coeff of Octavio Plt Count MPV Immature Gran % (Auto) Neut % (Auto) Lymph % (Auto) [place] % (Auto) Eos % (Auto) Baso % (Auto) Neut # (Auto) Lymph # (Auto) [place] # (Auto) Eos # (Auto) Baso # (Auto) Immature Gran # (Auto) Absolute Nucleated RBC Nucleated RBC % (auto) ESR Sodium Potassium Chloride Carbon Dioxide Anion Gap BUN Creatinine Est Cr Clr Drug Dosing Est GFR ( Amer) Est GFR (Non-Af Amer) BUN/Creatinine Ratio Glucose POC Glucose 146 H 227 H Calcium Phosphorus Magnesium Total Bilirubin AST ALT Alkaline Phosphatase C-Reactive Protein Total Protein Albumin Globulin Albumin/Globulin Ratio Stl C. diff Tox B Gene Negative Cdiff Gene Random Vancomycin 07/02/22 07/02/22 07/03/22 16:26 20:11 03:15 WBC RBC Hgb Hct MCV MCH MCHC RDW Std Deviation RDW Coeff of Octavio Plt Count MPV Immature Gran % (Auto) Neut % (Auto) Lymph % (Auto) [place] % (Auto) Eos % (Auto) Baso % (Auto) Neut # (Auto) Lymph # (Auto) [place] # (Auto) Eos # (Auto) Baso # (Auto) Immature Gran # (Auto) Absolute Nucleated RBC Nucleated RBC % (auto) ESR Sodium Potassium Chloride Carbon Dioxide Anion Gap BUN Creatinine Est Cr Clr Drug Dosing Est GFR ( Amer) Est GFR (Non-Af Amer) BUN/Creatinine Ratio Glucose POC Glucose 202 H 140 H 129 H Calcium Phosphorus Magnesium Total Bilirubin AST ALT Alkaline Phosphatase C-Reactive Protein Total Protein Albumin Globulin Albumin/Globulin Ratio Stl C. diff Tox B Gene Random Vancomycin 07/03/22 07/03/22 07/03/22 06:00 06:00 06:00 WBC 8.67 RBC 3.96 L Hgb 11.0 L Hct 35.6 L MCV 89.9 MCH 27.8 MCHC 30.9 L RDW Std Deviation 63.4 H RDW Coeff of Octavio 19.5 H Plt Count 199 MPV 10.8 Immature Gran % (Auto) 0.3 Neut % (Auto) 77.1 Lymph % (Auto) 11.8 [place] % (Auto) 8.8 Eos % (Auto) 1.3 Baso % (Auto) 0.7 Neut # (Auto) 6.69 H Lymph # (Auto) 1.02 L [place] # (Auto) 0.76 H Eos # (Auto) 0.11 Baso # (Auto) 0.06 Immature Gran # (Auto) 0.03 Absolute Nucleated RBC 0.03 Nucleated RBC % (auto) 0.3 ESR Sodium 133 L Potassium 4.3 Chloride 95 L Carbon Dioxide 24 Anion Gap 14 H BUN 36 H Creatinine 5.29 H* D Est Cr Clr Drug Dosing 18.4 Est GFR ( Amer) 13.1 Est GFR (Non-Af Amer) 11.3 BUN/Creatinine Ratio 6.8 L Glucose 124 H POC Glucose Calcium 7.8 L Phosphorus Magnesium 1.9 Total Bilirubin 0.7 AST 20 ALT 7 Alkaline Phosphatase 106 H C-Reactive Protein Total Protein 6.6 Albumin 3.0 L Globulin 3.6 Albumin/Globulin Ratio 0.8 L Stl C. diff Tox B Gene Random Vancomycin 18.5 07/03/22 07:27 WBC RBC Hgb Hct MCV MCH MCHC RDW Std Deviation RDW Coeff of Octavio Plt Count MPV Immature Gran % (Auto) Neut % (Auto) Lymph % (Auto) [place] % (Auto) Eos % (Auto) Baso % (Auto) Neut # (Auto) Lymph # (Auto) [place] # (Auto) Eos # (Auto) Baso # (Auto) Immature Gran # (Auto) Absolute Nucleated RBC Nucleated RBC % (auto) ESR Sodium Potassium Chloride Carbon Dioxide Anion Gap BUN Creatinine Est Cr Clr Drug Dosing Est GFR ( Amer) Est GFR (Non-Af Amer) BUN/Creatinine Ratio Glucose POC Glucose 126 H Calcium Phosphorus Magnesium Total Bilirubin AST ALT Alkaline Phosphatase C-Reactive Protein Total Protein Albumin Globulin Albumin/Globulin Ratio Stl C. diff Tox B Gene Random Vancomycin Microbiology 06/28/22 04:53 Blood Aerobic Blood Culture - Final No growth in Aerobic bottle after 5 days. 06/28/22 04:53 Blood Anaerobic Blood Culture - Final 06/28/22 04:53 Blood Aerobic Blood Culture - Final No growth in Aerobic bottle after 5 days. 06/28/22 04:53 Blood Anaerobic Blood Culture - Final 06/28/22 17:16 Foot,Right Gram Stain - Final 06/28/22 17:16 Foot,Right Wound Culture - Final Corynebacterium species
[2022-07-03] MEDS: PANTOprazole 40 MG in SYRINGE 0 ML IV SCH (13:02)
[2022-07-03] MEDS ORDERED: fentaNYL citrate PF 100 MCG/2 ML VIAL ONE (15:19)
[2022-07-03] MEDS ORDERED: MIDAZOLAM HCL 1 MG/ML 2ML VIAL ONE (15:19)
[2022-07-03] MEDS ORDERED: LIDOCAINE 2% 2 ML VIAL/AMP(20MG/ML) INFIL ONE (15:25)
[2022-07-03] MEDS ORDERED: ONDANSETRON INJ 2 MG/ML 2 ML VIAL ONE (15:25)
[2022-07-03] MEDS ORDERED: PROPOFOL IV EMULSION 10 MG/ML 20 ML VIAL IV ONE ×2 (15:25→16:30)
[2022-07-03] MEDS ORDERED: DEXAMETHASONE SOD INJ 4 MG/ML VIAL ONE (15:25)
[2022-07-03] MEDS ORDERED: BUPIVACAINE 0.5 % 5 MG/1 ML MPF 30ML VIAL ONE (15:44)
--- NOTE | 2022-07-03 15:53 | History & Physical Bridge Note ---
Date of Service July 03, 2022 History & Physical Bridge Note I have examined the patient, reviewed the History & Physical and in the interval since the performance of the History & Physical I have noted the following changes of clinical significance: no changes noted
[2022-07-03] MEDS ORDERED: VANCOMYCIN HCL 500 MG in DEXTROSE 5% 100 ML IV ONE (16:00)
[2022-07-03] MEDS ORDERED: ePHEDrine sulfate 50 MG/ML AMP IV PRN (16:00)
[2022-07-03] MEDS ORDERED: fentaNYL citrate PF 100 MCG/2 ML VIAL IV PRN (16:00)
[2022-07-03] MEDS ORDERED: ONDANSETRON INJ 2 MG/ML 2 ML VIAL IV PRN (16:00)
[2022-07-03] MEDS ORDERED: ATROPINE SULFATE 0.1 MG/ML 10ML SYR IV PRN (16:00)
[2022-07-03] MEDS ORDERED: KETAMINE 50 MG/5 ML SYRINGE ONE (16:14)
--- NOTE | 2022-07-03 17:30 | Post Operative Brief Note ---
Immediate Post Op Note v1 Date of Surgery July 03, 2022 Pre & Post Diagnosis Operation Date: 07/03/22 09:40 Pre-Op Diagnosis: right foot infection Post-Op Diagnosis: right foot infection I identified the patient and participated in the time-out.: Yes Procedure Operation Date: 07/03/22 09:40 Actual Procedures p Right Foot Debridement with Application of Wound Vac(Right) - Edilson Rust DPM, MS Surgeon Edilson Rust DPM, MS Ic Designer Standard Cells None Estimated Blood Loss 5 Findings Consistent with Post-Op Diagnosis
[2022-07-03] MEDS: ATORVASTATIN 40 MG TAB PO SCH (19:43)
[2022-07-03] MEDS: MONTELUKAST SODIUM 10 MG TABLET PO SCH (19:43)
--- NOTE | 2022-07-03 19:55 | Anesthesiology Progress Note ---
Date of Service July 03, 2022 Anesthesia Post Procedure Vital Signs Vital Signs: Temp Pulse Pulse Pulse Pulse Resp BP 07/03/22 19:15 36.8 C 70 17 07/03/22 18:23 36.0 C L 69 16 07/03/22 17:45 70 13 07/03/22 17:55 36.5 C 70 13 07/03/22 17:35 70 21 07/03/22 17:27 36.1 C L 65 21 07/03/22 15:30 36.4 C L 17 07/03/22 15:30 70 07/03/22 15:02 71 18 07/03/22 12:54 36.4 C L 71 16 07/03/22 12:23 36.5 C 70 07/03/22 12:00 71 117/73 07/03/22 11:30 70 129/72 07/03/22 11:00 70 132/84 07/03/22 10:30 70 128/37 L 07/03/22 10:00 67 89/32 L 07/03/22 09:30 70 98/46 L 07/03/22 07:30 70 07/03/22 09:00 70 141/54 H 07/03/22 08:30 79 134/37 L 07/03/22 08:20 70 107/66 07/03/22 08:12 36.4 C L 70 07/03/22 07:21 36.4 C L 73 18 07/03/22 06:55 80 19 07/03/22 00:00 71 07/03/22 03:28 36.1 C L 71 18 07/02/22 23:12 36.5 C 70 18 07/02/22 20:19 18 BP Pulse Ox O2 Del Method O2 Flow Rate 07/03/22 19:15 147/76 H 99 Nasal Cannula 6 07/03/22 18:23 135/85 100 Nasal Cannula 6 07/03/22 17:45 105/36 L 100 Nasal Cannula 6 07/03/22 17:55 114/53 L 92 Nasal Cannula 5 07/03/22 17:35 114/62 99 Oxymask 8 07/03/22 17:27 102/51 L 94 Oxymask 8 07/03/22 15:30 112/49 L 100 Nasal Cannula 4 07/03/22 15:30 07/03/22 15:02 98 Nasal Cannula 4 07/03/22 12:54 106/49 L 100 Room Air 07/03/22 12:23 129/50 L 07/03/22 12:00 07/03/22 11:30 07/03/22 11:00 07/03/22 10:30 07/03/22 10:00 07/03/22 09:30 07/03/22 07:30 07/03/22 09:00 07/03/22 08:30 07/03/22 08:20 07/03/22 08:12 07/03/22 07:21 117/59 L 95 Nasal Cannula 4 07/03/22 06:55 95 Nasal Cannula 4 07/03/22 00:00 07/03/22 03:28 117/42 L 99 CPAP 07/02/22 23:12 110/52 L 98 CPAP 07/02/22 20:19 96 Nasal Cannula 4 Pain Intensity Generalized: Pain Intensity: 0 Transfer of Care Handoff Completed per policy Notes Mental Status: alert / awake / arousable and participated in evaluation Patient Amnestic to Procedure: Yes Nausea / Vomiting: adequately controlled Pain: adequately controlled Airway Patency, RR, SpO2: stable & adequate BP & HR: stable & adequate Hydration State: stable & adequate Anesthetic Complications: no major complications apparent and Pt Satisfied with anesthetic care
[2022-07-03] MEDS ORDERED: diphenhydrAMINE Capsule 25 MG CAP PO ONE (20:38)
--- NOTE | 2022-07-03 21:01 | Operative Report ---
Post Operative Report Pre & Post Diagnosis Operation Date: 07/03/22 09:40 Pre-Op Diagnosis: right foot infection Post-Op Diagnosis: right foot infection I identified the patient and participated in the time-out.: Yes Procedure Operation Date: 07/03/22 09:40 Actual Procedures p Right Foot Debridement with Application of Wound Vac(Right) - Edilson Rust DPM, MS Surgeon Edilson Rust DPM, MS Sales Support Engineer None Estimated Blood Loss 5 Findings Consistent with Post-Op Diagnosis n/a Specimens Right fourth and fifth metatarsals Pathology and micro Description of Procedure History of present illness: Patient is a type II diabetic, 52 year oldmalewho recently underwent 3 phase bone showing concern for osteomyelitis of right foot. Patient is seen for operative care including removal of non viable bone and soft tissue to right foot, wound debridement right, application of wound vac r ight foot. All questions answered.Discussed procedure in detail and postoperative recovery. All potential risks, benefits, complications, alternatives, rehab, potential for incomplete relief of symptoms, need for further surgery, DVT, PE, , persistent pain, swelling, scarring, weakness, neurovascular, wound complications and potential for amputations were discussed with patient. Unwanted outcomes such as, but not limited to were reviewed including under correction, overcorrection, return of deformity, infection. All questions were answered. Patient has decided to proceed with procedure as indicated. Preoperative diagnosis: 1.) Diabetic ulcers with necrotic tissue right foot 2.) Osteomyelitis right fourth and fifth metatarsals Postoperative diagnosis: same Name of operation: 1.) Wound debridement Right foot 2.) Excision of Right foot wound 3.) Partial excision of fourth and fifth metatarsalRight foot 4.) Application of wound Vac negative pressure therapy Right foot Surgeon: Dr. Rust Sales Support Engineer: None Anesthesia: Monitored anesthesia care Hemostasis: pneumatic ankle tourniquet Estimated blood loss: minimal Procedure in detail: Under mild sedation the patient was brought in the operating room placed on the operating table in supine position. A pneumatic calf tourniquet was then placed about the patient's right calf. Following IV sedation the foot was prepped scrubbed and draped in usual aseptic manner. An Esmarch bandage was utilized to exsanguinate the patient's right foot and the pneumatic ankle tourniquet was then inflated. At this time attention is directed to the distal lateral diabetic foot ulcer of the right foot. The wound measures 2 x 1.5 x 2cm and probes to a dorsal communicating diabetic foot ulcer over the third metatarsal phalangeal joint. Utilizing a sharp, sterile, #15 blade non viable tissue was excised including muscle and tendon. The versa jet was also utilized. Attention was then directed to the communicating wound over third metatarsal phalangeal joint. This wound measures 3 x 0.7 x 2 cm. Utilizing a sharp, sterile, #15 blade the wound was excised and closed primarily utilizing 3-0 nylon. At this time attention is directed to the lateral proximal wound over the fifth and fourth metatarsal bases where diagnostic imaging showed osteomyelitis of both the fourth and fifth metatarsal. Utilizing a sharp, sterile, #15 blade all non viable tissue at the wound base was removed down to and including muscle and tendon. The dissection was then deepened using sharp blunt dissection. All bleeders were ligated and cauterized necessary. The osteomyelitic fourth and fifth metatarsal bone was excised with rongeur. The fourth and fifth metatarsal bone was placed on the back table and labeled. A portion of excised right fourth and fifth metatarsal was then placed in formalin.The remaining portions were sent to microbiology. 1 L of lactated Ringer was then irrigated with low flow into the wounds.At this time negative pressure therapy was applied with wound vac to the proximal lateral diabetic foot wound. The vac was placed on 125mmHg continuous. The wounds were dressed with compressive dressing consisting of 4 x 4's Cole Kerlix ABD. The pneumatic calf tourniquet was deflated and a prompt hyperemic response was noted to remaining digits of the right foot. The Patient tolerated the procedure and anesthesia well. He was transferred to recovery room vital signs stable and vascular status intact all toes of the right foot following. Following a period of postoperative monitoring the patient will be readmitted to floor with the continuation of all preoperative orders. I attest to the content of the Intraoperative Record and any orders documented therein. Any exceptions are noted below.
[2022-07-04] MEDS: PIPERACILLIN/TAZOBACTAM 4.5 GM CI (over 4 hours) IV SCH ×2 (03:47→15:57)
[2022-07-04 06:40] LABS: Hemoglobin 11.1 g/dl (14.0-18.0); Mean Corpuscular Hemoglobin 27.5 pg (25.0-34.0); Mean Corpuscular Volume 91.8 fL (80.0-100.0); Nucleated RBC # (auto) 0.02 K/uL (0-0.12); Nucleated RBC % (auto) 0.2 %; Platelet Count 232 K/uL (130-400); RDW Coefficient of Variation 19.5 % (11.5-14.5); RDW Standard Deviation 63.7 fL (36.4-46.3); Red Blood Count 4.03 M/uL (4.70-6.10); White Blood Count 8.73 K/ul (4.8-10.8)
[2022-07-04] MEDS: ALBUT/IPRATROP 3MG/0.5MG NEB 3 ML VIAL NEB SCH ×4 (06:49→19:29)
[2022-07-04 07:07] LABS: BUN Creatinine Ratio 6.4 (10-20); Calcium 7.8 mg/dl (8.6-10.3); Creatinine Clr Calc Pharmacy 20.8 ml/min; Est GFR (African American) 15.3 ml/min; Est GFR (Non-African American) 13.2 ml/min; Potassium 4.8 mmol/L (3.5-5.1)
--- NOTE | 2022-07-04 07:38 | Infectious Disease Progress Nt ---
Date of Service July 04, 2022 Assessment & Plan (1) Hypotension: Plan # R foot osteomyelitis 1st toe, #3rd, 4th #Ileus #ESRD #Cirrhosis 51 yo M with h/o ESRD on HD via LaVF with recent malfunction, CAD s/p stent placement, Afib s/p AV sera ablation and BiV PPM 01/17, Poor candidate for longer AC, DM, PPVD s/p R 2nd toe amputation 12/29/21, R foot 2-5 metatarsal resection 01/27/22 with multiple excisional debridements since, recent COVID infection, home oxygen 4L d/t restrictive lung disease, recently admitted for acute osteomyelitis of right foot with GBS and MSSA as well as GBS bacteremia s/p cefazolin x 6 weeks through 06/24/22. Patient has been admitted on 06/27 with weakness and right foot drainage. Admitted in 04/2022 for right foot osteomyelitis s/p partial excision of 3rd, 4th, 5th metatarsals and excision of R foot wound 05/13/22 Bone scan positive, 05/09 superficial wound cx Group B strep and MSSA, 05/13 OR cx NGTD, completed 6 week therapy with Cefazolin 06/24. Readmitted after fall, hypotension, s/p PICC line removal with continued pain at site. KUB concerning for ileus vs SBP, Surgery consulted. Started on IV Vancomycin/Zosyn. Wound cultures from R foot (superficial) growing Corynebacterium. 06/28 Blood cultures are no growth. Bone scan increased uptake left first toe. This is concerning for osteomyelitis. Also uptake in 3rd/4th MT. 07/03 partial excision of 4th and 5th MT and wound debridement with application of wound vac Discussion: Patient failed therapy with 6 weeks of treatment. This may be d/t poor coverage of bacteria (prev grew MSSA, GBS) vs vascular issue vs need for better source control. Bone scan shows continued OM and new OM of 1st digit. Agree with broad abx coverage with Vancomycin and Zosyn now he is s/p OR on 07/03. Will await cultures. superificial cultures grew Corynebacterium is contaminant vs nonpathogenic bacterium. Recommend C/W Vancomycin C/W Zosyn renally dosed Await micro post debridement cultures bacterial, and pathology I spoke with primary team. Cathy Gutierrez MD Infectious Diseases [facility] Admission and Anticipated Discharge Date Admission Date: June 28, 2022 Subjective This patient recommendation is based on a telemedicine consult request which was completed asynchronously through chart review and information provided by the primary physician. The patient was not seen or examined today. The evaluation is consultative in nature and all patient care and treatment decisions can either be accepted or rejected by the patient's primary hospital-based treating physician using their own independent medical judgment for their patient. Time Spent Reviewing Chart: 21 - 30 minutes 24 hours: POD #1 s/p partial excision of 4th and 5th MT and wound debridement with application of wound vac Results & Data Vital Signs (Past 12 Hours) Vital Signs Temp Pulse Resp BP Pulse Ox O2 Del Method O2 Flow Rate 07/04/22 06:50 57 L 18 94 Nasal Cannula 4 07/04/22 02:49 36.4 C L 70 19 103/60 97 CPAP 07/03/22 22:46 36.4 C L 70 17 105/65 96 CPAP 07/03/22 20:00 Room Air Laboratory Results Laboratory Results - last 48 hr 07/02/22 07/02/22 07/02/22 11:16 12:30 16:26 WBC RBC Hgb Hct MCV MCH MCHC RDW Std Deviation RDW Coeff of Octavio Plt Count MPV Immature Gran % (Auto) Neut % (Auto) Lymph % (Auto) [place] % (Auto) Eos % (Auto) Baso % (Auto) Neut # (Auto) Lymph # (Auto) [place] # (Auto) Eos # (Auto) Baso # (Auto) Immature Gran # (Auto) Absolute Nucleated RBC Nucleated RBC % (auto) Sodium Potassium Chloride Carbon Dioxide Anion Gap BUN Creatinine Est Cr Clr Drug Dosing Est GFR ( Amer) Est GFR (Non-Af Amer) BUN/Creatinine Ratio Glucose POC Glucose 227 H 202 H Calcium Magnesium Total Bilirubin AST ALT Alkaline Phosphatase Total Protein Albumin Globulin Albumin/Globulin Ratio Stl C. diff Tox B Gene Negative Cdiff Gene Random Vancomycin 07/02/22 07/03/22 07/03/22 20:11 03:15 06:00 WBC 8.67 RBC 3.96 L Hgb 11.0 L Hct 35.6 L MCV 89.9 MCH 27.8 MCHC 30.9 L RDW Std Deviation 63.4 H RDW Coeff of Octavio 19.5 H Plt Count 199 MPV 10.8 Immature Gran % (Auto) 0.3 Neut % (Auto) 77.1 Lymph % (Auto) 11.8 [place] % (Auto) 8.8 Eos % (Auto) 1.3 Baso % (Auto) 0.7 Neut # (Auto) 6.69 H Lymph # (Auto) 1.02 L [place] # (Auto) 0.76 H Eos # (Auto) 0.11 Baso # (Auto) 0.06 Immature Gran # (Auto) 0.03 Absolute Nucleated RBC 0.03 Nucleated RBC % (auto) 0.3 Sodium Potassium Chloride Carbon Dioxide Anion Gap BUN Creatinine Est Cr Clr Drug Dosing Est GFR ( Amer) Est GFR (Non-Af Amer) BUN/Creatinine Ratio Glucose POC Glucose 140 H 129 H Calcium Magnesium Total Bilirubin AST ALT Alkaline Phosphatase Total Protein Albumin Globulin Albumin/Globulin Ratio Stl C. diff Tox B Gene Random Vancomycin 07/03/22 07/03/22 07/03/22 06:00 06:00 07:27 WBC RBC Hgb Hct MCV MCH MCHC RDW Std Deviation RDW Coeff of Octavio Plt Count MPV Immature Gran % (Auto) Neut % (Auto) Lymph % (Auto) [place] % (Auto) Eos % (Auto) Baso % (Auto) Neut # (Auto) Lymph # (Auto) [place] # (Auto) Eos # (Auto) Baso # (Auto) Immature Gran # (Auto) Absolute Nucleated RBC Nucleated RBC % (auto) Sodium 133 L Potassium 4.3 Chloride 95 L Carbon Dioxide 24 Anion Gap 14 H BUN 36 H Creatinine 5.29 H* D Est Cr Clr Drug Dosing 18.4 Est GFR ( Amer) 13.1 Est GFR (Non-Af Amer) 11.3 BUN/Creatinine Ratio 6.8 L Glucose 124 H POC Glucose 126 H Calcium 7.8 L Magnesium 1.9 Total Bilirubin 0.7 AST 20 ALT 7 Alkaline Phosphatase 106 H Total Protein 6.6 Albumin 3.0 L Globulin 3.6 Albumin/Globulin Ratio 0.8 L Stl C. diff Tox B Gene Random Vancomycin 18.5 07/03/22 07/03/22 07/03/22 12:50 17:30 18:36 WBC RBC Hgb Hct MCV MCH MCHC RDW Std Deviation RDW Coeff of Octavio Plt Count MPV Immature Gran % (Auto) Neut % (Auto) Lymph % (Auto) [place] % (Auto) Eos % (Auto) Baso % (Auto) Neut # (Auto) Lymph # (Auto) [place] # (Auto) Eos # (Auto) Baso # (Auto) Immature Gran # (Auto) Absolute Nucleated RBC Nucleated RBC % (auto) Sodium Potassium Chloride Carbon Dioxide Anion Gap BUN Creatinine Est Cr Clr Drug Dosing Est GFR ( Amer) Est GFR (Non-Af Amer) BUN/Creatinine Ratio Glucose POC Glucose 102 H 116 H 134 H Calcium Magnesium Total Bilirubin AST ALT Alkaline Phosphatase Total Protein Albumin Globulin Albumin/Globulin Ratio Stl C. diff Tox B Gene Random Vancomycin 07/04/22 07/04/22 07/04/22 06:19 06:19 07:14 WBC 8.73 RBC 4.03 L Hgb 11.1 L Hct 37.0 L MCV 91.8 MCH 27.5 MCHC 30.0 L RDW Std Deviation 63.7 H RDW Coeff of Octavio 19.5 H Plt Count 232 MPV 11.0 Immature Gran % (Auto) Neut % (Auto) Lymph % (Auto) [place] % (Auto) Eos % (Auto) Baso % (Auto) Neut # (Auto) Lymph # (Auto) [place] # (Auto) Eos # (Auto) Baso # (Auto) Immature Gran # (Auto) Absolute Nucleated RBC 0.02 Nucleated RBC % (auto) 0.2 Sodium 133 L Potassium 4.8 Chloride 92 L Carbon Dioxide 25 Anion Gap 16 H BUN 30 H Creatinine 4.67 H* D Est Cr Clr Drug Dosing 20.8 Est GFR ( Amer) 15.3 Est GFR (Non-Af Amer) 13.2 BUN/Creatinine Ratio 6.4 L Glucose 310 H* POC Glucose 298 H Calcium 7.8 L Magnesium Total Bilirubin AST ALT Alkaline Phosphatase Total Protein Albumin Globulin Albumin/Globulin Ratio Stl C. diff Tox B Gene Random Vancomycin Microbiology 07/03/22 Unknown Toe,Right Fifth Gram Stain - Final 06/28/22 04:53 Blood Aerobic Blood Culture - Final No growth in Aerobic bottle after 5 days. 06/28/22 04:53 Blood Anaerobic Blood Culture - Final 06/28/22 04:53 Blood Aerobic Blood Culture - Final No growth in Aerobic bottle after 5 days. 06/28/22 04:53 Blood Anaerobic Blood Culture - Final 06/28/22 17:16 Foot,Right Gram Stain - Final 06/28/22 17:16 Foot,Right Wound Culture - Final Corynebacterium species Medications Administered Current Inpatient Medications Acetaminophen (Acetaminophen 325 Mg Tab) 650 mg PO Q4H PRN PRN Reason: Pain or Fever Stop: 07/28/22 04:07 Albuterol (Albuterol Hfa 8 Gm Inhaler) 2 puffs INH Q6H PRN PRN Reason: shortness of breath or wheezing Stop: 07/28/22 04:23 Last Admin: 06/28/22 05:44 Dose: 2 puffs Albuterol (Albut/Ipratrop 3mg/0.5mg Neb 3 Ml Vial) 3 ml NEB QIDR VICKY; Protocol Stop: 07/28/22 18:59 Last Admin: 07/04/22 06:49 Dose: 3 ml Albuterol (Albut/Ipratrop 3mg/0.5mg Neb 3 Ml Vial) 3 ml NEB Q2H PRN; Protocol PRN Reason: SOB/WHEEZING Stop: 07/28/22 15:13 Last Admin: 06/28/22 23:30 Dose: 3 ml Amiodarone HCl (Amiodarone 200 Mg Tab) 200 mg PO QAM [facility] Stop: 07/28/22 08:59 Last Admin: 07/03/22 07:45 Dose: 200 mg Aspirin (Aspirin 81 Mg Ectab) 81 mg PO QAM [facility] Stop: 07/28/22 08:59 Last Admin: 07/03/22 07:46 Dose: 81 mg Atorvastatin Calcium (Atorvastatin 40 Mg Tab) 40 mg PO HS [facility] Stop: 07/28/22 20:59 Last Admin: 07/03/22 19:43 Dose: 40 mg Dextrose (Dextrose 50% 50 Ml Syringe) 25 - 50 ml IV UD PRN; Protocol PRN Reason: Hypoglycemia Protocol Stop: 07/28/22 04:25 Docusate Sodium (Docusate Sodium 100 Mg Cap) 100 mg PO BID PRN PRN Reason: Constipation Stop: 07/28/22 04:07 Fluticasone/Vilanterol (Fluticasone/Vilanterol 100/25mcg 14 Puffs/Inhaler) 1 puffs INH DAILY [facility] Stop: 07/28/22 08:59 Last Admin: 07/03/22 07:45 Dose: 1 puffs Glucagon (Glucagon For Inj 1 Mg Vial) 1 mg SQ UD PRN; Protocol PRN Reason: Hypoglycemia Protocol Stop: 07/28/22 04:25 Glucose (Glucose 10 Tab/Tube) 4 - 8 tab PO UD PRN; Protocol PRN Reason: Hypoglycemia Treatment Stop: 07/28/22 04:25 Glucose (Glucose 40% Gel 15 Gm Tube) 15 - 30 gm PO UD PRN; Protocol PRN Reason: Hypoglycemia Protocol Stop: 07/28/22 04:25 Heparin Sodium (Beef Lung) (Heparin 10 Unit/Ml 5 Ml Flush) 5 ml FLUSH PRN PRN PRN Reason: Flush Stop: 07/28/22 05:21 Last Admin: 07/01/22 20:29 Dose: 5 ml Hydrocortisone (Hydrocortisone 1% Crm 30 Gm Tube) 1 appln EXT BID PRN PRN Reason: itching Stop: 08/01/22 09:23 Piperacillin Sod/Tazobactam (Sod 4.5 gm/ Dextrose) 120 mls @ 30 mls/hr IV Q12H [facility]; Protocol Stop: 07/05/22 15:59 Last Admin: 07/04/22 03:47 Dose: 30 mls/hr Pantoprazole Sodium 40 mg/ (Syringe) 10 mls @ 5 mls/min IV DAILY@1100 VICKY Stop: 07/30/22 10:59 Last Admin: 07/03/22 13:02 Dose: 5 mls/min Insulin Aspart (Insulin Aspart Per Unit Charge) 0 units SC ACHS [facility]; Protocol Stop: 07/28/22 04:44 Last Admin: 07/03/22 20:58 Dose: Not Given Insulin Glargine (Lantus Per Unit Charge) 6 units SQ DAILY [facility]; Protocol Stop: 08/01/22 08:59 Last Admin: 07/02/22 09:02 Dose: 6 units Midodrine (Midodrine Hcl 2.5 Mg Tab) 5 mg PO TID@0800,1200,1700 [facility] Stop: 07/30/22 07:59 Last Admin: 07/03/22 18:38 Dose: 5 mg Miscellaneous (Carbohydrates For Hypoglycemia ) 15 - 30 gm PO UD PRN PRN Reason: Hypoglycemia Protocol Stop: 07/28/22 04:25 Miscellaneous Information (Pharmacy Glycemic Mgmt Consult) 1 each N/A UD PRN; Protocol PRN Reason: Consult Stop: 07/28/22 04:28 Miscellaneous Information (Vancomycin Consult Active) 1 each N/A UD PRN PRN Reason: Consult Stop: 07/28/22 14:37 Montelukast Sodium (Montelukast Sodium 10 Mg Tablet) 10 mg PO HS [facility]ICKY Stop: 07/28/22 20:59 Last Admin: 07/03/22 19:43 Dose: 10 mg Ondansetron HCl (Ondansetron Inj 2 Mg/Ml 2 Ml Vial) 4 mg IV Q6H PRN PRN Reason: Nausea And Vomiting Stop: 07/28/22 04:07 Polyethylene Glycol (Polyethylene (Miralax) 17 Gm Pack) 17 gm PO DAILY PRN PRN Reason: Constipation Stop: 07/28/22 04:07
[2022-07-04] MEDS: MIDODRINE HCL 2.5 MG TAB PO SCH ×3 (08:04→16:34)
[2022-07-04] MEDS: AMIODARONE 200 MG TAB PO SCH (08:05)
[2022-07-04] MEDS: INSULIN ASPART PER UNIT CHARGE SC SCH ×4 (08:05→19:56)
[2022-07-04] MEDS: ASPIRIN 81 MG ECTAB PO SCH (08:07)
[2022-07-04] MEDS ORDERED: LANTUS PER UNIT CHARGE SQ SCH (09:00)
--- NOTE | 2022-07-04 09:36 | Hospitalist Progress Note ---
Date of Service July 04, 2022 Assessment & Plan (1) Infection of right foot: Plan: In patient w/ diabetes, Hx osteomyelitis of right root, and recent admission for Group B streptococcus bacteremia and had partial excision 3/4/5th metatarsals and excision right foot wount w/ Dr Rust on 05/13 I was concerned about ongoing infection/osteomyelitis given appearance of his right foot/toes given he had completed 6 wks Ancef, last date 06/24 and reported continued drainage at home Surface cx obtained other night for drainage to see if able to provide assistance. discussed w/ ID and likely noncontributory Podiatry on consult, wanted bone scan Impression: * 1.Interval development of abnormal 3 phase radiotracer uptake within the left first toe. This is concerning for osteomyelitis. * 2. Persistent abnormal 3 phase radiotracer uptake within the right third and fourth metatarsals. This is similar to the prior study. This may also represent osteomyelitis. Continue Zosyn/Vanc Podiatry consulted, s/p partial excision of 4th and 5th metatarsals, wound debridement with application of wound vac with Dr Rust 07/03/[address] Rust there is no clinical evidence of OM in the 1st toe and no treatment planned. ID Dr Gutierrez following and agree to continue current abx regimen at this time Believed patient would benefit from amputation for source control given just completed 6 wks abx and ongoing infection, but defer intervention to podiatry on repeat evals WBC continued improvement. Remains afebrile. Blood cultures remain NGTD Monitor labs in AM, planning for HD again tomorrow (2) Hypotension: Plan: Hypotensive with increased oxygen requirements and respiratory distress AM 06/29 in setting of developing sepsis likely 2nd to foot infection/recent osteomyelitis. Lactic elevated on admission, improved on repeats BPs 60s/25, 76/44 , repeat manual 115/51 w/ O2 requirement from 5-6L to 12L on h iflow w/ tachypnea. concerns for volume overload given CXR w/ pulm congestion on admission despite EDW below outpt measurements and HD on 06/28 without pulling fluid off. CTA negative for PE, remains on eliquis 5mg BID Remains on midodrine 5mg TID, 10mg dose in AM w/ HD and nephro recs for additional dosing/adjustments w/ HD 4L removed w/ HD 07/01, next HD for tomorrow, UF as tolerated Continue 1200mL fluid restriction, diet advanced to low fiber for today as outlined given improvement in KUB and continued bowel movements ABx/ID/podiatry on consult for R foot infection as outlined for developing sepsis 2nd to foot infection BP stable 106/52 at present and denied any lightheaded/dizziness Rec STOPPING his HCTZ given he does not make urine at baseline and prevention of hypotension at discharge (3) End-stage renal disease on hemodialysis: Plan: Patient ESRD on HD q M/W/F. Nephrology following Continued volume overloaded state, overloaded on admission Continue fluid restriction, diet advanced HD again tomorrow (MWF) (4) Respiratory distress: Plan: 2nd to sepsis as well as volume overloaded state (CXR on admission w/ pulm congestion, elevated BNP) -- see above Placed on BiPAP 06/29 and overnight HD as outlined above BiPAP HS, consider continued use of such at discharge CTA negative for PE Currently back to his usual 4L NC - 96% Continue nebs/pulmonary toilet (5) Abdominal distention: Plan: developing obstruction not excluded on KUB 06/29 and backed to clear liquids given +BM right before study Had tolerated clears, moving bowels., surgery followed, ok w/ advancing diet Ascites improved w/ HD GI on consult KUB improving Diet advanced today to low fiber given improvement in imaging, patient report as well as moving his bowels (6) Ileus: Plan: resolved, moving bowels diet advanced to low fiber diet, monitor continued bowel movements. Check cdiff given abx use/distension and 4BM this morning reported C Diff gene negative 07/02/22 Consider reglan if suspicious for gastroparesis w/ his DM (patient has no nausea or early satiety) (7) Weakness: Plan: Multifactorial but suspected continued/ongoing sepsis w/ source R foot, volume overload w/ pulm congestion/elevated BNP/increased O2 needs Tx as outlined above, continued abx/hoping for source control Fall precautions in place PT/OT consulted and suggest home health PT for strengthening and cardiovascular activity (8) Diabetes mellitus type 2, uncontrolled: Plan: Longstanding history of DM, most recent A1c 7.6 Patient refused insulin last evening and this AM BS were over 300, another long conversation with patient regarding diabetes and the need for better glucose control to aid in healing and prevent further damage Appreciate pharmacy assistance (9) Cirrhosis of liver with ascites: Plan: With increased abdominal distention since receiving IVF per patient on admit w/ elevated lactic. Abx w/ zosyn for foot should also help to cover Avoiding further IVF, abx for infection Small-mod ascites on US abd prior day in stay, HD as outlined above for UF, good HD for 4L yesterday To have dialysis tomorrow (MWF) Is on HCTZ at home but given hypotension issues/not making any urine, doubt any benefit from continued use at discharge GI on consult as above (10) PAF (paroxysmal atrial fibrillation): Plan: Regular rhythm on physical exam. EKG ordered -- Vpaced rhythm Continue Amiodarone 200mg po qAM Continue Apixaban 5mg po BID (11) CAD (coronary artery disease): Plan: Patient wiht PCI to RCA in 2017. He had a cardiac catheterization in July 2019 with patent stent. Cardiac catheterization March 2021 with in-stent restenosis of the RCA with severe disease, chronically occluded OM3. No acute intervention. Patient on medical management - has been unable to tolerated beta blockers due to hypotension. He follows with Cardiology - Dr. Norton at [facility]. No CP reported except when laying flat w/ SOB from the ascites/volume overload which is reportedly also improving Continue ASA, Atorvastatin (12) GERD (gastroesophageal reflux disease): Plan: Chronic. Stable. Patient on Omeprazole Protonix 40mg daily while inpatient (13) Hyperlipidemia: Plan: Chronic. Stable Continue Atorvastatin 40mg po qHS (14) Hypertension: Plan: See above, hypotension No antihypertensives as above no amlodipine or HCTZ -- consider dc hctz at dc as above. can verify w/ nephro prior to dc given he doesn't make any urine Plan continued inpatient stay, continue abx, monitor cultures Dr Rust taking patient to OR for wound debridement and wound vac placement and cultures will be obtained Admission and Anticipated Discharge Date Admission Date: June 28, 2022 Supervising Physician Co-Signing Physician Notes PA Supervision Note: I did not personally see or examine this patient. I verified all mata points and agree with MARK Gurrola with the following exceptions and/or additions: None. Care of amputations per Podiatric Medicine, continue vanc/Zosyn for now and await path/cultures. Dr. Rust does not feel that great toe has clinical evidence of OM and further intervention not needed at this time. Agree with stopping HCTZ given anuria and normal BP without medication. Patient educated on importance of glycemic control both acutely for infection as well as chronically to help decrease risk of further infections/amputations. Subjective POD #1 s/p partial excision of 4th and 5th metatarsals, wound debridement with application of wound vac with Dr Rust. Patient seen this afternoon and is sitting upright in the recliner eating lunch. He denies any complaints except he is mad about still being in the hospital. He refused insulin last night and this AM BS was over 300. I had a long conversation about uncontrolled diabetes and the complications. Patient became upset and angry and stated he needs his blood sugars to be 180 or above. And he stated he will continue to refuse insulin if he doesn't feel he needs the insulin. He is aware that consistent elevated BS can cause further damage and impair/delay healing and/or causing further damage. Review of Systems Review of Systems: complains of abdominal bloating but has improved with HD + fatigue + weakness denies any N/V, chest pain Physical Exam Constitutional: + ill appearing, + combative and + overweight; no acute distress Neck: trachea midline, no thyromegaly Respiratory: normal respiratory effort, lungs clear to auscultation Cardiovascular: RRR, no murmur, no edema Extremities: no calf tenderness and no edema Gastrointestinal (Abdomen): normal bowel sounds, soft, nontender, no hepatosplenomegaly distended Neurologic: PERRL, EOMI, accommodation nl, no face palsy, no dysarthria Psychiatric: A+Ox3, euthymic affect Results & Data Results & Data Vital Signs (Past 12 Hours) Vital Signs Temp Pulse Pulse Resp BP Pulse Ox O2 Del Method 07/04/22 08:00 70 07/04/22 08:01 36.5 C 70 19 119/68 90 Nasal Cannula 07/04/22 06:50 57 L 18 94 Nasal Cannula 07/04/22 02:49 36.4 C L 70 19 103/60 97 CPAP 07/03/22 22:46 36.4 C L 70 17 105/65 96 CPAP O2 Flow Rate 07/04/22 08:00 07/04/22 08:01 4.0 07/04/22 06:50 4 07/04/22 02:49 07/03/22 22:46 Laboratory Results Abnormal lab results 07/03/22 07/03/22 07/03/22 Range/Units 12:50 17:30 18:36 RBC (4.70-6.10) M/uL Hgb (14.0-18.0) g/dl Hct (42.0-52.0) % MCHC (32.0-36.0) g/dL RDW Std Deviation (36.4-46.3) fL RDW Coeff of Octavio (11.5-14.5) % Sodium (136-145) mmol/L Chloride (98-107) mmol/L Anion Gap (3-11) BUN (6-23) mg/dl Creatinine (0.6-1.4) mg/dl BUN/Creatinine Ratio (10-20) Glucose (70-99(Fasting)) mg/dl POC Glucose 102 H 116 H 134 H (70-99) mg/dl Calcium (8.6-10.3) mg/dl 07/04/22 07/04/22 07/04/22 Range/Units 06:19 06:19 07:14 RBC 4.03 L (4.70-6.10) M/uL Hgb 11.1 L (14.0-18.0) g/dl Hct 37.0 L (42.0-52.0) % MCHC 30.0 L (32.0-36.0) g/dL RDW Std Deviation 63.7 H (36.4-46.3) fL RDW Coeff of Octavio 19.5 H (11.5-14.5) % Sodium 133 L (136-145) mmol/L Chloride 92 L (98-107) mmol/L Anion Gap 16 H (3-11) BUN 30 H (6-23) mg/dl Creatinine 4.67 H* D (0.6-1.4) mg/dl BUN/Creatinine Ratio 6.4 L (10-20) Glucose 310 H* (70-99(Fasting)) mg/dl POC Glucose 298 H (70-99) mg/dl Calcium 7.8 L (8.6-10.3) mg/dl PG Care Time/CCT Total # of Minutes Spent Total Time Spent with Patient: Total time spent is greater than 50% in coordination of care (as documented) at patient's floor/unit and/or counseling patient: Coding Level of Care Code 30371 SUB INP/OBS CARE 350MIN Diagnoses Infection of right foot L08.9 Hypotension I95.9 End-stage renal disease on hemodialysis N18.6; Z99.2 Respiratory distress R06.03 Abdominal distention R14.0 Ileus K56.7 Weakness R53.1 Diabetes mellitus type 2, uncontrolled E11.65 Glycemic state: with hyperglycemia Cirrhosis of liver with ascites K74.60; R18.8 PAF (paroxysmal atrial fibrillation) I48.0 CAD (coronary artery disease) I25.10 Associated angina: without angina Coronary Disease-Associated Artery/Lesion type: [place] artery [place] vs. transplanted heart: [place] heart GERD (gastroesophageal reflux disease) K21.9 Hyperlipidemia E78.5 Hypertension I10 (8) Diabetes mellitus type 2, uncontrolled Glycemic state: with hyperglycemia Qualified Code(s): E11.65 - Type 2 diabetes mellitus with hyperglycemia (11) CAD (coronary artery disease) Associated angina: without angina Coronary Disease-Associated Artery/Lesion type: [place] artery [place] vs. transplanted heart: [place] heart Qualified Code(s): I25.10 - Atherosclerotic heart disease of [place] coronary artery without angina pectoris
--- NOTE | 2022-07-04 10:16 | Pharmacy Report ---
Pharmacy Glycemic Short Note 2 - Date of Service July 04, 2022 - Glycemic Short BSG Results (Last 24 hours): 07/03/22 07/03/22 07/03/22 12:50 17:30 18:36 Glucose POC Glucose 102 H 116 H 134 H 07/04/22 07/04/22 06:19 07:14 Glucose 310 H* POC Glucose 298 H OUTPATIENT ANTIDIABETIC REGIMEN: * Toujeo 0-33 units SC daily (based on BSG) * BSG < 130 mg/dL - hold * BSG 130-170 mg/dL - 1/2 dose * BSG >170 mg/dL - 33 units * Apidra 4 units SC daily with dinner * HbA1c: 7.6% (05/02/22) * However, this result is likely somewhat unreliable in ESRD patients d/t interactions between the A1c analyzing technique and high levels of urea in ESRD, reduced RBC life span, iron deficiency anemia, and EPO administration. HbA1c > 7.5% in ESRD patient may overestimate the extent of hyperglycemia in ESRD patients. ASSESSMENT: 07/04: * Patient received no insulin yesterday, NPO for surgery; BSGs 100-140s * Fasting BSG elevated this morning, steroids given in OR late last evening likely contributing to elevation * Will add on small dose of basal insulin for this AM and tighten CF/CR slightly 06/30: * Ryan received 13 units of insulin yesterday, 8 units basal + 5 units bolus. BSGs were: 032-480-105-166 mg/dL. * Patient became hypotensive around HD session and was transferred to the ICU for closer monitoring. Remains on Vancomycin and Zosyn. Has undergone HD sessions on 06/28, 06/29 and 06/30 now. * Fasting BSG is at goal this AM, 144 mg/dL. Will continue with reduced dose of basal from yesterday. * Tightened CF/CR slightly today to help control postprandial BSGs now that patient is eating. 06/28: * PZ is a 52 year old male transferred from [facility] early this morning * Patient reports increased generalized weakness, fatigue, and severe right hip pain. He also reports multiple falls at home. * Initial labs showed multiple abnormalities, hyperkalemia (5.7 mmol/L), hyperphosphatemia (7.5 mg/dL), anion gap of 20 w/ normal serum bicarbonate (25 mmol/L), hyperglycemia (BSG of 339 mg/dL), elevated lactate (4.1), among others. * Patient has history of uncontrolled T2DM and ESRD requiring HD (scheduled for HD session today) * Given elevated anion gap, suggested blood gas be obtained, which came back normal * IV insulin bolus ordered for hyperkalemia, also ordered HD for today * Historically, patient has required ~7-10 units of basal insulin PLAN FOR INPATIENT GLYCEMIC CONTROL: * Basal insulin * Lantus 8 units SC daily * Bolus insulin * NovoLog per scale ACHS or Q6hrs while NPO * Goal Range: Low 120 mg/dL - High 160 mg/dL * Correction Factor: 30 mg/dL/unit * Nutritional / Prandial insulin per carb ratio of 1 unit per 10 grams CHO consumed
[2022-07-04] MEDS: FLUTICASONE/VILANTEROL 100/25MCG 14 PUFFS/INHALER INH SCH (10:19)
--- NOTE | 2022-07-04 10:42 | Nephrology Progress Note ---
Date of Service July 04, 2022 Assessment & Plan (1) End-stage renal disease on hemodialysis: (2) Moderate pulmonary hypertension: (3) Acute osteomyelitis of right foot: (4) Abdominal distention: Plan 52-year-old gentlemen with ESRD on hemodialysis Sunday, Sunday, Sunday, admitted with right foot osteomyelitis, s/p debridement and wound vac on 07/03/22 Overall doing better, volume status improved. BP fair. --continue on IHD MWF, dialysis, BP stable. --dose medications for EGFR less than 10. -- limit fluid intake to less than 1200 mL per day, follow low-salt diet Admission and Anticipated Discharge Date Admission Date: June 28, 2022 Subjective Ryan seen and evaluated this morning, overall feeling better, tolerating regular food, had BM, abdominal distention improved. BP fair. Electrolyte has been acceptable. Had debridement and wound vac placed yesterday, Review of Systems Review of Systems: Detailed review system was done and the pertinent positives and negatives mentioned above. Physical Exam Constitutional: WD/WN, vitals as above no acute distress Eyes: + anicteric sclerae Neck: normal visual inspection Respiratory: Auscultation: lungs clear to auscultation bilaterally Cardiovascular: Rate/Rhythm: regular rate and regular rhythm Heart Sounds: normal S1 and normal S2 Extremities: + edema Gastrointestinal (Abdomen): Percussion/Palpation: abdomen nontender, no guarding and abdomen not rigid Musculoskeletal: wound vac rt foot Skin: no rashes, warm and dry Neurologic: no focal motor deficits Psychiatric: Orientation: alert and oriented x 3 Results & Data Vital Signs (Past 12 Hours) Vital Signs Temp Pulse Pulse Resp BP Pulse Ox O2 Del Method 07/04/22 08:00 70 07/04/22 08:01 36.5 C 70 19 119/68 90 Nasal Cannula 07/04/22 06:50 57 L 18 94 Nasal Cannula 07/04/22 02:49 36.4 C L 70 19 103/60 97 CPAP 07/03/22 22:46 36.4 C L 70 17 105/65 96 CPAP O2 Flow Rate 07/04/22 08:00 07/04/22 08:01 4.0 07/04/22 06:50 4 07/04/22 02:49 07/03/22 22:46 PG Care Time/CCT Total # of Minutes Spent Total Time Spent with Patient: Total time spent is greater than 50% in coordination of care (as documented) at patient's floor/unit and/or counseling patient: Coding Level of Care Code 91720 SUB INP/OBS CARE 350MIN Diagnoses End-stage renal disease on hemodialysis N18.6; Z99.2 Moderate pulmonary hypertension I27.20 Acute osteomyelitis of right foot M86.171 Abdominal distention R14.0
[2022-07-04] MEDS: PANTOprazole 40 MG in SYRINGE 0 ML IV SCH (11:12)
[2022-07-04] MEDS: ATORVASTATIN 40 MG TAB PO SCH (19:44)
[2022-07-04] MEDS: MONTELUKAST SODIUM 10 MG TABLET PO SCH (19:44)
[2022-07-05] MEDS ORDERED: ALBUMIN 25% 25 GM/100 ML VIAL IV ONE ×2 (00:56→05:23)
[2022-07-05] MEDS ORDERED: SODIUM CHLORIDE 0.9% 1000ML 500 ML IV ONE ×3 (00:56→06:49)
[2022-07-05] MEDS: PIPERACILLIN/TAZOBACTAM 4.5 GM CI (over 4 hours) IV SCH ×2 (03:59→16:18)
[2022-07-05 05:57] LABS: Hematocrit (blood only) 35.5 % (42.0-52.0); Hemoglobin 10.9 g/dl (14.0-18.0); Mean Corpuscular Hemoglobin 28.1 pg (25.0-34.0); Mean Corpuscular Hgb Conc 30.7 g/dL (32.0-36.0); Mean Corpuscular Volume 91.5 fL (80.0-100.0); Mean Platelet Volume 10.9 fL (9.4-12.4); Nucleated RBC # (auto) 0.02 K/uL (0-0.12); Nucleated RBC % (auto) 0.2 %; Platelet Count 210 K/uL (130-400); RDW Coefficient of Variation 19.7 % (11.5-14.5); RDW Standard Deviation 64.3 fL (36.4-46.3); Red Blood Count 3.88 M/uL (4.70-6.10); White Blood Count 9.52 K/ul (4.8-10.8)
[2022-07-05 06:11] LABS: BUN Creatinine Ratio 7.3 (10-20); Calcium 8.1 mg/dl (8.6-10.3); Creatinine Clr Calc Pharmacy 17.3 ml/min; Est GFR (African American) 12.3 ml/min; Est GFR (Non-African American) 10.6 ml/min; Potassium 4.3 mmol/L (3.5-5.1)
[2022-07-05] MEDS: ALBUT/IPRATROP 3MG/0.5MG NEB 3 ML VIAL NEB SCH ×4 (06:57→19:57)
[2022-07-05] MEDS ORDERED: LANTUS PER UNIT CHARGE SQ SCH ×2 (08:00→09:00)
[2022-07-05] MEDS ORDERED: diphenhydrAMINE Capsule 25 MG CAP PO ONE (08:03)
[2022-07-05] MEDS: INSULIN ASPART PER UNIT CHARGE SC SCH ×4 (08:05→20:52)
[2022-07-05] MEDS: ASPIRIN 81 MG ECTAB PO SCH (08:06)
[2022-07-05] MEDS: FLUTICASONE/VILANTEROL 100/25MCG 14 PUFFS/INHALER INH SCH (08:06)
[2022-07-05] MEDS: MIDODRINE HCL 2.5 MG TAB PO SCH ×3 (08:06→16:19)
[2022-07-05] MEDS: AMIODARONE 200 MG TAB PO SCH (08:06)
--- NOTE | 2022-07-05 08:14 | Pharmacy Report ---
Pharmacy PK ABX Note - Date of Service July 05, 2022 - Assessment and Plan Assessment 52 year old M receiving empiric vancomycin and Zosyn for treatment of right foot osteomyelitis. Pertinent microbiologic data includes: right foot cultures growing group B Strep, MSSA, and Cutibacterium acnes in April 2022 w/ history of Pseudomonas aeruginosa in right foot 12/2021. R foot culture on 06/28 with corynebacterium species, potential contaminant per notes. Patient went to OR 07/03 for further debridement - cultures pending. Patient has T2DM and ESRD requiring HD/patient anuric. ID consulted. Day #8 of antimicrobial therapy. Plan Vancomycin * Pre-HD level ~16 mcg/ml - will dose with 500 mg of vancomycin this afternoon for after dialysis * Plan to reorder next level prior to next HD session / planning for MWF dialysis per notes Zosyn * 4.5 g IV q12h -appropriate for patient on HD Pharmacy will continue to follow and will adjust dose/frequency as necessary. Thank you.
[2022-07-05] MEDS ORDERED: MIDODRINE HCL 10 MG TAB PO STA (08:41)
--- NOTE | 2022-07-05 09:32 | Hospitalist Progress Note ---
Date of Service July 05, 2022 Assessment & Plan (1) Infection of right foot: Plan: In patient w/ diabetes, Hx osteomyelitis of right root, and recent admission for Group B streptococcus bacteremia and had partial excision 3/4/5th metatarsals and excision right foot wount w/ Dr Rust on 05/13 I was concerned about ongoing infection/osteomyelitis given appearance of his right foot/toes given he had completed 6 wks Ancef, last date 06/24 and reported continued drainage at home Surface cx obtained other night for drainage to see if able to provide assistance. discussed w/ ID and likely noncontributory Podiatry on consult, wanted bone scan Impression: * 1.Interval development of abnormal 3 phase radiotracer uptake within the left first toe. This is concerning for osteomyelitis. * 2. Persistent abnormal 3 phase radiotracer uptake within the right third and fourth metatarsals. This is similar to the prior study. This may also represent osteomyelitis. Podiatry consulted, s/p partial excision of 4th and 5th metatarsals, wound debridement with application of wound vac with Dr Rust 07/03/[address] Rust there is no clinical evidence of OM in the 1st toe and no treatment planned. ID Dr Gutierrez following Believed patient would benefit from amputation for source control given just completed 6 wks abx and ongoing infection, but defer intervention to podiatry on repeat evals WBC continued improvement. Remains afebrile. Blood cultures remain NGTD I spoke today with Dr Gutierrez via the phone and she recommended that since the prelim culture of the 5th toe is + for crynebacterium like the previous culture she recommends 7 day treatment of IV vancomycin. Today would be day #2. ID was also going to speak with pharmacy regarding the vancomycin dose and to titrate with dialysis. ID also d/c the IV Zosyn today (2) Hypotension: Plan: Hypotensive with increased oxygen requirements and respiratory distress AM 06/29 in setting of developing sepsis likely 2nd to foot infection/recent osteomyelitis. Lactic elevated on admission, improved on repeats BPs 60s/25, 76/44 , repeat manual 115/51 w/ O2 requirement from 5-6L to 12L on hiflow w/ tachypnea. concerns for volume overload given CXR w/ pulm congestion on admission despite EDW below outpt measurements and HD on 06/28 without pulling fluid off. CTA negative for PE, remains on eliquis 5mg BID Remains on midodrine 5mg TID, 10mg dose in AM w/ HD and nephro recs for additional dosing/adjustments w/ HD 4L removed w/ HD 07/01, next HD for tomorrow, UF as tolerated Continue 1200mL fluid restriction, diet advanced to low fiber for today as outlined given improvement in KUB and continued bowel movements ABx/ID/podiatry on consult for R foot infection as outlined for developing sepsis 2nd to foot infection Was hypotensive last evening and the night team gave 25% albumin with 500 nss x2 with not much improvement in BP BP stable 121/99 at present and denied any lightheaded/dizziness currently. S/P HD this AM with 3L removed Rec STOPPING his HCTZ given he does not make urine at baseline and prevention of hypotension at discharge (3) End-stage renal disease on hemodialysis: Plan: Patient ESRD on HD q M/W/. Nephrology following Continued volume overloaded state, overloaded on admission Continue fluid restriction, diet advanced HD (MWF) (4) Respiratory distress: Plan: 2nd to sepsis as well as volume overloaded state (CXR on admission w/ pulm congestion, elevated BNP) -- see above Placed on BiPAP 06/29 and overnight HD as outlined above BiPAP HS, consider continued use of such at discharge CTA negative for PE Currently back to his usual 4L NC - 96% Continue nebs/pulmonary toilet (5) Abdominal distention: Plan: developing obstruction not excluded on KUB 06/29 and backed to clear liquids given +BM right before study Had tolerated clears, moving bowels., surgery followed, ok w/ advancing diet Ascites improved w/ HD GI on consult KUB improving Diet advanced today to low fiber given improvement in imaging, patient report as well as moving his bowels (6) Ileus: Plan: resolved, moving bowels diet advanced to low fiber diet, monitor continued bowel movements. Check cdiff given abx use/distension and 4BM this morning reported C Diff gene negative 07/02/22 Consider reglan if suspicious for gastroparesis w/ his DM (patient has no nausea or early satiety) (7) Weakness: Plan: Multifactorial but suspected continued/ongoing sepsis w/ source R foot, volume overload w/ pulm congestion/elevated BNP/increased O2 needs Tx as outlined above, continued abx/hoping for source control Fall precautions in place PT/OT consulted and suggest home health PT for strengthening and cardiovascular activity (8) Diabetes mellitus type 2, uncontrolled: Plan: Longstanding history of DM, most recent A1c 7.6 Patient refused insulin last evening and this AM BS were over 300, another long conversation with patient regarding diabetes and the need for better glucose control to aid in healing and prevent further damage Appreciate pharmacy assistance (9) Cirrhosis of liver with ascites: Plan: With increased abdominal distention since receiving IVF per patient on admit w/ elevated lactic. Abx w/ zosyn for foot should also help to cover Avoiding further IVF, abx for infection Small-mod ascites on US abd prior day in stay, HD as outlined above for UF, good HD for 4L yesterday To have dialysis tomorrow (MWF) Is on HCTZ at home but given hypotension issues/not making any urine, doubt any benefit from continued use at discharge GI on consult as above (10) PAF (paroxysmal atrial fibrillation): Plan: Regular rhythm on physical exam. EKG ordered -- Vpaced rhythm Continue Amiodarone 200mg po qAM Continue Apixaban 5mg po BID (11) CAD (coronary artery disease): Plan: Patient with PCI to RCA in 2018. He had a cardiac catheterization in July 2019 with patent stent. Cardiac catheterization March 2021 with in-stent reste nosis of the RCA with severe disease, chronically occluded OM3. No acute intervention. Patient on medical management - has been unable to tolerated beta blockers due to hypotension. He follows with Cardiology - Dr. Norton at [facility]. No CP reported except when laying flat w/ SOB from the ascites/volume overload which is reportedly also improving Continue ASA, Atorvastatin (12) GERD (gastroesophageal reflux disease): Plan: Chronic. Stable. Patient on Omeprazole Protonix 40mg daily while inpatient (13) Hyperlipidemia: Plan: Chronic. Stable Continue Atorvastatin 40mg po qHS (14) Hypertension: Plan: See above, hypotension No antihypertensives as above no amlodipine or HCTZ --recommend dc hctz at dc as above. can verify w/ nephro prior to dc given he doesn't make any urine Admission and Anticipated Discharge Date Admission Date: June 28, 2022 Supervising Physician Co-Signing Physician Notes PA Supervision Note: I did not personally see or examine this patient. I verified all mata points and agree with MARK Gurrola with the following exceptions and/or additions: Care of amputations per Podiatric Medicine, continue vanc/Zosyn for now and await path/cultures. Dr. Rust does not feel that great toe has clinical evidence of OM and further intervention not needed at this time. Agree with stopping HCTZ altogether given anuria and hypotension. Patient with episode of hypotension early this morning with some associated nausea, improved with total of 1 L normal saline and 25% albumin x2, repeat blood pressures in the 100s systolic, with blood pressures since that time anywhere from [address]357 systolic without symptoms. Appreciate nephrology's insight, continue midodrine 5 mg 3 times daily, could consider increased dose if necessary however would defer to nephrology. Patient educated this admission on importance of glycemic control both acutely for infection as well as chronically to help decrease risk of further infections/amputations. Per nephrology for hypotension: -- limit fluid intake to less than 1200 mL per day, follow low-salt diet -- if BP again low, try checking BP with turning to left side so that we can avoid IV boluses as patient's blood pressure changes do appear to be somewhat positional Subjective POD #3 s/p partial excision of 4th and 5th metatarsals, wound debridement with application of wound vac with Dr Rust. Preliminary culture of the right 5th toe was corynebacterium (same as prior biopsy) I spoke today with ID Dr Gutierrez who recommended 7 days of vancomycin. She was going to speak with pharmacy regarding the dose with dialysis Today would be day #2/7 for the Vanco CM is working on approval for wound vac to have IV vancomycin set up as well Patient was hypotensive last evening and the night team treated with 1000 nss with 25% albumin x 2 Currently patient's BP is 121/99 He states he had 3L taken off today at dialysis and is feeling better since dialysis Review of Systems Review of Systems: complains of abdominal bloating but has improved with HD + fatigue + weakness denies any N/V, chest pain Physical Exam Constitutional: + ill appearing, cooperative and + overweight; no acute distress Neck: trachea midline, no thyromegaly Respiratory: normal respiratory effort, lungs clear to auscultation Cardiovascular: RRR, no murmur, no edema Extremities: no calf tenderness and no edema Gastrointestinal (Abdomen): normal bowel sounds, soft, nontender, no hepatosplenomegaly Neurologic: PERRL, EOMI, accommodation nl, no face palsy, no dysarthria Psychiatric: A+Ox3, euthymic affect Results & Data Results & Data Vital Signs (Past 12 Hours) Vital Signs Temp Pulse Pulse Resp BP Pulse Ox O2 Del Method 07/05/22 07:17 36.7 C 71 19 103/67 96 Nasal Cannula 07/05/22 06:57 72 18 94 Nasal Cannula 07/05/22 06:35 70 77/28 L 07/05/22 05:14 70 77/42 L 97 Nasal Cannula 07/05/22 03:34 36.5 C 70 20 95/60 L 97 Nasal Cannula 07/05/22 02:38 70 20 96/58 L 95 CPAP 07/05/22 00:40 70 68/23 L 07/04/22 23:30 88/23 L 07/05/22 00:02 36.4 C L 70 22 98 CPAP O2 Flow Rate 07/05/22 07:17 4.0 07/05/22 06:57 4 07/05/22 06:35 07/05/22 05:14 4 07/05/22 03:34 4 07/05/22 02:38 4 07/05/22 00:40 07/04/22 23:30 07/05/22 00:02 4 Laboratory Results Abnormal lab results 07/04/22 07/04/22 07/05/22 Range/Units 16:12 19:49 03:41 RBC (4.70-6.10) M/uL Hgb (14.0-18.0) g/dl Hct (42.0-52.0) % MCHC (32.0-36.0) g/dL RDW Std Deviation (36.4-46.3) fL RDW Coeff of Octavio (11.5-14.5) % Sodium (136-145) mmol/L Chloride (98-107) mmol/L Anion Gap (3-11) BUN (6-23) mg/dl Creatinine (0.6-1.4) mg/dl BUN/Creatinine Ratio (10-20) Glucose (70-99(Fasting)) mg/dl POC Glucose 245 H 167 H 167 H (70-99) mg/dl Calcium (8.6-10.3) mg/dl 07/05/22 07/05/22 07/05/22 Range/Units 05:28 05:28 07:13 RBC 3.88 L (4.70-6.10) M/uL Hgb 10.9 L (14.0-18.0) g/dl Hct 35.5 L (42.0-52.0) % MCHC 30.7 L (32.0-36.0) g/dL RDW Std Deviation 64.3 H (36.4-46.3) fL RDW Coeff of Octavio 19.7 H (11.5-14.5) % Sodium 132 L (136-145) mmol/L Chloride 92 L (98-107) mmol/L Anion Gap 16 H (3-11) BUN 41 H (6-23) mg/dl Creatinine 5.59 H* D (0.6-1.4) mg/dl BUN/Creatinine Ratio 7.3 L (10-20) Glucose 155 H (70-99(Fasting)) mg/dl POC Glucose 155 H (70-99) mg/dl Calcium 8.1 L (8.6-10.3) mg/dl 07/05/22 Range/Units 13:44 RBC (4.70-6.10) M/uL Hgb (14.0-18.0) g/dl Hct (42.0-52.0) % MCHC (32.0-36.0) g/dL RDW Std Deviation (36.4-46.3) fL RDW Coeff of Octavio (11.5-14.5) % Sodium (136-145) mmol/L Chloride (98-107) mmol/L Anion Gap (3-11) BUN (6-23) mg/dl Creatinine (0.6-1.4) mg/dl BUN/Creatinine Ratio (10-20) Glucose (70-99(Fasting)) mg/dl POC Glucose 161 H (70-99) mg/dl Calcium (8.6-10.3) mg/dl PG Care Time/CCT Total # of Minutes Spent Total Time Spent with Patient: Total time spent is greater than 50% in coordination of care (as documented) at patient's floor/unit and/or counseling patient: Coding Level of Care Code 07246 SUB INP/OBS CARE 3/50MIN Diagnoses Infection of right foot L08.9 Hypotension I95.9 End-stage renal disease on hemodialysis N18.6; Z99.2 Respiratory distress R06.03 Abdominal distention R14.0 Ileus K56.7 Weakness R53.1 Diabetes mellitus type 2, uncontrolled E11.65 Glycemic state: with hyperglycemia Cirrhosis of liver with ascites K74.60; R18.8 PAF (paroxysmal atrial fibrillation) I48.0 CAD (coronary artery disease) I25.10 Associated angina: without angina Coronary Disease-Associated Artery/Lesion type: [place] artery [place] vs. transplanted heart: [place] heart GERD (gastroesophageal reflux disease) K21.9 Hyperlipidemia E78.5 Hypertension I10 (8) Diabetes mellitus type 2, uncontrolled Glycemic state: with hyperglycemia Qualified Code(s): E11.65 - Type 2 diabetes mellitus with hyperglycemia (11) CAD (coronary artery disease) Associated angina: without angina Coronary Disease-Associated Artery/Lesion type: [place] artery [place] vs. transplanted heart: [place] heart Qualified Code(s): I25.10 - Atherosclerotic heart disease of [place] coronary artery without angina pectoris
--- NOTE | 2022-07-05 10:30 | Nephrology Progress Note ---
Date of Service July 05, 2022 Assessment & Plan (1) End-stage renal disease on hemodialysis: (2) Moderate pulmonary hypertension: (3) Acute osteomyelitis of right foot: (4) Abdominal distention: Plan 52-year-old gentlemen with ESRD on hemodialysis Sunday, Sunday, Sunday, admit marilyn with right foot osteomyelitis, s/p debridement and wound vac on 07/03/22 BP has been variable but seems positional --will try 2 L UF with HD as BP has been significantly low overnight requiring IV bolus --dose medications for EGFR less than 10. -- limit fluid intake to less than 1200 mL per day, follow low-salt diet --if BP again low, try checking the BP with turning to left side so that we can avoid IV boluses. Admission and Anticipated Discharge Date Admission Date: June 28, 2022 Lanie Davis seen and evaluated this morning during HD, he has not been feeling well, Overnight BP repeatedly recorded low and received IV fluid boluses total 1.5 L. abdominal distended but tolerating regular diet and having BM. Electrolyte has been acceptable. BP seems to be positional as when he turns to his left side with BP cuff in rt forearm, SBP improves to >110. Review of Systems Review of Systems: Detailed review system was done and the pertinent positives and negatives mentioned above. Physical Exam Constitutional: WD/WN, vitals as above no acute distress Eyes: + anicteric sclerae Neck: normal visual inspection Respiratory: Auscultation: lungs clear to auscultation bilaterally Cardiovascular: Rate/Rhythm: regular rate and regular rhythm Heart Sounds: normal S1 and normal S2 Extremities: no edema Gastrointestinal (Abdomen): Inspection/Auscultation: + abdomen distended Percussion/Palpation: abdomen nontender, no guarding and abdomen not rigid Musculoskeletal: wound vac rt foot Skin: no rashes, warm and dry Neurologic: no focal motor deficits Psychiatric: Orientation: alert and oriented x 3 Results & Data Vital Signs (Past 12 Hours) Vital Signs Temp Pulse Pulse Pulse Pulse Resp BP 07/05/22 10:00 53 L 120/40 L 07/05/22 09:45 71 113/54 L 07/05/22 09:25 36.7 C 76 07/05/22 07:17 36.7 C 71 19 07/05/22 06:57 72 18 07/05/22 06:35 70 07/05/22 05:14 70 07/05/22 03:34 36.5 C 70 20 07/05/22 02:38 70 20 07/05/22 00:40 70 07/04/22 23:30 07/05/22 00:02 36.4 C L 70 22 BP Pulse Ox O2 Del Method O2 Flow Rate 07/05/22 10:00 07/05/22 09:45 07/05/22 09:25 07/05/22 07:17 103/67 96 Nasal Cannula 4.0 07/05/22 06:57 94 Nasal Cannula 4 07/05/22 06:35 77/28 L 07/05/22 05:14 77/42 L 97 Nasal Cannula 4 07/05/22 03:34 95/60 L 97 Nasal Cannula 4 07/05/22 02:38 96/58 L 95 CPAP 4 07/05/22 00:40 68/23 L 07/04/22 23:30 88/23 L 07/05/22 00:02 98 CPAP 4 PG Care Time/CCT Total # of Minutes Spent Total Time Spent with Patient: Total time spent is greater than 50% in coordination of care (as documented) at patient's floor/unit and/or counseling patient: Coding Level of Care Code 89660 SUB INP/OBS CARE 3/50MIN Diagnoses End-stage renal disease on hemodialysis N18.6; Z99.2 Moderate pulmonary hypertension I27.20 Acute osteomyelitis of right foot M86.171 Abdominal distention R14.0
[2022-07-05] MEDS: PANTOprazole 40 MG in SYRINGE 0 ML IV SCH (14:06)
[2022-07-05] MEDS ORDERED: VANCOMYCIN HCL 500 MG in DEXTROSE 5% 100 ML IV ONE (16:00)
[2022-07-05] MEDS: ATORVASTATIN 40 MG TAB PO SCH (20:57)
[2022-07-05] MEDS: MONTELUKAST SODIUM 10 MG TABLET PO SCH (20:57)
[2022-07-05] MEDS: diphenhydrAMINE Capsule 25 MG CAP PO PRN (21:43)
[2022-07-06] MEDS: PIPERACILLIN/TAZOBACTAM 4.5 GM CI (over 4 hours) IV SCH (04:06)
[2022-07-06] MEDS: ALBUT/IPRATROP 3MG/0.5MG NEB 3 ML VIAL NEB SCH ×3 (07:04→15:15)
--- NOTE | 2022-07-06 07:46 | Hospitalist Progress Note ---
Date of Service July 06, 2022 Assessment & Plan (1) Infection of right foot: Plan: In patient w/ diabetes, Hx osteomyelitis of right root, and recent admission for Group B streptococcus bacteremia and had partial excision 3/4/5th metatarsals and excision right foot wound w/ Dr Rust on 05/13 Culture growing Corynebacterium, discussed with ID Dr. Gutierrez 07/06, continue vancomycin through 07/11 (can have 1g on HD days) Podiatry consulted, s/p partial excision of 4th and 5th metatarsals, wound debridement with application of wound vac with Dr Rust 07/03/[address] Rust there is no clinical evidence of OM in the 1st toe and no treatment planned WBC 12.65 today, no evidence of worsening infection. Blood cultures remain NGTD Ultimately, despite recommendations for rehab on discharge patient declines in facor of care by caregiver with HH services; working on arranging this (2) Hypotension: Plan: Hypotensive with increased oxygen requirements and respiratory distress AM 06/29 in setting of developing sepsis likely 2nd to foot infection/recent osteomyelitis. Lactic elevated on admission, improved on repeats CTA negative for PE, remains on Eliquis 5mg BID Remains on midodrine 5mg TID, 10mg dose in AM w/ HD and nephro recs for additional dosing/adjustments w/ HD Continue 1200mL fluid restriction ABx/ID/podiatry on consult for R foot infection as outlined Rec STOPPING his HCTZ given he does not make urine at baseline and decreased risk of hypotension at discharge (3) End-stage renal disease on hemodialysis: Plan: Patient ESRD on HD q M/W/ Nephrology following Continued volume overloaded state, overloaded on admission Continue fluid restriction, diet advanced (4) Respiratory distress: Plan: 2nd to sepsis as well as volume overloaded state (CXR on admission w/ pulm congestion, elevated BNP) -- see above HD as outlined above BiPAP HS, consider continued use of such at discharge CTA negative for PE Currently back to his usual 4L NC at baseline Continue nebs/pulmonary toilet (5) Abdominal distention: Plan: CTAP with IV contrast today without evidence of acute pathology to explain abdominal pain in lower quadrants. Some known ascites but not worse compared to previously known. Perhaps also due to bowel movements, continue bowel regimen. (6) Ileus: Plan: No evidence of such on imaging. (7) Diabetes mellitus type 2, uncontrolled: Plan: Last A1c 7.6 in April 2022, continue insulin with glycemic management consult (8) Cirrhosis of liver with ascites: Plan: Small-mod ascites on US abd prior day in stay, confirmed on CTAP today HD as outlined above Is on HCTZ at home but given hypotension issues/not making any urine, doubt any benefit from continued use at discharge (9) PAF (paroxysmal atrial fibrillation): Plan: Continue Amiodarone 200mg po qAM Resume Apixaban 5mg po BID (10) CAD (coronary artery disease): Plan: Patient with PCI to RCA in 2017. He had a cardiac catheterization in July 2019 with patent stent. Cardiac catheterization March 2021 with in-stent restenosis of the RCA with severe disease, chronically occluded OM3. No acute intervention. Patient on medical management - has been unable to tolerate beta blockers due to hypotension. He follows with Cardiology - Dr. Norton at [facility]. Continue ASA, Atorvastatin (11) GERD (gastroesophageal reflux disease): Plan: Chronic. Stable. Patient on Omeprazole at home Protonix 40mg daily while inpatient (12) Hyperlipidemia: Plan: Chronic. Stable Continue Atorvastatin 40mg po qHS Plan Home with home health. Antibiotics will be vancomycin 1g daily with dialysis days (x1 dose, Monday 07/10) Admission and Anticipated Discharge Date Admission Date: June 28, 2022 Subjective Patient without acute events overnight. Patient himself reports pain around the area of the anus and gluteal cleft, as well as bilateral lower abdominal pain. Having bowel movements, non-watery, no blood. Did have an episode today where he slid out of his chair onto the floor trying to get into bed by himself. Review of Systems Review of Systems: All systems reviewed & are unremarkable except as noted in Subjective Physical Exam Constitutional: WD/WN, vitals as above Respiratory: normal respiratory effort, lungs clear to auscultation Cardiovascular: RRR, no murmur, no edema Gastrointestinal (Abdomen): Rectal Exam: normal visual inspection of rectum; no rectal mass, no hemorrhoids, no rectal fissure and no rectal lesions abdomen soft, protuberant, mildly tender bilateral lower quadrants Skin: wound vac to right foot no rashes or irritation to gluteal cleft Psychiatric: A+Ox3, euthymic affect Results & Data Results & Data Vital Signs (Past 12 Hours) Vital Signs Temp Pulse Pulse Pulse Resp BP Pulse Ox 07/06/22 05:59 70 07/06/22 07:04 71 18 96 07/05/22 22:00 70 07/06/22 02:49 36.5 C 71 18 97/63 L 96 07/06/22 01:16 07/05/22 22:35 36.6 C 70 18 78/43 L 95 O2 Del Method O2 Flow Rate 07/06/22 05:59 07/06/22 07:04 Nasal Cannula 3 07/05/22 22:00 07/06/22 02:49 Nasal Cannula 4 07/06/22 01:16 CPAP 4 07/05/22 22:35 CPAP PG Care Time/CCT Total # of Minutes Spent Total Time Spent with Patient: Total time spent is greater than 50% in coordination of care (as documented) at patient's floor/unit and/or counseling patient: Coding Level of Care Code 23003 SUB INP/OBS CARE 3/50MIN Diagnoses Infection of right foot L08.9 Hypotension I95.9 End-stage renal disease on hemodialysis N18.6; Z99.2 Respiratory distress R06.03 Abdominal distention R14.0 Ileus K56.7 Diabetes mellitus type 2, uncontrolled E11.65 Glycemic state: with hyperglycemia Cirrhosis of liver with ascites K74.60; R18.8 PAF (paroxysmal atrial fibrillation) I48.0 CAD (coronary artery disease) I25.10 Associated angina: without angina Coronary Disease-Associated Artery/Lesion type: campo artery [place] vs. transplanted heart: campo heart GERD (gastroesophageal reflux disease) K21.9 Hyperlipidemia E78.5 (7) Diabetes mellitus type 2, uncontrolled Glycemic state: with hyperglycemia Qualified Code(s): E11.65 - Type 2 diabetes mellitus with hyperglycemia (10) CAD (coronary artery disease) Associated angina: without angina Coronary Disease-Associated Artery/Lesion type: [place] artery [place] vs. transplanted heart: [place]o heart Qualified Code(s): I25.10 - Atherosclerotic heart disease of campo coronary artery without angina pectoris
[2022-07-06] MEDS: INSULIN ASPART PER UNIT CHARGE SC SCH ×4 (08:24→20:35)
[2022-07-06] MEDS: LANTUS PER UNIT CHARGE SQ SCH (08:24)
[2022-07-06] MEDS: ASPIRIN 81 MG ECTAB PO SCH (08:25)
[2022-07-06] MEDS: AMIODARONE 200 MG TAB PO SCH (08:25)
[2022-07-06] MEDS: FLUTICASONE/VILANTEROL 100/25MCG 14 PUFFS/INHALER INH SCH (08:26)
[2022-07-06] MEDS: MIDODRINE HCL 2.5 MG TAB PO SCH ×3 (09:17→17:13)
[2022-07-06] MEDS: diphenhydrAMINE Capsule 25 MG CAP PO PRN ×2 (09:18→18:15)
--- NOTE | 2022-07-06 09:25 | Pharmacy Report ---
Pharmacy Glycemic Short Note 2 - Date of Service July 06, 2022 - Glycemic Short BSG Results (Last 24 hours): 07/05/22 07/05/22 07/05/22 13:44 16:26 19:57 POC Glucose 161 H 175 H 188 H 07/06/22 07:33 POC Glucose 185 H OUTPATIENT ANTIDIABETIC REGIMEN: * Toujeo 0-33 units SC daily (based on BSG) * BSG < 130 mg/dL - hold * BSG 130-170 mg/dL - 1/2 dose * BSG >170 mg/dL - 33 units * Apidra 4 units SC daily with dinner * HbA1c: 7.6% (05/02/22) * However, this result is likely somewhat unreliable in ESRD patients d/t interactions between the A1c analyzing technique and high levels of urea in ESRD, reduced RBC life span, iron deficiency anemia, and EPO administration. HbA1c > 7.5% in ESRD patient may overestimate the extent of hyperglycemia in ESRD patients. ASSESSMENT: 07/06: * Patient received 6 units of basal insulin and 11 units of bolus insulin yesterday. * He had dialysis yesterday. BSGs yesterday were [phone] mg/dl, trending up by bedtime. * Fasting BSG today was 185 mg/dl, basal insulin increased to 8 units this AM. Novolog parameters tightened. 07/04: * Patient received no insulin yesterday, NPO for surgery; BSGs 100-140s * Fasting BSG elevated this morning, steroids given in OR late last evening likely contributing to elevation * Will add on small dose of basal insulin for this AM and tighten CF/CR slightly 06/30: * Ryan received 13 units of insulin yesterday, 8 units basal + 5 units bolus. BSGs were: [phone] mg/dL. * Patient became hypotensive around HD session and was transferred to the ICU for closer monitoring. Remains on Vancomycin and Zosyn. Has undergone HD sessions on 06/28, 06/29 and 06/30 now. * Fasting BSG is at goal this AM, 144 mg/dL. Will continue with reduced dose of basal from yesterday. * Tightened CF/CR slightly today to help control postprandial BSGs now that patient is eating. 06/28: * PZ is a 52 year old male transferred from [facility] early this morning * Patient reports increased generalized weakness, fatigue, and severe right hip pain. He also reports multiple falls at home. * Initial labs showed multiple abnormalities, hyperkalemia (5.7 mmol/L), hyperphosphatemia (7.5 mg/dL), anion gap of 20 w/ normal serum bicarbonate (25 mmol/L), hyperglycemia (BSG of 339 mg/dL), elevated lactate (4.1), among others. * Patient has history of uncontrolled T2DM and ESRD requiring HD (scheduled for HD session today) * Given elevated anion gap, suggested blood gas be obtained, which came back normal * IV insulin bolus ordered for hyperkalemia, also ordered HD for today * Historically, patient has required ~7-10 units of basal insulin PLAN FOR INPATIENT GLYCEMIC CONTROL: * Basal insulin * Lantus 8 units SC daily * Bolus insulin * NovoLog per scale ACHS or Q6hrs while NPO * Goal Range: Low 120 mg/dL - High 160 mg/dL * Correction Factor: 25 mg/dL/unit * Nutritional / Prandial insulin per carb ratio of 1 unit per 10 grams CHO consumed
[2022-07-06] MEDS: ACETAMINOPHEN 325 MG TAB PO PRN (09:35)
--- NOTE | 2022-07-06 09:37 | Nephrology Progress Note ---
Date of Service July 06, 2022 Assessment & Plan (1) End-stage renal disease on hemodialysis: (2) Moderate pulmonary hypertension: (3) Acute osteomyelitis of right foot: (4) Abdominal distention: Plan 52-year-old gentlemen with ESRD on hemodialysis Sunday, Sunday, Sunday, admit marilyn with right foot osteomyelitis, s/p debridement and wound vac on 07/03/22. Bone scan also concerning for osteomyelitis in left 1st toe, currently on vancomycin and Zosyn. BP has been variable but seems positional. volume status, electrolyte acceptable. Overall feeling better. --dialysis tomorrow --dose medications for EGFR less than 10. -- limit fluid intake to less than 1200 mL per day, follow low-salt diet --rt arm nephrology precaution. Admission and Anticipated Discharge Date Admission Date: June 28, 2022 Lanie Davis seen and evaluated this morning, has been feeling better, BP stable, had 3.5 L of UF during tab dialysis yesterday, tolerated well without any hypotensive episode. Review of Systems Review of Systems: Detailed review system was done and the pertinent positives and negatives mentioned above. Physical Exam Constitutional: WD/WN, vitals as above no acute distress Eyes: + anicteric sclerae Neck: normal visual inspection Respiratory: Auscultation: lungs clear to auscultation bilaterally Cardiovascular: Rate/Rhythm: regular rate and regular rhythm Heart Sounds: normal S1 and normal S2 Extremities: no edema Gastrointestinal (Abdomen): Inspection/Auscultation: + abdomen distended Percussion/Palpation: abdomen nontender and no guarding Musculoskeletal: wound vac rt foot Skin: no rashes, warm and dry Neurologic: no focal motor deficits Psychiatric: Orientation: alert and oriented x 3 Results & Data Vital Signs (Past 12 Hours) Vital Signs Temp Pulse Pulse Pulse Resp BP Pulse Ox 07/06/22 07:15 36.8 C 87 18 142/72 H 97 07/06/22 07:49 07/06/22 05:59 70 07/06/22 07:04 71 18 96 07/05/22 22:00 70 07/06/22 02:49 36.5 C 71 18 97/63 L 96 07/06/22 01:16 07/05/22 22:35 36.6 C 70 18 78/43 L 95 O2 Del Method O2 Flow Rate 07/06/22 07:15 Nasal Cannula 4 07/06/22 07:49 Nasal Cannula 4 07/06/22 05:59 07/06/22 07:04 Nasal Cannula 3 07/05/22 22:00 07/06/22 02:49 Nasal Cannula 4 07/06/22 01:16 CPAP 4 07/05/22 22:35 CPAP PG Care Time/CCT Total # of Minutes Spent Total Time Spent with Patient: Total time spent is greater than 50% in coordination of care (as documented) at patient's floor/unit and/or counseling patient: Coding Level of Care Code 78673 SUB INP/OBS CARE 235MIN Diagnoses End-stage renal disease on hemodialysis N18.6; Z99.2 Moderate pulmonary hypertension I27.20 Acute osteomyelitis of right foot M86.171 Abdominal distention R14.0
[2022-07-06] MEDS: PANTOprazole 40 MG in SYRINGE 0 ML IV SCH (11:59)
--- NOTE | 2022-07-06 12:20 | Infectious Disease Progress Nt ---
Date of Service July 06, 2022 Assessment & Plan (1) Hypotension: Plan # R foot osteomyelitis 1st toe, #3rd, 4th #Ileus #ESRD #Cirrhosis 51 yo M with h/o ESRD on HD via LaVF with recent malfunction, CAD s/p stent placement, Afib s/p AV sera ablation and BiV PPM 01/17, Poor candidate for longer AC, DM, PPVD s/p R 2nd toe amputation 12/29/21, R foot 2-5 metatarsal resection 01/27/22 with multiple excisional debridements since, recent COVID infection, home oxygen 4L d/t restrictive lung disease, recently admitted for acute osteomyelitis of right foot with GBS and MSSA as well as GBS bacteremia s/p cefazolin x 6 weeks through 06/24/22. Patient has been admitted on 06/27 with weakness and right foot drainage. Admitted in 04/2022 for right foot osteomyelitis s/p partial excision of 3rd, 4th, 5th metatarsals and excision of R foot wound 05/13/22 Bone scan positive, 05/09 superficial wound cx Group B strep and MSSA, 05/13 OR cx NGTD, completed 6 week therapy with Cefazolin 06/24. Readmitted after fall, hypotension, s/p PICC line removal with continued pain at site. KUB concerning for ileus vs SBP, Surgery consulted. Started on IV Vancomycin/Zosyn. Wound cultures from R foot (superficial) growing Corynebacterium. 06/28 Blood cultures are no growth. Bone scan increased uptake l eft first toe. This is concerning for osteomyelitis. Also uptake in 3rd/4th MT. 07/03 partial excision of 4th and 5th MT and wound debridement with application of wound vac Discussion: Patient failed therapy with 6 weeks of treatment. This may be d/t poor coverage of bacteria (prev grew MSSA, GBS) vs vascular issue vs need for better source control. Bone scan shows continued OM and new OM of 1st digit. Agree with broad abx coverage with Vancomycin and Zosyn now he is s/p OR on 07/03. Will await cultures. superificial cultures grew Corynebacterium is contaminant vs nonpathogenic bacterium. Recommend C/W Vancomycin Per discussion with primary team, Podiatry believes all osteomyelitis has been removed and source control achieved, therefore anticipate 7 days of Vancomycin post op 07/04-07/11 Cathy Gutierrez MD Infectious Diseases [facility] Admission and Anticipated Discharge Date Admission Date: June 28, 2022 Subjective This patient recommendation is based on a telemedicine consult request which was completed asynchronously through chart review and information provided by the primary physician. The patient was not seen or examined today. The evaluation is consultative in nature and all patient care and treatment decisions can either be accepted or rejected by the patient's primary hospital-based treating physician using their own independent medical judgment for their patient. Time Spent Reviewing Chart: 21 - 30 minutes Results & Data Vital Signs (Past 12 Hours) Vital Signs Temp Pulse Pulse Pulse Resp BP Pulse Ox 07/06/22 12:01 36.7 C 77 22 119/53 L 97 07/06/22 10:43 36.7 C 70 20 92/59 L 97 07/06/22 10:39 77 18 95 07/06/22 07:15 36.8 C 87 18 142/72 H 97 07/06/22 07:49 07/06/22 05:59 70 07/06/22 07:04 71 18 96 07/06/22 02:49 36.5 C 71 18 97/63 L 96 07/06/22 01:16 O2 Del Method O2 Flow Rate 07/06/22 12:01 Nasal Cannula 4 07/06/22 10:43 Nasal Cannula 4 07/06/22 10:39 Nasal Cannula 4 07/06/22 07:15 Nasal Cannula 4 07/06/22 07:49 Nasal Cannula 4 07/06/22 05:59 07/06/22 07:04 Nasal Cannula 3 07/06/22 02:49 Nasal Cannula 4 07/06/22 01:16 CPAP 4 Laboratory Results Laboratory Results - last 48 hr 07/04/22 07/04/22 07/05/22 16:12 19:49 03:41 WBC RBC Hgb Hct MCV MCH MCHC RDW Std Deviation RDW Coeff of Octavio Plt Count MPV Absolute Nucleated RBC Nucleated RBC % (auto) Sodium Potassium Chloride Carbon Dioxide Anion Gap BUN Creatinine Est Cr Clr Drug Dosing Est GFR ( Amer) Est GFR (Non-Af Amer) BUN/Creatinine Ratio Glucose POC Glucose 245 H 167 H 167 H Calcium Random Vancomycin 07/05/22 07/05/22 07/05/22 05:28 05:28 05:28 WBC 9.52 RBC 3.88 L Hgb 10.9 L Hct 35.5 L MCV 91.5 MCH 28.1 MCHC 30.7 L RDW Std Deviation 64.3 H RDW Coeff of Octavio 19.7 H Plt Count 210 MPV 10.9 Absolute Nucleated RBC 0.02 Nucleated RBC % (auto) 0.2 Sodium 132 L Potassium 4.3 Chloride 92 L Carbon Dioxide 24 Anion Gap 16 H BUN 41 H Creatinine 5.59 H* D Est Cr Clr Drug Dosing 17.3 Est GFR ( Amer) 12.3 Est GFR (Non-Af Amer) 10.6 BUN/Creatinine Ratio 7.3 L Glucose 155 H POC Glucose Calcium 8.1 L Random Vancomycin 15.9 07/05/22 07/05/22 07/05/22 07:13 13:44 16:26 WBC RBC Hgb Hct MCV MCH MCHC RDW Std Deviation RDW Coeff of Octavio Plt Count MPV Absolute Nucleated RBC Nucleated RBC % (auto) Sodium Potassium Chloride Carbon Dioxide Anion Gap BUN Creatinine Est Cr Clr Drug Dosing Est GFR ( Amer) Est GFR (Non-Af Amer) BUN/Creatinine Ratio Glucose POC Glucose 155 H 161 H 175 H Calcium Random Vancomycin 07/05/22 07/06/22 07/06/22 19:57 07:33 11:06 WBC RBC Hgb Hct MCV MCH MCHC RDW Std Deviation RDW Coeff of Octavio Plt Count MPV Absolute Nucleated RBC Nucleated RBC % (auto) Sodium Potassium Chloride Carbon Dioxide Anion Gap BUN Creatinine Est Cr Clr Drug Dosing Est GFR ( Amer) Est GFR (Non-Af Amer) BUN/Creatinine Ratio Glucose POC Glucose 188 H 185 H 222 H Calcium Random Vancomycin Microbiology 07/03/22 Unknown Toe,Right Fifth Gram Stain - Final 07/03/22 Unknown Toe,Right Fifth Aerobic and Anaerobic Culture - Preliminary Corynebacterium species 06/28/22 04:53 Blood Aerobic Blood Culture - Final No growth in Aerobic bottle after 5 days. 06/28/22 04:53 Blood Anaerobic Blood Culture - Final 06/28/22 04:53 Blood Aerobic Blood Culture - Final No growth in Aerobic bottle after 5 days. 06/28/22 04:53 Blood Anaerobic Blood Culture - Final 06/28/22 17:16 Foot,Right Gram Stain - Final 06/28/22 17:16 Foot,Right Wound Culture - Final Corynebacterium species
[2022-07-06] MEDS ORDERED: OPTIRAY 320 100ml IV ONE (14:09)
--- NOTE | 2022-07-06 14:48 | CT Scan Report ---
ABDOMEN AND PELVIS CT WITH IV CONTRAST CT DOSE: 1201.65 mGy.cm HISTORY: worsening abd and rectal pain TECHNIQUE: Multiaxial CT images of the abdomen and pelvis were performed following the use of intrave nous contrast. A dose lowering technique was utilized adhering to the principles of ALARA. COMPARISON STUDY: Abdomen and pelvis CT 02/13/2020. FINDINGS: Trace bilateral pleural effusions have improved. The heart remains enlarged. Pacemaker wire s are again noted. Interlobular septal thickening and patchy groundglass densities at the lung bases consistent with mild pulmonary edema. Bibasilar linear densities likely represent subsegmental atelec tasis. No pneumoperitoneum. No pneumatosis. No suspicious lytic or blastic osseous lesions. Bilateral L5 spondylolysis with associated grade 1 anterolisthesis. There are healing/healed right anterior si xth and seventh rib fractures. Additional, healed bilateral rib fractures. Mild body wall edema is no marilyn. Heterogeneous enhancement within the liver with a nodular contour consistent with cirrhosis. The main portal vein appears patent. The spleen is top normal in size. Normal adrenal glands, pancreas, gallbladder. There is a 2.2 cm hypodense lesion within the liver which favors a hepatic cyst. No retr operitoneal lymphadenopathy. Severe calcified plaque within the major arterial structures. Normal darline iber abdominal aorta. There is moderate bilateral renal atrophy again noted. No hydronephrosis. Focal peripheral hypodensities within the posterior aspect of the spleen is likely due to expected heterog eneous opacification of the spleen given the timing of contrast. Splenic infarcts could also have the bladder is unremarkable. Prostate gland is normal in size. A few colonic diverticula. No evidence fo r acute diverticulitis. No bowel wall thickening or obstruction. Normal appendix. Fluid-filled nondil ated loops of large or small bowel. This could represent a diarrheal illness. Small to moderate amoun t of ascites is noted. A similar appearance. IMPRESSION: 1. Cirrhotic liver with a small to moderate amount of ascites. 2. Fluid-filled nondilated loops of large and small bowel. This could represent a diarrheal illness. 3. No bowel wall thickening or obstruction. 4. Normal appendix. 5. Peripheral hypodensities within the posterior spleen. This could be due to the timing of contrast or possibly splenic infarcts. Clinical correlation recommended to evaluate for left upper quadrant pa in. 6. Cardiomegaly with mild interstitial pulmonary edema. 7. Extensive vascular calcifications. ACT 112: Negative or not required by law. Electronically signed by: Erwin Mitchell M.D. 07/06/2022 2:46 PM
[2022-07-06 15:18] LABS: Basophils # (auto) 0.07 K/uL (0-0.2); Basophils % (auto) 0.6 %; Eosinophils # (auto) 0.11 K/uL (0-0.50); Eosinophils % (auto) 0.9 %; Immature Granulocytes # (auto) 0.06 K/uL (0.01-0.20); Immature Granulocytes % (auto) 0.5 %; Lymphocytes % (auto) 7.9 %; Mean Corpuscular Hemoglobin 27.8 pg (25.0-34.0); Mean Corpuscular Hgb Conc 30.6 g/dL (32.0-36.0); Mean Corpuscular Volume 90.9 fL (80.0-100.0); Monocytes # (auto) 1.15 K/uL (0.11-0.59); Monocytes % (auto) 9.1 %; Neutrophils # (auto) 10.26 K/uL (1.40-6.50); Nucleated RBC # (auto) 0.02 K/uL (0-0.12); Nucleated RBC % (auto) 0.2 %; Platelet Count 218 K/uL (130-400); RDW Coefficient of Variation 19.6 % (11.5-14.5); RDW Standard Deviation 64.3 fL (36.4-46.3); Red Blood Count 3.96 M/uL (4.70-6.10); White Blood Count 12.65 K/ul (4.8-10.8)
[2022-07-06 15:56] LABS: Calcium 8.5 mg/dl (8.6-10.3); Creatinine Clr Calc Pharmacy 17.5 ml/min; Est GFR (African American) 12.7 ml/min; Est GFR (Non-African American) 10.9 ml/min; Potassium 3.8 mmol/L (3.5-5.1)
[2022-07-06] MEDS: ALBUT/IPRATROP 3MG/0.5MG NEB 3 ML VIAL NEB PRN (19:09)
[2022-07-06] MEDS: MONTELUKAST SODIUM 10 MG TABLET PO SCH (20:35)
[2022-07-06] MEDS: APIXABAN 5 MG TABLET PO SCH (22:08)
[2022-07-06] MEDS: ATORVASTATIN 40 MG TAB PO SCH (22:08)
[2022-07-07] MEDS: ALBUMIN 25% 25 GM/100 ML VIAL IV SCH ×2 (00:35→04:41)
[2022-07-07 06:21] LABS: Hematocrit (blood only) 34.8 % (42.0-52.0); Hemoglobin 10.6 g/dl (14.0-18.0); Mean Corpuscular Hemoglobin 27.8 pg (25.0-34.0); Mean Corpuscular Hgb Conc 30.5 g/dL (32.0-36.0); Mean Corpuscular Volume 91.3 fL (80.0-100.0); Mean Platelet Volume 10.9 fL (9.4-12.4); Nucleated RBC # (auto) 0.02 K/uL (0-0.12); Nucleated RBC % (auto) 0.2 %; Platelet Count 197 K/uL (130-400); RDW Coefficient of Variation 19.7 % (11.5-14.5); RDW Standard Deviation 64.6 fL (36.4-46.3); Red Blood Count 3.81 M/uL (4.70-6.10); White Blood Count 10.53 K/ul (4.8-10.8)
[2022-07-07 06:35] LABS: BUN Creatinine Ratio 7.8 (10-20); Calcium 8.1 mg/dl (8.6-10.3); Creatinine Clr Calc Pharmacy 15.7 ml/min; Est GFR (African American) 10.9 ml/min; Est GFR (Non-African American) 9.4 ml/min; Potassium 3.8 mmol/L (3.5-5.1)
--- NOTE | 2022-07-07 07:45 | Hospitalist Progress Note ---
Date of Service July 07, 2022 Assessment & Plan (1) Infection of right foot: Plan: In patient w/ diabetes, Hx osteomyelitis of right root, and recent admission for Group B streptococcus bacteremia and had partial excision 3/4/5th metatarsals and excision right foot wound w/ Dr Rust on 05/13 Culture growing Corynebacterium, discussed with ID Dr. Gutierrez 07/06, continue vancomycin through 07/11 (can have 1g on HD days) Podiatry consulted, s/p partial excision of 4th and 5th metatarsals, wound debridement with application of wound vac with Dr Rust 07/03/[address] Rust there is no clinical evidence of OM in the 1st toe and no treatment planned WBC 10.53 today, no evidence of worsening infection. Blood cultures remain NGTD Ultimately, patient with discharge home with care by caregiver with services, possibly tomorrow if continues to be clinically stable. (2) Hypotension: Plan: Hypotensive with increased oxygen requirements and respiratory distress AM 06/29 in setting of developing sepsis likely 2nd to foot infection/recent osteomyelitis. Lactic elevated on admission, improved on repeats CTA negative for PE, remains on Eliquis 5mg BID Remains on midodrine 5mg TID, 10mg dose in AM w/ HD; will continue this on discharge given hypotension several times this admission Continue 1200mL fluid restriction ABx/ID/podiatry on consult for R foot infection as outlined HCTZ stopped given he does not make urine at baseline and decreased risk of hypotension at discharge (3) End-stage renal disease on hemodialysis: Plan: Patient ESRD on HD q M/W/, nephrology following while admitted With mild ascites, no worsening hypoxia to suggest worsening volume overload Continue fluid restriction, dialysis/DM 2/CHF diet (4) Respiratory distress: Plan: 2nd to sepsis as well as volume overloaded state CTA negative for PE Chest x-ray still with mild pulmonary edema, given an uric state will have to manage with dialysis Currently back to his usual 4LNC at baseline BiPAP HS, recommend continued use on discharge however patient is relatively noncompliant with this despite urging Continue nebs/pulmonary toilet (5) Abdominal distention: Plan: CTAP with IV contrast 07/06/2022 without evidence of acute pathology to explain abdominal pain in lower quadrants. Some known ascites but not worse compared to previously known. Perhaps also due to bowel movements, continue bowel regimen. (6) Ileus: Plan: No evidence of such on imaging. (7) Diabetes mellitus type 2, uncontrolled: Plan: Last A1c 7.6 in April 2022, continue insulin with glycemic management consult. Recommended to patient that in order to improve wound healing and decrease risk of further amputations/diabetic foot wounds, will need to have good glycemic control and monitor his carbohydrate intake at home. We will also need close follow-up with his PCP for regimen adjustment if necessary. (8) Cirrhosis of liver with ascites: Plan: Small-mod ascites on US abd prior day in stay, confirmed on CTAP 07/06/2022 HD as outlined above Will need follow-up with gastroenterology outpatient/hepatology (9) PAF (paroxysmal atrial fibrillation): Plan: Continue Amiodarone 200mg po qAM Continue apixaban 5mg po BID (10) CAD (coronary artery disease): Plan: Patient with PCI to RCA in 2017. He had a cardiac catheterization in July 2019 with patent stent. Cardiac catheterization March 2021 with in-stent restenosis of the RCA with severe disease, chronically occluded OM3. No acute intervention. Patient on medical management - has been unable to tolerate beta blockers due to hypotension. He follows with Cardiology - Dr. Norton at [facility]. Continue ASA, atorvastatin (11) GERD (gastroesophageal reflux disease): Plan: Chronic. Stable. Patient on Omeprazole at home Protonix 40mg daily while inpatient (12) Hyperlipidemia: Plan: Chronic. Stable Continue Atorvastatin 40mg po qHS Plan Home with home health tomorrow. Antibiotics will be vancomycin 1g daily with dialysis days (x1 dose, Monday 07/10) Admission and Anticipated Discharge Date Admission Date: June 28, 2022 Subjective Patient without any acute events overnight. He reports itching at his scabbed areas, has seen dermatology in the past for these and has biopsies pending. Takes Benadryl which helps with the itching. Still with some lower abdominal discomfort but much improved after several bowel movements this morning. Breathing feels about the same as yesterday, saturating well on his 4 L nasal cannula. Review of Systems Review of Systems: All systems reviewed & are unremarkable except as noted in Subjective Physical Exam Constitutional: WD/WN, vitals as above Respiratory: normal respiratory effort, lungs clear to auscultation Cardiovascular: RRR, no murmur, no edema Gastrointestinal (Abdomen): Rectal Exam: normal visual inspection of rectum; no rectal mass, no hemorrhoids, no rectal fissure and no rectal lesions abdomen soft, protuberant, mildly tender bilateral lower quadrants Skin: wound vac to right foot Bilateral lower extremities and upper extremities with areas of scabbing, difficult to appreciate any underlying rash due to excoriation and picking by patient Psychiatric: A+Ox3, euthymic affect Results & Data Results & Data Vital Signs (Past 12 Hours) Vital Signs Temp Pulse Pulse Resp BP Pulse Ox O2 Del Method 07/07/22 03:27 36.7 C 69 18 97 CPAP 07/06/22 21:00 Nasal CPAP 07/06/22 22:01 70 07/07/22 02:35 112/78 07/06/22 23:05 36.7 C 70 18 99 CPAP 07/06/22 23:30 78/38 L 07/06/22 23:21 77/45 L O2 Flow Rate 07/07/22 03:27 07/06/22 21:00 4 07/06/22 22:01 07/07/22 02:35 07/06/22 23:05 07/06/22 23:30 07/06/22 23:21 PG Care Time/CCT Total # of Minutes Spent Total Time Spent with Patient: Total time spent is greater than 50% in coordination of care (as documented) at patient's floor/unit and/or counseling patient: Coding Level of Care Code 23197 SUB INP/OBS CARE 3/50MIN Diagnoses Infection of right foot L08.9 Hypotension I95.9 End-stage renal disease on hemodialysis N18.6; Z99.2 Respiratory distress R06.03 Abdominal distention R14.0 Ileus K56.7 Diabetes mellitus type 2, uncontrolled E11.65 Glycemic state: with hyperglycemia Cirrhosis of liver with ascites K74.60; R18.8 PAF (paroxysmal atrial fibrillation) I48.0 CAD (coronary artery disease) I25.10 Associated angina: without angina Coronary Disease-Associated Artery/Lesion type: [place] artery [place] vs. transplanted heart: [place] heart GERD (gastroesophageal reflux disease) K21.9 Hyperlipidemia E78.5 (7) Diabetes mellitus type 2, uncontrolled Glycemic state: with hyperglycemia Qualified Code(s): E11.65 - Type 2 diabetes mellitus with hyperglycemia (10) CAD (coronary artery disease) Associated angina: without angina Coronary Disease-Associated Artery/Lesion type: [place] artery [place] vs. transplanted heart: [place] heart Qualified Code(s): I25.10 - Atherosclerotic heart disease of [place] coronary artery without angina pectoris
[2022-07-07] MEDS: INSULIN ASPART PER UNIT CHARGE SC SCH ×4 (08:38→20:23)
[2022-07-07] MEDS: LANTUS PER UNIT CHARGE SQ SCH (08:39)
[2022-07-07] MEDS ORDERED: MIDODRINE HCL 10 MG TAB PO STA (08:58)
[2022-07-07] MEDS: APIXABAN 5 MG TABLET PO SCH ×2 (09:00→20:04)
[2022-07-07] MEDS: MIDODRINE HCL 2.5 MG TAB PO SCH ×3 (09:00→17:42)
[2022-07-07] MEDS: diphenhydrAMINE Capsule 25 MG CAP PO PRN ×2 (09:00→18:01)
[2022-07-07] MEDS: AMIODARONE 200 MG TAB PO SCH (09:01)
[2022-07-07] MEDS: FLUTICASONE/VILANTEROL 100/25MCG 14 PUFFS/INHALER INH SCH (09:01)
[2022-07-07] MEDS: ASPIRIN 81 MG ECTAB PO SCH (09:01)
--- NOTE | 2022-07-07 10:03 | Nephrology Progress Note ---
Date of Service July 07, 2022 Assessment & Plan (1) End-stage renal disease on hemodialysis: (2) Moderate pulmonary hypertension: (3) Acute osteomyelitis of right foot: (4) Abdominal distention: Plan 52-year-old gentlemen with ESRD on hemodialysis Sunday, Sunday, Sunday, admit marilyn with right foot osteomyelitis, s/p debridement and wound vac on 07/03/22. Bone scan also concerning for osteomyelitis in left 1st toe, currently on vancomycin and Zosyn. BP has been variable but seems positional. volume status, electrolyte acceptable. Overall feeling better. --dialysis today, although he seems at his EDW, will try to challenge as BP tolerates --dose medications for EGFR less than 10. -- limit fluid intake to less than 1200 mL per day, follow low-salt diet --rt arm nephrology precaution. --plan to continue Vanco until 07/11, waiting home DC Admission and Anticipated Discharge Date Admission Date: June 28, 2022 Lanie Davis seen and evaluated this morning,denies any concerns, getting wound vac changed, BP stable, Electrolyte , volume status acceptable. Review of Systems Review of Systems: Detailed review system was done and the pertinent positives and negatives mentioned above. Physical Exam Constitutional: WD/WN, vitals as above no acute distress Eyes: + anicteric sclerae Neck: normal visual inspection Respiratory: Auscultation: lungs clear to auscultation bilaterally Cardiovascular: Rate/Rhythm: regular rate and regular rhythm Heart Sounds: normal S1 and normal S2 Extremities: no edema Gastrointestinal (Abdomen): Inspection/Auscultation: + abdomen distended Percussion/Palpation: abdomen nontender and no guarding Musculoskeletal: wound vac rt foot Skin: no rashes, warm and dry Neurologic: no focal motor deficits Psychiatric: Orientation: alert and oriented x 3 Results & Data Vital Signs (Past 12 Hours) Vital Signs Temp Pulse Pulse Resp BP Pulse Ox O2 Del Method 07/07/22 07:56 36.4 C L 71 18 114/56 L 98 Nasal Cannula 07/07/22 03:27 36.7 C 69 18 97 CPAP 07/06/22 22:01 70 07/07/22 02:35 112/78 07/06/22 23:05 36.7 C 70 18 99 CPAP 07/06/22 23:30 78/38 L 07/06/22 23:21 77/45 L O2 Flow Rate 05/12/23 07:56 4 07/07/22 03:27 07/06/22 22:01 07/07/22 02:35 07/06/22 23:05 07/06/22 23:30 07/06/22 23:21 PG Care Time/CCT Total # of Minutes Spent Total Time Spent with Patient: Total time spent is greater than 50% in coordination of care (as documented) at patient's floor/unit and/or counseling patient: Coding Level of Care Code 02830 SUB INP/OBS CARE 3/50MIN Diagnoses End-stage renal disease on hemodialysis N18.6; Z99.2 Moderate pulmonary hypertension I27.20 Acute osteomyelitis of right foot M86.171 Abdominal distention R14.0
--- NOTE | 2022-07-07 10:09 | Orthopedic Progress Note ---
Date of Service July 06, 2022 Assessment & Plan (1) Infection of right foot: Plan: Patient seen and evaluated. Wound Vac intact running continuous 125mmHg. Patient to continue negative pressure therapy. Wound Vac and forefoot ulcer dressing changes M, W, F. Patient is non weight bearing to Right foot. Reviewed preliminary Micro results from 07/03/22. Awaiting final cultures for preferential antibiotic coverage per ID. Will continue to follow while in house. Plan Patient seen, evaluated, and treated. Wound examined. At this time Patient would benefit from OR debridement and application of wound vac. All questions anwswered. Admission and Anticipated Discharge Date Admission Date: June 28, 2022 Subjective Patient seen at bedside. Wound Vac negative pressure therapy applied to right foot running intact continuous 125mmHg. Review of Systems Review of Systems: All systems reviewed & are unremarkable except as noted in Subjective Physical Exam Constitutional: + frail appearing, cooperative and comfortable Eyes: normal visual jacinto by confrontation Neck: trachea midline Respiratory: normal respiratory effort Cardiovascular: Rate/Rhythm: regular rate and regular rhythm Musculoskeletal: Ankle: + deformity (Right fourth and fifth ray amputation) Skin: + wound Psychiatric: Orientation: alert and oriented x 3 Results & Data Vital Signs (Past 12 Hours) Vital Signs Temp Pulse Resp BP Pulse Ox O2 Del Method O2 Flow Rate 07/07/22 07:56 36.4 C L 71 18 114/56 L 98 Nasal Cannula 4 07/07/22 03:27 36.7 C 69 18 97 CPAP 07/07/22 02:35 112/78 07/06/22 23:05 36.7 C 70 18 99 CPAP 07/06/22 23:30 78/38 L 07/06/22 23:21 77/45 L Diagnostic Findings Name: HESHAM PHILLIPS Acct: [id number] Status: ADM IN : 1970 [facility] [place] Date: 06/28/22 Age: 52 Sex: M Dis Date: Loc: [address]/Bed: N285-1 Spec: [id number] Collected: 07/03/22-UNK Received: 07/03/22-[address]: Edilson Rust, DPM, MS Copy To: Taya Randall DAlyOAly Source: Toe,Right Fifth OV Order: Ordered: Aer/Isha Cult/Sm Comments: Comment right fifth metatarsal Procedure Result Verified Site Gram Stain Final 07/03/22 Gram Stain Result Few WBCs Seen No Organisms Seen Aero/Isha Cult Preliminary 07/07/22 Organism 1 Corynebacterium species Quantity Few Sens No Sensitivities to Follow +MixWound Plus Low Counts of Probable Skin Laurie
--- NOTE | 2022-07-07 10:56 | Pharmacy Report ---
Pharmacy PK ABX Note - Date of Service July 07, 2022 - Assessment and Plan Assessment 52 year old M receiving empiric vancomycin and Zosyn for treatment of right foot osteomyelitis. Pertinent microbiologic data includes: right foot cultures growing group B Strep, MSSA, and Cutibacterium acnes in April 2022 w/ history of Pseudomonas aeruginosa in right foot 12/2021. R foot culture on 06/28 with corynebacterium species, potential contaminant per notes. Patient went to OR 07/03 for further debridement. Patient has T2DM and ESRD requiring HD/patient anuric. ID consulted. Day #10 of antimicrobial therapy. Wound culture from R toe on 07/03 grew Corynebacterium species also. Plan is for Vancomycin to continue for 7 days post-op per ID-- that is 07/04 through 07/11/22. Plan Vancomycin * Pre-HD level today ~15.4 mcg/ml - will dose with 500 mg of vancomycin this afternoon after dialysis * Plan to reorder next level prior to next HD session / planning for MWF dialysis per notes Zosyn * 4.5 g IV q12h -appropriate for patient on HD Pharmacy will continue to follow and will adjust dose/frequency as necessary. Thank you.
[2022-07-07] MEDS: ACETAMINOPHEN 325 MG TAB PO PRN (14:42)
[2022-07-07] MEDS: PANTOprazole 40 MG in SYRINGE 0 ML IV SCH (14:51)
[2022-07-07] MEDS ORDERED: VANCOMYCIN HCL 500 MG in DEXTROSE 5% 100 ML IV ONE (16:00)
--- NOTE | 2022-07-07 17:04 | XRay Report ---
XR chest 1V portable HISTORY: dyspnea COMPARISON: Chest 07/01/2022. FINDINGS: There are low lung volumes. The cardiac silhouette remains enlarged. There is a right-sided pacemaker again noted. Progressive interstitial/vascular thickening consistent with mild pulmonary e meron. Trace bilateral pleural effusions. IMPRESSION: Interval progression of the mild pulmonary edema. ACT 112: Negative or not required by law. Electronically signed by: Erwin Mitchell M.D. 07/07/2022 5:03 PM
[2022-07-07] MEDS: MONTELUKAST SODIUM 10 MG TABLET PO SCH (20:04)
[2022-07-07] MEDS: ATORVASTATIN 40 MG TAB PO SCH (20:04)
--- NOTE | 2022-07-08 07:12 | Discharge Summary ---
Discharge Summary Date of Service July 08, 2022 Admission HPI Per Admitting Provider Ryan Walker is a 52yo male with multiple medical comorbidities to include ESRD on HD q M/W/F (last full session 06/26/22), DM, KISHAN, CHF, HTN, HLP and Cirrhosis presenting from [facility] with complaint of weakness, fatigue, pain at right PICC line site and hyperglycemia. Patient was recently admitted to [facility] from 05/09/22 - 05/17/22 after presenting with sepsis secondary to right foot osteomyelitis with group B streptococcus bacteremia. Patient had a PICC line placed and was treated with Cefazolin 1gm IV daily x 6 weeks. His antibiotic end date was 06/24/22. Patient reports he received his antibiotics as prescribed with home health and assistance from his significant other. He presented to [facility] on 06/27/22 with complaint of pain at the RUE PICC line as well as non-function of the line. Also with pain in the right hip. He had the PICC line removed. CT of the hip performed which revealed osteoarthritis. He was found to be hyperglycemic with BSG of 498. Also with borderline low BP of 99/51. Patient requested transfer to [facility] as he was just admitted here. Also requires scheduled HD - no dialysis at [facility] Patient reports intermittent dizziness, ongoing weakness. Constipation. Also with baseline SOB. He denies chest pain, nausea, vomiting, diarrhea At [place] received: Vancomycin Ceftriaxone NSS x 1500mL Benadryl 5u insulin Admission Exam Per Admitting Provider General: chronically ill appearing male, NAD, AA&O x 4 Skin: multiple lesions on bilateral LE with eschar, biopsy site on medial left leg with dressing in place HEENT: NC/AT, PERRL, EOMI, anicteric sclera, conjunctiva without injection, external ear normal to inspection and nontender, nares patent, slightly dry mucus membranes, dentition intact, no oropharyngeal lesions, neck supple, trachea midline, no LAD, no thyromegaly, no JVD Heart: +S1/S2, regular, no m/r/g Lungs: equal air entry bilaterally, diminished bases, no rales/rhonchi/wheezes Abd: +BS, soft, distended with bulging flanks, no masses/organomegaly Ext: RLE with dressing in place, LLE with bandage on tran, scattered pustules and lesions on bilateral LE with eschar, no active bleeding or evidence of secondary infection Midline catheter present RUE, AV fistula LUE with palpable thrill Neuro: nonfocal, patient AA&O x 4, speech intact, no facial droop, moving all extremities on command with equal strength 06/30 Principal Dx & Hospital Course #1 = Principal Diagnosis (1) Infection of right foot: In patient w/ diabetes, Hx osteomyelitis of right root, and recent admission for Group B streptococcus bacteremia and had partial excision 04/29/ metatarsals and excision right foot wound w/ Dr Rust on 05/13 Culture growing Corynebacterium, discussed with ID Dr. Gutierrez 07/06, continue vancomycin through 07/11 Podiatry consulted, s/p partial excision of 4th and 5th metatarsals, wound debridement with application of wound vac with Dr Rust 07/03/[address] Rust there is no clinical evidence of OM in the 1st toe and no treatment planned, follow up outpatient WBC 10.53 07/07, no evidence of worsening infection. Blood cultures remain NGTD Discharged home with services (2) Hypotension: Resolved Hypotensive with increased oxygen requirements and respiratory distress AM 06/29 in setting of developing sepsis likely 2nd to foot infection/recent osteomyelitis. Lactic elevated on admission, improved on repeats CTA negative for PE, remains on Eliquis 5mg BID Continue midodrine 5mg TID on discharge Continue 1200mL fluid restriction HCTZ stopped given he does not make urine at baseline and decreased risk of hypotension at discharge (3) End-stage renal disease on hemodialysis: Patient ESRD on HD MWF, nephrology followed while admitted With mild ascites, no worsening hypoxia to suggest worsening volume overload Continue fluid restriction, dialysis diet (4) Cirrhosis of liver with ascites: Small-mod ascites on US abd prior day in stay, confirmed on CTAP 07/06/2022 HD as outlined above Will need follow-up with gastroenterology outpatient/hepatology, information provided to patient/partner (5) Respiratory distress: Resolved 2nd to sepsis as well as volume overloaded state CTA negative for PE Chest x-ray with mild pulmonary edema, given an uric state will have to manage with dialysis Back to his usual 4LNC on day of discharge BiPAP HS, recommend continued use on discharge however patient is relatively noncompliant with this despite urging (6) Abdominal distention: CTAP with IV contrast 07/06/2022 without evidence of acute pathology to explain abdominal pain in lower quadrants. Some known ascites but not worse compared to previously known. Perhaps also due to bowel movements, continue bowel regimen. (7) Ileus: No evidence of such on imaging. (8) Diabetes mellitus type 2, uncontrolled: Last A1c 7.6 in April 2022, resume home regimen. Recommended to patient that in order to improve wound healing and decrease risk of further amputations/diabetic foot wounds, will need to have good glycemic control and monitor his carbohydrate intake at home. We will also need close follow-up with his PCP for regimen adjustment if necessary. (9) PAF (paroxysmal atrial fibrillation): Continue Amiodarone 200mg po qAM Continue apixaban 5mg po BID (10) CAD (coronary artery disease): Patient with PCI to RCA in 2017. He had a cardiac catheterization in July 2019 with patent stent. Cardiac catheterization March 2021 with in-stent restenosis of the RCA with severe disease, chronically occluded OM3. No acute intervention. Patient on medical management - has been unable to tolerate beta blockers due to hypotension. He follows with Cardiology - Dr. Norton at [facility]. Continue ASA, atorvastatin (11) GERD (gastroesophageal reflux disease): Continue PPI (12) Hyperlipidemia: Continue Atorvastatin 40mg po qHS Discharge Exam Constitutional WD/WN, vitals as above Respiratory normal respiratory effort, lungs clear to auscultation Cardiovascular RRR, no murmur, no edema Psychiatric A+Ox3, euthymic affect Updated Medication List Medication Instructions Recorded Confirmed Type miscellaneous medical supply 1 ea miscellaneous DAILY #1 ea 03/08/21 06/26/22 Rx acetaminophen 500 mg capsule 1,000 mg PO TID PRN Pain #180 caps 11/21/21 06/28/22 Rx montelukast 10 mg tablet 10 mg PO HS 01/25/22 06/28/22 History insulin glargine U-300 conc 300 33 unit (0.11 mL) subcut QAM #4.5 02/22/22 06/28/22 Rx unit/mL (1.5 mL) subcutaneous pen mL (Toujeo SoloStar U-300 Insulin) cholecalciferol (vitamin D3) 125 125 mcg PO DAILY 03/16/22 06/26/22 History mcg (5,000 unit) capsule amiodarone 200 mg tablet 200 mg PO QAM #90 tabs 03/21/22 06/28/22 Rx apixaban 5 mg tablet (Eliquis) 5 mg PO BID #180 tabs 03/21/22 06/28/22 Rx atorvastatin 40 mg tablet 40 mg PO HS #90 tabs 03/21/22 06/28/22 Rx fluticasone furoate 100 1 inh inhalation DAILY 04/04/22 06/28/22 History mcg-vilanterol 25 mcg/dose inhalation powder (Breo Ellipta) omeprazole 20 mg tablet,delayed 20 mg PO DAILY 04/04/22 06/28/22 History release albuterol sulfate 90 mcg/actuation 2 puff inhalation Q6H PRN 05/02/22 06/28/22 Rx aerosol inhaler shortness of breath or wheezing #18 grams Hospital Bed Homecare #1 ea 05/25/22 06/26/22 Rx ondansetron 4 mg disintegrating 4 mg PO Q8H PRN nausea and 06/07/22 06/26/22 Rx tablet vomiting #30 tabs betamethasone valerate 0.1 % 1 applic topical BID PRN skin 06/08/22 06/28/22 Rx topical cream irritation #15 grams insulin glulisine U-100 100 4 unit (0.04 mL) subcut ONCE #1 box 06/14/22 06/28/22 Rx unit/mL subcutaneous pen (Apidra SoloStar U-100 Insulin) aspirin 81 mg chewable tablet 81 mg PO QAM 06/20/22 06/28/22 History ranolazine 500 mg tablet,extended 500 mg PO BID 06/20/22 06/26/22 History release,12 hr midodrine 5 mg tablet 5 mg PO TID #90 tabs 07/07/22 Rx Hospital Stay Data Consultations 06/28/22 04:08 Consult Nephrology Routine 06/28/22 05:22 Radiology Transfer Of Images Routine 06/28/22 14:48 Consult Infectious Diseases Routine 06/29/22 11:47 Consult General Surgery Routine Consult Inbound Call Center Representative Routine 07/01/22 13:16 Consult Gastroenterology Routine Procedures Performed Operation Date: 07/03/22 09:40 Actual Procedures p Right Foot Debridement with Application of Wound Vac(Right) - Edilson Ruts DPM, MS Diagnostic Imagining Performed 06/29/22 08:27 US abdomen ltd ascites Urgent 06/29/22 10:42 CT angio chest PE protocol Stat 07/06/22 13:28 CT abd pelvis IV con only Urgent Pending Results Patient Have Any Pending Studies at Discharge: No Discharge Instructions Given to Patient (Per Discharging Provider) You are admitted to the hospital for evaluation and management of low blood pressures and severe infection of the toes in your right foot. You had surgery by Dr. Rust, and were given IV antibiotics with improvement in your symptoms. You were also given a medication called midodrine, which is a medication given to dialysis patients in order to keep the blood pressure is up. Patients who are on dialysis often will have difficulty with low blood pressures, and midodrine can combat this. This was sent to your typical pharmacy, to be taken 3 times daily. You should discuss with your celery tier continuing this medication, as I have sent a 30-day supply. STOP taking your hydrochlorothiazide and your amlodipine for now until seen by your kidney doctors. Your blood pressure was low, so they were held for now. Please call the GI doctor office number provided on this paperwork to follow up the findings of cirrhosis on your imaging studies. Please also talk about this with your family doctor. You have an appointment with her on 07/18, details are listed above. It is extremely important that you have good blood sugar control to help with wound healing. I recommend you decrease the following foods: cookies, cakes, pastries, pasta, potatoes, bread, full sugar sodas, full sugar juices/teas. T hese things are all higher in carbs or sugars which can make your blood sugar spike. Please also follow up your blood sugars with your family doctor. Total Time Total Time Spent Total Time Spent (In Minutes): 35 min Coding Level of Care Code 72217 INP/OBS DISCH >30 MIN Diagnoses Infection of right foot L08.9 Hypotension I95.9 End-stage renal disease on hemodialysis N18.6; Z99.2 Cirrhosis of liver with ascites K74.60; R18.8 Respiratory distress R06.03 Abdominal distention R14.0 Ileus K56.7 Diabetes mellitus type 2, uncontrolled E11.65 Glycemic state: with hyperglycemia PAF (paroxysmal atrial fibrillation) I48.0 CAD (coronary artery disease) I25.10 Associated angina: without angina Coronary Disease-Associated Artery/Lesion type: [place] artery [place] vs. transplanted heart: [place] heart GERD (gastroesophageal reflux disease) K21.9 Hyperlipidemia E78.5
[2022-07-08] MEDS: MIDODRINE HCL 2.5 MG TAB PO SCH ×2 (07:44→11:37)
[2022-07-08] MEDS: ASPIRIN 81 MG ECTAB PO SCH (07:44)
[2022-07-08] MEDS: APIXABAN 5 MG TABLET PO SCH (07:45)
[2022-07-08] MEDS: FLUTICASONE/VILANTEROL 100/25MCG 14 PUFFS/INHALER INH SCH (07:45)
[2022-07-08] MEDS: AMIODARONE 200 MG TAB PO SCH (07:46)
[2022-07-08] MEDS: INSULIN ASPART PER UNIT CHARGE SC SCH ×2 (08:43→12:23)
[2022-07-08] MEDS: LANTUS PER UNIT CHARGE SQ SCH (08:44)
[2022-07-08] MEDS: ACETAMINOPHEN 325 MG TAB PO PRN (09:20)
[2022-07-08] MEDS: PANTOprazole 40 MG in SYRINGE 0 ML IV SCH (11:37)
--- NOTE | 2022-07-08 12:12 | Nephrology Progress Note ---
Date of Service July 08, 2022 Assessment & Plan (1) End-stage renal disease on hemodialysis: Plan: ESRD on hemodialysis Sunday, Sunday, Sunday. Resume prior outpatient Rx post discharge. Volume status acceptable. Electrolytes controlled. Adequate clearance with treatment. Medications appropriately dosed for kidney function. Vanco levels monitored weekly. (2) Infection of right foot: Plan: Culture growing Corynebacterium. Plan to continue vancomycin through 07/11 (1g MWF post HD). s/p partial excision of 4th and 5th metatarsals, wound debridement, and application of wound vac with Dr Rust 07/03/22. (3) Hypotension: Plan: BP acceptable. Continue midodrine as Rx. Admission and Anticipated Discharge Date Admission Date: June 28, 2022 Subjective No acute events overnight. No complaints this AM. Ryan states that he tolerated dialysis well yesterday. No complications with treatment. Anticipates discharge home today. Review of Systems Review of Systems: All systems reviewed & are unremarkable except as noted in HPI & below Physical Exam Constitutional: WD/WN, vitals as above no acute distress Eyes: + anicteric sclerae Neck: normal visual inspection Respiratory: Auscultation: lungs clear to auscultation bilaterally Cardiovascular: Rate/Rhythm: regular rate and regular rhythm Heart Sounds: normal S1 and normal S2 Extremities: no edema Gastrointestinal (Abdomen): Inspection/Auscultation: + abdomen distended Percussion/Palpation: abdomen nontender and no guarding Musculoskeletal: wound vac rt foot Skin: no rashes, warm and dry Neurologic: no focal motor deficits Psychiatric: Orientation: alert and oriented x 3 Results & Data Vital Signs (Past 12 Hours) Vital Signs Temp Pulse Pulse Pulse Resp BP Pulse Ox 07/08/22 11:35 36.4 C L 70 19 121/83 93 07/08/22 06:02 70 07/08/22 08:00 07/08/22 07:57 36.5 C 70 19 142/78 H 98 07/08/22 03:40 36.8 C 70 18 117/63 95 O2 Del Method O2 Flow Rate 07/08/22 11:35 Nasal Cannula 4 07/08/22 06:02 07/08/22 08:00 Nasal Cannula 4 07/08/22 07:57 Nasal Cannula 4 07/08/22 03:40 CPAP Laboratory Results Laboratory Results - last 24 hr 07/07/22 07/07/22 07/07/22 14:31 17:40 20:23 POC Glucose 119 H 110 H 74 07/08/22 07/08/22 07/08/22 06:12 07:44 11:44 POC Glucose 113 H 134 H 238 H PG Care Time/CCT Total # of Minutes Spent Total Time Spent with Patient: Total time spent is greater than 50% in coordination of care (as documented) at patient's floor/unit and/or counseling patient: Coding Level of Care Code 89251 SUB INP/OBS CARE 2/35MIN Diagnoses End-stage renal disease on hemodialysis N18.6; Z99.2 Infection of right foot L08.9 Hypotension I95.9
--- NOTE | 2022-07-10 09:44 | Coding Query ---
SEPSIS To promote full compliance with coding requirements relating to patient care, physician participation is requested in all cases of hims coder uncertainty. Please assist us with the question(s) below: The medical record reflects the following clinical findings: Diabetic zachariahtent adm with acute osteomyelitis on 06/28. 06/29 Hospitalist progress note documented developing Sepsis and hypotension with rising lactic acid level. Please check below the diagnosis that was treated below, if applicable, and whether the diagnosis was present on admission. Thanks jadon waddell. Val[facility] [place] [facility] ____ ( )Bacteremia (Nonspecific laboratory finding of bacteria in the blood) Specify Organism ( ) Present on Admission ( ) Not present on admission ( ) Unable to clinically determine ( ) Septicemia (Systemic disease associated with the presence of pathogenic microorganisms in the blood): Specify Organism ( ) Present on Admission ( ) Not present on admission ( ) Unable to clinically determine ( ) Sepsis Specify Organism Specify Associated Condition/Diagnosis ( ) Present on Admission ( ) Not present on admission ( ) Unable to clinically determine ( ) Severe Sepsis (Sepsis associated with acute organ dysfunction) Specify Organism Specify Associated Condition/Diagnosis ( ) Present on Admission ( ) Not present on admission ( ) Unable to clinically determine ( ) Septic Shock (Severe sepsis with acute circulatory failure, unexplained by other causes) ( ) Present on Admission ( ) Not present on admission ( ) Unable to clinically determine ( ) Other, patient has: MTDD
--- NOTE | 2022-07-10 09:45 | Coding Query ---
Unexpected complication of surgery Your help is needed for correct coding of this account; please clarify if the patients Post-operative Ileus was: ( ) expected out of the surgery ( ) unexpected complication from the surgery ( )other please specify Thank you CHITRA Ryder CCS
== END 2022-07-08 13:41 | disposition home health service (06) | DRG 500 ==
LOC: SUATTDRO 03:38 → 2W 03:38 → SUATTDRO 04:13 → 1E 06-29 11:30 → 2S 07-01 18:15 → 2N 07-06 15:11